=== PATIENT | male | born 1965 | race American Indian/Alaskan Native ===

== ENCOUNTER 2017-11-11 18:01 | Emergency (ER) | payer OTHER ==
[~2017-11-11] VITALS: Ht 177.8 cm; Wt 78.0 kg
[~2017-11-11 18:01] MED LIST: BACTRIM DS TAB1 EACH PO; BACTROBAN15 GM TP; CENTRUM ULTRA1 EAC1 PO; CIPRO500 MG PO; CLINDAMYCIN HC300 MG PO; DOXYCYCLINE MO100 M1 PO; FLUCONAZOLE100 MG PO; HYDROCODON-ACE1 EA10 PO; HYDROCODON-ACE1 EAC8 PO; IMODIUM A-1 MG/7.5 M PO; LANTUS SOL100 UNIT/1 SUB-Q; LANTUS100 UNIT/1; LEVAQUIN750 MG PO; LISINOPRIL10 MG PO; LOPERAMIDE2 MG PO; NOVOLOG FL100 UNIT/1 SUB-Q; NOVOLOG MI100 UNIT/1 SUB-Q; NOVOLOG100 UNITS/ SUB-Q; OXYCODONE HCL5 MG PO; SULFAMETHOXAZO1 EAC1 PO; TRAMADOL HCL50 MG PO; VITAMIN B122500 MCG PO; VITAMIN C500 M1 PO
== END 2017-11-11 18:21 | disposition left against medical advice (07) ==
LOC: ED 18:01
DX: M54.5 Low back pain (principal); Z53.21 Procedure and treatment not carried out due to patient leaving prior to being seen by health care provider; E11.9 Type 2 diabetes mellitus without complications; I10 Essential (primary) hypertension; Z90.89 Acquired absence of other organs; Z87.891 Personal history of nicotine dependence; Z88.0 Allergy status to penicillin; Z79.4 Long term (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; Z89.512 Acquired absence of left leg below knee
CPT/HCPCS: 99281

== ENCOUNTER 2018-01-13 07:40 | Emergency (ER) | payer OTHER ==
[~2018-01-13] VITALS: Ht 177.8 cm; Wt 78.5 kg
[2018-01-13] MEDS ORDERED: LANTUS100 UNITS/ SUB-Q (07:56)
--- OUTSIDE RECORDS SUMMARY | 2018-01-13 09:45 | XMS | Clinical Summary ---
Demographics + + + | Address | [address] | | | [place] [address] | + + + | Home Phone | | + + + | Preferred Language | Unknown | + + + | Marital Status | Single | + + + | Sikhism Affiliation | 1077 | + + + | Race | Unknown | + + + | Ethnic Group | Unknown | + + + Author + + + | Author | [facility] | + + + | Organization | [facility] | + + + | Address | Unknown | + + + | Phone | Unavailable | + + + Support + + +---------+ + | Name | Relationship | Address | Phone | + + +---------+ + | Katherine Duran | ECON | Unknown | | + + +---------+ + | Sarah Hanson | ECON | Unknown | | + + +---------+ + Care Team Providers + +------+ + | Care Distresser Name | Role | Phone | + +------+ + | Estrella Light PA-C | PP | | + +------+ + Allergies + + + + + + | Active Allergy | Reactions | Severity | Noted | Comments | | | | | Date | | + + + + + + | Penicillins | Hives | High | 03/04/20 | | | | | | 15 | | + + + + + + Current Medications + + +--------+---------+------+------+-------+ | Prescription | Sig. | Disp. | Refills | Star | End | Statu | | | | | | t | Date | s | | | | | | Date | | | + + +--------+---------+------+------+-------+ | insulin aspart | Inject 15 Units into | | | | | Activ | | (NOVOLOG FLEXPEN) | the skin 3 (three) | | | | | e | | 100 UNIT/ML | times daily before | | | | | | | injection | meals. | | | | | | + + +--------+---------+------+------+-------+ | insulin glargine | Inject 20 Units into | | | | | Activ | | (LANTUS SOLOSTAR) | the skin nightly. | | | | | e | | 100 UNIT/ML | | | | | | | | injection | | | | | | | + + +--------+---------+------+------+-------+ | loperamide | Take 2 mg by mouth 4 | | | | | Activ | | (IMODIUM) 2 MG | (four) times daily | | | | | e | | capsule | as needed for | | | | | | | | Diarrhea. | | | | | | + + +--------+---------+------+------+-------+ | lisinopril | Take 1 tablet by | 30 | 11 | 09/0 | | Activ | | (ZESTRIL) 20 MG | mouth daily. | tablet | | 7/20 | | e | | tablet | | | | 16 | | | + + +--------+---------+------+------+-------+ | sildenafil | Take 1 tablet by | 10 | 11 | 09/0 | | Activ | | (VIAGRA) 50 MG | mouth as needed for | tablet | | 7/20 | | e | | tablet | Erectile | | | 16 | | | | | Dysfunction. | | | | | | + + +--------+---------+------+------+-------+ Active Problems + + + | Problem | Noted Date | + + + | Cellulitis and abscess of foot | 12/15/2016 | + + + | Osteomyelitis (HCC) | 12/15/2016 | + + + | Essential hypertension | 03/04/2015 | + + + | Type II diabetes mellitus, uncontrolled | 03/04/2015 | + + + Family History + + +------+ + | Medical History | Relation | Name | Comments | + + +------+ + | Diabetes type II | Maternal | | | | | Grandfath | | | | | er | | | + + +------+ + + +------+--------+ + | Relation | Name | Status | Comments | + +------+--------+ + | Maternal Grandfather | | | | + +------+--------+ + Social History + +-------+ +--------+------+ | Tobacco Use | Types | Packs/Day | Years | Date | | | | | Used | | + +-------+ +--------+------+ | Never Smoker | | | | | + +-------+ +--------+------+ + +---+---+---+ | Smokeless Tobacco: | | | | | Never Used | | | | + +---+---+---+ + + +---------+ + | Alcohol Use | Drinks/We | oz/Week | Comments | | | ek | | | + + +---------+ + | No | | | | + + +---------+ + + + + | Sex Assigned at | Date Recorded | | | | + + + | Not on file | | + + + Last Filed Vital Signs + + + + | Vital Sign | Reading | Time Taken | + + + + | Blood Pressure | 134/88 | 12/20/2016 11:44 AM PDT | + + + + | Pulse | 84 | 12/20/2016 11:44 AM PDT | + + + + | Temperature | 37 C (98.6 F) | 12/20/2016 11:44 AM PDT | + + + + | Respiratory Rate | 16 | 12/20/2016 11:44 AM PDT | + + + + | Oxygen Saturation | 98% | 12/20/2016 11:44 AM PDT | + + + + | Inhaled Oxygen | - | - | | Concentration | | | + + + + | Weight | 88.5 kg (195 lb 1.7 | 12/19/2016 3:58 AM PDT | | | oz) | | + + + + | Height | 177.8 cm (5' 10") | 12/15/2016 3:39 AM PDT | + + + + | Body Mass Index | 27.99 | 12/19/2016 3:58 AM PDT | + + + + Plan of Treatment + + + + + | Health Maintenance | Due Date | Last Done | Comments | + + + + + | Diabetic Eye Exam | | | | | | 7 | | | + + + + + | Diabetic Foot Exam | | | | | | 7 | | | + + + + + | Microalbumin | | | | | Screening | 7 | | | + + + + + | Vaccine: | | | | | Dtap/Tdap/Td (1 - | 6 | | | | Tdap) | | | | + + + + + | Vaccine: | | | | | Pneumococcal 19-64 | 6 | | | | (PPSV23 only) Medium | | | | | Risk (1 of 1 - | | | | | PPSV23) | | | | + + + + + | Statin Therapy | | | | | (optimal intensity) | 6 | | | + + + + + | Hemoglobin A1c | | 12/15/2016 | | | | 7 | | | + + + + + | Colon Cancer | | | | | Screening | 7 | | | | (Colonoscopy) | | | | + + + + + | Vaccine: Influenza | | | | | (Season Ended) | 8 | | | + + + + + Results Not on filefrom Last 3 Months Insurance + +--------+ +------+-------+ + | Payer | Benefi | Subscriber | Type | Phone | Address | | | t Plan | ID | | | | | | / | | | | | | | Group | | | | | + +--------+ +------+-------+ + | MEDICAID | [place] | xxxxxxxx | | | [address] | | | N | | | | [place] | | | [place] | | | | [address] | | | INSTRUCTIONAL SUPPORT TECHNICIAN | | | | | + +--------+ +------+-------+ + | [employer] | YELLOW | xxxxxx | | | | | PLANS | [place] | | | | | + +--------+ +------+-------+ + + +--------+ +--------+ + + | Guarantor Name | Accoun | Relation to | Date | Phone | Billing Address | | | t Type | Patient | of | | | | | | | | | | + +--------+ +--------+ + + | KULDIP MC | Person | Self [birth year] | Home: | [address] | | | al/Fam | | [phone] | [phone] | [place] | | | vikas | | | [phone] | [phone] | + +--------+ +--------+ + +
--- OUTSIDE RECORDS SUMMARY | 2018-01-13 09:45 | XMS | Clinical Summary ---
Demographics + + + | Address | [address] | | | [place] [address] | + + + | Home Phone | | + + + | Preferred Language | Unknown | + + + | Marital Status | Single | + + + | Samaritan Affiliation | 1077 | + + + | Race | Unknown | + + + | Ethnic Group | Unknown | + + + Author + + + | Author | [facility] | + + + | Organization | [facility] | + + + | Address [...] Team Providers + +------+ + | Care Anchorman Name | Role | Phone | + [...] | | [place] | | | | [address] | | | MEDICAL SCHEDULER | | | | | + +--------+ +------+-------+ + | [facility] | YELLOW | xxxxxx | | [...] | Self | [birth year] | Home: | [address] | | | al/Fam | | [phone] | [phone] | [place] | | | [place] | | | [phone] | + +--------+ +--------+ + +
--- NOTE | 2018-01-13 23:30 | EKG ---
[facility] [address] [facility] [place] [address] Signed Sinus tachycardia Right axis deviation T wave abnormality, consider inferior ischemia Abnormal ECG No previous ECGs available Confirmed by PRIYANKA TAYLOR MD ([id number]) on 01/13/2018 11:29:46 PM Electronically Signed By: PRIYANKA TAYLOR MD 01/13/18 2330 PATIENT NAME: JO ANN MC Electrocardiogram DATE OF : 69 PHYSICIAN: PRIYANKA TAYLOR MD REPORT #: [id number] REPORT IS CONFIDENTIAL AND NOT TO BE RELEASED WITHOUT AUTHORIZATION
== END 2018-01-13 10:54 | disposition short-term general hospital (02) ==
LOC: ED 07:40
DX: I21.4 Non-ST elevation (NSTEMI) myocardial infarction (principal); E11.9 Type 2 diabetes mellitus without complications; I10 Essential (primary) hypertension; Z87.891 Personal history of nicotine dependence; Z88.0 Allergy status to penicillin; Z79.4 Long term (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
CPT/HCPCS: 71045; 80053; 83690; 84484; 85025; 85610; 93005; 93010; 96372; 96374; 99285; J1650; J2270; J7040

== ENCOUNTER 2018-03-13 22:27 | Inpatient (IN) | payer OTHER ==
[~2018-03-13] VITALS: Ht 177.8 cm; Wt 73.9 kg
[~2018-03-13 22:27] MED LIST changes: +LANTUS100 UNITS/ SUB-Q
[2018-03-13] MEDS ORDERED: LISINOPRIL5 MG PO (23:35)
--- NOTE | 2018-03-14 05:15 | NUR ---
PATIENT TO UNIT VIA STRETCHER, REQUIRED MINIMAL ASSISTANCE WITH TRANSFER TO BED. RESTING IN BED WITH EYES CLOSED. DENIES PAIN AT THIS TIME. ASSESSMENT DONE, VITALS STABLE. PATIENT DENIES NEEDS AT THIS TIME. CALL LIGHT WITHIN REACH.
--- NOTE | 2018-03-14 07:52 | NUR ---
DR. TAYLOR NOTIFIED OF MAGNESIUM LEVLE OF 1.3 THIS AM. ORDER REC'D FOR IV MAGNESIUM REPLACEMENT.
--- NOTE | 2018-03-14 08:40 | NUR ---
PATIENT SLEEPING UPON INITIAL ASSESSMENT AND DIFFICULT TO AWAKEN. PT FINALLY AWAKENS APPROPRIATELY AND IS RESPONSIVE TO THIS RN. PT IS PLEASANT, ONCE HE IS AWAKE. BREAKFAST ORDERED FOR PATIENT. VITALS AND ASSESMENT COMPLETE. HR NOTED TO BE TACHYCARDIC, RANGING FROM 105-110. SP02 IS 100% ON ROOM AIR. PT DENIES PAIN OR SHORTNESS OF BREATH AT THIS TIME. STOOL SAMPLE NEEDED. IV MAG AND IV FLAGYL STARTED. PLAN OF CARE DISCUSSED WITH PATIENT. PT REMAINS IN ISOLATION FOR C-DIFF PRECAUTIONS. CALL LIGHT WITHIN REACH. CONTINUE TO MONITOR.
--- NOTE | 2018-03-14 10:07 | NUR ---
PATIENT RESTING AT THIS TIME. PT ATE 100% OF HIS BREAKFAST AND FALLS BACK TO SLEEP. PT NOTES THAT HE NORMALLY DOES NOT AWAKEN UNTIL LATE MORNING. SP02 97% ON ROOM AIR. CONTINUE TO MONITOR.
--- NOTE | 2018-03-14 11:34 | NUR ---
PATIENT ASKED IF HE WOULD STAND AT BEDSIDE TO VOID. PT REFUSING TO NEED TO VOID AT THIS TIME. PATIENT TOLD THAT IF HE WERE NOT TO VOID BY 1400, HE WOULD NEED TO STAND AND TRY. PT VOIDED 700 ML IN ER BETWEEN THE HOURS OF [phone]. HEART RATE CURRENTLY 95 AND LAST BP 125/77. PT STATES HE IS OVERALL TIRED AND WANTS TO SLEEP. PT DENIES WANTING LUNCH AT THIS TIME. REQUESTED PATIENT TO CALL WHEN HE IS READY TO ORDER FOOD. BLOOD SUGAR TO BE CHECKED AT 1200. ASSESSMENT OTHERWISE UNCHANGED.
--- NOTE | 2018-03-14 14:29 | NUR ---
UPDATED DR. TAYLOR ON PATIENT'S STATUS. ORDER REC'D TO TRANSFER PATIENT TO MED/SURG. PT TO TRANSFER TO ROOM 125. PT WILL SHOWER IN NEW ROOM. PT'S SIGNIFICANT OTHER IN ROOM WITH PATIENT. PT STILL NEEDS TO PROVIDE A STOOL SAMPLE. CONTINUE TO MONITOR.
--- NOTE | 2018-03-14 15:00 | NUR ---
PT WAS SITTING ON SIDE OF BED, WITH HIS SIG. OTHER PRESENT. PT STATED HE FELT BETTER, AND THAT HE HAD NO PAIN AT THE MOMENT. WE TALKED OF HIS SON-SVETLANA PORRAS. PT STATED THAT HE WILSHES HE WOULD STAY IN BETTER CONTACT, HE HASN'T SEEN HIM FOR A WHILE. I EXTENDED A BLESSING, WILL FOLLOW NEEDED
[2018-03-14] MEDS ORDERED: PROBIOTIC1 EAC1 PO (15:02)
--- NOTE | 2018-03-14 15:07 | NUR ---
Medications reconciled at admission by pharmacist through patient interview
--- NOTE | 2018-03-14 15:29 | NUR ---
REPORT GIVEN TO MAXX COBB ON MED/SURG. ALL BELONGINGS WILL BE TAKEN WITH PATIENT. PT TO TRANSFER IN BED AND SHOWER ON MED/SURG. PT NOT TRANSFERRING ON TELE.
--- NOTE | 2018-03-14 15:30 | NUR ---
PT ARRIVED TO FLOOR VIA BED. ALERT AND ORIENTED, DENIES PAIN, NAUSEA, OR OTHER CONCERNS. LEFT BKA STUMP WITHOUT ANY BREAKDOWN, SKIN GROSSLY INTACT. PT DENIES TINGLING OR NUMBNESS ANYWHERE. FAMILY AT BEDSIDE. BOTH IV SITES FLUSH WELL, DRESSING CDI. CALL LIGHT WITHIN REACH.
--- NOTE | 2018-03-14 17:40 | NUR ---
PT SITTING UP IN BED EATING DINNER. SHOWERED PRIOR TO DINNER WITH ASSISTANCE FROM FAMILY. DENIES NEEDS OR CONCERNS AT THIS TIME. IV INFUSING WNL. CALL LIGHT WITHIN REACH.
--- NOTE | 2018-03-14 17:50 | NUR ---
PATIENT'S FAMILY MEMBER ASSISTED PATIENT UP TO SHOWER AND BACK TO BED. PATIENT SITTING UP IN BED EATING DINNER, CALL LIGHT IN REACH. NO OTHER NEEDS AT THIS TIME.
--- NOTE | 2018-03-14 20:30 | NUR ---
PATIENT RESTING QUIETLY, EYES CLOSED, RESPIRATIONS EVEN AND REGULAR. PATIENTS GIRLFRIEND SITTING AT BEDSIDE. TOOK OUT PATIENT'S DINNER TRAY. PATIENT ATE 80%. CALL LIGHT IN REACH.
--- NOTE | 2018-03-14 22:16 | NUR ---
VITALS AND I&OS DONE AND CHARTED. BEDSIDE TABLE AND CALL LIGHT WITHIN REACH. PT ASKED FOR A SAND BOX LUNCH. I WILL TAKE IT TO HIM WHEN IT GETS TO THE FLOOR.
--- NOTE | 2018-03-15 00:45 | NUR ---
PATIENT'S GIRLFRIEND CAME TO THE NURSES DESK TO LET US KNOW PATIENT HAD DIARRHEA. PATIENT SITTING IN BED WITH LARGE AMOUNT OF LIQUID STOOL IN THE BED. PATIENT HELPED INTO THE BATHROOM AND RINSED OFF WITH SHOWER. LINEN CHANGED, PATIENT BACK TO BED WITH ATTENDS ON, AND STOOL SAMPLE SENT TO LAB. PATIENT'S UNDERWEAR AND SPORT SHORTS THROWN AWAY AT PATIENT'S REQUEST, THIS WAS ALSO HEARD BY MARY GATES. PATIENT NOW RESTING QUIETLY.
--- NOTE | 2018-03-15 02:01 | NUR ---
PATIENT RESTING QUIETLY, EYES CLOSED, RESPIRATIONS EVEN AND REGULAR. CALL LIGHT IN REACH.
--- NOTE | 2018-03-15 04:00 | NUR ---
PATIENT RESTING QUIETLY. RESPIRATIONS REGULAR AND EVEN. PATIENT'S GIRLFRIEND AT BEDSIDE AND CALL LIGHT IN REACH.
--- NOTE | 2018-03-15 07:00 | NUR ---
PATIENT HAS HAD NO C/O PAIN THE ENTIRE SHIFT. PATIENT HAD ONE EPISODE OF LIQUID STOOL INCONTINENCE IN THE BED AND WAS WASHED UP IN THE SHOWER AND LINENS CHANGED, AND ATTENDS PUT IN PLACE. SECOND EPISODE OF DIARRHEA PATIET WAS ABLE TO MAKE IT TO THE COMMODE. PATIENT VOIDING FINE USING THE URINAL. BOTH OF PATIENT'S IV'S FLUSH WELL AND PATIENT IS TAKING IN GOOD PO INTAKE AND OF FLUIDS AND SOLID FOOD. PM BLOOD SUGAR 118 AND DID NOT NEED COVERAGE. PATIENT'S GIRLFRIEND HAS REMAINED WITH HIM THROUGH THE NIGHT. BOWEL TONES ACTIVE AND LUNGS ARE CLEAR.
--- NOTE | 2018-03-15 07:52 | NUR ---
DID PATIENT'S BLOOD SUGAR CHECK. ORDERED HIS BREAKFAST. NOW IS RESTING. CAREGIVER IN ROOM SLEEPING.
--- NOTE | 2018-03-15 09:00 | NUR ---
PT IS IN BED AND AGITATED WHEN ASKED QUESTIONS. PT DOES NOT WANT CARE THIS MORNING. NO APPARENT DISTRESS, MEDICATIONS TAKEN WITH SOME RESISTANCE. ENCOURAGED PT TO EAT THIS AM DUE TO LONG ACTING INSULIN GIVEN.
[2018-03-15] MEDS ORDERED: METRONIDAZOLE500 MG PO (09:29)
--- NOTE | 2018-03-15 10:51 | NUR ---
TOOK OUT PATIENT'S IVS. HE IS GETTING DRESSED CAREGIVER IS IN ROOM. AFTER HE IS READY I WILL TAKE HIM OUT TO HIS CAR.
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
== END 2018-03-15 11:13 | disposition home or self-care (01) | DRG 872 ==
LOC: ED 22:27 → CCU 03-14 04:37 → MS 03-14 15:35
PROVIDERS: ADMIT Internal Medicine
DX: A41.9 Sepsis, unspecified organism (principal); A04.9 Bacterial intestinal infection, unspecified; N17.9 Acute kidney failure, unspecified; E87.5 Hyperkalemia; E80.6 Other disorders of bilirubin metabolism; E11.65 Type 2 diabetes mellitus with hyperglycemia; E83.42 Hypomagnesemia; I10 Essential (primary) hypertension; R82.71 Bacteriuria; Z88.0 Allergy status to penicillin; Z91.19 Patient's noncompliance with other medical treatment and regimen; Z89.512 Acquired absence of left leg below knee; Z79.4 Long term (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; Z79.899 Other long term (current) drug therapy
CPT/HCPCS: 36415; 74176; 80053; 81001; 82010; 83036; 83605; 83690; 83735; 85025; 87040; 87045; 87046; 87077; 87088; 87177; 87186; 87205; 87209; 87493; 96361; 96374; 96375; 99285; J0696; J1650; J1815; J2405; J3475; J7030

== ENCOUNTER 2019-03-29 06:11 | Emergency (ER) | payer OTHER ==
[~2019-03-29] VITALS: Ht 177.8 cm; Wt 81.7 kg
[~2019-03-29 06:11] MED LIST changes: +CEROVITE SENIO1 EACH PO; +FLECTOR1 EACH TOP; +GLUCOSE BITS1 GM PO; +LEVOFLOXACIN500 MG PO; +LISINOPRIL5 MG PO; +LO-DOSE ASPIRIN81 MG PO; +METRONIDAZOLE500 MG PO; +PRINIVIL10 MG PO; +PROBIOTIC1 EAC1 PO
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
[2019-03-29] MEDS ORDERED: CEPHALEXIN500 MG PO (06:35)
[2019-03-29] MEDS ORDERED: BACTRIM DS TAB1 EACH PO (06:35)
== END 2019-03-29 06:49 | disposition home or self-care (01) ==
LOC: ED 06:11
DX: S00.86XA Insect bite (nonvenomous) of other part of head, initial encounter (principal); I10 Essential (primary) hypertension; E11.36 Type 2 diabetes mellitus with diabetic cataract; Z87.891 Personal history of nicotine dependence; Z88.0 Allergy status to penicillin; Z79.899 Other long term (current) drug therapy; Z79.4 Long term (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; W57.XXXA Bitten or stung by nonvenomous insect and other nonvenomous arthropods, initial encounter
CPT/HCPCS: 99281; Q0163

== ENCOUNTER 2019-07-22 09:30 | Day surgery (SDC) | payer OTHER ==
[~2019-07-22] VITALS: Ht 177.8 cm; Wt 81.7 kg
[~2019-07-22 09:30] MED LIST changes: +CEPHALEXIN500 MG PO
[2019-07-22] MEDS ORDERED: HYDROCODON-ACE1 EA10 PO (12:19)
--- NOTE | 2019-07-22 16:05 | EKG ---
[facility] [address] [facility] [place] [address] Signed Sinus rhythm with frequent premature ventricular complexes Otherwise normal ECG When compared with ECG of 03-JUN-2018 20:19, premature ventricular complexes are now present Vent. rate has decreased BY 42 BPM Criteria for Septal infarct are no longer present Confirmed by MICHELLE BE DO ([id number]) on 07/22/2019 4:05:17 PM Electronically Signed By: MICHELLE BE DO 07/22/19 1605 PATIENT NAME: JO ANN MC NUNO Electrocardiogram DATE OF : 69 PHYSICIAN: MICHELLE BE DO REPORT #: [id number] REPORT IS CONFIDENTIAL AND NOT TO BE RELEASED WITHOUT AUTHORIZATION
--- NOTE | 2019-07-23 07:35 | OR ---
[facility] [address] [place], [place] [address] Signed DATE OF OPERATION: 07/22/2019 SURGEON: Payton Vines MD PREOPERATIVE DIAGNOSIS: Decubitus ulcer, left fibular head. POSTOPERATIVE DIAGNOSIS: Decubitus ulcer, left fibular head. PROCEDURE PERFORMED: Debridement and excision of ulcer with debridement of skin, subcutaneous tissue, and bone. GROUNDS MAINTENANCE SUPERVISOR: Estrella Mills PA-C. ANESTHESIA: General. TOURNIQUET TIME: 20 minutes. BRIEF HISTORY: Kuldip is a 54-year-old severe diabetic with history of a left BKA. His prosthesis was causing pressure over the fibular head and he ultimately developed an ulcer that drained. Extensive nonoperative treatment was attempted without substantial relief. The wound did not heal. He was unable to wear his prosthesis secondary to pain and continued drainage. Risks and benefits of operative debridement were discussed with him. We discussed excising the skin ulcer underlying soft tissue and perhaps some of the fibular head to cause this pressure. He elected to proceed. DESCRIPTION OF PROCEDURE: Once consent was obtained, he was taken to the operating room. After adequate anesthesia, he was placed on operating room table. All downside pressure points were well padded. A well-padded proximal thigh tourniquet was placed and the leg was prepped and draped in a standard sterile fashion. Leg was exsanguinated using Esmarch bandage. Tourniquet was inflated to 250 mmHg. An elliptical incision was then designed around the ulcer itself and extended about 2 cm proximal and distally. This was taken through skin, subcutaneous tissue, and the ulcer was incised in total. Deep cultures were taken Electronically Signed By: PAYTON VINES MD 07/23/19 0735 PATIENT NAME: KULDIP MC OPERATIVE REPORT DATE OF : 69 REPORT #: [id number] PHYSICIAN: PAYTON VINES MD PCP: JUDY GUTIÉRREZ REPORT IS CONFIDENTIAL AND NOT TO BE RELEASED WITHOUT AUTHORIZATION [facility] [address] [place], [place] [address] Signed and some soft amorphous tissue. Underlying scar over the fibular head was completely intact and I saw no tracking down to the bone. We did excise this scar base. No bursa was countered at all. The fibular head was then identified and the periosteum was incised longitudinally. This was then elevated anteriorly and posteriorly. Care was taken to stay completely away from the peroneal nerve. The small osteotomes were then used to remove about 3 mm of bone laterally. This was then smoothed using the rongeur and it was packed with bone wax. Once this was accomplished, the wound was copiously irrigated with povidone-iodine dilute solution followed by normal saline. Periosteum was then closed back over the fibular head utilizing 3-0 Monocryl. The skin and subcutaneous tissue were then closed using large 2-0 nylon sutures. This was done using horizontal mattress sutures. The bone was then dressed with a SAMIA wound VAC dressing and Abelardo wrap. He tolerated the procedure well. All sponge, needle, and instrument counts were correct. Payton Vines MD BA/MODL /[id number] Copies: ~ Electronically Signed By: PAYTON VINES MD 07/23/19 0735 PATIENT NAME: KULDIP MC OPERATIVE REPORT DATE OF : 69 REPORT #: [id number] PHYSICIAN: PAYTON VINES MD PCP: JUDY GUTIÉRREZ REPORT IS CONFIDENTIAL AND NOT TO BE RELEASED WITHOUT AUTHORIZATION
== END 2019-07-22 18:05 | disposition home or self-care (01) ==
LOC: OPS 09:30 → DS 09:30 → OPS 13:30 → DS 13:30 → OPS 18:05
PROVIDERS: Specialist
PROC: 0QBK0ZZ Excision of Left Fibula, Open Approach (ICD-10-PCS; principal; 2019-07-22 13:30)
DX: L89.899 Pressure ulcer of other site, unspecified stage (principal); E11.51 Type 2 diabetes mellitus with diabetic peripheral angiopathy without gangrene; I10 Essential (primary) hypertension; Z88.0 Allergy status to penicillin; Z79.4 Long term (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; Z79.899 Other long term (current) drug therapy; Z87.891 Personal history of nicotine dependence
CPT/HCPCS: 00400; 80053; 83036; 85025; 85651; 86140; 87070; 87075; 87205; 93005; 93010; J0330; J0690; J1100; J1720; J1885; J2250; J2405; J2704; J2765; J3010; J7120

== ENCOUNTER 2019-08-11 16:16 | Emergency (ER) | payer OTHER ==
[~2019-08-11] VITALS: Ht 177.8 cm; Wt 81.7 kg
--- OUTSIDE RECORDS SUMMARY | ~2019-08-11 | XMS | Encounter Summary ---
Demographics + + + | Address | [address] | | | [place] [address] | + + + | Home Phone | | + + + | Preferred Language | Unknown | + + + | Marital Status | Single | + + + | Hinduism Affiliation | 1077 | + + + | Race | Unknown | + + + | Ethnic Group | Unknown | + + + Author + + + | Author | [facility] | | | and [place] | + + + | Organization | [facility] | | | [...] Team Providers + +------+ + | Care Civil Engineer In Training Name | Role | Phone | + [...] antibody | [address] [place], | | | | | positive | [place], [place] | [place] [address] | | | | | Chronic | [address] [place] | [place], | | | | | diarrhea | [place], [place] | [place] [address] | | | | | Procedures | [address] | Phone: | | | | | [place] | Phone: | [phone] | | | | | COLONOSCOPY | [phone] | Fax: | | | | | FLX DX | Fax: | [phone] | | | | | W/COLLJ SPEC | [phone] | | | | | | WHEN PFRMD | | | | | | | [place] | | | | | | | COLONOSCOPY | | | | | | | W/BIOPSY | | | | | | | SINGLE/MULTI | | | | | | | PLE [place] | | | | | | | COLSC FLX | | | | | | | W/RMVL OF | | | | | | | TUMOR POLYP | | | | | | | LESION SNARE | | | | | | | TQ [place] | | | | | | | ESOPHAGOGAST | | | | | | | RODUODENOSCO | | | | | | | PY TRANSORAL | | | | | | | DIAGNOSTIC | | | | | | | [place] EDG | | | | | | [...] 2015 | | GASTROENTEROLOGY | [address], [place] | (egd/colon ) | | | | [address] [place] | [address] [place], [place] | | | | | [address] [place], [place] | [address] | | | | | [address] | | | | | | [phone] | | | +--------+ + + + [...]
--- OUTSIDE RECORDS SUMMARY | ~2019-08-11 | XMS | Encounter Summary ---
Demographics + + + | Address | [address] | | | [place] [address] | + + + | Home Phone | | + + + | Preferred Language | Unknown | + + + | Marital Status | Single | + + + | Baptism Affiliation | 1077 | + + + | Race | Unknown | + + + | Ethnic Group | Unknown | + + + Author + + + | Author | [facility] | | | and [place] | + + + | Organization | [facility] | | [...] Team Providers + +------+ + | Care Manager Php Name | Role | Phone | + +------+ + PCP | Unavailable | + +------+ + Encounter Details +--------+ + + + + | Date | Type | Department | Care Team | Description | +--------+ + + + + | 05/21/ | Hospital | [facility] | Unknown, | | | 1992 | Encounter | MED CTR XRAY [address] | [place] | | | | | [place] | [phone] | | | | | [place] [address] | | | | | | [phone] | | | +--------+ + + + [...]
--- OUTSIDE RECORDS SUMMARY | ~2019-08-11 | XMS | Encounter Summary ---
Demographics + + + | Address | [address] | | | [place] [address] | + + + | Home Phone | | + + + | Preferred Language | Unknown | + + + | Marital Status | Single | + + + | Synagogue Affiliation | 1077 | + + + | Race | Unknown | + + + | Ethnic Group | Unknown | + + + Author + + + | Author | [facility] | | | and [place] | + + + | Organization | [facility] | | | [...] Team Providers + +------+ + | Care Supervisor Mechanic Boilermaking Name | Role | Phone | + +------+ + PCP | Unavailable | + +------+ + Encounter Details +--------+ + + + + | Date | Type | Department | Care Team | Description | +--------+ + + + + | 05/21/ | Hospital | [facility] | Unknown, | | | 1992 | Encounter | MED CTR XRAY [address] | [place] | | | | | [place] | [phone] | | | | | [place] [address] | | | | | | [phone] | | | +--------+ + + + [...]
--- OUTSIDE RECORDS SUMMARY | ~2019-08-11 | XMS | Encounter Summary ---
Demographics + + + | Address | [address] | | | [place] [address] | + + + | Home Phone | | + + + | Preferred Language | Unknown | + + + | Marital Status | Single | + + + | Jewish Affiliation | 1077 | + + + | Race | Unknown | + + + | Ethnic Group | Unknown | + + + Author + + + | Author | [facility] | | | and [place] | + + + | Organization | [facility] | | | and [...] Team Providers + +------+ + | Care Machine Guide Base Winder Name | Role | Phone | + +------+ + | Estrella Light PA-C | PCP | | + +------+ + Encounter Details +--------+ + + + + | Date | Type | Department | Care Team | Description | +--------+ + + + + | 12/14/ | Hospital | [facility] | [place], | Osteomyelitis of | | 2017 - | Encounter | [facility] | MD [address]avel [address] | foot, left, acute | | | | CARE FLOOR [address] | [address] | ([facility]); Uncontrolled | | 12/20/ | | [address] | [place] [address] | type 2 diabetes | | 2017 | | [place], [place] | [phone] | mellitus with | | | | [address] | | hyperglycemia, | | | | [phone] | | unspecified long | | | | | | term insulin use | | | | | | status ([facility]); Renal | | | | | | [...] 1933 Date of Service: 12/20/161538 Status: Addendum Supervisor Maintenance: Bunny Chaney MD (Physician) Related Notes: Original Note by Bunny Chaney MD (Physician) filed at 12/26/16 0644 [facility] Service: Hospitalist Physician Discharge Summary Patient ID: Kuldip Smith [id number] y.o. 1965 Admit date: 12/14/2016 Discharge [...] been approved, which should be given from [facility] ec until further approval from insurance. Also [...] up: Estrella Light PA-C [address] [place] [address] Rebeca Reza MD [address] [facility] [address] Schedule an appointment as soon as possible for a visit in 10 days Dictation and box blank machine feeder or software, [employer], used which may contain error for similar [...] - AMPUTATION; Surgeon: Walter Fernandez DPM; Location: [facility] MAIN OR; Service: Podiatry; Laterality: Left; [...] Management by Jenny Vaughan RN at 12/20/16 6119 Author: Jenny Vaughan RN Service: (none) Author Type: Registered Nurse Filed: 12/20/16 6887 Date of Service: 12/20/161538 Status: Signed Supervisor Maintenance: Jenny Vaughan RN (Registered Nurse) 1610 - Received call from [facility] stating they are now unable to accept pa tient due to a "freeze on admits". They are aware patient has been discharged and is en rou te to home. They are still unable to accept. Call placed to [facility] OPP rega rding need for services. They state pt will need to arrange wound care/dressing changes thr ough his PCP per insurance requirements. Voicemail left for Coby at [facility] to return call. Will need to call back in morning to schedule appointment as clinic is currently closed. onver ruben Transaction, Provider Unknown - 12/20/2016 3:39 PM PDT Case Management by Mirlande Prescott RN at 12/20/16 0815 Author: Mirlande Prescott RN Service: (none) Author Type: Registered Nurse Filed: 12/21/16 0808 Date of Service: 12/20/16 1539 Status: Signed Supervisor Maintenance: Mirlande Prescott RN (Registered Nurse) 0800: Tc to pt's PCP, Coby Light, with [facility], to updat e about [facility] not being able to admit pt. Coby states she and Charlotte will work on getting pt the appropriate wound vac care he needs, they are going to try and get pt into O P wound therapy with [facility] or maybe to OP in [place]. Coby states she will als o call [facility] as to when they can admit pt under their services. Maribel onver ruben Transaction, Provider Unknown - 12/20/2016 1:03 PM PDT Progress Notes by Rachael Molina RN at 12/20/16 1303 Author: Rachael Molina RN Service: Wound/Ostomy Care Author Type: Registered Nurse Filed: 12/20/16 1311 Date of Service: 12/20/16 1303 Status: Signed Supervisor Maintenance: Rachael Molina RN (Registered Nurse) Wound care in to switch patient out to portable wound vac unit. This is a sol vac on l oan from [facility]. Explained to patient when his insurance approves his home vac unit, that t his sol vac is to be returned via [employer]. Instructions given in detail, voiced candelaria frias. Photo taken of tracking number and faxed to Alicia [facility] rep. Instructions on how to use the [...] for further protection. Hospital vac dc'd in [facility] express: #[id number] Rachael Molina RN, ON 12/20/2016 1:10 PM onver ruben Transaction, Provider Unknown - 12/20/2016 11:34 AM PDT Case Management by Mirlande Prescott RN at 12/20/16 1134 Author: Mirlande Prescott RN Service: (none) Author Type: Registered Nurse Filed: 12/20/16 1459 Date of Service: 12/20/16 1134 Status: Addendum Supervisor Maintenance: Mirlande Prescott RN (Registered Nurse) Related Notes: Original Note by Mirlande Prescott RN (Registered Nurse) filed at 12/20/16 114 9 Per rounding with pt, he will be d/c home today. Pt states his mother will be providing tra nsportation home. Wound vac has been approved by [facility]. [facility] has been set up, and they have been notified about d/c, pt may not be able t o be admitted until . Pt's wound dressing is due Monday. Tc to Angie with wound care, it's not ideal that pt's dressing doesn't get changed until , but it is ok to wait. Dr Chaney was notified and agrees with plan. Tc to Coby [phone] and Charlotte [phone] with [facility]/mannie pickens nd left mssgs of pt's d/c Today. Faxed AVS to [facility] Maribel Iqra Mcgregor PT - 12/20/2016 10:07 AM PDTFormatting of this note might be different from th e original. Therapy Progress Note by Karina Zabala PT at 12/20/16 1007 Author: Karina Zabala PT Service: (none) Author Type: Physical Therapist Filed: 12/20/16 1037 Date of Service: 12/20/16 1007 Status: Signed Supervisor Maintenance: Karina Zabala PT (Physical Therapist) 12/20/16 1007 [...] (none) Author Type: Physical Therapist Filed: 12/19/16 7945 Date of Service: 12/19/166 Status: Signed Supervisor Maintenance: Natalia Marte PT (Physical Therapist) 12/19/16 1646 PT Last Visit PT Received On 12/19/16 Reason for Treatment Other (comment) (L foot osteomyelitis) Requires PT Follow Up Awaiting tx order Follow up PT Only? Yes (Assistive device assessment) Focus for Next Treatment Equipment Trial;Stair Training (bilateral axillary crutches and stair training) PT Eval/Reassessment Date 12/19/16 Assistance Required 1 person Political Science Faculty Member Needed No Home Environment Type of Home Home one story Home Exterior Layout 1-3 steps (2 JEISON) Home Interior Layout Lives on main level with bedroom/bathroom Bathroom Shower/Tub Tub/shower unit Bathroom Toilet Raised Bathroom Equipment Grab bars outside of shower/bath;Raised toilet seat Bathroom Accessibility Not accessible Home Equipment Cane single point;Crutches-axillary Prior Function Level of [place] Independent with ADLs;Independent with IADLs;Modified independent wi [...] Eval/Reassessment Date 12/19/16 Assistance Required 1 person Political Science Faculty Member Needed No Precautions LE Precaution(s) LLE Precautions/WB [...] Notes by Rebeca Reza MD at 12/19/16 3107 Author: Rebeca Reza MD Service: Infectious Disease Author Type: Physician Filed: 12/20/16 0639 Date of Service: 12/19/16 5403 Status: Signed Supervisor Maintenance: Rebeca Reza MD (Physician) [facility] Service: Infectious Disease Progress Note Hospital Day: [...] Dec 15 2016 9:30AM Referring Provider Line: [phone] ID: [id number] MRI foot left without contrast [[id number]] Impression 1. Recent amputation of the LEFT 4th toe. 2. No radiographic evidence of residual osteomyelitis in the remaining ossicles of the LEF T forefoot. 3. Moderately extensive vascular calcifications. X-ray foot left [[id number]] PROBLEM LIST Principal Problem: Osteomyelitis (HCC) Active [...] Date of Service: 12/19/16 1103 Status: Signed Supervisor Maintenance: Dell Archer DO (Physician) PROGRESS NOTE 12/19/2016 [...] 1103 Date of Service: 12/19/16914 Status: Addendum Supervisor Maintenance: Jenny Vaughan RN (Registered Nurse) Related Notes: Original Note by Jenny Vaughan RN (Registered Nurse) filed at 12/19/16 1 081 3210 - [facility]. She wi ll be following patient [...] accept patient. Face to face order faxed ([phone]) Charlotte [facility] RN [phone] Alicia with [facility] notified of wound vac placement. Auth form signed by hospitalist and faxed to Alicia. Lilly with [facility] Care notified of patient discharging on oral antibiotics. onver ruben Transaction, Provider Unknown - 12/18/2016 6:45 PM PDT Nurse Progress Note by Gerber Hay RN at 12/18/161844 Author: Gerber Hay RN Service: (none) Author Type: Registered Nurse Filed: 12/18/161847 Date of Service: 12/18/161844 Status: Signed Supervisor Maintenance: Gerber Hay RN (Registered Nurse) Pt resting [...] 12/18/16933 Date of Service: 12/18/16928 Status: Addendum Supervisor Maintenance: Dell Archer DO (Physician) Related Notes: Original [...] 12/18/16899 Date of Service: 12/18/16854 Status: Signed Supervisor Maintenance: Walter Fernandez DPM (Doctor of Podiatric Medicine) [facility] Service: Podiatry Progress Note Hospital Day: LOS: [...] home health care. Dr. David DPM in [place] take s care of this patient and [...] 12/18/16845 Date of Service: 12/18/16845 Status: Signed Supervisor Maintenance: Destini Vargas RPH (Pharmacist) Day 5 Vanco [...] 1108 Date of Service: 12/18/16820 Status: Signed Supervisor Maintenance: Rebeca Reza MD (Physician) [facility] Service: Infectious Disease Progress Note Hospital Day: [...] Dec 15 2016 9:30AM Referring Provider Line: [phone] ID: [id number] MRI foot left without contrast [[id number]] Impression 1. Recent amputation of the LEFT 4th toe. 2. No radiographic evidence of residual osteomyelitis in the remaining ossicles of the LEF T forefoot. 3. Moderately extensive vascular calcifications. X-ray foot left [[id number]] PROBLEM LIST Principal Problem: Osteomyelitis (HCC) Active [...] Note by Jihan Jacinto RPH at 12/17/16 6207 Author: Jihan Jacinto RPH Service: Pharmacy Author Type: Pharmacist Filed: 12/17/162246 Date of Service: 12/17/162246 Status: Signed Supervisor Maintenance: Jihan Jacinto RPH (Pharmacist) Clinical Pharmacy Note: [...] 12/17/161750 Date of Service: 12/17/161742 Status: Signed Supervisor Maintenance: Gerber Hay RN (Registered Nurse) Wound vac [...] Notes by Rebeca Reza MD at 12/17/16 8070 Author: Rebeca Reza MD Service: Infectious Disease Author Type: Physician Filed: 12/17/16 1702 Date of Service: 12/17/16 1510 Status: Addendum Supervisor Maintenance: Rebeca Reza MD (Physician) Related Notes: Original Note by Rebeca Reza MD (Physician) filed at 12/17/16 0048 [facility] Service: Infectious Disease Progress Note Hospital Day: [...] phlegmon/abscess at the 3rd and 4th MT. Margraita ramirez received IV clindamycin in the ER. [...] Dec 15 2016 9:30AM Referring Provider Line: [phone] ID: [id number] MRI foot left without contrast [[id number]] Impression 1. Recent amputation of the LEFT 4th toe. 2. No radiographic evidence of residual osteomyelitis in the remaining ossicles of the LEF T forefoot. 3. Moderately extensive vascular calcifications. X-ray foot left [[id number]] PROBLEM LIST Principal Problem: Osteomyelitis (HCC) Active [...] Doctor of Podiatric Medi cine Filed: 12/17/16 9383 Date of Service: 12/17/16 1406 Status: Signed Supervisor Maintenance: Walter Fernandez DPM (Doctor of Podiatric Medicine) [facility] Service: Podiatry Progress Note Hospital Day: LOS: [...] Note by Gerber Hay RN at 12/17/16 1319 Author: Gerber Hay RN Service: (none) Author Type: Registered Nurse Filed: 12/17/16 6856 Date of Service: 12/17/16 1144 Status: Signed Supervisor Maintenance: Gerber Hay RN (Registered Nurse) Pt had [...] Notes by Dell Archer DO at 12/17/16 1056 Author: Dell Archer DO Service: Hospitalist Author Type: Physician Filed: 12/17/16 1103 Date of Service: 12/17/16 1053 Status: Signed Supervisor Maintenance: Dell Archer DO (Physician) PROGRESS NOTE 12/17/2016 [...] 12/17/16834 Date of Service: 12/17/16834 Status: Signed Supervisor Maintenance: Destini Vargas RPH (Pharmacist) Day 4 Vanco [...] 12/17/168 Date of Service: 12/17/16307 Status: Signed Supervisor Maintenance: Jihan Jacinto RPH (Pharmacist) Clinical Pharmacy Note: [...] 12/16/161719 Date of Service: 12/16/161709 Status: Signed Supervisor Maintenance: Walter Fernandez DPM (Doctor of Podiatric Medicine) [facility] Service: Podiatry Progress Note Hospital Day: LOS: [...] Notes by Rebeca Reza MD at 12/16/16 3467 Author: Rebeca Reza MD Service: Infectious Disease Author Type: Physician Filed: 12/16/16 1606 Date of Service: 12/16/165 Status: Signed Supervisor Maintenance: Rebeca Reza MD (Physician) [facility] Service: Infectious Disease Progress Note Hospital Day: [...] Dec 15 2016 9:30AM Referring Provider Line: [phone] ID: [id number] MRI foot left without contrast [[id number]] Impression 1. Recent amputation of the LEFT 4th toe. 2. No radiographic evidence of residual osteomyelitis in the remaining ossicles of the LEF T forefoot. 3. Moderately extensive vascular calcifications. X-ray foot left [[id number]] PROBLEM LIST Principal Problem: Osteomyelitis (HCC) Active [...] Management by Jenny Vaughan RN at 12/16/16 9154 Author: Jenny Vaughan RN Service: (none) Author Type: Registered Nurse Filed: 12/16/16 8155 Date of Service: 12/16/16 2802 Status: Signed Supervisor Maintenance: Jenny Comfort, RN (Registered Nurse) 12/16/16 6085 Discharge Planning Evaluation Admitting Diagnosis osteomyelitis Readmission No Living Arrangements Parent Support Systems Parent;Family members Type of Residence Private residence House type House-1 story Steps to enter 2 Independent with ADL's Yes Independent with Mobility Yes Mental Status Oriented Prior functional status not employed, independent Power of Curriculum Specialist No Anticipated Discharge Plan Post Acute Care [...] PCP is: Estrella Light PA-C Patient's insurance: Medicare/[facility] Coverage concerns: None Medication coverage/concerns: None Community resources utilized / needed: TBD pending pt progress and treatment plan. Sascha garcia need home health services along with IV abx. Discussed with patient and he states und erstanding. Referral sent to [facility] for nursing services as patient lives in [place]. Options for home IV abx services provided to pt/family and they do not have a preference. Referral to [facility] will follow. Pt/family requested I notify Coby at the [facility] of pt status as she ar ranges services for them. Contacted Coby and provided current discharge plan. If there is a change in plan, Coby requests to be notified as she will continue to follow patient after discharge. She also states pt will be followed by their community health nurse (Charlotte ) who works alongside [facility]. Coby [facility] [phone] Assistance in transportation: Pt's family is able [...] Date of Service: 12/16/16 1012 Status: Signed Supervisor Maintenance: Dell Archer DO (Physician) PROGRESS NOTE 12/16/2016 [...] Date of Service: 12/15/16 1248 Status: Signed Supervisor Maintenance: Jenny Vaughan RN (Registered Nurse) Attempted to [...] 12/15/16405 Date of Service: 12/15/16405 Status: Signed Supervisor Maintenance: Jihan Jacinto RPH (Pharmacist) Clinical Pharmacy Note: [...] 12/15/16404 Date of Service: 12/15/16404 Status: Signed Supervisor Maintenance: Jihan Jacinto RPH (Pharmacist) Clinical Pharmacy Note: [...] | | | Fingerstick | performed at [facility] | | LAB | | | | [address];[place] | | | | | | [address] | | | | + + + [...] EXTERNAL | | | | performed at [facility];[address] | | LAB | | | | [address];[place], [place] | | | | | | [address] | | | | + + + [...] EXTERNAL | | | | performed at [facility];888 | K/uL | LAB | | | | [address];[place] | | | | | | [address] | | | | + + + + + + | RED CELL | 4.00 (L)Comment: Testing | 4.20 - 5.70 | EXTERNAL | | | COUNT | performed at [facility];[address] | M/uL | LAB | | | | [address];[place] | | | | | | [address] | | | | + + + + + + | Hgb | 11.6 (L)Comment: Testing | 13.2 - 17.0 | EXTERNAL | | | | performed at [facility];888 | g/dL | LAB | | | | [address];[place] | | | | | | [address] | | | | + + + + + + | Hematocrit, | 33.9 (L)Comment: Testing | 39.0 - 50.0 % | EXTERNAL | | | POC | performed at [facility];[address] | | LAB | | | | [address];[place] | | | | | | [address] | | | | + + + + + + | MCV | 84.7Comment: Testing | 80.0 - 100.0 fl | EXTERNAL | | | | performed at [facility];[address] | | LAB | | | | [address];[place] | | | | | | [address] | | | | + + + + + + | MCH | 28.9Comment: Testing | 27.0 - 34.0 pg | EXTERNAL | | | | performed at [facility];[address] | | LAB | | | | [address];[place] | | | | | | [address] | | | | + + + + + + | MCHC | 34.1Comment: Testing | 32.0 - 35.5 | EXTERNAL | | | | performed at [facility];888 | g/dL | LAB | | | | [address];[place] | | | | | | [address] | | | | + + + + + + | RDW-CV | 42.0Comment: Testing | 37 - 53 fl | EXTERNAL | | | | performed at [facility];[address] | | LAB | | | | [address];[place] | | | | | | [address] | | | | + + + + + + | Platelet | 392Comment: Testing | 150 - 400 K/uL | EXTERNAL | | | Count | performed at [facility];888 | | LAB | | | Plasma | [address];[place] | | | | | | [address] | | | | + + + + + + | MPV | 7.0Comment: Testing | fl | EXTERNAL | | | | performed at [facility];[address] | | LAB | | | | [address];[place] | | | | | | [address] | | | | + + + + + + | Differentia | MANUALComment: Testing | | EXTERNAL | | | l Type | performed at [facility];[address] | | LAB | | | | [address];[place] | | | | | | [address] | | | | + + + + + + | Segmented | 69Comment: Testing | % | EXTERNAL | | | Neutrophils | performed at [facility];888 | | LAB | | | Manual | [address];[place] | | | | | | [address] | | | | + + + + + + | Lymphocytes | 21Comment: Testing | % | EXTERNAL | | | Manual | performed at [facility];[address] | | LAB | | | | [address];[place] | | | | | | [address] | | | | + + + + + + | Monocytes | 4Comment: Testing | % | EXTERNAL | | | Manual | performed at [facility];[address] | | LAB | | | | [address];[place] | | | | | | [address] | | | | + + + + + + | Eosinophils | 6Comment: Testing | % | EXTERNAL | | | Manual | performed at [facility];[address] | | LAB | | | | [address];[place] | | | | | | [address] | | | | + + + + + + | Absolute | 5.08Comment: Testing | 1.90 - 7.40 | EXTERNAL | | | Neutrophils | performed at [facility];888 | K/uL | LAB | | | | [address];[place] | | | | | | [address] | | | | + + + + + + | Absolute | 1.55Comment: Testing | 1.00 - 3.90 | EXTERNAL | | | Lymphocytes | performed at [facility];888 | K/uL | LAB | | | | [address];[place] | | | | | | [address] | | | | + + + + + + | Absolute | 0.29Comment: Testing | 0.00 - 0.80 | EXTERNAL | | | Monocytes | performed at [facility];888 | K/uL | LAB | | | | [address];[place] | | | | | | [address] | | | | + + + + + + | Absolute | 0.44Comment: Testing | 0.00 - 0.50 | EXTERNAL | | | Eosinophils | performed at [facility];888 | K/uL | LAB | | | | [address];[place] | | | | | | [address] | | | | + + + + + + | RBC | NORMALComment: Testing | | EXTERNAL | | | Morphology | performed at [facility];[address] | | LAB | | | | [address];[place] | | | | | | [address] | | | | + + + [...] EXTERNAL | | | | performed at [facility];888 | | LAB | | | | [address];[place] | | | | | | [address] | | | | + + + [...] | | | Fingerstick | performed at [facility];[address] | | LAB | | | | [address];[place], [place] | | | | | | [address] | | | | + + + [...] | | | Fingerstick | performed at [facility];888 | | LAB | | | | [address];[place] | | | | | | [address] | | | | + + + [...] | | | Fingerstick | performed at [facility];[address] | | LAB | | | | [address];[place] | | | | | | [address] | | | | + + + [...] | | | Fingerstick | performed at [facility];[address] | | LAB | | | | [address];[place] | | | | | | [address] | | | | + + + [...] | | | Fingerstick | performed at [facility];[address] | | LAB | | | | [address];[place], [place] | | | | | | [address] | | | | + + + [...] | | | Fingerstick | performed at [facility];[address] | | LAB | | | | [address];[place] | | | | | | [address] | | | | + + + [...] | | | Fingerstick | performed at [facility];[address] | | LAB | | | | [address];[place], [place] | | | | | | [address] | | | | + + + [...] | | | Fingerstick | performed at [facility];[address] | | LAB | | | | [address];[place] | | | | | | [address] | | | | + + + [...] | EXTERNAL LAB | | performed at [facility];[address] [place] [address];[place] [address] TOXIN A | | | NEGATIVE Testing performed at | | | [facility];[address] [facility];[place] [address] C DIFF INTERPRETATION | | | Negative for toxigenic C.difficile. Testing performed at | | | [facility];[address] [place] [address];[place] [address] | | + + + + +---------+ [...] | | | Fingerstick | performed at [facility];[address] | | LAB | | | | [address];[place] | | | | | | [address] | | | | + + + [...] EXTERNAL | | | | performed at [facility], [address] | K/uL | LAB | | | | [address], | | | | | | [place] [address] | | | | + + + + + + | RED CELL | 3.92 (L)Comment: Testing | 4.20 - 5.70 | EXTERNAL | | | COUNT | performed at [facility], [address] | M/uL | LAB | | | | [address], | | | | | | [place] [address] | | | | + + + + + + | Hgb | 11.2 (L)Comment: Testing | 13.2 - 17.0 | EXTERNAL | | | | performed at [facility], [address] | g/dL | LAB | | | | [address], | | | | | | [place] [address] | | | | + + + + + + | Hematocrit, | 33.6 (L)Comment: Testing | 39.0 - 50.0 % | EXTERNAL | | | POC | performed at [facility], [address] | | LAB | | | | [address], | | | | | | [place] [address] | | | | + + + + + + | MCV | 85.9Comment: Testing | 80.0 - 100.0 fl | EXTERNAL | | | | performed at [facility], [address] | | LAB | | | | [address], | | | | | | [place] [address] | | | | + + + + + + | MCH | 28.7Comment: Testing | 27.0 - 34.0 pg | EXTERNAL | | | | performed at [facility], [address] | | LAB | | | | [address], | | | | | | [place] [address] | | | | + + + + + + | MCHC | 33.4Comment: Testing | 32.0 - 35.5 | EXTERNAL | | | | performed at [facility], [address] | g/dL | LAB | | | | [address], | | | | | | [place] [address] | | | | + + + + + + | RDW-CV | 41.1Comment: Testing | 37 - 53 fl | EXTERNAL | | | | performed at [facility], [address] | | LAB | | | | [address], | | | | | | [place] [address] | | | | + + + + + + | Platelet | 341Comment: Testing | 150 - 400 K/uL | EXTERNAL | | | Count | performed at [facility], [address] | | LAB | | | Plasma | [address], | | | | | | [place] [address] | | | | + + + + + + | MPV | 7.6Comment: Testing | fl | EXTERNAL | | | | performed at [facility], [address] | | LAB | | | | [address], | | | | | | [place] [address] | | | | + + + + + + | Differentia | AUTOMATEDComment: | | EXTERNAL | | | l Type | Testing performed at | | LAB | | | | [facility], [address] | | | | | | [place] | | | | | | [address] | | | | + + + + + + | % Segmented | 76.22Comment: Testing | % | EXTERNAL | | | | performed at [facility], [address] | | LAB | | | Neutrophils | [address], | | | | | | [place] [address] | | | | + + + + + + | % | 12.04Comment: Testing | % | EXTERNAL | | | Lymphocytes | performed at [facility], [address] | | LAB | | | | [address], | | | | | | [place] [address] | | | | + + + + + + | % Monocytes | 6.15Comment: Testing | % | EXTERNAL | | | | performed at [facility], [address] | | LAB | | | [address], | | | | | | [place] [address] | | | | + + + + + + | % | 4.73Comment: Testing | % | EXTERNAL | | | Eosinophils | performed at [facility], [address] | | LAB | | | | [address], | | | | | | [place] [address] | | | | + + + + + + | % Basophils | 0.86Comment: Testing | % | EXTERNAL | | | | performed at [facility], [address] | | LAB | | | | [address], | | | | | | [place] [address] | | | | + + + + + + | Absolute | 8.38 (H)Comment: Testing | 1.90 - 7.40 | EXTERNAL | | | Segmented | performed at [facility], [address] | [address]/u[address] | LAB | | | Neutrophils | [address], | | | | | | [place] [address] | | | | + + + + + + | Absolute | 1.32Comment: Testing | 1.00 - 3.90 | EXTERNAL | | | Lymphocytes | performed at [facility], [address] | K[address] | LAB | | | | [address], | | | | | | [place] [address] | | | | + + + + + + | Absolute | 0.68Comment: Testing | 0.00 - 0.80 | EXTERNAL | | | Monocytes | performed at [facility], [address] | K/uL | LAB | | | | [address], | | | | | | [place] [address] | | | | + + + + + + | Absolute | 0.52 (H)Comment: Testing | 0.00 - 0.50 | EXTERNAL | | | Eosinophils | performed at [facility], [address] | [address] | LAB | | | | [address], | | | | | | [place] [address] | | | | + + + + + + | Absolute | 0.10Comment: Testing | 0.00 - 0.10 | EXTERNAL | | | Basophils | performed at [facility], [address] | K/[address]L | LAB | | | | [address], | | | | | | [place] [address] | | | | + + + [...] | | | | [place] [address] | | | | + + + + + + | K | 3.8Comment: Testing | 3.5 - 4.9 | EXTERNAL | | | | performed at [facility], [address] | mmol/L | LAB | | | | [address], | | | | | | [place] [address] | | | | + + + + + + | Cl | 105Comment: Testing | 99 - 109 mmol/L | EXTERNAL | | | | performed at [facility], [address] | | LAB | | | | [address], | | | | | | [place] [address] | | | | + + + + + + | CO2 | 25Comment: Testing | 23 - 32 mmol/L | EXTERNAL | | | | performed at [facility], [address] | | LAB | | | | [address], | | | | | | [place] [address] | | | | + + + + + + | Anion Gap | 12Comment: Testing | 5 - 20 mmol/L | EXTERNAL | | | | performed at [facility], [address] | | LAB | | | | [address], | | | | | | [place] [address] | | | | + + + + + + | Glucose, | 236 (H)Comment: Testing | 65 - 99 mg/dL | EXTERNAL | | | Fasting | performed at [facility], [address] | | LAB | | | | [address], | | | | | | [place] [address] | | | | + + + + + + | BUN | 6 (L)Comment: Testing | 8 - 25 mg/dL | EXTERNAL | | | | performed at [facility], [address] | | LAB | | | | [address], | | | | | | [place] [address] | | | | + + + + + + | Creatinine | 0.9Comment: Testing | 0.70 - 1.30 | EXTERNAL | | | | performed at [facility], [address] | mg/dL | LAB | | | | [address], | | | | | | [place] [address] | | | | + + + + + + | BUN/Creatin | 7Comment: Testing | | EXTERNAL | | | ine Ratio | performed at [facility], [address] | | LAB | | | | [address], | | | | | | [place] [address] | | | | + + + + + + | Calcium | 8.3 (L)Comment: Testing | 8.5 - 10.5 | EXTERNAL | | | | performed at [facility], [address] | mg/dL | LAB | | | | [address], | | | | | | [place] [address] | | | | + + + [...] Man, | | | | | | [place] [address] | | | | + + + [...] | | | Fingerstick | performed [place] [facility] | | LAB | | | | [address];[place] | | | | | | [address] | | | | + + + [...] | | | | | performed at [facility];[address] | | | | | | [address];[place] | | | | | | [address] | | | | + + + [...] | | | Fingerstick | performed at [facility];[address] | | LAB | | | | [address];[place], [place] | | | | | | [address] | | | | + + + [...] | | | Fingerstick | performed at [facility];[address] | | LAB | | | | [address];[place] | | | | | | [address] | | | | + + + [...] | | | Fingerstick | performed at [facility];[address] | | LAB | | | | [place] [address];[place] | | | | | | [address] | | | | + + + [...] [place] | | | | | | [address] | | | | + + + + + + | RED CELL | 4.13 (L)Comment: Testing | 4.20 - 5.70 | EXTERNAL | | | COUNT | performed at [facility], [address] | M/uL | LAB | | | | [address], | | | | | | [place] [address] | | | | + + + + + + | Hgb | 11.7 (L)Comment: Testing | 13.2 - 17.0 | EXTERNAL | | | | performed at [facility], [address] | g/dL | LAB | | | | [address], | | | | | | [place] [address] | | | | + + + + + + | Hematocrit, | 34.8 (L)Comment: Testing | 39.0 - 50.0 % | EXTERNAL | | | POC | performed at [facility], [address] | | LAB | | | | [address], | | | | | | [place] [address] | | | | + + + + + + | MCV | 84.2Comment: Testing | 80.0 - 100.0 fl | EXTERNAL | | | | performed at [facility], [address] | | LAB | | | | [address], | | | | | | [place] [address] | | | | + + + + + + | MCH | 28.2Comment: Testing | 27.0 - 34.0 pg | EXTERNAL | | | | performed at [facility], [address] | | LAB | | | | [address], | | | | | | [place] [address] | | | | + + + + + + | MCHC | 33.5Comment: Testing | 32.0 - 35.5 | EXTERNAL | | | | performed at [facility], [address] | g/dL | LAB | | | | [address], | | | | | | [place] [address] | | | | + + + + + + | RDW-CV | 42.0Comment: Testing | 37 - 53 fl | EXTERNAL | | | | performed at [facility], [address] | | LAB | | | | [address], | | | | | | [place] [address] | | | | + + + + + + | Platelet | 329Comment: Testing | 150 - 400 K/uL | EXTERNAL | | | Count | performed at [facility], [address] | | LAB | | | Plasma | [address], | | | | | | [place] [address] | | | | + + + + + + | MPV | 7.9Comment: Testing | fl | EXTERNAL | | | | performed at [facility], [address] | | LAB | | | | [address], | | | | | | [place] [address] | | | | + + + + + + | Differentia | AUTOMATEDComment: | | EXTERNAL | | | l Type | Testing performed at | | LAB | | | | [facility], [address] | | | | | | [place] | | | | | | [address] | | | | + + + + + + | % Segmented | 83.29Comment: Testing | % | EXTERNAL | | | | performed at [facility], [address] | | LAB | | | Neutrophils | [address], | | | | | | [place] [address] | | | | + + + + + + | % | 8.71Comment: Testing | % | EXTERNAL | | | Lymphocytes | performed at [facility], [address] | | LAB | | | | [address], | | | | | | [place] [address] | | | | + + + + + + | % Monocytes | 5.08Comment: Testing | % | EXTERNAL | | | | performed at [facility], [address] | | LAB | | | | [address], | | | | | | [place] [address] | | | | + + + + + + | % | 2.32Comment: Testing | % | EXTERNAL | | | Eosinophils | performed at [facility], [address] | | LAB | | | | [address], | | | | | | [place] [address] | | | | + + + + + + | % Basophils | 0.60Comment: Testing | % | EXTERNAL | | | | performed at [facility], [address] | | LAB | | | | [address], | | | | | | [place] [address] | | | | + + + + + + | Absolute | 12.15 (H)Comment: | 1.90 - 7.40 | EXTERNAL | | | Segmented | Testing performed at | K/uL | LAB | | | Neutrophils | [facility], [address] | | | | | | [place] | | | | | | [address] | | | | + + + + + + | Absolute | 1.27Comment: Testing | 1.00 - 3.90 | EXTERNAL | | | Lymphocytes | performed at [facility], [address] | K/uL | LAB | | | | [address], | | | | | | [place] [address] | | | | + + + + + + | Absolute | 0.74Comment: Testing | 0.00 - 0.80 | EXTERNAL | | | Monocytes | performed at [facility], [address] | K/uL | LAB | | | | [address], | | | | | | [place] [address] | | | | + + + + + + | Absolute | 0.34Comment: Testing | 0.00 - 0.50 | EXTERNAL | | | Eosinophils | performed at [facility], [address] | K/uL | LAB | | | [address], | | | | | | [place] [address] | | | | + + + + + + | Absolute | 0.09Comment: Testing | 0.00 - 0.10 | EXTERNAL | | | Basophils | performed at [facility], [address] | K/uL | LAB | | | | [address], | | | | | | [place] [address] | | | | + + + [...] | | | | [place] [address] | | | | + + + + + + | K | 3.8Comment: Testing | 3.5 - 4.9 | EXTERNAL | | | | performed at [facility], [address] | mmol/L | LAB | | | | [address], | | | | | | [place] [address] | | | | + + + + + + | Cl | 104Comment: Testing | 99 - 109 mmol/L | EXTERNAL | | | | performed at [facility], [address] | | LAB | | | | [address], | | | | | | [place] [address] | | | | + + + + + + | CO2 | 27Comment: Testing | 23 - 32 mmol/L | EXTERNAL | | | | performed at [facility], [address] | | LAB | | | | [address], | | | | | | [place] [address] | | | | + + + + + + | Anion Gap | 11Comment: Testing | 5 - 20 mmol/L | EXTERNAL | | | | performed at [facility], [address] | | LAB | | | | [address], | | | | | | [place] [address] | | | | + + + + + + | Glucose, | 196 (H)Comment: Testing | 65 - 99 mg/dL | EXTERNAL | | | Fasting | performed at [facility], [address] | | LAB | | | | [address], | | | | | | [place] [address] | | | | + + + + + + | BUN | 5 (L)Comment: Testing | 8 - 25 mg/dL | EXTERNAL | | | | performed at [facility], [address] | | LAB | | | | [address], | | | | | | [place] [address] | | | | + + + + + + | Creatinine | 0.9Comment: Testing | 0.70 - 1.30 | EXTERNAL | | | | performed at [facility], [address] | mg/dL | LAB | | | | [address], | | | | | | [place] [address] | | | | + + + + + + | BUN/Creatin | 6Comment: Testing | | EXTERNAL | | | ine Ratio | performed at [facility], [address] | | LAB | | | | [address], | | | | | | [place] [address] | | | | + + + + + + | Calcium | 8.4 (L)Comment: Testing | 8.5 - 10.5 | EXTERNAL | | | | performed at [facility], [address] | mg/dL | LAB | | | | [address], | | | | | | [place] [address] | | | | + + + [...] | | | | | | at [facility], [address] | | | | | | [address], | | | | | | [place] [address] | | | | + + + [...] | | | Fingerstick | performed at [facility];[address] | | LAB | | | | [address];[place] | | | | | | [address] | | | | + + + [...] | | | Fingerstick | performed at [facility];8 | | LAB | | | | [address];[place] | | | | | | [address] | | | | + + + [...] | | | | | performed at [facility] | | | | | | [facility];[place], [place] | | | | | | [address] | | | | + + + [...] | | | Fingerstick | performed at [facility];[address] | | LAB | | | | [address] [address];[place] | | | | | | [address] | | | | + + + [...] | | | Fingerstick | performed at [facility];[address] | | LAB | | | | [address];[place], [place] | | | | | | [address] | | | | + + + [...] | | | | [facility], [address] [facility] | | | | | | [place] | | | | | | [address] | | | | + + + + + + | RED CELL | 4.31Comment: Testing | 4.20 - 5.70 | EXTERNAL | | | COUNT | performed at [facility], [address] | M/uL | LAB | | | | [address], | | | | | | [place] [address] | | | | + + + + + + | Hgb | 12.3 (L)Comment: Testing | 13.2 - 17.0 | EXTERNAL | | | | performed at [facility], [address] | g/dL | LAB | | | | [address], | | | | | | [place] [address] | | | | + + + + + + | Hematocrit, | 36.4 (L)Comment: Testing | 39.0 - 50.0 % | EXTERNAL | | | POC | performed at [facility], [address] | | LAB | | | | [address], | | | | | | [place] [address] | | | | + + + + + + | MCV | 84.5Comment: Testing | 80.0 - 100.0 fl | EXTERNAL | | | | performed at [facility], [address] | | LAB | | | [address], | | | | | | [place] [address] | | | | + + + + + + | MCH | 28.5Comment: Testing | 27.0 - 34.0 pg | EXTERNAL | | | | performed at [facility], [address] | | LAB | | | | [address], | | | | | | [place] [address] | | | | + + + + + + | MCHC | 33.8Comment: Testing | 32.0 - 35.5 | EXTERNAL | | | | performed at [facility], [address] | g/dL | LAB | | | | [address], | | | | | | [place] [address] | | | | + + + + + + | RDW-CV | 42.9Comment: Testing | 37 - 53 fl | EXTERNAL | | | | performed at [facility], [address] | | LAB | | | | [address], | | | | | | [place] [address] | | | | + + + + + + | Platelet | 307Comment: Testing | 150 - 400 K/uL | EXTERNAL | | | Count | performed at [facility], [address] | | LAB | | | Plasma | [address], | | | | | | [place] [address] | | | | + + + + + + | MPV | 8.0Comment: Testing | fl | EXTERNAL | | | | performed at [facility], [address] | | LAB | | | | [address], | | | | | | [place] [address] | | | | + + + + + + | Differentia | AUTOMATEDComment: | | EXTERNAL | | | l Type | Testing performed at | | LAB | | | | [facility], [address] | | | | | | [place] | | | | | | [address] | | | | + + + + + + | % Segmented | 85.00Comment: Testing | % | EXTERNAL | | | | performed at [facility], [address] | | LAB | | | Neutrophils | [address], | | | | | | [place] [address] | | | | + + + + + + | % | 7.15Comment: Testing | % | EXTERNAL | | | Lymphocytes | performed at [facility], [address] | | LAB | | | | [address], | | | | | | [place] [address] | | | | + + + + + + | % Monocytes | 5.39Comment: Testing | % | EXTERNAL | | | | performed at [facility], [address] | | LAB | | | [address], | | | | | | [place] [address] | | | | + + + + + + | % | 1.86Comment: Testing | % | EXTERNAL | | | Eosinophils | performed at [facility], [address] | | LAB | | | [address], | | | | | | [place] [address] | | | | + + + + + + | % Basophils | 0.60Comment: Testing | % | EXTERNAL | | | | performed at [facility], [address] | | LAB | | | | [address], | | | | | | [place] [address] | | | | + + + + + + | Absolute | 13.51 (H)Comment: | 1.90 - 7.40 | EXTERNAL | | | Segmented | Testing performed at | K/uL | LAB | | | Neutrophils | [facility], [address] | | | | | | [place] | | | | | | [address] | | | | + + + + + + | Absolute | 1.14Comment: Testing | 1.00 - 3.90 | EXTERNAL | | | Lymphocytes | performed at [facility], [address] | K/uL | LAB | | | | [address], | | | | | | [place] [address] | | | | + + + + + + | Absolute | 0.86 (H)Comment: Testing | 0.00 - 0.80 | EXTERNAL | | | Monocytes | performed at [facility], [address] | K/uL | LAB | | | | [address], | | | | | | [place] [address] | | | | + + + + + + | Absolute | 0.30Comment: Testing | 0.00 - 0.50 | EXTERNAL | | | Eosinophils | performed at [facility], [address] | K/uL | LAB | | | [address], | | | | | | [place] [address] | | | | + + + + + + | Absolute | 0.10Comment: Testing | 0.00 - 0.10 | EXTERNAL | | | Basophils | performed at [facility], [address] | K/uL | LAB | | | | [address], | | | | | | [place] [address] | | | | + + + [...] EXTERNAL | | | | performed at [facility], [address] | mmol/L | LAB | | | | [address], | | | | | | [place] [address] | | | | + + + + + + | K | 4.0Comment: Testing | 3.5 - 4.9 | EXTERNAL | | | | performed at [facility], [address] | mmol/L | LAB | | | | [address], | | | | | | [place] [address] | | | | + + + + + + | Cl | 103Comment: Testing | 99 - 109 mmol/L | EXTERNAL | | | | performed at [facility], [address] | | LAB | | | | [address], | | | | | | [place] [address] | | | | + + + + + + | CO2 | 24Comment: Testing | 23 - 32 mmol/L | EXTERNAL | | | | performed at [facility], [address] | | LAB | | | | [address], | | | | | | [place] [address] | | | | + + + + + + | Anion Gap | 14Comment: Testing | 5 - 20 mmol/L | EXTERNAL | | | | performed at [facility], [address] | | LAB | | | | [address], | | | | | | [place] [address] | | | | + + + + + + | Glucose, | 207 (H)Comment: Testing | 65 - 99 mg/dL | EXTERNAL | | | Fasting | performed at [facility], [address] | | LAB | | | | [address], | | | | | | [place] [address] | | | | + + + + + + | BUN | 7 (L)Comment: Testing | 8 - 25 mg/dL | EXTERNAL | | | | performed at [facility], [address] | | LAB | | | | [address], | | | | | | [place] [address] | | | | + + + + + + | Creatinine | 0.9Comment: Testing | 0.70 - 1.30 | EXTERNAL | | | | performed at [facility], [address] | mg/dL | LAB | | | | [address], | | | | | | [place] [address] | | | | + + + + + + | BUN/Creatin | 8Comment: Testing | | EXTERNAL | | | ine Ratio | performed at [facility], [address] | | LAB | | | | [address], | | | | | | [place] [address] | | | | + + + + + + | Calcium | 8.2 (L)Comment: Testing | 8.5 - 10.5 | EXTERNAL | | | | performed at [facility], [address] | mg/dL | LAB | | | | [address], | | | | | | [place] [address] | | | | + + + [...] W | | | | | | [address], | | | | | | [place] [address] | | | | + + + [...] | | | Fingerstick | performed at [facility];[address] | | LAB | | | | [address];[place], [place] | | | | | | [address] | | | | + + + [...] with a red-brown discoloration of the bone. Crematory Operator | | | sections are submitted in cassette B1 and placed into decal prior to | | | processing. [facility] MICROSCOPIC EXAMINATION: A-B. Histologic | | | sections of all submitted blocks are examined by light microscopy. | | | These findings, together with the gross examination, support the | | | pathologic diagnosis. PERFORMING LABORATORY: Professional | | | interpretation and technical preparation was performed by [facility] [facility] | | | [facility]ostics, [address], | | | [place] [address] (Manufacturing Director: Rafat Lorenzo M.D.; [facility]#: | | | [id number]). Diagnostician: Isi Gore MD Pathologist | | [...] | | | Fingerstick | performed at [facility];[address] | | LAB | | | | [address];[place] | | | | | | [address] | | | | + + + [...] | | | Fingerstick | performed at [facility];[address] | | LAB | | | | [address];[place], [place] | | | | | | [address] | | | | + + + [...] | | | Fingerstick | performed at [facility];[address] | | LAB | | | | [address];[place] | | | | | | [address] | | | | + + + [...] EXTERNAL | | | | performed at [facility];[address] | | LAB | | | | [address];[place] | | | | | | [address] | | | | + + + + + + | PCO2 ART | 32 (L)Comment: Testing | 35 - 45 mmHg | EXTERNAL | | | | performed at [facility];[address] | | LAB | | | | [address];[place] | | | | | | [address] | | | | + + + + + + | PO2 ART | 81Comment: Testing | 80 - 105 mmHg | EXTERNAL | | | | performed at [facility];[address] | | LAB | | | | [address];[place] | | | | | | [address] | | | | + + + + + + | Lactate, | <0.30 (L)Comment: | 0.36 - 1.25 | EXTERNAL | | | Arterial | Testing performed at | mmol/L | LAB | | | | [address];[place] [address] | | | | + + + + + + | HCO3 ART | 19 (L)Comment: Testing | 22 - 26 mmol/L | EXTERNAL | | | | performed at [facility];[address] | | LAB | | | | [address];[place] | | | | | | [address] | | | | + + + + + + | POC | 20 (L)Comment: Testing | 23 - 27 mEq/L | EXTERNAL | | | APPEARANCE | performed at [facility];[address] | | LAB | | | UA | [address];[place] | | | | | | [address] | | | | + + + + + + | Base | 6 (H)Comment: Testing | 0.0 - 2.0 | EXTERNAL | | | deficit | performed at [facility];[address] | mmol/L | LAB | | | | [address];[place] | | | | | | [address] | | | | + + + + + + | O2 SAT ART | 96Comment: Testing | 95 - 98 % | EXTERNAL | | | | performed at [facility];[address] | | LAB | | | | [address];[place] | | | | | | [address] | | | | + + + + + + | FiO2, POC | 21Comment: Testing | % | EXTERNAL | | | | performed at [facility];[address] | | LAB | | | | [address];[place] | | | | | | [address] | | | | + + + [...] EXTERNAL | | | | performed at [facility];[address] | mmol/L | LAB | | | | [address];[place], [place] | | | | | | [address] | | | | + + + [...] | | | Fingerstick | performed at [facility];8 | | LAB | | | | [address];[place], [place] | | | | | | [address] | | | | + + + [...] EXTERNAL | | | | performed at [facility], [address] | | LAB | | | | [address], | | | | | | [place] [address] | | | | + + + + + + | Clarity | CLEARComment: Testing | | EXTERNAL | | | | performed at [facility], [address] | | LAB | | | | [address], | | | | | | [place] [address] | | | | + + + + + + | Specific | 1.022Comment: Testing | 1.002 - 1.030 | EXTERNAL | | | [place] | performed at [facility], [address] | | LAB | | | | [address], | | | | | | [place] [address] | | | | + + + + + + | Leukocyte | NEGATIVEComment: | | EXTERNAL | | | Esterase, | Testing performed at | | LAB | | | Urine | [facility], [address] | | | | | | [place] | | | | | | [address] | | | | + + + + + + | Nitrite, | NEGATIVEComment: Testing | | EXTERNAL | | | Urine | performed at [facility], [address] | | LAB | | | | [address], | | | | | | [place] [address] | | | | + + + + + + | Urobilinoge | NORMALComment: Testing | mg/dL | EXTERNAL | | | n, Urine | performed at [facility], [address] | | LAB | | | | [address], | | | | | | [place] [address] | | | | + + + + + + | Protein, | NEGATIVEComment: Testing | mg/dL | EXTERNAL | | | Urine | performed at [facility], [address] | | LAB | | | | [address], | | | | | | [place] [address] | | | | + + + + + + | pH, Urine | 6.0Comment: Testing | 5.0 - 8.0 | EXTERNAL | | | | performed at [facility], [address] | | LAB | | | | [address], | | | | | | [place] [address] | | | | + + + + + + | Blood, | NEGATIVEComment: Testing | | EXTERNAL | | | Urine | performed at [facility], [address] | | LAB | | | | [address], | | | | | | [place] [address] | | | | + + + + + + | Ketones | NEGATIVEComment: Testing | mg/dL | EXTERNAL | | | | performed at [facility], [address] | | LAB | | | | [address], | | | | | | [place] [address] | | | | + + + + + + | Bilirubin, | NEGATIVEComment: Testing | | EXTERNAL | | | Urine | performed at [facility], [address] | | LAB | | | | [address], | | | | | | [place] [address] | | | | + + + + + + | Glucose, | >500 (A)Comment: Testing | mg/dL | EXTERNAL | | | Urine | performed at [facility], [address] | | LAB | | | | [address], | | | | | | [place] [address] | | | | + + + [...] | | LAB | | | | [facility] [place];[place] [address] | | | | + + + + + + | PCO2 ART | 56 (H)Comment: Testing | 35 - 45 mmHg | EXTERNAL | | | | [place] [facility] [place] | [place] | | | | [address];[place] | | | | | | [address] | | | | + + + + + + | PO2 ART | 74 (L)Comment: Testing | 80 - 105 mmHg | EXTERNAL | | | | performed [place] [facility] [place] | | [place] | | | | [address];[place] | | | | | | [address] | | | | + + + + + + | Lactate, | 7.11 (H)Comment: Testing | 0.36 - 1.25 | EXTERNAL | | | Arterial | [place] [facility] [place] | mmol/L | LAB | | | | [address];[place] | | | | | | [address] | | | | + + + + + + | HCO3 ART | 9 (L)Comment: Testing | 22 - 26 mmol/L | EXTERNAL | | | | performed at [facility] [place] | | [place] | | | | [address];[place] | | | | | | [address] | | | | + + + + + + | POC | 11 (L)Comment: Testing | 23 - 27 mEq/L | EXTERNAL | | | APPEARANCE | performed at [facility] | | LAB | | | UA | [address];[place] | | | | | | [address] | | | | + + + + + + | Base | 25 (H)Comment: Testing | 0.0 - 2.0 | EXTERNAL | | | deficit | performed at [facility] | mmol/L | LAB | | | | [address];[place] | | | | | | [address] | | | | + + + + + + | O2 SAT ART | 77 (L)Comment: Testing | 95 - 98 % | EXTERNAL | | | | performed at [facility] | | LAB | | | | [address];[place] | | | | | | [address] | | | | + + + + + + | FiO2, POC | 100Comment: Testing | % | EXTERNAL | | | | performed at [facility] | | LAB | | | | [address];[place] | | | | | | [address] | | | | + + + [...] [place] | | | | | | [address] | | | | + + + + + + | RED CELL | 4.04 (L)Comment: Testing | 4.20 - 5.70 | EXTERNAL | | | COUNT | performed at [facility], [address] | M/uL | LAB | | | | [address], | | | | | | [place] [address] | | | | + + + + + + | Hgb | 11.4 (L)Comment: Testing | 13.2 - 17.0 | EXTERNAL | | | | performed at [facility], [address] | g/dL | LAB | | | | [address], | | | | | | [place] [address] | | | | + + + + + + | Hematocrit, | 35.1 (L)Comment: Testing | 39.0 - 50.0 % | EXTERNAL | | | POC | performed at [facility], [address] | | LAB | | | | [address], | | | | | | [place] [address] | | | | + + + + + + | MCV | 86.7Comment: Testing | 80.0 - 100.0 fl | EXTERNAL | | | | performed at [facility], [address] | | LAB | | | | [address], | | | | | | [place] [address] | | | | + + + + + + | MCH | 28.2Comment: Testing | 27.0 - 34.0 pg | EXTERNAL | | | | performed at [facility], [address] | | LAB | | | [address], | | | | | | [place] [address] | | | | + + + + + + | MCHC | 32.5Comment: Testing | 32.0 - 35.5 | EXTERNAL | | | | performed at [facility], [address] | g/dL | LAB | | | | [address], | | | | | | [place] [address] | | | | + + + + + + | RDW-CV | 42.0Comment: Testing | 37 - 53 fl | EXTERNAL | | | | performed at [facility], [address] | | LAB | | | | [address], | | | | | | [place] [address] | | | | + + + + + + | Platelet | 262Comment: Testing | 150 - 400 K/uL | EXTERNAL | | | Count | performed at [facility], [address] | | LAB | | | Plasma | [address], | | | | | | [place] [address] | | | | + + + + + + | MPV | 8.4Comment: Testing | fl | EXTERNAL | | | | performed at [facility], [address] | | LAB | | | | [address], | | | | | | [place] [address] | | | | + + + + + + | Differentia | AUTOMATEDComment: | | EXTERNAL | | | l Type | Testing performed at | | LAB | | | | [facility], [address] | | | | | | [place] | | | | | | [address] | | | | + + + + + + | % Segmented | 82.60Comment: Testing | % | EXTERNAL | | | | performed at [facility], [address] | | LAB | | | Neutrophils | [address], | | | | | | [place] [address] | | | | + + + + + + | % | 7.47Comment: Testing | % | EXTERNAL | | | Lymphocytes | performed at [facility], [address] | | LAB | | | | [address], | | | | | | [place] [address] | | | | + + + + + + | % Monocytes | 6.29Comment: Testing | % | EXTERNAL | | | | performed at [facility], [address] | | LAB | | | | [address], | | | | | | [place] [address] | | | | + + + + + + | % | 3.29Comment: Testing | % | EXTERNAL | | | Eosinophils | performed at [facility], [address] | | LAB | | | | [address], | | | | | | [place] [address] | | | | + + + + + + | % Basophils | 0.35Comment: Testing | % | EXTERNAL | | | | performed at [facility], [address] | | LAB | | | | [address], | | | | | | [place] [address] | | | | + + + + + + | Absolute | 13.94 (H)Comment: | 1.90 - 7.40 | EXTERNAL | | | Segmented | Testing performed at | K/uL | LAB | | | Neutrophils | [facility], [address] | | | | | | [place] | | | | | | [address] | | | | + + + + + + | Absolute | 1.26Comment: Testing | 1.00 - 3.90 | EXTERNAL | | | Lymphocytes | performed at [facility], [address] | K/uL | LAB | | | | [address], | | | | | | [place] [address] | | | | + + + + + + | Absolute | 1.06 (H)Comment: Testing | 0.00 - 0.80 | EXTERNAL | | | Monocytes | performed at [facility], [address] | K/uL | LAB | | | | [address], | | | | | | [place] [address] | | | | + + + + + + | Absolute | 0.56 (H)Comment: Testing | 0.00 - 0.50 | EXTERNAL | | | Eosinophils | performed at [facility], [address] | K/uL | LAB | | | | [address], | | | | | | [place] [address] | | | | + + + + + + | Absolute | 0.06Comment: Testing | 0.00 - 0.10 | EXTERNAL | | | Basophils | performed at [facility], [address] | K/uL | LAB | | | | [address], | | | | | | [place] [address] | | | | + + + [...] EXTERNAL | | | | performed at [facility], [address] | | LAB | | | | [address], | | | | | | [place] [address] | | | | + + + [...] EXTERNAL | | | | performed at [facility], [address] | | LAB | | | | [address], | | | | | | [place] [address] | | | | + + + [...] | EXTERNAL | | | A1c | [place] [employer] | | LAB | | | [...] | | | | | performed at [facility], [address] | | | | | | [address] [facility], | | | | | | [place] [address] | | | | + + + [...] | | | | | performed at [facility], [address] | | | | | | [facility], | | | | | | [place] [address] | | | | + + + [...] | | | | [place] [address] | | | | + + + + + + | K | 4.6Comment: Testing | 3.5 - 4.9 | EXTERNAL | | | | performed at [facility], [address] | mmol/L | LAB | | | | [address], | | | | | | [place] [address] | | | | + + + + + + | Cl | 103Comment: Testing | 99 - 109 mmol/L | EXTERNAL | | | | performed at [facility], [address] | | LAB | | | | [address], | | | | | | [place] [address] | | | | + + + + + + | CO2 | 22 (L)Comment: Testing | 23 - 32 mmol/L | EXTERNAL | | | | performed at [facility], [address] | | LAB | | | | [address], | | | | | | [place] [address] | | | | + + + + + + | Anion Gap | 14Comment: Testing | 5 - 20 mmol/L | EXTERNAL | | | | performed at [facility], [address] | | LAB | | | | [address], | | | | | | [place] [address] | | | | + + + + + + | Glucose, | 392 (H)Comment: Testing | 65 - 99 mg/dL | EXTERNAL | | | Fasting | performed at [facility], [address] | | LAB | | | | [address], | | | | | | [place] [address] | | | | + + + + + + | BUN | 12Comment: Testing | 8 - 25 mg/dL | EXTERNAL | | | | performed at [facility], [address] | | LAB | | | | [address], | | | | | | [place] [address] | | | | + + + + + + | Creatinine | 1.0Comment: Testing | 0.70 - 1.30 | EXTERNAL | | | | performed at [facility], [address] | mg/dL | LAB | | | | [address], | | | | | | [place] [address] | | | | + + + + + + | BUN/Creatin | 12Comment: Testing | | EXTERNAL | | | ine Ratio | performed at [facility], [address] | | LAB | | | | [address], | | | | | | [place] [address] | | | | + + + + + + | Calcium | 7.6 (L)Comment: Testing | 8.5 - 10.5 | EXTERNAL | | | | performed at [facility], [address] | mg/dL | LAB | | | | [address], | | | | | | [place] [address] | | | | + + + + + + | Protein, | 6.4Comment: Testing | 6.3 - 8.2 g/dL | EXTERNAL | | | Total | performed at [facility], [address] | | LAB | | | | [address], | | | | | | [place] [address] | | | | + + + + + + | Albumin | 2.2 (L)Comment: Testing | 3.6 - 5.0 g/dL | EXTERNAL | | | | performed at [facility], [address] | | LAB | | | | [address], | | | | | | [place] [address] | | | | + + + + + + | Globulin | 4.2Comment: Testing | 1.3 - 4.9 g/dL | EXTERNAL | | | | performed at [facility], [address] | | LAB | | | | [address], | | | | | | [place] [address] | | | | + + + + + + | A/G Ratio | 0.5 (L)Comment: Testing | 1.0 - 2.4 | EXTERNAL | | | | performed at [facility], [address] | | LAB | | | | [address], | | | | | | [place] [address] | | | | + + + + + + | Bilirubin | 0.6Comment: Testing | 0.1 - 1.5 mg/dL | EXTERNAL | | | Total | performed at [facility], [address] | | LAB | | | | [address], | | | | | | [place] [address] | | | | + + + + + + | ALP, | 182 (H)Comment: Testing | 35 - 115 U/L | EXTERNAL | | | External | performed at [facility], [address] | | LAB | | | | [address], | | | | | | [place] [address] | | | | + + + + + + | AST | 9 (L)Comment: Testing | 10 - 45 U/L | EXTERNAL | | | | performed at [facility], [address] | | LAB | | | | [address], | | | | | | [place] [address] | | | | + + + + + + | ALT | 16Comment: Testing | 10 - 65 U/L | EXTERNAL | | | | performed at [facility], [address] | | LAB | | | | [address], | | | | | | [place] [address] | | | | + + + [...] | | | | | | at [facility], [address] | | | | | | [address], | | | | | | [place] [address] | | | | + + + [...] | | | Fingerstick | performed at [facility];[address] | | LAB | | | | [address];[place], [place] | | | | | | [address] | | | | + + + [...] EXTERNAL LAB | | Testing performed at [facility];[address] [place] [address];[place] [address] MRSA PCR | | | POSITIVE for MRSA by PCRAbnormal | | | Testing performed at [address];[place] [address] | | + + + + +---------+ [...] | | | Fingerstick | performed at [facility];8 | | LAB | | | | [address];[place] | | | | | | [address] | | | | + + + [...] EXTERNAL | | | | performed at [facility];[address] | mmol/L | LAB | | | | [address];[place] | | | | | | [address] | | | | + + + + + + | K | 4.0Comment: Testing | 3.5 - 4.9 | EXTERNAL | | | | performed at [facility];[address] | mmol/L | LAB | | | | [address];[place] | | | | | | [address] | | | | + + + + + + | Cl | 104Comment: Testing | 99 - 109 mmol/L | EXTERNAL | | | | performed at [facility];[address] | | LAB | | | | [address];[place] | | | | | | [address] | | | | + + + + + + | CO2 | 21 (L)Comment: Testing | 23 - 32 mmol/L | EXTERNAL | | | | performed at [facility];[address] | | LAB | | | | [address];[place] | | | | | | [address] | | | | + + + + + + | Anion Gap | 13Comment: Testing | 5 - 20 mmol/L | EXTERNAL | | | | performed at [facility];[address] | | LAB | | | | [address];[place] | | | | | | [address] | | | | + + + + + + | Glucose, | 254 (H)Comment: Testing | 65 - 99 mg/dL | EXTERNAL | | | Fasting | performed at [facility];[address] | | LAB | | | | [address];[place] | | | | | | [address] | | | | + + + + + + | BUN | 12Comment: Testing | 8 - 25 mg/dL | EXTERNAL | | | | performed at [facility];[address] | | LAB | | | | [address];[place] | | | | | | [address] | | | | + + + + + + | Creatinine | 0.95Comment: Testing | 0.70 - 1.30 | EXTERNAL | | | | performed at [facility];[address] | mg/dL | LAB | | | | [address];[place] | | | | | | [address] | | | | + + + + + + | BUN/Creatin | 13Comment: Testing | | EXTERNAL | | | ine Ratio | performed at [facility];[address] | | LAB | | | | [address];[place] | | | | | | [address] | | | | + + + + + + | Calcium | 6.9 (L)Comment: Testing | 8.5 - 10.5 | EXTERNAL | | | | performed at [facility];[address] | mg/dL | LAB | | | | [address];[place] | | | | | | [address] | | | | + + + + + + | Protein, | 6.3Comment: Testing | 6.3 - 8.2 g/dL | EXTERNAL | | | Total | performed at [facility];[address] | | LAB | | | | [address];[place] | | | | | | [address] | | | | + + + + + + | Albumin | 2.1 (L)Comment: Testing | 3.6 - 5.0 g/dL | EXTERNAL | | | | performed at [facility];[address] | | LAB | | | | [address];[place] | | | | | | [address] | | | | + + + + + + | Globulin | 4.2Comment: Testing | 1.3 - 4.9 g/dL | EXTERNAL | | | | performed at [facility];[address] | | LAB | | | | [address];[place] | | | | | | [address] | | | | + + + + + + | A/G Ratio | 0.5 (L)Comment: Testing | 1.0 - 2.4 | EXTERNAL | | | | performed at [facility];[address] | | LAB | | | | [address];[place] | | | | | | [address] | | | | + + + + + + | Bilirubin | 0.4Comment: Testing | 0.1 - 1.5 mg/dL | EXTERNAL | | | Total | performed at [facility];[address] | | LAB | | | | [address];[place] | | | | | | [address] | | | | + + + + + + | ALP, | 181 (H)Comment: Testing | 35 - 115 U/L | EXTERNAL | | | External | performed at [facility];[address] | | LAB | | | | [address];[place] | | | | | | [address] | | | | + + + + + + | AST | 10Comment: Testing | 10 - 45 U/L | EXTERNAL | | | | performed at [facility];[address] | | LAB | | | | [address];[place] | | | | | | [address] | | | | + + + + + + | ALT | 14Comment: Testing | 10 - 65 U/L | EXTERNAL | | | | performed at [facility];[address] | | LAB | | | | [address];[place] | | | | | | [address] | | | | + + + [...] | | | | | | at [facility];[address];[place] [address] | | | | + + + [...] 9:30AM Referring Provider Line: | | | [phone] ID: [id number] | | + + + [...] | | 2016 9:30AM Referring Provider Line: [phone] ID: [id number] | + + POC Glucose (12/14/2016 11:34 PM PDT) + + + + + + | Component | Value | Ref Range | Performed | Pathologist | | | | | At | Signature | + + + + + + | Glucose, | 172 (H)Comment: Testing | 65 - 99 mg/dL | EXTERNAL | | | Fingerstick | performed at [facility];[address] | | LAB | | | | [address];[place], [place] | | | | | | [address] | | | | + + + [...] EXTERNAL | | | | performed at [facility];888 | mmol/L | LAB | | | | [address];[place], [place] | | | | | | [address] | | | | + + + [...] | | | Blood | performed at [facility];[address] | | LAB | | | | [address];[place], [place] | | | | | | [address] | | | | + + + [...] EXTERNAL | | | | performed at [facility] | | LAB | | | | [address];[place] | | | | | | [address] | | | | + + + [...] K/uL | LAB | | | | [facility];[address];[place] [address] | | | | + + + + + + | RED CELL | 4.20Comment: Testing | 4.20 - 5.70 | EXTERNAL | | | COUNT | performed at [facility];[address] | M/uL | LAB | | | | [address];[place] | | | | | | [address] | | | | + + + + + + | Hgb | 12.4 (L)Comment: Testing | 13.2 - 17.0 | EXTERNAL | | | | performed at [facility];888 | g/dL | LAB | | | | [address];[place] | | | | | | [address] | | | | + + + + + + | Hematocrit, | 36.3 (L)Comment: Testing | 39.0 - 50.0 % | EXTERNAL | | | POC | performed at [facility];[address] | | LAB | | | | [address];[place] | | | | | | [address] | | | | + + + + + + | MCV | 86.5Comment: Testing | 80.0 - 100.0 fl | EXTERNAL | | | | performed at [facility];[address] | | LAB | | | | [address];[place] | | | | | | [address] | | | | + + + + + + | MCH | 29.4Comment: Testing | 27.0 - 34.0 pg | EXTERNAL | | | | performed at [facility];[address] | | LAB | | | | [address];[place] | | | | | | [address] | | | | + + + + + + | MCHC | 34.0Comment: Testing | 32.0 - 35.5 | EXTERNAL | | | | performed at [facility];888 | g/dL | LAB | | | | [address];[place] | | | | | | [address] | | | | + + + + + + | RDW-CV | 42.9Comment: Testing | 37 - 53 fl | EXTERNAL | | | | performed at [facility];[address] | | LAB | | | | [address];[place] | | | | | | [address] | | | | + + + + + + | Platelet | 258Comment: Testing | 150 - 400 K/uL | EXTERNAL | | | Count | performed at [facility];[address] | | LAB | | | Plasma | [address];[place] | | | | | | [address] | | | | + + + + + + | MPV | 8.3Comment: Testing | fl | EXTERNAL | | | | performed at [facility];[address] | | LAB | | | | [address];[place] | | | | | | [address] | | | | + + + + + + | Differentia | AUTOMATEDComment: | | EXTERNAL | | | l Type | Testing performed at | | LAB | | | | [facility];[address];[place] [address] | | | | + + + + + + | % Segmented | 87.43Comment: Testing | % | EXTERNAL | | | | performed at [facility];[address] | | LAB | | | Neutrophils | [address];[place] | | | | | | [address] | | | | + + + + + + | % | 5.56Comment: Testing | % | EXTERNAL | | | Lymphocytes | performed at [facility];[address] | | LAB | | | | [address];[place] | | | | | | [address] | | | | + + + + + + | % Monocytes | 4.36Comment: Testing | % | EXTERNAL | | | | performed at [facility];[address] | | LAB | | | | [address];[place] | | | | | | [address] | | | | + + + + + + | % | 1.84Comment: Testing | % | EXTERNAL | | | Eosinophils | performed at [facility];[address] | | LAB | | | | [address];[place] | | | | | | [address] | | | | + + + + + + | % Basophils | 0.81Comment: Testing | % | EXTERNAL | | | | performed at [facility];[address] | | LAB | | | | [address];[place] | | | | | | [address] | | | | + + + + + + | Absolute | 17.02 (H)Comment: | 1.90 - 7.40 | EXTERNAL | | | Segmented | Testing performed at | K/uL | LAB | | | Neutrophils | [facility];[address];[place] [address] | | | | + + + + + + | Absolute | 1.08Comment: Testing | 1.00 - 3.90 | EXTERNAL | | | Lymphocytes | performed at [facility];[address] | K/uL | LAB | | | | [address];[place] | | | | | | [address] | | | | + + + + + + | Absolute | 0.85 (H)Comment: Testing | 0.00 - 0.80 | EXTERNAL | | | Monocytes | performed at [facility];[address] | K/uL | LAB | | | | [address];[place] | | | | | | [address] | | | | + + + + + + | Absolute | 0.36Comment: Testing | 0.00 - 0.50 | EXTERNAL | | | Eosinophils | performed at [facility];[address] | K/uL | LAB | | | | [address];[place] | | | | | | [address] | | | | + + + + + + | Absolute | 0.16 (H)Comment: Testing | 0.00 - 0.10 | EXTERNAL | | | Basophils | performed at [facility];[address] | K/uL | LAB | | | | [address];[place] | | | | | | [address] | | | | + + + + + + | RBC | RBC AND PLT MORPHOLOGY | | EXTERNAL | | | Morphology | APPEAR NORMALComment: | | LAB | | | | Testing performed at | | | | | | [facility];[address];[place] [address] | | | | + + + + + + | Platelet | ADEQUATEComment: Testing | | EXTERNAL | | | Estimate | performed at [facility];[address] | | LAB | | | | [address];[place] | | | | | | [address] | | | | + + + + + + | Differentia | SLIDE SCANNED, AGREES | | EXTERNAL | | | l Comments | WITH AUTOMATED | | LAB | | | | RESULTS.Comment: Testing | | | | | | performed at [facility];[address] | | | | | | [address];[place], [place] | | | | | | [address] | | | | + + + [...] EXTERNAL | | | | performed at [facility] | | LAB | | | | [address];[place], [place] | | | | | | [address] | | | | + + + [...] EXTERNAL | | | | performed at [facility];888 | mmol/L | LAB | | | | [address];[place] | | | | | | [address] | | | | + + + + + + | K | 5.1 (H)Comment: MODERATE | 3.5 - 4.9 | EXTERNAL | | | | HEMOLYSISTesting | mmol/L | LAB | | | | performed at [facility];[address] | | | | | | [address];[place] | | | | | | [address] | | | | + + + + + + | Cl | 93 (L)Comment: Testing | 99 - 109 mmol/L | EXTERNAL | | | | performed at [facility];[address] | | LAB | | | | [address];[place] | | | | | | [address] | | | | + + + + + + | CO2 | 23Comment: Testing | 23 - 32 mmol/L | EXTERNAL | | | | performed at [facility];[address] | | LAB | | | | [address];[place] | | | | | | [address] | | | | + + + + + + | Anion Gap | 14Comment: Testing | 5 - 20 mmol/L | EXTERNAL | | | | performed at [facility];[address] | | LAB | | | | [address];[place] | | | | | | [address] | | | | + + + + + + | Glucose, | 635 (HH)Comment: CALLED | 65 - 99 mg/dL | EXTERNAL | | | Fasting | DR LING COUCH | | LAB | | | | AT 2216 BY RHREAD BACK | | | | | | RESULTS VERIFIEDTesting | | | | | | performed at [facility];[address] | | | | | | [address];[place] | | | | | | [address] | | | | + + + + + + | BUN | 13Comment: Testing | 8 - 25 mg/dL | EXTERNAL | | | | performed [place] [facility] [place] | | LAB | | | | [address];[place] | | | | | | [address] | | | | + + + + + + | Creatinine | 1.4 (H)Comment: Testing | 0.70 - 1.30 | EXTERNAL | | | | performed [place] [facility] [place] | mg/dL | LAB | | | | [address];[place] | | | | | | [address] | | | | + + + + + + | BUN/Creatin | 10Comment: Testing | | EXTERNAL | | | ine Ratio | performed [place] [facility] [place] | | LAB | | | | [address];[place] | | | | | | [address] | | | | + + + + + + | Calcium | 7.9 (L)Comment: Testing | 8.5 - 10.5 | EXTERNAL | | | | performed [place] [facility] [place] | mg/dL | LAB | | | | [address];[place] | | | | | | [address] | | | | + + + + + + | Protein, | 7.7Comment: Testing | 6.3 - 8.2 g/dL | EXTERNAL | | | Total | performed [place] [facility] [place] | | LAB | | | | [address];[place] | | | | | | [address] | | | | + + + + + + | Albumin | 2.6 (L)Comment: Testing | 3.6 - 5.0 g/dL | EXTERNAL | | | | performed at [facility] [place] | | LAB | | | | [address];[place] | | | | | | [address] | | | | + + + + + + | Globulin | 5.1 (H)Comment: Testing | 1.3 - 4.9 g/dL | EXTERNAL | | | | performed at [facility] [place] | | LAB | | | | [address];[place] | | | | | | [address] | | | | + + + + + + | A/G Ratio | 0.5 (L)Comment: Testing | 1.0 - 2.4 | EXTERNAL | | | | performed at [facility] [place] | | LAB | | | | [address];[place] | | | | | | [address] | | | | + + + + + + | Bilirubin | 0.6Comment: Testing | 0.1 - 1.5 mg/dL | EXTERNAL | | | Total | performed at [facility] [place] | | LAB | | | | [address];[place] | | | | | | [address] | | | | + + + + + + | ALP, | 259 (H)Comment: Testing | 35 - 115 U/L | EXTERNAL | | | External | performed at [facility] [place] | | LAB | | | | [address];[place] | | | | | | [address] | | | | + + + + + + | AST | 17Comment: MODERATE | 10 - 45 U/L | EXTERNAL | | | | HEMOLYSISTesting | | LAB | | | | performed at [facility] [place] | | | | | | [address];[place] | | | | | | [address] | | | | + + + + + + | ALT | 17Comment: Testing | 10 - 65 U/L | EXTERNAL | | | | performed at [facility] [place] | | LAB | | | | [address];[place] | | | | | | [address] | | | | + + + [...] | | | | | | at [facility] [place] [facility] | | | | | | [facility];[place] [address] | | | | + + + [...] type 2 diabetes mellitus with 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
--- OUTSIDE RECORDS SUMMARY | ~2019-08-11 | XMS | Encounter Summary ---
Demographics + + + | Address | [address] | | | [place] [address] | + + + | Home Phone | | + + + | Preferred Language | Unknown | + + + | Marital Status | Single | + + + | Hoahaoism Affiliation | [id number] | + + + | Race | Unknown | + + + | Ethnic Group | Unknown | + + + Author + + + | Author | [facility] | | | and [place] | + + + | Organization | [facility] | | | [...] Team Providers + +------+ + | Care Die Hardener Name | Role | Phone | + +------+ + | Estrella Light PA-C | PCP | | + +------+ + Encounter Details +--------+ + + + + | Date | Type | Department | Care Team | Description | +--------+ + + + + | 01/13/ | Hospital | [facility] | Cameron Lopez | | | 2018 - | Encounter | [facility] | MD Antolin Hill | | | | | CLINICAL DECISION | [place], [place] | | | 01/14/ | | UNIT [facility] | [address] | | | 2017 | | [place], [place] | | | | | | [address] | | | | | | [phone] | | | +--------+ + + + [...] + + + | Blood Pressure | 113/78 | 01/14/2018 7:50 AM | | | | | PDT | | + + + + + | Pulse | 83 | 01/14/2018 7:50 AM | | | | | PDT | | + + + + + | Temperature | 36.4 C (97.6 F) | 01/14/2018 7:50 AM | | | | | PDT | | + + + + + | Respiratory Rate | 18 | 01/14/2018 7:50 AM | | | | | PDT | | + + + + + | Oxygen Saturation | - | - | | + + + + + | Inhaled Oxygen | - | - | | | Concentration | | | | + + + + + | Weight | 88.5 kg (195 lb) | 01/14/2018 7:50 AM | | | | | PDT | | + + + + + | Height | 177.8 cm (5' 10") | 01/14/2018 7:50 AM | | | | | PDT | | + + + + + | Body Mass Index | 27.98 | 01/14/2018 7:50 AM | | | | | PDT | | + + + + + documented in this encounter Discharge Summaries Abhinav Winters DO - 01/14/2018 9:00 AM PDTFormatting of this note might be different from th e original. Discharge Summaries by Abhinav Winters DO at 01/14/18899 Author: Abhinav Winters DO Service: Hospitalist Author Type: Physician Filed: 01/14/181931 Date of Service: 01/14/18899 Status: Signed Counselor At Law: Abhinav Winters DO (Physician) The patient is 52 y.o. 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, presented to the emergency department of [facility] in [place] today with complaints of upper, sharp chest pain that he experiences only af ter taking a deep breath or with cough. He denies any radiation to neck, back, shoulders, o r arms. According to the patient, he has been having upper respiratory symptoms in the form of runny nose, sore throat, cough, shortness of breath for the last 3 days. He also ran a fe marquis last night, associated with chills and sweating. His 2-year-old grandchild has similar s ymptomsHe has been bringing up some phlegm, but he swallows it rather than spitting it out. Hence, he does not know the color of the sputum. The patient denies any history of previous heart problems, pneumonia, or bronchitis. He quinn s not smoke. In the emergency department at [facility], EKG showed T inversions in lead III and aVF, and troponin was elevated at 0.081. According to their lab, normal value is less t da silva 0.01. The patient was given 2 doses of sublingual nitroglycerin and aspirin, and since t the patient has been chest pain free, but as mentioned above, cough reproduces pain. The patient has history of diabetes mellitus, but does not remember his most current hemogl obin A1c. He is on Lantus and on scheduled insulin at home. He also takes lisinopril for hig h blood pressure, but does not take any aspirin or beta blockers. No family history of piotr ture coronary artery disease. However, according to the patient, his grandmother of a h eart attack at the time he was born. Patient was admitted to the hospital for evaluation of atypical chest pain. Troponin was tr ended and negative. However since the patient's symptoms were resolved with nitro stress reina ting was thought to be a prudent decision. Nursing paged me about plans to pursue stress reina ting, I replied I need to evaluate him personally to make that decision, however the patient decided to leave AMA before I could evaluate him. documented in this encou nter Medications at [...] Progress Notes Conversion Transaction, Provider Unknown - 01/14/2018 9:00 AM PDTFormatting of this note m ight be different from the original. Nurse Progress Note by Elizabeth Galvez RN at 01/14/18899 Author: Elizabeth Galvez RN Service: (none) Author Type: Registered Nurse Filed: 01/14/18950 Date of Service: 04/15/18 0900 Status: Signed Counselor At Law: Elizabeth Galvez, RN (Registered Nurse) Approached by another RN regarding patient and his request to leave. Went into room and wi th an elevated voice patient stated "I want to leave, I don't want to be here. You guys aren 't listening to me. This isn't my heart. I have a cold!" Explained to patient that his conc erns had been told to this RN from previous shift and this RN had already called Dr. Winters to inform of concerns and get update for tests/treatment this morning. Again, with an elevate d voice patient stated "you're not listening to me! You're not listening to me! I told you t his is just a cold. Stop treating me like a child." Attempted to again explain to patient t hat concerns were notified to Dr. Winters and that he would be here shortly to discuss with madelyn sun. Patient states "you're not listening to me, stop treating me like a child!" He repea gemma this several times. Explained to patient AMA option or see the doctor. Again stated "yo u're treating me like a child" Asked the other RN that was present in room to please obtain ed AMA form for patient to fill out. Security called. When this was brought into the room brayden alberts signed the paper. Patient was then upset that his crutches were not at this hospital, as he believed that they were here. He then stated since he didn't have crutches he was go ing to wait in the room until his ride arrived. Explained to patient since he is leaving AM A staff would provide wheelchair ride out to lobby and he could wait inside lobby until ride arrived. He then stated "oh I see, you are just going to kick me out on the street now!" Explained to patient that was not being kicked out and that waiting in the lobby was where shaneka ramirez was welcome to wait inside until his ride arrived. He was then escorted, via wheelchair, to lobby by escort and security staff. onver ruben Transaction, Provider Unknown - 01/13/2018 2:00 PM PDT Pharmacy Note by Rosalba Luo RPH at 01/13/181399 Author: Rosalba Luo RPH Service: Pharmacy Author Type: Pharmacist Filed: 01/13/181399 Date of Service: 01/13/181399 Status: Signed Counselor At Law: Rosalba Luo RPH (Pharmacist) Clinical Pharmacy Note: Renal Monitoring Kuldip Smith 52 y.o. male Ht Readings from Last 1 Encounters: 12/15/16 1.778 m (5' 10") Wt Readings from Last 1 Encounters: 12/19/16 88.5 kg (195 lb 1.7 oz) Creatinine clearance cannot be calculated (Patient's most recent lab result is older than t he maximum 30 days allowed.) Pharmacy dosing for renal function per Dr. Lopez. Currently, there are no labs. Pharmacy will adjust medications, if necessary, in AM when la bs are reported. Rosalba Luo RPh 01/13/2018 2:00 PM docume nted in this encounter Plan of Treatment Not on filedocumented as of this encounter Procedures + +--------+ + + + | Procedure Name | Priori | Date/Time | Associated Diagnosis | Comments | | | ty | | | | + +--------+ + + + | XR CHEST 1 VIEW | Routin | 01/14/2018 | | Results for this | | | e | 7:43 AM | | procedure are in the | | | | PDT | | results section. | + +--------+ + + + | EXTERNAL LAB: CBC | Routin | 01/14/2018 | | Results for this | | | e | 5:28 AM | | procedure are in the | | | | PDT | | results section. | + +--------+ + + + | LIPID PANEL | Routin | 01/14/2018 | | Results for this | | | e | 5:28 AM | | procedure are in the | | | | PDT | | results section. | + +--------+ + + + | TSH | Routin | 01/14/2018 | | Results for this | | | e | 5:28 AM | | procedure are in the | | | | PDT | | results section. | + +--------+ + + + | PHOSPHORUS | Routin | 01/14/2018 | | Results for this | | | e | 5:28 AM | | procedure are in the | | | | PDT | | results section. | + +--------+ + + + | MAGNESIUM | Routin | 01/14/2018 | | Results for this | | | e | 5:28 AM | | procedure are in the | | | | PDT | | results section. | + +--------+ + + + | HEMOGLOBIN A1C | Routin | 01/14/2018 | | Results for this | | | e | 5:28 AM | | procedure are in the | | | | PDT | | results section. | + +--------+ + + + | COMPREHENSIVE | Routin | 01/14/2018 | | Results for this | | METABOLIC PANEL | e | 5:28 AM | | procedure are in the | | | | PDT | | results section. | + +--------+ + + + | POC GLUCOSE | Routin | 01/14/2018 | | Results for this | | | e | 5:08 AM | | procedure are in the | | | | PDT | | results section. | + +--------+ + + + | CK-MB | Routin | 01/13/2018 | | Results for this | | | e | 11:50 PM | | procedure are in the | | | | PDT | | results section. | + +--------+ + + + | CK TOTAL | Routin | 01/13/2018 | | Results for this | | | e | 11:50 PM | | procedure are in the | | | | PDT | | results section. | + +--------+ + + + | POC GLUCOSE | Routin | 01/13/2018 | | Results for this | | | e | 9:02 PM | | procedure are in the | | | | PDT | | results section. | + +--------+ + + + | TROPONIN I | Routin | 01/13/2018 | | Results for this | | | e | 7:51 PM | | procedure are in the | | | | PDT | | results section. | + +--------+ + + + | CK-MB | Routin | 01/13/2018 | | Results for this | | | e | 7:51 PM | | procedure are in the | | | | PDT | | results section. | + +--------+ + + + | CK TOTAL | Routin | 01/13/2018 | | Results for this | | | e | 7:51 PM | | procedure are in the | | | | PDT | | results section. | + +--------+ + + + | POC GLUCOSE | Routin | 01/13/2018 | | Results for this | | | e | 6:26 PM | | procedure are in the | | | | PDT | | results section. | + +--------+ + + + | POC GLUCOSE | Routin | 01/13/2018 | | Results for this | | | e | 4:41 PM | | procedure are in the | | | | PDT | | results section. | + +--------+ + + + | TROPONIN I | Routin | 01/13/2018 | | Results for this | | | e | 3:45 PM | | procedure are in the | | | | PDT | | results section. | + +--------+ + + + | CK-MB | Routin | 01/13/2018 | | Results for this | | | e | 3:45 PM | | procedure are in the | | | | PDT | | results section. | + +--------+ + + + | CK TOTAL | Routin | 01/13/2018 | | Results for this | | | e | 3:45 PM | | procedure are in the | | | | PDT | | results section. | + +--------+ + + + | ECHO COMPLETE | Routin | 01/13/2018 | | Results for this | | | e | 2:12 PM | | procedure are in the | | | | PDT | | results section. | + +--------+ + + + | POC GLUCOSE | Routin | 01/13/2018 | | Results for this | | | e | 1:38 PM | | procedure are in the | | | | PDT | | results section. | + +--------+ + + + | TROPONIN I | Routin | 01/13/2018 | | Results for this | | | e | 12:42 PM | | procedure are in the | | | | PDT | | results section. | + +--------+ + + + | MRSA NAAT | Timed | 01/13/2018 | | Results for this | | | | 12:35 PM | | procedure are in the | | | | PDT | | results section. | + +--------+ + + + documented in this encounter Results XR Chest 1 Vw (01/14/2018 7:43 AM PDT) + + | Specimen | + + | | + + + + + | Impressions | Performed At | + + + | 1. 11 mm left basilar lung nodule or nipple shadow. Consider PA | | | and lateral chest regress with nipple markers in place. 2. No | | | acute disease Electronically signed by Angel Willis MD on | | | 01/14/2018 8:01 AM | | + + + + + + | Narrative | Performed At | + + + | [facility] X[facility] CHEST 1 VIEW 01/14/2018 7:43 AM HISTORY: | | | Chest pain TECHNIQUE: AP chest radiograph. COMPARISON: Chest | | | radiograph January 13, 2018. FINDINGS: Unchanged small left | | | basilar lung opacity, 11 mm potentially a nipple shadow or lung | | | nodule. Otherwise clear lungs. No pneumothorax or pleural effusion. | | | Normal cardiac silhouette and pulmonary vasculature. No worrisome bone | | | lesion or fracture. | | + + + + + | Procedure Note | + + | Leonard, Rad Conversion - 05/15/2019 8:55 AM WILLOW ARNDT CHEST 1 | | VIEW01/14/2018 7:43 AM HISTORY:Chest pain TECHNIQUE:AP chest radiograph. COMPARISON:Chest | | radiograph January 13, 2018. FINDINGS:Unchanged small left basilar lung opacity, 11 mm | | potentially a nipple shadow or lung nodule. Otherwise clear lungs. No pneumothorax or | | pleural effusion. Normal cardiac silhouette and pulmonary vasculature. No worrisome bone | | lesion or fracture. IMPRESSION: 1. 11 mm left basilar lung nodule or nipple shadow. | | Consider PA and lateral chest regress with nipple markers in place. 2. No acute disease | | | |AP chest radiograph. | | | |COMPARISON: | |Chest radiograph January 13, 2018. | | | |FINDINGS: | |Unchanged small left basilar lung opacity, 11 mm potentially a nipple shadow or lung nodule . Otherwise clear lungs. No pneumothorax or pleural effusion. Normal cardiac silhouette and pulmonary vasculature. No worrisome bone lesion or fracture. | | | |IMPRESSION: | |1. 11 mm left basilar lung nodule or nipple shadow. Consider PA and lateral chest regress with nipple markers in place. | | | |2. No acute disease | | | | | + + External Lab: CBC (01/14/2018 5:28 AM PDT) + + + + + + | Component | Value | Ref Range | Performed | Pathologist | | | | | At | Signature | + + + + + + | WBC | 8.53 | 3.80 - 11.00 | EXTERNAL | | | | | K/uL | LAB | | + + + + + + | RED CELL | 5.47 | 4.20 - 5.70 | EXTERNAL | | | COUNT | | M/uL | LAB | | + + + + + + | Hgb | 15.8 | 13.2 - 17.0 | EXTERNAL | | | | | g/dL | LAB | | + + + + + + | Hematocrit, | 46.5 | 39.0 - 50.0 % | EXTERNAL | | | POC | | | LAB | | + + + + + + | MCV | 84.9 | 80.0 - 100.0 fl | EXTERNAL | | | | | | LAB | | + + + + + + | MCH | 28.8 | 27.0 - 34.0 pg | EXTERNAL | | | | | | LAB | | + + + + + + | MCHC | 33.9 | 32.0 - 35.5 | EXTERNAL | | | | | g/dL | LAB | | + + + + + + | RDW-CV | 41.6 | 37 - 53 fl | EXTERNAL | | | | | | LAB | | + + + + + + | Platelet | 206 | 150 - 400 K/uL | EXTERNAL | | | Count | | | LAB | | | Plasma | | | | | + + + + + + | MPV | 8.7 | fl | EXTERNAL | | | | | | LAB | | + + + + + + | Differentia | AUTOMATED | | EXTERNAL | | | l Type | | | LAB | | + + + + + + | % Segmented | 73.17 | % | EXTERNAL | | | | | | LAB | | | Neutrophils | | | | | + + + + + + | % | 13.11 | % | EXTERNAL | | | Lymphocytes | | | LAB | | + + + + + + | % Monocytes | 10.82 | % | EXTERNAL | | | | | | LAB | | + + + + + + | % | 2.23 | % | EXTERNAL | | | Eosinophils | | | LAB | | + + + + + + | % Basophils | 0.67 | % | EXTERNAL | | | | | | LAB | | + + + + + + | Absolute | 6.24 | 1.90 - 7.40 | EXTERNAL | | | Segmented | | K/uL | LAB | | | Neutrophils | | | | | + + + + + + | Absolute | 1.12 | 1.00 - 3.90 | EXTERNAL | | | Lymphocytes | | K/uL | LAB | | + + + + + + | Absolute | 0.92 (H) | 0.00 - 0.80 | EXTERNAL | | | Monocytes | | K/uL | LAB | | + + + + + + | Absolute | 0.19 | 0.00 - 0.50 | EXTERNAL | | | Eosinophils | | K/uL | LAB | | + + + + + + | Absolute | 0.06Comment: Testing | 0.00 - 0.10 | EXTERNAL | | | Basophils | performed at [facility], [address] | K/uL | LAB | | | | [address], | | | | | | [place] [address] | | | | + + + + + + + + | Specimen | + + | Blood specimen | | (specimen) | + + + +---------+ + + | Performing | Address | City/State/Zipcode | Phone Number | | Organization | | | | + +---------+ + + | EXTERNAL LAB | | | | + +---------+ + + TSH (01/14/2018 5:28 AM PDT) + + + + + + | Component | Value | Ref Range | Performed | Pathologist | | | | | At | Signature | + + + + + + | TSI | 0.540Comment: Testing | 0.450 - 5.100 | EXTERNAL | | | | performed at [facility], [address] | uIU/mL | LAB | | | | [address], | | | | | | [place] [address] | | | | + + + + + + + + | Specimen | + + | Blood specimen | | (specimen) | + + + +---------+ + + | Performing | Address | City/State/Zipcode | Phone Number | | Organization | | | | + +---------+ + + | EXTERNAL LAB | | | | + +---------+ + + Phosphorus (01/14/2018 5:28 AM PDT) + + + + + + | Component | Value | Ref Range | Performed | Pathologist | | | | | At | Signature | + + + + + + | PHOSPHORUS | 2.6Comment: Testing | 2.3 - 4.8 mg/dL | EXTERNAL | | | | performed at [facility], [address] | | LAB | | | | [address], | | | | | | [place] [address] | | | | + + + + + + + + | Specimen | + + | Blood specimen | | (specimen) | + + + +---------+ + + | Performing | Address | City/State/Zipcode | Phone Number | | Organization | | | | + +---------+ + + | EXTERNAL LAB | | | | + +---------+ + + Magnesium (01/14/2018 5:28 AM PDT) + + + + + [...] | | | | [place] [address] | | | | + + + + + + + + | Specimen | + + | Blood specimen | | (specimen) | + + + +---------+ + + | Performing | Address | City/State/Zipcode | Phone Number | | Organization | | | | + +---------+ + + | EXTERNAL LAB | | | | + +---------+ + + Hemoglobin A1C (01/14/2018 5:28 AM PDT) + + + + + + | Component | Value | Ref Range | Performed | Pathologist | | | | | At | Signature | + + + + + + | Hemoglobin | 11.4 (H)Comment: The | 4.0 - 6.0 % | EXTERNAL | | | A1c | [facility] | | LAB | | | [...] | | | | | | reference method. | | | | + + + + + + | Glycohemogl | 280Comment: The ADA | mg/dL | EXTERNAL | [...] | | | | | performed at [facility], [address] | | | | | | [facility], | | | | | | [place] [address] | | | | + + + + + + + + | Specimen | + + | Blood specimen | | (specimen) | + + + +---------+ + + | Performing | Address | City/State/Zipcode | Phone Number | | Organization | | | | + +---------+ + + | EXTERNAL LAB | | | | + +---------+ + + Lipid Panel (01/14/2018 5:28 AM PDT) + + + + + + | Component | Value | Ref Range | Performed | Pathologist | | | | | At | Signature | + + + + + + | Cholesterol | 136 | mg/dL | EXTERNAL | | | | | | LAB | | + + + + + + | Triglycerid | 111 | mg/dL | EXTERNAL | | | es | | | LAB | | + + + + + + | HDL | 51 | mg/dL | EXTERNAL | | | | | | LAB | | + + + + + + | LDL | 63Comment: Testing | mg/dL | EXTERNAL | | | Cholesterol | performed at [facility], [address] | | LAB | | | , | [address], | | | | | Calculated, | [place] [address] | | | | | External | | | | | + + [...] + +---------+ + + Comprehensive Metabolic Panel (01/14/2018 5:28 AM PDT) + + + + + + | Component | Value | Ref Range | Performed | Pathologist | | | | | At | Signature | + + + + + + | Na | 137 | 135 - 145 | EXTERNAL | | | | | mmol/L | LAB | | + + + + + + | K | 3.8 | 3.5 - 4.9 | EXTERNAL | | | | | mmol/L | LAB | | + + + + + + | Cl | 103 | 99 - 109 mmol/L | EXTERNAL | | | | | | LAB | | + + + + + + | CO2 | 26 | 23 - 32 mmol/L | EXTERNAL | | | | | | LAB | | + + + + + + | Anion Gap | 12 | 5 - 20 mmol/L | EXTERNAL | | | | | | LAB | | + + + + + + | Glucose, | 80 | 65 - 99 mg/dL | EXTERNAL | | | Fasting | | | LAB | | + + + + + + | BUN | 25 | 8 - 25 mg/dL | EXTERNAL | | | | | | LAB | | + + + + + + | Creatinine | 1.1 | 0.70 - 1.30 | EXTERNAL | | | | | mg/dL | LAB | | + + + + + + | BUN/Creatin | 23 | | EXTERNAL | | | ine Ratio | | | LAB | | + + + + + + | Calcium | 8.9 | 8.5 - 10.5 | EXTERNAL | | | | | mg/dL | LAB | | + + + + + + | Protein, | 8.0 | 6.3 - 8.2 g/dL | EXTERNAL | | | Total | | | LAB | | + + + + + + | Albumin | 3.2 (L) | 3.6 - 5.0 g/dL | EXTERNAL | | | | | | LAB | | + + + + + + | Globulin | 4.8 | 1.3 - 4.9 g/dL | EXTERNAL | | | | | | LAB | | + + + + + + | A/G Ratio | 0.7 (L) | 1.0 - 2.4 | EXTERNAL | | | | | | LAB | | + + + + + + | Bilirubin | 2.6 (H) | 0.1 - 1.5 mg/dL | EXTERNAL | | | Total | | | LAB | | + + + + + + | ALP, | 131 (H) | 35 - 115 U/L | EXTERNAL | | | External | | | LAB | | + + + + + + | AST | 21 | 10 - 45 U/L | EXTERNAL | | | | | | LAB | | + + + + + + | ALT | 21 | 10 - 65 U/L | EXTERNAL | | | | | | LAB | | + + + + + [...] [address], | | | | | | [place] [address] | | | | + + + + + + + + | Specimen | + + | Blood specimen | | (specimen) | + + + +---------+ + + | Performing | Address | City/State/Zipcode | Phone Number | | Organization | | | | + +---------+ + + | EXTERNAL LAB | | | | + +---------+ + + POC Glucose (01/14/2018 5:08 AM PDT) + + + + + + | Component | Value | Ref Range | Performed | Pathologist | | | | | At | Signature | + + + + + + | Glucose, | 78Comment: Testing | 65 - 99 mg/dL | EXTERNAL | | | Fingerstick | performed at [facility];[address] | | LAB | | | | [address];[place], [place] | | | | | | [address] | | | | + + + + + + + + | Specimen | + + | | + + + +---------+ + + | Performing | Address | City/State/Zipcode | Phone Number | | Organization | | | | + +---------+ + + | EXTERNAL LAB | | | | + +---------+ + + CK-MB (01/13/2018 11:50 PM PDT) + + + + + -+ | Component | Value | Ref Range | Performed | Pathologist | | | | | At | Signature | + + + + + -+ | CK-MB | 1.9 | 0.5 - 3.6 ng/mL | EXTERNAL | | | | | | LAB | | + + + + + -+ | CK-MB Index | 2.4Comment: CK INDEX | | EXTERNAL | | | | INTERPRETATION: | | LAB | | | | MMB ng/mL | | | | | | | | | | | |CK INDEX INTERPRETATION: | | | | | | MMB ng/mL | | | | | | | | | | + + + + + -+ + + | Specimen | + + | Blood specimen | | (specimen) | + + + +---------+ + + | Performing | Address | City/State/Zipcode | Phone Number | | Organization | | | | + +---------+ + + | EXTERNAL LAB | | | | + +---------+ + + CK Total (01/13/2018 11:50 PM PDT) + + + + + + | Component | Value | Ref Range | Performed | Pathologist | | | | | At | Signature | + + + + + + | CK, Total | 79Comment: Testing | 55 - 400 U/L | EXTERNAL | | | | performed at [facility];[address] | | LAB | | | | [address];[place], [place] | | | | | | [address] | | | | + + + + + + + + | Specimen | + + | Blood specimen | | (specimen) | + + + +---------+ + + | Performing | Address | City/State/Zipcode | Phone Number | | Organization | | | | + +---------+ + + | EXTERNAL LAB | | | | + +---------+ + + POC Glucose (01/13/2018 9:02 PM PDT) + + + + + + | Component | Value | Ref Range | Performed | Pathologist | | | | | At | Signature | + + + + + + | Glucose, | 127 (H)Comment: Testing | 65 - 99 mg/dL | EXTERNAL | | | Fingerstick | performed at [facility];[address] | | LAB | | | | [address];[place] | | | | | | [address] | | | | + + + + + + + + | Specimen | + + | | + + + +---------+ + + | Performing | Address | City/State/Zipcode | Phone Number | | Organization | | | | + +---------+ + + | EXTERNAL LAB | | | | + +---------+ + + CK-MB (01/13/2018 7:51 PM PDT) + + + + + -+ | Component | Value | Ref Range | Performed | Pathologist | | | | | At | Signature | + + + + + -+ | CK-MB | 1.8 | 0.5 - 3.6 ng/mL | EXTERNAL | | | | | | LAB | | + + + + + -+ | CK-MB Index | 2.1Comment: CK INDEX | | EXTERNAL | | | | INTERPRETATION: | | LAB | | | | MMB ng/mL | | | | | | | | | | | |CK INDEX INTERPRETATION: | | | | | | MMB ng/mL | | | | | | | | | | + + + + + -+ + + | Specimen | + + | Blood specimen | | (specimen) | + + + +---------+ + + | Performing | Address | City/State/Zipcode | Phone Number | | Organization | | | | + +---------+ + + | EXTERNAL LAB | | | | + +---------+ + + Troponin I (01/13/2018 7:51 PM PDT) + + + + + + | Component | Value | Ref Range | Performed | Pathologist | | | | | At | Signature | + + + + + + | Troponin I, | <0.020Comment: 0.00 to | 0.00 - 0.10 | EXTERNAL | | | Qual | 0.10 CONSISTENT WITH | ng/mL | LAB | | | | NORMAL POPULATION0.11 | | | | | | to 0.60 CONSISTENT | | | | | | WITH INCREASED RISK FOR | | | | | | ADVERSE OUTCOMES> 0.60 | | | | | | CONSISTENT | | | | | | WITH WHO CRITERIA FOR | | | | | | ACUTE DE Testing | | | | | | performed at [facility] | | | | | | [facility];[place], [place] | | | | | | [address] | | | | + + + + + + + + | Specimen | + + | Blood specimen | | (specimen) | + + + +---------+ + + | Performing | Address | City/State/Zipcode | Phone Number | | Organization | | | | + +---------+ + + | EXTERNAL LAB | | | | + +---------+ + + CK Total (01/13/2018 7:51 PM PDT) + + + + + + | Component | Value | Ref Range | Performed | Pathologist | | | | | At | Signature | + + + + + + | CK, Total | 84Comment: Testing | 55 - 400 U/L | EXTERNAL | | | | performed at [facility] | | LAB | | | | [address];[place], [place] | | | | | | [address] | | | | + + + + + + + + | Specimen | + + | Blood specimen | | (specimen) | + + + +---------+ + + | Performing | Address | City/State/Zipcode | Phone Number | | Organization | | | | + +---------+ + + | EXTERNAL LAB | | | | + +---------+ + + POC Glucose (01/13/2018 6:26 PM PDT) + + + + + + | Component | Value | Ref Range | Performed | Pathologist | | | | | At | Signature | + + + + + + | Glucose, | 147 (H)Comment: Testing | 65 - 99 mg/dL | EXTERNAL | | | Fingerstick | performed at [facility];[address] | | LAB | | | | [address];[place] | | | | | | [address] | | | | + + + + + + + + | Specimen | + + | | + + + +---------+ + + | Performing | Address | City/State/Zipcode | Phone Number | | Organization | | | | + +---------+ + + | EXTERNAL LAB | | | | + +---------+ + + POC Glucose (01/13/2018 4:41 PM PDT) + + + + + + | Component | Value | Ref Range | Performed | Pathologist | | | | | At | Signature | + + + + + + | Glucose, | 176 (H)Comment: Testing | 65 - 99 mg/dL | EXTERNAL | | | Fingerstick | performed at [facility];[address] | | LAB | | | | [address];[place] | | | | | | [address] | | | | + + + + + + + + | Specimen | + + | | + + + +---------+ + + | Performing | Address | City/State/Zipcode | Phone Number | | Organization | | | | + +---------+ + + | EXTERNAL LAB | | | | + +---------+ + + CK-MB (01/13/2018 3:45 PM PDT) + + + + + -+ | Component | Value | Ref Range | Performed | Pathologist | | | | | At | Signature | + + + + + -+ | CK-MB | 1.7 | 0.5 - 3.6 ng/mL | EXTERNAL | | | | | | LAB | | + + + + + -+ | CK-MB Index | 2.1Comment: CK INDEX | | EXTERNAL | | | | INTERPRETATION: | | LAB | | | | MMB ng/mL | | | | | | | | | | | |CK INDEX INTERPRETATION: | | | | | | MMB ng/mL | | | | | | | | | | + + + + + -+ + + | Specimen | + + | Blood specimen | | (specimen) | + + + +---------+ + + | Performing | Address | City/State/Zipcode | Phone Number | | Organization | | | | + +---------+ + + | EXTERNAL LAB | | | | + +---------+ + + Troponin I (01/13/2018 3:45 PM PDT) + + + + + + | Component | Value | Ref Range | Performed | Pathologist | | | | | At | Signature | + + + + + + | Troponin I, | <0.020Comment: 0.00 to | 0.00 - 0.10 | EXTERNAL | | | Qual | 0.10 CONSISTENT WITH | ng/mL | LAB | | | | NORMAL POPULATION0.11 | | | | | | to 0.60 CONSISTENT | | | | | | WITH INCREASED RISK FOR | | | | | | ADVERSE OUTCOMES> 0.60 | | | | | | CONSISTENT | | | | | | WITH WHO CRITERIA FOR | | | | | | ACUTE DE Testing | | | | | | performed at [facility];[address] | | | | | | [address];[place], [place] | | | | | | [address] | | | | + + + + + + + + | Specimen | + + | | + + + +---------+ + + | Performing | Address | City/State/Zipcode | Phone Number | | Organization | | | | + +---------+ + + | EXTERNAL LAB | | | | + +---------+ + + CK Total (01/13/2018 3:45 PM PDT) + + + + + + | Component | Value | Ref Range | Performed | Pathologist | | | | | At | Signature | + + + + + + | CK, Total | 82Comment: Testing | 55 - 400 U/L | EXTERNAL | | | | performed at [facility];[address] | | LAB | | | | [address];[place], [place] | | | | | | [address] | | | | + + + + + + + + | Specimen | + + | Blood specimen | | (specimen) | + + + +---------+ + + | Performing | Address | City/State/Zipcode | Phone Number | | Organization | | | | + +---------+ + + | EXTERNAL LAB | | | | + +---------+ + + ECHO Complete (01/13/2018 2:12 PM PDT) + + | Specimen | + + | | + + + + + | Impressions | Performed At | + + + | 1. Overall left ventricular systolic function is normal with, an EF | | | between 60 - 65 %. | | + + + + + + | Narrative | Performed At | + + + | Patient Name: KULDIP MC Date of : 1965 | | | Performing Physician: Dereck Galicia | | | | | | INDICATIONS abnormal ekg CONCLUSIONS | | | 1. Overall left ventricular systolic function is normal with, an EF | | | between 60 - 65 %. FINDINGS -------- ECG rhythm: Sinus rhythm. | | | Study: A 2-dimensional transthoracic echocardiogram with m-mode, | | | spectral and color flow Doppler was perfomed. Study: This was a | | | technically difficult study with suboptimal views. Left Ventricle: | | | Overall left ventricular systolic function is normal with, an EF | | | between 60 - 65 %. Left Ventricle: The left ventricle cavity size is | | | normal. Left Ventricle: Left ventricular wall thickness is normal. | | | Left Ventricle: The diastolic filling pattern is normal for the age of | | | the patient. Right Ventricle: The right ventricle is normal in size. | | | Left Atrium: The left atrial size is normal. Right Atrium: The | | | right atrial size is normal. Aortic Valve: The aortic valve is | | | trileaflet and appears structurally normal. Aortic Valve: There is | | | mild aortic valve sclerosis without stenosis. Aortic Valve: There is | | | no evidence of aortic regurgitation. Mitral Valve: Mild mitral | | | regurgitation is present. Mitral Valve: Mild mitral annular | | | calcification present. Tricuspid Valve: Mild tricuspid regurgitation | | | present. Tricuspid Valve: The poor TR signal prevents accurate | | | estimation of pulmonary pressures. Pulmonic Valve: The pulmonic valve | | | was not well visualized. Pericardium: There is no pericardial | | | effusion. IVC/Hepatic Veins: The IVC is normal size (1.5-2.5cm) and | | | collapses >50% with sniff, consistent with central venous pressures of | | | 5-10mmHg. MEASUREMENTS Ao asc: 3.22 cm Ao | | | sinus: 3.[address] junct: 2.76 cm IVC: 1.76 cm | | | EDV(Teich): 69.71 ml IVSd: 1.16 cm LVIDd: 3.99 cm LVPWd: | | | 0.86 cm LVOT Diam: 2.23 cm %FS: 37.86 % EF(Teich): | | | 68.57 % ESV(Teich): 21.90 ml IVSs: 1.22 cm LVIDs: 2.48 cm | | | LVPWs: 1.54 cm SV(Teich): 47.80 ml RA Major: 4.25 cm | | | RVIDd: 3.36 cm LVEF MOD A2C: 64.07 % SV MOD A2C: 35.84 ml | | | LVEF MOD A4C: 62.40 % SV MOD A4C: 39.54 ml EF Biplane: | | | 65.67 % LVEDV MOD BP: 61.30 ml LVESV MOD BP: 21.04 ml LVEDV | | | MOD A2C: 55.94 ml LVLd A2C: 8.66 cm LVEDV MOD A4C: 63.37 ml | | | LVLd A4C: 8.10 cm LVESV MOD A2C: 20.09 ml LVLs A2C: 6.96 | | | cm LVESV MOD A4C: 23.82 ml LVLs A4C: 7.05 cm LAESV(A-L): | | | 33.88 ml LAESV Index (A-L): 16.36 ml/m2 LAAs A2C: 13.19 cm2 | | | LAESV A-L A2C: 34.91 ml LALs A2C: 4.23 cm LAAs A4C: 11.37 | | | cm2 LAESV A-L A4C: 29.21 ml LALs A4C: 3.75 cm Samantha: 13.57 | | | cm2 RAEDV A-L: 35.22 ml RAEDV MOD: 30.46 ml RALd: 4.44 cm | | | TAPSE: 1.67 cm HR: 82.18 BPM AV maxP.19 mmHg AV | | | meanP.99 mmHg AV Vmax: 0.89 m/s AV Vmean: 0.69 m/s AV | | | VTI: 18.16 cm YESENIA Vmax: 3.34 cm2 YESENIA (VTI): 3.51 cm2 AVAI | | | Vmax: 0.00 cm2/m2 AVAI (VTI): 0.00 cm2/m2 LVCI Dopp: 2.41 | | | l/minm2 LVCO Dopp: 5.00 l/min HR: 78.46 BPM LVOT maxPG: | | | 2.34 mmHg LVOT meanP.26 mmHg LVSI Dopp: 30.82 ml/m2 LVSV | | | Dopp: 63.80 ml LVOT Vmax: 0.76 m/s LVOT Vmean: 0.54 m/s | | | LVOT VTI: 16.32 cm MCO: 439.44 ms MV A Star: 0.60 m/s MV | | | DecT: 246.60 ms MV E Star: 0.42 m/s MV E/A Ratio: 0.70 E/E' | | | Sept: 6.55 E' Sept: 0.06 m/s MV PHT: 65.52 ms MVA By PHT: | | | 3.35 cm2 MV A Dur: 114.18 ms P Vein A: 0.40 m/s P Vein D: | | | 0.46 m/s P Vein S/D Ratio: 1.54 P Vein S: 0.71 m/s HR: | | | 82.57 BPM PV maxP.28 mmHg PV meanP.00 mmHg PV Vmax: | | | 0.56 m/s PV Vmean: 0.49 m/s PV VTI: 12.88 cm RAP: 3 | | | mmHg TV A Star: 0.46 m/s TV Dec [facility] [place]: 2.14 m/s2 TV Dec Time: | | | 223.61 ms TV E Star: 0.47 m/s TV E/A Ratio: 1.03 | | | Gas Pumping Station Helper: DIDI Authenticated by: Dereck Galicia Report | | | Date/Time: 01-13-2018 17:21:41 | | + + + + + | Procedure Note | + + | Glenn Valle Conversion - 05/15/2019 8:55 AM PDT Patient Name: Esvin MC of | | : 1965 Performing Physician: Dereck | | Frida INDICATIONS----- | | ------abnormal ekg CONCLUSIONS 1. Overall left ventricular systolic function | | is normal with, an EF between 60 - 65 %. FINDINGS--------ECG rhythm: Sinus rhythm.Study: | | A 2-dimensional transthoracic echocardiogram with m-mode, spectral and color flow | | Doppler was perfomed.Study: This was a technically difficult study with suboptimal | | views.Left Ventricle: Overall left ventricular systolic function is normal with, an EF | | between 60 - 65 %.Left Ventricle: The left ventricle cavity size is normal.Left | | Ventricle: Left ventricular wall thickness is normal.Left Ventricle: The diastolic | | filling pattern is normal for the age of the patient.Right Ventricle: The right | | ventricle is normal in size.Left Atrium: The left atrial size is normal.Right Atrium: | | The right atrial size is normal.Aortic Valve: The aortic valve is trileaflet and appears | | structurally normal.Aortic Valve: There is mild aortic valve sclerosis without | | stenosis.Aortic Valve: There is no evidence of aortic regurgitation.Mitral Valve: Mild | | mitral regurgitation is present.Mitral Valve: Mild mitral annular calcification | | present.Tricuspid Valve: Mild tricuspid regurgitation present.Tricuspid Valve: The poor | | TR signal prevents accurate estimation of pulmonary pressures.Pulmonic Valve: The | | pulmonic valve was not well visualized.Pericardium: There is no pericardial | | effusion.IVC/Hepatic Veins: The IVC is normal size (1.5-2.5cm) and collapses >50% with | | sniff, consistent with central venous pressures of 5-10mmHg. MEASUREMENTS Ao | | asc: 3.22 cmAo sinus: 3.[address] junct: 2.76 cmIVC: 1.76 cmEDV(Teich): | | 69.71 mlIVSd: 1.16 cmLVIDd: 3.99 cmLVPWd: 0.86 cmLVOT Diam: 2.23 cm%FS: 37.86 | | %EF(Teich): 68.57 %ESV(Teich): 21.90 mlIVSs: 1.22 cmLVIDs: 2.48 cmLVPWs: 1.54 | | cmSV(Teich): 47.80 mlRA Major: 4.25 cmRVIDd: 3.36 cmLVEF MOD A2C: 64.07 %SV MOD | | A2C: 35.84 mlLVEF MOD A4C: 62.40 %SV MOD A4C: 39.54 mlEF Biplane: 65.67 %LVEDV | | MOD BP: 61.30 mlLVESV MOD BP: 21.04 mlLVEDV MOD A2C: 55.94 mlLVLd A2C: 8.66 | | cmLVEDV MOD A4C: 63.37 mlLVLd A4C: 8.10 cmLVESV MOD A2C: 20.09 mlLVLs A2C: 6.96 | | cmLVESV MOD A4C: 23.82 mlLVLs A4C: 7.05 cmLAESV(A-L): 33.88 mlLAESV Index (A-L): | | 16.36 ml/m2LAAs A2C: 13.19 [id number] A-L A2C: 34.91 mlLALs A2C: 4.23 cmLAAs A4C: | | 11.37 [id number] A-L A4C: 29.21 mlLALs A4C: 3.75 cmRAAd: 13.57 [id number] A-L: | | 35.22 mlRAEDV MOD: 30.46 mlRALd: 4.44 cmTAPSE: 1.67 cmHR: 82.18 BPMAV maxPG: | | 3.19 mmHgAV meanP.99 mmHgAV Vmax: 0.89 m/Simran Vmean: 0.69 m/Simran VTI: 18.16 | | cmAVA Vmax: 3.34 cm2AVA (VTI): 3.51 [id number] Vmax: 0.00 cm2/m2AVAI (VTI): 0.00 | | cm2/m2LVCI Dopp: 2.41 l/[id number] Dopp: 5.00 l/minHR: 78.46 BPMLVOT maxP.34 | | mmHgLVOT meanP.26 mmHgLVSI Dopp: 30.82 ml/m2LVSV Dopp: 63.80 mlLVOT Vmax: | | 0.76 m/sLVOT Vmean: 0.54 m/sLVOT VTI: 16.32 cmMCO: 439.44 msMV A Star: 0.60 m/sMV | | DecT: 246.60 msMV E Star: 0.42 m/sMV E/A Ratio: 0.70E/E' Sept: 6.55E' Sept: | | 0.06 m/sMV PHT: 65.52 msMVA By PHT: 3.35 cm2MV A Dur: 114.18 msP Vein A: 0.40 | | m/sP Vein D: 0.46 m/sP Vein S/D Ratio: 1.54P Vein S: 0.71 m/sHR: 82.57 BPMPV | | maxP.28 mmHgPV meanP.00 mmHgPV Vmax: 0.56 m/sPV Vmean: 0.49 m/sPV VTI: | | 12.88 cmRAP: 3 mmHgTV A Star: 0.46 m/sTV Dec [facility]: 2.14 m/s2TV Dec Time: 223.61 | | msTV E Star: 0.47 m/sTV E/A Ratio: 1.03 [employer] Pumping Station Helper: Nishaticated by: Dereck | | RominalaReport Date/Time: 01-13-2018 17:21:41 IMPRESSION: 1. Overall left ventricular | | systolic function is normal with, an EF between 60 - 65 %. | |EDV(Teich): 69.71 ml | |IVSd: 1.16 cm | |LVIDd: 3.99 cm | |LVPWd: 0.86 cm | |LVOT Diam: 2.23 cm | |%FS: 37.86 % | |EF(Teich): 68.57 % | |ESV(Teich): 21.90 ml | |IVSs: 1.22 cm | |LVIDs: 2.48 cm | |LVPWs: 1.54 cm | |SV(Teich): 47.80 ml | |RA Major: 4.25 cm | |RVIDd: 3.36 cm | |LVEF MOD A2C: 64.07 % | |SV MOD A2C: 35.84 ml | |LVEF MOD A4C: 62.40 % | |SV MOD A4C: 39.54 ml | |EF Biplane: 65.67 % | |LVEDV MOD BP: 61.30 ml | |LVESV MOD BP: 21.04 ml | |LVEDV MOD A2C: 55.94 ml | |LVLd A2C: 8.66 cm | |LVEDV MOD A4C: 63.37 ml | |LVLd A4C: 8.10 cm | |LVESV MOD A2C: 20.09 ml | |LVLs A2C: 6.96 cm | |LVESV MOD A4C: 23.82 ml | |LVLs A4C: 7.05 cm | |LAESV(A-L): 33.88 ml | |LAESV Index (A-L): 16.36 ml/m2 | |LAAs A2C: 13.19 cm2 | |LAESV A-L A2C: 34.91 ml | |LALs A2C: 4.23 cm | |LAAs A4C: 11.37 cm2 | |LAESV A-L A4C: 29.21 ml | |LALs A4C: 3.75 cm | |Samantha: 13.57 cm2 | |RAEDV A-L: 35.22 ml | |RAEDV MOD: 30.46 ml | |RALd: 4.44 cm | |TAPSE: 1.67 cm | |HR: 82.18 BPM | |AV maxP.19 mmHg | |AV meanP.99 mmHg | |AV Vmax: 0.89 m/s | |AV Vmean: 0.69 m/s | |AV VTI: 18.16 cm | |YESENIA Vmax: 3.34 cm2 | |YESENIA (VTI): 3.51 cm2 | |AVAI Vmax: 0.00 cm2/m2 | |AVAI (VTI): 0.00 cm2/m2 | |LVCI Dopp: 2.41 l/minm2 | |LVCO Dopp: 5.00 l/min | |HR: 78.46 BPM | |LVOT maxP.34 mmHg | |LVOT meanP.26 mmHg | |LVSI Dopp: 30.82 ml/m2 | |LVSV Dopp: 63.80 ml | |LVOT Vmax: 0.76 m/s | |LVOT Vmean: 0.54 m/s | |LVOT VTI: 16.32 cm | |MCO: 439.44 ms | |MV A Star: 0.60 m/s | |MV DecT: 246.60 ms | |MV E Star: 0.42 m/s | |MV E/A Ratio: 0.70 | |E/E' Sept: 6.55 | |E' Sept: 0.06 m/s | |MV PHT: 65.52 ms | |MVA By PHT: 3.35 cm2 | |MV A Dur: 114.18 ms | |P Vein A: 0.40 m/s | |P Vein D: 0.46 m/s | |P Vein S/D Ratio: 1.54 | |P Vein S: 0.71 m/s | |HR: 82.57 BPM | |PV maxP.28 mmHg | |PV meanP.00 mmHg | |PV Vmax: 0.56 m/s | |PV Vmean: 0.49 m/s | |PV VTI: 12.88 cm | |RAP: 3 mmHg | |TV A Star: 0.46 m/s | |TV Dec [facility]: 2.14 m/s2 | |TV Dec Time: 223.61 ms | |TV E Star: 0.47 m/s | |TV E/A Ratio: 1.03 | | | |Gas Pumping Station Helper: GD | |Authenticated by: Dereck Galicia | |Report Date/Time: 01-13-2018 17:21:41 | | | |IMPRESSION: | |1. Overall left ventricular systolic function is normal with, an EF between 60 - 65 %. | + + POC Glucose (01/13/2018 1:38 PM PDT) + + + + + + | Component | Value | Ref Range | Performed | Pathologist | | | | | At | Signature | + + + + + + | Glucose, | 111 (H)Comment: Testing | 65 - 99 mg/dL | EXTERNAL | | | Fingerstick | performed at [facility];[address] | | LAB | | | | [address];[place], [place] | | | | | | [address] | | | | + + + + + + + + | Specimen | + + | | + + + +---------+ + + | Performing | Address | City/State/Zipcode | Phone Number | | Organization | | | | + +---------+ + + | EXTERNAL LAB | | | | + +---------+ + + Troponin I (01/13/2018 12:42 PM PDT) + + + + + + | Component | Value | Ref Range | Performed | Pathologist | | | | | At | Signature | + + + + + + | Troponin I, | <0.020Comment: 0.00 to | 0.00 - 0.10 | EXTERNAL | | | Qual | 0.10 CONSISTENT WITH | ng/mL | LAB | | | | NORMAL POPULATION0.11 | | | | | | to 0.60 CONSISTENT | | | | | | WITH INCREASED RISK FOR | | | | | | ADVERSE OUTCOMES> 0.60 | | | | | | CONSISTENT | | | | | | WITH WHO CRITERIA FOR | | | | | | ACUTE DE Testing | | | | | | performed at [facility];[address] | | | | | | [address];[place], [place] | | | | | | [address] | | | | + + + + + + + + | Specimen | + + | Blood specimen | | (specimen) | + + + +---------+ + + | Performing | Address | City/State/Zipcode | Phone Number | | Organization | | | | + +---------+ + + | EXTERNAL LAB | | | | + +---------+ + + MRSA NAAT (01/13/2018 12:35 PM PDT) + + | Specimen | + + | | + + + + + | Narrative | Performed At | + + + | SOURCE NARES(NOSE) MRSA | EXTERNAL LAB | | PCR POSITIVE for MRSA by | | | PCRAbnormal Testing performed at [facility];[address] [facility];[place] [address] | | + + + + +---------+ + + | Performing | Address | City/State/Zipcode | Phone Number | | Organization | | | | + +---------+ + + | EXTERNAL LAB | | | | + +---------+ + + documented in this encounter Visit Diagnoses Not on filedocumented in this encounter Additional Health Concerns + + + + | Infection | Noted Time | Resolved Time | + + + + | Methicillin-resistant Staphylococcus aureus | 12/15/2016 12:00 AM | | | | PDT | | + + + + documented as of this encounter
--- OUTSIDE RECORDS SUMMARY | ~2019-08-11 | XMS | Clinical Summary ---
Demographics + + + | Address | [address] [place] [address] RD | | | [place] [address] | + + + | Home Phone | | + + + | Preferred Language | Unknown | + + + | Marital Status | Single | + + + | Gnosticism Affiliation | [id number] | + + + | Race | Unknown | + + + | Ethnic Group | Unknown | + + + Author + + + | Author | [facility] | | | and [place] | + + + | Organization | [facility] | | [...] Team Providers + +------+ + | Care Attending Pathologist Name | Role | Phone | + [...] + +---------+------+------+-------+ | insulin glargine | Inject 40 Units | | 0 | | | Activ | | (LANTUS) 100 | under the skin | | | | | e | | units/mL injection | nightly. | | | | | | | (vial) | | | | | | | + + + +---------+------+------+-------+ | insulin aspart | Inject 20 Units | | 0 | | | Activ | | (NOVOLOG) 100 | under the skin 3 | | | | | e | | units/mL injection | times daily (before | | | | | | | | meals). | | | | | | + + + +---------+------+------+-------+ | lisinopril | Take 5 mg by mouth | | 0 | | | Activ | | (PRINIVIL, ZESTRIL) | Daily. | | | | | e | | 5 mg tablet | | [...] | | + + + +---------+------+------+-------+ | levoFLOXacin | take 1 tablet by | | 0 | 09/0 | | Activ | | (LEVAQUIN) 500 mg | mouth daily | | | 9/20 | | e | | tablet | | | | 18 | | | + + + +---------+------+------+-------+ | lisinopril | | | 0 | 01/1 | | Activ | | (PRINIVIL, ZESTRIL) | | | | 0/20 | | e | | 10 mg tablet | | | | 19 | | | + + + +---------+------+------+-------+ [...] | + + + +---------+------+------+-------+ | insulin aspart | Inject 12 Units into | | 0 | | | Activ | | (NOVOLOG) 100 | the skin 3 (three) | | | | | e | | units/mL injection | times daily. | | | | | | + + + +---------+------+------+-------+ | insulin glargine | Inject 20 Units into | | 0 | | | Activ | | (LANTUS SOLOSTAR) | the skin nightly. | | | | | e | | 100 units/mL | | | | | | | | injection (pen) | | | | | | | + + + +---------+------+------+-------+ | insulin glargine | Inject 18 Units into | | 0 | | | Activ | | (LANTUS) 100 | the skin After | | | | | e | | units/mL injection | dinner. | | | | | | | (vial) | | | | | | | + + + +---------+------+------+-------+ | lisinopril | Take 1 tablet by | | 0 | 09/0 | | Activ | | (PRINIVIL, ZESTRIL) | mouth daily. | | | 7/20 | | e | | 20 mg tablet | | | | 16 | | | + + + +---------+------+------+-------+ Active Problems + + + | Problem | Noted Date | + + + | Skin ulcer [...] + + + | Overview: Problem list stopper maker utility | + + + +---+ | [...] +---+ | Diabetes | | + +---+ Encounters +--------+ + + + + | Date | Type | Specialty | Care Team | Description | +--------+ + + + + | 05/12/ | Orders Only | | Provider, | | | 2019 | | | Historical, MD | | +--------+ + + + + from Last 3 Months Family History + + + + + [...] recent travel history available. | + + Last Filed Vital Signs + + + + + | Vital Sign | Reading | Time Taken | Comments | + + + + + | Blood Pressure | 126/89 | 11/20/2018 5:54 PM | | | | | PST | | + + + + + | Pulse | 87 | 11/20/2018 5:54 PM | | | | | PST | | + + + + + | Temperature | 36.5 C (97.7 F) | 11/20/2018 5:54 PM | | | | | PST | | + + + + + | Respiratory Rate | 18 | 11/20/2018 5:54 PM | | | | | PST | | + + + + + | Oxygen Saturation | 99% | 10/16/2018 3:18 PM | | | | | PST | | + + + + + | Inhaled Oxygen | - | - | | | Concentration | | | | + + + + + | Weight | 86.2 kg (190 lb) | 11/20/2018 5:54 PM | | | | | PST | | + + + + + | Height | 177.8 cm (5' 10") | 10/16/2018 3:18 PM | | | | | PST | | + + + + + | Body Mass Index | 27.26 | 10/16/2018 3:18 PM | | | [...] Vaccine: Influenza | | | | | (#1) | 9 | | | + + + + [...] | | t Plan | ID | olvin | | | | | | / | | Dates | | | | | | Group | | | | | | + +--------+ +--------+ +---------+--------+ | [employer] | [employer] | [id number] | | [phone] | | Medica | | MEDICAID HMO | HEALTH | | 018-Pr | 1 | | id | | | MDCD | | esent | | | | | | [place]MO [place] | | | | | | + +--------+ +--------+ +---------+--------+ | [facility] | [facility] | [id number] | | | | Indemn | | SERVICE | YELLOW | | 015-Pr | | | ity | | | [...] Person | Self | [birth year] | [address] | | | al/Fam | | 1965 | [phone] | [place] | | | vikas | | | [address] (Home) | [address] | + +--------+ +--------+ + + Advance Directives + + + + + | Type | Date Recorded | Patient | Explanation | | | | Janitorial Tech | | + + + + + | Power of | | | | | Unit Operator | | | | + + + + + | Advance | | | | | Directive | | | | + + + + +
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
--- OUTSIDE RECORDS SUMMARY | ~2019-08-11 | XMS | Encounter Summary ---
Demographics + + + | Address | [address] | | | [place] [address] | + + + | Home Phone [...] + + | Author | [facility] | | | and [place] | + + + | Organization | [facility] | | | [...] Team Providers + +------+ + | Care Customer Supply Coordinator Name | Role | Phone | + [...] antibody | [address], | | | | | positive | [place], [place] | [address] [address] | | | | | Chronic | [address] [place] | [place], | | | | | diarrhea | [place], [place] | [place] [address] | | | | | Procedures | [id number] | Phone: | | | | | [place] | Phone: | [phone] | | | | | COLONOSCOPY | [phone] | Fax: | | | | | FLX DX | Fax: | [phone] | | | | | W/COLLJ SPEC | [phone] | | | | | | WHEN PFRMD | | | | | | | [place] | | | | | | | COLONOSCOPY | | | | | | | W/BIOPSY | | | | | | | SINGLE/MULTI | | | | | | | PLE [place] | | | | | | | COLSC FLX | | | | | | | W/RMVL OF | | | | | | | TUMOR POLYP | | | | | | | LESION SNARE | | | | | | | TQ [place] | | | | | | | ESOPHAGOGAST | | | | | | | RODUODENOSCO | | | | | | | PY TRANSORAL | | | | | | | DIAGNOSTIC | | | | | | | [place] EDG | | | | | | [...] 2015 | | GASTROENTEROLOGY | [address], [place] | (egd/colon ) | | | | [address] [place] | [address] [place], [place] | | | | | [address] [place], [place] | [address] | | | | | [address] | | | | | | [phone] | | | +--------+ + + + [...]
--- OUTSIDE RECORDS SUMMARY | ~2019-08-11 | XMS | Encounter Summary ---
Demographics + + + | Address | [address] | | | [place] [address] | + + + | Home Phone | | + + + | Preferred Language | Unknown | + + + | Marital Status | Single | + + + | Samaritan Affiliation | 1077 | + + + | Race | Unknown | + + + | Ethnic Group | Unknown | + + + Author + + + | Author | [facility] | | | and [place] | + + + | Organization | [facility] | | | and [...] Team Providers + +------+ + | Care Technical Business Systems Analyst Name | Role | Phone | + +------+ + | Estrella Light PA-C | PCP | | + +------+ + Reason for Visit + + + | Reason | Comments | + + + | Hosp No Show | egds,colon | + + + Encounter Details +--------+ + + + + | Date | Type | Department | Care Team | Description | +--------+ + + + + | 04/12/ | Telephone | [facility] | Avi Forde MD | Hosp No Show | | 2015 | | GASTROENTEROLOGY | [address], [place] | (egds,colon) | | | | [address] [place] | [address] [place] | | | | | [address] [place], [place] | [address] | | | | | [address] | | | | | | [phone] | | | +--------+ + + + [...]
--- OUTSIDE RECORDS SUMMARY | ~2019-08-11 | XMS | Encounter Summary ---
Demographics + + + | Address | [address] | | | [place] [address] | + + + | Home Phone [...] Team Providers + +------+ + | Care Dockworker Name | Role | Phone | + +------+ + | Estrella Light PA-C | PCP | | + +------+ + Encounter Details +--------+ + + + + | Date | Type | Department | Care Team | Description | +--------+ + + + + | 09/22/ | Anesthesia | [facility] | Ilya Dodge | | | 2015 | Event | MED CTR MP INTRA OP | MD Ebonie [address] | | | | | [address] | [facility] | | | | | [place] | [place] [address] | | | | | [address] | [phone] | | | | | [phone] | | | +--------+ + + + [...]
--- OUTSIDE RECORDS SUMMARY | ~2019-08-11 | XMS | Encounter Summary ---
Demographics + + + | Address | [address] | | | [place] [address] | + + + | Home Phone | | + + + | Preferred Language | Unknown | + + + | Marital Status | Single | + + + | Episcopal Affiliation | 1077 | + + + | Race | Unknown | + + + | Ethnic Group | Unknown | + + + Author + + + | Author | [facility] | | | and [place] | + + + | Organization | [facility] | | | [...] Team Providers + +------+ + | Care Embossing Machine Tender Name | Role | Phone | + +------+ + | Estrella Light PA-C | PCP | | + +------+ + Encounter Details +--------+ + + + + | Date | Type | Department | Care Team | Description | +--------+ + + + + | 09/22/ | Anesthesia | [facility] | Ilya Dodge | | | 2015 | Event | MED CTR MP INTRA OP | MD Ebonie [address] | | | | | [address] | [facility] | | | | | [place] | [place] [address] | | | | | [address] | [phone] | | | | | [phone] | | | +--------+ + + + [...]
--- OUTSIDE RECORDS SUMMARY | ~2019-08-11 | XMS | Encounter Summary ---
Demographics + + + | Address | [address] | | | [place] [address] | + + + | Home Phone | | + + + | Preferred Language | Unknown | + + + | Marital Status | Single | + + + | Cheondoism Affiliation | 1077 | + + + | Race | Unknown | + + + | Ethnic Group | Unknown | + + + Author + + + | Author | [facility] | | | and [place] | + + + | Organization | [facility] | | | [...] Team Providers + +------+ + | Care Physical Medicine Specialist Name | Role | Phone | + +------+ + | Estrella Light PA-C | PCP | | + +------+ + Reason for Visit + + + | Reason | Comments | + + + | Hosp No Show | | + + + Encounter Details +--------+ + + + + | Date | Type | Department | Care Team | Description | +--------+ + + + + | 04/12/ | Telephone | [facility] | Avi Forde MD | [facility] | | 2015 | | GASTROENTEROLOGY | [address], [place] | | | | | [address] [place] | [address] [place] | | | | | [address] [place], [place] | [address] | | | | | [address] | | | | | | [phone] | | | +--------+ + + + [...]
--- OUTSIDE RECORDS SUMMARY | ~2019-08-11 | XMS | Encounter Summary ---
Demographics + + + | Address | [address] | | | [place] [address] | + + + | Home Phone [...] Team Providers + +------+ + | Care Pipelines Laborer Name | Role | Phone | + [...] | diarrhea | | | | [address] [place], [place] | [address] | | | | | [address] | | | | | | [phone] | | | +--------+ + + + [...]
--- OUTSIDE RECORDS SUMMARY | ~2019-08-11 | XMS | Encounter Summary ---
Demographics + + + | Address | [address] | | | [place] [address] | + + + | Home Phone | | + + + | Preferred Language | Unknown | + + + | Marital Status | Single | + + + | Protestant Affiliation | 1077 | + + + | Race | Unknown | + + + | Ethnic Group | Unknown | + + + Author + + + | Author | [facility] | | | and [place] | + + + | Organization | [facility] | [...] Team Providers + +------+ + | Care Tire Man Name | Role | Phone | + [...] + + | 09/22/ | Telephone | [facility] | Avi Forde MD | Other | | 2014 | | GASTROENTEROLOGY | [address] [place] | | | | | [address] [facility] | [address] [place] | | | | | [address] [place], [place] | [address] | | | | | [address] | | | | | | [phone] | | | +--------+ + + + [...]
--- OUTSIDE RECORDS SUMMARY | ~2019-08-11 | XMS | Encounter Summary ---
Demographics + + + | Address | [address] | | | [place] [address] | + + + | Home Phone | | + + + | Preferred Language | Unknown | + + + | Marital Status | Single | + + + | Holiness Affiliation | 1077 | + + + | Race | Unknown | + + + | Ethnic Group | Unknown | + + + Author + + + | Author | [facility] | | | and [place] | + + + | Organization | [facility] | | [...] Team Providers + +------+ + | Care Mail List Librarian Name | Role | Phone | + [...] 2016 | | GASTROENTEROLOGY | [address], [place] | | | | | [address] [place] | [address] [place] | | | | | [address] [place], [place] | [address] | | | | | [address] | | | | | | [phone] | | | +--------+ + + + [...]
--- OUTSIDE RECORDS SUMMARY | ~2019-08-11 | XMS | Encounter Summary ---
Demographics + + + | Address | [address] | | | [place] [address] | + + + | Home Phone | | + + + | Preferred Language | Unknown | + + + | Marital Status | Single | + + + | Scientology Affiliation | 1077 | + + + [...] Team Providers + +------+ + | Care Surgeon'S Assistant Name | Role | Phone | + [...] diarrhea | [address] | [address], | | | | | IgG Gliadin | [place], [place] | [place] [address] | | | | | antibody | [address] [place] | [place], | | | | | positive | [place] | [place] [address] | | | | | Alcohol | [address] | Phone: | | | | | abuse | Phone: | [phone] | | | | | Procedures | [phone] | Fax: | | | | | [place] | Fax: | [phone] | | | | | COLONOSCOPY | [phone] | | | | | | FLX DX | | | | | | | W/COLLJ SPEC | | | | | | | WHEN PFRMD | | | | | | | AR | | | | | | | COLONOSCOPY | | | | | | | W/BIOPSY | | | | | | | SINGLE/MULTI | | | | | | | PLE AR | | | | | | | COLSC FLX | | | | | | | W/RMVL OF | | | | | | | TUMOR POLYP | | | | | | | LESION SNARE | | | | | | | TQ AR | | | | | | | [...] 2014 | | GASTROENTEROLOGY | [address], [place] | (procedure ) | | | | [address] [place] | [address] [place], [place] | | | | | [address] [place], [place] | [address] | | | | | [address] | | | | | | [phone] | | | +--------+ + + + [...]
--- OUTSIDE RECORDS SUMMARY | ~2019-08-11 | XMS | Encounter Summary ---
Demographics + + + | Address | [address] | | | [place] [address] | + + + | Home Phone [...] Team Providers + +------+ + | Care Production Material Handler Name | Role | Phone | + [...] + + | 09/22/ | Telephone | [facility] | Avi Forde MD | Other | | 2014 | | GASTROENTEROLOGY | [address] [place] | | | | | [address] [facility] | [address] [place] | | | | | [address] [place], [place] | [address] | | | | | [address] | | | | | | [phone] | | | +--------+ + + + [...]
--- OUTSIDE RECORDS SUMMARY | ~2019-08-11 | XMS | Clinical Summary ---
Demographics + + + | Address | [address] [place] [address] RD | | | [place] [address] | + + + | Home Phone | | + + + | Preferred Language | Unknown | + + + | Marital Status | Single | + + + | Pentecostal Affiliation | 1077 | + + + | Race | Unknown | + + + | Ethnic Group | Unknown | + + + Author + + + | Author | [employer] [facility] (Historical as of | | | 05-18-19) | + + + | Organization | [facility] (Historical as of | | | 05-18-19) [...] Team Providers + +------+ + | Care Commutator Presser Name | Role | Phone | + [...] to breakdown of skin ([facility]) | 01/13/2018 | + + + | Cellulitis and abscess of foot | 12/15/2016 | + + + | Osteomyelitis ([facility]) | 12/15/2016 | + + + | Essential hypertension | 03/04/2015 | + + + | Type 2 diabetes mellitus, with long-term current use of insulin | 03/04/2015 | | ([facility]) | | + + + Family History [...] +------+-------+ + | MEDICAID | [place] | [id number] | | | [address] | | | N | | | | [place], [place] | | | [place] | | | | [address] | | | 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
--- OUTSIDE RECORDS SUMMARY | ~2019-08-11 | XMS | Encounter Summary ---
Demographics + + + | Address | [address] | | | [place] [address] | + + + | Home Phone | | + + + | Preferred Language | Unknown | + + + | Marital Status | Single | + + + | Congregation Affiliation | 1077 | + + + | Race | Unknown | + + + | Ethnic Group | Unknown | + + + Author + + + | Author | [facility] | | | and [place] | + + + | Organization | [facility] | | | [...] Team Providers + +------+ + | Care Flow Trader Name | Role | Phone | + +------+ + | Estrella Light PA-C | PCP | | + +------+ + Encounter Details +--------+ + + + + | Date | Type | Department | Care Team | Description | +--------+ + + + + | 01/13/ | Hospital | [facility] | Conversion | Diagnosis unknown | | 2018 | Encounter | CONVERSION DEP [address] | Transaction, | | | | | [place] | Provider Unknown | | | | | [place] | | | | | | [address] | (Fax) | | | | | [phone] | | | +--------+ + + + [...]
--- OUTSIDE RECORDS SUMMARY | ~2019-08-11 | XMS | Encounter Summary ---
Demographics + + + | Address | [address] | | | [place] [address] | + + + | Home Phone [...] Team Providers + +------+ + | Care Svp Group Director Name | Role | Phone | [...] + + | 04/12/ | Telephone | [facility] | Avi Forde MD | Hosp No Show | | 2015 | | GASTROENTEROLOGY | [address] [place], [place] | (egds,colon) | | | | [address] [place] | [address] [place] | | | | | [address] [place], [place] | [address] | | | | | [address] | | | | | | [phone] | | | +--------+ + + + [...]
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
--- OUTSIDE RECORDS SUMMARY | ~2019-08-11 | XMS | Encounter Summary ---
Demographics + + + | Address | [address] | | | [place] [address] | + + + | Home Phone [...] Team Providers + +------+ + | Care Distributor Of Directories Name | Role | Phone | + [...] | | type | [address] | [place], | | | | | | [place], | [place] [address] | | | | | | [place] [address] | Phone: | | | | | | Phone: | [phone] | | | | | | [phone] | Fax: | | | | | | Fax: | [phone] | | | | | | [phone] | | +--------+ + + + + + Reason for Visit + + + | Reason | Comments | + + + | Hematuria | | + + + Encounter Details +--------+ + + + + | Date | Type | Department | Care Team | Description | +--------+ + + + + | 10/16/ | Emergency | [facility] | Keenan Estrada MD | Hematuria, | | 2019 | | MED CTR EMERGENCY | [address] | unspecified type | | | | CENTER [address] | [place] | (Primary Dx) | | | | [place] | [phone] | | | | | [address] | | | | | | [phone] | | | +--------+ + + + [...] + + +--------+ + + | Urology [facility] - | Outpatient | Routin | [...] + | [facility] | [address] | [place] | [phone] | | [facility] | | [address] | | | - LABORATORY | | [...] - 1.030 | [facility] | | | [place] | | | [facility] | | [...] [address] | [place] | [phone] | | [facility] | | [address] | | | - LABORATORY | | [...]
--- OUTSIDE RECORDS SUMMARY | ~2019-08-11 | XMS | Encounter Summary ---
Demographics + + + | Address | [address] | | | [place] [address] | + + + | Home Phone [...] Providers + +------+ + | Care Admissions Manager Rn Name | Role | Phone | + +------+ + | Estrella Light PA-C | PCP | | + +------+ + Encounter Details +--------+---------+ + + + | Date | Type | Department | Care Team | Description | +--------+---------+ + + + | 04/12/ | Surgery | [facility] | Avi Forde MD | EGD / COLONOSCOPY - | | 2015 | | MED CTR MP INTRA OP | [address], [place] | DM (insulin) | | | | [address] | [address] [place] | | | | | [place] | [id number] | | | | | [address] | | | | | | [phone] | | | +--------+---------+ + + + [...]
--- OUTSIDE RECORDS SUMMARY | ~2019-08-11 | XMS | Encounter Summary ---
Demographics + + + | Address | [address] | | | [place] [address] | + + + | Home Phone | | + + + | Preferred Language | Unknown | + + + | Marital Status | Single | + + + | Yarsani Affiliation | [id number] | + + + [...] Team Providers + +------+ + | Care Sales Mgr Name | Role | Phone | + +------+ + | Estrella Light PA-C | PCP | | + +------+ + Encounter Details +--------+ + + + + | Date | Type | Department | Care Team | Description | +--------+ + + + + | 12/14/ | Hospital | [facility] | [place], | Osteomyelitis of | | 2017 - | Encounter | [facility] | MD [address] | foot, left, acute | | | | CARE FLOOR [address] | [address] | ([facility]); Uncontrolled | | 12/20/ | | [address] | [place] [address] | type 2 diabetes | | 2017 | | [place], [place] | [phone] | mellitus with | | | | [address] | | hyperglycemia, | | | | [phone] | | unspecified long | | | | | | term insulin use | | | | | | status ([facility]); Renal | | | | | | [...] 1933 Date of Service: 12/20/161538 Status: Addendum Home Manager: Bunny Chaney MD (Physician) Related Notes: Original Note by Bunny Chaney MD (Physician) filed at 12/26/16 0644 [facility] Service: Hospitalist Physician Discharge Summary Patient ID: Kuldip Smith [id number] y.o. 1965 Admit date: 12/14/2016 Discharge [...] been approved, which should be given from [facility] ec until further approval from insurance. [...] up: Estrella Light PA-C [address] [place] [address] Rebeca Reza MD [address] [facility] [address] Schedule an appointment as soon as possible for a visit in 10 days Dictation and transportation planner or software, [employer], used which may contain error for similar [...] - AMPUTATION; Surgeon: Walter Fernandez DPM; Location: [facility]; Service: Podiatry; Laterality: Left; [...] Management by Jenny Vaughan RN at 12/20/16 6526 Author: Jenny Vaughan RN Service: (none) Author Type: Registered Nurse Filed: 12/20/16 0391 Date of Service: 12/20/161538 Status: Signed Home Manager: Jenny Vaughan RN (Registered Nurse) 1610 - Received call from [facility] stating they are now unable to accept pa tient due to a "freeze on admits". They are aware patient has been discharged and is en rou te to home. They are still unable to accept. Call placed to [facility] OPP rega rding need for services. They state pt will need to arrange wound care/dressing changes thr ough his PCP per insurance requirements. Voicemail left for Coby at [facility] to return call. Will need to call back in morning to schedule appointment as clinic is currently closed. onver ruben Transaction, Provider Unknown - 12/20/2016 3:39 PM PDT Case Management by Mirlande Prescott RN at 12/20/16 2563 Author: Mirlande Prescott RN Service: (none) Author Type: Registered Nurse Filed: 12/21/16 0808 Date of Service: 12/20/16 1539 Status: Signed Home Manager: Mirlande Prescott RN (Registered Nurse) 0800: Tc to pt's PCP, Coby Light, with [facility], to updat e about [facility] not being able to admit pt. Coby states she and Charlotte will work on getting pt the appropriate wound vac care he needs, they are going to try and get pt into O P wound therapy with [facility] or maybe to OP in [place]. Coby states she will als o call [facility] as to when they can admit pt under their services. Maribel onver ruben Transaction, Provider Unknown - 12/20/2016 1:03 PM PDT Progress Notes by Rachael Molina RN at 12/20/16 1303 Author: Rachael Molina RN Service: Wound/Ostomy Care Author Type: Registered Nurse Filed: 12/20/16 1311 Date of Service: 12/20/16 1303 Status: Signed Home Manager: Rachael Molina RN (Registered Nurse) Wound care in to switch patient out to portable wound vac unit. This is a sol vac on l oan from [facility]. Explained to patient when his insurance approves his home vac unit, that t his sol vac is to be returned via [employer]. Instructions given in detail, voiced candelaria frias. Photo taken of tracking number and faxed to Alicia [facility] rep. Instructions on how to [...] protection. Hospital vac dc'd in [facility] express: #[id number] Rachael Molina RN, ON 12/20/2016 1:10 PM onver ruben Transaction, Provider Unknown - 12/20/2016 11:34 AM PDT Case Management by Mirlande Prescott RN at 12/20/16 1134 Author: Mirlande Prescott RN Service: (none) Author Type: Registered Nurse Filed: 12/20/16 1459 Date of Service: 12/20/16 1134 Status: Addendum Home Manager: Mirlande Prescott RN (Registered Nurse) Related Notes: Original Note by Mirlande Prescott RN (Registered Nurse) filed at 12/20/16 114 9 Per rounding with pt, he will be d/c home today. Pt states his mother will be providing tra nsportation home. Wound vac has been approved by [facility]. [facility] has been set up, and [...] and agrees with plan. Tc to Coby [phone] and Charlotte [phone] with [facility]/mannie pickens nd left mssgs of pt's d/c Today. Faxed AVS to [facility] Maribel Iqra Mcgregor PT - 12/20/2016 10:07 AM PDTFormatting of this note might be different from th e original. Therapy Progress Note by Karina Zabala PT at 12/20/16 1007 Author: Karina Zabala PT Service: (none) Author Type: Physical Therapist Filed: 12/20/16 1037 Date of Service: 12/20/16 1007 Status: Signed Home Manager: Karina Zabala PT (Physical Therapist) 12/20/16 1007 [...] (none) Author Type: Physical Therapist Filed: 12/19/16 0784 Date of Service: 12/19/166 Status: Signed Home Manager: Natalia Marte PT (Physical Therapist) 12/19/16 1646 PT Last Visit PT Received On 12/19/16 Reason for Treatment Other (comment) (L foot osteomyelitis) Requires PT Follow Up Awaiting tx order Follow up PT Only? Yes (Assistive device assessment) Focus for Next Treatment Equipment Trial;Stair Training (bilateral axillary crutches and stair training) PT Eval/Reassessment Date 12/19/16 Assistance Required 1 person Director Of Corporate Sponsorships Needed No Home Environment Type of Home Home one story Home Exterior Layout 1-3 steps (2 JEISON) Home Interior Layout Lives on main level with bedroom/bathroom Bathroom Shower/Tub Tub/shower unit Bathroom Toilet Raised Bathroom Equipment Grab bars outside of shower/bath;Raised toilet seat Bathroom Accessibility Not accessible Home Equipment Cane single point;Crutches-axillary Prior Function Level of [place] Independent with ADLs;Independent with IADLs;Modified independent wi [...] Eval/Reassessment Date 12/19/16 Assistance Required 1 person Director Of Corporate Sponsorships Needed No Precautions LE Precaution(s) LLE Precautions/WB [...] Notes by Rebeca Reza MD at 12/19/16 5118 Author: Rebeca Reza MD Service: Infectious Disease Author Type: Physician Filed: 12/20/16 0639 Date of Service: 12/19/16 1100 Status: Signed Home Manager: Rebeca Reza MD (Physician) [facility] Service: Infectious Disease Progress Note [...] Dec 15 2016 9:30AM Referring Provider Line: [phone] ID: [id number] MRI foot left without contrast [[id number]] Impression 1. Recent amputation of the LEFT 4th toe. 2. No radiographic evidence of residual osteomyelitis in the remaining ossicles of the LEF T forefoot. 3. Moderately extensive vascular calcifications. X-ray foot left [[id number]] PROBLEM LIST Principal Problem: Osteomyelitis (HCC) Active [...] Date of Service: 12/19/16 1103 Status: Signed Home Manager: Dell Archer DO (Physician) PROGRESS NOTE 12/19/2016 [...] 1103 Date of Service: 12/19/16914 Status: Addendum Home Manager: Jenny Vaughan RN (Registered Nurse) Related Notes: Original Note by Jenny Vaughan RN (Registered Nurse) filed at 12/19/16 1 [phone] - [facility] She wi ll be following patient once [...] accept patient. Face to face order faxed ([phone]) [facility] RN [phone] Alicia with [facility] notified of wound vac placement. Auth form signed by hospitalist and faxed to Alicia. Lilly with [facility] Care notified of patient discharging on oral antibiotics. onver ruben Transaction, Provider Unknown - 12/18/2016 6:45 PM PDT Nurse Progress Note by Gerber Hay RN at 12/18/161844 Author: Gerber Hay RN Service: (none) Author Type: Registered Nurse Filed: 12/18/161847 Date of Service: 12/18/161844 Status: Signed Home Manager: Gerber Hay RN (Registered Nurse) Pt resting [...] 12/18/16933 Date of Service: 12/18/16928 Status: Addendum Home Manager: Dell Archer DO (Physician) Related Notes: Original [...] 12/18/16899 Date of Service: 12/18/16854 Status: Signed Home Manager: Walter Fernandez DPM (Doctor of Podiatric Medicine) [facility] Service: Podiatry Progress Note Hospital [...] home health care. Dr. David DPM in [place] take s care of this patient and [...] 12/18/16845 Date of Service: 12/18/16845 Status: Signed Home Manager: Destini Vargas RPH (Pharmacist) Day 5 Vanco [...] 1108 Date of Service: 12/18/16820 Status: Signed Home Manager: Rebeca Reza MD (Physician) [facility] Service: Infectious Disease Progress Note [...] Dec 15 2016 9:30AM Referring Provider Line: [phone] ID: [id number] MRI foot left without contrast [[id number]] Impression 1. Recent amputation of the LEFT 4th toe. 2. No radiographic evidence of residual osteomyelitis in the remaining ossicles of the LEF T forefoot. 3. Moderately extensive vascular calcifications. X-ray foot left [[id number]] PROBLEM LIST Principal Problem: Osteomyelitis (HCC) Active [...] Note by Jihan Jacinto RPH at 12/17/16 4876 Author: Jihan Jacinto RPH Service: Pharmacy Author Type: Pharmacist Filed: 12/17/162246 Date of Service: 12/17/162246 Status: Signed Home Manager: Jihan Jacinto RPH (Pharmacist) Clinical Pharmacy Note: [...] 12/17/161750 Date of Service: 12/17/161742 Status: Signed Home Manager: Gerber Hay RN (Registered Nurse) Wound vac [...] Notes by Rebeca Reza MD at 12/17/16 0660 Author: Rebeca Reza MD Service: Infectious Disease Author Type: Physician Filed: 12/17/16 1702 Date of Service: 12/17/16 1510 Status: Addendum Home Manager: Rebeca Reza MD (Physician) Related Notes: Original Note by Rebeca Reza MD (Physician) filed at 12/17/16 9202 [facility] Service: Infectious Disease Progress Note [...] Dec 15 2016 9:30AM Referring Provider Line: [phone] ID: 106 MRI foot left without contrast [[id number]] Impression 1. Recent amputation of the LEFT 4th toe. 2. No radiographic evidence of residual osteomyelitis in the remaining ossicles of the LEF T forefoot. 3. Moderately extensive vascular calcifications. X-ray foot left [[id number]] PROBLEM LIST Principal Problem: Osteomyelitis (HCC) Active [...] Doctor of Podiatric Medi cine Filed: 12/17/16 3858 Date of Service: 12/17/16 1406 Status: Signed Home Manager: Walter Fernandez DPM (Doctor of Podiatric Medicine) [facility] Service: Podiatry Progress Note Hospital [...] Note by Gerber Hay RN at 12/17/16 7506 Author: Gerber Hay RN Service: (none) Author Type: Registered Nurse Filed: 12/17/16 4512 Date of Service: 12/17/16 1144 Status: Signed Home Manager: Gerber Hya RN (Registered Nurse) Pt had large incontinent [...] Date of Service: 12/17/16 1056 Status: Signed Home Manager: Dell Archer DO (Physician) PROGRESS NOTE 12/17/2016 [...] 12/17/16834 Date of Service: 12/17/16834 Status: Signed Home Manager: Destini Vargas RPH (Pharmacist) Day 4 Vanco [...] 12/17/168 Date of Service: 12/17/16307 Status: Signed Home Manager: Jihan Jacinto RPH (Pharmacist) Clinical Pharmacy Note: [...] 12/16/161719 Date of Service: 12/16/161709 Status: Signed Home Manager: Walter Fernandez DPM (Doctor of Podiatric Medicine) [facility] Service: Podiatry Progress Note Hospital [...] Notes by Rebeca Reza MD at 12/16/16 0608 Author: Rebeca Reza MD Service: Infectious Disease Author Type: Physician Filed: 12/16/16 1606 Date of Service: 12/16/162 Status: Signed Home Manager: Rebeca Reza MD (Physician) [facility] Service: Infectious Disease Progress Note [...] Dec 15 2016 9:30AM Referring Provider Line: [phone] ID: 106 MRI foot left without contrast [[id number]] Impression 1. Recent amputation of the LEFT 4th toe. 2. No radiographic evidence of residual osteomyelitis in the remaining ossicles of the LEF T forefoot. 3. Moderately extensive vascular calcifications. X-ray foot left [[id number]] PROBLEM LIST Principal Problem: Osteomyelitis (HCC) Active [...] Management by Jenny Vaughan RN at 12/16/16 8001 Author: Jenny Vaughan RN Service: (none) Author Type: Registered Nurse Filed: 12/16/16 0885 Date of Service: 12/16/16 5280 Status: Signed Home Manager: Jenny Comfort, RN (Registered Nurse) 12/16/16 4445 Discharge Planning Evaluation Admitting Diagnosis osteomyelitis Readmission No Living Arrangements Parent Support Systems Parent;Family members Type of Residence Private residence House type House-1 story Steps to enter 2 Independent with ADL's Yes Independent with Mobility Yes Mental Status Oriented Prior functional status not employed, independent 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 Sascha garcia need home health services along with IV abx. Discussed with patient and he states und erstanding. Referral sent to [facility] for nursing services as patient lives in [place]. Options for home IV abx services provided to pt/family and they do not have a preference. Referral to [facility] will follow. Pt/family requested I notify Coby at the [facility] of pt status as she ar ranges services for them. Contacted Coby and provided current discharge plan. If there is a change in plan, Coby requests to be notified as she will continue to follow patient after discharge. She also states pt will be followed by their community health nurse (Charlotte ) who works alongside [facility]. Coby [facility] [phone] Assistance in transportation: Pt's family is able [...] Date of Service: 12/16/16 1012 Status: Signed Home Manager: Dell Archer DO (Physician) PROGRESS NOTE 12/16/2016 [...] Date of Service: 12/15/16 1248 Status: Signed Home Manager: Jenny Vaughan RN (Registered Nurse) Attempted to [...] 12/15/16405 Date of Service: 12/15/16405 Status: Signed Home Manager: Jihan Jacitno RPH (Pharmacist) Clinical Pharmacy Note: Renal Monitoring [...] 12/15/16404 Date of Service: 12/15/16404 Status: Signed Home Manager: Jihan Jacinto RPH (Pharmacist) Clinical Pharmacy Note: [...] | | Fingerstick | performed at [facility];88 | | LAB | | | | [address];[place] | | | | | | [address] | | | | + + + [...] | | | | performed at [facility];888 | | LAB | | | | [address];[place], [place] | | | | | | [address] | | | | + + + [...] | | | | performed at [facility];888 | K/uL | LAB | | | | [address];[place] | | | | | | [address] | | | | + + + + + + | RED CELL | 4.00 (L)Comment: Testing | 4.20 - 5.70 | EXTERNAL | | | COUNT | performed at [facility];888 | M/uL | LAB | | | | [address];[place] | | | | | | [address] | | | | + + + + + + | Hgb | 11.6 (L)Comment: Testing | 13.2 - 17.0 | EXTERNAL | | | | performed at [facility];888 | g/dL | LAB | | | | [address];[place] | | | | | | [address] | | | | + + + + + + | Hematocrit, | 33.9 (L)Comment: Testing | 39.0 - 50.0 % | EXTERNAL | | | POC | performed at [facility];[address] | | LAB | | | | [address];[place] | | | | | | [address] | | | | + + + + + + | MCV | 84.7Comment: Testing | 80.0 - 100.0 fl | EXTERNAL | | | | performed at [facility];[address] | | LAB | | | | [address];[place] | | | | | | [address] | | | | + + + + + + | MCH | 28.9Comment: Testing | 27.0 - 34.0 pg | EXTERNAL | | | | performed at [facility];[address] | | LAB | | | | [address];[place] | | | | | | [address] | | | | + + + + + + | MCHC | 34.1Comment: Testing | 32.0 - 35.5 | EXTERNAL | | | | performed at [facility];888 | g/dL | LAB | | | | [address];[place] | | | | | | [address] | | | | + + + + + + | RDW-CV | 42.0Comment: Testing | 37 - 53 fl | EXTERNAL | | | | performed at [facility];[address] | | LAB | | | | [address];[place] | | | | | | [address] | | | | + + + + + + | Platelet | 392Comment: Testing | 150 - 400 K/uL | EXTERNAL | | | Count | performed at [facility];888 | | LAB | | | Plasma | [address];[place] | | | | | | [address] | | | | + + + + + + | MPV | 7.0Comment: Testing | fl | EXTERNAL | | | | performed at [facility];[address] | | LAB | | | | [address];[place] | | | | | | [address] | | | | + + + + + + | Differentia | MANUALComment: Testing | | EXTERNAL | | | l Type | performed at [facility];[address] | | LAB | | | | [address];[place] | | | | | | [address] | | | | + + + + + + | Segmented | 69Comment: Testing | % | EXTERNAL | | | Neutrophils | performed at [facility];888 | | LAB | | | Manual | [address];[place] | | | | | | [address] | | | | + + + + + + | Lymphocytes | 21Comment: Testing | % | EXTERNAL | | | Manual | performed at [facility];[address] | | LAB | | | | [address];[place] | | | | | | [address] | | | | + + + + + + | Monocytes | 4Comment: Testing | % | EXTERNAL | | | Manual | performed at [facility];[address] | | LAB | | | | [address];[place] | | | | | | [address] | | | | + + + + + + | Eosinophils | 6Comment: Testing | % | EXTERNAL | | | Manual | performed at [facility];[address] | | LAB | | | | [address];[place] | | | | | | [address] | | | | + + + + + + | Absolute | 5.08Comment: Testing | 1.90 - 7.40 | EXTERNAL | | | Neutrophils | performed at [facility];888 | K/uL | LAB | | | | [address];[place] | | | | | | [address] | | | | + + + + + + | Absolute | 1.55Comment: Testing | 1.00 - 3.90 | EXTERNAL | | | Lymphocytes | performed at [facility];888 | K/uL | LAB | | | | [address];[place] | | | | | | [address] | | | | + + + + + + | Absolute | 0.29Comment: Testing | 0.00 - 0.80 | EXTERNAL | | | Monocytes | performed at [facility];888 | K/uL | LAB | | | | [address];[place] | | | | | | [address] | | | | + + + + + + | Absolute | 0.44Comment: Testing | 0.00 - 0.50 | EXTERNAL | | | Eosinophils | performed at [facility];888 | K/uL | LAB | | | | [address];[place] | | | | | | [address] | | | | + + + + + + | RBC | NORMALComment: Testing | | EXTERNAL | | | Morphology | performed at [facility];[address] | | LAB | | | | [address];[place] | | | | | | [address] | | | | + + + [...] | | | | performed at [facility];888 | | LAB | | | | [address];[place] | | | | | | [address] | | | | + + + [...] | | Fingerstick | performed at [facility];888 | | LAB | | | | [address];[place], [place] | | | | | | [address] | | | | + + + [...] | | Fingerstick | performed at [facility];888 | | LAB | | | | [address];[place] | | | | | | [address] | | | | + + + [...] | | Fingerstick | performed at [facility];888 | | LAB | | | | [address];[place] | | | | | | [address] | | | | + + + [...] | | Fingerstick | performed at [facility];888 | | LAB | | | | [address];[place] | | | | | | [address] | | | | + + + [...] | | Fingerstick | performed at [facility];888 | | LAB | | | | [address];[place], [place] | | | | | | [address] | | | | + + + [...] | | Fingerstick | performed at [facility];[address] | | LAB | | | | [address];[place] | | | | | | [address] | | | | + + + [...] | | Fingerstick | performed at [facility];[address] | | LAB | | | | [address];[place], [place] | | | | | | [address] [...] | | Fingerstick | performed at [facility];[address] | | LAB | | | | [address];[place] | | | | | | [address] | | | | + + + [...] | EXTERNAL LAB | | performed at [facility];[address] [place] [address];[place] [address] TOXIN A | | | NEGATIVE Testing performed at | | | [facility];[address] [facility];[place] [address] C DIFF INTERPRETATION | | | Negative for toxigenic C.difficile. Testing performed at | | | [facility];[address] [place] [address];[place] [address] | | + + + + +---------+ [...] | | Fingerstick | performed at [facility];[address] | | LAB | | | | [address];[place] | | | | | | [address] | | | | + + + [...] EXTERNAL | | | | performed at [facility], [address] | K/uL | LAB | | | | [address], | | | | | | [place] [address] | | | | + + + + + + | RED CELL | 3.92 (L)Comment: Testing | 4.20 - 5.70 | EXTERNAL | | | COUNT | performed at [facility], [address] | M/uL | LAB | | | | [address], | | | | | | [place] [address] | | | | + + + + + + | Hgb | 11.2 (L)Comment: Testing | 13.2 - 17.0 | EXTERNAL | | | | performed at [facility], [address] | g/dL | LAB | | | | [address], | | | | | | [place] [address] | | | | + + + + + + | Hematocrit, | 33.6 (L)Comment: Testing | 39.0 - 50.0 % | EXTERNAL | | | POC | performed at [facility], [address] | | LAB | | | | [address], | | | | | | [place] [address] | | | | + + + + + + | MCV | 85.9Comment: Testing | 80.0 - 100.0 fl | EXTERNAL | | | | performed at [facility], [address] | | LAB | | | | [address], | | | | | | [place] [address] | | | | + + + + + + | MCH | 28.7Comment: Testing | 27.0 - 34.0 pg | EXTERNAL | | | | performed at [facility], [address] | | LAB | | | | [address], | | | | | | [place] [address] | | | | + + + + + + | MCHC | 33.4Comment: Testing | 32.0 - 35.5 | EXTERNAL | | | | performed at [facility], [address] | g/dL | LAB | | | | [address], | | | | | | [place] [address] | | | | + + + + + + | RDW-CV | 41.1Comment: Testing | 37 - 53 fl | EXTERNAL | | | | performed at [facility], [address] | | LAB | | | | [address], | | | | | | [place] [address] | | | | + + + + + + | Platelet | 341Comment: Testing | 150 - 400 K/uL | EXTERNAL | | | Count | performed at [facility], [address] | | LAB | | | Plasma | [address], | | | | | | [place] [address] | | | | + + + + + + | MPV | 7.6Comment: Testing | fl | EXTERNAL | | | | performed at [facility], [address] | | LAB | | | | [address], | | | | | | [place] [address] | | | | + + + + + + | Differentia | AUTOMATEDComment: | | EXTERNAL | | | l Type | Testing performed at | | LAB | | | | [facility], [address] | | | | | | [place] | | | | | | [address] | | | | + + + + + + | % Segmented | 76.22Comment: Testing | % | EXTERNAL | | | | performed at [facility], [address] | | LAB | | | Neutrophils | [address], | | | | | | [place] [address] | | | | + + + + + + | % | 12.04Comment: Testing | % | EXTERNAL | | | Lymphocytes | performed at [facility], [address] | | LAB | | | | [address], | | | | | | [place] [address] | | | | + + + + + + | % Monocytes | 6.15Comment: Testing | % | EXTERNAL | | | | performed at [facility], [address] | | LAB | | | [address], | | | | | | [place] [address] | | | | + + + + + + | % | 4.73Comment: Testing | % | EXTERNAL | | | Eosinophils | performed at [facility], [address] | | LAB | | | | [address], | | | | | | [place] [address] | | | | + + + + + + | % Basophils | 0.86Comment: Testing | % | EXTERNAL | | | | performed at [facility], [address] | | LAB | | | | [address], | | | | | | [place] [address] | | | | + + + + + + | Absolute | 8.38 (H)Comment: Testing | 1.90 - 7.40 | EXTERNAL | | | Segmented | performed at [facility], [address] | [address] | LAB | | | Neutrophils | [address], | | | | | | [place] [address] | | | | + + + + + + | Absolute | 1.32Comment: Testing | 1.00 - 3.90 | EXTERNAL | | | Lymphocytes | performed at [facility], [address] | [address] | LAB | | | | [address], | | | | | | [place] [address] | | | | + + + + + + | Absolute | 0.68Comment: Testing | 0.00 - 0.80 | EXTERNAL | | | Monocytes | performed at [facility], [address] | K/uL | LAB | | | | [address], | | | | | | [place] [address] | | | | + + + + + + | Absolute | 0.52 (H)Comment: Testing | 0.00 - 0.50 | EXTERNAL | | | Eosinophils | performed at [facility], [address] | [address] | LAB | | | | [address], | | | | | | [place] [address] | | | | + + + + + + | Absolute | 0.10Comment: Testing | 0.00 - 0.10 | EXTERNAL | | | Basophils | performed at [facility], [address] | K/uL | LAB [...] | | | | [place] [address] | | | | + + + + + + | K | 3.8Comment: Testing | 3.5 - 4.9 | EXTERNAL | | | | performed at [facility], [address] | mmol/L | LAB | | | | [address], | | | | | | [place] [address] | | | | + + + + + + | Cl | 105Comment: Testing | 99 - 109 mmol/L | EXTERNAL | | | | performed at [facility], [address] | | LAB | | | | [address], | | | | | | [place] [address] | | | | + + + + + + | CO2 | 25Comment: Testing | 23 - 32 mmol/L | EXTERNAL | | | | performed at [facility], [address] | | LAB | | | | [address], | | | | | | [place] [address] | | | | + + + + + + | Anion Gap | 12Comment: Testing | 5 - 20 mmol/L | EXTERNAL | | | | performed at [facility], [address] | | LAB | | | | [address], | | | | | | [place] [address] | | | | + + + + + + | Glucose, | 236 (H)Comment: Testing | 65 - 99 mg/dL | EXTERNAL | | | Fasting | performed at [facility], [address] | | LAB | | | | [address], | | | | | | [place] [address] | | | | + + + + + + | BUN | 6 (L)Comment: Testing | 8 - 25 mg/dL | EXTERNAL | | | | performed at [facility], [address] | | LAB | | | | [address], | | | | | | [place] [address] | | | | + + + + + + | Creatinine | 0.9Comment: Testing | 0.70 - 1.30 | EXTERNAL | | | | performed at [facility], [address] | mg/dL | LAB | | | | [address], | | | | | | [place] [address] | | | | + + + + + + | BUN/Creatin | 7Comment: Testing | | EXTERNAL | | | ine Ratio | performed at [facility], [address] | | LAB | | | | [address], | | | | | | [place] [address] | | | | + + + + + + | Calcium | 8.3 (L)Comment: Testing | 8.5 - 10.5 | EXTERNAL | | | | performed at [facility], [address] | mg/dL | LAB | | | | [address], | | | | | | [place] [address] | | | | + + + [...] Man, | | | | | | [place] [address] | | | | + + + [...] | | Fingerstick | performed at [facility];88 | | LAB | | | | [address];[place] | | | | | | [address] | | | | + + + [...] | | | | performed at [facility];[address] | | | | | | [address];[place] | | | | | | [address] | | | | + + + [...] | | Fingerstick | performed at [facility];[address] | | LAB | | | | [address];[place], [place] | | | | | | [address] | | | | + + + [...] | | Fingerstick | performed at [facility];[address] | | LAB | | | | [address];[place] | | | | | | [address] | | | | + + + [...] | | Fingerstick | performed at [facility];[address] | | LAB | | | | [address];[place] | | | | | | [address] | | | | + + + [...] [place] | | | | | | [address] | | | | + + + + + + | RED CELL | 4.13 (L)Comment: Testing | 4.20 - 5.70 | EXTERNAL | | | COUNT | performed at [facility], [address] | [address]/u[address] | LAB | | | | [address], | | | | | | [place] [address] | | | | + + + + + + | Hgb | 11.7 (L)Comment: Testing | 13.2 - 17.0 | EXTERNAL | | | | performed at [facility], [address] | g/dL | LAB | | | | [address], | | | | | | [place] [address] | | | | + + + + + + | Hematocrit, | 34.8 (L)Comment: Testing | 39.0 - 50.0 % | EXTERNAL | | | POC | performed at [facility], [address] | | LAB | | | | [address], | | | | | | [place] [address] | | | | + + + + + + | MCV | 84.2Comment: Testing | 80.0 - 100.0 fl | EXTERNAL | | | | performed at [facility], [address] | | LAB | | | | [address], | | | | | | [place] [address] | | | | + + + + + + | MCH | 28.2Comment: Testing | 27.0 - 34.0 pg | EXTERNAL | | | | performed at [facility], [address] | | LAB | | | | [address], | | | | | | [place] [address] | | | | + + + + + + | MCHC | 33.5Comment: Testing | 32.0 - 35.5 | EXTERNAL | | | | performed at [facility], [address] | g/dL | LAB | | | | [address], | | | | | | [place] [address] | | | | + + + + + + | RDW-CV | 42.0Comment: Testing | 37 - 53 fl | EXTERNAL | | | | performed at [facility], [address] | | LAB | | | | [address], | | | | | | [place] [address] | | | | + + + + + + | Platelet | 329Comment: Testing | 150 - 400 K/uL | EXTERNAL | | | Count | performed at [facility], [address] | | LAB | | | Plasma | [address], | | | | | | [place] [address] | | | | + + + + + + | MPV | 7.9Comment: Testing | fl | EXTERNAL | | | | performed at [facility], [address] | | LAB | | | | [address], | | | | | | [place] [address] | | | | + + + + + + | Differentia | AUTOMATEDComment: | | EXTERNAL | | | l Type | Testing performed at | | LAB | | | | [facility], [address] | | | | | | [place] | | | | | | [address] | | | | + + + + + + | % Segmented | 83.29Comment: Testing | % | EXTERNAL | | | | performed at [facility], [address] | | LAB | | | Neutrophils | [address], | | | | | | [place] [address] | | | | + + + + + + | % | 8.71Comment: Testing | % | EXTERNAL | | | Lymphocytes | performed at [facility], [address] | | LAB | | | | [address], | | | | | | [place] [address] | | | | + + + + + + | % Monocytes | 5.08Comment: Testing | % | EXTERNAL | | | | performed at [facility], [address] | | LAB | | | | [address], | | | | | | [place] [address] | | | | + + + + + + | % | 2.32Comment: Testing | % | EXTERNAL | | | Eosinophils | performed at [facility], [address] | | LAB | | | | [address], | | | | | | [place] [address] | | | | + + + + + + | % Basophils | 0.60Comment: Testing | % | EXTERNAL | | | | performed at [facility], [address] | | LAB | | | | [address], | | | | | | [place] [address] | | | | + + + + + + | Absolute | 12.15 (H)Comment: | 1.90 - 7.40 | EXTERNAL | | | Segmented | Testing performed at | K/uL | LAB | | | Neutrophils | [facility], [address] | | | | | | [place] | | | | | | [address] | | | | + + + + + + | Absolute | 1.27Comment: Testing | 1.00 - 3.90 | EXTERNAL | | | Lymphocytes | performed at [facility], [address] | K/[address] | LAB | | | | [address], | | | | | | [place] [address] | | | | + + + + + + | Absolute | 0.74Comment: Testing | 0.00 - 0.80 | EXTERNAL | | | Monocytes | performed at [facility], [address] | K/uL | LAB | | | | [address], | | | | | | [place] [address] | | | | + + + + + + | Absolute | 0.34Comment: Testing | 0.00 - 0.50 | EXTERNAL | | | Eosinophils | performed at [facility], [address] | [address] | LAB | | | [address], | | | | | | [place] [address] | | | | + + + + + + | Absolute | 0.09Comment: Testing | 0.00 - 0.10 | EXTERNAL | | | Basophils | performed at [facility], [address] | [address] | LAB | | | | [address], | | | | | | [place] [address] | | | | + + + [...] | | | | [place] [address] | | | | + + + + + + | K | 3.8Comment: Testing | 3.5 - 4.9 | EXTERNAL | | | | performed at [facility], [address] | mmol/L | LAB | | | | [address], | | | | | | [place] [address] | | | | + + + + + + | Cl | 104Comment: Testing | 99 - 109 mmol/L | EXTERNAL | | | | performed at [facility], [address] | | LAB | | | | [address], | | | | | | [place] [address] | | | | + + + + + + | CO2 | 27Comment: Testing | 23 - 32 mmol/L | EXTERNAL | | | | performed at [facility], [address] | | LAB | | | | [address], | | | | | | [place] [address] | | | | + + + + + + | Anion Gap | 11Comment: Testing | 5 - 20 mmol/L | EXTERNAL | | | | performed at [facility], [address] | | LAB | | | | [address], | | | | | | [place] [address] | | | | + + + + + + | Glucose, | 196 (H)Comment: Testing | 65 - 99 mg/dL | EXTERNAL | | | Fasting | performed at [facility], [address] | | LAB | | | | [address], | | | | | | [place] [address] | | | | + + + + + + | BUN | 5 (L)Comment: Testing | 8 - 25 mg/dL | EXTERNAL | | | | performed at [facility], [address] | | LAB | | | | [address], | | | | | | [place] [address] | | | | + + + + + + | Creatinine | 0.9Comment: Testing | 0.70 - 1.30 | EXTERNAL | | | | performed at [facility], [address] | mg/dL | LAB | | | | [address], | | | | | | [place] [address] | | | | + + + + + + | BUN/Creatin | 6Comment: Testing | | EXTERNAL | | | ine Ratio | performed at [facility], [address] | | LAB | | | | [address], | | | | | | [place] [address] | | | | + + + + + + | Calcium | 8.4 (L)Comment: Testing | 8.5 - 10.5 | EXTERNAL | | | | performed at [facility], [address] | mg/dL | LAB | | | | [address], | | | | | | [place] [address] | | | | + + + [...] | | | | | | at [facility], [address] | | | | | | [address], | | | | | | [place] [address] | | | | + + + [...] | | Fingerstick | performed at [facility];[address] | | LAB | | | | [address];[place] | | | | | | [address] | | | | + + + [...] | | Fingerstick | performed at [facility];8 | | LAB | | | | [address];[place] | | | | | | [address] | | | | + + + [...] | | | | performed at [facility] | | | | | | [facility];[place], [place] | | | | | | [address] | | | | + + + [...] | | Fingerstick | performed at [facility];[address] | | LAB | | | | [address];[place] | | | | | | [address] | | | | + + + [...] | | Fingerstick | performed at [facility];[address] | | LAB | | | | [address];[place], [place] | | | | | | [address] | | | | + + + [...] | | | | [facility], [address] [facility] | | | | | | [place] | | | | | | [address] | | | | + + + + + + | RED CELL | 4.31Comment: Testing | 4.20 - 5.70 | EXTERNAL | | | COUNT | performed at [facility], [address] | M/uL | LAB | | | | [address], | | | | | | [place] [address] | | | | + + + + + + | Hgb | 12.3 (L)Comment: Testing | 13.2 - 17.0 | EXTERNAL | | | | performed at [facility], [address] | g/dL | LAB | [...] | | | | [place] [address] | | | | + + + + + + | MCV | 84.5Comment: Testing | 80.0 - 100.0 fl | EXTERNAL | | | | performed at [facility], [address] | | LAB | | | [address], | | | | | | [place] [address] | | | | + + + + + + | MCH | 28.5Comment: Testing | 27.0 - 34.0 pg | EXTERNAL | | | | performed at [facility], [address] | | LAB | | | | [address], | | | | | | [place] [address] | | | | + + + + + + | MCHC | 33.8Comment: Testing | 32.0 - 35.5 | EXTERNAL | | | | performed at [facility], [address] | g/dL | LAB | | | | [address], | | | | | | [place] [address] | | | | + + + + + + | RDW-CV | 42.9Comment: Testing | 37 - 53 fl | EXTERNAL | | | | performed at [facility], [address] | | LAB | | | | [address], | | | | | | [place] [address] | | | | + + + + + + | Platelet | 307Comment: Testing | 150 - 400 K/uL | EXTERNAL | | | Count | performed at [facility], [address] | | LAB | | | Plasma | [address], | | | | | | [place] [address] | | | | + + + + + + | MPV | 8.0Comment: Testing | fl | EXTERNAL | | | | performed at [facility], [address] | | LAB | | | | [address], | | | | | | [place] [address] | | | | + + + + + + | Differentia | AUTOMATEDComment: | | EXTERNAL | | | l Type | Testing performed at | | LAB | | | | [facility], [address] | | | | | | [place] | | | | | | [address] | | | | + + + + + + | % Segmented | 85.00Comment: Testing | % | EXTERNAL | | | | performed at [facility], [address] | | LAB | | | Neutrophils | [address], | | | | | | [place] [address] | | | | + + + + + + | % | 7.15Comment: Testing | % | EXTERNAL | | | Lymphocytes | performed at [facility], [address] | | LAB | | | | [address], | | | | | | [place] [address] | | | | + + + + + + | % Monocytes | 5.39Comment: Testing | % | EXTERNAL | | | | performed at [facility], [address] | | LAB | | | [address], | | | | | | [place] [address] | | | | + + + + + + | % | 1.86Comment: Testing | % | EXTERNAL | | | Eosinophils | performed at [facility], [address] | | LAB | | | [address], | | | | | | [place] [address] | | | | + + + + + + | % Basophils | 0.60Comment: Testing | % | EXTERNAL | | | | performed at [facility], [address] | | LAB | | | | [address], | | | | | | [place] [address] | | | | + + + + + + | Absolute | 13.51 (H)Comment: | 1.90 - 7.40 | EXTERNAL | | | Segmented | Testing performed at | K/uL | LAB | | | Neutrophils | [facility], [address] | | | | | | [place] | | | | | | [address] | | | | + + + + + + | Absolute | 1.14Comment: Testing | 1.00 - 3.90 | EXTERNAL | | | Lymphocytes | performed at [facility], [address] | K/uL | LAB | | | | [address], | | | | | | [place] [address] | | | | + + + + + + | Absolute | 0.86 (H)Comment: Testing | 0.00 - 0.80 | EXTERNAL | | | Monocytes | performed at [facility], [address] | K/uL | LAB | | | | [address], | | | | | | [place] [address] | | | | + + + + + + | Absolute | 0.30Comment: Testing | 0.00 - 0.50 | EXTERNAL | | | Eosinophils | performed at [facility], [address] | K/uL | LAB | | | | [address], | | | | | | [place] [address] | | | | + + + + + + | Absolute | 0.10Comment: Testing | 0.00 - 0.10 | EXTERNAL | | | Basophils | performed at [facility], [address] | K/uL | LAB | | | | [address], | | | | | | [place] [address] | | | | + + + [...] EXTERNAL | | | | performed at [facility], [address] | mmol/L | LAB | | | | [address], | | | | | | [place] [address] | | | | + + + + + + | K | 4.0Comment: Testing | 3.5 - 4.9 | EXTERNAL | | | | performed at [facility], [address] | mmol/L | LAB | | | | [address], | | | | | | [place] [address] | | | | + + + + + + | Cl | 103Comment: Testing | 99 - 109 mmol/L | EXTERNAL | | | | performed at [facility], [address] | | LAB | | | | [address], | | | | | | [place] [address] | | | | + + + + + + | CO2 | 24Comment: Testing | 23 - 32 mmol/L | EXTERNAL | | | | performed at [facility], [address] | | LAB | | | | [address], | | | | | | [place] [address] | | | | + + + + + + | Anion Gap | 14Comment: Testing | 5 - 20 mmol/L | EXTERNAL | | | | performed at [facility], [address] | | LAB | | | | [address], | | | | | | [place] [address] | | | | + + + + + + | Glucose, | 207 (H)Comment: Testing | 65 - 99 mg/dL | EXTERNAL | | | Fasting | performed at [facility], [address] | | LAB | | | | [address], | | | | | | [place] [address] | | | | + + + + + + | BUN | 7 (L)Comment: Testing | 8 - 25 mg/dL | EXTERNAL | | | | performed at [facility], [address] | | LAB | | | | [address], | | | | | | [place] [address] | | | | + + + + + + | Creatinine | 0.9Comment: Testing | 0.70 - 1.30 | EXTERNAL | | | | performed at [facility], [address] | mg/dL | LAB | | | | [address], | | | | | | [place] [address] | | | | + + + + + + | BUN/Creatin | 8Comment: Testing | | EXTERNAL | | | ine Ratio | performed at [facility], [address] | | LAB | | | | [facility], | | | | | | [place] [address] | | | | + + + + + + | Calcium | 8.2 (L)Comment: Testing | 8.5 - 10.5 | EXTERNAL | | | | performed at [facility], [address] | mg/dL | LAB | | | | [address], | | | | | | [place] [address] | | | | + + + [...] W | | | | | | [address], | | | | | | [place] [...] | | Fingerstick | performed at [facility];[address] | | LAB | | | | [address];[place], [place] | | | | | | [address] | | | | + + + [...] with a red-brown discoloration of the bone. Customer Experience Consultant | | | sections are submitted in cassette B1 and placed into decal prior to | | | processing. [facility] MICROSCOPIC EXAMINATION: A-B. Histologic | | | sections of all submitted blocks are examined by light microscopy. | | | These findings, together with the gross examination, support the | | | pathologic diagnosis. PERFORMING LABORATORY: Professional | | | interpretation and technical preparation was performed by [facility] | | | [facility], [address], | | | [place] [address] (Tire Specialist: Rafat Lorenzo M.D.; [facility]#: | | | [id number]). Diagnostician: Isi Gore MD Pathologist | | [...] | | Fingerstick | performed at [facility];[address] | | LAB | | | | [address];[place] | | | | | | [address] | | | | + + + [...] | | Fingerstick | performed at [facility];[address] | | LAB | | | | [address];[place], [place] | | | | | | [address] | | | | + + + [...] | | Fingerstick | performed at [facility];[address] | | LAB | | | | [address];[place] | | | | | | [address] | | | | + + + [...] | | | | performed at [facility];[address] | | LAB | | | | [address];[place] | | | | | | [address] | | | | + + + + + + | PCO2 ART | 32 (L)Comment: Testing | 35 - 45 mmHg | EXTERNAL | | | | performed at [facility];[address] | | LAB | | | | [address];[place] | | | | | | [address] | | | | + + + + + + | PO2 ART | 81Comment: Testing | 80 - 105 mmHg | EXTERNAL | | | | performed at [facility];[address] | | LAB | | | | [address];[place] | | | | | | [address] | | | | + + + + + + | Lactate, | <0.30 (L)Comment: | 0.36 - 1.25 | EXTERNAL | | | Arterial | Testing performed at | mmol/L | LAB | | | | [address] | | [address];[place] [address] | | | | + + + + + + | HCO3 ART | 19 (L)Comment: Testing | 22 - 26 mmol/L | EXTERNAL | | | | performed at [facility];[address] | | LAB | | | | [address];[place] | | | | | | [address] | | | | + + + + + + | POC | 20 (L)Comment: Testing | 23 - 27 mEq/L | EXTERNAL | | | APPEARANCE | performed at [facility];[address] | | LAB | | | UA | [address];[place] | | | | | | [address] | | | | + + + + + + | Base | 6 (H)Comment: Testing | 0.0 - 2.0 | EXTERNAL | | | deficit | performed at [facility];[address] | mmol/L | LAB | | | | [address];[place] | | | | | | [address] | | | | + + + + + + | O2 SAT ART | 96Comment: Testing | 95 - 98 % | EXTERNAL | | | | performed at [facility];[address] | | LAB | | | | [address];[place] | | | | | | [address] | | | | + + + + + + | FiO2, POC | 21Comment: Testing | % | EXTERNAL | | | | performed at [facility];[address] | | LAB | | | | [address];[place] | | | | | | [address] | | | | + + + [...] | | | | performed at [facility];[address] | mmol/L | LAB | | | | [address];[place], [place] | | | | | | [address] | | | | + + + [...] | | Fingerstick | performed at [facility];8 | | LAB | | | | [address];[place], [place] | | | | | | [address] | | | | + + + [...] EXTERNAL | | | | performed at [facility], [address] | | LAB | | | | [address], | | | | | | [place] [address] | | | | + + + + + + | Clarity | CLEARComment: Testing | | EXTERNAL | | | | performed at [facility], [address] | | LAB | | | | [address], | | | | | | [place] [address] | | | | + + + + + + | Specific | 1.022Comment: Testing | 1.002 - 1.030 | EXTERNAL | | | [place] | performed at [facility], [address] | | LAB | | | | [address], | | | | | | [place] [address] | | | | + + + + + + | Leukocyte | NEGATIVEComment: | | EXTERNAL | | | Esterase, | Testing performed at | | LAB | | | Urine | [facility], [address] | | | | | | [place] | | | | | | [address] | | | | + + + [...] | | | | [place] [address] | | | | + + + + + + | Protein, | NEGATIVEComment: Testing | mg/dL | EXTERNAL | | | Urine | performed at [facility], [address] | | LAB | | | | [address], | | | | | | [place] [address] | | | | + + + + + + | pH, Urine | 6.0Comment: Testing | 5.0 - 8.0 | EXTERNAL | | | | performed at [facility], [address] | | LAB | | | | [address], | | | | | | [place] [address] | | | | + + + + + + | Blood, | NEGATIVEComment: Testing | | EXTERNAL | | | Urine | performed at [facility], [address] | | LAB | | | | [address], | | | | | | [place] [address] | | | | + + + + + + | Ketones | NEGATIVEComment: Testing | mg/dL | EXTERNAL | | | | performed at [facility], [address] | | LAB | | | | [address], | | | | | | [place] [address] | | | | + + + + + + | Bilirubin, | NEGATIVEComment: Testing | | EXTERNAL | | | Urine | performed at [facility], [address] | | LAB | | | | [address], | | | | | | [place] [address] | | | | + + + + + + | Glucose, | >500 (A)Comment: Testing | mg/dL | EXTERNAL | | | Urine | performed at [facility], [address] | | LAB | | | | [address], | | | | | | [place] [address] | | | | + + + [...] | | LAB | | | | [facility] | | [address];[place] [address] | | | | + + + + + + | PCO2 ART | 56 (H)Comment: Testing | 35 - 45 mmHg | EXTERNAL | | | | performed at [facility] | | LAB | | | | [address];[place] | | | | | | [address] | | | | + + + + + + | PO2 ART | 74 (L)Comment: Testing | 80 - 105 mmHg | EXTERNAL | | | | performed at [facility];[address] | | LAB | | | | [address];[place] | | | | | | [address] | | | | + + + + + + | Lactate, | 7.11 (H)Comment: Testing | 0.36 - 1.25 | EXTERNAL | | | Arterial | performed at [facility];[address] | mmol/L | LAB | | | | [address];[place] | | | | | | [address] | | | | + + + + + + | HCO3 ART | 9 (L)Comment: Testing | 22 - 26 mmol/L | EXTERNAL | | | | performed at [facility];[address] | | LAB | | | | [address];[place] | | | | | | [address] | | | | + + + + + + | POC | 11 (L)Comment: Testing | 23 - 27 mEq/L | EXTERNAL | | | APPEARANCE | performed at [facility];[address] | | LAB | | | UA | [address];[place] | | | | | | [address] | | | | + + + + + + | Base | 25 (H)Comment: Testing | 0.0 - 2.0 | EXTERNAL | | | deficit | performed at [facility];[address] | mmol/L | LAB | | | | [address];[place] | | | | | | [address] | | | | + + + + + + | O2 SAT ART | 77 (L)Comment: Testing | 95 - 98 % | EXTERNAL | | | | performed at [facility];[address] | | LAB | | | | [address];[place] | | | | | | [address] | | | | + + + + + + | FiO2, POC | 100Comment: Testing | % | EXTERNAL | | | | performed at [facility];[address] | | LAB | | | | [address];[place] | | | | | | [address] | | | | + + + [...] [place] | | | | | | [address] | | | | + + + + + + | RED CELL | 4.04 (L)Comment: Testing | 4.20 - 5.70 | EXTERNAL | | | COUNT | performed at [facility], [address] | M/uL | LAB | | | | [address], | | | | | | [place] [address] | | | | + + + + + + | Hgb | 11.4 (L)Comment: Testing | 13.2 - 17.0 | EXTERNAL | | | | performed at [facility], [address] | g/dL | LAB | | | | [address], | | | | | | [place] [address] | | | | + + + + + + | Hematocrit, | 35.1 (L)Comment: Testing | 39.0 - 50.0 % | EXTERNAL | | | POC | performed at [facility], [address] | | LAB | | | | [address], | | | | | | [place] [address] | | | | + + + + + + | MCV | 86.7Comment: Testing | 80.0 - 100.0 fl | EXTERNAL | | | | performed at [facility], [address] | | LAB | | | | [address], | | | | | | [place] [address] | | | | + + + + + + | MCH | 28.2Comment: Testing | 27.0 - 34.0 pg | EXTERNAL | | | | performed at [facility], [address] | | LAB | | | | [address], | | | | | | [place] [address] | | | | + + + + + + | MCHC | 32.5Comment: Testing | 32.0 - 35.5 | EXTERNAL | | | | performed at [facility], [address] | g/dL | LAB | | | | [address], | | | | | | [place] [address] | | | | + + + + + + | RDW-CV | 42.0Comment: Testing | 37 - 53 fl | EXTERNAL | | | | performed at [facility], [address] | | LAB | | | | [address], | | | | | | [place] [address] | | | | + + + + + + | Platelet | 262Comment: Testing | 150 - 400 K/uL | EXTERNAL | | | Count | performed at [facility], [address] | | LAB | | | Plasma | [address], | | | | | | [place] [address] | | | | + + + + + + | MPV | 8.4Comment: Testing | fl | EXTERNAL | | | | performed at [facility], [address] | | LAB | | | | [address], | | | | | | [place] [address] | | | | + + + + + + | Differentia | AUTOMATEDComment: | | EXTERNAL | | | l Type | Testing performed at | | LAB | | | | [facility], [address] | | | | | | [place] | | | | | | [address] | | | | + + + + + + | % Segmented | 82.60Comment: Testing | % | EXTERNAL | | | | performed at [facility], [address] | | LAB | | | Neutrophils | [address], | | | | | | [place] [address] | | | | + + + + + + | % | 7.47Comment: Testing | % | EXTERNAL | | | Lymphocytes | performed at [facility], [address] | | LAB | | | | [address], | | | | | | [place] [address] | | | | + + + + + + | % Monocytes | 6.29Comment: Testing | % | EXTERNAL | | | | performed at [facility], [address] | | LAB | | | | [address], | | | | | | [place] [address] | | | | + + + + + + | % | 3.29Comment: Testing | % | EXTERNAL | | | Eosinophils | performed at [facility], [address] | | LAB | | | | [address], | | | | | | [place] [address] | | | | + + + + + + | % Basophils | 0.35Comment: Testing | % | EXTERNAL | | | | performed at [facility], [address] | | LAB | | | | [address], | | | | | | [place] [address] | | | | + + + + + + | Absolute | 13.94 (H)Comment: | 1.90 - 7.40 | EXTERNAL | | | Segmented | Testing performed at | K/uL | LAB | | | Neutrophils | [facility], [address] | | | | | | [place] | | | | | | [address] | | | | + + + + + + | Absolute | 1.26Comment: Testing | 1.00 - 3.90 | EXTERNAL | | | Lymphocytes | performed at [facility], [address] | K/uL | LAB | | | | [address], | | | | | | [place] [address] | | | | + + + + + + | Absolute | 1.06 (H)Comment: Testing | 0.00 - 0.80 | EXTERNAL | | | Monocytes | performed at [facility], [address] | K/uL | LAB | | | | [address], | | | | | | [place] [address] | | | | + + + + + + | Absolute | 0.56 (H)Comment: Testing | 0.00 - 0.50 | EXTERNAL | | | Eosinophils | performed at [facility], [address] | K/uL | LAB | | | | [address], | | | | | | [place] [address] | | | | + + + + + + | Absolute | 0.06Comment: Testing | 0.00 - 0.10 | EXTERNAL | | | Basophils | performed at [facility], [address] | K/uL | LAB | | | | [address], | | | | | | [place] [address] | | | | + + + [...] EXTERNAL | | | | performed at [facility], [address] | | LAB | | | | [address], | | | | | | [place] [address] | | | | + + + [...] EXTERNAL | | | | performed at [facility], [address] | | LAB | | | | [address], | | | | | | [place] [address] | | | | + + + [...] | | | | | performed at [facility], [address] | | | | | | [address] [facility], | | | | | | [place] [address] | | | | + + + [...] | | | | | performed at [facility], [address] | | | | | | [facility], | | | | | | [place] [address] | | | | + + + [...] | | | | [place] [address] | | | | + + + + + + | K | 4.6Comment: Testing | 3.5 - 4.9 | EXTERNAL | | | | performed at [facility], [address] | mmol/L | LAB | | | | [address], | | | | | | [place] [address] | | | | + + + + + + | Cl | 103Comment: Testing | 99 - 109 mmol/L | EXTERNAL | | | | performed at [facility], [address] | | LAB | | | | [address], | | | | | | [place] [address] | | | | + + + + + + | CO2 | 22 (L)Comment: Testing | 23 - 32 mmol/L | EXTERNAL | | | | performed at [facility], [address] | | LAB | | | | [address], | | | | | | [place] [address] | | | | + + + + + + | Anion Gap | 14Comment: Testing | 5 - 20 mmol/L | EXTERNAL | | | | performed at [facility], [address] | | LAB | | | | [address], | | | | | | [place] [address] | | | | + + + + + + | Glucose, | 392 (H)Comment: Testing | 65 - 99 mg/dL | EXTERNAL | | | Fasting | performed at [facility], [address] | | LAB | | | | [address], | | | | | | [place] [address] | | | | + + + + + + | BUN | 12Comment: Testing | 8 - 25 mg/dL | EXTERNAL | | | | performed at [facility], [address] | | LAB | | | | [address], | | | | | | [place] [address] | | | | + + + + + + | Creatinine | 1.0Comment: Testing | 0.70 - 1.30 | EXTERNAL | | | | performed at [facility], [address] | mg/dL | LAB | | | | [address], | | | | | | [place] [address] | | | | + + + + + + | BUN/Creatin | 12Comment: Testing | | EXTERNAL | | | ine Ratio | performed at [facility], [address] | | LAB | | | | [address], | | | | | | [place] [address] | | | | + + + + + + | Calcium | 7.6 (L)Comment: Testing | 8.5 - 10.5 | EXTERNAL | | | | performed at [facility], [address] | mg/dL | LAB | | | | [address], | | | | | | [place] [address] | | | | + + + + + + | Protein, | 6.4Comment: Testing | 6.3 - 8.2 g/dL | EXTERNAL | | | Total | performed at [facility], [address] | | LAB | | | | [place], | | | | | | [place] [address] | | | | + + + + + + | Albumin | 2.2 (L)Comment: Testing | 3.6 - 5.0 g/dL | EXTERNAL | | | | performed at [facility], [address] | | LAB | | | | [place], | | | | | | [place] [address] | | | | + + + + + + | Globulin | 4.2Comment: Testing | 1.3 - 4.9 g/dL | EXTERNAL | | | | performed at [facility], [address] | | LAB | | | | [place], | | | | | | [place] [address] | | | | + + + + + + | A/G Ratio | 0.5 (L)Comment: Testing | 1.0 - 2.4 | EXTERNAL | | | | performed at [facility], [address] | | LAB | | | | [facility] [address], | | | | | | [place] [address] | | | | + + + + + + | Bilirubin | 0.6Comment: Testing | 0.1 - 1.5 mg/dL | EXTERNAL | | | Total | performed at [facility], [address] | | LAB | | | | [address], | | | | | | [place] [address] | | | | + + + + + + | ALP, | 182 (H)Comment: Testing | 35 - 115 U/L | EXTERNAL | | | External | performed at [facility], [address] | | LAB | | | | [address], | | | | | | [place] [address] | | | | + + + + + + | AST | 9 (L)Comment: Testing | 10 - 45 U/L | EXTERNAL | | | | performed at [facility], [address] | | LAB | | | | [address], | | | | | | [place] [address] | | | | + + + + + + | ALT | 16Comment: Testing | 10 - 65 U/L | EXTERNAL | | | | performed at [facility], [address] | | LAB | | | | [address], | | | | | | [place] [address] | | | | + + + [...] | | | | | | at [facility], [address] | | | | | | [address], | | | | | | [place] [address] | | | | + + + [...] | | Fingerstick | performed at [facility];[address] | | LAB | | | | [address];[place], [place] | | | | | | [address] | | | | + + + [...] EXTERNAL LAB | | Testing performed at [facility];[address] [place] [address];[place] [address] MRSA PCR | | | POSITIVE for MRSA by PCRAbnormal | | | Testing performed at [address];[place] [address] | | + + + + +---------+ [...] | | Fingerstick | performed at [facility];8 | | LAB | | | | [address];[place] | | | | | | [address] | | | | + + + [...] | | | | performed at [facility];[address] | mmol/L | LAB | | | | [address];[place] | | | | | | [address] | | | | + + + + + + | K | 4.0Comment: Testing | 3.5 - 4.9 | EXTERNAL | | | | performed at [facility];[address] | mmol/L | LAB | | | | [address];[place] | | | | | | [address] | | | | + + + + + + | Cl | 104Comment: Testing | 99 - 109 mmol/L | EXTERNAL | | | | performed at [facility];[address] | | LAB | | | | [address];[place] | | | | | | [address] | | | | + + + + + + | CO2 | 21 (L)Comment: Testing | 23 - 32 mmol/L | EXTERNAL | | | | performed at [facility];[address] | | LAB | | | | [address];[place] | | | | | | [address] | | | | + + + + + + | Anion Gap | 13Comment: Testing | 5 - 20 mmol/L | EXTERNAL | | | | performed at [facility];[address] | | LAB | | | | [address];[place] | | | | | | [address] | | | | + + + + + + | Glucose, | 254 (H)Comment: Testing | 65 - 99 mg/dL | EXTERNAL | | | Fasting | performed at [facility];[address] | | LAB | | | | [address];[place] | | | | | | [address] | | | | + + + + + + | BUN | 12Comment: Testing | 8 - 25 mg/dL | EXTERNAL | | | | performed at [facility];[address] | | LAB | | | | [address];[place] | | | | | | [address] | | | | + + + + + + | Creatinine | 0.95Comment: Testing | 0.70 - 1.30 | EXTERNAL | | | | performed at [facility];[address] | mg/dL | LAB | | | | [address];[place] | | | | | | [address] | | | | + + + + + + | BUN/Creatin | 13Comment: Testing | | EXTERNAL | | | ine Ratio | performed at [facility];[address] | | LAB | | | | [address];[place] | | | | | | [address] | | | | + + + + + + | Calcium | 6.9 (L)Comment: Testing | 8.5 - 10.5 | EXTERNAL | | | | performed at [facility];[address] | mg/dL | LAB | | | | [address];[place] | | | | | | [address] | | | | + + + + + + | Protein, | 6.3Comment: Testing | 6.3 - 8.2 g/dL | EXTERNAL | | | Total | performed at [facility];[address] | | LAB | | | | [address];[place] | | | | | | [address] | | | | + + + + + + | Albumin | 2.1 (L)Comment: Testing | 3.6 - 5.0 g/dL | EXTERNAL | | | | performed at [facility];[address] | | LAB | | | | [address];[place] | | | | | | [address] | | | | + + + + + + | Globulin | 4.2Comment: Testing | 1.3 - 4.9 g/dL | EXTERNAL | | | | performed at [facility];[address] | | LAB | | | | [address];[place] | | | | | | [address] | | | | + + + + + + | A/G Ratio | 0.5 (L)Comment: Testing | 1.0 - 2.4 | EXTERNAL | | | | performed at [facility];[address] | | LAB | | | | [address];[place] | | | | | | [address] | | | | + + + + + + | Bilirubin | 0.4Comment: Testing | 0.1 - 1.5 mg/dL | EXTERNAL | | | Total | performed at [facility];[address] | | LAB | | | | [address];[place] | | | | | | [address] | | | | + + + + + + | ALP, | 181 (H)Comment: Testing | 35 - 115 U/L | EXTERNAL | | | External | performed at [facility];[address] | | LAB | | | | [address];[place] | | | | | | [address] | | | | + + + + + + | AST | 10Comment: Testing | 10 - 45 U/L | EXTERNAL | | | | performed at [facility];[address] | | LAB | | | | [address];[place] | | | | | | [address] | | | | + + + + + + | ALT | 14Comment: Testing | 10 - 65 U/L | EXTERNAL | | | | performed at [facility];[address] | | LAB | | | | [address];[place] | | | | | | [address] | | | | + + + [...] | | | | | | at [facility];[address];[place] [address] | | | | + + + [...] 9:30AM Referring Provider Line: | | | [phone] ID: [id number] | | + + + [...] | | 2016 9:30AM Referring Provider Line: [phone] ID: [id number] | + + POC Glucose [...] | | Fingerstick | performed at [facility];[address] | | LAB | | | | [address];[place], [place] | | | | | | [address] | | | | + + + [...] | | | | performed at [facility];[address] | mmol/L | LAB | | | | [address];[place], [place] | | | | | | [address] | | | | + + + [...] | | | Blood | performed at [facility];[address] | | LAB | | | | [address];[place], [place] | | | | | | [address] | | | | + + + [...] | | | | performed at [facility] | | LAB | | | | [address];[place] | | | | | | [address] | | | | + + + [...] K/uL | LAB | | | | [facility];[address] | [address];[place] [address] | | | | + + + + + + | RED CELL | 4.20Comment: Testing | 4.20 - 5.70 | EXTERNAL | | | COUNT | performed at [facility];[address] | M/uL | LAB | | | | [address];[place] | | | | | | [address] | | | | + + + + + + | Hgb | 12.4 (L)Comment: Testing | 13.2 - 17.0 | EXTERNAL | | | | performed at [facility];[address] | g/dL | LAB | | | | [address];[place] | | | | | | [address] | | | | + + + + + + | Hematocrit, | 36.3 (L)Comment: Testing | 39.0 - 50.0 % | EXTERNAL | | | POC | performed at [facility];[address] | | LAB | | | | [address];[place] | | | | | | [address] | | | | + + + + + + | MCV | 86.5Comment: Testing | 80.0 - 100.0 fl | EXTERNAL | | | | performed at [facility];[address] | | LAB | | | | [address];[place] | | | | | | [address] | | | | + + + + + + | MCH | 29.4Comment: Testing | 27.0 - 34.0 pg | EXTERNAL | | | | performed at [facility];[address] | | LAB | | | | [address];[place] | | | | | | [address] | | | | + + + + + + | MCHC | 34.0Comment: Testing | 32.0 - 35.5 | EXTERNAL | | | | performed at [facility];[address] | g/dL | LAB | | | | [address];[place] | | | | | | [address] | | | | + + + + + + | RDW-CV | 42.9Comment: Testing | 37 - 53 fl | EXTERNAL | | | | performed at [facility];[address] | | LAB | | | | [address];[place] | | | | | | [address] | | | | + + + + + + | Platelet | 258Comment: Testing | 150 - 400 K/uL | EXTERNAL | | | Count | performed at [facility];[address] | | LAB | | | Plasma | [address];[place] | | | | | | [address] | | | | + + + + + + | MPV | 8.3Comment: Testing | fl | EXTERNAL | | | | performed at [facility];[address] | | LAB | | | | [address];[place] | | | | | | [address] | | | | + + + + + + | Differentia | AUTOMATEDComment: | | EXTERNAL | | | l Type | Testing performed at | | LAB | | | | [facility];[address];[place] [address] | | | | + + + + + + | % Segmented | 87.43Comment: Testing | % | EXTERNAL | | | | performed at [facility];[address] | | LAB | | | Neutrophils | [address];[place] | | | | | | [address] | | | | + + + + + + | % | 5.56Comment: Testing | % | EXTERNAL | | | Lymphocytes | performed at [facility];[address] | | LAB | | | | [address];[place] | | | | | | [address] | | | | + + + + + + | % Monocytes | 4.36Comment: Testing | % | EXTERNAL | | | | performed at [facility];[address] | | LAB | | | | [address];[place] | | | | | | [address] | | | | + + + + + + | % | 1.84Comment: Testing | % | EXTERNAL | | | Eosinophils | performed at [facility];[address] | | LAB | | | | [address];[place] | | | | | | [address] | | | | + + + + + + | % Basophils | 0.81Comment: Testing | % | EXTERNAL | | | | performed at [facility];[address] | | LAB | | | | [address];[place] | | | | | | [address] | | | | + + + + + + | Absolute | 17.02 (H)Comment: | 1.90 - 7.40 | EXTERNAL | | | Segmented | Testing performed at | K/uL | LAB | | | Neutrophils | [facility];[address];[place] [address] | | | | + + + + + + | Absolute | 1.08Comment: Testing | 1.00 - 3.90 | EXTERNAL | | | Lymphocytes | performed at [facility];[address] | K/uL | LAB | | | | [address];[place] | | | | | | [address] | | | | + + + + + + | Absolute | 0.85 (H)Comment: Testing | 0.00 - 0.80 | EXTERNAL | | | Monocytes | performed at [facility];[address] | K/uL | LAB | | | | [address];[place] | | | | | | [address] | | | | + + + + + + | Absolute | 0.36Comment: Testing | 0.00 - 0.50 | EXTERNAL | | | Eosinophils | performed at [facility];[address] | K/uL | LAB | | | | [address];[place] | | | | | | [address] | | | | + + + + + + | Absolute | 0.16 (H)Comment: Testing | 0.00 - 0.10 | EXTERNAL | | | Basophils | performed at [facility];[address] | K/uL | LAB | | | | [address];[place] | | | | | | [address] | | | | + + + + + + | RBC | RBC AND PLT MORPHOLOGY | | EXTERNAL | | | Morphology | APPEAR NORMALComment: | | LAB | | | | Testing performed at | | | | | | [facility];[address];[place] [address] | | | | + + + + + + | Platelet | ADEQUATEComment: Testing | | EXTERNAL | | | Estimate | performed at [facility];[address] | | LAB | | | | [address];[place] | | | | | | [address] | | | | + + + + + + | Differentia | SLIDE SCANNED, AGREES | | EXTERNAL | | | l Comments | WITH AUTOMATED | | LAB | | | | RESULTS.Comment: Testing | | | | | | performed at [facility];[address] | | | | | | [address];[place], [place] | | | | | | [address] | | | | + + + [...] | | | | performed at [facility] | | LAB | | | | [address];[place], [place] | | | | | | [address] | | | | + + + [...] | | | | performed at [facility];[address] | mmol/L | LAB | | | | [address];[place] | | | | | | [address] | | | | + + + + + + | K | 5.1 (H)Comment: MODERATE | 3.5 - 4.9 | EXTERNAL | | | | HEMOLYSISTesting | mmol/L | LAB | | | | performed at [facility];[address] | | | | | | [address];[place] | | | | | | [address] | | | | + + + + + + | Cl | 93 (L)Comment: Testing | 99 - 109 mmol/L | EXTERNAL | | | | performed at [facility];[address] | | LAB | | | | [address];[place] | | | | | | [address] | | | | + + + + + + | CO2 | 23Comment: Testing | 23 - 32 mmol/L | EXTERNAL | | | | performed at [facility];[address] | | LAB | | | | [address];[place] | | | | | | [address] | | | | + + + + + + | Anion Gap | 14Comment: Testing | 5 - 20 mmol/L | EXTERNAL | | | | performed at [facility];[address] | | LAB | | | | [address];[place] | | | | | | [address] | | | | + + + + + + | Glucose, | 635 (HH)Comment: CALLED | 65 - 99 mg/dL | EXTERNAL | | | Fasting | DR LING COUCH | | LAB | | | | AT 2216 BY RHREAD BACK | | | | | | RESULTS VERIFIEDTesting | | | | | | performed at [facility];[address] | | | | | | [address];[place] | | | | | | [address] | | | | + + + + + + | BUN | 13Comment: Testing | 8 - 25 mg/dL | EXTERNAL | | | | performed at [facility];[address] | | LAB | | | | [address];[place] | | | | | | [address] | | | | + + + + + + | Creatinine | 1.4 (H)Comment: Testing | 0.70 - 1.30 | EXTERNAL | | | | performed at [facility];888 | mg/dL | LAB | | | | [address];[place] | | | | | | [address] | | | | + + + + + + | BUN/Creatin | 10Comment: Testing | | EXTERNAL | | | ine Ratio | performed at [facility];[address] | | LAB | | | | [address];[place] | | | | | | [address] | | | | + + + + + + | Calcium | 7.9 (L)Comment: Testing | 8.5 - 10.5 | EXTERNAL | | | | performed at [facility];888 | mg/dL | LAB | | | | [address];[place] | | | | | | [address] | | | | + + + + + + | Protein, | 7.7Comment: Testing | 6.3 - 8.2 g/dL | EXTERNAL | | | Total | performed at [facility];[address] | | LAB | | | | [address];[place] | | | | | | [address] | | | | + + + + + + | Albumin | 2.6 (L)Comment: Testing | 3.6 - 5.0 g/dL | EXTERNAL | | | | performed at [facility];[address] | | LAB | | | | [address];[place] | | | | | | [address] | | | | + + + + + + | Globulin | 5.1 (H)Comment: Testing | 1.3 - 4.9 g/dL | EXTERNAL | | | | performed at [facility];[address] | | LAB | | | | [address];[place] | | | | | | [address] | | | | + + + + + + | A/G Ratio | 0.5 (L)Comment: Testing | 1.0 - 2.4 | EXTERNAL | | | | performed at [facility];[address] | | LAB | | | | [address];[place] | | | | | | [address] | | | | + + + + + + | Bilirubin | 0.6Comment: Testing | 0.1 - 1.5 mg/dL | EXTERNAL | | | Total | performed at [facility];[address] | | LAB | | | | [address];[place] | | | | | | [address] | | | | + + + + + + | ALP, | 259 (H)Comment: Testing | 35 - 115 U/L | EXTERNAL | | | External | performed at [facility];[address] | | LAB | | | | [address];[place] | | | | | | [address] | | | | + + + + + + | AST | 17Comment: MODERATE | 10 - 45 U/L | EXTERNAL | | | | HEMOLYSISTesting | | LAB | | | | performed at [facility];[address] | | | | | | [address];[place] | | | | | | [address] | | | | + + + + + + | ALT | 17Comment: Testing | 10 - 65 U/L | EXTERNAL | | | | performed at [facility];[address] | | LAB | | | | [address];[place] | | | | | | [address] | | | | + + + [...] | | | | | | at [facility];[address] [facility] | | | | | | [facility];[place] [address] | | | | + + + [...]
--- OUTSIDE RECORDS SUMMARY | ~2019-08-11 | XMS | Clinical Summary ---
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 | Role | Phone | [...] right foot, limited to breakdown of skin ([facility]) | 01/13/2018 | + + + | Cellulitis and abscess of foot | 12/15/2016 | + + + | Osteomyelitis ([facility]) | 12/15/2016 | + + + | Essential hypertension | 03/04/2015 | + + + | Type 2 diabetes mellitus, with long-term current use of insulin | 03/04/2015 | | ([facility]) | | + + + Family [...] +------+-------+ + | MEDICAID | [place] | [id number] | | | [address] | | | N | | | | [place], [place] | | | [place] | | | | [address] | | | 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
--- OUTSIDE RECORDS SUMMARY | ~2019-08-11 | XMS | Encounter Summary ---
Demographics + + + | Address | [address] | | | [place] [address] | + + + | Home Phone [...] Team Providers + +------+ + | Care [employer] Wiring Technician Name | Role | Phone | [...] | 04/12/ | Telephone | [facility] | Avi Forde MD | [facility] | | 2015 | | GASTROENTEROLOGY | [address], [place] | | | | | [address] [place] | [address] [place] | | | | | [address] [place], [place] | [address] | | | | | [address] | | | | | | [phone] | | | +--------+ + + + [...]
--- OUTSIDE RECORDS SUMMARY | ~2019-08-11 | XMS | Encounter Summary ---
Demographics + + + | Address | [address] | | | [place] [address] | + + + | Home Phone | | + + + | Preferred Language | Unknown | + + + | Marital Status | Single | + + + | Restorationism Affiliation | 1077 | + + + [...] Providers + +------+ + | Care High Value Associate Name | Role | Phone | + [...] | | type | [address] | [place], | | | | | | [place], | [place] [address] | | | | | | [place] [address] | Phone: | | | | | | Phone: | [phone] | | | | | | [phone] | Fax: | | | | | | Fax: | [phone] | | | | | | [phone] | | +--------+ + + + + + Reason for Visit + + + | Reason | Comments | + + + | Hematuria | | + + + Encounter Details +--------+ + + + + | Date | Type | Department | Care Team | Description | +--------+ + + + + | 10/16/ | Emergency | [facility] | Keenan Estrada MD | Hematuria, | | 2019 | | MED CTR EMERGENCY | [address] | unspecified type | | | | CENTER [address] | [place] | (Primary Dx) | | | | [place] | [id number] | | | | | [address] | | | | | | [phone] | | | +--------+ + + + [...] + + +--------+ + + | Urology [facility] - | Outpatient | Routin | [...] + | [facility] | [address] | [place] | [phone] | | [facility] | | [address] | | | - LABORATORY | | [...] - 1.030 | [facility] | | | [place] | | | [facility] | | [...] [address] | [place] | [phone] | | [facility] | | [address] | | | - LABORATORY | | [...]
--- OUTSIDE RECORDS SUMMARY | ~2019-08-11 | XMS | Encounter Summary ---
Demographics + + + | Address | [address] | | | [place] [address] | + + + | Home Phone [...] Team Providers + +------+ + | Care Postage Machine Operator Name | Role | Phone | + +------+ + | Estrella Light PA-C | PCP | | + +------+ + Encounter Details +--------+ + + + + | Date | Type | Department | Care Team | Description | +--------+ + + + + | 09/04/ | Abstract | [facility] | Avi Forde MD | | | 2014 | | GASTROENTEROLOGY | [address], [place] | | | | | [address] [place] | [address] [place] | | | | | [address] [place], [place] | [address] | | | | | [address] | | | | | | [phone] | | | +--------+ + + + [...]
--- OUTSIDE RECORDS SUMMARY | ~2019-08-11 | XMS | Encounter Summary ---
Demographics + + + | Address | [address] | | | [place] [address] | + + + | Home Phone [...] Team Providers + +------+ + | Care Paper Gluing Operator Name | Role | Phone | + +------+ + PCP | Unavailable | + +------+ + Encounter Details +--------+ + + + + | Date | Type | Department | Care Team | Description | +--------+ + + + + | 07/19/ | Hospital | [facility] | | | | 1992 | Encounter | MED CTR MP INTRA OP | | | | | | [address] | | | | | | [place] | | | | | | [address] | | | | | | [phone] | | | +--------+ + + + [...]
--- OUTSIDE RECORDS SUMMARY | ~2019-08-11 | XMS | Clinical Summary ---
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 | + + + +---+ | [...] | [employer] | [employer] | [id number] | | [phone] | | Medica | | MEDICAID HMO | HEALTH | | 018-Pr | 1 | | id | | | MDCD | | esent | | | | | | [place]MO [place] | | | | | | + +--------+ +--------+ +---------+--------+ | [facility] | IHS | [id number] | | | | Indemn | | [...] | + +--------+ +--------+ + + | Kuldpi Andrews | Person | Self | [birth year] | [address] | | | al/Fam | | 1965 | [phone] | [place] | | | vikas | | | 8 (Home) | [address] | + +--------+ +--------+ + + Advance Directives + + + + + | Type | Date Recorded | Patient | Explanation | | | | Form Presser | | + + + + + | Power of | | | | | Stem Shaper | | | | + + + + + | Advance | | | | | Directive | | | | + + + + +
--- OUTSIDE RECORDS SUMMARY | ~2019-08-11 | XMS | Encounter Summary ---
Demographics + + + | Address | [address] | | | [place] [address] | + + + | Home Phone [...] Team Providers + +------+ + | Care Club Room Attendant Name | Role | Phone | [...] 2016 | | GASTROENTEROLOGY | [address], [place] | | | | | [address] [place] | [address] [place] | | | | | [address] [place], [place] | [address] | | | | | [address] | | | | | | [phone] | | | +--------+ + + + [...]
--- OUTSIDE RECORDS SUMMARY | ~2019-08-11 | XMS | Encounter Summary ---
Demographics + + + | Address | [address] | | | [place] [address] | + + + | Home Phone [...] Team Providers + +------+ + | Care Spanish Linguist Name | Role | Phone | + +------+ + | Estrella Light PA-C | PCP | | + +------+ + Encounter Details +--------+---------+ + + + | Date | Type | Department | Care Team | Description | +--------+---------+ + + + | 04/12/ | Surgery | [facility] | Avi Forde MD | EGD / COLONOSCOPY - | | 2015 | | MED CTR MP INTRA OP | [address], [place] | DM (insulin) | | | | [address] | [address] [place] | | | | | [place] | [id number] | | | | | [address] | | | | | | [phone] | | | +--------+---------+ + + + [...]
--- OUTSIDE RECORDS SUMMARY | ~2019-08-11 | XMS | Encounter Summary ---
Demographics + + + | Address | [address] | | | [place] [address] | + + + | Home Phone [...] Team Providers + +------+ + | Care Conveyor Feeder Name | Role | Phone | + [...] [place] | | | | | [address] [place], [place] | [place] [address] | | | | | [address] | | | | | | [phone] | | | +--------+ + + + [...]
--- OUTSIDE RECORDS SUMMARY | ~2019-08-11 | XMS | Encounter Summary ---
Demographics + + + | Address | [address] | | | [place] [address] | + + + | Home Phone [...] Team Providers + +------+ + | Care Board Winder Name | Role | Phone | + +------+ + | Estrella Light PA-C | PCP | | + +------+ + Encounter Details +--------+ + + + + | Date | Type | Department | Care Team | Description | +--------+ + + + + | 05/12/ | Orders Only | [facility] | Provider, | | | 2019 | | SYSTEM GENERIC OP | [address] | | | | | CONVERSION [address] | [place] | | | | | [address] [place], [place] | [place] [address] | | | | | [address] | | | | | | [phone] | | | +--------+ + + + [...]
--- OUTSIDE RECORDS SUMMARY | ~2019-08-11 | XMS | Encounter Summary ---
Demographics + + + | Address | [address] | | | [place] [address] | + + + | Home Phone [...] Team Providers + +------+ + | Care Underwriting Analyst Name | Role | Phone | [...] | [address] | [address] [place], | | | | | IgG Gliadin | [place], [place] | [place] [address] | | | | | antibody | [address] [place] | [place], | | | | | positive | [place] | [place] [address] | | | | | Alcohol | [address] | Phone: | | | | | abuse | Phone: | [phone] | | | | | Procedures | [phone] | Fax: | | | | | [place] | Fax: | [phone] | | | | | COLONOSCOPY | [phone] | | | | | | FLX [...] | | GASTROENTEROLOGY | [address], [place] | (procedure ) | | | | [address] [place] | [address] [place], [place] | | | | | [address] [place], [place] | [address] | | | | | [address] | | | | | | [phone] | | | +--------+ + + + [...]
--- OUTSIDE RECORDS SUMMARY | ~2019-08-11 | XMS | Encounter Summary ---
Demographics + + + | Address | [address] | | | [place] [address] | + + + | Home Phone [...] Team Providers + +------+ + | Care Fiber Technologist Name | Role | Phone | + +------+ + PCP | Unavailable | + +------+ + Encounter Details +--------+ + + + + | Date | Type | Department | Care Team | Description | +--------+ + + + + | 07/19/ | Hospital | [facility] | | | | 1992 | Encounter | MED CTR MP INTRA OP | | | | | | [address] | | | | | | [place] | | | | | | [address] | | | | | | [phone] | | | +--------+ + + + [...]
--- OUTSIDE RECORDS SUMMARY | ~2019-08-11 | XMS | Encounter Summary ---
Demographics + + + | Address | [address] | | | [place] [address] | + + + | Home Phone [...] Team Providers + +------+ + | Care Threshing Department Supervisor Name | Role | Phone | + +------+ + | Estrella Light PA-C | PCP | | + +------+ + Encounter Details +--------+ + + + + | Date | Type | Department | Care Team | Description | +--------+ + + + + | 01/13/ | Hospital | [facility] GENER[facility] IP | Conversion | Diagnosis unknown | | 2018 | Encounter | CONVERSION [address]P [address] | Transaction, | | | | | [address] [address] | Provider Unknown | | | | | [place] | | | | | | [address] | (Fax) | | | | | [phone] | | | +--------+ + + + [...]
--- OUTSIDE RECORDS SUMMARY | ~2019-08-11 | XMS | Encounter Summary ---
Demographics + + + | Address | [address] | | | [place] [address] | + + + | Home Phone [...] Team Providers + +------+ + | Care Multi Craft Maintenance Technician Name | Role | Phone | + +------+ + | Estrella Light PA-C | PCP | | + +------+ + Encounter Details +--------+ + + + + | Date | Type | Department | Care Team | Description | +--------+ + + + + | 09/04/ | Abstract | [facility] | Avi Forde MD | | | 2014 | | GASTROENTEROLOGY | [address], [place] | | | | | [address] [place] | [address] [place] | | | | | [address] [place], [place] | [address] | | | | | [address] | | | | | | [phone] | | | +--------+ + + + [...]
--- OUTSIDE RECORDS SUMMARY | ~2019-08-11 | XMS | Encounter Summary ---
Demographics + + + | Address | [address] | | | [place] [address] | + + + | Home Phone [...] + + | Author | [facility] | | | and [place] | + + + | Organization | [facility] | | [...] Team Providers + +------+ + | Care Automotive Warranty Administrator Name | Role | Phone | [...] | diarrhea | | | | [address] [place], [place] | [address] | | | | | [address] | | | | | | [phone] | | | +--------+ + + + [...]
--- OUTSIDE RECORDS SUMMARY | ~2019-08-11 | XMS | Encounter Summary ---
Demographics + + + | Address | [address] | | | [place] [address] | + + + | Home Phone [...] Team Providers + +------+ + | Care Concierge Receptionist Name | Role | Phone | + [...] 2018 - | Encounter | [facility] | MD Antolin Hill | | | | | CLINICAL DECISION | [place], [place] | | | 01/14/ | | UNIT [facility] | [address] | | | 2017 | | [place], [place] | | | | | | [address] | | | | | | [phone] | | | +--------+ + + + [...] 01/14/181931 Date of Service: 01/14/18899 Status: Signed Catering Convention Services Manager: Abhinav Winters DO (Physician) The patient is 52 y.o. 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 In the emergency department at [facility], EKG showed T inversions in [...] Date of Service: 04/15/18 0900 Status: Signed Catering Convention Services Manager: Elizabeth Galvez, RN (Registered Nurse) Approached by [...] 01/13/181399 Date of Service: 01/13/181399 Status: Signed Catering Convention Services Manager: Rosalba Luo RPH (Pharmacist) Clinical Pharmacy Note: [...] + + + | KULDIP Partida [employer] XR CHEST 1 VIEW 01/14/2018 7:43 AM [...] | | | Basophils | performed at [facility], [address] | K/uL | LAB | | | | [address] [place], | | | | | | [place] [address] | | | | + + + [...] | | | | [place] [address] | | | | + + + [...] EXTERNAL | | | | performed at [facility], [address] | | LAB | | | | [place], | | | | | | [place] [address] | | | | + + + [...] | | | | [place] [address] | | | | + + + [...] | EXTERNAL | | | A1c | [place] | | LAB | | [...] | | | | | performed at [facility], [address] | | | | | | [facility], | | | | | | [place] [address] | | | | + + + [...] | | | Cholesterol | performed at [facility], [address] | | LAB | | | , | [place], | | | | | Calculated, | [place] [address] | | | | | External | [...] Man, | | | | | | [place] [address] | | | | + + + [...] | | | Fingerstick | performed at [facility];[address] | | LAB | | | | [address];[place], [place] | | | | | | [address] | | | | + + + [...] EXTERNAL | | | | performed at [facility];[address] | | LAB | | | | [address];[place], [place] | | | | | | [address] | | | | + + + [...] | | | Fingerstick | performed at [facility];[address] | | LAB | | | | [address];[place] | | | | | | [address] | | | | + + + [...] | | | | | performed at [facility] | | | | | | [facility];[place], [place] | | | | | | [address] | | | | + + + [...] EXTERNAL | | | | performed at [facility] | | LAB | | | | [address];[place], [place] | | | | | | [address] | | | | + + + [...] | | | Fingerstick | performed at [facility];[address] | | LAB | | | | [address];[place] | | | | | | [address] | | | | + + + [...] | | | Fingerstick | performed at [facility];[address] | | LAB | | | | [address];[place] | | | | | | [address] | | | | + + + [...] | | | | | performed at [facility];[address] | | | | | | [address];[place], [place] | | | | | | [address] | | | | + + + [...] EXTERNAL | | | | performed at [facility];[address] | | LAB | | | | [address];[place], [place] | | | | | | [address] | | | | + + + [...] TV A Star: 0.46 m/s TV Dec [place]: 2.14 m/s2 TV Dec Time: | | | 223.61 ms TV E Star: 0.47 m/s TV E/A Ratio: 1.03 | | | Biochemical Development Engineer: DIDI Authenticated by: Dereck Galicia Report | [...] (A-L): | | 16.36 ml/m2LAAs A2C: 13.19 ae2VUDUD A-L A2C: 34.91 mlLALs A2C: 4.23 cmLAAs A4C: | | 11.37 cx7LQPLF A-L A4C: 29.21 mlLALs A4C: 3.75 cmRAAd: 13.57 wy5HZCNX A-L: | | 35.22 mlRAEDV MOD: 30.46 mlRALd: 4.44 cmTAPSE: 1.67 cmHR: 82.18 BPMAV maxPG: | | 3.19 mmHgAV meanP.99 mmHgAV Vmax: 0.89 m/Simran Vmean: 0.69 m/Simran VTI: 18.16 | | cmAVA Vmax: 3.34 cm2AVA (VTI): 3.51 cc3CIFN Vmax: 0.00 cm2/m2AVAI (VTI): 0.00 | | cm2/m2LVCI Dopp: 2.41 l/dnrs4MKKW Dopp: 5.00 l/minHR: 78.46 BPMLVOT maxP.34 | [...] 3 mmHgTV A Star: 0.46 m/sTV Dec [place]: 2.14 m/s2TV Dec Time: 223.61 | | msTV E Star: 0.47 m/sTV E/A Ratio: 1.03 Biochemical Development Engineer: Nishaticated by: Dereck | | RominalaReport Date/Time: [...] A Star: 0.46 m/s | |TV Dec [place]: 2.14 m/s2 | |TV Dec Time: 223.61 ms | |TV E Star: 0.47 m/s | |TV E/A Ratio: 1.03 | | | |Biochemical Development Engineer: GD | |Authenticated by: Dereck Galicia | [...] | | | Fingerstick | performed at [facility];[address] | | LAB | | | | [address];[place], [place] | | | | | | [address] | | | | + + + [...] | | | | | performed at [facility];[address] | | | | | | [address];[place], [place] | | | | | | [address] | | | | + + + [...] | | | PCRAbnormal Testing performed at [facility];[address] [facility];[place] [address] | | + + + + +---------+ [...]
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
== END 2019-08-11 17:15 | disposition left against medical advice (07) ==
LOC: ED 16:16
DX: R31.9 Hematuria, unspecified (principal); E11.9 Type 2 diabetes mellitus without complications; I10 Essential (primary) hypertension; Z87.891 Personal history of nicotine dependence; Z88.0 Allergy status to penicillin; Z79.899 Other long term (current) drug therapy; Z79.4 Long term (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
CPT/HCPCS: 99283

== ENCOUNTER 2019-08-15 01:01 | Emergency (ER) | payer OTHER ==
[~2019-08-15] VITALS: Ht 177.8 cm; Wt 74.8 kg
--- OUTSIDE RECORDS SUMMARY | ~2019-08-15 | XMS | Encounter Summary ---
Demographics + + + | Address | [address] | | | [place] [address] | + + + | Home Phone | | + + + | Preferred Language | Unknown | + + + | Marital Status | Single | + + + | Buddhist Affiliation | 1077 | + + + | Race | Unknown | + + + | Ethnic Group | Unknown | + + + Author + + + | Author | [facility] | | | and [place] | + + + | Organization | [facility] | | | and [place] | + + + | Address | Unknown | + + + | Phone | Unavailable | + + + Support + + +---------+ + | Name | Relationship | Address | Phone | + + +---------+ + | Sarah Hanson | ECON | Unknown | | + + +---------+ + | Yasmany Smith | ECON | Unknown | | + + +---------+ + | Katherine Druan | ECON | Unknown | | + + +---------+ + | Sarah Hanson | ECON | Unknown | | + + +---------+ + Care Team Providers + +------+ + | Care Cutter Down Name | Role | Phone | + +------+ + | Estrella Light PA-C | PCP | | + +------+ + Reason for Referral Evaluate & Treat (Routine) +--------+ + + + + + | Status | Reason | Specialty | Diagnoses / | Referred By | Referred To | | | | | Procedures | Contact | Contact | +--------+ + + + + + | Closed | Specialty | Gastroenterol | Diagnoses | Harri, | Harri, | | | Services | ogy | IgG Gliadin | Avi Castro MD | Avi Castro MD | | | Required | | antibody | [address], | | | | | positive | [place], [place] | [place] [address] | | | | | Chronic | [address] [place] | [place], | | | | | diarrhea | [place], [place] | [place] [address] | | | | | Procedures | [address] | Phone: | | | | | [place] | Phone: | [phone] | | | | | COLONOSCOPY | [phone] | Fax: | | | | | FLX DX | Fax: | [phone] | | | | | W/COLLJ SPEC | [phone] | | | | | | WHEN PFRMD | | | | | | | PA | | | | | | | COLONOSCOPY | | | | | | | W/BIOPSY | | | | | | | SINGLE/MULTI | | | | | | | PLE PA | | | | | | | COLSC FLX | | | | | | | W/RMVL OF | | | | | | | TUMOR POLYP | | | | | | | LESION SNARE | | | | | | | TQ PA | | | | | | | ESOPHAGOGAST | | | | | | | RODUODENOSCO | | | | | | | PY TRANSORAL | | | | | | | DIAGNOSTIC | | | | | | | PA EDG | | | | | | | TRANSORAL | | | | | | | BIOPSY | | | | | | | SINGLE/MULTI | | | | | | | PLE | | | +--------+ + + + + + Reason for Visit + + + | Reason | Comments | + + + | Appointment | egd/colon | + + + Encounter Details +--------+ + + + + | Date | Type | Department | Care Team | Description | +--------+ + + + + | 03/08/ | Telephone | [facility] | Avi Forde MD | Appointment | | 2015 | | GASTROENTEROLOGY | [address], [place] | (egd/colon ) | | | | [address] [place] | [address] [place], [place] | | | | | [address] [place], [place] | [address] | | | | | [address] | | | | | | [phone] | | | +--------+ + + + + Social History + + + +--------+ + | Tobacco Use | Types | Packs/Day | Years | Date | | | | | Used | | + + + +--------+ + | Former Smoker | Cigarettes | | 0.2 | Quit: 10/02/1986 | + + + +--------+ + + +------+---+ + | Smokeless Tobacco: | Chew | | Quit: | | Former User | | | 10/02/19 | | | | | 09 | + +------+---+ + + + +---------+ + | Alcohol Use | Drinks/Week | oz/Week | Comments | + + +---------+ + | No | 0 Standard drinks | 0.0 | | | | or equivalent | | | + + +---------+ + + + + | Sex Assigned at | Date Recorded | | | | + + + | Not on file | | + + + + + + + | Job Start Date | Occupation | Industry | + + + + | Not on file | Not on file | Not on file | + + + + + + + + | Travel History | Travel Start | Travel End | + + + + + + | No recent travel history available. | + + documented as of this encounter Plan of Treatment + + +--------+ + + | Name | Type | Priori | Associated Diagnoses | Order Schedule | | | | ty | | | + + +--------+ + + | Ambulatory referral | Outpatient | Routin | IgG Gliadin | Expected: | | to Gastroenterology | Referral | e | antibody positive | 04/12/2016, Expires: | | (joseph) | | | Chronic diarrhea | 03/08/2017 | + + +--------+ + + documented as of this encounter Visit Diagnoses + + | Diagnosis | + + | IgG Gliadin antibody positive - Primary Other and unspecified nonspecific | | immunological findings | + + | Chronic diarrhea Diarrhea | + + documented in this encounter"
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
--- OUTSIDE RECORDS SUMMARY | ~2019-08-15 | XMS | Encounter Summary ---
Demographics + + + | Address | [address] | | | [place] [address] | + + + | Home Phone | | + + + | Preferred Language | Unknown | + + + | Marital Status | Single | + + + | [employer] Affiliation | [id number] | + + + | Race | Unknown | + + + | Ethnic Group | Unknown | + + + Author + + + | Author | [facility] | | | and [place] | + + + | Organization | [facility] | | [...] Team Providers + +------+ + | Care Bucket Pusher Name | Role | Phone | + +------+ + PCP | Unavailable | + +------+ + Encounter Details +--------+ + + + + | Date | Type | Department | Care Team | Description | +--------+ + + + + | 05/21/ | Hospital | [facility] | Unknown, | | | 1992 | Encounter | [facility] [address] | [place] | | | | | [place] | [phone] | | | | | [place] [address] | | | | | | [phone] | | | +--------+ + + + [...]
--- OUTSIDE RECORDS SUMMARY | ~2019-08-15 | XMS | Encounter Summary ---
Demographics + + + | Address | [address] | | | [place] [address] | + + + | Home Phone [...] Team Providers + +------+ + | Care Workforce Advisor Name | Role | Phone | + +------+ + | Estrella Light PA-C | PCP | | + +------+ + Encounter Details +--------+ + + + + | Date | Type | Department | Care Team | Description | +--------+ + + + + | 12/14/ | Hospital | [facility] | [place], | Osteomyelitis of | | 2017 - | Encounter | [facility] | MD Pavel [address] | foot, left, acute | | | | CARE FLOOR [address] | [address] | ([facility]); Uncontrolled | | 12/20/ | | [address] | [place] [address] | type 2 diabetes | | 2017 | | [place], [place] | [phone] | mellitus with | | | | [address] | | hyperglycemia, | | | | [phone] | | unspecified long | | | | | | term insulin use | | | | | | status ([facility]); Renal | | | | | | [...] 1933 Date of Service: 12/20/161538 Status: Addendum Help Desk Agent: Bunny Chaney MD (Physician) Related Notes: Original Note by Bunny Chaney MD (Physician) filed at 12/26/16 0644 [facility] Service: Hospitalist Physician Discharge Summary Patient ID: Kuldip Smith [id number] y.o. 1965 Admit date: 12/14/2016 Discharge [...] up: Estrella Light PA-C [address] [place] [address] Rebeca Reza MD [address] [facility] [address] Schedule an appointment as soon as possible for a visit in 10 days Dictation and block placer or software, [employer], used which may contain error for similar [...] - AMPUTATION; Surgeon: Walter Fernandez DPM; Location: [facility] MAIN OR; Service: Podiatry; Laterality: Left; Significant [...] Management by Jenny Vaughan RN at 12/20/16 9321 Author: Jenny Vaughan RN Service: (none) Author Type: Registered Nurse Filed: 12/20/16 8578 Date of Service: 12/20/161538 Status: Signed Help Desk Agent: Jenny Vaughan RN (Registered Nurse) 1610 - Received call from [facility] stating they are now unable to accept pa tient due to a "freeze on admits". They are aware patient has been discharged and is en rou te to home. They are still unable to accept. Call placed to [facility] OPP rega rding need for services. They state pt will need to arrange wound care/dressing changes thr ough his PCP per insurance requirements. Voicemail left for Coby at [facility] to return call. Will need to call back in morning to schedule appointment as clinic is currently closed. onver ruben Transaction, Provider Unknown - 12/20/2016 3:39 PM PDT Case Management by Mirlande Prescott RN at 12/20/16 1634 Author: Mirlande Prescott RN Service: (none) Author Type: Registered Nurse Filed: 12/21/16 0808 Date of Service: 12/20/16 1539 Status: Signed Help Desk Agent: Mirlande Prescott RN (Registered Nurse) [phone]: Tc to pt's PCP, Coby Light, with [facility], to updat e about [facility] not being able to admit pt. Coby states she and Charlotte will work on getting pt the appropriate wound vac care he needs, they are going to try and get pt into O P wound therapy with [facility] or maybe to OP in [place]. Coby states she will als o call [facility] as to when they can admit pt under their services. Maribel onver ruben Transaction, Provider Unknown - 12/20/2016 1:03 PM PDT Progress Notes by Rachael Molina RN at 12/20/16 1303 Author: Rachael Molina RN Service: Wound/Ostomy Care Author Type: Registered Nurse Filed: 12/20/16 1311 Date of Service: 12/20/16 1303 Status: Signed Help Desk Agent: Rachael Molina RN (Registered Nurse) Wound care in to switch patient out to portable wound vac unit. This is a sol vac on l oan from [facility]. Explained to patient when his insurance approves his home vac unit, that t his sol vac is to be returned via [employer]. Instructions given in detail, voiced candelaria frias. Photo taken of tracking number and faxed to Alicia [facility] rep. Instructions on how to [...] further protection. Hospital vac dc'd in [facility] express: #[id number] Rachael Molina RN, ON 12/20/2016 1:10 PM onver ruben Transaction, Provider Unknown - 12/20/2016 11:34 AM PDT Case Management by Mirlande Prescott RN at 12/20/16 1134 Author: Mirlande Prescott RN Service: (none) Author Type: Registered Nurse Filed: 12/20/16 1459 Date of Service: 12/20/16 1134 Status: Addendum Help Desk Agent: Mirlande Prescott RN (Registered Nurse) Related Notes: Original Note by Mirlande Prescott RN (Registered Nurse) filed at 12/20/16 114 9 Per rounding with pt, he will be d/c home today. Pt states his mother will be providing tra nsportation home. Wound vac has been approved by [facility] emergency department. [facility] has been set up, and they have been notified about d/c, pt may not be able t o be admitted until . Pt's wound dressing is due Monday. Tc to Angie with wound care, it's not ideal that pt's dressing doesn't get changed until , but it is ok to wait. Dr Chaney was notified and agrees with plan. Tc to Coby [phone] and Charlotte [phone] with [facility]/mannie pickens nd left mssgs of pt's d/c Today. Faxed AVS to [facility] Maribel Iqra Mcgregor PT - 12/20/2016 10:07 AM PDTFormatting of this note might be different from th e original. Therapy Progress Note by Karina Zabala PT at 12/20/16 1007 Author: Karina Zabala PT Service: (none) Author Type: Physical Therapist Filed: 12/20/16 1037 Date of Service: 12/20/16 1007 Status: Signed Help Desk Agent: Karina Zabala PT (Physical Therapist) 12/20/16 1007 [...] (none) Author Type: Physical Therapist Filed: 12/19/16 7882 Date of Service: 12/19/166 Status: Signed Help Desk Agent: Natalia Marte PT (Physical Therapist) 12/19/16 1646 PT Last Visit PT Received On 12/19/16 Reason for Treatment Other (comment) (L foot osteomyelitis) Requires PT Follow Up Awaiting tx order Follow up PT Only? Yes (Assistive device assessment) Focus for Next Treatment Equipment Trial;Stair Training (bilateral axillary crutches and stair training) PT Eval/Reassessment Date 12/19/16 Assistance Required 1 person Mushroom Laborer Needed No Home Environment Type of Home Home one story Home Exterior Layout 1-3 steps (2 JEISON) Home Interior Layout Lives on main level with bedroom/bathroom Bathroom Shower/Tub Tub/shower unit Bathroom Toilet Raised Bathroom Equipment Grab bars outside of shower/bath;Raised toilet seat Bathroom Accessibility Not accessible Home Equipment Cane single point;Crutches-axillary Prior Function Level of [place]ic[place] Independent with ADLs;Independent with IADLs;Modified independent wi [...] Eval/Reassessment Date 12/19/16 Assistance Required 1 person Mushroom Laborer Needed No Precautions LE Precaution(s) LLE Precautions/WB [...] Notes by Rebeca Reza MD at 12/19/16 1569 Author: Rebeca Reza MD Service: Infectious Disease Author Type: Physician Filed: 12/20/16 0639 Date of Service: 12/19/16 0831 Status: Signed Help Desk Agent: Rebeca Reza MD (Physician) [facility] Service: Infectious Disease Progress Note Hospital Day: [...] Dec 15 2016 9:30AM Referring Provider Line: [phone] ID: [id number] MRI foot left without contrast [[id number]] Impression 1. Recent amputation of the LEFT 4th toe. 2. No radiographic evidence of residual osteomyelitis in the remaining ossicles of the LEF T forefoot. 3. Moderately extensive vascular calcifications. X-ray foot left [[id number]] PROBLEM LIST Principal Problem: Osteomyelitis (HCC) Active [...] Date of Service: 12/19/16 1103 Status: Signed Help Desk Agent: Dell Archer DO (Physician) PROGRESS NOTE 12/19/2016 [...] 1103 Date of Service: 12/19/16914 Status: Addendum Help Desk Agent: Jenny Vaughan RN (Registered Nurse) Related Notes: Original Note by Jenny Vaughan RN (Registered Nurse) filed at 12/19/16 [phone] - [facility]. She wi ll be following patient [...] accept patient. Face to face order faxed ([phone]) Charlotte [facility] RN [phone] Alicia with [facility] notified of wound vac placement. Auth form signed by hospitalist and faxed to Alicia. Lilly with [facility] Care notified of patient discharging on oral antibiotics. onver ruben Transaction, Provider Unknown - 12/18/2016 6:45 PM PDT Nurse Progress Note by Gerber Hay RN at 12/18/161844 Author: Gerber Hay RN Service: (none) Author Type: Registered Nurse Filed: 12/18/161847 Date of Service: 12/18/161844 Status: Signed Help Desk Agent: Gerber Hay RN (Registered Nurse) Pt resting [...] 12/18/16933 Date of Service: 12/18/16928 Status: Addendum Help Desk Agent: Dell Archer DO (Physician) Related Notes: Original [...] 12/18/16899 Date of Service: 12/18/16854 Status: Signed Help Desk Agent: Walter Fernandez DPM (Doctor of Podiatric Medicine) [facility] Service: Podiatry Progress Note Hospital Day: LOS: [...] home health care. Dr. David DPM in [place] take s care of this patient and [...] 12/18/16845 Date of Service: 12/18/16845 Status: Signed Help Desk Agent: Destini Vargas RPH (Pharmacist) Day 5 Vanco [...] 1108 Date of Service: 12/18/16820 Status: Signed Help Desk Agent: Rebeca Reza MD (Physician) [facility] Service: Infectious Disease Progress Note Hospital Day: [...] Dec 15 2016 9:30AM Referring Provider Line: [phone] ID: [id number] MRI foot left without contrast [[id number]] Impression 1. Recent amputation of the LEFT 4th toe. 2. No radiographic evidence of residual osteomyelitis in the remaining ossicles of the LEF T forefoot. 3. Moderately extensive vascular calcifications. X-ray foot left [[id number]] PROBLEM LIST Principal Problem: Osteomyelitis (HCC) Active [...] Note by Jihan Jacinto RPH at 12/17/16 5304 Author: Jihan Jacinto RPH Service: Pharmacy Author Type: Pharmacist Filed: 12/17/162246 Date of Service: 12/17/162246 Status: Signed Help Desk Agent: Jihan Jacinto RPH (Pharmacist) Clinical Pharmacy Note: [...] 12/17/161750 Date of Service: 12/17/161742 Status: Signed Help Desk Agent: Gerber Hay RN (Registered Nurse) Wound vac [...] Notes by Rebeca Reza MD at 12/17/16 3150 Author: Rebeca Reza MD Service: Infectious Disease Author Type: Physician Filed: 12/17/16 170 Date of Service: 12/17/16 1510 Status: Addendum Help Desk Agent: Rebeca Reza MD (Physician) Related Notes: Original Note by Rebeca Reza MD (Physician) filed at 12/17/16 7498 [facility] Service: Infectious Disease Progress Note Hospital Day: [...] Dec 15 2016 9:30AM Referring Provider Line: [phone] ID: [id number] MRI foot left without contrast [[id number]] Impression 1. Recent amputation of the LEFT 4th toe. 2. No radiographic evidence of residual osteomyelitis in the remaining ossicles of the LEF T forefoot. 3. Moderately extensive vascular calcifications. X-ray foot left [[id number]] PROBLEM LIST Principal Problem: Osteomyelitis (HCC) Active [...] Doctor of Podiatric Medi cine Filed: 12/17/16 9245 Date of Service: 12/17/16 1406 Status: Signed Help Desk Agent: Walter Fernandez DPM (Doctor of Podiatric Medicine) [facility] Service: Podiatry Progress Note Hospital Day: LOS: [...] Note by Gerber Hay RN at 12/17/16 1686 Author: Gerber Hay RN Service: (none) Author Type: Registered Nurse Filed: 12/17/16 4633 Date of Service: 12/17/16 1144 Status: Signed Help Desk Agent: Gerber Hay RN (Registered Nurse) Pt had [...] Notes by Dell Archer DO at 12/17/16 1052 Author: Dell Archer DO Service: Hospitalist Author Type: Physician Filed: 12/17/16 1103 Date of Service: 12/17/16 1058 Status: Signed Help Desk Agent: Dell Archer DO (Physician) PROGRESS NOTE 12/17/2016 [...] 12/17/16834 Date of Service: 12/17/16834 Status: Signed Help Desk Agent: Destini Vargas RPH (Pharmacist) Day 4 Vanco [...] 12/17/168 Date of Service: 12/17/16307 Status: Signed Help Desk Agent: Jihan Jacinto RPH (Pharmacist) Clinical Pharmacy Note: [...] 12/16/161719 Date of Service: 12/16/161709 Status: Signed Help Desk Agent: Walter Fernandez DPM (Doctor of Podiatric Medicine) [facility] Service: Podiatry Progress Note Hospital Day: LOS: [...] Notes by Rebeca Reza MD at 12/16/16 1193 Author: Rebeca Reza MD Service: Infectious Disease Author Type: Physician Filed: 12/16/16 1606 Date of Service: 12/16/162 Status: Signed Help Desk Agent: Rebeca Reza MD (Physician) [facility] Service: Infectious Disease Progress Note Hospital Day: [...] Dec 15 2016 9:30AM Referring Provider Line: [phone] ID: [id number] MRI foot left without contrast [[id number]] Impression 1. Recent amputation of the LEFT 4th toe. 2. No radiographic evidence of residual osteomyelitis in the remaining ossicles of the LEF T forefoot. 3. Moderately extensive vascular calcifications. X-ray foot left [[id number]] PROBLEM LIST Principal Problem: Osteomyelitis (HCC) Active [...] Management by Jenny Vaughan RN at 12/16/16 4264 Author: Jenny Vaughan RN Service: (none) Author Type: Registered Nurse Filed: 12/16/16 8219 Date of Service: 12/16/16 6383 Status: Signed Help Desk Agent: Jenny Comfort, RN (Registered Nurse) 12/16/16 7549 Discharge Planning Evaluation Admitting Diagnosis osteomyelitis Readmission No Living Arrangements Parent Support Systems Parent;Family members Type of Residence Private residence House type House-1 story Steps to enter 2 Independent with ADL's Yes Independent with Mobility Yes Mental Status Oriented Prior functional status not employed, independent Power of Sugar Coating Hand No Anticipated Discharge Plan Post Acute Care [...] PCP is: Estrella Light PA-C Patient's insurance: Medicare/[facility] Coverage concerns: None Medication coverage/concerns: None Community resources utilized / needed: TBD pending pt progress and treatment plan. Sascha garcia need home health services along with IV abx. Discussed with patient and he states und erstanding. Referral sent to [facility] for nursing services as patient lives in [place]. Options for home IV abx services provided to pt/family and they do not have a preference. Referral to [facility] will follow. Pt/family requested I notify Coby at the [facility] of pt status as she ar ranges services for them. Contacted Coby and provided current discharge plan. If there is a change in plan, Coby requests to be notified as she will continue to follow patient after discharge. She also states pt will be followed by their community health nurse (Charlotte ) who works alongside [facility]. Coby [facility] [phone] Assistance in transportation: Pt's family is able [...] Date of Service: 12/16/16 1012 Status: Signed Help Desk Agent: Dell Archer DO (Physician) PROGRESS NOTE 12/16/2016 [...] Date of Service: 12/15/16 1248 Status: Signed Help Desk Agent: Jenny Vaughan RN (Registered Nurse) Attempted to [...] 12/15/16405 Date of Service: 12/15/16405 Status: Signed Help Desk Agent: Jihan Jacinto RPH (Pharmacist) Clinical Pharmacy Note: [...] 12/15/16404 Date of Service: 12/15/16404 Status: Signed Help Desk Agent: Jihan Jacinto RPH (Pharmacist) Clinical Pharmacy Note: [...] | | | Fingerstick | performed at [facility];88 | | LAB | | | | [address];[place] | | | | | | [address] | | | | + + + [...] EXTERNAL | | | | performed at [facility];888 | | LAB | | | | [address];[place], [place] | | | | | | [address] | | | | + + + [...] EXTERNAL | | | | performed at [facility];888 | K/uL | LAB | | | | [address];[place] | | | | | | [address] | | | | + + + + + + | RED CELL | 4.00 (L)Comment: Testing | 4.20 - 5.70 | EXTERNAL | | | COUNT | performed at [facility];888 | M/uL | LAB | | | | [address];[place] | | | | | | [address] | | | | + + + + + + | Hgb | 11.6 (L)Comment: Testing | 13.2 - 17.0 | EXTERNAL | | | | performed at [facility];888 | g/dL | LAB | | | | [address];[place] | | | | | | [address] | | | | + + + + + + | Hematocrit, | 33.9 (L)Comment: Testing | 39.0 - 50.0 % | EXTERNAL | | | POC | performed at [facility];888 | | LAB | | | | [address];[place] | | | | | | [address] | | | | + + + + + + | MCV | 84.7Comment: Testing | 80.0 - 100.0 fl | EXTERNAL | | | | performed at [facility];888 | | LAB | | | | [address];[place] | | | | | | [address] | | | | + + + + + + | MCH | 28.9Comment: Testing | 27.0 - 34.0 pg | EXTERNAL | | | | performed at [facility];888 | | LAB | | | | [address];[place] | | | | | | [address] | | | | + + + + + + | MCHC | 34.1Comment: Testing | 32.0 - 35.5 | EXTERNAL | | | | performed at [facility];888 | g/dL | LAB | | | | [address];[place] | | | | | | [address] | | | | + + + + + + | RDW-CV | 42.0Comment: Testing | 37 - 53 fl | EXTERNAL | | | | performed at [facility];888 | | LAB | | | | [address];[place] | | | | | | [address] | | | | + + + + + + | Platelet | 392Comment: Testing | 150 - 400 K/uL | EXTERNAL | | | Count | performed at [facility];888 | | LAB | | | Plasma | [address];[place] | | | | | | [address] | | | | + + + + + + | MPV | 7.0Comment: Testing | fl | EXTERNAL | | | | performed at [facility];[address] | | LAB | | | | [address];[place] | | | | | | [address] | | | | + + + + + + | Differentia | MANUALComment: Testing | | EXTERNAL | | | l Type | performed at [facility];888 | | LAB | | | | [address];[place] | | | | | | [address] | | | | + + + + + + | Segmented | 69Comment: Testing | % | EXTERNAL | | | Neutrophils | performed at [facility];888 | | LAB | | | Manual | [address];[place] | | | | | | [address] | | | | + + + + + + | Lymphocytes | 21Comment: Testing | % | EXTERNAL | | | Manual | performed at [facility];[address] | | LAB | | | | [address];[place] | | | | | | [address] | | | | + + + + + + | Monocytes | 4Comment: Testing | % | EXTERNAL | | | Manual | performed at [facility];[address] | | LAB | | | | [address];[place] | | | | | | [address] | | | | + + + + + + | Eosinophils | 6Comment: Testing | % | EXTERNAL | | | Manual | performed at [facility];888 | | LAB | | | | [address];[place] | | | | | | [address] | | | | + + + + + + | Absolute | 5.08Comment: Testing | 1.90 - 7.40 | EXTERNAL | | | Neutrophils | performed at [facility];888 | K/uL | LAB | | | | [address];[place] | | | | | | [address] | | | | + + + + + + | Absolute | 1.55Comment: Testing | 1.00 - 3.90 | EXTERNAL | | | Lymphocytes | performed at [facility];888 | K/uL | LAB | | | | [address];[place] | | | | | | [address] | | | | + + + + + + | Absolute | 0.29Comment: Testing | 0.00 - 0.80 | EXTERNAL | | | Monocytes | performed at [facility];888 | K/uL | LAB | | | | [address];[place] | | | | | | [address] | | | | + + + + + + | Absolute | 0.44Comment: Testing | 0.00 - 0.50 | EXTERNAL | | | Eosinophils | performed at [facility];888 | K/uL | LAB | | | | [address];[place] | | | | | | [address] | | | | + + + + + + | RBC | NORMALComment: Testing | | EXTERNAL | | | Morphology | performed at [facility];888 | | LAB | | | | [address];[place] | | | | | | [address] | | | | + + + [...] EXTERNAL | | | | performed at [facility];888 | | LAB | | | | [address];[place] | | | | | | [address] | | | | + + + [...] | | | Fingerstick | performed at [facility];888 | | LAB | | | | [address];[place], [place] | | | | | | [address] | | | | + + + [...] | | | Fingerstick | performed at [facility];888 | | LAB | | | | [address];[place] | | | | | | [address] | | | | + + + [...] | | | Fingerstick | performed at [facility];888 | | LAB | | | | [address];[place] | | | | | | [address] | | | | + + + [...] | | | Fingerstick | performed at [facility];888 | | LAB | | | | [address];[place] | | | | | | [address] | | | | + + + [...] | | | Fingerstick | performed at [facility];888 | | LAB | | | | [address];[place], [place] | | | | | | [address] | | | | + + + [...] | | | Fingerstick | performed at [facility];[address] | | LAB | | | | [address];[place] | | | | | | [address] | | | | + + + [...] | | | Fingerstick | performed at [facility];[address] | | LAB | | | | [address];[place], [place] | | | | | | [address] | | | | + + + [...] | | | Fingerstick | performed at [facility];888 | | LAB | | | | [address];[place] | | | | | | [address] | | | | + + + [...] | EXTERNAL LAB | | performed at [facility];[address] [place] [address];[place] [address] TOXIN A | | | NEGATIVE Testing performed at | | | [facility];[address] [facility];[place] [address] C DIFF INTERPRETATION | | | Negative for toxigenic C.difficile. Testing performed at | | | [facility];[address] [place] [address];[place] [address] | | + + + + +---------+ [...] | | | Fingerstick | performed at [facility];[address] | | LAB | | | | [address];[place] | | | | | | [address] | | | | + + + [...] EXTERNAL | | | | performed at [facility], [address] | K/uL | LAB | | | | [address], | | | | | | [place] [address] | | | | + + + + + + | RED CELL | 3.92 (L)Comment: Testing | 4.20 - 5.70 | EXTERNAL | | | COUNT | performed at [facility], [address] | M/uL | LAB | | | | [address], | | | | | | [place] [address] | | | | + + + + + + | Hgb | 11.2 (L)Comment: Testing | 13.2 - 17.0 | EXTERNAL | | | | performed at [facility], [address] | g/dL | LAB | | | | [address], | | | | | | [place] [address] | | | | + + + + + + | Hematocrit, | 33.6 (L)Comment: Testing | 39.0 - 50.0 % | EXTERNAL | | | POC | performed at [facility], [address] | | LAB | | | | [address], | | | | | | [place] [address] | | | | + + + + + + | MCV | 85.9Comment: Testing | 80.0 - 100.0 fl | EXTERNAL | | | | performed at [facility], [address] | | LAB | | | | [address], | | | | | | [place] [address] | | | | + + + + + + | MCH | 28.7Comment: Testing | 27.0 - 34.0 pg | EXTERNAL | | | | performed at [facility], [address] | | LAB | | | | [address], | | | | | | [place] [address] | | | | + + + + + + | MCHC | 33.4Comment: Testing | 32.0 - 35.5 | EXTERNAL | | | | performed at [facility], [address] | g/dL | LAB | | | | [address], | | | | | | [place] [address] | | | | + + + + + + | RDW-CV | 41.1Comment: Testing | 37 - 53 fl | EXTERNAL | | | | performed at [facility], [address] | | LAB | | | | [address], | | | | | | [place] [address] | | | | + + + + + + | Platelet | 341Comment: Testing | 150 - 400 K/uL | EXTERNAL | | | Count | performed at [facility], [address] | | LAB | | | Plasma | [address], | | | | | | [place] [address] | | | | + + + + + + | MPV | 7.6Comment: Testing | fl | EXTERNAL | | | | performed at [facility], [address] | | LAB | | | | [address], | | | | | | [place] [address] | | | | + + + + + + | Differentia | AUTOMATEDComment: | | EXTERNAL | | | l Type | Testing performed at | | LAB | | | | [facility], [address] | | | | | | [place] | | | | | | [address] | | | | + + + + + + | % Segmented | 76.22Comment: Testing | % | EXTERNAL | | | | performed at [facility], [address] | | LAB | | | Neutrophils | [address] [address], | | | | | | [place] [address] | | | | + + + + + + | % | 12.04Comment: Testing | % | EXTERNAL | | | Lymphocytes | performed at [facility], [address] | | LAB | | | | [address], | | | | | | [place] [address] | | | | + + + + + + | % Monocytes | 6.15Comment: Testing | % | EXTERNAL | | | | performed at [facility], [address] | | LAB | | | | [address], | | | | | | [place] [address] | | | | + + + + + + | % | 4.73Comment: Testing | % | EXTERNAL | | | Eosinophils | performed at [facility], [address] | | LAB | | | | [address], | | | | | | [place] [address] | | | | + + + + + + | % Basophils | 0.86Comment: Testing | % | EXTERNAL | | | | performed at [facility], [address] | | LAB | | | | [address], | | | | | | [place] [address] | | | | + + + + + + | Absolute | 8.38 (H)Comment: Testing | 1.90 - 7.40 | EXTERNAL | | | Segmented | performed at [facility], [address] | [address] | LAB | | | Neutrophils | [address], | | | | | | [place] [address] | | | | + + + + + + | Absolute | 1.32Comment: Testing | 1.00 - 3.90 | EXTERNAL | | | Lymphocytes | performed at [facility], [address] | [address] | LAB | | | | [address], | | | | | | [place] [address] | | | | + + + + + + | Absolute | 0.68Comment: Testing | 0.00 - 0.80 | EXTERNAL | | | Monocytes | performed at [facility], [address] | K/uL | LAB | | | | [address], | | | | | | [place] [address] | | | | + + + + + + | Absolute | 0.52 (H)Comment: Testing | 0.00 - 0.50 | EXTERNAL | | | Eosinophils | performed at [facility], [address] | [address] | LAB | | | | [address], | | | | | | [place] [address] | | | | + + + + + + | Absolute | 0.10Comment: Testing | 0.00 - 0.10 | EXTERNAL | | | Basophils | performed at [facility], [address] | K[address]L | LAB | | | | [address], | | | | | | [place] [address] | | | | + + + [...] | | | | [place] [address] | | | | + + + + + + | K | 3.8Comment: Testing | 3.5 - 4.9 | EXTERNAL | | | | performed at [facility], [address] | mmol/L | LAB | | | | [address], | | | | | | [place] [address] | | | | + + + + + + | Cl | 105Comment: Testing | 99 - 109 mmol/L | EXTERNAL | | | | performed at [facility], [address] | | LAB | | | | [address], | | | | | | [place] [address] | | | | + + + + + + | CO2 | 25Comment: Testing | 23 - 32 mmol/L | EXTERNAL | | | | performed at [facility], [address] | | LAB | | | | [address], | | | | | | [place] [address] | | | | + + + + + + | Anion Gap | 12Comment: Testing | 5 - 20 mmol/L | EXTERNAL | | | | performed at [facility], [address] | | LAB | | | | [address], | | | | | | [place] [address] | | | | + + + + + + | Glucose, | 236 (H)Comment: Testing | 65 - 99 mg/dL | EXTERNAL | | | Fasting | performed at [facility], [address] | | LAB | | | | [address], | | | | | | [place] [address] | | | | + + + + + + | BUN | 6 (L)Comment: Testing | 8 - 25 mg/dL | EXTERNAL | | | | performed at [facility], [address] | | LAB | | | | [address], | | | | | | [place] [address] | | | | + + + + + + | Creatinine | 0.9Comment: Testing | 0.70 - 1.30 | EXTERNAL | | | | performed at [facility], [address] | mg/dL | LAB | | | | [address], | | | | | | [place] [address] | | | | + + + + + + | BUN/Creatin | 7Comment: Testing | | EXTERNAL | | | ine Ratio | performed at [facility], [address] | | LAB | | | | [address], | | | | | | [place] [address] | | | | + + + + + + | Calcium | 8.3 (L)Comment: Testing | 8.5 - 10.5 | EXTERNAL | | | | performed at [facility], [address] | mg/dL | LAB | | | | [address], | | | | | | [place] [address] | | | | + + + [...] Man, | | | | | | [place] [address] | | | | + + + [...] | | | Fingerstick | performed at [facility];88 | | LAB | | | | [address];[place] | | | | | | [address] | | | | + + + [...] | | | | | performed at [facility];[address] | | | | | | [address];[place] | | | | | | [address] | | | | + + + [...] | | | Fingerstick | performed at [facility];[address] | | LAB | | | | [address];[place], [place] | | | | | | [address] | | | | + + + [...] | | | Fingerstick | performed at [facility];[address] | | LAB | | | | [address];[place] | | | | | | [address] | | | | + + + [...] | | | Fingerstick | performed at [facility];[address] | | LAB | | | | [address];[place] | | | | | | [address] | | | | + + + [...] [place] | | | | | | [address] | | | | + + + + + + | RED CELL | 4.13 (L)Comment: Testing | 4.20 - 5.70 | EXTERNAL | | | COUNT | performed at [facility], [address] | M/uL | LAB | | | | [address], | | | | | | [place] [address] | | | | + + + + + + | Hgb | 11.7 (L)Comment: Testing | 13.2 - 17.0 | EXTERNAL | | | | performed at [facility], [address] | g/dL | LAB | | | | [address], | | | | | | [place] [address] | | | | + + + + + + | Hematocrit, | 34.8 (L)Comment: Testing | 39.0 - 50.0 % | EXTERNAL | | | POC | performed at [facility], [address] | | LAB | | | | [address], | | | | | | [place] [address] | | | | + + + + + + | MCV | 84.2Comment: Testing | 80.0 - 100.0 fl | EXTERNAL | | | | performed at [facility], [address] | | LAB | | | | [address], | | | | | | [place] [address] | | | | + + + + + + | MCH | 28.2Comment: Testing | 27.0 - 34.0 pg | EXTERNAL | | | | performed at [facility], [address] | | LAB | | | | [address], | | | | | | [place] [address] | | | | + + + + + + | MCHC | 33.5Comment: Testing | 32.0 - 35.5 | EXTERNAL | | | | performed at [facility], [address] | g/dL | LAB | | | | [address], | | | | | | [place] [address] | | | | + + + + + + | RDW-CV | 42.0Comment: Testing | 37 - 53 fl | EXTERNAL | | | | performed at [facility], [address] | | LAB | | | | [address], | | | | | | [place] [address] | | | | + + + + + + | Platelet | 329Comment: Testing | 150 - 400 K/uL | EXTERNAL | | | Count | performed at [facility], [address] | | LAB | | | Plasma | [address], | | | | | | [place] [address] | | | | + + + + + + | MPV | 7.9Comment: Testing | fl | EXTERNAL | | | | performed at [facility], [address] | | LAB | | | | [address], | | | | | | [place] [address] | | | | + + + + + + | Differentia | AUTOMATEDComment: | | EXTERNAL | | | l Type | Testing performed at | | LAB | | | | [facility], [address] | | | | | | [place] | | | | | | [address] | | | | + + + + + + | % Segmented | 83.29Comment: Testing | % | EXTERNAL | | | | performed at [facility], [address] | | LAB | | | Neutrophils | [address], | | | | | | [place] [address] | | | | + + + + + + | % | 8.71Comment: Testing | % | EXTERNAL | | | Lymphocytes | performed at [facility], [address] | | LAB | | | | [address], | | | | | | [place] [address] | | | | + + + + + + | % Monocytes | 5.08Comment: Testing | % | EXTERNAL | | | | performed at [facility], [address] | | LAB | | | | [address], | | | | | | [place] [address] | | | | + + + + + + | % | 2.32Comment: Testing | % | EXTERNAL | | | Eosinophils | performed at [facility], [address] | | LAB | | | | [address], | | | | | | [place] [address] | | | | + + + + + + | % Basophils | 0.60Comment: Testing | % | EXTERNAL | | | | performed at [facility], [address] | | LAB | | | | [address], | | | | | | [place] [address] | | | | + + + + + + | Absolute | 12.15 (H)Comment: | 1.90 - 7.40 | EXTERNAL | | | Segmented | Testing performed at | K/uL | LAB | | | Neutrophils | [facility], [address] | | | | | | [place] | | | | | | [address] | | | | + + + + + + | Absolute | 1.27Comment: Testing | 1.00 - 3.90 | EXTERNAL | | | Lymphocytes | performed at [facility], [address] | K/uL | LAB | | | | [address], | | | | | | [place] [address] | | | | + + + + + + | Absolute | 0.74Comment: Testing | 0.00 - 0.80 | EXTERNAL | | | Monocytes | performed at [facility], [address] | K/uL | LAB | | | | [address], | | | | | | [place] [address] | | | | + + + + + + | Absolute | 0.34Comment: Testing | 0.00 - 0.50 | EXTERNAL | | | Eosinophils | performed at [facility], [address] | K/uL | LAB | | | | [address], | | | | | | [place] [address] | | | | + + + + + + | Absolute | 0.09Comment: Testing | 0.00 - 0.10 | EXTERNAL | | | Basophils | performed at [facility], [address] | K/uL | LAB | | | | [address], | | | | | | [place] [address] | | | | + + + [...] | | | | [place] [address] | | | | + + + + + + | K | 3.8Comment: Testing | 3.5 - 4.9 | EXTERNAL | | | | performed at [facility], [address] | mmol/L | LAB | | | | [address], | | | | | | [place] [address] | | | | + + + + + + | Cl | 104Comment: Testing | 99 - 109 mmol/L | EXTERNAL | | | | performed at [facility], [address] | | LAB | | | | [address], | | | | | | [place] [address] | | | | + + + + + + | CO2 | 27Comment: Testing | 23 - 32 mmol/L | EXTERNAL | | | | performed at [facility], [address] | | LAB | | | | [address], | | | | | | [place] [address] | | | | + + + + + + | Anion Gap | 11Comment: Testing | 5 - 20 mmol/L | EXTERNAL | | | | performed at [facility], [address] | | LAB | | | | [address], | | | | | | [place] [address] | | | | + + + + + + | Glucose, | 196 (H)Comment: Testing | 65 - 99 mg/dL | EXTERNAL | | | Fasting | performed at [facility], [address] | | LAB | | | | [address], | | | | | | [place] [address] | | | | + + + + + + | BUN | 5 (L)Comment: Testing | 8 - 25 mg/dL | EXTERNAL | | | | performed at [facility], [address] | | LAB | | | | [address], | | | | | | [place] [address] | | | | + + + + + + | Creatinine | 0.9Comment: Testing | 0.70 - 1.30 | EXTERNAL | | | | performed at [facility], [address] | mg/dL | LAB | | | | [address], | | | | | | [place] [address] | | | | + + + + + + | BUN/Creatin | 6Comment: Testing | | EXTERNAL | | | ine Ratio | performed at [facility], [address] | | LAB | | | | [address], | | | | | | [place] [address] | | | | + + + + + + | Calcium | 8.4 (L)Comment: Testing | 8.5 - 10.5 | EXTERNAL | | | | performed at [facility], [address] | mg/dL | LAB | | | | [address], | | | | | | [place] [address] | | | | + + + [...] | | | | | | at [facility], [address] | | | | | | [address], | | | | | | [place] [address] | | | | + + + [...] | | | Fingerstick | performed at [facility];[address] | | LAB | | | | [address];[place] | | | | | | [address] | | | | + + + [...] | | | Fingerstick | performed at [facility];8 | | LAB | | | | [address];[place] | | | | | | [address] | | | | + + + [...] | | | | | performed at [facility] | | | | | | [facility];[place], [place] | | | | | | [address] | | | | + + + [...] | | | Fingerstick | performed at [facility];[address] | | LAB | | | | [address];[place] | | | | | | [address] | | | | + + + [...] | | | Fingerstick | performed at [facility];[address] | | LAB | | | | [address];[place], [place] | | | | | | [address] | | | | + + + [...] | | | | [facility], [address] [facility] | | | | | | [place] | | | | | | [address] | | | | + + + + + + | RED CELL | 4.31Comment: Testing | 4.20 - 5.70 | EXTERNAL | | | COUNT | performed at [facility], [address] | M/uL | LAB | | | | [address], | | | | | | [place] [address] | | | | + + + + + + | Hgb | 12.3 (L)Comment: Testing | 13.2 - 17.0 | EXTERNAL | | | | performed at [facility], [address] | g/dL | LAB | | | | [address], | | | | | | [place] [address] | | | | + + + + + + | Hematocrit, | 36.4 (L)Comment: Testing | 39.0 - 50.0 % | EXTERNAL | | | POC | performed at [facility], [address] | | LAB | | | | [address], | | | | | | [place] [address] | | | | + + + + + + | MCV | 84.5Comment: Testing | 80.0 - 100.0 fl | EXTERNAL | | | | performed at [facility], [address] | | LAB | | | | [address], | | | | | | [place] [address] | | | | + + + + + + | MCH | 28.5Comment: Testing | 27.0 - 34.0 pg | EXTERNAL | | | | performed at [facility], [address] | | LAB | | | | [address], | | | | | | [place] [address] | | | | + + + + + + | MCHC | 33.8Comment: Testing | 32.0 - 35.5 | EXTERNAL | | | | performed at [facility], [address] | g/dL | LAB | | | | [address], | | | | | | [place] [address] | | | | + + + + + + | RDW-CV | 42.9Comment: Testing | 37 - 53 fl | EXTERNAL | | | | performed at [facility], [address] | | LAB | | | | [address], | | | | | | [place] [address] | | | | + + + + + + | Platelet | 307Comment: Testing | 150 - 400 K/uL | EXTERNAL | | | Count | performed at [facility], [address] | | LAB | | | Plasma | [address], | | | | | | [place] [address] | | | | + + + + + + | MPV | 8.0Comment: Testing | fl | EXTERNAL | | | | performed at [facility], [address] | | LAB | | | | [address], | | | | | | [place] [address] | | | | + + + + + + | Differentia | AUTOMATEDComment: | | EXTERNAL | | | l Type | Testing performed at | | LAB | | | | [facility], [address] | | | | | | [place] | | | | | | [address] | | | | + + + + + + | % Segmented | 85.00Comment: Testing | % | EXTERNAL | | | | performed at [facility], [address] | | LAB | | | Neutrophils | [address], | | | | | | [place] [address] | | | | + + + + + + | % | 7.15Comment: Testing | % | EXTERNAL | | | Lymphocytes | performed at [facility], [address] | | LAB | | | | [address], | | | | | | [place] [address] | | | | + + + + + + | % Monocytes | 5.39Comment: Testing | % | EXTERNAL | | | | performed at [facility], [address] | | LAB | | | | [address], | | | | | | [place] [address] | | | | + + + + + + | % | 1.86Comment: Testing | % | EXTERNAL | | | Eosinophils | performed at [facility], [address] | | LAB | | | | [address], | | | | | | [place] [address] | | | | + + + + + + | % Basophils | 0.60Comment: Testing | % | EXTERNAL | | | | performed at [facility], [address] | | LAB | | | | [address], | | | | | | [place] [address] | | | | + + + + + + | Absolute | 13.51 (H)Comment: | 1.90 - 7.40 | EXTERNAL | | | Segmented | Testing performed at | K/uL | LAB | | | Neutrophils | [facility], [address] | | | | | | [place] | | | | | | [address] | | | | + + + + + + | Absolute | 1.14Comment: Testing | 1.00 - 3.90 | EXTERNAL | | | Lymphocytes | performed at [facility], [address] | K/uL | LAB | | | | [address], | | | | | | [place] [address] | | | | + + + + + + | Absolute | 0.86 (H)Comment: Testing | 0.00 - 0.80 | EXTERNAL | | | Monocytes | performed at [facility], [address] | K/uL | LAB | | | | [address], | | | | | | [place] [address] | | | | + + + + + + | Absolute | 0.30Comment: Testing | 0.00 - 0.50 | EXTERNAL | | | Eosinophils | performed at [facility], [address] | K/uL | LAB | | | | [address], | | | | | | [place] [address] | | | | + + + + + + | Absolute | 0.10Comment: Testing | 0.00 - 0.10 | EXTERNAL | | | Basophils | performed at [facility], [address] | K/uL | LAB | | | | [address], | | | | | | [place] [address] | | | | + + + [...] EXTERNAL | | | | performed at [facility], [address] | mmol/L | LAB | | | | [address], | | | | | | [place] [address] | | | | + + + + + + | K | 4.0Comment: Testing | 3.5 - 4.9 | EXTERNAL | | | | performed at [facility], [address] | mmol/L | LAB | | | | [address], | | | | | | [place] [address] | | | | + + + + + + | Cl | 103Comment: Testing | 99 - 109 mmol/L | EXTERNAL | | | | performed at [facility], [address] | | LAB | | | | [address], | | | | | | [place] [address] | | | | + + + + + + | CO2 | 24Comment: Testing | 23 - 32 mmol/L | EXTERNAL | | | | performed at [facility], [address] | | LAB | | | | [address], | | | | | | [place] [address] | | | | + + + + + + | Anion Gap | 14Comment: Testing | 5 - 20 mmol/L | EXTERNAL | | | | performed at [facility], [address] | | LAB | | | | [address], | | | | | | [place] [address] | | | | + + + + + + | Glucose, | 207 (H)Comment: Testing | 65 - 99 mg/dL | EXTERNAL | | | Fasting | performed at [facility], [address] | | LAB | | | | [address], | | | | | | [place] [address] | | | | + + + + + + | BUN | 7 (L)Comment: Testing | 8 - 25 mg/dL | EXTERNAL | | | | performed at [facility], [address] | | LAB | | | | [address], | | | | | | [place] [address] | | | | + + + + + + | Creatinine | 0.9Comment: Testing | 0.70 - 1.30 | EXTERNAL | | | | performed at [facility], [address] | mg/dL | LAB | | | | [address], | | | | | | [place] [address] | | | | + + + + + + | BUN/Creatin | 8Comment: Testing | | EXTERNAL | | | ine Ratio | performed at [facility], [address] | | LAB | | | | [address], | | | | | | [place] [address] | | | | + + + + + + | Calcium | 8.2 (L)Comment: Testing | 8.5 - 10.5 | EXTERNAL | | | | performed at [facility], [address] | mg/dL | LAB | | | | [address], | | | | | | [place] [address] | | | | + + + [...] W | | | | | | [address], | | | | | | [place] [address] | | | | + + + [...] | | | Fingerstick | performed at [facility];[address] | | LAB | | | | [address];[place], [place] | | | | | | [address] | | | | + + + [...] with a red-brown discoloration of the bone. [employer] | | | sections are submitted in cassette B1 and placed into decal prior to | | | processing. [facility] MICROSCOPIC EXAMINATION: A-B. Histologic | | | sections of all submitted blocks are examined by light microscopy. | | | These findings, together with the gross examination, support the | | | pathologic diagnosis. PERFORMING LABORATORY: Professional | | | interpretation and technical preparation was performed by [facility] | | | [facility], [address], | | | [place] [address] (Delivery Architect: Rafat Lorenzo M.D.; [facility]#: | | | [id number]). Diagnostician: Isi Gore MD Pathologist | | [...] | | | Fingerstick | performed at [facility];[address] | | LAB | | | | [address];[place] | | | | | | [address] | | | | + + + [...] | | | Fingerstick | performed at [facility];[address] | | LAB | | | | [address];[place], [place] | | | | | | [address] | | | | + + + [...] | | | Fingerstick | performed at [facility];[address] | | LAB | | | | [address];[place] | | | | | | [address] | | | | + + + [...] EXTERNAL | | | | performed at [facility];[address] | | LAB | | | | [address];[place] | | | | | | [address] | | | | + + + + + + | PCO2 ART | 32 (L)Comment: Testing | 35 - 45 mmHg | EXTERNAL | | | | performed at [facility];[address] | | LAB | | | | [address];[place] | | | | | | [address] | | | | + + + + + + | PO2 ART | 81Comment: Testing | 80 - 105 mmHg | EXTERNAL | | | | performed at [facility];[address] | | LAB | | | | [address];[place] | | | | | | [address] | | | | + + + + + + | Lactate, | <0.30 (L)Comment: | 0.36 - 1.25 | EXTERNAL | | | Arterial | Testing performed at | mmol/L | LAB | | | | [address] | | | | [address];[place] [address] | | | | + + + + + + | HCO3 ART | 19 (L)Comment: Testing | 22 - 26 mmol/L | EXTERNAL | | | | performed at [facility];[address] | | LAB | | | | [address];[place] | | | | | | [address] | | | | + + + + + + | POC | 20 (L)Comment: Testing | 23 - 27 mEq/L | EXTERNAL | | | APPEARANCE | performed at [facility];[address] | | LAB | | | UA | [address];[place] | | | | | | [address] | | | | + + + + + + | Base | 6 (H)Comment: Testing | 0.0 - 2.0 | EXTERNAL | | | deficit | performed at [facility];[address] | mmol/L | LAB | | | | [address];[place] | | | | | | [address] | | | | + + + + + + | O2 SAT ART | 96Comment: Testing | 95 - 98 % | EXTERNAL | | | | performed at [facility];[address] | | LAB | | | | [address];[place] | | | | | | [address] | | | | + + + + + + | FiO2, POC | 21Comment: Testing | % | EXTERNAL | | | | performed at [facility];[address] | | LAB | | | | [address];[place] | | | | | | [address] | | | | + + + [...] EXTERNAL | | | | performed at [facility];888 | mmol/L | LAB | | | | [address];[place], [place] | | | | | | [address] | | | | + + + [...] | | | Fingerstick | performed at [facility];8 | | LAB | | | | [address];[place], [place] | | | | | | [address] | | | | + + + [...] EXTERNAL | | | | performed at [facility], [address] | | LAB | | | | [address], | | | | | | [place] [address] | | | | + + + + + + | Clarity | CLEARComment: Testing | | EXTERNAL | | | | performed at [facility], [address] | | LAB | | | | [address], | | | | | | [place] [address] | | | | + + + + + + | Specific | 1.022Comment: Testing | 1.002 - 1.030 | EXTERNAL | | | Holly | performed at [facility], [address] | | LAB | | | | [address], | | | | | | [place] [address] | | | | + + + + + + | Leukocyte | NEGATIVEComment: | | EXTERNAL | | | Esterase, | Testing performed at | | LAB | | | Urine | [facility], [address] | | | | | | [place] | | | | | | [address] | | | | + + + + + + | Nitrite, | NEGATIVEComment: Testing | | EXTERNAL | | | Urine | performed at [facility], [address] | | LAB | | | | [address], | | | | | | [place] [address] | | | | + + + + + + | Urobilinoge | NORMALComment: Testing | mg/dL | EXTERNAL | | | n, Urine | performed at [facility], [address] | | LAB | | | | [address], | | | | | | [place] [address] | | | | + + + + + + | Protein, | NEGATIVEComment: Testing | mg/dL | EXTERNAL | | | Urine | performed at [facility], [address] | | LAB | | | | [address], | | | | | | [place] [address] | | | | + + + + + + | pH, Urine | 6.0Comment: Testing | 5.0 - 8.0 | EXTERNAL | | | | performed at [facility], [address] | | LAB | | | | [address], | | | | | | [place] [address] | | | | + + + + + + | Blood, | NEGATIVEComment: Testing | | EXTERNAL | | | Urine | performed at [facility], [address] | | LAB | | | | [address], | | | | | | [place] [address] | | | | + + + + + + | Ketones | NEGATIVEComment: Testing | mg/dL | EXTERNAL | | | | performed at [facility], [address] | | LAB | | | | [address], | | | | | | [place] [address] | | | | + + + + + + | Bilirubin, | NEGATIVEComment: Testing | | EXTERNAL | | | Urine | performed at [facility], [address] | | LAB | | | | [address], | | | | | | [place] [address] | | | | + + + + + + | Glucose, | >500 (A)Comment: Testing | mg/dL | EXTERNAL | | | Urine | performed at [facility], [address] | | LAB | | | | [address], | | | | | | [place] [address] | | | | + + + [...] | | LAB | | | | [facility];[address] | | [address];[place] [address] | | | | + + + + + + | PCO2 ART | 56 (H)Comment: Testing | 35 - 45 mmHg | EXTERNAL | | | | performed at [facility];[address] | | LAB | | | | [address];[place] | | | | | | [address] | | | | + + + + + + | PO2 ART | 74 (L)Comment: Testing | 80 - 105 mmHg | EXTERNAL | | | | performed at [facility];[address] | | LAB | | | | [address];[place] | | | | | | [address] | | | | + + + + + + | Lactate, | 7.11 (H)Comment: Testing | 0.36 - 1.25 | EXTERNAL | | | Arterial | performed at [facility];[address] | mmol/L | LAB | | | | [address];[place] | | | | | | [address] | | | | + + + + + + | HCO3 ART | 9 (L)Comment: Testing | 22 - 26 mmol/L | EXTERNAL | | | | performed at [facility];[address] | | LAB | | | | [address];[place] | | | | | | [address] | | | | + + + + + + | POC | 11 (L)Comment: Testing | 23 - 27 mEq/L | EXTERNAL | | | APPEARANCE | performed at [facility];[address] | | LAB | | | [address]A | [address];[place] | | | | | | [address] | | | | + + + + + + | Base | 25 (H)Comment: Testing | 0.0 - 2.0 | EXTERNAL | | | deficit | performed at [facility];[address] | mmol/L | LAB | | | | [address];[place] | | | | | | [address] | | | | + + + + + + | O2 SAT ART | 77 (L)Comment: Testing | 95 - 98 % | EXTERNAL | | | | performed at [facility];[address] | | LAB | | | | [address];[place] | | | | | | [address] | | | | + + + + + + | FiO2, POC | 100Comment: Testing | % | EXTERNAL | | | | performed at [facility];[address] | | LAB | | | | [address];[place] | | | | | | [address] | | | | + + + [...] [place] | | | | | | [address] | | | | + + + + + + | RED CELL | 4.04 (L)Comment: Testing | 4.20 - 5.70 | EXTERNAL | | | COUNT | performed at [facility], [address] | M/uL | LAB | | | | [address], | | | | | | [place] [address] | | | | + + + + + + | Hgb | 11.4 (L)Comment: Testing | 13.2 - 17.0 | EXTERNAL | | | | performed at [facility], [address] | g/dL | LAB | | | | [address], | | | | | | [place] [address] | | | | + + + + + + | Hematocrit, | 35.1 (L)Comment: Testing | 39.0 - 50.0 % | EXTERNAL | | | POC | performed at [facility], [address] | | LAB | | | | [address], | | | | | | [place] [address] | | | | + + + + + + | MCV | 86.7Comment: Testing | 80.0 - 100.0 fl | EXTERNAL | | | | performed at [facility], [address] | | LAB | | | | [address], | | | | | | [place] [address] | | | | + + + + + + | MCH | 28.2Comment: Testing | 27.0 - 34.0 pg | EXTERNAL | | | | performed at [facility], [address] | | LAB | | | [address], | | | | | | [place] [address] | | | | + + + + + + | MCHC | 32.5Comment: Testing | 32.0 - 35.5 | EXTERNAL | | | | performed at [facility], [address] | g/dL | LAB | | | | [address], | | | | | | [place] [address] | | | | + + + + + + | RDW-CV | 42.0Comment: Testing | 37 - 53 fl | EXTERNAL | | | | performed at [facility], [address] | | LAB | | | | [address], | | | | | | [place] [address] | | | | + + + + + + | Platelet | 262Comment: Testing | 150 - 400 K/uL | EXTERNAL | | | Count | performed at [facility], [address] | | LAB | | | Plasma | [address], | | | | | | [place] [address] | | | | + + + + + + | MPV | 8.4Comment: Testing | fl | EXTERNAL | | | | performed at [facility], [address] | | LAB | | | | [address], | | | | | | [place] [address] | | | | + + + + + + | Differentia | AUTOMATEDComment: | | EXTERNAL | | | l Type | Testing performed at | | LAB | | | | [facility], [address] | | | | | | [place] | | | | | | [address] | | | | + + + + + + | % Segmented | 82.60Comment: Testing | % | EXTERNAL | | | | performed at [facility], [address] | | LAB | | | Neutrophils | [address], | | | | | | [place] [address] | | | | + + + + + + | % | 7.47Comment: Testing | % | EXTERNAL | | | Lymphocytes | performed at [facility], [address] | | LAB | | | | [address], | | | | | | [place] [address] | | | | + + + + + + | % Monocytes | 6.29Comment: Testing | % | EXTERNAL | | | | performed at [facility], [address] | | LAB | | | | [address], | | | | | | [place] [address] | | | | + + + + + + | % | 3.29Comment: Testing | % | EXTERNAL | | | Eosinophils | performed at [facility], [address] | | LAB | | | | [address], | | | | | | [place] [address] | | | | + + + + + + | % Basophils | 0.35Comment: Testing | % | EXTERNAL | | | | performed at [facility], [address] | | LAB | | | | [address], | | | | | | [place] [address] | | | | + + + + + + | Absolute | 13.94 (H)Comment: | 1.90 - 7.40 | EXTERNAL | | | Segmented | Testing performed at | K/uL | LAB | | | Neutrophils | [facility], [address] | | | | | | [place] | | | | | | [address] | | | | + + + + + + | Absolute | 1.26Comment: Testing | 1.00 - 3.90 | EXTERNAL | | | Lymphocytes | performed at [facility], [address] | K/uL | LAB | | | | [address], | | | | | | [place] [address] | | | | + + + + + + | Absolute | 1.06 (H)Comment: Testing | 0.00 - 0.80 | EXTERNAL | | | Monocytes | performed at [facility], [address] | K/uL | LAB | | | | [address], | | | | | | [place] [address] | | | | + + + + + + | Absolute | 0.56 (H)Comment: Testing | 0.00 - 0.50 | EXTERNAL | | | Eosinophils | performed at [facility], [address] | K/uL | LAB | | | | [address], | | | | | | [place] [address] | | | | + + + + + + | Absolute | 0.06Comment: Testing | 0.00 - 0.10 | EXTERNAL | | | Basophils | performed at [facility], [address] | K/uL | LAB | | | | [address], | | | | | | [place] [address] | | | | + + + [...] EXTERNAL | | | | performed at [facility], [address] | | LAB | | | | [address], | | | | | | [place] [address] | | | | + + + [...] EXTERNAL | | | | performed at [facility], [address] | | LAB | | | | [address], | | | | | | [place] [address] | | | | + + + [...] | EXTERNAL | | | A1c | [facility] | | LAB | | | [...] | | | | | performed at [facility], [address] | | | | | | [address] [facility], | | | | | | [place] [address] | | | | + + + [...] | | | | | performed at [facility], [address] | | | | | | [facility], | | | | | | [place] [address] | | | | + + + [...] | | | | [place] [address] | | | | + + + + + + | K | 4.6Comment: Testing | 3.5 - 4.9 | EXTERNAL | | | | performed at [facility], [address] | mmol/L | LAB | | | | [address], | | | | | | [place] [address] | | | | + + + + + + | Cl | 103Comment: Testing | 99 - 109 mmol/L | EXTERNAL | | | | performed at [facility], [address] | | LAB | | | | [address], | | | | | | [place] [address] | | | | + + + + + + | CO2 | 22 (L)Comment: Testing | 23 - 32 mmol/L | EXTERNAL | | | | performed at [facility], [address] | | LAB | | | | [address], | | | | | | [place] [address] | | | | + + + + + + | Anion Gap | 14Comment: Testing | 5 - 20 mmol/L | EXTERNAL | | | | performed at [facility], [address] | | LAB | | | | [address], | | | | | | [place] [address] | | | | + + + + + + | Glucose, | 392 (H)Comment: Testing | 65 - 99 mg/dL | EXTERNAL | | | Fasting | performed at [facility], [address] | | LAB | | | | [address], | | | | | | [place] [address] | | | | + + + + + + | BUN | 12Comment: Testing | 8 - 25 mg/dL | EXTERNAL | | | | performed at [facility], [address] | | LAB | | | | [address], | | | | | | [place] [address] | | | | + + + + + + | Creatinine | 1.0Comment: Testing | 0.70 - 1.30 | EXTERNAL | | | | performed at [facility], [address] | mg/dL | LAB | | | | [address], | | | | | | [place] [address] | | | | + + + + + + | BUN/Creatin | 12Comment: Testing | | EXTERNAL | | | ine Ratio | performed at [facility], [address] | | LAB | | | | [address], | | | | | | [place] [address] | | | | + + + + + + | Calcium | 7.6 (L)Comment: Testing | 8.5 - 10.5 | EXTERNAL | | | | performed at [facility], [address] | mg/dL | LAB | | | | [address], | | | | | | [place] [address] | | | | + + + + + + | Protein, | 6.4Comment: Testing | 6.3 - 8.2 g/dL | EXTERNAL | | | Total | performed at [facility], [address] | | LAB | | | | [address], | | | | | | [place] [address] | | | | + + + + + + | Albumin | 2.2 (L)Comment: Testing | 3.6 - 5.0 g/dL | EXTERNAL | | | | performed at [facility], [address] | | LAB | | | | [address], | | | | | | [place] [address] | | | | + + + + + + | Globulin | 4.2Comment: Testing | 1.3 - 4.9 g/dL | EXTERNAL | | | | performed at [facility], [address] | | LAB | | | | [address], | | | | | | [place] [address] | | | | + + + + + + | A/G Ratio | 0.5 (L)Comment: Testing | 1.0 - 2.4 | EXTERNAL | | | | performed at [facility], [address] | | LAB | | | | [address], | | | | | | [place] [address] | | | | + + + + + + | Bilirubin | 0.6Comment: Testing | 0.1 - 1.5 mg/dL | EXTERNAL | | | Total | performed at [facility], [address] | | LAB | | | | [address], | | | | | | [place] [address] | | | | + + + + + + | ALP, | 182 (H)Comment: Testing | 35 - 115 U/L | EXTERNAL | | | External | performed at [facility], [address] | | LAB | | | | [address], | | | | | | [place] [address] | | | | + + + + + + | AST | 9 (L)Comment: Testing | 10 - 45 U/L | EXTERNAL | | | | performed at [facility], [address] | | LAB | | | | [address], | | | | | | [place] [address] | | | | + + + + + + | ALT | 16Comment: Testing | 10 - 65 U/L | EXTERNAL | | | | performed at [facility], [address] | | LAB | | | | [address], | | | | | | [place] [address] | | | | + + + [...] | | | | | | at [facility], [address] | | | | | | [address], | | | | | | [place] [address] | | | | + + + [...] | | | Fingerstick | performed at [facility];[address] | | LAB | | | | [address];[place], [place] | | | | | | [address] | | | | + + + [...] EXTERNAL LAB | | Testing performed at [facility];[address] [place] [address];[place] [address] MRSA PCR | | | POSITIVE for MRSA by PCRAbnormal | | | Testing performed at [address];[place] [address] | | + + + + +---------+ [...] | | | Fingerstick | performed at [facility];[address] | | LAB | | | | [address];[place] | | | | | | [address] | | | | + + + [...] EXTERNAL | | | | performed at [facility];[address] | mmol/L | LAB | | | | [address];[place] | | | | | | [address] | | | | + + + + + + | K | 4.0Comment: Testing | 3.5 - 4.9 | EXTERNAL | | | | performed at [facility];[address] | mmol/L | LAB | | | | [address];[place] | | | | | | [address] | | | | + + + + + + | Cl | 104Comment: Testing | 99 - 109 mmol/L | EXTERNAL | | | | performed at [facility];[address] | | LAB | | | | [address];[place] | | | | | | [address] | | | | + + + + + + | CO2 | 21 (L)Comment: Testing | 23 - 32 mmol/L | EXTERNAL | | | | performed at [facility];[address] | | LAB | | | | [address];[place] | | | | | | [address] | | | | + + + + + + | Anion Gap | 13Comment: Testing | 5 - 20 mmol/L | EXTERNAL | | | | performed at [facility];[address] | | LAB | | | | [address];[place] | | | | | | [address] | | | | + + + + + + | Glucose, | 254 (H)Comment: Testing | 65 - 99 mg/dL | EXTERNAL | | | Fasting | performed at [facility];[address] | | LAB | | | | [address];[place] | | | | | | [address] | | | | + + + + + + | BUN | 12Comment: Testing | 8 - 25 mg/dL | EXTERNAL | | | | performed at [facility];[address] | | LAB | | | | [address];[place] | | | | | | [address] | | | | + + + + + + | Creatinine | 0.95Comment: Testing | 0.70 - 1.30 | EXTERNAL | | | | performed at [facility];[address] | mg/dL | LAB | | | | [address];[place] | | | | | | [address] | | | | + + + + + + | BUN/Creatin | 13Comment: Testing | | EXTERNAL | | | ine Ratio | performed at [facility];[address] | | LAB | | | | [address];[place] | | | | | | [address] | | | | + + + + + + | Calcium | 6.9 (L)Comment: Testing | 8.5 - 10.5 | EXTERNAL | | | | performed at [facility];[address] | mg/dL | LAB | | | | [address];[place] | | | | | | [address] | | | | + + + + + + | Protein, | 6.3Comment: Testing | 6.3 - 8.2 g/dL | EXTERNAL | | | Total | performed at [facility];[address] | | LAB | | | | [address];[place] | | | | | | [address] | | | | + + + + + + | Albumin | 2.1 (L)Comment: Testing | 3.6 - 5.0 g/dL | EXTERNAL | | | | performed at [facility];[address] | | LAB | | | | [address];[place] | | | | | | [address] | | | | + + + + + + | Globulin | 4.2Comment: Testing | 1.3 - 4.9 g/dL | EXTERNAL | | | | performed at [facility];[address] | | LAB | | | | [address];[place] | | | | | | [address] | | | | + + + + + + | A/G Ratio | 0.5 (L)Comment: Testing | 1.0 - 2.4 | EXTERNAL | | | | performed at [facility];[address] | | LAB | | | | [address];[place] | | | | | | [address] | | | | + + + + + + | Bilirubin | 0.4Comment: Testing | 0.1 - 1.5 mg/dL | EXTERNAL | | | Total | performed at [facility];[address] | | LAB | | | | [address];[place] | | | | | | [address] | | | | + + + + + + | ALP, | 181 (H)Comment: Testing | 35 - 115 U/L | EXTERNAL | | | External | performed at [facility];[address] | | LAB | | | | [address];[place] | | | | | | [address] | | | | + + + + + + | AST | 10Comment: Testing | 10 - 45 U/L | EXTERNAL | | | | performed at [facility];[address] | | LAB | | | | [address];[place] | | | | | | [address] | | | | + + + + + + | ALT | 14Comment: Testing | 10 - 65 U/L | EXTERNAL | | | | performed at [facility];[address] | | LAB | | | | [address];[place] | | | | | | [address] | | | | + + + [...] | | | | | | at [facility];[address];[place] [address] | | | | + + + [...] 9:30AM Referring Provider Line: | | | [phone] ID: [id number] | | + + + [...] | | 2016 9:30AM Referring Provider Line: [phone] ID: [id number] | + + POC Glucose (12/14/2016 11:34 PM PDT) + + + + + + | Component | Value | Ref Range | Performed | Pathologist | | | | | At | Signature | + + + + + + | Glucose, | 172 (H)Comment: Testing | 65 - 99 mg/dL | EXTERNAL | | | Fingerstick | performed at [facility];[address] | | LAB | | | | [address];[place], [place] | | | | | | [address] | | | | + + + [...] EXTERNAL | | | | performed at [facility];[address] | mmol/L | LAB | | | | [address];[place], [place] | | | | | | [address] | | | | + + + [...] | | | Blood | performed at [facility];[address] | | LAB | | | | [address];[place], [place] | | | | | | [address] | | | | + + + [...] EXTERNAL | | | | performed at [facility] | | LAB | | | | [address];[place] | | | | | | [address] | | | | + + + [...] K/uL | LAB | | | | [facility];[address];[place] [address] | | | | + + + + + + | RED CELL | 4.20Comment: Testing | 4.20 - 5.70 | EXTERNAL | | | COUNT | performed at [facility];[address] | M/uL | LAB | | | | [address];[place] | | | | | | [address] | | | | + + + + + + | Hgb | 12.4 (L)Comment: Testing | 13.2 - 17.0 | EXTERNAL | | | | performed at [facility];888 | g/dL | LAB | | | | [address];[place] | | | | | | [address] | | | | + + + + + + | Hematocrit, | 36.3 (L)Comment: Testing | 39.0 - 50.0 % | EXTERNAL | | | POC | performed at [facility];[address] | | LAB | | | | [address];[place] | | | | | | [address] | | | | + + + + + + | MCV | 86.5Comment: Testing | 80.0 - 100.0 fl | EXTERNAL | | | | performed at [facility];[address] | | LAB | | | | [address];[place] | | | | | | [address] | | | | + + + + + + | MCH | 29.4Comment: Testing | 27.0 - 34.0 pg | EXTERNAL | | | | performed at [facility];[address] | | LAB | | | | [address];[place] | | | | | | [address] | | | | + + + + + + | MCHC | 34.0Comment: Testing | 32.0 - 35.5 | EXTERNAL | | | | performed at [facility];888 | g/dL | LAB | | | | [address];[place] | | | | | | [address] | | | | + + + + + + | RDW-CV | 42.9Comment: Testing | 37 - 53 fl | EXTERNAL | | | | performed at [facility];[address] | | LAB | | | | [address];[place] | | | | | | [address] | | | | + + + + + + | Platelet | 258Comment: Testing | 150 - 400 K/uL | EXTERNAL | | | Count | performed at [facility];[address] | | LAB | | | Plasma | [address];[place] | | | | | | [address] | | | | + + + + + + | MPV | 8.3Comment: Testing | fl | EXTERNAL | | | | performed at [facility];[address] | | LAB | | | | [address];[place] | | | | | | [address] | | | | + + + + + + | Differentia | AUTOMATEDComment: | | EXTERNAL | | | l Type | Testing performed at | | LAB | | | | [facility];[address];[place] [address] | | | | + + + + + + | % Segmented | 87.43Comment: Testing | % | EXTERNAL | | | | performed at [facility];[address] | | LAB | | | Neutrophils | [address];[place] | | | | | | [address] | | | | + + + + + + | % | 5.56Comment: Testing | % | EXTERNAL | | | Lymphocytes | performed at [facility];[address] | | LAB | | | | [address];[place] | | | | | | [address] | | | | + + + + + + | % Monocytes | 4.36Comment: Testing | % | EXTERNAL | | | | performed at [facility];[address] | | LAB | | | | [address];[place] | | | | | | [address] | | | | + + + + + + | % | 1.84Comment: Testing | % | EXTERNAL | | | Eosinophils | performed at [facility];[address] | | LAB | | | | [address];[place] | | | | | | [address] | | | | + + + + + + | % Basophils | 0.81Comment: Testing | % | EXTERNAL | | | | performed at [facility];[address] | | LAB | | | | [address];[place] | | | | | | [address] | | | | + + + + + + | Absolute | 17.02 (H)Comment: | 1.90 - 7.40 | EXTERNAL | | | Segmented | Testing performed at | K/uL | LAB | | | Neutrophils | [facility];[address];[place] [address] | | | | + + + + + + | Absolute | 1.08Comment: Testing | 1.00 - 3.90 | EXTERNAL | | | Lymphocytes | performed at [facility];[address] | K/uL | LAB | | | | [address];[place] | | | | | | [address] | | | | + + + + + + | Absolute | 0.85 (H)Comment: Testing | 0.00 - 0.80 | EXTERNAL | | | Monocytes | performed at [facility];[address] | K/uL | LAB | | | | [address];[place] | | | | | | [address] | | | | + + + + + + | Absolute | 0.36Comment: Testing | 0.00 - 0.50 | EXTERNAL | | | Eosinophils | performed at [facility];[address] | K/uL | LAB | | | | [address];[place] | | | | | | [address] | | | | + + + + + + | Absolute | 0.16 (H)Comment: Testing | 0.00 - 0.10 | EXTERNAL | | | Basophils | performed at [facility];[address] | K/uL | LAB | | | | [address];[place] | | | | | | [address] | | | | + + + + + + | RBC | RBC AND PLT MORPHOLOGY | | EXTERNAL | | | Morphology | APPEAR NORMALComment: | | LAB | | | | Testing performed at | | | | | | [facility];[address];[place] [address] | | | | + + + + + + | Platelet | ADEQUATEComment: Testing | | EXTERNAL | | | Estimate | performed at [facility];[address] | | LAB | | | | [address];[place] | | | | | | [address] | | | | + + + + + + | Differentia | SLIDE SCANNED, AGREES | | EXTERNAL | | | l Comments | WITH AUTOMATED | | LAB | | | | RESULTS.Comment: Testing | | | | | | performed at [facility];[address] | | | | | | [address];[place], [place] | | | | | | [address] | | | | + + + [...] EXTERNAL | | | | performed at [facility] | | LAB | | | | [address];[place], [place] | | | | | | [address] | | | | + + + [...] EXTERNAL | | | | performed at [facility];[address] | mmol/L | LAB | | | | [address];[place] | | | | | | [address] | | | | + + + + + + | K | 5.1 (H)Comment: MODERATE | 3.5 - 4.9 | EXTERNAL | | | | HEMOLYSISTesting | mmol/L | LAB | | | | performed at [facility];[address] | | | | | | [address];[place] | | | | | | [address] | | | | + + + + + + | Cl | 93 (L)Comment: Testing | 99 - 109 mmol/L | EXTERNAL | | | | performed at [facility];[address] | | LAB | | | | [address];[place] | | | | | | [address] | | | | + + + + + + | CO2 | 23Comment: Testing | 23 - 32 mmol/L | EXTERNAL | | | | performed at [facility];[address] | | LAB | | | | [address];[place] | | | | | | [address] | | | | + + + + + + | Anion Gap | 14Comment: Testing | 5 - 20 mmol/L | EXTERNAL | | | | performed at [facility];[address] | | LAB | | | | [address];[place] | | | | | | [address] | | | | + + + + + + | Glucose, | 635 (HH)Comment: CALLED | 65 - 99 mg/dL | EXTERNAL | | | Fasting | DR LING COUCH | | LAB | | | | AT 2216 BY RHREAD BACK | | | | | | RESULTS VERIFIEDTesting | | | | | | performed at [facility];[address] | | | | | | [address];[place] | | | | | | [address] | | | | + + + + + + | BUN | 13Comment: Testing | 8 - 25 mg/dL | EXTERNAL | | | | performed at [facility];[address] | | LAB | | | | [address];[place] | | | | | | [address] | | | | + + + + + + | Creatinine | 1.4 (H)Comment: Testing | 0.70 - 1.30 | EXTERNAL | | | | performed at [facility];888 | mg/dL | LAB | | | | [address];[place] | | | | | | [address] | | | | + + + + + + | BUN/Creatin | 10Comment: Testing | | EXTERNAL | | | ine Ratio | performed at [facility];888 | | LAB | | | | [address];[place] | | | | | | [address] | | | | + + + + + + | Calcium | 7.9 (L)Comment: Testing | 8.5 - 10.5 | EXTERNAL | | | | performed at [facility];888 | mg/dL | LAB | | | | [address];[place] | | | | | | [address] | | | | + + + + + + | Protein, | 7.7Comment: Testing | 6.3 - 8.2 g/dL | EXTERNAL | | | Total | performed at [facility];888 | | LAB | | | | [address];[place] | | | | | | [address] | | | | + + + + + + | Albumin | 2.6 (L)Comment: Testing | 3.6 - 5.0 g/dL | EXTERNAL | | | | performed at [facility];[address] | | LAB | | | | [address];[place] | | | | | | [address] | | | | + + + + + + | Globulin | 5.1 (H)Comment: Testing | 1.3 - 4.9 g/dL | EXTERNAL | | | | performed at [facility];[address] | | LAB | | | | [address];[place] | | | | | | [address] | | | | + + + + + + | A/G Ratio | 0.5 (L)Comment: Testing | 1.0 - 2.4 | EXTERNAL | | | | performed at [facility];[address] | | LAB | | | | [address];[place] | | | | | | [address] | | | | + + + + + + | Bilirubin | 0.6Comment: Testing | 0.1 - 1.5 mg/dL | EXTERNAL | | | Total | performed at [facility];888 | | LAB | | | | [address];[place] | | | | | | [address] | | | | + + + + + + | ALP, | 259 (H)Comment: Testing | 35 - 115 U/L | EXTERNAL | | | External | performed at [facility];[address] | | LAB | | | | [address];[place] | | | | | | [address] | | | | + + + + + + | AST | 17Comment: MODERATE | 10 - 45 U/L | EXTERNAL | | | | HEMOLYSISTesting | | LAB | | | | performed at [facility];[address] | | | | | | [address];[place] | | | | | | [address] | | | | + + + + + + | ALT | 17Comment: Testing | 10 - 65 U/L | EXTERNAL | | | | performed at [facility];[address] | | LAB | | | | [address];[place] | | | | | | [address] | | | | + + + [...] | | | | | | at [facility];[address] [facility] | | | | | | [facility];[place] [address] | | | | + + + [...] type 2 diabetes mellitus with hyperglycemia, unspecified lobsterman | | insulin use status | + [...]
--- OUTSIDE RECORDS SUMMARY | ~2019-08-15 | XMS | Encounter Summary ---
Demographics + + + | Address | [address] | | | [place] [address] | + + + | Home Phone [...] + + + | Author | [facility] | | | and [place] | + + + | Organization | [facility] | | [...] Team Providers + +------+ + | Care Design Technology Professor Name | Role | Phone | + [...] + + | 09/22/ | Telephone | [facility] | Avi Forde MD | Other | | 2014 | | GASTROENTEROLOGY | [address] | | | | | [address] [facility] | [address] | | | | | [address] [place], [place] | [id number] | | | | | [address] | | | | | | [phone] | | | +--------+ + + + [...]
--- OUTSIDE RECORDS SUMMARY | ~2019-08-15 | XMS | Encounter Summary ---
Demographics + + + | Address | [address] | | | [place] [address] | + + + | Home Phone [...] Team Providers + +------+ + | Care Field Account Manager Name | Role | Phone | + +------+ + | Estrella Light PA-C | PCP | | + +------+ + Encounter Details +--------+ + + + + | Date | Type | Department | Care Team | Description | +--------+ + + + + | 01/13/ | Hospital | [facility] | Conversion | Diagnosis unknown | | 2018 | Encounter | CONVERSION DEP [address] | Transaction, | | | | | [place] | Provider Unknown | | | | | [place] | | | | | | [address] | (Fax) | | | | | [phone] | | | +--------+ + + + [...]
--- OUTSIDE RECORDS SUMMARY | ~2019-08-15 | XMS | Encounter Summary ---
Demographics + + + | Address | [address] | | | [place] [address] | + + + | Home Phone [...] Author + + + | Author | [facility] | | | and [place] | + + + | Organization | [facility] | | | and [...] Providers + +------+ + | Care Manager Professional Development Name | Role | Phone | + +------+ + | Estrella Light PA-C | PCP | | + +------+ + Encounter Details +--------+ + + + + | Date | Type | Department | Care Team | Description | +--------+ + + + + | 09/04/ | Abstract | [facility] | Avi Forde MD | | | 2014 | | GASTROENTEROLOGY | [address], [place] | | | | | [address] [place] | [address] [place] | | | | | [address] [place], [place] | [address] | | | | | [address] | | | | | | [phone] | | | +--------+ + + + [...]
--- OUTSIDE RECORDS SUMMARY | ~2019-08-15 | XMS | Encounter Summary ---
Demographics + + + | Address | [address] | | | [place] [address] | + + + | Home Phone | | + + + | Preferred Language | Unknown | + + + | Marital Status | Single | + + + | Episcopalian Affiliation | 1077 | + + + [...] Team Providers + +------+ + | Care Professor Of Literacy Name | Role | Phone | + +------+ + | Estrella Light PA-C | PCP | | + +------+ + Encounter Details +--------+ + + + + | Date | Type | Department | Care Team | Description | +--------+ + + + + | 01/13/ | Hospital | [facility] | Cameron Lopez | | | 2018 - | Encounter | [facility] | MD Antolin Hill | | | | | CLINICAL DECISION | [place], [place] | | | 01/14/ | | UNIT [facility] | [address] | | | 2017 | | [place], [place] | | | | | | [address] | | | | | | [phone] | | | +--------+ + + + [...] 01/14/181931 Date of Service: 01/14/18899 Status: Signed Patient Financial Specialist: Abhinav Winters DO (Physician) The patient is 52 y.o. 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 In the emergency department at [facility], EKG showed T inversions in lead [...] Date of Service: 04/15/18 0900 Status: Signed Patient Financial Specialist: Elizabeth Galvez, RN (Registered Nurse) Approached by [...] 01/13/181399 Date of Service: 01/13/181399 Status: Signed Patient Financial Specialist: Rosalba Luo RPH (Pharmacist) Clinical Pharmacy Note: [...] + + + | KULDIP Partida RED BadgeK XR CHEST 1 VIEW 01/14/2018 7:43 AM [...] | | | Basophils | performed at [facility], [address] | K/uL | LAB | | | | [address], | | | | | | [place] [address] | | | | + + + [...] | | | | [place] [address] | | | | + + + [...] EXTERNAL | | | | performed at [facility], [address] | | LAB | | | | Matt [address], | | | | | | [place] [address] | | | | + + + [...] | | | | [place] [address] | | | | + + + [...] | EXTERNAL | | | A1c | [place] Diabetes | | LAB | | | [...] | | | | | performed at [facility], [address] | | | | | | [facility], | | | | | | [place] [address] | | | | + + + [...] | | | Cholesterol | performed at [facility], [address] | | LAB | | | , | [address] [place], | | | | | Calculated, | [place] [address] | | | | | External | [...] Man, | | | | | | [place] [address] | | | | + + + [...] | | | Fingerstick | performed at [facility];[address] | | LAB | | | | [address];[place], [place] | | | | | | [address] | | | | + + + [...] EXTERNAL | | | | performed at [facility];[address] | | LAB | | | | [address];[place], [place] | | | | | | [address] | | | | + + + [...] | | | Fingerstick | performed at [facility];[address] | | LAB | | | | [address];[place] | | | | | | [address] | | | | + + + [...] | | | | | | ACUTE NV Testing | | | | | | performed at [facility] | | | | | | [facility];[place], [place] | | | | | | [address] | | | | + + + [...] EXTERNAL | | | | performed at [facility] | | LAB | | | | [address];[place], [place] | | | | | | [address] | | | | + + + [...] | | | Fingerstick | performed at [facility];[address] | | LAB | | | | [address];[place] | | | | | | [address] | | | | + + + [...] | | | Fingerstick | performed at [facility];[address] | | LAB | | | | [address];[place] | | | | | | [address] | | | | + + + [...] | | | | | | ACUTE NV Testing | | | | | | performed at [facility];[address] | | | | | | [address];[place], [place] | | | | | | [address] | | | | + + + [...] EXTERNAL | | | | performed at [facility];[address] | | LAB | | | | [address];[place], [place] | | | | | | [address] | | | | + + + [...] TV A Star: 0.46 m/s TV Dec [place]: 2.14 m/s2 TV Dec Time: | | | 223.61 ms TV E Star: 0.47 m/s TV E/A Ratio: 1.03 | | | Gi Technician: DIDI Authenticated by: Dereck Galicia Report | [...] (A-L): | | 16.36 ml/m2LAAs A2C: 13.19 [id number] A-L A2C: 34.91 mlLALs A2C: 4.23 cmLAAs A4C: | | 11.37 [id number] A-L A4C: 29.21 mlLALs A4C: 3.75 cmRAAd: 13.57 px2VPTCZ A-L: | | 35.22 mlRAEDV MOD: 30.46 mlRALd: 4.44 cmTAPSE: 1.67 cmHR: 82.18 BPMAV maxPG: | | 3.19 mmHgAV meanP.99 mmHgAV Vmax: 0.89 m/Simran Vmean: 0.69 m/Simran VTI: 18.16 | | cmAVA Vmax: 3.34 cm2AVA (VTI): 3.51 [id number] Vmax: 0.00 cm2/m2AVAI (VTI): 0.00 | | cm2/m2LVCI Dopp: 2.41 l/ywtk9PUBX Dopp: 5.00 l/minHR: 78.46 BPMLVOT maxP.34 | [...] 3 mmHgTV A Star: 0.46 m/sTV Dec [place]: 2.14 m/s2TV Dec Time: 223.61 | | msTV E Star: 0.47 m/sTV E/A Ratio: 1.03 Gi Technician: Nishaticated by: Dereck | | RominalaReport Date/Time: [...] A Star: 0.46 m/s | |TV Dec [place]: 2.14 m/s2 | |TV Dec Time: 223.61 ms | |TV E Star: 0.47 m/s | |TV E/A Ratio: 1.03 | | | |Gi Technician: GD | |Authenticated by: Dereck Galicia | [...] | | | Fingerstick | performed at [facility];[address] | | LAB | | | | [address];[place], [place] | | | | | | [address] | | | | + + + [...] | | | | | | ACUTE NV Testing | | | | | | performed at [facility];[address] | | | | | | [address];[place], [place] | | | | | | [address] | | | | + + + [...] | | | PCRAbnormal Testing performed at [facility];[address] [facility];[place] [address] | | + + + + +---------+ [...]
--- OUTSIDE RECORDS SUMMARY | ~2019-08-15 | XMS | Clinical Summary ---
Demographics + + + | Address | [address] [place] [address] RD | | | [place] [address] | + + + | Home Phone | | + + + | Preferred Language | Unknown | + + + | Marital Status | Single | + + + | Faith Affiliation | 1077 | + + + | Race | Unknown | + + + | Ethnic Group | Unknown | + + + Author + + + | Author | [facility] (Historical as of | | | 05-18-19) | + + + | Organization | [facility] (Historical as of | | | 05-18-19) [...] Team Providers + +------+ + | Care License Distributor Name | Role | Phone | + [...] limited to breakdown of skin ([facility]) | 01/13/2018 | + + + | Cellulitis and abscess of foot | 12/15/2016 | + + + | Osteomyelitis ([facility]) | 12/15/2016 | + + + | Essential hypertension | 03/04/2015 | + + + | Type 2 diabetes mellitus, with long-term current use of insulin | 03/04/2015 | | ([facility]) | | + + + Family History [...] +------+-------+ + | MEDICAID | EASTER | [id number] | | | [address] | | | N | | | | [place], [place] | | | [place] | | | | [address] | | | COMMUTATOR ASSEMBLER | | | | | + +--------+ +------+-------+ + | [facility] | YELLOW | [id number] | | | | | PLANS | [...] | Self | [birth year] | Home: | [address] | | | al/Fam | | 1965 | [address] | [place], [place] | | | vikas | | | [address] | [address] | + +--------+ +--------+ + + | [facility] | Third | Self | [birth year] | Home: | [address] | | | Democrat | | 1964 | [address] | [place], [place] | | | [place] | | | [address] | [address] | | | ity | | | | | + +--------+ +--------+ + +
--- OUTSIDE RECORDS SUMMARY | ~2019-08-15 | XMS | Encounter Summary ---
Demographics + + + | Address | [address] | | | [place] [address] | + + + | Home Phone | | + + + | Preferred Language | Unknown | + + + | Marital Status | Single | + + + | Confucianism Affiliation | 1077 | + + + | Race | Unknown | + + + | Ethnic Group | Unknown | + + + Author + + + | Author | [facility] | | | and [place] | + + + | Organization | [facility] | | [...] Team Providers + +------+ + | Care Discount Clerk Name | Role | Phone | + [...] + + | 09/22/ | Telephone | [facility] | Avi Forde MD | Other | | 2014 | | GASTROENTEROLOGY | [address] [place] | | | | | [address] [facility] | [address] [place] | | | | | [address] [place], [place] | [address] | | | | | [address] | | | | | | [phone] | | | +--------+ + + + [...]
--- OUTSIDE RECORDS SUMMARY | ~2019-08-15 | XMS | Encounter Summary ---
Demographics + + + | Address | [address] | | | [place] [address] | + + + | Home Phone [...] Team Providers + +------+ + | Care Patient Relations Coordinator Name | Role | Phone | [...] + + | 04/12/ | Telephone | [facility] | Avi Forde MD | Hosp No Show | | 2015 | | GASTROENTEROLOGY | [address], [place] | (egds,colon) | | | | [address] [place] | [address] [place] | | | | | [address] [place], [place] | [address] | | | | | [address] | | | | | | [phone] | | | +--------+ + + + [...]
--- OUTSIDE RECORDS SUMMARY | ~2019-08-15 | XMS | Encounter Summary ---
Demographics + + + | Address | [address] | | | [place] [address] | + + + | Home Phone | | + + + | Preferred Language | Unknown | + + + | Marital Status | Single | + + + | Druze Affiliation | 1077 | + + + | Race | Unknown | + + + | Ethnic Group | Unknown | + + + Author + + + | Author | [facility] | | | and [place] | + + + | Organization | [facility] | | | [...] Team Providers + +------+ + | Care Wide Area Network Engineer Name | Role | Phone | [...] diarrhea | [address] | [address], | | | | | IgG Gliadin | [address], [place] | [place] [address] | | | | | antibody | [address] [place] | [place], | | | | | positive | [place] | [place] [address] | | | | | Alcohol | [address] | Phone: | | | | | abuse | Phone: | [phone] | | | | | Procedures | [phone] | Fax: | | | | | [place] | Fax: | [phone] | | | | | COLONOSCOPY | [phone] | | | | | | FLX [...] 2014 | | GASTROENTEROLOGY | [address], [place] | (procedure ) | | | | [address] [place] | [address] [place], [place] | | | | | [address] [place], [place] | [address] | | | | | [address] | | | | | | [phone] | | | +--------+ + + + [...]
--- OUTSIDE RECORDS SUMMARY | ~2019-08-15 | XMS | Encounter Summary ---
Demographics + + + | Address | [address] | | | [place] [address] | + + + | Home Phone | | + + + | Preferred Language | Unknown | + + + | Marital Status | Single | + + + | Mosque Affiliation | 1077 | + + + [...] Team Providers + +------+ + | Care Area Field Manager Name | Role | Phone | [...] diarrhea | [address] | [address], | | | | | IgG Gliadin | [place], [place] | [place] [address] | | | | | antibody | [address] [place] | [place], | | | | | positive | [place] | [place] [address] | | | | | Alcohol | [address] | Phone: | | | | | abuse | Phone: | [phone] | | | | | Procedures | [phone] | Fax: | | | | | [place] | Fax: | [phone] | | | | | COLONOSCOPY | [phone] | | | | | | FLX DX | | | | | | | W/COLLJ SPEC | | | | | | | WHEN PFRMD | | | | | | | OR | | | | | | | COLONOSCOPY | | | | | | | W/BIOPSY | | | | | | | SINGLE/MULTI | | | | | | | PLE OR | | | | | | | COLSC FLX | | | | | | | W/RMVL OF | | | | | | | TUMOR POLYP | | | | | | | LESION SNARE | | | | | | | TQ OR | | | | | | | [...] 2014 | | GASTROENTEROLOGY | [address], [place] | (procedure ) | | | | [address] [place] | [address] [place], [place] | | | | | [address] [place], [place] | [address] | | | | | [address] | | | | | | [phone] | | | +--------+ + + + [...]
--- OUTSIDE RECORDS SUMMARY | ~2019-08-15 | XMS | Encounter Summary ---
Demographics + + + | Address | [address] | | | [place] [address] | + + + | Home Phone [...] + + + | Author | [facility] | | | and [place] | + + + | Organization | [facility] | | | [...] Providers + +------+ + | Care Machine Shop Specialist Name | Role | Phone | + +------+ + | Estrella Light PA-C | PCP | | + +------+ + Encounter Details +--------+---------+ + + + | Date | Type | Department | Care Team | Description | +--------+---------+ + + + | 04/12/ | Surgery | [facility] | Avi Forde MD | EGD / COLONOSCOPY - | | 2015 | | MED CTR [facility] INTRA OP | [address], [place] | DM (insulin) | | | | [address] | [address] [place] | | | | | [place] | [id number] | | | | | [address] | | | | | | [phone] | | | +--------+---------+ + + + [...]
--- OUTSIDE RECORDS SUMMARY | ~2019-08-15 | XMS | Encounter Summary ---
Demographics + + + | Address | [address] | | | [place] [address] | + + + | Home Phone [...] | Author | [facility] | | | and [place] | + + + | Organization | [facility] | | | and [...] Team Providers + +------+ + | Care Blood Bank Coordinator Name | Role | Phone | + +------+ + | Estrella Light PA-C | PCP | | + +------+ + Encounter Details +--------+ + + + + | Date | Type | Department | Care Team | Description | +--------+ + + + + | 12/14/ | Hospital | [facility] | [place], | Osteomyelitis of | | 2017 - | Encounter | [facility] | MD Pavel [address] | foot, left, acute | | | | CARE FLOOR [address] | [address] | ([facility]); Uncontrolled | | 12/20/ | | [address] | [place] [address] | type 2 diabetes | | 2017 | | [place], [place] | [phone] | mellitus with | | | | [address] | | hyperglycemia, | | | | [phone] | | unspecified long | | | | | | term insulin use | | | | | | status ([facility]); Renal | | | | | [...] 1933 Date of Service: 12/20/161538 Status: Addendum Coat Joiner: Bunny Chaney MD (Physician) Related Notes: Original Note by Bunny Chaney MD (Physician) filed at 12/26/16 0644 [facility] Service: Hospitalist Physician Discharge Summary Patient ID: Kuldip Smith [id number] y.o. 1965 Admit date: 12/14/2016 Discharge [...] been approved, which should be given from [facility] ec until further approval from insurance. [...] up: Estrella Light PA-C [address] [place] [address] Rebeca Reza MD [address] [facility] [address] Schedule an appointment as soon as possible for a visit in 10 days Dictation and ticket attendant or software, [employer], used which may contain error for similar [...] - AMPUTATION; Surgeon: Walter Fernandez DPM; Location: [facility] OR; Service: Podiatry; Laterality: Left; Significant [...] Management by Jenny Vaughan RN at 12/20/16 4372 Author: Jenny Vaughan RN Service: (none) Author Type: Registered Nurse Filed: 12/20/16 0415 Date of Service: 12/20/161538 Status: Signed Coat Joiner: Jenny Vaughan RN (Registered Nurse) 1610 - Received call from [facility] stating they are now unable to accept pa tient due to a "freeze on admits". They are aware patient has been discharged and is en rou te to home. They are still unable to accept. Call placed to [facility] OPP rega rding need for services. They [...] Management by Mirlande Prescott RN at 12/20/16 2400 Author: Mirlande Prescott RN Service: (none) Author Type: Registered Nurse Filed: 12/21/16 0808 Date of Service: 12/20/16 1539 Status: Signed Coat Joiner: Mirlande Prescott RN (Registered Nurse) 0800: Tc to pt's PCP, Coby Light, with [facility], to updat e about [facility] not being able to admit pt. Coby states she and Charlotte will work on getting pt the appropriate wound vac care he needs, they are going to try and get pt into O P wound therapy with [facility] or maybe to OP in [place]. Coby states she will als o call [facility] as to when they can admit pt under their services. Maribel onver ruben Transaction, Provider Unknown - 12/20/2016 1:03 PM PDT Progress Notes by Rachael Molina RN at 12/20/16 1303 Author: Rachael Molina RN Service: Wound/Ostomy Care Author Type: Registered Nurse Filed: 12/20/16 1311 Date of Service: 12/20/16 1303 Status: Signed Coat Joiner: Rachael Molina RN (Registered Nurse) Wound care in to switch patient out to portable wound vac unit. This is a sol vac on l oan from [facility]. Explained to patient when his insurance approves his home vac unit, that t his sol vac is to be returned via [employer]. Instructions given in detail, voiced candelaria frias. Photo taken of tracking number and faxed to Alicia [facility] rep. Instructions on how to [...] for further protection. Hospital vac dc'd in [facility] express: #[id number] Rachael Molina RN, ON 12/20/2016 1:10 PM onver ruben Transaction, Provider Unknown - 12/20/2016 11:34 AM PDT Case Management by Mirlande Prescott RN at 12/20/16 1134 Author: Mirlande Prescott RN Service: (none) Author Type: Registered Nurse Filed: 12/20/16 1459 Date of Service: 12/20/16 1134 Status: Addendum Coat Joiner: Mirlande Prescott RN (Registered Nurse) Related Notes: Original Note by Mirlande Prescott RN (Registered Nurse) filed at 12/20/16 114 9 Per rounding with pt, he will be d/c home today. Pt states his mother will be providing tra nsportation home. Wound vac [facility]. [facility] has been set up, and they have been notified about d/c, pt may not be able t o be admitted until . Pt's wound dressing is due Monday. Tc to Angie with wound care, it's not ideal that pt's dressing doesn't get changed until , but it is ok to wait. Dr Chaney was notified and agrees with plan. Tc to Coby [phone] and Charlotte [phone] with [facility]/mannie pickens nd left mssgs of pt's d/c Today. Faxed AVS to [facility] Maribel Iqra Mcgregor PT - 12/20/2016 10:07 AM PDTFormatting of this note might be different from th e original. Therapy Progress Note by Karina Zabala PT at 12/20/16 1007 Author: Karina Zabala PT Service: (none) Author Type: Physical Therapist Filed: 12/20/16 1037 Date of Service: 12/20/16 1007 Status: Signed Coat Joiner: Karina Zabala PT (Physical Therapist) 12/20/16 1007 [...] (none) Author Type: Physical Therapist Filed: 12/19/16 1462 Date of Service: 12/19/166 Status: Signed Coat Joiner: Natalia Marte PT (Physical Therapist) 12/19/16 1646 PT Last Visit PT Received On 12/19/16 Reason for Treatment Other (comment) (L foot osteomyelitis) Requires PT Follow Up Awaiting tx order Follow up PT Only? Yes (Assistive device assessment) Focus for Next Treatment Equipment Trial;Stair Training (bilateral axillary crutches and stair training) PT Eval/Reassessment Date 12/19/16 Assistance Required 1 person Application Support Technician Needed No Home Environment Type of Home Home one story Home Exterior Layout 1-3 steps (2 JEISON) Home Interior Layout Lives on main level with bedroom/bathroom Bathroom Shower/Tub Tub/shower unit Bathroom Toilet Raised Bathroom Equipment Grab bars outside of shower/bath;Raised toilet seat Bathroom Accessibility Not accessible Home Equipment Cane single point;Crutches-axillary Prior Function Level of [place] Independent with ADLs;Independent with IADLs;Modified independent wi [...] Eval/Reassessment Date 12/19/16 Assistance Required 1 person Application Support Technician Needed No Precautions LE Precaution(s) LLE Precautions/WB [...] Notes by Rebeca Reza MD at 12/19/16 0007 Author: Rebeca Reza MD Service: Infectious Disease Author Type: Physician Filed: 12/20/16 0639 Date of Service: 12/19/16 4060 Status: Signed Coat Joiner: Rebeca Reza MD (Physician) [facility] Service: Infectious Disease Progress Note Hospital Day: [...] Dec 15 2016 9:30AM Referring Provider Line: [phone] ID: [id number] MRI foot left without contrast [[id number]] Impression 1. Recent amputation of the LEFT 4th toe. 2. No radiographic evidence of residual osteomyelitis in the remaining ossicles of the LEF T forefoot. 3. Moderately extensive vascular calcifications. X-ray foot left [[id number]] PROBLEM LIST Principal Problem: Osteomyelitis (HCC) Active [...] Date of Service: 12/19/16 1103 Status: Signed Coat Joiner: Dell Archer DO (Physician) PROGRESS NOTE 12/19/2016 [...] 1103 Date of Service: 12/19/16914 Status: Addendum Coat Joiner: Jenny Vaughan RN (Registered Nurse) Related Notes: Original Note by Jenny Vaughan RN (Registered Nurse) filed at 12/19/16 1 [phone] - [facility]. She wi ll be following patient once [...] accept patient. Face to face order faxed ([phone]) Charlotte [facility] RN [phone] Alicia with [facility] notified of wound vac placement. Auth form signed by hospitalist and faxed to Alicia. Lilly with [facility] Care notified of patient discharging on oral antibiotics. onver ruben Transaction, Provider Unknown - 12/18/2016 6:45 PM PDT Nurse Progress Note by Gerber Hay RN at 12/18/161844 Author: Gerber Hay RN Service: (none) Author Type: Registered Nurse Filed: 12/18/161847 Date of Service: 12/18/161844 Status: Signed Coat Joiner: Gerber Hay RN (Registered Nurse) Pt resting [...] 12/18/16933 Date of Service: 12/18/16928 Status: Addendum Coat Joiner: Dell Archer DO (Physician) Related Notes: Original [...] 12/18/16899 Date of Service: 12/18/16854 Status: Signed Coat Joiner: Walter Fernandez DPM (Doctor of Podiatric Medicine) [facility] Service: Podiatry Progress Note Hospital Day: LOS: [...] home health care. Dr. David DPM in [place] take s care of this patient and [...] 12/18/16845 Date of Service: 12/18/16845 Status: Signed Coat Joiner: Destini Vargas RPH (Pharmacist) Day 5 Vanco [...] 1108 Date of Service: 12/18/16820 Status: Signed Coat Joiner: Rebeca Reza MD (Physician) [facility] Service: Infectious Disease Progress Note Hospital Day: [...] Dec 15 2016 9:30AM Referring Provider Line: [phone] ID: [id number] MRI foot left without contrast [[id number]] Impression 1. Recent amputation of the LEFT 4th toe. 2. No radiographic evidence of residual osteomyelitis in the remaining ossicles of the LEF T forefoot. 3. Moderately extensive vascular calcifications. X-ray foot left [[id number]] PROBLEM LIST Principal Problem: Osteomyelitis (HCC) Active [...] Note by Jihan Jacinto RPH at 12/17/16 0759 Author: Jihan Jacinto RPH Service: Pharmacy Author Type: Pharmacist Filed: 12/17/162246 Date of Service: 12/17/162246 Status: Signed Coat Joiner: Jihan Jacinto RPH (Pharmacist) Clinical Pharmacy Note: [...] 12/17/161750 Date of Service: 12/17/161742 Status: Signed Coat Joiner: Gerber Hay RN (Registered Nurse) Wound vac [...] Notes by Rebeca Reza MD at 12/17/16 1070 Author: Rebeca Reza MD Service: Infectious Disease Author Type: Physician Filed: 12/17/16 1707 Date of Service: 12/17/16 1510 Status: Addendum Coat Joiner: Rebeca Reza MD (Physician) Related Notes: Original Note by Rebeca Reza MD (Physician) filed at 12/17/16 3873 [facility] Service: Infectious Disease Progress Note Hospital Day: [...] Dec 15 2016 9:30AM Referring Provider Line: [phone] ID: [id number] MRI foot left without contrast [[id number]] Impression 1. Recent amputation of the LEFT 4th toe. 2. No radiographic evidence of residual osteomyelitis in the remaining ossicles of the LEF T forefoot. 3. Moderately extensive vascular calcifications. X-ray foot left [[id number]] PROBLEM LIST Principal Problem: Osteomyelitis (HCC) Active [...] Doctor of Podiatric Medi cine Filed: 12/17/16 6961 Date of Service: 12/17/16 1406 Status: Signed Coat Joiner: Wlater Fernandez DPM (Doctor of Podiatric Medicine) [facility] Service: Podiatry Progress Note Hospital Day: LOS: [...] Note by Gerber Hay RN at 12/17/16 7779 Author: Gerber Hay RN Service: (none) Author Type: Registered Nurse Filed: 12/17/16 2767 Date of Service: 12/17/16 1144 Status: Signed Coat Joiner: Gerber Hay RN (Registered Nurse) Pt had [...] Date of Service: 12/17/16 1056 Status: Signed Coat Joiner: Dell Archer DO (Physician) PROGRESS NOTE 12/17/2016 [...] 12/17/16834 Date of Service: 12/17/16834 Status: Signed Coat Joiner: Destini Vargas RPH (Pharmacist) Day 4 Vanco [...] 12/17/168 Date of Service: 12/17/16307 Status: Signed Coat Joiner: Jihan Jacinto RPH (Pharmacist) Clinical Pharmacy Note: [...] 12/16/161719 Date of Service: 12/16/161709 Status: Signed Coat Joiner: Walter Fernandez DPM (Doctor of Podiatric Medicine) [facility] Service: Podiatry Progress Note Hospital Day: LOS: [...] Notes by Rebeca Reza MD at 12/16/16 1665 Author: Rebeca Reza MD Service: Infectious Disease Author Type: Physician Filed: 12/16/16 1606 Date of Service: 12/16/161 Status: Signed Coat Joiner: Rebeca Reza MD (Physician) [facility] Service: Infectious Disease Progress Note Hospital Day: [...] Dec 15 2016 9:30AM Referring Provider Line: [phone] ID: [id number] MRI foot left without contrast [[id number]] Impression 1. Recent amputation of the LEFT 4th toe. 2. No radiographic evidence of residual osteomyelitis in the remaining ossicles of the LEF T forefoot. 3. Moderately extensive vascular calcifications. X-ray foot left [[id number]] PROBLEM LIST Principal Problem: Osteomyelitis (HCC) Active [...] Management by Jenny Vaughan RN at 12/16/16 4462 Author: Jenny Vaughan RN Service: (none) Author Type: Registered Nurse Filed: 12/16/16 5427 Date of Service: 12/16/16 0099 Status: Signed Coat Joiner: Jenny Comfort, RN (Registered Nurse) 12/16/16 3303 Discharge Planning Evaluation Admitting Diagnosis osteomyelitis Readmission No Living Arrangements Parent Support Systems Parent;Family members Type of Residence Private residence House type House-1 story Steps to enter 2 Independent with ADL's Yes Independent with Mobility Yes Mental Status Oriented Prior functional status not employed, independent Power of Garage Door Service Technician No Anticipated Discharge Plan Post Acute Care [...] PCP is: Estrella Light PA-C Patient's insurance: Medicare/[facility] Coverage concerns: None Medication coverage/concerns: None Community resources utilized / needed: TBD pending pt progress and treatment plan. Sascha garcia need home health services along with IV abx. Discussed with patient and he states und erstanding. Referral sent to [facility] for nursing services as patient lives in [place]. Options for home IV abx services provided to pt/family and they do not have a preference. Referral to [facility] will follow. Pt/family requested I notify Coby at the [facility] of pt status as she ar ranges services for them. Contacted Coby and provided current discharge plan. If there is a change in plan, Coby requests to be notified as she will continue to follow patient after discharge. She also states pt will be followed by their community health nurse (Charlotte ) who works alongside [facility]. Coby [facility] [phone] Assistance in transportation: Pt's family is able [...] Date of Service: 12/16/16 1012 Status: Signed Coat Joiner: Dell Archer DO (Physician) PROGRESS NOTE 12/16/2016 [...] Date of Service: 12/15/16 1248 Status: Signed Coat Joiner: Jenny Vaughan RN (Registered Nurse) Attempted to [...] 12/15/16405 Date of Service: 12/15/16405 Status: Signed Coat Joiner: Jihan Jacinto RPH (Pharmacist) Clinical Pharmacy Note: [...] 12/15/16404 Date of Service: 12/15/16404 Status: Signed Coat Joiner: Jihan Jacinto RPH (Pharmacist) Clinical Pharmacy Note: [...] performed at [facility];88 | | LAB | | | | [address];[place] | | | | | | [address] | | | | + + + [...] | LAB | | | | [address];[place], [place] | | | | | | [address] | | | | + + + [...] [facility];888 | K/uL | LAB | | | | [address];[place] | | | | | | [address] | | | | + + + + + + | RED CELL | 4.00 (L)Comment: Testing | 4.20 - 5.70 | EXTERNAL | | | COUNT | performed at [facility];888 | M/uL | LAB | | | | [address];[place] | | | | | | [address] | | | | + + + + + + | Hgb | 11.6 (L)Comment: Testing | 13.2 - 17.0 | EXTERNAL | | | | performed at [facility];888 | g/dL | LAB | | | | [address];[place] | | | | | | [address] | | | | + + + + + + | Hematocrit, | 33.9 (L)Comment: Testing | 39.0 - 50.0 % | EXTERNAL | | | POC | performed at [facility];888 | | LAB | | | | [address];[place] | | | | | | [address] | | | | + + + + + + | MCV | 84.7Comment: Testing | 80.0 - 100.0 fl | EXTERNAL | | | | performed at [facility];888 | | LAB | | | | [address];[place] | | | | | | [address] | | | | + + + + + + | MCH | 28.9Comment: Testing | 27.0 - 34.0 pg | EXTERNAL | | | | performed at [facility];888 | | LAB | | | | [address];[place] | | | | | | [address] | | | | + + + + + + | MCHC | 34.1Comment: Testing | 32.0 - 35.5 | EXTERNAL | | | | performed at [facility];888 | g/dL | LAB | | | | [address];[place] | | | | | | [address] | | | | + + + + + + | RDW-CV | 42.0Comment: Testing | 37 - 53 fl | EXTERNAL | | | | performed at [facility];888 | | LAB | | | | [address];[place] | | | | | | [address] | | | | + + + + + + | Platelet | 392Comment: Testing | 150 - 400 K/uL | EXTERNAL | | | Count | performed at [facility];888 | | LAB | | | Plasma | [address];[place] | | | | | | [address] | | | | + + + + + + | MPV | 7.0Comment: Testing | fl | EXTERNAL | | | | performed at [facility];888 | | LAB | | | | [address];[place] | | | | | | [address] | | | | + + + + + + | Differentia | MANUALComment: Testing | | EXTERNAL | | | l Type | performed at [facility];888 | | LAB | | | | [address];[place] | | | | | | [address] | | | | + + + + + + | Segmented | 69Comment: Testing | % | EXTERNAL | | | Neutrophils | performed at [facility];888 | | LAB | | | Manual | [address];[place] | | | | | | [address] | | | | + + + + + + | Lymphocytes | 21Comment: Testing | % | EXTERNAL | | | Manual | performed at [facility];888 | | LAB | | | | [address];[place] | | | | | | [address] | | | | + + + + + + | Monocytes | 4Comment: Testing | % | EXTERNAL | | | Manual | performed at [facility];888 | | LAB | | | | [address];[place] | | | | | | [address] | | | | + + + + + + | Eosinophils | 6Comment: Testing | % | EXTERNAL | | | Manual | performed at [facility];888 | | LAB | | | | [address];[place] | | | | | | [address] | | | | + + + + + + | Absolute | 5.08Comment: Testing | 1.90 - 7.40 | EXTERNAL | | | Neutrophils | performed at [facility];888 | K/uL | LAB | | | | [address];[place] | | | | | | [address] | | | | + + + + + + | Absolute | 1.55Comment: Testing | 1.00 - 3.90 | EXTERNAL | | | Lymphocytes | performed at [facility];888 | K/uL | LAB | | | | [address];[place] | | | | | | [address] | | | | + + + + + + | Absolute | 0.29Comment: Testing | 0.00 - 0.80 | EXTERNAL | | | Monocytes | performed at [facility];888 | K/uL | LAB | | | | [address];[place] | | | | | | [address] | | | | + + + + + + | Absolute | 0.44Comment: Testing | 0.00 - 0.50 | EXTERNAL | | | Eosinophils | performed at [facility];888 | K/uL | LAB | | | | [address];[place] | | | | | | [address] | | | | + + + + + + | RBC | NORMALComment: Testing | | EXTERNAL | | | Morphology | performed at [facility];888 | | LAB | | | | [address];[place] | | | | | | [address] | | | | + + + [...] [place] | | | | | | [address] | | | | + + + [...] | LAB | | | | [address];[place], [place] | | | | | | [address] | | | | + + + [...] | LAB | | | | [address];[place] | | | | | | [address] | | | | + + + [...] | LAB | | | | [address];[place] | | | | | | [address] | | | | + + + [...] [place] | | | | | | [address] | | | | + + + [...] | LAB | | | | [address];[place], [place] | | | | | | [address] | | | | + + + [...] | LAB | | | | [address];[place] | | | | | | [address] | | | | + + + [...] | LAB | | | | [address];[place], [place] | | | | | | [address] | | | | + + + [...] | LAB | | | | [address];[place] | | | | | | [address] | | | | + + + [...] | EXTERNAL LAB | | performed at [facility];[address] [place] [address];[place] [address] TOXIN A | | | NEGATIVE Testing performed at | | | [facility];[address] [facility];[place] [address] C DIFF INTERPRETATION | | | Negative for toxigenic C.difficile. Testing performed at | | | [facility];[address] [place] [address];[place] [address] | | + + + + +---------+ [...] | LAB | | | | [address];[place] | | | | | | [address] | | | | + + + [...] EXTERNAL | | | | performed at [facility], [address] | K/uL | LAB | | | | [address], | | | | | | [place] [address] | | | | + + + + + + | RED CELL | 3.92 (L)Comment: Testing | 4.20 - 5.70 | EXTERNAL | | | COUNT | performed at [facility], [address] | M/uL | LAB | | | | [address], | | | | | | [place] [address] | | | | + + + + + + | Hgb | 11.2 (L)Comment: Testing | 13.2 - 17.0 | EXTERNAL | | | | performed at [facility], [address] | g/dL | LAB | | | | [address], | | | | | | [place] [address] | | | | + + + + + + | Hematocrit, | 33.6 (L)Comment: Testing | 39.0 - 50.0 % | EXTERNAL | | | POC | performed at [facility], [address] | | LAB | | | | [address], | | | | | | [place] [address] | | | | + + + + + + | MCV | 85.9Comment: Testing | 80.0 - 100.0 fl | EXTERNAL | | | | performed at [facility], [address] | | LAB | | | | [address], | | | | | | [place] [address] | | | | + + + + + + | MCH | 28.7Comment: Testing | 27.0 - 34.0 pg | EXTERNAL | | | | performed at [facility], [address] | | LAB | | | | [address], | | | | | | [place] [address] | | | | + + + + + + | MCHC | 33.4Comment: Testing | 32.0 - 35.5 | EXTERNAL | | | | performed at [facility], [address] | g/dL | LAB | | | | [address], | | | | | | [place] [address] | | | | + + + + + + | RDW-CV | 41.1Comment: Testing | 37 - 53 fl | EXTERNAL | | | | performed at [facility], [address] | | LAB | | | | [address], | | | | | | [place] [address] | | | | + + + + + + | Platelet | 341Comment: Testing | 150 - 400 K/uL | EXTERNAL | | | Count | performed at [facility], [address] | | LAB | | | Plasma | [address], | | | | | | [place] [address] | | | | + + + + + + | MPV | 7.6Comment: Testing | fl | EXTERNAL | | | | performed at [facility], [address] | | LAB | | | | [address], | | | | | | [place] [address] | | | | + + + + + + | Differentia | AUTOMATEDComment: | | EXTERNAL | | | l Type | Testing performed at | | LAB | | | | [facility], [address] | | | | | | [place] | | | | | | [address] | | | | + + + + + + | % Segmented | 76.22Comment: Testing | % | EXTERNAL | | | | performed at [facility], [address] | | LAB | | | Neutrophils | [address], | | | | | | [place] [address] | | | | + + + + + + | % | 12.04Comment: Testing | % | EXTERNAL | | | Lymphocytes | performed at [facility], [address] | | LAB | | | | [address], | | | | | | [place] [address] | | | | + + + + + + | % Monocytes | 6.15Comment: Testing | % | EXTERNAL | | | | performed at [facility], [address] | | LAB | | | [address], | | | | | | [place] [address] | | | | + + + + + + | % | 4.73Comment: Testing | % | EXTERNAL | | | Eosinophils | performed at [facility], [address] | | LAB | | | | [address], | | | | | | [place] [address] | | | | + + + + + + | % Basophils | 0.86Comment: Testing | % | EXTERNAL | | | | performed at [facility], [address] | | LAB | | | | [address], | | | | | | [place] [address] | | | | + + + + + + | Absolute | 8.38 (H)Comment: Testing | 1.90 - 7.40 | EXTERNAL | | | Segmented | performed at [facility], [address] | K/uL | LAB | | | Neutrophils | [address], | | | | | | [place] [address] | | | | + + + + + + | Absolute | 1.32Comment: Testing | 1.00 - 3.90 | EXTERNAL | | | Lymphocytes | performed at [facility], [address] | [address] | LAB | | | | [address], | | | | | | [place] [address] | | | | + + + + + + | Absolute | 0.68Comment: Testing | 0.00 - 0.80 | EXTERNAL | | | Monocytes | performed at [facility], [address] | K/u[address] | LAB | | | | [address], | | | | | | [place] [address] | | | | + + + + + + | Absolute | 0.52 (H)Comment: Testing | 0.00 - 0.50 | EXTERNAL | | | Eosinophils | performed at [facility], [address] | [address] | LAB | | | | [address], | | | | | | [place] [address] | | | | + + + + + + | Absolute | 0.10Comment: Testing | 0.00 - 0.10 | EXTERNAL | | | Basophils | performed at [facility], [address] | [address] | LAB | | | | [address], | | | | | | [place] [address] | | | | + + + [...] | | | | [place] [address] | | | | + + + + + + | K | 3.8Comment: Testing | 3.5 - 4.9 | EXTERNAL | | | | performed at [facility], [address] | mmol/L | LAB | | | | [address], | | | | | | [place] [address] | | | | + + + + + + | Cl | 105Comment: Testing | 99 - 109 mmol/L | EXTERNAL | | | | performed at [facility], [address] | | LAB | | | | [address], | | | | | | [place] [address] | | | | + + + + + + | CO2 | 25Comment: Testing | 23 - 32 mmol/L | EXTERNAL | | | | performed at [facility], [address] | | LAB | | | | [address], | | | | | | [place] [address] | | | | + + + + + + | Anion Gap | 12Comment: Testing | 5 - 20 mmol/L | EXTERNAL | | | | performed at [facility], [address] | | LAB | | | | [address], | | | | | | [place] [address] | | | | + + + + + + | Glucose, | 236 (H)Comment: Testing | 65 - 99 mg/dL | EXTERNAL | | | Fasting | performed at [facility], [address] | | LAB | | | | [address], | | | | | | [place] [address] | | | | + + + + + + | BUN | 6 (L)Comment: Testing | 8 - 25 mg/dL | EXTERNAL | | | | performed at [facility], [address] | | LAB | | | | [address], | | | | | | [place] [address] | | | | + + + + + + | Creatinine | 0.9Comment: Testing | 0.70 - 1.30 | EXTERNAL | | | | performed at [facility], [address] | mg/dL | LAB | | | | [address], | | | | | | [place] [address] | | | | + + + + + + | BUN/Creatin | 7Comment: Testing | | EXTERNAL | | | ine Ratio | performed at [facility], [address] | | LAB | | | | [address], | | | | | | [place] [address] | | | | + + + + + + | Calcium | 8.3 (L)Comment: Testing | 8.5 - 10.5 | EXTERNAL | | | | performed at [facility], [address] | mg/dL | LAB | | | | [address], | | | | | | [place] [address] | | | | + + + [...] Man, | | | | | | [place] [address] | | | | + + + [...] performed at [facility];[address] | | LAB | | | | [address];[place] | | | | | | [address] | | | | + + + [...] [place];[address] | | | | | | [address];[place] | | | | | | [address] | | | | + + + [...] | LAB | | | | [address];[place], [place] | | | | | | [address] | | | | + + + [...] [place] | | | | | | [address] | | | | + + + [...] | LAB | | | | [address];[place] | | | | | | [address] | | | | + + + [...] [place] | | | | | | [address] | | | | + + + + + + | RED CELL | 4.13 (L)Comment: Testing | 4.20 - 5.70 | EXTERNAL | | | COUNT | performed at [facility], [address] | [address] | LAB | | | | [address], | | | | | | [place] [address] | | | | + + + + + + | Hgb | 11.7 (L)Comment: Testing | 13.2 - 17.0 | EXTERNAL | | | | performed at [facility], [address] | g/dL | LAB | | | | [address], | | | | | | [place] [address] | | | | + + + + + + | Hematocrit, | 34.8 (L)Comment: Testing | 39.0 - 50.0 % | EXTERNAL | | | POC | performed at [facility], [address] | | LAB | | | | [address], | | | | | | [place] [address] | | | | + + + + + + | MCV | 84.2Comment: Testing | 80.0 - 100.0 fl | EXTERNAL | | | | performed at [facility], [address] | | LAB | | | | [address], | | | | | | [place] [address] | | | | + + + + + + | MCH | 28.2Comment: Testing | 27.0 - 34.0 pg | EXTERNAL | | | | performed at [facility], [address] | | LAB | | | | [address], | | | | | | [place] [address] | | | | + + + + + + | MCHC | 33.5Comment: Testing | 32.0 - 35.5 | EXTERNAL | | | | performed at [facility], [address] | g/dL | LAB | | | | [address], | | | | | | [place] [address] | | | | + + + + + + | RDW-CV | 42.0Comment: Testing | 37 - 53 fl | EXTERNAL | | | | performed at [facility], [address] | | LAB | | | | [address], | | | | | | [place] [address] | | | | + + + + + + | Platelet | 329Comment: Testing | 150 - 400 K/uL | EXTERNAL | | | Count | performed at [facility], [address] | | LAB | | | Plasma | [address], | | | | | | [place] [address] | | | | + + + + + + | MPV | 7.9Comment: Testing | fl | EXTERNAL | | | | performed at [facility], [address] | | LAB | | | | [address], | | | | | | [place] [address] | | | | + + + + + + | Differentia | AUTOMATEDComment: | | EXTERNAL | | | l Type | Testing performed at | | LAB | | | | [facility], [address] | | | | | | [place] | | | | | | [address] | | | | + + + + + + | % Segmented | 83.29Comment: Testing | % | EXTERNAL | | | | performed at [facility], [address] | | LAB | | | Neutrophils | [address], | | | | | | [place] [address] | | | | + + + + + + | % | 8.71Comment: Testing | % | EXTERNAL | | | Lymphocytes | performed at [facility], [address] | | LAB | | | | [address], | | | | | | [place] [address] | | | | + + + + + + | % Monocytes | 5.08Comment: Testing | % | EXTERNAL | | | | performed at [facility], [address] | | LAB | | | | [address], | | | | | | [place] [address] | | | | + + + + + + | % | 2.32Comment: Testing | % | EXTERNAL | | | Eosinophils | performed at [facility], [address] | | LAB | | | | [address], | | | | | | [place] [address] | | | | + + + + + + | % Basophils | 0.60Comment: Testing | % | EXTERNAL | | | | performed at [facility], [address] | | LAB | | | | [address], | | | | | | [place] [address] | | | | + + + + + + | Absolute | 12.15 (H)Comment: | 1.90 - 7.40 | EXTERNAL | | | Segmented | Testing performed at | K/uL | LAB | | | Neutrophils | [facility], [address] | | | | | | [place] | | | | | | [address] | | | | + + + + + + | Absolute | 1.27Comment: Testing | 1.00 - 3.90 | EXTERNAL | | | Lymphocytes | performed at [facility], [address] | K/u[address] | LAB | | | | [address], | | | | | | [place] [address] | | | | + + + + + + | Absolute | 0.74Comment: Testing | 0.00 - 0.80 | EXTERNAL | | | Monocytes | performed at [facility], [address] | K/[address] | LAB | | | | [address], | | | | | | [place] [address] | | | | + + + + + + | Absolute | 0.34Comment: Testing | 0.00 - 0.50 | EXTERNAL | | | Eosinophils | performed at [facility], [address] | [address] | LAB | | | [address], | | | | | | [place] [address] | | | | + + + + + + | Absolute | 0.09Comment: Testing | 0.00 - 0.10 | EXTERNAL | | | Basophils | performed at [facility], [address] | [address] | LAB | | | | [address], | | | | | | [place] [address] | | | | + + + [...] | | | | [place] [address] | | | | + + + + + + | K | 3.8Comment: Testing | 3.5 - 4.9 | EXTERNAL | | | | performed at [facility], [address] | mmol/L | LAB | | | | [address], | | | | | | [place] [address] | | | | + + + + + + | Cl | 104Comment: Testing | 99 - 109 mmol/L | EXTERNAL | | | | performed at [facility], [address] | | LAB | | | | [address], | | | | | | [place] [address] | | | | + + + + + + | CO2 | 27Comment: Testing | 23 - 32 mmol/L | EXTERNAL | | | | performed at [facility], [address] | | LAB | | | | [address], | | | | | | [place] [address] | | | | + + + + + + | Anion Gap | 11Comment: Testing | 5 - 20 mmol/L | EXTERNAL | | | | performed at [facility], [address] | | LAB | | | | [address], | | | | | | [place] [address] | | | | + + + + + + | Glucose, | 196 (H)Comment: Testing | 65 - 99 mg/dL | EXTERNAL | | | Fasting | performed at [facility], [address] | | LAB | | | | [address], | | | | | | [place] [address] | | | | + + + + + + | BUN | 5 (L)Comment: Testing | 8 - 25 mg/dL | EXTERNAL | | | | performed at [facility], [address] | | LAB | | | | [address], | | | | | | [place] [address] | | | | + + + + + + | Creatinine | 0.9Comment: Testing | 0.70 - 1.30 | EXTERNAL | | | | performed at [facility], [address] | mg/dL | LAB | | | | [address], | | | | | | [place] [address] | | | | + + + + + + | BUN/Creatin | 6Comment: Testing | | EXTERNAL | | | ine Ratio | performed at [facility], [address] | | LAB | | | | [address], | | | | | | [place] [address] | | | | + + + + + + | Calcium | 8.4 (L)Comment: Testing | 8.5 - 10.5 | EXTERNAL | | | | performed at [facility], [address] | mg/dL | LAB | | | | [address], | | | | | | [place] [address] | | | | + + + [...] | | | | | | at [facility], [address] | | | | | | [address], | | | | | | [place] [address] | | | | + + + [...] | LAB | | | | [address];[place] | | | | | | [address] | | | | + + + [...] performed at [facility];8 | | LAB | | | | [address];[place] | | | | | | [address] | | | | + + + [...] performed at [facility] | | | | | | [facility];[place], [place] | | | | | | [address] | | | | + + + [...] | LAB | | | | [address];[place] | | | | | | [address] | | | | + + + [...] | LAB | | | | [address];[place], [place] | | | | | | [address] | | | | + + + [...] | | | | [facility], [address] [facility] | | | | | | [place] | | | | | | [address] | | | | + + + + + + | RED CELL | 4.31Comment: Testing | 4.20 - 5.70 | EXTERNAL | | | COUNT | performed at [facility], [address] | M/uL | LAB | | | | [address], | | | | | | [place] [address] | | | | + + + + + + | Hgb | 12.3 (L)Comment: Testing | 13.2 - 17.0 | EXTERNAL | | | | performed at [facility], [address] | g/dL | LAB | | | | [address], | | | | | | [place] [address] | | | | + + + + + + | Hematocrit, | 36.4 (L)Comment: Testing | 39.0 - 50.0 % | EXTERNAL | | | POC | performed at [facility], [address] | | LAB | | | | [address], | | | | | | [place] [address] | | | | + + + + + + | MCV | 84.5Comment: Testing | 80.0 - 100.0 fl | EXTERNAL | | | | performed at [facility], [address] | | LAB | | | [address], | | | | | | [place] [address] | | | | + + + + + + | MCH | 28.5Comment: Testing | 27.0 - 34.0 pg | EXTERNAL | | | | performed at [facility], [address] | | LAB | | | | [address], | | | | | | [place] [address] | | | | + + + + + + | MCHC | 33.8Comment: Testing | 32.0 - 35.5 | EXTERNAL | | | | performed at [facility], [address] | g/dL | LAB | | | | [address], | | | | | | [place] [address] | | | | + + + + + + | RDW-CV | 42.9Comment: Testing | 37 - 53 fl | EXTERNAL | | | | performed at [facility], [address] | | LAB | | | | [address], | | | | | | [place] [address] | | | | + + + + + + | Platelet | 307Comment: Testing | 150 - 400 K/uL | EXTERNAL | | | Count | performed at [facility], [address] | | LAB | | | Plasma | [address], | | | | | | [place] [address] | | | | + + + + + + | MPV | 8.0Comment: Testing | fl | EXTERNAL | | | | performed at [facility], [address] | | LAB | | | | [address], | | | | | | [place] [address] | | | | + + + + + + | Differentia | AUTOMATEDComment: | | EXTERNAL | | | l Type | Testing performed at | | LAB | | | | [facility], [address] | | | | | | [place] | | | | | | [address] | | | | + + + + + + | % Segmented | 85.00Comment: Testing | % | EXTERNAL | | | | performed at [facility], [address] | | LAB | | | Neutrophils | [address], | | | | | | [place] [address] | | | | + + + + + + | % | 7.15Comment: Testing | % | EXTERNAL | | | Lymphocytes | performed at [facility], [address] | | LAB | | | | [address], | | | | | | [place] [address] | | | | + + + + + + | % Monocytes | 5.39Comment: Testing | % | EXTERNAL | | | | performed at [facility], [address] | | LAB | | | | [address], | | | | | | [place] [address] | | | | + + + + + + | % | 1.86Comment: Testing | % | EXTERNAL | | | Eosinophils | performed at [facility], [address] | | LAB | | | | [address], | | | | | | [place] [address] | | | | + + + + + + | % Basophils | 0.60Comment: Testing | % | EXTERNAL | | | | performed at [facility], [address] | | LAB | | | | [address], | | | | | | [place] [address] | | | | + + + + + + | Absolute | 13.51 (H)Comment: | 1.90 - 7.40 | EXTERNAL | | | Segmented | Testing performed at | K/uL | LAB | | | Neutrophils | [facility], [address] | | | | | | [place] | | | | | | [address] | | | | + + + + + + | Absolute | 1.14Comment: Testing | 1.00 - 3.90 | EXTERNAL | | | Lymphocytes | performed at [facility], [address] | K/uL | LAB | | | | [address], | | | | | | [place] [address] | | | | + + + + + + | Absolute | 0.86 (H)Comment: Testing | 0.00 - 0.80 | EXTERNAL | | | Monocytes | performed at [facility], [address] | [address] | LAB | | | | [address], | | | | | | [place] [address] | | | | + + + + + + | Absolute | 0.30Comment: Testing | 0.00 - 0.50 | EXTERNAL | | | Eosinophils | performed at [facility], [address] | K/[address] | LAB | | | | [address], | | | | | | [place] [address] | | | | + + + + + + | Absolute | 0.10Comment: Testing | 0.00 - 0.10 | EXTERNAL | | | Basophils | performed at [facility], [address] | K/uL | LAB | | | | [address], | | | | | | [place] [address] | | | | + + + [...] EXTERNAL | | | | performed at [facility], [address] | mmol/L | LAB | | | | [address], | | | | | | [place] [address] | | | | + + + + + + | K | 4.0Comment: Testing | 3.5 - 4.9 | EXTERNAL | | | | performed at [facility], [address] | mmol/L | LAB | | | | [address], | | | | | | [place] [address] | | | | + + + + + + | Cl | 103Comment: Testing | 99 - 109 mmol/L | EXTERNAL | | | | performed at [facility], [address] | | LAB | | | | [address], | | | | | | [place] [address] | | | | + + + + + + | CO2 | 24Comment: Testing | 23 - 32 mmol/L | EXTERNAL | | | | performed at [facility], [address] | | LAB | | | | [address], | | | | | | [place] [address] | | | | + + + + + + | Anion Gap | 14Comment: Testing | 5 - 20 mmol/L | EXTERNAL | | | | performed at [facility], [address] | | LAB | | | | [address], | | | | | | [place] [address] | | | | + + + + + + | Glucose, | 207 (H)Comment: Testing | 65 - 99 mg/dL | EXTERNAL | | | Fasting | performed at [facility], [address] | | LAB | | | | [address], | | | | | | [place] [address] | | | | + + + + + + | BUN | 7 (L)Comment: Testing | 8 - 25 mg/dL | EXTERNAL | | | | performed at [facility], [address] | | LAB | | | | [address], | | | | | | [place] [address] | | | | + + + + + + | Creatinine | 0.9Comment: Testing | 0.70 - 1.30 | EXTERNAL | | | | performed at [facility], [address] | mg/dL | LAB | | | | [address], | | | | | | [place] [address] | | | | + + + + + + | BUN/Creatin | 8Comment: Testing | | EXTERNAL | | | ine Ratio | performed at [facility], [address] | | LAB | | | | [address], | | | | | | [place] [address] | | | | + + + + + + | Calcium | 8.2 (L)Comment: Testing | 8.5 - 10.5 | EXTERNAL | | | | performed at [facility], [address] | mg/dL | LAB | | | | [address], | | | | | | [place] [address] | | | | + + + [...] W | | | | | | [address], | | | | | | [place] [address] | | | | + + + [...] | LAB | | | | [address];[place], [place] | | | | | | [address] | | | | + + + [...] with a red-brown discoloration of the bone. [employer] | | | sections are submitted in cassette B1 and placed into decal prior to | | | processing. [facility] MICROSCOPIC EXAMINATION: A-B. Histologic | | | sections of all submitted blocks are examined by light microscopy. | | | These findings, together with the gross examination, support the | | | pathologic diagnosis. PERFORMING LABORATORY: Professional | | | interpretation and technical preparation was performed by [facility] | | | [facility], [address], | | | [place] [address] (Consulting Business Developer: Rafat Lorenzo M.D.; [facility]#: | | | [id number]). Diagnostician: Isi Gore MD Pathologist | | [...] | LAB | | | | [address];[place] | | | | | | [address] | | | | + + + [...] | LAB | | | | [address];[place], [place] | | | | | | [address] | | | | + + + [...] [place] | | | | | | [address] | | | | + + + [...] [place] | | | | | | [address] | | | | + + + + + + | PCO2 ART | 32 (L)Comment: Testing | 35 - 45 mmHg | EXTERNAL | | | | performed at [facility];[address] | | LAB | | | | [address];[place] | | | | | | [address] | | | | + + + + + + | PO2 ART | 81Comment: Testing | 80 - 105 mmHg | EXTERNAL | | | | performed at [facility];[address] | | LAB | | | | [address];[place] | | | | | | [address] | | | | + + + + + + | Lactate, | <0.30 (L)Comment: | 0.36 - 1.25 | EXTERNAL | | | Arterial | Testing performed at | mmol/L | LAB | | | | C;[address] | | | [address];[place] [address] | | | | + + + + + + | HCO3 ART | 19 (L)Comment: Testing | 22 - 26 mmol/L | EXTERNAL | | | | performed at [facility];[address] | | LAB | | | | [address];[place] | | | | | | [address] | | | | + + + + + + | POC | 20 (L)Comment: Testing | 23 - 27 mEq/L | EXTERNAL | | | APPEARANCE | performed at [facility];[address] | | LAB | | | UA | [address];[place] | | | | | | [address] | | | | + + + + + + | Base | 6 (H)Comment: Testing | 0.0 - 2.0 | EXTERNAL | | | deficit | performed at [facility];[address] | mmol/L | LAB | | | | [address];[place] | | | | | | [address] | | | | + + + + + + | O2 SAT ART | 96Comment: Testing | 95 - 98 % | EXTERNAL | | | | performed at [facility];[address] | | LAB | | | | [address];[place] | | | | | | [address] | | | | + + + + + + | FiO2, POC | 21Comment: Testing | % | EXTERNAL | | | | performed at [facility];[address] | | LAB | | | | [address];[place] | | | | | | [address] | | | | + + + [...] [facility];[address] | mmol/L | LAB | | | | [address];[place], [place] | | | | | | [address] | | | | + + + [...] performed at [facility];8 | | LAB | | | | [address];[place], [place] | | | | | | [address] | | | | + + + [...] EXTERNAL | | | | performed at [facility], [address] | | LAB | | | | [address], | | | | | | [place] [address] | | | | + + + + + + | Clarity | CLEARComment: Testing | | EXTERNAL | | | | performed at [facility], [address] | | LAB | | | | [address], | | | | | | [place] [address] | | | | + + + + + + | Specific | 1.022Comment: Testing | 1.002 - 1.030 | EXTERNAL | | | [place] | performed at [facility], [address] | | LAB | | | | [address], | | | | | | [place] [address] | | | | + + + + + + | Leukocyte | NEGATIVEComment: | | EXTERNAL | | | Esterase, | Testing performed at | | LAB | | | Urine | [facility], [address] | | | | | | [place] | | | | | | [address] | | | | + + + + + + | Nitrite, | NEGATIVEComment: Testing | | EXTERNAL | | | Urine | performed at [facility], [address] | | LAB | | | | [address], | | | | | | [place] [address] | | | | + + + + + + | Urobilinoge | NORMALComment: Testing | mg/dL | EXTERNAL | | | n, Urine | performed at [facility], [address] | | LAB | | | | [address], | | | | | | [place] [address] | | | | + + + + + + | Protein, | NEGATIVEComment: Testing | mg/dL | EXTERNAL | | | Urine | performed at [facility], [address] | | LAB | | | | [address], | | | | | | [place] [address] | | | | + + + + + + | pH, Urine | 6.0Comment: Testing | 5.0 - 8.0 | EXTERNAL | | | | performed at [facility], [address] | | LAB | | | | [address], | | | | | | [place] [address] | | | | + + + + + + | Blood, | NEGATIVEComment: Testing | | EXTERNAL | | | Urine | performed at [facility], [address] | | LAB | | | | [address], | | | | | | [place] [address] | | | | + + + + + + | Ketones | NEGATIVEComment: Testing | mg/dL | EXTERNAL | | | | performed at [facility], [address] | | LAB | | | | [address], | | | | | | [place] [address] | | | | + + + + + + | Bilirubin, | NEGATIVEComment: Testing | | EXTERNAL | | | Urine | performed at [facility], [address] | | LAB | | | | [address], | | | | | | [place] [address] | | | | + + + + + + | Glucose, | >500 (A)Comment: Testing | mg/dL | EXTERNAL | | | Urine | performed at [facility], [address] | | LAB | | | | [address], | | | | | | [place] [address] | | | | + + + [...] | | LAB | | | | [facility];[address];[place] [address] | | | | + + + + + + | PCO2 ART | 56 (H)Comment: Testing | 35 - 45 mmHg | EXTERNAL | | | | performed at [facility];[address] | | LAB | | | | [address];[place] | | | | | | [address] | | | | + + + + + + | PO2 ART | 74 (L)Comment: Testing | 80 - 105 mmHg | EXTERNAL | | | | performed at [facility];[address] | | LAB | | | | [address];[place] | | | | | | [address] | | | | + + + + + + | Lactate, | 7.11 (H)Comment: Testing | 0.36 - 1.25 | EXTERNAL | | | Arterial | performed at [facility];888 | mmol/L | LAB | | | | [address];[place] | | | | | | [address] | | | | + + + + + + | HCO3 ART | 9 (L)Comment: Testing | 22 - 26 mmol/L | EXTERNAL | | | | performed at [facility];[address] | | LAB | | | | [address];[place] | | | | | | [address] | | | | + + + + + + | POC | 11 (L)Comment: Testing | 23 - 27 mEq/L | EXTERNAL | | | APPEARANCE | performed at [facility];[address] | | LAB | | | UA | [address];[place] | | | | | | [address] | | | | + + + + + + | Base | 25 (H)Comment: Testing | 0.0 - 2.0 | EXTERNAL | | | deficit | performed at [facility];888 | mmol/L | LAB | | | | [address];[place] | | | | | | [address] | | | | + + + + + + | O2 SAT ART | 77 (L)Comment: Testing | 95 - 98 % | EXTERNAL | | | | performed at [facility];[address] | | LAB | | | | [address];[place] | | | | | | [address] | | | | + + + + + + | FiO2, POC | 100Comment: Testing | % | EXTERNAL | | | | performed at [facility];[address] | | LAB | | | | [address];[place] | | | | | | [address] | | | | + + + [...] [place] | | | | | | [address] | | | | + + + + + + | RED CELL | 4.04 (L)Comment: Testing | 4.20 - 5.70 | EXTERNAL | | | COUNT | performed at [facility], [address] | M/uL | LAB | | | | [address], | | | | | | [place] [address] | | | | + + + + + + | Hgb | 11.4 (L)Comment: Testing | 13.2 - 17.0 | EXTERNAL | | | | performed at [facility], [address] | g/dL | LAB | | | | [address], | | | | | | [place] [address] | | | | + + + + + + | Hematocrit, | 35.1 (L)Comment: Testing | 39.0 - 50.0 % | EXTERNAL | | | POC | performed at [facility], [address] | | LAB | | | | [address], | | | | | | [place] [address] | | | | + + + + + + | MCV | 86.7Comment: Testing | 80.0 - 100.0 fl | EXTERNAL | | | | performed at [facility], [address] | | LAB | | | | [address], | | | | | | [place] [address] | | | | + + + + + + | MCH | 28.2Comment: Testing | 27.0 - 34.0 pg | EXTERNAL | | | | performed at [facility], [address] | | LAB | | | [address], | | | | | | [place] [address] | | | | + + + + + + | MCHC | 32.5Comment: Testing | 32.0 - 35.5 | EXTERNAL | | | | performed at [facility], [address] | g/dL | LAB | | | | [address], | | | | | | [place] [address] | | | | + + + + + + | RDW-CV | 42.0Comment: Testing | 37 - 53 fl | EXTERNAL | | | | performed at [facility], [address] | | LAB | | | | [address], | | | | | | [place] [address] | | | | + + + + + + | Platelet | 262Comment: Testing | 150 - 400 K/uL | EXTERNAL | | | Count | performed at [facility], [address] | | LAB | | | Plasma | [address], | | | | | | [place] [address] | | | | + + + + + + | MPV | 8.4Comment: Testing | fl | EXTERNAL | | | | performed at [facility], [address] | | LAB | | | | [address], | | | | | | [place] [address] | | | | + + + + + + | Differentia | AUTOMATEDComment: | | EXTERNAL | | | l Type | Testing performed at | | LAB | | | | [facility], [address] | | | | | | [place] | | | | | | [address] | | | | + + + + + + | % Segmented | 82.60Comment: Testing | % | EXTERNAL | | | | performed at [facility], [address] | | LAB | | | Neutrophils | [address], | | | | | | [place] [address] | | | | + + + + + + | % | 7.47Comment: Testing | % | EXTERNAL | | | Lymphocytes | performed at [facility], [address] | | LAB | | | | [address], | | | | | | [place] [address] | | | | + + + + + + | % Monocytes | 6.29Comment: Testing | % | EXTERNAL | | | | performed at [facility], [address] | | LAB | | | | [address], | | | | | | [place] [address] | | | | + + + + + + | % | 3.29Comment: Testing | % | EXTERNAL | | | Eosinophils | performed at [facility], [address] | | LAB | | | | [address], | | | | | | [place] [address] | | | | + + + + + + | % Basophils | 0.35Comment: Testing | % | EXTERNAL | | | | performed at [facility], [address] | | LAB | | | | [address], | | | | | | [place] [address] | | | | + + + + + + | Absolute | 13.94 (H)Comment: | 1.90 - 7.40 | EXTERNAL | | | Segmented | Testing performed at | K/uL | LAB | | | Neutrophils | [facility], [address] | | | | | | [place] | | | | | | [address] | | | | + + + + + + | Absolute | 1.26Comment: Testing | 1.00 - 3.90 | EXTERNAL | | | Lymphocytes | performed at [facility], [address] | K/uL | LAB | | | | [address], | | | | | | [place] [address] | | | | + + + + + + | Absolute | 1.06 (H)Comment: Testing | 0.00 - 0.80 | EXTERNAL | | | Monocytes | performed at [facility], [address] | [address] | LAB | | | | [address], | | | | | | [place] [address] | | | | + + + + + + | Absolute | 0.56 (H)Comment: Testing | 0.00 - 0.50 | EXTERNAL | | | Eosinophils | performed at [facility], [address] | [address]/u[address] | LAB | | | | [address], | | | | | | [place] [address] | | | | + + + + + + | Absolute | 0.06Comment: Testing | 0.00 - 0.10 | EXTERNAL | | | Basophils | performed at [facility], [address] | K/uL | LAB | | | | [address], | | | | | | [place] [address] | | | | + + + [...] EXTERNAL | | | | performed at [facility], [address] | | LAB | | | | [address], | | | | | | [place] [address] | | | | + + + [...] EXTERNAL | | | | performed at [facility], [address] | | LAB | | | | [place] [address], | | | | | | [place] [address] | | | | + + + [...] | EXTERNAL | | | A1c | [place] [facility] | | LAB | | | [...] | | | | | performed at [facility], [address] | | | | | | [address] [facility] ([place], [place]), | | | | | | [place] [address] | | | | + + + [...] | | | | | performed at [facility], [address] | | | | | | [facility] ([place], [place]), | | | | | | [place] [address] | | | | + + + [...] | | | | [place] [address] | | | | + + + [...] | | | | [place] [address] | | | | + + + + + + | CO2 | 22 (L)Comment: Testing | 23 - 32 mmol/L | EXTERNAL | | | | performed at [facility], [address] | | LAB | | | | [address], | | | | | | [place] [address] | | | | + + + + + + | Anion Gap | 14Comment: Testing | 5 - 20 mmol/L | EXTERNAL | | | | performed at [facility], [address] | | LAB | | | | [address], | | | | | | [place] [address] | | | | + + + + + + | Glucose, | 392 (H)Comment: Testing | 65 - 99 mg/dL | EXTERNAL | | | Fasting | performed at [facility], [address] | | LAB | | | | [address], | | | | | | [place] [address] | | | | + + + + + + | BUN | 12Comment: Testing | 8 - 25 mg/dL | EXTERNAL | | | | performed at [facility], [address] | | LAB | | | | [address], | | | | | | [place] [address] | | | | + + + + + + | Creatinine | 1.0Comment: Testing | 0.70 - 1.30 | EXTERNAL | | | | performed at [facility], [address] | mg/dL | LAB | | | | [address], | | | | | | [place] [address] | | | | + + + + + + | BUN/Creatin | 12Comment: Testing | | EXTERNAL | | | ine Ratio | performed at [facility], [address] | | LAB | | | | [place], | | | | | | [place] [address] | | | | + + + + + + | Calcium | 7.6 (L)Comment: Testing | 8.5 - 10.5 | EXTERNAL | | | | performed at [facility], [address] | mg/dL | LAB | | | | [address], | | | | | | [place] [address] | | | | + + + + + + | Protein, | 6.4Comment: Testing | 6.3 - 8.2 g/dL | EXTERNAL | | | Total | performed at [facility], [address] | | LAB | | | | [address], | | | | | | [place] [address] | | | | + + + + + + | Albumin | 2.2 (L)Comment: Testing | 3.6 - 5.0 g/dL | EXTERNAL | | | | performed at [facility], [address] | | LAB | | | | [place], | | | | | | [place] [address] | | | | + + + + + + | Globulin | 4.2Comment: Testing | 1.3 - 4.9 g/dL | EXTERNAL | | | | performed at [facility], [address] | | LAB | | | | [place], | | | | | | [place] [address] | | | | + + + + + + | A/G Ratio | 0.5 (L)Comment: Testing | 1.0 - 2.4 | EXTERNAL | | | | performed at [facility], [address] | | LAB | | | | [address], | | | | | | [place] [address] | | | | + + + + + + | Bilirubin | 0.6Comment: Testing | 0.1 - 1.5 mg/dL | EXTERNAL | | | Total | performed at [facility], [address] | | LAB | | | | [address], | | | | | | [place] [address] | | | | + + + + + + | ALP, | 182 (H)Comment: Testing | 35 - 115 U/L | EXTERNAL | | | External | performed at [facility], [address] | | LAB | | | | [address], | | | | | | [place] [address] | | | | + + + + + + | AST | 9 (L)Comment: Testing | 10 - 45 U/L | EXTERNAL | | | | performed at [facility], [address] | | LAB | | | | [address], | | | | | | [place] [address] | | | | + + + + + + | ALT | 16Comment: Testing | 10 - 65 U/L | EXTERNAL | | | | performed at [facility], [address] | | LAB | | | | [address], | | | | | | [place] [address] | | | | + + + [...] | | | | | | at [facility], [address] | | | | | | [address], | | | | | | [place] [address] | | | | + + + [...] | LAB | | | | [address];[place], [place] | | | | | | [address] | | | | + + + [...] EXTERNAL LAB | | Testing performed at [facility];[address] [place] [address];[place] [address] MRSA PCR | | | POSITIVE for MRSA by PCRAbnormal | | | Testing performed at [address];[place] [address] | | + + + + +---------+ [...] performed at [facility];8 | | LAB | | | | [address];[place] | | | | | | [address] | | | | + + + [...] [facility];[address] | mmol/L | LAB | | | | [address];[place] | | | | | | [address] | | | | + + + + + + | K | 4.0Comment: Testing | 3.5 - 4.9 | EXTERNAL | | | | performed at [facility];[address] | mmol/L | LAB | | | | [address];[place] | | | | | | [address] | | | | + + + + + + | Cl | 104Comment: Testing | 99 - 109 mmol/L | EXTERNAL | | | | performed at [facility];[address] | | LAB | | | | [address];[place] | | | | | | [address] | | | | + + + + + + | CO2 | 21 (L)Comment: Testing | 23 - 32 mmol/L | EXTERNAL | | | | performed at [facility];[address] | | LAB | | | | [address];[place] | | | | | | [address] | | | | + + + + + + | Anion Gap | 13Comment: Testing | 5 - 20 mmol/L | EXTERNAL | | | | performed at [facility];[address] | | LAB | | | | [address];[place] | | | | | | [address] | | | | + + + + + + | Glucose, | 254 (H)Comment: Testing | 65 - 99 mg/dL | EXTERNAL | | | Fasting | performed at [facility];[address] | | LAB | | | | [address];[place] | | | | | | [address] | | | | + + + + + + | BUN | 12Comment: Testing | 8 - 25 mg/dL | EXTERNAL | | | | performed at [facility];[address] | | LAB | | | | [address];[place] | | | | | | [address] | | | | + + + + + + | Creatinine | 0.95Comment: Testing | 0.70 - 1.30 | EXTERNAL | | | | performed at [facility];[address] | mg/dL | LAB | | | | [address];[place] | | | | | | [address] | | | | + + + + + + | BUN/Creatin | 13Comment: Testing | | EXTERNAL | | | ine Ratio | performed at [facility];[address] | | LAB | | | | [address];[place] | | | | | | [address] | | | | + + + + + + | Calcium | 6.9 (L)Comment: Testing | 8.5 - 10.5 | EXTERNAL | | | | performed at [facility];888 | mg/dL | LAB | | | | [address];[place] | | | | | | [address] | | | | + + + + + + | Protein, | 6.3Comment: Testing | 6.3 - 8.2 g/dL | EXTERNAL | | | Total | performed at [facility];[address] | | LAB | | | | [address];[place] | | | | | | [address] | | | | + + + + + + | Albumin | 2.1 (L)Comment: Testing | 3.6 - 5.0 g/dL | EXTERNAL | | | | performed at [facility];[address] | | LAB | | | | [address];[place] | | | | | | [address] | | | | + + + + + + | Globulin | 4.2Comment: Testing | 1.3 - 4.9 g/dL | EXTERNAL | | | | performed at [facility];[address] | | LAB | | | | [address];[place] | | | | | | [address] | | | | + + + + + + | A/G Ratio | 0.5 (L)Comment: Testing | 1.0 - 2.4 | EXTERNAL | | | | performed at [facility];[address] | | LAB | | | | [address];[place] | | | | | | [address] | | | | + + + + + + | Bilirubin | 0.4Comment: Testing | 0.1 - 1.5 mg/dL | EXTERNAL | | | Total | performed at [facility];[address] | | LAB | | | | [address];[place] | | | | | | [address] | | | | + + + + + + | ALP, | 181 (H)Comment: Testing | 35 - 115 U/L | EXTERNAL | | | External | performed at [facility];[address] | | LAB | | | | [address];[place] | | | | | | [address] | | | | + + + + + + | AST | 10Comment: Testing | 10 - 45 U/L | EXTERNAL | | | | performed at [facility];[address] | | LAB | | | | [address];[place] | | | | | | [address] | | | | + + + + + + | ALT | 14Comment: Testing | 10 - 65 U/L | EXTERNAL | | | | performed at [facility];[address] | | LAB | | | | [address];[place] | | | | | | [address] | | | | + + + [...] | | | | | | at [facility];[address];[place] [address] | | | | + + + [...] 9:30AM Referring Provider Line: | | | [phone] ID: [id number] | | + + + [...] | | 2016 9:30AM Referring Provider Line: [phone] ID: [id number] | + + POC Glucose [...] | LAB | | | | [address];[place], [place] | | | | | | [address] | | | | + + + [...] [facility];[address] | mmol/L | LAB | | | | [address];[place], [place] | | | | | | [address] | | | | + + + [...] | | | Blood | performed at [facility];[address] | | LAB | | | | [address];[place], [place] | | | | | | [address] | | | | + + + [...] performed at [facility] | | LAB | | | | [address];[place] | | | | | | [address] | | | | + + + [...] K/uL | LAB | | | | [facility];[address];[place] [address] | | | | + + + + + + | RED CELL | 4.20Comment: Testing | 4.20 - 5.70 | EXTERNAL | | | COUNT | performed at [facility];[address] | M/uL | LAB | | | | [address];[place] | | | | | | [address] | | | | + + + + + + | Hgb | 12.4 (L)Comment: Testing | 13.2 - 17.0 | EXTERNAL | | | | performed at [facility];888 | g/dL | LAB | | | | [address];[place] | | | | | | [address] | | | | + + + + + + | Hematocrit, | 36.3 (L)Comment: Testing | 39.0 - 50.0 % | EXTERNAL | | | POC | performed at [facility];[address] | | LAB | | | | [address];[place] | | | | | | [address] | | | | + + + + + + | MCV | 86.5Comment: Testing | 80.0 - 100.0 fl | EXTERNAL | | | | performed at [facility];[address] | | LAB | | | | [address];[place] | | | | | | [address] | | | | + + + + + + | MCH | 29.4Comment: Testing | 27.0 - 34.0 pg | EXTERNAL | | | | performed at [facility];[address] | | LAB | | | | [address];[place] | | | | | | [address] | | | | + + + + + + | MCHC | 34.0Comment: Testing | 32.0 - 35.5 | EXTERNAL | | | | performed at [facility];888 | g/dL | LAB | | | | [address];[place] | | | | | | [address] | | | | + + + + + + | RDW-CV | 42.9Comment: Testing | 37 - 53 fl | EXTERNAL | | | | performed at [facility];[address] | | LAB | | | | [address];[place] | | | | | | [address] | | | | + + + + + + | Platelet | 258Comment: Testing | 150 - 400 K/uL | EXTERNAL | | | Count | performed at [facility];[address] | | LAB | | | Plasma | [address];[place] | | | | | | [address] | | | | + + + + + + | MPV | 8.3Comment: Testing | fl | EXTERNAL | | | | performed at [facility];[address] | | LAB | | | | [address];[place] | | | | | | [address] | | | | + + + + + + | Differentia | AUTOMATEDComment: | | EXTERNAL | | | l Type | Testing performed at | | LAB | | | | [facility];[address];[place] [address] | | | | + + + + + + | % Segmented | 87.43Comment: Testing | % | EXTERNAL | | | | performed at [facility];[address] | | LAB | | | Neutrophils | [address];[place] | | | | | | [address] | | | | + + + + + + | % | 5.56Comment: Testing | % | EXTERNAL | | | Lymphocytes | performed at [facility];[address] | | LAB | | | | [address];[place] | | | | | | [address] | | | | + + + + + + | % Monocytes | 4.36Comment: Testing | % | EXTERNAL | | | | performed at [facility];[address] | | LAB | | | | [address];[place] | | | | | | [address] | | | | + + + + + + | % | 1.84Comment: Testing | % | EXTERNAL | | | Eosinophils | performed at [facility];[address] | | LAB | | | | [address];[place] | | | | | | [address] | | | | + + + + + + | % Basophils | 0.81Comment: Testing | % | EXTERNAL | | | | performed at [facility];[address] | | LAB | | | | [address];[place] | | | | | | [address] | | | | + + + + + + | Absolute | 17.02 (H)Comment: | 1.90 - 7.40 | EXTERNAL | | | Segmented | Testing performed at | K/uL | LAB | | | Neutrophils | [facility];[address];[place] [address] | | | | + + + + + + | Absolute | 1.08Comment: Testing | 1.00 - 3.90 | EXTERNAL | | | Lymphocytes | performed at [facility];[address] | K/uL | LAB | | | | [address];[place] | | | | | | [address] | | | | + + + + + + | Absolute | 0.85 (H)Comment: Testing | 0.00 - 0.80 | EXTERNAL | | | Monocytes | performed at [facility];[address] | K/uL | LAB | | | | [address];[place] | | | | | | [address] | | | | + + + + + + | Absolute | 0.36Comment: Testing | 0.00 - 0.50 | EXTERNAL | | | Eosinophils | performed at [facility];[address] | K/uL | LAB | | | | [address];[place] | | | | | | [address] | | | | + + + + + + | Absolute | 0.16 (H)Comment: Testing | 0.00 - 0.10 | EXTERNAL | | | Basophils | performed at [facility];[address] | K/uL | LAB | | | | [address];[place] | | | | | | [address] | | | | + + + + + + | RBC | RBC AND PLT MORPHOLOGY | | EXTERNAL | | | Morphology | APPEAR NORMALComment: | | LAB | | | | Testing performed at | | | | | | [facility];[address];[place] [address] | | | | + + + + + + | Platelet | ADEQUATEComment: Testing | | EXTERNAL | | | Estimate | performed at [facility];[address] | | LAB | | | | [address];[place] | | | | | | [address] | | | | + + + + + + | Differentia | SLIDE SCANNED, AGREES | | EXTERNAL | | | l Comments | WITH AUTOMATED | | LAB | | | | RESULTS.Comment: Testing | | | | | | performed at [facility];[address] | | | | | | [address];[place], [place] | | | | | | [address] | | | | + + + [...] performed at [facility] | | LAB | | | | [address];[place], [place] | | | | | | [address] | | | | + + + [...] [facility];888 | mmol/L | LAB | | | | [address];[place] | | | | | | [address] | | | | + + + + + + | K | 5.1 (H)Comment: MODERATE | 3.5 - 4.9 | EXTERNAL | | | | HEMOLYSISTesting | mmol/L | LAB | | | | performed at [facility];[address] | | | | | | [address];[place] | | | | | | [address] | | | | + + + + + + | Cl | 93 (L)Comment: Testing | 99 - 109 mmol/L | EXTERNAL | | | | performed at [facility];[address] | | LAB | | | | [address];[place] | | | | | | [address] | | | | + + + + + + | CO2 | 23Comment: Testing | 23 - 32 mmol/L | EXTERNAL | | | | performed at [facility];[address] | | LAB | | | | [address];[place] | | | | | | [address] | | | | + + + + + + | Anion Gap | 14Comment: Testing | 5 - 20 mmol/L | EXTERNAL | | | | performed at [facility];[address] | | LAB | | | | [address];[place] | | | | | | [address] | | | | + + + [...] [place] | | | | | | [address] | | | | + + + + + + | BUN | 13Comment: Testing | 8 - 25 mg/dL | EXTERNAL | | | | performed at [facility];[address] | | LAB | | | | [address];[place] | | | | | | [address] | | | | + + + + + + | Creatinine | 1.4 (H)Comment: Testing | 0.70 - 1.30 | EXTERNAL | | | | performed at [facility];888 | mg/dL | LAB | | | | [address];[place] | | | | | | [address] | | | | + + + + + + | BUN/Creatin | 10Comment: Testing | | EXTERNAL | | | ine Ratio | performed at [facility];[address] | | LAB | | | | [address];[place] | | | | | | [address] | | | | + + + + + + | Calcium | 7.9 (L)Comment: Testing | 8.5 - 10.5 | EXTERNAL | | | | performed at [facility];888 | mg/dL | LAB | | | | [address];[place] | | | | | | [address] | | | | + + + + + + | Protein, | 7.7Comment: Testing | 6.3 - 8.2 g/dL | EXTERNAL | | | Total | performed at [facility];[address] | | LAB | | | | [address];[place] | | | | | | [address] | | | | + + + + + + | Albumin | 2.6 (L)Comment: Testing | 3.6 - 5.0 g/dL | EXTERNAL | | | | performed at [facility];[address] | | LAB | | | | [address];[place] | | | | | | [address] | | | | + + + + + + | Globulin | 5.1 (H)Comment: Testing | 1.3 - 4.9 g/dL | EXTERNAL | | | | performed at [facility];[address] | | LAB | | | | [address];[place] | | | | | | [address] | | | | + + + + + + | A/G Ratio | 0.5 (L)Comment: Testing | 1.0 - 2.4 | EXTERNAL | | | | performed at [facility];[address] | | LAB | | | | [address];[place] | | | | | | [address] | | | | + + + + + + | Bilirubin | 0.6Comment: Testing | 0.1 - 1.5 mg/dL | EXTERNAL | | | Total | performed at [facility];[address] | | LAB | | | | [address];[place] | | | | | | [address] | | | | + + + + + + | ALP, | 259 (H)Comment: Testing | 35 - 115 U/L | EXTERNAL | | | External | performed at [facility];[address] | | LAB | | | | [address];[place] | | | | | | [address] | | | | + + + + + + | AST | 17Comment: MODERATE | 10 - 45 U/L | EXTERNAL | | | | HEMOLYSISTesting | | LAB | | | | performed at [facility];[address] | | | | | | [address];[place] | | | | | | [address] | | | | + + + + + + | ALT | 17Comment: Testing | 10 - 65 U/L | EXTERNAL | | | | performed at [facility];[address] | | LAB | | | | [address];[place] | | | | | | [address] | | | | + + + [...] | | | | | | at [facility];[address] [facility] | | | | | | [facility];[place] [address] | | | | + + + [...] type 2 diabetes mellitus with hyperglycemia, unspecified orientation and mobility specialist | | insulin use status | + [...]
--- OUTSIDE RECORDS SUMMARY | ~2019-08-15 | XMS | Encounter Summary ---
Demographics + + + | Address | [address] | | | [place] [address] | + + + | Home Phone [...] | + + +---------+ + | Yasmany Smiht | ECON | Unknown | | + + +---------+ + | Katherine Duran | ECON | Unknown | | + + +---------+ + | Sarah Hanson | ECON | Unknown | | + + +---------+ + Care Team Providers + +------+ + | Care Field Recruiter Name | Role | Phone | + [...] + | 04/12/ | Telephone | [facility] | Avi Forde MD | [facility] | | 2015 | | GASTROENTEROLOGY | [address], [place] | (egds,colon) | | | | [address] [place] | [address] [place] [address] | | | | | [address] [place], [place] | [address] | | | | | [address] | | | | | | [phone] | | | +--------+ + + + [...]
--- OUTSIDE RECORDS SUMMARY | ~2019-08-15 | XMS | Encounter Summary ---
Demographics + + + | Address | [address] | | | [place] [address] | + + + | Home Phone [...] Team Providers + +------+ + | Care Cut To Length Operator Name | Role | Phone | [...] antibody | [address], | | | | | positive | [place], [place] | [place] [address] | | | | | Chronic | [address] [place] | [place], | | | | | diarrhea | [place], [place] | [place] [address] | | | | | Procedures | [address] | Phone: | | | | | [place] | Phone: | [phone] | | | | | COLONOSCOPY | [phone] | Fax: | | | | | FLX DX | Fax: | [phone] | | | | | W/COLLJ SPEC | [phone] | | | | | | WHEN [...] 2015 | | GASTROENTEROLOGY | [address] [place] | (egd/colon ) | | | | [address] [place] | [address] [place], [place] | | | | | [address] [place], [place] | [address] | | | | | [address] | | | | | | [phone] | | | +--------+ + + + [...]
--- OUTSIDE RECORDS SUMMARY | ~2019-08-15 | XMS | Encounter Summary ---
Demographics + + + | Address | [address] | | | [place] [address] | + + + | Home Phone [...] Team Providers + +------+ + | Care Station Jailer Name | Role | Phone | + +------+ + PCP | Unavailable | + +------+ + Encounter Details +--------+ + + + + | Date | Type | Department | Care Team | Description | +--------+ + + + + | 07/19/ | Hospital | [facility] | | | | 1992 | Encounter | [facility] | | | | | | [address] | | | | | | [place] | | | | | | [address] | | | | | | [phone] | | | +--------+ + + + [...]
--- OUTSIDE RECORDS SUMMARY | ~2019-08-15 | XMS | Encounter Summary ---
Demographics + + + | Address | [address] | | | [place] [address] | + + + | Home Phone | | + + + | Preferred Language | Unknown | + + + | Marital Status | Single | + + + | Zoroastrianism Affiliation | 1077 | + + + | Race | Unknown | + + + | Ethnic Group | Unknown | + + + Author + + + | Author | [facility] | | | and [place] | + + + | Organization | [facility] | | [...] | + + +---------+ + | Katherine Durna | ECON | Unknown | | + + +---------+ + | Sarah Hanson | ECON | Unknown | | + + +---------+ + Care Team Providers + +------+ + | Care Metal Pattern Maker Name | Role | Phone | + [...] 04/12/ | Telephone | [facility] | Avi Forde MD | [facility] No Show | | 2015 | | GASTROENTEROLOGY | [address], [place] | | | | | [address] [place] | [address] [place] | | | | | [address] [place], [place] | [address] | | | | | [address] | | | | | | [phone] | | | +--------+ + + + [...]
--- OUTSIDE RECORDS SUMMARY | ~2019-08-15 | XMS | Clinical Summary ---
Demographics + + + | Address | [address] [place] [address] RD | | | [place] [address] | + + + | Home Phone | | + + + | Preferred Language | Unknown | + + + | Marital Status | Single | + + + | Denominational Affiliation | 1077 | + + + | Race | Unknown | + + + | Ethnic Group | Unknown | + + + Author + + + | Author | [employer] (Historical as of | | | 05-18-19) | + + + | Organization | [facility] (Historical as of | | | 05-18-19) [...] Team Providers + +------+ + | Care Honey Producer Name | Role | Phone | + [...] right foot, limited to breakdown of skin ([facility]) | 01/13/2018 | + + + | Cellulitis and abscess of foot | 12/15/2016 | + + + | Osteomyelitis ([facility]) | 12/15/2016 | + + + | Essential hypertension | 03/04/2015 | + + + | Type 2 diabetes mellitus, with long-term current use of insulin | 03/04/2015 | | ([facility]) | | + + + [...] +------+-------+ + | MEDICAID | [place] | [id number] | | | [address] | | | N | | | | [place], [place] | | | [place] | | | | [address] | | | CASH APPLICATIONS CLERK | | | | | + +--------+ +------+-------+ + | [facility] | YELLOW | [id number] | | | | | PLANS | [...] | Self | [birth year] | Home: | [address] | | | al/Fam | | 1965 | [phone] | [place], [place] | | | vikas | | | [address] | [address] | + +--------+ +--------+ + + | [facility] | Third | Self | [birth year] | Home: | [address] | | | Alliance Party | | 1964 | [phone]- | [place], [place] | | | Liabil | | | [address] | [address] | | | ity | | | | | + +--------+ +--------+ + +
--- OUTSIDE RECORDS SUMMARY | ~2019-08-15 | XMS | Encounter Summary ---
Demographics + + + | Address | [address] | | | [place] [address] | + + + | Home Phone [...] + + + | Author | [facility] | | | and [place] | + + + | Organization | [facility] [...] Team Providers + +------+ + | Care Communication Coordinator Name | Role | Phone | + +------+ + | Estrella Light PA-C | PCP | | + +------+ + Encounter Details +--------+ + + + + | Date | Type | Department | Care Team | Description | +--------+ + + + + | 05/12/ | Orders Only | [facility] | Provider, | | | 2019 | | SYSTEM GENERIC OP | [address] | | | | | CONVERSION [address] | [place] | | | | | [address] [place], [place] | [place] [address] | | | | | [address] | | | | | | [phone] | | | +--------+ + + + [...]
--- OUTSIDE RECORDS SUMMARY | ~2019-08-15 | XMS | Encounter Summary ---
Demographics + + + | Address | [address] | | | [place] [address] | + + + | Home Phone [...] Team Providers + +------+ + | Care Autocad Operator Name | Role | Phone | [...] | | type | [address] | [place], | | | | | | [place], | [place] [address] | | | | | | [place] [address] | Phone: | | | | | | Phone: | [phone] | | | | | | [phone] | Fax: | | | | | | Fax: | [phone] | | | | | | [phone] | | +--------+ + + + + + Reason for Visit + + + | Reason | Comments | + + + | Hematuria | | + + + Encounter Details +--------+ + + + + | Date | Type | Department | Care Team | Description | +--------+ + + + + | 10/16/ | Emergency | [facility] | Keenan Estrada MD | Hematuria, | | 2019 | | MED CTR EMERGENCY | [address] | unspecified type | | | | CENTER [address] | [place] | (Primary Dx) | | | | [place] | [id number] | | | | | [address] | | | | | | [phone] | | | +--------+ + + + [...] + +--------+ + + | Urology [facility] - | Outpatient | Routin [...] + | [facility] | [address] | [place] | [phone] | | [facility] | | [address] | | | - LABORATORY | | [...] - 1.030 | [facility] | | | Remer | | | [facility] | | [...] [address] | [place] | [phone] | | [facility] | | [address] | | | - LABORATORY | | [...]
--- OUTSIDE RECORDS SUMMARY | ~2019-08-15 | XMS | Encounter Summary ---
Demographics + + + | Address | [address] | | | [place] [address] | + + + | Home Phone [...] Team Providers + +------+ + | Care Telemarketing Agent Name | Role | Phone | + +------+ + | Estrella Light PA-C | PCP | | + +------+ + Encounter Details +--------+ + + + + | Date | Type | Department | Care Team | Description | +--------+ + + + + | 09/22/ | Anesthesia | [facility] | Ilya Dodge | | | 2015 | Event | MED CTR MP INTRA OP | MD Ebonie [address] | | | | | [address] | [facility] | | | | | [place] | [place] [address] | | | | | [address] | [phone] | | | | | [phone] | | | +--------+ + + + [...]
--- OUTSIDE RECORDS SUMMARY | ~2019-08-15 | XMS | Encounter Summary ---
Demographics + + + | Address | [address] | | | [place] [address] | + + + | Home Phone [...] Providers + +------+ + | Care Research Lab Assistant Name | Role | Phone | [...] 2016 | | GASTROENTEROLOGY | [address], [place] | | | | | [address] [place] | [address] [place] | | | | | [address] [place], [place] | [address] | | | | | [address] | | | | | | [phone] | | | +--------+ + + + [...]
--- OUTSIDE RECORDS SUMMARY | ~2019-08-15 | XMS | Encounter Summary ---
Demographics + + + | Address | [address] | | | [place] [address] | + + + | Home Phone [...] Team Providers + +------+ + | Care Varnisher Plasticoater Name | Role | Phone | + +------+ + | Estrella Light PA-C | PCP | | + +------+ + Encounter Details +--------+ + + + + | Date | Type | Department | Care Team | Description | +--------+ + + + + | 09/22/ | Anesthesia | [facility] | Ilya Dodge | | | 2015 | Event | MED CTR MP INTRA OP | MD Ebonie [address] | | | | | [address] | [facility] | | | | | [place] | [place] [address] | | | | | [address] | [phone] | | | | | [phone] | | | +--------+ + + + [...]
--- OUTSIDE RECORDS SUMMARY | ~2019-08-15 | XMS | Clinical Summary ---
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 | + + + +---+ | [...] | [employer] | MODA | [id number] | | [phone] | | Medica | | MEDICAID HMO | HEALTH | | 018-Pr | 1 | | id | | | MDCD | | esent | | | | | | HMO [place] | | | | | | + +--------+ +--------+ +---------+--------+ | [facility] | IHS | [id number] | | | | Indemn | | [...] Person | Self | [birth year] | | [address] | | | al/Fam | | 1965 | [phone] | [place] | | | vikas | | | 8 (Home) | [address] | + +--------+ +--------+ + + Advance Directives + + + + + | Type | Date Recorded | Patient | Explanation | | | | Director Public Service | | + + + + + | Power of | | | | | Machine Maintenance | | | | + + + + + | Advance | | | | | Directive | | | | + + + + +
--- OUTSIDE RECORDS SUMMARY | ~2019-08-15 | XMS | Encounter Summary ---
Demographics + + + | Address | [address] | | | [place] [address] | + + + | Home Phone [...] [facility] | | | and [place] | + [...] Providers + +------+ + | Care Information Specialist Name | Role | Phone | [...] | | | [address] [place] | [address] [place], [place] | diarrhea | | | | [address] [place], [place] | [address] | | | | | [address] | | | | | | [phone] | | | +--------+ + + + [...]
--- OUTSIDE RECORDS SUMMARY | ~2019-08-15 | XMS | Encounter Summary ---
Demographics + + + | Address | [address] | | | [place] [address] | + + + | Home Phone | | + + + | Preferred Language | Unknown | + + + | Marital Status | Single | + + + | Hindu Affiliation | 1077 | + + + [...] + +------+ + | Care Medical Assistant Prn Name | Role | Phone | + +------+ + PCP | Unavailable | + +------+ + Encounter Details +--------+ + + + + | Date | Type | Department | Care Team | Description | +--------+ + + + + | 05/21/ | Hospital | [facility] | Unknown, | | | 1992 | Encounter | MED CTR XRAY [address] | [place] | | | | | [place] | [phone] | | | | | [place] [address] | | | | | | [phone] | | | +--------+ + + + [...]
--- OUTSIDE RECORDS SUMMARY | ~2019-08-15 | XMS | Encounter Summary ---
Demographics + + + | Address | [address] | | | [place] [address] | + + + | Home Phone [...] Team Providers + +------+ + | Care Resident Services Supervisor Name | Role | Phone | [...] | diarrhea | | | | [address] [place], [place] | [address] | | | | | [address] | | | | | | [phone] | | | +--------+ + + + [...]
--- OUTSIDE RECORDS SUMMARY | ~2019-08-15 | XMS | Encounter Summary ---
Demographics + + + | Address | [address] | | | [place] [address] | + + + | Home Phone | | + + + | Preferred Language | Unknown | + + + | Marital Status | Single | + + + | Nondenominational Affiliation | 1077 | + + + [...] + +------+ + | Care Professor Of Theatre Name | Role | Phone | + +------+ + | Estrella Light PA-C | PCP | | + +------+ + Encounter Details +--------+ + + + + | Date | Type | Department | Care Team | Description | +--------+ + + + + | 09/04/ | Abstract | [facility] | Avi Forde MD | | | 2014 | | GASTROENTEROLOGY | [address], [place] | | | | | [address] [place] | [address] [place] | | | | | [address] [place], [place] | [address] | | | | | [address] | | | | | | [phone] | | | +--------+ + + + [...]
--- OUTSIDE RECORDS SUMMARY | ~2019-08-15 | XMS | Encounter Summary ---
Demographics + + + | Address | [address] | | | [place] [address] | + + + | Home Phone [...] Team Providers + +------+ + | Care Lobsterman Name | Role | Phone | + +------+ + | Estrella Light PA-C | PCP | | + +------+ + Encounter Details +--------+ + + + + | Date | Type | Department | Care Team | Description | +--------+ + + + + | 05/12/ | Orders Only | [facility] | Provider, | | | 2019 | | SYSTEM GENERIC OP | [address] | | | | | CONVERSION [address] | [place] | | | | | [address] [place], [place] | [place] [address] | | | | | [address] | | | | | | [phone] | | | +--------+ + + + [...]
--- OUTSIDE RECORDS SUMMARY | ~2019-08-15 | XMS | Encounter Summary ---
Demographics + + + | Address | [address] | | | [place] [address] | + + + | Home Phone [...] + +------+ + | Care Director Of Physiotherapy Services Name | Role | Phone | + +------+ + | Estrella Light PA-C | PCP | | + +------+ + Encounter Details +--------+---------+ + + + | Date | Type | Department | Care Team | Description | +--------+---------+ + + + | 04/12/ | Surgery | [facility] | Avi Forde MD | EGD / COLONOSCOPY - | | 2015 | | MED CTR MP INTRA OP | [address], [place] | DM (insulin) | | | | [address] | [address] [place] | | | | | [place] | [id number] | | | | | [address] | | | | | | [phone] | | | +--------+---------+ + + + [...]
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
--- OUTSIDE RECORDS SUMMARY | ~2019-08-15 | XMS | Encounter Summary ---
Demographics + + + | Address | [address] | | | [place] [address] | + + + | Home Phone | | + + + | Preferred Language | Unknown | + + + | Marital Status | Single | + + + | Amish Affiliation | 1077 | + + + [...] Team Providers + +------+ + | Care Nutrition Specialist Name | Role | Phone | [...] 2016 | | GASTROENTEROLOGY | [address], [place] | | | | | [address] [place] | [address] [place] | | | | | [address] [place], [place] | [address] | | | | | [address] | | | | | | [phone] | | | +--------+ + + + [...]
--- OUTSIDE RECORDS SUMMARY | ~2019-08-15 | XMS | Clinical Summary ---
Demographics + + + | Address | [address] [place] [address] RD | | | [place] [address] | + + + | Home Phone [...] Team Providers + +------+ + | Care Inspector Final Assembly Conveyor Line Name | Role | Phone | + [...] + + + | Overview: Problem list cps team lead utility | + + + +---+ | [...] | [employer] | MODA | [id number] | | [phone] | | Medica | | MEDICAID HMO | HEALTH | | 018-Pr | 1 | | id | | | MDCD | | esent | | | | | | HMO [place] | | | | | | + +--------+ +--------+ +---------+--------+ | [facility] | IHS | [id number] | | | | Indemn | | [...] Person | Self | [birth year] | | [address] | | | al/Fam | | 1965 | [phone] | [place] | | | vikas | | | 8 (Home) | [address] | + +--------+ +--------+ + + Advance Directives + + + + + | Type | Date Recorded | Patient | Explanation | | | | Tariff Expert | | + + + + + | Power of | | | | | Fleet Sales Manager | | | | + + + + + | Advance | | | | | Directive | | | | + + + + +
--- OUTSIDE RECORDS SUMMARY | ~2019-08-15 | XMS | Encounter Summary ---
Demographics + + + | Address | [address] | | | [place] [address] | + + + | Home Phone [...] Team Providers + +------+ + | Care Cryptologic Technician Operator/Analyst Name | Role | Phone | + [...] | 04/12/ | Telephone | [facility] | Avi Forde MD | [facility] No Show | | 2015 | | GASTROENTEROLOGY | [address], [place] | | | | | [address] [place] | [address] [place] | | | | | [address] [place], [place] | [address] | | | | | [address] | | | | | | [phone] | | | +--------+ + + + [...]
--- OUTSIDE RECORDS SUMMARY | ~2019-08-15 | XMS | Encounter Summary ---
Demographics + + + | Address | [address] | | | [place] [address] | + + + | Home Phone [...] Providers + +------+ + | Care Senior Research Manager Name | Role | Phone | [...] | | type | [address] | [place], | | | | | | [place], | [place] [address] | | | | | | [place] [address] | Phone: | | | | | | Phone: | [phone] | | | | | | [phone] | Fax: | | | | | | Fax: | [phone] | | | | | | [phone] | | +--------+ + + + + + Reason for Visit + + + | Reason | Comments | + + + | Hematuria | | + + + Encounter Details +--------+ + + + + | Date | Type | Department | Care Team | Description | +--------+ + + + + | 10/16/ | Emergency | [facility] | Keenan Estrada MD | Hematuria, | | 2019 | | MED CTR EMERGENCY | [address] | unspecified type | | | | CENTER [address] | [place] | (Primary Dx) | | | | [place] | [id number] | | | | | [address] | | | | | | [phone] | | | +--------+ + + + [...] + + +--------+ + + | Urology [facility] - | Outpatient | Routin [...] + | [facility] | [address] | [place] | [phone] | | [facility] | | [address] | | | - LABORATORY | | [...] - 1.030 | [facility] | | | [place] | | | [facility] | | [...] [address] | [place] | [phone] | | [facility] | | [address] | | | - LABORATORY | | [...]
--- OUTSIDE RECORDS SUMMARY | ~2019-08-15 | XMS | Encounter Summary ---
Demographics + + + | Address | [address] | | | [place] [address] | + + + | Home Phone [...] Team Providers + +------+ + | Care Bag Machine Tender Name | Role | Phone | + +------+ + | Estrella Light PA-C | PCP | | + +------+ + Encounter Details +--------+ + + + + | Date | Type | Department | Care Team | Description | +--------+ + + + + | 01/13/ | Hospital | [facility] | Conversion | Diagnosis unknown | | 2018 | Encounter | CONVERSION DEP [address] | Transaction, | | | | | [address] | Provider Unknown | | | | | [place] | | | | | | [address] | (Fax) | | | | | [phone] | | | +--------+ + + + [...]
--- OUTSIDE RECORDS SUMMARY | ~2019-08-15 | XMS | Encounter Summary ---
Demographics + + + | Address | [address] | | | [place] [address] | + + + | Home Phone | | + + + | Preferred Language | Unknown | + + + | Marital Status | Single | + + + | Amish Affiliation | 1077 | + + + | Race | Unknown | + + + | Ethnic Group | Unknown | + + + Author + + + | Author | [facility] | | | and [place] | + + + | Organization | [facility] | | | [...] Team Providers + +------+ + | Care General Service Officer Name | Role | Phone | + +------+ + | Estrella Light PA-C | PCP | | + +------+ + Encounter Details +--------+ + + + + | Date | Type | Department | Care Team | Description | +--------+ + + + + | 01/13/ | Hospital | [facility] | Cameron Lopez | | | 2018 - | Encounter | [facility] | MD [address]olin Hill | | | | | CLINICAL DECISION | [place], [place] | | | 01/14/ | | UNIT [facility] | [address] | | | 2017 | | [place], [place] | | | | | | [address] | | | | | | [phone] | | | +--------+ + + + [...] 01/14/181931 Date of Service: 01/14/18899 Status: Signed Entry Level Buyer: Abhinav Winters DO (Physician) The patient is 52 y.o. 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 In the emergency department at [facility], EKG showed T inversions in [...] Date of Service: 04/15/18 0900 Status: Signed Entry Level Buyer: Elizabeth Galvez, RN (Registered Nurse) Approached by [...] 01/13/181399 Date of Service: 01/13/181399 Status: Signed Entry Level Buyer: Rosalba Luo RPH (Pharmacist) Clinical Pharmacy Note: [...] + + + | KULDIP Partida RED [place] KitchensK XR CHEST 1 VIEW 01/14/2018 7:43 AM [...] | | | Basophils | performed at [facility], [address] | K/uL | LAB | | | | [address], | | | | | | [place] [address] | | | | + + + [...] | | | | [place] [address] | | | | + + + [...] EXTERNAL | | | | performed at [facility], [address] | | LAB | | | | Matt [place], | | | | | | [place] [address] | | | | + + + [...] | | | | [place] [address] | | | | + + + [...] | EXTERNAL | | | A1c | [facility] | | LAB | | | [...] | | | | | performed at [facility], [address] | | | | | | [facility], | | | | | | [place] [address] | | | | + + + [...] | | | Cholesterol | performed at [facility], [address] | | LAB | | | , | [place], | | | | | Calculated, | [place] [address] | | | | | External | [...] Man, | | | | | | [place] [address] | | | | + + + [...] | | | Fingerstick | performed at [facility];[address] | | LAB | | | | [address];[place], [place] | | | | | | [address] | | | | + + + [...] EXTERNAL | | | | performed at [facility];[address] | | LAB | | | | [address];[place], [place] | | | | | | [address] | | | | + + + [...] | | | Fingerstick | performed at [facility];[address] | | LAB | | | | [address]io [address];[place] | | | | | | [address] | | | | + + + [...] | | | | | | ACUTE VA Testing | | | | | | performed at [facility] | | | | | | [facility];[place], [place] | | | | | | [address] | | | | + + + [...] EXTERNAL | | | | performed at [facility] | | LAB | | | | Fab[address];[place], [place] | | | | | | [address] | | | | + + + [...] | | | Fingerstick | performed at [facility];[address] | | LAB | | | | [address];[place] | | | | | | [address] | | | | + + + [...] | | | Fingerstick | performed at [facility];[address] | | LAB | | | | [address];[place] | | | | | | [address] | | | | + + + [...] | | | | | | ACUTE VA Testing | | | | | | performed at [facility];[address] | | | | | | [address];[place], [place] | | | | | | [address] | | | | + + + [...] EXTERNAL | | | | performed at [facility];[address] | | LAB | | | | [address];[place], [place] | | | | | | [address] | | | | + + + [...] TV A Star: 0.46 m/s TV Dec Jenkins: 2.14 m/s2 TV Dec Time: | | | 223.61 ms TV E Star: 0.47 m/s TV E/A Ratio: 1.03 | | | Hand Picker: DIDI Authenticated by: Dereck Galicia Report | [...] (A-L): | | 16.36 ml/m2LAAs A2C: 13.19 [id number] A-L A2C: 34.91 mlLALs A2C: 4.23 cmLAAs A4C: | | 11.37 to5SCOLG A-L A4C: 29.21 mlLALs A4C: 3.75 cmRAAd: 13.57 [id number] A-L: | | 35.22 mlRAEDV MOD: 30.46 mlRALd: 4.44 cmTAPSE: 1.67 cmHR: 82.18 BPMAV maxPG: | | 3.19 mmHgAV meanP.99 mmHgAV Vmax: 0.89 m/Simran Vmean: 0.69 m/Simran VTI: 18.16 | | cmAVA Vmax: 3.34 cm2AVA (VTI): 3.51 [id number] Vmax: 0.00 cm2/m2AVAI (VTI): 0.00 | | cm2/m2LVCI Dopp: 2.41 l/[id number] Dopp: 5.00 l/minHR: 78.46 BPMLVOT maxP.34 | [...] 3 mmHgTV A Star: 0.46 m/sTV Dec Jenkins: 2.14 m/s2TV Dec Time: 223.61 | | msTV E Star: 0.47 m/sTV E/A Ratio: 1.03 Hand Picker: Nishaticated by: Dereck | | RominalaReport Date/Time: [...] A Star: 0.46 m/s | |TV Dec Jenkins: 2.14 m/s2 | |TV Dec Time: 223.61 ms | |TV E Star: 0.47 m/s | |TV E/A Ratio: 1.03 | | | |Hand Picker: [email or web address] | |Authenticated by: Dereck Galicia | [...] | | | Fingerstick | performed at [facility];[address] | [address] | | | | [address];[place], [place] | | | | | | [id number] | | | | + + + [...] | | | | | | ACUTE [facility] Testing | | | | | | performed at [facility];[address] | | [address];[place], [place] | | | | | | [address] | | | | + + + [...] | | | PCRAbnormal Testing performed at [facility];[address];[place] [address] | | + + + + +---------+ [...]
--- OUTSIDE RECORDS SUMMARY | ~2019-08-15 | XMS | Encounter Summary ---
Demographics + + + | Address | [address] | | | [place] [address] | + + + | Home Phone | | + + + | Preferred Language | Unknown | + + + | Marital Status | Single | + + + | Sikh Affiliation | [phone] | + + + | Race | Unknown | + + + | Ethnic Group | Unknown | + + + Author + + + | Author | [facility] | | | and [place] | + + + | Organization | [facility] | | [...] Team Providers + +------+ + | Care Filler And Trimmer Name | Role | Phone | + +------+ + PCP | Unavailable | + +------+ + Encounter Details +--------+ + + + + | Date | Type | Department | Care Team | Description | +--------+ + + + + | 07/19/ | Hospital | [facility] | | | | 1992 | Encounter | [facility] | | | | | | [address] | | | | | | [place] | | | | | | [address] | | | | | | [phone] | | | +--------+ + + + [...]
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
== END 2019-08-15 02:04 | disposition home or self-care (01) ==
LOC: ED 01:01
DX: Z00.00 Encounter for general adult medical examination without abnormal findings (principal); I10 Essential (primary) hypertension; E11.9 Type 2 diabetes mellitus without complications; Z87.891 Personal history of nicotine dependence; Z88.0 Allergy status to penicillin; Z79.899 Other long term (current) drug therapy; Z79.4 Long term (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
CPT/HCPCS: 85025; 99283

== ENCOUNTER 2019-09-25 03:51 | Emergency (ER) | payer OTHER ==
[~2019-09-25] VITALS: Ht 177.8 cm; Wt 74.8 kg
--- OUTSIDE RECORDS SUMMARY | ~2019-09-25 | XMS | Encounter Summary ---
Demographics + + + | Address | [address] | | | [place] [address] | + + + | Home Phone | | + + + | Preferred Language | Unknown | + + + | Marital Status | Single | + + + | Islam Affiliation | 1077 | + + + | Race | Unknown | + + + | Ethnic Group | Unknown | + + + Author + + + | Author | [facility] | | | and [place] | + + + | Organization | [facility] | | [...] Team Providers + +------+ + | Care Rn Long Term Care Name | Role | Phone | + +------+ + | Estrella Light PA-C | PCP | | + +------+ + Encounter Details +--------+ + + + + | Date | Type | Department | Care Team | Description | +--------+ + + + + | 12/14/ | Hospital | [facility] | [place], | Osteomyelitis of | | 2017 - | Encounter | [facility] | MD Pavel [address] | foot, left, acute | | | | CARE FLOOR [phone] | [address] | ([facility]); Uncontrolled | | 12/20/ | | [address] | [place] [address] | type 2 diabetes | | 2017 | | [place], [place] | [phone] | mellitus with | | | | [address] | | hyperglycemia, | | | | [phone] | | unspecified long | | | | | | term insulin use | | | | | | status ([facility]); Renal | | | | | | insufficiency | +--------+ + + + + Social [...] | Blood Pressure | 134/88 | 12/20/2016 11:45 AM | | | | | PDT | | + + + + + | Pulse | 84 | 12/20/2016 11:45 AM | | | | | PDT | | + + + + + | Temperature | 37 C (98.6 F) | 12/20/2016 11:45 AM | | | | | PDT | | + + + + + | Respiratory Rate | 16 | 12/20/2016 11:45 AM | | | | | PDT | | + + + + + | Oxygen Saturation | - | - | | + + + + + | Inhaled Oxygen | - | - | | | Concentration | | | | + + + + + | Weight | 88.5 kg (195 lb 1.8 | 12/20/2016 11:45 AM | | | | oz) | PDT | | + + + + + | Height | 177.8 cm (5' 10") | 12/20/2016 11:45 AM | | | | | PDT | | + + + + + | Body Mass Index | 28 | 12/20/2016 11:45 AM | | | | | PDT | | + + + + + documented in this encounter Discharge Summaries Bunny Chaney MD - 12/20/2016 3:39 PM PDTFormatting of this note might be different from th e original. Discharge Summaries by Bunny Chaney MD at 12/20/16 1539 Author: Bunny Chaney MD Service: (none) Author Type: Physician Filed: 12/26/16 1935 Date of Service: 12/20/161538 Status: Addendum Block Trimmer: Bunny Chaney MD (Physician) Related Notes: Original Note by Bunny Chaney MD (Physician) filed at 12/26/16 0644 [facility] Service: Hospitalist Physician Discharge Summary Patient ID: Kuldip Smith [id number] 51 y.o. 1965 Admit date: 12/14/2016 Discharge date and time: 12/20/16 Admitting Physician: Pavel Gallegos MD Discharge Physician: Bunny Chaney MD Consultants: Treatment Team: Consulting Physician: Rebeca Reza MD Admitting Provider: Pavel Gallegos MD Discharge Diagnoses: Principal Problem: Osteomyelitis (HCC) Active Problems: Essential hypertension Type II diabetes mellitus, uncontrolled (HCC) Cellulitis and abscess of foot The first problem in the assessment and plan below is a primary discharge diagnosis unless specifically stated otherwise. HPI and Hospital Course: * 51 y.o.male Admitted with L foot wet & dry gangrene with cellulitis and osteomyelitis with hx DM2, patient continuing to walk on the foot. Dr Celaya urgently performed I&D and res ection of necrotic material, 4th ray amputation. ID also consulting, patient was on IV abx n ow simplified to PO doxycycline + fluconazole. Wound vac is applied to L foot. He is stable for DC and purchase management wound that has been approved, which should be given from [facility] ec until further approval from insurance. Also has been set up for home health and wound reji ssings and follow-up with PCP. ASSESSMENT & PLAN L foot gangrene, cellulitis, osteomyelitis Now s/p 4th ray amputation, I&D on 12/15. Podiatry and ID consulting. Abx simplified to PO d oxycycline and fluconazole. Wound vac tx is applied. Given prescription for pain medication DM2 Continue home regimen of Lantus and insulin HTN Continue lisinopril, monitor. Diarrhea Probably abx-mediated. C diff neg. , not improved. 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 Personal communication requested for any clarification. Discharge Vitals: Filed Vitals: 12/19/16 2327 12/20/16 0327 12/20/16 0746 12/20/16 1144 BP: 137/76 136/68 124/74 134/88 Pulse: 89 77 72 84 Temp: 98.9 F (37.2 C) 98.9 F (37.2 C) 98.4 F (36.9 C) 98.6 F (37 C) TempSrc: Oral Axillary Oral Oral Resp: 16 Height: Weight: SpO2: 99% 95% 99% 98% Discharge Exam: General: Well nourished. Psych: Alert and oriented x 3. Calm, cooperative. Cardiovascular: Regular rate and rhythm, no murmurs, no thrills. Normal PMI. Respiratory: Clear to auscultation, no wheezing or crackles, breathing non labored. Gastrointestinal: Soft, non-tender, non-distended, positive bowel sounds. No HSM. Musculoskeletal: Left lower extremity wound VAC with mild redness below the dressing and sw elling No edema in bilateral lower extremities. No joint swelling. Neck: No JVD, Trachea midline. Neurological: Non focal. Motor grossly intact. Secondary Discharge Diagnoses AND Other Medical History: Past Medical History Diagnosis Date Diabetes mellitus, type 2 (HCC) Hypertension Past Surgical History Procedure Laterality Date Tonsillectomy Cataract extraction Vasectomy Bilateral Toe amputation Left 12/15/2016 Procedure: TOE - AMPUTATION; Surgeon: Walter Fernandez DPM; Location: [facility]; Service: Podiatry; Laterality: Left; Significant Diagnostic Studies: No results found. LABS: CBC: Lab Results Component Value Date WBC 7.36 12/20/2016 RBC 4.00* 12/20/2016 HGB 11.6* 12/20/2016 HCT 33.9* 12/20/2016 MCV 84.7 12/20/2016 MCH 28.9 12/20/2016 MCHC 34.1 12/20/2016 RDW 42.0 12/20/2016 PLT 392 12/20/2016 MPV 7.0 12/20/2016 DIFFTYPE MANUAL 12/20/2016 CMP: Lab Results Component Value Date NA 138 12/18/2016 K 3.8 12/18/2016 CL 105 12/18/2016 CO2 25 12/18/2016 ANIONGAP 12 12/18/2016 GLUF 236* 12/18/2016 BUN 6* 12/18/2016 CREATININE 0.9 12/18/2016 BCR 7 12/18/2016 CA 8.3* 12/18/2016 PROT 6.4 12/15/2016 ALB 2.2* 12/15/2016 GLOB 4.2 12/15/2016 BILITOT 0.6 12/15/2016 ALP 182* 12/15/2016 AST 9* 12/15/2016 ALT 16 12/15/2016 EGFR >60 12/18/2016 Albumin: Lab Results Component Value Date ALB 2.2* 12/15/2016 Magnesium: Lab Results Component Value Date MG 1.8 12/15/2016 Phosphorus: Lab Results Component Value Date PHOS 2.3 12/15/2016 PT/INR: No results found for: PROTIME, INR Troponin: No results found for: TROPONINI Last 3 Troponin: No results found for: TROPONINI TSH: No results found for: TSH, TSHNEO Patient Instructions: Medication List START taking these medications doxycycline 100 MG tablet QTY: 18 tablet Refills: 0 Commonly known as: VIBRA-TABS Take 1 tablet by mouth every 12 (twelve) hours. Indications: Infection of Foot in Diabetic Patient fluconazole 100 MG tablet QTY: 7 tablet Refills: 0 Commonly known as: DIFLUCAN Take 1 tablet by mouth daily. 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 lactobacillus granules QTY: 18 packet Refills: 0 Take 1 packet by mouth 2 (two) times daily. CONTINUE taking these medications LANTUS SOLOSTAR 100 UNIT/ML injection Refills: 0 Generic drug: insulin glargine lisinopril 20 MG tablet QTY: 30 tablet Refills: 11 Commonly known as: ZESTRIL Take 1 tablet by mouth daily. loperamide 2 MG capsule Refills: 0 Commonly known as: IMODIUM NOVOLOG FLEXPEN 100 UNIT/ML injection Refills: 0 Generic drug: insulin aspart sildenafil 50 MG tablet QTY: 10 tablet Refills: 11 Commonly known as: VIAGRA Take 1 tablet by mouth as needed for Erectile Dysfunction. Notes to Patient: Resume home schedule STOP taking these medications ciprofloxacin 500 MG tablet Commonly known as: CIPRO clindamycin 300 MG capsule Commonly known as: CLEOCIN Where to Get Your Medications You can get these medications from any pharmacy Bring a paper prescription for each of these medications - doxycycline 100 MG tablet - fluconazole 100 MG tablet - HYDROcodone-acetaminophen 5-325 MG per tablet - lactobacillus granules Activity: activity as tolerated Diet: Cardiac Diet Discharge took more than 35 minutes, to include final examination, discussion of admission, and preparation of prescriptions, instructions for ongoing care, follow up and dictation of summary. There are no Patient Instructions on file for this visit. Follow-up with PMD and other physicians as directed. Signed: Bunny Chaney 12/26/2016 6:41 AM documented in this encou nter Medications at Time of Discharge + + + +---------+ + + | Medication | Sig | Dispensed | Refills | Start | End Date | | | | | | Date | | + + + +---------+ + + | insulin aspart | Inject 20 Units | | 0 | | | | (NOVOLOG) 100 | under the skin 3 | | | | | | units/mL injection | times daily (before | | | | | | | meals). | | | | | + + + +---------+ + + | insulin glargine | Inject 40 Units | | 0 | | | | (LANTUS) 100 | under the skin | | | | | | units/mL injection | nightly. | | | | | | (vial) | | | | | | + + + +---------+ + + | lisinopril | Take 1 tablet by | | 0 | 09/07/20 | | | (PRINIVIL, ZESTRIL) | mouth daily. | | | 16 | | | 20 mg tablet | | | | | | + + + +---------+ + + | lisinopril | Take 5 mg by mouth | | 0 | | | | (PRINIVIL, ZESTRIL) | Daily. | | | | | | 5 mg tablet | | | | | | + + + +---------+ + + | Multiple | Take 1 tablet by | | 0 | | | | Vitamins-Minerals | mouth Daily. | | | | | | (CEROVITE SENIOR) | | | | | | | TABS | | | | | | + + + +---------+ + + | sildenafil | Take 1 tablet by | | 0 | 06/08/20 | | | (VIAGRA) 50 MG | mouth as needed for | | | 16 | | | tablet | Erectile | | | | | | | Dysfunction. | | | | | + + + +---------+ + + | aspirin 81 mg EC | Take 81 mg by mouth | | 0 | | | | tablet | Daily. | | | | 9 | + + + +---------+ + + | magnesium oxide | Take 400 mg by mouth | | 0 | | | | (MAG-OX) 400 mg | Daily. | | | | 9 | | tablet | | | | | | + + + +---------+ + + | sodium | Take 177 mLs by | 2 | 0 | 03/08/20 | | | sulfate-potassium | mouth See Admin | Bottle | | 16 | 9 | | sulfate-magnesium | Instructions. 2 | | | | | | sulfate (SUPREP | bottle kit; take 1st | | | | | | BOWEL PREP) oral | dose at 4pm and 2nd | | | | | | solution | dose at 8pm day | | | | | | | before procedure | | | | | + + + +---------+ + + | | Take 1 tablet by | | 0 | | | | sulfamethoxazole-tri | mouth 2 times daily. | | | | 9 | | methoprim (BACTRIM | | | | | | | DS) 800-160 mg per | | | | | | | tablet | | | | | | + + + +---------+ + + documented as of this encounter Progress Notes Conversion Transaction, Provider Unknown - 12/20/2016 3:39 PM PDTFormatting of this note m ight be different from the original. Case Management by Jenny Vaughan RN at 12/20/16 6667 Author: Jenny Vaughan RN Service: (none) Author Type: Registered Nurse Filed: 12/20/16 3044 Date of Service: 12/20/161538 Status: Signed Block Trimmer: Jenny Vaughan RN (Registered Nurse) 1610 - Received call from [facility] stating they are now unable to accept pa tient due to a "freeze on admits". They are aware patient has been discharged and is en rou te to home. They are still unable to accept. Call placed to [facility] OPP rega rding need for services. They state pt will need to arrange wound care/dressing changes thr ough his PCP per insurance requirements. Voicemail left for Coby at [facility] to return call. Will need to call back in morning to schedule appointment as clinic is currently closed. onver ruben Transaction, Provider Unknown - 12/20/2016 3:39 PM PDT Case Management by Mirlande Prescott RN at 12/20/16 2442 Author: Mirlande Prescott RN Service: (none) Author Type: Registered Nurse Filed: 12/21/16 0808 Date of Service: 12/20/16 1539 Status: Signed Block Trimmer: Mirlande Prescott RN (Registered Nurse) 0800: Tc to pt's PCP, Cboy Light, with [facility], to updat e about [facility] not being able to admit pt. Coby states she and Charlotte will work on getting pt the appropriate wound vac care he needs, they are going to try and get pt into O P wound therapy with [facility] or maybe to OP in WW. Coby states she will als o call [facility] as to when they can admit pt under their services. Maribel onver ruben Transaction, Provider Unknown - 12/20/2016 1:03 PM PDT Progress Notes by Rachael Molina RN at 12/20/16 1303 Author: Rachael Molina RN Service: Wound/Ostomy Care Author Type: Registered Nurse Filed: 12/20/16 1311 Date of Service: 12/20/16 1303 Status: Signed Block Trimmer: Rachael Molina RN (Registered Nurse) Wound care in to switch patient out to portable wound vac unit. This is a sol vac on l oan from [facility]. Explained to patient when his insurance approves his home vac unit, that t his sol vac is to be returned via [employer]. Instructions given in detail, voiced candelaria frias. Photo taken of tracking number and faxed to Alicia [facility] rep. Instructions on how to use the portable wound vac in both written and verbal. Extra foam dressing kit provided. Per [facility], Home Health may not be able to come out in . It is acceptable for this d ressing change to wait until then, in addition a contact layer was placed down in the patien t's wound bed for further protection. Hospital vac dc'd in [facility] express: #[id number] Rachael Molina RN, ON 12/20/2016 1:10 PM onver ruben Transaction, Provider Unknown - 12/20/2016 11:34 AM PDT Case Management by Mirlande Prescott RN at 12/20/16 1134 Author: Mirlande Prescott RN Service: (none) Author Type: Registered Nurse Filed: 12/20/16 1459 Date of Service: 12/20/16 1134 Status: Addendum Block Trimmer: Mirlande Prescott RN (Registered Nurse) Related Notes: Original Note by Mirlande Prescott RN (Registered Nurse) filed at 12/20/16 114 9 Per rounding with pt, he will be d/c home today. Pt states his mother will be providing tra nsportation home. Wound vac has been approved by [facility]. [facility] has been set up, and they have been notified about d/c, pt may not be able t o be admitted until . Pt's wound dressing is due Monday. Tc to Angie with wound care, it's not ideal that pt's dressing doesn't get changed until , but it is ok to wait. Dr Chaney was notified and agrees with plan. Tc to Coby [phone] and Charlotte [phone] with [facility]/mannie pickens nd left mssgs of pt's d/c Today. Faxed AVS to [facility] Maribel Iqra Mcgregor PT - 12/20/2016 10:07 AM PDTFormatting of this note might be different from th e original. Therapy Progress Note by Karina Zabala PT at 12/20/16 1007 Author: Karina Zabala PT Service: (none) Author Type: Physical Therapist Filed: 12/20/16 1037 Date of Service: 12/20/16 1007 Status: Signed Block Trimmer: Karina Zabala PT (Physical Therapist) 12/20/16 1007 PT Last Visit PT Received On 12/20/16 Reason for Treatment Other (comment) (L foot osteomyelitis) Requires PT Follow Up No Assistance Required 1 person Precautions LE Precaution(s) LLE Precautions/WB LLE NWB Other Precautions fall risk Other Comments Comments Pt asleep in bed upon PT arrival, aroused and agreeable to therapy and crutch willard wilkerson. Pt somewhat frustrated with changing date of when to return home. Pt dmonstrated Ana for supine-sit transfer, min-SBA for STS with crutches. Pt said he's used crutches many time s and is comfortable with them. Pt demonstrating good strength to hop up stairs. Retunred to bed. Finished session with pt reclined in bed, call light w/in reach, needs met. Cognition Overall Cognitive Status WFL Bed Mobility Supine to Sit Modified independent Sit to Supine Modified independent Transfers Sit to/from Stand Minimal assist (steadying/contact guard);Standby assist Mobility Ambulation Assistance Standby assist Maximal Ambulation Distance (feet) 15 Total Ambulation Distance (feet) 15 Distance limited by? Therapist/staff discretion Pattern Swing to Assistive Device Crutches axillary Activity Tolerance Activity Tolerance Patient tolerated treatment without report of fatigue Nurse Made Aware yes Plan Treatment/Interventions Continue per Primary PT POC Progress Progressing toward goals Recommendation Recommendations Home Assist Equipment Recommended Tub transfer bench (already has crutches at home) PT Ready for Discharge Yes onversion Transa ction, Provider Unknown - 12/19/2016 4:46 PM PDT Therapy Progress Note by Natalia Marte PT at 12/19/16 1646 Author: Natalia Marte PT Service: (none) Author Type: Physical Therapist Filed: 12/19/16 6768 Date of Service: 12/19/166 Status: Signed Block Trimmer: Natalia Marte PT (Physical Therapist) 12/19/16 1646 PT Last Visit PT Received On 12/19/16 Reason for Treatment Other (comment) (L foot osteomyelitis) Requires PT Follow Up Awaiting tx order Follow up PT Only? Yes (Assistive device assessment) Focus for Next Treatment Equipment Trial;Stair Training (bilateral axillary crutches and stair training) PT Eval/Reassessment Date 12/19/16 Assistance Required 1 person Real Estate Appraiser Supervisor Needed No Home Environment Type of Home Home one story Home Exterior Layout 1-3 steps (2 JEISON) Home Interior Layout Lives on main level with bedroom/bathroom Bathroom Shower/Tub Tub/shower unit Bathroom Toilet Raised Bathroom Equipment Grab bars outside of shower/bath;Raised toilet seat Bathroom Accessibility Not accessible Home Equipment Cane single point;Crutches-axillary Prior Function Level of [place] Independent with ADLs;Independent with IADLs;Modified independent wi th functional mobility;Community distance;Driving in community (used B axillary crutches for 6 days prior to admission) Falls in Past Year Yes (without head injury) Lives With Significant other;Mother;Father ADL Assistance Independent Home ADL's Independent Employment Other (Comment) (not currently working) RLE Assessment RLE Assessment WFL LLE Assessment LLE Assessment X (strength grossly 4/5) Cognition Overall Cognitive Status WFL Orientation Level Oriented Sensation Light Touch Deficit apparent (R plantar aspect) Proprioception Proprioception Apparent deficit (R hallux) Assessment of Patient Status Assessment of Patient Status Decreased LE strength;Decreased functional mobility;Decreased ADL status;Pain;Precautions;Decreased endurance;Decreased sensation Prognosis Should progress with skilled therapy intervention Safety Devices Safety Devices in Place Yes Type of Devices (call light within reach) Restraints Initially in Place No Precautions LE Precaution(s) LLE Precautions/WB LLE NWB Other Precautions fall risk Activity Tolerance Endurance Fair Sitting Balance Sits without support for > 30 sec Plan Treatment/Interventions Balance training;Bed mobility training;Family training;Gait trainin g;Review precautions;Stair training;Therapeutic exercise;Transfer training PT Frequency Follow-up visit only Care Duration (# of days) 7 # of days Recommendation Recommendations Home Assist;HH PT Equipment Recommended Other (Comment);Tub transfer bench Recommendation Comments Pt will likely benefit from discharging home with assist from signi ficant other and family. Pt may also benefit from home health physical therapy services due to impairment with endurance. Will trial axillary crutches tomorrow, as this will likely be more appropriate for pt due to limited accessibility at home. Will need to trial axillary cr utches with stair training to assess safety. 12/19/16 1646 PT Last Visit PT Received On 12/19/16 Reason for Treatment Other (comment) (L foot osteomyelitis) Requires PT Follow Up Awaiting tx order Follow up PT Only? Yes (Assistive device assessment) Focus for Next Treatment Equipment Trial;Stair Training (bilateral axillary crutches and stair training) PT Eval/Reassessment Date 12/19/16 Assistance Required 1 person Real Estate Appraiser Supervisor Needed No Precautions LE Precaution(s) LLE Precautions/WB LLE NWB Other Precautions fall risk Other Comments Comments Chart reviewed, initial evaluation completed. Per H&P, pt admitted with L foot ost eomyelitis and with medical history significant for DM 2. Pt underwent L 4th ray amputation on 12/05/16 with wound vac applied. Pt reports 8/10 L foot pain at rest with observble non-pit ting edema and erythema of dorsal and anterior aspects of the forefoot. Pt ambulating with F WW, adhering to L LE NWB precautions throughout, however limited in endurance. Pt would like ly benefit from axillary crutch trial due to limited access within home. Pt in supine at end of session, call light within reach. Cognition Overall Cognitive Status WFL Orientation Level Oriented Bed Mobility Rolling Standby assist Supine to Sit Standby assist Sit to Supine Min assist (1 LE into bed) Scooting Standby assist Transfers Sit to/from Stand Minimal assist (steadying/contact guard) Mobility Weight Bearing Status NWB LLE Ambulation Assistance Minimal assist Maximal Ambulation Distance (feet) 20 Total Ambulation Distance (feet) 20 Distance limited by? Patient's ability Pattern Swing through Assistive Device Walker front wheeled Modalities Modalities Other therapy Other Therapy Provided pt education on weight bearing precautions as they apply to position ing, scooting, transfers, and ambulation. Educated pt on mobility progression and safe manag ement of FWW. Educated pt on discharge planning recommendations. Pt demonstrated understandi ng. Activity Tolerance Activity Tolerance Patient limited by fatigue;Patient limited by pain Nurse Made Aware MAXX Brown Safety Devices Safety Devices in Place Yes Type of Devices (call light within reach) Restraints Initially in Place No Plan Treatment/Interventions Balance training;Bed mobility training;Family training;Gait trainin g;Review precautions;Stair training;Therapeutic exercise;Transfer training PT Frequency Follow-up visit only Care Duration (# of days) 7 # of days Recommendation Recommendations Home Assist;HH PT Equipment Recommended Other (Comment);Tub transfer bench Recommendation Comments Pt will likely benefit from discharging home with assist from signi ficant other and family. Pt may also benefit from home health physical therapy services due to impairment with endurance. Will trial axillary crutches tomorrow, as this will likely be more appropriate for pt due to limited accessibility at home. Will need to trial axillary cr utches with stair training to assess safety. Rebeca Hernandez MD - 12/19/2016 11:45 AM PDT Progress Notes by Rebeca Reza MD at 12/19/16 2826 Author: Rebeca Reza MD Service: Infectious Disease Author Type: Physician Filed: 12/20/16 0639 Date of Service: 12/19/16 4112 Status: Signed Block Trimmer: Rebeca Reza MD (Physician) [facility] Service: Infectious Disease Progress Note Hospital Day: LOS: 4 days Post-Op Day: 4 Days Post-Op SUBJECTIVE Patient Summary: Re: Diabetic left foot infection with abscess and possible osteomy elitis From ID consult note on 12/15: The patient is a 51 y.o. male with significant past medical history of type 2 diabetes mellitus, hypertension, history of hives with penicillin. On ER presentation, Temp was 98F, HR 113/min, stable BP, RR and O2 saturation. Yessi Zamora PA-C's ER findinth toe is black in discoloration, painful to touch No sensation to 1st and 2nd toe Has sensation to 3rd and 5th toe All toes except 4th, are red warm and swollen Top of foot, has open wound, yellow drainage and foul odor Plantar surface has white/yellow discoloration - this are is moist Redness and warmth to mid plantar surface Redness also to medial/lateral ankle with mild swelling ER work up showed WBC 19,460, 87% neutrophils. ESR 130, CRP 16. Glucose 635, creatinine 1 .4. Lactic acid 1. ABG showed pH 7.315, p)2 73, HCO3 22. Serum ketones were negative. MRI showed probable osteomyelitis of the 4th toe with phlegmon/abscess at the 3rd and 4th MT. Margarita ramirez received IV clindamycin in the ER. He was admitted to the hospitalist service and placed on IV vancomycin and levofloxacin. Podiatry is being consulted. Tmax in 24 hours is 100F; he has remained hemodynamically stable. ABG shows pH is 6.8 wit h HCO3 9. Glucose is 392 with BUN 12/creatinine 1. Patient is currently reticent, not providing much information and acting annoyed with marquez ledezma questions. He states that he did not have trauma to the left foot area and he did not have ill fitting shoes. He appears to have peripheral neuropathy and had a blister at his le ft foot that got worse. He denies having had fever, chills, sweats at home. He denies abdomi nal pain, nausea, vomiting, diarrhea, cough, chest pain or shortness of breath. On 12/15, antibiotics broadened to IV vancomycin and meropenem s/p left 4th toe/MT osteomyelitis. Events Overnight: Irritable today because he cannot go home without wound VAC approva l. Pain at foot under control. No nausea, vomiting, abdominal pain. Diarrhea being addres sed with Imodium with negative C diff Scheduled Medications doxycycline 100 mg Oral 2 times per day enoxaparin 40 mg Subcutaneous Q24H famotidine 20 mg Oral BID Or famotidine 20 mg Intravenous BID fluconazole 100 mg Oral Daily insulin glargine 20 Units Subcutaneous Nightly insulin lispro (human) 0-14 Units Subcutaneous TID AC insulin lispro (human) 0-7 Units Subcutaneous Nightly insulin lispro (human) 15 Units Subcutaneous TID AC lactobacillus 1 packet Oral BID lisinopril 20 mg Oral Daily Continuous Infusions dextrose sodium chloride (IV) 110 mL/hr at 12/19/16 0944 PRN Medications acetaminophen OR acetaminophen, dextrose, dextrose, dextrose, glucagon, glucagon, HYDRO codone-acetaminophen OR HYDROcodone-acetaminophen, HYDROmorphone OR HYDROmorphone, l idocaine, loperamide, ondansetron OR [DISCONTINUED] ondansetron, polyethylene glycol, sa line lock IV - when tolerating PO fluids AND sodium chloride (PF), zolpidem OBJECTIVE Vital Signs: BP 151/85 mmHg | Pulse 76 | Temp(Src) 98.2 F (36.8 C) (Oral) | Resp 18 | Ht 1.778 m (5' 10") | Wt 88.5 kg (195 lb 1.7 oz) | BMI 27.99 kg/m2 | SpO2 98% Temp: [98.2 F (36.8 C)-98.9 F (37.2 C)] 98.2 F (36.8 C) (12/19 113) BP: (112-165)/(63-96) 151/85 mmHg (12/19 113) Heart Rate: [72-92] 76 (12/19 113) Resp: [18] 18 (12/19 113) SpO2: [97 %-99 %] 98 % (12/19 113) Weight: [88.5 kg (195 lb 1.7 oz)] 88.5 kg (195 lb 1.7 oz) (12/19 0358) Physical Exam Vital signs reviewed General: Not in physical distress HEENT: Normocephalic. Anicteric sclerae. No oral thrush Lungs: normal respiratory effort CV: RRR Abdomen: No distention. Positive bowel sounds. Soft. No tenderness Left foot: Wound VAC applied. Brownish discoloration at periwound area. No lymphangitic s treaking noted at left leg Neurologic: Oriented x 3, no focal weakness Psychiatric: Irritable and anxious DATA CBC: Lab Results Component Value Date WBC 10.99 12/18/2016 RBC 3.92* 12/18/2016 HGB 11.2* 12/18/2016 HCT 33.6* 12/18/2016 MCV 85.9 12/18/2016 MCH 28.7 12/18/2016 MCHC 33.4 12/18/2016 RDW 41.1 12/18/2016 PLT 341 12/18/2016 MPV 7.6 12/18/2016 DIFFTYPE AUTOMATED 12/18/2016 WBC: Lab Results Component Value Date WBC 10.99 12/18/2016 NEUTROABS 8.38* 12/18/2016 LYMPHSABS 1.32 12/18/2016 LYMPHOPCT 12.04 12/18/2016 MONOPCT 6.15 12/18/2016 EOSABS 0.52* 12/18/2016 EOSPCT 4.73 12/18/2016 BASOSABS 0.10 12/18/2016 BASOPCT 0.86 12/18/2016 PLTEST ADEQUATE 12/14/2016 COMDIFF SLIDE SCANNED, AGREES WITH AUTOMATED RESULTS. 12/14/2016 CMP: Lab Results Component Value Date NA 138 12/18/2016 K 3.8 12/18/2016 CL 105 12/18/2016 CO2 25 12/18/2016 ANIONGAP 12 12/18/2016 GLUF 236* 12/18/2016 BUN 6* 12/18/2016 CREATININE 0.9 12/18/2016 BCR 7 12/18/2016 CA 8.3* 12/18/2016 PROT 6.4 12/15/2016 ALB 2.2* 12/15/2016 GLOB 4.2 12/15/2016 BILITOT 0.6 12/15/2016 ALP 182* 12/15/2016 AST 9* 12/15/2016 ALT 16 12/15/2016 EGFR >60 12/18/2016 Microbiology Data: 12/15 MRSA nasal PCR positive 12/15 Left foot wound culture (superficial) 3+ Strep agalactiae, Marie albicans 12/15 anaerobic cultures (OR) 2+ Strep agalactiae 12/14 Blood cultures with no growth to date 12/15 Urine culture with no growth Pathology: 12/16/2015. Osteomyleitis(sic). FINAL PATHOLOGIC DIAGNOSIS: A. 4th metatarsal head: - Benign cortical bone, negative for acute osteomyelitis. B. Gangrenous toe, disarticulation: - Epithelial ulcer with dermal gangrenous necrosis, negative for acute osteomyelitis. Radiology Data: Impression 1. Abnormal area of fluid signal, soft tissue edema and thickening at the distal lateral do rsum of the foot suspicious for phlegmon and/or developing abscess measuring 3.9 x 3.8 x 1.2 cm. Similar smaller ill-defined area of signal abnormality at the dorsal proximal aspect of the fourth toe. 2. Deformity and abnormal decreased signal at the fourth middle phalanx. Considerations inc lude chronic osteomyelitis versus deformity from old surgery or old trauma. 3. Mild degree of marrow edema at the distal aspect of the third and fourth metatarsals and proximal aspect of the third and fourth proximal phalanges. Reactive edema versus early ost eomyelitis. 4. Focal marrow edema and erosion at the distal medial aspect of the first metatarsal. Cons iderations include infection, gout or inflammatory arthritis. Comparison with any available prior foot imaging may be helpful in establishing chronicity. [facility] MUSCULOSKELETAL RADIOLOGY SECTION Electronically signed by Lopez Greer MD on Dec 15 2016 9:30AM Referring Provider Line: [phone] ID: [id number] MRI foot left without contrast [[id number]] Impression 1. Recent amputation of the LEFT 4th toe. 2. No radiographic evidence of residual osteomyelitis in the remaining ossicles of the LEF T forefoot. 3. Moderately extensive vascular calcifications. X-ray foot left [[id number]] PROBLEM LIST Principal Problem: Osteomyelitis (HCC) Active Problems: Essential hypertension Type II diabetes mellitus, uncontrolled (HCC) Cellulitis and abscess of foot ASSESSMENT & PLAN Left diabetic foot infection: Cellulitis, gangrene and osteomyelitis involving the fourth t oe -ff up ABG was reassuring with normal lactic acid -s/p amputation of left foot 4th ray on 12/[address] Fernandez; wound is healing with cellu litis improving. Wound VAC applied. Noted wound care nurse findings. -MRSA nasal PCR is positive; superficial and OR wound culture growth of Strep agalactiae w ith Marie albicans on superficial wound culture -Blood cultures with no growth to date; fever curve better with leukocytosis resolved -Pathology shows no evidence of osteomyelitis; X-ray of left foot shows no residual osteom yelitis post-op -Off meropenem -was on vancomycin, now on po doxycycline; continue 14 of antibiotics post-op; current sto p date is 12/29. Ultimate duration of antibiotic Rx will depend on wound healing/clinical st atus -fluconazole x 7 days -ID ff up in 1-2 weeks of discharge -contact precautions -glycemic control per hospitalist/primary care History of penicillin allergy -described as hives; not known if he can tolerate cephalosporins. Not open to cephalospori n challenge Loose stools -C diff negative; Imodium, probiotics Case discussed with Dr. Archer Code Status: Full Code REBECA REZA MD 12/19/2016 rowDell harmon DO - 12/19/2016 11:03 AM PDT Progress Notes by Dell Archer DO at 12/19/16 1103 Author: Dell Archer DO Service: Hospitalist Author Type: Physician Filed: 12/19/16 1106 Date of Service: 12/19/16 1103 Status: Signed Block Trimmer: Dell Archer DO (Physician) PROGRESS NOTE 12/19/2016 for Kuldip Smith on the hospitalist service. Admitted with L foot wet & dry gangrene with cellulitis and osteomyelitis with hx DM2, kendall ent continuing to walk on the foot. Dr Celaya urgently performed I&D and resection of ne crotic material, 4th ray amputation. ID also consulting, patient was on IV abx now simplifie d to PO doxycycline + fluconazole. Wound vac is applied to L foot. He is stable for DC which will be delayed by wound vac approval. ASSESSMENT & PLAN L foot gangrene, cellulitis, osteomyelitis Now s/p 4th ray amputation, I&D on 12/15. Podiatry and ID consulting. Abx simplified to PO d oxycycline and fluconazole. Wound vac tx is applied - will need insurance approval. DM2 ISS + glargine 20 units nightly, monitor blood glucose levels. HTN Continue lisinopril, monitor. Diarrhea Probably abx-mediated. C diff neg. Okay to give Imodium. Problem list: Principal Problem: Osteomyelitis (HCC) Active Problems: Essential hypertension Type II diabetes mellitus, uncontrolled (HCC) Cellulitis and abscess of foot Length of stay: 4 days DVT prophylaxis: enox Code status: full code Disposition: inpatient SUBJECTIVE Patient seen/examined with rounding team, lying in bed, spouse present, he expresses dissat isfaction that he won't be able to DC today. OBJECTIVE Temp: [98.2 F (36.8 C)-98.9 F (37.2 C)] 98.5 F (36.9 C) (12/19 740) BP: (112-165)/(63-96) 112/63 mmHg (12/19 740) Heart Rate: [72-92] 72 (12/19 740) Resp: [16-18] 18 (12/19 740) SpO2: [96 %-99 %] 98 % (12/19 740) Weight: [88.5 kg (195 lb 1.7 oz)] 88.5 kg (195 lb 1.7 oz) (12/19 357) Physical exam: NAD AOx3 HENT - MMM, conjunctivae normal Heart - RRR no murmur, no JVD, normal radial / DP pulses B/L Lungs - CTAB/L no WRR, good effort Abd - SNTND +BSx4 Ext - Good ROM no tenderness or edema Skin - L foot wound vac over area of 4th ray, no surrounding erythema, warmth, tenderness CBC: Lab Results Component Value Date WBC 10.99 12/18/2016 RBC 3.92* 12/18/2016 HGB 11.2* 12/18/2016 HCT 33.6* 12/18/2016 MCV 85.9 12/18/2016 MCH 28.7 12/18/2016 MCHC 33.4 12/18/2016 RDW 41.1 12/18/2016 PLT 341 12/18/2016 MPV 7.6 12/18/2016 DIFFTYPE AUTOMATED 12/18/2016 BMP: Lab Results Component Value Date NA 138 12/18/2016 K 3.8 12/18/2016 CL 105 12/18/2016 CO2 25 12/18/2016 ANIONGAP 12 12/18/2016 GLUF 236* 12/18/2016 BUN 6* 12/18/2016 CREATININE 0.9 12/18/2016 BCR 7 12/18/2016 CA 8.3* 12/18/2016 EGFR >60 12/18/2016 MEDICATIONS doxycycline 100 mg Oral 2 times per day enoxaparin 40 mg Subcutaneous Q24H famotidine 20 mg Oral BID Or famotidine 20 mg Intravenous BID fluconazole 100 mg Oral Daily insulin glargine 20 Units Subcutaneous Nightly insulin lispro (human) 0-14 Units Subcutaneous TID AC insulin lispro (human) 0-7 Units Subcutaneous Nightly insulin lispro (human) 15 Units Subcutaneous TID AC lactobacillus 1 packet Oral BID lisinopril 20 mg Oral Daily dextrose sodium chloride (IV) 110 mL/hr at 12/19/16 0944 PRN: acetaminophen OR acetaminophen, dextrose, dextrose, dextrose, glucagon, glucagon, HYDRO codone-acetaminophen OR HYDROcodone-acetaminophen, HYDROmorphone OR HYDROmorphone, l idocaine, loperamide, ondansetron OR [DISCONTINUED] ondansetron, polyethylene glycol, sa line lock IV - when tolerating PO fluids AND sodium chloride (PF), zolpidem Signature: Dell Archer DO 12/19/2016 11:03 AM onversion Transaction , Provider Unknown - 12/19/2016 9:15 AM PDT Case Management by Jenny Vaughan RN at 12/19/16914 Author: Jenny Vaughan RN Service: (none) Author Type: Registered Nurse Filed: 12/19/16 1103 Date of Service: 12/19/16914 Status: Addendum Block Trimmer: Jenny Vaughan RN (Registered Nurse) Related Notes: Original Note by Jenny Vaughan RN (Registered Nurse) filed at 12/19/16 [phone] - [facility]. She wi ll be following patient once he is discharged and requests to be notified when patient is di scharging. Her voicemail is secure and she gives permission to leave a detailed message, if needed. She is also aware [facility] will be following for home health services. I also contacted [facility] to update on patient status and they are able to accept patient. Face to face order faxed ([phone]) [facility] RN [phone] Alicia with [facility] notified of wound vac placement. Auth form signed by hospitalist and faxed to Alicia. Lilly with [facility] notified of patient discharging on oral antibiotics. onver ruben Transaction, Provider Unknown - 12/18/2016 6:45 PM PDT Nurse Progress Note by Gerber Hay RN at 12/18/161844 Author: Gerber Hay RN Service: (none) Author Type: Registered Nurse Filed: 12/18/161847 Date of Service: 12/18/161844 Status: Signed Block Trimmer: Gerber Hay RN (Registered Nurse) Pt resting comfortably, tx with hydromorphone for pain x3. VSS. Will continue to monitor. GERBER HAY RN Dell Jones DO - 12/18/2016 9:29 AM PDTFormatting of this note might be different from the kar ginal. Progress Notes by Dell Archer DO at 12/18/16928 Author: Dell Archer DO Service: Hospitalist Author Type: Physician Filed: 12/18/16933 Date of Service: 12/18/16928 Status: Addendum Block Trimmer: Dell Archer DO (Physician) Related Notes: Original Note by Dell Archer DO (Physician) filed at 12/18/16930 PROGRESS NOTE 12/18/2016 for Kuldip Smith on the hospitalist service. ASSESSMENT & PLAN L foot gangrene, cellulitis, osteomyelitis Now s/p 4th ray amputation, I&D on 12/15. Podiatry and ID consulting. He's on vancomycin and fluconazole. DM2 ISS + glargine 20 units nightly, monitor blood glucose levels. HTN Continue lisinopril, monitor. Diarrhea Probably abx-mediated. C diff neg. Okay to give Imodium. Problem list: Principal Problem: Osteomyelitis (HCC) Active Problems: Essential hypertension Type II diabetes mellitus, uncontrolled (HCC) Cellulitis and abscess of foot Length of stay: 3 days DVT prophylaxis: enox Code status: full code Disposition: inpatient SUBJECTIVE Patient seen/examined, lying in bed, spouse present, feeling better, pain manageable, no f/ c, has been having diarrhea without abd pain. OBJECTIVE Temp: [97.6 F (36.4 C)-99.2 F (37.3 C)] 98.7 F (37.1 C) (12/18 810) BP: (140-160)/(80-90) 142/85 mmHg (12/18 810) Heart Rate: [71-99] 71 (12/18 810) Resp: [16-20] 16 (12/18 810) SpO2: [94 %-98 %] 95 % (12/18 810) Weight: [88.451 kg (195 lb)] 88.451 kg (195 lb) (12/18 438) Physical exam: NAD AOx3 HENT - MMM, conjunctivae normal Heart - RRR no murmur, no JVD, normal radial / DP pulses B/L Lungs - CTAB/L no WRR, good effort Abd - SNTND +BSx4 Ext - Good ROM no tenderness or edema Skin - L foot bandaged CBC: Lab Results Component Value Date WBC 10.99 12/18/2016 RBC 3.92* 12/18/2016 HGB 11.2* 12/18/2016 HCT 33.6* 12/18/2016 MCV 85.9 12/18/2016 MCH 28.7 12/18/2016 MCHC 33.4 12/18/2016 RDW 41.1 12/18/2016 PLT 341 12/18/2016 MPV 7.6 12/18/2016 DIFFTYPE AUTOMATED 12/18/2016 BMP: Lab Results Component Value Date NA 138 12/18/2016 K 3.8 12/18/2016 CL 105 12/18/2016 CO2 25 12/18/2016 ANIONGAP 12 12/18/2016 GLUF 236* 12/18/2016 BUN 6* 12/18/2016 CREATININE 0.9 12/18/2016 BCR 7 12/18/2016 CA 8.3* 12/18/2016 EGFR >60 12/18/2016 MEDICATIONS enoxaparin 40 mg Subcutaneous Q24H famotidine 20 mg Oral BID Or famotidine 20 mg Intravenous BID fluconazole 100 mg Oral Daily insulin glargine 20 Units Subcutaneous Nightly insulin lispro (human) 0-14 Units Subcutaneous TID AC insulin lispro (human) 0-7 Units Subcutaneous Nightly insulin lispro (human) 15 Units Subcutaneous TID AC lisinopril 20 mg Oral Daily vancomycin 17 mg/kg Intravenous Q12H dextrose sodium chloride (IV) 110 mL/hr at 12/16/16 1817 PRN: acetaminophen OR acetaminophen, dextrose, dextrose, dextrose, glucagon, glucagon, HYDRO codone-acetaminophen OR HYDROcodone-acetaminophen, HYDROmorphone OR HYDROmorphone, l idocaine, ondansetron OR [DISCONTINUED] ondansetron, polyethylene glycol, saline lock IV - when tolerating PO fluids AND sodium chloride (PF), zolpidem Signature: Dell Archer DO 12/18/2016 9:29 AM Walter Stover ld - 12/18/2016 8:55 AM PDT Progress Notes by Walter Fernandez DPM at 12/18/16854 Author: Walter Fernandez DPM Service: Podiatry Author Type: Doctor of Podiatric Medi cine Filed: 12/18/16899 Date of Service: 12/18/16854 Status: Signed Block Trimmer: Walter Fernandez DPM (Doctor of Podiatric Medicine) [facility] Service: Podiatry Progress Note Hospital Day: LOS: 3 days Post-Op Day: 3 Day Post-Op SUBJECTIVE Patient Summary: Events Overnight: No FCNV or SOB. Pain is controlled. Culture is pending. Xray is clear margin for osteomyelitis. Scheduled Medications enoxaparin 40 mg Subcutaneous Q24H famotidine 20 mg Oral BID Or famotidine 20 mg Intravenous BID fluconazole 100 mg Oral Daily insulin glargine 20 Units Subcutaneous Nightly insulin lispro (human) 0-14 Units Subcutaneous TID AC insulin lispro (human) 0-7 Units Subcutaneous Nightly insulin lispro (human) 15 Units Subcutaneous TID AC lisinopril 20 mg Oral Daily vancomycin 17 mg/kg Intravenous Q12H Continuous Infusions dextrose sodium chloride (IV) 110 mL/hr at 12/16/161816 PRN Medications acetaminophen OR acetaminophen, dextrose, dextrose, dextrose, glucagon, glucagon, HYDRO codone-acetaminophen OR HYDROcodone-acetaminophen, HYDROmorphone OR HYDROmorphone, l idocaine, ondansetron OR [DISCONTINUED] ondansetron, polyethylene glycol, saline lock IV - when tolerating PO fluids AND sodium chloride (PF), zolpidem OBJECTIVE Vital Signs: BP 142/85 mmHg | Pulse 71 | Temp(Src) 98.7 F (37.1 C) (Oral) | Resp 16 | Ht 1.778 m (5' 10") | Wt 88.451 kg (195 lb) | BMI 27.98 kg/m2 | SpO2 95% Temp: [97.6 F (36.4 C)-99.2 F (37.3 C)] 98.7 F (37.1 C) (12/18 810) BP: (140-160)/(80-90) 142/85 mmHg (12/18 810) Heart Rate: [71-99] 71 (12/18 810) Resp: [16-20] 16 (12/18 810) SpO2: [94 %-98 %] 95 % (12/18 810) Weight: [88.451 kg (195 lb)] 88.451 kg (195 lb) (12/18 438) Physical Exam Constitutional: He appears well-developed and well-nourished. HENT: Head: Normocephalic and atraumatic. Cardiovascular: Pulses: Dorsalis pedis pulses are 1+ on the right side, and 1+ on the left side. Posterior tibial pulses are 1+ on the right side, and 1+ on the left side. Musculoskeletal: Right ankle: He exhibits decreased range of motion. Left ankle: He exhibits decreased range of motion. Right foot: Protective Sensation: 5 sites tested.0 sites sensed. Left foot: Protective Sensation: 5 sites tested. 0 sites sensed. Feet: Lymphadenopathy: No LE lymphadenopathy. Skin: Psychiatric: He has a normal mood and affect. His speech is normal and behavior is normal. Thought content normal. Nursing note and vitals reviewed. DATA CBC: Lab Results Component Value Date WBC 10.99 12/18/2016 RBC 3.92* 12/18/2016 HGB 11.2* 12/18/2016 HCT 33.6* 12/18/2016 MCV 85.9 12/18/2016 MCH 28.7 12/18/2016 MCHC 33.4 12/18/2016 RDW 41.1 12/18/2016 PLT 341 12/18/2016 MPV 7.6 12/18/2016 DIFFTYPE AUTOMATED 12/18/2016 PROBLEM LIST Principal Problem: Osteomyelitis (HCC) Active Problems: Essential hypertension Type II diabetes mellitus, uncontrolled (HCC) Cellulitis and abscess of foot ASSESSMENT & PLAN PO day 3 ray resection 4th left with deep I and D doing well with acute infection respondin g well. Wound VAC is applied and functioning well. Abx as per ID. Wound and acute infecti on now stable to manage from home with home health care. Dr. David DPM in [place] take s care of this patient and can resume wound care to ease patent travel. Disposition: Stable Code Status: Full Code WALTER FERNANDEZ DPM 12/18/2016 onversion Ledesma saction, Provider Unknown - 12/18/2016 8:46 AM PDTFormatting of this note might be differen t from the original. Progress Notes by Destini Vargas RPH at 12/18/16845 Author: Destini Vargas RPH Service: (none) Author Type: Pharmacist Filed: 12/18/16845 Date of Service: 12/18/16845 Status: Signed Block Trimmer: Destini Vargas RPH (Pharmacist) Day 5 Vanco Tx. Todays Scr= 0.9, WBC= 10.99 with estim CrCl= 111.2 ml/min. Last Vanco Tr 12/17 PM = 17.4 (15-20mcg/ml). No changes today. Pharmacist; DESTINI VARGAS 12/18/2016 8:45 AM arRebeca lynn MD - 12/18/2016 8:21 AM PDT Progress Notes by Rebeca Reza MD at 12/18/16820 Author: Rebeca Reza MD Service: Infectious Disease Author Type: Physician Filed: 12/18/16 1108 Date of Service: 12/18/16820 Status: Signed Block Trimmer: Rebeca Reza MD (Physician) [facility] Service: Infectious Disease Progress Note Hospital Day: LOS: 3 days Post-Op Day: 3 Days Post-Op SUBJECTIVE Patient Summary: Re: Diabetic left foot infection with abscess and possible osteomy elitis From ID consult note on 12/15: The patient is a 51 y.o. male with significant past medical history of type 2 diabetes mellitus, hypertension, history of hives with penicillin. On ER presentation, Temp was 98F, HR 113/min, stable BP, RR and O2 saturation. Yessi Zamora PA-C's ER findinth toe is black in discoloration, painful to touch No sensation to 1st and 2nd toe Has sensation to 3rd and 5th toe All toes except 4th, are red warm and swollen Top of foot, has open wound, yellow drainage and foul odor Plantar surface has white/yellow discoloration - this are is moist Redness and warmth to mid plantar surface Redness also to medial/lateral ankle with mild swelling ER work up showed WBC 19,460, 87% neutrophils. ESR 130, CRP 16. Glucose 635, creatinine 1 .4. Lactic acid 1. ABG showed pH 7.315, p)2 73, HCO3 22. Serum ketones were negative. MRI showed probable osteomyelitis of the 4th toe with phlegmon/abscess at the 3rd and 4th MT. Margarita ramirez received IV clindamycin in the ER. He was admitted to the hospitalist service and placed on IV vancomycin and levofloxacin. Podiatry is being consulted. Tmax in 24 hours is 100F; he has remained hemodynamically stable. ABG shows pH is 6.8 wit h HCO3 9. Glucose is 392 with BUN 12/creatinine 1. Patient is currently reticent, not providing much information and acting annoyed with jenniferi darien questions. He states that he did not have trauma to the left foot area and he did not have ill fitting shoes. He appears to have peripheral neuropathy and had a blister at his le ft foot that got worse. He denies having had fever, chills, sweats at home. He denies abdomi nal pain, nausea, vomiting, diarrhea, cough, chest pain or shortness of breath. On 12/15, antibiotics broadened to IV vancomycin and meropenem s/p left 4th toe/MT osteomyelitis. Events Overnight: Fever curve is better. Cleared by Podiatry to go home with wound care. Has diarrhea, C. difficile negative. No abdominal pain, nausea, vomiting No pruritus, skin rash Scheduled Medications enoxaparin 40 mg Subcutaneous Q24H famotidine 20 mg Oral BID Or famotidine 20 mg Intravenous BID fluconazole 100 mg Oral Daily insulin glargine 20 Units Subcutaneous Nightly insulin lispro (human) 0-14 Units Subcutaneous TID AC insulin lispro (human) 0-7 Units Subcutaneous Nightly insulin lispro (human) 15 Units Subcutaneous TID AC lisinopril 20 mg Oral Daily vancomycin 17 mg/kg Intravenous Q12H Continuous Infusions dextrose sodium chloride (IV) 110 mL/hr at 12/16/161816 PRN Medications acetaminophen OR acetaminophen, dextrose, dextrose, dextrose, glucagon, glucagon, HYDRO codone-acetaminophen OR HYDROcodone-acetaminophen, HYDROmorphone OR HYDROmorphone, l idocaine, ondansetron OR [DISCONTINUED] ondansetron, polyethylene glycol, saline lock IV - when tolerating PO fluids AND sodium chloride (PF), zolpidem OBJECTIVE Vital Signs: BP 142/85 mmHg | Pulse 71 | Temp(Src) 98.7 F (37.1 C) (Oral) | Resp 16 | Ht 1.778 m (5' 10") | Wt 88.451 kg (195 lb) | BMI 27.98 kg/m2 | SpO2 95% Temp: [97.6 F (36.4 C)-99.2 F (37.3 C)] 98.7 F (37.1 C) (12/18 810) BP: (140-160)/(80-90) 142/85 mmHg (12/18 810) Heart Rate: [71-99] 71 (12/18 810) Resp: [16-20] 16 (12/18 810) SpO2: [94 %-98 %] 95 % (12/18 810) Weight: [88.451 kg (195 lb)] 88.451 kg (195 lb) (12/18 438) Physical Exam Vital signs reviewed General: Not in physical distress HEENT: Normocephalic. Anicteric sclerae. No oral thrush Lungs: normal respiratory effort CV: RRR Abdomen: No distention. Positive bowel sounds. Soft. No tenderness Left foot: Wound VAC applied. Brownish discoloration at periwound area. No lymphangitic s treaking noted at left leg Neurologic: Oriented x 3, no focal weakness Psychiatric: Irritable and anxious DATA CBC: Lab Results Component Value Date WBC 10.99 12/18/2016 RBC 3.92* 12/18/2016 HGB 11.2* 12/18/2016 HCT 33.6* 12/18/2016 MCV 85.9 12/18/2016 MCH 28.7 12/18/2016 MCHC 33.4 12/18/2016 RDW 41.1 12/18/2016 PLT 341 12/18/2016 MPV 7.6 12/18/2016 DIFFTYPE AUTOMATED 12/18/2016 WBC: Lab Results Component Value Date WBC 10.99 12/18/2016 NEUTROABS 8.38* 12/18/2016 LYMPHSABS 1.32 12/18/2016 LYMPHOPCT 12.04 12/18/2016 MONOPCT 6.15 12/18/2016 EOSABS 0.52* 12/18/2016 EOSPCT 4.73 12/18/2016 BASOSABS 0.10 12/18/2016 BASOPCT 0.86 12/18/2016 PLTEST ADEQUATE 12/14/2016 COMDIFF SLIDE SCANNED, AGREES WITH AUTOMATED RESULTS. 12/14/2016 CMP: Lab Results Component Value Date NA 138 12/18/2016 K 3.8 12/18/2016 CL 105 12/18/2016 CO2 25 12/18/2016 ANIONGAP 12 12/18/2016 GLUF 236* 12/18/2016 BUN 6* 12/18/2016 CREATININE 0.9 12/18/2016 BCR 7 12/18/2016 CA 8.3* 12/18/2016 PROT 6.4 12/15/2016 ALB 2.2* 12/15/2016 GLOB 4.2 12/15/2016 BILITOT 0.6 12/15/2016 ALP 182* 12/15/2016 AST 9* 12/15/2016 ALT 16 12/15/2016 EGFR >60 12/18/2016 Vanco trough 17.4 Microbiology Data: 12/15 MRSA nasal PCR positive 12/15 Left foot wound culture (superficial) 3+ Strep agalactiae, Marie albicans 12/15 anaerobic cultures (OR) 2+ Strep agalactiae 12/14 Blood cultures with no growth to date 12/15 Urine culture with no growth Radiology Data: Impression 1. Abnormal area of fluid signal, soft tissue edema and thickening at the distal lateral do rsum of the foot suspicious for phlegmon and/or developing abscess measuring 3.9 x 3.8 x 1.2 cm. Similar smaller ill-defined area of signal abnormality at the dorsal proximal aspect of the fourth toe. 2. Deformity and abnormal decreased signal at the fourth middle phalanx. Considerations inc lude chronic osteomyelitis versus deformity from old surgery or old trauma. 3. Mild degree of marrow edema at the distal aspect of the third and fourth metatarsals and proximal aspect of the third and fourth proximal phalanges. Reactive edema versus early ost eomyelitis. 4. Focal marrow edema and erosion at the distal medial aspect of the first metatarsal. Cons iderations include infection, gout or inflammatory arthritis. Comparison with any available prior foot imaging may be helpful in establishing chronicity. RADIA MUSCULOSKELETAL RADIOLOGY SECTION Electronically signed by Lopez Greer MD on Dec 15 2016 9:30AM Referring Provider Line: [phone] ID: [id number] MRI foot left without contrast [[id number]] Impression 1. Recent amputation of the LEFT 4th toe. 2. No radiographic evidence of residual osteomyelitis in the remaining ossicles of the LEF T forefoot. 3. Moderately extensive vascular calcifications. X-ray foot left [[id number]] PROBLEM LIST Principal Problem: Osteomyelitis (HCC) Active Problems: Essential hypertension Type II diabetes mellitus, uncontrolled (HCC) Cellulitis and abscess of foot ASSESSMENT & PLAN Left diabetic foot infection: Cellulitis, gangrene and osteomyelitis involving the fourth t oe -ff up ABG was reassuring with normal lactic acid -s/p amputation of left foot 4th ray on 12/[address] Fernandez; wound is healing with cellu litis improving. Wound VAC applied. -MRSA nasal PCR is positive; superficial and OR wound culture growth of Strep agalactiae w ith Marie albicans on superficial wound culture -Blood cultures with no growth to date; fever curve better with leukocytosis resolved -Pathology in process; X-ray of left foot shows no residual osteomyelitis post-op -Off meropenem -transition vancomycin to po doxycycline; day 4 of 14 of antibiotics post-op -fluconazole x 7 days -if discharged in am, ID ff up in 1-2 weeks -contact precautions History of penicillin allergy -described as hives; not known if he can tolerate cephalosporins. Not open to cephalospori n challenge Loose stools -C diff negative; Imodium, probiotics Case discussed with Dr. Archer and nursing staff Code Status: Full Code REBECA REZA MD 12/18/2016 onversion Ledesma saction, Provider Unknown - 12/17/2016 10:47 PM PDTFormatting of this note might be differen t from the original. Pharmacy Note by Jihan Jacinto RPH at 12/17/16 6494 Author: Jihan Jacinto RPH Service: Pharmacy Author Type: Pharmacist Filed: 12/17/162246 Date of Service: 12/17/162246 Status: Signed Block Trimmer: Jihan Jacinto RPH (Pharmacist) Clinical Pharmacy Note: Pharmacy Dosing Vancomycin; Day 4 Weight: 89.9 kg WBC: 14.59 CREATININE: 0.9 (12/17/16 05) Estimated creatinine clearance - 112.1 mL/min INDICATION: Osteomyelitis Recent level drawn 12/17 at 2000 - 17.4 mcg/mL; within goal 15 to 20 mcg/mL. Will continue current regimen: Vancomycin 1500 mg (16.7 mg/kg) IV Q12H. Jihan Jacinto, PharmD 12/17/2016 10:46 PM onver ruben Transaction, Provider Unknown - 12/17/2016 5:43 PM PDT Nurse Progress Note by Gerber Hay RN at 12/17/161742 Author: Gerber Hay RN Service: (none) Author Type: Registered Nurse Filed: 12/17/161750 Date of Service: 12/17/161742 Status: Signed Block Trimmer: Gerber Hay RN (Registered Nurse) Wound vac applied, pt tolerated well with PRN pain medication. Currently at target pressur e 125, no leaks identified. Pt had several loose stools throughout day, two as incontinent episodes requiring full linen changes. CDiff order in place for next stool. Blood glucose stable. Will continue to monitor. GERBER HAY RN Rebeca Hernandez MD - 12/17/2016 3:10 PM PDT Progress Notes by Rebeca Reza MD at 12/17/16 8980 Author: Rebeca Reza MD Service: Infectious Disease Author Type: Physician Filed: 12/17/16 1703 Date of Service: 12/17/16 1510 Status: Addendum Block Trimmer: Rebeca Reza MD (Physician) Related Notes: Original Note by Rebeca Reza MD (Physician) filed at 12/17/16 6722 [facility] Service: Infectious Disease Progress Note Hospital Day: LOS: 2 days Post-Op Day: 2 Days Post-Op SUBJECTIVE Patient Summary: Re: Diabetic left foot infection with abscess and possible osteomye litis From ID consult note on 12/15: The patient is a 51 y.o. male with significant past medical history of type 2 diabetes mellitus, hypertension, history of hives with penicillin. On ER presentation, Temp was 98F, HR 113/min, stable BP, RR and O2 saturation. Yessi Zamora PA-C's ER findinth toe is black in discoloration, painful to touch No sensation to 1st and 2nd toe Has sensation to 3rd and 5th toe All toes except 4th, are red warm and swollen Top of foot, has open wound, yellow drainage and foul odor Plantar surface has white/yellow discoloration - this are is moist Redness and warmth to mid plantar surface Redness also to medial/lateral ankle with mild swelling ER work up showed WBC 19,460, 87% neutrophils. ESR 130, CRP 16. Glucose 635, creatinine 1 .4. Lactic acid 1. ABG showed pH 7.315, p)2 73, HCO3 22. Serum ketones were negative. MRI showed probable osteomyelitis of the 4th toe with phlegmon/abscess at the 3rd and 4th MT. Margarita ramirez received IV clindamycin in the ER. He was admitted to the hospitalist service and placed on IV vancomycin and levofloxacin. Podiatry is being consulted. Tmax in 24 hours is 100F; he has remained hemodynamically stable. ABG shows pH is 6.8 wit h HCO3 9. Glucose is 392 with BUN 12/creatinine 1. Patient is currently reticent, not providing much information and acting annoyed with clini cians questions. He states that he did not have trauma to the left foot area and he did not have ill fitting shoes. He appears to have peripheral neuropathy and had a blister at his le ft foot that got worse. He denies having had fever, chills, sweats at home. He denies abdomi nal pain, nausea, vomiting, diarrhea, cough, chest pain or shortness of breath. On 12/15, antibiotics broadened to IV vancomycin and meropenem s/p left 4th toe/MT osteomyelitis. Events Overnight: Tmax 100.2F in 24 hours but fever curve better today. Dr. Fernandez saw patient today with wound at the left fourth ray open, less necrosis with no pus. Cellulitis is improving. Wound VAC has been requested. Loose stools since yesterday. Six today. No abdominal pain, nausea, vomiting. Tolerating diet. No cough, chest pain, dyspnea Scheduled Medications enoxaparin 40 mg Subcutaneous Q24H famotidine 20 mg Oral BID Or famotidine 20 mg Intravenous BID insulin glargine 20 Units Subcutaneous Nightly insulin lispro (human) 0-14 Units Subcutaneous TID AC insulin lispro (human) 0-7 Units Subcutaneous Nightly insulin lispro (human) 15 Units Subcutaneous TID AC lisinopril 20 mg Oral Daily vancomycin 17 mg/kg Intravenous Q12H Continuous Infusions dextrose sodium chloride (IV) 110 mL/hr at 12/16/161816 PRN Medications acetaminophen OR acetaminophen, dextrose, dextrose, dextrose, fentaNYL OR fentaNYL, glucagon, glucagon, HYDROcodone-acetaminophen OR HYDROcodone-acetaminophen, HYDROmorpho ne OR HYDROmorphone, HYDROmorphone OR HYDROmorphone, meperidine, metoclopramide, mor phine OR morphine, naloxone, ondansetron, ondansetron OR [DISCONTINUED] ondansetron, polyethylene glycol, promethazine, saline lock IV - when tolerating PO fluids AND sodiu m chloride (PF), zolpidem OBJECTIVE Vital Signs: BP 140/85 mmHg | Pulse 75 | Temp(Src) 98.5 F (36.9 C) (Oral) | Resp 18 | Ht 1.778 m (5' 10") | Wt 89.903 kg (198 lb 3.2 oz) | BMI 28.44 kg/m2 | SpO2 97% Temp: [97.6 F (36.4 C)-100.2 F (37.9 C)] 97.6 F (36.4 C) (12/17 1641) BP: (133-168)/(82-96) 155/90 mmHg (12/17 1641) Heart Rate: [75-102] 76 (12/17 1641) Resp: [16-20] 20 (12/17 1641) SpO2: [95 %-98 %] 98 % (12/17 1641) Weight: [89.903 kg (198 lb 3.2 oz)] 89.903 kg (198 lb 3.2 oz) (12/17 0304) Physical Exam Vital signs reviewed General: Not in distress HEENT: Normocephalic. Anicteric sclerae. No oral thrush Lungs: normal respiratory effort CV: RRR Abdomen: No distention. Positive bowel sounds. Soft. No tenderness Left foot: Wound VAC applied. Brownish discoloration at periwound area. No lymphangitic s treaking noted at left leg Neurologic: Oriented x 3, no focal weakness Psychiatric: Cooperative today DATA CBC: Lab Results Component Value Date WBC 14.59* 12/17/2016 RBC 4.13* 12/17/2016 HGB 11.7* 12/17/2016 HCT 34.8* 12/17/2016 MCV 84.2 12/17/2016 MCH 28.2 12/17/2016 MCHC 33.5 12/17/2016 RDW 42.0 12/17/2016 PLT 329 12/17/2016 MPV 7.9 12/17/2016 DIFFTYPE AUTOMATED 12/17/2016 WBC: Lab Results Component Value Date WBC 14.59* 12/17/2016 NEUTROABS 12.15* 12/17/2016 LYMPHSABS 1.27 12/17/2016 LYMPHOPCT 8.71 12/17/2016 MONOPCT 5.08 12/17/2016 EOSABS 0.34 12/17/2016 EOSPCT 2.32 12/17/2016 BASOSABS 0.09 12/17/2016 BASOPCT 0.60 12/17/2016 PLTEST ADEQUATE 12/14/2016 COMDIFF SLIDE SCANNED, AGREES WITH AUTOMATED RESULTS. 12/14/2016 CMP: Lab Results Component Value Date NA 138 12/17/2016 K 3.8 12/17/2016 CL 104 12/17/2016 CO2 27 12/17/2016 ANIONGAP 11 12/17/2016 GLUF 196* 12/17/2016 BUN 5* 12/17/2016 CREATININE 0.9 12/17/2016 BCR 6 12/17/2016 CA 8.4* 12/17/2016 PROT 6.4 12/15/2016 ALB 2.2* 12/15/2016 GLOB 4.2 12/15/2016 BILITOT 0.6 12/15/2016 ALP 182* 12/15/2016 AST 9* 12/15/2016 ALT 16 12/15/2016 EGFR >60 12/17/2016 Lab Results Component Value Date CRP 16.0* 12/14/2016 Lab Results Component Value Date ESR 130* 12/14/2016 Microbiology Data: 12/15 MRSA nasal PCR positive 12/15 Left foot wound culture (superficial) 3+ Strep agalactiae, Marie albicans 12/15 anaerobic cultures (OR) 2+ Strep agalactiae 12/14 Blood cultures with no growth to date 12/15 Urine culture with no growth Radiology Data: Impression 1. Abnormal area of fluid signal, soft tissue edema and thickening at the distal lateral do rsum of the foot suspicious for phlegmon and/or developing abscess measuring 3.9 x 3.8 x 1.2 cm. Similar smaller ill-defined area of signal abnormality at the dorsal proximal aspect of the fourth toe. 2. Deformity and abnormal decreased signal at the fourth middle phalanx. Considerations inc lude chronic osteomyelitis versus deformity from old surgery or old trauma. 3. Mild degree of marrow edema at the distal aspect of the third and fourth metatarsals and proximal aspect of the third and fourth proximal phalanges. Reactive edema versus early ost eomyelitis. 4. Focal marrow edema and erosion at the distal medial aspect of the first metatarsal. Cons iderations include infection, gout or inflammatory arthritis. Comparison with any available prior foot imaging may be helpful in establishing chronicity. RADIA MUSCULOSKELETAL RADIOLOGY SECTION Electronically signed by Lopez Greer MD on Dec 15 2016 9:30AM Referring Provider Line: [phone] ID: [id number] MRI foot left without contrast [[id number]] Impression 1. Recent amputation of the LEFT 4th toe. 2. No radiographic evidence of residual osteomyelitis in the remaining ossicles of the LEF T forefoot. 3. Moderately extensive vascular calcifications. X-ray foot left [[id number]] PROBLEM LIST Principal Problem: Osteomyelitis (HCC) Active Problems: Essential hypertension Type II diabetes mellitus, uncontrolled (HCC) Cellulitis and abscess of foot ASSESSMENT & PLAN Left diabetic foot infection: Cellulitis, gangrene and osteomyelitis involving the fourth t oe -ff up ABG was reassuring with normal lactic acid -s/p amputation of left foot 4th ray on 12/[address] Fernandez; wound is healing with cellu litis improving. Wound VAC applied. -MRSA nasal PCR is positive; superficial and OR wound culture growth of Strep agalactiae w ith Marie albicans on superficial wound culture -Blood cultures with no growth to date -low grade fever with WBC at 14.5k -Pathology in process; X-ray of left foot shows no residual osteomyelitis post-op -D/c meropenem -continue vancomycin IV for now; on discharge, can possibly transition to po doxycycline + /- levofloxacin -fluconazole x 7 days History of penicillin allergy -described as hives; not known if he can tolerate cephalosporins. Not open to cephalospori n challenge currently Loose stools -contact enteric precautions -R/o C diff -discussed with patient why he cannot take Imodium for now Case discussed with nursing staff Code Status: Full Code REBECA REZA MD 12/17/2016 Arina Stover - 12/17/2016 2:06 PM PDTFormatting of this note might be different from the origi nal. Progress Notes by Walter Fernandez DPM at 12/17/16 1406 Author: Walter Fernandez DPM Service: Podiatry Author Type: Doctor of Podiatric Medi cine Filed: 12/17/16 3381 Date of Service: 12/17/16 1406 Status: Signed Block Trimmer: Walter Fernandez DPM (Doctor of Podiatric Medicine) [facility] Service: Podiatry Progress Note Hospital Day: LOS: 2 days Post-Op Day: 2 Day Post-Op SUBJECTIVE Patient Summary: Events Overnight: No FCNV or SOB. Pain is controlled. Culture is pending. Xray is clear margin for osteomyelitis. Scheduled Medications enoxaparin 40 mg Subcutaneous Q24H famotidine 20 mg Oral BID Or famotidine 20 mg Intravenous BID insulin glargine 20 Units Subcutaneous Nightly insulin lispro (human) 0-14 Units Subcutaneous TID AC insulin lispro (human) 0-7 Units Subcutaneous Nightly insulin lispro (human) 15 Units Subcutaneous TID AC lisinopril 20 mg Oral Daily meropenem 1 g Intravenous Q8H vancomycin 17 mg/kg Intravenous Q12H Continuous Infusions dextrose sodium chloride (IV) 110 mL/hr at 12/16/161816 PRN Medications acetaminophen OR acetaminophen, dextrose, dextrose, dextrose, fentaNYL OR fentaNYL, glucagon, glucagon, HYDROcodone-acetaminophen OR HYDROcodone-acetaminophen, HYDROmorpho ne OR HYDROmorphone, HYDROmorphone OR HYDROmorphone, meperidine, metoclopramide, mor phine OR morphine, naloxone, ondansetron, ondansetron OR [DISCONTINUED] ondansetron, polyethylene glycol, promethazine, saline lock IV - when tolerating PO fluids AND sodiu m chloride (PF), zolpidem OBJECTIVE Vital Signs: BP 140/85 mmHg | Pulse 75 | Temp(Src) 98.5 F (36.9 C) (Oral) | Resp 18 | Ht 1.778 m (5' 10") | Wt 89.903 kg (198 lb 3.2 oz) | BMI 28.44 kg/m2 | SpO2 97% Temp: [98.5 F (36.9 C)-100.2 F (37.9 C)] 98.5 F (36.9 C) (12/17 121) BP: (133-168)/(82-96) 140/85 mmHg (12/17 121) Heart Rate: [75-102] 75 (12/17 121) Resp: [16-20] 18 (12/17 1214) SpO2: [95 %-98 %] 97 % (12/17 1214) Weight: [89.903 kg (198 lb 3.2 oz)] 89.903 kg (198 lb 3.2 oz) (12/17 0304) Physical Exam Constitutional: He appears well-developed and well-nourished. HENT: Head: Normocephalic and atraumatic. Cardiovascular: Pulses: Dorsalis pedis pulses are 1+ on the right side, and 1+ on the left side. Posterior tibial pulses are 1+ on the right side, and 1+ on the left side. Musculoskeletal: Right ankle: He exhibits decreased range of motion. Left ankle: He exhibits decreased range of motion. Right foot: Protective Sensation: 5 sites tested.0 sites sensed. Left foot: Protective Sensation: 5 sites tested. 0 sites sensed. Feet: Lymphadenopathy: No LE lymphadenopathy. Skin: Psychiatric: He has a normal mood and affect. His speech is normal and behavior is normal. Thought content normal. Nursing note and vitals reviewed. DATA CBC: Lab Results Component Value Date WBC 14.59* 12/17/2016 RBC 4.13* 12/17/2016 HGB 11.7* 12/17/2016 HCT 34.8* 12/17/2016 MCV 84.2 12/17/2016 MCH 28.2 12/17/2016 MCHC 33.5 12/17/2016 RDW 42.0 12/17/2016 PLT 329 12/17/2016 MPV 7.9 12/17/2016 DIFFTYPE AUTOMATED 12/17/2016 PROBLEM LIST Principal Problem: Osteomyelitis (HCC) Active Problems: Essential hypertension Type II diabetes mellitus, uncontrolled (HCC) Cellulitis and abscess of foot ASSESSMENT & PLAN PO day 2 ray resection 4th left with deep I and D doing well with acute infection respondin g well. Will request wound VAC to help heal wound. Abx as per ID. Disposition: Stable Code Status: Full Code WALTER FERNANDEZ DPM 12/17/2016 onversion Ledesma saction, Provider Unknown - 12/17/2016 11:44 AM PDTFormatting of this note might be differen t from the original. Nurse Progress Note by Gerber Hay RN at 12/17/16 0941 Author: Gerber Hay RN Service: (none) Author Type: Registered Nurse Filed: 12/17/16 5038 Date of Service: 12/17/16 1144 Status: Signed Block Trimmer: Gerber Hay RN (Registered Nurse) Pt had large incontinent bowel movement, told RN that he has "prescription strength immodiu m" at home, RN educated pt about possible reaction to antibiotics and stress from surgery pl us being hospitalized that can cause a change in bowel habits. Will continue to monitor. Jose HAY, MAXX OWBrowDell harmon DO - 12/17/2016 10:59 AM PDTFormatting of this note might be different from the kar ginal. Progress Notes by Dell Archer DO at 12/17/16 1055 Author: Dell Archer DO Service: Hospitalist Author Type: Physician Filed: 12/17/16 1103 Date of Service: 12/17/16 1053 Status: Signed Block Trimmer: Dell Archer DO (Physician) PROGRESS NOTE 12/17/2016 for Kuldip Smith on the hospitalist service. ASSESSMENT & PLAN L foot gangrene, cellulitis, osteomyelitis Now s/p 4th ray amputation, I&D on 12/15. Podiatry and ID consulting. He remains on vancomyc in and meropenem. DM2 ISS + glargine 20 units nightly, monitor blood glucose levels. HTN Continue lisinopril, monitor. Problem list: Principal Problem: Osteomyelitis (HCC) Active Problems: Essential hypertension Type II diabetes mellitus, uncontrolled (HCC) Cellulitis and abscess of foot Length of stay: 2 days DVT prophylaxis: enox Code status: full code Disposition: inpatient SUBJECTIVE Patient seen/examined, lying in bed, spouse sleeping, feeling better still, pain quite sarah geable, no f/c. OBJECTIVE Temp: [98.6 F (37 C)-100.2 F (37.9 C)] 99.6 F (37.6 C) (12/18 803) BP: (124-168)/(68-96) 133/82 mmHg (12/18 803) Heart Rate: [83-102] 86 (12/18 803) Resp: [16-20] 20 (12/18 803) SpO2: [95 %-98 %] 97 % (12/18 803) Weight: [89.903 kg (198 lb 3.2 oz)] 89.903 kg (198 lb 3.2 oz) (12/18 303) Physical exam: NAD AOx3 HENT - MMM, conjunctivae normal Heart - RRR no murmur, no JVD, normal radial / DP pulses B/L Lungs - CTAB/L no WRR, good effort Abd - SNTND +BSx4 Ext - Good ROM no tenderness or edema Skin - L foot bandaged CBC: Lab Results Component Value Date WBC 14.59* 12/17/2016 RBC 4.13* 12/17/2016 HGB 11.7* 12/17/2016 HCT 34.8* 12/17/2016 MCV 84.2 12/17/2016 MCH 28.2 12/17/2016 MCHC 33.5 12/17/2016 RDW 42.0 12/17/2016 PLT 329 12/17/2016 MPV 7.9 12/17/2016 DIFFTYPE AUTOMATED 12/17/2016 BMP: Lab Results Component Value Date NA 138 12/17/2016 K 3.8 12/17/2016 CL 104 12/17/2016 CO2 27 12/17/2016 ANIONGAP 11 12/17/2016 GLUF 196* 12/17/2016 BUN 5* 12/17/2016 CREATININE 0.9 12/17/2016 BCR 6 12/17/2016 CA 8.4* 12/17/2016 EGFR >60 12/17/2016 MEDICATIONS enoxaparin 40 mg Subcutaneous Q24H famotidine 20 mg Oral BID Or famotidine 20 mg Intravenous BID insulin glargine 20 Units Subcutaneous Nightly insulin lispro (human) 0-14 Units Subcutaneous TID AC insulin lispro (human) 0-7 Units Subcutaneous Nightly insulin lispro (human) 15 Units Subcutaneous TID AC lisinopril 20 mg Oral Daily meropenem 1 g Intravenous Q8H vancomycin 17 mg/kg Intravenous Q12H dextrose sodium chloride (IV) 110 mL/hr at 12/16/16 1817 PRN: acetaminophen OR acetaminophen, dextrose, dextrose, dextrose, fentaNYL OR fentaNYL, glucagon, glucagon, HYDROcodone-acetaminophen OR HYDROcodone-acetaminophen, HYDROmorpho ne OR HYDROmorphone, HYDROmorphone OR HYDROmorphone, meperidine, metoclopramide, mor phine OR morphine, naloxone, ondansetron, ondansetron OR [DISCONTINUED] ondansetron, polyethylene glycol, promethazine, saline lock IV - when tolerating PO fluids AND sodiu m chloride (PF), zolpidem Signature: Dell Archer DO 12/17/2016 10:59 AM onversion Transaction , Provider Unknown - 12/17/2016 8:35 AM PDT Progress Notes by Destini Vargas RPH at 12/17/16834 Author: Destini Vargas RPH Service: (none) Author Type: Pharmacist Filed: 12/17/16834 Date of Service: 12/17/16834 Status: Signed Block Trimmer: Destini Vargas RPH (Pharmacist) Day 4 Vanco 1500mg IV q 12h. Todays Scr= 0.9, WBC= 14.59 with estim CrCl= 112.1 ml/min. Vanco Tr at 2000 tonight. Goal Tr 15-20 mcg/ml for osteomyelitis. Last nights level was 18.1 mcg/ml- potentially the level tonight may be elevated. Pharmacist; DESTINI VARGAS 12/17/2016 8:34 AM onver ruben Transaction, Provider Unknown - 12/17/2016 3:08 AM PDT Pharmacy Note by Jihan Jacinto RPH at 12/17/16 0308 Author: Jihan Jacinto RPH Service: Pharmacy Author Type: Pharmacist Filed: 12/17/168 Date of Service: 12/17/16307 Status: Signed Block Trimmer: Jihan Jacinto RPH (Pharmacist) Clinical Pharmacy Note: Pharmacy Dosing Vancomycin; Day 3 Weight: 92.8 kg WBC: 15.89 CREATININE: 0.9 (12/16/16 0551) Estimated creatinine clearance - 113.6 mL/min INDICATION: Osteomyelitis Recent level drawn 12/16 at 1930 - 18.8 mcg/mL; within goal 15 to 20 mcg/mL. Will continue current regimen: Vancomycin 1500 mg (16.2 mg/kg) IV Q12H. Next level due 12/17 at 2000 - check for accumulation. Jihan Jacinto PharmD 12/17/2016 3:02 AM apa Leerm Chau - 12/16/2016 5:10 PM PDT Progress Notes by Walter Fernandez DPM at 12/16/161709 Author: Walter Fernandez DPM Service: Podiatry Author Type: Doctor of Podiatric Medi cine Filed: 12/16/161719 Date of Service: 12/16/161709 Status: Signed Block Trimmer: Walter Fernandez DPM (Doctor of Podiatric Medicine) [facility] Service: Podiatry Progress Note Hospital Day: LOS: 1 day Post-Op Day: 1 Day Post-Op SUBJECTIVE Patient Summary: Events Overnight: No FCNV or SOB. Pain is controlled. Culture is pending Scheduled Medications chlorhexidine Topical Daily enoxaparin 40 mg Subcutaneous Q24H famotidine 20 mg Oral BID Or famotidine 20 mg Intravenous BID insulin glargine 20 Units Subcutaneous Nightly insulin lispro (human) 0-14 Units Subcutaneous TID AC insulin lispro (human) 0-7 Units Subcutaneous Nightly insulin lispro (human) 15 Units Subcutaneous TID AC lisinopril 20 mg Oral Daily meropenem 1 g Intravenous Q8H vancomycin 17 mg/kg Intravenous Q12H Continuous Infusions dextrose sodium chloride (IV) 110 mL/hr at 12/15/16 1539 PRN Medications acetaminophen OR acetaminophen, dextrose, dextrose, dextrose, fentaNYL OR fentaNYL, glucagon, glucagon, HYDROcodone-acetaminophen OR HYDROcodone-acetaminophen, HYDROmorpho ne OR HYDROmorphone, HYDROmorphone OR HYDROmorphone, meperidine, metoclopramide, mor phine OR morphine, naloxone, ondansetron, ondansetron OR [DISCONTINUED] ondansetron, polyethylene glycol, promethazine, saline lock IV - when tolerating PO fluids AND sodiu m chloride (PF), zolpidem OBJECTIVE Vital Signs: BP 124/68 mmHg | Pulse 90 | Temp(Src) 99.4 F (37.4 C) (Oral) | Resp 16 | Ht 1.778 m (5' 10") | Wt 92.8 kg (204 lb 9.4 oz) | BMI 29.36 kg/m2 | SpO2 97% Temp: [97.5 F (36.4 C)-100.1 F (37.8 C)] 99.4 F (37.4 C) (12/16 115) BP: (118-173)/(68-95) 124/68 mmHg (12/16 115) Heart Rate: [80-100] 90 (12/16 115) Resp: [8-20] 16 (12/16 115) SpO2: [94 %-100 %] 97 % (12/16 115) Weight: [92.8 kg (204 lb 9.4 oz)] 92.8 kg (204 lb 9.4 oz) (12/16 318) FiO2 : [56 %-98 %] 96 % (12/15 1930) Physical Exam Constitutional: He appears well-developed and well-nourished. HENT: Head: Normocephalic and atraumatic. Cardiovascular: Pulses: Dorsalis pedis pulses are 1+ on the right side, and 1+ on the left side. Posterior tibial pulses are 1+ on the right side, and 1+ on the left side. Musculoskeletal: Right ankle: He exhibits decreased range of motion. Left ankle: He exhibits decreased range of motion. Right foot: Protective Sensation: 5 sites tested.0 sites sensed. Left foot: Protective Sensation: 5 sites tested. 0 sites sensed. Feet: Lymphadenopathy: No LE lymphadenopathy. Skin: Psychiatric: He has a normal mood and affect. His speech is normal and behavior is normal. Thought content normal. DATA CBC: Lab Results Component Value Date WBC 15.89* 12/16/2016 RBC 4.31 12/16/2016 HGB 12.3* 12/16/2016 HCT 36.4* 12/16/2016 MCV 84.5 12/16/2016 MCH 28.5 12/16/2016 MCHC 33.8 12/16/2016 RDW 42.9 12/16/2016 PLT 307 12/16/2016 MPV 8.0 12/16/2016 DIFFTYPE AUTOMATED 12/16/2016 PROBLEM LIST Principal Problem: Osteomyelitis (HCC) Active Problems: Essential hypertension Type II diabetes mellitus, uncontrolled (HCC) Cellulitis and abscess of foot ASSESSMENT & PLAN PO day one ray resection 4th left with deep I and D doing well with acute infection respond ing well. Will request wound VAC to help heal wound. Abx as per ID. Disposition: Stable Code Status: Full Code WALTER Barber FERNANDEZ, SHYAM 12/16/2016 aranada, Isak Messina MD - 12/16/2016 12:47 PM PDTFormatting of this note might be different from the origi nal. Progress Notes by Rebeca Reza MD at 12/16/16 3462 Author: Rebeca Reza MD Service: Infectious Disease Author Type: Physician Filed: 12/16/16 1606 Date of Service: 12/16/161 Status: Signed Block Trimmer: Rebeca Reza MD (Physician) [facility] Service: Infectious Disease Progress Note Hospital Day: LOS: 1 day Post-Op Day: 1 Day Post-Op SUBJECTIVE Patient Summary: Re: Diabetic left foot infection with abscess and possible osteomyelitis From ID consult note on 12/15: The patient is a 51 y.o. male with significant past medical history of type 2 diabetes mellitus, hypertension, history of hives with penicillin. On ER presentation, Temp was 98F, HR 113/min, stable BP, RR and O2 saturation. Yessi Zamora PA-C's ER findinth toe is black in discoloration, painful to touch No sensation to 1st and 2nd toe Has sensation to 3rd and 5th toe All toes except 4th, are red warm and swollen Top of foot, has open wound, yellow drainage and foul odor Plantar surface has white/yellow discoloration - this are is moist Redness and warmth to mid plantar surface Redness also to medial/lateral ankle with mild swelling ER work up showed WBC 19,460, 87% neutrophils. ESR 130, CRP 16. Glucose 635, creatinine 1 .4. Lactic acid 1. ABG showed pH 7.315, p)2 73, HCO3 22. Serum ketones were negative. MRI showed probable osteomyelitis of the 4th toe with phlegmon/abscess at the 3rd and 4th MT. H e received IV clindamycin in the ER. He was admitted to the hospitalist service and placed on IV vancomycin and levofloxacin. Podiatry is being consulted. Tmax in 24 hours is 100F; he has remained hemodynamically stable. ABG shows pH is 6.8 wit h HCO3 9. Glucose is 392 with BUN 12/creatinine 1. Patient is currently reticent, not providing much information and acting annoyed with clini cians questions. He states that he did not have trauma to the left foot area and he did not have ill fitting shoes. He appears to have peripheral neuropathy and had a blister at his le ft foot that got worse. He denies having had fever, chills, sweats at home. He denies abdomi nal pain, nausea, vomiting, diarrhea, cough, chest pain or shortness of breath. On 12/15, antibiotics broadened to IV vancomycin and meropenem Events Overnight: On 12/15, s/p left 4th toe/MT osteomyelitis. Wound packed. Tmax 100.1F. Hemodynamically stable. No acute issues. Currently resting. His significant other requests that he not be disturbed. Scheduled Medications chlorhexidine Topical Daily enoxaparin 40 mg Subcutaneous Q24H famotidine 20 mg Oral BID Or famotidine 20 mg Intravenous BID insulin glargine 20 Units Subcutaneous Nightly insulin lispro (human) 0-14 Units Subcutaneous TID AC insulin lispro (human) 0-7 Units Subcutaneous Nightly insulin lispro (human) 15 Units Subcutaneous TID AC lisinopril 20 mg Oral Daily meropenem 1 g Intravenous Q8H vancomycin 17 mg/kg Intravenous Q12H Continuous Infusions dextrose sodium chloride (IV) 110 mL/hr at 12/15/16 1539 PRN Medications acetaminophen OR acetaminophen, dextrose, dextrose, dextrose, fentaNYL OR fentaNYL, glucagon, glucagon, HYDROcodone-acetaminophen OR HYDROcodone-acetaminophen, HYDROmorpho ne OR HYDROmorphone, HYDROmorphone OR HYDROmorphone, meperidine, metoclopramide, mor phine OR morphine, naloxone, ondansetron, ondansetron OR [DISCONTINUED] ondansetron, polyethylene glycol, promethazine, saline lock IV - when tolerating PO fluids AND sodiu m chloride (PF), zolpidem OBJECTIVE Vital Signs: BP 124/68 mmHg | Pulse 90 | Temp(Src) 99.4 F (37.4 C) (Oral) | Resp 16 | Ht 1.778 m (5' 10") | Wt 92.8 kg (204 lb 9.4 oz) | BMI 29.36 kg/m2 | SpO2 97% Temp: [97.5 F (36.4 C)-100.1 F (37.8 C)] 99.4 F (37.4 C) (12/16 1153) BP: (118-173)/(68-95) 124/68 mmHg (12/16 1153) Heart Rate: [80-100] 90 (12/16 1153) Resp: [8-20] 16 (12/16 1153) SpO2: [94 %-100 %] 97 % (12/16 1153) Weight: [92.8 kg (204 lb 9.4 oz)] 92.8 kg (204 lb 9.4 oz) (12/16 318) FiO2 : [56 %-98 %] 96 % (12/15 1930) Physical Exam Vital signs reviewed General: Resting comfortable HEENT: No visible labial lesions Lungs: normal respiratory effort CV: RRR Abdomen: No distention Left foot: Dressings dry and intact. No lymphangitic streaking noted at left leg DATA CBC: Lab Results Component Value Date WBC 15.89* 12/16/2016 RBC 4.31 12/16/2016 HGB 12.3* 12/16/2016 HCT 36.4* 12/16/2016 MCV 84.5 12/16/2016 MCH 28.5 12/16/2016 MCHC 33.8 12/16/2016 RDW 42.9 12/16/2016 PLT 307 12/16/2016 MPV 8.0 12/16/2016 DIFFTYPE AUTOMATED 12/16/2016 WBC: Lab Results Component Value Date WBC 15.89* 12/16/2016 NEUTROABS 13.51* 12/16/2016 LYMPHSABS 1.14 12/16/2016 LYMPHOPCT 7.15 12/16/2016 MONOPCT 5.39 12/16/2016 EOSABS 0.30 12/16/2016 EOSPCT 1.86 12/16/2016 BASOSABS 0.10 12/16/2016 BASOPCT 0.60 12/16/2016 PLTEST ADEQUATE 12/14/2016 COMDIFF SLIDE SCANNED, AGREES WITH AUTOMATED RESULTS. 12/14/2016 CMP: Lab Results Component Value Date NA 137 12/16/2016 K 4.0 12/16/2016 CL 103 12/16/2016 CO2 24 12/16/2016 ANIONGAP 14 12/16/2016 GLUF 207* 12/16/2016 BUN 7* 12/16/2016 CREATININE 0.9 12/16/2016 BCR 8 12/16/2016 CA 8.2* 12/16/2016 PROT 6.4 12/15/2016 ALB 2.2* 12/15/2016 GLOB 4.2 12/15/2016 BILITOT 0.6 12/15/2016 ALP 182* 12/15/2016 AST 9* 12/15/2016 ALT 16 12/15/2016 EGFR >60 12/16/2016 Lab Results Component Value Date CRP 16.0* 12/14/2016 Lab Results Component Value Date ESR 130* 12/14/2016 Component Latest Ref Rng 12/14/2016 12/15/2016 10:40 PM 12:56 PM Lactate, Irvin 0.4 - 2.0 mmol/L 1.0 0.8 Microbiology Data: 12/15 MRSA nasal PCR positive 12/15 Left foot wound culture (superficial) 3+ Strep agalactiae 12/15 anaerobic cultures (OR) prelim 2+ Strep agalactiae 12/14 Blood cultures with no growth to date 12/15 Urine culture with no growth Radiology Data: Impression 1. Abnormal area of fluid signal, soft tissue edema and thickening at the distal lateral do rsum of the foot suspicious for phlegmon and/or developing abscess measuring 3.9 x 3.8 x 1.2 cm. Similar smaller ill-defined area of signal abnormality at the dorsal proximal aspect of the fourth toe. 2. Deformity and abnormal decreased signal at the fourth middle phalanx. Considerations inc lude chronic osteomyelitis versus deformity from old surgery or old trauma. 3. Mild degree of marrow edema at the distal aspect of the third and fourth metatarsals and proximal aspect of the third and fourth proximal phalanges. Reactive edema versus early ost eomyelitis. 4. Focal marrow edema and erosion at the distal medial aspect of the first metatarsal. Cons iderations include infection, gout or inflammatory arthritis. Comparison with any available prior foot imaging may be helpful in establishing chronicity. RADIA MUSCULOSKELETAL RADIOLOGY SECTION Electronically signed by Lopez Greer MD on Dec 15 2016 9:30AM Referring Provider Line: [phone] ID: [id number] MRI foot left without contrast [[id number]] Impression 1. Recent amputation of the LEFT 4th toe. 2. No radiographic evidence of residual osteomyelitis in the remaining ossicles of the LEF T forefoot. 3. Moderately extensive vascular calcifications. X-ray foot left [[id number]] PROBLEM LIST Principal Problem: Osteomyelitis (HCC) Active Problems: Essential hypertension Type II diabetes mellitus, uncontrolled (HCC) Cellulitis and abscess of foot ASSESSMENT & PLAN Left diabetic foot infection: Cellulitis, gangrene and osteomyelitis involving the fourth t oe -ff up ABG was reassuring with normal lactic acid -s/p amputation of left foot 4th ray on 12/[address] Fernandez -MRSA nasal PCR is positive; superficial and OR preliminary wound culture report Strep aga lactiae -Blood cultures with no growth to date -low grade fever with WBC at 15k -Pathology in process; X-ray of left foot shows no residual osteomyelitis post-op -Continue vancomycin with target trough of 15-20; appreciate pharmacy assistance with kelsey ng. Will plan on discontinuing meropenem if there are no further growth from cultures tomorro w -will evaluate wound healing, status of cellulitis with dressing change, further Micro sanjeev a to see if he can be transitioned to po antibiotics on discharge: po doxycycline +/- levofl oxacin -I will defer specifics of glycemic control, fluid electrolyte management to Dr. Archer History of penicillin allergy Code Status: Full Code REBECA REZA MD 12/16/2016 onversion Ledesma saction, Provider Unknown - 12/16/2016 11:29 AM PDTFormatting of this note might be differen t from the original. Case Management by Jenny Vaughan RN at 12/16/16 4819 Author: Jenny Vaughan RN Service: (none) Author Type: Registered Nurse Filed: 12/16/16 7795 Date of Service: 12/16/16 4431 Status: Signed Block Trimmer: Jenny Comfort, RN (Registered Nurse) 12/16/16 6450 Discharge Planning Evaluation Admitting Diagnosis osteomyelitis Readmission No Living Arrangements Parent Support Systems Parent;Family members Type of Residence Private residence House type House-1 story Steps to enter 2 Independent with ADL's Yes Independent with Mobility Yes Mental Status Oriented Prior functional status not employed, independent Power of Liaison Planner No Anticipated Discharge Plan Post Acute Care Needs (tbd ) Plan communicated to patient/family Yes Resources Financial concerns No Transportation issues No Patient/Family concerns No Prescription Plan Yes Previous home health equipment No Met with patient to discuss discharge planning. Pt is a 51 y.o. male admitted for osteomyel itis. He lives with his parents and reports family is able to provide assistance, if needed . Pt is normally independent with ADLs, drives, and does not use DME. Denies any outpatien t medical services. PCP confirmed. Pt is aware CM will continue to follow throughout hospi talization. Patient's PCP is: Estrella Light PA-C Patient's insurance: Medicare/[facility] Coverage concerns: None Medication coverage/concerns: None Community resources utilized / needed: TBD pending pt progress and treatment plan. Sascha garcia need home health services along with IV abx. Discussed with patient and he states und erstanding. Referral sent to [facility] for nursing services as patient lives in [place]. Options for home IV abx services provided to pt/family and they do not have a preference. Referral to [facility] will follow. Pt/family requested I notify Coby at the [facility] of pt status as she ar ranges services for them. Contacted Coby and provided current discharge plan. If there is a change in plan, Coby requests to be notified as she will continue to follow patient after discharge. She also states pt will be followed by their community health nurse (Charlotte ) who works alongside [facility]. Coby [facility] [phone] Assistance in transportation: Pt's family is able to provide transportation. Identification of any specific education / training: Pending pt progress Anticipated DCP: TBD. Likely home with home health and IV abx. Jenny Vaughan Dell Jones DO - 12/16/2016 10:12 AM PDTFormatting of this note might be different from the kar ralf. Progress Notes by Dell Archer DO at 12/16/16 1012 Author: Dell Archer DO Service: Hospitalist Author Type: Physician Filed: 12/16/16 1017 Date of Service: 12/16/16 1012 Status: Signed Block Trimmer: Dell Archer DO (Physician) PROGRESS NOTE 12/16/2016 for Kuldip Smith on the hospitalist service. ASSESSMENT & PLAN L foot gangrene, cellulitis, osteomyelitis Now s/p 4th ray amputation, I&D on 12/15. Podiatry and ID consulting. He remains on vancomyc in and meropenem. Metabolic acidosis? ABG and lactic acid early on 12/15 showed profound acidosis, but repeats were normal and pat ient clinically appeared well. It seems like the early ABG and lactic acid were errors of so me kind. DM2 ISS + glargine 20 units nightly, monitor blood glucose levels. HTN Resume lisinopril. Problem list: Principal Problem: Osteomyelitis (HCC) Active Problems: Essential hypertension Type II diabetes mellitus, uncontrolled (HCC) Cellulitis and abscess of foot Length of stay: 1 days DVT prophylaxis: enox Code status: full code Disposition: inpatient SUBJECTIVE Patient seen/examined with rounding team, lying in bed, spouse sleeping, feeling better tod ay, does have pain in LLE but it is "bearable" with pain meds. No f/c. OBJECTIVE Temp: [97.5 F (36.4 C)-100.1 F (37.8 C)] 99.2 F (37.3 C) (12/17 727) BP: (118-173)/(70-95) 157/94 mmHg (12/17 727) Heart Rate: [80-100] 88 (12/17 727) Resp: [8-20] 18 (12/17 727) SpO2: [94 %-100 %] 96 % (12/17 727) Weight: [92.8 kg (204 lb 9.4 oz)] 92.8 kg (204 lb 9.4 oz) (12/16 318) FiO2 : [56 %-98 %] 96 % (12/15 1930) Physical exam: NAD AOx3 HENT - MMM, conjunctivae normal Heart - RRR no murmur, no JVD, normal radial / DP pulses B/L Lungs - CTAB/L no WRR, good effort Abd - SNTND +BSx4 Ext - Good ROM no tenderness or edema Skin - L foot bandaged CBC: Lab Results Component Value Date WBC 15.89* 12/16/2016 RBC 4.31 12/16/2016 HGB 12.3* 12/16/2016 HCT 36.4* 12/16/2016 MCV 84.5 12/16/2016 MCH 28.5 12/16/2016 MCHC 33.8 12/16/2016 RDW 42.9 12/16/2016 PLT 307 12/16/2016 MPV 8.0 12/16/2016 DIFFTYPE AUTOMATED 12/16/2016 BMP: Lab Results Component Value Date NA 137 12/16/2016 K 4.0 12/16/2016 CL 103 12/16/2016 CO2 24 12/16/2016 ANIONGAP 14 12/16/2016 GLUF 207* 12/16/2016 BUN 7* 12/16/2016 CREATININE 0.9 12/16/2016 BCR 8 12/16/2016 CA 8.2* 12/16/2016 EGFR >60 12/16/2016 MEDICATIONS chlorhexidine Topical Daily enoxaparin 40 mg Subcutaneous Q24H famotidine 20 mg Oral BID Or famotidine 20 mg Intravenous BID insulin glargine 20 Units Subcutaneous Nightly insulin lispro (human) 0-14 Units Subcutaneous TID AC insulin lispro (human) 0-7 Units Subcutaneous Nightly insulin lispro (human) 15 Units Subcutaneous TID AC meropenem 1 g Intravenous Q8H vancomycin 17 mg/kg Intravenous Q12H dextrose sodium chloride (IV) 110 mL/hr at 12/15/16 1539 PRN: acetaminophen OR acetaminophen, dextrose, dextrose, dextrose, fentaNYL OR fentaNYL, glucagon, glucagon, HYDROcodone-acetaminophen OR HYDROcodone-acetaminophen, HYDROmorpho ne OR HYDROmorphone, HYDROmorphone OR HYDROmorphone, meperidine, metoclopramide, mor phine OR morphine, naloxone, ondansetron, ondansetron OR [DISCONTINUED] ondansetron, polyethylene glycol, promethazine, saline lock IV - when tolerating PO fluids AND sodiu m chloride (PF), zolpidem Signature: Dell Archer DO 12/16/2016 10:12 AM onversion Transaction , Provider Unknown - 12/15/2016 12:48 PM PDT Case Management by Jenny Vaughan RN at 12/15/16 1248 Author: Jenny Vaughan RN Service: (none) Author Type: Registered Nurse Filed: 12/15/16 1254 Date of Service: 12/15/16 1248 Status: Signed Block Trimmer: Jenny Vaughan RN (Registered Nurse) Attempted to assess patient after rounding with physician. Pt declines to answer any quest ions. Family member in room states "he doesn't want to be bothered right now". Will contin ue to follow for discharge needs. ID and podiatry to be consulted. onver ruben Transaction, Provider Unknown - 12/15/2016 4:06 AM PDT Pharmacy Note by Jihan Jacinto RPH at 12/15/16 0406 Author: Jihan Jacinto RPH Service: Pharmacy Author Type: Pharmacist Filed: 12/15/16405 Date of Service: 12/15/16405 Status: Signed Block Trimmer: Jihan Jacinto RPH (Pharmacist) Clinical Pharmacy Note: Renal Monitoring Height: 177.8 cm Weight: 89.2 kg CREATININE: 0.95 (12/15/16 0119) Estimated creatinine clearance - 105.8 mL/min Pharmacy dosing for renal function per Dr. Dumont. Currently there are no medications needing to be adjusted. Pharmacy will continue to monito r for changes in medication orders and in renal function and adjust accordingly per protocol . Jihan Jacinto PharmD 12/15/2016 4:06 AM onver ruben Transaction, Provider Unknown - 12/15/2016 4:05 AM PDT Pharmacy Note by Jihan Jacinto RPH at 12/15/16404 Author: Jihan Jacinto RPH Service: Pharmacy Author Type: Pharmacist Filed: 12/15/16404 Date of Service: 12/15/16404 Status: Signed Block Trimmer: Jihan Jacinto RPH (Pharmacist) Clinical Pharmacy Note: Pharmacy Dosing Vancomycin; Day 1 Height: 177.8 cm Weight: 89.2 kg WBC: 19.46 CREATININE: 0.95 (12/15/16 0119) Estimated creatinine clearance - 105.8 mL/min INDICATION: Osteomyelitis First dose of Vancomycin 1500 mg (16.8 mg/kg) was given 12/14 at 2339; will continue 1500 mg IV - next dose today at 0900, then Q12H. Level due 12/16 at 2000; goal 15 to 20 mcg/mL. Jihan Jacinto PharmD 12/15/2016 4:04 AM docume nted in this encounter Plan of Treatment Not on filedocumented as of this encounter Procedures + +--------+ + + + | Procedure Name | Priori | Date/Time | Associated Diagnosis | Comments | | | ty | | | | + +--------+ + + + | POC GLUCOSE | Routin | 12/20/2016 | | Results for this | | | e | 10:56 AM | | procedure are in the | | | | PDT | | results section. | + +--------+ + + + | CBC WITH MANUAL | Routin | 12/20/2016 | | Results for this | | DIFFERENTIAL | e | 7:26 AM | | procedure are in the | | | | PDT | | results section. | + +--------+ + + + | SEDIMENTATION RATE, | Routin | 12/20/2016 | | Results for this | | AUTOMATED | e | 7:26 AM | | procedure are in the | | | | PDT | | results section. | + +--------+ + + + | C-REACTIVE PROTEIN | Routin | 12/20/2016 | | Results for this | | | e | 7:26 AM | | procedure are in the | | | | PDT | | results section. | + +--------+ + + + | POC GLUCOSE | Routin | 12/20/2016 | | Results for this | | | e | 5:55 AM | | procedure are in the | | | | PDT | | results section. | + +--------+ + + + | POC GLUCOSE | Routin | 12/19/2016 | | Results for this | | | e | 9:32 PM | | procedure are in the | | | | PDT | | results section. | + +--------+ + + + | POC GLUCOSE | Routin | 12/19/2016 | | Results for this | | | e | 4:16 PM | | procedure are in the | | | | PDT | | results section. | + +--------+ + + + | POC GLUCOSE | Routin | 12/19/2016 | | Results for this | | | e | 11:34 AM | | procedure are in the | | | | PDT | | results section. | + +--------+ + + + | POC GLUCOSE | Routin | 12/19/2016 | | Results for this | | | e | 6:00 AM | | procedure are in the | | | | PDT | | results section. | + +--------+ + + + | POC GLUCOSE | Routin | 12/18/2016 | | Results for this | | | e | 9:54 PM | | procedure are in the | | | | PDT | | results section. | + +--------+ + + + | POC GLUCOSE | Routin | 12/18/2016 | | Results for this | | | e | 3:56 PM | | procedure are in the | | | | PDT | | results section. | + +--------+ + + + | POC GLUCOSE | Routin | 12/18/2016 | | Results for this | | | e | 11:32 AM | | procedure are in the | | | | PDT | | results section. | + +--------+ + + + | HISTORICAL | Timed | 12/18/2016 | | Results for this | | MICROBIOLOGY RESULT | | 6:34 AM | | procedure are in the | | | | PDT | | results section. | + +--------+ + + + | POC GLUCOSE | Routin | 12/18/2016 | | Results for this | | | e | 6:23 AM | | procedure are in the | | | | PDT | | results section. | + +--------+ + + + | EXTERNAL LAB: CBC | Routin | 12/18/2016 | | Results for this | | | e | 5:11 AM | | procedure are in the | | | | PDT | | results section. | + +--------+ + + + | BASIC METABOLIC | Routin | 12/18/2016 | | Results for this | | PANEL | e | 5:11 AM | | procedure are in the | | | | PDT | | results section. | + +--------+ + + + | POC GLUCOSE | Routin | 12/17/2016 | | Results for this | | | e | 9:50 PM | | procedure are in the | | | | PDT | | results section. | + +--------+ + + + | VANCOMYCIN, TROUGH | Routin | 12/17/2016 | | Results for this | | | e | 7:55 PM | | procedure are in the | | | | PDT | | results section. | + +--------+ + + + | POC GLUCOSE | Routin | 12/17/2016 | | Results for this | | | e | 4:36 PM | | procedure are in the | | | | PDT | | results section. | + +--------+ + + + | POC GLUCOSE | Routin | 12/17/2016 | | Results for this | | | e | 9:38 AM | | procedure are in the | | | | PDT | | results section. | + +--------+ + + + | POC GLUCOSE | Routin | 12/17/2016 | | Results for this | | | e | 8:56 AM | | procedure are in the | | | | PDT | | results section. | + +--------+ + + + | EXTERNAL LAB: CBC | Routin | 12/17/2016 | | Results for this | | | e | 5:24 AM | | procedure are in the | | | | PDT | | results section. | + +--------+ + + + | BASIC METABOLIC | Routin | 12/17/2016 | | Results for this | | PANEL | e | 5:24 AM | | procedure are in the | | | | PDT | | results section. | + +--------+ + + + | POC GLUCOSE | Routin | 12/17/2016 | | Results for this | | | e | 5:15 AM | | procedure are in the | | | | PDT | | results section. | + +--------+ + + + | POC GLUCOSE | Routin | 12/16/2016 | | Results for this | | | e | 9:16 PM | | procedure are in the | | | | PDT | | results section. | + +--------+ + + + | VANCOMYCIN, TROUGH | Routin | 12/16/2016 | | Results for this | | | e | 7:37 PM | | procedure are in the | | | | PDT | | results section. | + +--------+ + + + | POC GLUCOSE | Routin | 12/16/2016 | | Results for this | | | e | 5:56 PM | | procedure are in the | | | | PDT | | results section. | + +--------+ + + + | POC GLUCOSE | Routin | 12/16/2016 | | Results for this | | | e | 11:56 AM | | procedure are in the | | | | PDT | | results section. | + +--------+ + + + | XR FOOT LEFT 3 + VW | Routin | 12/16/2016 | | Results for this | | | e | 8:37 AM | | procedure are in the | | | | PDT | | results section. | + +--------+ + + + | EXTERNAL LAB: CBC | Routin | 12/16/2016 | | Results for this | | | e | 5:51 AM | | procedure are in the | | | | PDT | | results section. | + +--------+ + + + | BASIC METABOLIC | Routin | 12/16/2016 | | Results for this | | PANEL | e | 5:51 AM | | procedure are in the | | | | PDT | | results section. | + +--------+ + + + | POC GLUCOSE | Routin | 12/16/2016 | | Results for this | | | e | 5:32 AM | | procedure are in the | | | | PDT | | results section. | + +--------+ + + + | TISSUE REQUEST FOR | Routin | 12/16/2016 | | Results for this | | PATHOLOGY (NON-ORD) | e | 12:00 AM | | procedure are in the | | | | PDT | | results section. | + +--------+ + + + | POC GLUCOSE | Routin | 12/15/2016 | | Results for this | | | e | 9:03 PM | | procedure are in the | | | | PDT | | results section. | + +--------+ + + + | POC GLUCOSE | Routin | 12/15/2016 | | Results for this | | | e | 7:43 PM | | procedure are in the | | | | PDT | | results section. | + +--------+ + + + | CULTURE, MRSA | Routin | 12/15/2016 | | Results for this | | | e | 6:55 PM | | procedure are in the | | | | PDT | | results section. | + +--------+ + + + | CULTURE, ANAEROBIC | Routin | 12/15/2016 | | Results for this | | | e | 6:55 PM | | procedure are in the | | | | PDT | | results section. | + +--------+ + + + | CULTURE, MRSA | Routin | 12/15/2016 | | Results for this | | | e | 6:50 PM | | procedure are in the | | | | PDT | | results section. | + +--------+ + + + | CULTURE, ANAEROBIC | Routin | 12/15/2016 | | Results for this | | | e | 6:50 PM | | procedure are in the | | | | PDT | | results section. | + +--------+ + + + | POC GLUCOSE | Routin | 12/15/2016 | | Results for this | | | e | 4:31 PM | | procedure are in the | | | | PDT | | results section. | + +--------+ + + + | POC CG 4, ISTAT | Routin | 12/15/2016 | | Results for this | | ARTERIAL | e | 1:21 PM | | procedure are in the | | | | PDT | | results section. | + +--------+ + + + | LACTIC ACID | Routin | 12/15/2016 | | Results for this | | | e | 12:56 PM | | procedure are in the | | | | PDT | | results section. | + +--------+ + + + | POC GLUCOSE | Routin | 12/15/2016 | | Results for this | | | e | 11:31 AM | | procedure are in the | | | | PDT | | results section. | + +--------+ + + + | URINALYSIS WITH | Routin | 12/15/2016 | | Results for this | | MICROSCOPIC IF | e | 9:19 AM | | procedure are in the | | INDICATED | | PDT | | results section. | + +--------+ + + + | CULTURE, URINE | Timed | 12/15/2016 | | Results for this | | | | 9:19 AM | | procedure are in the | | | | PDT | | results section. | + +--------+ + + + | POC MAGO LYONS | Routin | 12/15/2016 | | Results for this | | ARTERIAL | e | 6:53 AM | | procedure are in the | | | | PDT | | results section. | + +--------+ + + + | EXTERNAL LAB: CBC | Routin | 12/15/2016 | | Results for this | | | e | 5:40 AM | | procedure are in the | | | | PDT | | results section. | + +--------+ + + + | PHOSPHORUS | Routin | 12/15/2016 | | Results for this | | | e | 5:40 AM | | procedure are in the | | | | PDT | | results section. | + +--------+ + + + | MAGNESIUM | Routin | 12/15/2016 | | Results for this | | | e | 5:40 AM | | procedure are in the | | | | PDT | | results section. | + +--------+ + + + | HEMOGLOBIN A1C | Routin | 12/15/2016 | | Results for this | | | e | 5:40 AM | | procedure are in the | | | | PDT | | results section. | + +--------+ + + + | COMPREHENSIVE | Routin | 12/15/2016 | | Results for this | | METABOLIC PANEL | e | 5:40 AM | | procedure are in the | | | | PDT | | results section. | + +--------+ + + + | POC GLUCOSE | Routin | 12/15/2016 | | Results for this | | | e | 5:34 AM | | procedure are in the | | | | PDT | | results section. | + +--------+ + + + | MRSA NAAT | Timed | 12/15/2016 | | Results for this | | | | 4:17 AM | | procedure are in the | | | | PDT | | results section. | + +--------+ + + + | CULTURE, WOUND, | Timed | 12/15/2016 | | Results for this | | SMEAR, W/ANAEROBE | | 2:57 AM | | procedure are in the | | | | PDT | | results section. | + +--------+ + + + | POC GLUCOSE | Routin | 12/15/2016 | | Results for this | | | e | 1:22 AM | | procedure are in the | | | | PDT | | results section. | + +--------+ + + + | COMPREHENSIVE | Routin | 12/15/2016 | | Results for this | | METABOLIC PANEL | e | 1:19 AM | | procedure are in the | | | | PDT | | results section. | + +--------+ + + + | MRI FOOT LEFT WO | Routin | 12/15/2016 | | Results for this | | CONTRAST | e | 12:07 AM | | procedure are in the | | | | PDT | | results section. | + +--------+ + + + | POC GLUCOSE | Routin | 12/14/2016 | | Results for this | | | e | 11:34 PM | | procedure are in the | | | | PDT | | results section. | + +--------+ + + + | CULTURE, BLOOD, 2ND | Timed | 12/14/2016 | | Results for this | | SPECIMEN (NON-ORD) | | 10:40 PM | | procedure are in the | | | | PDT | | results section. | + +--------+ + + + | LACTIC ACID | Routin | 12/14/2016 | | Results for this | | | e | 10:40 PM | | procedure are in the | | | | PDT | | results section. | + +--------+ + + + | EXTERNAL LAB: CBC | Routin | 12/14/2016 | | Results for this | | | e | 9:45 PM | | procedure are in the | | | | PDT | | results section. | + +--------+ + + + | SEDIMENTATION RATE, | Routin | 12/14/2016 | | Results for this | | AUTOMATED | e | 9:45 PM | | procedure are in the | | | | PDT | | results section. | + +--------+ + + + | C-REACTIVE PROTEIN | Routin | 12/14/2016 | | Results for this | | | e | 9:45 PM | | procedure are in the | | | | PDT | | results section. | + +--------+ + + + | KETONES, BLOOD | Routin | 12/14/2016 | | Results for this | | | e | 9:45 PM | | procedure are in the | | | | PDT | | results section. | + +--------+ + + + | COMPREHENSIVE | Routin | 12/14/2016 | | Results for this | | METABOLIC PANEL | e | 9:45 PM | | procedure are in the | | | | PDT | | results section. | + +--------+ + + + | CULTURE, BLOOD | Timed | 12/14/2016 | | Results for this | | | | 9:40 PM | | procedure are in the | | | | PDT | | results section. | + +--------+ + + + documented in this encounter Results POC Glucose (12/20/2016 10:56 AM PDT) + + + + + + | Component | Value | Ref Range | Performed | Pathologist | | | | | At | Signature | + + + + + + | Glucose, | 175 (H)Comment: Testing | 65 - 99 mg/dL | EXTERNAL | | | Fingerstick | performed at [facility];88 | | LAB | | | | [address];[place] | | | | | | [address] | | | | + + + + + + + + | Specimen | + + | | + + + +---------+ + + | Performing | Address | City/State/Zipcode | Phone Number | | Organization | | | | + +---------+ + + | EXTERNAL LAB | | | | + +---------+ + + Sedimentation rate, automated (12/20/2016 7:26 AM PDT) + + + + + + | Component | Value | Ref Range | Performed | Pathologist | | | | | At | Signature | + + + + + + | Sed Rate | 115 (H)Comment: Testing | 0 - 15 mm/Hr | EXTERNAL | | | | performed at [facility];[address] | | LAB | | | | [address];[place], [place] | | | | | | [address] | | | | + + + + + + + + | Specimen | + + | Blood specimen | | (specimen) | + + + +---------+ + + | Performing | Address | City/State/Zipcode | Phone Number | | Organization | | | | + +---------+ + + | EXTERNAL LAB | | | | + +---------+ + + CBC with Manual Differential (12/20/2016 7:26 AM PDT) + + + + + + | Component | Value | Ref Range | Performed | Pathologist | | | | | At | Signature | + + + + + + | WBC | 7.36Comment: Testing | 3.80 - 11.00 | EXTERNAL | | | | performed at [facility];[address] | K/uL | LAB | | | | [address];[place] | | | | | | [address] | | | | + + + + + + | RED CELL | 4.00 (L)Comment: Testing | 4.20 - 5.70 | EXTERNAL | | | COUNT | performed at [facility];[address] | M/uL | LAB | | | | [address];[place] | | | | | | [address] | | | | + + + + + + | Hgb | 11.6 (L)Comment: Testing | 13.2 - 17.0 | EXTERNAL | | | | performed at [facility];888 | g/dL | LAB | | | | [address];[place] | | | | | | [address] | | | | + + + + + + | Hematocrit, | 33.9 (L)Comment: Testing | 39.0 - 50.0 % | EXTERNAL | | | POC | performed at [facility];[address] | | LAB | | | | [address];[place] | | | | | | [address] | | | | + + + + + + | MCV | 84.7Comment: Testing | 80.0 - 100.0 fl | EXTERNAL | | | | performed at [facility];[address] | | LAB | | | | [address];[place] | | | | | | [address] | | | | + + + + + + | MCH | 28.9Comment: Testing | 27.0 - 34.0 pg | EXTERNAL | | | | performed at [facility];[address] | | LAB | | | | [address];[place] | | | | | | [address] | | | | + + + + + + | MCHC | 34.1Comment: Testing | 32.0 - 35.5 | EXTERNAL | | | | performed at [facility];888 | g/dL | LAB | | | | [address];[place] | | | | | | [address] | | | | + + + + + + | RDW-CV | 42.0Comment: Testing | 37 - 53 fl | EXTERNAL | | | | performed at [facility];[address] | | LAB | | | | [address];[place] | | | | | | [address] | | | | + + + + + + | Platelet | 392Comment: Testing | 150 - 400 K/uL | EXTERNAL | | | Count | performed at [facility];[address] | | LAB | | | Plasma | [address];[place] | | | | | | [address] | | | | + + + + + + | MPV | 7.0Comment: Testing | fl | EXTERNAL | | | | performed at [facility];[address] | | LAB | | | | [address];[place] | | | | | | [address] | | | | + + + + + + | Differentia | MANUALComment: Testing | | EXTERNAL | | | l Type | performed at [facility];[address] | | LAB | | | | [address];[place] | | | | | | [address] | | | | + + + + + + | Segmented | 69Comment: Testing | % | EXTERNAL | | | Neutrophils | performed at [facility];[address] | | LAB | | | Manual | [address];[place] | | | | | | [address] | | | | + + + + + + | Lymphocytes | 21Comment: Testing | % | EXTERNAL | | | Manual | performed at [facility];[address] | | LAB | | | | [address];[place] | | | | | | [address] | | | | + + + + + + | Monocytes | 4Comment: Testing | % | EXTERNAL | | | Manual | performed at [facility];[address] | | LAB | | | | [address];[place] | | | | | | [address] | | | | + + + + + + | Eosinophils | 6Comment: Testing | % | EXTERNAL | | | Manual | performed at [facility];[address] | | LAB | | | | [address];[place] | | | | | | [address] | | | | + + + + + + | Absolute | 5.08Comment: Testing | 1.90 - 7.40 | EXTERNAL | | | Neutrophils | performed at [facility];[address] | K/uL | LAB | | | | [address];[place] | | | | | | [address] | | | | + + + + + + | Absolute | 1.55Comment: Testing | 1.00 - 3.90 | EXTERNAL | | | Lymphocytes | performed at [facility];[address] | K/uL | LAB | | | | [address];[place] | | | | | | [address] | | | | + + + + + + | Absolute | 0.29Comment: Testing | 0.00 - 0.80 | EXTERNAL | | | Monocytes | performed at [facility];[address] | K/uL | LAB | | | | [address];[place] | | | | | | [address] | | | | + + + + + + | Absolute | 0.44Comment: Testing | 0.00 - 0.50 | EXTERNAL | | | Eosinophils | performed at [facility];[address] | K/uL | LAB | | | | [address];[place] | | | | | | [address] | | | | + + + + + + | RBC | NORMALComment: Testing | | EXTERNAL | | | Morphology | performed at [facility];[address] | | LAB | | | | [address];[place] | | | | | | [address] | | | | + + + + + + + + | Specimen | + + | Blood specimen | | (specimen) | + + + +---------+ + + | Performing | Address | City/State/Zipcode | Phone Number | | Organization | | | | + +---------+ + + | EXTERNAL LAB | | | | + +---------+ + + C-Reactive Protein (12/20/2016 7:26 AM PDT) + + + + + + | Component | Value | Ref Range | Performed | Pathologist | | | | | At | Signature | + + + + + + | CRP | 2.9 (H)Comment: Testing | mg/dL | EXTERNAL | | | | performed at [facility];[address] | | LAB | | | | [address];[place] | | | | | | [address] | | | | + + + + + + + + | Specimen | + + | Blood specimen | | (specimen) | + + + +---------+ + + | Performing | Address | City/State/Zipcode | Phone Number | | Organization | | | | + +---------+ + + | EXTERNAL LAB | | | | + +---------+ + + POC Glucose (12/20/2016 5:55 AM PDT) + + + + + + | Component | Value | Ref Range | Performed | Pathologist | | | | | At | Signature | + + + + + + | Glucose, | 270 (H)Comment: Testing | 65 - 99 mg/dL | EXTERNAL | | | Fingerstick | performed at [facility];[address] | | LAB | | | | [address];[place], [place] | | | | | | [address] | | | | + + + + + + + + | Specimen | + + | | + + + +---------+ + + | Performing | Address | City/State/Zipcode | Phone Number | | Organization | | | | + +---------+ + + | EXTERNAL LAB | | | | + +---------+ + + POC Glucose (12/19/2016 9:32 PM PDT) + + + + + + | Component | Value | Ref Range | Performed | Pathologist | | | | | At | Signature | + + + + + + | Glucose, | 134 (H)Comment: Testing | 65 - 99 mg/dL | EXTERNAL | | | Fingerstick | performed at [facility];[address] | | LAB | | | | [address];[place] | | | | | | [address] | | | | + + + + + + + + | Specimen | + + | | + + + +---------+ + + | Performing | Address | City/State/Zipcode | Phone Number | | Organization | | | | + +---------+ + + | EXTERNAL LAB | | | | + +---------+ + + POC Glucose (12/19/2016 4:16 PM PDT) + + + + + + | Component | Value | Ref Range | Performed | Pathologist | | | | | At | Signature | + + + + + + | Glucose, | 214 (H)Comment: Testing | 65 - 99 mg/dL | EXTERNAL | | | Fingerstick | performed at [facility];[address] | | LAB | | | | [address];[place] | | | | | | [address] | | | | + + + + + + + + | Specimen | + + | | + + + +---------+ + + | Performing | Address | City/State/Zipcode | Phone Number | | Organization | | | | + +---------+ + + | EXTERNAL LAB | | | | + +---------+ + + POC Glucose (12/19/2016 11:34 AM PDT) + + + + + + | Component | Value | Ref Range | Performed | Pathologist | | | | | At | Signature | + + + + + + | Glucose, | 162 (H)Comment: Testing | 65 - 99 mg/dL | EXTERNAL | | | Fingerstick | performed at [facility];[address] | | LAB | | | | [address];[place] | | | | | | [address] | | | | + + + + + + + + | Specimen | + + | | + + + +---------+ + + | Performing | Address | City/State/Zipcode | Phone Number | | Organization | | | | + +---------+ + + | EXTERNAL LAB | | | | + +---------+ + + POC Glucose (12/19/2016 6:00 AM PDT) + + + + + + | Component | Value | Ref Range | Performed | Pathologist | | | | | At | Signature | + + + + + + | Glucose, | 206 (H)Comment: Testing | 65 - 99 mg/dL | EXTERNAL | | | Fingerstick | performed at [facility];[address] | | LAB | | | | [address];[place], [place] | | | | | | [address] | | | | + + + + + + + + | Specimen | + + | | + + + +---------+ + + | Performing | Address | City/State/Zipcode | Phone Number | | Organization | | | | + +---------+ + + | EXTERNAL LAB | | | | + +---------+ + + POC Glucose (12/18/2016 9:54 PM PDT) + + + + + + | Component | Value | Ref Range | Performed | Pathologist | | | | | At | Signature | + + + + + + | Glucose, | 275 (H)Comment: Testing | 65 - 99 mg/dL | EXTERNAL | | | Fingerstick | performed at [facility];[address] | | LAB | | | | [address];[place] | | | | | | [address] | | | | + + + + + + + + | Specimen | + + | | + + + +---------+ + + | Performing | Address | City/State/Zipcode | Phone Number | | Organization | | | | + +---------+ + + | EXTERNAL LAB | | | | + +---------+ + + POC Glucose (12/18/2016 3:56 PM PDT) + + + + + + | Component | Value | Ref Range | Performed | Pathologist | | | | | At | Signature | + + + + + + | Glucose, | 214 (H)Comment: Testing | 65 - 99 mg/dL | EXTERNAL | | | Fingerstick | performed at [facility];[address] | | LAB | | | | [address];[place], [place] | | | | | | [address] | | | | + + + + + + + + | Specimen | + + | | + + + +---------+ + + | Performing | Address | City/State/Zipcode | Phone Number | | Organization | | | | + +---------+ + + | EXTERNAL LAB | | | | + +---------+ + + POC Glucose (12/18/2016 11:32 AM PDT) + + + + + + | Component | Value | Ref Range | Performed | Pathologist | | | | | At | Signature | + + + + + + | Glucose, | 136 (H)Comment: Testing | 65 - 99 mg/dL | EXTERNAL | | | Fingerstick | performed at [facility];[address] | | LAB | | | | [address];[place] | | | | | | [address] | | | | + + + + + + + + | Specimen | + + | | + + + +---------+ + + | Performing | Address | City/State/Zipcode | Phone Number | | Organization | | | | + +---------+ + + | EXTERNAL LAB | | | | + +---------+ + + HISTORICAL MICROBIOLOGY RESULT (12/18/2016 6:34 AM PDT) + + | Specimen | + + | | + + + + + | Narrative | Performed At | + + + | GDH ANTIGEN NEGATIVE Testing | EXTERNAL LAB | | performed at [facility];[address] [place] [address];[place] [address] TOXIN A | | | NEGATIVE Testing performed at | | | [facility];[address] [facility];[place] [address] C DIFF INTERPRETATION | | | Negative for toxigenic C.difficile. Testing performed at | | | [facility];[address] [place] [address];[place] [address] | | + + + + +---------+ + + | Performing | Address | City/State/Zipcode | Phone Number | | Organization | | | | + +---------+ + + | EXTERNAL LAB | | | | + +---------+ + + POC Glucose (12/18/2016 6:23 AM PDT) + + + + + + | Component | Value | Ref Range | Performed | Pathologist | | | | | At | Signature | + + + + + + | Glucose, | 181 (H)Comment: Testing | 65 - 99 mg/dL | EXTERNAL | | | Fingerstick | performed at [facility];[address] | | LAB | | | | [address];[place] | | | | | | [address] | | | | + + + + + + + + | Specimen | + + | | + + + +---------+ + + | Performing | Address | City/State/Zipcode | Phone Number | | Organization | | | | + +---------+ + + | EXTERNAL LAB | | | | + +---------+ + + External Lab: CHARITY (12/18/2016 5:11 AM PDT) + + + + + + | Component | Value | Ref Range | Performed | Pathologist | | | | | At | Signature | + + + + + + | WBC | 10.99Comment: Testing | 3.80 - 11.00 | EXTERNAL | | | | performed at [facility], [address] | K/uL | LAB | | | | [address], | | | | | | [place] [address] | | | | + + + + + + | RED CELL | 3.92 (L)Comment: Testing | 4.20 - 5.70 | EXTERNAL | | | COUNT | performed at [facility], [address] | M/uL | LAB | | | | [address], | | | | | | [place] [address] | | | | + + + + + + | Hgb | 11.2 (L)Comment: Testing | 13.2 - 17.0 | EXTERNAL | | | | performed at [facility], [address] | g/dL | LAB | | | | [address], | | | | | | [place] [address] | | | | + + + + + + | Hematocrit, | 33.6 (L)Comment: Testing | 39.0 - 50.0 % | EXTERNAL | | | POC | performed at [facility], [address] | | LAB | | | | [address], | | | | | | [place] [address] | | | | + + + + + + | MCV | 85.9Comment: Testing | 80.0 - 100.0 fl | EXTERNAL | | | | performed at [facility], [address] | | LAB | | | | [address], | | | | | | [place] [address] | | | | + + + + + + | MCH | 28.7Comment: Testing | 27.0 - 34.0 pg | EXTERNAL | | | | performed at [facility], [address] | | LAB | | | | [address], | | | | | | [place] [address] | | | | + + + + + + | MCHC | 33.4Comment: Testing | 32.0 - 35.5 | EXTERNAL | | | | performed at [facility], [address] | g/dL | LAB | | | | [address], | | | | | | [place] [address] | | | | + + + + + + | RDW-CV | 41.1Comment: Testing | 37 - 53 fl | EXTERNAL | | | | performed at [facility], [address] | | LAB | | | | [address], | | | | | | [place] [address] | | | | + + + + + + | Platelet | 341Comment: Testing | 150 - 400 K/uL | EXTERNAL | | | Count | performed at [facility], [address] | | LAB | | | Plasma | [address], | | | | | | [place] [address] | | | | + + + + + + | MPV | 7.6Comment: Testing | fl | EXTERNAL | | | | performed at [facility], [address] | | LAB | | | | [address], | | | | | | [place] [address] | | | | + + + + + + | Differentia | AUTOMATEDComment: | | EXTERNAL | | | l Type | Testing performed at | | LAB | | | | [facility], [address] | | | | | | [place] | | | | | | [address] | | | | + + + + + + | % Segmented | 76.22Comment: Testing | % | EXTERNAL | | | | performed at [facility], [address] | | LAB | | | Neutrophils | [address], | | | | | | [place] [address] | | | | + + + + + + | % | 12.04Comment: Testing | % | EXTERNAL | | | Lymphocytes | performed at [facility], [address] | | LAB | | | | [address], | | | | | | [place] [address] | | | | + + + + + + | % Monocytes | 6.15Comment: Testing | % | EXTERNAL | | | | performed at [facility], [address] | | LAB | | | | [address], | | | | | | [place] [address] | | | | + + + + + + | % | 4.73Comment: Testing | % | EXTERNAL | | | Eosinophils | performed at [facility], [address] | | LAB | | | | [address], | | | | | | [place] [address] | | | | + + + + + + | % Basophils | 0.86Comment: Testing | % | EXTERNAL | | | | performed at [facility], [address] | | LAB | | | | [address], | | | | | | [place] [address] | | | | + + + + + + | Absolute | 8.38 (H)Comment: Testing | 1.90 - 7.40 | EXTERNAL | | | Segmented | performed at [facility], [address] | K/uL | LAB | | | Neutrophils | [address], | | | | | | [place] [address] | | | | + + + + + + | Absolute | 1.32Comment: Testing | 1.00 - 3.90 | EXTERNAL | | | Lymphocytes | performed at [facility], [address] | K/uL | LAB | | | | [address], | | | | | | [place] [address] | | | | + + + + + + | Absolute | 0.68Comment: Testing | 0.00 - 0.80 | EXTERNAL | | | Monocytes | performed at [facility], [address] | K/uL | LAB | | | | [address], | | | | | | [place] [address] | | | | + + + + + + | Absolute | 0.52 (H)Comment: Testing | 0.00 - 0.50 | EXTERNAL | | | Eosinophils | performed at [facility], [address] | K/uL | LAB | | | | [address], | | | | | | [place] [address] | | | | + + + + + + | Absolute | 0.10Comment: Testing | 0.00 - 0.10 | EXTERNAL | | | Basophils | performed at [facility], [address] | K/uL | LAB | | | | [address], | | | | | | [place] [address] | | | | + + + + + + + + | Specimen | + + | Blood specimen | | (specimen) | + + + +---------+ + + | Performing | Address | City/State/Zipcode | Phone Number | | Organization | | | | + +---------+ + + | EXTERNAL LAB | | | | + +---------+ + + Basic Metabolic Panel (12/18/2016 5:11 AM PDT) + + + + + + | Component | Value | Ref Range | Performed | Pathologist | | | | | At | Signature | + + + + + + | Na | 138Comment: Testing | 135 - 145 | EXTERNAL | | | | performed at [facility], [address] | mmol/L | LAB | | | | [address], | | | | | | [place] [address] | | | | + + + + + + | K | 3.8Comment: Testing | 3.5 - 4.9 | EXTERNAL | | | | performed at [facility], [address] | mmol/L | LAB | | | | [address], | | | | | | [place] [address] | | | | + + + + + + | Cl | 105Comment: Testing | 99 - 109 mmol/L | EXTERNAL | | | | performed at [facility], [address] | | LAB | | | | [address], | | | | | | [place] [address] | | | | + + + + + + | CO2 | 25Comment: Testing | 23 - 32 mmol/L | EXTERNAL | | | | performed at [facility], [address] | | LAB | | | | [address], | | | | | | [place] [address] | | | | + + + + + + | Anion Gap | 12Comment: Testing | 5 - 20 mmol/L | EXTERNAL | | | | performed at [facility], [address] | | LAB | | | | [address], | | | | | | [place] [address] | | | | + + + + + + | Glucose, | 236 (H)Comment: Testing | 65 - 99 mg/dL | EXTERNAL | | | Fasting | performed at [facility], [address] | | LAB | | | | [address], | | | | | | [place] [address] | | | | + + + + + + | BUN | 6 (L)Comment: Testing | 8 - 25 mg/dL | EXTERNAL | | | | performed at [facility], [address] | | LAB | | | | [address], | | | | | | [place] [address] | | | | + + + + + + | Creatinine | 0.9Comment: Testing | 0.70 - 1.30 | EXTERNAL | | | | performed at [facility], [address] | mg/dL | LAB | | | | [address], | | | | | | [place] [address] | | | | + + + + + + | BUN/Creatin | 7Comment: Testing | | EXTERNAL | | | ine Ratio | performed at [facility], [address] | | LAB | | | | [address], | | | | | | [place] [address] | | | | + + + + + + | Calcium | 8.3 (L)Comment: Testing | 8.5 - 10.5 | EXTERNAL | | | | performed at [facility], [address] | mg/dL | LAB | | | | [address], | | | | | | [place] [place] [address] | | | | + + + + + + | Estimated | >60Comment: GFR <60: | mL/min/1.73m2 | EXTERNAL | | | GFR | CHRONIC KIDNEY DISEASE, | | LAB | | | | IF FOUND OVER A 3 MONTH | | | | | | PERIOD.GFR <15: KIDNEY | | | | | | FAILURE.FOR | | | | | | AMERICANS, MULTIPLY THE | | | | | | CALCULATED GFR BY | | | | | | 1.210.Testing performed | | | | | | at [facility], [address] | | | | | [address], | | | | | | [place] [address] | | | | + + + + + + + + | Specimen | + + | Blood specimen | | (specimen) | + + + +---------+ + + | Performing | Address | City/State/Zipcode | Phone Number | | Organization | | | | + +---------+ + + | EXTERNAL LAB | | | | + +---------+ + + POC Glucose (12/17/2016 9:50 PM PDT) + + + + + + | Component | Value | Ref Range | Performed | Pathologist | | | | | At | Signature | + + + + + + | Glucose, | 358 (H)Comment: Testing | 65 - 99 mg/dL | EXTERNAL | | | Fingerstick | performed at [facility];[address] | | LAB | | | | [address];[place] | | | | | | [address] | | | | + + + + + + + + | Specimen | + + | | + + + +---------+ + + | Performing | Address | City/State/Zipcode | Phone Number | | Organization | | | | + +---------+ + + | EXTERNAL LAB | | | | + +---------+ + + Vancomycin, Trough (12/17/2016 7:55 PM PDT) + + + + + + | Component | Value | Ref Range | Performed | Pathologist | | | | | At | Signature | + + + + + + | Vancomycin | 17.4Comment: 15 to 20 | 10 - 20 ug/mL | EXTERNAL | | | Trough | ug/mL for meningitis, | | LAB | | | | osteomyelitis, | | | | | | endocarditis, sepsis, or | | | | | | healthcare associated | | | | | | pneumonia, or an CATHERINE | | | | | | equal to or greater than | | | | | | 1.0 ug/mLTesting | | | | | | performed at [facility];[address] | | | | | | [address];[place] | | | | | | [address] | | | | + + + + + + + + | Specimen | + + | Blood specimen | | (specimen) | + + + +---------+ + + | Performing | Address | City/State/Zipcode | Phone Number | | Organization | | | | + +---------+ + + | EXTERNAL LAB | | | | + +---------+ + + POC Glucose (12/17/2016 4:36 PM PDT) + + + + + + | Component | Value | Ref Range | Performed | Pathologist | | | | | At | Signature | + + + + + + | Glucose, | 216 (H)Comment: Testing | 65 - 99 mg/dL | EXTERNAL | | | Fingerstick | performed at [facility];[address] | | LAB | | | | [address];[place], [place] | | | | | | [address] | | | | + + + + + + + + | Specimen | + + | | + + + +---------+ + + | Performing | Address | City/State/Zipcode | Phone Number | | Organization | | | | + +---------+ + + | EXTERNAL LAB | | | | + +---------+ + + POC Glucose (12/17/2016 9:38 AM PDT) + + + + + + | Component | Value | Ref Range | Performed | Pathologist | | | | | At | Signature | + + + + + + | Glucose, | 132 (H)Comment: Testing | 65 - 99 mg/dL | EXTERNAL | | | Fingerstick | performed at [facility];[address] | | LAB | | | | [address];[place] | | | | | | [address] | | | | + + + + + + + + | Specimen | + + | | + + + +---------+ + + | Performing | Address | City/State/Zipcode | Phone Number | | Organization | | | | + +---------+ + + | EXTERNAL LAB | | | | + +---------+ + + POC Glucose (12/17/2016 8:56 AM PDT) + + + + + + | Component | Value | Ref Range | Performed | Pathologist | | | | | At | Signature | + + + + + + | Glucose, | 51 (L)Comment: Testing | 65 - 99 mg/dL | EXTERNAL | | | Fingerstick | performed at [facility];[address] | | LAB | | | | [address];[place] | | | | | | [address] | | | | + + + + + + + + | Specimen | + + | | + + + +---------+ + + | Performing | Address | City/State/Zipcode | Phone Number | | Organization | | | | + +---------+ + + | EXTERNAL LAB | | | | + +---------+ + + External Lab: CBC (12/17/2016 5:24 AM PDT) + + + + + + | Component | Value | Ref Range | Performed | Pathologist | | | | | At | Signature | + + + + + + | WBC | 14.59 (H)Comment: | 3.80 - 11.00 | EXTERNAL | | | | Testing performed at | K/uL | LAB | | | | [facility], [address] | | | | | | [place] | | | | | | [address] | | | | + + + + + + | RED CELL | 4.13 (L)Comment: Testing | 4.20 - 5.70 | EXTERNAL | | | COUNT | performed at [facility], [address] | [address] | LAB | | | | [address], | | | | | | [place] [address] | | | | + + + + + + | Hgb | 11.7 (L)Comment: Testing | 13.2 - 17.0 | EXTERNAL | | | | performed at [facility], [address] | g/dL | LAB | | | | [address], | | | | | | [place] [address] | | | | + + + + + + | Hematocrit, | 34.8 (L)Comment: Testing | 39.0 - 50.0 % | EXTERNAL | | | POC | performed at [facility], [address] | | LAB | | | | [address], | | | | | | [place] [address] | | | | + + + + + + | MCV | 84.2Comment: Testing | 80.0 - 100.0 fl | EXTERNAL | | | | performed at [facility], [address] | | LAB | | | | [address], | | | | | | [place] [address] | | | | + + + + + + | MCH | 28.2Comment: Testing | 27.0 - 34.0 pg | EXTERNAL | | | | performed at [facility], [address] | | LAB | | | | [address], | | | | | | [place] [address] | | | | + + + + + + | MCHC | 33.5Comment: Testing | 32.0 - 35.5 | EXTERNAL | | | | performed at [facility], [address] | g/dL | LAB | | | | [address], | | | | | | [place] [address] | | | | + + + + + + | RDW-CV | 42.0Comment: Testing | 37 - 53 fl | EXTERNAL | | | | performed at [facility], [address] | | LAB | | | | [address], | | | | | | [place] [address] | | | | + + + + + + | Platelet | 329Comment: Testing | 150 - 400 K/uL | EXTERNAL | | | Count | performed at [facility], [address] | | LAB | | | Plasma | [address], | | | | | | [place] [address] | | | | + + + + + + | MPV | 7.9Comment: Testing | fl | EXTERNAL | | | | performed at [facility], [address] | | LAB | | | | [address], | | | | | | [place] [address] | | | | + + + + + + | Differentia | AUTOMATEDComment: | | EXTERNAL | | | l Type | Testing performed at | | LAB | | | | [facility], [address] | | | | | | [place] | | | | | | [address] | | | | + + + + + + | % Segmented | 83.29Comment: Testing | % | EXTERNAL | | | | performed at [facility], [address] | | LAB | | | Neutrophils | [address], | | | | | | [place] [address] | | | | + + + + + + | % | 8.71Comment: Testing | % | EXTERNAL | | | Lymphocytes | performed at [facility], [address] | | LAB | | | | [address], | | | | | | [place] [address] | | | | + + + + + + | % Monocytes | 5.08Comment: Testing | % | EXTERNAL | | | | performed at [facility], [address] | | LAB | | | | [address], | | | | | | [place] [address] | | | | + + + + + + | % | 2.32Comment: Testing | % | EXTERNAL | | | Eosinophils | performed at [facility], [address] | | LAB | | | | [address], | | | | | | [place] [address] | | | | + + + + + + | % Basophils | 0.60Comment: Testing | % | EXTERNAL | | | | performed at [facility], [address] | | LAB | | | | [address], | | | | | | [place] [address] | | | | + + + + + + | Absolute | 12.15 (H)Comment: | 1.90 - 7.40 | EXTERNAL | | | Segmented | Testing performed at | K/uL | LAB | | | Neutrophils | [facility], [address] | | | | | | [place] | | | | | | [address] | | | | + + + + + + | Absolute | 1.27Comment: Testing | 1.00 - 3.90 | EXTERNAL | | | Lymphocytes | performed at [facility], [address] | K[address] | LAB | | | | [address], | | | | | | [place] [address] | | | | + + + + + + | Absolute | 0.74Comment: Testing | 0.00 - 0.80 | EXTERNAL | | | Monocytes | performed at [facility], [address] | K[address] | LAB | | | | [address], | | | | | | [place] [address] | | | | + + + + + + | Absolute | 0.34Comment: Testing | 0.00 - 0.50 | EXTERNAL | | | Eosinophils | performed at [facility], [address] | [address] | LAB | | | [address], | | | | | | [place] [address] | | | | + + + + + + | Absolute | 0.09Comment: Testing | 0.00 - 0.10 | EXTERNAL | | | Basophils | performed at [facility], [address] | [address] | LAB | | | | [address], | | | | | | [place] [address] | | | | + + + + + + + + | Specimen | + + | Blood specimen | | (specimen) | + + + +---------+ + + | Performing | Address | City/State/Zipcode | Phone Number | | Organization | | | | + +---------+ + + | EXTERNAL LAB | | | | + +---------+ + + Basic Metabolic Panel (12/17/2016 5:24 AM PDT) + + + + + + | Component | Value | Ref Range | Performed | Pathologist | | | | | At | Signature | + + + + + + | Na | 138Comment: Testing | 135 - 145 | EXTERNAL | | | | performed at [facility], [address] | mmol/L | LAB | | | | [address], | | | | | | [place] [address] | | | | + + + + + + | K | 3.8Comment: Testing | 3.5 - 4.9 | EXTERNAL | | | | performed at [facility], [address] | mmol/L | LAB | | | | [address], | | | | | | [place] [address] | | | | + + + + + + | Cl | 104Comment: Testing | 99 - 109 mmol/L | EXTERNAL | | | | performed at [facility], [address] | | LAB | | | | [address], | | | | | | [place] [address] | | | | + + + + + + | CO2 | 27Comment: Testing | 23 - 32 mmol/L | EXTERNAL | | | | performed at [facility], [address] | | LAB | | | | [address], | | | | | | [place] [address] | | | | + + + + + + | Anion Gap | 11Comment: Testing | 5 - 20 mmol/L | EXTERNAL | | | | performed at [facility], [address] | | LAB | | | | [address], | | | | | | [place] [address] | | | | + + + + + + | Glucose, | 196 (H)Comment: Testing | 65 - 99 mg/dL | EXTERNAL | | | Fasting | performed at [facility], [address] | | LAB | | | | [address], | | | | | | [place] [address] | | | | + + + + + + | BUN | 5 (L)Comment: Testing | 8 - 25 mg/dL | EXTERNAL | | | | performed at [facility], [address] | | LAB | | | | [address], | | | | | | [place] [address] | | | | + + + + + + | Creatinine | 0.9Comment: Testing | 0.70 - 1.30 | EXTERNAL | | | | performed at [facility], [address] | mg/dL | LAB | | | | [address], | | | | | | [place] [address] | | | | + + + + + + | BUN/Creatin | 6Comment: Testing | | EXTERNAL | | | ine Ratio | performed at [facility], [address] | | LAB | | | | [address], | | | | | | [place] [address] | | | | + + + + + + | Calcium | 8.4 (L)Comment: Testing | 8.5 - 10.5 | EXTERNAL | | | | performed at [facility], [address] | mg/dL | LAB | | | | [address], | | | | | | [place] [address] | | | | + + + + + + | Estimated | >60Comment: GFR <60: | mL/min/1.73m2 | EXTERNAL | | | GFR | CHRONIC KIDNEY DISEASE, | | LAB | | | | IF FOUND OVER A 3 MONTH | | | | | | PERIOD.GFR <15: KIDNEY | | | | | | FAILURE.FOR | | | | | | AMERICANS, MULTIPLY THE | | | | | | CALCULATED GFR BY | | | | | | 1.210.Testing performed | | | | | | at [facility], [address] | | | | | | [address], | | | | | | [place] [address] | | | | + + + + + + + + | Specimen | + + | Blood specimen | | (specimen) | + + + +---------+ + + | Performing | Address | City/State/Zipcode | Phone Number | | Organization | | | | + +---------+ + + | EXTERNAL LAB | | | | + +---------+ + + POC Glucose (12/17/2016 5:15 AM PDT) + + + + + + | Component | Value | Ref Range | Performed | Pathologist | | | | | At | Signature | + + + + + + | Glucose, | 173 (H)Comment: Testing | 65 - 99 mg/dL | EXTERNAL | | | Fingerstick | performed at [facility];[address] | | LAB | | | | [address];[place] | | | | | | [address] | | | | + + + + + + + + | Specimen | + + | | + + + +---------+ + + | Performing | Address | City/State/Zipcode | Phone Number | | Organization | | | | + +---------+ + + | EXTERNAL LAB | | | | + +---------+ + + POC Glucose (12/16/2016 9:16 PM PDT) + + + + + + | Component | Value | Ref Range | Performed | Pathologist | | | | | At | Signature | + + + + + + | Glucose, | 287 (H)Comment: Testing | 65 - 99 mg/dL | EXTERNAL | | | Fingerstick | performed at [facility];[address] | | LAB | | | | [address];[place] | | | | | | [address] | | | | + + + + + + + + | Specimen | + + | | + + + +---------+ + + | Performing | Address | City/State/Zipcode | Phone Number | | Organization | | | | + +---------+ + + | EXTERNAL LAB | | | | + +---------+ + + Vancomycin, Trough (12/16/2016 7:37 PM PDT) + + + + + + | Component | Value | Ref Range | Performed | Pathologist | | | | | At | Signature | + + + + + + | Vancomycin | 18.8Comment: 15 to 20 | 10 - 20 ug/mL | EXTERNAL | | | Trough | ug/mL for meningitis, | | LAB | | | | osteomyelitis, | | | | | | endocarditis, sepsis, or | | | | | | healthcare associated | | | | | | pneumonia, or an CATHERINE | | | | | | equal to or greater than | | | | | | 1.0 ug/mLTesting | | | | | | performed at [facility] | | | | | | [facility];[place], [place] | | | | | | [address] | | | | + + + + + + + + | Specimen | + + | Blood specimen | | (specimen) | + + + +---------+ + + | Performing | Address | City/State/Zipcode | Phone Number | | Organization | | | | + +---------+ + + | EXTERNAL LAB | | | | + +---------+ + + POC Glucose (12/16/2016 5:56 PM PDT) + + + + + + | Component | Value | Ref Range | Performed | Pathologist | | | | | At | Signature | + + + + + + | Glucose, | 129 (H)Comment: Testing | 65 - 99 mg/dL | EXTERNAL | | | Fingerstick | performed at [facility];[address] | | LAB | | | | [address];[place] | | | | | | [address] | | | | + + + + + + + + | Specimen | + + | | + + + +---------+ + + | Performing | Address | City/State/Zipcode | Phone Number | | Organization | | | | + +---------+ + + | EXTERNAL LAB | | | | + +---------+ + + POC Glucose (12/16/2016 11:56 AM PDT) + + + + + + | Component | Value | Ref Range | Performed | Pathologist | | | | | At | Signature | + + + + + + | Glucose, | 97Comment: Testing | 65 - 99 mg/dL | EXTERNAL | | | Fingerstick | performed at [facility];[address] | | LAB | | | | [address];[place], [place] | | | | | | [address] | | | | + + + + + + + + | Specimen | + + | | + + + +---------+ + + | Performing | Address | City/State/Zipcode | Phone Number | | Organization | | | | + +---------+ + + | EXTERNAL LAB | | | | + +---------+ + + XR Foot Left 3 + Vw (12/16/2016 8:37 AM PDT) + + | Specimen | + + | | + + + + + | Impressions | Performed At | + + + | 1. Recent amputation of the LEFT 4th toe. 2. No radiographic | | | evidence of residual osteomyelitis in the remaining ossicles of the | | | LEFT forefoot. 3. Moderately extensive vascular calcifications. | | | | | + + + + + + | Narrative | Performed At | + + + | [facility]UL[facility] Jaquan [facility] XR FOOT LEFT 12/16/2016 8:37 AM History: 51 | | | years. Male. Osteomyelitis and soft tissue abscess of the LEFT 4th | | | toe. Radiography status post LEFT 4th toe amputation. | | | Technique: AP, oblique, and lateral views of the foot. | | | Comparison exam: MRI of the LEFT foot 12/14/16 FINDINGS: The | | | LEFT 4th toe is now been amputated. The distal cortex of the head of | | | the 4th metatarsal ossicle is also been partially removed. Some | | | residual gas visualized in the soft tissues surrounding the distal | | | aspect of the LEFT 4th metatarsal ossicle. All other phalanges | | | appear intact without cortical erosion or osteolysis. The remaining | | | metatarsal ossicles are likewise normal. Joint spaces are | | | well-maintained throughout the remainder of the foot. Bone density | | | is normal. Vascular calcifications are moderate in the region of | | | the lower LEFT leg and ankle. | | + + + + + | Procedure Note | + + | Leonard, Rad Conversion - 05/16/2019 2:48 AM PDT K[facility] ARNDT FOOT LEFT12/16/2016 | | 8:37 AM History: 51 years. Male. Osteomyelitis and soft tissue abscess of the LEFT | | 4th toe. Radiography status post LEFT 4th toe amputation. Technique: AP, oblique, and | | lateral views of the foot. Comparison exam: MRI of the LEFT foot 12/14/16 FINDINGS: | | The LEFT 4th toe is now been amputated. The distal cortex of the head of the 4th | | metatarsal ossicle is also been partially removed. Some residual gas visualized in the | | soft tissues surrounding the distal aspect of the LEFT 4th metatarsal ossicle. All other | | phalanges appear intact without cortical erosion or osteolysis. The remaining | | metatarsal ossicles are likewise normal. Joint spaces are well-maintained throughout | | the remainder of the foot. Bone density is normal. Vascular calcifications are moderate | | in the region of the lower LEFT leg and ankle. IMPRESSION: 1. Recent amputation of | | the LEFT 4th toe.2. No radiographic evidence of residual osteomyelitis in the remaining | | ossicles of the LEFT forefoot.3. Moderately extensive vascular calcifications. | | | | | |Vascular calcifications are moderate in the region of the lower LEFT leg and ankle. | | | |IMPRESSION: | |1. Recent amputation of the LEFT 4th toe. | |2. No radiographic evidence of residual osteomyelitis in the remaining ossicles of the LEF T forefoot. | |3. Moderately extensive vascular calcifications. | | | | | + + External Lab: CBC (12/16/2016 5:51 AM PDT) + + + + + + | Component | Value | Ref Range | Performed | Pathologist | | | | | At | Signature | + + + + + + | WBC | 15.89 (H)Comment: | 3.80 - 11.00 | EXTERNAL | | | | Testing performed at | K/uL | LAB | | | | [facility], [address] [facility] | | | | | | [place] | | | | | | [address] | | | | + + + + + + | RED CELL | 4.31Comment: Testing | 4.20 - 5.70 | EXTERNAL | | | COUNT | performed at [facility], [address] | M/uL | LAB | | | | [address], | | | | | | [place] [address] | | | | + + + + + + | Hgb | 12.3 (L)Comment: Testing | 13.2 - 17.0 | EXTERNAL | | | | performed at [facility], [address] | g/dL | LAB | | | | [address], | | | | | | [place] [address] | | | | + + + + + + | Hematocrit, | 36.4 (L)Comment: Testing | 39.0 - 50.0 % | EXTERNAL | | | POC | performed at [facility], [address] | | LAB | | | | [address], | | | | | | [place] [address] | | | | + + + + + + | MCV | 84.5Comment: Testing | 80.0 - 100.0 fl | EXTERNAL | | | | performed at [facility], [address] | | LAB | | | [address], | | | | | | [place] [address] | | | | + + + + + + | MCH | 28.5Comment: Testing | 27.0 - 34.0 pg | EXTERNAL | | | | performed at [facility], [address] | | LAB | | | | [address], | | | | | | [place] [address] | | | | + + + + + + | MCHC | 33.8Comment: Testing | 32.0 - 35.5 | EXTERNAL | | | | performed at [facility], [address] | g/dL | LAB | | | | [address], | | | | | | [place] [address] | | | | + + + + + + | RDW-CV | 42.9Comment: Testing | 37 - 53 fl | EXTERNAL | | | | performed at [facility], [address] | | LAB | | | | [address], | | | | | | [place] [address] | | | | + + + + + + | Platelet | 307Comment: Testing | 150 - 400 K/uL | EXTERNAL | | | Count | performed at [facility], [address] | | LAB | | | Plasma | [address], | | | | | | [place] [address] | | | | + + + + + + | MPV | 8.0Comment: Testing | fl | EXTERNAL | | | | performed at [facility], [address] | | LAB | | | | [address], | | | | | | [place] [address] | | | | + + + + + + | Differentia | AUTOMATEDComment: | | EXTERNAL | | | l Type | Testing performed at | | LAB | | | | [facility], [address] | | | | | | [place] | | | | | | [address] | | | | + + + + + + | % Segmented | 85.00Comment: Testing | % | EXTERNAL | | | | performed at [facility], [address] | | LAB | | | Neutrophils | [address], | | | | | | [place] [address] | | | | + + + + + + | % | 7.15Comment: Testing | % | EXTERNAL | | | Lymphocytes | performed at [facility], [address] | | LAB | | | | [address], | | | | | | [place] [address] | | | | + + + + + + | % Monocytes | 5.39Comment: Testing | % | EXTERNAL | | | | performed at [facility], [address] | | LAB | | | [address], | | | | | | [place] [address] | | | | + + + + + + | % | 1.86Comment: Testing | % | EXTERNAL | | | Eosinophils | performed at [facility], [address] | | LAB | | | [address], | | | | | | [place] [address] | | | | + + + + + + | % Basophils | 0.60Comment: Testing | % | EXTERNAL | | | | performed at [facility], [address] | | LAB | | | | [address], | | | | | | [place] [address] | | | | + + + + + + | Absolute | 13.51 (H)Comment: | 1.90 - 7.40 | EXTERNAL | | | Segmented | Testing performed at | K/uL | LAB | | | Neutrophils | [facility], [address] | | | | | | [place] | | | | | | [address] | | | | + + + + + + | Absolute | 1.14Comment: Testing | 1.00 - 3.90 | EXTERNAL | | | Lymphocytes | performed at [facility], [address] | K/uL | LAB | | | | [address], | | | | | | [place] [address] | | | | + + + + + + | Absolute | 0.86 (H)Comment: Testing | 0.00 - 0.80 | EXTERNAL | | | Monocytes | performed at [facility], [address] | K/uL | LAB | | | | [address], | | | | | | [place] [address] | | | | + + + + + + | Absolute | 0.30Comment: Testing | 0.00 - 0.50 | EXTERNAL | | | Eosinophils | performed at [facility], [address] | K/uL | LAB | | | | [address], | | | | | | [place] [address] | | | | + + + + + + | Absolute | 0.10Comment: Testing | 0.00 - 0.10 | EXTERNAL | | | Basophils | performed at [facility], [address] | K/uL | LAB | | | | [address], | | | | | | [place] [address] | | | | + + + + + + + + | Specimen | + + | Blood specimen | | (specimen) | + + + +---------+ + + | Performing | Address | City/State/Zipcode | Phone Number | | Organization | | | | + +---------+ + + | EXTERNAL LAB | | | | + +---------+ + + Basic Metabolic Panel (12/16/2016 5:51 AM PDT) + + + + + + | Component | Value | Ref Range | Performed | Pathologist | | | | | At | Signature | + + + + + + | Na | 137Comment: Testing | 135 - 145 | EXTERNAL | | | | performed at [facility], [address] | mmol/L | LAB | | | | [address], | | | | | | [place] [address] | | | | + + + + + + | K | 4.0Comment: Testing | 3.5 - 4.9 | EXTERNAL | | | | performed at [facility], [address] | mmol/L | LAB | | | | [address], | | | | | | [place] [address] | | | | + + + + + + | Cl | 103Comment: Testing | 99 - 109 mmol/L | EXTERNAL | | | | performed at [facility], [address] | | LAB | | | | [address], | | | | | | [place] [address] | | | | + + + + + + | CO2 | 24Comment: Testing | 23 - 32 mmol/L | EXTERNAL | | | | performed at [facility], [address] | | LAB | | | | [address], | | | | | | [place] [address] | | | | + + + + + + | Anion Gap | 14Comment: Testing | 5 - 20 mmol/L | EXTERNAL | | | | performed at [facility], [address] | | LAB | | | | [address], | | | | | | [place] [address] | | | | + + + + + + | Glucose, | 207 (H)Comment: Testing | 65 - 99 mg/dL | EXTERNAL | | | Fasting | performed at [facility], [address] | | LAB | | | | [address], | | | | | | [place] [address] | | | | + + + + + + | BUN | 7 (L)Comment: Testing | 8 - 25 mg/dL | EXTERNAL | | | | performed at [facility], [address] | | LAB | | | | [address], | | | | | | [place] [address] | | | | + + + + + + | Creatinine | 0.9Comment: Testing | 0.70 - 1.30 | EXTERNAL | | | | performed at [facility], [address] | mg/dL | LAB | | | | [address], | | | | | | [place] [address] | | | | + + + + + + | BUN/Creatin | 8Comment: Testing | | EXTERNAL | | | ine Ratio | performed at [facility], [address] | | LAB | | | | [address], | | | | | | [place] [address] | | | | + + + + + + | Calcium | 8.2 (L)Comment: Testing | 8.5 - 10.5 | EXTERNAL | | | | performed at [facility], [address] | mg/dL | LAB | | | | [address], | | | | | | [place] [address] | | | | + + + + + + | Estimated | >60Comment: GFR <60: | mL/min/1.73m2 | EXTERNAL | | | GFR | CHRONIC KIDNEY DISEASE, | | LAB | | | | IF FOUND OVER A 3 MONTH | | | | | | PERIOD.GFR <15: KIDNEY | | | | | | FAILURE.FOR | | | | | | AMERICANS, MULTIPLY THE | | | | | | CALCULATED GFR BY | | | | | | 1.210.Testing performed | | | | | | at [facility], [address] | | | | | | [address], | | | | | | [place] [address] | | | | + + + + + + + + | Specimen | + + | Blood specimen | | (specimen) | + + + +---------+ + + | Performing | Address | City/State/Zipcode | Phone Number | | Organization | | | | + +---------+ + + | EXTERNAL LAB | | | | + +---------+ + + POC Glucose (12/16/2016 5:32 AM PDT) + + + + + + | Component | Value | Ref Range | Performed | Pathologist | | | | | At | Signature | + + + + + + | Glucose, | 181 (H)Comment: Testing | 65 - 99 mg/dL | EXTERNAL | | | Fingerstick | performed at [facility];[address] | | LAB | | | | [address];[place], [place] | | | | | | [address] | | | | + + + + + + + + | Specimen | + + | | + + + +---------+ + + | Performing | Address | City/State/Zipcode | Phone Number | | Organization | | | | + +---------+ + + | EXTERNAL LAB | | | | + +---------+ + + Tissue Request For Pathology (12/16/2016 12:00 AM PDT) + + | Specimen | + + | Soft tissue sample | | (specimen) | + + + + + | Narrative | Performed At | + + + | SPECIMEN(S): A 4th METATARSAL HEAD SPECIMEN(S): B GANGRENE TOE | EXTERNAL LAB | | SPECIMEN SOURCE: A. 4th METATARSAL HEAD B. GANGRENE TOE CLINICAL | | | HISTORY: 12/16/2015. Osteomyleitis(sic). FINAL PATHOLOGIC | | | DIAGNOSIS: A. 4th metatarsal head: - Benign cortical bone, negative | | | for acute osteomyelitis. B. Gangrenous toe, disarticulation: - | | | Epithelial ulcer with dermal gangrenous necrosis, negative for acute | | | osteomyelitis. AMB:mdm:C2NR GROSS DESCRIPTION: Two specimens are | | | received in two containers labeled with the patient's name: A. | | | The specimen is received in formalin designated "4th metatarsal (clear | | | margins for osteomyelitis)" and consists of a 1.5 x 1.5 x 0.5 cm | | | yellow firm portion of bone with a white smooth articulating surface. | | | The resection margin is clean sawn and firm. The resection margin | | | is inked black. The specimen is serially sectioned and entirely | | | submitted in cassette A1 and placed into decal prior to processing. | | | B. The specimen is received in formalin designated "gangrene toe" | | | and consists of a 5.4 x 2.7 x 2.2 cm disarticulated toe. The entire | | | distal tip, including the nail bed, displays a cd-black firm | | | mummification with areas of dc softening. This area is 2.6 x 2.3 x | | | 2.2 cm and is 0.7 cm from the closest soft tissue resection margin. | | | Proximal to the lesion are areas of dc-green discoloration | | | present on the dorsal and plantar surfaces measuring 1.8 x 1.0 cm and | | | 1.5 x 0.4 cm. These areas abut the black-inked soft tissue resection | | | margin. The viability of the soft tissue resection margin cannot | | | be grossly determined. Serially sectioning through the lesions | | | reveal a dc discoloration of the dc and softened underlying soft | | | tissue with a red-brown discoloration of the bone. Photogrammetrist | | | sections are submitted in cassette B1 and placed into decal prior to | | | processing. [facility]anner MICROSCOPIC EXAMINATION: A-B. Histologic | | | sections of all submitted blocks are examined by light microscopy. | | | These findings, together with the gross examination, support the | | | pathologic diagnosis. PERFORMING LABORATORY: Professional | | | interpretation and technical preparation was performed by [facility] | | | [facility], [address], | | | [place] [address] (Multimedia Journalist: Rafat Lorenzo M.D.; [facility]#: | | | [id number]). Diagnostician: Isi Gore MD Pathologist | | | Electronically Signed 12/19/2016 | | + + + + +---------+ + + | Performing | Address | City/State/Zipcode | Phone Number | | Organization | | | | + +---------+ + + | EXTERNAL LAB | | | | + +---------+ + + POC Glucose (12/15/2016 9:03 PM PDT) + + + + + + | Component | Value | Ref Range | Performed | Pathologist | | | | | At | Signature | + + + + + + | Glucose, | 123 (H)Comment: Testing | 65 - 99 mg/dL | EXTERNAL | | | Fingerstick | performed at [facility];[address] | | LAB | | | | [address];[place] | | | | | | [address] | | | | + + + + + + + + | Specimen | + + | | + + + +---------+ + + | Performing | Address | City/State/Zipcode | Phone Number | | Organization | | | | + +---------+ + + | EXTERNAL LAB | | | | + +---------+ + + POC Glucose (12/15/2016 7:43 PM PDT) + + + + + + | Component | Value | Ref Range | Performed | Pathologist | | | | | At | Signature | + + + + + + | Glucose, | 125 (H)Comment: Testing | 65 - 99 mg/dL | EXTERNAL | | | Fingerstick | performed at [facility];[address] | | LAB | | | | [address];[place], [place] | | | | | | [address] | | | | + + + + + + + + | Specimen | + + | | + + + +---------+ + + | Performing | Address | City/State/Zipcode | Phone Number | | Organization | | | | + +---------+ + + | EXTERNAL LAB | | | | + +---------+ + + Culture, MRSA (12/15/2016 6:55 PM PDT) + + | Specimen | + + | | + + + + + | Narrative | Performed At | + + + | Specimen Description WOUND SPECIAL | EXTERNAL LAB | | REQUESTS MEROPENEM CULTURE | | | NO METHICILLIN RESISTANT STAPH AUREUS | | | ISOLATED. | | + + + + +---------+ + + | Performing | Address | City/State/Zipcode | Phone Number | | Organization | | | | + +---------+ + + | EXTERNAL LAB | | | | + +---------+ + + Culture, Anaerobic (12/15/2016 6:55 PM PDT) + + | Specimen | + + | | + + + + + | Narrative | Performed At | + + + | Specimen Description WOUND SPECIAL | EXTERNAL LAB | | REQUESTS MEROPENEM GRAM STAIN | | | 1+ | | | WBC'S SEEN | | | 1+ | | | EPITHELIAL CELLS | | | 2+ | | | GRAM POSITIVE COCCI CULTURE | | | 2+ | | | STREPTOCOCCUS AGALACTIAE (GROUP B)Abnormal | | | STREPTOCOCCUS AGALACTIAE (GROUP | | | B), IS PREDICTABLY SUSCEPTIBLE TO PENICILLIN AND CEPHALOSPORINS. | | + + + + +---------+ + + | Performing | Address | City/State/Zipcode | Phone Number | | Organization | | | | + +---------+ + + | EXTERNAL LAB | | | | + +---------+ + + Culture, MRSA (12/15/2016 6:50 PM PDT) + + | Specimen | + + | | + + + + + | Narrative | Performed At | + + + | Specimen Description LEFT FOOT SPECIAL | EXTERNAL LAB | | REQUESTS MEROPENEM CULTURE | | | NO METHICILLIN RESISTANT STAPH AUREUS | | | ISOLATED. | | + + + + +---------+ + + | Performing | Address | City/State/Zipcode | Phone Number | | Organization | | | | + +---------+ + + | EXTERNAL LAB | | | | + +---------+ + + Culture, Anaerobic (12/15/2016 6:50 PM PDT) + + | Specimen | + + | | + + + + + | Narrative | Performed At | + + + | Specimen Description LEFT FOOT SPECIAL | EXTERNAL LAB | | REQUESTS MEROPENEM GRAM STAIN | | | 2+ | | | WBC'S SEEN | | | 1+ | | | GRAM POSITIVE COCCI CULTURE | | | 2+ | | | STREPTOCOCCUS AGALACTIAE (GROUP B)Abnormal | | | STREPTOCOCCUS AGALACTIAE | | | (GROUP B), IS PREDICTABLY SUSCEPTIBLE TO PENICILLIN AND | | | CEPHALOSPORINS. | | + + + + +---------+ + + | Performing | Address | City/State/Zipcode | Phone Number | | Organization | | | | + +---------+ + + | EXTERNAL LAB | | | | + +---------+ + + POC Glucose (12/15/2016 4:31 PM PDT) + + + + + + | Component | Value | Ref Range | Performed | Pathologist | | | | | At | Signature | + + + + + + | Glucose, | 128 (H)Comment: Testing | 65 - 99 mg/dL | EXTERNAL | | | Fingerstick | performed at [facility];[address] | | LAB | | | | [address];[place] | | | | | | [address] | | | | + + + + + + + + | Specimen | + + | | + + + +---------+ + + | Performing | Address | City/State/Zipcode | Phone Number | | Organization | | | | + +---------+ + + | EXTERNAL LAB | | | | + +---------+ + + POC CG 4, KACIET Arterial (12/15/2016 1:21 PM PDT) + + + + + + | Component | Value | Ref Range | Performed | Pathologist | | | | | At | Signature | + + + + + + | PH ART | 7.384Comment: Testing | 7.350 - 7.450 | EXTERNAL | | | | performed at [facility];[address] | | LAB | | | | [address];[place] | | | | | | [address] | | | | + + + + + + | PCO2 ART | 32 (L)Comment: Testing | 35 - 45 mmHg | EXTERNAL | | | | performed at [facility];[address] | | LAB | | | | [address];[place] | | | | | | [address] | | | | + + + + + + | PO2 ART | 81Comment: Testing | 80 - 105 mmHg | EXTERNAL | | | | performed at [facility];[address] | | LAB | | | | [address];[place] | | | | | | [address] | | | | + + + + + + | Lactate, | <0.30 (L)Comment: | 0.36 - 1.25 | EXTERNAL | | | Arterial | Testing performed at | mmol/L | LAB | | | | C;[address] | | | [address];[place] [address] | | | | + + + + + + | HCO3 ART | 19 (L)Comment: Testing | 22 - 26 mmol/L | EXTERNAL | | | | performed at [facility];[address] | | LAB | | | | [address];[place] | | | | | | [address] | | | | + + + + + + | POC | 20 (L)Comment: Testing | 23 - 27 mEq/L | EXTERNAL | | | APPEARANCE | performed at [facility];[address] | | LAB | | | UA | [address];[place] | | | | | | [address] | | | | + + + + + + | Base | 6 (H)Comment: Testing | 0.0 - 2.0 | EXTERNAL | | | deficit | performed at [facility];[address] | mmol/L | LAB | | | | [address];[place] | | | | | | [address] | | | | + + + + + + | O2 SAT ART | 96Comment: Testing | 95 - 98 % | EXTERNAL | | | | performed at [facility];[address] | | LAB | | | | [address];[place] | | | | | | [address] | | | | + + + + + + | FiO2, POC | 21Comment: Testing | % | EXTERNAL | | | | performed at [facility];[address] | | LAB | | | | [address];[place] | | | | | | [address] | | | | + + + + + + + + | Specimen | + + | | + + + +---------+ + + | Performing | Address | City/State/Zipcode | Phone Number | | Organization | | | | + +---------+ + + | EXTERNAL LAB | | | | + +---------+ + + Lactic Acid (12/15/2016 12:56 PM PDT) + + + + + + | Component | Value | Ref Range | Performed | Pathologist | | | | | At | Signature | + + + + + + | Lactate | 0.8Comment: Testing | 0.4 - 2.0 | EXTERNAL | | | | performed at [facility];[address] | mmol/L | LAB | | | | [address];[place], [place] | | | | | | [address] | | | | + + + + + + + + | Specimen | + + | Blood specimen | | (specimen) | + + + +---------+ + + | Performing | Address | City/State/Zipcode | Phone Number | | Organization | | | | + +---------+ + + | EXTERNAL LAB | | | | + +---------+ + + POC Glucose (12/15/2016 11:31 AM PDT) + + + + + + | Component | Value | Ref Range | Performed | Pathologist | | | | | At | Signature | + + + + + + | Glucose, | 139 (H)Comment: Testing | 65 - 99 mg/dL | EXTERNAL | | | Fingerstick | performed at [facility];[address] | | LAB | | | | [address];[place], [place] | | | | | | [address] | | | | + + + + + + + + | Specimen | + + | | + + + +---------+ + + | Performing | Address | City/State/Zipcode | Phone Number | | Organization | | | | + +---------+ + + | EXTERNAL LAB | | | | + +---------+ + + Culture, Urine (12/15/2016 9:19 AM PDT) + + | Specimen | + + | Urine specimen | | (specimen) | + + + + + | Narrative | Performed At | + + + | Specimen Description URINE,CLEAN CATCH CULTURE | EXTERNAL LAB | | NO GROWTH | | + + + + +---------+ + + | Performing | Address | City/State/Zipcode | Phone Number | | Organization | | | | + +---------+ + + | EXTERNAL LAB | | | | + +---------+ + + Urinalysis with Microscopic if Indicated (12/15/2016 9:19 AM PDT) + + + + + + | Component | Value | Ref Range | Performed | Pathologist | | | | | At | Signature | + + + + + + | Color | STRAWComment: Testing | | EXTERNAL | | | | performed at [facility], [address] | | LAB | | | | [address], | | | | | | [place] [address] | | | | + + + + + + | Clarity | CLEARComment: Testing | | EXTERNAL | | | | performed at [facility], [address] | | LAB | | | | [address], | | | | | | [place] [address] | | | | + + + + + + | Specific | 1.022Comment: Testing | 1.002 - 1.030 | EXTERNAL | | | [place] | performed at [facility], [address] | | LAB | | | | [address], | | | | | | [place] [address] | | | | + + + + + + | Leukocyte | NEGATIVEComment: | | EXTERNAL | | | Esterase, | Testing performed at | | LAB | | | Urine | [facility], [address] | | | | | | [place] | | | | | | [address] | | | | + + + + + + | Nitrite, | NEGATIVEComment: Testing | | EXTERNAL | | | Urine | performed at [facility], [address] | | LAB | | | | [address], | | | | | | [place] [address] | | | | + + + + + + | Urobilinoge | NORMALComment: Testing | mg/dL | EXTERNAL | | | n, Urine | performed at [facility], [address] | | LAB | | | | [address], | | | | | | [place] [address] | | | | + + + + + + | Protein, | NEGATIVEComment: Testing | mg/dL | EXTERNAL | | | Urine | performed at [facility], [address] | | LAB | | | | [address], | | | | | | [place] [address] | | | | + + + + + + | pH, Urine | 6.0Comment: Testing | 5.0 - 8.0 | EXTERNAL | | | | performed at [facility], [address] | | LAB | | | | [address], | | | | | | [place] [address] | | | | + + + + + + | Blood, | NEGATIVEComment: Testing | | EXTERNAL | | | Urine | performed at [facility], [address] | | LAB | | | | [address], | | | | | | [place] [address] | | | | + + + + + + | Ketones | NEGATIVEComment: Testing | mg/dL | EXTERNAL | | | | performed at [facility], [address] | | LAB | | | | [address], | | | | | | [place] [address] | | | | + + + + + + | Bilirubin, | NEGATIVEComment: Testing | | EXTERNAL | | | Urine | performed at [facility], [address] | | LAB | | | | [address], | | | | | | [place] [address] | | | | + + + + + + | Glucose, | >500 (A)Comment: Testing | mg/dL | EXTERNAL | | | Urine | performed at [facility], [address] | | LAB | | | | [address], | | | | | | [place] [address] | | | | + + + + + + + + | Specimen | + + | Urine specimen | | (specimen) | + + + +---------+ + + | Performing | Address | City/State/Zipcode | Phone Number | | Organization | | | | + +---------+ + + | EXTERNAL LAB | | | | + +---------+ + + POC CG 4, ISTAT Arterial (12/15/2016 6:53 AM PDT) + + + + + + | Component | Value | Ref Range | Performed | Pathologist | | | | | At | Signature | + + + + + + | PH ART | 6.828 (LL)Comment: | 7.350 - 7.450 | EXTERNAL | | | | Testing performed at | | LAB | | | | [facility];[address] | [address];[place] [address] | | | | + + + + + + | PCO2 ART | 56 (H)Comment: Testing | 35 - 45 mmHg | EXTERNAL | | | | performed at [facility];[address] | | LAB | | | | [address];[place] | | | | | | [address] | | | | + + + + + + | PO2 ART | 74 (L)Comment: Testing | 80 - 105 mmHg | EXTERNAL | | | | performed at [facility];[address] | | LAB | | | | [address];[place] | | | | | | [address] | | | | + + + + + + | Lactate, | 7.11 (H)Comment: Testing | 0.36 - 1.25 | EXTERNAL | | | Arterial | performed at [facility];[address] | mmol/L | LAB | | | | [address];[place] | | | | | | [address] | | | | + + + + + + | HCO3 ART | 9 (L)Comment: Testing | 22 - 26 mmol/L | EXTERNAL | | | | performed at [facility];[address] | | LAB | | | | [address];[place] | | | | | | [address] | | | | + + + + + + | POC | 11 (L)Comment: Testing | 23 - 27 mEq/L | EXTERNAL | | | APPEARANCE | performed at [facility];[address] | | LAB | | | UA | [address];[place] | | | | | | [address] | | | | + + + + + + | Base | 25 (H)Comment: Testing | 0.0 - 2.0 | EXTERNAL | | | deficit | performed at [facility];[address] | mmol/L | LAB | | | | [address];[place] | | | | | | [address] | | | | + + + + + + | O2 SAT ART | 77 (L)Comment: Testing | 95 - 98 % | EXTERNAL | | | | performed at [facility];[address] | | LAB | | | | [address];[place] | | | | | | [address] | | | | + + + + + + | FiO2, POC | 100Comment: Testing | % | EXTERNAL | | | | performed at [facility];[address] | | LAB | | | | [address];[place] | | | | | | [address] | | | | + + + + + + + + | Specimen | + + | | + + + +---------+ + + | Performing | Address | City/State/Zipcode | Phone Number | | Organization | | | | + +---------+ + + | EXTERNAL LAB | | | | + +---------+ + + External Lab: CBC (12/15/2016 5:40 AM PDT) + + + + + + | Component | Value | Ref Range | Performed | Pathologist | | | | | At | Signature | + + + + + + | WBC | 16.87 (H)Comment: | 3.80 - 11.00 | EXTERNAL | | | | Testing performed at | K/uL | LAB | | | | [facility], [address] | | | | | | [place] | | | | | | [address] | | | | + + + + + + | RED CELL | 4.04 (L)Comment: Testing | 4.20 - 5.70 | EXTERNAL | | | COUNT | performed at [facility], [address] | M/uL | LAB | | | | [address], | | | | | | [place] [address] | | | | + + + + + + | Hgb | 11.4 (L)Comment: Testing | 13.2 - 17.0 | EXTERNAL | | | | performed at [facility], [address] | g/dL | LAB | | | | [address], | | | | | | [place] [address] | | | | + + + + + + | Hematocrit, | 35.1 (L)Comment: Testing | 39.0 - 50.0 % | EXTERNAL | | | POC | performed at [facility], [address] | | LAB | | | | [address], | | | | | | [place] [address] | | | | + + + + + + | MCV | 86.7Comment: Testing | 80.0 - 100.0 fl | EXTERNAL | | | | performed at [facility], [address] | | LAB | | | | [address], | | | | | | [place] [address] | | | | + + + + + + | MCH | 28.2Comment: Testing | 27.0 - 34.0 pg | EXTERNAL | | | | performed at [facility], [address] | | LAB | | | [address], | | | | | | [place] [address] | | | | + + + + + + | MCHC | 32.5Comment: Testing | 32.0 - 35.5 | EXTERNAL | | | | performed at [facility], [address] | g/dL | LAB | | | | [address], | | | | | | [place] [address] | | | | + + + + + + | RDW-CV | 42.0Comment: Testing | 37 - 53 fl | EXTERNAL | | | | performed at [facility], [address] | | LAB | | | | [address], | | | | | | [place] [address] | | | | + + + + + + | Platelet | 262Comment: Testing | 150 - 400 K/uL | EXTERNAL | | | Count | performed at [facility], [address] | | LAB | | | Plasma | [address], | | | | | | [place] [address] | | | | + + + + + + | MPV | 8.4Comment: Testing | fl | EXTERNAL | | | | performed at [facility], [address] | | LAB | | | | [address], | | | | | | [place] [address] | | | | + + + + + + | Differentia | AUTOMATEDComment: | | EXTERNAL | | | l Type | Testing performed at | | LAB | | | | [facility], [address] | | | | | | [place] | | | | | | [address] | | | | + + + + + + | % Segmented | 82.60Comment: Testing | % | EXTERNAL | | | | performed at [facility], [address] | | LAB | | | Neutrophils | [address], | | | | | | [place] [address] | | | | + + + + + + | % | 7.47Comment: Testing | % | EXTERNAL | | | Lymphocytes | performed at [facility], [address] | | LAB | | | | [address], | | | | | | [place] [address] | | | | + + + + + + | % Monocytes | 6.29Comment: Testing | % | EXTERNAL | | | | performed at [facility], [address] | | LAB | | | | [address], | | | | | | [place] [address] | | | | + + + + + + | % | 3.29Comment: Testing | % | EXTERNAL | | | Eosinophils | performed at [facility], [address] | | LAB | | | | [address], | | | | | | [place] [address] | | | | + + + + + + | % Basophils | 0.35Comment: Testing | % | EXTERNAL | | | | performed at [facility], [address] | | LAB | | | | [address], | | | | | | [place] [address] | | | | + + + + + + | Absolute | 13.94 (H)Comment: | 1.90 - 7.40 | EXTERNAL | | | Segmented | Testing performed at | K/uL | LAB | | | Neutrophils | [facility], [address] | | | | | | [place] | | | | | | [address] | | | | + + + + + + | Absolute | 1.26Comment: Testing | 1.00 - 3.90 | EXTERNAL | | | Lymphocytes | performed at [facility], [address] | K/uL | LAB | | | | [address], | | | | | | [place] [address] | | | | + + + + + + | Absolute | 1.06 (H)Comment: Testing | 0.00 - 0.80 | EXTERNAL | | | Monocytes | performed at [facility], [address] | K/uL | LAB | | | | [address], | | | | | | [place] [address] | | | | + + + + + + | Absolute | 0.56 (H)Comment: Testing | 0.00 - 0.50 | EXTERNAL | | | Eosinophils | performed at [facility], [address] | K/uL | LAB | | | | [address], | | | | | | [place] [address] | | | | + + + + + + | Absolute | 0.06Comment: Testing | 0.00 - 0.10 | EXTERNAL | | | Basophils | performed at [facility], [address] | K/uL | LAB | | | | [address], | | | | | | [place] [address] | | | | + + + + + + + + | Specimen | + + | Blood specimen | | (specimen) | + + + +---------+ + + | Performing | Address | City/State/Zipcode | Phone Number | | Organization | | | | + +---------+ + + | EXTERNAL LAB | | | | + +---------+ + + Phosphorus (12/15/2016 5:40 AM PDT) + + + + + + | Component | Value | Ref Range | Performed | Pathologist | | | | | At | Signature | + + + + + + | PHOSPHORUS | 2.3Comment: Testing | 2.3 - 4.8 mg/dL | EXTERNAL | | | | performed at [facility], [address] | | LAB | | | | [address], | | | | | | [place] [address] | | | | + + + + + + + + | Specimen | + + | Blood specimen | | (specimen) | + + + +---------+ + + | Performing | Address | City/State/Zipcode | Phone Number | | Organization | | | | + +---------+ + + | EXTERNAL LAB | | | | + +---------+ + + Magnesium (12/15/2016 5:40 AM PDT) + + + + + + | Component | Value | Ref Range | Performed | Pathologist | | | | | At | Signature | + + + + + + | Magnesium | 1.8Comment: Testing | 1.7 - 2.4 mg/dL | EXTERNAL | | | | performed at [facility], [address] | | LAB | | | | [address], | | | | | | [place] [address] | | | | + + + + + + + + | Specimen | + + | Blood specimen | | (specimen) | + + + +---------+ + + | Performing | Address | City/State/Zipcode | Phone Number | | Organization | | | | + +---------+ + + | EXTERNAL LAB | | | | + +---------+ + + Hemoglobin A1C (12/15/2016 5:40 AM PDT) + + + + + + | Component | Value | Ref Range | Performed | Pathologist | | | | | At | Signature | + + + + + + | Hemoglobin | 11.7 (H)Comment: The | 4.0 - 6.0 % | EXTERNAL | | | A1c | [employer] | | LAB | | | | Association considers a | | | | | | hemoglobin A1c result of | | | | | | <7.0% to be the goal of | | | | | | diabetic therapy. | | | | | | When results are | | | | | | consistently >8.0%, the | | | | | | ADA suggests | | | | | | reevaluation of the | | | | | | treatment regimen. The | | | | | | testing method used is | | | | | | certified traceable to | | | | | | the Diabetes Control and | | | | | | Complications Trial | | | | | | reference method.Testing | | | | | | performed at [facility], [address] | | | | | [address] [facility] [place], | | | | | | [place] [address] | | | | + + + + + + | Glycohemogl | 289Comment: The ADA | mg/dL | EXTERNAL | | | obin | considers an eAG result | | LAB | | | (GHb),Total | of LT 154 mg/dL to be | | | | | | the goal of diabetic | | | | | | therapy. Estimated | | | | | | Average Glucose | | | | | | calculated from | | | | | | hemoglobin A1c by use of | | | | | | the ADA recommended | | | | | | formula.Testing | | | | | | performed at [facility], [address] | | [address] | | [facility] [place], | | | | | | [place] [address] | | | | + + + + + + + + | Specimen | + + | Blood specimen | | (specimen) | + + + +---------+ + + | Performing | Address | City/State/Zipcode | Phone Number | | Organization | | | | + +---------+ + + | EXTERNAL LAB | | | | + +---------+ + + Comprehensive Metabolic Panel (12/15/2016 5:40 AM PDT) + + + + + + | Component | Value | Ref Range | Performed | Pathologist | | | | | At | Signature | + + + + + + | Na | 134 (L)Comment: Testing | 135 - 145 | EXTERNAL | | | | performed at [facility], [address] | mmol/L | LAB | | | [address], | | | | | | [place] [address] | | | | + + + + + + | K | 4.6Comment: Testing | 3.5 - 4.9 | EXTERNAL | | | | performed at [facility], [address] | mmol/L | LAB | | | | [address], | | | | | | [place] [address] | | | | + + + + + + | Cl | 103Comment: Testing | 99 - 109 mmol/L | EXTERNAL | | | | performed at [facility], [address] | | LAB | | | | [address], | | | | | | [place] [address] | | | | + + + + + + | CO2 | 22 (L)Comment: Testing | 23 - 32 mmol/L | EXTERNAL | | | | performed at [facility], [address] | | LAB | | | | [address], | | | | | | [place] [address] | | | | + + + + + + | Anion Gap | 14Comment: Testing | 5 - 20 mmol/L | EXTERNAL | | | | performed at [facility], [address] | | LAB | | | | [address], | | | | | | [place] [address] | | | | + + + + + + | Glucose, | 392 (H)Comment: Testing | 65 - 99 mg/dL | EXTERNAL | | | Fasting | performed at [facility], [address] | | LAB | | | | [address], | | | | | | [place] [address] | | | | + + + + + + | BUN | 12Comment: Testing | 8 - 25 mg/dL | EXTERNAL | | | | performed at [facility], [address] | | LAB | | | | [address], | | | | | | [place] [address] | | | | + + + + + + | Creatinine | 1.0Comment: Testing | 0.70 - 1.30 | EXTERNAL | | | | performed at [facility], [address] | mg/dL | LAB | | | | [address], | | | | | | [place] [address] | | | | + + + + + + | BUN/Creatin | 12Comment: Testing | | EXTERNAL | | | ine Ratio | performed at [facility], [address] | | LAB | | | | [address], | | | | | | [place] [address] | | | | + + + + + + | Calcium | 7.6 (L)Comment: Testing | 8.5 - 10.5 | EXTERNAL | | | | performed at [facility], [address] | mg/dL | LAB | | | | [address], | | | | | | [place] [address] | | | | + + + + + + | Protein, | 6.4Comment: Testing | 6.3 - 8.2 g/dL | EXTERNAL | | | Total | performed at [facility], [address] | | LAB | | | | [address], | | | | | | [place] [address] | | | | + + + + + + | Albumin | 2.2 (L)Comment: Testing | 3.6 - 5.0 g/dL | EXTERNAL | | | | performed at [facility], [address] | | LAB | | | | [address], | | | | | | [place] [address] | | | | + + + + + + | Globulin | 4.2Comment: Testing | 1.3 - 4.9 g/dL | EXTERNAL | | | | performed at [facility], [address] | | LAB | | | | [address], | | | | | | [place] [address] | | | | + + + + + + | A/G Ratio | 0.5 (L)Comment: Testing | 1.0 - 2.4 | EXTERNAL | | | | performed at [facility], [address] | | LAB | | | | [address], | | | | | | [place] [address] | | | | + + + + + + | Bilirubin | 0.6Comment: Testing | 0.1 - 1.5 mg/dL | EXTERNAL | | | Total | performed at [facility], [address] | | LAB | | | | [address], | | | | | | [place] [address] | | | | + + + + + + | ALP, | 182 (H)Comment: Testing | 35 - 115 U/L | EXTERNAL | | | External | performed at [facility], [address] | | LAB | | | | [address], | | | | | | [place] [address] | | | | + + + + + + | AST | 9 (L)Comment: Testing | 10 - 45 U/L | EXTERNAL | | | | performed at [facility], [address] | | LAB | | | | [address], | | | | | | [place] [address] | | | | + + + + + + | ALT | 16Comment: Testing | 10 - 65 U/L | EXTERNAL | | | | performed at [facility], [address] | | LAB | | | | [address], | | | | | | [place] [address] | | | | + + + + + + | Estimated | >60Comment: GFR <60: | mL/min/1.73m2 | EXTERNAL | | | GFR | CHRONIC KIDNEY DISEASE, | | LAB | | | | IF FOUND OVER A 3 MONTH | | | | | | PERIOD.GFR <15: KIDNEY | | | | | | FAILURE.FOR | | | | | | AMERICANS, MULTIPLY THE | | | | | | CALCULATED GFR BY | | | | | | 1.210.Testing performed | | | | | | at [facility], [address] | | | | | | [address], | | | | | | [place] [address] | | | | + + + + + + + + | Specimen | + + | Blood specimen | | (specimen) | + + + +---------+ + + | Performing | Address | City/State/Zipcode | Phone Number | | Organization | | | | + +---------+ + + | EXTERNAL LAB | | | | + +---------+ + + POC Glucose (12/15/2016 5:34 AM PDT) + + + + + + | Component | Value | Ref Range | Performed | Pathologist | | | | | At | Signature | + + + + + + | Glucose, | 323 (H)Comment: Testing | 65 - 99 mg/dL | EXTERNAL | | | Fingerstick | performed at [facility];[address] | | LAB | | | | [address];[place], [place] | | | | | | [address] | | | | + + + + + + + + | Specimen | + + | | + + + +---------+ + + | Performing | Address | City/State/Zipcode | Phone Number | | Organization | | | | + +---------+ + + | EXTERNAL LAB | | | | + +---------+ + + MRSA NAAT (12/15/2016 4:17 AM PDT) + + | Specimen | + + | | + + + + + | Narrative | Performed At | + + + | SOURCE NARES(NOSE) | EXTERNAL LAB | | Testing performed at [facility];[address] [place] [address];[place] [address] MRSA PCR | | | POSITIVE for MRSA by PCRAbnormal | | | Testing performed at [address];[place] [address] | | + + + + +---------+ + + | Performing | Address | City/State/Zipcode | Phone Number | | Organization | | | | + +---------+ + + | EXTERNAL LAB | | | | + +---------+ + + Culture, Wound, Smear, w/Anaerobe (12/15/2016 2:57 AM PDT) + + | Specimen | + + | | + + + + + | Narrative | Performed At | + + + | Specimen Description LEFT FOOT CULTURE | EXTERNAL LAB | | 3+ | | | STREPTOCOCCUS AGALACTIAE (GROUP | | | B)Abnormal | | | STREPTOCOCCUS AGALACTIAE (GROUP B), IS PREDICTABLY SUSCEPTIBLE TO | | | PENICILLIN AND CEPHALOSPORINS. | | | 2+ | | | MARIE ALBICANSAbnormal | | + + + + +---------+ + + | Performing | Address | City/State/Zipcode | Phone Number | | Organization | | | | + +---------+ + + | EXTERNAL LAB | | | | + +---------+ + + POC Glucose (12/15/2016 1:22 AM PDT) + + + + + + | Component | Value | Ref Range | Performed | Pathologist | | | | | At | Signature | + + + + + + | Glucose, | 258 (H)Comment: Testing | 65 - 99 mg/dL | EXTERNAL | | | Fingerstick | performed at [facility];[address] | | LAB | | | | [address];[place] | | | | | | [address] | | | | + + + + + + + + | Specimen | + + | | + + + +---------+ + + | Performing | Address | City/State/Zipcode | Phone Number | | Organization | | | | + +---------+ + + | EXTERNAL LAB | | | | + +---------+ + + Comprehensive Metabolic Panel (12/15/2016 1:19 AM PDT) + + + + + + | Component | Value | Ref Range | Performed | Pathologist | | | | | At | Signature | + + + + + + | Na | 134 (L)Comment: Testing | 135 - 145 | EXTERNAL | | | | performed at [facility];[address] | mmol/L | LAB | | | | [address];[place] | | | | | | [address] | | | | + + + + + + | K | 4.0Comment: Testing | 3.5 - 4.9 | EXTERNAL | | | | performed at [facility];[address] | mmol/L | LAB | | | | [address];[place] | | | | | | [address] | | | | + + + + + + | Cl | 104Comment: Testing | 99 - 109 mmol/L | EXTERNAL | | | | performed at [facility];[address] | | LAB | | | | [address];[place] | | | | | | [address] | | | | + + + + + + | CO2 | 21 (L)Comment: Testing | 23 - 32 mmol/L | EXTERNAL | | | | performed at [facility];[address] | | LAB | | | | [address];[place] | | | | | | [address] | | | | + + + + + + | Anion Gap | 13Comment: Testing | 5 - 20 mmol/L | EXTERNAL | | | | performed at [facility];[address] | | LAB | | | | [address];[place] | | | | | | [address] | | | | + + + + + + | Glucose, | 254 (H)Comment: Testing | 65 - 99 mg/dL | EXTERNAL | | | Fasting | performed at [facility];[address] | | LAB | | | | [address];[place] | | | | | | [address] | | | | + + + + + + | BUN | 12Comment: Testing | 8 - 25 mg/dL | EXTERNAL | | | | performed at [facility];[address] | | LAB | | | | [address];[place] | | | | | | [address] | | | | + + + + + + | Creatinine | 0.95Comment: Testing | 0.70 - 1.30 | EXTERNAL | | | | performed at [facility];[address] | mg/dL | LAB | | | | [address];[place] | | | | | | [address] | | | | + + + + + + | BUN/Creatin | 13Comment: Testing | | EXTERNAL | | | ine Ratio | performed at [facility];[address] | | LAB | | | | [address];[place] | | | | | | [address] | | | | + + + + + + | Calcium | 6.9 (L)Comment: Testing | 8.5 - 10.5 | EXTERNAL | | | | performed at [facility];[address] | mg/dL | LAB | | | | [address];[place] | | | | | | [address] | | | | + + + + + + | Protein, | 6.3Comment: Testing | 6.3 - 8.2 g/dL | EXTERNAL | | | Total | performed at [facility];[address] | | LAB | | | | [address];[place] | | | | | | [address] | | | | + + + + + + | Albumin | 2.1 (L)Comment: Testing | 3.6 - 5.0 g/dL | EXTERNAL | | | | performed at [facility];[address] | | LAB | | | | [address];[place] | | | | | | [address] | | | | + + + + + + | Globulin | 4.2Comment: Testing | 1.3 - 4.9 g/dL | EXTERNAL | | | | performed at [facility];[address] | | LAB | | | | [address];[place] | | | | | | [address] | | | | + + + + + + | A/G Ratio | 0.5 (L)Comment: Testing | 1.0 - 2.4 | EXTERNAL | | | | performed at [facility];[address] | | LAB | | | | [address];[place] | | | | | | [address] | | | | + + + + + + | Bilirubin | 0.4Comment: Testing | 0.1 - 1.5 mg/dL | EXTERNAL | | | Total | performed at [facility];[address] | | LAB | | | | [address];[place] | | | | | | [address] | | | | + + + + + + | ALP, | 181 (H)Comment: Testing | 35 - 115 U/L | EXTERNAL | | | External | performed at [facility];[address] | | LAB | | | | [address];[place] | | | | | | [address] | | | | + + + + + + | AST | 10Comment: Testing | 10 - 45 U/L | EXTERNAL | | | | performed at [facility];[address] | | LAB | | | | [address];[place] | | | | | | [address] | | | | + + + + + + | ALT | 14Comment: Testing | 10 - 65 U/L | EXTERNAL | | | | performed at [facility];[address] | | LAB | | | | [address];[place] | | | | | | [address] | | | | + + + + + + | Estimated | >60Comment: GFR <60: | mL/min/1.73m2 | EXTERNAL | | | GFR | CHRONIC KIDNEY DISEASE, | | LAB | | | | IF FOUND OVER A 3 MONTH | | | | | | PERIOD.GFR <15: KIDNEY | | | | | | FAILURE.FOR | | | | | | AMERICANS, MULTIPLY THE | | | | | | CALCULATED GFR BY | | | | | | 1.210.Testing performed | | | | | | at [facility];[address] | | [address];[place] [address] | | | | + + + + + + + + | Specimen | + + | Blood specimen | | (specimen) | + + + +---------+ + + | Performing | Address | City/State/Zipcode | Phone Number | | Organization | | | | + +---------+ + + | EXTERNAL LAB | | | | + +---------+ + + MRI Foot Left wo Contrast (12/15/2016 12:07 AM PDT) + + | Specimen | + + | | + + + + + | Impressions | Performed At | + + + | 1. Abnormal area of fluid signal, soft tissue edema and | | | thickening at the distal lateral dorsum of the foot suspicious for | | | phlegmon and/or developing abscess measuring 3.9 x 3.8 x 1.2 cm. | | | Similar smaller ill-defined area of signal abnormality at the dorsal | | | proximal aspect of the fourth toe. 2. Deformity and abnormal | | | decreased signal at the fourth middle phalanx. Considerations include | | | chronic osteomyelitis versus deformity from old surgery or old trauma. | | | 3. Mild degree of marrow edema at the distal aspect of the third and | | | fourth metatarsals and proximal aspect of the third and fourth | | | proximal phalanges. Reactive edema versus early osteomyelitis. 4. | | | Focal marrow edema and erosion at the distal medial aspect of the | | | first metatarsal. Considerations include infection, gout or | | | inflammatory arthritis. Comparison with any available prior foot | | | imaging may be helpful in establishing chronicity. [facility] | | | MUSCULOSKELETAL RADIOLOGY SECTION Electronically signed by Lopez | | | MD Zoey on Dec 15 2016 9:30AM Referring Provider Line: | | | [phone] ID: [id number] | | + + + + + + | Narrative | Performed At | + + + | EXAM: LEFT FOREFOOT MRI WITHOUT CONTRAST EXAM DATE: 12/15/2016 | | | 12:07 AM. CLINICAL HISTORY: Necrotic left fourth toe, swelling and | | | warmth. Concern for osteomyelitis. COMPARISON: None. | | | TECHNIQUE: Multiplanar, multisequence T1-weighted and fluid-sensitive | | | sequences of the forefoot without contrast. Other: None. FINDINGS: | | | Bones and articular surfaces: Small focus of erosion at the distal | | | medial aspect of the first metatarsal. Marrow edema at the distal | | | medial aspect of first metatarsal. Patchy subcortical marrow edema at | | | the distal aspect of the third and fourth metatarsal as well as the | | | proximal aspect of the fourth proximal phalanx. However, normal T1 | | | fatty marrow signal is maintained. In the expected location of the | | | middle phalanx of the fourth toe there is an irregular low signal | | | structure which could represent bone destruction from chronic | | | osteomyelitis versus sequela of old trauma or old surgery. | | | Musculotendinous structures: Visualized flexion-extension tendons | | | appear intact. Mild edema throughout the intrinsic foot musculature. | | | Subcutaneous soft tissue edema most pronounced over the dorsum of | | | foot. At the distal lateral dorsum of the forefoot there is an | | | ill-defined area of fluid signal, soft tissue thickening and edema | | | measuring approximately 3.9 x 3.8 x 1.2 cm. This is concerning for | | | phlegmon and/or developing abscess. No definitive drainable fluid | | | collection. Similar but smaller area of possible phlegmon and/or | | | developing abscess at the dorsal aspect of the proximal left fourth | | | toe. | | + + + + + | Procedure Note | + + | Leonard, Rad Conversion - 05/16/2019 2:48 AM PDT EXAM:LEFT FOREFOOT MRI WITHOUT CONTRAST | | EXAM DATE: 12/15/2016 12:07 AM. CLINICAL HISTORY: Necrotic left fourth toe, swelling and | | warmth. Concern for osteomyelitis. COMPARISON: None. TECHNIQUE: Multiplanar, | | multisequence T1-weighted and fluid-sensitive sequences of the forefoot without | | contrast. Other: None. FINDINGS:Bones and articular surfaces: Small focus of erosion at | | the distal medial aspect of the first metatarsal. Marrow edema at the distal medial | | aspect of first metatarsal. Patchy subcortical marrow edema at the distal aspect of the | | third and fourth metatarsal as well as the proximal aspect of the fourth proximal | | phalanx. However, normal T1 fatty marrow signal is maintained. In the expected location | | of the middle phalanx of the fourth toe there is an irregular low signal structure which | | could represent bone destruction from chronic osteomyelitis versus sequela of old | | trauma or old surgery. Musculotendinous structures: Visualized flexion-extension tendons | | appear intact. Mild edema throughout the intrinsic foot musculature. Subcutaneous soft | | tissue edema most pronounced over the dorsum of foot. At the distal lateral dorsum of | | the forefoot there is an ill-defined area of fluid signal, soft tissue thickening and | | edema measuring approximately 3.9 x 3.8 x 1.2 cm. This is concerning for phlegmon and/or | | developing abscess. No definitive drainable fluid collection. Similar but smaller area | | of possible phlegmon and/or developing abscess at the dorsal aspect of the proximal left | | fourth toe. IMPRESSION: 1. Abnormal area of fluid signal, soft tissue edema and | | thickening at the distal lateral dorsum of the foot suspicious for phlegmon and/or | | developing abscess measuring 3.9 x 3.8 x 1.2 cm. Similar smaller ill-defined area of | | signal abnormality at the dorsal proximal aspect of the fourth toe.2. Deformity and | | abnormal decreased signal at the fourth middle phalanx. Considerations include chronic | | osteomyelitis versus deformity from old surgery or old trauma.3. Mild degree of marrow | | edema at the distal aspect of the third and fourth metatarsals and proximal aspect of | | the third and fourth proximal phalanges. Reactive edema versus early osteomyelitis.4. | | Focal marrow edema and erosion at the distal medial aspect of the first metatarsal. | | Considerations include infection, gout or inflammatory arthritis. Comparison with any | | available prior foot imaging may be helpful in establishing chronicity. [facility] | | MUSCULOSKELETAL RADIOLOGY SECTION Electronically signed by Lopez Greer MD on Dec 15 | | 2016 9:30AM Referring Provider Line: [phone] ID: [id number] | + + POC Glucose (12/14/2016 11:34 PM PDT) + + + + + + | Component | Value | Ref Range | Performed | Pathologist | | | | | At | Signature | + + + + + + | Glucose, | 172 (H)Comment: Testing | 65 - 99 mg/dL | EXTERNAL | | | Fingerstick | performed at [facility];[address] | | LAB | | | [address];[place], [place] | | | | | | [address] | | | | + + + + + + + + | Specimen | + + | | + + + +---------+ + + | Performing | Address | City/State/Zipcode | Phone Number | | Organization | | | | + +---------+ + + | EXTERNAL LAB | | | | + +---------+ + + Culture, Blood, 2nd Specimen (12/14/2016 10:40 PM PDT) + + | Specimen | + + | Blood specimen | | (specimen) | + + + + + | Narrative | Performed At | + + + | Specimen Description BLOOD SPECIAL | EXTERNAL LAB | | REQUESTS R HAND CULTURE | | | NO GROWTH 6 DAYS | | + + + + +---------+ + + | Performing | Address | City/State/Zipcode | Phone Number | | Organization | | | | + +---------+ + + | EXTERNAL LAB | | | | + +---------+ + + Lactic Acid (12/14/2016 10:40 PM PDT) + + + + + + | Component | Value | Ref Range | Performed | Pathologist | | | | | At | Signature | + + + + + + | Lactate | 1.0Comment: Testing | 0.4 - 2.0 | EXTERNAL | | | | performed at [facility];[address] | mmol/L | LAB | | | | [address];[place], [place] | | | | | | [address] | | | | + + + + + + + + | Specimen | + + | | + + + +---------+ + + | Performing | Address | City/State/Zipcode | Phone Number | | Organization | | | | + +---------+ + + | EXTERNAL LAB | | | | + +---------+ + + Ketones, blood (12/14/2016 9:45 PM PDT) + + + + + + | Component | Value | Ref Range | Performed | Pathologist | | | | | At | Signature | + + + + + + | Ketones, | NEGATIVEComment: Testing | | EXTERNAL | | | Blood | performed at [facility];[address] | | LAB | | | | [address];[place], [place] | | | | | | [address] | | | | + + + + + + + + | Specimen | + + | | + + + +---------+ + + | Performing | Address | City/State/Zipcode | Phone Number | | Organization | | | | + +---------+ + + | EXTERNAL LAB | | | | + +---------+ + + Sedimentation rate, automated (12/14/2016 9:45 PM PDT) + + + + + + | Component | Value | Ref Range | Performed | Pathologist | | | | | At | Signature | + + + + + + | Sed Rate | 130 (H)Comment: Testing | 0 - 15 mm/Hr | EXTERNAL | | | | performed at [facility] | | LAB | | | | [address];[place] | | | | | | [address] | | | | + + + + + + + + | Specimen | + + | Blood specimen | | (specimen) | + + + +---------+ + + | Performing | Address | City/State/Zipcode | Phone Number | | Organization | | | | + +---------+ + + | EXTERNAL LAB | | | | + +---------+ + + External Lab: CBC (12/14/2016 9:45 PM PDT) + + + + + + | Component | Value | Ref Range | Performed | Pathologist | | | | | At | Signature | + + + + + + | WBC | 19.46 (H)Comment: | 3.80 - 11.00 | EXTERNAL | | | | Testing performed at | K/uL | LAB | | | | [facility];[address];[place] [address] | | | | + + + + + + | RED CELL | 4.20Comment: Testing | 4.20 - 5.70 | EXTERNAL | | | COUNT | performed at [facility];[address] | M/uL | LAB | | | | [address];[place] | | | | | | [address] | | | | + + + + + + | Hgb | 12.4 (L)Comment: Testing | 13.2 - 17.0 | EXTERNAL | | | | performed at [facility];[address] | g/dL | LAB | | | | [address];[place] | | | | | | [address] | | | | + + + + + + | Hematocrit, | 36.3 (L)Comment: Testing | 39.0 - 50.0 % | EXTERNAL | | | POC | performed at [facility];[address] | | LAB | | | | [address];[place] | | | | | | [address] | | | | + + + + + + | MCV | 86.5Comment: Testing | 80.0 - 100.0 fl | EXTERNAL | | | | performed at [facility];[address] | | LAB | | | | [address];[place] | | | | | | [address] | | | | + + + + + + | MCH | 29.4Comment: Testing | 27.0 - 34.0 pg | EXTERNAL | | | | performed at [facility];[address] | | LAB | | | | [address];[place] | | | | | | [address] | | | | + + + + + + | MCHC | 34.0Comment: Testing | 32.0 - 35.5 | EXTERNAL | | | | performed at [facility];[address] | g/dL | LAB | | | | [address];[place] | | | | | | [address] | | | | + + + + + + | RDW-CV | 42.9Comment: Testing | 37 - 53 fl | EXTERNAL | | | | performed at [facility];[address] | | LAB | | | | [address];[place] | | | | | | [address] | | | | + + + + + + | Platelet | 258Comment: Testing | 150 - 400 K/uL | EXTERNAL | | | Count | performed at [facility];[address] | | LAB | | | Plasma | [address];[place] | | | | | | [address] | | | | + + + + + + | MPV | 8.3Comment: Testing | fl | EXTERNAL | | | | performed at [facility];[address] | | LAB | | | | [address];[place] | | | | | | [address] | | | | + + + + + + | Differentia | AUTOMATEDComment: | | EXTERNAL | | | l Type | Testing performed at | | LAB | | | | [facility];[address];[place] [address] | | | | + + + + + + | % Segmented | 87.43Comment: Testing | % | EXTERNAL | | | | performed at [facility];[address] | | LAB | | | Neutrophils | [address];[place] | | | | | | [address] | | | | + + + + + + | % | 5.56Comment: Testing | % | EXTERNAL | | | Lymphocytes | performed at [facility];[address] | | LAB | | | | [address];[place] | | | | | | [address] | | | | + + + + + + | % Monocytes | 4.36Comment: Testing | % | EXTERNAL | | | | performed at [facility];[address] | | LAB | | | | [address];[place] | | | | | | [address] | | | | + + + + + + | % | 1.84Comment: Testing | % | EXTERNAL | | | Eosinophils | performed at [facility];[address] | | LAB | | | | [address];[place] | | | | | | [address] | | | | + + + + + + | % Basophils | 0.81Comment: Testing | % | EXTERNAL | | | | performed at [facility];[address] | | LAB | | | | [address];[place] | | | | | | [address] | | | | + + + + + + | Absolute | 17.02 (H)Comment: | 1.90 - 7.40 | EXTERNAL | | | Segmented | Testing performed at | K/uL | LAB | | | Neutrophils | [facility];[address];[place] [address] | | | | + + + + + + | Absolute | 1.08Comment: Testing | 1.00 - 3.90 | EXTERNAL | | | Lymphocytes | performed at [facility];[address] | K/uL | LAB | | | | [address];[place] | | | | | | [id number] | | | | + + + + + + | Absolute | 0.85 (H)Comment: Testing | 0.00 - 0.80 | EXTERNAL | | | Monocytes | performed at [facility];[address] | [address] | LAB | | | | [address];[place] | | | | | | [address] | | | | + + + + + + | Absolute | 0.36Comment: Testing | 0.00 - 0.50 | EXTERNAL | | | Eosinophils | performed at [facility];[address] | [address] | LAB | | | | [address];[place] | | | | | | [id number] | | | | + + + + + + | Absolute | 0.16 (H)Comment: Testing | 0.00 - 0.10 | EXTERNAL | | | Basophils | performed at [facility];[address] | [address] | LAB | | | | [address];[place] | | | | | | [address] | | | | + + + + + + | RBC | RBC AND PLT MORPHOLOGY | | EXTERNAL | | | Morphology | APPEAR NORMALComment: | | LAB | | | | Testing performed at | | | | | | [facility];[address] | | [address];[place] [address] | | | | + + + + + + | Platelet | ADEQUATEComment: Testing | | EXTERNAL | | | Estimate | performed at [facility];[address] | | LAB | | | | [address];[place] | | | | | | [address] | | | | + + + + + + | Differentia | SLIDE SCANNED, AGREES | | EXTERNAL | | | l Comments | WITH AUTOMATED | | LAB | | | | RESULTS.Comment: Testing | | | | | | performed at [facility];[address] | | | | | | [address];[place], [place] | | | | | | [address] | | | | + + + + + + + + | Specimen | + + | Blood specimen | | (specimen) | + + + +---------+ + + | Performing | Address | City/State/Zipcode | Phone Number | | Organization | | | | + +---------+ + + | EXTERNAL LAB | | | | + +---------+ + + C-Reactive Protein (12/14/2016 9:45 PM PDT) + + + + + + | Component | Value | Ref Range | Performed | Pathologist | | | | | At | Signature | + + + + + + | CRP | 16.0 (H)Comment: Testing | mg/dL | EXTERNAL | | | | performed at [facility] | | LAB | | | | [address];[place], [place] | | | | | | [address] | | | | + + + + + + + + | Specimen | + + | Blood specimen | | (specimen) | + + + +---------+ + + | Performing | Address | City/State/Zipcode | Phone Number | | Organization | | | | + +---------+ + + | EXTERNAL LAB | | | | + +---------+ + + Comprehensive Metabolic Panel (12/14/2016 9:45 PM PDT) + + + + + + | Component | Value | Ref Range | Performed | Pathologist | | | | | At | Signature | + + + + + + | Na | 125 (L)Comment: Testing | 135 - 145 | EXTERNAL | | | | performed at [facility];888 | mmol/L | LAB | | | | [address];[place] | | | | | | [address] | | | | + + + + + + | K | 5.1 (H)Comment: MODERATE | 3.5 - 4.9 | EXTERNAL | | | | HEMOLYSISTesting | mmol/L | LAB | | | | performed at [facility];[address] | | | | | | [address];[place] | | | | | | [address] | | | | + + + + + + | Cl | 93 (L)Comment: Testing | 99 - 109 mmol/L | EXTERNAL | | | | performed at [facility];[address] | | LAB | | | | [address];[place] | | | | | | [address] | | | | + + + + + + | CO2 | 23Comment: Testing | 23 - 32 mmol/L | EXTERNAL | | | | performed at [facility];[address] | | LAB | | | | [address];[place] | | | | | | [address] | | | | + + + + + + | Anion Gap | 14Comment: Testing | 5 - 20 mmol/L | EXTERNAL | | | | performed at [facility];[address] | | LAB | | | | [address];[place] | | | | | | [address] | | | | + + + + + + | Glucose, | 635 (HH)Comment: CALLED | 65 - 99 mg/dL | EXTERNAL | | | Fasting | DR LING COUCH | | LAB | | | | AT 2216 BY RHREAD BACK | | | | | | RESULTS VERIFIEDTesting | | | | | | performed at [facility];[address] | | | | | | [address];[place] | | | | | | [address] | | | | + + + + + + | BUN | 13Comment: Testing | 8 - 25 mg/dL | EXTERNAL | | | | performed at [facility];[address] | | LAB | | | | [address];[place] | | | | | | [address] | | | | + + + + + + | Creatinine | 1.4 (H)Comment: Testing | 0.70 - 1.30 | EXTERNAL | | | | performed at [facility];888 | mg/dL | LAB | | | | [address];[place] | | | | | | [address] | | | | + + + + + + | BUN/Creatin | 10Comment: Testing | | EXTERNAL | | | ine Ratio | performed at [facility];[address] | | LAB | | | | [address];[place] | | | | | | [address] | | | | + + + + + + | Calcium | 7.9 (L)Comment: Testing | 8.5 - 10.5 | EXTERNAL | | | | performed at [facility];888 | mg/dL | LAB | | | | [address];[place] | | | | | | [address] | | | | + + + + + + | Protein, | 7.7Comment: Testing | 6.3 - 8.2 g/dL | EXTERNAL | | | Total | performed at [facility];[address] | | LAB | | | | [address];[place] | | | | | | [address] | | | | + + + + + + | Albumin | 2.6 (L)Comment: Testing | 3.6 - 5.0 g/dL | EXTERNAL | | | | performed at [facility];[address] | | LAB | | | | [address];[place] | | | | | | [address] | | | | + + + + + + | Globulin | 5.1 (H)Comment: Testing | 1.3 - 4.9 g/dL | EXTERNAL | | | | performed at [facility];[address] | | LAB | | | | [address];[place] | | | | | | [address] | | | | + + + + + + | A/G Ratio | 0.5 (L)Comment: Testing | 1.0 - 2.4 | EXTERNAL | | | | performed at [facility];[address] | | LAB | | | | [address];[place] | | | | | | [address] | | | | + + + + + + | Bilirubin | 0.6Comment: Testing | 0.1 - 1.5 mg/dL | EXTERNAL | | | Total | performed at [facility];[address] | | LAB | | | | [address];[place] | | | | | | [address] | | | | + + + + + + | ALP, | 259 (H)Comment: Testing | 35 - 115 U/L | EXTERNAL | | | External | performed at [facility];[address] | | LAB | | | | [address];[place] | | | | | | [address] | | | | + + + + + + | AST | 17Comment: MODERATE | 10 - 45 U/L | EXTERNAL | | | | HEMOLYSISTesting | | LAB | | | | performed at [facility];[address] | | | | | | [address];[place] | | | | | | [address] | | | | + + + + + + | ALT | 17Comment: Testing | 10 - 65 U/L | EXTERNAL | | | | performed at [facility];[address] | | LAB | | | | [address];[place] | | | | | | [address] | | | | + + + + + + | Estimated | 57 (L)Comment: GFR <60: | mL/min/1.73m2 | EXTERNAL | | | GFR | CHRONIC KIDNEY DISEASE, | | LAB | | | | IF FOUND OVER A 3 MONTH | | | | | | PERIOD.GFR <15: KIDNEY | | | | | | FAILURE.FOR | | | | | | AMERICANS, MULTIPLY THE | | | | | | CALCULATED GFR BY | | | | | | 1.210.Testing performed | | | | | | at [facility];[address] [facility] | | | | | | [facility] [address] | | | | + + + + + + + + | Specimen | + + | Blood specimen | | (specimen) | + + + +---------+ + + | Performing | Address | City/State/Zipcode | Phone Number | | Organization | | | | + +---------+ + + | EXTERNAL LAB | | | | + +---------+ + + Culture, Blood (12/14/2016 9:40 PM PDT) + + | Specimen | + + | Blood specimen | | (specimen) | + + + + + | Narrative | Performed At | + + + | Specimen Description BLOOD SPECIAL | EXTERNAL LAB | | REQUESTS L FOREARM CULTURE | | | NO GROWTH 6 DAYS | | + + + + +---------+ + + | Performing | Address | City/State/Zipcode | Phone Number | | Organization | | | | + +---------+ + + | EXTERNAL LAB | | | | + +---------+ + + documented in this encounter Visit Diagnoses + + | Diagnosis | + + | Osteomyelitis of foot, left, acute (HCC) Acute osteomyelitis, ankle and foot | + + | Uncontrolled type 2 diabetes mellitus with hyperglycemia, unspecified rn long term care | | insulin use status | + + | Renal insufficiency Unspecified disorder of kidney and ureter | + + documented in this encounter Additional Health Concerns + + + + | Infection | Noted Time | Resolved Time | + + + + | Methicillin-resistant Staphylococcus aureus | 12/15/2016 12:00 AM | | | | PDT | | + + + + documented as of this encounter
--- OUTSIDE RECORDS SUMMARY | ~2019-09-25 | XMS | Encounter Summary ---
Demographics + + + | Address | [address] | | | [place] [address] | + + + | Home Phone | | + + + | Preferred Language | Unknown | + + + | Marital Status | Single | + + + | Oriental Orthodox Affiliation | 1077 | + + + | Race | Unknown | + + + | Ethnic Group | Unknown | + + + Author + + + | Author | [facility] | | | and [place] | + + + | Organization | [facility] | | | [...] Team Providers + +------+ + | Care Hand Cutter Apprentice Name | Role | Phone | + +------+ + | Estrella Light PA-C | PCP | | + +------+ + Encounter Details +--------+ + + + + | Date | Type | Department | Care Team | Description | +--------+ + + + + | 03/29/ | Abstract | [facility] | Avi Forde MD | | | 2016 | | GASTROENTEROLOGY | [address], [place] | | | | | [address] [place] | [address] [place] | | | | | [address] [place], [place] | [address] | | | | | [address] | | | | | | [phone] | | | +--------+ + + + [...] + + + | Blood Pressure | - | - | | + + + + + | Pulse | - | - | | + + + + + | Temperature | - | - | | + + + + + | Respiratory Rate | - | - | | + + + + + | Oxygen Saturation | - | - | | + + + + + | Inhaled Oxygen | - | - | | | Concentration | | | | + + + + + | Weight | 79.5 kg (175 lb 2.5 | 03/29/2016 1:27 PM | | | | oz) | PDT | | + + + + + | Height | 177.8 cm (5' 10") | 03/29/2016 1:27 PM | | | | | PDT | | + + + + + | Body Mass Index | 25.13 | 03/29/2016 1:27 PM | | | | | PDT | | + + + + + documented in this encounter Plan of Treatment Not on filedocumented as of this encounter Visit Diagnoses Not on filedocumented in this encounter
--- OUTSIDE RECORDS SUMMARY | ~2019-09-25 | XMS | Encounter Summary ---
Demographics + + + | Address | [address] | | | [place] [address] | + + + | Home Phone | | + + + | Preferred Language | Unknown | + + + | Marital Status | Single | + + + | Yazidism Affiliation | 1077 | + + + | Race | Unknown | + + + | Ethnic Group | Unknown | + + + Author + + + | Author | [facility] | | | and [place] | + + + | Organization | [facility] | | | [...] Team Providers + +------+ + | Care Cadd Manager Name | Role | Phone | + +------+ + | Estrella Light PA-C | PCP | | + +------+ + Encounter Details +--------+---------+ + + + | Date | Type | Department | Care Team | Description | +--------+---------+ + + + | 04/12/ | Surgery | [facility] | Avi Forde MD | EGD / COLONOSCOPY - | | 2015 | | MED CTR MP INTRA OP | [address], [place] | DM (insulin) | | | | [address] | [address] [place] | | | | | [place] | [id number] | | | | | [address] | | | | | | [phone] | | | +--------+---------+ + + + Social History + + [...] + | Diagnosis | + + | Chronic diarrhea Diarrhea | + + | IgG Gliadin antibody positive Other and unspecified nonspecific immunological | | findings | + + documented in this encounter"
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
--- OUTSIDE RECORDS SUMMARY | ~2019-09-25 | XMS | Encounter Summary ---
Demographics + + + | Address | [address] | | | [place] [address] | + + + | Home Phone | | + + + | Preferred Language | Unknown | + + + | Marital Status | Single | + + + | Presybeterian Affiliation | 1077 | + + + | Race | Unknown | + + + | Ethnic Group | Unknown | + + + Author + + + | Author | [facility] | | | and [place] | + + + | Organization | [facility] | | [...] Team Providers + +------+ + | Care Day Guard Name | Role | Phone | + [...] | | | Services | ogy | Chronic | Avi Castro MD | Avi Castro MD | | | Required | | diarrhea | [address], | | | | | IgG Gliadin | [place], [place] | [place] [address] | | | | | antibody | [address] [place] | [place], | | | | | positive | [place] | [place] [address] | | | | | Alcohol | [address] | Phone: | | | | | abuse | Phone: | [phone] | | | | | Procedures | [phone] | Fax: | | | | | [place] | Fax: | [phone] | | | | | COLONOSCOPY | [phone] | | | | | | FLX DX | | | | | | | W/COLLJ SPEC | | | | | | | WHEN [...] | | | | | | | ANESTH,INTES | | | | | | | MILKA,SCOPE,L | | | | | | | OW | | | +--------+ + + + + + Reason for Visit + + + | Reason | Comments | + + + | Appointment | procedure | + + + Encounter Details +--------+ + + + + | Date | Type | Department | Care Team | Description | +--------+ + + + + | 09/03/ | Telephone | [facility] | Avi Forde MD | Appointment | | 2014 | | GASTROENTEROLOGY | [address], [place] | (procedure ) | | | | [address] [place] | [address] [place], [place] | | | | | [address] [place], [place] | [address] | | | | | [address] | | | | | | [phone] | | | +--------+ + + + [...] Ambulatory referral | Outpatient | Routin | Chronic diarrhea | Expected: | | to Gastroenterology | Referral | e | IgG Gliadin antibody | 09/22/2015, Expires: | | (joseph) | | | positive Alcohol | 09/03/2016 | | | | | abuse | | + + +--------+ + + documented as of this encounter Visit Diagnoses + + | Diagnosis | + + | Chronic diarrhea - Primary Diarrhea | + + | IgG Gliadin antibody positive Other and unspecified nonspecific immunological | | findings | + + | Alcohol abuse Alcohol abuse, unspecified | + + documented in this encounter"
--- OUTSIDE RECORDS SUMMARY | ~2019-09-25 | XMS | Encounter Summary ---
Demographics + + + | Address | [address] | | | [place] [address] | + + + | Home Phone | | + + + | Preferred Language | Unknown | + + + | Marital Status | Single | + + + | Restoration Affiliation | 1077 | + + + | Race | Unknown | + + + | Ethnic Group | Unknown | + + + Author + + + | Author | [facility] | | | and [place] | + + + | Organization | [facility] | | | [...] Team Providers + +------+ + | Care Plastics Seasoner Operator Name | Role | Phone | + [...] 2016 | | GASTROENTEROLOGY | [address], [place] | | | | | [address] [place] | [address] [place] | | | | | [address] [place], [place] | [address] | | | | | [address] | | | | | | [phone] | | | +--------+ + + + [...]
--- OUTSIDE RECORDS SUMMARY | ~2019-09-25 | XMS | Encounter Summary ---
Demographics + + + | Address | [address] | | | [place] [address] | + + + | Home Phone [...] + + + | Author | [facility] | | | and [place] | + + + | Organization | [facility] | | | [...] Team Providers + +------+ + | Care Pick Up Operator Name | Role | Phone | + +------+ + | Estrella Light PA-C | PCP | | + +------+ + Encounter Details +--------+ + + + + | Date | Type | Department | Care Team | Description | +--------+ + + + + | 01/13/ | Hospital | [facility] | Conversion | Diagnosis unknown | | 2018 | Encounter | CONVERSION DEP [address] | Transaction, | | | | | [address] [address] | Provider Unknown | | | | | [place] | | | | | | [address] | (Fax) | | | | | [phone] | | | +--------+ + + + [...]
--- OUTSIDE RECORDS SUMMARY | ~2019-09-25 | XMS | Clinical Summary ---
Demographics + + + | Address | [address] [place] [address] RD | | | [place] [address] | + + + | Home Phone [...] Author + + + | Author | [facility] (Historical as of | | | 05-18-19) | + + + | Organization | [facility] (Historical as of | | | 05-18-19) [...] Team Providers + +------+ + | Care World History Teacher Name | Role | Phone | + [...] right foot, limited to breakdown of skin ([facility]) | 01/13/2018 | + + + | Cellulitis and abscess of foot | 12/15/2016 | + + + | Osteomyelitis ([facility]) | 12/15/2016 | + + + | Essential hypertension | 03/04/2015 | + + + | Type 2 diabetes mellitus, with long-term current use of insulin | 03/04/2015 | | ([facility]) | | + + + Family History [...] +------+-------+ + | MEDICAID | [place] | [id number] | | | [address] | | | N | | | | [place], [place] | | | [place] | | | | [address] | | | COSTUMER | | | | | + +--------+ +------+-------+ + | [employer] [facility] [employer] | YELLOW | [id number] | | | | | PLANS | [...] | Self | [birth year] | Home: | [address] | | | al/Fam | | 1965 | [phone] | [place], [place] | | | vikas | | | [phone] | [address] | + +--------+ +--------+ + + | [employer] | Third | Self | [birth year] | Home: | [address] | | | [employer] | | 1964 | [phone] | [place], [place] | | | Liabil | | | [phone] | [address] | | | ity | | | | | + +--------+ +--------+ + +
--- OUTSIDE RECORDS SUMMARY | ~2019-09-25 | XMS | Clinical Summary ---
Demographics + + + | Address | [address] [place] [address] RD | | | [place] [address] | + + + | Home Phone [...] | | + + +---------+ + | Ktaherine Duran | ECON | Unknown | | + + +---------+ + | Sarah Hanson | ECON | Unknown | | + + +---------+ + Care Team Providers + +------+ + | Care News Camera Person Name | Role | Phone | + [...] + + + | Overview: Problem list inpatient auditor utility | + + + +---+ | [...] | [employer] | MODA | [id number] | | [phone] | | Medica | | MEDICAID HMO | HEALTH | | 018-Pr | 1 | | id | | | MDCD | | esent | | | | | | [place] | | | | | | + +--------+ +--------+ +---------+--------+ | [facility] | IHS | [id number] | | | | Indemn | | [...] Person | Self | [birth year] | [address] | | | al/Fam | | 1965 | [phone] | [place] | | | vikas | | | 8 (Home) | [address] | + +--------+ +--------+ + + Advance Directives + + + + + | Type | Date Recorded | Patient | Explanation | | | | Punch Machine Hand | | + + + + + | Power of | | | | | Mechanic/Welder | | | | + + + + + | Advance | | | | | Directive | | | | + + + + +
--- OUTSIDE RECORDS SUMMARY | ~2019-09-25 | XMS | Encounter Summary ---
Demographics + + + | Address | [address] | | | [place] [address] | + + + | Home Phone | | + + + | Preferred Language | Unknown | + + + | Marital Status | Single | + + + | Adventist Affiliation | 1077 | + + + | Race | Unknown | + + + | Ethnic Group | Unknown | + + + Author + + + | Author | [facility] | | | and [place] | + + + | Organization | [facility] | [...] Team Providers + +------+ + | Care Milk Of Lime Slaker Name | Role | Phone | + [...] antibody | [address], | | | | | positive | [place], [place] | [place] [address] | | | | | Chronic | [address] [place] | [place], | | | | | diarrhea | [place], [place] | [place] [address] | | | | | Procedures | [address] | Phone: | | | | | [place] | Phone: | [phone] | | | | | COLONOSCOPY | [phone] | Fax: | | | | | FLX DX | Fax: | [phone] | | | | | W/COLLJ SPEC | [phone] | | | | | | WHEN PFRMD | | | | | | | [place] | | | | | | | COLONOSCOPY | | | | | | | W/BIOPSY | | | | | | | SINGLE/MULTI | | | | | | | PLE LA | | | | | | | COLSC FLX | | | | | | | W/RMVL OF | | | | | | | TUMOR POLYP | | | | | | | LESION SNARE | | | | | | | TQ LA | | | | | | | ESOPHAGOGAST | | | | | | | RODUODENOSCO | | | | | | | PY TRANSORAL | | | | | | | DIAGNOSTIC | | | | | | | LA EDG | | | | | | [...] 2015 | | GASTROENTEROLOGY | [address], [place] | (egd/colon ) | | | | [address] [place] | [address] [place], [place] | | | | | [address] [place], [place] | [address] | | | | | [address] | | | | | | [phone] | | | +--------+ + + + [...]
--- OUTSIDE RECORDS SUMMARY | ~2019-09-25 | XMS | Encounter Summary ---
Demographics + + + | Address | [address] | | | [place] [address] | + + + | Home Phone | | + + + | Preferred Language | Unknown | + + + | Marital Status | Single | + + + | Mu-Ism Affiliation | 1077 | + + + | Race | Unknown | + + + | Ethnic Group | Unknown | + + + Author + + + | Author | [facility] | | | and [place] | + + + | Organization | [facility] | | | and [...] Team Providers + +------+ + | Care Practice Manager Name | Role | Phone | + +------+ + PCP | Unavailable | + +------+ + Encounter Details +--------+ + + + + | Date | Type | Department | Care Team | Description | +--------+ + + + + | 05/21/ | Hospital | [facility] | Unknown, | | | 1992 | Encounter | MED CTR XRAY [address] | [place] | | | | | [address] | [phone] | | | | | [place] [address] | | | | | | [phone] | | | +--------+ + + + [...]
--- OUTSIDE RECORDS SUMMARY | ~2019-09-25 | XMS | Encounter Summary ---
Demographics + + + | Address | [address] | | | [place] [address] | + + + | Home Phone [...] Team Providers + +------+ + | Care Image Editor Name | Role | Phone | + +------+ + | Estrella Light PA-C | PCP | | + +------+ + Encounter Details +--------+ + + + + | Date | Type | Department | Care Team | Description | +--------+ + + + + | 01/13/ | Hospital [facility] | Cameron Lopez | | | 2018 - | Encounter | [facility] | MD Antolin Hill | | | | | CLINICAL DECISION | [place], [place] | | | 01/14/ | | UNIT [facility] | [address] | | | 2017 | | [place], [place] | | | | | | [address] | | | | | | [phone] | | | +--------+ + + + [...] 01/14/181931 Date of Service: 01/14/18899 Status: Signed Lofter: Abhinav Winters DO (Physician) The patient is 52 y.o. 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 In the emergency department at [facility], EKG showed T inversions in lead [...] Date of Service: 04/15/18 0900 Status: Signed Lofter: Elizabeth Galvez, RN (Registered Nurse) Approached by [...] 01/13/181399 Date of Service: 01/13/181399 Status: Signed Lofter: Rosalba Luo RPH (Pharmacist) Clinical Pharmacy Note: [...] | | | Basophils | performed at [facility], [address] | K/uL | LAB | | | | [place], | | | | | | [place] [address] | | | | + + + [...] | | | | [place] [address] | | | | + + + [...] EXTERNAL | | | | performed at [facility], [address] | | LAB | | | | [place], | | | | | | [place] [address] | | | | + + + [...] EXTERNAL | | | | performed at [facility], [address] | | LAB | | | | [place], | | | | | | [place] [address] | | | | + + + [...] | EXTERNAL | | | A1c | [facility] | | LAB | | | [...] | | | | | performed at [facility], [address] | | | | | | [facility], | | | | | | [place] [address] | | | | + + + [...] | | | Cholesterol | performed at [facility], [address] | | LAB | | | , | [place], | | | | | Calculated, | [place] [address] | | | | | External | [...] | | | | | | at [facility], [address] | | | | | | [place], | | | | | | [place] [address] | | | | + + + [...] | | | Fingerstick | performed at [facility];[address] | | LAB | | | | [address];[place], [place] | | | | | | [address] | | | | + + + [...] + + | Historically converted procedure from [facility] [place] Epic environment | EXTERNAL LAB | + [...] EXTERNAL | | | | performed at [facility];[address] | | LAB | | | | [address];[place], [place] | | | | | | [address] | | | | + + + [...] | | | Fingerstick | performed at [facility];[address] | | LAB | | | | [address];[place], [place] | | | | | | [address] | | | | + + + [...] | | | | | | ACUTE [place] Testing | | | | | | performed at [facility];[address] | | | | | | [address] [facility];[place], [place] | | | | | | [address] | | | | + + + [...] EXTERNAL | | | | performed at [facility];[address] | | LAB | | | | [address];[place] | | | | | | [address] | | | | + + + [...] | | | Fingerstick | performed at [facility];[address] | | LAB | | | | [address];[place] | | | | | | [address] | | | | + + + [...] | | | Fingerstick | performed at [facility];[address] | | LAB | | | | [address];[place] | | | | | | [address] | | | | + + + [...] | | | | | | ACUTE [place] Testing | | | | | | performed at [facility] | | | | | | [address] [facility];[place], [place] | | | | | | [address] | | | | + + + [...] EXTERNAL | | | | performed at [facility];[address] | | LAB | | | | [address];[place], [place] | | | | | | [address] | | | | + + + [...] TV A Star: 0.46 m/s TV Dec [place]: 2.14 m/s2 TV Dec Time: | | | 223.61 ms TV E Star: 0.47 m/s TV E/A Ratio: 1.03 | | | Hoop Machine Operator: DIDI Authenticated by: Dereck Galicia Report | [...] (A-L): | | 16.36 ml/m2LAAs A2C: 13.19 [id number] A-L A2C: 34.91 mlLALs A2C: 4.23 cmLAAs A4C: | | 11.37 uf7JZMLZ A-L A4C: 29.21 mlLALs A4C: 3.75 cmRAAd: 13.57 [id number] A-L: | | 35.22 mlRAEDV MOD: 30.46 mlRALd: 4.44 cmTAPSE: 1.67 cmHR: 82.18 BPMAV maxPG: | | 3.19 mmHgAV meanP.99 mmHgAV Vmax: 0.89 m/Simran Vmean: 0.69 m/Simran VTI: 18.16 | | cmAVA Vmax: 3.34 cm2AVA (VTI): 3.51 qb4LLJQ Vmax: 0.00 cm2/m2AVAI (VTI): 0.00 | | cm2/m2LVCI Dopp: 2.41 l/iqdy5TURE Dopp: 5.00 l/minHR: 78.46 BPMLVOT maxP.34 | [...] 3 mmHgTV A Star: 0.46 m/sTV Dec [place]: 2.14 m/s2TV Dec Time: 223.61 | | msTV E Star: 0.47 m/sTV E/A Ratio: 1.03 Hoop Machine Operator: Nishaticated by: Dereck | | KorimerlaReport Date/Time: [...] A Star: 0.46 m/s | |TV Dec [place]: 2.14 m/s2 | |TV Dec Time: 223.61 ms | |TV E Star: 0.47 m/s | |TV E/A Ratio: 1.03 | | | |Hoop Machine Operator: GD | |Authenticated by: Dereck Galicia | [...] | | | Fingerstick | performed at [facility];[address] | | LAB | | | | [address];[place], [place] | | | | | | [address] | | | | + + + [...] | | | | | | ACUTE [place] Testing | | | | | | performed at [facility];[address] | | | | | | [facility];[place], [place] | | | | | | [address] | | | | + + + [...] + + | Historically converted procedure from [facility] Epic environment | EXTERNAL LAB | + [...] | | | PCRAbnormal Testing performed at [facility];[address] [place] [address];[place] [address] | | + + + + +---------+ [...]
--- OUTSIDE RECORDS SUMMARY | ~2019-09-25 | XMS | Clinical Summary ---
Demographics + + + | Address | [address] [place] [address] RD | | | [place] [address] | + + + | Home Phone [...] Team Providers + +------+ + | Care Flight Attendant Name | Role | Phone | + [...] + + + | Overview: Problem list manager php utility | + + + +---+ | [...] | [employer] | MODA | [id number] | | [phone] | | Medica | | MEDICAID HMO | HEALTH | | 018-Pr | 1 | | id | | | MDCD | | esent | | | | | | HMO OR | | | | | | + +--------+ +--------+ +---------+--------+ | [facility] | IHS | [id number] | | | | Indemn | | [...] Person | Self | [birth year] | [address] | | | al/Fam | | 1965 | [phone] | [place] | | | vikas | | | 8 (Home) | [address] | + +--------+ +--------+ + + Advance Directives + + + + + | Type | Date Recorded | Patient | Explanation | | | | Infant Toddler Lead Teacher | | + + + + + | Power of | | | | | Facility Planner | | | | + + + + + | Advance | | | | | Directive | | | | + + + + +
--- OUTSIDE RECORDS SUMMARY | ~2019-09-25 | XMS | Encounter Summary ---
Demographics + + + | Address | [address] | | | [place] [address] | + + + | Home Phone [...] Team Providers + +------+ + | Care Dock Operator Name | Role | Phone | [...] | | type | [address] | [place], | | | | | | [place], | [place] [address] | | | | | | [place] [address] | Phone: | | | | | | Phone: | [phone] | | | | | | [phone] | Fax: | | | | | | Fax: | [phone] | | | | | | [phone] | | +--------+ + + + + + Reason for Visit + + + | Reason | Comments | + + + | Hematuria | | + + + Encounter Details +--------+ + + + + | Date | Type | Department | Care Team | Description | +--------+ + + + + | 10/16/ | Emergency | [facility] | Keenan Estrada MD | Hematuria, | | 2019 | | MED CTR EMERGENCY | [address] | unspecified type | | | | CENTER [address] | [place] | (Primary Dx) | | | | [place] | [id number] | | | | | [address] | | | | | | [phone] | | | +--------+ + + + [...] + + +--------+ + + | Urology [facility] - | Outpatient | Routin | Hematuria, [...] + | [facility] | [address] | [place] | [phone] | | [facility] | | [address] | | | - LABORATORY | | | | + + + + + Urinalysis with Microscopic with Culture if Indicated (10/16/2018 4:27 PM PST) + + + + + + | Component | Value | Ref Range | Performed | Pathologist | | | | | At | Signature | + + + + + + | Color | Adriana (A) | Light Yellow, | [facility] | | | | | Yellow, Straw | [facility] [...] - 1.030 | [facility] | | | [place] | | | [facility] | | [...] | | Esterase, | | | [facility] | | | Urine | | [...] [address] | [place] | [phone] | | [facility] | | [address] | | | - LABORATORY | | [...]
--- OUTSIDE RECORDS SUMMARY | ~2019-09-25 | XMS | Encounter Summary ---
Demographics + + + | Address | [address] | | | [place] [address] | + + + | Home Phone [...] + + + | Author | [facility] | | | and [place] | + + + | Organization | [facility] | | [...] Team Providers + +------+ + | Care Beverage Server Name | Role | Phone | + +------+ + | Estrella Light PA-C | PCP | | + +------+ + Encounter Details +--------+ + + + + | Date | Type | Department | Care Team | Description | +--------+ + + + + | 09/22/ | Anesthesia | [facility] | Ilya Dodge | | | 2015 | Event | MED CTR MP INTRA OP | MD Ebonie [address] | | | | | [address] | [facility] | | | | | [place] | [place] [address] | | | | | [address] | [phone] | | | | | [phone] | | | +--------+ + + + [...]
--- OUTSIDE RECORDS SUMMARY | ~2019-09-25 | XMS | Encounter Summary ---
Demographics + + + | Address | [address] | | | [place] [address] | + + + | Home Phone | | + + + | Preferred Language | Unknown | + + + | Marital Status | Single | + + + | Adventist Affiliation | 1077 | + + + | Race | Unknown | + + + | Ethnic Group | Unknown | + + + Author + + + | Author | [facility] | | | and [place] | + + + | Organization | [facility] | | | and [...] Team Providers + +------+ + | Care Plant Controller Name | Role | Phone | + +------+ + | Estrella Light PA-C | PCP | | + +------+ + Encounter Details +--------+ + + + + | Date | Type | Department | Care Team | Description | +--------+ + + + + | 05/12/ | Orders Only | [facility] | Provider, | | | 2019 | | SYSTEM GENERIC OP | [address] | | | | | CONVERSION [address] | [place] | | | | | [address] [place], [place] | [place] [address] | | | | | [address] | | | | | | [phone] | | | +--------+ + + + [...]
--- OUTSIDE RECORDS SUMMARY | ~2019-09-25 | XMS | Encounter Summary ---
Demographics + + + | Address | [address] | | | [place] [address] | + + + | Home Phone | | + + + | Preferred Language | Unknown | + + + | Marital Status | Single | + + + | Pentecostalism Affiliation | 1077 | + + + [...] Team Providers + +------+ + | Care Edi Manager Name | Role | Phone | [...] + + | 09/22/ | Telephone | [facility] | Avi Forde MD | Other | | 2014 | | GASTROENTEROLOGY | [address] [place] | | | | | [address] [facility] | [address] [place] | | | | | [address] [place], [place] | [address] | | | | | [address] | | | | | | [phone] | | | +--------+ + + + [...]
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
--- OUTSIDE RECORDS SUMMARY | ~2019-09-25 | XMS | Encounter Summary ---
Demographics + + + | Address | [address] | | | [place] [address] | + + + | Home Phone [...] Team Providers + +------+ + | Care Calculation Clerk Name | Role | Phone | [...] | | type | [address] | [place], | | | | | | [place], | [place] [address] | | | | | | [place] [address] | Phone: | | | | | | Phone: | [phone] | | | | | | [phone] | Fax: | | | | | | Fax: | [phone] | | | | | | [phone] | | +--------+ + + + + + Reason for Visit + + + | Reason | Comments | + + + | Hematuria | | + + + Encounter Details +--------+ + + + + | Date | Type | Department | Care Team | Description | +--------+ + + + + | 10/16/ | Emergency | [facility] | Keenan Estrada MD | Hematuria, | | 2019 | | MED CTR EMERGENCY | [address] | unspecified type | | | | CENTER [address] | [place] | (Primary Dx) | | | | [place] | [id number] | | | | | [address] | | | | | | [phone] | | | +--------+ + + + [...] + + +--------+ + + | Urology [facility] - | Outpatient | Routin | [...] + | [facility] | [address] | [place] | [phone] | | [facility] | | [address] | | | - LABORATORY | | [...] - 1.030 | [facility] | | | [place] | | | [facility] | | [...] [address] | [place] | [phone] | | [facility] | | [address] | | | - LABORATORY | | [...]
--- OUTSIDE RECORDS SUMMARY | ~2019-09-25 | XMS | Encounter Summary ---
Demographics + + + | Address | [address] | | | [place] [address] | + + + | Home Phone | | + + + | Preferred Language | Unknown | + + + | Marital Status | Single | + + + | Worship Affiliation | 1077 | + + + [...] Team Providers + +------+ + | Care Link Trainer Operator Name | Role | Phone | + +------+ + | Estrella Light PA-C | PCP | | + +------+ + Encounter Details +--------+ + + + + | Date | Type | Department | Care Team | Description | +--------+ + + + + | 09/04/ | Abstract | [facility] | Avi Forde MD | | | 2014 | | GASTROENTEROLOGY | [address] [place] | | | | | [address] [place] | [address] [place] | | | | | [address] [place], [place] | [address] | | | | | [address] | | | | | | [phone] | | | +--------+ + + + [...]
--- OUTSIDE RECORDS SUMMARY | ~2019-09-25 | XMS | Encounter Summary ---
Demographics + + + | Address | [address] | | | [place] [address] | + + + | Home Phone | | + + + | Preferred Language | Unknown | + + + | Marital Status | Single | + + + | Mandaen Affiliation | 1077 | + + + | Race | Unknown | + + + | Ethnic Group | Unknown | + + + Author + + + | Author | [facility] | | | and [place] | + + + | Organization | [facility] | | | [...] Team Providers + +------+ + | Care Apartment Maintenance Manager Name | Role | Phone | [...] + + | 04/12/ | Telephone | [facility] | Avi Forde MD | Hosp No Show | | 2015 | | GASTROENTEROLOGY | [address], [place] | (egds,colon) | | | | [address] [place] | [address] [place] | | | | | [address] [place], [place] | [address] | | | | | [address] | | | | | | [phone] | | | +--------+ + + + [...]
--- OUTSIDE RECORDS SUMMARY | ~2019-09-25 | XMS | Encounter Summary ---
Demographics + + + | Address | [address] | | | [place] [address] | + + + | Home Phone [...] Team Providers + +------+ + | Care Information Services Consultant Name | Role | Phone | + +------+ + | Estrella Light PA-C | PCP | | + +------+ + Encounter Details +--------+ + + + + | Date | Type | Department | Care Team | Description | +--------+ + + + + | 05/12/ | Orders Only | [facility] | Provider, | | | 2019 | | SYSTEM GENERIC OP | [address] | | | | | CONVERSION [address] | [place] | | | | | [address] [place], [place] | [place] [address] | | | | | [address] | | | | | | [phone] | | | +--------+ + + + [...]
--- OUTSIDE RECORDS SUMMARY | ~2019-09-25 | XMS | Encounter Summary ---
Demographics + + + | Address | [address] | | | [place] [address] | + + + | Home Phone [...] + + + | Author | [facility] | | | and [place] | + + + | Organization | [facility] | | | [...] Team Providers + +------+ + | Care Academic Support Specialist Name | Role | Phone | [...] + + | 04/12/ | Telephone | [facility] | Avi Forde MD | [facility] No Show | | 2015 | | GASTROENTEROLOGY | [address], [place] | | | | | [address] [place] | [address] [place] | | | | | [address] [place], [place] | [address] | | | | | [address] | | | | | | [phone] | | | +--------+ + + + [...]
--- OUTSIDE RECORDS SUMMARY | ~2019-09-25 | XMS | Encounter Summary ---
Demographics + + + | Address | [address] | | | [place] [address] | + + + | Home Phone [...] + + + | Author | [facility] | | | and [place] | + + + | Organization | [facility] | | [...] Team Providers + +------+ + | Care Client Retention Specialist Name | Role | Phone | + +------+ + PCP | Unavailable | + +------+ + Encounter Details +--------+ + + + + | Date | Type | Department | Care Team | Description | +--------+ + + + + | 07/19/ | Hospital | [facility] | | | | 1992 | Encounter | MED CTR MP INTRA OP | | | | | | [address] | | | | | | [place] | | | | | | [address] | | | | | | [phone] | | | +--------+ + + + [...]
--- OUTSIDE RECORDS SUMMARY | ~2019-09-25 | XMS | Encounter Summary ---
Demographics + + + | Address | [address] | | | [place] [address] | + + + | Home Phone [...] Team Providers + +------+ + | Care Chicken Catcher Name | Role | Phone | + +------+ + | Estrella Light PA-C | PCP | | + +------+ + Encounter Details +--------+ + + + + | Date | Type | Department | Care Team | Description | +--------+ + + + + | 01/13/ | Hospital | [facility] | Conversion | Diagnosis unknown | | 2018 | Encounter | CONVERSION [address] | Transaction, | | | | | [address] | Provider Unknown | | | | | [place] | | | | | | [address] | (Fax) | | | | | [phone] | | | +--------+ + + + [...]
--- OUTSIDE RECORDS SUMMARY | ~2019-09-25 | XMS | Encounter Summary ---
Demographics + + + | Address | [address] | | | [place] [address] | + + + | Home Phone [...] Team Providers + +------+ + | Care Cavity Pump Operator Name | Role | Phone | [...] antibody | [address] [place], | | | | | positive | [place], [place] | [place] [address] | | | | | Chronic | [address] [place] | [place], | | | | | diarrhea | [place], [place] | [place] [address] | | | | | Procedures | [address] | Phone: | | | | | [place] | Phone: | [phone] | | | | | COLONOSCOPY | [phone] | Fax: | | | | | FLX DX | Fax: | [phone] | | | | | W/COLLJ SPEC | [phone] | | | | | | WHEN PFRMD | | | | | | | [place] | | | | | | | COLONOSCOPY | | | | | | | W/BIOPSY | | | | | | | SINGLE/MULTI | | | | | | | PLE [place] | | | | | | | COLSC FLX | | | | | | | W/RMVL OF | | | | | | | TUMOR POLYP | | | | | | | LESION SNARE | | | | | | | TQ [place] | | | | | | | ESOPHAGOGAST | | | | | | | RODUODENOSCO | | | | | | | PY TRANSORAL | | | | | | | DIAGNOSTIC | | | | | | | [place] EDG | | | | | | [...] 2015 | | GASTROENTEROLOGY | [address], [place] | (egd/colon ) | | | | [address] [place] | [address] [place], [place] | | | | | 210 [place], [place] | [address] | | | | | [address] | | | | | | [phone] | | | +--------+ + + + [...]
--- OUTSIDE RECORDS SUMMARY | ~2019-09-25 | XMS | Encounter Summary ---
Demographics + + + | Address | [address] | | | [place] [address] | + + + | Home Phone [...] | Author | [facility] | | | and [place] | + + + | Organization | [facility] | | | and [...] Team Providers + +------+ + | Care Box Truck Owner Operator Name | Role | Phone | [...] diarrhea | [address] | [address], | | | | | IgG Gliadin | [place], [place] | [place] [address] | | | | | antibody | [address] [place] | [place], | | | | | positive | [place] | [place] [address] | | | | | Alcohol | [address] | Phone: | | | | | abuse | Phone: | [phone] | | | | | Procedures | [phone] | Fax: | | | | | [place] | Fax: | [phone] | | | | | COLONOSCOPY | [phone] | | | | | | FLX [...] 2014 | | GASTROENTEROLOGY | [address], [place] | (procedure ) | | | | [address] [place] | 210 [place], [place] | | | | | 210 [place], [place] | [address] | | | | | [address] | | | | | | [phone] | | | +--------+ + + + [...]
--- OUTSIDE RECORDS SUMMARY | ~2019-09-25 | XMS | Encounter Summary ---
Demographics + + + | Address | [address] | | | [place] [address] | + + + | Home Phone [...] Team Providers + +------+ + | Care Wood Miller Name | Role | Phone | + [...] [facility] | Avi Forde MD | [facility] No Show | | 2015 | | GASTROENTEROLOGY | [address], [place] | | | | | [address] [place] | [address] [place] | | | | | [address] [place], [place] | [address] | | | | | [address] | | | | | | [phone] | | | +--------+ + + + [...]
--- OUTSIDE RECORDS SUMMARY | ~2019-09-25 | XMS | Encounter Summary ---
Demographics + + + | Address | [address] | | | [place] [address] | + + + | Home Phone | | + + + | Preferred Language | Unknown | + + + | Marital Status | Single | + + + | Orthodoxy Affiliation | 1077 | + + + | Race | Unknown | + + + | Ethnic Group | Unknown | + + + Author + + + | Author | [facility] | | | and [place] | + + + | Organization | [facility] | | | [...] Team Providers + +------+ + | Care Printing Plate Clerk Name | Role | Phone | [...] | diarrhea | | | | [address] [place], [place] | [address] | | | | | [address] | | | | | | [phone] | | | +--------+ + + + [...]
--- OUTSIDE RECORDS SUMMARY | ~2019-09-25 | XMS | Encounter Summary ---
Demographics + + + | Address | [address] | | | [place] [address] | + + + | Home Phone [...] Team Providers + +------+ + | Care Bookbinder Apprentice Name | Role | Phone | [...] + + | 09/22/ | Telephone | [facility] | Avi Forde MD | Other | | 2014 | | GASTROENTEROLOGY | [address] | | | | | [address] [facility] | [address] | | | | | [address] [place], [place] | [id number] | | | | | [address] | | | | | | [phone] | | | +--------+ + + + [...]
--- OUTSIDE RECORDS SUMMARY | ~2019-09-25 | XMS | Encounter Summary ---
Demographics + + + | Address | [address] | | | [place] [address] | + + + | Home Phone | | + + + | Preferred Language | Unknown | + + + | Marital Status | Single | + + + | Congregational Affiliation | 1077 | + + + | Race | Unknown | + + + | Ethnic Group | Unknown | + + + Author + + + | Author | [facility] | | | and [place] | + + + | Organization | [facility] | | | [...] Team Providers + +------+ + | Care Sr Account Executive Name | Role | Phone | + [...] | diarrhea | | | | [address] [place], [place] | [address] | | | | | [address] | | | | | | [phone] | | | +--------+ + + + [...]
--- OUTSIDE RECORDS SUMMARY | ~2019-09-25 | XMS | Encounter Summary ---
Demographics + + + | Address | [address] | | | [place] [address] | + + + | Home Phone [...] + +------+ + | Care Director Of Blood Name | Role | Phone | + +------+ + | Estrella Light PA-C | PCP | | + +------+ + Encounter Details +--------+ + + + + | Date | Type | Department | Care Team | Description | +--------+ + + + + | 12/14/ | Hospital | [facility] | [place], | Osteomyelitis of | | 2017 - | Encounter | [facility] | MD Pavel [address] | foot, left, acute | | | | CARE FLOOR [address] | ([facility]); Uncontrolled | | 12/20/ | | [address] | [place] [address] | type 2 diabetes | | 2017 | | [place], [place] | [phone] | mellitus with | | | | [address] | | hyperglycemia, | | | | [phone] | | unspecified long | | | | | | term insulin use | | | | | | status ([facility]); Renal | | | | [...] 1933 Date of Service: 12/20/161538 Status: Addendum Fiscal Assistant: Bunny Chaney MD (Physician) Related Notes: Original Note by Bunny Chaney MD (Physician) filed at 12/26/16 0644 [facility] Service: Hospitalist Physician Discharge Summary Patient ID: Kuldip Smith [id number] y.o. 1965 Admit date: 12/14/2016 Discharge [...] been approved, which should be given from [facility] ec until further approval from insurance. [...] up: Estrella Light PA-C [address] [place] [address] Rebeca Reza MD [address] [facility] [address] Schedule an appointment as soon as possible for a visit in 10 days Dictation and link assembler or software, Brille24, used which may contain error for similar [...] - AMPUTATION; Surgeon: Walter Fernandez DPM; Location: [facility] MAIN OR; Service: Podiatry; Laterality: [...] Management by Jenny Vaughan RN at 12/20/16 4487 Author: Jenny Vaughan RN Service: (none) Author Type: Registered Nurse Filed: 12/20/16 5485 Date of Service: 12/20/161538 Status: Signed Fiscal Assistant: Jenny Vaughan RN (Registered Nurse) 1610 - Received call from [facility] stating they are now unable to accept pa tient due to a "freeze on admits". They are aware patient has been discharged and is en rou te to home. They are still unable to accept. Call placed to [facility] OPP rega rding need for services. They state pt will need to arrange wound care/dressing changes thr ough his PCP per insurance requirements. Voicemail left for Coby at [facility] to return call. Will need to call back in morning to schedule appointment as clinic is currently closed. onver ruben Transaction, Provider Unknown - 12/20/2016 3:39 PM PDT Case Management by Mirlande Prescott RN at 12/20/16 7147 Author: Mirlande Prescott RN Service: (none) Author Type: Registered Nurse Filed: 12/21/16 0808 Date of Service: 12/20/16 1539 Status: Signed Fiscal Assistant: Mirlande Prescott RN (Registered Nurse) 0800: Tc to pt's PCP, Coby Light, with [facility], to updat e about [facility] not being able to admit pt. Coby states she and Charlotte will work on getting pt the appropriate wound vac care he needs, they are going to try and get pt into O P wound therapy with [facility] or maybe to OP in WW. Coby states she will als o call [facility] as to when they can admit pt under their services. Maribel onver ruben Transaction, Provider Unknown - 12/20/2016 1:03 PM PDT Progress Notes by Rachael Molina RN at 12/20/16 1303 Author: Rachael Molina RN Service: Wound/Ostomy Care Author Type: Registered Nurse Filed: 12/20/16 1311 Date of Service: 12/20/16 1303 Status: Signed Fiscal Assistant: Rachael Molina RN (Registered Nurse) Wound care in to switch patient out to portable wound vac unit. This is a sol vac on l oan from [facility]. Explained to patient when his insurance approves his home vac unit, that t his sol vac is to be returned via [employer]. Instructions given in detail, voiced candelaria frias. Photo taken of tracking number and faxed to Alicia [facility] rep. Instructions on how to use [...] for further protection. Hospital vac dc'd in [facility] express: #[id number] Rachael Molina RN, ON 12/20/2016 1:10 PM onver ruben Transaction, Provider Unknown - 12/20/2016 11:34 AM PDT Case Management by Mirlande Prescott RN at 12/20/16 1134 Author: Mirlande Prescott RN Service: (none) Author Type: Registered Nurse Filed: 12/20/16 1459 Date of Service: 12/20/16 1134 Status: Addendum Fiscal Assistant: Mirlande Prescott RN (Registered Nurse) Related Notes: Original Note by Mirlande Prescott RN (Registered Nurse) filed at 12/20/16 114 9 Per rounding with pt, he will be d/c home today. Pt states his mother will be providing tra nsportation home. Wound vac has been approved by [facility]. [facility] has been set up, and they have been notified about d/c, pt may not be able t o be admitted until . Pt's wound dressing is due Monday. Tc to Angie with wound care, it's not ideal that pt's dressing doesn't get changed until , but it is ok to wait. Dr Chaney was notified and agrees with plan. Tc to Coby [phone] and Charlotte [phone] with [facility]/mannie pickens nd left mssgs of pt's d/c Today. Faxed AVS to [facility] Maribel Iqra Mcgregor PT - 12/20/2016 10:07 AM PDTFormatting of this note might be different from th e original. Therapy Progress Note by Karina Zabala PT at 12/20/16 1007 Author: Karina Zabala PT Service: (none) Author Type: Physical Therapist Filed: 12/20/16 1037 Date of Service: 12/20/16 1007 Status: Signed Fiscal Assistant: Karina Zabala PT (Physical Therapist) 12/20/16 [...] (none) Author Type: Physical Therapist Filed: 12/19/16 4384 Date of Service: 12/19/166 Status: Signed Fiscal Assistant: Natalia Marte PT (Physical Therapist) 12/19/16 1646 PT Last Visit PT Received On 12/19/16 Reason for Treatment Other (comment) (L foot osteomyelitis) Requires PT Follow Up Awaiting tx order Follow up PT Only? Yes (Assistive device assessment) Focus for Next Treatment Equipment Trial;Stair Training (bilateral axillary crutches and stair training) PT Eval/Reassessment Date 12/19/16 Assistance Required 1 person Strainer Tender Needed No Home Environment Type of Home Home one story Home Exterior Layout 1-3 steps (2 JEISON) Home Interior Layout Lives on main level with bedroom/bathroom Bathroom Shower/Tub Tub/shower unit Bathroom Toilet Raised Bathroom Equipment Grab bars outside of shower/bath;Raised toilet seat Bathroom Accessibility Not accessible Home Equipment Cane single point;Crutches-axillary Prior Function Level of [place] Independent with ADLs;Independent with IADLs;Modified independent wi [...] Eval/Reassessment Date 12/19/16 Assistance Required 1 person Strainer Tender Needed No Precautions LE Precaution(s) LLE Precautions/WB [...] Notes by Rebeca Reza MD at 12/19/16 6243 Author: Rebeca Reza MD Service: Infectious Disease Author Type: Physician Filed: 12/20/16 0639 Date of Service: 12/19/16 9854 Status: Signed Fiscal Assistant: Rebeca Reza MD (Physician) [facility] Service: Infectious Disease Progress Note Hospital [...] Dec 15 2016 9:30AM Referring Provider Line: [phone] ID: [id number] MRI foot left without contrast [[id number]] Impression 1. Recent amputation of the LEFT 4th toe. 2. No radiographic evidence of residual osteomyelitis in the remaining ossicles of the LEF T forefoot. 3. Moderately extensive vascular calcifications. X-ray foot left [[id number]] PROBLEM LIST Principal Problem: Osteomyelitis (HCC) Active [...] Date of Service: 12/19/16 1103 Status: Signed Fiscal Assistant: Dell Archer DO (Physician) PROGRESS NOTE [...] 1103 Date of Service: 12/19/16914 Status: Addendum Fiscal Assistant: Jenny Vaughan RN (Registered Nurse) Related Notes: Original Note by Jenny Vaughan RN (Registered Nurse) filed at 12/19/16 1 521 2020 - [facility]. She wi ll be following [...] accept patient. Face to face order faxed ([phone]) [facility] RN [phone] Alicia with [facility] notified of wound vac placement. Auth form signed by hospitalist and faxed to Alicia. Lilly with [facility] Care notified of patient discharging on oral antibiotics. onver ruben Transaction, Provider Unknown - 12/18/2016 6:45 PM PDT Nurse Progress Note by Gerber Hay RN at 12/18/161844 Author: Gerber Hay RN Service: (none) Author Type: Registered Nurse Filed: 12/18/161847 Date of Service: 12/18/161844 Status: Signed Fiscal Assistant: Gerber Hay RN (Registered Nurse) Pt [...] 12/18/16933 Date of Service: 12/18/16928 Status: Addendum Fiscal Assistant: Dell Archer DO (Physician) Related Notes: [...] 12/18/16899 Date of Service: 12/18/16854 Status: Signed Fiscal Assistant: Walter Fernandez DPM (Doctor of Podiatric Medicine) [facility] Service: Podiatry Progress Note Hospital Day: [...] home health care. Dr. David DPM in [place] take s care of this patient and [...] 12/18/16845 Date of Service: 12/18/16845 Status: Signed Fiscal Assistant: Destini Vargas RPH (Pharmacist) Day 5 [...] 1108 Date of Service: 12/18/16820 Status: Signed Fiscal Assistant: Rebeca Reza MD (Physician) [facility] Service: Infectious Disease Progress Note Hospital [...] Dec 15 2016 9:30AM Referring Provider Line: [phone] ID: [id number] MRI foot left without contrast [[id number]] Impression 1. Recent amputation of the LEFT 4th toe. 2. No radiographic evidence of residual osteomyelitis in the remaining ossicles of the LEF T forefoot. 3. Moderately extensive vascular calcifications. X-ray foot left [[id number]] PROBLEM LIST Principal Problem: Osteomyelitis (HCC) Active [...] Note by Jihan Jacinto RPH at 12/17/16 3419 Author: Jihan Jacinto RPH Service: Pharmacy Author Type: Pharmacist Filed: 12/17/162246 Date of Service: 12/17/162246 Status: Signed Fiscal Assistant: Jihan Jacinto RPH (Pharmacist) Clinical Pharmacy Note: Pharmacy Dosing Vancomycin; Day 4 Weight: 89.9 kg WBC: 14.59 CREATININE: 0.9 (12/17/16 05) Estimated creatinine clearance - 112.1 mL/min INDICATION: Osteomyelitis Recent level drawn 12/17 at 2000 - 17.4 mcg/mL; within goal 15 to 20 mcg/mL. Will continue current regimen: Vancomycin 1500 mg (16.7 mg/kg) IV Q12H. Jihan Jcainto, PharmD 12/17/2016 10:46 PM onver ruben Transaction, Provider Unknown - 12/17/2016 5:43 PM PDT Nurse Progress Note by Gerber Hay RN at 12/17/161742 Author: Gerber Hay RN Service: (none) Author Type: Registered Nurse Filed: 12/17/161750 Date of Service: 12/17/161742 Status: Signed Fiscal Assistant: Gerber Hay RN (Registered Nurse) Wound [...] Notes by Rebeca Reza MD at 12/17/16 4690 Author: Rebeca Reza MD Service: Infectious Disease Author Type: Physician Filed: 12/17/16 1708 Date of Service: 12/17/16 1510 Status: Addendum Fiscal Assistant: Rebeca Reza MD (Physician) Related Notes: Original Note by Rebeca Reza MD (Physician) filed at 12/17/16 3528 [facility] Service: Infectious Disease Progress Note Hospital [...] Dec 15 2016 9:30AM Referring Provider Line: [phone] ID: [id number] MRI foot left without contrast [[id number]] Impression 1. Recent amputation of the LEFT 4th toe. 2. No radiographic evidence of residual osteomyelitis in the remaining ossicles of the LEF T forefoot. 3. Moderately extensive vascular calcifications. X-ray foot left [[id number]] PROBLEM LIST Principal Problem: Osteomyelitis (HCC) Active [...] Doctor of Podiatric Medi cine Filed: 12/17/16 1657 Date of Service: 12/17/16 1406 Status: Signed Fiscal Assistant: Walter Fernandez DPM (Doctor of Podiatric Medicine) [facility] Service: Podiatry Progress Note Hospital Day: [...] Disposition: Stable Code Status: Full Code WALTER EFRNANDEZ DPM 12/17/2016 onversion Ledesma saction, Provider Unknown - 12/17/2016 11:44 AM PDTFormatting of this note might be differen t from the original. Nurse Progress Note by Gerber Hay RN at 12/17/16 6043 Author: Gerber Hay RN Service: (none) Author Type: Registered Nurse Filed: 12/17/16 4549 Date of Service: 12/17/16 1144 Status: Signed Fiscal Assistant: Gerber Hay RN (Registered Nurse) Pt [...] Notes by Dell Archer DO at 12/17/16 1058 Author: Dell Archer DO Service: Hospitalist Author Type: Physician Filed: 12/17/16 1103 Date of Service: 12/17/16 1050 Status: Signed Fiscal Assistant: Dell Archer DO (Physician) PROGRESS NOTE [...] 12/17/16834 Date of Service: 12/17/16834 Status: Signed Fiscal Assistant: Destini Vargas RPH (Pharmacist) Day 4 [...] 12/17/168 Date of Service: 12/17/16307 Status: Signed Fiscal Assistant: Jihan Jacinto RPH (Pharmacist) Clinical Pharmacy [...] 12/16/161719 Date of Service: 12/16/161709 Status: Signed Fiscal Assistant: Walter Fernandez DPM (Doctor of Podiatric Medicine) [facility] Service: Podiatry Progress Note Hospital Day: [...] Notes by Rebeca Reza MD at 12/16/16 4082 Author: Rebeca Reza MD Service: Infectious Disease Author Type: Physician Filed: 12/16/16 1606 Date of Service: 12/16/166 Status: Signed Fiscal Assistant: Rebeca Reza MD (Physician) [facility] Service: Infectious Disease Progress Note Hospital [...] Dec 15 2016 9:30AM Referring Provider Line: [phone] ID: [id number] MRI foot left without contrast [[id number]] Impression 1. Recent amputation of the LEFT 4th toe. 2. No radiographic evidence of residual osteomyelitis in the remaining ossicles of the LEF T forefoot. 3. Moderately extensive vascular calcifications. X-ray foot left [[id number]] PROBLEM LIST Principal Problem: Osteomyelitis (HCC) Active [...] from the original. Case Management by Jenny Vuaghan RN at 12/16/16 2185 Author: Jenny Vaughan RN Service: (none) Author Type: Registered Nurse Filed: 12/16/16 6669 Date of Service: 12/16/16 1444 Status: Signed Fiscal Assistant: Jenny Comfort, RN (Registered Nurse) 12/16/16 4730 Discharge Planning Evaluation Admitting Diagnosis osteomyelitis Readmission No Living Arrangements Parent Support Systems Parent;Family members Type of Residence Private residence House type House-1 story Steps to enter 2 Independent with ADL's Yes Independent with Mobility Yes Mental Status Oriented Prior functional status not employed, independent Power of Dermatology Nurse Practitioner No Anticipated Discharge Plan Post Acute Care [...] PCP is: Estrella Light PA-C Patient's insurance: Medicare/[facility] Coverage concerns: None Medication coverage/concerns: None Community resources utilized / needed: TBD pending pt progress and treatment plan. Sascha garcia need home health services along with IV abx. Discussed with patient and he states und erstanding. Referral sent to [facility] for nursing services as patient lives in [place]. Options for home IV abx services provided to pt/family and they do not have a preference. Referral to [facility] will follow. Pt/family requested I notify Coby at the [facility] of pt status as she ar ranges services for them. Contacted Coby and provided current discharge plan. If there is a change in plan, Coby requests to be notified as she will continue to follow patient after discharge. She also states pt will be followed by their community health nurse (Charlotte ) who works alongside [facility]. Coby [facility] [phone] Assistance in transportation: Pt's family is able [...] Date of Service: 12/16/16 1012 Status: Signed Fiscal Assistant: Dell Archer DO (Physician) PROGRESS NOTE [...] Date of Service: 12/15/16 1248 Status: Signed Fiscal Assistant: Jenny Vaughan RN (Registered Nurse) Attempted [...] 12/15/16405 Date of Service: 12/15/16405 Status: Signed Fiscal Assistant: Jihan Jacinto RPH (Pharmacist) Clinical Pharmacy [...] 12/15/16404 Date of Service: 12/15/16404 Status: Signed Fiscal Assistant: Jihan Jacinto RPH (Pharmacist) Clinical Pharmacy [...] | | Fingerstick | performed at [facility];88 | | LAB | | | | [address];[place] | | | | | | [address] | | | | + + [...] | | | | performed at [facility];[address] | | LAB | | | | [address];[place], [place] | | | | | | [address] | | | | + + + [...] | | | | performed at [facility];[address] | K/uL | LAB | | | | [address];[place] | | | | | | [address] | | | | + + + + + + | RED CELL | 4.00 (L)Comment: Testing | 4.20 - 5.70 | EXTERNAL | | | COUNT | performed at [facility];[address] | M/uL | LAB | | | | [address];[place] | | | | | | [address] | | | | + + + + + + | Hgb | 11.6 (L)Comment: Testing | 13.2 - 17.0 | EXTERNAL | | | | performed at [facility];888 | g/dL | LAB | | | | [address];[place] | | | | | | [address] | | | | + + + + + + | Hematocrit, | 33.9 (L)Comment: Testing | 39.0 - 50.0 % | EXTERNAL | | | POC | performed at [facility];[address] | | LAB | | | | [address];[place] | | | | | | [address] | | | | + + + + + + | MCV | 84.7Comment: Testing | 80.0 - 100.0 fl | EXTERNAL | | | | performed at [facility];[address] | | LAB | | | | [address];[place] | | | | | | [address] | | | | + + + + + + | MCH | 28.9Comment: Testing | 27.0 - 34.0 pg | EXTERNAL | | | | performed at [facility];[address] | | LAB | | | | [address];[place] | | | | | | [address] | | | | + + + + + + | MCHC | 34.1Comment: Testing | 32.0 - 35.5 | EXTERNAL | | | | performed at [facility];888 | g/dL | LAB | | | | [address];[place] | | | | | | [address] | | | | + + + + + + | RDW-CV | 42.0Comment: Testing | 37 - 53 fl | EXTERNAL | | | | performed at [facility];[address] | | LAB | | | | [address];[place] | | | | | | [address] | | | | + + + + + + | Platelet | 392Comment: Testing | 150 - 400 K/uL | EXTERNAL | | | Count | performed at [facility];[address] | | LAB | | | Plasma | [address];[place] | | | | | | [address] | | | | + + + + + + | MPV | 7.0Comment: Testing | fl | EXTERNAL | | | | performed at [facility];[address] | | LAB | | | | [address];[place] | | | | | | [address] | | | | + + + + + + | Differentia | MANUALComment: Testing | | EXTERNAL | | | l Type | performed at [facility];[address] | | LAB | | | | [address];[place] | | | | | | [address] | | | | + + + + + + | Segmented | 69Comment: Testing | % | EXTERNAL | | | Neutrophils | performed at [facility];[address] | | LAB | | | Manual | [address];[place] | | | | | | [address] | | | | + + + + + + | Lymphocytes | 21Comment: Testing | % | EXTERNAL | | | Manual | performed at [facility];[address] | | LAB | | | | [address];[place] | | | | | | [address] | | | | + + + + + + | Monocytes | 4Comment: Testing | % | EXTERNAL | | | Manual | performed at [facility];[address] | | LAB | | | | [address];[place] | | | | | | [address] | | | | + + + + + + | Eosinophils | 6Comment: Testing | % | EXTERNAL | | | Manual | performed at [facility];[address] | | LAB | | | | [address];[place] | | | | | | [address] | | | | + + + + + + | Absolute | 5.08Comment: Testing | 1.90 - 7.40 | EXTERNAL | | | Neutrophils | performed at [facility];888 | K/uL | LAB | | | | [address];[place] | | | | | | [address] | | | | + + + + + + | Absolute | 1.55Comment: Testing | 1.00 - 3.90 | EXTERNAL | | | Lymphocytes | performed at [facility];888 | K/uL | LAB | | | | [address];[place] | | | | | | [address] | | | | + + + + + + | Absolute | 0.29Comment: Testing | 0.00 - 0.80 | EXTERNAL | | | Monocytes | performed at [facility];888 | K/uL | LAB | | | | [address];[place] | | | | | | [address] | | | | + + + + + + | Absolute | 0.44Comment: Testing | 0.00 - 0.50 | EXTERNAL | | | Eosinophils | performed at [facility];888 | K/uL | LAB | | | | [address];[place] | | | | | | [address] | | | | + + + + + + | RBC | NORMALComment: Testing | | EXTERNAL | | | Morphology | performed at [facility];[address] | | LAB | | | | [address];[place] | | | | | | [address] | | | | + + + [...] | | | | performed at [facility];[address] | | LAB | | | | [address];[place] | | | | | | [address] | | | | + + + [...] | | Fingerstick | performed at [facility];[address] | | LAB | | | | [address];[place], [place] | | | | | | [address] | | | | + + + [...] | | Fingerstick | performed at [facility];[address] | | LAB | | | | [address];[place] | | | | | | [address] | | | | + + + [...] | | Fingerstick | performed at [facility];[address] | | LAB | | | | [address];[place] | | | | | | [address] | | | | + + + [...] | | Fingerstick | performed at [facility];[address] | | LAB | | | | [address];[place] | | | | | | [address] | | | | + + + [...] | | Fingerstick | performed at [facility];[address] | | LAB | | | | [address];[place], [place] | | | | | | [address] | | | | + + + [...] | | Fingerstick | performed at [facility];[address] | | LAB | | | | [address];[place] | | | | | | [address] | | | | + + + [...] | | Fingerstick | performed at [facility];[address] | | LAB | | | | [address];[place], [place] | | | | | | [address] | | | | + + + [...] | | Fingerstick | performed at [facility];[address] | | LAB | | | | [address];[place] | | | | | | [address] | | | | + + + [...] | EXTERNAL LAB | | performed at [facility];[address] [place] [address];[place] [address] TOXIN A | | | NEGATIVE Testing performed at | | | [facility];[address] [facility];[place] [address] C DIFF INTERPRETATION | | | Negative for toxigenic C.difficile. Testing performed at | | | [facility];[address] [place] [address];[place] [address] | | + + + + +---------+ [...] | | Fingerstick | performed at [facility];[address] | | LAB | | | | [address];[place] | | | | | | [address] | | | | + + + [...] EXTERNAL | | | | performed at [facility], [address] | K/uL | LAB | | | | [address], | | | | | | [place] [address] | | | | + + + + + + | RED CELL | 3.92 (L)Comment: Testing | 4.20 - 5.70 | EXTERNAL | | | COUNT | performed at [facility], [address] | M/uL | LAB | | | | [address], | | | | | | [place] [address] | | | | + + + + + + | Hgb | 11.2 (L)Comment: Testing | 13.2 - 17.0 | EXTERNAL | | | | performed at [facility], [address] | g/dL | LAB | | | | [address], | | | | | | [place] [address] | | | | + + + + + + | Hematocrit, | 33.6 (L)Comment: Testing | 39.0 - 50.0 % | EXTERNAL | | | POC | performed at [facility], [address] | | LAB | | | | [address], | | | | | | [place] [address] | | | | + + + + + + | MCV | 85.9Comment: Testing | 80.0 - 100.0 fl | EXTERNAL | | | | performed at [facility], [address] | | LAB | | | | [address], | | | | | | [place] [address] | | | | + + + + + + | MCH | 28.7Comment: Testing | 27.0 - 34.0 pg | EXTERNAL | | | | performed at [facility], [address] | | LAB | | | | [address], | | | | | | [place] [address] | | | | + + + + + + | MCHC | 33.4Comment: Testing | 32.0 - 35.5 | EXTERNAL | | | | performed at [facility], [address] | g/dL | LAB | | | | [address], | | | | | | [place] [address] | | | | + + + + + + | RDW-CV | 41.1Comment: Testing | 37 - 53 fl | EXTERNAL | | | | performed at [facility], [address] | | LAB | | | | [address], | | | | | | [place] [address] | | | | + + + + + + | Platelet | 341Comment: Testing | 150 - 400 K/uL | EXTERNAL | | | Count | performed at [facility], [address] | | LAB | | | Plasma | [address], | | | | | | [place] [place] [address] | | | | + + + + + + | MPV | 7.6Comment: Testing | fl | EXTERNAL | | | | performed at [facility], [address] | | LAB | | | | [address], | | | | | | [place] [address] | | | | + + + + + + | Differentia | AUTOMATEDComment: | | EXTERNAL | | | l Type | Testing performed at | | LAB | | | | [facility], [address] | | | | | | [place] | | | | | | [address] | | | | + + + + + + | % Segmented | 76.22Comment: Testing | % | EXTERNAL | | | | performed at [facility], [address] | | LAB | | | Neutrophils | [address], | | | | | | [place] [address] | | | | + + + + + + | % | 12.04Comment: Testing | % | EXTERNAL | | | Lymphocytes | performed at [facility], [address] | | LAB | | | | [address], | | | | | | [place] [address] | | | | + + + + + + | % Monocytes | 6.15Comment: Testing | % | EXTERNAL | | | | performed at [facility], [address] | | LAB | | | | [address], | | | | | | [place] [address] | | | | + + + + + + | % | 4.73Comment: Testing | % | EXTERNAL | | | Eosinophils | performed at [facility], [address] | | LAB | | | | [address], | | | | | | [place] [address] | | | | + + + + + + | % Basophils | 0.86Comment: Testing | % | EXTERNAL | | | | performed at [facility], [address] | | LAB | | | | [address], | | | | | | [place] [address] | | | | + + + + + + | Absolute | 8.38 (H)Comment: Testing | 1.90 - 7.40 | EXTERNAL | | | Segmented | performed at [facility], [address] | [address] | LAB | | | Neutrophils | [address], | | | | | | [place] [address] | | | | + + + + + + | Absolute | 1.32Comment: Testing | 1.00 - 3.90 | EXTERNAL | | | Lymphocytes | performed at [facility], [address] | [address] | LAB | | | | [address], | | | | | | [place] [address] | | | | + + + + + + | Absolute | 0.68Comment: Testing | 0.00 - 0.80 | EXTERNAL | | | Monocytes | performed at [facility], [address] | K/uL | LAB | | | | [address], | | | | | | [place] [address] | | | | + + + + + + | Absolute | 0.52 (H)Comment: Testing | 0.00 - 0.50 | EXTERNAL | | | Eosinophils | performed at [facility], [address] | [address] | LAB | | | | [address], | | | | | | [place] [address] | | | | + + + + + + | Absolute | 0.10Comment: Testing | 0.00 - 0.10 | EXTERNAL | | | Basophils | performed at [facility], [address] | [address] | LAB | | | | [address], | | | | | | [place] [address] | | | | + + + [...] | | | | [place] [address] | | | | + + + + + + | K | 3.8Comment: Testing | 3.5 - 4.9 | EXTERNAL | | | | performed at [facility], [address] | mmol/L | LAB | | | | [address], | | | | | | [place] [address] | | | | + + + + + + | Cl | 105Comment: Testing | 99 - 109 mmol/L | EXTERNAL | | | | performed at [facility], [address] | | LAB | | | | [address], | | | | | | [place] [address] | | | | + + + + + + | CO2 | 25Comment: Testing | 23 - 32 mmol/L | EXTERNAL | | | | performed at [facility], [address] | | LAB | | | | [address], | | | | | | [place] [address] | | | | + + + + + + | Anion Gap | 12Comment: Testing | 5 - 20 mmol/L | EXTERNAL | | | | performed at [facility], [address] | | LAB | | | | [address], | | | | | | [place] [address] | | | | + + + + + + | Glucose, | 236 (H)Comment: Testing | 65 - 99 mg/dL | EXTERNAL | | | Fasting | performed at [facility], [address] | | LAB | | | | [address], | | | | | | [place] [address] | | | | + + + + + + | BUN | 6 (L)Comment: Testing | 8 - 25 mg/dL | EXTERNAL | | | | performed at [facility], [address] | | LAB | | | | [address], | | | | | | [place] [address] | | | | + + + + + + | Creatinine | 0.9Comment: Testing | 0.70 - 1.30 | EXTERNAL | | | | performed at [facility], [address] | mg/dL | LAB | | | | [address], | | | | | | [place] [address] | | | | + + + + + + | BUN/Creatin | 7Comment: Testing | | EXTERNAL | | | ine Ratio | performed at [facility], [address] | | LAB | | | | [place] [address], | | | | | | [place] [address] | | | | + + + + + + | Calcium | 8.3 (L)Comment: Testing | 8.5 - 10.5 | EXTERNAL | | | | performed at [facility], [address] | mg/dL | LAB | | | | [address], | | | | | | [place] [address] | | | | + + + [...] Man, | | | | | | [place] [address] | | | | + + + [...] | | Fingerstick | performed at [facility];[address] | | LAB | | | | [address];[place] | | | | | | [address] | | | | + + + [...] | | | | performed at [facility];[address] | | | | | | [address];[place] | | | | | | [address] | | | | + + + [...] | | Fingerstick | performed at [facility];[address] | | LAB | | | | [address];[place], [place] | | | | | | [address] | | | | + + + [...] | | Fingerstick | performed at [facility];[address] | | LAB | | | | [address];[place] | | | | | | [address] | | | | + + + [...] | | Fingerstick | performed at [facility];[address] | | LAB | | | | [address];[place] | | | | | | [address] | | | | + + + [...] [place] | | | | | | [address] | | | | + + + + + + | RED CELL | 4.13 (L)Comment: Testing | 4.20 - 5.70 | EXTERNAL | | | COUNT | performed at [facility], [address] | M/uL | LAB | | | | [address], | | | | | | [place] [address] | | | | + + + + + + | Hgb | 11.7 (L)Comment: Testing | 13.2 - 17.0 | EXTERNAL | | | | performed at [facility], [address] | g/dL | LAB | | | | [address], | | | | | | [place] [address] | | | | + + + + + + | Hematocrit, | 34.8 (L)Comment: Testing | 39.0 - 50.0 % | EXTERNAL | | | POC | performed at [facility], [address] | | LAB | | | | [address], | | | | | | [place] [address] | | | | + + + + + + | MCV | 84.2Comment: Testing | 80.0 - 100.0 fl | EXTERNAL | | | | performed at [facility], [address] | | LAB | | | | [address], | | | | | | [place] [address] | | | | + + + + + + | MCH | 28.2Comment: Testing | 27.0 - 34.0 pg | EXTERNAL | | | | performed at [facility], [address] | | LAB | | | | [address], | | | | | | [place] [address] | | | | + + + + + + | MCHC | 33.5Comment: Testing | 32.0 - 35.5 | EXTERNAL | | | | performed at [facility], [address] | g/dL | LAB | | | | [address], | | | | | | [place] [address] | | | | + + + + + + | RDW-CV | 42.0Comment: Testing | 37 - 53 fl | EXTERNAL | | | | performed at [facility], [address] | | LAB | | | | [address], | | | | | | [place] [address] | | | | + + + + + + | Platelet | 329Comment: Testing | 150 - 400 K/uL | EXTERNAL | | | Count | performed at [facility], [address] | | LAB | | | Plasma | [address], | | | | | | [place] [address] | | | | + + + + + + | MPV | 7.9Comment: Testing | fl | EXTERNAL | | | | performed at [facility], [address] | | LAB | | | | [address], | | | | | | [place] [address] | | | | + + + + + + | Differentia | AUTOMATEDComment: | | EXTERNAL | | | l Type | Testing performed at | | LAB | | | | [facility], [address] | | | | | | [place] | | | | | | [address] | | | | + + + + + + | % Segmented | 83.29Comment: Testing | % | EXTERNAL | | | | performed at [facility], [address] | | LAB | | | Neutrophils | [address], | | | | | | [place] [address] | | | | + + + + + + | % | 8.71Comment: Testing | % | EXTERNAL | | | Lymphocytes | performed at [facility], [address] | | LAB | | | | [address], | | | | | | [place] [address] | | | | + + + + + + | % Monocytes | 5.08Comment: Testing | % | EXTERNAL | | | | performed at [facility], [address] | | LAB | | | | [address], | | | | | | [place] [address] | | | | + + + + + + | % | 2.32Comment: Testing | % | EXTERNAL | | | Eosinophils | performed at [facility], [address] | | LAB | | | | [address], | | | | | | [place] [address] | | | | + + + + + + | % Basophils | 0.60Comment: Testing | % | EXTERNAL | | | | performed at [facility], [address] | | LAB | | | | [address], | | | | | | [place] [address] | | | | + + + + + + | Absolute | 12.15 (H)Comment: | 1.90 - 7.40 | EXTERNAL | | | Segmented | Testing performed at | K/uL | LAB | | | Neutrophils | [facility], [address] | | | | | | [place] | | | | | | [address] | | | | + + + + + + | Absolute | 1.27Comment: Testing | 1.00 - 3.90 | EXTERNAL | | | Lymphocytes | performed at [facility], [address] | K/uL | LAB | | | | [address], | | | | | | [place] [address] | | | | + + + + + + | Absolute | 0.74Comment: Testing | 0.00 - 0.80 | EXTERNAL | | | Monocytes | performed at [facility], [address] | K/uL | LAB | | | | [address], | | | | | | [place] [address] | | | | + + + + + + | Absolute | 0.34Comment: Testing | 0.00 - 0.50 | EXTERNAL | | | Eosinophils | performed at [facility], [address] | K/uL | LAB | | | | [address], | | | | | | [place] [address] | | | | + + + + + + | Absolute | 0.09Comment: Testing | 0.00 - 0.10 | EXTERNAL | | | Basophils | performed at [facility], [address] | K/uL | LAB | | | | [address], | | | | | | [place] [address] | | | | + + + [...] | | | | [place] [address] | | | | + + + + + + | K | 3.8Comment: Testing | 3.5 - 4.9 | EXTERNAL | | | | performed at [facility], [address] | mmol/L | LAB | | | | [address], | | | | | | [place] [address] | | | | + + + + + + | Cl | 104Comment: Testing | 99 - 109 mmol/L | EXTERNAL | | | | performed at [facility], [address] | | LAB | | | | [address], | | | | | | [place] [address] | | | | + + + + + + | CO2 | 27Comment: Testing | 23 - 32 mmol/L | EXTERNAL | | | | performed at [facility], [address] | | LAB | | | | [address], | | | | | | [place] [address] | | | | + + + + + + | Anion Gap | 11Comment: Testing | 5 - 20 mmol/L | EXTERNAL | | | | performed at [facility], [address] | | LAB | | | | [address], | | | | | | [place] [address] | | | | + + + + + + | Glucose, | 196 (H)Comment: Testing | 65 - 99 mg/dL | EXTERNAL | | | Fasting | performed at [facility], [address] | | LAB | | | | [address], | | | | | | [place] [address] | | | | + + + + + + | BUN | 5 (L)Comment: Testing | 8 - 25 mg/dL | EXTERNAL | | | | performed at [facility], [address] | | LAB | | | | [address], | | | | | | [place] [address] | | | | + + + + + + | Creatinine | 0.9Comment: Testing | 0.70 - 1.30 | EXTERNAL | | | | performed at [facility], [address] | mg/dL | LAB | | | | [address], | | | | | | [place] [address] | | | | + + + + + + | BUN/Creatin | 6Comment: Testing | | EXTERNAL | | | ine Ratio | performed at [facility], [address] | | LAB | | | | [address], | | | | | | [place] [address] | | | | + + + + + + | Calcium | 8.4 (L)Comment: Testing | 8.5 - 10.5 | EXTERNAL | | | | performed at [facility], [address] | mg/dL | LAB | | | | [address], | | | | | | [place] [address] | | | | + + + [...] | | | | | | at [facility], [address] | | | | | | [address], | | | | | | [place] [address] | | | | + + + [...] | | Fingerstick | performed at [facility];[address] | | LAB | | | | [address];[place] | | | | | | [address] | | | | + + + [...] | | Fingerstick | performed at [facility];8 | | LAB | | | | [address];[place] | | | | | | [address] | | | | + + + [...] | | | | performed at [facility] | | | | | | [facility];[place], [place] | | | | | | [address] | | | | + + + [...] | | Fingerstick | performed at [facility];[address] | | LAB | | | | [address];[place] | | | | | | [address] | | | | + + + [...] | | Fingerstick | performed at [facility];[address] | | LAB | | | | [address];[place], [place] | | | | | | [address] | | | | + + + [...] | | | [facility], [address] [facility] | | | | | | [place] | | | | | | [address] | | | | + + + + + + | RED CELL | 4.31Comment: Testing | 4.20 - 5.70 | EXTERNAL | | | COUNT | performed at [facility], [address] | M/uL | LAB | | | | [address], | | | | | | [place] [address] | | | | + + + + + + | Hgb | 12.3 (L)Comment: Testing | 13.2 - 17.0 | EXTERNAL | | | | performed at [facility], [address] | g/dL | LAB | | | | [address], | | | | | | [place] [address] | | | | + + + + + + | Hematocrit, | 36.4 (L)Comment: Testing | 39.0 - 50.0 % | EXTERNAL | | | POC | performed at [facility], [address] | | LAB | | | | [address], | | | | | | [place] [address] | | | | + + + + + + | MCV | 84.5Comment: Testing | 80.0 - 100.0 fl | EXTERNAL | | | | performed at [facility], [address] | | LAB | | | [address], | | | | | | [place] [address] | | | | + + + + + + | MCH | 28.5Comment: Testing | 27.0 - 34.0 pg | EXTERNAL | | | | performed at [facility], [address] | | LAB | | | | [address], | | | | | | [place] [address] | | | | + + + + + + | MCHC | 33.8Comment: Testing | 32.0 - 35.5 | EXTERNAL | | | | performed at [facility], [address] | g/dL | LAB | | | | [address], | | | | | | [place] [address] | | | | + + + + + + | RDW-CV | 42.9Comment: Testing | 37 - 53 fl | EXTERNAL | | | | performed at [facility], [address] | | LAB | | | | [address], | | | | | | [place] [address] | | | | + + + + + + | Platelet | 307Comment: Testing | 150 - 400 K/uL | EXTERNAL | | | Count | performed at [facility], [address] | | LAB | | | Plasma | [address], | | | | | | [place] [address] | | | | + + + + + + | MPV | 8.0Comment: Testing | fl | EXTERNAL | | | | performed at [facility], [address] | | LAB | | | | [address], | | | | | | [place] [address] | | | | + + + + + + | Differentia | AUTOMATEDComment: | | EXTERNAL | | | l Type | Testing performed at | | LAB | | | | [facility], [address] | | | | | | [place] | | | | | | [address] | | | | + + + + + + | % Segmented | 85.00Comment: Testing | % | EXTERNAL | | | | performed at [facility], [address] | | LAB | | | Neutrophils | [address], | | | | | | [place] [address] | | | | + + + + + + | % | 7.15Comment: Testing | % | EXTERNAL | | | Lymphocytes | performed at [facility], [address] | | LAB | | | | [address], | | | | | | [place] [address] | | | | + + + + + + | % Monocytes | 5.39Comment: Testing | % | EXTERNAL | | | | performed at [facility], [address] | | LAB | | | [address], | | | | | | [place] [address] | | | | + + + + + + | % | 1.86Comment: Testing | % | EXTERNAL | | | Eosinophils | performed at [facility], [address] | | LAB | | | [address], | | | | | | [place] [address] | | | | + + + + + + | % Basophils | 0.60Comment: Testing | % | EXTERNAL | | | | performed at [facility], [address] | | LAB | | | | [address], | | | | | | [place] [address] | | | | + + + + + + | Absolute | 13.51 (H)Comment: | 1.90 - 7.40 | EXTERNAL | | | Segmented | Testing performed at | K/uL | LAB | | | Neutrophils | [facility], [address] | | | | | | [place] | | | | | | [address] | | | | + + + + + + | Absolute | 1.14Comment: Testing | 1.00 - 3.90 | EXTERNAL | | | Lymphocytes | performed at [facility], [address] | K/uL | LAB | | | | [address], | | | | | | [place] [address] | | | | + + + + + + | Absolute | 0.86 (H)Comment: Testing | 0.00 - 0.80 | EXTERNAL | | | Monocytes | performed at [facility], [address] | [address]/uL | LAB | | | | [address], | | | | | | [place] [address] | | | | + + + + + + | Absolute | 0.30Comment: Testing | 0.00 - 0.50 | EXTERNAL | | | Eosinophils | performed at [facility], [address] | K[address]L | LAB | | | [address], | | | | | | [place] [address] | | | | + + + + + + | Absolute | 0.10Comment: Testing | 0.00 - 0.10 | EXTERNAL | | | Basophils | performed at [facility], [address] | K/[address]L | LAB | | | | [address], | | | | | | [place] [address] | | | | + + + [...] EXTERNAL | | | | performed at [facility], [address] | mmol/L | LAB | | | | [address], | | | | | | [place] [address] | | | | + + + + + + | K | 4.0Comment: Testing | 3.5 - 4.9 | EXTERNAL | | | | performed at [facility], [address] | mmol/L | LAB | | | | [address], | | | | | | [place] [address] | | | | + + + + + + | Cl | 103Comment: Testing | 99 - 109 mmol/L | EXTERNAL | | | | performed at [facility], [address] | | LAB | | | | [address], | | | | | | [place] [address] | | | | + + + + + + | CO2 | 24Comment: Testing | 23 - 32 mmol/L | EXTERNAL | | | | performed at [facility], [address] | | LAB | | | | [address], | | | | | | [place] [address] | | | | + + + + + + | Anion Gap | 14Comment: Testing | 5 - 20 mmol/L | EXTERNAL | | | | performed at [facility], [address] | | LAB | | | | [address], | | | | | | [place] [address] | | | | + + + + + + | Glucose, | 207 (H)Comment: Testing | 65 - 99 mg/dL | EXTERNAL | | | Fasting | performed at [facility], [address] | | LAB | | | | [address], | | | | | | [place] [address] | | | | + + + + + + | BUN | 7 (L)Comment: Testing | 8 - 25 mg/dL | EXTERNAL | | | | performed at [facility], [address] | | LAB | | | | [address], | | | | | | [place] [address] | | | | + + + + + + | Creatinine | 0.9Comment: Testing | 0.70 - 1.30 | EXTERNAL | | | | performed at [facility], [address] | mg/dL | LAB | | | | [address], | | | | | | [place] [address] | | | | + + + + + + | BUN/Creatin | 8Comment: Testing | | EXTERNAL | | | ine Ratio | performed at [facility], [address] | | LAB | | | | [address], | | | | | | [place] [address] | | | | + + + + + + | Calcium | 8.2 (L)Comment: Testing | 8.5 - 10.5 | EXTERNAL | | | | performed at [facility], [address] | mg/dL | LAB | | | | [address], | | | | | | [place] [address] | | | | + + + [...] W | | | | | | [address], | | | | | | [place] [address] | | | | + + + [...] | | Fingerstick | performed at [facility];[address] | | LAB | | | | [address];[place], [place] | | | | | | [address] | | | | + + + [...] with a red-brown discoloration of the bone. Spare [employer] Clerk | | | sections are submitted in cassette B1 and placed into decal prior to | | | processing. [facility] MICROSCOPIC EXAMINATION: A-B. Histologic | | | sections of all submitted blocks are examined by light microscopy. | | | These findings, together with the gross examination, support the | | | pathologic diagnosis. PERFORMING LABORATORY: Professional | | | interpretation and technical preparation was performed by [employer] [facility] | | | [facility], [address], | | | [place] [address] (Laboratory Director: Rafat Lorenzo M.D.; [facility]#: | | | [id number]). Diagnostician: Isi Gore MD Pathologist | | [...] | | Fingerstick | performed at [facility];[address] | | LAB | | | | [address];[place] | | | | | | [address] | | | | + + + [...] | | Fingerstick | performed at [facility];[address] | | LAB | | | | [address];[place], [place] | | | | | | [address] | | | | + + + [...] | | Fingerstick | performed at [facility];[address] | | LAB | | | | [address];[place] | | | | | | [address] | | | | + + + [...] | | | | performed at [facility];[address] | | LAB | | | | [address];[place] | | | | | | [address] | | | | + + + + + + | PCO2 ART | 32 (L)Comment: Testing | 35 - 45 mmHg | EXTERNAL | | | | performed at [facility];[address] | | LAB | | | | [address];[place] | | | | | | [address] | | | | + + + + + + | PO2 ART | 81Comment: Testing | 80 - 105 mmHg | EXTERNAL | | | | performed at [facility];[address] | | LAB | | | | [address];[place] | | | | | | [address] | | | | + + + + + + | Lactate, | <0.30 (L)Comment: | 0.36 - 1.25 | EXTERNAL | | | Arterial | Testing performed at | mmol/L | LAB | | | | C;[address] | | [address];[place] [address] | | | | + + + + + + | HCO3 ART | 19 (L)Comment: Testing | 22 - 26 mmol/L | EXTERNAL | | | | performed at [facility];[address] | | LAB | | | | [address];[place] | | | | | | [address] | | | | + + + + + + | POC | 20 (L)Comment: Testing | 23 - 27 mEq/L | EXTERNAL | | | APPEARANCE | performed at [facility];[address] | | LAB | | | UA | [address];[place] | | | | | | [address] | | | | + + + + + + | Base | 6 (H)Comment: Testing | 0.0 - 2.0 | EXTERNAL | | | deficit | performed at [facility];[address] | mmol/L | LAB | | | | [address];[place] | | | | | | [address] | | | | + + + + + + | O2 SAT ART | 96Comment: Testing | 95 - 98 % | EXTERNAL | | | | performed at [facility];[address] | | LAB | | | | [address];[place] | | | | | | [address] | | | | + + + + + + | FiO2, POC | 21Comment: Testing | % | EXTERNAL | | | | performed at [facility];[address] | | LAB | | | | [address];[place] | | | | | | [address] | | | | + + + [...] | | | | performed at [facility];[address] | mmol/L | LAB | | | | [address];[place], [place] | | | | | | [address] | | | | + + + [...] | | Fingerstick | performed at [facility];8 | | LAB | | | | [address];[place], [place] | | | | | | [address] | | | | + + + [...] EXTERNAL | | | | performed at [facility], [address] | | LAB | | | | [address], | | | | | | [place] [address] | | | | + + + + + + | Clarity | CLEARComment: Testing | | EXTERNAL | | | | performed at [facility], [address] | | LAB | | | | [address], | | | | | | [place] [address] | | | | + + + + + + | Specific | 1.022Comment: Testing | 1.002 - 1.030 | EXTERNAL | | | Sylvester | performed at [facility], [address] | | LAB | | | | [address], | | | | | | [place] [address] | | | | + + + + + + | Leukocyte | NEGATIVEComment: | | EXTERNAL | | | Esterase, | Testing performed at | | LAB | | | Urine | [facility], [address] | | | | | | [place] | | | | | | [address] | | | | + + + + + + | Nitrite, | NEGATIVEComment: Testing | | EXTERNAL | | | Urine | performed at [facility], [address] | | LAB | | | | [address], | | | | | | [place] [address] | | | | + + + + + + | Urobilinoge | NORMALComment: Testing | mg/dL | EXTERNAL | | | n, Urine | performed at [facility], [address] | | LAB | | | | [address], | | | | | | [place] [address] | | | | + + + + + + | Protein, | NEGATIVEComment: Testing | mg/dL | EXTERNAL | | | Urine | performed at [facility], [address] | | LAB | | | | [address], | | | | | | [place] [address] | | | | + + + + + + | pH, Urine | 6.0Comment: Testing | 5.0 - 8.0 | EXTERNAL | | | | performed at [facility], [address] | | LAB | | | | [address], | | | | | | [place] [address] | | | | + + + + + + | Blood, | NEGATIVEComment: Testing | | EXTERNAL | | | Urine | performed at [facility], [address] | | LAB | | | | [address], | | | | | | [place] [address] | | | | + + + + + + | Ketones | NEGATIVEComment: Testing | mg/dL | EXTERNAL | | | | performed at [facility], [address] | | LAB | | | | [address], | | | | | | [place] [address] | | | | + + + + + + | Bilirubin, | NEGATIVEComment: Testing | | EXTERNAL | | | Urine | performed at [facility], [address] | | LAB | | | | [address], | | | | | | [place] [address] | | | | + + + + + + | Glucose, | >500 (A)Comment: Testing | mg/dL | EXTERNAL | | | Urine | performed at [facility], [address] | | LAB | | | | [address], | | | | | | [place] [address] | | | | + + + [...] | | LAB | | | | [facility];[address] | [address];[place] [address] | | | | + + + + + + | PCO2 ART | 56 (H)Comment: Testing | 35 - 45 mmHg | EXTERNAL | | | | performed at [facility];[address] | | LAB | | | | [address];[place] | | | | | | [address] | | | | + + + + + + | PO2 ART | 74 (L)Comment: Testing | 80 - 105 mmHg | EXTERNAL | | | | performed at [facility];[address] | | LAB | | | | [address];[place] | | | | | | [address] | | | | + + + + + + | Lactate, | 7.11 (H)Comment: Testing | 0.36 - 1.25 | EXTERNAL | | | Arterial | performed at [facility];[address] | mmol/L | LAB | | | | [address];[place] | | | | | | [address] | | | | + + + + + + | HCO3 ART | 9 (L)Comment: Testing | 22 - 26 mmol/L | EXTERNAL | | | | performed at [facility];[address] | | LAB | | | | [address];[place] | | | | | | [address] | | | | + + + + + + | POC | 11 (L)Comment: Testing | 23 - 27 mEq/L | EXTERNAL | | | APPEARANCE | performed at [facility];[address] | | LAB | | | [address]A | [address];[place] | | | | | | [address] | | | | + + + + + + | Base | 25 (H)Comment: Testing | 0.0 - 2.0 | EXTERNAL | | | deficit | performed at [facility];[address] | mmol/L | LAB | | | | [address];[place] [place] | | | | | | [address] | | | | + + + + + + | O2 SAT ART | 77 (L)Comment: Testing | 95 - 98 % | EXTERNAL | | | | performed at [facility];[address] | | LAB | | | | [address];[place] | | | | | | [address] | | | | + + + + + + | FiO2, POC | 100Comment: Testing | % | EXTERNAL | | | | performed at [facility];[address] | | LAB | | | | [address];[place] | | | | | | [address] | | | | + + + [...] [place] | | | | | | [address] | | | | + + + + + + | RED CELL | 4.04 (L)Comment: Testing | 4.20 - 5.70 | EXTERNAL | | | COUNT | performed at [facility], [address] | M/uL | LAB | | | | [address], | | | | | | [place] [address] | | | | + + + + + + | Hgb | 11.4 (L)Comment: Testing | 13.2 - 17.0 | EXTERNAL | | | | performed at [facility], [address] | g/dL | LAB | | | | [address], | | | | | | [place] [address] | | | | + + + + + + | Hematocrit, | 35.1 (L)Comment: Testing | 39.0 - 50.0 % | EXTERNAL | | | POC | performed at [facility], [address] | | LAB | | | | [address], | | | | | | [place] [address] | | | | + + + + + + | MCV | 86.7Comment: Testing | 80.0 - 100.0 fl | EXTERNAL | | | | performed at [facility], [address] | | LAB | | | | [address], | | | | | | [place] [address] | | | | + + + + + + | MCH | 28.2Comment: Testing | 27.0 - 34.0 pg | EXTERNAL | | | | performed at [facility], [address] | | LAB | | | [address], | | | | | | [place] [address] | | | | + + + + + + | MCHC | 32.5Comment: Testing | 32.0 - 35.5 | EXTERNAL | | | | performed at [facility], [address] | g/dL | LAB | | | | [address], | | | | | | [place] [address] | | | | + + + + + + | RDW-CV | 42.0Comment: Testing | 37 - 53 fl | EXTERNAL | | | | performed at [facility], [address] | | LAB | | | | [address], | | | | | | [place] [address] | | | | + + + + + + | Platelet | 262Comment: Testing | 150 - 400 K/uL | EXTERNAL | | | Count | performed at [facility], [address] | | LAB | | | Plasma | [address], | | | | | | [place] [address] | | | | + + + + + + | MPV | 8.4Comment: Testing | fl | EXTERNAL | | | | performed at [facility], [address] | | LAB | | | | [address], | | | | | | [place] [address] | | | | + + + + + + | Differentia | AUTOMATEDComment: | | EXTERNAL | | | l Type | Testing performed at | | LAB | | | | [facility], [address] | | | | | | [place] | | | | | | [address] | | | | + + + + + + | % Segmented | 82.60Comment: Testing | % | EXTERNAL | | | | performed at [facility], [address] | | LAB | | | Neutrophils | [address], | | | | | | [place] [address] | | | | + + + + + + | % | 7.47Comment: Testing | % | EXTERNAL | | | Lymphocytes | performed at [facility], [address] | | LAB | | | | [address], | | | | | | [place] [address] | | | | + + + + + + | % Monocytes | 6.29Comment: Testing | % | EXTERNAL | | | | performed at [facility], [address] | | LAB | | | | [address], | | | | | | [place] [address] | | | | + + + + + + | % | 3.29Comment: Testing | % | EXTERNAL | | | Eosinophils | performed at [facility], [address] | | LAB | | | | [address], | | | | | | [place] [address] | | | | + + + + + + | % Basophils | 0.35Comment: Testing | % | EXTERNAL | | | | performed at [facility], [address] | | LAB | | | | [address], | | | | | | [place] [address] | | | | + + + + + + | Absolute | 13.94 (H)Comment: | 1.90 - 7.40 | EXTERNAL | | | Segmented | Testing performed at | K/uL | LAB | | | Neutrophils | [facility], [address] | | | | | | [place] | | | | | | [address] | | | | + + + + + + | Absolute | 1.26Comment: Testing | 1.00 - 3.90 | EXTERNAL | | | Lymphocytes | performed at [facility], [address] | K/uL | LAB | | | | [address], | | | | | | [place] [address] | | | | + + + + + + | Absolute | 1.06 (H)Comment: Testing | 0.00 - 0.80 | EXTERNAL | | | Monocytes | performed at [facility], [address] | K/uL | LAB | | | | [address], | | | | | | [place] [address] | | | | + + + + + + | Absolute | 0.56 (H)Comment: Testing | 0.00 - 0.50 | EXTERNAL | | | Eosinophils | performed at [facility], [address] | K/uL | LAB | | | | [address], | | | | | | [place] [address] | | | | + + + + + + | Absolute | 0.06Comment: Testing | 0.00 - 0.10 | EXTERNAL | | | Basophils | performed at [facility], [address] | K/uL | LAB | | | | [address], | | | | | | [place] [address] | | | | + + + [...] EXTERNAL | | | | performed at [facility], [address] | | LAB | | | | [address], | | | | | | [place] [address] | | | | + + + [...] EXTERNAL | | | | performed at [facility], [address] | | LAB | | | | [address], | | | | | | [place] [address] | | | | + + + [...] | EXTERNAL | | | A1c | [facility] [facility] | | LAB | | | [...] | | | | | performed at [facility], [address] | | | | | | [address] [facility], | | | | | | [place] [address] | | | | + + + [...] | | | | | performed at [facility], [address] | | | | | | [facility], | | | | | | [place] [address] | | | | + + + [...] | | | | [place] [address] | | | | + + + + + + | K | 4.6Comment: Testing | 3.5 - 4.9 | EXTERNAL | | | | performed at [facility], [address] | mmol/L | LAB | | | | [address], | | | | | | [place] [address] | | | | + + + + + + | Cl | 103Comment: Testing | 99 - 109 mmol/L | EXTERNAL | | | | performed at [facility], [address] | | LAB | | | | [address], | | | | | | [place] [address] | | | | + + + + + + | CO2 | 22 (L)Comment: Testing | 23 - 32 mmol/L | EXTERNAL | | | | performed at [facility], [address] | | LAB | | | | [address], | | | | | | [place] [address] | | | | + + + + + + | Anion Gap | 14Comment: Testing | 5 - 20 mmol/L | EXTERNAL | | | | performed at [facility], [address] | | LAB | | | | [address], | | | | | | [place] [address] | | | | + + + + + + | Glucose, | 392 (H)Comment: Testing | 65 - 99 mg/dL | EXTERNAL | | | Fasting | performed at [facility], [address] | | LAB | | | | [address], | | | | | | [place] [address] | | | | + + + + + + | BUN | 12Comment: Testing | 8 - 25 mg/dL | EXTERNAL | | | | performed at [facility], [address] | | LAB | | | | [address], | | | | | | [place] [address] | | | | + + + + + + | Creatinine | 1.0Comment: Testing | 0.70 - 1.30 | EXTERNAL | | | | performed at [facility], [address] | mg/dL | LAB | | | | [address], | | | | | | [place] [address] | | | | + + + + + + | BUN/Creatin | 12Comment: Testing | | EXTERNAL | | | ine Ratio | performed at [facility], [address] | | LAB | | | | [address], | | | | | | [place] [address] | | | | + + + + + + | Calcium | 7.6 (L)Comment: Testing | 8.5 - 10.5 | EXTERNAL | | | | performed at [facility], [address] | mg/dL | LAB | | | | [address], | | | | | | [place] [address] | | | | + + + + + + | Protein, | 6.4Comment: Testing | 6.3 - 8.2 g/dL | EXTERNAL | | | Total | performed at [facility], [address] | | LAB | | | | [address], | | | | | | [place] [address] | | | | + + + + + + | Albumin | 2.2 (L)Comment: Testing | 3.6 - 5.0 g/dL | EXTERNAL | | | | performed at [facility], [address] | | LAB | | | | [address], | | | | | | [place] [address] | | | | + + + + + + | Globulin | 4.2Comment: Testing | 1.3 - 4.9 g/dL | EXTERNAL | | | | performed at [facility], [address] | | LAB | | | | [address], | | | | | | [place] [address] | | | | + + + + + + | A/G Ratio | 0.5 (L)Comment: Testing | 1.0 - 2.4 | EXTERNAL | | | | performed at [facility], [address] | | LAB | | | | [address], | | | | | | [place] [address] | | | | + + + + + + | Bilirubin | 0.6Comment: Testing | 0.1 - 1.5 mg/dL | EXTERNAL | | | Total | performed at [facility], [address] | | LAB | | | | [address], | | | | | | [place] [address] | | | | + + + + + + | ALP, | 182 (H)Comment: Testing | 35 - 115 U/L | EXTERNAL | | | External | performed at [facility], [address] | | LAB | | | | [address], | | | | | | [place] [address] | | | | + + + + + + | AST | 9 (L)Comment: Testing | 10 - 45 U/L | EXTERNAL | | | | performed at [facility], [address] | | LAB | | | | [address], | | | | | | [place] [address] | | | | + + + + + + | ALT | 16Comment: Testing | 10 - 65 U/L | EXTERNAL | | | | performed at [facility], [address] | | LAB | | | | [address], | | | | | | [place] [address] | | | | + + + [...] | | | | | | at [facility], [address] | | | | | | [address], | | | | | | [place] [address] | | | | + + + [...] | | Fingerstick | performed at [facility];[address] | | LAB | | | | [address];[place], [place] | | | | | | [address] | | | | + + + [...] EXTERNAL LAB | | Testing performed at [facility];[address] [place] [address];[place] [address] MRSA PCR | | | POSITIVE for MRSA by PCRAbnormal | | | Testing performed at [address];[place] [address] | | + + + + +---------+ [...] | | Fingerstick | performed at [facility];8 | | LAB | | | | [address];[place] | | | | | | [address] | | | | + + + [...] | | | | performed at [facility];[address] | mmol/L | LAB | | | | [address];[place] | | | | | | [address] | | | | + + + + + + | K | 4.0Comment: Testing | 3.5 - 4.9 | EXTERNAL | | | | performed at [facility];[address] | mmol/L | LAB | | | | [address];[place] | | | | | | [address] | | | | + + + + + + | Cl | 104Comment: Testing | 99 - 109 mmol/L | EXTERNAL | | | | performed at [facility];[address] | | LAB | | | | [address];[place] | | | | | | [address] | | | | + + + + + + | CO2 | 21 (L)Comment: Testing | 23 - 32 mmol/L | EXTERNAL | | | | performed at [facility];[address] | | LAB | | | | [address];[place] | | | | | | [address] | | | | + + + + + + | Anion Gap | 13Comment: Testing | 5 - 20 mmol/L | EXTERNAL | | | | performed at [facility];[address] | | LAB | | | | [address];[place] | | | | | | [address] | | | | + + + + + + | Glucose, | 254 (H)Comment: Testing | 65 - 99 mg/dL | EXTERNAL | | | Fasting | performed at [facility];[address] | | LAB | | | | [address];[place] | | | | | | [address] | | | | + + + + + + | BUN | 12Comment: Testing | 8 - 25 mg/dL | EXTERNAL | | | | performed at [facility];[address] | | LAB | | | | [address];[place] | | | | | | [address] | | | | + + + + + + | Creatinine | 0.95Comment: Testing | 0.70 - 1.30 | EXTERNAL | | | | performed at [facility];[address] | mg/dL | LAB | | | | [address];[place] | | | | | | [address] | | | | + + + + + + | BUN/Creatin | 13Comment: Testing | | EXTERNAL | | | ine Ratio | performed at [facility];[address] | | LAB | | | | [address];[place] | | | | | | [address] | | | | + + + + + + | Calcium | 6.9 (L)Comment: Testing | 8.5 - 10.5 | EXTERNAL | | | | performed at [facility];[address] | mg/dL | LAB | | | | [address];[place] | | | | | | [address] | | | | + + + + + + | Protein, | 6.3Comment: Testing | 6.3 - 8.2 g/dL | EXTERNAL | | | Total | performed at [facility];[address] | | LAB | | | | [address];[place] | | | | | | [address] | | | | + + + + + + | Albumin | 2.1 (L)Comment: Testing | 3.6 - 5.0 g/dL | EXTERNAL | | | | performed at [facility];[address] | | LAB | | | | [address];[place] | | | | | | [address] | | | | + + + + + + | Globulin | 4.2Comment: Testing | 1.3 - 4.9 g/dL | EXTERNAL | | | | performed at [facility];[address] | | LAB | | | | [address];[place] | | | | | | [address] | | | | + + + + + + | A/G Ratio | 0.5 (L)Comment: Testing | 1.0 - 2.4 | EXTERNAL | | | | performed at [facility];[address] | | LAB | | | | [address];[place] | | | | | | [address] | | | | + + + + + + | Bilirubin | 0.4Comment: Testing | 0.1 - 1.5 mg/dL | EXTERNAL | | | Total | performed at [facility];[address] | | LAB | | | | [address];[place] | | | | | | [address] | | | | + + + + + + | ALP, | 181 (H)Comment: Testing | 35 - 115 U/L | EXTERNAL | | | External | performed at [facility];[address] | | LAB | | | | [address];[place] | | | | | | [address] | | | | + + + + + + | AST | 10Comment: Testing | 10 - 45 U/L | EXTERNAL | | | | performed at [facility];[address] | | LAB | | | | [address];[place] | | | | | | [address] | | | | + + + + + + | ALT | 14Comment: Testing | 10 - 65 U/L | EXTERNAL | | | | performed at [facility];[address] | | LAB | | | | [address];[place] | | | | | | [address] | | | | + + + [...] | | | | | | at [facility];[address];[place] [address] | | | | + + + [...] 9:30AM Referring Provider Line: | | | [phone] ID: [id number] | | + + + [...] | | 2016 9:30AM Referring Provider Line: [phone] ID: [id number] | + + POC Glucose [...] | | Fingerstick | performed at [facility];[address] | | LAB | | | | [address];[place], [place] | | | | | | [address] | | | | + + + [...] | | | | performed at [facility];[address] | mmol/L | LAB | | | | [address];[place], [place] | | | | | | [address] | | | | + + + [...] | | | Blood | performed at [facility];[address] | | LAB | | | | [address];[place], [place] | | | | | | [address] | | | | + + + [...] | | | | performed at [facility] | | LAB | | | | [address];[place] | | | | | | [address] | | | | + + + [...] K/uL | LAB | | | | [facility];[address];[place] [address] | | | | + + + + + + | RED CELL | 4.20Comment: Testing | 4.20 - 5.70 | EXTERNAL | | | COUNT | performed at [facility];[address] | M/uL | LAB | | | | [address];[place] | | | | | | [address] | | | | + + + + + + | Hgb | 12.4 (L)Comment: Testing | 13.2 - 17.0 | EXTERNAL | | | | performed at [facility];[address] | g/dL | LAB | | | | [address];[place] | | | | | | [address] | | | | + + + + + + | Hematocrit, | 36.3 (L)Comment: Testing | 39.0 - 50.0 % | EXTERNAL | | | POC | performed at [facility];[address] | | LAB | | | | [address];[place] | | | | | | [address] | | | | + + + + + + | MCV | 86.5Comment: Testing | 80.0 - 100.0 fl | EXTERNAL | | | | performed at [facility];[address] | | LAB | | | | [address];[place] | | | | | | [address] | | | | + + + + + + | MCH | 29.4Comment: Testing | 27.0 - 34.0 pg | EXTERNAL | | | | performed at [facility];[address] | | LAB | | | | [address];[place] | | | | | | [address] | | | | + + + + + + | MCHC | 34.0Comment: Testing | 32.0 - 35.5 | EXTERNAL | | | | performed at [facility];[address] | g/dL | LAB | | | | [address];[place] | | | | | | [address] | | | | + + + + + + | RDW-CV | 42.9Comment: Testing | 37 - 53 fl | EXTERNAL | | | | performed at [facility];[address] | | LAB | | | | [address];[place] | | | | | | [address] | | | | + + + + + + | Platelet | 258Comment: Testing | 150 - 400 K/uL | EXTERNAL | | | Count | performed at [facility];[address] | | LAB | | | Plasma | [address];[place] | | | | | | [address] | | | | + + + + + + | MPV | 8.3Comment: Testing | fl | EXTERNAL | | | | performed at [facility];[address] | | LAB | | | | [address];[place] | | | | | | [address] | | | | + + + + + + | Differentia | AUTOMATEDComment: | | EXTERNAL | | | l Type | Testing performed at | | LAB | | | | [facility];[address];[place] [address] | | | | + + + + + + | % Segmented | 87.43Comment: Testing | % | EXTERNAL | | | | performed at [facility];[address] | | LAB | | | Neutrophils | [address];[place] | | | | | | [address] | | | | + + + + + + | % | 5.56Comment: Testing | % | EXTERNAL | | | Lymphocytes | performed at [facility];[address] | | LAB | | | | [address];[place] | | | | | | [address] | | | | + + + + + + | % Monocytes | 4.36Comment: Testing | % | EXTERNAL | | | | performed at [facility];[address] | | LAB | | | | [address];[place] | | | | | | [address] | | | | + + + + + + | % | 1.84Comment: Testing | % | EXTERNAL | | | Eosinophils | performed at [facility];[address] | | LAB | | | | [address];[place] | | | | | | [address] | | | | + + + + + + | % Basophils | 0.81Comment: Testing | % | EXTERNAL | | | | performed at [facility];[address] | | LAB | | | | [address];[place] | | | | | | [address] | | | | + + + + + + | Absolute | 17.02 (H)Comment: | 1.90 - 7.40 | EXTERNAL | | | Segmented | Testing performed at | K/uL | LAB | | | Neutrophils | [facility];[address];[place] [address] | | | | + + + + + + | Absolute | 1.08Comment: Testing | 1.00 - 3.90 | EXTERNAL | | | Lymphocytes | performed at [facility];[address] | K/uL | LAB | | | | [address];[place] | | | | | | [address] | | | | + + + + + + | Absolute | 0.85 (H)Comment: Testing | 0.00 - 0.80 | EXTERNAL | | | Monocytes | performed at [facility];[address] | K/uL | LAB | | | | [address];[place] | | | | | | [address] | | | | + + + + + + | Absolute | 0.36Comment: Testing | 0.00 - 0.50 | EXTERNAL | | | Eosinophils | performed at [facility];[address] | K/uL | LAB | | | | [address];[place] | | | | | | [address] | | | | + + + + + + | Absolute | 0.16 (H)Comment: Testing | 0.00 - 0.10 | EXTERNAL | | | Basophils | performed at [facility];[address] | K/uL | LAB | | | | [address];[place] | | | | | | [address] | | | | + + + + + + | RBC | RBC AND PLT MORPHOLOGY | | EXTERNAL | | | Morphology | APPEAR NORMALComment: | | LAB | | | | Testing performed at | | | | | | [facility];[address];[place] [address] | | | | + + + + + + | Platelet | ADEQUATEComment: Testing | | EXTERNAL | | | Estimate | performed at [facility];[address] | | LAB | | | | [address];[place] | | | | | | [address] | | | | + + + + + + | Differentia | SLIDE SCANNED, AGREES | | EXTERNAL | | | l Comments | WITH AUTOMATED | | LAB | | | | RESULTS.Comment: Testing | | | | | | performed at [facility];[address] | | | | | | [address];[place], [place] | | | | | | [address] | | | | + + + [...] | | | | performed at [facility] | | LAB | | | | [address];[place], [place] | | | | | | [address] | | | | + + + [...] | | | | performed at [facility];[address] | mmol/L | LAB | | | | [address];[place] | | | | | | [address] | | | | + + + + + + | K | 5.1 (H)Comment: MODERATE | 3.5 - 4.9 | EXTERNAL | | | | HEMOLYSISTesting | mmol/L | LAB | | | | performed at [facility];[address] | | | | | | [address];[place] | | | | | | [address] | | | | + + + + + + | Cl | 93 (L)Comment: Testing | 99 - 109 mmol/L | EXTERNAL | | | | performed at [facility];[address] | | LAB | | | | [address];[place] | | | | | | [address] | | | | + + + + + + | CO2 | 23Comment: Testing | 23 - 32 mmol/L | EXTERNAL | | | | performed at [facility];[address] | | LAB | | | | [address];[place] | | | | | | [address] | | | | + + + + + + | Anion Gap | 14Comment: Testing | 5 - 20 mmol/L | EXTERNAL | | | | performed at [facility];[address] | | LAB | | | | [address];[place] | | | | | | [address] | | | | + + + + + + | Glucose, | 635 (HH)Comment: CALLED | 65 - 99 mg/dL | EXTERNAL | | | Fasting | DR LING COUCH | | LAB | | | | AT 2216 BY RHREAD BACK | | | | | | RESULTS VERIFIEDTesting | | | | | | performed at [facility];[address] | | | | | | [address];[place] | | | | | | [address] | | | | + + + + + + | BUN | 13Comment: Testing | 8 - 25 mg/dL | EXTERNAL | | | | performed at [facility];[address] | | LAB | | | | [address];[place] | | | | | | [address] | | | | + + + + + + | Creatinine | 1.4 (H)Comment: Testing | 0.70 - 1.30 | EXTERNAL | | | | performed at [facility];[address] | mg/dL | LAB | | | | [address];[place] | | | | | | [address] | | | | + + + + + + | BUN/Creatin | 10Comment: Testing | | EXTERNAL | | | ine Ratio | performed at [facility];[address] | | LAB | | | | [address];[place] | | | | | | [address] | | | | + + + + + + | Calcium | 7.9 (L)Comment: Testing | 8.5 - 10.5 | EXTERNAL | | | | performed at [facility];[address] | mg/dL | LAB | | | | [address];[place] | | | | | | [address] | | | | + + + + + + | Protein, | 7.7Comment: Testing | 6.3 - 8.2 g/dL | EXTERNAL | | | Total | performed at [facility];[address] | | LAB | | | | [address];[place] | | | | | | [address] | | | | + + + + + + | Albumin | 2.6 (L)Comment: Testing | 3.6 - 5.0 g/dL | EXTERNAL | | | | performed at [facility];[address] | | LAB | | | | [address];[place] | | | | | | [address] | | | | + + + + + + | Globulin | 5.1 (H)Comment: Testing | 1.3 - 4.9 g/dL | EXTERNAL | | | | performed at [facility];[address] | | LAB | | | | [address];[place] | | | | | | [address] | | | | + + + + + + | A/G Ratio | 0.5 (L)Comment: Testing | 1.0 - 2.4 | EXTERNAL | | | | performed at [facility];[address] | | LAB | | | | [address];[place] | | | | | | [address] | | | | + + + + + + | Bilirubin | 0.6Comment: Testing | 0.1 - 1.5 mg/dL | EXTERNAL | | | Total | performed at [facility];[address] | | LAB | | | | [address];[place] | | | | | | [address] | | | | + + + + + + | ALP, | 259 (H)Comment: Testing | 35 - 115 U/L | EXTERNAL | | | External | performed at [facility];[address] | | LAB | | | | [address];[place] | | | | | | [address] | | | | + + + + + + | AST | 17Comment: MODERATE | 10 - 45 U/L | EXTERNAL | | | | HEMOLYSISTesting | | LAB | | | | performed at [facility];[address] | | | | | | [address];[place] | | | | | | [address] | | | | + + + + + + | ALT | 17Comment: Testing | 10 - 65 U/L | EXTERNAL | | | | performed at [facility];[address] | | LAB | | | | [address];[place] | | | | | | [address] | | | | + + + [...] | | | | | | at [facility];[address] [facility] | | | | | | [facility];[place] [address] | | | | + + + [...] 2 diabetes mellitus with hyperglycemia, unspecified terminal makeup operator | | 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
--- OUTSIDE RECORDS SUMMARY | ~2019-09-25 | XMS | Encounter Summary ---
Demographics + + + | Address | [address] | | | [place] [address] | + + + | Home Phone [...] Team Providers + +------+ + | Care [employer] Commissioner Name | Role | Phone | + +------+ + PCP | Unavailable | + +------+ + Encounter Details +--------+ + + + + | Date | Type | Department | Care Team | Description | +--------+ + + + + | 07/19/ | Hospital | [facility] | | | | 1992 | Encounter | [facility] | | | | | | [address] | | | | | | [place] | | | | | | [address] | | | | | | [phone] | | | +--------+ + + + [...]
--- OUTSIDE RECORDS SUMMARY | ~2019-09-25 | XMS | Encounter Summary ---
Demographics + + + | Address | [address] | | | [place] [address] | + + + | Home Phone [...] Team Providers + +------+ + | Care Athletic Coach Name | Role | Phone | + +------+ + | Estrella Light PA-C | PCP | | + +------+ + Encounter Details +--------+ + + + + | Date | Type | Department | Care Team | Description | +--------+ + + + + | 09/22/ | Anesthesia | [facility] | Ilya Dodge | | | 2015 | Event | MED CTR MP INTRA OP | MD Ebonie [address] | | | | | [address] | [facility] | | | | | [place] | [place] [address] | | | | | [address] | [phone] | | | | | [phone] | | | +--------+ + + + [...]
--- OUTSIDE RECORDS SUMMARY | ~2019-09-25 | XMS | Encounter Summary ---
Demographics + + + | Address | [address] | | | [place] [address] | + + + | Home Phone [...] Team Providers + +------+ + | Care Bearing Machine Operator Name | Role | Phone | + +------+ + | Estrella Light PA-C | PCP | | + +------+ + Encounter Details +--------+---------+ + + + | Date | Type | Department | Care Team | Description | +--------+---------+ + + + | 04/12/ | Surgery | [facility] | Avi Forde MD | EGD / COLONOSCOPY - | | 2015 | | MED CTR MP INTRA OP | [address], [place] | DM (insulin) | | | | [address] | [address] [place] | | | | | [place] | [id number] | | | | | [address] | | | | | | [phone] | | | +--------+---------+ + + + [...]
--- OUTSIDE RECORDS SUMMARY | ~2019-09-25 | XMS | Encounter Summary ---
Demographics + + + | Address | [address] | | | [place] [address] | + + + | Home Phone [...] Team Providers + +------+ + | Care President Celebrity Acquistion Name | Role | Phone | + +------+ + | Estrella Light PA-C | PCP | | + +------+ + Encounter Details +--------+ + + + + | Date | Type | Department | Care Team | Description | +--------+ + + + + | 09/04/ | Abstract | [facility] | Avi Forde MD | | | 2014 | | GASTROENTEROLOGY | [address], [place] | | | | | [address] [place] | [address] [place] | | | | | [address] [place], [place] | [address] | | | | | [address] | | | | | | [phone] | | | +--------+ + + + [...]
--- OUTSIDE RECORDS SUMMARY | ~2019-09-25 | XMS | Clinical Summary ---
Demographics + + + | Address | [address] [place] [address] RD | | | [place] [address] | + + + | Home Phone [...] Author + + + | Author | [facility] code-laboration (Historical as of | | | 05-18-19) | + + + | Organization | [facility] code-laboration (Historical as of | | | 05-18-19) [...] Team Providers + +------+ + | Care Cotton Jammer Name | Role | Phone | + [...] limited to breakdown of skin ([facility]) | 01/13/2018 | + + + | Cellulitis and abscess of foot | 12/15/2016 | + + + | Osteomyelitis ([facility]) | 12/15/2016 | + + + | Essential hypertension | 03/04/2015 | + + + | Type 2 diabetes mellitus, with long-term current use of insulin | 03/04/2015 | | ([facility]) | | + + + [...] +------+-------+ + | MEDICAID | [place] | [id number] | | | [address] | | | N | | | | [place], [place] | | | [place] | | | | [address] | | | DIRECTOR OPERATIONS BROADCAST | | | | | + +--------+ +------+-------+ + | [facility] | YELLOW | [id number] | | | | | PLANS | [...] | Self | [birth year] | Home: | [address] | | | al/Fam | | 1965 | [phone]- | [place], [place] | | | vikas | | | [address] | [address] | + +--------+ +--------+ + + | [employer] | Third | Self | [birth year] | Home: | [address] | | | Green Party | | 1964 | [phone] | [place], [place] | | | Liabil | | | [phone] | [phone] | | | ity | | | | | + +--------+ +--------+ + +
--- OUTSIDE RECORDS SUMMARY | ~2019-09-25 | XMS | Encounter Summary ---
Demographics + + + | Address | [address] | | | [place] [address] | + + + | Home Phone [...] Providers + +------+ + | Care Sales Stock Associate Name | Role | Phone | [...] + + | 04/12/ | Telephone | [facility] | Avi Forde MD | Hosp No Show | | 2015 | | GASTROENTEROLOGY | [address], [place] | (egds,colon) | | | | [address] [place] | [address] [place] | | | | | [address] [place], [place] | [address] | | | | | [address] | | | | | | [phone] | | | +--------+ + + + [...]
--- OUTSIDE RECORDS SUMMARY | ~2019-09-25 | XMS | Encounter Summary ---
Demographics + + + | Address | [address] | | | [place] [address] | + + + | Home Phone [...] Team Providers + +------+ + | Care Respiratory Supervisor Name | Role | Phone | + +------+ + PCP | Unavailable | + +------+ + Encounter Details +--------+ + + + + | Date | Type | Department | Care Team | Description | +--------+ + + + + | 05/21/ | Hospital | [facility] | Unknown, | | | 1992 | Encounter | MED CTR XRAY [address] | [place] | | | | | [place] | [phone] | | | | | [place] [address] | | | | | | [phone] | | | +--------+ + + + [...]
--- OUTSIDE RECORDS SUMMARY | ~2019-09-25 | XMS | Encounter Summary ---
Demographics + + + | Address | [address] | | | [place] [address] | + + + | Home Phone [...] Team Providers + +------+ + | Care Pmp Name | Role | Phone | + +------+ + | Estrella Light PA-C | PCP | | + +------+ + Encounter Details +--------+ + + + + | Date | Type | Department | Care Team | Description | +--------+ + + + + | 01/13/ | Hospital | [facility] | Cameron Lopez | | | 2018 - | Encounter | [facility] | MD Antolin Hill | | | | | CLINICAL DECISION | [place], [place] | | | 01/14/ | | UNIT [facility] [address] [facility] | [address] | | | 2017 | | [place], [place] | | | | | | [address] | | | | | | [phone] | | | +--------+ + + + [...] by Abhinav Winters DO at 01/14/18899 Author: Abhniav Winters DO Service: Hospitalist Author Type: Physician Filed: 01/14/181931 Date of Service: 01/14/18899 Status: Signed Patch Worker: Abhinav Winters DO (Physician) The patient is 52 y.o. 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, presented to the emergency department of [facility] in [place] today with complaints of upper, sharp chest [...] not smoke. In the emergency department at [facility], EKG showed T inversions in lead III [...] Date of Service: 04/15/18 0900 Status: Signed Patch Worker: Elizabeth Galvez, RN (Registered Nurse) Approached by [...] 01/13/181399 Date of Service: 01/13/181399 Status: Signed Patch Worker: Rosalba Luo RPH (Pharmacist) Clinical Pharmacy Note: [...] | | | Basophils | performed at [facility], [address] | K/uL | LAB | | | | [place], | | | | | | [place] [address] | | | | + + + [...] | | | | [place] [address] | | | | + + + [...] EXTERNAL | | | | performed at [facility], [address] | | LAB | | | | [place], | | | | | | [place] [address] | | | | + + + [...] EXTERNAL | | | | performed at [facility], [address] | | LAB | | | | [place], | | | | | | [place] [address] | | | | + + + [...] | EXTERNAL | | | A1c | [place] Diabetes | | LAB | | | [...] | | | | | performed at [facility], [address] | | | | | | [facility], | | | | | | [place] [address] | | | | + + + [...] | | | Cholesterol | performed at [facility], [address] | | LAB | | | , | [place], | | | | | Calculated, | [place] [address] | | | | | External | [...] | | | | | | at [facility], [address] | | | | | | [place], | | | | | | [place] [address] | | | | + + + [...] | | | Fingerstick | performed at [facility] [place];[address] | | LAB | | | | [address];[place], [place] | | | | | | [address] | | | | + + + [...] + + | Historically converted procedure from [facility] Epic environment | EXTERNAL LAB | [...] EXTERNAL | | | | performed at [facility] [place];[address] | | LAB | | | | [address];[place], [place] | | | | | | [address] | | | | + + + [...] | | | Fingerstick | performed at [facility] [place];[address] | | LAB | | | | [address];[place], [place] | | | | | | [address] | | | | + + + [...] | | | | | | ACUTE HI Testing | | | | | | performed at [facility] [place];[address] | | | | | | [address] [facility];[place], [place] | | | | | | [address] | | | | + + + [...] EXTERNAL | | | | performed at [facility] [place];[address] | | LAB | | | | [address];[place] | | | | | | [address] | | | | + + + [...] | | | Fingerstick | performed at [facility] [place];[address] | | LAB | | | | [address];[place] | | | | | | [address] | | | | + + + [...] | | | Fingerstick | performed at [facility] [place];[address] | | LAB | | | | [address];[place] | | | | | | [address] | | | | + + + [...] | | | | | | ACUTE HI Testing | | | | | | performed at [facility] [place];[facility] | | | | | | [address] [facility];[place], [place] | | | | | | [address] | | | | + + + [...] EXTERNAL | | | | performed at [facility] [place];[address] | | LAB | | | | [address];[place], [place] | | | | | | [address] | | | | + + + [...] TV A Star: 0.46 m/s TV Dec Adair: 2.14 m/s2 TV Dec Time: | | | 223.61 ms TV E Star: 0.47 m/s TV E/A Ratio: 1.03 | | | Long Filler Cigar Roller Machine: DIDI Authenticated by: Dereck Galicia Report | [...] (A-L): | | 16.36 ml/m2LAAs A2C: 13.19 pt0IKHTJ A-L A2C: 34.91 mlLALs A2C: 4.23 cmLAAs A4C: | | 11.37 [id number] A-L A4C: 29.21 mlLALs A4C: 3.75 cmRAAd: 13.57 qw0MHTRC A-L: | | 35.22 mlRAEDV MOD: 30.46 mlRALd: 4.44 cmTAPSE: 1.67 cmHR: 82.18 BPMAV maxPG: | | 3.19 mmHgAV meanP.99 mmHgAV Vmax: 0.89 m/Simran Vmean: 0.69 m/Simran VTI: 18.16 | | cmAVA Vmax: 3.34 cm2AVA (VTI): 3.51 ub9AICA Vmax: 0.00 cm2/m2AVAI (VTI): 0.00 | | cm2/m2LVCI Dopp: 2.41 l/iwag5YRAN Dopp: 5.00 l/minHR: 78.46 BPMLVOT maxP.34 | [...] 3 mmHgTV A Star: 0.46 m/sTV Dec Adair: 2.14 m/s2TV Dec Time: 223.61 | | msTV E Star: 0.47 m/sTV E/A Ratio: 1.03 Long Filler Cigar Roller Machine: Nishaticated by: Dereck | | KorimerlaReport Date/Time: [...] A Star: 0.46 m/s | |TV Dec Adair: 2.14 m/s2 | |TV Dec Time: 223.61 ms | |TV E Star: 0.47 m/s | |TV E/A Ratio: 1.03 | | | |Long Filler Cigar Roller Machine: GD | |Authenticated by: Dereck Galicia | [...] | | | Fingerstick | performed at [facility] [place];[address] | | LAB | | | | [address];[place], [place] | | | | | | [address] | | | | + + + [...] | | | | | | ACUTE HI Testing | | | | | | performed at [facility] [place];[address] | | | | | | [facility];[place], [place] | | | | | | [address] | | | | + + + [...] + + | Historically converted procedure from [facility] Epic environment | EXTERNAL LAB | [...] | | | PCRAbnormal Testing performed at [facility] [place];[address] [place] [address];[place] [address] | | + + + + +---------+ [...]
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
[2019-09-25] MEDS ORDERED: ASPIR 8181 MG PO (04:01)
--- NOTE | 2019-09-26 06:43 | EKG ---
[facility] [address] [place] Alonso [place] [address] Signed Sinus tachycardia Left axis deviation Pulmonary disease pattern Abnormal ECG When compared with ECG of 22-JUL-2019 10:19, premature ventricular complexes are no longer present Confirmed by BELA GARCIA MD ([id number]) on 09/26/2019 6:43:23 AM Electronically Signed By: BELA GARCIA MD 09/26/19 0643 PATIENT NAME: SELMA GONGJO ANN Electrocardiogram DATE OF : 69 PHYSICIAN: BELA GARCIA MD REPORT #: [id number] REPORT IS CONFIDENTIAL AND NOT TO BE RELEASED WITHOUT AUTHORIZATION
== END 2019-09-25 06:55 | disposition left against medical advice (07) ==
LOC: ED 03:51
DX: R07.89 Other chest pain (principal); I10 Essential (primary) hypertension; E11.9 Type 2 diabetes mellitus without complications; Z87.891 Personal history of nicotine dependence; Z88.0 Allergy status to penicillin; Z79.82 Long term (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 of aspirin
CPT/HCPCS: 71045; 80053; 83735; 84484; 85025; 85379; 93005; 93010; 99285-25

== ENCOUNTER 2019-10-05 20:48 | Emergency (ER) | payer OTHER ==
[~2019-10-05] VITALS: Ht 177.8 cm; Wt 74.8 kg
--- OUTSIDE RECORDS SUMMARY | ~2019-10-05 | XMS | Encounter Summary ---
Demographics + + + | Address | [address] | | | [place] [address] | + + + | Home Phone | | + + + | Preferred Language | Unknown | + + + | Marital Status | Single | + + + | Anabaptism Affiliation | 1077 | + + + | Race | Unknown | + + + | Ethnic Group | Unknown | + + + Author + + + | Author | [facility] | | | and [place] | + + + | Organization | [facility] | | | [...] Team Providers + +------+ + | Care Shoe Cementer Name | Role | Phone | + +------+ + | Estrella Light PA-C | PCP | | + +------+ + Encounter Details +--------+ + + + + | Date | Type | Department | Care Team | Description | +--------+ + + + + | 04/12/ | Orders Only | [facility] | Avi Forde MD | IgG Gliadin antibody | | 2016 | | GASTROENTEROLOGY | [address] [place] | positive; Chronic | | | | [address] [place] | [address] [place], [place] | diarrhea | | | | [address] [place], [place] | [address] | | | | | [address] | | | | | | [phone] | | | +--------+ + + + [...] filedocumented as of this encounter Visit Diagnoses + + | Diagnosis | + + | IgG Gliadin antibody positive Other and unspecified nonspecific immunological | | findings | + + | Chronic diarrhea Diarrhea | + + documented in this encounter"
--- OUTSIDE RECORDS SUMMARY | ~2019-10-05 | XMS | Encounter Summary ---
Demographics + + + | Address | [address] | | | [place] [address] | + + + | Home Phone | | + + + | Preferred Language | Unknown | + + + | Marital Status | Single | + + + | Church Affiliation | 1077 | + + + | Race | Unknown | + + + | Ethnic Group | Unknown | + + + Author + + + | Author | [facility] | | | and [place] | + + + | Organization | [facility] | | [...] Team Providers + +------+ + | Care Oil Sales And Service Rep Name | Role | Phone | + +------+ + PCP | Unavailable | + +------+ + Encounter Details +--------+ + + + + | Date | Type | Department | Care Team | Description | +--------+ + + + + | 07/19/ | Hospital | [facility] | | | | 1992 | Encounter | MED CTR MP INTRA OP | | | | | | [address] | | | | | | [place] | | | | | | [address] | | | | | | [phone] | | | +--------+ + + + [...]
--- OUTSIDE RECORDS SUMMARY | ~2019-10-05 | XMS | Clinical Summary ---
Demographics + + + | Address | [address] [place] [address] RD | | | [place] [address] | + + + | Home Phone | | + + + | Preferred Language | Unknown | + + + | Marital Status | Single | + + + | Anglican Affiliation | 1077 | + + + | Race | Unknown | + + + | Ethnic Group | Unknown | + + + Author + + + | Author | [facility] (Historical as of | | | 05-18-19) | + + + | Organization | [facility] (Historical as of | | | 05-18-19) | + + + | Address | Unknown | + + + | Phone | Unavailable | + + + Support + + +---------+ + | Name | Relationship | Address | Phone | + + +---------+ + | Katherine Duran | ECON | Unknown | | + + +---------+ + | ValentinSarah | ECON | Unknown | | + + +---------+ + Care Team Providers + +------+ + | Care Screw Machine Repairer Name | Role | Phone | + [...] | | | + + +--------+---------+------+------+-------+ | Multiple | Take 1 tablet by | | | | | Activ | | Vitamins-Minerals | mouth daily. | | | | | e | | (CEROVITE SENIOR) | | | | | | | | TABS | | | | | | | + + +--------+---------+------+------+-------+ | insulin glargine | Inject 18 Units into | | | | | Activ | | (LANTUS) 100 UNIT/ML | the skin After | | | | | e | | injection | dinner. | | | | | | + + +--------+---------+------+------+-------+ | insulin aspart | Inject 12 Units into | | | | | Activ | | (NOVOLOG) 100 | the skin 3 (three) | | | | | e | | UNIT/ML injection | times daily. | | | | | | + + +--------+---------+------+------+-------+ | lisinopril | Take 5 mg by mouth | | | | | Activ | | (ZESTRIL) 5 MG | daily. | | | | | e | | tablet | | | | | | | + + +--------+---------+------+------+-------+ Active Problems + + + | Problem | Noted Date | + + + | Other chest pain | 01/13/2018 | + + + | Viral upper respiratory tract infection | 01/13/2018 | + + + | Essential hypertension | 01/13/2018 | + + + | Skin ulcer of right foot, limited to breakdown of skin ([facility]) | 01/13/2018 | + + + | Cellulitis and abscess of foot | 12/15/2016 | + + + | Osteomyelitis ([facility]) | 12/15/2016 | + + + | Essential hypertension | 03/04/2015 | + + + | Type 2 diabetes mellitus, with long-term current use of insulin | 03/04/2015 | | ([facility]) | | + + + Family History + [...] | Blood Pressure | 126/89 | 11/20/2018 5:53 PM PST | + + + + | Pulse | 87 | 11/20/2018 5:53 PM PST | + + + + | Temperature | 36.5 C (97.7 F) | 11/20/2018 5:53 PM PST | + + + + | Respiratory Rate | 18 | 11/20/2018 5:53 PM PST | + + + + | Oxygen Saturation | 98% | 11/20/2018 5:53 PM PST | + + + + | Inhaled Oxygen | - | - | | Concentration | | | + + + + | Weight | 86.2 kg (190 lb) | 11/20/2018 3:45 PM PST | + + + + | Height | 177.8 cm (5' 10") | 01/13/2018 7:41 PM PDT | + + + + | Body Mass Index | 27.26 | 11/20/2018 3:45 PM PST | + + + + Plan of [...] + + | Hemoglobin A1c | | 01/14/2018, 12/15/2016 | | | | 8 | | | + + [...] +------+-------+ + | MEDICAID | [place] | [id number] | | | [address] | | | N | | | | [place], [place] | | | [place] | | | | [address] | | | SYSTEM INTEGRATION ENGINEER | | | | | + +--------+ +------+-------+ + | [facility] | YELLOW | [id number] | | | | | PLANS | [...] | Self | [birth year] | Home: | [address] | | | al/Fam | | 1965 | [phone]- | [place], [place] | | | vikas | | | [address] | [address] | + +--------+ +--------+ + + | [employer] | Third | Self | [birth year] | Home: | [address] | | | [employer] | | 1964 | [phone] | [place], [place] | | | [place] | | | [phone] | [phone] | | | ity | | | | | + +--------+ +--------+ + +
--- OUTSIDE RECORDS SUMMARY | ~2019-10-05 | XMS | Encounter Summary ---
Demographics + + + | Address | [address] | | | [place] [address] | + + + | Home Phone | | + + + | Preferred Language | Unknown | + + + | Marital Status | Single | + + + | Anglican Affiliation | 1077 | + + + | Race | Unknown | + + + | Ethnic Group | Unknown | + + + Author + + + | Author | [facility] | | | and [place] | + + + | Organization | [facility] | | | [...] Team Providers + +------+ + | Care Bicycle Courier Name | Role | Phone | + +------+ + | Estrella Light PA-C | PCP | | + +------+ + Reason for Visit +--------+ + | Reason | Comments | +--------+ + | Other | | +--------+ + Encounter Details +--------+ + + + + | Date | Type | Department | Care Team | Description | +--------+ + + + + | 09/22/ | Telephone | [facility] | Avi Forde MD | Other | | 2014 | | GASTROENTEROLOGY | [address] [place] | | | | | [address] [facility] | [address] [place] | | | | | [address] [place], [place] | [address] | | | | | [address] | | | | | | [phone] | | | +--------+ + + + [...]
--- OUTSIDE RECORDS SUMMARY | ~2019-10-05 | XMS | Encounter Summary ---
Demographics + + + | Address | [address] | | | [place] [address] | + + + | Home Phone [...] Team Providers + +------+ + | Care Infrastructure Analyst Name | Role | Phone | [...] diarrhea | [address] [place], | | | | | IgG Gliadin | [place], [place] | [address] [address] | | | | | antibody | [address] [place] | [place], | | | | | positive | [place] | [place] [address] | | | | | Alcohol | [address] | Phone: | | | | | abuse | Phone: | [phone] | | | | | Procedures | [phone] | Fax: | | | | | [place] | Fax: | [phone] | | | | | COLONOSCOPY | [phone] | | | | | | FLX DX | | | | | | | W/COLLJ SPEC | | | | | | | WHEN PFRMD | | | | | | | HI | | | | | | | COLONOSCOPY | | | | | | | W/BIOPSY | | | | | | | SINGLE/MULTI | | | | | | | PLE HI | | | | | | | COLSC FLX | | | | | | | W/RMVL OF | | | | | | | TUMOR POLYP | | | | | | | LESION SNARE | | | | | | | TQ HI | | | | | | | [...] 2014 | | GASTROENTEROLOGY | [address] [place] [place] | (procedure ) | | | | [address] [place] | [address] [place], [place] | | | | | [address] [place], [place] | [address] | | | | | [address] | | | | | | [phone] | | | +--------+ + + + [...]
--- OUTSIDE RECORDS SUMMARY | ~2019-10-05 | XMS | Encounter Summary ---
Demographics + + + | Address | [address] | | | [place] [address] | + + + | Home Phone | | + + + | Preferred Language | Unknown | + + + | Marital Status | Single | + + + | Yarsanism Affiliation | 1077 | + + + [...] Team Providers + +------+ + | Care Diamond Grinder Name | Role | Phone | + +------+ + PCP | Unavailable | + +------+ + Encounter Details +--------+ + + + + | Date | Type | Department | Care Team | Description | +--------+ + + + + | 05/21/ | Hospital | [facility] | Unknown, | | | 1992 | Encounter | MED CTR XRAY [address] | [place] | | | | | [place] | [phone] | | | | | [place] [address] | | | | | | [phone] | | | +--------+ + + + [...]
--- OUTSIDE RECORDS SUMMARY | ~2019-10-05 | XMS | Encounter Summary ---
Demographics + + + | Address | [address] | | | [place] [address] | + + + | Home Phone | | + + + | Preferred Language | Unknown | + + + | Marital Status | Single | + + + | Confucianist Affiliation | 1077 | + + + | Race | Unknown | + + + | Ethnic Group | Unknown | + + + Author + + + | Author | [facility] | | | and [place] | + + + | Organization | [facility] | | [...] Team Providers + +------+ + | Care Development Eng Name | Role | Phone | + [...] | diarrhea | | | | [address], [place] | [address] | | | | | [address] | | | | | | [phone] | | | +--------+ + + + [...]
--- OUTSIDE RECORDS SUMMARY | ~2019-10-05 | XMS | Encounter Summary ---
Demographics + + + | Address | [address] | | | [place] [address] | + + + | Home Phone | | + + + | Preferred Language | Unknown | + + + | Marital Status | Single | + + + | Christian Affiliation | 1077 | + + + [...] Providers + +------+ + | Care Regional Dedicated Truck Driver Name | Role | Phone [...] diarrhea | [address] [place], | | | | | IgG Gliadin | [place], [place] | [place] [address] | | | | | antibody | [address] [place] | [place], | | | | | positive | [place] | [place] [address] | | | | | Alcohol | [address] | Phone: | | | | | abuse | Phone: | [phone] | | | | | Procedures | [phone] | Fax: | | | | | [place] | Fax: | [phone] | | | | | COLONOSCOPY | [phone] | | | | | | FLX DX | | | | | | | W/COLLJ SPEC | | | | | | | WHEN PFRMD | | | | | | | [place] | | | | | | | COLONOSCOPY | | | | | | | W/BIOPSY | | | | | | | SINGLE/MULTI | | | | | | | PLE [place] | | | | | | | COLSC FLX | | | | | | | W/RMVL OF | | | | | | | TUMOR POLYP | | | | | | | LESION SNARE | | | | | | | TQ [place] | | | | | | | [...] 2014 | | GASTROENTEROLOGY | [address] [place], [place] | (procedure ) | | | | [address] [place] | [address] [place], [place] | | | | | [address] [place], [place] | [address] | | | | | [address] | | | | | | [phone] | | | +--------+ + + + [...]
--- OUTSIDE RECORDS SUMMARY | ~2019-10-05 | XMS | Encounter Summary ---
Demographics + + + | Address | [address] | | | [place] [address] | + + + | Home Phone [...] Team Providers + +------+ + | Care Wheel And Axle Inspector Name | Role | Phone | + +------+ + | Estrella Light PA-C | PCP | | + +------+ + Encounter Details +--------+ + + + + | Date | Type | Department | Care Team | Description | +--------+ + + + + | 01/13/ | Hospital | [facility] | Cameron Lopez | | | 2018 - | Encounter | [facility] | MD [place] | | | | | CLINICAL DECISION | [place], [place] | | | 01/14/ | | UNIT [facility] | [address] | | | 2017 | | [place], [place] | | | | | | [address] | | | | | | [phone] | | | +--------+ + + + [...] 01/14/181931 Date of Service: 01/14/18899 Status: Signed Hoop Flaring Machine Operator Helper: Abhinav Winters DO (Physician) The patient is 52 y.o. 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, presented to the emergency department of [facility] in [place] today with complaints of upper, sharp chest [...] not smoke. In the emergency department at [facility], EKG showed T inversions in [...] Date of Service: 04/15/18 0900 Status: Signed Hoop Flaring Machine Operator Helper: Elizabeth Galvez, RN (Registered Nurse) Approached by [...] 01/13/181399 Date of Service: 01/13/181399 Status: Signed Hoop Flaring Machine Operator Helper: Rosalba Luo RPH (Pharmacist) Clinical Pharmacy Note: [...] | | | Basophils | performed at [facility], [address] | K/uL | LAB | | | | [place], | | | | | | [place] [address] | | | | + + + [...] | | | | [place] [address] | | | | + + + [...] EXTERNAL | | | | performed at [facility], [address] | | LAB | | | | [place], | | | | | | [place] [address] | | | | + + + [...] EXTERNAL | | | | performed at [facility], [address] | | LAB | | | | [place], | | | | | | [place] [address] | | | | + + + [...] | EXTERNAL | | | A1c | [facility] | | LAB | | | [...] | | | | | performed at [facility], [address] | | | | | | [facility], | | | | | | [place] [address] | | | | + + + [...] | | | Cholesterol | performed at [facility], [address] | | LAB | | | , | [place], | | | | | Calculated, | [place] [address] | | | | | External | [...] | | | | | | at [facility], [address] | | | | | | [place], | | | | | | [place] [address] | | | | + + + [...] | | | Fingerstick | performed at [facility];[address] | | LAB | | | | [address];[place], [place] | | | | | | [address] | | | | + + + [...] + + | Historically converted procedure from [facility] Epic environment | EXTERNAL LAB | + [...] EXTERNAL | | | | performed at [facility];[address] | | LAB | | | | [address];[place], [place] | | | | | | [address] | | | | + + + [...] | | | Fingerstick | performed at [facility];[address] | | LAB | | | | [address];[place], [place] | | | | | | [address] | | | | + + + [...] | | | | | | ACUTE DC Testing | | | | | | performed at [facility];[address] | | | | | | [address] [facility];[place], [place] | | | | | | [address] | | | | + + + [...] EXTERNAL | | | | performed at [facility];[address] | | LAB | | | | [address];[place] | | | | | | [address] | | | | + + + [...] | | | Fingerstick | performed at [facility];[address] | | LAB | | | | [address];[place] | | | | | | [address] | | | | + + + [...] | | | Fingerstick | performed at [facility];[address] | | LAB | | | | [address];[place] | | | | | | [address] | | | | + + + [...] | | | | | | ACUTE DC Testing | | | | | | performed at [facility] | | | | | | [address] [facility];[place], [place] | | | | | | [address] | | | | + + + [...] EXTERNAL | | | | performed at [facility];[address] | | LAB | | | | [address];[place], [place] | | | | | | [address] | | | | + + + [...] TV A Star: 0.46 m/s TV Dec Kerr: 2.14 m/s2 TV Dec Time: | | | 223.61 ms TV E Star: 0.47 m/s TV E/A Ratio: 1.03 | | | [employer] Supervisor: DIDI Authenticated by: Dereck Galicia Report | [...] (A-L): | | 16.36 ml/m2LAAs A2C: 13.19 [id number] A-L A2C: 34.91 mlLALs A2C: 4.23 cmLAAs A4C: | | 11.37 ha5FUSID A-L A4C: 29.21 mlLALs A4C: 3.75 cmRAAd: 13.57 [id number] A-L: | | 35.22 mlRAEDV MOD: 30.46 mlRALd: 4.44 cmTAPSE: 1.67 cmHR: 82.18 BPMAV maxPG: | | 3.19 mmHgAV meanP.99 mmHgAV Vmax: 0.89 m/Simran Vmean: 0.69 m/Simran VTI: 18.16 | | cmAVA Vmax: 3.34 cm2AVA (VTI): 3.51 ws9UOXH Vmax: 0.00 cm2/m2AVAI (VTI): 0.00 | | cm2/m2LVCI Dopp: 2.41 l/qpph6AOCI Dopp: 5.00 l/minHR: 78.46 BPMLVOT maxP.34 | [...] 3 mmHgTV A Star: 0.46 m/sTV Dec Kerr: 2.14 m/s2TV Dec Time: 223.61 | | msTV E Star: 0.47 m/sTV E/A Ratio: 1.03 [employer] Supervisor: Nishaticated by: Dereck | | KorimerlaReport Date/Time: [...] A Star: 0.46 m/s | |TV Dec Kerr: 2.14 m/s2 | |TV Dec Time: 223.61 ms | |TV E Star: 0.47 m/s | |TV E/A Ratio: 1.03 | | | |[employer] Supervisor: GD | |Authenticated by: Dereck Galicia | [...] | | | Fingerstick | performed at [facility];[address] | | LAB | | | | [address];[place], [place] | | | | | | [address] | | | | + + + [...] | | | | | | ACUTE DC Testing | | | | | | performed at [facility];[address] | | | | | | [facility];[place], [place] | | | | | | [address] | | | | + + + [...] + + | Historically converted procedure from [facility] Epic environment | EXTERNAL LAB | + [...] | | | PCRAbnormal Testing performed at [facility];[address] [place] [address];[place] [address] | | + + + + +---------+ [...]
--- OUTSIDE RECORDS SUMMARY | ~2019-10-05 | XMS | Encounter Summary ---
Demographics + + + | Address | [address] | | | [place] [address] | + + + | Home Phone [...] Team Providers + +------+ + | Care Reimbursement Director Name | Role | Phone | + +------+ + | Estrella Light PA-C | PCP | | + +------+ + Encounter Details +--------+ + + + + | Date | Type | Department | Care Team | Description | +--------+ + + + + | 12/14/ | Hospital | [facility] | [place], | Osteomyelitis of | | 2017 - | Encounter | MEDICAL CENTER ACUTE | MD Pavel [address] | foot, left, acute | | | | CARE FLOOR [address] | (FORMERLY [facility]); Uncontrolled | | 12/20/ | | [address] | [place] [address] | type 2 diabetes | | 2017 | | [place], [place] | [phone] | mellitus with | | | | [address] | | hyperglycemia, | | | | [phone] | | unspecified long | | | | | | term insulin use | | | | | | status ([facility]); Renal | | | | [...] 1933 Date of Service: 12/20/161538 Status: Addendum Surgical Instrument Repair Specialist: Bunny Chaney MD (Physician) Related Notes: Original Note by Bunny Chaney MD (Physician) filed at 12/26/16 0644 [facility] Service: Hospitalist Physician Discharge Summary Patient ID: Kuldip Smith [id number] y.o. 1965 Admit date: 12/14/2016 Discharge [...] been approved, which should be given from [facility] ec until further approval from insurance. Also [...] up: Estrella Light PA-C [address] [place] [address] Rebeca Reza MD [address] [facility] [address] Schedule an appointment as soon as possible for a visit in 10 days Dictation and neuropsychiatric aide or software, [employer], used which may contain error for similar [...] - AMPUTATION; Surgeon: Walter Fernandez DPM; Location: [facility]; Service: Podiatry; Laterality: Left; Significant [...] Management by Jenny Vaughan RN at 12/20/16 5722 Author: Jenny Vaughan RN Service: (none) Author Type: Registered Nurse Filed: 12/20/16 6863 Date of Service: 12/20/161538 Status: Signed Surgical Instrument Repair Specialist: Jenny Vaughan RN (Registered Nurse) 1610 - Received call from [facility] stating they are now unable to accept pa tient due to a "freeze on admits". They are aware patient has been discharged and is en rou te to home. They are still unable to accept. Call placed to [facility] OPP rega rding need for services. They state pt will need to arrange wound care/dressing changes thr ough his PCP per insurance requirements. Voicemail left for Coby at [facility] to return call. Will need to call back in morning to schedule appointment as clinic is currently closed. onver ruben Transaction, Provider Unknown - 12/20/2016 3:39 PM PDT Case Management by Mirlande Prescott RN at 12/20/16 8959 Author: Mirlande Prescott RN Service: (none) Author Type: Registered Nurse Filed: 12/21/16 0808 Date of Service: 12/20/16 1539 Status: Signed Surgical Instrument Repair Specialist: Mirlande Prescott RN (Registered Nurse) 0800: Tc to pt's PCP, Coby Light, with [facility], to updat e about [facility] not being able to admit pt. Coby states she and Charlotte will work on getting pt the appropriate wound vac care he needs, they are going to try and get pt into O P wound therapy with [facility] or maybe to OP in WW. Coby states she will als o call [facility] as to when they can admit pt under their services. Maribel onver ruben Transaction, Provider Unknown - 12/20/2016 1:03 PM PDT Progress Notes by Rachael Molina RN at 12/20/16 1303 Author: Rachael Molina RN Service: Wound/Ostomy Care Author Type: Registered Nurse Filed: 12/20/16 1311 Date of Service: 12/20/16 1303 Status: Signed Surgical Instrument Repair Specialist: Rachael Molina RN (Registered Nurse) Wound care in to switch patient out to portable wound vac unit. This is a sol vac on l oan from [facility]. Explained to patient when his insurance approves his home vac unit, that t his sol vac is to be returned via [employer]. Instructions given in detail, voiced candelaria frias. Photo taken of tracking number and faxed to Alicia [facility] rep. Instructions on how to use [...] for further protection. Hospital vac dc'd in [facility] express: #[id number] Rachael Molina RN, ON 12/20/2016 1:10 PM onver ruben Transaction, Provider Unknown - 12/20/2016 11:34 AM PDT Case Management by Mirlande Prescott RN at 12/20/16 1134 Author: Mirlande Prescott RN Service: (none) Author Type: Registered Nurse Filed: 12/20/16 1459 Date of Service: 12/20/16 1134 Status: Addendum Surgical Instrument Repair Specialist: Mirlande Prescott RN (Registered Nurse) Related Notes: Original Note by Mirlande Prescott RN (Registered Nurse) filed at 12/20/16 114 9 Per rounding with pt, he will be d/c home today. Pt states his mother will be providing tra nsportation home. Wound vac has been approved by [employer]. [facility] has been set up, and they have been notified about d/c, pt may not be able t o be admitted until . Pt's wound dressing is due Monday. Tc to Angie with wound care, it's not ideal that pt's dressing doesn't get changed until , but it is ok to wait. Dr Chaney was notified and agrees with plan. Tc to Coby [phone] and Charlotte [phone] with [facility]/mannie pickens nd left mssgs of pt's d/c Today. Faxed AVS to [facility] Maribel Iqra Mcgregor PT - 12/20/2016 10:07 AM PDTFormatting of this note might be different from th e original. Therapy Progress Note by Karina Zabala PT at 12/20/16 1007 Author: Karina Zabala PT Service: (none) Author Type: Physical Therapist Filed: 12/20/16 1037 Date of Service: 12/20/16 1007 Status: Signed Surgical Instrument Repair Specialist: Karina Zabala PT (Physical Therapist) 12/20/16 1007 [...] (none) Author Type: Physical Therapist Filed: 12/19/16 0959 Date of Service: 12/19/166 Status: Signed Surgical Instrument Repair Specialist: Natalia Marte PT (Physical Therapist) 12/19/16 1646 PT Last Visit PT Received On 12/19/16 Reason for Treatment Other (comment) (L foot osteomyelitis) Requires PT Follow Up Awaiting tx order Follow up PT Only? Yes (Assistive device assessment) Focus for Next Treatment Equipment Trial;Stair Training (bilateral axillary crutches and stair training) PT Eval/Reassessment Date 12/19/16 Assistance Required 1 person Regional Engineer Needed No Home Environment Type of Home Home one story Home Exterior Layout 1-3 steps (2 JEISON) Home Interior Layout Lives on main level with bedroom/bathroom Bathroom Shower/Tub Tub/shower unit Bathroom Toilet Raised Bathroom Equipment Grab bars outside of shower/bath;Raised toilet seat Bathroom Accessibility Not accessible Home Equipment Cane single point;Crutches-axillary Prior Function Level of [place] Independent with ADLs;Independent with IADLs;Modified independent wi [...] Eval/Reassessment Date 12/19/16 Assistance Required 1 person Regional Engineer Needed No Precautions LE Precaution(s) LLE Precautions/WB [...] Notes by Rebeca Reza MD at 12/19/16 7473 Author: Rebeca Reza MD Service: Infectious Disease Author Type: Physician Filed: 12/20/16 0639 Date of Service: 12/19/16 6491 Status: Signed Surgical Instrument Repair Specialist: Rebeca Reza MD (Physician) [facility] Service: Infectious Disease Progress Note Hospital [...] Dec 15 2016 9:30AM Referring Provider Line: [phone] ID: [id number] MRI foot left without contrast [[id number]] Impression 1. Recent amputation of the LEFT 4th toe. 2. No radiographic evidence of residual osteomyelitis in the remaining ossicles of the LEF T forefoot. 3. Moderately extensive vascular calcifications. X-ray foot left [[id number]] PROBLEM LIST Principal Problem: Osteomyelitis (HCC) Active [...] Date of Service: 12/19/16 1103 Status: Signed Surgical Instrument Repair Specialist: Dell Archer DO (Physician) PROGRESS NOTE 12/19/2016 [...] 1103 Date of Service: 12/19/16914 Status: Addendum Surgical Instrument Repair Specialist: Jenny Vaughan RN (Registered Nurse) Related Notes: Original Note by Jenny Vaughan RN (Registered Nurse) filed at 12/19/16 [phone] - [facility]. She wi ll be following patient [...] accept patient. Face to face order faxed ([phone]) [facility] RN [phone] Alicia with [facility] notified of wound vac placement. Auth form signed by hospitalist and faxed to Alicia. Lilly with [facility] Care notified of patient discharging on oral antibiotics. onver ruben Transaction, Provider Unknown - 12/18/2016 6:45 PM PDT Nurse Progress Note by Gerber Hay RN at 12/18/161844 Author: Gerber Hay RN Service: (none) Author Type: Registered Nurse Filed: 12/18/161847 Date of Service: 12/18/161844 Status: Signed Surgical Instrument Repair Specialist: Gerber Hay RN (Registered Nurse) Pt resting [...] 12/18/16933 Date of Service: 12/18/16928 Status: Addendum Surgical Instrument Repair Specialist: Dell Archer DO (Physician) Related Notes: Original [...] 12/18/16899 Date of Service: 12/18/16854 Status: Signed Surgical Instrument Repair Specialist: Walter Fernandez DPM (Doctor of Podiatric Medicine) [facility] Service: Podiatry Progress Note Hospital Day: [...] home health care. Dr. David DPM in [place] take s care of this patient and [...] 12/18/16845 Date of Service: 12/18/16845 Status: Signed Surgical Instrument Repair Specialist: Destini Vargas RPH (Pharmacist) Day 5 Vanco [...] 1108 Date of Service: 12/18/16820 Status: Signed Surgical Instrument Repair Specialist: Rebeca Reza MD (Physician) [facility] Service: Infectious Disease Progress Note Hospital [...] Dec 15 2016 9:30AM Referring Provider Line: [phone] ID: [id number] MRI foot left without contrast [[id number]] Impression 1. Recent amputation of the LEFT 4th toe. 2. No radiographic evidence of residual osteomyelitis in the remaining ossicles of the LEF T forefoot. 3. Moderately extensive vascular calcifications. X-ray foot left [[id number]] PROBLEM LIST Principal Problem: Osteomyelitis (HCC) Active [...] culture growth of Strep agalactiae w ith Marei albicans on superficial wound culture -Blood cultures [...] Note by Jihan Jacinto RPH at 12/17/16 7078 Author: Jihan Jacinto RPH Service: Pharmacy Author Type: Pharmacist Filed: 12/17/162246 Date of Service: 12/17/162246 Status: Signed Surgical Instrument Repair Specialist: Jihan Jacinto RPH (Pharmacist) Clinical Pharmacy Note: [...] 12/17/161750 Date of Service: 12/17/161742 Status: Signed Surgical Instrument Repair Specialist: Gerber Hay RN (Registered Nurse) Wound vac [...] Notes by Rebeca Reza MD at 12/17/16 2910 Author: Rebeca Reza MD Service: Infectious Disease Author Type: Physician Filed: 12/17/16 1708 Date of Service: 12/17/16 1510 Status: Addendum Surgical Instrument Repair Specialist: Rebeca Reza MD (Physician) Related Notes: Original Note by Rebeca Reza MD (Physician) filed at 12/17/16 4173 [facility] Service: Infectious Disease Progress Note Hospital [...] Dec 15 2016 9:30AM Referring Provider Line: [phone] ID: [id number] MRI foot left without contrast [[id number]] Impression 1. Recent amputation of the LEFT 4th toe. 2. No radiographic evidence of residual osteomyelitis in the remaining ossicles of the LEF T forefoot. 3. Moderately extensive vascular calcifications. X-ray foot left [[id number]] PROBLEM LIST Principal Problem: Osteomyelitis (HCC) Active [...] Doctor of Podiatric Medi cine Filed: 12/17/16 3851 Date of Service: 12/17/16 1406 Status: Signed Surgical Instrument Repair Specialist: Walter Fernandez DPM (Doctor of Podiatric Medicine) [facility] Service: Podiatry Progress Note Hospital Day: [...] Note by Gerber Hay RN at 12/17/16 2871 Author: Gerber Hay RN Service: (none) Author Type: Registered Nurse Filed: 12/17/16 5684 Date of Service: 12/17/16 1144 Status: Signed Surgical Instrument Repair Specialist: Gerber Hay RN (Registered Nurse) Pt had [...] Filed: 12/17/16 1103 Date of Service: 12/17/16 1056 Status: Signed Surgical Instrument Repair Specialist: Dell Archer DO (Physician) PROGRESS NOTE 12/17/2016 [...] 12/17/16834 Date of Service: 12/17/16834 Status: Signed Surgical Instrument Repair Specialist: Destini Vargas RPH (Pharmacist) Day 4 Vanco [...] 12/17/168 Date of Service: 12/17/16307 Status: Signed Surgical Instrument Repair Specialist: Jihan Jacinto RPH (Pharmacist) Clinical Pharmacy Note: [...] 12/16/161719 Date of Service: 12/16/161709 Status: Signed Surgical Instrument Repair Specialist: Walter Fernandez DPM (Doctor of Podiatric Medicine) [facility] Service: Podiatry Progress Note Hospital Day: [...] WALTER Barber FERNANDEZ, SHYAM 12/16/2016 aranada, Isak Messnia MD - 12/16/2016 12:47 PM PDTFormatting of this note might be different from the origi nal. Progress Notes by Rebeca Reza MD at 12/16/16 9191 Author: Rebeca Reza MD Service: Infectious Disease Author Type: Physician Filed: 12/16/16 1606 Date of Service: 12/16/163 Status: Signed Surgical Instrument Repair Specialist: Rebeca Reza MD (Physician) [facility] Service: Infectious Disease Progress Note Hospital [...] Dec 15 2016 9:30AM Referring Provider Line: [phone] ID: [id number] MRI foot left without contrast [[id number]] Impression 1. Recent amputation of the LEFT 4th toe. 2. No radiographic evidence of residual osteomyelitis in the remaining ossicles of the LEF T forefoot. 3. Moderately extensive vascular calcifications. X-ray foot left [[id number]] PROBLEM LIST Principal Problem: Osteomyelitis (HCC) Active [...] Management by Jenny Vaughan RN at 12/16/16 2898 Author: Jenny Vaughan RN Service: (none) Author Type: Registered Nurse Filed: 12/16/16 0581 Date of Service: 12/16/16 8624 Status: Signed Surgical Instrument Repair Specialist: Jenny Comfort, RN (Registered Nurse) 12/16/16 7373 Discharge Planning Evaluation Admitting Diagnosis osteomyelitis Readmission No Living Arrangements Parent Support Systems Parent;Family members Type of Residence Private residence House type House-1 story Steps to enter 2 Independent with ADL's Yes Independent with Mobility Yes Mental Status Oriented Prior functional status not employed, independent Power of [employer] No Anticipated Discharge Plan Post Acute Care [...] PCP is: Estrella Light PA-C Patient's insurance: Medicare/[facility] Coverage concerns: None Medication coverage/concerns: None Community resources utilized / needed: TBD pending pt progress and treatment plan. Sascha garcia need home health services along with IV abx. Discussed with patient and he states und erstanding. Referral sent to [facility] for nursing services as patient lives in [place]. Options for home IV abx services provided to pt/family and they do not have a preference. Referral to [facility] will follow. Pt/family requested I notify Coby at the [facility] of pt status as she ar ranges services for them. Contacted Coby and provided current discharge plan. If there is a change in plan, Coby requests to be notified as she will continue to follow patient after discharge. She also states pt will be followed by their community health nurse (Charlotte ) who works alongside [facility]. Coby [facility] [phone] Assistance in transportation: Pt's family is able [...] Date of Service: 12/16/16 1012 Status: Signed Surgical Instrument Repair Specialist: Dell Archer DO (Physician) PROGRESS NOTE 12/16/2016 [...] Date of Service: 12/15/16 1248 Status: Signed Surgical Instrument Repair Specialist: Jenny Vaughan RN (Registered Nurse) Attempted to [...] 12/15/16405 Date of Service: 12/15/16405 Status: Signed Surgical Instrument Repair Specialist: Jihan Jacinto RPH (Pharmacist) Clinical Pharmacy Note: [...] 12/15/16404 Date of Service: 12/15/16404 Status: Signed Surgical Instrument Repair Specialist: Jihan Jacinto RPH (Pharmacist) Clinical Pharmacy Note: [...] | | | Fingerstick | performed at [facility];88 | | LAB | | | | [address];[place] | | | | | | [address] | | | | + + + [...] EXTERNAL | | | | performed at [facility];888 | | LAB | | | | [address];[place], [place] | | | | | | [address] | | | | + + + [...] EXTERNAL | | | | performed at [facility];888 | K/uL | LAB | | | | [address];[place] | | | | | | [address] | | | | + + + + + + | RED CELL | 4.00 (L)Comment: Testing | 4.20 - 5.70 | EXTERNAL | | | COUNT | performed at [facility];888 | M/uL | LAB | | | | [address];[place] | | | | | | [address] | | | | + + + + + + | Hgb | 11.6 (L)Comment: Testing | 13.2 - 17.0 | EXTERNAL | | | | performed at [facility];888 | g/dL | LAB | | | | [address];[place] | | | | | | [address] | | | | + + + + + + | Hematocrit, | 33.9 (L)Comment: Testing | 39.0 - 50.0 % | EXTERNAL | | | POC | performed at [facility];888 | | LAB | | | | [address];[place] | | | | | | [address] | | | | + + + + + + | MCV | 84.7Comment: Testing | 80.0 - 100.0 fl | EXTERNAL | | | | performed at [facility];888 | | LAB | | | | [address];[place] | | | | | | [address] | | | | + + + + + + | MCH | 28.9Comment: Testing | 27.0 - 34.0 pg | EXTERNAL | | | | performed at [facility];888 | | LAB | | | | [address];[place] | | | | | | [address] | | | | + + + + + + | MCHC | 34.1Comment: Testing | 32.0 - 35.5 | EXTERNAL | | | | performed at [facility];888 | g/dL | LAB | | | | [address];[place] | | | | | | [address] | | | | + + + + + + | RDW-CV | 42.0Comment: Testing | 37 - 53 fl | EXTERNAL | | | | performed at [facility];888 | | LAB | | | | [address];[place] | | | | | | [address] | | | | + + + + + + | Platelet | 392Comment: Testing | 150 - 400 K/uL | EXTERNAL | | | Count | performed at [facility];888 | | LAB | | | Plasma | [address];[place] | | | | | | [address] | | | | + + + + + + | MPV | 7.0Comment: Testing | fl | EXTERNAL | | | | performed at [facility];888 | | LAB | | | | [address];[place] | | | | | | [address] | | | | + + + + + + | Differentia | MANUALComment: Testing | | EXTERNAL | | | l Type | performed at [facility];888 | | LAB | | | | [address];[place] | | | | | | [address] | | | | + + + + + + | Segmented | 69Comment: Testing | % | EXTERNAL | | | Neutrophils | performed at [facility];888 | | LAB | | | Manual | [address];[place] | | | | | | [address] | | | | + + + + + + | Lymphocytes | 21Comment: Testing | % | EXTERNAL | | | Manual | performed at [facility];888 | | LAB | | | | [address];[place] | | | | | | [address] | | | | + + + + + + | Monocytes | 4Comment: Testing | % | EXTERNAL | | | Manual | performed at [facility];888 | | LAB | | | | [address];[place] | | | | | | [address] | | | | + + + + + + | Eosinophils | 6Comment: Testing | % | EXTERNAL | | | Manual | performed at [facility];888 | | LAB | | | | [address];[place] | | | | | | [address] | | | | + + + + + + | Absolute | 5.08Comment: Testing | 1.90 - 7.40 | EXTERNAL | | | Neutrophils | performed at [facility];888 | K/uL | LAB | | | | [address];[place] | | | | | | [address] | | | | + + + + + + | Absolute | 1.55Comment: Testing | 1.00 - 3.90 | EXTERNAL | | | Lymphocytes | performed at [facility];888 | K/uL | LAB | | | | [address];[place] | | | | | | [address] | | | | + + + + + + | Absolute | 0.29Comment: Testing | 0.00 - 0.80 | EXTERNAL | | | Monocytes | performed at [facility];888 | K/uL | LAB | | | | [address];[place] | | | | | | [address] | | | | + + + + + + | Absolute | 0.44Comment: Testing | 0.00 - 0.50 | EXTERNAL | | | Eosinophils | performed at [facility];888 | K/uL | LAB | | | | [address];[place] | | | | | | [address] | | | | + + + + + + | RBC | NORMALComment: Testing | | EXTERNAL | | | Morphology | performed at [facility];888 | | LAB | | | | [address];[place] | | | | | | [address] | | | | + + + [...] EXTERNAL | | | | performed at [facility];888 | | LAB | | | | [address];[place] | | | | | | [address] | | | | + + + [...] | | | Fingerstick | performed at [facility];888 | | LAB | | | | [address];[place], [place] | | | | | | [address] | | | | + + + [...] | | | Fingerstick | performed at [facility];888 | | LAB | | | | [address];[place] | | | | | | [address] | | | | + + + [...] | | | Fingerstick | performed at [facility];888 | | LAB | | | | [address];[place] | | | | | | [address] | | | | + + [...] | | | Fingerstick | performed at [facility];888 | | LAB | | | | [address];[place] | | | | | | [address] | | | | + + + [...] | | | Fingerstick | performed at [facility];888 | | LAB | | | | [address];[place], [place] | | | | | | [address] | | | | + + + [...] | | | Fingerstick | performed at [facility];[address] | | LAB | | | | [address];[place] | | | | | | [address] | | | | + + + [...] | | | Fingerstick | performed at [facility];[address] | | LAB | | | | [address];[place], [place] | | | | | | [address] | | | | + + + [...] | | | Fingerstick | performed at [facility];888 | | LAB | | | | [address];[place] | | | | | | [address] | | | | + + + [...] | EXTERNAL LAB | | performed at [facility];[address] [place] [address];[place] [address] TOXIN A | | | NEGATIVE Testing performed at | | | [facility];[address] [facility];[place] [address] C DIFF INTERPRETATION | | | Negative for toxigenic C.difficile. Testing performed at | | | [facility];[address] [place] [address];[place] [address] | | + + + + +---------+ [...] | | | Fingerstick | performed at [facility];[address] | | LAB | | | | [address];[place] | | | | | | [address] | | | | + + + [...] | | | | [place] [address] | | | | + + + + + + | RED CELL | 3.92 (L)Comment: Testing | 4.20 - 5.70 | EXTERNAL | | | COUNT | performed at [facility], [address] | M/uL | LAB | | | | [address], | | | | | | [place] [address] | | | | + + + + + + | Hgb | 11.2 (L)Comment: Testing | 13.2 - 17.0 | EXTERNAL | | | | performed at [facility], [address] | g/dL | LAB | | | | [address], | | | | | | [place] [address] | | | | + + + + + + | Hematocrit, | 33.6 (L)Comment: Testing | 39.0 - 50.0 % | EXTERNAL | | | POC | performed at [facility], [address] | | LAB | | | | [address], | | | | | | [place] [address] | | | | + + + + + + | MCV | 85.9Comment: Testing | 80.0 - 100.0 fl | EXTERNAL | | | | performed at [facility], [address] | | LAB | | | | [address], | | | | | | [place] [address] | | | | + + + + + + | MCH | 28.7Comment: Testing | 27.0 - 34.0 pg | EXTERNAL | | | | performed at [facility], [address] | | LAB | | | | [address], | | | | | | [place] [address] | | | | + + + + + + | MCHC | 33.4Comment: Testing | 32.0 - 35.5 | EXTERNAL | | | | performed at [facility], [address] | g/dL | LAB | | | | [address], | | | | | | [place] [address] | | | | + + + + + + | RDW-CV | 41.1Comment: Testing | 37 - 53 fl | EXTERNAL | | | | performed at [facility], [address] | | LAB | | | | [address], | | | | | | [place] [address] | | | | + + + + + + | Platelet | 341Comment: Testing | 150 - 400 K/uL | EXTERNAL | | | Count | performed at [facility], [address] | | LAB | | | Plasma | [place] [address], | | | | | | [place] [address] | | | | + + + + + + | MPV | 7.6Comment: Testing | fl | EXTERNAL | | | | performed at [facility], [address] | | LAB | | | | [address], | | | | | | [place] [address] | | | | + + + + + + | Differentia | AUTOMATEDComment: | | EXTERNAL | | | l Type | Testing performed at | | LAB | | | | [facility], [address] | | | | | | [place] | | | | | | [address] | | | | + + + + + + | % Segmented | 76.22Comment: Testing | % | EXTERNAL | | | | performed at [facility], [address] | | LAB | | | Neutrophils | [address], | | | | | | [place] [address] | | | | + + + + + + | % | 12.04Comment: Testing | % | EXTERNAL | | | Lymphocytes | performed at [facility], [address] | | LAB | | | | [address], | | | | | | [place] [address] | | | | + + + + + + | % Monocytes | 6.15Comment: Testing | % | EXTERNAL | | | | performed at [facility], [address] | | LAB | | | | [address], | | | | | | [place] [address] | | | | + + + + + + | % | 4.73Comment: Testing | % | EXTERNAL | | | Eosinophils | performed at [facility], [address] | | LAB | | | | [address], | | | | | | [place] [address] | | | | + + + + + + | % Basophils | 0.86Comment: Testing | % | EXTERNAL | | | | performed at [facility], [address] | | LAB | | | | [address], | | | | | | [place] [address] | | | | + + + + + + | Absolute | 8.38 (H)Comment: Testing | 1.90 - 7.40 | EXTERNAL | | | Segmented | performed at [facility], [address] | [address] | LAB | | | Neutrophils | [address], | | | | | | [place] [address] | | | | + + + + + + | Absolute | 1.32Comment: Testing | 1.00 - 3.90 | EXTERNAL | | | Lymphocytes | performed at [facility], [address] | K[address] | LAB | | | | [address], | | | | | | [place] [address] | | | | + + + + + + | Absolute | 0.68Comment: Testing | 0.00 - 0.80 | EXTERNAL | | | Monocytes | performed at [facility], [address] | K/uL | LAB | | | | [address], | | | | | | [place] [address] | | | | + + + + + + | Absolute | 0.52 (H)Comment: Testing | 0.00 - 0.50 | EXTERNAL | | | Eosinophils | performed at [facility], [address] | [address] | LAB | | | | [address], | | | | | | [place] [address] | | | | + + + + + + | Absolute | 0.10Comment: Testing | 0.00 - 0.10 | EXTERNAL | | | Basophils | performed at [facility], [address] | K/uL | LAB | | | | [address], | | | | | | [place] [address] | | | | + + + [...] | | | | [place] [address] | | | | + + + + + + | K | 3.8Comment: Testing | 3.5 - 4.9 | EXTERNAL | | | | performed at [facility], [address] | mmol/L | LAB | | | | [address], | | | | | | [place] [address] | | | | + + + + + + | Cl | 105Comment: Testing | 99 - 109 mmol/L | EXTERNAL | | | | performed at [facility], [address] | | LAB | | | | [address], | | | | | | [place] [address] | | | | + + + + + + | CO2 | 25Comment: Testing | 23 - 32 mmol/L | EXTERNAL | | | | performed at [facility], [address] | | LAB | | | | [address], | | | | | | [place] [address] | | | | + + + + + + | Anion Gap | 12Comment: Testing | 5 - 20 mmol/L | EXTERNAL | | | | performed at [facility], [address] | | LAB | | | | [address], | | | | | | [place] [address] | | | | + + + + + + | Glucose, | 236 (H)Comment: Testing | 65 - 99 mg/dL | EXTERNAL | | | Fasting | performed at [facility], [address] | | LAB | | | | [address], | | | | | | [place] [address] | | | | + + + + + + | BUN | 6 (L)Comment: Testing | 8 - 25 mg/dL | EXTERNAL | | | | performed at [facility], [address] | | LAB | | | | [address], | | | | | | [place] [address] | | | | + + + + + + | Creatinine | 0.9Comment: Testing | 0.70 - 1.30 | EXTERNAL | | | | performed at [facility], [address] | mg/dL | LAB | | | | [address], | | | | | | [place] [address] | | | | + + + + + + | BUN/Creatin | 7Comment: Testing | | EXTERNAL | | | ine Ratio | performed at [facility], [address] | | LAB | | | | [place] [address], | | | | | | [place] [address] | | | | + + + + + + | Calcium | 8.3 (L)Comment: Testing | 8.5 - 10.5 | EXTERNAL | | | | performed at [facility], [address] | mg/dL | LAB | | | | [address], | | | | | | [place] [address] | | | | + + + [...] Man, | | | | | | [place] [address] | | | | + + + [...] | | | Fingerstick | performed at [facility];88 | | LAB | | | | [address];[place] | | | | | | [address] | | | | + + + [...] | | | | | performed at [facility];[address] | | | | | | [address];[place] | | | | | | [address] | | | | + + + [...] | | | Fingerstick | performed at [facility];[address] | | LAB | | | | [address];[place], [place] | | | | | | [address] | | | | + + + [...] | | | Fingerstick | performed at [facility];[address] | | LAB | | | | [address];[place] | | | | | | [address] | | | | + + + [...] | | | Fingerstick | performed at [facility];[address] | | LAB | | | | [address];[place] | | | | | | [address] | | | | + + + [...] [place] | | | | | | [address] | | | | + + + + + + | RED CELL | 4.13 (L)Comment: Testing | 4.20 - 5.70 | EXTERNAL | | | COUNT | performed at [facility], [address] | M/uL | LAB | | | | [address], | | | | | | [place] [address] | | | | + + + + + + | Hgb | 11.7 (L)Comment: Testing | 13.2 - 17.0 | EXTERNAL | | | | performed at [facility], [address] | g/dL | LAB | | | | [address], | | | | | | [place] [address] | | | | + + + + + + | Hematocrit, | 34.8 (L)Comment: Testing | 39.0 - 50.0 % | EXTERNAL | | | POC | performed at [facility], [address] | | LAB | | | | [address], | | | | | | [place] [address] | | | | + + + + + + | MCV | 84.2Comment: Testing | 80.0 - 100.0 fl | EXTERNAL | | | | performed at [facility], [address] | | LAB | | | | [address], | | | | | | [place] [address] | | | | + + + + + + | MCH | 28.2Comment: Testing | 27.0 - 34.0 pg | EXTERNAL | | | | performed at [facility], [address] | | LAB | | | | [address], | | | | | | [place] [address] | | | | + + + + + + | MCHC | 33.5Comment: Testing | 32.0 - 35.5 | EXTERNAL | | | | performed at [facility], [address] | g/dL | LAB | | | | [address], | | | | | | [place] [address] | | | | + + + + + + | RDW-CV | 42.0Comment: Testing | 37 - 53 fl | EXTERNAL | | | | performed at [facility], [address] | | LAB | | | | [address], | | | | | | [place] [address] | | | | + + + + + + | Platelet | 329Comment: Testing | 150 - 400 K/uL | EXTERNAL | | | Count | performed at [facility], [address] | | LAB | | | Plasma | [address], | | | | | | [place] [address] | | | | + + + + + + | MPV | 7.9Comment: Testing | fl | EXTERNAL | | | | performed at [facility], [address] | | LAB | | | | [address], | | | | | | [place] [address] | | | | + + + + + + | Differentia | AUTOMATEDComment: | | EXTERNAL | | | l Type | Testing performed at | | LAB | | | | [facility], [address] | | | | | | [place] | | | | | | [address] | | | | + + + + + + | % Segmented | 83.29Comment: Testing | % | EXTERNAL | | | | performed at [facility], [address] | | LAB | | | Neutrophils | [address], | | | | | | [place] [address] | | | | + + + + + + | % | 8.71Comment: Testing | % | EXTERNAL | | | Lymphocytes | performed at [facility], [address] | | LAB | | | | [address], | | | | | | [place] [address] | | | | + + + + + + | % Monocytes | 5.08Comment: Testing | % | EXTERNAL | | | | performed at [facility], [address] | | LAB | | | | [address], | | | | | | [place] [address] | | | | + + + + + + | % | 2.32Comment: Testing | % | EXTERNAL | | | Eosinophils | performed at [facility], [address] | | LAB | | | | [address], | | | | | | [place] [address] | | | | + + + + + + | % Basophils | 0.60Comment: Testing | % | EXTERNAL | | | | performed at [facility], [address] | | LAB | | | | [address], | | | | | | [place] [address] | | | | + + + + + + | Absolute | 12.15 (H)Comment: | 1.90 - 7.40 | EXTERNAL | | | Segmented | Testing performed at | K/uL | LAB | | | Neutrophils | [facility], [address] | | | | | | [place] | | | | | | [address] | | | | + + + + + + | Absolute | 1.27Comment: Testing | 1.00 - 3.90 | EXTERNAL | | | Lymphocytes | performed at [facility], [address] | K/uL | LAB | | | | [address], | | | | | | [place] [address] | | | | + + + + + + | Absolute | 0.74Comment: Testing | 0.00 - 0.80 | EXTERNAL | | | Monocytes | performed at [facility], [address] | K/uL | LAB | | | | [address], | | | | | | [place] [address] | | | | + + + + + + | Absolute | 0.34Comment: Testing | 0.00 - 0.50 | EXTERNAL | | | Eosinophils | performed at [facility], [address] | K/uL | LAB | | | | [address], | | | | | | [place] [address] | | | | + + + + + + | Absolute | 0.09Comment: Testing | 0.00 - 0.10 | EXTERNAL | | | Basophils | performed at [facility], [address] | K/uL | LAB | | | | [address], | | | | | | [place] [address] | | | | + + + [...] | | | | [place] [address] | | | | + + + + + + | K | 3.8Comment: Testing | 3.5 - 4.9 | EXTERNAL | | | | performed at [facility], [address] | mmol/L | LAB | | | | [address], | | | | | | [place] [address] | | | | + + + + + + | Cl | 104Comment: Testing | 99 - 109 mmol/L | EXTERNAL | | | | performed at [facility], [address] | | LAB | | | | [address], | | | | | | [place] [address] | | | | + + + + + + | CO2 | 27Comment: Testing | 23 - 32 mmol/L | EXTERNAL | | | | performed at [facility], [address] | | LAB | | | | [address], | | | | | | [place] [address] | | | | + + + + + + | Anion Gap | 11Comment: Testing | 5 - 20 mmol/L | EXTERNAL | | | | performed at [facility], [address] | | LAB | | | | [address], | | | | | | [place] [address] | | | | + + + + + + | Glucose, | 196 (H)Comment: Testing | 65 - 99 mg/dL | EXTERNAL | | | Fasting | performed at [facility], [address] | | LAB | | | | [address], | | | | | | [place] [address] | | | | + + + + + + | BUN | 5 (L)Comment: Testing | 8 - 25 mg/dL | EXTERNAL | | | | performed at [facility], [address] | | LAB | | | | [address], | | | | | | [place] [address] | | | | + + + + + + | Creatinine | 0.9Comment: Testing | 0.70 - 1.30 | EXTERNAL | | | | performed at [facility], [address] | mg/dL | LAB | | | | [address], | | | | | | [place] [address] | | | | + + + + + + | BUN/Creatin | 6Comment: Testing | | EXTERNAL | | | ine Ratio | performed at [facility], [address] | | LAB | | | | [address], | | | | | | [place] [address] | | | | + + + + + + | Calcium | 8.4 (L)Comment: Testing | 8.5 - 10.5 | EXTERNAL | | | | performed at [facility], [address] | mg/dL | LAB | | | | [address], | | | | | | [place] [address] | | | | + + + [...] | | | | | | [place] [address] | | | | + + + [...] | | | Fingerstick | performed at [facility];[address] | | LAB | | | | [address];[place] | | | | | | [address] | | | | + + + [...] | | | Fingerstick | performed at [facility];8 | | LAB | | | | [address];[place] | | | | | | [address] | | | | + + + [...] | | | | | performed at [facility] | | | | | | [facility];[place], [place] | | | | | | [address] | | | | + + + [...] | | | Fingerstick | performed at [facility];[address] | | LAB | | | | [address];[place] | | | | | | [address] | | | | + + + [...] | | | Fingerstick | performed at [facility];[address] | | LAB | | | | [address];[place], [place] | | | | | | [address] | | | | + + + [...] | | | | [facility], [address] [facility] | | | | | | [place] | | | | | | [address] | | | | + + + + + + | RED CELL | 4.31Comment: Testing | 4.20 - 5.70 | EXTERNAL | | | COUNT | performed at [facility], [address] | M/uL | LAB | | | | [address], | | | | | | [place] [address] | | | | + + + + + + | Hgb | 12.3 (L)Comment: Testing | 13.2 - 17.0 | EXTERNAL | | | | performed at [facility], [address] | g/dL | LAB | | | | [address], | | | | | | [place] [address] | | | | + + + + + + | Hematocrit, | 36.4 (L)Comment: Testing | 39.0 - 50.0 % | EXTERNAL | | | POC | performed at [facility], [address] | | LAB | | | | [address], | | | | | | [place] [address] | | | | + + + + + + | MCV | 84.5Comment: Testing | 80.0 - 100.0 fl | EXTERNAL | | | | performed at [facility], [address] | | LAB | | | [address], | | | | | | [place] [address] | | | | + + + + + + | MCH | 28.5Comment: Testing | 27.0 - 34.0 pg | EXTERNAL | | | | performed at [facility], [address] | | LAB | | | | [address], | | | | | | [place] [address] | | | | + + + + + + | MCHC | 33.8Comment: Testing | 32.0 - 35.5 | EXTERNAL | | | | performed at [facility], [address] | g/dL | LAB | | | | [address], | | | | | | [place] [address] | | | | + + + + + + | RDW-CV | 42.9Comment: Testing | 37 - 53 fl | EXTERNAL | | | | performed at [facility], [address] | | LAB | | | | [address], | | | | | | [place] [address] | | | | + + + + + + | Platelet | 307Comment: Testing | 150 - 400 K/uL | EXTERNAL | | | Count | performed at [facility], [address] | | LAB | | | Plasma | [address], | | | | | | [place] [address] | | | | + + + + + + | MPV | 8.0Comment: Testing | fl | EXTERNAL | | | | performed at [facility], [address] | | LAB | | | | [address], | | | | | | [place] [address] | | | | + + + + + + | Differentia | AUTOMATEDComment: | | EXTERNAL | | | l Type | Testing performed at | | LAB | | | | [facility], [address] | | | | | | [place] | | | | | | [address] | | | | + + + + + + | % Segmented | 85.00Comment: Testing | % | EXTERNAL | | | | performed at [facility], [address] | | LAB | | | Neutrophils | [address], | | | | | | [place] [address] | | | | + + + + + + | % | 7.15Comment: Testing | % | EXTERNAL | | | Lymphocytes | performed at [facility], [address] | | LAB | | | | [address], | | | | | | [place] [address] | | | | + + + + + + | % Monocytes | 5.39Comment: Testing | % | EXTERNAL | | | | performed at [facility], [address] | | LAB | | | | [address], | | | | | | [place] [address] | | | | + + + + + + | % | 1.86Comment: Testing | % | EXTERNAL | | | Eosinophils | performed at [facility], [address] | | LAB | | | [address], | | | | | | [place] [address] | | | | + + + + + + | % Basophils | 0.60Comment: Testing | % | EXTERNAL | | | | performed at [facility], [address] | | LAB | | | | [address], | | | | | | [place] [address] | | | | + + + + + + | Absolute | 13.51 (H)Comment: | 1.90 - 7.40 | EXTERNAL | | | Segmented | Testing performed at | K/uL | LAB | | | Neutrophils | [facility], [address] | | | | | | [place] | | | | | | [address] | | | | + + + + + + | Absolute | 1.14Comment: Testing | 1.00 - 3.90 | EXTERNAL | | | Lymphocytes | performed at [facility], [address] | K/uL | LAB | | | | [address], | | | | | | [place] [address] | | | | + + + + + + | Absolute | 0.86 (H)Comment: Testing | 0.00 - 0.80 | EXTERNAL | | | Monocytes | performed at [facility], [address] | K/uL | LAB | | | | [address], | | | | | | [place] [address] | | | | + + + + + + | Absolute | 0.30Comment: Testing | 0.00 - 0.50 | EXTERNAL | | | Eosinophils | performed at [facility], [address] | K/uL | LAB | | | | [address], | | | | | | [place] [address] | | | | + + + + + + | Absolute | 0.10Comment: Testing | 0.00 - 0.10 | EXTERNAL | | | Basophils | performed at [facility], [address] | K/uL | LAB | | | | [address], | | | | | | [place] [address] | | | | + + + [...] at [facility], [address] | mmol/L | LAB | | | | [address], | | | | | | [place] [address] | | | | + + + + + + | K | 4.0Comment: Testing | 3.5 - 4.9 | EXTERNAL | | | | performed at [facility], [address] | mmol/L | LAB | | | | [address], | | | | | | [place] [address] | | | | + + + [...] | | | | [place] [address] | | | | + + + + + + | Anion Gap | 14Comment: Testing | 5 - 20 mmol/L | EXTERNAL | | | | performed at [facility], [address] | | LAB | | | | [address], | | | | | | [place] [address] | | | | + + + + + + | Glucose, | 207 (H)Comment: Testing | 65 - 99 mg/dL | EXTERNAL | | | Fasting | performed at [facility], [address] | | LAB | | | | [address], | | | | | | [place] [address] | | | | + + + + + + | BUN | 7 (L)Comment: Testing | 8 - 25 mg/dL | EXTERNAL | | | | performed at [facility], [address] | | LAB | | | | [address], | | | | | | [place] [address] | | | | + + + + + + | Creatinine | 0.9Comment: Testing | 0.70 - 1.30 | EXTERNAL | | | | performed at [facility], [address] | mg/dL | LAB | | | | [address], | | | | | | [place] [address] | | | | + + + + + + | BUN/Creatin | 8Comment: Testing | | EXTERNAL | | | ine Ratio | performed at [facility], [address] | | LAB | | | | [address], | | | | | | [place] [address] | | | | + + + + + + | Calcium | 8.2 (L)Comment: Testing | 8.5 - 10.5 | EXTERNAL | | | | performed at [facility], [address] | mg/dL | LAB | | | | [facility] [address], | | | | | | [place] [address] | | | | + + + [...] W | | | | | | [facility] [address], | | | | | | [place] [address] | | | | + + + [...] | | | Fingerstick | performed at [facility];[address] | | LAB | | | | [address];[place], [place] | | | | | | [address] | | | | + + + [...] with a red-brown discoloration of the bone. [employer] | | | sections are submitted in cassette B1 and placed into decal prior to | | | processing. [facility] MICROSCOPIC EXAMINATION: A-B. Histologic | | | sections of all submitted blocks are examined by light microscopy. | | | These findings, together with the gross examination, support the | | | pathologic diagnosis. PERFORMING LABORATORY: Professional | | | interpretation and technical preparation was performed by [facility] | | | [facility], [address], | | | [place] [address] (Quality Lead: Rafat Lorenzo M.D.; [facility]#: | | | [id number]). Diagnostician: Isi Gore MD Pathologist | | [...] | | | Fingerstick | performed at [facility];[address] | | LAB | | | | [address];[place] | | | | | | [address] | | | | + + + [...] | | | Fingerstick | performed at [facility];[address] | | LAB | | | | [address];[place], [place] | | | | | | [address] | | | | + + + [...] | | | Fingerstick | performed at [facility];[address] | | LAB | | | | [address];[place] | | | | | | [address] | | | | + + + [...] EXTERNAL | | | | performed at [facility];[address] | | LAB | | | | [address];[place] | | | | | | [address] | | | | + + + + + + | PCO2 ART | 32 (L)Comment: Testing | 35 - 45 mmHg | EXTERNAL | | | | performed at [facility];[address] | | LAB | | | | [address];[place] | | | | | | [address] | | | | + + + + + + | PO2 ART | 81Comment: Testing | 80 - 105 mmHg | EXTERNAL | | | | performed at [facility];[address] | | LAB | | | | [address];[place] | | | | | | [address] | | | | + + + + + + | Lactate, | <0.30 (L)Comment: | 0.36 - 1.25 | EXTERNAL | | | Arterial | Testing performed at | mmol/L | LAB | | | | [address] | | | [address];[place] [address] | | | | + + + + + + | HCO3 ART | 19 (L)Comment: Testing | 22 - 26 mmol/L | EXTERNAL | | | | performed at [facility];[address] | | LAB | | | | [address];[place] | | | | | | [address] | | | | + + + + + + | POC | 20 (L)Comment: Testing | 23 - 27 mEq/L | EXTERNAL | | | APPEARANCE | performed at [facility];[address] | | LAB | | | UA | [address];[place] | | | | | | [address] | | | | + + + + + + | Base | 6 (H)Comment: Testing | 0.0 - 2.0 | EXTERNAL | | | deficit | performed at [facility];[address] | mmol/L | LAB | | | | [address];[place] | | | | | | [address] | | | | + + + + + + | O2 SAT ART | 96Comment: Testing | 95 - 98 % | EXTERNAL | | | | performed at [facility];[address] | | LAB | | | | [address];[place] | | | | | | [address] | | | | + + + + + + | FiO2, POC | 21Comment: Testing | % | EXTERNAL | | | | performed at [facility];[address] | | LAB | | | | [address];[place] | | | | | | [address] | | | | + + + [...] EXTERNAL | | | | performed at [facility];[address] | mmol/L | LAB | | | | [address];[place], [place] | | | | | | [address] | | | | + + + [...] | | | Fingerstick | performed at [facility];8 | | LAB | | | | [address];[place], [place] | | | | | | [address] | | | | + + + [...] | | | | [place] [address] | | | | + + + + + + | Clarity | CLEARComment: Testing | | EXTERNAL | | | | performed at [facility], [address] | | LAB | | | | [address], | | | | | | [place] [address] | | | | + + + + + + | Specific | 1.022Comment: Testing | 1.002 - 1.030 | EXTERNAL | | | [place] | performed at [facility], [address] | | LAB | | | | [address], | | | | | | [place] [address] | | | | + + + + + + | Leukocyte | NEGATIVEComment: | | EXTERNAL | | | Esterase, | Testing performed at | | LAB | | | Urine | [facility], [address] | | | | | | [place] | | | | | | [address] | | | | + + + + + + | Nitrite, | NEGATIVEComment: Testing | | EXTERNAL | | | Urine | performed at [facility], [address] | | LAB | | | | [address], | | | | | | [place] [address] | | | | + + + + + + | Urobilinoge | NORMALComment: Testing | mg/dL | EXTERNAL | | | n, Urine | performed at [facility], [address] | | LAB | | | | [address], | | | | | | [place] [address] | | | | + + + + + + | Protein, | NEGATIVEComment: Testing | mg/dL | EXTERNAL | | | Urine | performed at [facility], [address] | | LAB | | | | [address], | | | | | | [place] [address] | | | | + + + + + + | pH, Urine | 6.0Comment: Testing | 5.0 - 8.0 | EXTERNAL | | | | performed at [facility], [address] | | LAB | | | | [address], | | | | | | [place] [address] | | | | + + + + + + | Blood, | NEGATIVEComment: Testing | | EXTERNAL | | | Urine | performed at [facility], [address] | | LAB | | | | [address], | | | | | | [place] [address] | | | | + + + + + + | Ketones | NEGATIVEComment: Testing | mg/dL | EXTERNAL | | | | performed at [facility], [address] | | LAB | | | | [address], | | | | | | [place] [address] | | | | + + + + + + | Bilirubin, | NEGATIVEComment: Testing | | EXTERNAL | | | Urine | performed at [facility], [address] | | LAB | | | | [address], | | | | | | [place] [address] | | | | + + + + + + | Glucose, | >500 (A)Comment: Testing | mg/dL | EXTERNAL | | | Urine | performed at [facility], [address] | | LAB | | | | [address], | | | | | | [place] [address] | | | | + + + [...] | | LAB | | | | [facility];[address] | | | [address];[place] [address] | | | | + + + + + + | PCO2 ART | 56 (H)Comment: Testing | 35 - 45 mmHg | EXTERNAL | | | | performed at [facility];[address] | | LAB | | | | [address];[place] | | | | | | [address] | | | | + + + + + + | PO2 ART | 74 (L)Comment: Testing | 80 - 105 mmHg | EXTERNAL | | | | performed at [facility];[address] | | LAB | | | | [address];[place] | | | | | | [address] | | | | + + + + + + | Lactate, | 7.11 (H)Comment: Testing | 0.36 - 1.25 | EXTERNAL | | | Arterial | performed at [facility];[address] | mmol/L | LAB | | | | [address];[place] | | | | | | [address] | | | | + + + + + + | HCO3 ART | 9 (L)Comment: Testing | 22 - 26 mmol/L | EXTERNAL | | | | performed at [facility];[address] | | LAB | | | | [address];[place] | | | | | | [address] | | | | + + + + + + | POC | 11 (L)Comment: Testing | 23 - 27 mEq/L | EXTERNAL | | | APPEARANCE | performed at [facility];[address] | | LAB | | | UA | [address];[place] | | | | | | [address] | | | | + + + + + + | Base | 25 (H)Comment: Testing | 0.0 - 2.0 | EXTERNAL | | | deficit | performed at [facility];[address] | mmol/L | LAB | | | | [address];[place] | | | | | | [address] | | | | + + + + + + | O2 SAT ART | 77 (L)Comment: Testing | 95 - 98 % | EXTERNAL | | | | performed at [facility];[address] | | LAB | | | | [address];[place] | | | | | | [address] | | | | + + + + + + | FiO2, POC | 100Comment: Testing | % | EXTERNAL | | | | performed at [facility];[address] | | LAB | | | | [address] [address];[place] | | | | | | [address] | | | | + + + [...] [place] | | | | | | [address] | | | | + + + + + + | RED CELL | 4.04 (L)Comment: Testing | 4.20 - 5.70 | EXTERNAL | | | COUNT | performed at [facility], [address] | M/uL | LAB | | | | [address], | | | | | | [place] [address] | | | | + + + + + + | Hgb | 11.4 (L)Comment: Testing | 13.2 - 17.0 | EXTERNAL | | | | performed at [facility], [address] | g/dL | LAB | | | | [address], | | | | | | [place] [address] | | | | + + + + + + | Hematocrit, | 35.1 (L)Comment: Testing | 39.0 - 50.0 % | EXTERNAL | | | POC | performed at [facility], [address] | | LAB | | | | [address], | | | | | | [place] [address] | | | | + + + + + + | MCV | 86.7Comment: Testing | 80.0 - 100.0 fl | EXTERNAL | | | | performed at [facility], [address] | | LAB | | | | [address], | | | | | | [place] [address] | | | | + + + + + + | MCH | 28.2Comment: Testing | 27.0 - 34.0 pg | EXTERNAL | | | | performed at [facility], [address] | | LAB | | | [address], | | | | | | [place] [address] | | | | + + + + + + | MCHC | 32.5Comment: Testing | 32.0 - 35.5 | EXTERNAL | | | | performed at [facility], [address] | g/dL | LAB | | | | [address], | | | | | | [place] [address] | | | | + + + + + + | RDW-CV | 42.0Comment: Testing | 37 - 53 fl | EXTERNAL | | | | performed at [facility], [address] | | LAB | | | | [address], | | | | | | [place] [address] | | | | + + + + + + | Platelet | 262Comment: Testing | 150 - 400 K/uL | EXTERNAL | | | Count | performed at [facility], [address] | | LAB | | | Plasma | [address], | | | | | | [place] [address] | | | | + + + + + + | MPV | 8.4Comment: Testing | fl | EXTERNAL | | | | performed at [facility], [address] | | LAB | | | | [address], | | | | | | [place] [address] | | | | + + + + + + | Differentia | AUTOMATEDComment: | | EXTERNAL | | | l Type | Testing performed at | | LAB | | | | [facility], [address] | | | | | | [place] | | | | | | [address] | | | | + + + + + + | % Segmented | 82.60Comment: Testing | % | EXTERNAL | | | | performed at [facility], [address] | | LAB | | | Neutrophils | [address], | | | | | | [place] [address] | | | | + + + + + + | % | 7.47Comment: Testing | % | EXTERNAL | | | Lymphocytes | performed at [facility], [address] | | LAB | | | | [address], | | | | | | [place] [address] | | | | + + + + + + | % Monocytes | 6.29Comment: Testing | % | EXTERNAL | | | | performed at [facility], [address] | | LAB | | | | [address], | | | | | | [place] [address] | | | | + + + + + + | % | 3.29Comment: Testing | % | EXTERNAL | | | Eosinophils | performed at [facility], [address] | | LAB | | | | [address], | | | | | | [place] [address] | | | | + + + + + + | % Basophils | 0.35Comment: Testing | % | EXTERNAL | | | | performed at [facility], [address] | | LAB | | | | [address], | | | | | | [place] [address] | | | | + + + + + + | Absolute | 13.94 (H)Comment: | 1.90 - 7.40 | EXTERNAL | | | Segmented | Testing performed at | K/uL | LAB | | | Neutrophils | [facility], [address] | | | | | | [place] | | | | | | [address] | | | | + + + + + + | Absolute | 1.26Comment: Testing | 1.00 - 3.90 | EXTERNAL | | | Lymphocytes | performed at [facility], [address] | K/uL | LAB | | | | [address], | | | | | | [place] [address] | | | | + + + + + + | Absolute | 1.06 (H)Comment: Testing | 0.00 - 0.80 | EXTERNAL | | | Monocytes | performed at [facility], [address] | K/uL | LAB | | | | [address], | | | | | | [place] [address] | | | | + + + + + + | Absolute | 0.56 (H)Comment: Testing | 0.00 - 0.50 | EXTERNAL | | | Eosinophils | performed at [facility], [address] | K/uL | LAB | | | | [address], | | | | | | [place] [address] | | | | + + + + + + | Absolute | 0.06Comment: Testing | 0.00 - 0.10 | EXTERNAL | | | Basophils | performed at [facility], [address] | K/uL | LAB | | | | [address], | | | | | | [place] [address] | | | | + + + [...] [address], | | | | | | [place] [address] | | | | + + + [...] | | performed at [facility], [address] | | LAB | | | | [address], | | | | | | [place] [address] | | | | + + + [...] | EXTERNAL | | | A1c | [place] Diabetes | | LAB | | | [...] | performed at [facility], [address] | | | | | | [address] [facility], | | | | | | [place] [address] | | | | + + + [...] W | | | | | | [facility], | | | | | | [place] [address] | | | | + + + [...] | | | | [place] [address] | | | | + + + + + + | K | 4.6Comment: Testing | 3.5 - 4.9 | EXTERNAL | | | | performed at [facility], [address] | mmol/L | LAB | | | | [address], | | | | | | [place] [address] | | | | + + + + + + | Cl | 103Comment: Testing | 99 - 109 mmol/L | EXTERNAL | | | | performed at [facility], [address] | | LAB | | | | [address], | | | | | | [place] [address] | | | | + + + + + + | CO2 | 22 (L)Comment: Testing | 23 - 32 mmol/L | EXTERNAL | | | | performed at [facility], [address] | | LAB | | | | [address], | | | | | | [place] [address] | | | | + + + + + + | Anion Gap | 14Comment: Testing | 5 - 20 mmol/L | EXTERNAL | | | | performed at [facility], [address] | | LAB | | | | [address], | | | | | | [place] [address] | | | | + + + + + + | Glucose, | 392 (H)Comment: Testing | 65 - 99 mg/dL | EXTERNAL | | | Fasting | performed at [facility], [address] | | LAB | | | | [address], | | | | | | [place] [address] | | | | + + + + + + | BUN | 12Comment: Testing | 8 - 25 mg/dL | EXTERNAL | | | | performed at [facility], [address] | | LAB | | | | [address], | | | | | | [place] [address] | | | | + + + + + + | Creatinine | 1.0Comment: Testing | 0.70 - 1.30 | EXTERNAL | | | | performed at [facility], [address] | mg/dL | LAB | | | | [address], | | | | | | [place] [address] | | | | + + + + + + | BUN/Creatin | 12Comment: Testing | | EXTERNAL | | | ine Ratio | performed at [facility], [address] | | LAB | | | | [address], | | | | | | [place] [address] | | | | + + + + + + | Calcium | 7.6 (L)Comment: Testing | 8.5 - 10.5 | EXTERNAL | | | | performed at [facility], [address] | mg/dL | LAB | | | | [address], | | | | | | [place] [address] | | | | + + + + + + | Protein, | 6.4Comment: Testing | 6.3 - 8.2 g/dL | EXTERNAL | | | Total | performed at [facility], [address] | | LAB | | | | [address], | | | | | | [place] [address] | | | | + + + + + + | Albumin | 2.2 (L)Comment: Testing | 3.6 - 5.0 g/dL | EXTERNAL | | | | performed at [facility], [address] | | LAB | | | | [address], | | | | | | [place] [address] | | | | + + + + + + | Globulin | 4.2Comment: Testing | 1.3 - 4.9 g/dL | EXTERNAL | | | | performed at [facility], [address] | | LAB | | | | [address], | | | | | | [place] [address] | | | | + + + + + + | A/G Ratio | 0.5 (L)Comment: Testing | 1.0 - 2.4 | EXTERNAL | | | | performed at [facility], [address] | | LAB | | | | [address], | | | | | | [place] [address] | | | | + + + + + + | Bilirubin | 0.6Comment: Testing | 0.1 - 1.5 mg/dL | EXTERNAL | | | Total | performed at [facility], [address] | | LAB | | | | [address], | | | | | | [place] [address] | | | | + + + + + + | ALP, | 182 (H)Comment: Testing | 35 - 115 U/L | EXTERNAL | | | External | performed at [facility], [address] | | LAB | | | | [address], | | | | | | [place] [address] | | | | + + + + + + | AST | 9 (L)Comment: Testing | 10 - 45 U/L | EXTERNAL | | | | performed at [facility], [address] | | LAB | | | | [address], | | | | | | [place] [address] | | | | + + + + + + | ALT | 16Comment: Testing | 10 - 65 U/L | EXTERNAL | | | | performed at [facility], [address] | | LAB | | | | [address], | | | | | | [place] [address] | | | | + + + [...] | | | | | | [address], | | | | | | [place] [address] | | | | + + + [...] | | | Fingerstick | performed at [facility];[address] | | LAB | | | | [address];[place], [place] | | | | | | [address] | | | | + + + [...] EXTERNAL LAB | | Testing performed at [facility];[address] [place] [address];[place] [address] MRSA PCR | | | POSITIVE for MRSA by PCRAbnormal | | | Testing performed at [address];[place] [address] | | + + + + +---------+ [...] | | | Fingerstick | performed at [facility];[address] | | LAB | | | | [address];[place] | | | | | | [address] | | | | + + + [...] EXTERNAL | | | | performed at [facility];[address] | mmol/L | LAB | | | | [address];[place] | | | | | | [address] | | | | + + + + + + | K | 4.0Comment: Testing | 3.5 - 4.9 | EXTERNAL | | | | performed at [facility];[address] | mmol/L | LAB | | | | [address];[place] | | | | | | [address] | | | | + + + + + + | Cl | 104Comment: Testing | 99 - 109 mmol/L | EXTERNAL | | | | performed at [facility];[address] | | LAB | | | | [address];[place] | | | | | | [address] | | | | + + + + + + | CO2 | 21 (L)Comment: Testing | 23 - 32 mmol/L | EXTERNAL | | | | performed at [facility];[address] | | LAB | | | | [address];[place] | | | | | | [address] | | | | + + + + + + | Anion Gap | 13Comment: Testing | 5 - 20 mmol/L | EXTERNAL | | | | performed at [facility];[address] | | LAB | | | | [address];[place] | | | | | | [address] | | | | + + + + + + | Glucose, | 254 (H)Comment: Testing | 65 - 99 mg/dL | EXTERNAL | | | Fasting | performed at [facility];[address] | | LAB | | | | [address];[place] | | | | | | [address] | | | | + + + + + + | BUN | 12Comment: Testing | 8 - 25 mg/dL | EXTERNAL | | | | performed at [facility];[address] | | LAB | | | | [address];[place] | | | | | | [address] | | | | + + + + + + | Creatinine | 0.95Comment: Testing | 0.70 - 1.30 | EXTERNAL | | | | performed at [facility];[address] | mg/dL | LAB | | | | [address];[place] | | | | | | [address] | | | | + + + + + + | BUN/Creatin | 13Comment: Testing | | EXTERNAL | | | ine Ratio | performed at [facility];[address] | | LAB | | | | [address];[place] | | | | | | [address] | | | | + + + + + + | Calcium | 6.9 (L)Comment: Testing | 8.5 - 10.5 | EXTERNAL | | | | performed at [facility];[address] | mg/dL | LAB | | | | [address];[place] | | | | | | [address] | | | | + + + + + + | Protein, | 6.3Comment: Testing | 6.3 - 8.2 g/dL | EXTERNAL | | | Total | performed at [facility];[address] | | LAB | | | | [address];[place] | | | | | | [address] | | | | + + + + + + | Albumin | 2.1 (L)Comment: Testing | 3.6 - 5.0 g/dL | EXTERNAL | | | | performed at [facility];[address] | | LAB | | | | [address];[place] | | | | | | [address] | | | | + + + + + + | Globulin | 4.2Comment: Testing | 1.3 - 4.9 g/dL | EXTERNAL | | | | performed at [facility];[address] | | LAB | | | | [address];[place] | | | | | | [address] | | | | + + + + + + | A/G Ratio | 0.5 (L)Comment: Testing | 1.0 - 2.4 | EXTERNAL | | | | performed at [facility];[address] | | LAB | | | | [address];[place] | | | | | | [address] | | | | + + + + + + | Bilirubin | 0.4Comment: Testing | 0.1 - 1.5 mg/dL | EXTERNAL | | | Total | performed at [facility];[address] | | LAB | | | | [address];[place] | | | | | | [address] | | | | + + + + + + | ALP, | 181 (H)Comment: Testing | 35 - 115 U/L | EXTERNAL | | | External | performed at [facility];[address] | | LAB | | | | [address];[place] | | | | | | [address] | | | | + + + + + + | AST | 10Comment: Testing | 10 - 45 U/L | EXTERNAL | | | | performed at [facility];[address] | | LAB | | | | [address];[place] | | | | | | [address] | | | | + + + + + + | ALT | 14Comment: Testing | 10 - 65 U/L | EXTERNAL | | | | performed at [facility];[address] | | LAB | | | | [address];[place] | | | | | | [address] | | | | + + + [...] | | | | | | at [facility];[address] | | | [address];[place] [address] | | | | + + + [...] 9:30AM Referring Provider Line: | | | [phone] ID: [id number] | | + + + [...] | | 2016 9:30AM Referring Provider Line: [phone] ID: [id number] | + + POC Glucose (12/14/2016 11:34 PM PDT) + + + + + + | Component | Value | Ref Range | Performed | Pathologist | | | | | At | Signature | + + + + + + | Glucose, | 172 (H)Comment: Testing | 65 - 99 mg/dL | EXTERNAL | | | Fingerstick | performed at [facility];[address] | | LAB | | | | [address];[place], [place] | | | | | | [address] | | | | + + + [...] EXTERNAL | | | | performed at [facility];[address] | mmol/L | LAB | | | | [address];[place], [place] | | | | | | [address] | | | | + + + [...] | | | Blood | performed at [facility];[address] | | LAB | | | | [address];[place], [place] | | | | | | [address] | | | | + + + [...] EXTERNAL | | | | performed at [facility] | | LAB | | | | [address];[place] | | | | | | [address] | | | | + + + [...] K/uL | LAB | | | | [facility];[address];[place] [address] | | | | + + + + + + | RED CELL | 4.20Comment: Testing | 4.20 - 5.70 | EXTERNAL | | | COUNT | performed at [facility];[address] | M/uL | LAB | | | | [address];[place] | | | | | | [address] | | | | + + + + + + | Hgb | 12.4 (L)Comment: Testing | 13.2 - 17.0 | EXTERNAL | | | | performed at [facility];888 | g/dL | LAB | | | | [address];[place] | | | | | | [address] | | | | + + + + + + | Hematocrit, | 36.3 (L)Comment: Testing | 39.0 - 50.0 % | EXTERNAL | | | POC | performed at [facility];[address] | | LAB | | | | [address];[place] | | | | | | [address] | | | | + + + + + + | MCV | 86.5Comment: Testing | 80.0 - 100.0 fl | EXTERNAL | | | | performed at [facility];[address] | | LAB | | | | [address];[place] | | | | | | [address] | | | | + + + + + + | MCH | 29.4Comment: Testing | 27.0 - 34.0 pg | EXTERNAL | | | | performed at [facility];[address] | | LAB | | | | [address];[place] | | | | | | [address] | | | | + + + + + + | MCHC | 34.0Comment: Testing | 32.0 - 35.5 | EXTERNAL | | | | performed at [facility];[address] | g/dL | LAB | | | | [address];[place] | | | | | | [address] | | | | + + + + + + | RDW-CV | 42.9Comment: Testing | 37 - 53 fl | EXTERNAL | | | | performed at [facility];[address] | | LAB | | | | [address];[place] | | | | | | [address] | | | | + + + + + + | Platelet | 258Comment: Testing | 150 - 400 K/uL | EXTERNAL | | | Count | performed at [facility];[address] | | LAB | | | Plasma | [address];[place] | | | | | | [address] | | | | + + + + + + | MPV | 8.3Comment: Testing | fl | EXTERNAL | | | | performed at [facility];[address] | | LAB | | | | [address];[place] | | | | | | [address] | | | | + + + + + + | Differentia | AUTOMATEDComment: | | EXTERNAL | | | l Type | Testing performed at | | LAB | | | | [facility];[address];[place] [address] | | | | + + + + + + | % Segmented | 87.43Comment: Testing | % | EXTERNAL | | | | performed at [facility];[address] | | LAB | | | Neutrophils | [address];[place] | | | | | | [address] | | | | + + + + + + | % | 5.56Comment: Testing | % | EXTERNAL | | | Lymphocytes | performed at [facility];[address] | | LAB | | | | [address];[place] | | | | | | [address] | | | | + + + + + + | % Monocytes | 4.36Comment: Testing | % | EXTERNAL | | | | performed at [facility];[address] | | LAB | | | | [address];[place] | | | | | | [address] | | | | + + + + + + | % | 1.84Comment: Testing | % | EXTERNAL | | | Eosinophils | performed at [facility];[address] | | LAB | | | | [address];[place] | | | | | | [address] | | | | + + + + + + | % Basophils | 0.81Comment: Testing | % | EXTERNAL | | | | performed at [facility];[address] | | LAB | | | | [address];[place] | | | | | | [address] | | | | + + + + + + | Absolute | 17.02 (H)Comment: | 1.90 - 7.40 | EXTERNAL | | | Segmented | Testing performed at | K/uL | LAB | | | Neutrophils | [facility];[address];[place] [address] | | | | + + + + + + | Absolute | 1.08Comment: Testing | 1.00 - 3.90 | EXTERNAL | | | Lymphocytes | performed at [facility];[address] | K/uL | LAB | | | | [address];[place] | | | | | | [address] | | | | + + + + + + | Absolute | 0.85 (H)Comment: Testing | 0.00 - 0.80 | EXTERNAL | | | Monocytes | performed at [facility];[address] | K/uL | LAB | | | | [address];[place] | | | | | | [address] | | | | + + + + + + | Absolute | 0.36Comment: Testing | 0.00 - 0.50 | EXTERNAL | | | Eosinophils | performed at [facility];[address] | K/uL | LAB | | | | [address];[place] | | | | | | [address] | | | | + + + + + + | Absolute | 0.16 (H)Comment: Testing | 0.00 - 0.10 | EXTERNAL | | | Basophils | performed at [facility];[address] | K/uL | LAB | | | | [address];[place] | | | | | | [address] | | | | + + + + + + | RBC | RBC AND PLT MORPHOLOGY | | EXTERNAL | | | Morphology | APPEAR NORMALComment: | | LAB | | | | Testing performed at | | | | | | [facility];[address];[place] [address] | | | | + + + + + + | Platelet | ADEQUATEComment: Testing | | EXTERNAL | | | Estimate | performed at [facility];[address] | | LAB | | | | [address];[place] | | | | | | [address] | | | | + + + + + + | Differentia | SLIDE SCANNED, AGREES | | EXTERNAL | | | l Comments | WITH AUTOMATED | | LAB | | | | RESULTS.Comment: Testing | | | | | | performed at [facility];[address] | | | | | | [address];[place], [place] | | | | | | [address] | | | | + + + [...] EXTERNAL | | | | performed at [facility] | | LAB | | | | [address];[place], [place] | | | | | | [address] | | | | + + + [...] EXTERNAL | | | | performed at [facility];888 | mmol/L | LAB | | | | [address];[place] | | | | | | [address] | | | | + + + + + + | K | 5.1 (H)Comment: MODERATE | 3.5 - 4.9 | EXTERNAL | | | | HEMOLYSISTesting | mmol/L | LAB | | | | performed at [facility];[address] | | | | | | [address];[place] | | | | | | [address] | | | | + + + + + + | Cl | 93 (L)Comment: Testing | 99 - 109 mmol/L | EXTERNAL | | | | performed at [facility];[address] | | LAB | | | | [address];[place] | | | | | | [address] | | | | + + + + + + | CO2 | 23Comment: Testing | 23 - 32 mmol/L | EXTERNAL | | | | performed at [facility];[address] | | LAB | | | | [address];[place] | | | | | | [address] | | | | + + + + + + | Anion Gap | 14Comment: Testing | 5 - 20 mmol/L | EXTERNAL | | | | performed at [facility];[address] | | LAB | | | | [address];[place] | | | | | | [address] | | | | + + + + + + | Glucose, | 635 (HH)Comment: CALLED | 65 - 99 mg/dL | EXTERNAL | | | Fasting | DR LING COUCH | | LAB | | | | AT 2216 BY RHREAD BACK | | | | | | RESULTS VERIFIEDTesting | | | | | | performed at [facility];[address] | | | | | | [address];[place] | | | | | | [address] | | | | + + + + + + | BUN | 13Comment: Testing | 8 - 25 mg/dL | EXTERNAL | | | | performed at [facility];[address] | | LAB | | | | [address];[place] | | | | | | [address] | | | | + + + + + + | Creatinine | 1.4 (H)Comment: Testing | 0.70 - 1.30 | EXTERNAL | | | | performed at [facility];888 | mg/dL | LAB | | | | [address];[place] | | | | | | [address] | | | | + + + + + + | BUN/Creatin | 10Comment: Testing | | EXTERNAL | | | ine Ratio | performed at [facility];[address] | | LAB | | | | [address];[place] | | | | | | [address] | | | | + + + + + + | Calcium | 7.9 (L)Comment: Testing | 8.5 - 10.5 | EXTERNAL | | | | performed at [facility];888 | mg/dL | LAB | | | | [address];[place] | | | | | | [address] | | | | + + + + + + | Protein, | 7.7Comment: Testing | 6.3 - 8.2 g/dL | EXTERNAL | | | Total | performed at [facility];[address] | | LAB | | | | [address];[place] | | | | | | [address] | | | | + + + + + + | Albumin | 2.6 (L)Comment: Testing | 3.6 - 5.0 g/dL | EXTERNAL | | | | performed at [facility];[address] | | LAB | | | | [address];[place] | | | | | | [address] | | | | + + + + + + | Globulin | 5.1 (H)Comment: Testing | 1.3 - 4.9 g/dL | EXTERNAL | | | | performed at [facility];[address] | | LAB | | | | [address];[place] | | | | | | [address] | | | | + + + + + + | A/G Ratio | 0.5 (L)Comment: Testing | 1.0 - 2.4 | EXTERNAL | | | | performed at [facility];[address] | | LAB | | | | [address];[place] | | | | | | [address] | | | | + + + + + + | Bilirubin | 0.6Comment: Testing | 0.1 - 1.5 mg/dL | EXTERNAL | | | Total | performed at [facility];[address] | | LAB | | | | [address];[place] | | | | | | [address] | | | | + + + + + + | ALP, | 259 (H)Comment: Testing | 35 - 115 U/L | EXTERNAL | | | External | performed at [facility];[address] | | LAB | | | | [address];[place] | | | | | | [address] | | | | + + + + + + | AST | 17Comment: MODERATE | 10 - 45 U/L | EXTERNAL | | | | HEMOLYSISTesting | | LAB | | | | performed at [facility];[address] | | | | | | [address];[place] | | | | | | [address] | | | | + + + + + + | ALT | 17Comment: Testing | 10 - 65 U/L | EXTERNAL | | | | performed at [facility];[address] | | LAB | | | | [address];[place] | | | | | | [address] | | | | + + + [...] | | | | | | at [facility];[address] [facility] | | | | | | [facility];[place] [address] | | | | + + + [...] type 2 diabetes mellitus with hyperglycemia, 

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
--- OUTSIDE RECORDS SUMMARY | ~2019-10-05 | XMS | Encounter Summary ---
Demographics + + + | Address | [address] | | | [place] [address] | + + + | Home Phone | | + + + | Preferred Language | Unknown | + + + | Marital Status | Single | + + + | Gnosticist Affiliation | 1077 | + + + [...] Team Providers + +------+ + | Care Loss Prevention Officer Name | Role | Phone | + +------+ + | Estrella Light PA-C | PCP | | + +------+ + Encounter Details +--------+---------+ + + + | Date | Type | Department | Care Team | Description | +--------+---------+ + + + | 04/12/ | Surgery | [facility] | Avi Forde MD | EGD / COLONOSCOPY - | | 2015 | | MED CTR MP INTRA OP | [address], [place] | DM (insulin) | | | | [address] | [address] [place] | | | | | [place] | [id number] | | | | | [address] | | | | | | [phone] | | | +--------+---------+ + + + [...]
--- OUTSIDE RECORDS SUMMARY | ~2019-10-05 | XMS | Encounter Summary ---
Demographics + + + | Address | [address] | | | [place] [address] | + + + | Home Phone | | + + + | Preferred Language | Unknown | + + + | Marital Status | Single | + + + | Mu-Ism Affiliation | 1077 | + + + | Race | Unknown | + + + | Ethnic Group | Unknown | + + + Author + + + | Author | [facility] | | | and [place] | + + + | Organization | [facility] | | | [...] Team Providers + +------+ + | Care Lmsw Name | Role | Phone | + +------+ + | Estrella Light PA-C | PCP | | + +------+ + Encounter Details +--------+ + + + + | Date | Type | Department | Care Team | Description | +--------+ + + + + | 09/22/ | Anesthesia | [facility] | Ilya Dodge | | | 2015 | Event | MED CTR MP INTRA OP | MD E[address]ie [address] | | | | | [address] | [facility] | | | | | [place] | [place] [address] | | | | | [address] | [phone] | | | | | [phone] | | | +--------+ + + + [...]
--- OUTSIDE RECORDS SUMMARY | ~2019-10-05 | XMS | Encounter Summary ---
Demographics + + + | Address | [address] | | | [place] [address] | + + + | Home Phone [...] Team Providers + +------+ + | Care Taker Away Name | Role | Phone | + +------+ + | Estrella Light PA-C | PCP | | + +------+ + Encounter Details +--------+ + + + + | Date | Type | Department | Care Team | Description | +--------+ + + + + | 09/04/ | Abstract | [facility] | Avi Forde MD | | | 2014 | | GASTROENTEROLOGY | [address], [place] | | | | | [address] [place] | [address] [place] | | | | | [address] [place], [place] | [address] | | | | | [address] | | | | | | [phone] | | | +--------+ + + + [...]
--- OUTSIDE RECORDS SUMMARY | ~2019-10-05 | XMS | Encounter Summary ---
Demographics + + + | Address | [address] | | | [place] [address] | + + + | Home Phone [...] Team Providers + +------+ + | Care Bar Supervisor Name | Role | Phone | [...] [facility] | Avi Forde MD | Hosp No Show | | 2015 | | GASTROENTEROLOGY | [address], [place] | (egds,colon) | | | | [address] [place] | [address] [place] | | | | | [address] [place], [place] | [address] | | | | | [address] | | | | | | [phone] | | | +--------+ + + + [...]
--- OUTSIDE RECORDS SUMMARY | ~2019-10-05 | XMS | Encounter Summary ---
Demographics + + + | Address | [address] | | | [place] [address] | + + + | Home Phone [...] | Author | [facility] | | | and [place] | + [...] | + + +---------+ + | Yasmany mSith | ECON | Unknown | | + + +---------+ + | Katherine Duran | ECON | Unknown | | + + +---------+ + | Sarah Hanson | ECON | Unknown | | + + +---------+ + Care Team Providers + +------+ + | Care Hand Hardener Name | Role | Phone | + +------+ + | Estrella Light PA-C | PCP | | + +------+ + Encounter Details +--------+ + + + + | Date | Type | Department | Care Team | Description | +--------+ + + + + | 05/12/ | Orders Only | [facility] | Provider, | | | 2019 | | SYSTEM GENERIC OP | [address] | | | | | [address] | [place] | | | | | [address] [place], [place] | [place] [address] | | | | | [address] | | | | | | [phone] | | | +--------+ + + + [...]
--- OUTSIDE RECORDS SUMMARY | ~2019-10-05 | XMS | Encounter Summary ---
Demographics + + + | Address | [address] | | | [place] [address] | + + + | Home Phone | | + + + | Preferred Language | Unknown | + + + | Marital Status | Single | + + + | Episcopal Affiliation | 1077 | + + + | Race | Unknown | + + + | Ethnic Group | Unknown | + + + Author + + + | Author | [facility] | | | and [place] | + + + | Organization | [facility] | | [...] Team Providers + +------+ + | Care Employment Representative Name | Role | Phone | + +------+ + | Estrella Light PA-C | PCP | | + +------+ + Encounter Details +--------+ + + + + | Date | Type | Department | Care Team | Description | +--------+ + + + + | 09/04/ | Abstract | [facility] | Avi Forde MD | | | 2014 | | GASTROENTEROLOGY | [address], [place] | | | | | [address] [place] | [address] [place] | | | | | [address] [place], [place] | [address] | | | | | [address] | | | | | | [phone] | | | +--------+ + + + [...]
--- OUTSIDE RECORDS SUMMARY | ~2019-10-05 | XMS | Encounter Summary ---
Demographics + + + | Address | [address] | | | [place] [address] | + + + | Home Phone [...] Team Providers + +------+ + | Care Tax Accountant Name | Role | Phone | + [...] antibody | [address], | | | | | positive | [place], [place] | [place] [address] | | | | | Chronic | [address] [place] | [place], | | | | | diarrhea | [place], [place] | [place] [address] | | | | | Procedures | [address] | Phone: | | | | | [place] | Phone: | [phone] | | | | | COLONOSCOPY | [phone] | Fax: | | | | | FLX DX | Fax: | [phone] | | | | | W/COLLJ SPEC | [phone] | | | | | | WHEN PFRMD | | | | | | | [place] | | | | | | | COLONOSCOPY | | | | | | | W/BIOPSY | | | | | | | SINGLE/MULTI | | | | | | | PLE [place] | | | | | | | COLSC FLX | | | | | | | W/RMVL OF | | | | | | | TUMOR POLYP | | | | | | | LESION SNARE | | | | | | | TQ [place] | | | | | | | ESOPHAGOGAST | | | | | | | RODUODENOSCO | | | | | | | PY TRANSORAL | | | | | | | DIAGNOSTIC | | | | | | | [place] EDG | | | | | | [...] 2015 | | GASTROENTEROLOGY | [address], [place] | (egd/colon ) | | | | [address] [place] | [address] [place], [place] | | | | | [address] [place], [place] | [address] | | | | | [address] | | | | | | [phone] | | | +--------+ + + + [...]
--- OUTSIDE RECORDS SUMMARY | ~2019-10-05 | XMS | Encounter Summary ---
Demographics + + + | Address | [address] | | | [place] [address] | + + + | Home Phone [...] Providers + +------+ + | Care Production Support Manager Name | Role | Phone | + +------+ + PCP | Unavailable | + +------+ + Encounter Details +--------+ + + + + | Date | Type | Department | Care Team | Description | +--------+ + + + + | 05/21/ | Hospital | [facility] | Unknown, | | | 1992 | Encounter | MED CTR XRAY [address] | MD [place] | | | | | [place] | [phone] | | | | | [place] [address] | | | | | | [phone] | | | +--------+ + + + [...]
--- OUTSIDE RECORDS SUMMARY | ~2019-10-05 | XMS | Encounter Summary ---
Demographics + + + | Address | [address] | | | [place] [address] | + + + | Home Phone [...] Team Providers + +------+ + | Care Kaiawhina Kura [place] Maori Name | Role | Phone | + [...] + + | 04/12/ | Telephone | [facility] | Avi Forde MD | Hosp No Show | | 2015 | | GASTROENTEROLOGY | [address], [place] | (egds,colon) | | | | [address] [place] | [address] [place] | | | | | [address] [place], [place] | [address] | | | | | [address] | | | | | | [phone] | | | +--------+ + + + [...]
--- OUTSIDE RECORDS SUMMARY | ~2019-10-05 | XMS | Encounter Summary ---
Demographics + + + | Address | [address] | | | [place] [address] | + + + | Home Phone [...] Team Providers + +------+ + | Care Criminal Lawyer Name | Role | Phone | + +------+ + | Estrella Light PA-C | PCP | | + +------+ + Encounter Details +--------+---------+ + + + | Date | Type | Department | Care Team | Description | +--------+---------+ + + + | 04/12/ | Surgery | [facility] | Avi Forde MD | EGD / COLONOSCOPY - | | 2015 | | MED CTR MP INTRA OP | [address], [place] | DM (insulin) | | | | [address] | [address] [place] | | | | | [place] | [id number] | | | | | [address] | | | | | | [phone] | | | +--------+---------+ + + + [...]
--- OUTSIDE RECORDS SUMMARY | ~2019-10-05 | XMS | Clinical Summary ---
Demographics + + + | Address | [address] [place] [address] RD | | | [place] [address] | + + + | Home Phone | | + + + | Preferred Language | Unknown | + + + | Marital Status | Single | + + + | Sabianist Affiliation | 1077 | + + + | Race | Unknown | + + + | Ethnic Group | Unknown | + + + Author + + + | Author | [facility] [facility] [facility] (Historical as of | | | 05-18-19) | + + + | Organization | [facility] (Historical as of | | | 05-18-19) [...] Team Providers + +------+ + | Care Order Processing Specialist Name | Role | Phone | [...] +------+-------+ + | MEDICAID | EASTER | [id number] | | | [address] | | | N | | | | [place], [place] | | | [place] | | | | [address] | | | LATHE OPERATOR | | | | | + +--------+ +------+-------+ + | [facility] | YELLOW | [id number] | | | | | PLANS | [...] | Self | [birth year] | Home: | [address] | | | al/Fam | | 1965 | [address] | [place], [place] | | | vikas | | | [address] | [address] | + +--------+ +--------+ + + | [employer] [facility] | Third | Self | [birth year] | Home: | [address] | | | [employer] Party | | 1964 | [address] | [place], [place] | | | Liabil | | | [address] | [address] | | | ity | | | | | + +--------+ +--------+ + +
--- OUTSIDE RECORDS SUMMARY | ~2019-10-05 | XMS | Encounter Summary ---
Demographics + + + | Address | [address] | | | [place] [address] | + + + | Home Phone [...] Team Providers + +------+ + | Care Side Trimmer Name | Role | Phone | + +------+ + PCP | Unavailable | + +------+ + Encounter Details +--------+ + + + + | Date | Type | Department | Care Team | Description | +--------+ + + + + | 07/19/ | Hospital | [facility] | | | | 1992 | Encounter | MED CTR MP INTRA OP | | | | | | [address] | | | | | | [place] | | | | | | [address] | | | | | | [phone] | | | +--------+ + + + [...]
--- OUTSIDE RECORDS SUMMARY | ~2019-10-05 | XMS | Encounter Summary ---
Demographics + + + | Address | [address] | | | [place] [address] | + + + | Home Phone [...] Providers + +------+ + | Care Bridge Operator Name | Role | Phone | + +------+ + | Estrella Light PA-C | PCP | | + +------+ + Encounter Details +--------+ + + + + | Date | Type | Department | Care Team | Description | +--------+ + + + + | 01/13/ | Hospital | [facility] | Cameron Lopez | | | 2018 - | Encounter | [facility] | MD Antolin Hill | | | | | CLINICAL DECISION | [place], [place] | | | 01/14/ | | UNIT [facility] | [address] | | | 2017 | | [place], [place] | | | | | | [address] | | | | | | [phone] | | | +--------+ + + + [...] 01/14/181931 Date of Service: 01/14/18899 Status: Signed Sensor Specialist: Abhinav Winters DO (Physician) The patient is 52 y.o. 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, presented to the emergency department of [facility] in [place] today with complaints of upper, sharp chest [...] not smoke. In the emergency department at [facility], EKG showed T inversions in lead [...] Date of Service: 04/15/18 0900 Status: Signed Sensor Specialist: Elizabeth Galvez, RN (Registered Nurse) Approached [...] 01/13/181399 Date of Service: 01/13/181399 Status: Signed Sensor Specialist: Rosalba Luo RPH (Pharmacist) Clinical Pharmacy [...] | | Basophils | performed at [facility], [address] | K/uL | LAB | | | | [place], | | | | | | [place] [address] | | | | + + + [...] | | | | [place] [address] | | | | + + + [...] | | | | performed at [facility], [address] | | LAB | | | | [place], | | | | | | [place] [address] | | | | + + + [...] | | | | performed at [facility], [address] | | LAB | | | | [place], | | | | | | [place] [address] | | | | + + + [...] | EXTERNAL | | | A1c | [place] [facility] | | LAB | | | [...] | | | | performed at [facility], [address] | | | | | | [facility], | | | | | | [place] [address] | | | | + + + [...] | | | Cholesterol | performed at [facility], [address] | | LAB | | | , | [place], | | | | | Calculated, | [place] [address] | | | | | External | [...] | | | | | at [facility], [address] | | | | | | [place], | | | | | | [place] [address] | | | | + + + [...] | | | Fingerstick | performed at [facility] | | LAB | | | | [address];[place], [place] | | | | | | [address] | | | | + + + [...] + | [facility]ically [facility] Epic environment | EXTERNAL LAB | [...] EXTERNAL | | | | performed at [facility];[address] | | LAB | | | | [address];[place], [place] | | | | | | [address] | | | | + + + [...] | | | Fingerstick | performed at [facility];[address] | | LAB | | | | [address];[place], [place] | | | | | | [address] | | | | + + + [...] | | | | | performed at [facility];[address] | | | | | | [address] [facility];[place], [place] | | | | | | [address] | | | | + + + [...] EXTERNAL | | | | performed at [facility];[address] | | LAB | | | | [address];[place] | | | | | | [address] | | | | + + + [...] | | | Fingerstick | performed at [facility];[address] | | LAB | | | | [address];[place] | | | | | | [address] | | | | + + + [...] | | | Fingerstick | performed at [facility];[address] | | LAB | | | | [address];[place] | | | | | | [address] | | | | + + + [...] | | | | | performed at [facility] | | | | | | [address] [facility];[place], [place] | | | | | | [address] | | | | + + + [...] EXTERNAL | | | | performed at [facility];[address] | | LAB | | | | [address];[place], [place] | | | | | | [address] | | | | + + + [...] TV A Star: 0.46 m/s TV Dec Craven: 2.14 m/s2 TV Dec Time: | | | 223.61 ms TV E Star: 0.47 m/s TV E/A Ratio: 1.03 | | | Sales Development Director: DIDI Authenticated by: Dereck Galicia Report | [...] (A-L): | | 16.36 ml/m2LAAs A2C: 13.19 [id number] A-L A2C: 34.91 mlLALs A2C: 4.23 cmLAAs A4C: | | 11.37 [id number] A-L A4C: 29.21 mlLALs A4C: 3.75 cmRAAd: 13.57 [id number] A-L: | | 35.22 mlRAEDV MOD: 30.46 mlRALd: 4.44 cmTAPSE: 1.67 cmHR: 82.18 BPMAV maxPG: | | 3.19 mmHgAV meanP.99 mmHgAV Vmax: 0.89 m/Simran Vmean: 0.69 m/Simran VTI: 18.16 | | cmAVA Vmax: 3.34 cm2AVA (VTI): 3.51 hi9YHDY Vmax: 0.00 cm2/m2AVAI (VTI): 0.00 | | cm2/m2LVCI Dopp: 2.41 l/hxqu9ZCZF Dopp: 5.00 l/minHR: 78.46 BPMLVOT maxP.34 | [...] 3 mmHgTV A Star: 0.46 m/sTV Dec Craven: 2.14 m/s2TV Dec Time: 223.61 | | msTV E Star: 0.47 m/sTV E/A Ratio: 1.03 Sales Development Director: Nishaticated by: Dereck | | KorimerlaReport Date/Time: [...] A Star: 0.46 m/s | |TV Dec Craven: 2.14 m/s2 | |TV Dec Time: 223.61 ms | |TV E Star: 0.47 m/s | |TV E/A Ratio: 1.03 | | | |Sales Development Director: GD | |Authenticated by: Dereck Galicia | [...] | | | Fingerstick | performed at [facility];[address] | | LAB | | | | [address];[place], [place] | | | | | | [address] | | | | + + + [...] | | | | | performed at [facility];[address] | | | | | | [facility];[place], [place] | | | | | | [address] | | | | + + + [...] + | Historically converted procedure from [facility] Epic environment | EXTERNAL LAB | [...] | | | PCRAbnormal Testing performed at [facility];[address] [place] [address];[place] [address] | | + + + + +---------+ [...]
--- OUTSIDE RECORDS SUMMARY | ~2019-10-05 | XMS | Clinical Summary ---
Demographics + + + | Address | [address] [place] [address] RD | | | [place] [address] | + + + | Home Phone [...] Team Providers + +------+ + | Care Pig Sticker Name | Role | Phone | + [...] + + + | Overview: Problem list database management specialist utility | + + + +---+ | [...] | [employer] | [employer]A | [id number] | | [phone] | | Medica | | MEDICAID HMO | HEALTH | | 018-Pr | 1 | | id | | | MDCD | | esent | | | | | | [place]MO [place] | | | | | | + +--------+ +--------+ +---------+--------+ | [facility] | IHS | [id number] | | | | Indemn | | [...] Person | Self | [birth year] | [address] | | | al/Fam | | 1965 | [phone] | [place] | | | vikas | | | 8 (Home) | [address] | + +--------+ +--------+ + + Advance Directives + + + + + | Type | Date Recorded | Patient | Explanation | | | | Stocking And Box Shop Supervisor | | + + + + + | Power of | | | | | Poultry Processing Supervisor | | | | + + + + + | Advance | | | | | Directive | | | | + + + + +
--- OUTSIDE RECORDS SUMMARY | ~2019-10-05 | XMS | Encounter Summary ---
Demographics + + + | Address | [address] | | | [place] [address] | + + + | Home Phone [...] Team Providers + +------+ + | Care Juvenile Corrections Officer Name | Role | Phone | [...] + | 04/12/ | Telephone | [facility] | Avi Forde MD | [facility] No Show | | 2015 | | GASTROENTEROLOGY | [address], [place] | | | | | [address] [place] | [address] [place] | | | | | [address] [place], [place] | [address] | | | | | [address] | | | | | | [phone] | | | +--------+ + + + [...]
--- OUTSIDE RECORDS SUMMARY | ~2019-10-05 | XMS | Encounter Summary ---
Demographics + + + | Address | [address] | | | [place] [address] | + + + | Home Phone [...] Team Providers + +------+ + | Care Retail Leasing Agent Name | Role | Phone | [...] MEDICAL CENTER | Avi Forde MD | [facility] No Show | | 2015 | | GASTROENTEROLOGY | [address], [place] | | | | | [address] [place] | [address] [place] | | | | | [address] [place], [place] | [address] | | | | | [address] | | | | | | [phone] | | | +--------+ + + + [...]
--- OUTSIDE RECORDS SUMMARY | ~2019-10-05 | XMS | Encounter Summary ---
Demographics + + + | Address | [address] | | | [place] [address] | + + + | Home Phone | | + + + | Preferred Language | Unknown | + + + | Marital Status | Single | + + + | Scientology Affiliation | 1077 | + + + | Race | Unknown | + + + | Ethnic Group | Unknown | + + + Author + + + | Author | [facility] | | | and [place] | + + + | Organization | [facility] | | | [...] Team Providers + +------+ + | Care Brazing Machine Tender Name | Role | Phone [...] | | | | [place], | [place] [address] | | | | | | [place] [address] | Phone: | | | | | | Phone: | [phone] | | | | | | [phone] | Fax: | | | | | | Fax: | [phone] | | | | | | [phone] | | +--------+ + + + + + Reason for Visit + + + | Reason | Comments | + + + | Hematuria | | + + + Encounter Details +--------+ + + + + | Date | Type | Department | Care Team | Description | +--------+ + + + + | 10/16/ | Emergency | [facility] | Keenan Estrada MD | Hematuria, | | 2019 | | MED CTR EMERGENCY | [address] | unspecified type | | | | CENTER [address] | [place] | (Primary Dx) | | | | [place] | [id number] | | | | | [address] | | | | | | [phone] | | | +--------+ + + + [...] + + +--------+ + + | Urology [facility] - | Outpatient | Routin | Hematuria, [...] + | [facility] | [address] | [place] | [phone] | | [facility] | | [address] | | | - LABORATORY | | [...] - 1.030 | [facility] | | | [place] | | | [facility] | | [...] [address] | [place] | [phone] | | [facility] | | [address] | | | - LABORATORY | | [...]
--- OUTSIDE RECORDS SUMMARY | ~2019-10-05 | XMS | Encounter Summary ---
Demographics + + + | Address | [address] | | | [place] [address] | + + + | Home Phone [...] Team Providers + +------+ + | Care Ornamental Ironworker Name | Role | Phone | + +------+ + | Estrella Light PA-C | PCP | | + +------+ + Encounter Details +--------+ + + + + | Date | Type | Department | Care Team | Description | +--------+ + + + + | 05/12/ | Orders Only | [facility] | Provider, | | | 2019 | | SYSTEM GENERIC OP | [address] | | | | | [address] | [place] | | | | | [address] [place], [place] | [place] [address] | | | | | [address] | | | | | | [phone] | | | +--------+ + + + [...]
--- OUTSIDE RECORDS SUMMARY | ~2019-10-05 | XMS | Encounter Summary ---
Demographics + + + | Address | [address] | | | [place] [address] | + + + | Home Phone [...] Team Providers + +------+ + | Care Overlay Plastician Name | Role | Phone | + [...] 2016 | | GASTROENTEROLOGY | [address] [place], [place] | | | | | [address] [place] | [address] [place] | | | | | [address] [place], [place] | [address] | | | | | [address] | | | | | | [phone] | | | +--------+ + + + [...]
--- OUTSIDE RECORDS SUMMARY | ~2019-10-05 | XMS | Encounter Summary ---
Demographics + + + | Address | [address] | | | [place] [address] | + + + | Home Phone [...] Providers + +------+ + | Care Manager Of Application Development Name | Role | Phone | [...] | | type | [address] | [place], | | | | | | [place], | [place] [address] | | | | | | [place] [address] | Phone: | | | | | | Phone: | [phone] | | | | | | [phone] | Fax: | | | | | | Fax: | [phone] | | | | | | [phone] | | +--------+ + + + + + Reason for Visit + + + | Reason | Comments | + + + | Hematuria | | + + + Encounter Details +--------+ + + + + | Date | Type | Department | Care Team | Description | +--------+ + + + + | 10/16/ | Emergency | [facility] | Keenan Estrada MD | Hematuria, | | 2019 | | MED CTR EMERGENCY | [address] | unspecified type | | | | CENTER [address] | [place] | (Primary Dx) | | | | [place] | [id number] | | | | | [address] | | | | | | [phone] | | | +--------+ + + + [...] + + +--------+ + + | Urology [facility] - | Outpatient | Routin [...] + | [facility] | [address] | [place] | [phone] | | [facility] | | [address] | | | - LABORATORY | | [...] - 1.030 | [facility] | | | [place] | | | [facility] | | [...] [address] | [place] | [phone] | | [facility] | | [address] | | | - LABORATORY | | [...]
--- OUTSIDE RECORDS SUMMARY | ~2019-10-05 | XMS | Encounter Summary ---
Demographics + + + | Address | [address] | | | [place] [address] | + + + | Home Phone [...] Team Providers + +------+ + | Care Spiral Winder Name | Role | Phone | [...] + + | 09/22/ | Telephone | [facility] | Avi Forde MD | Other | | 2014 | | GASTROENTEROLOGY | [address] | | | | | [address] [facility] | [address] | | | | | [address] [place], [place] | [id number] | | | | | [address] | | | | | | [phone] | | | +--------+ + + + [...]
--- OUTSIDE RECORDS SUMMARY | ~2019-10-05 | XMS | Encounter Summary ---
Demographics + + + | Address | [address] | | | [place] [address] | + + + | Home Phone | | + + + | Preferred Language | Unknown | + + + | Marital Status | Single | + + + | Mormon Affiliation | [phone] | + + + [...] Team Providers + +------+ + | Care Program Director Name | Role | Phone | [...] 2016 | | GASTROENTEROLOGY | [address], [place] | | | | | [address] [place] | [address] | | | | | [address] [place], [place] | [address] | | | | | [address] | | | | | | [phone] | | | +--------+ + + + [...]
--- OUTSIDE RECORDS SUMMARY | ~2019-10-05 | XMS | Encounter Summary ---
Demographics + + + | Address | [address] | | | [place] [address] | + + + | Home Phone [...] Team Providers + +------+ + | Care Emergency Medicine Specialist Name | Role | Phone | + +------+ + | Estrella Light PA-C | PCP | | + +------+ + Encounter Details +--------+ + + + + | Date | Type | Department | Care Team | Description | +--------+ + + + + | 09/22/ | Anesthesia | [facility] | Ilya Dodge | | | 2015 | Event | [facility] | MD E[address] | | | | | [address] | [facility] | | | | | [place] | [place] [address] | | | | | [address] | [phone] | | | | | [phone] | | | +--------+ + + + [...]
--- OUTSIDE RECORDS SUMMARY | ~2019-10-05 | XMS | Clinical Summary ---
Demographics + + + | Address | [address] [place] [address] RD | | | [place] [address] | + + + | Home Phone [...] Team Providers + +------+ + | Care It Consultant Name | Role | Phone | [...] + + + | Overview: Problem list milling machine set up operator utility | + + + +---+ | [...] | [employer] | [employer] | [id number] | | [phone] | | Medica | | MEDICAID HMO | HEALTH | | 018-Pr | 1 | | id | | | MDCD | | esent | | | | | | HMO OR | | | | | | + +--------+ +--------+ +---------+--------+ | [facility] | [employer] | [id number] | | | | Indemn | | [...] Person | Self | [birth year] | [address] | | | al/Fam | | [phone] | [phone] | [place] | | | [place] | | | [address] (Home) | [address] | + +--------+ +--------+ + + Advance Directives + + + + + | Type | Date Recorded | Patient | Explanation | | | | Graphics Specialist | | + + + + + | Power of | | | | | System Operator | | | | + + + + + | Advance | | | | | Directive | | | | + + + + +
--- OUTSIDE RECORDS SUMMARY | ~2019-10-05 | XMS | Encounter Summary ---
Demographics + + + | Address | [address] | | | [place] [address] | + + + | Home Phone [...] Providers + +------+ + | Care Sr Risk Management Consultant Name | Role | Phone | + +------+ + | Estrella Light PA-C | PCP | | + +------+ + Encounter Details +--------+ + + + + | Date | Type | Department | Care Team | Description | +--------+ + + + + | 01/13/ | Hospital | [facility] | Conversion | Diagnosis unknown | | 2018 | Encounter | CONVERSION DEP [address] | Transaction, | | | | | [address] [address] | Provider Unknown | | | | | [place] | | | | | | [phone] | (Fax) | | | | | [phone] | | | +--------+ + + + [...]
--- OUTSIDE RECORDS SUMMARY | ~2019-10-05 | XMS | Encounter Summary ---
Demographics + + + | Address | [address] | | | [place] [address] | + + + | Home Phone [...] Providers + +------+ + | Care Metal Spinner Name | Role | Phone | + +------+ + | Estrella Light PA-C | PCP | | + +------+ + Encounter Details +--------+ + + + + | Date | Type | Department | Care Team | Description | +--------+ + + + + | 12/14/ | Hospital | [facility] | [place], | Osteomyelitis of | | 2017 - | Encounter | [facility] | MD Pavel [address] | foot, left, acute | | | | CARE FLOOR [address] | [address] | ([facility]); Uncontrolled | | 12/20/ | | [address] | [place] [address] | type 2 diabetes | | 2017 | | [place], [place] | [phone] | mellitus with | | | | [address] | | hyperglycemia, | | | | [phone] | | unspecified long | | | | | | term insulin use | | | | | | status ([facility]); Renal | | | | | [...] 1933 Date of Service: 12/20/161538 Status: Addendum Vascular Manager: Bunny Chaney MD (Physician) Related Notes: Original Note by Bunny Chaney MD (Physician) filed at 12/26/16 0644 [facility] Service: Hospitalist Physician Discharge Summary Patient ID: Kuldip Smith [id number] y.o. 1965 Admit date: 12/14/2016 Discharge [...] been approved, which should be given from [facility] ec until further approval from insurance. Also [...] up: Estrella Light PA-C [address] [place] [address] Rebeca Reza MD [address] [facility] [address] Schedule an appointment as soon as possible for a visit in 10 days Dictation and sustainability purchasing agent or software, [employer], used which may contain error for similar [...] AMPUTATION; Surgeon: Walter Fernandez DPM; Location: [facility]; Service: Podiatry; Laterality: Left; Significant [...] Management by Jenny Vaughan RN at 12/20/16 8540 Author: Jenny Vaughan RN Service: (none) Author Type: Registered Nurse Filed: 12/20/16 1899 Date of Service: 12/20/161538 Status: Signed Vascular Manager: Jenny Vaughan RN (Registered Nurse) 1610 - Received call from [facility] stating they are now unable to accept pa tient due to a "freeze on admits". They are aware patient has been discharged and is en rou te to home. They are still unable to accept. Call placed to [facility] OPP rega rding need for services. They state pt will need to arrange wound care/dressing changes thr ough his PCP per insurance requirements. Voicemail left for Coby at [facility] to return call. Will need to call back in morning to schedule appointment as clinic is currently closed. onver ruben Transaction, Provider Unknown - 12/20/2016 3:39 PM PDT Case Management by Mirlande Prescott RN at 12/20/16 6559 Author: Mirlande Prescott RN Service: (none) Author Type: Registered Nurse Filed: 12/21/16 0808 Date of Service: 12/20/16 1539 Status: Signed Vascular Manager: Mirlande Prescott RN (Registered Nurse) 0800: Tc to pt's PCP, Coby Light, with [facility], to updat e about [facility] not being able to admit pt. Coby states she and Charlotte will work on getting pt the appropriate wound vac care he needs, they are going to try and get pt into O P wound therapy with [facility] or maybe to OP in [place]. Coby states she will als o call [facility] as to when they can admit pt under their services. Maribel onver ruben Transaction, Provider Unknown - 12/20/2016 1:03 PM PDT Progress Notes by Rachael Molina RN at 12/20/16 1303 Author: Rachael Molina RN Service: Wound/Ostomy Care Author Type: Registered Nurse Filed: 12/20/16 1311 Date of Service: 12/20/16 1303 Status: Signed Vascular Manager: Rachael Molina RN (Registered Nurse) Wound care in to switch patient out to portable wound vac unit. This is a sol vac on l oan from [facility]. Explained to patient when his insurance approves his home vac unit, that t his sol vac is to be returned via [employer]. Instructions given in detail, voiced candelaria frias. Photo taken of tracking number and faxed to Alicia [facility] rep. Instructions on how to [...] for further protection. Hospital vac dc'd in [facility] express: #[id number] Rachael Molina RN, ON 12/20/2016 1:10 PM onver ruben Transaction, Provider Unknown - 12/20/2016 11:34 AM PDT Case Management by Mirlande Prescott RN at 12/20/16 1134 Author: Mirlande Prescott RN Service: (none) Author Type: Registered Nurse Filed: 12/20/16 1459 Date of Service: 12/20/16 1134 Status: Addendum Vascular Manager: Miralnde Prescott RN (Registered Nurse) Related Notes: Original Note by Mirlande Prescott RN (Registered Nurse) filed at 12/20/16 114 9 Per rounding with pt, he will be d/c home today. Pt states his mother will be providing tra nsportation home. Wound vac has been approved by [facility]. [facility] has been set up, and [...] and agrees with plan. Tc to Coby [phone] and Charlotte [phone] [facility]/mannie pickens nd left mssgs of pt's d/c Today. Faxed AVS to [facility] Maribel Iqra Mcgregor PT - 12/20/2016 10:07 AM PDTFormatting of this note might be different from th e original. Therapy Progress Note by Karina Zabala PT at 12/20/16 1007 Author: Karina Zabala PT Service: (none) Author Type: Physical Therapist Filed: 12/20/16 1037 Date of Service: 12/20/16 1007 Status: Signed Vascular Manager: Karina Zabala PT (Physical Therapist) 12/20/16 [...] (none) Author Type: Physical Therapist Filed: 12/19/16 1418 Date of Service: 12/19/166 Status: Signed Vascular Manager: Natalia Marte PT (Physical Therapist) 12/19/16 1646 PT Last Visit PT Received On 12/19/16 Reason for Treatment Other (comment) (L foot osteomyelitis) Requires PT Follow Up Awaiting tx order Follow up PT Only? Yes (Assistive device assessment) Focus for Next Treatment Equipment Trial;Stair Training (bilateral axillary crutches and stair training) PT Eval/Reassessment Date 12/19/16 Assistance Required 1 person Data Operations Leader Needed No Home Environment Type of Home Home one story Home Exterior Layout 1-3 steps (2 JEISON) Home Interior Layout Lives on main level with bedroom/bathroom Bathroom Shower/Tub Tub/shower unit Bathroom Toilet Raised Bathroom Equipment Grab bars outside of shower/bath;Raised toilet seat Bathroom Accessibility Not accessible Home Equipment Cane single point;Crutches-axillary Prior Function Level of [place] Independent with ADLs;Independent with IADLs;Modified independent wi [...] Eval/Reassessment Date 12/19/16 Assistance Required 1 person Data Operations Leader Needed No Precautions LE Precaution(s) LLE Precautions/WB [...] Notes by Rebeca Reza MD at 12/19/16 6821 Author: Rebeca Reza MD Service: Infectious Disease Author Type: Physician Filed: 12/20/16 0639 Date of Service: 12/19/16 8596 Status: Signed Vascular Manager: Rebeca Reza MD (Physician) [facility] Service: Infectious Disease Progress Note Hospital [...] Dec 15 2016 9:30AM Referring Provider Line: [phone] ID: [id number] MRI foot left without contrast [[id number]] Impression 1. Recent amputation of the LEFT 4th toe. 2. No radiographic evidence of residual osteomyelitis in the remaining ossicles of the LEF T forefoot. 3. Moderately extensive vascular calcifications. X-ray foot left [[id number]] PROBLEM LIST Principal Problem: Osteomyelitis (HCC) Active [...] Date of Service: 12/19/16 1103 Status: Signed Vascular Manager: Dell Archer DO (Physician) PROGRESS NOTE [...] 1103 Date of Service: 12/19/16914 Status: Addendum Vascular Manager: Jenny Vaughan RN (Registered Nurse) Related Notes: Original Note by Jenny Vaughan RN (Registered Nurse) filed at 12/19/16 [phone] - [facility]. She wi ll be following patient [...] accept patient. Face to face order faxed ([phone]) Charlotte [facility] RN [phone] Alicia with [facility] notified of wound vac placement. Auth form signed by hospitalist and faxed to Alicia. Lilly with [facility] Care notified of patient discharging on oral antibiotics. onver ruben Transaction, Provider Unknown - 12/18/2016 6:45 PM PDT Nurse Progress Note by Gerber Hay RN at 12/18/161844 Author: Gerber Hay RN Service: (none) Author Type: Registered Nurse Filed: 12/18/161847 Date of Service: 12/18/161844 Status: Signed Vascular Manager: Gerber Hay RN (Registered Nurse) Pt [...] 12/18/16933 Date of Service: 12/18/16928 Status: Addendum Vascular Manager: Dell Archer DO (Physician) Related Notes: [...] 12/18/16899 Date of Service: 12/18/16854 Status: Signed Vascular Manager: Walter Fernandez DPM (Doctor of Podiatric Medicine) [facility] Service: Podiatry Progress Note Hospital Day: [...] home health care. Dr. David DPM in [place] take s care of this patient and [...] 12/18/16845 Date of Service: 12/18/16845 Status: Signed Vascular Manager: Destini Vargas RPH (Pharmacist) Day 5 [...] 1108 Date of Service: 12/18/16820 Status: Signed Vascular Manager: Rebeca Reza MD (Physician) [facility] Service: Infectious Disease Progress Note Hospital [...] Dec 15 2016 9:30AM Referring Provider Line: [phone] ID: [id number] MRI foot left without contrast [[id number]] Impression 1. Recent amputation of the LEFT 4th toe. 2. No radiographic evidence of residual osteomyelitis in the remaining ossicles of the LEF T forefoot. 3. Moderately extensive vascular calcifications. X-ray foot left [[id number]] PROBLEM LIST Principal Problem: Osteomyelitis (HCC) Active [...] Note by Jihan Jacinto RPH at 12/17/16 7217 Author: Jihan Jacinto RPH Service: Pharmacy Author Type: Pharmacist Filed: 12/17/162246 Date of Service: 12/17/162246 Status: Signed Vascular Manager: Jihan Jacinto RPH (Pharmacist) Clinical Pharmacy [...] 12/17/161750 Date of Service: 12/17/161742 Status: Signed Vascular Manager: Gerber Hay RN (Registered Nurse) Wound [...] Notes by Rebeca Reza MD at 12/17/16 0390 Author: Rebeca Reza MD Service: Infectious Disease Author Type: Physician Filed: 12/17/16 1705 Date of Service: 12/17/16 1510 Status: Addendum Vascular Manager: Rebeca Reza MD (Physician) Related Notes: Original Note by Rebeca Reza MD (Physician) filed at 12/17/16 7263 [facility] Service: Infectious Disease Progress Note Hospital [...] Dec 15 2016 9:30AM Referring Provider Line: [phone] ID: [id number] MRI foot left without contrast [[id number]] Impression 1. Recent amputation of the LEFT 4th toe. 2. No radiographic evidence of residual osteomyelitis in the remaining ossicles of the LEF T forefoot. 3. Moderately extensive vascular calcifications. X-ray foot left [[id number]] PROBLEM LIST Principal Problem: Osteomyelitis (HCC) Active [...] Doctor of Podiatric Medi cine Filed: 12/17/16 7478 Date of Service: 12/17/16 1406 Status: Signed Vascular Manager: Walter Fernandez DPM (Doctor of Podiatric Medicine) [facility] Service: Podiatry Progress Note Hospital Day: [...] the original. Nurse Progress Note by Gerber aHy RN at 12/17/16 9206 Author: Gerber Hay RN Service: (none) Author Type: Registered Nurse Filed: 12/17/16 5961 Date of Service: 12/17/16 1144 Status: Signed Vascular Manager: Gerber Hay RN (Registered Nurse) Pt had [...] Filed: 12/17/16 1103 Date of Service: 12/17/16 1052 Status: Signed Vascular Manager: Dell Archer DO (Physician) PROGRESS NOTE [...] 12/17/16834 Date of Service: 12/17/16834 Status: Signed Vascular Manager: Destini Vargas RPH (Pharmacist) Day 4 [...] 12/17/168 Date of Service: 12/17/16307 Status: Signed Vascular Manager: Jihan Jacinto RPH (Pharmacist) Clinical Pharmacy [...] Walter Fernandez DPM at 12/16/161709 Author: Walter Feranndez DPM Service: Podiatry Author Type: Doctor of Podiatric Medi cine Filed: 12/16/161719 Date of Service: 12/16/161709 Status: Signed Vascular Manager: Walter Fernandez DPM (Doctor of Podiatric Medicine) [facility] Service: Podiatry Progress Note Hospital Day: [...] Notes by Rebeca Reza MD at 12/16/16 7829 Author: Rebeca Reza MD Service: Infectious Disease Author Type: Physician Filed: 12/16/16 1606 Date of Service: 12/16/165 Status: Signed Vascular Manager: Rebeca Reza MD (Physician) [facility] Service: Infectious Disease Progress Note Hospital [...] Dec 15 2016 9:30AM Referring Provider Line: [phone] ID: [id number] MRI foot left without contrast [[id number]] Impression 1. Recent amputation of the LEFT 4th toe. 2. No radiographic evidence of residual osteomyelitis in the remaining ossicles of the LEF T forefoot. 3. Moderately extensive vascular calcifications. X-ray foot left [[id number]] PROBLEM LIST Principal Problem: Osteomyelitis (HCC) Active [...] Management by Jenny Vaughan RN at 12/16/16 5346 Author: Jenny Vaughan RN Service: (none) Author Type: Registered Nurse Filed: 12/16/16 5757 Date of Service: 12/16/16 5350 Status: Signed Vascular Manager: Jenny Comfort, RN (Registered Nurse) 12/16/16 7565 Discharge Planning Evaluation Admitting Diagnosis osteomyelitis Readmission No Living Arrangements Parent Support Systems Parent;Family members Type of Residence Private residence House type House-1 story Steps to enter 2 Independent with ADL's Yes Independent with Mobility Yes Mental Status Oriented Prior functional status not employed, independent Power of Data Entry Operator No Anticipated Discharge Plan Post Acute [...] PCP is: Estrella Light PA-C Patient's insurance: Medicare/[facility] Coverage concerns: None Medication coverage/concerns: None Community resources utilized / needed: TBD pending pt progress and treatment plan. Sascha garcia need home health services along with IV abx. Discussed with patient and he states und erstanding. Referral sent to [facility] for nursing services as patient lives in [place]. Options for home IV abx services provided to pt/family and they do not have a preference. Referral to [facility] will follow. Pt/family requested I notify Coby at the [facility] of pt status as she ar ranges services for them. Contacted Coby and provided current discharge plan. If there is a change in plan, Coby requests to be notified as she will continue to follow patient after discharge. She also states pt will be followed by their community health nurse (Charlotte ) who works alongside [facility]. Coby [facility] [phone] Assistance in transportation: Pt's family is able [...] Date of Service: 12/16/16 1012 Status: Signed Vascular Manager: Dell Archer DO (Physician) PROGRESS NOTE [...] Date of Service: 12/15/16 1248 Status: Signed Vascular Manager: Jenny Vaughan RN (Registered Nurse) Attempted [...] 12/15/16405 Date of Service: 12/15/16405 Status: Signed Vascular Manager: Jihan Jacinto RPH (Pharmacist) Clinical Pharmacy [...] 12/15/16404 Date of Service: 12/15/16404 Status: Signed Vascular Manager: Jihan Jacinto RPH (Pharmacist) Clinical Pharmacy [...] | | | Fingerstick | performed at [facility] | | LAB | | | | [address];[place] | | | | | | [address] | | | | + + + [...] EXTERNAL | | | | performed at [facility];[address] | | LAB | | | | [address];[place], [place] | | | | | | [address] | | | | + + [...] EXTERNAL | | | | performed at [facility];888 | K/uL | LAB | | | | [address];[place] | | | | | | [address] | | | | + + + + + + | RED CELL | 4.00 (L)Comment: Testing | 4.20 - 5.70 | EXTERNAL | | | COUNT | performed at [facility];[place] | M/uL | LAB | | | | [address];[place] | | | | | | [address] | | | | + + + + + + | Hgb | 11.6 (L)Comment: Testing | 13.2 - 17.0 | EXTERNAL | | | | performed at [facility];888 | g/dL | LAB | | | | [address];[place] | | | | | | [address] | | | | + + + + + + | Hematocrit, | 33.9 (L)Comment: Testing | 39.0 - 50.0 % | EXTERNAL | | | POC | performed at [facility];[address] | | LAB | | | | [address];[place] | | | | | | [address] | | | | + + + + + + | MCV | 84.7Comment: Testing | 80.0 - 100.0 fl | EXTERNAL | | | | performed at [facility];[address] | | LAB | | | | [address];[place] | | | | | | [address] | | | | + + + + + + | MCH | 28.9Comment: Testing | 27.0 - 34.0 pg | EXTERNAL | | | | performed at [facility];888 | | LAB | | | | [address];[place] | | | | | | [address] | | | | + + + + + + | MCHC | 34.1Comment: Testing | 32.0 - 35.5 | EXTERNAL | | | | performed at [facility];888 | g/dL | LAB | | | | [address];[place] | | | | | | [address] | | | | + + + + + + | RDW-CV | 42.0Comment: Testing | 37 - 53 fl | EXTERNAL | | | | performed at [facility];888 | | LAB | | | | [address];[place] | | | | | | [address] | | | | + + + + + + | Platelet | 392Comment: Testing | 150 - 400 K/uL | EXTERNAL | | | Count | performed at [facility];888 | | LAB | | | Plasma | [address];[place] | | | | | | [address] | | | | + + + + + + | MPV | 7.0Comment: Testing | fl | EXTERNAL | | | | performed at [facility];888 | | LAB | | | | [address];[place] | | | | | | [address] | | | | + + + + + + | Differentia | MANUALComment: Testing | | EXTERNAL | | | l Type | performed at [facility];888 | | LAB | | | | [address];[place] | | | | | | [address] | | | | + + + + + + | Segmented | 69Comment: Testing | % | EXTERNAL | | | Neutrophils | performed at [facility];888 | | LAB | | | Manual | [address];[place] | | | | | | [address] | | | | + + + + + + | Lymphocytes | 21Comment: Testing | % | EXTERNAL | | | Manual | performed at [facility];888 | | LAB | | | | [address];[place] | | | | | | [address] | | | | + + + + + + | Monocytes | 4Comment: Testing | % | EXTERNAL | | | Manual | performed at [facility];888 | | LAB | | | | [address];[place] | | | | | | [address] | | | | + + + + + + | Eosinophils | 6Comment: Testing | % | EXTERNAL | | | Manual | performed at [facility];888 | | LAB | | | | [address];[place] | | | | | | [address] | | | | + + + + + + | Absolute | 5.08Comment: Testing | 1.90 - 7.40 | EXTERNAL | | | Neutrophils | performed at [facility];888 | K/uL | LAB | | | | [address];[place] | | | | | | [address] | | | | + + + + + + | Absolute | 1.55Comment: Testing | 1.00 - 3.90 | EXTERNAL | | | Lymphocytes | performed at [facility];888 | K/uL | LAB | | | | [address];[place] | | | | | | [address] | | | | + + + + + + | Absolute | 0.29Comment: Testing | 0.00 - 0.80 | EXTERNAL | | | Monocytes | performed at [facility];888 | K/uL | LAB | | | | [address];[place] | | | | | | [address] | | | | + + + + + + | Absolute | 0.44Comment: Testing | 0.00 - 0.50 | EXTERNAL | | | Eosinophils | performed at [facility];888 | K/uL | LAB | | | | [address];[place] | | | | | | [address] | | | | + + + + + + | RBC | NORMALComment: Testing | | EXTERNAL | | | Morphology | performed at [facility];[address] | | LAB | | | | [address];[place] | | | | | | [address] | | | | + + + [...] EXTERNAL | | | | performed at [facility];888 | | LAB | | | | [address];[place] | | | | | | [address] | | | | + + + [...] | | | Fingerstick | performed at [facility];888 | | LAB | | | | [address];[place], [place] | | | | | | [address] | | | | + + + [...] | | | Fingerstick | performed at [facility];888 | | LAB | | | | [address];[place] | | | | | | [address] | | | | + + + [...] | | | Fingerstick | performed at [facility];888 | | LAB | | | | [address];[place] | | | | | | [address] | | | | + + + [...] | | | Fingerstick | performed at [facility];888 | | LAB | | | | [address];[place] | | | | | | [address] | | | | + + + [...] | | | Fingerstick | performed at [facility];888 | | LAB | | | | [address];[place], [place] | | | | | | [address] | | | | + + + [...] | | | Fingerstick | performed at [facility];[address] | | LAB | | | | [address];[place] | | | | | | [address] | | | | + + + [...] | | | Fingerstick | performed at [facility];[address] | | LAB | | | | [address];[place], [place] | | | | | | [address] | | | | + + + [...] | | | Fingerstick | performed at [facility];888 | | LAB | | | | [address];[place] | | | | | | [address] | | | | + + + [...] | EXTERNAL LAB | | performed at [facility];[address] [place] [address];[place] [address] TOXIN A | | | NEGATIVE Testing performed at | | | [facility];[address] [facility];[place] [address] C DIFF INTERPRETATION | | | Negative for toxigenic C.difficile. Testing performed at | | | [facility];[address] [place] [address];[place] [address] | | + + + + +---------+ [...] | | | Fingerstick | performed at [facility];[address] | | LAB | | | | [address];[place] | | | | | | [address] | | | | + + + [...] EXTERNAL | | | | performed at [facility], [address] | K/uL | LAB | | | | [address], | | | | | | [place] [address] | | | | + + + + + + | RED CELL | 3.92 (L)Comment: Testing | 4.20 - 5.70 | EXTERNAL | | | COUNT | performed at [facility], [address] | M/uL | LAB | | | | [address], | | | | | | [place] [address] | | | | + + + + + + | Hgb | 11.2 (L)Comment: Testing | 13.2 - 17.0 | EXTERNAL | | | | performed at [facility], [address] | g/dL | LAB | | | | [address], | | | | | | [place] [address] | | | | + + + + + + | Hematocrit, | 33.6 (L)Comment: Testing | 39.0 - 50.0 % | EXTERNAL | | | POC | performed at [facility], [address] | | LAB | | | | [address], | | | | | | [place] [address] | | | | + + + + + + | MCV | 85.9Comment: Testing | 80.0 - 100.0 fl | EXTERNAL | | | | performed at [facility], [address] | | LAB | | | | [address], | | | | | | [place] [address] | | | | + + + + + + | MCH | 28.7Comment: Testing | 27.0 - 34.0 pg | EXTERNAL | | | | performed at [facility], [address] | | LAB | | | | [address], | | | | | | [place] [address] | | | | + + + + + + | MCHC | 33.4Comment: Testing | 32.0 - 35.5 | EXTERNAL | | | | performed at [facility], [address] | g/dL | LAB | | | | [address], | | | | | | [place] [address] | | | | + + + + + + | RDW-CV | 41.1Comment: Testing | 37 - 53 fl | EXTERNAL | | | | performed at [facility], [address] | | LAB | | | | [address], | | | | | | [place] [address] | | | | + + + + + + | Platelet | 341Comment: Testing | 150 - 400 K/uL | EXTERNAL | | | Count | performed at [facility], [address] | | LAB | | | Plasma | [address], | | | | | | [place] [address] | | | | + + + + + + | MPV | 7.6Comment: Testing | fl | EXTERNAL | | | | performed at [facility], [address] | | LAB | | | | [address], | | | | | | [place] [address] | | | | + + + + + + | Differentia | AUTOMATEDComment: | | EXTERNAL | | | l Type | Testing performed at | | LAB | | | | [facility], [address] | | | | | | [place] | | | | | | [address] | | | | + + + + + + | % Segmented | 76.22Comment: Testing | % | EXTERNAL | | | | performed at [facility], [address] | | LAB | | | Neutrophils | [address], | | | | | | [place] [address] | | | | + + + + + + | % | 12.04Comment: Testing | % | EXTERNAL | | | Lymphocytes | performed at [facility], [address] | | LAB | | | | [address], | | | | | | [place] [address] | | | | + + + + + + | % Monocytes | 6.15Comment: Testing | % | EXTERNAL | | | | performed at [facility], [address] | | LAB | | | [address], | | | | | | [place] [address] | | | | + + + + + + | % | 4.73Comment: Testing | % | EXTERNAL | | | Eosinophils | performed at [facility], [address] | | LAB | | | | [address], | | | | | | [place] [address] | | | | + + + + + + | % Basophils | 0.86Comment: Testing | % | EXTERNAL | | | | performed at [facility], [address] | | LAB | | | | [address], | | | | | | [place] [address] | | | | + + + + + + | Absolute | 8.38 (H)Comment: Testing | 1.90 - 7.40 | EXTERNAL | | | Segmented | performed at [facility], [address] | [address] | LAB | | | Neutrophils | [address], | | | | | | [place] [address] | | | | + + + + + + | Absolute | 1.32Comment: Testing | 1.00 - 3.90 | EXTERNAL | | | Lymphocytes | performed at [facility], [address] | [address] | LAB | | | | [address], | | | | | | [place] [address] | | | | + + + + + + | Absolute | 0.68Comment: Testing | 0.00 - 0.80 | EXTERNAL | | | Monocytes | performed at [facility], [address] | K/uL | LAB | | | | [address], | | | | | | [place] [address] | | | | + + + + + + | Absolute | 0.52 (H)Comment: Testing | 0.00 - 0.50 | EXTERNAL | | | Eosinophils | performed at [facility], [address] | [address] | LAB | | | | [address], | | | | | | [place] [address] | | | | + + + + + + | Absolute | 0.10Comment: Testing | 0.00 - 0.10 | EXTERNAL | | | Basophils | performed at [facility], [address] | K[address]L | LAB | | | | [address], | | | | | | [place] [address] | | | | + + + [...] | | | | [place] [address] | | | | + + + + + + | K | 3.8Comment: Testing | 3.5 - 4.9 | EXTERNAL | | | | performed at [facility], [address] | mmol/L | LAB | | | | [address], | | | | | | [place] [address] | | | | + + + + + + | Cl | 105Comment: Testing | 99 - 109 mmol/L | EXTERNAL | | | | performed at [facility], [address] | | LAB | | | | [address], | | | | | | [place] [address] | | | | + + + + + + | CO2 | 25Comment: Testing | 23 - 32 mmol/L | EXTERNAL | | | | performed at [facility], [address] | | LAB | | | | [address], | | | | | | [place] [address] | | | | + + + + + + | Anion Gap | 12Comment: Testing | 5 - 20 mmol/L | EXTERNAL | | | | performed at [facility], [address] | | LAB | | | | [address], | | | | | | [place] [address] | | | | + + + + + + | Glucose, | 236 (H)Comment: Testing | 65 - 99 mg/dL | EXTERNAL | | | Fasting | performed at [facility], [address] | | LAB | | | | [address], | | | | | | [place] [address] | | | | + + + + + + | BUN | 6 (L)Comment: Testing | 8 - 25 mg/dL | EXTERNAL | | | | performed at [facility], [address] | | LAB | | | | [address], | | | | | | [place] [address] | | | | + + + + + + | Creatinine | 0.9Comment: Testing | 0.70 - 1.30 | EXTERNAL | | | | performed at [facility], [address] | mg/dL | LAB | | | | [address], | | | | | | [place] [address] | | | | + + + + + + | BUN/Creatin | 7Comment: Testing | | EXTERNAL | | | ine Ratio | performed at [facility], [address] | | LAB | | | | [address], | | | | | | [place] [address] | | | | + + + + + + | Calcium | 8.3 (L)Comment: Testing | 8.5 - 10.5 | EXTERNAL | | | | performed at [facility], [address] | mg/dL | LAB | | | | [address], | | | | | | [place] [address] | | | | + + + [...] Man, | | | | | | [place] [address] | | | | + + + [...] | | | Fingerstick | performed at [facility] | | LAB | | | | [address];[place] | | | | | | [address] | | | | + + + [...] | | | | | performed at [facility];[address] | | | | | | [address];[place] | | | | | | [address] | | | | + + + [...] | | | Fingerstick | performed at [facility];[address] | | LAB | | | | [address];[place], [place] | | | | | | [address] | | | | + + + [...] | | | Fingerstick | performed at [facility];[address] | | LAB | | | | [address];[place] | | | | | | [address] | | | | + + + [...] | | | Fingerstick | performed at [facility];[address] | | LAB | | | | [address];[place] | | | | | | [address] | | | | + + + [...] [place] | | | | | | [address] | | | | + + + + + + | RED CELL | 4.13 (L)Comment: Testing | 4.20 - 5.70 | EXTERNAL | | | COUNT | performed at [facility], [address] | M/uL | LAB | | | | [address], | | | | | | [place] [address] | | | | + + + + + + | Hgb | 11.7 (L)Comment: Testing | 13.2 - 17.0 | EXTERNAL | | | | performed at [facility], [address] | g/dL | LAB | | | | [address], | | | | | | [place] [address] | | | | + + + + + + | Hematocrit, | 34.8 (L)Comment: Testing | 39.0 - 50.0 % | EXTERNAL | | | POC | performed at [facility], [address] | | LAB | | | | [address], | | | | | | [place] [address] | | | | + + + + + + | MCV | 84.2Comment: Testing | 80.0 - 100.0 fl | EXTERNAL | | | | performed at [facility], [address] | | LAB | | | | [address], | | | | | | [place] [address] | | | | + + + + + + | MCH | 28.2Comment: Testing | 27.0 - 34.0 pg | EXTERNAL | | | | performed at [facility], [address] | | LAB | | | | [address], | | | | | | [place] [address] | | | | + + + + + + | MCHC | 33.5Comment: Testing | 32.0 - 35.5 | EXTERNAL | | | | performed at [facility], [address] | g/dL | LAB | | | | [address], | | | | | | [place] [address] | | | | + + + + + + | RDW-CV | 42.0Comment: Testing | 37 - 53 fl | EXTERNAL | | | | performed at [facility], [address] | | LAB | | | | [address], | | | | | | [place] [address] | | | | + + + + + + | Platelet | 329Comment: Testing | 150 - 400 K/uL | EXTERNAL | | | Count | performed at [facility], [address] | | LAB | | | Plasma | [address], | | | | | | [place] [address] | | | | + + + + + + | MPV | 7.9Comment: Testing | fl | EXTERNAL | | | | performed at [facility], [address] | | LAB | | | | [address], | | | | | | [place] [address] | | | | + + + + + + | Differentia | AUTOMATEDComment: | | EXTERNAL | | | l Type | Testing performed at | | LAB | | | | [facility], [address] | | | | | | [place] | | | | | | [address] | | | | + + + + + + | % Segmented | 83.29Comment: Testing | % | EXTERNAL | | | | performed at [facility], [address] | | LAB | | | Neutrophils | [address], | | | | | | [place] [address] | | | | + + + + + + | % | 8.71Comment: Testing | % | EXTERNAL | | | Lymphocytes | performed at [facility], [address] | | LAB | | | | [address], | | | | | | [place] [address] | | | | + + + + + + | % Monocytes | 5.08Comment: Testing | % | EXTERNAL | | | | performed at [facility], [address] | | LAB | | | | [address], | | | | | | [place] [address] | | | | + + + + + + | % | 2.32Comment: Testing | % | EXTERNAL | | | Eosinophils | performed at [facility], [address] | | LAB | | | | [address], | | | | | | [place] [address] | | | | + + + + + + | % Basophils | 0.60Comment: Testing | % | EXTERNAL | | | | performed at [facility], [address] | | LAB | | | | [address], | | | | | | [place] [address] | | | | + + + + + + | Absolute | 12.15 (H)Comment: | 1.90 - 7.40 | EXTERNAL | | | Segmented | Testing performed at | K/uL | LAB | | | Neutrophils | [facility], [address] | | | | | | [place] | | | | | | [address] | | | | + + + + + + | Absolute | 1.27Comment: Testing | 1.00 - 3.90 | EXTERNAL | | | Lymphocytes | performed at [facility], [address] | K/[address] | LAB | | | | [address], | | | | | | [place] [address] | | | | + + + + + + | Absolute | 0.74Comment: Testing | 0.00 - 0.80 | EXTERNAL | | | Monocytes | performed at [facility], [address] | K/uL | LAB | | | | [address], | | | | | | [place] [address] | | | | + + + + + + | Absolute | 0.34Comment: Testing | 0.00 - 0.50 | EXTERNAL | | | Eosinophils | performed at [facility], [address] | [address] | LAB | | | | [address], | | | | | | [place] [address] | | | | + + + + + + | Absolute | 0.09Comment: Testing | 0.00 - 0.10 | EXTERNAL | | | Basophils | performed at [facility], [address] | K/[address] | LAB | | | | [address], | | | | | | [place] [address] | | | | + + + [...] | | | | [place] [address] | | | | + + + + + + | K | 3.8Comment: Testing | 3.5 - 4.9 | EXTERNAL | | | | performed at [facility], [address] | mmol/L | LAB | | | | [address], | | | | | | [place] [address] | | | | + + + + + + | Cl | 104Comment: Testing | 99 - 109 mmol/L | EXTERNAL | | | | performed at [facility], [address] | | LAB | | | | [address], | | | | | | [place] [address] | | | | + + + + + + | CO2 | 27Comment: Testing | 23 - 32 mmol/L | EXTERNAL | | | | performed at [facility], [address] | | LAB | | | | [address], | | | | | | [place] [address] | | | | + + + + + + | Anion Gap | 11Comment: Testing | 5 - 20 mmol/L | EXTERNAL | | | | performed at [facility], [address] | | LAB | | | | [address], | | | | | | [place] [address] | | | | + + + + + + | Glucose, | 196 (H)Comment: Testing | 65 - 99 mg/dL | EXTERNAL | | | Fasting | performed at [facility], [address] | | LAB | | | | [address], | | | | | | [place] [address] | | | | + + + + + + | BUN | 5 (L)Comment: Testing | 8 - 25 mg/dL | EXTERNAL | | | | performed at [facility], [address] | | LAB | | | | [address], | | | | | | [place] [address] | | | | + + + + + + | Creatinine | 0.9Comment: Testing | 0.70 - 1.30 | EXTERNAL | | | | performed at [facility], [address] | mg/dL | LAB | | | | [address], | | | | | | [place] [address] | | | | + + + + + + | BUN/Creatin | 6Comment: Testing | | EXTERNAL | | | ine Ratio | performed at [facility], [address] | | LAB | | | | [address], | | | | | | [place] [address] | | | | + + + + + + | Calcium | 8.4 (L)Comment: Testing | 8.5 - 10.5 | EXTERNAL | | | | performed at [facility], [address] | mg/dL | LAB | | | | [address], | | | | | | [place] [address] | | | | + + + [...] | | | | | | at [facility], [address] | | | | | | [address], | | | | | | [place] [address] | | | | + + + [...] | | | Fingerstick | performed at [facility];[address] | | LAB | | | | [address];[place] | | | | | | [address] | | | | + + + [...] | | | Fingerstick | performed at [facility];8 | | LAB | | | | [address];[place] | | | | | | [address] | | | | + + + [...] | | | | | performed at [facility] | | | | | | [facility];[place], [place] | | | | | | [address] | | | | + + + [...] | | | Fingerstick | performed at [facility];[address] | | LAB | | | | [address];[place] | | | | | | [address] | | | | + + + [...] | | | Fingerstick | performed at [facility];[address] | | LAB | | | | [address];[place], [place] | | | | | | [address] | | | | + + + [...] | | | | [facility], [address] [facility] | | | | | | [place] | | | | | | [address] | | | | + + + + + + | RED CELL | 4.31Comment: Testing | 4.20 - 5.70 | EXTERNAL | | | COUNT | performed at [facility], [address] | M/uL | LAB | | | | [address], | | | | | | [place] [address] | | | | + + + + + + | Hgb | 12.3 (L)Comment: Testing | 13.2 - 17.0 | EXTERNAL | | | | performed at [facility], [address] | g/dL | LAB | | | | [address], | | | | | | [place] [address] | | | | + + + + + + | Hematocrit, | 36.4 (L)Comment: Testing | 39.0 - 50.0 % | EXTERNAL | | | POC | performed at [facility], [address] | | LAB | | | | [address], | | | | | | [place] [address] | | | | + + + + + + | MCV | 84.5Comment: Testing | 80.0 - 100.0 fl | EXTERNAL | | | | performed at [facility], [address] | | LAB | | | [address], | | | | | | [place] [address] | | | | + + + + + + | MCH | 28.5Comment: Testing | 27.0 - 34.0 pg | EXTERNAL | | | | performed at [facility], [address] | | LAB | | | | [address], | | | | | | [place] [address] | | | | + + + + + + | MCHC | 33.8Comment: Testing | 32.0 - 35.5 | EXTERNAL | | | | performed at [facility], [address] | g/dL | LAB | | | | [address], | | | | | | [place] [address] | | | | + + + + + + | RDW-CV | 42.9Comment: Testing | 37 - 53 fl | EXTERNAL | | | | performed at [facility], [address] | | LAB | | | | [address], | | | | | | [place] [address] | | | | + + + + + + | Platelet | 307Comment: Testing | 150 - 400 K/uL | EXTERNAL | | | Count | performed at [facility], [address] | | LAB | | | Plasma | [address], | | | | | | [place] [address] | | | | + + + + + + | MPV | 8.0Comment: Testing | fl | EXTERNAL | | | | performed at [facility], [address] | | LAB | | | | [address], | | | | | | [place] [address] | | | | + + + + + + | Differentia | AUTOMATEDComment: | | EXTERNAL | | | l Type | Testing performed at | | LAB | | | | [facility], [address] | | | | | | [place] | | | | | | [address] | | | | + + + + + + | % Segmented | 85.00Comment: Testing | % | EXTERNAL | | | | performed at [facility], [address] | | LAB | | | Neutrophils | [address], | | | | | | [place] [address] | | | | + + + + + + | % | 7.15Comment: Testing | % | EXTERNAL | | | Lymphocytes | performed at [facility], [address] | | LAB | | | | [address], | | | | | | [place] [address] | | | | + + + + + + | % Monocytes | 5.39Comment: Testing | % | EXTERNAL | | | | performed at [facility], [address] | | LAB | | | [address], | | | | | | [place] [address] | | | | + + + + + + | % | 1.86Comment: Testing | % | EXTERNAL | | | Eosinophils | performed at [facility], [address] | | LAB | | | [address], | | | | | | [place] [address] | | | | + + + + + + | % Basophils | 0.60Comment: Testing | % | EXTERNAL | | | | performed at [facility], [address] | | LAB | | | | [address], | | | | | | [place] [address] | | | | + + + + + + | Absolute | 13.51 (H)Comment: | 1.90 - 7.40 | EXTERNAL | | | Segmented | Testing performed at | K/uL | LAB | | | Neutrophils | [facility], [address] | | | | | | [place] | | | | | | [address] | | | | + + + + + + | Absolute | 1.14Comment: Testing | 1.00 - 3.90 | EXTERNAL | | | Lymphocytes | performed at [facility], [address] | K/uL | LAB | | | | [address], | | | | | | [place] [address] | | | | + + + + + + | Absolute | 0.86 (H)Comment: Testing | 0.00 - 0.80 | EXTERNAL | | | Monocytes | performed at [facility], [address] | [address] | LAB | | | | [address], | | | | | | [place] [address] | | | | + + + + + + | Absolute | 0.30Comment: Testing | 0.00 - 0.50 | EXTERNAL | | | Eosinophils | performed at [facility], [address] | [address]L | LAB | | | [address], | | | | | | [place] [address] | | | | + + + + + + | Absolute | 0.10Comment: Testing | 0.00 - 0.10 | EXTERNAL | | | Basophils | performed at [facility], [address] | K[address]L | LAB | | | | [address], | | | | | | [place] [address] | | | | + + + [...] EXTERNAL | | | | performed at [facility], [address] | mmol/L | LAB | | | | [address], | | | | | | [place] [address] | | | | + + + + + + | K | 4.0Comment: Testing | 3.5 - 4.9 | EXTERNAL | | | | performed at [facility], [address] | mmol/L | LAB | | | | [address], | | | | | | [place] [address] | | | | + + + + + + | Cl | 103Comment: Testing | 99 - 109 mmol/L | EXTERNAL | | | | performed at [facility], [address] | | LAB | | | | [address], | | | | | | [place] [address] | | | | + + + + + + | CO2 | 24Comment: Testing | 23 - 32 mmol/L | EXTERNAL | | | | performed at [facility], [address] | | LAB | | | | [address], | | | | | | [place] [address] | | | | + + + + + + | Anion Gap | 14Comment: Testing | 5 - 20 mmol/L | EXTERNAL | | | | performed at [facility], [address] | | LAB | | | | [address], | | | | | | [place] [address] | | | | + + + + + + | Glucose, | 207 (H)Comment: Testing | 65 - 99 mg/dL | EXTERNAL | | | Fasting | performed at [facility], [address] | | LAB | | | | [address], | | | | | | [place] [address] | | | | + + + + + + | BUN | 7 (L)Comment: Testing | 8 - 25 mg/dL | EXTERNAL | | | | performed at [facility], [address] | | LAB | | | | [address], | | | | | | [place] [address] | | | | + + + + + + | Creatinine | 0.9Comment: Testing | 0.70 - 1.30 | EXTERNAL | | | | performed at [facility], [address] | mg/dL | LAB | | | | [address], | | | | | | [place] [address] | | | | + + + + + + | BUN/Creatin | 8Comment: Testing | | EXTERNAL | | | ine Ratio | performed at [facility], [address] | | LAB | | | | [address], | | | | | | [place] [address] | | | | + + + + + + | Calcium | 8.2 (L)Comment: Testing | 8.5 - 10.5 | EXTERNAL | | | | performed at [facility], [address] | mg/dL | LAB | | | | [address], | | | | | | [place] [address] | | | | + + + [...] W | | | | | | [address], | | | | | | [place] [address] | | | | + + + [...] | | | Fingerstick | performed at [facility];[address] | | LAB | | | | [address];[place], [place] | | | | | | [address] | | | | + + + [...] with a red-brown discoloration of the bone. [employer] | | | sections are submitted in cassette B1 and placed into decal prior to | | | processing. [employer]:[facility] MICROSCOPIC EXAMINATION: A-B. Histologic | | | sections of all submitted blocks are examined by light microscopy. | | | These findings, together with the gross examination, support the | | | pathologic diagnosis. PERFORMING LABORATORY: Professional | | | interpretation and technical preparation was performed by [employer] | | | [facility]ostics, [address], | | | [place] [address] ([employer]: Rafat Lorenzo M.D.; [facility]#: | | | [id number]). Diagnostician: Isi Gore MD Pathologist | | [...] | | | Fingerstick | performed at [facility];[address] | | LAB | | | | [address];[place] | | | | | | [address] | | | | + + + [...] | | | Fingerstick | performed at [facility];[address] | | LAB | | | | [address];[place], [place] | | | | | | [address] | | | | + + + [...] | | | Fingerstick | performed at [facility];[address] | | LAB | | | | [address];[place] | | | | | | [address] | | | | + + + [...] EXTERNAL | | | | performed at [facility];[address] | | LAB | | | | [address];[place] | | | | | | [address] | | | | + + + + + + | PCO2 ART | 32 (L)Comment: Testing | 35 - 45 mmHg | EXTERNAL | | | | performed at [facility];[address] | | LAB | | | | [address];[place] | | | | | | [address] | | | | + + + + + + | PO2 ART | 81Comment: Testing | 80 - 105 mmHg | EXTERNAL | | | | performed at [facility];[address] | | LAB | | | | [address];[place] | | | | | | [address] | | | | + + + + + + | Lactate, | <0.30 (L)Comment: | 0.36 - 1.25 | EXTERNAL | | | Arterial | Testing performed at | mmol/L | LAB | | | | [address];[place] [address] | | | | + + + + + + | HCO3 ART | 19 (L)Comment: Testing | 22 - 26 mmol/L | EXTERNAL | | | | performed at [facility];[address] | | LAB | | | | [address];[place] | | | | | | [address] | | | | + + + + + + | POC | 20 (L)Comment: Testing | 23 - 27 mEq/L | EXTERNAL | | | APPEARANCE | performed at [facility];[address] | | LAB | | | [address]A | [address];[place] | | | | | | [address] | | | | + + + + + + | Base | 6 (H)Comment: Testing | 0.0 - 2.0 | EXTERNAL | | | deficit | performed at [facility];[address] | mmol/L | LAB | | | | [address];[place] | | | | | | [address] | | | | + + + + + + | O2 SAT ART | 96Comment: Testing | 95 - 98 % | EXTERNAL | | | | performed at [facility];[address] | | LAB | | | | [address];[place] | | | | | | [address] | | | | + + + + + + | FiO2, POC | 21Comment: Testing | % | EXTERNAL | | | | performed at [facility];[address] | | LAB | | | | [address];[place] | | | | | | [address] | | | | + + + [...] EXTERNAL | | | | performed at [facility];[address] | mmol/L | LAB | | | | [address];[place], [place] | | | | | | [address] | | | | + + + [...] | | | Fingerstick | performed at [facility] [place] | | LAB | | | | [address];[place], [place] | | | | | | [address] | | | | + + + [...] EXTERNAL | | | | performed at [facility], [address] | | LAB | | | | [place], | | | | | | [place] [address] | | | | + + + + + + | Clarity | CLEARComment: Testing | | EXTERNAL | | | | performed at [facility], [address] | | LAB | | | | [address], | | | | | | [place] [address] | | | | + + + + + + | Specific | 1.022Comment: Testing | 1.002 - 1.030 | EXTERNAL | | | Fisk | performed at [facility], [address] | | LAB | | | | [place], | | | | | | [place] [address] | | | | + + + + + + | Leukocyte | NEGATIVEComment: | | EXTERNAL | | | Esterase, | Testing performed at | | LAB | | | Urine | [facility], [address] | | | | | | [place] | | | | | | [address] | | | | + + + + + + | Nitrite, | NEGATIVEComment: Testing | | EXTERNAL | | | Urine | performed at [facility], [address] | | LAB | | | | [address], | | | | | | [place] [address] | | | | + + + + + + | Urobilinoge | NORMALComment: Testing | mg/dL | EXTERNAL | | | n, Urine | performed at [facility], [address] | | LAB | | | | [address], | | | | | | [place] [address] | | | | + + + + + + | Protein, | NEGATIVEComment: Testing | mg/dL | EXTERNAL | | | Urine | performed at [facility], [address] | | LAB | | | | [address], | | | | | | [place] [address] | | | | + + + + + + | pH, Urine | 6.0Comment: Testing | 5.0 - 8.0 | EXTERNAL | | | | performed at [facility], [address] | | LAB | | | | [address], | | | | | | [place] [address] | | | | + + + + + + | Blood, | NEGATIVEComment: Testing | | EXTERNAL | | | Urine | performed at [facility], [address] | | LAB | | | | [address], | | | | | | [place] [address] | | | | + + + + + + | Ketones | NEGATIVEComment: Testing | mg/dL | EXTERNAL | | | | performed at [facility], [address] | | LAB | | | | [address], | | | | | | [place] [address] | | | | + + + + + + | Bilirubin, | NEGATIVEComment: Testing | | EXTERNAL | | | Urine | performed at [facility], [address] | | LAB | | | | [address], | | | | | | [place] [address] | | | | + + + + + + | Glucose, | >500 (A)Comment: Testing | mg/dL | EXTERNAL | | | Urine | performed at [facility], [address] | | LAB | | | | [address], | | | | | | [place] [address] | | | | + + [...] | | LAB | | | | [facility] [place];[place] [address] | | | | + + + + + + | PCO2 ART | 56 (H)Comment: Testing | 35 - 45 mmHg | EXTERNAL | | | | performed at [facility] [place];[address] | | LAB | | | | [address];[place] | | | | | | [address] | | | | + + + + + + | PO2 ART | 74 (L)Comment: Testing | 80 - 105 mmHg | EXTERNAL | | | | performed at [facility] [place] | | LAB | | | | [address];[place] | | | | | | [address] | | | | + + + + + + | Lactate, | 7.11 (H)Comment: Testing | 0.36 - 1.25 | EXTERNAL | | | Arterial | performed at [facility] [place] | mmol/L | LAB | | | | [address];[place] | | | | | | [address] | | | | + + + + + + | HCO3 ART | 9 (L)Comment: Testing | 22 - 26 mmol/L | EXTERNAL | | | | performed at [facility] [place] | | LAB | | | | [address];[place] | | | | | | [address] | | | | + + + + + + | POC | 11 (L)Comment: Testing | 23 - 27 mEq/L | EXTERNAL | | | APPEARANCE | performed at [facility] [place] | | LAB | | | UA | [address];[place] | | | | | | [address] | | | | + + + + + + | Base | 25 (H)Comment: Testing | 0.0 - 2.0 | EXTERNAL | | | deficit | performed at [facility] [place] | mmol/L | LAB | | | | [address];[place] | | | | | | [address] | | | | + + + + + + | O2 SAT ART | 77 (L)Comment: Testing | 95 - 98 % | EXTERNAL | | | | performed at [facility] [place] | | LAB | | | | [address];[place] | | | | | | [address] | | | | + + + + + + | FiO2, POC | 100Comment: Testing | % | EXTERNAL | | | | performed at [facility] [place] | | LAB | | | | [address];[place] | | | | | | [address] | | | | + + + [...] | | | COUNT | performed at [facility], [address] | M/uL | LAB | | | | [address], | | | | | | [place] [address] | | | | + + + + + + | Hgb | 11.4 (L)Comment: Testing | 13.2 - 17.0 | EXTERNAL | | | | performed at [facility], [address] | g/dL | LAB | | | | [address], | | | | | | [place] [address] | | | | + + + + + + | Hematocrit, | 35.1 (L)Comment: Testing | 39.0 - 50.0 % | EXTERNAL | | | POC | performed at [facility], [address] | | LAB | | | | [address], | | | | | | [place] [address] | | | | + + + + + + | MCV | 86.7Comment: Testing | 80.0 - 100.0 fl | EXTERNAL | | | | performed at [facility], [address] | | LAB | | | | [address], | | | | | | [place] [address] | | | | + + + + + + | MCH | 28.2Comment: Testing | 27.0 - 34.0 pg | EXTERNAL | | | | performed at [facility], [address] | | LAB | | | [address], | | | | | | [place] [address] | | | | + + + + + + | MCHC | 32.5Comment: Testing | 32.0 - 35.5 | EXTERNAL | | | | performed at [facility], [address] | g/dL | LAB | | | | [address], | | | | | | [place] [address] | | | | + + + + + + | RDW-CV | 42.0Comment: Testing | 37 - 53 fl | EXTERNAL | | | | performed at [facility], [address] | | LAB | | | | [address], | | | | | | [place] [address] | | | | + + + + + + | Platelet | 262Comment: Testing | 150 - 400 K/uL | EXTERNAL | | | Count | performed at [facility], [address] | | LAB | | | Plasma | [address], | | | | | | [place] [address] | | | | + + + + + + | MPV | 8.4Comment: Testing | fl | EXTERNAL | | | | performed at [facility], [address] | | LAB | | | | [address], | | | | | | [place] [address] | | | | + + + + + + | Differentia | AUTOMATEDComment: | | EXTERNAL | | | l Type | Testing performed at | | LAB | | | | [facility], [address] | | | | | | [place] | | | | | | [address] | | | | + + + + + + | % Segmented | 82.60Comment: Testing | % | EXTERNAL | | | | performed at [facility], [address] | | LAB | | | Neutrophils | [address], | | | | | | [place] [address] | | | | + + + + + + | % | 7.47Comment: Testing | % | EXTERNAL | | | Lymphocytes | performed at [facility], [address] | | LAB | | | | [address], | | | | | | [place] [address] | | | | + + + + + + | % Monocytes | 6.29Comment: Testing | % | EXTERNAL | | | | performed at [facility], [address] | | LAB | | | | [address], | | | | | | [place] [address] | | | | + + + + + + | % | 3.29Comment: Testing | % | EXTERNAL | | | Eosinophils | performed at [facility], [address] | | LAB | | | | [address], | | | | | | [place] [address] | | | | + + + + + + | % Basophils | 0.35Comment: Testing | % | EXTERNAL | | | | performed at [facility], [address] | | LAB | | | | [address], | | | | | | [place] [address] | | | | + + + + + + | Absolute | 13.94 (H)Comment: | 1.90 - 7.40 | EXTERNAL | | | Segmented | Testing performed at | K/uL | LAB | | | Neutrophils | [facility], [address] | | | | | | [place] | | | | | | [address] | | | | + + + + + + | Absolute | 1.26Comment: Testing | 1.00 - 3.90 | EXTERNAL | | | Lymphocytes | performed at [facility], [address] | K/uL | LAB | | | | [address], | | | | | | [place] [address] | | | | + + + + + + | Absolute | 1.06 (H)Comment: Testing | 0.00 - 0.80 | EXTERNAL | | | Monocytes | performed at [facility], [address] | K/uL | LAB | | | | [address], | | | | | | [place] [address] | | | | + + + + + + | Absolute | 0.56 (H)Comment: Testing | 0.00 - 0.50 | EXTERNAL | | | Eosinophils | performed at [facility], [address] | K/uL | LAB | | | | [address], | | | | | | [place] [address] | | | | + + + + + + | Absolute | 0.06Comment: Testing | 0.00 - 0.10 | EXTERNAL | | | Basophils | performed at [facility], [address] | K/uL | LAB | | | | [address], | | | | | | [place] [address] | | | | + + + [...] EXTERNAL | | | | performed at [facility], [address] | | LAB | | | | [address], | | | | | | [place] [address] | | | | + + + [...] EXTERNAL | | | | performed at [facility], [address] | | LAB | | | | [address], | | | | | | [place] [address] | | | | + + + [...] | EXTERNAL | | | A1c | [employer] [facility] | | LAB | | | [...] | | | | | performed at [facility], [address] | | | | | | [address] [facility], | | | | | | [place] [address] | | | | + + + [...] | | | | | performed at [facility], [address] | | | | | | [facility], | | | | | | [place] [address] | | | | + + + [...] | | | | [place] [address] | | | | + + + + + + | K | 4.6Comment: Testing | 3.5 - 4.9 | EXTERNAL | | | | performed at [facility], [address] | mmol/L | LAB | | | | [address], | | | | | | [place] [address] | | | | + + + + + + | Cl | 103Comment: Testing | 99 - 109 mmol/L | EXTERNAL | | | | performed at [facility], [address] | | LAB | | | | [address], | | | | | | [place] [address] | | | | + + + + + + | CO2 | 22 (L)Comment: Testing | 23 - 32 mmol/L | EXTERNAL | | | | performed at [facility], [address] | | LAB | | | | [address], | | | | | | [place] [address] | | | | + + + + + + | Anion Gap | 14Comment: Testing | 5 - 20 mmol/L | EXTERNAL | | | | performed at [facility], [address] | | LAB | | | | [address], | | | | | | [place] [address] | | | | + + + + + + | Glucose, | 392 (H)Comment: Testing | 65 - 99 mg/dL | EXTERNAL | | | Fasting | performed at [facility], [address] | | LAB | | | | [address], | | | | | | [place] [address] | | | | + + + + + + | BUN | 12Comment: Testing | 8 - 25 mg/dL | EXTERNAL | | | | performed at [facility], [address] | | LAB | | | | [address], | | | | | | [place] [address] | | | | + + + + + + | Creatinine | 1.0Comment: Testing | 0.70 - 1.30 | EXTERNAL | | | | performed at [facility], [address] | mg/dL | LAB | | | | [address], | | | | | | [place] [address] | | | | + + + + + + | BUN/Creatin | 12Comment: Testing | | EXTERNAL | | | ine Ratio | performed at [facility], [address] | | LAB | | | | [address], | | | | | | [place] [address] | | | | + + + + + + | Calcium | 7.6 (L)Comment: Testing | 8.5 - 10.5 | EXTERNAL | | | | performed at [facility], [address] | mg/dL | LAB | | | | [address], | | | | | | [place] [address] | | | | + + + + + + | Protein, | 6.4Comment: Testing | 6.3 - 8.2 g/dL | EXTERNAL | | | Total | performed at [facility], [address] | | LAB | | | | [address], | | | | | | [place] [address] | | | | + + + + + + | Albumin | 2.2 (L)Comment: Testing | 3.6 - 5.0 g/dL | EXTERNAL | | | | performed at [facility], [address] | | LAB | | | | [address], | | | | | | [place] [address] | | | | + + + + + + | Globulin | 4.2Comment: Testing | 1.3 - 4.9 g/dL | EXTERNAL | | | | performed at [facility], [address] | | LAB | | | | [address], | | | | | | [place] [address] | | | | + + + + + + | A/G Ratio | 0.5 (L)Comment: Testing | 1.0 - 2.4 | EXTERNAL | | | | performed at [facility], [address] | | LAB | | | | [address], | | | | | | [place] [address] | | | | + + + + + + | Bilirubin | 0.6Comment: Testing | 0.1 - 1.5 mg/dL | EXTERNAL | | | Total | performed at [facility], [address] | | LAB | | | | [address], | | | | | | [place] [address] | | | | + + + + + + | ALP, | 182 (H)Comment: Testing | 35 - 115 U/L | EXTERNAL | | | External | performed at [facility], [address] | | LAB | | | | [address], | | | | | | [place] [address] | | | | + + + + + + | AST | 9 (L)Comment: Testing | 10 - 45 U/L | EXTERNAL | | | | performed at [facility], [address] | | LAB | | | | [address], | | | | | | [place] [address] | | | | + + + + + + | ALT | 16Comment: Testing | 10 - 65 U/L | EXTERNAL | | | | performed at [facility], [address] | | LAB | | | | [address], | | | | | | [place] [address] | | | | + + + [...] | | | | | | at [facility], [address] | | | | | | [address], | | | | | | [place] [address] | | | | + + + [...] | | | Fingerstick | performed at [facility] [place] | | LAB | | | | [address];[place], [place] | | | | | | [address] | | | | + + + [...] EXTERNAL LAB | | Testing performed at [facility] [place] [place] [address];[place] [address] MRSA PCR | | | POSITIVE for MRSA by PCRAbnormal | | | Testing performed at [address];[place] [address] | | + + + + +---------+ [...] | | | Fingerstick | performed at [facility] [place] | | LAB | | | | [address];[place] | | | | | | [address] | | | | + + + [...] EXTERNAL | | | | performed at [facility] [place] | mmol/L | LAB | | | | [address];[place] | | | | | | [address] | | | | + + + + + + | K | 4.0Comment: Testing | 3.5 - 4.9 | EXTERNAL | | | | performed at [facility] [place] | mmol/L | LAB | | | | [address];[place] | | | | | | [address] | | | | + + + + + + | Cl | 104Comment: Testing | 99 - 109 mmol/L | EXTERNAL | | | | performed at [facility] [place] | | LAB | | | | [address];[place] | | | | | | [address] | | | | + + + + + + | CO2 | 21 (L)Comment: Testing | 23 - 32 mmol/L | EXTERNAL | | | | performed at [facility] [place] | | LAB | | | | [address];[place] | | | | | | [address] | | | | + + + + + + | Anion Gap | 13Comment: Testing | 5 - 20 mmol/L | EXTERNAL | | | | performed at [facility] [place] | | LAB | | | | [address];[place] | | | | | | [address] | | | | + + + + + + | Glucose, | 254 (H)Comment: Testing | 65 - 99 mg/dL | EXTERNAL | | | Fasting | performed at [facility] [place] | | LAB | | | | [address];[place] | | | | | | [address] | | | | + + + + + + | BUN | 12Comment: Testing | 8 - 25 mg/dL | EXTERNAL | | | | performed at [facility] [place] | | LAB | | | | [address];[place] | | | | | | [address] | | | | + + + + + + | Creatinine | 0.95Comment: Testing | 0.70 - 1.30 | EXTERNAL | | | | performed at [facility] [place] | mg/dL | LAB | | | | [address];[place] | | | | | | [address] | | | | + + + + + + | BUN/Creatin | 13Comment: Testing | | EXTERNAL | | | ine Ratio | performed at [facility] [place] | | LAB | | | | [address];[place] | | | | | | [address] | | | | + + + + + + | Calcium | 6.9 (L)Comment: Testing | 8.5 - 10.5 | EXTERNAL | | | | performed at [facility] [place] | mg/dL | LAB | | | | [address];[place] | | | | | | [address] | | | | + + + + + + | Protein, | 6.3Comment: Testing | 6.3 - 8.2 g/dL | EXTERNAL | | | Total | performed at [facility] [place];[address] | | LAB | | | | [address];[place] | | | | | | [address] | | | | + + + + + + | Albumin | 2.1 (L)Comment: Testing | 3.6 - 5.0 g/dL | EXTERNAL | | | | performed at [facility] [place] | | LAB | | | | [address];[place] | | | | | | [address] | | | | + + + + + + | Globulin | 4.2Comment: Testing | 1.3 - 4.9 g/dL | EXTERNAL | | | | performed at [facility] [place] | | LAB | | | | [address];[place] | | | | | | [address] | | | | + + + + + + | A/G Ratio | 0.5 (L)Comment: Testing | 1.0 - 2.4 | EXTERNAL | | | | performed at [facility] [place] | | LAB | | | | [address];[place] | | | | | | [address] | | | | + + + + + + | Bilirubin | 0.4Comment: Testing | 0.1 - 1.5 mg/dL | EXTERNAL | | | Total | performed at [facility] [place] | | LAB | | | | [address];[place] | | | | | | [address] | | | | + + + + + + | ALP, | 181 (H)Comment: Testing | 35 - 115 U/L | EXTERNAL | | | External | performed at [facility] [place] | | LAB | | | | [address];[place] | | | | | | [address] | | | | + + + + + + | AST | 10Comment: Testing | 10 - 45 U/L | EXTERNAL | | | | performed at [facility] [place];[address] | | LAB | | | | [address];[place] | | | | | | [address] | | | | + + + + + + | ALT | 14Comment: Testing | 10 - 65 U/L | EXTERNAL | | | | performed at [facility] [place];[address] | | LAB | | | | [address];[place] | | | | | | [address] | | | | + + + [...] | | | | | | at [facility] [place];[address];[place] [address] | | | | + + + [...] 9:30AM Referring Provider Line: | | | [phone] ID: [id number] | | + + + [...] | | 2016 9:30AM Referring Provider Line: [phone] ID: [id number] | + + POC Glucose (12/14/2016 11:34 PM PDT) + + + + + + | Component | Value | Ref Range | Performed | Pathologist | | | | | At | Signature | + + + + + + | Glucose, | 172 (H)Comment: Testing | 65 - 99 mg/dL | EXTERNAL | | | Fingerstick | performed at [facility] [place] | | LAB | | | | [address];[place], [place] | | | | | | [address] | | | | + + + [...] EXTERNAL | | | | performed at [facility];[address] | mmol/L | LAB | | | | [address];[place], [place] | | | | | | [address] [...] | | | Blood | performed at [facility];[address] | | LAB | | | | [address];[place], [place] | | | | | | [address] | | | | + + + [...] EXTERNAL | | | | performed at [facility] [place] | | LAB | | | | [address];[place] | | | | | | [address] | | | | + + + [...] K/uL | LAB | | | | [facility] [place];[place] [address] | | | | + + + + + + | RED CELL | 4.20Comment: Testing | 4.20 - 5.70 | EXTERNAL | | | COUNT | performed at [facility] [place] | M/uL | LAB | | | | [address];[place] | | | | | | [address] | | | | + + + + + + | Hgb | 12.4 (L)Comment: Testing | 13.2 - 17.0 | EXTERNAL | | | | performed at [facility];[address] | g/dL | LAB | | | | [address];[place] | | | | | | [address] | | | | + + + + + + | Hematocrit, | 36.3 (L)Comment: Testing | 39.0 - 50.0 % | EXTERNAL | | | POC | performed at [facility];[address] | | LAB | | | | [address];[place] | | | | | | [address] | | | | + + + + + + | MCV | 86.5Comment: Testing | 80.0 - 100.0 fl | EXTERNAL | | | | performed at [facility];[address] | | LAB | | | | [address];[place] | | | | | | [address] | | | | + + + + + + | MCH | 29.4Comment: Testing | 27.0 - 34.0 pg | EXTERNAL | | | | performed at [facility];[address] | | LAB | | | | [address];[place] | | | | | | [address] | | | | + + + + + + | MCHC | 34.0Comment: Testing | 32.0 - 35.5 | EXTERNAL | | | | performed at [facility];[address] | g/dL | LAB | | | | [address];[place] | | | | | | [address] | | | | + + + + + + | RDW-CV | 42.9Comment: Testing | 37 - 53 fl | EXTERNAL | | | | performed at [facility];[address] | | LAB | | | | [address];[place] | | | | | | [address] | | | | + + + + + + | Platelet | 258Comment: Testing | 150 - 400 K/uL | EXTERNAL | | | Count | performed at [facility];[address] | | LAB | | | Plasma | [address];[place] | | | | | | [address] | | | | + + + + + + | MPV | 8.3Comment: Testing | fl | EXTERNAL | | | | performed at [facility];[address] | | LAB | | | | [address];[place] | | | | | | [address] | | | | + + + + + + | Differentia | AUTOMATEDComment: | | EXTERNAL | | | l Type | Testing performed at | | LAB | | | | [facility];[address];[place] [address] | | | | + + + + + + | % Segmented | 87.43Comment: Testing | % | EXTERNAL | | | | performed at [facility];[address] | | LAB | | | Neutrophils | [address];[place] | | | | | | [address] | | | | + + + + + + | % | 5.56Comment: Testing | % | EXTERNAL | | | Lymphocytes | performed at [facility];[address] | | LAB | | | | [address];[place] | | | | | | [address] | | | | + + + + + + | % Monocytes | 4.36Comment: Testing | % | EXTERNAL | | | | performed at [facility];[address] | | LAB | | | | [address];[place] | | | | | | [address] | | | | + + + + + + | % | 1.84Comment: Testing | % | EXTERNAL | | | Eosinophils | performed at [facility];[address] | | LAB | | | | [address];[place] | | | | | | [address] | | | | + + + + + + | % Basophils | 0.81Comment: Testing | % | EXTERNAL | | | | performed at [facility];[address] | | LAB | | | | [address];[place] | | | | | | [address] | | | | + + + + + + | Absolute | 17.02 (H)Comment: | 1.90 - 7.40 | EXTERNAL | | | Segmented | Testing performed at | K/uL | LAB | | | Neutrophils | [facility];[address];[place] [address] | | | | + + + + + + | Absolute | 1.08Comment: Testing | 1.00 - 3.90 | EXTERNAL | | | Lymphocytes | performed at [facility];[address] | K/uL | LAB | | | | [address];[place] | | | | | | [address] | | | | + + + + + + | Absolute | 0.85 (H)Comment: Testing | 0.00 - 0.80 | EXTERNAL | | | Monocytes | performed at [facility];[address] | K/uL | LAB | | | | [address];[place] | | | | | | [address] | | | | + + + + + + | Absolute | 0.36Comment: Testing | 0.00 - 0.50 | EXTERNAL | | | Eosinophils | performed at [facility];[address] | K/uL | LAB | | | | [address];[place] | | | | | | [address] | | | | + + + + + + | Absolute | 0.16 (H)Comment: Testing | 0.00 - 0.10 | EXTERNAL | | | Basophils | performed at [facility];[address] | K/uL | LAB | | | | [address];[place] | | | | | | [address] | | | | + + + + + + | RBC | RBC AND PLT MORPHOLOGY | | EXTERNAL | | | Morphology | APPEAR NORMALComment: | | LAB | | | | Testing performed at | | | | | | [facility] [place];[place] [address] | | | | + + + + + + | Platelet | ADEQUATEComment: Testing | | EXTERNAL | | | Estimate | performed at [facility] [place] | | LAB | | | | [address];[place] | | | | | | [address] | | | | + + + + + + | Differentia | SLIDE SCANNED, AGREES | | EXTERNAL | | | l Comments | WITH AUTOMATED | | LAB | | | | RESULTS.Comment: Testing | | | | | | performed at [facility] [place] | | | | | | [address];[place], [place] | | | | | | [address] | | | | + + + [...] EXTERNAL | | | | performed at [facility] [place];[facility] | | LAB | | | | [address];[place], [place] | | | | | | [address] | | | | + + + [...] EXTERNAL | | | | performed at [facility] [place] | mmol/L | LAB | | | | [address];[place] | | | | | | [address] | | | | + + + + + + | K | 5.1 (H)Comment: MODERATE | 3.5 - 4.9 | EXTERNAL | | | | HEMOLYSISTesting | mmol/L | LAB | | | | performed at [facility] [place] | | | | | | [address];[place] | | | | | | [address] | | | | + + + + + + | Cl | 93 (L)Comment: Testing | 99 - 109 mmol/L | EXTERNAL | | | | performed at [facility] [place] | | LAB | | | | [address];[place] | | | | | | [address] | | | | + + + + + + | CO2 | 23Comment: Testing | 23 - 32 mmol/L | EXTERNAL | | | | performed at [facility] [place] | | LAB | | | | [address];[place] | | | | | | [address] | | | | + + + + + + | Anion Gap | 14Comment: Testing | 5 - 20 mmol/L | EXTERNAL | | | | performed at [facility] [place] | | LAB | | | | [address];[place] | | | | | | [address] | | | | + + + + + + | Glucose, | 635 (HH)Comment: CALLED | 65 - 99 mg/dL | EXTERNAL | | | Fasting | DR LING COUCH | | LAB | | | | AT 2216 BY RHREAD BACK | | | | | | RESULTS VERIFIEDTesting | | | | | | performed at [facility] [place] | | | | | | [address];[place] | | | | | | [address] | | | | + + + + + + | BUN | 13Comment: Testing | 8 - 25 mg/dL | EXTERNAL | | | | performed at [facility] [place] | | LAB | | | | [address];[place] | | | | | | [address] | | | | + + + + + + | Creatinine | 1.4 (H)Comment: Testing | 0.70 - 1.30 | EXTERNAL | | | | performed at [facility] [place] | mg/dL | LAB | | | | [address];[place] | | | | | | [address] | | | | + + + + + + | BUN/Creatin | 10Comment: Testing | | EXTERNAL | | | ine Ratio | performed at [facility] [place] | | LAB | | | | [address];[place] | | | | | | [address] | | | | + + + + + + | Calcium | 7.9 (L)Comment: Testing | 8.5 - 10.5 | EXTERNAL | | | | performed at [facility] | mg/dL | LAB | | | | [address];[place] | | | | | | [address] | | | | + + + + + + | Protein, | 7.7Comment: Testing | 6.3 - 8.2 g/dL | EXTERNAL | | | Total | performed at [facility] | | LAB | | | | [address];[place] | | | | | | [address] | | | | + + + + + + | Albumin | 2.6 (L)Comment: Testing | 3.6 - 5.0 g/dL | EXTERNAL | | | | performed at [facility] | | LAB | | | | [address];[place] | | | | | | [address] | | | | + + + + + + | Globulin | 5.1 (H)Comment: Testing | 1.3 - 4.9 g/dL | EXTERNAL | | | | performed at [facility] | | LAB | | | | [address];[place] | | | | | | [address] | | | | + + + + + + | A/G Ratio | 0.5 (L)Comment: Testing | 1.0 - 2.4 | EXTERNAL | | | | performed at [facility] | | LAB | | | | [address];[place] | | | | | | [address] | | | | + + + + + + | Bilirubin | 0.6Comment: Testing | 0.1 - 1.5 mg/dL | EXTERNAL | | | Total | performed at [facility] | | LAB | | | | [address];[place] | | | | | | [address] | | | | + + + + + + | ALP, | 259 (H)Comment: Testing | 35 - 115 U/L | EXTERNAL | | | External | performed at [facility] | | LAB | | | | [address];[place] | | | | | | [address] | | | | + + + + + + | AST | 17Comment: MODERATE | 10 - 45 U/L | EXTERNAL | | | | HEMOLYSISTesting | | LAB | | | | performed at [facility] | | | | | | [address];[place] | | | | | | [address] | | | | + + + + + + | ALT | 17Comment: Testing | 10 - 65 U/L | EXTERNAL | | | | performed at [facility] | | LAB | | | | [address];[place] | | | | | | [address] | | | | + + + [...] | | | | | | at [facility]888 [facility] | | | | | | [facility];[place] [address] | | | | + + + [...] 2 diabetes mellitus with hyperglycemia, unspecified 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
--- OUTSIDE RECORDS SUMMARY | ~2019-10-05 | XMS | Encounter Summary ---
Demographics + + + | Address | [address] | | | [place] [address] | + + + | Home Phone [...] Team Providers + +------+ + | Care Jv Baseball Coach Name | Role | Phone | + +------+ + | Estrella Light PA-C | PCP | | + +------+ + Encounter Details +--------+ + + + + | Date | Type | Department | Care Team | Description | +--------+ + + + + | 01/13/ | Hospital | [facility] | Conversion | Diagnosis unknown | | 2018 | Encounter | CONVERSION DEP [address] | Transaction, | | | | | [address]AYLE [address] | Provider Unknown | | | | | [address] | | | | | | [address] | (Fax) | | | | | [phone] | | | +--------+ + + + [...]
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
--- OUTSIDE RECORDS SUMMARY | ~2019-10-05 | XMS | Encounter Summary ---
Demographics + + + | Address | [address] | | | [place] [address] | + + + | Home Phone [...] Providers + +------+ + | Care Hand Printed Circuit Board Assembler Name | Role | Phone | [...] antibody | [address] [place], | | | | | positive | [place], [place] | [place] [address] | | | | | Chronic | [address] [place] | [place], | | | | | diarrhea | [place], [place] | [place] [address] | | | | | Procedures | [address] | Phone: | | | | | [place] | Phone: | [phone] | | | | | COLONOSCOPY | [phone] | Fax: | | | | | FLX DX | Fax: | [phone] | | | | | W/COLLJ SPEC | [phone] | | | | | | WHEN PFRMD | | | | | | | [place] | | | | | | | COLONOSCOPY | | | | | | | W/BIOPSY | | | | | | | SINGLE/MULTI | | | | | | | PLE DE | | | | | | | COLSC FLX | | | | | | | W/RMVL OF | | | | | | | TUMOR POLYP | | | | | | | LESION SNARE | | | | | | | TQ DE | | | | | | | ESOPHAGOGAST | | | | | | | RODUODENOSCO | | | | | | | PY TRANSORAL | | | | | | | DIAGNOSTIC | | | | | | | DE EDG | | | | | | [...] 2015 | | GASTROENTEROLOGY | [address], [place] | (egd/colon ) | | | | [address] [place] | [address] [place], [place] | | | | | [address] [place], [place] | [address] | | | | | [address] | | | | | | [phone] | | | +--------+ + + + [...]
[~2019-10-05 20:48] MED LIST changes: +ASPIR 8181 MG PO
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
== END 2019-10-05 22:49 | disposition home or self-care (01) ==
LOC: ED 20:48
PROC: 093K7ZZ Control Bleeding in Nasal Mucosa and Soft Tissue, Via Natural or Artificial Opening (ICD-10-PCS; principal; 2019-10-05)
DX: R04.0 Epistaxis (principal); E11.9 Type 2 diabetes mellitus without complications; I10 Essential (primary) hypertension; Z87.891 Personal history of nicotine dependence; Z88.0 Allergy status to penicillin; Z79.82 Long term (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 of aspirin
CPT/HCPCS: 30903; 85025; 85610; 85730; 99283-25

== ENCOUNTER 2019-10-08 17:01 | Emergency (ER) | payer OTHER ==
[~2019-10-08] VITALS: Ht 177.8 cm; Wt 74.8 kg
--- OUTSIDE RECORDS SUMMARY | ~2019-10-08 | XMS | Encounter Summary ---
Demographics + + + | Address | [address] | | | [place] [address] | + + + | Home Phone | | + + + | Preferred Language | Unknown | + + + | Marital Status | Single | + + + | Judaism Affiliation | 1077 | + + + | Race | Unknown | + + + | Ethnic Group | Unknown | + + + Author + + + | Author | [facility] | | | and [place] | + + + | Organization | [facility] | | [...] Team Providers + +------+ + | Care Allergist Name | Role | Phone | + +------+ + | Estrella Light PA-C | PCP | | + +------+ + Encounter Details +--------+ + + + + | Date | Type | Department | Care Team | Description | +--------+ + + + + | 01/13/ | Hospital | [facility] | Conversion | Diagnosis unknown | | 2018 | Encounter | CONVERSION DEP [address] | Transaction, | | | | | [address] | Provider Unknown | | | | | [place] | | | | | | [address] | (Fax) | | | | | [phone] | | | +--------+ + + + [...]
--- OUTSIDE RECORDS SUMMARY | ~2019-10-08 | XMS | Encounter Summary ---
Demographics + + + | Address | [address] | | | [place] [address] | + + + | Home Phone | | + + + | Preferred Language | Unknown | + + + | Marital Status | Single | + + + | Scientologist Affiliation | 1077 | + + + | Race | Unknown | + + + | Ethnic Group | Unknown | + + + Author + + + | Author | [facility] | | | and [place] | + + + | Organization | [facility] | | | [...] Team Providers + +------+ + | Care Fuel Oil Truck Driver Name | Role | Phone | + +------+ + | Estrella Light PA-C | PCP | | + +------+ + Encounter Details +--------+ + + + + | Date | Type | Department | Care Team | Description | +--------+ + + + + | 09/22/ | Anesthesia | [facility] | Ilya Dodge | | | 2015 | Event | MED CTR MP INTRA OP | MD Ebonie [address] | | | | | [address] | [facility] | | | | | [place] | [place] [address] | | | | | [address] | [phone] | | | | | [phone] | | | +--------+ + + + + Anesthesia Record + + + + + | Procedure Name | Responsible | Anesthesia Start | Anesthesia Stop Time | | | Anesthesiologist | Time | | + + + + + | COLONOSCOPY (N/A | | | | | Rectum) | | | | + + + + + + + | No events on file. | + + +------+ | Meds | +------+ + + + No medications | on file. | + + + + + | No agents on file. | + + + + | No blood administrations on file. | + + + + | No LDAs on file. | + + documented in this encounter Social History + + + +--------+ + [...]
--- OUTSIDE RECORDS SUMMARY | ~2019-10-08 | XMS | Encounter Summary ---
Demographics + + + | Address | [address] | | | [place] [address] | + + + | Home Phone | | + + + | Preferred Language | Unknown | + + + | Marital Status | Single | + + + | Yazidi Affiliation | 1077 | + + + [...] Team Providers + +------+ + | Care Regional Education Manager Name | Role | Phone | [...] antibody | [address] [place], | | | | | positive | [place], [place] | [place] [address] | | | | | Chronic | [address] [place] | [place], | | | | | diarrhea | [place], [place] | [place] [address] | | | | | Procedures | [address] | Phone: | | | | | MD | Phone: | [phone] | | | | | COLONOSCOPY | [phone] | Fax: | | | | | FLX DX | Fax: | [phone] | | | | | W/COLLJ SPEC | [phone] | | | | | | WHEN PFRMD | | | | | | | MD | | | | | | | COLONOSCOPY | | | | | | | W/BIOPSY | | | | | | | SINGLE/MULTI | | | | | | | PLE MD | | | | | | | COLSC FLX | | | | | | | W/RMVL OF | | | | | | | TUMOR POLYP | | | | | | | LESION SNARE | | | | | | | TQ MD | | | | | | | ESOPHAGOGAST | | | | | | | RODUODENOSCO | | | | | | | PY TRANSORAL | | | | | | | DIAGNOSTIC | | | | | | | MD EDG | | | | | | [...] 2015 | | GASTROENTEROLOGY | [address], [place] | (egd/colon ) | | | | [address] [place] | [address] [place], [place] | | | | | [address] [place], [place] | [address] | | | | | [address] | | | | | | [phone] | | | +--------+ + + + [...]
--- OUTSIDE RECORDS SUMMARY | ~2019-10-08 | XMS | Encounter Summary ---
Demographics + + + | Address | [address] | | | [place] [address] | + + + | Home Phone | | + + + | Preferred Language | Unknown | + + + | Marital Status | Single | + + + | Voodoo Affiliation | 1077 | + + + [...] Team Providers + +------+ + | Care Bullet Lubricant Mixer Name | Role | Phone | + +------+ + PCP | Unavailable | + +------+ + Encounter Details +--------+ + + + + | Date | Type | Department | Care Team | Description | +--------+ + + + + | 07/19/ | Hospital | [facility] | | | | 1992 | Encounter | MED CTR MP INTRA OP | | | | | | [address] | | | | | | [place] | | | | | | [address] | | | | | | [phone] | | | +--------+ + + + [...]
--- OUTSIDE RECORDS SUMMARY | ~2019-10-08 | XMS | Encounter Summary ---
Demographics + + + | Address | [address] | | | [place] [address] | + + + | Home Phone | | + + + | Preferred Language | Unknown | + + + | Marital Status | Single | + + + | Tenriism Affiliation | 1077 | + + + [...] Team Providers + +------+ + | Care Case Planner Name | Role | Phone | + [...] 2014 | | GASTROENTEROLOGY | [address], [place] | | | | | [address] [place] | [address] [place] | | | | | [address] [place], [place] | [address] | | | | | [address] | | | | | | [phone] | | | +--------+ + + + [...]
--- OUTSIDE RECORDS SUMMARY | ~2019-10-08 | XMS | Encounter Summary ---
Demographics + + + | Address | [address] | | | [place] [address] | + + + | Home Phone | | + + + | Preferred Language | Unknown | + + + | Marital Status | Single | + + + | Spiritism Affiliation | 1077 | + + + [...] Team Providers + +------+ + | Care Mine Manager Name | Role | Phone | [...] | | type | [address] | [place], | | | | | | [place], | [place] [address] | | | | | | [place] [address] | Phone: | | | | | | Phone: | [phone] | | | | | | [phone] | Fax: | | | | | | Fax: | [phone] | | | | | | [phone] | | +--------+ + + + + + Reason for Visit + + + | Reason | Comments | + + + | Hematuria | | + + + Encounter Details +--------+ + + + + | Date | Type | Department | Care Team | Description | +--------+ + + + + | 10/16/ | Emergency | [facility] | Keenan Estrada MD | Hematuria, | | 2019 | | MED CTR EMERGENCY | [address] | unspecified type | | | | CENTER [address] | [place] | (Primary Dx) | | | | [place] | [id number] | | | | | [address] | | | | | | [phone] | | | +--------+ + + + [...] + + +--------+ + + | Urology [facility] - | Outpatient | Routin | [...] + | [facility] | [address] | [place] | [phone] | | [facility] | | [address] | | | - LABORATORY | | [...] - 1.030 | [facility] | | | [place] | | | [facility] | | [...] [address] | [place] | [phone] | | [facility] | | [address] | | | - LABORATORY | | [...]
--- OUTSIDE RECORDS SUMMARY | ~2019-10-08 | XMS | Clinical Summary ---
Demographics + + + | Address | [address] [place] [address] RD | | | [place] [address] | + + + | Home Phone | | + + + | Preferred Language | Unknown | + + + | Marital Status | Single | + + + | Shinto Affiliation | 1077 | + + + | Race | Unknown | + + + | Ethnic Group | Unknown | + + + Author + + + | Author | [facility] (Historical as of | | | 05-18-19) | + + + | Organization | [facility] (Historical as of | | | 05-18-19) [...] Team Providers + +------+ + | Care Engineering Manager Electronics Name | Role | Phone | + [...] right foot, limited to breakdown of skin ([facility]) | 01/13/2018 | + + + | Cellulitis and abscess of foot | 12/15/2016 | + + + | Osteomyelitis ([facility]) | 12/15/2016 | + + + | Essential hypertension | 03/04/2015 | + + + | Type 2 diabetes mellitus, with long-term current use of insulin | 03/04/2015 | | ([facility]) | | + + + Family History [...] +------+-------+ + | MEDICAID | [place] | [id number] | | | [address] | | | N | | | | [place], [place] | | | [place] | | | | [address] | | | DESIGN CHIEF | | | | | + +--------+ +------+-------+ + | [employer] | YELLOW | [id number] | | | | | PLANS | [...] | Self | [birth year] | Home: | [address] | | | al/Fam | | 1965 | [phone]- | [place], [place] | | | vikas | | | [address] | [address] | + +--------+ +--------+ + + | [facility] | Third | Self | [birth year] | Home: | [address] | | | Libertarian | | 1964 | [phone] | [place], [place] | | | Liabil | | | [address] | [address] | | | ity | | | | | + +--------+ +--------+ + +
--- OUTSIDE RECORDS SUMMARY | ~2019-10-08 | XMS | Encounter Summary ---
Demographics + + + | Address | [address] | | | [place] [address] | + + + | Home Phone [...] Team Providers + +------+ + | Care Predictive Maintenance Specialist Name | Role | Phone | [...] 2016 | | GASTROENTEROLOGY | [address], [place] | | | | | [address] [place] | [address] [place] | | | | | [address] [place], [place] | [address] | | | | | [address] | | | | | | [phone] | | | +--------+ + + + [...]
--- OUTSIDE RECORDS SUMMARY | ~2019-10-08 | XMS | Encounter Summary ---
Demographics + + + | Address | [address] | | | [place] [address] | + + + | Home Phone [...] Team Providers + +------+ + | Care Cold Food Packer Name | Role | Phone | + [...] diarrhea | [address] [place], | | | | | IgG Gliadin | [place], [place] | [place] [address] | | | | | antibody | [address] [place] | [place], | | | | | positive | [place] | [place] [address] | | | | | Alcohol | [address] | Phone: | | | | | abuse | Phone: | [phone] | | | | | Procedures | [phone] | Fax: | | | | | [place] | Fax: | [phone] | | | | | COLONOSCOPY | [phone] | | | | | | FLX DX | | | | | | | W/COLLJ SPEC | | | | | | | WHEN PFRMD | | | | | | | UT | | | | | | | COLONOSCOPY | | | | | | | W/BIOPSY | | | | | | | SINGLE/MULTI | | | | | | | PLE UT | | | | | | | COLSC FLX | | | | | | | W/RMVL OF | | | | | | | TUMOR POLYP | | | | | | | LESION SNARE | | | | | | | TQ UT | | | | | | | [...] | | GASTROENTEROLOGY | [address] [place], [place] | (procedure ) | | | | [address] [place] | [address] [place], [place] | | | | | [address] [place], [place] | [address] | | | | | [address] | | | | | | [phone] | | | +--------+ + + + [...]
--- OUTSIDE RECORDS SUMMARY | ~2019-10-08 | XMS | Encounter Summary ---
Demographics + + + | Address | [address] | | | [place] [address] | + + + | Home Phone [...] Team Providers + +------+ + | Care Windows Infrastructure Engineer Name | Role | Phone | + +------+ + | Estrella Light PA-C | PCP | | + +------+ + Encounter Details +--------+ + + + + | Date | Type | Department | Care Team | Description | +--------+ + + + + | 09/22/ | Anesthesia | [facility] | Ilya Dodge | | | 2015 | Event | MED CTR MP INTRA OP | MD Ebonie [address] | | | | | [address] | [facility] | | | | | [place] | [place] [address] | | | | | [address] | [phone] | | | | | [phone] | | | +--------+ + + + [...]
--- OUTSIDE RECORDS SUMMARY | ~2019-10-08 | XMS | Encounter Summary ---
Demographics + + + | Address | [address] | | | [place] [address] | + + + | Home Phone | | + + + | Preferred Language | Unknown | + + + | Marital Status | Single | + + + | Methodist Affiliation | 1077 | + + + [...] Team Providers + +------+ + | Care Vacuum Cleaner Operator Name | Role | Phone | [...] antibody | [address], | | | | | positive | [place], [place] | [place] [address] | | | | | Chronic | [address] [place] | [place], | | | | | diarrhea | [place], [place] | [place] [address] | | | | | Procedures | [address] | Phone: | | | | | ID | Phone: | [phone] | | | | | COLONOSCOPY | [phone] | Fax: | | | | | FLX DX | Fax: | [phone] | | | | | W/COLLJ SPEC | [phone] | | | | | | WHEN PFRMD | | | | | | | ID | | | | | | | COLONOSCOPY | | | | | | | W/BIOPSY | | | | | | | SINGLE/MULTI | | | | | | | PLE ID | | | | | | | COLSC FLX | | | | | | | W/RMVL OF | | | | | | | TUMOR POLYP | | | | | | | LESION SNARE | | | | | | | TQ ID | | | | | | | ESOPHAGOGAST | | | | | | | RODUODENOSCO | | | | | | | PY TRANSORAL | | | | | | | DIAGNOSTIC | | | | | | | ID EDG | | | | | | [...] 2015 | | GASTROENTEROLOGY | [address], [place] | (egd/colon ) | | | | [address] [place] | [address] [place], [place] | | | | | [address] [place], [place] | [address] | | | | | [address] | | | | | | [phone] | | | +--------+ + + + [...]
--- OUTSIDE RECORDS SUMMARY | ~2019-10-08 | XMS | Encounter Summary ---
Demographics + + + | Address | [address] | | | [place] [address] | + + + | Home Phone | | + + + | Preferred Language | Unknown | + + + | Marital Status | Single | + + + | Holiness Affiliation | 1077 | + + + | Race | Unknown | + + + | Ethnic Group | Unknown | + + + Author + + + | Author | [facility] | | | and [place] | + + + | Organization | [facility] | [...] Providers + +------+ + | Care Medical Instrument Technician Name | Role | Phone | + +------+ + | Estrella Light PA-C | PCP | | + +------+ + Encounter Details +--------+ + + + + | Date | Type | Department | Care Team | Description | +--------+ + + + + | 01/13/ | Hospital | [facility] | Cameron Lopez | | | 2018 - | Encounter | [facility] | MD [address]olin Hill | | | | | CLINICAL DECISION | [place], [place] | | | 01/14/ | | UNIT [facility] | [address] | | | 2017 | | [place], [place] | | | | | | [address] | | | | | | [phone] | | | +--------+ + + + [...] 01/14/181931 Date of Service: 01/14/18899 Status: Signed Winery Cellar Hand: Abhinav Winters DO (Physician) The patient is 52 y.o. 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 In the emergency department at [facility], EKG showed T inversions in lead III [...] Date of Service: 04/15/18 0900 Status: Signed Winery Cellar Hand: Elizabeth Galvez, RN (Registered Nurse) Approached by [...] 01/13/181399 Date of Service: 01/13/181399 Status: Signed Winery Cellar Hand: Rosalba Luo RPH (Pharmacist) Clinical Pharmacy Note: [...] | | | Basophils | performed at [facility], [address] | [address]/uL | LAB | | | | [place], | | | | | | [place] [address] | | | | + + + [...] | | | | [place] [address] | | | | + + + [...] EXTERNAL | | | | performed at [facility], [address] | | LAB | | | | [place], | | | | | | [place] [address] | | | | + + + [...] EXTERNAL | | | | performed at [facility], [address] | | LAB | | | | [place], | | | | | | [place] [address] | | | | + + + [...] | EXTERNAL | | | A1c | [place] Diabetes | | LAB | | | [...] | | | | | performed at [facility], [address] | | | | | | [facility], | | | | | | [place] [address] | | | | + + + [...] | | | Cholesterol | performed at [facility], [address] | | LAB | | | , | [place], | | | | | Calculated, | [place] [address] | | | | | External | [...] | | | | | | at [facility], [address] | | | | | | [place], | | | | | | [place] [address] | | | | + + + [...] | | | Fingerstick | performed at [facility];[address] | | LAB | | | | [address];[place], [place] | | | | | | [address] | | | | + + + [...] + + | [facility] | EXTERNAL LAB | + [...] EXTERNAL | | | | performed at [facility];[address] | | LAB | | | | [address];[place], [place] | | | | | | [address] | | | | + + + [...] | | | Fingerstick | performed at [facility];[address] | | LAB | | | | [address];[place], [place] | | | | | | [address] | | | | + + + [...] | | | | | | ACUTE ME Testing | | | | | | performed at [facility];[address] | | | | | | [address] [facility];[place], [place] | | | | | | [address] | | | | + + + [...] EXTERNAL | | | | performed at [facility];[address] | | LAB | | | | [address];[place] | | | | | | [address] | | | | + + + [...] | | | Fingerstick | performed at [facility];[address] | | LAB | | | | [address];[place] | | | | | | [address] | | | | + + + [...] | | | Fingerstick | performed at [facility];[address] | | LAB | | | | [address];[place] | | | | | | [address] | | | | + + + [...] | | | | | | ACUTE ME Testing | | | | | | performed at [facility] | | | | | | [address] [facility];[place], [place] | | | | | | [address] | | | | + + + [...] EXTERNAL | | | | performed at [facility];[address] | | LAB | | | | [address];[place], [place] | | | | | | [address] | | | | + + + [...] TV A Star: 0.46 m/s TV Dec Beltrami: 2.14 m/s2 TV Dec Time: | | | 223.61 ms TV E Star: 0.47 m/s TV E/A Ratio: 1.03 | | | Development Analyst: DIDI Authenticated by: Dereck Galicia Report | | | Date/Time: 01-13-2018 17:21:41 | | + + + + + | Procedure Note | + + | Glenn Valle Conversion - 05/15/2019 8:55 AM PDT Patient Name: Andrzej CM | | : 1965 Performing Physician: Dereck [...] (A-L): | | 16.36 ml/m2LAAs A2C: 13.19 [id number] A-L A2C: 34.91 mlLALs A2C: 4.23 cmLAAs A4C: | | 11.37 [id number] A-L A4C: 29.21 mlLALs A4C: 3.75 cmRAAd: 13.57 [id number] A-L: | | 35.22 mlRAEDV MOD: 30.46 mlRALd: 4.44 cmTAPSE: 1.67 cmHR: 82.18 BPMAV maxPG: | | 3.19 mmHgAV meanP.99 mmHgAV Vmax: 0.89 m/Simran Vmean: 0.69 m/Simran VTI: 18.16 | | cmAVA Vmax: 3.34 cm2AVA (VTI): 3.51 rt9EYCS Vmax: 0.00 cm2/m2AVAI (VTI): 0.00 | | cm2/m2LVCI Dopp: 2.41 l/[id number] Dopp: 5.00 l/minHR: 78.46 BPMLVOT maxP.34 | [...] 3 mmHgTV A Star: 0.46 m/sTV Dec Beltrami: 2.14 m/s2TV Dec Time: 223.61 | | msTV E Star: 0.47 m/sTV E/A Ratio: 1.03 Development Analyst: Nishaticated by: Dereck | | KorimerlaReport Date/Time: [...] A Star: 0.46 m/s | |TV Dec Beltrami: 2.14 m/s2 | |TV Dec Time: 223.61 ms | |TV E Star: 0.47 m/s | |TV E/A Ratio: 1.03 | | | |Development Analyst: GD | |Authenticated by: Dereck Galicia | [...] | | | Fingerstick | performed at [facility];[address] | | LAB | | | | [address];[place], [place] | | | | | | [address] | | | | + + + [...] | | | | | | ACUTE ME Testing | | | | | | performed at [facility];[address] | | | | | | [facility];[place], [place] | | | | | | [address] | | | | + + + [...] + + | Historically [facility] Epic environment | EXTERNAL LAB | + [...] | | | PCRAbnormal Testing performed at [facility];[address] [place] [address];[place] [address] | | + + + + +---------+ [...]
--- OUTSIDE RECORDS SUMMARY | ~2019-10-08 | XMS | Encounter Summary ---
Demographics + + + | Address | [address] | | | [place] [address] | + + + | Home Phone [...] Providers + +------+ + | Care Hand Assembler Name | Role | Phone | + [...] diarrhea | [address] [place], | | | | | IgG Gliadin | [place], [place] | [place] [address] | | | | | antibody | [address] [place] | [place], | | | | | positive | [place] | [place] [address] | | | | | Alcohol | [address] | Phone: | | | | | abuse | Phone: | [phone] | | | | | Procedures | [phone] | Fax: | | | | | [place] | Fax: | [phone] | | | | | COLONOSCOPY | [phone] | | | | | | FLX DX | | | | | | | W/COLLJ SPEC | | | | | | | WHEN PFRMD | | | | | | | MA | | | | | | | COLONOSCOPY | | | | | | | W/BIOPSY | | | | | | | SINGLE/MULTI | | | | | | | PLE MA | | | | | | | COLSC FLX | | | | | | | W/RMVL OF | | | | | | | TUMOR POLYP | | | | | | | LESION SNARE | | | | | | | TQ MA | | | | | | | [...] 2014 | | GASTROENTEROLOGY | [address] [place], [place] | (procedure ) | | | | [address] [place] | [address] [place], [place] | | | | | [address] [place], [place] | [address] | | | | | [address] | | | | | | [phone] | | | +--------+ + + + [...]
--- OUTSIDE RECORDS SUMMARY | ~2019-10-08 | XMS | Encounter Summary ---
Demographics + + + | Address | [address] | | | [place] [address] | + + + | Home Phone | | + + + | Preferred Language | Unknown | + + + | Marital Status | Single | + + + | Jewish Affiliation | 1077 | + + + | Race | Unknown | + + + | Ethnic Group | Unknown | + + + Author + + + | Author | [facility] | | | and [place] | + + + | Organization | [facility] | | | [...] Team Providers + +------+ + | Care Automobile Spring Repairer Name | Role | Phone | + +------+ + | Estrella Light PA-C | PCP | | + +------+ + Encounter Details +--------+ + + + + | Date | Type | Department | Care Team | Description | +--------+ + + + + | 05/12/ | Orders Only | [facility] | Provider, | | | 2019 | | SYSTEM GENERIC OP | [address] | | | | | [address] | [place] | | | | | [address] [place], [place] | [place] [address] | | | | | [address] | | | | | | [phone] | | | +--------+ + + + [...]
--- OUTSIDE RECORDS SUMMARY | ~2019-10-08 | XMS | Encounter Summary ---
Demographics + + + | Address | [address] | | | [place] [address] | + + + | Home Phone [...] Providers + +------+ + | Care Rn Field Case Manager Name | Role | Phone | [...] + + | 04/12/ | Telephone | [facility] | Avi Forde MD | Hosp No Show | | 2015 | | GASTROENTEROLOGY | [address] [place], [place] | (egds,colon) | | | | [address] [place] | [address] [place] | | | | | [address] [place], [place] | [address] | | | | | [address] | | | | | | [phone] | | | +--------+ + + + [...]
--- OUTSIDE RECORDS SUMMARY | ~2019-10-08 | XMS | Clinical Summary ---
Demographics + + + | Address | [address] [place] [address] RD | | | [place] [address] | + + + | Home Phone [...] Team Providers + +------+ + | Care Rail Manager Name | Role | Phone | [...] + + + | Overview: Problem list international marketing coordinator utility | + + + +---+ | [...] | [employer] | [employer] | [id number] | | [phone] | | Medica | | MEDICAID HMO | HEALTH | | 018-Pr | 1 | | id | | | MDCD | | esent | | | | | | HMO OR | | | | | | + +--------+ +--------+ +---------+--------+ | [facility] | IHS | [id number] | | | | Indemn | | [...] Person | Self | [birth year] | [address] | | | al/Fam | | 1965 | [phone] | [place] | | | vikas | | | 8 (Home) | [address] | + +--------+ +--------+ + + Advance Directives + + + + + | Type | Date Recorded | Patient | Explanation | | | | Consulting Marine Engineer | | + + + + + | Power of | | | | | Sandstone Splitter | | | | + + + + + | Advance | | | | | Directive | | | | + + + + +
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
--- OUTSIDE RECORDS SUMMARY | ~2019-10-08 | XMS | Encounter Summary ---
Demographics + + + | Address | [address] | | | [place] [address] | + + + | Home Phone [...] Team Providers + +------+ + | Care Cloth Dye Range Operator Name | Role | Phone | [...] | | type | [address] | [place], | | | | | | [place], | [place] [address] | | | | | | [place] [address] | Phone: | | | | | | Phone: | [phone] | | | | | | [phone] | Fax: | | | | | | Fax: | [phone] | | | | | | [phone] | | +--------+ + + + + + Reason for Visit + + + | Reason | Comments | + + + | Hematuria | | + + + Encounter Details +--------+ + + + + | Date | Type | Department | Care Team | Description | +--------+ + + + + | 10/16/ | Emergency | [facility] | Keenan Estrada MD | Hematuria, | | 2019 | | MED CTR EMERGENCY | [address] | unspecified type | | | | CENTER [address] | [place] | (Primary Dx) | | | | [place] | [id number] | | | | | [address] | | | | | | [phone] | | | +--------+ + + + [...] + + +--------+ + + | Urology [facility] - | Outpatient | Routin | [...] + | [facility] | [address] | [place] | [phone] | | [facility] | | [address] | | | - LABORATORY | | [...] - 1.030 | [facility] | | | [place] | | | [facility] | | [...] [address] | [place] | [phone] | | [facility] | | [address] | | | - LABORATORY | | [...]
--- OUTSIDE RECORDS SUMMARY | ~2019-10-08 | XMS | Encounter Summary ---
Demographics + + + | Address | [address] | | | [place] [address] | + + + | Home Phone [...] | + + +---------+ + | Sarah Hnason | ECON | Unknown | | + + +---------+ + | Yasmany Smith | ECON | Unknown | | + + +---------+ + | Katherine Duran | ECON | Unknown | | + + +---------+ + | Sarah Hanson | ECON | Unknown | | + + +---------+ + Care Team Providers + +------+ + | Care Software Consultant Name | Role | Phone | [...] + + | 09/22/ | Telephone | [facility] | Avi Forde MD | Other | | 2014 | | GASTROENTEROLOGY | [address] [place] | | | | | [address] [facility] | [address] [place] | | | | | [address] [place], [place] | [address] | | | | | [address] | | | | | | [phone] | | | +--------+ + + + [...]
--- OUTSIDE RECORDS SUMMARY | ~2019-10-08 | XMS | Encounter Summary ---
Demographics + + + | Address | [address] | | | [place] [address] | + + + | Home Phone [...] + | Author | [facility] | | | and [place] | + + + | Organization | [facility] | | | and [...] Team Providers + +------+ + | Care Property Clerk Name | Role | Phone | [...] 2016 | | GASTROENTEROLOGY | [address], [place] | | | | | [address] [place] | [address] [place] | | | | | [address] [place], [place] | [address] | | | | | [address] | | | | | | [phone] | | | +--------+ + + + [...]
--- OUTSIDE RECORDS SUMMARY | ~2019-10-08 | XMS | Encounter Summary ---
Demographics + + + | Address | [address] | | | [place] [address] | + + + | Home Phone [...] Team Providers + +------+ + | Care Farm Worker Name | Role | Phone | + +------+ + | Estrella Light PA-C | PCP | | + +------+ + Encounter Details +--------+ + + + + | Date | Type | Department | Care Team | Description | +--------+ + + + + | 05/12/ | Orders Only | [facility] | Provider, | | | 2019 | | SYSTEM GENERIC OP | [address] | | | | | [address] | [place] | | | | | [address] [place], [place] | [place] [address] | | | | | [address] | | | | | | [phone] | | | +--------+ + + + [...]
--- OUTSIDE RECORDS SUMMARY | ~2019-10-08 | XMS | Encounter Summary ---
Demographics + + + | Address | [address] | | | [place] [address] | + + + | Home Phone [...] Team Providers + +------+ + | Care Childcare Provider Name | Role | Phone | + +------+ + | Estrella Light PA-C | PCP | | + +------+ + Encounter Details +--------+ + + + + | Date | Type | Department | Care Team | Description | +--------+ + + + + | 12/14/ | Hospital | [facility] | [place], | Osteomyelitis of | | 2017 - | Encounter | [facility] | MD [address] | foot, left, acute | | | | CARE FLOOR [address] | [address] | ([facility]); Uncontrolled | | 12/20/ | | [address] | [place] [address] | type 2 diabetes | | 2017 | | [place], [place] | [phone] | mellitus with | | | | [address] | | hyperglycemia, | | | | [phone] | | unspecified long | | | | | | term insulin use | | | | | | status ([facility]); Renal | | | | [...] 1933 Date of Service: 12/20/161538 Status: Addendum Benefits Representative: Bunny Chaney MD (Physician) Related Notes: Original Note by Bunny Chaney MD (Physician) filed at 12/26/[address] [facility] Service: Hospitalist Physician Discharge Summary Patient ID: Kuldip Smith [id number] y.o. 1965 Admit date: 12/14/2016 Discharge [...] been approved, which should be given from [facility] ec until further approval from insurance. [...] up: Estrella Light PA-C [address] [place] [address] Rebeca Reza MD [address] [facility] [address] Schedule an appointment as soon as possible for a visit in 10 days Dictation and occupational therapy manager or software, [employer], used which may contain error for similar [...] - AMPUTATION; Surgeon: Walter Fernandez DPM; Location: [facility] OR; Service: Podiatry; Laterality: Left; [...] Management by Jenny Vaughan RN at 12/20/16 7659 Author: Jenny Vaughan RN Service: (none) Author Type: Registered Nurse Filed: 12/20/16 8471 Date of Service: 12/20/161538 Status: Signed Benefits Representative: Jenny Vaughan RN (Registered Nurse) 1610 - Received call from [facility] stating they are now unable to accept pa tient due to a "freeze on admits". They are aware patient has been discharged and is en rou te to home. They are still unable to accept. Call placed to [facility] OPP rega rding need for services. They state pt will need to arrange wound care/dressing changes thr ough his PCP per insurance requirements. Voicemail left for Coby at [facility] to return call. Will need to call back in morning to schedule appointment as clinic is currently closed. onver ruben Transaction, Provider Unknown - 12/20/2016 3:39 PM PDT Case Management by Mirlande Prescott RN at 12/20/16 9988 Author: Mirlande Prescott RN Service: (none) Author Type: Registered Nurse Filed: 12/21/16 0808 Date of Service: 12/20/16 1539 Status: Signed Benefits Representative: Mirlande Prescott RN (Registered Nurse) 0800: Tc to pt's PCP, Coby Light, with [facility], to updat e about [facility] not being able to admit pt. Coby states she and Charlotte will work on getting pt the appropriate wound vac care he needs, they are going to try and get pt into O P wound therapy with [facility] or maybe to OP in [place]. Coby states she will als o call [facility] as to when they can admit pt under their services. Maribel onver ruben Transaction, Provider Unknown - 12/20/2016 1:03 PM PDT Progress Notes by Rachael Molina RN at 12/20/16 1303 Author: Rachael Molina RN Service: Wound/Ostomy Care Author Type: Registered Nurse Filed: 12/20/16 1311 Date of Service: 12/20/16 1303 Status: Signed Benefits Representative: Rachael Molina RN (Registered Nurse) Wound care [...] of tracking number and faxed to Alicia [facility] rep. Instructions on how to use the [...] for further protection. Hospital vac dc'd in [facility] express: #[id number] Rachael Molina RN, ON 12/20/2016 1:10 PM onver ruben Transaction, Provider Unknown - 12/20/2016 11:34 AM PDT Case Management by Mirlande Prescott RN at 12/20/16 1134 Author: Mirlande Prescott RN Service: (none) Author Type: Registered Nurse Filed: 12/20/16 1459 Date of Service: 12/20/16 1134 Status: Addendum Benefits Representative: Mirlande Prescott RN (Registered Nurse) Related Notes: Original Note by Mirlande Prescott RN (Registered Nurse) filed at 12/20/16 114 9 Per rounding with pt, he will be d/c home today. Pt states his mother will be providing tra nsportation home. Wound vac has been approved by [employer]. [facility] has been set up, and they have been notified about d/c, pt may not be able t o be admitted until . Pt's wound dressing is due Monday. Tc to Angie with wound care, it's not ideal that pt's dressing doesn't get changed until , but it is ok to wait. Dr Chaney was notified and agrees with plan. Tc to Coby [phone] and Charlotte [phone] with [facility]/mannie pickens nd left mssgs of pt's d/c Today. Faxed AVS to [facility] Maribel Iqra Mcgregor PT - 12/20/2016 10:07 AM PDTFormatting of this note might be different from th e original. Therapy Progress Note by Karina Zabala PT at 12/20/16 1007 Author: Karina Zabala PT Service: (none) Author Type: Physical Therapist Filed: 12/20/16 1037 Date of Service: 12/20/16 1007 Status: Signed Benefits Representative: Karina Zabala PT (Physical Therapist) 12/20/16 1007 [...] (none) Author Type: Physical Therapist Filed: 12/19/16 0203 Date of Service: 12/19/166 Status: Signed Benefits Representative: Natalia Marte PT (Physical Therapist) 12/19/16 1646 PT Last Visit PT Received On 12/19/16 Reason for Treatment Other (comment) (L foot osteomyelitis) Requires PT Follow Up Awaiting tx order Follow up PT Only? Yes (Assistive device assessment) Focus for Next Treatment Equipment Trial;Stair Training (bilateral axillary crutches and stair training) PT Eval/Reassessment Date 12/19/16 Assistance Required 1 person Skein Yarn Drier Needed No Home Environment Type of Home Home one story Home Exterior Layout 1-3 steps (2 JEISON) Home Interior Layout Lives on main level with bedroom/bathroom Bathroom Shower/Tub Tub/shower unit Bathroom Toilet Raised Bathroom Equipment Grab bars outside of shower/bath;Raised toilet seat Bathroom Accessibility Not accessible Home Equipment Cane single point;Crutches-axillary Prior Function Level of Jay Independent with ADLs;Independent with IADLs;Modified independent wi [...] Eval/Reassessment Date 12/19/16 Assistance Required 1 person Skein Yarn Drier Needed No Precautions LE Precaution(s) LLE Precautions/WB [...] Notes by Rebeca Reza MD at 12/19/16 7921 Author: Rebeca Reza MD Service: Infectious Disease Author Type: Physician Filed: 12/20/16 0639 Date of Service: 12/19/16 7149 Status: Signed Benefits Representative: Rebeca Reza MD (Physician) [facility] Service: Infectious Disease Progress Note Hospital [...] Dec 15 2016 9:30AM Referring Provider Line: [phone] ID: [id number] MRI foot left without contrast [[id number]] Impression 1. Recent amputation of the LEFT 4th toe. 2. No radiographic evidence of residual osteomyelitis in the remaining ossicles of the LEF T forefoot. 3. Moderately extensive vascular calcifications. X-ray foot left [[id number]] PROBLEM LIST Principal Problem: Osteomyelitis (HCC) Active [...] Date of Service: 12/19/16 1103 Status: Signed Benefits Representative: Dell Archer DO (Physician) PROGRESS NOTE 12/19/2016 [...] 1103 Date of Service: 12/19/16914 Status: Addendum Benefits Representative: Jenny Vaughan RN (Registered Nurse) Related Notes: Original Note by Jenny Vaughan RN (Registered Nurse) filed at 12/19/16 1 [phone] - [facility] accept patient. Face to face order faxed ([phone]) Charlotte [facility] RN [phone] Alicia with [facility] notified of wound vac placement. Auth form signed by hospitalist and faxed to Alicia. Lilly with [facility] Care notified of patient discharging on oral antibiotics. onver ruben Transaction, Provider Unknown - 12/18/2016 6:45 PM PDT Nurse Progress Note by Gerber Hay RN at 12/18/161844 Author: Gerber Hay RN Service: (none) Author Type: Registered Nurse Filed: 12/18/161847 Date of Service: 12/18/161844 Status: Signed Benefits Representative: Gerber Hay RN (Registered Nurse) Pt resting [...] 12/18/16933 Date of Service: 12/18/16928 Status: Addendum Benefits Representative: Dell Archer DO (Physician) Related Notes: Original [...] 12/18/16899 Date of Service: 12/18/16854 Status: Signed Benefits Representative: Walter Fernandez DPM (Doctor of Podiatric Medicine) [facility] Service: Podiatry Progress Note Hospital Day: [...] home health care. Dr. David DPM in [place] take s care of this patient and [...] 12/18/16845 Date of Service: 12/18/16845 Status: Signed Benefits Representative: Destini Vargas RPH (Pharmacist) Day 5 Vanco [...] 1108 Date of Service: 12/18/16820 Status: Signed Benefits Representative: Rebeca Reza MD (Physician) [facility] Service: Infectious Disease Progress Note Hospital [...] Dec 15 2016 9:30AM Referring Provider Line: [phone] ID: [id number] MRI foot left without contrast [[id number]] Impression 1. Recent amputation of the LEFT 4th toe. 2. No radiographic evidence of residual osteomyelitis in the remaining ossicles of the LEF T forefoot. 3. Moderately extensive vascular calcifications. X-ray foot left [[id number]] PROBLEM LIST Principal Problem: Osteomyelitis (HCC) Active [...] Note by Jihan Jacinto RPH at 12/17/16 9878 Author: Jihan Jacinto RPH Service: Pharmacy Author Type: Pharmacist Filed: 12/17/162246 Date of Service: 12/17/162246 Status: Signed Benefits Representative: Jihan Jacinto RPH (Pharmacist) Clinical Pharmacy Note: [...] 12/17/161750 Date of Service: 12/17/161742 Status: Signed Benefits Representative: Gerber Hay RN (Registered Nurse) Wound vac [...] Notes by Rebeca Reza MD at 12/17/16 2850 Author: Rebeca Reza MD Service: Infectious Disease Author Type: Physician Filed: 12/17/16 1707 Date of Service: 12/17/16 1510 Status: Addendum Benefits Representative: Rebeca Reza MD (Physician) Related Notes: Original Note by Rebeca Reza MD (Physician) filed at 12/17/[address] [facility] Service: Infectious Disease Progress Note Hospital [...] Dec 15 2016 9:30AM Referring Provider Line: [phone] ID: [id number] MRI foot left without contrast [[id number]] Impression 1. Recent amputation of the LEFT 4th toe. 2. No radiographic evidence of residual osteomyelitis in the remaining ossicles of the LEF T forefoot. 3. Moderately extensive vascular calcifications. X-ray foot left [[id number]] PROBLEM LIST Principal Problem: Osteomyelitis (HCC) Active [...] Doctor of Podiatric Medi cine Filed: 12/17/16 3997 Date of Service: 12/17/16 1406 Status: Signed Benefits Representative: Walter Fernandez DPM (Doctor of Podiatric Medicine) [facility] Service: Podiatry Progress Note Hospital Day: [...] Note by Gerber Hay RN at 12/17/16 3892 Author: Gerber Hay RN Service: (none) Author Type: Registered Nurse Filed: 12/17/16 6414 Date of Service: 12/17/16 1144 Status: Signed Benefits Representative: Gerber Hay RN (Registered Nurse) Pt had [...] Filed: 12/17/16 1103 Date of Service: 12/17/16 1050 Status: Signed Benefits Representative: Dell Archer DO (Physician) PROGRESS NOTE 12/17/2016 [...] 12/17/16834 Date of Service: 12/17/16834 Status: Signed Benefits Representative: Destini Vargas RPH (Pharmacist) Day 4 Vanco 1500mg IV q 12h. Todays Scr= 0.9, WBC= 14.59 with estim CrCl= 112.1 ml/min. Vanco Tr at 2000 tonight. Goal Tr 15-20 mcg/ml for osteomyelitis. Last nights level was 18.1 mcg/ml- potentially the level tonight may be elevated. Pharmacist; DESTINI VARGAS 12/17/2016 8:34 AM onver rubne Transaction, Provider Unknown - 12/17/2016 3:08 AM PDT Pharmacy Note by Jihan Jacinto RPH at 12/17/16 0308 Author: Jihan Jacinto RPH Service: Pharmacy Author Type: Pharmacist Filed: 12/17/168 Date of Service: 12/17/16307 Status: Signed Benefits Representative: Jihan Jacinto RPH (Pharmacist) Clinical Pharmacy Note: [...] 12/16/161719 Date of Service: 12/16/161709 Status: Signed Benefits Representative: Walter Fernandez DPM (Doctor of Podiatric Medicine) [facility] Service: Podiatry Progress Note Hospital Day: [...] Notes by Rebeca Reza MD at 12/16/16 6239 Author: Rebeca Reza MD Service: Infectious Disease Author Type: Physician Filed: 12/16/16 1606 Date of Service: 12/16/169 Status: Signed Benefits Representative: Rebeca Reza MD (Physician) [facility] Service: Infectious Disease Progress Note Hospital [...] Dec 15 2016 9:30AM Referring Provider Line: [phone] ID: [id number] MRI foot left without contrast [[id number]] Impression 1. Recent amputation of the LEFT 4th toe. 2. No radiographic evidence of residual osteomyelitis in the remaining ossicles of the LEF T forefoot. 3. Moderately extensive vascular calcifications. X-ray foot left [[id number]] PROBLEM LIST Principal Problem: Osteomyelitis (HCC) Active [...] Management by Jenny Vaughan RN at 12/16/16 7756 Author: Jenny Vaughan RN Service: (none) Author Type: Registered Nurse Filed: 12/16/16 8439 Date of Service: 12/16/16 5901 Status: Signed Benefits Representative: Jenny Comfort, RN (Registered Nurse) 12/16/16 1980 Discharge Planning Evaluation Admitting Diagnosis osteomyelitis Readmission No Living Arrangements Parent Support Systems Parent;Family members Type of Residence Private residence House type House-1 story Steps to enter 2 Independent with ADL's Yes Independent with Mobility Yes Mental Status Oriented Prior functional status not employed, independent Power of Adoption Social Worker No Anticipated Discharge Plan Post Acute Care [...] PCP is: Estrella Light PA-C Patient's insurance: Medicare/[facility] Coverage concerns: None Medication coverage/concerns: None Community resources utilized / needed: TBD pending pt progress and treatment plan. Sascha garcia need home health services along with IV abx. Discussed with patient and he states und erstanding. Referral sent to [facility] for nursing services as patient lives in [place]. Options for home IV abx services provided to pt/family and they do not have a preference. Referral to [facility] will follow. Pt/family requested I notify Coby at the [facility] of pt status as she [...] [facility]. Coby [facility] [phone] Assistance in transportation: Pt's family is able [...] Date of Service: 12/16/16 1012 Status: Signed Benefits Representative: Dell Archer DO (Physician) PROGRESS NOTE 12/16/2016 [...] Date of Service: 12/15/16 1248 Status: Signed Benefits Representative: Jenny Vaughan RN (Registered Nurse) Attempted to [...] 12/15/16405 Date of Service: 12/15/16405 Status: Signed Benefits Representative: Jihan Jacinto RPH (Pharmacist) Clinical Pharmacy Note: [...] 12/15/16404 Date of Service: 12/15/16404 Status: Signed Benefits Representative: Jihan Jacinto RPH (Pharmacist) Clinical Pharmacy Note: [...] | | | Fingerstick | performed at [facility];[address] | | LAB | | | | [address];[place] | | | | | | [address] | | | | + + + [...] EXTERNAL | | | | performed at [facility];[address] | | LAB | | | | [address];[place], [place] | | | | | | [address] | | | | + + + [...] EXTERNAL | | | | performed at [facility];[address] | K/uL | LAB | | | | [address];[place] | | | | | | [address] | | | | + + + + + + | RED CELL | 4.00 (L)Comment: Testing | 4.20 - 5.70 | EXTERNAL | | | COUNT | performed at [facility];[address] | M/uL | LAB | | | | [address];[place] | | | | | | [address] | | | | + + + + + + | Hgb | 11.6 (L)Comment: Testing | 13.2 - 17.0 | EXTERNAL | | | | performed at [facility];[address] | g/dL | LAB | | | | [address];[place] | | | | | | [address] | | | | + + + + + + | Hematocrit, | 33.9 (L)Comment: Testing | 39.0 - 50.0 % | EXTERNAL | | | POC | performed at [facility];[address] | | LAB | | | | [address];[place] | | | | | | [address] | | | | + + + + + + | MCV | 84.7Comment: Testing | 80.0 - 100.0 fl | EXTERNAL | | | | performed at [facility];[address] | | LAB | | | | [address];[place] | | | | | | [address] | | | | + + + + + + | MCH | 28.9Comment: Testing | 27.0 - 34.0 pg | EXTERNAL | | | | performed at [facility];[address] | | LAB | | | | [address];[place] | | | | | | [address] | | | | + + + + + + | MCHC | 34.1Comment: Testing | 32.0 - 35.5 | EXTERNAL | | | | performed at [facility];[address] | g/dL | LAB | | | | [address];[place] | | | | | | [address] | | | | + + + + + + | RDW-CV | 42.0Comment: Testing | 37 - 53 fl | EXTERNAL | | | | performed at [facility];[address] | | LAB | | | | [address];[place] | | | | | | [address] | | | | + + + + + + | Platelet | 392Comment: Testing | 150 - 400 K/uL | EXTERNAL | | | Count | performed at [facility];[address] | | LAB | | | Plasma | [address];[place] | | | | | | [address] | | | | + + + + + + | MPV | 7.0Comment: Testing | fl | EXTERNAL | | | | performed at [facility];[address] | | LAB | | | | [address];[place] | | | | | | [address] | | | | + + + + + + | Differentia | MANUALComment: Testing | | EXTERNAL | | | l Type | performed at [facility];[address] | | LAB | | | | [address];[place] | | | | | | [address] | | | | + + + + + + | Segmented | 69Comment: Testing | % | EXTERNAL | | | Neutrophils | performed at [facility];[address] | | LAB | | | Manual | [address];[place] | | | | | | [address] | | | | + + + + + + | Lymphocytes | 21Comment: Testing | % | EXTERNAL | | | Manual | performed at [facility];[address] | | LAB | | | | [address];[place] | | | | | | [address] | | | | + + + + + + | Monocytes | 4Comment: Testing | % | EXTERNAL | | | Manual | performed at [facility];[address] | | LAB | | | | [address];[place] | | | | | | [address] | | | | + + + + + + | Eosinophils | 6Comment: Testing | % | EXTERNAL | | | Manual | performed at [facility];[address] | | LAB | | | | [address];[place] | | | | | | [address] | | | | + + + + + + | Absolute | 5.08Comment: Testing | 1.90 - 7.40 | EXTERNAL | | | Neutrophils | performed at [facility];[address] | K/uL | LAB | | | | [address];[place] | | | | | | [address] | | | | + + + + + + | Absolute | 1.55Comment: Testing | 1.00 - 3.90 | EXTERNAL | | | Lymphocytes | performed at [facility];[address] | K/uL | LAB | | | | [address];[place] | | | | | | [address] | | | | + + + + + + | Absolute | 0.29Comment: Testing | 0.00 - 0.80 | EXTERNAL | | | Monocytes | performed at [facility];[address] | K/uL | LAB | | | | [address];[place] | | | | | | [address] | | | | + + + + + + | Absolute | 0.44Comment: Testing | 0.00 - 0.50 | EXTERNAL | | | Eosinophils | performed at [facility];[address] | K/uL | LAB | | | | [address];[place] | | | | | | [address] | | | | + + + + + + | RBC | NORMALComment: Testing | | EXTERNAL | | | Morphology | performed at [facility];[address] | | LAB | | | | [address];[place] | | | | | | [address] | | | | + + + [...] EXTERNAL | | | | performed at [facility];[address] | | LAB | | | | [address];[place] | | | | | | [address] | | | | + + + [...] | | | Fingerstick | performed at [facility];[address] | | LAB | | | | [address];[place], [place] | | | | | | [address] | | | | + + + [...] | | | Fingerstick | performed at [facility];[address] | | LAB | | | | [address];[place] | | | | | | [address] | | | | + + + [...] | | | Fingerstick | performed at [facility];[address] | | LAB | | | | [address];[place] | | | | | | [address] | | | | + + + [...] | | | Fingerstick | performed at [facility];[address] | | LAB | | | | [address];[place] | | | | | | [address] | | | | + + + [...] | | | Fingerstick | performed at [facility];[address] | | LAB | | | | [address];[place], [place] | | | | | | [address] | | | | + + + [...] | | | Fingerstick | performed at [facility];[address] | | LAB | | | | [address];[place] | | | | | | [address] | | | | + + + [...] | | | Fingerstick | performed at [facility];[address] | | LAB | | | | [address];[place], [place] | | | | | | [address] | | | | + + + [...] | | | Fingerstick | performed at [facility];[address] | | LAB | | | | [address];[place] | | | | | | [address] | | | | + + + [...] | EXTERNAL LAB | | performed at [facility];[address] [place] [address];[place] [address] TOXIN A | | | NEGATIVE Testing performed at | | | [facility];[address] [facility];[place] [address] C DIFF INTERPRETATION | | | Negative for toxigenic C.difficile. Testing performed at | | | [facility];[address] [place] [address];[place] [address] | | + + + + +---------+ [...] | | | Fingerstick | performed at [facility];[address] | | LAB | | | | [address];[place] | | | | | | [address] | | | | + + + [...] EXTERNAL | | | | performed at [facility], [address] | K/uL | LAB | | | | [address], | | | | | | [place] [address] | | | | + + + + + + | RED CELL | 3.92 (L)Comment: Testing | 4.20 - 5.70 | EXTERNAL | | | COUNT | performed at [facility], [address] | M/uL | LAB | | | | [address], | | | | | | [place] [address] | | | | + + + + + + | Hgb | 11.2 (L)Comment: Testing | 13.2 - 17.0 | EXTERNAL | | | | performed at [facility], [address] | g/dL | LAB | | | | [address], | | | | | | [place] [address] | | | | + + + + + + | Hematocrit, | 33.6 (L)Comment: Testing | 39.0 - 50.0 % | EXTERNAL | | | POC | performed at [facility], [address] | | LAB | | | | [address], | | | | | | [place] [address] | | | | + + + + + + | MCV | 85.9Comment: Testing | 80.0 - 100.0 fl | EXTERNAL | | | | performed at [facility], [address] | | LAB | | | | [address], | | | | | | [place] [address] | | | | + + + + + + | MCH | 28.7Comment: Testing | 27.0 - 34.0 pg | EXTERNAL | | | | performed at [facility], [address] | | LAB | | | | [address], | | | | | | [place] [address] | | | | + + + + + + | MCHC | 33.4Comment: Testing | 32.0 - 35.5 | EXTERNAL | | | | performed at [facility], [address] | g/dL | LAB | | | | [address], | | | | | | [place] [address] | | | | + + + + + + | RDW-CV | 41.1Comment: Testing | 37 - 53 fl | EXTERNAL | | | | performed at [facility], [address] | | LAB | | | | [address], | | | | | | [place] [address] | | | | + + + + + + | Platelet | 341Comment: Testing | 150 - 400 K/uL | EXTERNAL | | | Count | performed at [facility], [address] | | LAB | | | Plasma | [address], | | | | | | [place] [address] | | | | + + + + + + | MPV | 7.6Comment: Testing | fl | EXTERNAL | | | | performed at [facility], [address] | | LAB | | | | [address], | | | | | | [place] [address] | | | | + + + + + + | Differentia | AUTOMATEDComment: | | EXTERNAL | | | l Type | Testing performed at | | LAB | | | | [facility], [address] | | | | | | [place] | | | | | | [address] | | | | + + + + + + | % Segmented | 76.22Comment: Testing | % | EXTERNAL | | | | performed at [facility], [address] | | LAB | | | Neutrophils | [address], | | | | | | [place] [address] | | | | + + + + + + | % | 12.04Comment: Testing | % | EXTERNAL | | | Lymphocytes | performed at [facility], [address] | | LAB | | | | [address], | | | | | | [place] [address] | | | | + + + + + + | % Monocytes | 6.15Comment: Testing | % | EXTERNAL | | | | performed at [facility], [address] | | LAB | | | [address], | | | | | | [place] [address] | | | | + + + + + + | % | 4.73Comment: Testing | % | EXTERNAL | | | Eosinophils | performed at [facility], [address] | | LAB | | | | [address], | | | | | | [place] [address] | | | | + + + + + + | % Basophils | 0.86Comment: Testing | % | EXTERNAL | | | | performed at [facility], [address] | | LAB | | | | [address], | | | | | | [place] [address] | | | | + + + + + + | Absolute | 8.38 (H)Comment: Testing | 1.90 - 7.40 | EXTERNAL | | | Segmented | performed at [facility], [address] | [address] | LAB | | | Neutrophils | [address], | | | | | | [place] [address] | | | | + + + + + + | Absolute | 1.32Comment: Testing | 1.00 - 3.90 | EXTERNAL | | | Lymphocytes | performed at [facility], [address] | [address] | LAB | | | | [address], | | | | | | [place] [address] | | | | + + + + + + | Absolute | 0.68Comment: Testing | 0.00 - 0.80 | EXTERNAL | | | Monocytes | performed at [facility], [address] | K[address] | LAB | | | | [address], | | | | | | [place] [address] | | | | + + + + + + | Absolute | 0.52 (H)Comment: Testing | 0.00 - 0.50 | EXTERNAL | | | Eosinophils | performed at [facility], [address] | [address] | LAB | | | | [address], | | | | | | [place] [address] | | | | + + + + + + | Absolute | 0.10Comment: Testing | 0.00 - 0.10 | EXTERNAL | | | Basophils | performed at [facility], [address] | [address] | LAB | | | | [address], | | | | | | [place] [address] | | | | + + + [...] | | | | [place] [address] | | | | + + + + + + | K | 3.8Comment: Testing | 3.5 - 4.9 | EXTERNAL | | | | performed at [facility], [address] | mmol/L | LAB | | | | [address], | | | | | | [place] [address] | | | | + + + + + + | Cl | 105Comment: Testing | 99 - 109 mmol/L | EXTERNAL | | | | performed at [facility], [address] | | LAB | | | | [address], | | | | | | [place] [address] | | | | + + + + + + | CO2 | 25Comment: Testing | 23 - 32 mmol/L | EXTERNAL | | | | performed at [facility], [address] | | LAB | | | | [address], | | | | | | [place] [address] | | | | + + + + + + | Anion Gap | 12Comment: Testing | 5 - 20 mmol/L | EXTERNAL | | | | performed at [facility], [address] | | LAB | | | | [address], | | | | | | [place] [address] | | | | + + + + + + | Glucose, | 236 (H)Comment: Testing | 65 - 99 mg/dL | EXTERNAL | | | Fasting | performed at [facility], [address] | | LAB | | | | [address], | | | | | | [place] [address] | | | | + + + + + + | BUN | 6 (L)Comment: Testing | 8 - 25 mg/dL | EXTERNAL | | | | performed at [facility], [address] | | LAB | | | | [address], | | | | | | [place] [address] | | | | + + + + + + | Creatinine | 0.9Comment: Testing | 0.70 - 1.30 | EXTERNAL | | | | performed at [facility], [address] | mg/dL | LAB | | | | [address], | | | | | | [place] [address] | | | | + + + + + + | BUN/Creatin | 7Comment: Testing | | EXTERNAL | | | ine Ratio | performed at [facility], [address] | | LAB | | | | [address], | | | | | | [place] [address] | | | | + + + + + + | Calcium | 8.3 (L)Comment: Testing | 8.5 - 10.5 | EXTERNAL | | | | performed at [facility], [address] | mg/dL | LAB | | | | [address], | | | | | | [place] [address] | | | | + + + [...] Man, | | | | | | [place] [address] | | | | + + + [...] | | | Fingerstick | performed at [facility];[address] | | LAB | | | | [address];[place] | | | | | | [address] | | | | + + + [...] | | | | | performed at [facility];[address] | | | | | | [address];[place] | | | | | | [address] | | | | + + + [...] | | | Fingerstick | performed at [facility];[address] | | LAB | | | | [address];[place], [place] | | | | | | [address] | | | | + + + [...] | | | Fingerstick | performed at [facility];[address] | | LAB | | | | [address];[place] | | | | | | [address] | | | | + + + [...] | | | Fingerstick | performed at [facility];[address] | | LAB | | | | [address];[place] | | | | | | [address] | | | | + + + [...] [place] | | | | | | [address] | | | | + + + + + + | RED CELL | 4.13 (L)Comment: Testing | 4.20 - 5.70 | EXTERNAL | | | COUNT | performed at [facility], [address] | [address] | LAB | | | | [address], | | | | | | [place] [address] | | | | + + + + + + | Hgb | 11.7 (L)Comment: Testing | 13.2 - 17.0 | EXTERNAL | | | | performed at [facility], [address] | g/dL | LAB | | | | [address], | | | | | | [place] [address] | | | | + + + + + + | Hematocrit, | 34.8 (L)Comment: Testing | 39.0 - 50.0 % | EXTERNAL | | | POC | performed at [facility], [address] | | LAB | | | | [address], | | | | | | [place] [address] | | | | + + + + + + | MCV | 84.2Comment: Testing | 80.0 - 100.0 fl | EXTERNAL | | | | performed at [facility], [address] | | LAB | | | | [address], | | | | | | [place] [address] | | | | + + + + + + | MCH | 28.2Comment: Testing | 27.0 - 34.0 pg | EXTERNAL | | | | performed at [facility], [address] | | LAB | | | | [address], | | | | | | [place] [address] | | | | + + + + + + | MCHC | 33.5Comment: Testing | 32.0 - 35.5 | EXTERNAL | | | | performed at [facility], [address] | g/dL | LAB | | | | [address], | | | | | | [place] [address] | | | | + + + + + + | RDW-CV | 42.0Comment: Testing | 37 - 53 fl | EXTERNAL | | | | performed at [facility], [address] | | LAB | | | | [address], | | | | | | [place] [address] | | | | + + + + + + | Platelet | 329Comment: Testing | 150 - 400 K/uL | EXTERNAL | | | Count | performed at [facility], [address] | | LAB | | | Plasma | [address], | | | | | | [place] [address] | | | | + + + + + + | MPV | 7.9Comment: Testing | fl | EXTERNAL | | | | performed at [facility], [address] | | LAB | | | | [address], | | | | | | [place] [address] | | | | + + + + + + | Differentia | AUTOMATEDComment: | | EXTERNAL | | | l Type | Testing performed at | | LAB | | | | [facility], [address] | | | | | | [place] | | | | | | [address] | | | | + + + + + + | % Segmented | 83.29Comment: Testing | % | EXTERNAL | | | | performed at [facility], [address] | | LAB | | | Neutrophils | [address], | | | | | | [place] [address] | | | | + + + + + + | % | 8.71Comment: Testing | % | EXTERNAL | | | Lymphocytes | performed at [facility], [address] | | LAB | | | | [address], | | | | | | [place] [address] | | | | + + + + + + | % Monocytes | 5.08Comment: Testing | % | EXTERNAL | | | | performed at [facility], [address] | | LAB | | | | [address], | | | | | | [place] [address] | | | | + + + + + + | % | 2.32Comment: Testing | % | EXTERNAL | | | Eosinophils | performed at [facility], [address] | | LAB | | | | [address], | | | | | | [place] [address] | | | | + + + + + + | % Basophils | 0.60Comment: Testing | % | EXTERNAL | | | | performed at [facility], [address] | | LAB | | | | [address], | | | | | | [place] [address] | | | | + + + + + + | Absolute | 12.15 (H)Comment: | 1.90 - 7.40 | EXTERNAL | | | Segmented | Testing performed at | K/uL | LAB | | | Neutrophils | [facility], [address] | | | | | | [place] | | | | | | [address] | | | | + + + + + + | Absolute | 1.27Comment: Testing | 1.00 - 3.90 | EXTERNAL | | | Lymphocytes | performed at [facility], [address] | K[address] | LAB | | | | [address], | | | | | | [place] [address] | | | | + + + + + + | Absolute | 0.74Comment: Testing | 0.00 - 0.80 | EXTERNAL | | | Monocytes | performed at [facility], [address] | K/uL | LAB | | | | [address], | | | | | | [place] [address] | | | | + + + + + + | Absolute | 0.34Comment: Testing | 0.00 - 0.50 | EXTERNAL | | | Eosinophils | performed at [facility], [address] | [address] | LAB | | | [address], | | | | | | [place] [address] | | | | + + + + + + | Absolute | 0.09Comment: Testing | 0.00 - 0.10 | EXTERNAL | | | Basophils | performed at [facility], [address] | [address] | LAB | | | | [address], | | | | | | [place] [address] | | | | + + + [...] | | | | [place] [address] | | | | + + + + + + | K | 3.8Comment: Testing | 3.5 - 4.9 | EXTERNAL | | | | performed at [facility], [address] | mmol/L | LAB | | | | [address], | | | | | | [place] [address] | | | | + + + + + + | Cl | 104Comment: Testing | 99 - 109 mmol/L | EXTERNAL | | | | performed at [facility], [address] | | LAB | | | | [address], | | | | | | [place] [address] | | | | + + + + + + | CO2 | 27Comment: Testing | 23 - 32 mmol/L | EXTERNAL | | | | performed at [facility], [address] | | LAB | | | | [address], | | | | | | [place] [address] | | | | + + + + + + | Anion Gap | 11Comment: Testing | 5 - 20 mmol/L | EXTERNAL | | | | performed at [facility], [address] | | LAB | | | | [address], | | | | | | [place] [address] | | | | + + + + + + | Glucose, | 196 (H)Comment: Testing | 65 - 99 mg/dL | EXTERNAL | | | Fasting | performed at [facility], [address] | | LAB | | | | [address], | | | | | | [place] [address] | | | | + + + + + + | BUN | 5 (L)Comment: Testing | 8 - 25 mg/dL | EXTERNAL | | | | performed at [facility], [address] | | LAB | | | | [address], | | | | | | [place] [address] | | | | + + + + + + | Creatinine | 0.9Comment: Testing | 0.70 - 1.30 | EXTERNAL | | | | performed at [facility], [address] | mg/dL | LAB | | | | [address], | | | | | | [place] [address] | | | | + + + + + + | BUN/Creatin | 6Comment: Testing | | EXTERNAL | | | ine Ratio | performed at [facility], [address] | | LAB | | | | [address], | | | | | | [place] [address] | | | | + + + + + + | Calcium | 8.4 (L)Comment: Testing | 8.5 - 10.5 | EXTERNAL | | | | performed at [facility], [address] | mg/dL | LAB | | | | [address], | | | | | | [place] [address] | | | | + + + [...] | | | | | | at [facility], [address] | | | | | | [address], | | | | | | [place] [address] | | | | + + + [...] | | | Fingerstick | performed at [facility];[address] | | LAB | | | | [address];[place] | | | | | | [address] | | | | + + + [...] | | | Fingerstick | performed at [facility];[address] | | LAB | | | | [address];[place] | | | | | | [address] | | | | + + + [...] | | | | | performed at [facility] | | | | | | [facility];[place], [place] | | | | | | [address] | | | | + + + [...] | | | Fingerstick | performed at [facility];[address] | | LAB | | | | [address];[place] | | | | | | [address] | | | | + + + [...] | | | Fingerstick | performed at [facility];[address] | | LAB | | | | [address];[place], [place] | | | | | | [address] | | | | + + + [...] | Procedure Note | + + | Loenard, Rad Conversion - 05/16/2019 2:48 AM PDT [...] | | | | [facility], [address] [facility] | | | | | | [place] | | | | | | [address] | | | | + + + + + + | RED CELL | 4.31Comment: Testing | 4.20 - 5.70 | EXTERNAL | | | COUNT | performed at [facility], [address] | M/uL | LAB | | | | [address], | | | | | | [place] [address] | | | | + + + + + + | Hgb | 12.3 (L)Comment: Testing | 13.2 - 17.0 | EXTERNAL | | | | performed at [facility], [address] | g/dL | LAB | | | | [address], | | | | | | [place] [address] | | | | + + + + + + | Hematocrit, | 36.4 (L)Comment: Testing | 39.0 - 50.0 % | EXTERNAL | | | POC | performed at [facility], [address] | | LAB | | | | [address], | | | | | | [place] [address] | | | | + + + + + + | MCV | 84.5Comment: Testing | 80.0 - 100.0 fl | EXTERNAL | | | | performed at [facility], [address] | | LAB | | | [address], | | | | | | [place] [address] | | | | + + + + + + | MCH | 28.5Comment: Testing | 27.0 - 34.0 pg | EXTERNAL | | | | performed at [facility], [address] | | LAB | | | | [address], | | | | | | [place] [address] | | | | + + + + + + | MCHC | 33.8Comment: Testing | 32.0 - 35.5 | EXTERNAL | | | | performed at [facility], [address] | g/dL | LAB | | | | [address], | | | | | | [place] [address] | | | | + + + + + + | RDW-CV | 42.9Comment: Testing | 37 - 53 fl | EXTERNAL | | | | performed at [facility], [address] | | LAB | | | | [address], | | | | | | [place] [address] | | | | + + + + + + | Platelet | 307Comment: Testing | 150 - 400 K/uL | EXTERNAL | | | Count | performed at [facility], [address] | | LAB | | | Plasma | [address], | | | | | | [place] [address] | | | | + + + + + + | MPV | 8.0Comment: Testing | fl | EXTERNAL | | | | performed at [facility], [address] | | LAB | | | | [address], | | | | | | [place] [address] | | | | + + + + + + | Differentia | AUTOMATEDComment: | | EXTERNAL | | | l Type | Testing performed at | | LAB | | | | [facility], [address] | | | | | | [place] | | | | | | [address] | | | | + + + + + + | % Segmented | 85.00Comment: Testing | % | EXTERNAL | | | | performed at [facility], [address] | | LAB | | | Neutrophils | [address], | | | | | | [place] [address] | | | | + + + + + + | % | 7.15Comment: Testing | % | EXTERNAL | | | Lymphocytes | performed at [facility], [address] | | LAB | | | | [address], | | | | | | [place] [address] | | | | + + + + + + | % Monocytes | 5.39Comment: Testing | % | EXTERNAL | | | | performed at [facility], [address] | | LAB | | | | [address], | | | | | | [place] [address] | | | | + + + + + + | % | 1.86Comment: Testing | % | EXTERNAL | | | Eosinophils | performed at [facility], [address] | | LAB | | | | [address], | | | | | | [place] [address] | | | | + + + + + + | % Basophils | 0.60Comment: Testing | % | EXTERNAL | | | | performed at [facility], [address] | | LAB | | | | [address], | | | | | | [place] [address] | | | | + + + + + + | Absolute | 13.51 (H)Comment: | 1.90 - 7.40 | EXTERNAL | | | Segmented | Testing performed at | K/uL | LAB | | | Neutrophils | [facility], [address] | | | | | | [place] | | | | | | [address] | | | | + + + + + + | Absolute | 1.14Comment: Testing | 1.00 - 3.90 | EXTERNAL | | | Lymphocytes | performed at [facility], [address] | K/uL | LAB | | | | [address], | | | | | | [place] [address] | | | | + + + + + + | Absolute | 0.86 (H)Comment: Testing | 0.00 - 0.80 | EXTERNAL | | | Monocytes | performed at [facility], [address] | [address] | LAB | | | | [address], | | | | | | [place] [address] | | | | + + + + + + | Absolute | 0.30Comment: Testing | 0.00 - 0.50 | EXTERNAL | | | Eosinophils | performed at [facility], [address] | K[address] | LAB | | | [address], | | | | | | [place] [address] | | | | + + + + + + | Absolute | 0.10Comment: Testing | 0.00 - 0.10 | EXTERNAL | | | Basophils | performed at [facility], [address] | K/uL | LAB | | | | [address], | | | | | | [place] [address] | | | | + + + [...] EXTERNAL | | | | performed at [facility], [address] | mmol/L | LAB | | | | [address], | | | | | | [place] [address] | | | | + + + + + + | K | 4.0Comment: Testing | 3.5 - 4.9 | EXTERNAL | | | | performed at [facility], [address] | mmol/L | LAB | | | | [address], | | | | | | [place] [address] | | | | + + + + + + | Cl | 103Comment: Testing | 99 - 109 mmol/L | EXTERNAL | | | | performed at [facility], [address] | | LAB | | | | [address], | | | | | | [place] [address] | | | | + + + + + + | CO2 | 24Comment: Testing | 23 - 32 mmol/L | EXTERNAL | | | | performed at [facility], [address] | | LAB | | | | [address], | | | | | | [place] [address] | | | | + + + + + + | Anion Gap | 14Comment: Testing | 5 - 20 mmol/L | EXTERNAL | | | | performed at [facility], [address] | | LAB | | | | [address], | | | | | | [place] [address] | | | | + + + + + + | Glucose, | 207 (H)Comment: Testing | 65 - 99 mg/dL | EXTERNAL | | | Fasting | performed at [facility], [address] | | LAB | | | | [address], | | | | | | [place] [address] | | | | + + + + + + | BUN | 7 (L)Comment: Testing | 8 - 25 mg/dL | EXTERNAL | | | | performed at [facility], [address] | | LAB | | | | [address], | | | | | | [place] [address] | | | | + + + + + + | Creatinine | 0.9Comment: Testing | 0.70 - 1.30 | EXTERNAL | | | | performed at [facility], [address] | mg/dL | LAB | | | | [address], | | | | | | [place] [address] | | | | + + + + + + | BUN/Creatin | 8Comment: Testing | | EXTERNAL | | | ine Ratio | performed at [facility], [address] | | LAB | | | | [address], | | | | | | [place] [address] | | | | + + + + + + | Calcium | 8.2 (L)Comment: Testing | 8.5 - 10.5 | EXTERNAL | | | | performed at [facility], [address] | mg/dL | LAB | | | | [employer], | | | | | | [place] [address] | | | | + + + [...] W | | | | | | [employer], | | | | | | [place] [address] | | | | + + + [...] | | | Fingerstick | performed at [facility];[address] | | LAB | | | | [address];[place], [place] | | | | | | [address] | | | | + + + [...] with a red-brown discoloration of the bone. [employer] | | | sections are submitted in cassette B1 and placed into decal prior to | | | processing. [facility] MICROSCOPIC EXAMINATION: A-B. Histologic | | | sections of all submitted blocks are examined by light microscopy. | | | These findings, together with the gross examination, support the | | | pathologic diagnosis. PERFORMING LABORATORY: Professional | | | interpretation and technical preparation was performed by [email or web address] | | | [facility], [address], | | | [place] [address] (Barometers Calibrator: Rafat Lorenzo M.D.; [facility]#: | | | [id number]). Diagnostician: Isi Gore MD Pathologist | | [...] | | | Fingerstick | performed at [facility];[address] | | LAB | | | | [address];[place] | | | | | | [address] | | | | + + + [...] | | | Fingerstick | performed at [facility];[address] | | LAB | | | | [address];[place], [place] | | | | | | [address] | | | | + + + [...] | | | Fingerstick | performed at [facility];[address] | | LAB | | | | [address];[place] | | | | | | [address] | | | | + + + [...] EXTERNAL | | | | performed at [facility];[address] | | LAB | | | | [address];[place] | | | | | | [address] | | | | + + + + + + | PCO2 ART | 32 (L)Comment: Testing | 35 - 45 mmHg | EXTERNAL | | | | performed at [facility];[address] | | LAB | | | | [address];[place] | | | | | | [address] | | | | + + + + + + | PO2 ART | 81Comment: Testing | 80 - 105 mmHg | EXTERNAL | | | | performed at [facility];[address] | | LAB | | | | [address];[place] | | | | | | [address] | | | | + + + + + + | Lactate, | <0.30 (L)Comment: | 0.36 - 1.25 | EXTERNAL | | | Arterial | Testing performed at | mmol/L | LAB | | | | [address] | | | [address];[place] [address] | | | | + + + + + + | HCO3 ART | 19 (L)Comment: Testing | 22 - 26 mmol/L | EXTERNAL | | | | performed at [facility];[address] | | LAB | | | | [address];[place] | | | | | | [address] | | | | + + + + + + | POC | 20 (L)Comment: Testing | 23 - 27 mEq/L | EXTERNAL | | | APPEARANCE | performed at [facility];[address] | | LAB | | | UA | [address];[place] | | | | | | [address] | | | | + + + + + + | Base | 6 (H)Comment: Testing | 0.0 - 2.0 | EXTERNAL | | | deficit | performed at [facility];[address] | mmol/L | LAB | | | | [address];[place] | | | | | | [address] | | | | + + + + + + | O2 SAT ART | 96Comment: Testing | 95 - 98 % | EXTERNAL | | | | performed at [facility];[address] | | LAB | | | | [address];[place] | | | | | | [address] | | | | + + + + + + | FiO2, POC | 21Comment: Testing | % | EXTERNAL | | | | performed at [facility];[address] | | LAB | | | | [address];[place] | | | | | | [address] | | | | + + + [...] EXTERNAL | | | | performed at [facility];[address] | mmol/L | LAB | | | | [address];[place], [place] | | | | | | [address] | | | | + + + [...] | | | Fingerstick | performed at [facility];8 | | LAB | | | | [address];[place], [place] | | | | | | [address] | | | | + + + [...] EXTERNAL | | | | performed at [facility], [address] | | LAB | | | | [address], | | | | | | [place] [address] | | | | + + + + + + | Clarity | CLEARComment: Testing | | EXTERNAL | | | | performed at [facility], [address] | | LAB | | | | [address], | | | | | | [place] [address] | | | | + + + + + + | Specific | 1.022Comment: Testing | 1.002 - 1.030 | EXTERNAL | | | [place] | performed at [facility], [address] | | LAB | | | | [address], | | | | | | [place] [address] | | | | + + + + + + | Leukocyte | NEGATIVEComment: | | EXTERNAL | | | Esterase, | Testing performed at | | LAB | | | Urine | [facility], [address] | | | | | | [place] | | | | | | [address] | | | | + + + + + + | Nitrite, | NEGATIVEComment: Testing | | EXTERNAL | | | Urine | performed at [facility], [address] | | LAB | | | | [address], | | | | | | [place] [address] | | | | + + + + + + | Urobilinoge | NORMALComment: Testing | mg/dL | EXTERNAL | | | n, Urine | performed at [facility], [address] | | LAB | | | | [address], | | | | | | [place] [address] | | | | + + + + + + | Protein, | NEGATIVEComment: Testing | mg/dL | EXTERNAL | | | Urine | performed at [facility], [address] | | LAB | | | | [address], | | | | | | [place] [address] | | | | + + + + + + | pH, Urine | 6.0Comment: Testing | 5.0 - 8.0 | EXTERNAL | | | | performed at [facility], [address] | | LAB | | | | [address], | | | | | | [place] [address] | | | | + + + + + + | Blood, | NEGATIVEComment: Testing | | EXTERNAL | | | Urine | performed at [facility], [address] | | LAB | | | | [address], | | | | | | [place] [address] | | | | + + + + + + | Ketones | NEGATIVEComment: Testing | mg/dL | EXTERNAL | | | | performed at [facility], [address] | | LAB | | | | [address], | | | | | | [place] [address] | | | | + + + + + + | Bilirubin, | NEGATIVEComment: Testing | | EXTERNAL | | | Urine | performed at [facility], [address] | | LAB | | | | [address], | | | | | | [place] [address] | | | | + + + + + + | Glucose, | >500 (A)Comment: Testing | mg/dL | EXTERNAL | | | Urine | performed at [facility], [address] | | LAB | | | | [address], | | | | | | [place] [address] | | | | + + + [...] | | LAB | | | | [place];[address] | [address];[place] [address] | | | | + + + + + + | PCO2 ART | 56 (H)Comment: Testing | 35 - 45 mmHg | EXTERNAL | | | | performed at [facility];[address] | | LAB | | | | [address];[place] | | | | | | [address] | | | | + + + + + + | PO2 ART | 74 (L)Comment: Testing | 80 - 105 mmHg | EXTERNAL | | | | performed at [place];[address] | | LAB | | | | [address];[place] | | | | | | [address] | | | | + + + + + + | Lactate, | 7.11 (H)Comment: Testing | 0.36 - 1.25 | EXTERNAL | | | Arterial | performed at [place];[address] | mmol/L | LAB | | | | [address];[place] | | | | | | [address] | | | | + + + + + + | HCO3 ART | 9 (L)Comment: Testing | 22 - 26 mmol/L | EXTERNAL | | | | performed at [place];[address] | | LAB | | | | [address];[place] | | | | | | [address] | | | | + + + + + + | POC | 11 (L)Comment: Testing | 23 - 27 mEq/L | EXTERNAL | | | APPEARANCE | performed at [place];[address] | | LAB | | | UA | [address];[place] | | | | | | [address] | | | | + + + + + + | Base | 25 (H)Comment: Testing | 0.0 - 2.0 | EXTERNAL | | | deficit | performed at [place];[address] | mmol/L | LAB | | | | [address];[place] | | | | | | [address] | | | | + + + + + + | O2 SAT ART | 77 (L)Comment: Testing | 95 - 98 % | EXTERNAL | | | | performed at [place];[address] | | LAB | | | | [address];[place] | | | | | | [address] | | | | + + + + + + | FiO2, POC | 100Comment: Testing | % | EXTERNAL | | | | performed at [place];[address] | | LAB | | | | [address];[place] | | | | | | [address] | | | | + + + [...] [place] | | | | | | [address] | | | | + + + + + + | RED CELL | 4.04 (L)Comment: Testing | 4.20 - 5.70 | EXTERNAL | | | COUNT | performed at [facility], [address] | M/uL | LAB | | | | [address], | | | | | | [place] [address] | | | | + + + + + + | Hgb | 11.4 (L)Comment: Testing | 13.2 - 17.0 | EXTERNAL | | | | performed at [facility], [address] | g/dL | LAB | | | | [address], | | | | | | [place] [address] | | | | + + + + + + | Hematocrit, | 35.1 (L)Comment: Testing | 39.0 - 50.0 % | EXTERNAL | | | POC | performed at [facility], [address] | | LAB | | | | [address], | | | | | | [place] [address] | | | | + + + + + + | MCV | 86.7Comment: Testing | 80.0 - 100.0 fl | EXTERNAL | | | | performed at [facility], [address] | | LAB | | | | [address], | | | | | | [place] [address] | | | | + + + + + + | MCH | 28.2Comment: Testing | 27.0 - 34.0 pg | EXTERNAL | | | | performed at [facility], [address] | | LAB | | | [address], | | | | | | [place] [address] | | | | + + + + + + | MCHC | 32.5Comment: Testing | 32.0 - 35.5 | EXTERNAL | | | | performed at [facility], [address] | g/dL | LAB | | | | [address], | | | | | | [place] [address] | | | | + + + + + + | RDW-CV | 42.0Comment: Testing | 37 - 53 fl | EXTERNAL | | | | performed at [facility], [address] | | LAB | | | | [address], | | | | | | [place] [address] | | | | + + + + + + | Platelet | 262Comment: Testing | 150 - 400 K/uL | EXTERNAL | | | Count | performed at [facility], [address] | | LAB | | | Plasma | [address], | | | | | | [place] [address] | | | | + + + + + + | MPV | 8.4Comment: Testing | fl | EXTERNAL | | | | performed at [facility], [address] | | LAB | | | | [address], | | | | | | [place] [address] | | | | + + + + + + | Differentia | AUTOMATEDComment: | | EXTERNAL | | | l Type | Testing performed at | | LAB | | | | [facility], [address] | | | | | | [place] | | | | | | [address] | | | | + + + + + + | % Segmented | 82.60Comment: Testing | % | EXTERNAL | | | | performed at [facility], [address] | | LAB | | | Neutrophils | [address], | | | | | | [place] [address] | | | | + + + + + + | % | 7.47Comment: Testing | % | EXTERNAL | | | Lymphocytes | performed at [facility], [address] | | LAB | | | | [address], | | | | | | [place] [address] | | | | + + + + + + | % Monocytes | 6.29Comment: Testing | % | EXTERNAL | | | | performed at [facility], [address] | | LAB | | | | [address], | | | | | | [place] [address] | | | | + + + + + + | % | 3.29Comment: Testing | % | EXTERNAL | | | Eosinophils | performed at [facility], [address] | | LAB | | | | [address], | | | | | | [place] [address] | | | | + + + + + + | % Basophils | 0.35Comment: Testing | % | EXTERNAL | | | | performed at [facility], [address] | | LAB | | | | [address], | | | | | | [place] [address] | | | | + + + + + + | Absolute | 13.94 (H)Comment: | 1.90 - 7.40 | EXTERNAL | | | Segmented | Testing performed at | K/uL | LAB | | | Neutrophils | [facility], [address] | | | | | | [place] | | | | | | [address] | | | | + + + + + + | Absolute | 1.26Comment: Testing | 1.00 - 3.90 | EXTERNAL | | | Lymphocytes | performed at [facility], [address] | K/uL | LAB | | | | [address], | | | | | | [place] [address] | | | | + + + + + + | Absolute | 1.06 (H)Comment: Testing | 0.00 - 0.80 | EXTERNAL | | | Monocytes | performed at [facility], [address] | K/uL | LAB | | | | [address], | | | | | | [place] [address] | | | | + + + + + + | Absolute | 0.56 (H)Comment: Testing | 0.00 - 0.50 | EXTERNAL | | | Eosinophils | performed at [facility], [address] | K/uL | LAB | | | | [address], | | | | | | [place] [address] | | | | + + + + + + | Absolute | 0.06Comment: Testing | 0.00 - 0.10 | EXTERNAL | | | Basophils | performed at [facility], [address] | K/uL | LAB | | | | [address], | | | | | | [place] [address] | | | | + + + [...] EXTERNAL | | | | performed at [facility], [address] | | LAB | | | | [address], | | | | | | [place] [address] | | | | + + + [...] EXTERNAL | | | | performed at [facility], [address] | | LAB | | | | [place], | | | | | | [place] [address] | | | | + + + [...] | EXTERNAL | | | A1c | [facility] | | LAB | | | [...] | | | | | performed at [facility], [address] | | | | | [address] [facility], | | | | | | [place] [address] | | | | + + + [...] | | | | | performed at [facility], [address] | | | | | | [facility], | | | | | | [place] [address] | | | | + + + [...] | | | | [place] [address] | | | | + + + + + + | K | 4.6Comment: Testing | 3.5 - 4.9 | EXTERNAL | | | | performed at [facility], [address] | mmol/L | LAB | | | | [address], | | | | | | [place] [address] | | | | + + + + + + | Cl | 103Comment: Testing | 99 - 109 mmol/L | EXTERNAL | | | | performed at [facility], [address] | | LAB | | | | [address], | | | | | | [place] [address] | | | | + + + + + + | CO2 | 22 (L)Comment: Testing | 23 - 32 mmol/L | EXTERNAL | | | | performed at [facility], [address] | | LAB | | | | [address], | | | | | | [place] [address] | | | | + + + + + + | Anion Gap | 14Comment: Testing | 5 - 20 mmol/L | EXTERNAL | | | | performed at [facility], [address] | | LAB | | | | [address], | | | | | | [place] [address] | | | | + + + + + + | Glucose, | 392 (H)Comment: Testing | 65 - 99 mg/dL | EXTERNAL | | | Fasting | performed at [facility], [address] | | LAB | | | | [address], | | | | | | [place] [address] | | | | + + + + + + | BUN | 12Comment: Testing | 8 - 25 mg/dL | EXTERNAL | | | | performed at [facility], [address] | | LAB | | | | [address], | | | | | | [place] [address] | | | | + + + + + + | Creatinine | 1.0Comment: Testing | 0.70 - 1.30 | EXTERNAL | | | | performed at [facility], [address] | mg/dL | LAB | | | | [place], | | | | | | [place] [address] | | | | + + + + + + | BUN/Creatin | 12Comment: Testing | | EXTERNAL | | | ine Ratio | performed at [facility], [address] | | LAB | | | | [place], | | | | | | [place] [address] | | | | + + + + + + | Calcium | 7.6 (L)Comment: Testing | 8.5 - 10.5 | EXTERNAL | | | | performed at [facility], [address] | mg/dL | LAB | | | | [address], | | | | | | [place] [address] | | | | + + + + + + | Protein, | 6.4Comment: Testing | 6.3 - 8.2 g/dL | EXTERNAL | | | Total | performed at [facility], [address] | | LAB | | | | [place], | | | | | | [place] [address] | | | | + + + + + + | Albumin | 2.2 (L)Comment: Testing | 3.6 - 5.0 g/dL | EXTERNAL | | | | performed at [facility], [address] | | LAB | | | | [place], | | | | | | [place] [address] | | | | + + + + + + | Globulin | 4.2Comment: Testing | 1.3 - 4.9 g/dL | EXTERNAL | | | | performed at [facility], [address] | | LAB | | | | [place], | | | | | | [place] [address] | | | | + + + + + + | A/G Ratio | 0.5 (L)Comment: Testing | 1.0 - 2.4 | EXTERNAL | | | | performed at [facility], [address] | | LAB | | | | [address] [employer], | | | | | | [place] [address] | | | | + + + + + + | Bilirubin | 0.6Comment: Testing | 0.1 - 1.5 mg/dL | EXTERNAL | | | Total | performed at [facility], [address] | | LAB | | | | [employer], | | | | | | [place] [address] | | | | + + + + + + | ALP, | 182 (H)Comment: Testing | 35 - 115 U/L | EXTERNAL | | | External | performed at [facility], [address] | | LAB | | | | [address] [address], | | | | | | [place] [address] | | | | + + + + + + | AST | 9 (L)Comment: Testing | 10 - 45 U/L | EXTERNAL | | | | performed at [facility], [address] | | LAB | | | | [address] [place], | | | | | | [place] [address] | | | | + + + + + + | ALT | 16Comment: Testing | 10 - 65 U/L | EXTERNAL | | | | performed at [facility], [address] | | LAB | | | | [address] [employer], | | | | | | [place] [address] | | | | + + + [...] | | | | | | at [facility], [address] | | | | | | [address] [employer], | | | | | | [place] [address] | | | | + + + [...] | | | Fingerstick | performed at [facility];[address] | | LAB | | | | [address];[place], [place] | | | | | | [address] | | | | + + + [...] EXTERNAL LAB | | Testing performed at [facility];[address] [place] [address];[place] [address] MRSA PCR | | | POSITIVE for MRSA by PCRAbnormal | | | Testing performed at [address];[place] [address] | | + + + + +---------+ [...] | | | Fingerstick | performed at [facility];[address] | | LAB | | | | [address];[place] | | | | | | [address] | | | | + + + [...] EXTERNAL | | | | performed at [facility];[address] | mmol/L | LAB | | | | [address];[place] | | | | | | [address] | | | | + + + + + + | K | 4.0Comment: Testing | 3.5 - 4.9 | EXTERNAL | | | | performed at [facility];[address] | mmol/L | LAB | | | | [address];[place] | | | | | | [address] | | | | + + + + + + | Cl | 104Comment: Testing | 99 - 109 mmol/L | EXTERNAL | | | | performed at [facility];[address] | | LAB | | | | [address];[place] | | | | | | [address] | | | | + + + + + + | CO2 | 21 (L)Comment: Testing | 23 - 32 mmol/L | EXTERNAL | | | | performed at [facility];[address] | | LAB | | | | [address];[place] | | | | | | [address] | | | | + + + + + + | Anion Gap | 13Comment: Testing | 5 - 20 mmol/L | EXTERNAL | | | | performed at [facility];[address] | | LAB | | | | [address];[place] | | | | | | [address] | | | | + + + + + + | Glucose, | 254 (H)Comment: Testing | 65 - 99 mg/dL | EXTERNAL | | | Fasting | performed at [facility];[address] | | LAB | | | | [address];[place] | | | | | | [address] | | | | + + + + + + | BUN | 12Comment: Testing | 8 - 25 mg/dL | EXTERNAL | | | | performed at [facility];[address] | | LAB | | | | [address];[place] | | | | | | [address] | | | | + + + + + + | Creatinine | 0.95Comment: Testing | 0.70 - 1.30 | EXTERNAL | | | | performed at [facility];[address] | mg/dL | LAB | | | | [address];[place] | | | | | | [address] | | | | + + + + + + | BUN/Creatin | 13Comment: Testing | | EXTERNAL | | | ine Ratio | performed at [facility];[address] | | LAB | | | | [address];[place] | | | | | | [address] | | | | + + + + + + | Calcium | 6.9 (L)Comment: Testing | 8.5 - 10.5 | EXTERNAL | | | | performed at [facility];[address] | mg/dL | LAB | | | | [address];[place] | | | | | | [address] | | | | + + + + + + | Protein, | 6.3Comment: Testing | 6.3 - 8.2 g/dL | EXTERNAL | | | Total | performed at [facility];[address] | | LAB | | | | [address];[place] | | | | | | [address] | | | | + + + + + + | Albumin | 2.1 (L)Comment: Testing | 3.6 - 5.0 g/dL | EXTERNAL | | | | performed at [facility];[address] | | LAB | | | | [address];[place] | | | | | | [address] | | | | + + + + + + | Globulin | 4.2Comment: Testing | 1.3 - 4.9 g/dL | EXTERNAL | | | | performed at [facility];[address] | | LAB | | | | [address];[place] | | | | | | [address] | | | | + + + + + + | A/G Ratio | 0.5 (L)Comment: Testing | 1.0 - 2.4 | EXTERNAL | | | | performed at [facility];[address] | | LAB | | | | [address];[place] | | | | | | [address] | | | | + + + + + + | Bilirubin | 0.4Comment: Testing | 0.1 - 1.5 mg/dL | EXTERNAL | | | Total | performed at [facility];[address] | | LAB | | | | [address];[place] | | | | | | [address] | | | | + + + + + + | ALP, | 181 (H)Comment: Testing | 35 - 115 U/L | EXTERNAL | | | External | performed at [facility];[address] | | LAB | | | | [address];[place] | | | | | | [address] | | | | + + + + + + | AST | 10Comment: Testing | 10 - 45 U/L | EXTERNAL | | | | performed at [facility];[address] | | LAB | | | | [address];[place] | | | | | | [address] | | | | + + + + + + | ALT | 14Comment: Testing | 10 - 65 U/L | EXTERNAL | | | | performed at [facility];[address] | | LAB | | | | [address];[place] | | | | | | [address] | | | | + + + [...] | | | | | | at [facility];[address] | [address];[place] [address] | | | | + + + [...] 9:30AM Referring Provider Line: | | | [phone] ID: [id number] | | + + + [...] | | 2016 9:30AM Referring Provider Line: [phone] ID: [id number] | + + POC Glucose (12/14/2016 11:34 PM PDT) + + + + + + | Component | Value | Ref Range | Performed | Pathologist | | | | | At | Signature | + + + + + + | Glucose, | 172 (H)Comment: Testing | 65 - 99 mg/dL | EXTERNAL | | | Fingerstick | performed at [facility];[address] | | LAB | | | | [address];[place], [place] | | | | | | [address] | | | | + + + [...] EXTERNAL | | | | performed at [facility];[address] | mmol/L | LAB | | | | [address];[place], [place] | | | | | | [address] | | | | + + + [...] | | | Blood | performed at [facility];[address] | | LAB | | | | [address];[place], [place] | | | | | | [address] | | | | + + + [...] EXTERNAL | | | | performed at [facility] | | LAB | | | | [address];[place] | | | | | | [address] | | | | + + + [...] K/uL | LAB | | | | [facility];[address] | | [address];[place] [address] | | | | + + + + + + | RED CELL | 4.20Comment: Testing | 4.20 - 5.70 | EXTERNAL | | | COUNT | performed at [facility];[address] | M/uL | LAB | | | | [address];[place] | | | | | | [address] | | | | + + + + + + | Hgb | 12.4 (L)Comment: Testing | 13.2 - 17.0 | EXTERNAL | | | | performed at [facility];[address] | g/dL | LAB | | | | [address];[place] | | | | | | [address] | | | | + + + + + + | Hematocrit, | 36.3 (L)Comment: Testing | 39.0 - 50.0 % | EXTERNAL | | | POC | performed at [facility];[address] | | LAB | | | | [address];[place] | | | | | | [address] | | | | + + + + + + | MCV | 86.5Comment: Testing | 80.0 - 100.0 fl | EXTERNAL | | | | performed at [facility];[address] | | LAB | | | | [address];[place] | | | | | | [address] | | | | + + + + + + | MCH | 29.4Comment: Testing | 27.0 - 34.0 pg | EXTERNAL | | | | performed at [facility];[address] | | LAB | | | | [address];[place] | | | | | | [address] | | | | + + + + + + | MCHC | 34.0Comment: Testing | 32.0 - 35.5 | EXTERNAL | | | | performed at [facility];[address] | g/dL | LAB | | | | [address];[place] | | | | | | [address] | | | | + + + + + + | RDW-CV | 42.9Comment: Testing | 37 - 53 fl | EXTERNAL | | | | performed at [facility];[address] | | LAB | | | | [address];[place] | | | | | | [address] | | | | + + + + + + | Platelet | 258Comment: Testing | 150 - 400 K/uL | EXTERNAL | | | Count | performed at [facility];[address] | | LAB | | | Plasma | [address];[place] | | | | | | [address] | | | | + + + + + + | MPV | 8.3Comment: Testing | fl | EXTERNAL | | | | performed at [facility];[address] | | LAB | | | | [address];[place] | | | | | | [address] | | | | + + + + + + | Differentia | AUTOMATEDComment: | | EXTERNAL | | | l Type | Testing performed at | | LAB | | | | [facility];[address];[place] [address] | | | | + + + + + + | % Segmented | 87.43Comment: Testing | % | EXTERNAL | | | | performed at [facility];[address] | | LAB | | | Neutrophils | [address];[place] | | | | | | [address] | | | | + + + + + + | % | 5.56Comment: Testing | % | EXTERNAL | | | Lymphocytes | performed at [facility];[address] | | LAB | | | | [address];[place] | | | | | | [address] | | | | + + + + + + | % Monocytes | 4.36Comment: Testing | % | EXTERNAL | | | | performed at [facility];[address] | | LAB | | | | [address];[place] | | | | | | [address] | | | | + + + + + + | % | 1.84Comment: Testing | % | EXTERNAL | | | Eosinophils | performed at [facility];[address] | | LAB | | | | [address];[place] | | | | | | [address] | | | | + + + + + + | % Basophils | 0.81Comment: Testing | % | EXTERNAL | | | | performed at [facility];[address] | | LAB | | | | [address];[place] | | | | | | [address] | | | | + + + + + + | Absolute | 17.02 (H)Comment: | 1.90 - 7.40 | EXTERNAL | | | Segmented | Testing performed at | K/uL | LAB | | | Neutrophils | [facility];[address] | [address];[place] [address] | | | | + + + + + + | Absolute | 1.08Comment: Testing | 1.00 - 3.90 | EXTERNAL | | | Lymphocytes | performed at [facility];[address] | K/uL | LAB | | | | [address];[place] | | | | | | [address] | | | | + + + + + + | Absolute | 0.85 (H)Comment: Testing | 0.00 - 0.80 | EXTERNAL | | | Monocytes | performed at [facility];[address] | K/uL | LAB | | | | [address];[place] | | | | | | [address] | | | | + + + + + + | Absolute | 0.36Comment: Testing | 0.00 - 0.50 | EXTERNAL | | | Eosinophils | performed at [facility];[address] | K/uL | LAB | | | | [address];[place] | | | | | | [address] | | | | + + + + + + | Absolute | 0.16 (H)Comment: Testing | 0.00 - 0.10 | EXTERNAL | | | Basophils | performed at [facility];[address] | K/uL | LAB | | | | [address];[place] | | | | | | [address] | | | | + + + + + + | RBC | RBC AND PLT MORPHOLOGY | | EXTERNAL | | | Morphology | APPEAR NORMALComment: | | LAB | | | | Testing performed at | | | | | | [facility];[address];[place] [address] | | | | + + + + + + | Platelet | ADEQUATEComment: Testing | | EXTERNAL | | | Estimate | performed at [facility];[address] | | LAB | | | | [address];[place] | | | | | | [address] | | | | + + + + + + | Differentia | SLIDE SCANNED, AGREES | | EXTERNAL | | | l Comments | WITH AUTOMATED | | LAB | | | | RESULTS.Comment: Testing | | | | | | performed at [facility];[address] | | | | | | [address];[place], [place] | | | | | | [address] | | | | + + + [...] EXTERNAL | | | | performed at [facility] | | LAB | | | | [address];[place], [place] | | | | | | [address] | | | | + + + [...] EXTERNAL | | | | performed at [facility];[address] | mmol/L | LAB | | | | [address];[place] | | | | | | [address] | | | | + + + + + + | K | 5.1 (H)Comment: MODERATE | 3.5 - 4.9 | EXTERNAL | | | | HEMOLYSISTesting | mmol/L | LAB | | | | performed at [facility];[address] | | | | | | [address];[place] | | | | | | [address] | | | | + + + + + + | Cl | 93 (L)Comment: Testing | 99 - 109 mmol/L | EXTERNAL | | | | performed at [facility];[address] | | LAB | | | | [address];[place] | | | | | | [address] | | | | + + + + + + | CO2 | 23Comment: Testing | 23 - 32 mmol/L | EXTERNAL | | | | performed at [facility];[address] | | LAB | | | | [address];[place] | | | | | | [address] | | | | + + + + + + | Anion Gap | 14Comment: Testing | 5 - 20 mmol/L | EXTERNAL | | | | performed at [facility];[address] | | LAB | | | | [address];[place] | | | | | | [address] | | | | + + + + + + | Glucose, | 635 (HH)Comment: CALLED | 65 - 99 mg/dL | EXTERNAL | | | Fasting | DR LING COUCH | | LAB | | | | AT 2216 BY RHREAD BACK | | | | | | RESULTS VERIFIEDTesting | | | | | | performed at [facility];[address] | | | | | | [address];[place] | | | | | | [address] | | | | + + + + + + | BUN | 13Comment: Testing | 8 - 25 mg/dL | EXTERNAL | | | | performed at [facility];[address] | | LAB | | | | [address];[place] | | | | | | [address] | | | | + + + + + + | Creatinine | 1.4 (H)Comment: Testing | 0.70 - 1.30 | EXTERNAL | | | | performed at [facility];[address] | mg/dL | LAB | | | | [address];[place] | | | | | | [address] | | | | + + + + + + | BUN/Creatin | 10Comment: Testing | | EXTERNAL | | | ine Ratio | performed at [facility];[address] | | LAB | | | | [address];[place] | | | | | | [address] | | | | + + + + + + | Calcium | 7.9 (L)Comment: Testing | 8.5 - 10.5 | EXTERNAL | | | | performed at [facility];[address] | mg/dL | LAB | | | | [address];[place] | | | | | | [address] | | | | + + + + + + | Protein, | 7.7Comment: Testing | 6.3 - 8.2 g/dL | EXTERNAL | | | Total | performed at [facility];[address] | | LAB | | | | [address];[place] | | | | | | [address] | | | | + + + + + + | Albumin | 2.6 (L)Comment: Testing | 3.6 - 5.0 g/dL | EXTERNAL | | | | performed at [facility];[address] | | LAB | | | | [address];[place] | | | | | | [address] | | | | + + + + + + | Globulin | 5.1 (H)Comment: Testing | 1.3 - 4.9 g/dL | EXTERNAL | | | | performed at [facility];[address] | | LAB | | | | [address];[place] | | | | | | [address] | | | | + + + + + + | A/G Ratio | 0.5 (L)Comment: Testing | 1.0 - 2.4 | EXTERNAL | | | | performed at [facility];[address] | | LAB | | | | [address];[place] | | | | | | [address] | | | | + + + + + + | Bilirubin | 0.6Comment: Testing | 0.1 - 1.5 mg/dL | EXTERNAL | | | Total | performed at [facility];[address] | | LAB | | | | [address];[place] | | | | | | [address] | | | | + + + + + + | ALP, | 259 (H)Comment: Testing | 35 - 115 U/L | EXTERNAL | | | External | performed at [facility];[address] | | LAB | | | | [address];[place] | | | | | | [address] | | | | + + + + + + | AST | 17Comment: MODERATE | 10 - 45 U/L | EXTERNAL | | | | HEMOLYSISTesting | | LAB | | | | performed at [facility];[address] | | | | | | [address];[place] | | | | | | [address] | | | | + + + + + + | ALT | 17Comment: Testing | 10 - 65 U/L | EXTERNAL | | | | performed at [facility];[address] | | LAB | | | | [address];[place] | | | | | | [address] | | | | + + + [...] | | | | | | at [facility];[address] [facility] | | | | | | [facility];[place] [address] | | | | + + + [...] type 2 diabetes mellitus with hyperglycemia, unspecified 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
--- OUTSIDE RECORDS SUMMARY | ~2019-10-08 | XMS | Clinical Summary ---
Demographics + + + | Address | [address] [place] [address] [address] | | | [place] [address] | + + + | Home Phone | | + + + | Preferred Language | Unknown | + + + | Marital Status | Single | + + + | Faith Affiliation | [phone] | + + + | Race | Unknown | + + + | Ethnic Group | Unknown | + + + Author + + + | Author | [facility] (Historical as of | | | 05-18-19) | + + + | Organization | [facility] import2 (Historical as of | | | 05-18-19) [...] Providers + +------+ + | Care Admissions Gate Attendant Name | Role | Phone | [...] +------+-------+ + | MEDICAID | EASTER | [id number] | | | [address] | | | N | | | | [place], [place] | | | [place] | | | | [address] | | | COMMISSIONS MANAGER | | | | | + +--------+ +------+-------+ + | [employer] | YELLOW | [id number] | | | | | PLANS | [...] | Self | [birth year] | Home: | [address] | | | al/Fam | | 1965 | [phone] | [place], [place] | | | vikas | | | [address] | [address] | + +--------+ +--------+ + + | [employer] | Third | Self | [birth year] | Home: | [address] | | | Libertarian | | 1964 | [phone] | [place], [place] | | | [place] | | | [address] | [address] | | | ity | | | | | + +--------+ +--------+ + +
--- OUTSIDE RECORDS SUMMARY | ~2019-10-08 | XMS | Encounter Summary ---
Demographics + + + | Address | [address] | | | [place] [address] | + + + | Home Phone | | + + + | Preferred Language | Unknown | + + + | Marital Status | Single | + + + | [employer]ar[employer] Affiliation | 1077 | + + + | Race | Unknown | + + + | Ethnic Group | Unknown | + + + Author + + + | Author | [facility] | | | and [place] | + + + | Organization | [facility] | | | [...] Team Providers + +------+ + | Care Boiler Setter Name | Role | Phone | + [...] + + | 04/12/ | Telephone | [facility] | Avi Forde MD | [facility] | | 2015 | | GASTROENTEROLOGY | [address], [place] | (egds,colon) | | | | [address] [place] | [address] | | | | | [address] [place], [place] | [address] | | | | | [address] | | | | | | [phone] | | | +--------+ + + + [...]
--- OUTSIDE RECORDS SUMMARY | ~2019-10-08 | XMS | Encounter Summary ---
Demographics + + + | Address | [address] | | | [place] [address] | + + + | Home Phone [...] + + + | Author | [facility] | | | and [place] | + + + | Organization | [facility] | | | [...] Team Providers + +------+ + | Care Security Manager Name | Role | Phone | + +------+ + PCP | Unavailable | + +------+ + Encounter Details +--------+ + + + + | Date | Type | Department | Care Team | Description | +--------+ + + + + | 07/19/ | Hospital | [facility] | | | | 1992 | Encounter | [facility] | | | | | | [address] | | | | | | [place] | | | | | | [address] | | | | | | [phone] | | | +--------+ + + + [...]
--- OUTSIDE RECORDS SUMMARY | ~2019-10-08 | XMS | Encounter Summary ---
Demographics + + + | Address | [address] | | | [place] [address] | + + + | Home Phone [...] Team Providers + +------+ + | Care Aviation Safety Inspector Name | Role | Phone | [...] + + | 04/12/ | Telephone | [facility] | Avi Forde MD | [facility] | | 2015 | | GASTROENTEROLOGY | [address], [place] | | | | | [address] [place] | [address] | | | | | [address] [place], [place] | [address] | | | | | [address] | | | | | | [phone] | | | +--------+ + + + [...]
--- OUTSIDE RECORDS SUMMARY | ~2019-10-08 | XMS | Encounter Summary ---
Demographics + + + | Address | [address] | | | [place] [address] | + + + | Home Phone | | + + + | Preferred Language | Unknown | + + + | Marital Status | Single | + + + | Mandaeism Affiliation | [id number] | + + + | Race | Unknown | + + + | Ethnic Group | Unknown | + + + Author + + + | Author | [facility] | | | and [place] | + + + | Organization | [facility] | | | [...] Team Providers + +------+ + | Care Combination Window Installer Name | Role | Phone | + [...] + | 04/12/ | Telephone | [facility] | Avi Forde MD | [facility] | | 2015 | | GASTROENTEROLOGY | [address], [place] | | | | | [address] [place] | [address] [place] | | | | | [address] [place], [place] | [address] | | | | | [address] | | | | | | [phone] | | | +--------+ + + + [...]
--- OUTSIDE RECORDS SUMMARY | ~2019-10-08 | XMS | Encounter Summary ---
Demographics + + + | Address | [address] | | | [place] [address] | + + + | Home Phone [...] Team Providers + +------+ + | Care Gravel Inspector Name | Role | Phone | + +------+ + | Estrella Light PA-C | PCP | | + +------+ + Encounter Details +--------+ + + + + | Date | Type | Department | Care Team | Description | +--------+ + + + + | 01/13/ | Hospital | [facility] | Conversion | Diagnosis unknown | | 2018 | Encounter | CONVERSION DEP [address] | Transaction, | | | | | [place] | Provider Unknown | | | | | [place] [address] | | | | | | [address] | (Fax) | | | | | [phone] | | | +--------+ + + + [...]
--- OUTSIDE RECORDS SUMMARY | ~2019-10-08 | XMS | Encounter Summary ---
Demographics + + + | Address | [address] | | | [place] [address] | + + + | Home Phone [...] Team Providers + +------+ + | Care Route Rider Supervisor Name | Role | Phone | [...] [facility] | [address], [place] | DM (insulin) | | | | [address] | [address] [place] [address] | | | | | [place] | [id number] | | | | | [address] | | | | | | [phone] | | | +--------+---------+ + + + [...]
--- OUTSIDE RECORDS SUMMARY | ~2019-10-08 | XMS | Clinical Summary ---
Demographics + + + | Address | [address] [place] [address] RD | | | [place] [address] | + + + | Home Phone [...] Team Providers + +------+ + | Care Upholsterer Apprentice Name | Role | Phone | [...] + + + | Overview: Problem list development administrator utility | + + + +---+ | [...] | [employer] | [employer]A | [id number] | | [phone] | | Medica | | MEDICAID HMO | HEALTH | | 018-Pr | 1 | | id | | | MDCD | | esent | | | | | | HMO OR | | | | | | + +--------+ +--------+ +---------+--------+ | [facility] | IHS | [id number] | | | | Indemn | | [...] Person | Self | [birth year] | [address] | | | al/Fam | | [phone] | [phone] | [place] | | | vikas | | | 8 (Home) | [address] | + +--------+ +--------+ + + Advance Directives + + + + + | Type | Date Recorded | Patient | Explanation | | | | Circuit Tester | | + + + + + | Power of | | | | | Ingot Stripper | | | | + + + + + | Advance | | | | | Directive | | | | + + + + +
--- OUTSIDE RECORDS SUMMARY | ~2019-10-08 | XMS | Encounter Summary ---
Demographics + + + | Address | [address] | | | [place] [address] | + + + | Home Phone [...] Providers + +------+ + | Care Senior Investment Analyst Name | Role | Phone | + +------+ + PCP | Unavailable | + +------+ + Encounter Details +--------+ + + + + | Date | Type | Department | Care Team | Description | +--------+ + + + + | 05/21/ | Hospital | [facility] | Unknown, | | | 1992 | Encounter | MED CTR XRAY [address] | [place] | | | | | [place] | [phone] | | | | | [place] [address] | | | | | | [phone] | | | +--------+ + + + [...]
--- OUTSIDE RECORDS SUMMARY | ~2019-10-08 | XMS | Encounter Summary ---
Demographics + + + | Address | [address] | | | [place] [address] | + + + | Home Phone [...] Providers + +------+ + | Care Shoe Puller Name | Role | Phone | + [...] | diarrhea | | | | [address] [place], [place] | [address] | | | | | [address] | | | | | | [phone] | | | +--------+ + + + [...]
--- OUTSIDE RECORDS SUMMARY | ~2019-10-08 | XMS | Encounter Summary ---
Demographics + + + | Address | [address] | | | [place] [address] | + + + | Home Phone [...] Team Providers + +------+ + | Care Meeting Specialist Name | Role | Phone | + +------+ + | Estrella Light PA-C | PCP | | + +------+ + Encounter Details +--------+---------+ + + + | Date | Type | Department | Care Team | Description | +--------+---------+ + + + | 04/12/ | Surgery | [facility] | Avi Forde MD | EGD / COLONOSCOPY - | | 2015 | | MED CTR MP INTRA OP | [address], [place] | DM (insulin) | | | | [address] | [address] [place] | | | | | [place] | [id number] | | | | | [address] | | | | | | [phone] | | | +--------+---------+ + + + [...]
--- OUTSIDE RECORDS SUMMARY | ~2019-10-08 | XMS | Encounter Summary ---
Demographics + + + | Address | [address] | | | [place] [address] | + + + | Home Phone [...] Providers + +------+ + | Care Wet Inspector Optical Glass Name | Role | Phone | + [...] | diarrhea | | | | [address] [place], [place] | [address] | | | | | [address] | | | | | | [phone] | | | +--------+ + + + [...]
--- OUTSIDE RECORDS SUMMARY | ~2019-10-08 | XMS | Encounter Summary ---
Demographics + + + | Address | [address] | | | [place] [address] | + + + | Home Phone [...] Team Providers + +------+ + | Care Contract Admin Name | Role | Phone | + +------+ + PCP | Unavailable | + +------+ + Encounter Details +--------+ + + + + | Date | Type | Department | Care Team | Description | +--------+ + + + + | 05/21/ | Hospital | [facility] | Unknown, | | | 1992 | Encounter | MED CTR XRAY [address] | [place] | | | | | [place] | [phone] | | | | | [place] [address] | | | | | | [phone] | | | +--------+ + + + [...]
--- OUTSIDE RECORDS SUMMARY | ~2019-10-08 | XMS | Encounter Summary ---
Demographics + + + | Address | [address] | | | [place] [address] | + + + | Home Phone [...] Providers + +------+ + | Care Sales Branch Manager Name | Role | Phone | + +------+ + | Estrella Light PA-C | PCP | | + +------+ + Encounter Details +--------+ + + + + | Date | Type | Department | Care Team | Description | +--------+ + + + + | 09/04/ | Abstract | [facility] | Avi Forde MD | | | 2014 | | GASTROENTEROLOGY | [address], [place] | | | | | [address] [place] | [address] [place] | | | | | [address] [place], [place] | [address] | | | | | [address] | | | | | | [phone] | | | +--------+ + + + [...]
--- OUTSIDE RECORDS SUMMARY | ~2019-10-08 | XMS | Encounter Summary ---
Demographics + + + | Address | [address] | | | [place] [address] | + + + | Home Phone [...] Team Providers + +------+ + | Care Primary Care Physician Name | Role | Phone | + +------+ + | Estrella Light PA-C | PCP | | + +------+ + Encounter Details +--------+ + + + + | Date | Type | Department | Care Team | Description | +--------+ + + + + | 01/13/ | Hospital | [facility] | Cameron Lopez | | | 2018 - | Encounter | [facility] | MD [place] | | | | | CLINICAL DECISION | [place], [place] | | | 01/14/ | | UNIT [facility] | [address] | | | 2017 | | [place], [place] | | | | | | [address] | | | | | | [phone] | | | +--------+ + + + [...] 01/14/181931 Date of Service: 01/14/18899 Status: Signed Excellence Specialist: Abhinav Winters DO (Physician) The patient is 52 y.o. 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, presented to the emergency department of [facility] in [place] today with complaints of upper, sharp [...] Date of Service: 04/15/18 0900 Status: Signed Excellence Specialist: Elizabeth Galvez, RN (Registered Nurse) Approached [...] 01/13/181399 Date of Service: 01/13/181399 Status: Signed Excellence Specialist: Rosalba Luo RPH (Pharmacist) Clinical Pharmacy [...] | | | Basophils | performed at [facility], [address] | K/uL | LAB | | | | [place], | | | | | | [place] [address] | | | | + + + [...] | | | | [place] [address] | | | | + + + [...] EXTERNAL | | | | performed at [facility], [address] | | LAB | | | | [place], | | | | | | [place] [address] | | | | + + [...] EXTERNAL | | | | performed at [facility], [address] | | LAB | | | | [place], | | | | | | [place] [address] | | | | + + [...] | EXTERNAL | | | A1c | [facility] | | LAB | | | [...] | | | | | performed at [facility], [address] | | | | | | [facility], | | | | | | [place] [address] | | | | + + + [...] | | | Cholesterol | performed at [facility], [address] | | LAB | | | , | [place], | | | | | Calculated, | [place] [address] | | | | | External | [...] | | | | | | at [facility], [address] | | | | | | [place], | | | | | | [place] [address] | | | | + + + [...] | | Fingerstick | performed at [facility];[address] | | LAB | | | | [address];[place], [place] | | | | | | [address] | | | | + + + [...] | | | | performed at [facility];[address] | | LAB | | | | [address];[place], [place] | | | | | | [address] | | | | + + + [...] | | Fingerstick | performed at [facility];[address] | | LAB | | | | [address];[place], [place] | | | | | | [address] | | | | + + + [...] | | | | | | ACUTE AR Testing | | | | | | performed at [facility];[address] | | | | | | [address] [facility];[place], [place] | | | | | | [address] | | | | + + + [...] | | | | performed at [facility];[address] | | LAB | | | | [address];[place] | | | | | | [address] | | | | + + + [...] | | Fingerstick | performed at [facility];[address] | | LAB | | | | [address];[place] | | | | | | [address] | | | | + + + [...] | | Fingerstick | performed at [facility];[address] | | LAB | | | | [address];[place] | | | | | | [address] | | | | + + + [...] | | | | | | ACUTE AR Testing | | | | | | performed at [facility] | | | | | | [address] [facility];[place], [place] | | | | | | [address] | | | | + + + [...] | | | | performed at [facility];[address] | | LAB | | | | [address];[place], [place] | | | | | | [address] | | | | + + + [...] TV A Star: 0.46 m/s TV Dec Uinta: 2.14 m/s2 TV Dec Time: | | | 223.61 ms TV E Star: 0.47 m/s TV E/A Ratio: 1.03 | | | Tower Crane Operator: DIDI Authenticated by: Dereck Galicia Report [...] (A-L): | | 16.36 ml/m2LAAs A2C: 13.19 [id number] A-L A2C: 34.91 mlLALs A2C: 4.23 cmLAAs A4C: | | 11.37 [id number] A-L A4C: 29.21 mlLALs A4C: 3.75 cmRAAd: 13.57 [id number] A-L: | | 35.22 mlRAEDV MOD: 30.46 mlRALd: 4.44 cmTAPSE: 1.67 cmHR: 82.18 BPMAV maxPG: | | 3.19 mmHgAV meanP.99 mmHgAV Vmax: 0.89 m/Simran Vmean: 0.69 m/Simran VTI: 18.16 | | cmAVA Vmax: 3.34 cm2AVA (VTI): 3.51 xt0RSIX Vmax: 0.00 cm2/m2AVAI (VTI): 0.00 | | cm2/m2LVCI Dopp: 2.41 l/irnb0QBRP Dopp: 5.00 l/minHR: 78.46 BPMLVOT maxP.34 | [...] 3 mmHgTV A Star: 0.46 m/sTV Dec Uinta: 2.14 m/s2TV Dec Time: 223.61 | | msTV E Star: 0.47 m/sTV E/A Ratio: 1.03 Tower Crane Operator: Nishaticated by: Dereck | | KorimerlaReport [...] A Star: 0.46 m/s | |TV Dec Uinta: 2.14 m/s2 | |TV Dec Time: 223.61 ms | |TV E Star: 0.47 m/s | |TV E/A Ratio: 1.03 | | | |Tower Crane Operator: GD | |Authenticated by: Dereck Galicia [...] | | Fingerstick | performed at [facility];[address] | | LAB | | | | [address];[place], [place] | | | | | | [address] | | | | + + + [...] | | | | | | ACUTE AR Testing | | | | | | performed at [facility];[address] | | | | | | [facility];[place], [place] | | | | | | [address] | | | | + + + [...] | | PCRAbnormal Testing performed at [facility];[address] [place] [address];[place] [address] | | + + + + +---------+ [...]
--- OUTSIDE RECORDS SUMMARY | ~2019-10-08 | XMS | Encounter Summary ---
Demographics + + + | Address | [address] | | | [place] [address] | + + + | Home Phone [...] + + + | Author | [facility] | | | and [place] | + + + | Organization | [facility] | | [...] Team Providers + +------+ + | Care Pathology Technologist Name | Role | Phone | + +------+ + | Estrella Light PA-C | PCP | | + +------+ + Encounter Details +--------+ + + + + | Date | Type | Department | Care Team | Description | +--------+ + + + + | 12/14/ | Hospital | [facility] | [place], | Osteomyelitis of | | 2017 - | Encounter | [facility] | MD [address] | foot, left, acute | | | | CARE FLOOR [address] | [address] | ([facility]); Uncontrolled | | 12/20/ | | [address] | [place] [address] | type 2 diabetes | | 2017 | | [place], [place] | [phone] | mellitus with | | | | [address] | | hyperglycemia, | | | | [phone] | | unspecified long | | | [...] 1933 Date of Service: 12/20/161538 Status: Addendum Concrete Rod Buster: Bunny Chaney MD (Physician) Related Notes: Original Note by Bunny Chaney MD (Physician) filed at 12/26/16 0644 [facility] Service: Hospitalist Physician Discharge Summary Patient ID: Kuldip Smith [id number] y.o. 1965 Admit date: 12/14/2016 Discharge [...] been approved, which should be given from [facility] ec until further approval from [...] up: Estrella Light PA-C [address] [place] [address] Rebeca Reza MD [address] [facility] [address] Schedule an appointment as soon as possible for a visit in 10 days Dictation and unloader operator or software, ideasoft, used which may contain error for similar [...] - AMPUTATION; Surgeon: Walter Fernandez DPM; Location: [facility] OR; Service: Podiatry; Laterality: Left; [...] Management by Jenny Vaughan RN at 12/20/16 2835 Author: Jenny Vaughan RN Service: (none) Author Type: Registered Nurse Filed: 12/20/16 5118 Date of Service: 12/20/161538 Status: Signed Concrete Rod Buster: Jenny Vaughan RN (Registered Nurse) 1610 - Received call from [facility] stating they are now unable to accept pa tient due to a "freeze on admits". They are aware patient has been discharged and is en rou te to home. They are still unable to accept. Call placed to [facility] OPP rega rding need for [...] Management by Mirlande Prescott RN at 12/20/16 4892 Author: Mirlande Prescott RN Service: (none) Author Type: Registered Nurse Filed: 12/21/16 0808 Date of Service: 12/20/16 1539 Status: Signed Concrete Rod Buster: Mirlande Prescott RN (Registered Nurse) 0800: Tc to pt's PCP, Coby Light, with [facility], to updat e about [facility] not being able to admit pt. Coby states she and Charlotte will work on getting pt the appropriate wound vac care he needs, they are going to try and get pt into O P wound therapy with [facility] or maybe to OP in [place]. Coby states she will als o call [facility] as to when they can admit pt under their services. Maribel onver ruben Transaction, Provider Unknown - 12/20/2016 1:03 PM PDT Progress Notes by Rachael Molina RN at 12/20/16 1303 Author: Rachael Molina RN Service: Wound/Ostomy Care Author Type: Registered Nurse Filed: 12/20/16 1311 Date of Service: 12/20/16 1303 Status: Signed Concrete Rod Buster: Rachael Molina RN (Registered Nurse) Wound care in to switch patient out to portable wound vac unit. This is a sol vac on l oan from [facility]. Explained to patient when his insurance approves his home vac unit, that t his sol vac is to be returned via [employer]. Instructions given in detail, voiced candelaria frias. Photo taken of tracking number and faxed to Alicia [facility] rep. Instructions on how to use the [...] for further protection. Hospital vac dc'd in [facility] express: #[id number] Rachael Molina RN, ON 12/20/2016 1:10 PM onver ruben Transaction, Provider Unknown - 12/20/2016 11:34 AM PDT Case Management by Mirlande Prescott RN at 12/20/16 1134 Author: Mirlande Prescott RN Service: (none) Author Type: Registered Nurse Filed: 12/20/16 1459 Date of Service: 12/20/16 1134 Status: Addendum Concrete Rod Buster: Mirlande Prescott RN (Registered Nurse) Related Notes: Original Note by Mirlande Prescott RN (Registered Nurse) filed at 12/20/16 114 9 Per rounding with pt, he will be d/c home today. Pt states his mother will be providing tra nsportation home. Wound vac has been approved by [facility]. [facility] has been set up, and they have been notified about d/c, pt may not be able t o be admitted until . Pt's wound dressing is due Monday. Tc to Angie with wound care, it's not ideal that pt's dressing doesn't get changed until , but it is ok to wait. Dr Chaney was notified and agrees with plan. Tc to Coby [phone] and Charlotte [phone] with [facility]/mannie pickens nd left mssgs of pt's d/c Today. Faxed AVS to [facility] Maribel Irqa Mcgregor PT - 12/20/2016 10:07 AM PDTFormatting of this note might be different from th e original. Therapy Progress Note by Karina Zabala PT at 12/20/16 1007 Author: Karina Zabala PT Service: (none) Author Type: Physical Therapist Filed: 12/20/16 1037 Date of Service: 12/20/16 1007 Status: Signed Concrete Rod Buster: Karina Zabala PT (Physical Therapist) 12/20/16 1007 [...] (none) Author Type: Physical Therapist Filed: 12/19/16 0290 Date of Service: 12/19/166 Status: Signed Concrete Rod Buster: Natalia Marte PT (Physical Therapist) 12/19/16 1646 PT Last Visit PT Received On 12/19/16 Reason for Treatment Other (comment) (L foot osteomyelitis) Requires PT Follow Up Awaiting tx order Follow up PT Only? Yes (Assistive device assessment) Focus for Next Treatment Equipment Trial;Stair Training (bilateral axillary crutches and stair training) PT Eval/Reassessment Date 12/19/16 Assistance Required 1 person Mica Patcher Needed No Home Environment Type of Home Home one story Home Exterior Layout 1-3 steps (2 JEISON) Home Interior Layout Lives on main level with bedroom/bathroom Bathroom Shower/Tub Tub/shower unit Bathroom Toilet Raised Bathroom Equipment Grab bars outside of shower/bath;Raised toilet seat Bathroom Accessibility Not accessible Home Equipment Cane single point;Crutches-axillary Prior Function Level of [place] Independent with ADLs;Independent with IADLs;Modified independent wi [...] Eval/Reassessment Date 12/19/16 Assistance Required 1 person Mica Patcher Needed No Precautions LE Precaution(s) LLE Precautions/WB [...] Notes by Rebeca Reza MD at 12/19/16 1390 Author: Rebeca Reza MD Service: Infectious Disease Author Type: Physician Filed: 12/20/16 0639 Date of Service: 12/19/16 6196 Status: Signed Concrete Rod Buster: Rebeca Reza MD (Physician) [facility] Service: Infectious Disease Progress Note Hospital Day: [...] Dec 15 2016 9:30AM Referring Provider Line: [phone] ID: [id number] MRI foot left without contrast [[id number]] Impression 1. Recent amputation of the LEFT 4th toe. 2. No radiographic evidence of residual osteomyelitis in the remaining ossicles of the LEF T forefoot. 3. Moderately extensive vascular calcifications. X-ray foot left [[id number]] PROBLEM LIST Principal Problem: Osteomyelitis (HCC) Active [...] Date of Service: 12/19/16 1103 Status: Signed Concrete Rod Buster: Dell Archer DO (Physician) PROGRESS NOTE 12/19/2016 [...] 1103 Date of Service: 12/19/16914 Status: Addendum Concrete Rod Buster: Jenny Vaughan RN (Registered Nurse) Related Notes: Original Note by Jenny Vaughan RN (Registered Nurse) filed at 12/19/16 [phone] - [facility]. She wi ll be following patient [...] accept patient. Face to face order faxed ([phone]) Charlotte [facility] RN [phone] Alicia with [facility] notified of wound vac placement. Auth form [...] 12/18/161847 Date of Service: 12/18/161844 Status: Signed Concrete Rod Buster: Gerber Hay RN (Registered Nurse) Pt resting [...] 12/18/16933 Date of Service: 12/18/16928 Status: Addendum Concrete Rod Buster: Dell Archer DO (Physician) Related Notes: Original [...] 12/18/16899 Date of Service: 12/18/16854 Status: Signed Concrete Rod Buster: Walter Fernandez DPM (Doctor of Podiatric Medicine) [facility] Service: Podiatry Progress Note Hospital Day: LOS: [...] home health care. Dr. David DPM in [place] take s care of this patient and [...] 12/18/16845 Date of Service: 12/18/16845 Status: Signed Concrete Rod Buster: Destini Vargas RPH (Pharmacist) Day 5 Vanco [...] 1108 Date of Service: 12/18/16820 Status: Signed Concrete Rod Buster: Rebeca Reza MD (Physician) [facility] Service: Infectious Disease Progress Note Hospital Day: [...] Dec 15 2016 9:30AM Referring Provider Line: [phone] ID: [id number] MRI foot left without contrast [[id number]] Impression 1. Recent amputation of the LEFT 4th toe. 2. No radiographic evidence of residual osteomyelitis in the remaining ossicles of the LEF T forefoot. 3. Moderately extensive vascular calcifications. X-ray foot left [[id number]] PROBLEM LIST Principal Problem: Osteomyelitis (HCC) Active [...] Note by Jihan Jacinto RPH at 12/17/16 0339 Author: Jihan Jacinto RPH Service: Pharmacy Author Type: Pharmacist Filed: 12/17/162246 Date of Service: 12/17/162246 Status: Signed Concrete Rod Buster: Jihan Jacinto RPH (Pharmacist) Clinical Pharmacy Note: [...] 12/17/161750 Date of Service: 12/17/161742 Status: Signed Concrete Rod Buster: Gerber Hay RN (Registered Nurse) Wound vac [...] Notes by Rebeca Reza MD at 12/17/16 9600 Author: Rebeca Reza MD Service: Infectious Disease Author Type: Physician Filed: 12/17/16 170 Date of Service: 12/17/16 1510 Status: Addendum Concrete Rod Buster: Rebeca Reza MD (Physician) Related Notes: Original Note by Rebeca Reza MD (Physician) filed at 12/17/16 8964 [facility] Service: Infectious Disease Progress Note Hospital Day: [...] Dec 15 2016 9:30AM Referring Provider Line: [phone] ID: [id number] MRI foot left without contrast [[id number]] Impression 1. Recent amputation of the LEFT 4th toe. 2. No radiographic evidence of residual osteomyelitis in the remaining ossicles of the LEF T forefoot. 3. Moderately extensive vascular calcifications. X-ray foot left [[id number]] PROBLEM LIST Principal Problem: Osteomyelitis (HCC) Active [...] Doctor of Podiatric Medi cine Filed: 12/17/16 9441 Date of Service: 12/17/16 1406 Status: Signed Concrete Rod Buster: Walter Fernandez DPM (Doctor of Podiatric Medicine) [facility] Service: Podiatry Progress Note Hospital Day: LOS: [...] Note by Gerber Hay RN at 12/17/16 4789 Author: Gerber Hay RN Service: (none) Author Type: Registered Nurse Filed: 12/17/16 5877 Date of Service: 12/17/16 1144 Status: Signed Concrete Rod Buster: Gerber Hay RN (Registered Nurse) Pt had [...] Date of Service: 12/17/16 105 Status: Signed Concrete Rod Buster: Dell Archer DO (Physician) PROGRESS NOTE 12/17/2016 [...] 12/17/16834 Date of Service: 12/17/16834 Status: Signed Concrete Rod Buster: Destini Vargas RPH (Pharmacist) Day 4 Vanco [...] 12/17/168 Date of Service: 12/17/16307 Status: Signed Concrete Rod Buster: Jihan Jacinto RPH (Pharmacist) Clinical Pharmacy Note: [...] 12/16/161719 Date of Service: 12/16/161709 Status: Signed Concrete Rod Buster: Walter Fernandez DPM (Doctor of Podiatric Medicine) [facility] Service: Podiatry Progress Note Hospital Day: LOS: [...] Notes by Rebeca Reza MD at 12/16/16 1017 Author: Rebeca Reza MD Service: Infectious Disease Author Type: Physician Filed: 12/16/16 1606 Date of Service: 12/16/163 Status: Signed Concrete Rod Buster: Rebeca Reza MD (Physician) [facility] Service: Infectious Disease Progress Note Hospital Day: [...] Dec 15 2016 9:30AM Referring Provider Line: [phone] ID: [id number] MRI foot left without contrast [[id number]] Impression 1. Recent amputation of the LEFT 4th toe. 2. No radiographic evidence of residual osteomyelitis in the remaining ossicles of the LEF T forefoot. 3. Moderately extensive vascular calcifications. X-ray foot left [[id number]] PROBLEM LIST Principal Problem: Osteomyelitis (HCC) Active [...] Management by Jenny Vaughan RN at 12/16/16 5433 Author: Jenny Vaughan RN Service: (none) Author Type: Registered Nurse Filed: 12/16/16 5909 Date of Service: 12/16/16 3345 Status: Signed Concrete Rod Buster: Jenny Comfort, RN (Registered Nurse) 12/16/16 5006 Discharge Planning Evaluation Admitting Diagnosis osteomyelitis Readmission No Living Arrangements Parent Support Systems Parent;Family members Type of Residence Private residence House type House-1 story Steps to enter 2 Independent with ADL's Yes Independent with Mobility Yes Mental Status Oriented Prior functional status not employed, independent Power of Siderographist No Anticipated Discharge Plan Post Acute Care [...] is: Estrella Light PA-C Patient's insurance: Medicare/[facility] Coverage concerns: None Medication coverage/concerns: None Community resources utilized / needed: TBD pending pt progress and treatment plan. Sascha garcia need home health services along with IV abx. Discussed with patient and he states und erstanding. Referral sent to [facility] for nursing services as patient lives in [place]. Options for home IV abx services provided to pt/family and they do not have a preference. Referral to [facility] will follow. Pt/family requested I notify Coby at the [facility] of pt status as she ar ranges services for them. Contacted Coby and provided current discharge plan. If there is a change in plan, Coby requests to be notified as she will continue to follow patient after discharge. She also states pt will be followed by their community health nurse (Charlotte ) who works alongside [facility]. Coby [facility] [phone] Assistance in transportation: Pt's family is able [...] Date of Service: 12/16/16 1012 Status: Signed Concrete Rod Buster: Dell Archer DO (Physician) PROGRESS NOTE 12/16/2016 [...] Date of Service: 12/15/16 1248 Status: Signed Concrete Rod Buster: Jenny Vaughan RN (Registered Nurse) Attempted to [...] 12/15/16405 Date of Service: 12/15/16405 Status: Signed Concrete Rod Buster: Jihan Jacinto RPH (Pharmacist) Clinical Pharmacy Note: [...] 12/15/16404 Date of Service: 12/15/16404 Status: Signed Concrete Rod Buster: Jihan Jacinto RPH (Pharmacist) Clinical Pharmacy Note: [...] [place] | | | | | | [address] | | | | + + + [...] | LAB | | | | [address];[place], [place] | | | | | | [address] | | | | + + + [...] [place] | | | | | | [address] | | | | + + + + + + | RED CELL | 4.00 (L)Comment: Testing | 4.20 - 5.70 | EXTERNAL | | | COUNT | performed at [facility];888 | M/uL | LAB | | | | [address];[place] | | | | | | [address] | | | | + + + + + + | Hgb | 11.6 (L)Comment: Testing | 13.2 - 17.0 | EXTERNAL | | | | performed at [facility];888 | g/dL | LAB | | | | [address];[place] | | | | | | [address] | | | | + + + + + + | Hematocrit, | 33.9 (L)Comment: Testing | 39.0 - 50.0 % | EXTERNAL | | | POC | performed at [facility];[address] | | LAB | | | | [address];[place] | | | | | | [address] | | | | + + + [...] [place] | | | | | | [address] | | | | + + + + + + | MCHC | 34.1Comment: Testing | 32.0 - 35.5 | EXTERNAL | | | | performed at [facility];888 | g/dL | LAB | | | | [address];[place] | | | | | | [address] | | | | + + + + + + | RDW-CV | 42.0Comment: Testing | 37 - 53 fl | EXTERNAL | | | | performed at [facility];888 | | LAB | | | | [address];[place] | | | | | | [address] | | | | + + + + + + | Platelet | 392Comment: Testing | 150 - 400 K/uL | EXTERNAL | | | Count | performed at [facility];888 | | LAB | | | Plasma | [address];[place] | | | | | | [address] | | | | + + + + + + | MPV | 7.0Comment: Testing | fl | EXTERNAL | | | | performed at [facility];[address] | | LAB | | | | [address];[place] | | | | | | [address] | | | | + + + + + + | Differentia | MANUALComment: Testing | | EXTERNAL | | | l Type | performed at [facility];[address] | | LAB | | | | [address];[place] | | | | | | [address] | | | | + + + + + + | Segmented | 69Comment: Testing | % | EXTERNAL | | | Neutrophils | performed at [facility];888 | | LAB | | | Manual | [address];[place] | | | | | | [address] | | | | + + + + + + | Lymphocytes | 21Comment: Testing | % | EXTERNAL | | | Manual | performed at [facility];[address] | | LAB | | | | [address];[place] | | | | | | [address] | | | | + + + + + + | Monocytes | 4Comment: Testing | % | EXTERNAL | | | Manual | performed at [facility];[address] | | LAB | | | | [address];[place] | | | | | | [address] | | | | + + + + + + | Eosinophils | 6Comment: Testing | % | EXTERNAL | | | Manual | performed at [facility];[address] | | LAB | | | | [address];[place] | | | | | | [address] | | | | + + + + + + | Absolute | 5.08Comment: Testing | 1.90 - 7.40 | EXTERNAL | | | Neutrophils | performed at [facility];888 | K/uL | LAB | | | | [address];[place] | | | | | | [address] | | | | + + + + + + | Absolute | 1.55Comment: Testing | 1.00 - 3.90 | EXTERNAL | | | Lymphocytes | performed at [facility];888 | K/uL | LAB | | | | [address];[place] | | | | | | [address] | | | | + + + + + + | Absolute | 0.29Comment: Testing | 0.00 - 0.80 | EXTERNAL | | | Monocytes | performed at [facility];888 | K/uL | LAB | | | | [address];[place] | | | | | | [address] | | | | + + + + + + | Absolute | 0.44Comment: Testing | 0.00 - 0.50 | EXTERNAL | | | Eosinophils | performed at [facility];888 | K/uL | LAB | | | | [address];[place] | | | | | | [address] | | | | + + + + + + | RBC | NORMALComment: Testing | | EXTERNAL | | | Morphology | performed at [facility];[address] | | LAB | | | | [address];[place] | | | | | | [address] | | | | + + + [...] [place] | | | | | | [address] | | | | + + + [...] | LAB | | | | [address];[place], [place] | | | | | | [address] | | | | + + + [...] | LAB | | | | [address];[place] | | | | | | [address] | | | | + + + [...] | LAB | | | | [address];[place] | | | | | | [address] | | | | + + + [...] [place] | | | | | | [address] | | | | + + + [...] | LAB | | | | [address];[place], [place] | | | | | | [address] | | | | + + + [...] | LAB | | | | [address];[place] | | | | | | [address] | | | | + + + [...] | LAB | | | | [address];[place], [place] | | | | | | [address] | | | | + + + [...] | LAB | | | | [address];[place] | | | | | | [address] | | | | + + + [...] | | performed at [facility];[address] [place] [address];[place] [address] TOXIN A | | | NEGATIVE Testing performed at | | | [facility];[address] [facility];[place] [address] C DIFF INTERPRETATION | | | Negative for toxigenic C.difficile. Testing performed at | | | [facility];[address] [place] [address];[place] [address] | | + + + + +---------+ [...] | LAB | | | | [address];[place] | | | | | | [address] | | | | + + + [...] | | | | performed at [facility], [address] | K/uL | LAB | | | | [address], | | | | | | [place] [address] | | | | + + + + + + | RED CELL | 3.92 (L)Comment: Testing | 4.20 - 5.70 | EXTERNAL | | | COUNT | performed at [facility], [address] | M/uL | LAB | | | | [address], | | | | | | [place] [address] | | | | + + + + + + | Hgb | 11.2 (L)Comment: Testing | 13.2 - 17.0 | EXTERNAL | | | | performed at [facility], [address] | g/dL | LAB | | | | [address], | | | | | | [place] [address] | | | | + + + + + + | Hematocrit, | 33.6 (L)Comment: Testing | 39.0 - 50.0 % | EXTERNAL | | | POC | performed at [facility], [address] | | LAB | | | | [address], | | | | | | [place] [address] | | | | + + + + + + | MCV | 85.9Comment: Testing | 80.0 - 100.0 fl | EXTERNAL | | | | performed at [facility], [address] | | LAB | | | | [address], | | | | | | [place] [address] | | | | + + + + + + | MCH | 28.7Comment: Testing | 27.0 - 34.0 pg | EXTERNAL | | | | performed at [facility], [address] | | LAB | | | | [address], | | | | | | [place] [address] | | | | + + + + + + | MCHC | 33.4Comment: Testing | 32.0 - 35.5 | EXTERNAL | | | | performed at [facility], [address] | g/dL | LAB | | | | [address], | | | | | | [place] [address] | | | | + + + + + + | RDW-CV | 41.1Comment: Testing | 37 - 53 fl | EXTERNAL | | | | performed at [facility], [address] | | LAB | | | | [address], | | | | | | [place] [address] | | | | + + + + + + | Platelet | 341Comment: Testing | 150 - 400 K/uL | EXTERNAL | | | Count | performed at [facility], [address] | | LAB | | | Plasma | [address], | | | | | | [place] [address] | | | | + + + + + + | MPV | 7.6Comment: Testing | fl | EXTERNAL | | | | performed at [facility], [address] | | LAB | | | | [address], | | | | | | [place] [address] | | | | + + + + + + | Differentia | AUTOMATEDComment: | | EXTERNAL | | | l Type | Testing performed at | | LAB | | | | [facility], [address] | | | | | | [place] | | | | | | [address] | | | | + + + + + + | % Segmented | 76.22Comment: Testing | % | EXTERNAL | | | | performed at [facility], [address] | | LAB | | | Neutrophils | [address], | | | | | | [place] [address] | | | | + + + + + + | % | 12.04Comment: Testing | % | EXTERNAL | | | Lymphocytes | performed at [facility], [address] | | LAB | | | | [address], | | | | | | [place] [address] | | | | + + + + + + | % Monocytes | 6.15Comment: Testing | % | EXTERNAL | | | | performed at [facility], [address] | | LAB | | | [address], | | | | | | [place] [address] | | | | + + + + + + | % | 4.73Comment: Testing | % | EXTERNAL | | | Eosinophils | performed at [facility], [address] | | LAB | | | | [address], | | | | | | [place] [address] | | | | + + + + + + | % Basophils | 0.86Comment: Testing | % | EXTERNAL | | | | performed at [facility], [address] | | LAB | | | | [address], | | | | | | [place] [address] | | | | + + + + + + | Absolute | 8.38 (H)Comment: Testing | 1.90 - 7.40 | EXTERNAL | | | Segmented | performed at [facility], [address] | K/uL | LAB | | | Neutrophils | [address], | | | | | | [place] [address] | | | | + + + + + + | Absolute | 1.32Comment: Testing | 1.00 - 3.90 | EXTERNAL | | | Lymphocytes | performed at [facility], [address] | K/uL | LAB | | | | [address], | | | | | | [place] [address] | | | | + + + + + + | Absolute | 0.68Comment: Testing | 0.00 - 0.80 | EXTERNAL | | | Monocytes | performed at [facility], [address] | K/uL | LAB | | | | [address], | | | | | | [place] [address] | | | | + + + + + + | Absolute | 0.52 (H)Comment: Testing | 0.00 - 0.50 | EXTERNAL | | | Eosinophils | performed at [facility], [address] | K/uL | LAB | | | | [address], | | | | | | [place] [address] | | | | + + + + + + | Absolute | 0.10Comment: Testing | 0.00 - 0.10 | EXTERNAL | | | Basophils | performed at [facility], [address] | K/uL | LAB | | | | [address], | | | | | | [place] [address] | | | | + + + [...] | | | | [place] [address] | | | | + + + + + + | K | 3.8Comment: Testing | 3.5 - 4.9 | EXTERNAL | | | | performed at [facility], [address] | mmol/L | LAB | | | | [address], | | | | | | [place] [address] | | | | + + + + + + | Cl | 105Comment: Testing | 99 - 109 mmol/L | EXTERNAL | | | | performed at [facility], [address] | | LAB | | | | [address], | | | | | | [place] [address] | | | | + + + + + + | CO2 | 25Comment: Testing | 23 - 32 mmol/L | EXTERNAL | | | | performed at [facility], [address] | | LAB | | | | [address], | | | | | | [place] [address] | | | | + + + + + + | Anion Gap | 12Comment: Testing | 5 - 20 mmol/L | EXTERNAL | | | | performed at [facility], [address] | | LAB | | | | [address], | | | | | | [place] [address] | | | | + + + + + + | Glucose, | 236 (H)Comment: Testing | 65 - 99 mg/dL | EXTERNAL | | | Fasting | performed at [facility], [address] | | LAB | | | | [address], | | | | | | [place] [address] | | | | + + + + + + | BUN | 6 (L)Comment: Testing | 8 - 25 mg/dL | EXTERNAL | | | | performed at [facility], [address] | | LAB | | | | [address], | | | | | | [place] [address] | | | | + + + + + + | Creatinine | 0.9Comment: Testing | 0.70 - 1.30 | EXTERNAL | | | | performed at [facility], [address] | mg/dL | LAB | | | | [address], | | | | | | [place] [address] | | | | + + + + + + | BUN/Creatin | 7Comment: Testing | | EXTERNAL | | | ine Ratio | performed at [facility], [address] | | LAB | | | | [address], | | | | | | [place] [address] | | | | + + + + + + | Calcium | 8.3 (L)Comment: Testing | 8.5 - 10.5 | EXTERNAL | | | | performed at [facility], [address] | mg/dL | LAB | | | | [address], | | | | | | [place] [address] | | | | + + + [...] Man, | | | | | | [place] [address] | | | | + + + [...] | LAB | | | | [address];[place] | | | | | | [address] | | | | + + + [...] [place] | | | | | | [address] | | | | + + + [...] | LAB | | | | [address];[place], [place] | | | | | | [address] | | | | + + + [...] [place] | | | | | | [address] | | | | + + + [...] | LAB | | | | [address];[place] | | | | | | [address] | | | | + + + [...] [place] | | | | | | [address] | | | | + + + + + + | RED CELL | 4.13 (L)Comment: Testing | 4.20 - 5.70 | EXTERNAL | | | COUNT | performed at [facility], [address] | M/uL | LAB | | | | [address], | | | | | | [place] [address] | | | | + + + + + + | Hgb | 11.7 (L)Comment: Testing | 13.2 - 17.0 | EXTERNAL | | | | performed at [facility], [address] | g/dL | LAB | | | | [address], | | | | | | [place] [address] | | | | + + + + + + | Hematocrit, | 34.8 (L)Comment: Testing | 39.0 - 50.0 % | EXTERNAL | | | POC | performed at [facility], [address] | | LAB | | | | [address], | | | | | | [place] [address] | | | | + + + + + + | MCV | 84.2Comment: Testing | 80.0 - 100.0 fl | EXTERNAL | | | | performed at [facility], [address] | | LAB | | | | [address], | | | | | | [place] [address] | | | | + + + + + + | MCH | 28.2Comment: Testing | 27.0 - 34.0 pg | EXTERNAL | | | | performed at [facility], [address] | | LAB | | | | [address], | | | | | | [place] [address] | | | | + + + + + + | MCHC | 33.5Comment: Testing | 32.0 - 35.5 | EXTERNAL | | | | performed at [facility], [address] | g/dL | LAB | | | | [address], | | | | | | [place] [address] | | | | + + + + + + | RDW-CV | 42.0Comment: Testing | 37 - 53 fl | EXTERNAL | | | | performed at [facility], [address] | | LAB | | | | [address], | | | | | | [place] [address] | | | | + + + + + + | Platelet | 329Comment: Testing | 150 - 400 K/uL | EXTERNAL | | | Count | performed at [facility], [address] | | LAB | | | Plasma | [address], | | | | | | [place] [address] | | | | + + + + + + | MPV | 7.9Comment: Testing | fl | EXTERNAL | | | | performed at [facility], [address] | | LAB | | | | [address], | | | | | | [place] [address] | | | | + + + + + + | Differentia | AUTOMATEDComment: | | EXTERNAL | | | l Type | Testing performed at | | LAB | | | | [facility], [address] | | | | | | [place] | | | | | | [address] | | | | + + + + + + | % Segmented | 83.29Comment: Testing | % | EXTERNAL | | | | performed at [facility], [address] | | LAB | | | Neutrophils | [address], | | | | | | [place] [address] | | | | + + + + + + | % | 8.71Comment: Testing | % | EXTERNAL | | | Lymphocytes | performed at [facility], [address] | | LAB | | | | [address], | | | | | | [place] [address] | | | | + + + + + + | % Monocytes | 5.08Comment: Testing | % | EXTERNAL | | | | performed at [facility], [address] | | LAB | | | | [address], | | | | | | [place] [address] | | | | + + + + + + | % | 2.32Comment: Testing | % | EXTERNAL | | | Eosinophils | performed at [facility], [address] | | LAB | | | | [address], | | | | | | [place] [address] | | | | + + + + + + | % Basophils | 0.60Comment: Testing | % | EXTERNAL | | | | performed at [facility], [address] | | LAB | | | | [address], | | | | | | [place] [address] | | | | + + + + + + | Absolute | 12.15 (H)Comment: | 1.90 - 7.40 | EXTERNAL | | | Segmented | Testing performed at | K/uL | LAB | | | Neutrophils | [facility], [address] | | | | | | [place] | | | | | | [address] | | | | + + + + + + | Absolute | 1.27Comment: Testing | 1.00 - 3.90 | EXTERNAL | | | Lymphocytes | performed at [facility], [address] | K/uL | LAB | | | | [address], | | | | | | [place] [address] | | | | + + + + + + | Absolute | 0.74Comment: Testing | 0.00 - 0.80 | EXTERNAL | | | Monocytes | performed at [facility], [address] | K/uL | LAB | | | | [address], | | | | | | [place] [address] | | | | + + + + + + | Absolute | 0.34Comment: Testing | 0.00 - 0.50 | EXTERNAL | | | Eosinophils | performed at [facility], [address] | K/uL | LAB | | | [address], | | | | | | [place] [address] | | | | + + + + + + | Absolute | 0.09Comment: Testing | 0.00 - 0.10 | EXTERNAL | | | Basophils | performed at [facility], [address] | K/uL | LAB | | | | [address], | | | | | | [place] [address] | | | | + + + [...] | | | | [place] [address] | | | | + + + + + + | K | 3.8Comment: Testing | 3.5 - 4.9 | EXTERNAL | | | | performed at [facility], [address] | mmol/L | LAB | | | | [address], | | | | | | [place] [address] | | | | + + + + + + | Cl | 104Comment: Testing | 99 - 109 mmol/L | EXTERNAL | | | | performed at [facility], [address] | | LAB | | | | [address], | | | | | | [place] [address] | | | | + + + + + + | CO2 | 27Comment: Testing | 23 - 32 mmol/L | EXTERNAL | | | | performed at [facility], [address] | | LAB | | | | [address], | | | | | | [place] [address] | | | | + + + + + + | Anion Gap | 11Comment: Testing | 5 - 20 mmol/L | EXTERNAL | | | | performed at [facility], [address] | | LAB | | | | [address], | | | | | | [place] [address] | | | | + + + + + + | Glucose, | 196 (H)Comment: Testing | 65 - 99 mg/dL | EXTERNAL | | | Fasting | performed at [facility], [address] | | LAB | | | | [address], | | | | | | [place] [address] | | | | + + + + + + | BUN | 5 (L)Comment: Testing | 8 - 25 mg/dL | EXTERNAL | | | | performed at [facility], [address] | | LAB | | | | [address], | | | | | | [place] [address] | | | | + + + + + + | Creatinine | 0.9Comment: Testing | 0.70 - 1.30 | EXTERNAL | | | | performed at [facility], [address] | mg/dL | LAB | | | | [address], | | | | | | [place] [address] | | | | + + + + + + | BUN/Creatin | 6Comment: Testing | | EXTERNAL | | | ine Ratio | performed at [facility], [address] | | LAB | | | | [address], | | | | | | [place] [address] | | | | + + + + + + | Calcium | 8.4 (L)Comment: Testing | 8.5 - 10.5 | EXTERNAL | | | | performed at [facility], [address] | mg/dL | LAB | | | | [address], | | | | | | [place] [address] | | | | + + + [...] | | | | | at [facility], [address] | | | | | | [address], | | | | | | [place] [address] | | | | + + + [...] | LAB | | | | [address];[place] | | | | | | [address] | | | | + + + [...] | LAB | | | | [address];[place] | | | | | | [address] | | | | + + + [...] | | performed at [facility] | | | | | | [facility];[place], [place] | | | | | | [address] | | | | + + + [...] | LAB | | | | [address];[place] | | | | | | [address] | | | | + + + [...] | LAB | | | | [address];[place], [place] | | | | | | [address] | | | | + + + [...] | Procedure Note | + + | eLonard, Rad Conversion - 05/16/2019 2:48 AM PDT [...] | | | | [facility], [address] [facility] | | | | | | [place] | | | | | | [address] | | | | + + + + + + | RED CELL | 4.31Comment: Testing | 4.20 - 5.70 | EXTERNAL | | | COUNT | performed at [facility], [address] | M/uL | LAB | | | | [address], | | | | | | [place] [address] | | | | + + + + + + | Hgb | 12.3 (L)Comment: Testing | 13.2 - 17.0 | EXTERNAL | | | | performed at [facility], [address] | g/dL | LAB | | | | [address], | | | | | | [place] [address] | | | | + + + + + + | Hematocrit, | 36.4 (L)Comment: Testing | 39.0 - 50.0 % | EXTERNAL | | | POC | performed at [facility], [address] | | LAB | | | | [address], | | | | | | [place] [address] | | | | + + + + + + | MCV | 84.5Comment: Testing | 80.0 - 100.0 fl | EXTERNAL | | | | performed at [facility], [address] | | LAB | | | [address], | | | | | | [place] [address] | | | | + + + + + + | MCH | 28.5Comment: Testing | 27.0 - 34.0 pg | EXTERNAL | | | | performed at [facility], [address] | | LAB | | | | [address], | | | | | | [place] [address] | | | | + + + + + + | MCHC | 33.8Comment: Testing | 32.0 - 35.5 | EXTERNAL | | | | performed at [facility], [address] | g/dL | LAB | | | | [address], | | | | | | [place] [address] | | | | + + + + + + | RDW-CV | 42.9Comment: Testing | 37 - 53 fl | EXTERNAL | | | | performed at [facility], [address] | | LAB | | | | [address], | | | | | | [place] [address] | | | | + + + + + + | Platelet | 307Comment: Testing | 150 - 400 K/uL | EXTERNAL | | | Count | performed at [facility], [address] | | LAB | | | Plasma | [address], | | | | | | [place] [address] | | | | + + + + + + | MPV | 8.0Comment: Testing | fl | EXTERNAL | | | | performed at [facility], [address] | | LAB | | | | [address], | | | | | | [place] [address] | | | | + + + + + + | Differentia | AUTOMATEDComment: | | EXTERNAL | | | l Type | Testing performed at | | LAB | | | | [facility], [address] | | | | | | [place] | | | | | | [address] | | | | + + + + + + | % Segmented | 85.00Comment: Testing | % | EXTERNAL | | | | performed at [facility], [address] | | LAB | | | Neutrophils | [address], | | | | | | [place] [address] | | | | + + + + + + | % | 7.15Comment: Testing | % | EXTERNAL | | | Lymphocytes | performed at [facility], [address] | | LAB | | | | [address], | | | | | | [place] [address] | | | | + + + + + + | % Monocytes | 5.39Comment: Testing | % | EXTERNAL | | | | performed at [facility], [address] | | LAB | | | | [address], | | | | | | [place] [address] | | | | + + + + + + | % | 1.86Comment: Testing | % | EXTERNAL | | | Eosinophils | performed at [facility], [address] | | LAB | | | | [address], | | | | | | [place] [address] | | | | + + + + + + | % Basophils | 0.60Comment: Testing | % | EXTERNAL | | | | performed at [facility], [address] | | LAB | | | | [address], | | | | | | [place] [address] | | | | + + + + + + | Absolute | 13.51 (H)Comment: | 1.90 - 7.40 | EXTERNAL | | | Segmented | Testing performed at | K/uL | LAB | | | Neutrophils | [facility], [address] | | | | | | [place] | | | | | | [address] | | | | + + + + + + | Absolute | 1.14Comment: Testing | 1.00 - 3.90 | EXTERNAL | | | Lymphocytes | performed at [facility], [address] | K/uL | LAB | | | | [address], | | | | | | [place] [address] | | | | + + + + + + | Absolute | 0.86 (H)Comment: Testing | 0.00 - 0.80 | EXTERNAL | | | Monocytes | performed at [facility], [address] | K/uL | LAB | | | | [address], | | | | | | [place] [address] | | | | + + + + + + | Absolute | 0.30Comment: Testing | 0.00 - 0.50 | EXTERNAL | | | Eosinophils | performed at [facility], [address] | K/uL | LAB | | | | [address], | | | | | | [place] [address] | | | | + + + + + + | Absolute | 0.10Comment: Testing | 0.00 - 0.10 | EXTERNAL | | | Basophils | performed at [facility], [address] | K/uL | LAB | | | | [address], | | | | | | [place] [address] | | | | + + + [...] | | | | performed at [facility], [address] | mmol/L | LAB | | | | [address], | | | | | | [place] [address] | | | | + + + + + + | K | 4.0Comment: Testing | 3.5 - 4.9 | EXTERNAL | | | | performed at [facility], [address] | mmol/L | LAB | | | | [address], | | | | | | [place] [address] | | | | + + + + + + | Cl | 103Comment: Testing | 99 - 109 mmol/L | EXTERNAL | | | | performed at [facility], [address] | | LAB | | | | [address], | | | | | | [place] [address] | | | | + + + + + + | CO2 | 24Comment: Testing | 23 - 32 mmol/L | EXTERNAL | | | | performed at [facility], [address] | | LAB | | | | [address], | | | | | | [place] [address] | | | | + + + + + + | Anion Gap | 14Comment: Testing | 5 - 20 mmol/L | EXTERNAL | | | | performed at [facility], [address] | | LAB | | | | [address], | | | | | | [place] [address] | | | | + + + + + + | Glucose, | 207 (H)Comment: Testing | 65 - 99 mg/dL | EXTERNAL | | | Fasting | performed at [facility], [address] | | LAB | | | | [address], | | | | | | [place] [address] | | | | + + + + + + | BUN | 7 (L)Comment: Testing | 8 - 25 mg/dL | EXTERNAL | | | | performed at [facility], [address] | | LAB | | | | [address], | | | | | | [place] [address] | | | | + + + + + + | Creatinine | 0.9Comment: Testing | 0.70 - 1.30 | EXTERNAL | | | | performed at [facility], [address] | mg/dL | LAB | | | | [address], | | | | | | [place] [address] | | | | + + + + + + | BUN/Creatin | 8Comment: Testing | | EXTERNAL | | | ine Ratio | performed at [facility], [address] | | LAB | | | | [employer] [address], | | | | | | [place] [address] | | | | + + + + + + | Calcium | 8.2 (L)Comment: Testing | 8.5 - 10.5 | EXTERNAL | | | | performed at [facility], [address] | mg/dL | LAB | | | | [address], | | | | | | [place] [address] | | | | + + + [...] W | | | | | | [address], | | | | | | [place] [address] | | | | + + + [...] | LAB | | | | [address];[place], [place] | | | | | | [address] | | | | + + + [...] with a red-brown discoloration of the bone. Ssrs Developer | | | sections are submitted in cassette B1 and placed into decal prior to | | | processing. [facility] MICROSCOPIC EXAMINATION: A-B. Histologic | | | sections of all submitted blocks are examined by light microscopy. | | | These findings, together with the gross examination, support the | | | pathologic diagnosis. PERFORMING LABORATORY: Professional | | | interpretation and technical preparation was performed by [facility] | | | [facility], [address], | | | [place] [address] ([employer] Product Manager: Rafat Lorenzo M.D.; [facility]#: | | | [id number]). Diagnostician: Isi Gore MD Pathologist | | [...] | LAB | | | | [address];[place] | | | | | | [address] | | | | + + + [...] | LAB | | | | [address];[place], [place] | | | | | | [address] | | | | + + + [...] [place] | | | | | | [address] | | | | + + [...] [place] | | | | | | [address] | | | | + + + + + + | PCO2 ART | 32 (L)Comment: Testing | 35 - 45 mmHg | EXTERNAL | | | | performed at [facility];[address] | | LAB | | | | [address];[place] | | | | | | [address] | | | | + + + + + + | PO2 ART | 81Comment: Testing | 80 - 105 mmHg | EXTERNAL | | | | performed at [facility];[address] | | LAB | | | | [address];[place] | | | | | | [address] | | | | + + + + + + | Lactate, | <0.30 (L)Comment: | 0.36 - 1.25 | EXTERNAL | | | Arterial | Testing performed at | mmol/L | LAB | | | | [address] | | | [address];[place] [address] | | | | + + + + + + | HCO3 ART | 19 (L)Comment: Testing | 22 - 26 mmol/L | EXTERNAL | | | | performed at [facility];[address] | | LAB | | | | [address];[place] | | | | | | [address] | | | | + + + + + + | POC | 20 (L)Comment: Testing | 23 - 27 mEq/L | EXTERNAL | | | APPEARANCE | performed at [facility];[address] | | LAB | | | UA | [address];[place] | | | | | | [address] | | | | + + + + + + | Base | 6 (H)Comment: Testing | 0.0 - 2.0 | EXTERNAL | | | deficit | performed at [facility];[address] | mmol/L | LAB | | | | [address];[place] | | | | | | [address] | | | | + + + [...] [place] | | | | | | [address] | | | | + + + [...] | LAB | | | | [address];[place], [place] | | | | | | [address] | | | | + + + [...] | LAB | | | | [address];[place], [place] | | | | | | [address] | | | | + + + [...] | | | | performed at [facility], [address] | | LAB | | | | [address], | | | | | | [place] [address] | | | | + + + + + + | Clarity | CLEARComment: Testing | | EXTERNAL | | | | performed at [facility], [address] | | LAB | | | | [address], | | | | | | [place] [address] | | | | + + + + + + | Specific | 1.022Comment: Testing | 1.002 - 1.030 | EXTERNAL | | | [place] | performed at [facility], [address] | | LAB | | | | [address], | | | | | | [place] [address] | | | | + + + + + + | Leukocyte | NEGATIVEComment: | | EXTERNAL | | | Esterase, | Testing performed at | | LAB | | | Urine | [facility], [address] | | | | | | [place] | | | | | | [address] | | | | + + + + + + | Nitrite, | NEGATIVEComment: Testing | | EXTERNAL | | | Urine | performed at [facility], [address] | | LAB | | | | [address], | | | | | | [place] [address] | | | | + + + + + + | Urobilinoge | NORMALComment: Testing | mg/dL | EXTERNAL | | | n, Urine | performed at [facility], [address] | | LAB | | | | [address], | | | | | | [place] [address] | | | | + + + + + + | Protein, | NEGATIVEComment: Testing | mg/dL | EXTERNAL | | | Urine | performed at [facility], [address] | | LAB | | | | [address], | | | | | | [place] [address] | | | | + + + + + + | pH, Urine | 6.0Comment: Testing | 5.0 - 8.0 | EXTERNAL | | | | performed at [facility], [address] | | LAB | | | | [address], | | | | | | [place] [address] | | | | + + + + + + | Blood, | NEGATIVEComment: Testing | | EXTERNAL | | | Urine | performed at [facility], [address] | | LAB | | | | [address], | | | | | | [place] [address] | | | | + + + + + + | Ketones | NEGATIVEComment: Testing | mg/dL | EXTERNAL | | | | performed at [facility], [address] | | LAB | | | | [address], | | | | | | [place] [address] | | | | + + + + + + | Bilirubin, | NEGATIVEComment: Testing | | EXTERNAL | | | Urine | performed at [facility], [address] | | LAB | | | | [address], | | | | | | [place] [address] | | | | + + + + + + | Glucose, | >500 (A)Comment: Testing | mg/dL | EXTERNAL | | | Urine | performed at [facility], [address] | | LAB | | | | [address], | | | | | | [place] [address] | | | | + + + [...] | | | | Blvd;[place] [address] | | | | + + + + + + | PCO2 ART | 56 (H)Comment: Testing | 35 - 45 mmHg | EXTERNAL | | | | performed at [facility];[address] | | LAB | | | | [address];[place] | | | | | | [address] | | | | + + + + + + | PO2 ART | 74 (L)Comment: Testing | 80 - 105 mmHg | EXTERNAL | | | | performed at [facility];[address] | | LAB | | | | [address];[place] | | | | | | [address] | | | | + + + + + + | Lactate, | 7.11 (H)Comment: Testing | 0.36 - 1.25 | EXTERNAL | | | Arterial | performed at [facility];[address] | mmol/L | LAB | | | | [address];[place] | | | | | | [address] | | | | + + + + + + | HCO3 ART | 9 (L)Comment: Testing | 22 - 26 mmol/L | EXTERNAL | | | | performed at [facility];[address] | | LAB | | | | [address];[place] | | | | | | [address] | | | | + + + + + + | POC | 11 (L)Comment: Testing | 23 - 27 mEq/L | EXTERNAL | | | APPEARANCE | performed at [facility];[address] | | LAB | | | UA | [address];[place] | | | | | | [address] | | | | + + + + + + | Base | 25 (H)Comment: Testing | 0.0 - 2.0 | EXTERNAL | | | deficit | performed at [facility];[address] | mmol/L | LAB | | | | [address];[place] | | | | | | [address] | | | | + + + + + + | O2 SAT ART | 77 (L)Comment: Testing | 95 - 98 % | EXTERNAL | | | | performed at [facility];[address] | | LAB | | | | [address];[place] | | | | | | [address] | | | | + + + + + + | FiO2, POC | 100Comment: Testing | % | EXTERNAL | | | | performed at [facility];[address] | | LAB | | | | [address];[place] | | | | | | [address] | | | | + + + [...] [place] | | | | | | [address] | | | | + + + + + + | RED CELL | 4.04 (L)Comment: Testing | 4.20 - 5.70 | EXTERNAL | | | COUNT | performed at [facility], [address] | M/uL | LAB | | | | [address], | | | | | | [place] [address] | | | | + + + + + + | Hgb | 11.4 (L)Comment: Testing | 13.2 - 17.0 | EXTERNAL | | | | performed at [facility], [address] | g/dL | LAB | | | | [address], | | | | | | [place] [address] | | | | + + + + + + | Hematocrit, | 35.1 (L)Comment: Testing | 39.0 - 50.0 % | EXTERNAL | | | POC | performed at [facility], [address] | | LAB | | | | [address], | | | | | | [place] [address] | | | | + + + + + + | MCV | 86.7Comment: Testing | 80.0 - 100.0 fl | EXTERNAL | | | | performed at [facility], [address] | | LAB | | | | [place], | | | | | | [place] [address] | | | | + + + [...] | | | | [place] [address] | | | | + + + + + + | RDW-CV | 42.0Comment: Testing | 37 - 53 fl | EXTERNAL | | | | performed at [facility], [address] | | LAB | | | | [address], | | | | | | [place] [address] | | | | + + + + + + | Platelet | 262Comment: Testing | 150 - 400 K/uL | EXTERNAL | | | Count | performed at [facility], [address] | | LAB | | | Plasma | [address], | | | | | | [place] [address] | | | | + + + + + + | MPV | 8.4Comment: Testing | fl | EXTERNAL | | | | performed at [facility], [address] | | LAB | | | | [address], | | | | | | [place] [address] | | | | + + + + + + | Differentia | AUTOMATEDComment: | | EXTERNAL | | | l Type | Testing performed at | | LAB | | | | [facility], [address] | | | | | | [place] | | | | | | [address] | | | | + + + + + + | % Segmented | 82.60Comment: Testing | % | EXTERNAL | | | | performed at [facility], [address] | | LAB | | | Neutrophils | [address], | | | | | | [place] [address] | | | | + + + + + + | % | 7.47Comment: Testing | % | EXTERNAL | | | Lymphocytes | performed at [facility], [address] | | LAB | | | | [address], | | | | | | [place] [address] | | | | + + + + + + | % Monocytes | 6.29Comment: Testing | % | EXTERNAL | | | | performed at [facility], [address] | | LAB | | | | [address], | | | | | | [place] [address] | | | | + + + + + + | % | 3.29Comment: Testing | % | EXTERNAL | | | Eosinophils | performed at [facility], [address] | | LAB | | | | [address], | | | | | | [place] [address] | | | | + + + + + + | % Basophils | 0.35Comment: Testing | % | EXTERNAL | | | | performed at [facility], [address] | | LAB | | | | [address], | | | | | | [place] [address] | | | | + + + + + + | Absolute | 13.94 (H)Comment: | 1.90 - 7.40 | EXTERNAL | | | Segmented | Testing performed at | K/uL | LAB | | | Neutrophils | [facility], [address] | | | | | | [place] | | | | | | [address] | | | | + + + + + + | Absolute | 1.26Comment: Testing | 1.00 - 3.90 | EXTERNAL | | | Lymphocytes | performed at [facility], [address] | K/uL | LAB | | | | [address], | | | | | | [place] [address] | | | | + + + + + + | Absolute | 1.06 (H)Comment: Testing | 0.00 - 0.80 | EXTERNAL | | | Monocytes | performed at [facility], [address] | K/uL | LAB | | | | [address], | | | | | | [place] [address] | | | | + + + + + + | Absolute | 0.56 (H)Comment: Testing | 0.00 - 0.50 | EXTERNAL | | | Eosinophils | performed at [facility], [address] | [address] | LAB | | | | [address], | | | | | | [place] [address] | | | | + + + + + + | Absolute | 0.06Comment: Testing | 0.00 - 0.10 | EXTERNAL | | | Basophils | performed at [facility], [address] | K/uL | LAB | | | | [address], | | | | | | [place] [address] | | | | + + + [...] | | | | performed at [facility], [address] | | LAB | | | | [address], | | | | | | [place] [address] | | | | + + + [...] | | | | performed at [facility], [address] | | LAB | | | | [address], | | | | | | [place] [address] | | | | + + + [...] | EXTERNAL | | | A1c | [place] [employer] | | LAB | | | [...] | | | | performed at [facility], [address] | | | | | | [address] [facility], | | | | | | [place] [address] | | | | + + + [...] | | | | performed at [facility], [address] | | | | | | [facility], | | | | | | [place] [address] | | | | + + + [...] | | | | [place] [address] | | | | + + + + + + | K | 4.6Comment: Testing | 3.5 - 4.9 | EXTERNAL | | | | performed at [facility], [address] | mmol/L | LAB | | | | [address], | | | | | | [place] [address] | | | | + + + + + + | Cl | 103Comment: Testing | 99 - 109 mmol/L | EXTERNAL | | | | performed at [facility], [address] | | LAB | | | | [address], | | | | | | [place] [address] | | | | + + + + + + | CO2 | 22 (L)Comment: Testing | 23 - 32 mmol/L | EXTERNAL | | | | performed at [facility], [address] | | LAB | | | | [address], | | | | | | [place] [address] | | | | + + + + + + | Anion Gap | 14Comment: Testing | 5 - 20 mmol/L | EXTERNAL | | | | performed at [facility], [address] | | LAB | | | | [address], | | | | | | [place] [address] | | | | + + + + + + | Glucose, | 392 (H)Comment: Testing | 65 - 99 mg/dL | EXTERNAL | | | Fasting | performed at [facility], [address] | | LAB | | | | [address], | | | | | | [place] [address] | | | | + + + + + + | BUN | 12Comment: Testing | 8 - 25 mg/dL | EXTERNAL | | | | performed at [facility], [address] | | LAB | | | | [address], | | | | | | [place] [address] | | | | + + + + + + | Creatinine | 1.0Comment: Testing | 0.70 - 1.30 | EXTERNAL | | | | performed at [facility], [address] | mg/dL | LAB | | | | [address], | | | | | | [place] [address] | | | | + + + + + + | BUN/Creatin | 12Comment: Testing | | EXTERNAL | | | ine Ratio | performed at [facility], [address] | | LAB | | | | [address], | | | | | | [place] [address] | | | | + + + + + + | Calcium | 7.6 (L)Comment: Testing | 8.5 - 10.5 | EXTERNAL | | | | performed at [facility], [address] | mg/dL | LAB | | | | [address], | | | | | | [place] [address] | | | | + + + + + + | Protein, | 6.4Comment: Testing | 6.3 - 8.2 g/dL | EXTERNAL | | | Total | performed at [facility], [address] | | LAB | | | | [address], | | | | | | [place] [address] | | | | + + + + + + | Albumin | 2.2 (L)Comment: Testing | 3.6 - 5.0 g/dL | EXTERNAL | | | | performed at [facility], [address] | | LAB | | | | [address], | | | | | | [place] [address] | | | | + + + + + + | Globulin | 4.2Comment: Testing | 1.3 - 4.9 g/dL | EXTERNAL | | | | performed at [facility], [address] | | LAB | | | | [address], | | | | | | [place] [address] | | | | + + + + + + | A/G Ratio | 0.5 (L)Comment: Testing | 1.0 - 2.4 | EXTERNAL | | | | performed at [facility], [address] | | LAB | | | | [employer], | | | | | | [place] [address] | | | | + + + + + + | Bilirubin | 0.6Comment: Testing | 0.1 - 1.5 mg/dL | EXTERNAL | | | Total | performed at [facility], [address] | | LAB | | | | [address], | | | | | | [place] [address] | | | | + + + + + + | ALP, | 182 (H)Comment: Testing | 35 - 115 U/L | EXTERNAL | | | External | performed at [facility], [address] | | LAB | | | | [address], | | | | | | [place] [address] | | | | + + + + + + | AST | 9 (L)Comment: Testing | 10 - 45 U/L | EXTERNAL | | | | performed at [facility], [address] | | LAB | | | | [address], | | | | | | [place] [address] | | | | + + + + + + | ALT | 16Comment: Testing | 10 - 65 U/L | EXTERNAL | | | | performed at [facility], [address] | | LAB | | | | [address], | | | | | | [place] [address] | | | | + + + [...] | | | | | at [facility], [address] | | | | | | [address], | | | | | | [place] [address] | | | | + + + [...] | LAB | | | | [address];[place], [place] | | | | | | [address] | | | | + + + [...] | Testing performed at [facility];[address] [place] [address];[place] [address] MRSA PCR | | | POSITIVE for MRSA by PCRAbnormal | | | Testing performed at [address];[place] [address] | | + + + + +---------+ [...] | LAB | | | | [address];[place] | | | | | | [address] [...] [place] | | | | | | [address] | | | | + + + + + + | K | 4.0Comment: Testing | 3.5 - 4.9 | EXTERNAL | | | | performed at [facility];[address] | mmol/L | LAB | | | | [address];[place] | | | | | | [address] | | | | + + + + + + | Cl | 104Comment: Testing | 99 - 109 mmol/L | EXTERNAL | | | | performed at [facility];[address] | | LAB | | | | [address];[place] | | | | | | [address] | | | | + + + + + + | CO2 | 21 (L)Comment: Testing | 23 - 32 mmol/L | EXTERNAL | | | | performed at [facility];[address] | | LAB | | | | [address];[place] | | | | | | [address] | | | | + + + + + + | Anion Gap | 13Comment: Testing | 5 - 20 mmol/L | EXTERNAL | | | | performed at [facility];[address] | | LAB | | | | [address];[place] | | | | | | [address] | | | | + + + + + + | Glucose, | 254 (H)Comment: Testing | 65 - 99 mg/dL | EXTERNAL | | | Fasting | performed at [facility];[address] | | LAB | | | | [address];[place] | | | | | | [address] | | | | + + + + + + | BUN | 12Comment: Testing | 8 - 25 mg/dL | EXTERNAL | | | | performed at [facility];[address] | | LAB | | | | [address];[place] | | | | | | [address] | | | | + + + + + + | Creatinine | 0.95Comment: Testing | 0.70 - 1.30 | EXTERNAL | | | | performed at [facility];[address] | mg/dL | LAB | | | | [address];[place] | | | | | | [address] | | | | + + + + + + | BUN/Creatin | 13Comment: Testing | | EXTERNAL | | | ine Ratio | performed at [facility];[address] | | LAB | | | | [address];[place] | | | | | | [address] | | | | + + + + + + | Calcium | 6.9 (L)Comment: Testing | 8.5 - 10.5 | EXTERNAL | | | | performed at [facility];[address] | mg/dL | LAB | | | | [address];[place] | | | | | | [address] | | | | + + + + + + | Protein, | 6.3Comment: Testing | 6.3 - 8.2 g/dL | EXTERNAL | | | Total | performed at [facility];[address] | | LAB | | | | [address];[place] | | | | | | [address] | | | | + + + + + + | Albumin | 2.1 (L)Comment: Testing | 3.6 - 5.0 g/dL | EXTERNAL | | | | performed at [facility];[address] | | LAB | | | | [address];[place] | | | | | | [address] | | | | + + + + + + | Globulin | 4.2Comment: Testing | 1.3 - 4.9 g/dL | EXTERNAL | | | | performed at [facility];[address] | | LAB | | | | [address];[place] | | | | | | [address] | | | | + + + + + + | A/G Ratio | 0.5 (L)Comment: Testing | 1.0 - 2.4 | EXTERNAL | | | | performed at [facility];[address] | | LAB | | | | [address];[place] | | | | | | [address] | | | | + + + + + + | Bilirubin | 0.4Comment: Testing | 0.1 - 1.5 mg/dL | EXTERNAL | | | Total | performed at [facility];[address] | | LAB | | | | [address];[place] | | | | | | [address] | | | | + + + + + + | ALP, | 181 (H)Comment: Testing | 35 - 115 U/L | EXTERNAL | | | External | performed at [facility];[address] | | LAB | | | | [address];[place] | | | | | | [address] | | | | + + + + + + | AST | 10Comment: Testing | 10 - 45 U/L | EXTERNAL | | | | performed at [facility];[address] | | LAB | | | | [address];[place] | | | | | | [address] | | | | + + + + + + | ALT | 14Comment: Testing | 10 - 65 U/L | EXTERNAL | | | | performed at [facility];[address] | | LAB | | | | [address];[place] | | | | | | [address] | | | | + + + [...] [address] | | | | | | [address];[place] [address] | | | | + + + [...] 9:30AM Referring Provider Line: | | | [phone] ID: [id number] | | + + + [...] | | 2016 9:30AM Referring Provider Line: [phone] ID: [id number] | + + POC Glucose [...] | LAB | | | | [address];[place], [place] | | | | | | [address] | | | | + + + [...] | LAB | | | | [address];[place], [place] | | | | | | [address] | | | | + + + [...] | LAB | | | | [address];[place], [place] | | | | | | [address] | | | | + + + [...] | | performed at [facility] | | LAB | | | | [address];[place] | | | | | | [address] | | | | + + + [...] | | | | [address]vd;[place] [address] | | | | + + + + + + | RED CELL | 4.20Comment: Testing | 4.20 - 5.70 | EXTERNAL | | | COUNT | performed at [facility];[address] | M/uL | LAB | | | | [address];[place] | | | | | | [address] | | | | + + + + + + | Hgb | 12.4 (L)Comment: Testing | 13.2 - 17.0 | EXTERNAL | | | | performed at [facility];888 | g/dL | LAB | | | | [address];[place] | | | | | | [address] | | | | + + + + + + | Hematocrit, | 36.3 (L)Comment: Testing | 39.0 - 50.0 % | EXTERNAL | | | POC | performed at [facility];[address] | | LAB | | | | [address];[place] | | | | | | [address] | | | | + + + + + + | MCV | 86.5Comment: Testing | 80.0 - 100.0 fl | EXTERNAL | | | | performed at [facility];[address] | | LAB | | | | [address];[place] | | | | | | [address] | | | | + + + + + + | MCH | 29.4Comment: Testing | 27.0 - 34.0 pg | EXTERNAL | | | | performed at [facility];[address] | | LAB | | | | [address];[place] | | | | | | [address] | | | | + + + + + + | MCHC | 34.0Comment: Testing | 32.0 - 35.5 | EXTERNAL | | | | performed at [facility];888 | g/dL | LAB | | | | [address];[place] | | | | | | [address] | | | | + + + + + + | RDW-CV | 42.9Comment: Testing | 37 - 53 fl | EXTERNAL | | | | performed at [facility];[address] | | LAB | | | | [address];[place] | | | | | | [address] | | | | + + + + + + | Platelet | 258Comment: Testing | 150 - 400 K/uL | EXTERNAL | | | Count | performed at [facility];[address] | | LAB | | | Plasma | [address];[place] | | | | | | [address] | | | | + + + + + + | MPV | 8.3Comment: Testing | fl | EXTERNAL | | | | performed at [facility];[address] | | LAB | | | | [address];[place] | | | | | | [address] | | | | + + + + + + | Differentia | AUTOMATEDComment: | | EXTERNAL | | | l Type | Testing performed at | | LAB | | | | [facility];[address] | | [address];[place] [address] | | | | + + + + + + | % Segmented | 87.43Comment: Testing | % | EXTERNAL | | | | performed at [facility];[address] | | LAB | | | Neutrophils | [address];[place] | | | | | | [address] | | | | + + + + + + | % | 5.56Comment: Testing | % | EXTERNAL | | | Lymphocytes | performed at [facility];[address] | | LAB | | | | [address];[place] | | | | | | [address] | | | | + + + + + + | % Monocytes | 4.36Comment: Testing | % | EXTERNAL | | | | performed at [facility];[address] | | LAB | | | | [address];[place] | | | | | | [address] | | | | + + + + + + | % | 1.84Comment: Testing | % | EXTERNAL | | | Eosinophils | performed at [facility];[address] | | LAB | | | | [address];[place] | | | | | | [address] | | | | + + + + + + | % Basophils | 0.81Comment: Testing | % | EXTERNAL | | | | performed at [facility];[address] | | LAB | | | | [address];[place] | | | | | | [address] | | | | + + + + + + | Absolute | 17.02 (H)Comment: | 1.90 - 7.40 | EXTERNAL | | | Segmented | Testing performed at | K/uL | LAB | | | Neutrophils | [facility];[address] | | | | | [address];[place] [address] | | | | + + + + + + | Absolute | 1.08Comment: Testing | 1.00 - 3.90 | EXTERNAL | | | Lymphocytes | performed at [facility];[address] | K/uL | LAB | | | | [address];[place] | | | | | | [address] | | | | + + + + + + | Absolute | 0.85 (H)Comment: Testing | 0.00 - 0.80 | EXTERNAL | | | Monocytes | performed at [facility];[address] | K/uL | LAB | | | | [address];[place] | | | | | | [address] | | | | + + + + + + | Absolute | 0.36Comment: Testing | 0.00 - 0.50 | EXTERNAL | | | Eosinophils | performed at [facility];[address] | K/uL | LAB | | | | [address];[place] | | | | | | [address] | | | | + + + + + + | Absolute | 0.16 (H)Comment: Testing | 0.00 - 0.10 | EXTERNAL | | | Basophils | performed at [facility];[address] | K/uL | LAB | | | | [address];[place] | | | | | | [address] | | | | + + + + + + | RBC | RBC AND PLT MORPHOLOGY | | EXTERNAL | | | Morphology | APPEAR NORMALComment: | | LAB | | | | Testing performed at | | | | | | [facility];[address];[place] [address] | | | | + + + + + + | Platelet | ADEQUATEComment: Testing | | EXTERNAL | | | Estimate | performed at [facility];[address] | | LAB | | | | [address];[place] | | | | | | [address] | | | | + + + + + + | Differentia | SLIDE SCANNED, AGREES | | EXTERNAL | | | l Comments | WITH AUTOMATED | | LAB | | | | RESULTS.Comment: Testing | | | | | | performed at [facility];[address] | | | | | | [address];[place], [place] | | | | | | [address] | | | | + + + [...] | | performed at [facility] | | LAB | | | | [address];[place], [place] | | | | | | [address] | | | | + + + [...] [place] | | | | | | [address] | | | | + + + + + + | K | 5.1 (H)Comment: MODERATE | 3.5 - 4.9 | EXTERNAL | | | | HEMOLYSISTesting | mmol/L | LAB | | | | performed at [facility];[address] | | | | | | [address];[place] | | | | | | [address] | | | | + + + + + + | Cl | 93 (L)Comment: Testing | 99 - 109 mmol/L | EXTERNAL | | | | performed at [facility];[address] | | LAB | | | | [address];[place] | | | | | | [address] | | | | + + + + + + | CO2 | 23Comment: Testing | 23 - 32 mmol/L | EXTERNAL | | | | performed at [facility];[address] | | LAB | | | | [address];[place] | | | | | | [address] | | | | + + + + + + | Anion Gap | 14Comment: Testing | 5 - 20 mmol/L | EXTERNAL | | | | performed at [facility];[address] | | LAB | | | | [address];[place] | | | | | | [address] | | | | + + + [...] [place] | | | | | | [address] | | | | + + + + + + | BUN | 13Comment: Testing | 8 - 25 mg/dL | EXTERNAL | | | | performed at [facility];[address] | | LAB | | | | [address];[place] | | | | | | [address] | | | | + + + + + + | Creatinine | 1.4 (H)Comment: Testing | 0.70 - 1.30 | EXTERNAL | | | | performed at [facility];[address] | mg/dL | LAB | | | | [address];[place] | | | | | | [address] | | | | + + + + + + | BUN/Creatin | 10Comment: Testing | | EXTERNAL | | | ine Ratio | performed at [facility];[address] | | LAB | | | | [address];[place] | | | | | | [address] | | | | + + + + + + | Calcium | 7.9 (L)Comment: Testing | 8.5 - 10.5 | EXTERNAL | | | | performed at [facility];888 | mg/dL | LAB | | | | [address];[place] | | | | | | [address] | | | | + + + + + + | Protein, | 7.7Comment: Testing | 6.3 - 8.2 g/dL | EXTERNAL | | | Total | performed at [facility];[address] | | LAB | | | | [address];[place] | | | | | | [address] | | | | + + + + + + | Albumin | 2.6 (L)Comment: Testing | 3.6 - 5.0 g/dL | EXTERNAL | | | | performed at [facility];[address] | | LAB | | | | [address];[place] | | | | | | [address] | | | | + + + + + + | Globulin | 5.1 (H)Comment: Testing | 1.3 - 4.9 g/dL | EXTERNAL | | | | performed at [facility];[address] | | LAB | | | | [address];[place] | | | | | | [address] | | | | + + + + + + | A/G Ratio | 0.5 (L)Comment: Testing | 1.0 - 2.4 | EXTERNAL | | | | performed at [facility];[address] | | LAB | | | | [address];[place] | | | | | | [address] | | | | + + + + + + | Bilirubin | 0.6Comment: Testing | 0.1 - 1.5 mg/dL | EXTERNAL | | | Total | performed at [facility];[address] | | LAB | | | | [address];[place] | | | | | | [address] | | | | + + + + + + | ALP, | 259 (H)Comment: Testing | 35 - 115 U/L | EXTERNAL | | | External | performed at [facility];[address] | | LAB | | | | [address];[place] | | | | | | [address] | | | | + + + + + + | AST | 17Comment: MODERATE | 10 - 45 U/L | EXTERNAL | | | | HEMOLYSISTesting | | LAB | | | | performed at [facility];[address] | | | | | | [address];[place] | | | | | | [address] | | | | + + + + + + | ALT | 17Comment: Testing | 10 - 65 U/L | EXTERNAL | | | | performed at [facility];[address] | | LAB | | | | [address];[place] | | | | | | [address] | | | | + + + [...] | | at [facility];[address] [facility] | | | | | | [facility];[place] [address] | | | | + + + [...] type 2 diabetes mellitus with hyperglycemia, unspecified supervisor intermediates | | insulin use status | + [...]
--- OUTSIDE RECORDS SUMMARY | ~2019-10-08 | XMS | Encounter Summary ---
Demographics + + + | Address | [address] | | | [place] [address] | + + + | Home Phone [...] Team Providers + +------+ + | Care Mosaicist Name | Role | Phone | + [...] + + | 09/22/ | Telephone | [facility] | Avi Forde MD | Other | | 2014 | | GASTROENTEROLOGY | [address] | | | | | [address] | [address] [place] [address] | | | | | [address] [place], [place] | [address] | | | | | [address] | | | | | | [phone] | | | +--------+ + + + [...]
--- OUTSIDE RECORDS SUMMARY | ~2019-10-08 | XMS | Encounter Summary ---
Demographics + + + | Address | [address] | | | [place] [address] | + + + | Home Phone [...] Team Providers + +------+ + | Care Qa Automation Architect Name | Role | Phone | + [...] | | | | EM[facility]Y [facility]ENTER | [place] [address] | encounter | | | | [address] | [phone] | | | | | [place], [place] | | | | | | [address] | | | | | | [phone] | | | +--------+ + + + [...] | | | Fingerstick | performed at [facility];[address] | | LAB | | | | [address];[place], [place] | | | | | | [address] | | | | + + + [...]
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
== END 2019-10-08 19:50 | disposition home or self-care (01) ==
LOC: ED 17:01
PROC: 093K7ZZ Control Bleeding in Nasal Mucosa and Soft Tissue, Via Natural or Artificial Opening (ICD-10-PCS; principal; 2019-10-08)
DX: R04.0 Epistaxis (principal); I10 Essential (primary) hypertension; E11.9 Type 2 diabetes mellitus without complications; Z87.891 Personal history of nicotine dependence; Z88.0 Allergy status to penicillin; Z79.82 Long term (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 of aspirin
CPT/HCPCS: 30901; 99283-25

== ENCOUNTER 2019-10-09 17:47 | Emergency (ER) | payer OTHER ==
[~2019-10-09] VITALS: Ht 177.8 cm; Wt 74.8 kg
--- OUTSIDE RECORDS SUMMARY | ~2019-10-09 | XMS | Encounter Summary ---
Demographics + + + | Address | [address] | | | [place] [address] | + + + | Home Phone | | + + + | Preferred Language | Unknown | + + + | Marital Status | Single | + + + | Rastafari Affiliation | 1077 | + + + | Race | Unknown | + + + | Ethnic Group | Unknown | + + + Author + + + | Author | [facility] | | | and [place] | + + + | Organization | [facility] | | [...] Team Providers + +------+ + | Care Saddle Cutter Name | Role | Phone | + +------+ + | Estrella Light PA-C | PCP | | + +------+ + Encounter Details +--------+---------+ + + + | Date | Type | Department | Care Team | Description | +--------+---------+ + + + | 04/12/ | Surgery | [facility] | Avi Forde MD | EGD / COLONOSCOPY - | | 2015 | | MED CTR MP INTRA OP | [address], [place] | DM (insulin) | | | | [address] | [address] [place] | | | | | [place] | [id number] | | | | | [address] | | | | | | [phone] | | | +--------+---------+ + + + [...]
--- OUTSIDE RECORDS SUMMARY | ~2019-10-09 | XMS | Encounter Summary ---
Demographics + + + | Address | [address] | | | [place] [address] | + + + | Home Phone [...] + + + | Author | [facility] | | | and [place] | + + + | Organization | [facility] | | | [...] Team Providers + +------+ + | Care Mill Crane Operator Name | Role | Phone | + +------+ + | Estrella Light PA-C | PCP | | + +------+ + Encounter Details +--------+---------+ + + + | Date | Type | Department | Care Team | Description | +--------+---------+ + + + | 04/12/ | Surgery | [facility] | Avi Forde MD | EGD / COLONOSCOPY - | | 2015 | | MED CTR MP INTRA OP | [address], [place] | DM (insulin) | | | | [address] | [address] [place] | | | | | [place] | [id number] | | | | | [address] | | | | | | [phone] | | | +--------+---------+ + + + [...]
--- OUTSIDE RECORDS SUMMARY | ~2019-10-09 | XMS | Clinical Summary ---
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 | + + + +---+ | [...] | | | Dtap/Tdap/Td (1 - | 8 | | | | Tdap) | | [...] | [employer] | MODA | [id number] | | [phone] | | Medica | | MEDICAID HMO | HEALTH | | 018-Pr | 1 | | id | | | MDCD | | esent | | | | | | HMO OR | | | | | | + +--------+ +--------+ +---------+--------+ | [facility] | IHS | [id number] | | | | Indemn | | [...] Person | Self | [birth year] | [address] | | | al/Fam | | 1965 | [phone] | [place] | | | vikas | | | 8 (Home) | [address] | + +--------+ +--------+ + + Advance Directives + + + + + | Type | Date Recorded | Patient | Explanation | | | | Junior Loan Processor | | + + + + + | Power of | | | | | Armored Cable Machine Operator | | | | + + + + + | Advance | | | | | Directive | | | | + + + + +
--- OUTSIDE RECORDS SUMMARY | ~2019-10-09 | XMS | Clinical Summary ---
Demographics + + + | Address | [address] [place] [address] RD | | | [place] [address] | + + + | Home Phone [...] + + + | Author | [facility] | | | and [place] | + + + | Organization | 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 | + + + +---+ | [...] | [employer] | MODA | [id number] | | [phone] | | Medica | | MEDICAID HMO | HEALTH | | 018-Pr | 1 | | id | | | MDCD | | esent | | | | | | HMO OR | | | | | | + +--------+ +--------+ +---------+--------+ | [facility] | IHS | [id number] | | | | Indemn | | [...] Person | Self | [birth year] | | [address] | | | al/Fam | | 1965 | [phone] | [place] | | | vikas | | | 8 (Home) | [address] | + +--------+ +--------+ + + Advance Directives + + + + + | Type | Date Recorded | Patient | Explanation | | | | Gate Services Supervisor | | + + + + + | Power of | | | | | Retail And Restaurant Associate | | | | + + + + + | Advance | | | | | Directive | | | | + + + + +
--- OUTSIDE RECORDS SUMMARY | ~2019-10-09 | XMS | Encounter Summary ---
Demographics + + + | Address | [address] | | | [place] [address] | + + + | Home Phone | | + + + | Preferred Language | Unknown | + + + | Marital Status | Single | + + + | Evangelical Affiliation | 1077 | + + + | Race | Unknown | + + + | Ethnic Group | Unknown | + + + Author + + + | Author | [facility] | | | and [place] | + + + | Organization | [facility] | | [...] Team Providers + +------+ + | Care Grounds Restoration Specialist Name | Role | Phone | + +------+ + | Estrella Light PA-C | PCP | | + +------+ + Encounter Details +--------+ + + + + | Date | Type | Department | Care Team | Description | +--------+ + + + + | 05/12/ | Orders Only | [facility] | Provider, | | | 2019 | | SYSTEM GENERIC OP | [address] | | | | | CONVERSION [address] | [place] | | | | | [address] [place], [place] | [place] [address] | | | | | [address] | | | | | | [phone] | | | +--------+ + + + [...]
--- OUTSIDE RECORDS SUMMARY | ~2019-10-09 | XMS | Encounter Summary ---
Demographics + + + | Address | [address] | | | [place] [address] | + + + | Home Phone | | + + + | Preferred Language | Unknown | + + + | Marital Status | Single | + + + | Latter Day Affiliation | 1077 | + + + [...] Providers + +------+ + | Care Supervisor Fur Dressing Name | Role | Phone | + +------+ + | Estrella Light PA-C | PCP | | + +------+ + Encounter Details +--------+ + + + + | Date | Type | Department | Care Team | Description | +--------+ + + + + | 01/13/ | Hospital | [facility] | Conversion | Diagnosis unknown | | 2018 | Encounter | CONVERSION DEP [address] | Transaction, | | | | | [address] | Provider Unknown | | | | | [place] | | | | | | [address] | (Fax) | | | | | [phone] | | | +--------+ + + + [...]
--- OUTSIDE RECORDS SUMMARY | ~2019-10-09 | XMS | Encounter Summary ---
Demographics + + + | Address | [address] | | | [place] [address] | + + + | Home Phone [...] Providers + +------+ + | Care Manager Machine Name | Role | Phone | + [...] | | type | [address] | [place], | | | | | | [place], | [place] [address] | | | | | | [place] [address] | Phone: | | | | | | Phone: | [phone] | | | | | | [phone] | Fax: | | | | | | Fax: | [phone] | | | | | | [phone] | | +--------+ + + + + + Reason for Visit + + + | Reason | Comments | + + + | Hematuria | | + + + Encounter Details +--------+ + + + + | Date | Type | Department | Care Team | Description | +--------+ + + + + | 10/16/ | Emergency | [facility] | Keenan Estrada MD | Hematuria, | | 2019 | | MED CTR EMERGENCY | [address] | unspecified type | | | | CENTER [address] | [place] | (Primary Dx) | | | | [place] | [id number] | | | | | [address] | | | | | | [phone] | | | +--------+ + + + [...] + + +--------+ + + | Urology [facility] - | Outpatient | Routin | [...] + | [facility] | [address] | [place] | [phone] | | [facility] | | [address] | | | - LABORATORY | | [...] - 1.030 | [facility] | | | [place] | | | [facility] | | [...] [address] | [place] | [phone] | | [facility] | | [address] | | | - LABORATORY | | [...]
--- OUTSIDE RECORDS SUMMARY | ~2019-10-09 | XMS | Encounter Summary ---
Demographics + + + | Address | [address] | | | [place] [address] | + + + | Home Phone | | + + + | Preferred Language | Unknown | + + + | Marital Status | Single | + + + | Adventism Affiliation | 1077 | + + + | Race | Unknown | + + + | Ethnic Group | Unknown | + + + Author + + + | Author | [facility] | | | and [place] | + + + | Organization | [facility] | | | [...] Team Providers + +------+ + | Care Showroom Salesperson Name | Role | Phone | + +------+ + PCP | Unavailable | + +------+ + Encounter Details +--------+ + + + + | Date | Type | Department | Care Team | Description | +--------+ + + + + | 05/21/ | Hospital | [facility] | Unknown, | | | 1992 | Encounter | MED CTR XRAY [address] | [place] | | | | | [place] | [phone] | | | | | [place] [address] | | | | | | [phone] | | | +--------+ + + + [...]
--- OUTSIDE RECORDS SUMMARY | ~2019-10-09 | XMS | Encounter Summary ---
Demographics + + + | Address | [address] | | | [place] [address] | + + + | Home Phone | | + + + | Preferred Language | Unknown | + + + | Marital Status | Single | + + + | Tenriism Affiliation | 1077 | + + + | Race | Unknown | + + + | Ethnic Group | Unknown | + + + Author + + + | Author | [facility] | | | and [place] | + + + | Organization | [facility] | | [...] Team Providers + +------+ + | Care Director Of Instruction Name | Role | Phone | + [...] | diarrhea | | | | [address] [place], [place] | [address] | | | | | [address] | | | | | | [phone] | | | +--------+ + + + [...]
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
--- OUTSIDE RECORDS SUMMARY | ~2019-10-09 | XMS | Encounter Summary ---
Demographics + + + | Address | [address] | | | [place] [address] | + + + | Home Phone | | + + + | Preferred Language | Unknown | + + + | Marital Status | Single | + + + | Sabianism Affiliation | 1077 | + + + [...] Team Providers + +------+ + | Care Perinatal Technician Name | Role | Phone | + +------+ + | Estrella Light PA-C | PCP | | + +------+ + Encounter Details +--------+ + + + + | Date | Type | Department | Care Team | Description | +--------+ + + + + | 01/13/ | Hospital | [facility] | Cameron Lopez | | | 2018 - | Encounter | [facility] | MD [place] | | | | | CLINICAL DECISION | [place], [place] | | | 01/14/ | | UNIT [facility] | [address] | | | 2017 | | [place], [place] | | | | | | [address] | | | | | | [phone] | | | +--------+ + + + [...] 01/14/181931 Date of Service: 01/14/18899 Status: Signed Active Directory Specialist: Abhinav Winters DO (Physician) The patient is 52 y.o. 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 In the emergency department at [facility], EKG showed T inversions in lead [...] Date of Service: 04/15/18 0900 Status: Signed Active Directory Specialist: Elizabeth Galvez, RN (Registered Nurse) Approached [...] 01/13/181399 Date of Service: 01/13/181399 Status: Signed Active Directory Specialist: Rosalba Luo RPH (Pharmacist) Clinical Pharmacy [...] | | | Basophils | performed at [facility], [address] | K/uL | LAB | | | | [address] [place], | | | | | | [place] [address] | | | | + + + [...] | | | | [place] [address] | | | | + + + [...] EXTERNAL | | | | performed at [facility], [address] | | LAB | | | | [place], | | | | | | [place] [address] | | | | + + [...] EXTERNAL | | | | performed at [facility], [address] | | LAB | | | | [place], | | | | | | [place] [address] | | | | + + + [...] | EXTERNAL | | | A1c | [place] Diabetes | | LAB | | | [...] | | | | | performed at [facility], [address] | | | | | | [facility], | | | | | | [place] [address] | | | | + + + [...] | | | Cholesterol | performed at [facility], [address] | | LAB | | | , | [place], | | | | | Calculated, | [place] [address] | | | | | External | [...] | | | | | | at [facility], [address] | | | | | | [place], | | | | | | [place] [address] | | | | + + [...] | | | Fingerstick | performed at [facility];[address] | | LAB | | | | [address];[place], [place] | | | | | | [address] | | | | + + + [...] + + | Historically converted procedure from [facility] Epic environment | EXTERNAL LAB | [...] EXTERNAL | | | | performed at [facility];[address] | | LAB | | | | [address];[place], [place] | | | | | | [address] | | | | + + + [...] | | | Fingerstick | performed at [facility];[address] | | LAB | | | | [address];[place], [place] | | | | | | [address] | | | | + + + [...] | | | | | | ACUTE [place] Testing | | | | | | performed at [facility];[address] | | | | | | [address] [facility];[place], [place] | | | | | | [address] | | | | + + + [...] EXTERNAL | | | | performed at [facility];[address] | | LAB | | | | [address];[place] | | | | | | [address] | | | | + + + [...] | | | Fingerstick | performed at [facility];[address] | | LAB | | | | [address];[place] | | | | | | [address] | | | | + + + [...] | | | Fingerstick | performed at [facility];[address] | | LAB | | | | [address];[place] | | | | | | [address] | | | | + + + [...] | | | | | | ACUTE [place] Testing | | | | | | performed at [facility] | | | | | | [facility];[place], [place] | | | | | | [address] | | | | + + + [...] EXTERNAL | | | | performed at [facility];[address] | | LAB | | | | [address];[place], [place] | | | | | | [address] | | | | + + + [...] TV A Star: 0.46 m/s TV Dec [place]: 2.14 m/s2 TV Dec Time: | | | 223.61 ms TV E Star: 0.47 m/s TV E/A Ratio: 1.03 | | | Mounter Sousaphones: DIDI Authenticated by: Dereck Galicia Report | [...] (A-L): | | 16.36 ml/m2LAAs A2C: 13.19 [id number] A-L A2C: 34.91 mlLALs A2C: 4.23 cmLAAs A4C: | | 11.37 [id number] A-L A4C: 29.21 mlLALs A4C: 3.75 cmRAAd: 13.57 [id number] A-L: | | 35.22 mlRAEDV MOD: 30.46 mlRALd: 4.44 cmTAPSE: 1.67 cmHR: 82.18 BPMAV maxPG: | | 3.19 mmHgAV meanP.99 mmHgAV Vmax: 0.89 m/Simran Vmean: 0.69 m/Simran VTI: 18.16 | | cmAVA Vmax: 3.34 cm2AVA (VTI): 3.51 sl1EQED Vmax: 0.00 cm2/m2AVAI (VTI): 0.00 | | cm2/m2LVCI Dopp: 2.41 l/beni1USNR Dopp: 5.00 l/minHR: 78.46 BPMLVOT maxP.34 | [...] 3 mmHgTV A Star: 0.46 m/sTV Dec [place]: 2.14 m/s2TV Dec Time: 223.61 | | msTV E Star: 0.47 m/sTV E/A Ratio: 1.03 Mounter Sousaphones: Nishaticated by: Deerck | | KorimerlaReport Date/Time: 01-13-2018 17:21:41 IMPRESSION: [...] A Star: 0.46 m/s | |TV Dec [place]: 2.14 m/s2 | |TV Dec Time: 223.61 ms | |TV E Star: 0.47 m/s | |TV E/A Ratio: 1.03 | | | |Mounter Sousaphones: GD | |Authenticated by: Dereck Galicia | [...] | | | Fingerstick | performed at [facility];[address] | | LAB | | | | [address];[place], [place] | | | | | | [address] | | | | + + + [...] | | | | | | ACUTE [place] Testing | | | | | | performed at [facility];[address] | | | | | | [facility];[place], [place] | | | | | | [address] | | | | + + + [...] + + | Historically converted procedure from [facility] Epic environment | EXTERNAL LAB | [...] | | | PCRAbnormal Testing performed at [facility];[address] [place] [address];[place] [address] | | + + + + +---------+ [...]
--- OUTSIDE RECORDS SUMMARY | ~2019-10-09 | XMS | Encounter Summary ---
Demographics + + + | Address | [address] | | | [place] [address] | + + + | Home Phone [...] Author + + + | Author | [facility] | | | and [place] | + + + | Organization | [facility] | | | [...] Team Providers + +------+ + | Care Forest Fire Control Officer Name | Role | Phone | + +------+ + PCP | Unavailable | + +------+ + Encounter Details +--------+ + + + + | Date | Type | Department | Care Team | Description | +--------+ + + + + | 07/19/ | Hospital | [facility] | | | | 1992 | Encounter | MED CTR MP INTRA OP | | | | | | [address] | | | | | | [place] | | | | | | [address] | | | | | | [phone] | | | +--------+ + + + [...]
--- OUTSIDE RECORDS SUMMARY | ~2019-10-09 | XMS | Encounter Summary ---
Demographics + + + | Address | [address] | | | [place] [address] | + + + | Home Phone | | + + + | Preferred Language | Unknown | + + + | Marital Status | Single | + + + | Jainism Affiliation | 1077 | + + + [...] Team Providers + +------+ + | Care Biometrics Technician Name | Role | Phone | [...] | 04/12/ | Telephone | [facility] | Avi Forde MD | [facility] No [facility] | | 2015 | | GASTROENTEROLOGY | [address], [place] | | | | | [address] [place] | [address] [place] | | | | | [address] [place], [place] | [address] | | | | | [address] | | | | | | [phone] | | | +--------+ + + + [...]
--- OUTSIDE RECORDS SUMMARY | ~2019-10-09 | XMS | Encounter Summary ---
Demographics + + + | Address | [address] | | | [place] [address] | + + + | Home Phone | | + + + | Preferred Language | Unknown | + + + | Marital Status | Single | + + + | Samaritan Affiliation | 1077 | + + + | Race | Unknown | + + + | Ethnic Group | Unknown | + + + Author + + + | Author | [facility] | | | and [place] | + + + | Organization | [facility] | | [...] Team Providers + +------+ + | Care Atmospheric Physicist Name | Role | Phone | + [...] + + | 09/22/ | Telephone | [facility] | Avi Forde MD | Other | | 2014 | | GASTROENTEROLOGY | [address] [place] | | | | | [address] [facility] | [address] [place] | | | | | [address] [place], [place] | [address] | | | | | [address] | | | | | | [phone] | | | +--------+ + + + [...]
--- OUTSIDE RECORDS SUMMARY | ~2019-10-09 | XMS | Encounter Summary ---
Demographics + + + | Address | [address] | | | [place] [address] | + + + | Home Phone [...] Team Providers + +------+ + | Care Weed Control Inspector Name | Role | Phone | + +------+ + | Estrella Light PA-C | PCP | | + +------+ + Encounter Details +--------+ + + + + | Date | Type | Department | Care Team | Description | +--------+ + + + + | 09/04/ | Abstract | [facility] | Avi Forde MD | | | 2014 | | GASTROENTEROLOGY | [address], [place] | | | | | [address] [place] | [address] [place] | | | | | [address] [place], [place] | [address] | | | | | [address] | | | | | | [phone] | | | +--------+ + + + [...]
--- OUTSIDE RECORDS SUMMARY | ~2019-10-09 | XMS | Encounter Summary ---
Demographics + + + | Address | [address] | | | [place] [address] | + + + | Home Phone | | + + + | Preferred Language | Unknown | + + + | Marital Status | Single | + + + | Jehovah'S Witness Affiliation | 1077 | + + + [...] Team Providers + +------+ + | Care Bridge Instructor Name | Role | Phone | [...] + + | 04/12/ | Telephone | [facility] | Avi Forde MD | [facility] No Show | | 2015 | | GASTROENTEROLOGY | [address], [place] | | | | | [address] [place] | [address] [place] | | | | | [address] [place], [place] | [address] | | | | | [address] | | | | | | [phone] | | | +--------+ + + + [...]
--- OUTSIDE RECORDS SUMMARY | ~2019-10-09 | XMS | Encounter Summary ---
Demographics + + + | Address | [address] | | | [place] [address] | + + + | Home Phone | | + + + | Preferred Language | Unknown | + + + | Marital Status | Single | + + + | Zoroastrian Affiliation | 1077 | + + + | Race | Unknown | + + + | Ethnic Group | Unknown | + + + Author + + + | Author | [facility] | | | and [place] | + + + | Organization | [facility] | | | and [...] Team Providers + +------+ + | Care Sulfide Head Operator Name | Role | Phone | [...] antibody | [address], | | | | | positive | [address] [place], [place] | [place] [address] | | | | | Chronic | [address] [place] | [place], | | | | | diarrhea | [place], [place] | [place] [address] | | | | | Procedures | [address] | Phone: | | | | | [place] | Phone: | [phone] | | | | | COLONOSCOPY | [phone] | Fax: | | | | | FLX DX | Fax: | [phone] | | | | | W/COLLJ SPEC | [phone] | | | | | | WHEN PFRMD | | | | | | | DC | | | | | | | COLONOSCOPY | | | | | | | W/BIOPSY | | | | | | | SINGLE/MULTI | | | | | | | PLE DC | | | | | | | COLSC FLX | | | | | | | W/RMVL OF | | | | | | | TUMOR POLYP | | | | | | | LESION SNARE | | | | | | | TQ DC | | | | | | | ESOPHAGOGAST | | | | | | | RODUODENOSCO | | | | | | | PY TRANSORAL | | | | | | | DIAGNOSTIC | | | | | | | DC EDG | | | | | | [...] 2015 | | GASTROENTEROLOGY | [address], [place] | (egd/colon ) | | | | [address] [place] | [address] [place], [place] | | | | | [address] [place], [place] | [address] | | | | | [address] | | | | | | [phone] | | | +--------+ + + + [...]
--- OUTSIDE RECORDS SUMMARY | ~2019-10-09 | XMS | Encounter Summary ---
Demographics + + + | Address | [address] | | | [place] [address] | + + + | Home Phone [...] Providers + +------+ + | Care Manager Fine Name | Role | Phone | + +------+ + | Estrella Light PA-C | PCP | | + +------+ + Encounter Details +--------+ + + + + | Date | Type | Department | Care Team | Description | +--------+ + + + + | 12/14/ | Hospital | [facility] | [place], | Osteomyelitis of | | 2017 - | Encounter | [facility] | MD Pavel [address] | foot, left, acute | | | | CARE FLOOR [address] | ([facility]); Uncontrolled | | 12/20/ | | [address] | [place] [address] | type 2 diabetes | | 2017 | | [place], [place] | [phone] | mellitus with | | | | [address] | | hyperglycemia, | | | | [phone] | | unspecified long | | | | | | term insulin use | | | | | | status ([facility]); Renal | | | | [...] 1933 Date of Service: 12/20/161538 Status: Addendum Corporate Legal Assistant: Bunny Chaney MD (Physician) Related Notes: Original Note by Bunny Chaney MD (Physician) filed at 12/26/16 0644 [facility]: Hospitalist Physician Discharge Summary Patient ID: Kuldip Smith [id number] y.o. 1965 Admit date: 12/14/2016 Discharge [...] been approved, which should be given from [facility] ec until further approval from insurance. Also [...] up: Estrella Light PA-C [address] [place] [address] Rebeca Reza MD [address] [facility] [address] Schedule an appointment as soon as possible for a visit in 10 days Dictation and warranty coordinator or software, [employer], used which may contain error for similar [...] AMPUTATION; Surgeon: Walter Fernandez DPM; Location: [facility] MAIN OR; Service: Podiatry; Laterality: [...] Management by Jenny Vaughan RN at 12/20/16 9184 Author: Jenny Vaughan RN Service: (none) Author Type: Registered Nurse Filed: 12/20/16 5639 Date of Service: 12/20/161538 Status: Signed Corporate Legal Assistant: Jenny Vaughan RN (Registered Nurse) 1610 - Received call from [facility] stating they are now unable to accept pa tient due to a "freeze on admits". They are aware patient has been discharged and is en rou te to home. They are still unable to accept. Call placed to [facility] OPP rega rding need for services. They state pt will need to arrange wound care/dressing changes thr ough his PCP per insurance requirements. Voicemail left for Coby at [facility] to return call. Will need to call back in morning to schedule appointment as clinic is currently closed. onver ruben Transaction, Provider Unknown - 12/20/2016 3:39 PM PDT Case Management by Mirlande Prescott RN at 12/20/16 8431 Author: Mirlande Prescott RN Service: (none) Author Type: Registered Nurse Filed: 12/21/16 0808 Date of Service: 12/20/16 1539 Status: Signed Corporate Legal Assistant: Mirlande Prescott RN (Registered Nurse) 0800: Tc to pt's PCP, Coby Light, with [facility], to updat e about [facility] not being able to admit pt. Coby states she and Charlotte will work on getting pt the appropriate wound vac care he needs, they are going to try and get pt into O P wound therapy with [facility] or maybe to OP in WW. Coby states she will als o call [facility] as to when they can admit pt under their services. Maribel onver ruben Transaction, Provider Unknown - 12/20/2016 1:03 PM PDT Progress Notes by Rachael Molina RN at 12/20/16 1303 Author: Rachael Molina RN Service: Wound/Ostomy Care Author Type: Registered Nurse Filed: 12/20/16 1311 Date of Service: 12/20/16 1303 Status: Signed Corporate Legal Assistant: Rachael Molina RN (Registered Nurse) Wound care in to switch patient out to portable wound vac unit. This is a sol vac on l oan from [facility]. Explained to patient when his insurance [...] Hospital vac dc'd in [facility] express: #[id number] Rachael Molina RN, ON 12/20/2016 1:10 PM onver ruben Transaction, Provider Unknown - 12/20/2016 11:34 AM PDT Case Management by Mirlande Prescott RN at 12/20/16 1134 Author: Mirlande Prescott RN Service: (none) Author Type: Registered Nurse Filed: 12/20/16 1459 Date of Service: 12/20/16 1134 Status: Addendum Corporate Legal Assistant: Mirlande Prescott RN (Registered Nurse) Related Notes: Original Note by Mirlande Prescott RN (Registered Nurse) filed at 12/20/16 114 9 Per rounding with pt, he will be d/c home today. Pt states his mother will be providing tra nsportation home. Wound vac has been approved by [facility]. [facility] has been set up, and they have been notified about d/c, pt may not be able t o be admitted until . Pt's wound dressing is due Monday. Tc to Angie with wound care, it's not ideal that pt's dressing doesn't get changed until , but it is ok to wait. Dr Chaney was notified and agrees with plan. Tc to Coby [phone] and Charlotte [phone] with [facility]/mannie pickens nd left mssgs of pt's d/c Today. Faxed AVS to [facility] Maribel Iqra Mcgregor PT - 12/20/2016 10:07 AM PDTFormatting of this note might be different from th e original. Therapy Progress Note by Karina Zabala PT at 12/20/16 1007 Author: Karina Zabala PT Service: (none) Author Type: Physical Therapist Filed: 12/20/16 1037 Date of Service: 12/20/16 1007 Status: Signed Corporate Legal Assistant: Karina Zabala PT (Physical Therapist) 12/20/16 1007 [...] (none) Author Type: Physical Therapist Filed: 12/19/16 2348 Date of Service: 12/19/166 Status: Signed Corporate Legal Assistant: Natalia Marte PT (Physical Therapist) 12/19/16 1646 PT Last Visit PT Received On 12/19/16 Reason for Treatment Other (comment) (L foot osteomyelitis) Requires PT Follow Up Awaiting tx order Follow up PT Only? Yes (Assistive device assessment) Focus for Next Treatment Equipment Trial;Stair Training (bilateral axillary crutches and stair training) PT Eval/Reassessment Date 12/19/16 Assistance Required 1 person Covering Machine Operator Needed No Home Environment Type of Home Home one story Home Exterior Layout 1-3 steps (2 JEISON) Home Interior Layout Lives on main level with bedroom/bathroom Bathroom Shower/Tub Tub/shower unit Bathroom Toilet Raised Bathroom Equipment Grab bars outside of shower/bath;Raised toilet seat Bathroom Accessibility Not accessible Home Equipment Cane single point;Crutches-axillary Prior Function Level of [place] Independent with ADLs;Independent with IADLs;Modified independent wi [...] Eval/Reassessment Date 12/19/16 Assistance Required 1 person Covering Machine Operator Needed No Precautions LE Precaution(s) LLE Precautions/WB [...] limited by pain Nurse Made Aware MAXX Bronw Safety Devices Safety Devices in Place Yes [...] Notes by Rebeca Reza MD at 12/19/16 2503 Author: Rebeca Reza MD Service: Infectious Disease Author Type: Physician Filed: 12/20/16 0639 Date of Service: 12/19/16 8885 Status: Signed Corporate Legal Assistant: Rebeca Reza MD (Physician) [facility]: Infectious Disease Progress Note Hospital [...] Dec 15 2016 9:30AM Referring Provider Line: [phone] ID: [id number] MRI foot left without contrast [[id number]] Impression 1. Recent amputation of the LEFT 4th toe. 2. No radiographic evidence of residual osteomyelitis in the remaining ossicles of the LEF T forefoot. 3. Moderately extensive vascular calcifications. X-ray foot left [[id number]] PROBLEM LIST Principal Problem: Osteomyelitis (HCC) Active [...] Date of Service: 12/19/16 1103 Status: Signed Corporate Legal Assistant: Dell Archer DO (Physician) PROGRESS NOTE 12/19/2016 [...] 1103 Date of Service: 12/19/16914 Status: Addendum Corporate Legal Assistant: Jenny Vaughan RN (Registered Nurse) Related Notes: Original Note by Jenny Vaughan RN (Registered Nurse) filed at 12/19/16 [phone] - [facility]. [...] accept patient. Face to face order faxed ([phone]) Charlotte [facility] RN [phone] Alicia with [facility] notified of wound vac placement. Auth form signed by hospitalist and faxed to Alicia. Lilly with [facility] notified of patient discharging on oral antibiotics. onver ruben Transaction, Provider Unknown - 12/18/2016 6:45 PM PDT Nurse Progress Note by Gerber Hay RN at 12/18/161844 Author: Gerber Hay RN Service: (none) Author Type: Registered Nurse Filed: 12/18/161847 Date of Service: 12/18/161844 Status: Signed Corporate Legal Assistant: Gerber Hay RN (Registered Nurse) Pt resting [...] 12/18/16933 Date of Service: 12/18/16928 Status: Addendum Corporate Legal Assistant: Dell Archer DO (Physician) Related Notes: Original [...] 12/18/16899 Date of Service: 12/18/16854 Status: Signed Corporate Legal Assistant: Walter Fernandez DPM (Doctor of Podiatric Medicine) [facility]: Podiatry Progress Note Hospital Day: [...] home health care. Dr. David DPM in [place] take s care of this patient and [...] 12/18/16845 Date of Service: 12/18/16845 Status: Signed Corporate Legal Assistant: Destini Vargas RPH (Pharmacist) Day 5 Vanco [...] 1108 Date of Service: 12/18/16820 Status: Signed Corporate Legal Assistant: Rebeca Reza MD (Physician) [facility]: Infectious Disease Progress Note Hospital [...] Dec 15 2016 9:30AM Referring Provider Line: [phone] ID: [id number] MRI foot left without contrast [[id number]] Impression 1. Recent amputation of the LEFT 4th toe. 2. No radiographic evidence of residual osteomyelitis in the remaining ossicles of the LEF T forefoot. 3. Moderately extensive vascular calcifications. X-ray foot left [[id number]] PROBLEM LIST Principal Problem: Osteomyelitis (HCC) Active [...] Note by Jihan Jacinto RPH at 12/17/16 8904 Author: Jihan Jacinto RPH Service: Pharmacy Author Type: Pharmacist Filed: 12/17/162246 Date of Service: 12/17/162246 Status: Signed Corporate Legal Assistant: Jihan Jacinto RPH (Pharmacist) Clinical Pharmacy Note: [...] 12/17/161750 Date of Service: 12/17/161742 Status: Signed Corporate Legal Assistant: Gerber Hay RN (Registered Nurse) Wound vac [...] Notes by Rebeca Reza MD at 12/17/16 6750 Author: Rebeca Reza MD Service: Infectious Disease Author Type: Physician Filed: 12/17/16 1702 Date of Service: 12/17/16 1510 Status: Addendum Corporate Legal Assistant: Rebeca Reza MD (Physician) Related Notes: Original Note by Rebeca Reza MD (Physician) filed at 12/17/16 6118 [facility]: Infectious Disease Progress Note Hospital [...] Dec 15 2016 9:30AM Referring Provider Line: [phone] ID: [id number] MRI foot left without contrast [[id number]] Impression 1. Recent amputation of the LEFT 4th toe. 2. No radiographic evidence of residual osteomyelitis in the remaining ossicles of the LEF T forefoot. 3. Moderately extensive vascular calcifications. X-ray foot left [[id number]] PROBLEM LIST Principal Problem: Osteomyelitis (HCC) Active [...] Doctor of Podiatric Medi cine Filed: 12/17/16 1157 Date of Service: 12/17/16 1406 Status: Signed Corporate Legal Assistant: Walter Fernandez DPM (Doctor of Podiatric Medicine) [facility]: Podiatry Progress Note Hospital Day: [...] Note by Gerber Hay RN at 12/17/16 5073 Author: Gerber Hay RN Service: (none) Author Type: Registered Nurse Filed: 12/17/16 2930 Date of Service: 12/17/16 1144 Status: Signed Corporate Legal Assistant: Gerber Hay RN (Registered Nurse) Pt had [...] Filed: 12/17/16 1103 Date of Service: 12/17/16 1057 Status: Signed Corporate Legal Assistant: Dell Archer DO (Physician) PROGRESS NOTE 12/17/2016 [...] 12/17/16834 Date of Service: 12/17/16834 Status: Signed Corporate Legal Assistant: Destini Vargas RPH (Pharmacist) Day 4 Vanco [...] 12/17/168 Date of Service: 12/17/16307 Status: Signed Corporate Legal Assistant: Jihan Jacinto RPH (Pharmacist) Clinical Pharmacy Note: [...] 12/16/161719 Date of Service: 12/16/161709 Status: Signed Corporate Legal Assistant: Walter Fernandez DPM (Doctor of Podiatric Medicine) [facility]: Podiatry Progress Note Hospital Day: [...] Notes by Rebeca Reza MD at 12/16/16 4205 Author: Rebeca Reza MD Service: Infectious Disease Author Type: Physician Filed: 12/16/16 1606 Date of Service: 12/16/161 Status: Signed Corporate Legal Assistant: Rebeca Reza MD (Physician) [facility]: Infectious Disease Progress Note Hospital [...] Dec 15 2016 9:30AM Referring Provider Line: [phone] ID: [id number] MRI foot left without contrast [[id number]] Impression 1. Recent amputation of the LEFT 4th toe. 2. No radiographic evidence of residual osteomyelitis in the remaining ossicles of the LEF T forefoot. 3. Moderately extensive vascular calcifications. X-ray foot left [[id number]] PROBLEM LIST Principal Problem: Osteomyelitis (HCC) Active [...] Management by Jenny Vaughan RN at 12/16/16 0576 Author: Jenny Vaughan RN Service: (none) Author Type: Registered Nurse Filed: 12/16/16 3318 Date of Service: 12/16/16 3871 Status: Signed Corporate Legal Assistant: Jenny Comfort, RN (Registered Nurse) 12/16/16 1283 Discharge Planning Evaluation Admitting Diagnosis osteomyelitis Readmission No Living Arrangements Parent Support Systems Parent;Family members Type of Residence Private residence House type House-1 story Steps to enter 2 Independent with ADL's Yes Independent with Mobility Yes Mental Status Oriented Prior functional status not employed, independent Power of Machine Clerical Verifier No Anticipated Discharge Plan Post Acute Care [...] he states und erstanding. Referral sent to [facility] for nursing services as patient lives in [place]. Options for home IV abx services provided to pt/family and they do not have a preference. Referral to [facility] will follow. Pt/family requested I notify Coby at the [facility] of pt status as she ar ranges services for them. Contacted Coby and provided current discharge plan. If there is a change in plan, Coby requests to be notified as she will continue to follow patient after discharge. She also states pt will be followed by their community health nurse (Charlotte ) who works alongside [facility]. Coby [facility] [phone] Assistance in transportation: Pt's family is able [...] Date of Service: 12/16/16 1012 Status: Signed Corporate Legal Assistant: Dell Archer DO (Physician) PROGRESS NOTE 12/16/2016 [...] Date of Service: 12/15/16 1248 Status: Signed Corporate Legal Assistant: Jenny Vaughan RN (Registered Nurse) Attempted to [...] 12/15/16405 Date of Service: 12/15/16405 Status: Signed Corporate Legal Assistant: Jihan Jacinto RPH (Pharmacist) Clinical Pharmacy Note: [...] 12/15/16404 Date of Service: 12/15/16404 Status: Signed Corporate Legal Assistant: Jihan Jacinto RPH (Pharmacist) Clinical Pharmacy Note: [...] | | | Fingerstick | performed at [facility];88 | | LAB | | | | [address];[place] | | | | | | [address] | | | | + + [...] EXTERNAL | | | | performed at [facility];888 | | LAB | | | | [address];[place], [place] | | | | | | [address] | | | | + + + [...] EXTERNAL | | | | performed at [facility];888 | K/uL | LAB | | | | [address];[place] | | | | | | [address] | | | | + + + + + + | RED CELL | 4.00 (L)Comment: Testing | 4.20 - 5.70 | EXTERNAL | | | COUNT | performed at [facility];888 | M/uL | LAB | | | | [address];[place] | | | | | | [address] | | | | + + + + + + | Hgb | 11.6 (L)Comment: Testing | 13.2 - 17.0 | EXTERNAL | | | | performed at [facility];888 | g/dL | LAB | | | | [address];[place] | | | | | | [address] | | | | + + + + + + | Hematocrit, | 33.9 (L)Comment: Testing | 39.0 - 50.0 % | EXTERNAL | | | POC | performed at [facility];[address] | | LAB | | | | [address];[place] | | | | | | [address] | | | | + + + + + + | MCV | 84.7Comment: Testing | 80.0 - 100.0 fl | EXTERNAL | | | | performed at [facility];[address] | | LAB | | | | [address];[place] | | | | | | [address] | | | | + + + + + + | MCH | 28.9Comment: Testing | 27.0 - 34.0 pg | EXTERNAL | | | | performed at [facility];888 | | LAB | | | | [address];[place] | | | | | | [address] | | | | + + + + + + | MCHC | 34.1Comment: Testing | 32.0 - 35.5 | EXTERNAL | | | | performed at [facility];888 | g/dL | LAB | | | | [address];[place] | | | | | | [address] | | | | + + + + + + | RDW-CV | 42.0Comment: Testing | 37 - 53 fl | EXTERNAL | | | | performed at [facility];[address] | | LAB | | | | [address];[place] | | | | | | [address] | | | | + + + + + + | Platelet | 392Comment: Testing | 150 - 400 K/uL | EXTERNAL | | | Count | performed at [facility];888 | | LAB | | | Plasma | [address];[place] | | | | | | [address] | | | | + + + + + + | MPV | 7.0Comment: Testing | fl | EXTERNAL | | | | performed at [facility];[address] | | LAB | | | | [address];[place] | | | | | | [address] | | | | + + + + + + | Differentia | MANUALComment: Testing | | EXTERNAL | | | l Type | performed at [facility];[address] | | LAB | | | | [address];[place] | | | | | | [address] | | | | + + + + + + | Segmented | 69Comment: Testing | % | EXTERNAL | | | Neutrophils | performed at [facility];888 | | LAB | | | Manual | [address];[place] | | | | | | [address] | | | | + + + + + + | Lymphocytes | 21Comment: Testing | % | EXTERNAL | | | Manual | performed at [facility];[address] | | LAB | | | | [address];[place] | | | | | | [address] | | | | + + + + + + | Monocytes | 4Comment: Testing | % | EXTERNAL | | | Manual | performed at [facility];[address] | | LAB | | | | [address];[place] | | | | | | [address] | | | | + + + + + + | Eosinophils | 6Comment: Testing | % | EXTERNAL | | | Manual | performed at [facility];888 | | LAB | | | | [address];[place] | | | | | | [address] | | | | + + + + + + | Absolute | 5.08Comment: Testing | 1.90 - 7.40 | EXTERNAL | | | Neutrophils | performed at [facility];888 | K/uL | LAB | | | | [address];[place] | | | | | | [address] | | | | + + + + + + | Absolute | 1.55Comment: Testing | 1.00 - 3.90 | EXTERNAL | | | Lymphocytes | performed at [facility];888 | K/uL | LAB | | | | [address];[place] | | | | | | [address] | | | | + + + + + + | Absolute | 0.29Comment: Testing | 0.00 - 0.80 | EXTERNAL | | | Monocytes | performed at [facility];888 | K/uL | LAB | | | | [address];[place] | | | | | | [address] | | | | + + + + + + | Absolute | 0.44Comment: Testing | 0.00 - 0.50 | EXTERNAL | | | Eosinophils | performed at [facility];888 | K/uL | LAB | | | | [address];[place] | | | | | | [address] | | | | + + + + + + | RBC | NORMALComment: Testing | | EXTERNAL | | | Morphology | performed at [facility];[address] | | LAB | | | | [address];[place] | | | | | | [address] | | | | + + + [...] EXTERNAL | | | | performed at [facility];888 | | LAB | | | | [address];[place] | | | | | | [address] | | | | + + + [...] | | | Fingerstick | performed at [facility];[address] | | LAB | | | | [address];[place], [place] | | | | | | [address] | | | | + + + [...] | | | Fingerstick | performed at [facility];[address] | | LAB | | | | [address];[place] | | | | | | [address] | | | | + + + [...] | | | Fingerstick | performed at [facility];888 | | LAB | | | | [address];[place] | | | | | | [address] | | | | + + + [...] | | | Fingerstick | performed at [facility];888 | | LAB | | | | [address];[place] | | | | | | [address] | | | | + + + [...] | | | Fingerstick | performed at [facility];888 | | LAB | | | | [address];[place], [place] | | | | | | [address] | | | | + + + [...] | | | Fingerstick | performed at [facility];[address] | | LAB | | | | [address];[place] | | | | | | [address] | | | | + + + [...] | | | Fingerstick | performed at [facility];[address] | | LAB | | | | [address];[place], [place] | | | | | | [address] | | | | + + + [...] | | | Fingerstick | performed at [facility];[address] | | LAB | | | | [address];[place] | | | | | | [address] | | | | + + + [...] | EXTERNAL LAB | | performed at [facility];[address] [place] [address];[place] [address] TOXIN A | | | NEGATIVE Testing performed at | | | [facility];[address] [facility];[place] [address] C DIFF INTERPRETATION | | | Negative for toxigenic C.difficile. Testing performed at | | | [facility];[address] [place] [address];[place] [address] | | + + + + +---------+ [...] | | | Fingerstick | performed at [facility];[address] | | LAB | | | | [address];[place] | | | | | | [address] | | | | + + + [...] EXTERNAL | | | | performed at [facility], [address] | K/uL | LAB | | | | [address], | | | | | | [place] [address] | | | | + + + + + + | RED CELL | 3.92 (L)Comment: Testing | 4.20 - 5.70 | EXTERNAL | | | COUNT | performed at [facility], [address] | M/uL | LAB | | | | [address], | | | | | | [place] [address] | | | | + + + + + + | Hgb | 11.2 (L)Comment: Testing | 13.2 - 17.0 | EXTERNAL | | | | performed at [facility], [address] | g/dL | LAB | | | | [address], | | | | | | [place] [address] | | | | + + + + + + | Hematocrit, | 33.6 (L)Comment: Testing | 39.0 - 50.0 % | EXTERNAL | | | POC | performed at [facility], [address] | | LAB | | | | [address], | | | | | | [place] [address] | | | | + + + + + + | MCV | 85.9Comment: Testing | 80.0 - 100.0 fl | EXTERNAL | | | | performed at [facility], [address] | | LAB | | | | [address], | | | | | | [place] [address] | | | | + + + + + + | MCH | 28.7Comment: Testing | 27.0 - 34.0 pg | EXTERNAL | | | | performed at [facility], [address] | | LAB | | | | [address], | | | | | | [place] [address] | | | | + + + + + + | MCHC | 33.4Comment: Testing | 32.0 - 35.5 | EXTERNAL | | | | performed at [facility], [address] | g/dL | LAB | | | | [address], | | | | | | [place] [address] | | | | + + + + + + | RDW-CV | 41.1Comment: Testing | 37 - 53 fl | EXTERNAL | | | | performed at [facility], [address] | | LAB | | | | [address], | | | | | | [place] [address] | | | | + + + + + + | Platelet | 341Comment: Testing | 150 - 400 K/uL | EXTERNAL | | | Count | performed at [facility], [address] | | LAB | | | Plasma | [address], | | | | | | [place] [address] | | | | + + + + + + | MPV | 7.6Comment: Testing | fl | EXTERNAL | | | | performed at [facility], [address] | | LAB | | | | [address], | | | | | | [place] [address] | | | | + + + + + + | Differentia | AUTOMATEDComment: | | EXTERNAL | | | l Type | Testing performed at | | LAB | | | | [facility], [address] | | | | | | [place] | | | | | | [address] | | | | + + + + + + | % Segmented | 76.22Comment: Testing | % | EXTERNAL | | | | performed at [facility], [address] | | LAB | | | Neutrophils | [address], | | | | | | [place] [address] | | | | + + + + + + | % | 12.04Comment: Testing | % | EXTERNAL | | | Lymphocytes | performed at [facility], [address] | | LAB | | | | [address], | | | | | | [place] [address] | | | | + + + + + + | % Monocytes | 6.15Comment: Testing | % | EXTERNAL | | | | performed at [facility], [address] | | LAB | | | | [address], | | | | | | [place] [address] | | | | + + + + + + | % | 4.73Comment: Testing | % | EXTERNAL | | | Eosinophils | performed at [facility], [address] | | LAB | | | | [address], | | | | | | [place] [address] | | | | + + + + + + | % Basophils | 0.86Comment: Testing | % | EXTERNAL | | | | performed at [facility], [address] | | LAB | | | | [address], | | | | | | [place] [address] | | | | + + + + + + | Absolute | 8.38 (H)Comment: Testing | 1.90 - 7.40 | EXTERNAL | | | Segmented | performed at [facility], [address] | [address] | LAB | | | Neutrophils | [address], | | | | | | [place] [address] | | | | + + + + + + | Absolute | 1.32Comment: Testing | 1.00 - 3.90 | EXTERNAL | | | Lymphocytes | performed at [facility], [address] | K[address] | LAB | | | | [address], | | | | | | [place] [address] | | | | + + + + + + | Absolute | 0.68Comment: Testing | 0.00 - 0.80 | EXTERNAL | | | Monocytes | performed at [facility], [address] | K/uL | LAB | | | | [address], | | | | | | [place] [address] | | | | + + + + + + | Absolute | 0.52 (H)Comment: Testing | 0.00 - 0.50 | EXTERNAL | | | Eosinophils | performed at [facility], [address] | [address] | LAB | | | | [address], | | | | | | [place] [address] | | | | + + + + + + | Absolute | 0.10Comment: Testing | 0.00 - 0.10 | EXTERNAL | | | Basophils | performed at [facility], [address] | K/uL | LAB | | | | [address], | | | | | | [place] [address] | | | | + + + [...] | | | | [place] [address] | | | | + + + + + + | K | 3.8Comment: Testing | 3.5 - 4.9 | EXTERNAL | | | | performed at [facility], [address] | mmol/L | LAB | | | | [address], | | | | | | [place] [address] | | | | + + + + + + | Cl | 105Comment: Testing | 99 - 109 mmol/L | EXTERNAL | | | | performed at [facility], [address] | | LAB | | | | [address], | | | | | | [place] [address] | | | | + + + + + + | CO2 | 25Comment: Testing | 23 - 32 mmol/L | EXTERNAL | | | | performed at [facility], [address] | | LAB | | | | [address], | | | | | | [place] [address] | | | | + + + + + + | Anion Gap | 12Comment: Testing | 5 - 20 mmol/L | EXTERNAL | | | | performed at [facility], [address] | | LAB | | | | [address], | | | | | | [place] [address] | | | | + + + + + + | Glucose, | 236 (H)Comment: Testing | 65 - 99 mg/dL | EXTERNAL | | | Fasting | performed at [facility], [address] | | LAB | | | | [address], | | | | | | [place] [address] | | | | + + + + + + | BUN | 6 (L)Comment: Testing | 8 - 25 mg/dL | EXTERNAL | | | | performed at [facility], [address] | | LAB | | | | [address], | | | | | | [place] [address] | | | | + + + + + + | Creatinine | 0.9Comment: Testing | 0.70 - 1.30 | EXTERNAL | | | | performed at [facility], [address] | mg/dL | LAB | | | | [address], | | | | | | [place] [address] | | | | + + + + + + | BUN/Creatin | 7Comment: Testing | | EXTERNAL | | | ine Ratio | performed at [facility], [address] | | LAB | | | | [address], | | | | | | [place] [address] | | | | + + + + + + | Calcium | 8.3 (L)Comment: Testing | 8.5 - 10.5 | EXTERNAL | | | | performed at [facility], [address] | mg/dL | LAB | | | | [address], | | | | | | [place] [address] | | | | + + + [...] Man, | | | | | | [place] [address] | | | | + + + [...] | | | Fingerstick | performed at [facility];88 | | LAB | | | | [address];[place] | | | | | | [address] | | | | + + + [...] | | | | | performed at [facility];[address] | | | | | | [address];[place] | | | | | | [address] | | | | + + + [...] | | | Fingerstick | performed at [facility];[address] | | LAB | | | | [address];[place], [place] | | | | | | [address] | | | | + + + [...] | | | Fingerstick | performed at [facility];[address] | | LAB | | | | [address];[place] | | | | | | [address] | | | | + + + [...] | | | Fingerstick | performed at [facility];[address] | | LAB | | | | [address];[place] | | | | | | [address] | | | | + + + [...] [place] | | | | | | [address] | | | | + + + + + + | RED CELL | 4.13 (L)Comment: Testing | 4.20 - 5.70 | EXTERNAL | | | COUNT | performed at [facility], [address] | M/uL | LAB | | | | [address], | | | | | | [place] [address] | | | | + + + + + + | Hgb | 11.7 (L)Comment: Testing | 13.2 - 17.0 | EXTERNAL | | | | performed at [facility], [address] | g/dL | LAB | | | | [address], | | | | | | [place] [address] | | | | + + + + + + | Hematocrit, | 34.8 (L)Comment: Testing | 39.0 - 50.0 % | EXTERNAL | | | POC | performed at [facility], [address] | | LAB | | | | [address], | | | | | | [place] [address] | | | | + + + + + + | MCV | 84.2Comment: Testing | 80.0 - 100.0 fl | EXTERNAL | | | | performed at [facility], [address] | | LAB | | | | [address], | | | | | | [place] [address] | | | | + + + + + + | MCH | 28.2Comment: Testing | 27.0 - 34.0 pg | EXTERNAL | | | | performed at [facility], [address] | | LAB | | | | [address], | | | | | | [place] [address] | | | | + + + + + + | MCHC | 33.5Comment: Testing | 32.0 - 35.5 | EXTERNAL | | | | performed at [facility], [address] | g/dL | LAB | | | | [address], | | | | | | [place] [address] | | | | + + + + + + | RDW-CV | 42.0Comment: Testing | 37 - 53 fl | EXTERNAL | | | | performed at [facility], [address] | | LAB | | | | [address], | | | | | | [place] [address] | | | | + + + + + + | Platelet | 329Comment: Testing | 150 - 400 K/uL | EXTERNAL | | | Count | performed at [facility], [address] | | LAB | | | Plasma | [address], | | | | | | [place] [address] | | | | + + + + + + | MPV | 7.9Comment: Testing | fl | EXTERNAL | | | | performed at [facility], [address] | | LAB | | | | [address], | | | | | | [place] [address] | | | | + + + + + + | Differentia | AUTOMATEDComment: | | EXTERNAL | | | l Type | Testing performed at | | LAB | | | | [facility], [address] | | | | | | [place] | | | | | | [address] | | | | + + + + + + | % Segmented | 83.29Comment: Testing | % | EXTERNAL | | | | performed at [facility], [address] | | LAB | | | Neutrophils | [address], | | | | | | [place] [address] | | | | + + + + + + | % | 8.71Comment: Testing | % | EXTERNAL | | | Lymphocytes | performed at [facility], [address] | | LAB | | | | [address], | | | | | | [place] [address] | | | | + + + + + + | % Monocytes | 5.08Comment: Testing | % | EXTERNAL | | | | performed at [facility], [address] | | LAB | | | | [address], | | | | | | [place] [address] | | | | + + + + + + | % | 2.32Comment: Testing | % | EXTERNAL | | | Eosinophils | performed at [facility], [address] | | LAB | | | | [address], | | | | | | [place] [address] | | | | + + + + + + | % Basophils | 0.60Comment: Testing | % | EXTERNAL | | | | performed at [facility], [address] | | LAB | | | | [address], | | | | | | [place] [address] | | | | + + + + + + | Absolute | 12.15 (H)Comment: | 1.90 - 7.40 | EXTERNAL | | | Segmented | Testing performed at | K/uL | LAB | | | Neutrophils | [facility], [address] | | | | | | [place] | | | | | | [address] | | | | + + + + + + | Absolute | 1.27Comment: Testing | 1.00 - 3.90 | EXTERNAL | | | Lymphocytes | performed at [facility], [address] | K/uL | LAB | | | | [address], | | | | | | [place] [address] | | | | + + + + + + | Absolute | 0.74Comment: Testing | 0.00 - 0.80 | EXTERNAL | | | Monocytes | performed at [facility], [address] | K/uL | LAB | | | | [address], | | | | | | [place] [address] | | | | + + + + + + | Absolute | 0.34Comment: Testing | 0.00 - 0.50 | EXTERNAL | | | Eosinophils | performed at [facility], [address] | K/uL | LAB | | | | [address], | | | | | | [place] [address] | | | | + + + + + + | Absolute | 0.09Comment: Testing | 0.00 - 0.10 | EXTERNAL | | | Basophils | performed at [facility], [address] | K/uL | LAB | | | | [address], | | | | | | [place] [address] | | | | + + + [...] | | | | [place] [address] | | | | + + + + + + | K | 3.8Comment: Testing | 3.5 - 4.9 | EXTERNAL | | | | performed at [facility], [address] | mmol/L | LAB | | | | [address], | | | | | | [place] [address] | | | | + + + + + + | Cl | 104Comment: Testing | 99 - 109 mmol/L | EXTERNAL | | | | performed at [facility], [address] | | LAB | | | | [address], | | | | | | [place] [address] | | | | + + + + + + | CO2 | 27Comment: Testing | 23 - 32 mmol/L | EXTERNAL | | | | performed at [facility], [address] | | LAB | | | | [address], | | | | | | [place] [address] | | | | + + + + + + | Anion Gap | 11Comment: Testing | 5 - 20 mmol/L | EXTERNAL | | | | performed at [facility], [address] | | LAB | | | | [address], | | | | | | [place] [address] | | | | + + + + + + | Glucose, | 196 (H)Comment: Testing | 65 - 99 mg/dL | EXTERNAL | | | Fasting | performed at [facility], [address] | | LAB | | | | [address], | | | | | | [place] [address] | | | | + + + + + + | BUN | 5 (L)Comment: Testing | 8 - 25 mg/dL | EXTERNAL | | | | performed at [facility], [address] | | LAB | | | | [address], | | | | | | [place] [address] | | | | + + + + + + | Creatinine | 0.9Comment: Testing | 0.70 - 1.30 | EXTERNAL | | | | performed at [facility], [address] | mg/dL | LAB | | | | [address], | | | | | | [place] [address] | | | | + + + + + + | BUN/Creatin | 6Comment: Testing | | EXTERNAL | | | ine Ratio | performed at [facility], [address] | | LAB | | | | [address], | | | | | | [place] [address] | | | | + + + + + + | Calcium | 8.4 (L)Comment: Testing | 8.5 - 10.5 | EXTERNAL | | | | performed at [facility], [address] | mg/dL | LAB | | | | [address], | | | | | | [place] [address] | | | | + + + [...] | | | | | | at [facility], [address] | | | | | | [address], | | | | | | [place] [address] | | | | + + + [...] | | | Fingerstick | performed at [facility];[address] | | LAB | | | | [address];[place] | | | | | | [address] | | | | + + + [...] | | | Fingerstick | performed at [facility];8 | | LAB | | | | [address];[place] | | | | | | [address] | | | | + + + [...] | | | | | performed at [facility] | | | | | | [facility];[place], [place] | | | | | | [address] | | | | + + + [...] | | | Fingerstick | performed at [facility];[address] | | LAB | | | | [address];[place] | | | | | | [address] | | | | + + + [...] | | | Fingerstick | performed at [facility];[address] | | LAB | | | | [address];[place], [place] | | | | | | [address] | | | | + + + [...] | | | | [facility], [address] [facility] | | | | | | [place] | | | | | | [address] | | | | + + + + + + | RED CELL | 4.31Comment: Testing | 4.20 - 5.70 | EXTERNAL | | | COUNT | performed at [facility], [address] | M/uL | LAB | | | | [address], | | | | | | [place] [address] | | | | + + + + + + | Hgb | 12.3 (L)Comment: Testing | 13.2 - 17.0 | EXTERNAL | | | | performed at [facility], [address] | g/dL | LAB | | | | [address], | | | | | | [place] [address] | | | | + + + + + + | Hematocrit, | 36.4 (L)Comment: Testing | 39.0 - 50.0 % | EXTERNAL | | | POC | performed at [facility], [address] | | LAB | | | | [address], | | | | | | [place] [address] | | | | + + + + + + | MCV | 84.5Comment: Testing | 80.0 - 100.0 fl | EXTERNAL | | | | performed at [facility], [address] | | LAB | | | | [address], | | | | | | [place] [address] | | | | + + + + + + | MCH | 28.5Comment: Testing | 27.0 - 34.0 pg | EXTERNAL | | | | performed at [facility], [address] | | LAB | | | | [address], | | | | | | [place] [address] | | | | + + + + + + | MCHC | 33.8Comment: Testing | 32.0 - 35.5 | EXTERNAL | | | | performed at [facility], [address] | g/dL | LAB | | | | [address], | | | | | | [place] [address] | | | | + + + + + + | RDW-CV | 42.9Comment: Testing | 37 - 53 fl | EXTERNAL | | | | performed at [facility], [address] | | LAB | | | | [address], | | | | | | [place] [address] | | | | + + + + + + | Platelet | 307Comment: Testing | 150 - 400 K/uL | EXTERNAL | | | Count | performed at [facility], [address] | | LAB | | | Plasma | [address], | | | | | | [place] [address] | | | | + + + + + + | MPV | 8.0Comment: Testing | fl | EXTERNAL | | | | performed at [facility], [address] | | LAB | | | | [address], | | | | | | [place] [address] | | | | + + + + + + | Differentia | AUTOMATEDComment: | | EXTERNAL | | | l Type | Testing performed at | | LAB | | | | [facility], [address] | | | | | | [place] | | | | | | [address] | | | | + + + + + + | % Segmented | 85.00Comment: Testing | % | EXTERNAL | | | | performed at [facility], [address] | | LAB | | | Neutrophils | [address], | | | | | | [place] [address] | | | | + + + + + + | % | 7.15Comment: Testing | % | EXTERNAL | | | Lymphocytes | performed at [facility], [address] | | LAB | | | | [address], | | | | | | [place] [address] | | | | + + + + + + | % Monocytes | 5.39Comment: Testing | % | EXTERNAL | | | | performed at [facility], [address] | | LAB | | | [address], | | | | | | [place] [address] | | | | + + + + + + | % | 1.86Comment: Testing | % | EXTERNAL | | | Eosinophils | performed at [facility], [address] | | LAB | | | [address], | | | | | | [place] [address] | | | | + + + + + + | % Basophils | 0.60Comment: Testing | % | EXTERNAL | | | | performed at [facility], [address] | | LAB | | | | [address], | | | | | | [place] [address] | | | | + + + + + + | Absolute | 13.51 (H)Comment: | 1.90 - 7.40 | EXTERNAL | | | Segmented | Testing performed at | K/uL | LAB | | | Neutrophils | [facility], [address] | | | | | | [place] | | | | | | [address] | | | | + + + + + + | Absolute | 1.14Comment: Testing | 1.00 - 3.90 | EXTERNAL | | | Lymphocytes | performed at [facility], [address] | K/uL | LAB | | | | [address], | | | | | | [place] [address] | | | | + + + + + + | Absolute | 0.86 (H)Comment: Testing | 0.00 - 0.80 | EXTERNAL | | | Monocytes | performed at [facility], [address] | [address] | LAB | | | | [address], | | | | | | [place] [address] | | | | + + + + + + | Absolute | 0.30Comment: Testing | 0.00 - 0.50 | EXTERNAL | | | Eosinophils | performed at [facility], [address] | K/uL | LAB | | | | [address], | | | | | | [place] [address] | | | | + + + + + + | Absolute | 0.10Comment: Testing | 0.00 - 0.10 | EXTERNAL | | | Basophils | performed at [facility], [address] | K/uL | LAB | | | | [address], | | | | | | [place] [address] | | | | + + + [...] EXTERNAL | | | | performed at [facility], [address] | mmol/L | LAB | | | | [address], | | | | | | [place] [address] | | | | + + + + + + | K | 4.0Comment: Testing | 3.5 - 4.9 | EXTERNAL | | | | performed at [facility], [address] | mmol/L | LAB | | | | [address], | | | | | | [place] [address] | | | | + + + + + + | Cl | 103Comment: Testing | 99 - 109 mmol/L | EXTERNAL | | | | performed at [facility], [address] | | LAB | | | | [address], | | | | | | [place] [address] | | | | + + + + + + | CO2 | 24Comment: Testing | 23 - 32 mmol/L | EXTERNAL | | | | performed at [facility], [address] | | LAB | | | | [address], | | | | | | [place] [address] | | | | + + + + + + | Anion Gap | 14Comment: Testing | 5 - 20 mmol/L | EXTERNAL | | | | performed at [facility], [address] | | LAB | | | | [address], | | | | | | [place] [address] | | | | + + + + + + | Glucose, | 207 (H)Comment: Testing | 65 - 99 mg/dL | EXTERNAL | | | Fasting | performed at [facility], [address] | | LAB | | | | [address], | | | | | | [place] [address] | | | | + + + + + + | BUN | 7 (L)Comment: Testing | 8 - 25 mg/dL | EXTERNAL | | | | performed at [facility], [address] | | LAB | | | | [address], | | | | | | [place] [address] | | | | + + + + + + | Creatinine | 0.9Comment: Testing | 0.70 - 1.30 | EXTERNAL | | | | performed at [facility], [address] | mg/dL | LAB | | | | [address], | | | | | | [place] [address] | | | | + + + + + + | BUN/Creatin | 8Comment: Testing | | EXTERNAL | | | ine Ratio | performed at [facility], [address] | | LAB | | | | [address], | | | | | | [place] [address] | | | | + + + + + + | Calcium | 8.2 (L)Comment: Testing | 8.5 - 10.5 | EXTERNAL | | | | performed at [facility], [address] | mg/dL | LAB | | | | [address], | | | | | | [place] [address] | | | | + + + [...] W | | | | | | [address], | | | | | | [place] [address] | | | | + + + [...] | | | Fingerstick | performed at [facility];[address] | | LAB | | | | [address];[place], [place] | | | | | | [address] | | | | + + + [...] with a red-brown discoloration of the bone. Automated Access Systems Technician | | | sections are submitted in cassette B1 and placed into decal prior to | | | processing. [facility] MICROSCOPIC EXAMINATION: A-B. Histologic | | | sections of all submitted blocks are examined by light microscopy. | | | These findings, together with the gross examination, support the | | | pathologic diagnosis. PERFORMING LABORATORY: Professional | | | interpretation and technical preparation was performed by [facility] | | | [facility], [address], | | | [place] [address] (Box Order Person: Rafat Lorenzo M.D.; [facility]#: | | | [id number]). Diagnostician: Isi Gore MD Pathologist | | [...] | | | Fingerstick | performed at [facility];[address] | | LAB | | | | [address];[place] | | | | | | [address] | | | | + + + [...] | | | Fingerstick | performed at [facility];[address] | | LAB | | | | [address];[place], [place] | | | | | | [address] | | | | + + + [...] | | | Fingerstick | performed at [facility];[address] | | LAB | | | | [address];[place] | | | | | | [address] | | | | + + + [...] EXTERNAL | | | | performed at [facility];[address] | | LAB | | | | [address];[place] | | | | | | [address] | | | | + + + + + + | PCO2 ART | 32 (L)Comment: Testing | 35 - 45 mmHg | EXTERNAL | | | | performed at [facility];[address] | | LAB | | | | [address];[place] | | | | | | [address] | | | | + + + + + + | PO2 ART | 81Comment: Testing | 80 - 105 mmHg | EXTERNAL | | | | performed at [facility];[address] | | LAB | | | | [address];[place] | | | | | | [address] | | | | + + + + + + | Lactate, | <0.30 (L)Comment: | 0.36 - 1.25 | EXTERNAL | | | Arterial | Testing performed at | mmol/L | LAB | | | | [address] | | [address];[place] [address] | | | | + + + + + + | HCO3 ART | 19 (L)Comment: Testing | 22 - 26 mmol/L | EXTERNAL | | | | performed at [facility];[address] | | LAB | | | | [address];[place] | | | | | | [address] | | | | + + + + + + | POC | 20 (L)Comment: Testing | 23 - 27 mEq/L | EXTERNAL | | | APPEARANCE | performed at [facility];[address] | | LAB | | | UA | [address];[place] | | | | | | [address] | | | | + + + + + + | Base | 6 (H)Comment: Testing | 0.0 - 2.0 | EXTERNAL | | | deficit | performed at [facility];[address] | mmol/L | LAB | | | | [address];[place] | | | | | | [address] | | | | + + + + + + | O2 SAT ART | 96Comment: Testing | 95 - 98 % | EXTERNAL | | | | performed at [facility];[address] | | LAB | | | | [address];[place] | | | | | | [address] | | | | + + + + + + | FiO2, POC | 21Comment: Testing | % | EXTERNAL | | | | performed at [facility];[address] | | LAB | | | | [address];[place] | | | | | | [address] | | | | + + + [...] EXTERNAL | | | | performed at [facility];[address] | mmol/L | LAB | | | | [address];[place], [place] | | | | | | [address] | | | | + + + [...] | | | Fingerstick | performed at [facility];8 | | LAB | | | | [address];[place], [place] | | | | | | [address] | | | | + + + [...] EXTERNAL | | | | performed at [facility], [address] | | LAB | | | | [address], | | | | | | [place] [address] | | | | + + + + + + | Clarity | CLEARComment: Testing | | EXTERNAL | | | | performed at [facility], [address] | | LAB | | | | [address], | | | | | | [place] [address] | | | | + + + + + + | Specific | 1.022Comment: Testing | 1.002 - 1.030 | EXTERNAL | | | [place] | performed at [facility], [address] | | LAB | | | | [address], | | | | | | [place] [address] | | | | + + + + + + | Leukocyte | NEGATIVEComment: | | EXTERNAL | | | Esterase, | Testing performed at | | LAB | | | Urine | [facility], [address] | | | | | | [place] | | | | | | [address] | | | | + + + + + + | Nitrite, | NEGATIVEComment: Testing | | EXTERNAL | | | Urine | performed at [facility], [address] | | LAB | | | | [address], | | | | | | [place] [address] | | | | + + + + + + | Urobilinoge | NORMALComment: Testing | mg/dL | EXTERNAL | | | n, Urine | performed at [facility], [address] | | LAB | | | | [address], | | | | | | [place] [address] | | | | + + + + + + | Protein, | NEGATIVEComment: Testing | mg/dL | EXTERNAL | | | Urine | performed at [facility], [address] | | LAB | | | | [address], | | | | | | [place] [address] | | | | + + + + + + | pH, Urine | 6.0Comment: Testing | 5.0 - 8.0 | EXTERNAL | | | | performed at [facility], [address] | | LAB | | | | [address], | | | | | | [place] [address] | | | | + + + + + + | Blood, | NEGATIVEComment: Testing | | EXTERNAL | | | Urine | performed at [facility], [address] | | LAB | | | | [address], | | | | | | [place] [address] | | | | + + + + + + | Ketones | NEGATIVEComment: Testing | mg/dL | EXTERNAL | | | | performed at [facility], [address] | | LAB | | | | [address], | | | | | | [place] [address] | | | | + + + + + + | Bilirubin, | NEGATIVEComment: Testing | | EXTERNAL | | | Urine | performed at [facility], [address] | | LAB | | | | [address], | | | | | | [place] [address] | | | | + + + + + + | Glucose, | >500 (A)Comment: Testing | mg/dL | EXTERNAL | | | Urine | performed at [facility], [address] | | LAB | | | | [address], | | | | | | [place] [address] | | | | + + + [...] | | LAB | | | | [facility] [place];[address];[place] [address] | | | | + + + + + + | PCO2 ART | 56 (H)Comment: Testing | 35 - 45 mmHg | EXTERNAL | | | | performed at [facility] [place];[address] | | LAB | | | | [address];[place] | | | | | | [address] | | | | + + + + + + | PO2 ART | 74 (L)Comment: Testing | 80 - 105 mmHg | EXTERNAL | | | | performed at [facility] [place];[address] | | LAB | | | | [address];[place] | | | | | | [address] | | | | + + + + + + | Lactate, | 7.11 (H)Comment: Testing | 0.36 - 1.25 | EXTERNAL | | | Arterial | performed at [facility] [place];[address] | mmol/L | LAB | | | | [address];[place] | | | | | | [address] | | | | + + + + + + | HCO3 ART | 9 (L)Comment: Testing | 22 - 26 mmol/L | EXTERNAL | | | | performed at [facility] [place];[address] | | LAB | | | | [address];[place] | | | | | | [address] | | | | + + + + + + | POC | 11 (L)Comment: Testing | 23 - 27 mEq/L | EXTERNAL | | | APPEARANCE | performed at [facility] [place];[address] | | LAB | | | [address] | [address];[place] | | | | | | [address] | | | | + + + + + + | Base | 25 (H)Comment: Testing | 0.0 - 2.0 | EXTERNAL | | | deficit | performed at [facility];[address] | mmol/L | LAB | | | | [address];[place] | | | | | | [address] | | | | + + + + + + | O2 SAT ART | 77 (L)Comment: Testing | 95 - 98 % | EXTERNAL | | | | performed at [facility];[address] | | LAB | | | | [address];[place] | | | | | | [address] | | | | + + + + + + | FiO2, POC | 100Comment: Testing | % | EXTERNAL | | | | performed at [facility];[address] | | LAB | | | | [address];[place] | | | | | | [address] | | | | + + + [...] [place] | | | | | | [address] | | | | + + + + + + | RED CELL | 4.04 (L)Comment: Testing | 4.20 - 5.70 | EXTERNAL | | | COUNT | performed at [facility], [address] | M/uL | LAB | | | | [address], | | | | | | [place] [address] | | | | + + + + + + | Hgb | 11.4 (L)Comment: Testing | 13.2 - 17.0 | EXTERNAL | | | | performed at [facility], [address] | g/dL | LAB | | | | [address], | | | | | | [place] [address] | | | | + + + + + + | Hematocrit, | 35.1 (L)Comment: Testing | 39.0 - 50.0 % | EXTERNAL | | | POC | performed at [facility], [address] | | LAB | | | | [address], | | | | | | [place] [address] | | | | + + + + + + | MCV | 86.7Comment: Testing | 80.0 - 100.0 fl | EXTERNAL | | | | performed at [facility], [address] | | LAB | | | | [address], | | | | | | [place] [address] | | | | + + + + + + | MCH | 28.2Comment: Testing | 27.0 - 34.0 pg | EXTERNAL | | | | performed at [facility], [address] | | LAB | | | [address], | | | | | | [place] [address] | | | | + + + + + + | MCHC | 32.5Comment: Testing | 32.0 - 35.5 | EXTERNAL | | | | performed at [facility], [address] | g/dL | LAB | | | | [address], | | | | | | [place] [address] | | | | + + + + + + | RDW-CV | 42.0Comment: Testing | 37 - 53 fl | EXTERNAL | | | | performed at [facility], [address] | | LAB | | | | [address], | | | | | | [place] [address] | | | | + + + + + + | Platelet | 262Comment: Testing | 150 - 400 K/uL | EXTERNAL | | | Count | performed at [facility], [address] | | LAB | | | Plasma | [address], | | | | | | [place] [address] | | | | + + + + + + | MPV | 8.4Comment: Testing | fl | EXTERNAL | | | | performed at [facility], [address] | | LAB | | | | [address], | | | | | | [place] [address] | | | | + + + + + + | Differentia | AUTOMATEDComment: | | EXTERNAL | | | l Type | Testing performed at | | LAB | | | | [facility], [address] | | | | | | [place] | | | | | | [address] | | | | + + + + + + | % Segmented | 82.60Comment: Testing | % | EXTERNAL | | | | performed at [facility], [address] | | LAB | | | Neutrophils | [address], | | | | | | [place] [address] | | | | + + + + + + | % | 7.47Comment: Testing | % | EXTERNAL | | | Lymphocytes | performed at [facility], [address] | | LAB | | | | [address], | | | | | | [place] [address] | | | | + + + + + + | % Monocytes | 6.29Comment: Testing | % | EXTERNAL | | | | performed at [facility], [address] | | LAB | | | | [address], | | | | | | [place] [address] | | | | + + + + + + | % | 3.29Comment: Testing | % | EXTERNAL | | | Eosinophils | performed at [facility], [address] | | LAB | | | | [address], | | | | | | [place] [address] | | | | + + + + + + | % Basophils | 0.35Comment: Testing | % | EXTERNAL | | | | performed at [facility], [address] | | LAB | | | | [address], | | | | | | [place] [address] | | | | + + + [...] | | | | [place] [address] | | | | + + + + + + | Absolute | 1.06 (H)Comment: Testing | 0.00 - 0.80 | EXTERNAL | | | Monocytes | performed at [facility], [address] | K/uL | LAB | | | | [address], | | | | | | [place] [address] | | | | + + + + + + | Absolute | 0.56 (H)Comment: Testing | 0.00 - 0.50 | EXTERNAL | | | Eosinophils | performed at [facility], [address] | K/uL | LAB | | | | [address], | | | | | | [place] [address] | | | | + + + + + + | Absolute | 0.06Comment: Testing | 0.00 - 0.10 | EXTERNAL | | | Basophils | performed at [facility], [address] | K/uL | LAB | | | | [address], | | | | | | [place] [address] | | | | + + + [...] EXTERNAL | | | | performed at [facility], [address] | | LAB | | | | [address], | | | | | | [place] [address] | | | | + + + [...] EXTERNAL | | | | performed at [facility], [address] | | LAB | | | | [address], | | | | | | [place] [address] | | | | + + + [...] | EXTERNAL | | | A1c | [place] [employer] | | LAB | | | [...] | | | | | performed at [facility], [address] | | | | | | [address] [facility], | | | | | | [place] [address] | | | | + + + [...] | | | | | performed at [facility], [address] | | | | | | [facility], | | | | | | [place] [address] | | | | + + + [...] | | | | [place] [address] | | | | + + + + + + | K | 4.6Comment: Testing | 3.5 - 4.9 | EXTERNAL | | | | performed at [facility], [address] | mmol/L | LAB | | | | [address], | | | | | | [place] [address] | | | | + + + + + + | Cl | 103Comment: Testing | 99 - 109 mmol/L | EXTERNAL | | | | performed at [facility], [address] | | LAB | | | | [address], | | | | | | [place] [address] | | | | + + + + + + | CO2 | 22 (L)Comment: Testing | 23 - 32 mmol/L | EXTERNAL | | | | performed at [facility], [address] | | LAB | | | | [address], | | | | | | [place] [address] | | | | + + + + + + | Anion Gap | 14Comment: Testing | 5 - 20 mmol/L | EXTERNAL | | | | performed at [facility], [address] | | LAB | | | | [address], | | | | | | [place] [address] | | | | + + + + + + | Glucose, | 392 (H)Comment: Testing | 65 - 99 mg/dL | EXTERNAL | | | Fasting | performed at [facility], [address] | | LAB | | | | [address], | | | | | | [place] [address] | | | | + + + + + + | BUN | 12Comment: Testing | 8 - 25 mg/dL | EXTERNAL | | | | performed at [facility], [address] | | LAB | | | | [address], | | | | | | [place] [address] | | | | + + + + + + | Creatinine | 1.0Comment: Testing | 0.70 - 1.30 | EXTERNAL | | | | performed at [facility], [address] | mg/dL | LAB | | | | [address], | | | | | | [place] [address] | | | | + + + + + + | BUN/Creatin | 12Comment: Testing | | EXTERNAL | | | ine Ratio | performed at [facility], [address] | | LAB | | | | [address], | | | | | | [place] [address] | | | | + + + + + + | Calcium | 7.6 (L)Comment: Testing | 8.5 - 10.5 | EXTERNAL | | | | performed at [facility], [address] | mg/dL | LAB | | | | [address], | | | | | | [place] [address] | | | | + + + + + + | Protein, | 6.4Comment: Testing | 6.3 - 8.2 g/dL | EXTERNAL | | | Total | performed at [facility], [address] | | LAB | | | | [address], | | | | | | [place] [address] | | | | + + + + + + | Albumin | 2.2 (L)Comment: Testing | 3.6 - 5.0 g/dL | EXTERNAL | | | | performed at [facility], [address] | | LAB | | | | [address], | | | | | | [place] [address] | | | | + + + + + + | Globulin | 4.2Comment: Testing | 1.3 - 4.9 g/dL | EXTERNAL | | | | performed at [facility], [address] | | LAB | | | | [address], | | | | | | [place] [address] | | | | + + + + + + | A/G Ratio | 0.5 (L)Comment: Testing | 1.0 - 2.4 | EXTERNAL | | | | performed at [facility], [address] | | LAB | | | | [address], | | | | | | [place] [address] | | | | + + + + + + | Bilirubin | 0.6Comment: Testing | 0.1 - 1.5 mg/dL | EXTERNAL | | | Total | performed at [facility], [address] | | LAB | | | | [address], | | | | | | [place] [address] | | | | + + + + + + | ALP, | 182 (H)Comment: Testing | 35 - 115 U/L | EXTERNAL | | | External | performed at [facility], [address] | | LAB | | | | [address], | | | | | | [place] [address] | | | | + + + + + + | AST | 9 (L)Comment: Testing | 10 - 45 U/L | EXTERNAL | | | | performed at [facility], [address] | | LAB | | | | [address], | | | | | | [place] [address] | | | | + + + + + + | ALT | 16Comment: Testing | 10 - 65 U/L | EXTERNAL | | | | performed at [facility], [address] | | LAB | | | | [address], | | | | | | [place] [address] | | | | + + + [...] | | | | | | at [facility], [address] | | | | | | [address], | | | | | | [place] [address] | | | | + + + [...] | | | Fingerstick | performed at [facility];[address] | | LAB | | | | [address];[place], [place] | | | | | | [address] | | | | + + + [...] EXTERNAL LAB | | Testing performed at [facility];[address] [place] [address];[place] [address] MRSA PCR | | | POSITIVE for MRSA by PCRAbnormal | | | Testing performed at [address];[place] [address] | | + + + + +---------+ [...] | | | Fingerstick | performed at [facility];[address] | | LAB | | | | [address];[place] | | | | | | [address] | | | | + + + [...] EXTERNAL | | | | performed at [facility];[address] | mmol/L | LAB | | | | [address];[place] | | | | | | [address] | | | | + + + + + + | K | 4.0Comment: Testing | 3.5 - 4.9 | EXTERNAL | | | | performed at [facility];[address] | mmol/L | LAB | | | | [address];[place] | | | | | | [address] | | | | + + + + + + | Cl | 104Comment: Testing | 99 - 109 mmol/L | EXTERNAL | | | | performed at [facility];[address] | | LAB | | | | [address];[place] | | | | | | [address] | | | | + + + + + + | CO2 | 21 (L)Comment: Testing | 23 - 32 mmol/L | EXTERNAL | | | | performed at [facility];[address] | | LAB | | | | [address];[place] | | | | | | [address] | | | | + + + + + + | Anion Gap | 13Comment: Testing | 5 - 20 mmol/L | EXTERNAL | | | | performed at [facility];[address] | | LAB | | | | [address];[place] | | | | | | [address] | | | | + + + + + + | Glucose, | 254 (H)Comment: Testing | 65 - 99 mg/dL | EXTERNAL | | | Fasting | performed at [facility];[address] | | LAB | | | | [address];[place] | | | | | | [address] | | | | + + + + + + | BUN | 12Comment: Testing | 8 - 25 mg/dL | EXTERNAL | | | | performed at [facility];[address] | | LAB | | | | [address];[place] | | | | | | [address] | | | | + + + + + + | Creatinine | 0.95Comment: Testing | 0.70 - 1.30 | EXTERNAL | | | | performed at [facility];[address] | mg/dL | LAB | | | | [address];[place] | | | | | | [address] | | | | + + + + + + | BUN/Creatin | 13Comment: Testing | | EXTERNAL | | | ine Ratio | performed at [facility];[address] | | LAB | | | | [address];[place] | | | | | | [address] | | | | + + + + + + | Calcium | 6.9 (L)Comment: Testing | 8.5 - 10.5 | EXTERNAL | | | | performed at [facility];888 | mg/dL | LAB | | | | [address];[place] | | | | | | [address] | | | | + + + + + + | Protein, | 6.3Comment: Testing | 6.3 - 8.2 g/dL | EXTERNAL | | | Total | performed at [facility];[address] | | LAB | | | | [address];[place] | | | | | | [address] | | | | + + + + + + | Albumin | 2.1 (L)Comment: Testing | 3.6 - 5.0 g/dL | EXTERNAL | | | | performed at [facility];[address] | | LAB | | | | [address];[place] | | | | | | [address] | | | | + + + + + + | Globulin | 4.2Comment: Testing | 1.3 - 4.9 g/dL | EXTERNAL | | | | performed at [facility];[address] | | LAB | | | | [address];[place] | | | | | | [address] | | | | + + + + + + | A/G Ratio | 0.5 (L)Comment: Testing | 1.0 - 2.4 | EXTERNAL | | | | performed at [facility];[address] | | LAB | | | | [address];[place] | | | | | | [address] | | | | + + + + + + | Bilirubin | 0.4Comment: Testing | 0.1 - 1.5 mg/dL | EXTERNAL | | | Total | performed at [facility];[address] | | LAB | | | | [address];[place] | | | | | | [address] | | | | + + + + + + | ALP, | 181 (H)Comment: Testing | 35 - 115 U/L | EXTERNAL | | | External | performed at [facility];[address] | | LAB | | | | [address];[place] | | | | | | [address] | | | | + + + + + + | AST | 10Comment: Testing | 10 - 45 U/L | EXTERNAL | | | | performed at [facility];[address] | | LAB | | | | [address];[place] | | | | | | [address] | | | | + + + + + + | ALT | 14Comment: Testing | 10 - 65 U/L | EXTERNAL | | | | performed at [facility];[address] | | LAB | | | | [address];[place] | | | | | | [address] | | | | + + + [...] | | | | | | at [facility];[address];[place] [address] | | | | + + + [...] 9:30AM Referring Provider Line: | | | [phone] ID: [id number] | | + + + [...] | | 2016 9:30AM Referring Provider Line: [phone] ID: [id number] | + + POC Glucose (12/14/2016 11:34 PM PDT) + + + + + + | Component | Value | Ref Range | Performed | Pathologist | | | | | At | Signature | + + + + + + | Glucose, | 172 (H)Comment: Testing | 65 - 99 mg/dL | EXTERNAL | | | Fingerstick | performed at [facility];[address] | | LAB | | | | [address];[place], [place] | | | | | | [address] | | | | + + + [...] EXTERNAL | | | | performed at [facility];[address] | mmol/L | LAB | | | | [address];[place], [place] | | | | | | [address] | | | | + + + [...] | | | Blood | performed at [facility];[address] | | LAB | | | | [address];[place], [place] | | | | | | [address] | | | | + + + [...] EXTERNAL | | | | performed at [facility] | | LAB | | | | [address];[place] | | | | | | [address] | | | | + + + [...] K/uL | LAB | | | | [facility];[address];[place] [address] | | | | + + + + + + | RED CELL | 4.20Comment: Testing | 4.20 - 5.70 | EXTERNAL | | | COUNT | performed at [facility];[address] | M/uL | LAB | | | | [address];[place] | | | | | | [address] | | | | + + + + + + | Hgb | 12.4 (L)Comment: Testing | 13.2 - 17.0 | EXTERNAL | | | | performed at [facility];[address] | g/dL | LAB | | | | [address];[place] | | | | | | [address] | | | | + + + + + + | Hematocrit, | 36.3 (L)Comment: Testing | 39.0 - 50.0 % | EXTERNAL | | | POC | performed at [facility];[address] | | LAB | | | | [address];[place] | | | | | | [address] | | | | + + + + + + | MCV | 86.5Comment: Testing | 80.0 - 100.0 fl | EXTERNAL | | | | performed at [facility];[address] | | LAB | | | | [address];[place] | | | | | | [address] | | | | + + + + + + | MCH | 29.4Comment: Testing | 27.0 - 34.0 pg | EXTERNAL | | | | performed at [facility];[address] | | LAB | | | | [address];[place] | | | | | | [address] | | | | + + + + + + | MCHC | 34.0Comment: Testing | 32.0 - 35.5 | EXTERNAL | | | | performed at [facility];[address] | g/dL | LAB | | | | [address];[place] | | | | | | [address] | | | | + + + + + + | RDW-CV | 42.9Comment: Testing | 37 - 53 fl | EXTERNAL | | | | performed at [facility];[address] | | LAB | | | | [address];[place] | | | | | | [address] | | | | + + + + + + | Platelet | 258Comment: Testing | 150 - 400 K/uL | EXTERNAL | | | Count | performed at [facility];[address] | | LAB | | | Plasma | [address];[place] | | | | | | [address] | | | | + + + + + + | MPV | 8.3Comment: Testing | fl | EXTERNAL | | | | performed at [facility];[address] | | LAB | | | | [address];[place] | | | | | | [address] | | | | + + + + + + | Differentia | AUTOMATEDComment: | | EXTERNAL | | | l Type | Testing performed at | | LAB | | | | [facility];[address];[place] [address] | | | | + + + + + + | % Segmented | 87.43Comment: Testing | % | EXTERNAL | | | | performed at [facility];[address] | | LAB | | | Neutrophils | [address];[place] | | | | | | [address] | | | | + + + + + + | % | 5.56Comment: Testing | % | EXTERNAL | | | Lymphocytes | performed at [facility];[address] | | LAB | | | | [address];[place] | | | | | | [address] | | | | + + + + + + | % Monocytes | 4.36Comment: Testing | % | EXTERNAL | | | | performed at [facility];[address] | | LAB | | | | [address];[place] | | | | | | [address] | | | | + + + + + + | % | 1.84Comment: Testing | % | EXTERNAL | | | Eosinophils | performed at [facility];[address] | | LAB | | | | [address];[place] | | | | | | [address] | | | | + + + + + + | % Basophils | 0.81Comment: Testing | % | EXTERNAL | | | | performed at [facility];[address] | | LAB | | | | [address];[place] | | | | | | [address] | | | | + + + + + + | Absolute | 17.02 (H)Comment: | 1.90 - 7.40 | EXTERNAL | | | Segmented | Testing performed at | K/uL | LAB | | | Neutrophils | [facility];[address];[place] [address] | | | | + + + + + + | Absolute | 1.08Comment: Testing | 1.00 - 3.90 | EXTERNAL | | | Lymphocytes | performed at [facility];[address] | K/uL | LAB | | | | [address];[place] | | | | | | [address] | | | | + + + + + + | Absolute | 0.85 (H)Comment: Testing | 0.00 - 0.80 | EXTERNAL | | | Monocytes | performed at [facility];[address] | K/uL | LAB | | | | [address];[place] | | | | | | [address] | | | | + + + + + + | Absolute | 0.36Comment: Testing | 0.00 - 0.50 | EXTERNAL | | | Eosinophils | performed at [facility];[address] | K/uL | LAB | | | | [address];[place] | | | | | | [address] | | | | + + + + + + | Absolute | 0.16 (H)Comment: Testing | 0.00 - 0.10 | EXTERNAL | | | Basophils | performed at [facility];[address] | K/uL | LAB | | | | [address];[place] | | | | | | [address] | | | | + + + + + + | RBC | RBC AND PLT MORPHOLOGY | | EXTERNAL | | | Morphology | APPEAR NORMALComment: | | LAB | | | | Testing performed at | | | | | | [facility];[address];[place] [address] | | | | + + + + + + | Platelet | ADEQUATEComment: Testing | | EXTERNAL | | | Estimate | performed at [facility];[address] | | LAB | | | | [address];[place] | | | | | | [address] | | | | + + + + + + | Differentia | SLIDE SCANNED, AGREES | | EXTERNAL | | | l Comments | WITH AUTOMATED | | LAB | | | | RESULTS.Comment: Testing | | | | | | performed at [facility];[address] | | | | | | [address];[place], [place] | | | | | | [address] | | | | + + + [...] EXTERNAL | | | | performed at [facility] | | LAB | | | | [address];[place], [place] | | | | | | [address] | | | | + + + [...] EXTERNAL | | | | performed at [facility];[address] | mmol/L | LAB | | | | [address];[place] | | | | | | [address] | | | | + + + + + + | K | 5.1 (H)Comment: MODERATE | 3.5 - 4.9 | EXTERNAL | | | | HEMOLYSISTesting | mmol/L | LAB | | | | performed at [facility];[address] | | | | | | [address];[place] | | | | | | [address] | | | | + + + + + + | Cl | 93 (L)Comment: Testing | 99 - 109 mmol/L | EXTERNAL | | | | performed at [facility];[address] | | LAB | | | | [address];[place] | | | | | | [address] | | | | + + + + + + | CO2 | 23Comment: Testing | 23 - 32 mmol/L | EXTERNAL | | | | performed at [facility];[address] | | LAB | | | | [address];[place] | | | | | | [address] | | | | + + + + + + | Anion Gap | 14Comment: Testing | 5 - 20 mmol/L | EXTERNAL | | | | performed at [facility];[address] | | LAB | | | | [address];[place] | | | | | | [address] | | | | + + + + + + | Glucose, | 635 (HH)Comment: CALLED | 65 - 99 mg/dL | EXTERNAL | | | Fasting | DR LING COUCH | | LAB | | | | AT 2216 BY RHREAD BACK | | | | | | RESULTS VERIFIEDTesting | | | | | | performed at [facility];[address] | | | | | | [address];[place] | | | | | | [address] | | | | + + + + + + | BUN | 13Comment: Testing | 8 - 25 mg/dL | EXTERNAL | | | | performed at [facility];[address] | | LAB | | | | [address];[place] | | | | | | [address] | | | | + + + + + + | Creatinine | 1.4 (H)Comment: Testing | 0.70 - 1.30 | EXTERNAL | | | | performed at [facility];888 | mg/dL | LAB | | | | [address];[place] | | | | | | [address] | | | | + + + + + + | BUN/Creatin | 10Comment: Testing | | EXTERNAL | | | ine Ratio | performed at [facility];[address] | | LAB | | | | [address];[place] | | | | | | [address] | | | | + + + + + + | Calcium | 7.9 (L)Comment: Testing | 8.5 - 10.5 | EXTERNAL | | | | performed at [facility];888 | mg/dL | LAB | | | | [address];[place] | | | | | | [address] | | | | + + + + + + | Protein, | 7.7Comment: Testing | 6.3 - 8.2 g/dL | EXTERNAL | | | Total | performed at [facility];[address] | | LAB | | | | [address];[place] | | | | | | [address] | | | | + + + + + + | Albumin | 2.6 (L)Comment: Testing | 3.6 - 5.0 g/dL | EXTERNAL | | | | performed at [facility];[address] | | LAB | | | | [address];[place] | | | | | | [address] | | | | + + + + + + | Globulin | 5.1 (H)Comment: Testing | 1.3 - 4.9 g/dL | EXTERNAL | | | | performed at [facility];[address] | | LAB | | | | [address];[place] | | | | | | [address] | | | | + + + + + + | A/G Ratio | 0.5 (L)Comment: Testing | 1.0 - 2.4 | EXTERNAL | | | | performed at [facility];[address] | | LAB | | | | [address];[place] | | | | | | [address] | | | | + + + + + + | Bilirubin | 0.6Comment: Testing | 0.1 - 1.5 mg/dL | EXTERNAL | | | Total | performed at [facility];[address] | | LAB | | | | [address];[place] | | | | | | [address] | | | | + + + + + + | ALP, | 259 (H)Comment: Testing | 35 - 115 U/L | EXTERNAL | | | External | performed at [facility];[address] | | LAB | | | | [address];[place] | | | | | | [address] | | | | + + + + + + | AST | 17Comment: MODERATE | 10 - 45 U/L | EXTERNAL | | | | HEMOLYSISTesting | | LAB | | | | performed at [facility];[address] | | | | | | [address];[place] | | | | | | [address] | | | | + + + + + + | ALT | 17Comment: Testing | 10 - 65 U/L | EXTERNAL | | | | performed at [facility];[address] | | LAB | | | | [address];[place] | | | | | | [address] | | | | + + + [...] | | | | | | at [facility];[address] [facility] | | | | | | [facility];[place] [address] | | | | + + + [...] type 2 diabetes mellitus with hyperglycemia, unspecified continuous churn buttermaker | | insulin use status | + [...]
--- OUTSIDE RECORDS SUMMARY | ~2019-10-09 | XMS | Encounter Summary ---
Demographics + + + | Address | [address] | | | [place] [address] | + + + | Home Phone [...] Team Providers + +------+ + | Care Pottery Striper Name | Role | Phone | + +------+ + | Estrella Light PA-C | PCP | | + +------+ + Encounter Details +--------+ + + + + | Date | Type | Department | Care Team | Description | +--------+ + + + + | 09/22/ | Anesthesia | [facility] | Ilya Dodge | | | 2015 | Event | [facility] | MD Ebonie [address] | | | | | [address] | [facility] | | | | | [place] | [place] [address] | | | | | [address] | [phone] | | | | | [phone] | | | +--------+ + + + [...]
--- OUTSIDE RECORDS SUMMARY | ~2019-10-09 | XMS | Encounter Summary ---
Demographics + + + | Address | [address] | | | [place] [address] | + + + | Home Phone [...] + + + | Author | [facility] | | | and [place] | + + + | Organization | [facility] | | | and [...] Team Providers + +------+ + | Care Middle School English Teacher Name | Role | Phone | [...] + + | 04/12/ | Telephone | [facility] | Avi Forde MD | Hosp No [facility] | | 2015 | | GASTROENTEROLOGY | [address], [place] | (egds,colon) | | | | [address] [place] | [address] [place] | | | | | [address] [place], [place] | [address] | | | | | [address] | | | | | | [phone] | | | +--------+ + + + [...]
--- OUTSIDE RECORDS SUMMARY | ~2019-10-09 | XMS | Encounter Summary ---
Demographics + + + | Address | [address] | | | [place] [address] | + + + | Home Phone [...] Team Providers + +------+ + | Care Prepared Foods Supervisor Name | Role | Phone | + +------+ + | Estrella Light PA-C | PCP | | + +------+ + Encounter Details +--------+ + + + + | Date | Type | Department | Care Team | Description | +--------+ + + + + | 09/04/ | Abstract | [facility] | Avi Forde MD | | | 2014 | | GASTROENTEROLOGY | [address], [place] | | | | | [address] [place] | [address] | | | | | [address] [place], [place] | [address] | | | | | [address] | | | | | | [phone] | | | +--------+ + + + [...]
--- OUTSIDE RECORDS SUMMARY | ~2019-10-09 | XMS | Clinical Summary ---
Demographics + + + | Address | [address] | | | [place] [address] | + + + | Home Phone | | + + + | Preferred Language | Unknown | + + + | Marital Status | Single | + + + | Anglican Affiliation | 1077 | + + + | Race | Unknown | + + + | Ethnic Group | Unknown | + + + Author + + + | Author | [facility] (Historical as of | | | 05-18-19) | + + + | Organization | [facility] (Historical as of | | | 05-18-19) [...] Providers + +------+ + | Care Production Line Manager Name | Role | Phone | [...] right foot, limited to breakdown of skin ([facility]) | 01/13/2018 | + + + | Cellulitis and abscess of foot | 12/15/2016 | + + + | Osteomyelitis ([facility]) | 12/15/2016 | + + + | Essential hypertension | 03/04/2015 | + + + | Type 2 diabetes mellitus, with long-term current use of insulin | 03/04/2015 | | ([facility]) | | + + + Family [...] +------+-------+ + | MEDICAID | [place] | [id number] | | | [address] | | | [address] | | | | [place], [place] | | | [place] | | | | [address] | | | [employer]ER | | | | | + +--------+ +------+-------+ + | [facility] | YELLOW | [id number] | | | | | PLANS | [...] | Self | [birth year] | Home: | [address] | | | al/Fam | | 1965 | [phone] | [place], [place] | | | vikas | | | [address] | [address] | + +--------+ +--------+ + + | [employer] [facility] | Third | Self | [birth year] | Home: | [address] | | | Democrat | | 1964 | [phone] | [place], [place] | | | Liabil | | | [address] | [address] | | | ity | | | | | + +--------+ +--------+ + +
--- OUTSIDE RECORDS SUMMARY | ~2019-10-09 | XMS | Encounter Summary ---
Demographics + + + | Address | [address] | | | [place] [address] | + + + | Home Phone [...] | + + +---------+ + | Yasmany Simth | ECON | Unknown | | + + +---------+ + | Katherine Duran | ECON | Unknown | | + + +---------+ + | Sarah Hanson | ECON | Unknown | | + + +---------+ + Care Team Providers + +------+ + | Care Machine Shop Helper Name | Role | Phone | [...] 2016 | | GASTROENTEROLOGY | [address], [place] | | | | | [address] [place] | [address] | | | | | [address] [place], [place] | [address] | | | | | [address] | | | | | | [phone] | | | +--------+ + + + [...]
--- OUTSIDE RECORDS SUMMARY | ~2019-10-09 | XMS | Encounter Summary ---
Demographics + + + | Address | [address] | | | [place] [address] | + + + | Home Phone | | + + + | Preferred Language | Unknown | + + + | Marital Status | Single | + + + | Lutheran Affiliation | 1077 | + + + [...] Team Providers + +------+ + | Care Bobbin Cleaner Name | Role | Phone | [...] + | 04/12/ | Telephone | [facility] | Avi Forde MD | Hosp No Show | | 2015 | | GASTROENTEROLOGY | [address], [place] | (egds,colon) | | | | [address] [place] | [address] | | | | | [address] [place], [place] | [address] | | | | | [address] | | | | | | [phone] | | | +--------+ + + + [...]
--- OUTSIDE RECORDS SUMMARY | ~2019-10-09 | XMS | Encounter Summary ---
Demographics + + + | Address | [address] | | | [place] [address] | + + + | Home Phone | | + + + | Preferred Language | Unknown | + + + | Marital Status | Single | + + + | Temple Affiliation | 1077 | + + + [...] Team Providers + +------+ + | Care Demonstrator Knitting Name | Role | Phone | + [...] [address] | ([facility]); Uncontrolled | | 12/20/ | | [address] | [place] [address] | type 2 diabetes | | 2017 | | [place], [place] | [phone] | mellitus with | | | | [address] | | hyperglycemia, | | | | [phone] | | unspecified long | | | | | | term insulin use | | | | | | status ([facility]); Renal | | | | | | [...] 1933 Date of Service: 12/20/161538 Status: Addendum Boiler Cleaner: Bunny Chaney MD (Physician) Related Notes: Original Note by Bunny Chaney MD (Physician) filed at 12/26/16 0644 [facility] Service: Hospitalist Physician Discharge Summary Patient ID: Kuldip Smith [id number] y.o. 1965 Admit date: 12/14/2016 Discharge [...] been approved, which should be given from [facility] ec until further approval from insurance. Also [...] up: Estrella Light PA-C [address] [place] [address] Rebeca Reza MD [address] [facility] [address] Schedule an appointment as soon as possible for a visit in 10 days Dictation and donor services specialist or software, [employer], used which may contain error for similar [...] - AMPUTATION; Surgeon: Walter Fernandez DPM; Location: [facility] OR; Service: Podiatry; Laterality: Left; Significant [...] Management by Jenny Vaughan RN at 12/20/16 0357 Author: Jenny Vaughan RN Service: (none) Author Type: Registered Nurse Filed: 12/20/16 5626 Date of Service: 12/20/161538 Status: Signed Boiler Cleaner: Jenny Vaughan RN (Registered Nurse) 1610 - Received call from [facility] stating they are now unable to accept pa tient due to a "freeze on admits". They are aware patient has been discharged and is en rou te to home. They are still unable to accept. Call placed to [facility] OPP rega rding need for services. They state pt will need to arrange wound care/dressing changes thr ough his PCP per insurance requirements. Voicemail left for Coby at [facility] to return call. Will need to call back in morning to schedule appointment as clinic is currently closed. onver ruben Transaction, Provider Unknown - 12/20/2016 3:39 PM PDT Case Management by Mirlande Prescott RN at 12/20/16 0471 Author: Mirlande Prescott RN Service: (none) Author Type: Registered Nurse Filed: 12/21/16 0808 Date of Service: 12/20/16 1539 Status: Signed Boiler Cleaner: Mirlande Prescott RN (Registered Nurse) 0800: Tc to pt's PCP, Coby Light, with [facility], to updat e about [facility] not being able to admit pt. Coby states she and Charlotte will work on getting pt the appropriate wound vac care he needs, they are going to try and get pt into O P wound therapy with [facility] or maybe to OP in [place]. Coby states she will als o call [facility] as to when they can admit pt under their services. Maribel onver ruben Transaction, Provider Unknown - 12/20/2016 1:03 PM PDT Progress Notes by Rachael Molina RN at 12/20/16 1303 Author: Rachael Molina RN Service: Wound/Ostomy Care Author Type: Registered Nurse Filed: 12/20/16 1311 Date of Service: 12/20/16 1303 Status: Signed Boiler Cleaner: Rachael Molina RN (Registered Nurse) Wound care in to switch patient out to portable wound vac unit. This is a sol vac on l oan from [facility]. Explained to patient when his insurance approves [...] in [facility] express: #[id number] Rachael Molina RN, ON 12/20/2016 1:10 PM onver ruben Transaction, Provider Unknown - 12/20/2016 11:34 AM PDT Case Management by Mirlande Prescott RN at 12/20/16 1134 Author: Mirlande Prescott RN Service: (none) Author Type: Registered Nurse Filed: 12/20/16 1459 Date of Service: 12/20/16 1134 Status: Addendum Boiler Cleaner: Mirlande Prescott RN (Registered Nurse) Related Notes: Original Note by Mirlande Prescott RN (Registered Nurse) filed at 12/20/16 114 9 Per rounding with pt, he will be d/c home today. Pt states his mother will be providing tra nsportation home. Wound vac has been approved by [facility] emergency department. [facility] has been set up, and they have been notified about d/c, pt may not be able t o be admitted until . Pt's wound dressing is due Monday. Tc to Angie with wound care, it's not ideal that pt's dressing doesn't get changed until , but it is ok to wait. Dr Chaney was notified and agrees with plan. Tc to Coby [phone] and Charlotte [phone] with [facility]/mannie pickens nd left mssgs of pt's d/c Today. Faxed AVS to [facility] Maribel Irqa Mcgregor PT - 12/20/2016 10:07 AM PDTFormatting of this note might be different from th e original. Therapy Progress Note by Karina Zabala PT at 12/20/16 1007 Author: Karina Zabala PT Service: (none) Author Type: Physical Therapist Filed: 12/20/16 1037 Date of Service: 12/20/16 1007 Status: Signed Boiler Cleaner: Karina Zabala PT (Physical Therapist) 12/20/16 1007 [...] (none) Author Type: Physical Therapist Filed: 12/19/16 7636 Date of Service: 12/19/166 Status: Signed Boiler Cleaner: Natalia Marte PT (Physical Therapist) 12/19/16 1646 PT Last Visit PT Received On 12/19/16 Reason for Treatment Other (comment) (L foot osteomyelitis) Requires PT Follow Up Awaiting tx order Follow up PT Only? Yes (Assistive device assessment) Focus for Next Treatment Equipment Trial;Stair Training (bilateral axillary crutches and stair training) PT Eval/Reassessment Date 12/19/16 Assistance Required 1 person Telephoner Needed No Home Environment Type of Home Home one story Home Exterior Layout 1-3 steps (2 JEISON) Home Interior Layout Lives on main level with bedroom/bathroom Bathroom Shower/Tub Tub/shower unit Bathroom Toilet Raised Bathroom Equipment Grab bars outside of shower/bath;Raised toilet seat Bathroom Accessibility Not accessible Home Equipment Cane single point;Crutches-axillary Prior Function Level of [place] Independent with ADLs;Independent with IADLs;Modified independent wi [...] Eval/Reassessment Date 12/19/16 Assistance Required 1 person Telephoner Needed No Precautions LE Precaution(s) LLE Precautions/WB [...] 11:45 AM PDT Progress Notes by Rebeca Reaz MD at 12/19/16 8903 Author: Rebeca Reza MD Service: Infectious Disease Author Type: Physician Filed: 12/20/16 0639 Date of Service: 12/19/16 1039 Status: Signed Boiler Cleaner: Rebeca Reza MD (Physician) [facility] [...] Dec 15 2016 9:30AM Referring Provider Line: [phone] ID: [id number] MRI foot left without contrast [[id number]] Impression 1. Recent amputation of the LEFT 4th toe. 2. No radiographic evidence of residual osteomyelitis in the remaining ossicles of the LEF T forefoot. 3. Moderately extensive vascular calcifications. X-ray foot left [[id number]] PROBLEM LIST Principal Problem: Osteomyelitis (HCC) Active [...] Date of Service: 12/19/16 1103 Status: Signed Boiler Cleaner: Dell Archer DO (Physician) PROGRESS NOTE 12/19/2016 [...] 1103 Date of Service: 12/19/16914 Status: Addendum Boiler Cleaner: Jenny Vaughan RN (Registered Nurse) Related Notes: Original Note by Jenny Vaughan RN (Registered Nurse) filed at 12/19/16 1 [phone] - [facility]. She wi ll be following patient once [...] accept patient. Face to face order faxed ([phone]) Charlotte [facility] RN [phone] Alicia with [facility] notified of wound vac placement. Auth form signed by hospitalist and faxed to Alicia. Lilly with [facility] notified of patient discharging on oral antibiotics. onver ruben Transaction, Provider Unknown - 12/18/2016 6:45 PM PDT Nurse Progress Note by Gerber Hay RN at 12/18/161844 Author: Gerber Hay RN Service: (none) Author Type: Registered Nurse Filed: 12/18/161847 Date of Service: 12/18/161844 Status: Signed Boiler Cleaner: Gerber Hay RN (Registered Nurse) Pt resting comfortably, tx with hydromorphone for pain x3. VSS. Will continue to monitor. GERBER HAY RN Dell Jones DO - 12/18/2016 9:29 AM PDTFormatting of this note might be different from the akr ginal. Progress Notes by Dell Archer DO at 12/18/16928 Author: Dell Archer DO Service: Hospitalist Author Type: Physician Filed: 12/18/16933 Date of Service: 12/18/16928 Status: Addendum Boiler Cleaner: Dell Archer DO (Physician) Related Notes: Original [...] 12/18/16899 Date of Service: 12/18/16854 Status: Signed Boiler Cleaner: Walter Fernandez DPM (Doctor of Podiatric Medicine) [...] home health care. Dr. David DPM in [place] take s care of this patient and [...] 12/18/16845 Date of Service: 12/18/16845 Status: Signed Boiler Cleaner: Destini Vargas RPH (Pharmacist) Day 5 Vanco [...] 1108 Date of Service: 12/18/16820 Status: Signed Boiler Cleaner: Rebeca Reza MD (Physician) [facility] [...] Dec 15 2016 9:30AM Referring Provider Line: [phone] ID: [id number] MRI foot left without contrast [[id number]] Impression 1. Recent amputation of the LEFT 4th toe. 2. No radiographic evidence of residual osteomyelitis in the remaining ossicles of the LEF T forefoot. 3. Moderately extensive vascular calcifications. X-ray foot left [[id number]] PROBLEM LIST Principal Problem: Osteomyelitis (HCC) Active [...] Note by Jihan Jacinto RPH at 12/17/16 3239 Author: Jihan Jacinto RPH Service: Pharmacy Author Type: Pharmacist Filed: 12/17/162246 Date of Service: 12/17/162246 Status: Signed Boiler Cleaner: Jihan Jacinto RPH (Pharmacist) Clinical Pharmacy Note: [...] PM PDT Nurse Progress Note by Gerber Hya RN at 12/17/161742 Author: Gerber Hay RN Service: (none) Author Type: Registered Nurse Filed: 12/17/161750 Date of Service: 12/17/161742 Status: Signed Boiler Cleaner: Gerber Hay RN (Registered Nurse) Wound vac [...] Notes by Rebeca Reza MD at 12/17/16 5340 Author: Rebeca Reza MD Service: Infectious Disease Author Type: Physician Filed: 12/17/16 1708 Date of Service: 12/17/16 1510 Status: Addendum Boiler Cleaner: Rebeca Reza MD (Physician) Related Notes: Original Note by Rebeca Reza MD (Physician) filed at 12/17/16 0268 [facility] Service: Infectious Disease [...] Dec 15 2016 9:30AM Referring Provider Line: [phone] ID: [id number] MRI foot left without contrast [[id number]] Impression 1. Recent amputation of the LEFT 4th toe. 2. No radiographic evidence of residual osteomyelitis in the remaining ossicles of the LEF T forefoot. 3. Moderately extensive vascular calcifications. X-ray foot left [[id number]] PROBLEM LIST Principal Problem: Osteomyelitis (HCC) Active [...] Doctor of Podiatric Medi cine Filed: 12/17/16 6934 Date of Service: 12/17/16 1406 Status: Signed Boiler Cleaner: Walter Fernandez DPM (Doctor of Podiatric Medicine) [...] Note by Gerber Hay RN at 12/17/16 8536 Author: Gerber Hay RN Service: (none) Author Type: Registered Nurse Filed: 12/17/16 5302 Date of Service: 12/17/16 1144 Status: Signed Boiler Cleaner: Gerber Hay RN (Registered Nurse) Pt had [...] Filed: 12/17/16 1103 Date of Service: 12/17/16 105 Status: Signed Boiler Cleaner: Dell Archer DO (Physician) PROGRESS NOTE 12/17/2016 [...] 12/17/16834 Date of Service: 12/17/16834 Status: Signed Boiler Cleaner: Destini Vargas RPH (Pharmacist) Day 4 Vanco [...] 12/17/168 Date of Service: 12/17/16307 Status: Signed Boiler Cleaner: Jihan Jacinto RPH (Pharmacist) Clinical Pharmacy Note: [...] 12/16/161719 Date of Service: 12/16/161709 Status: Signed Boiler Cleaner: Walter Fernandez DPM (Doctor of Podiatric Medicine) [...] Notes by Rebeca Reza MD at 12/16/16 6235 Author: Rebeca Reza MD Service: Infectious Disease Author Type: Physician Filed: 12/16/16 1606 Date of Service: 12/16/165 Status: Signed Boiler Cleaner: Rebeca Reza MD (Physician) [facility] [...] Dec 15 2016 9:30AM Referring Provider Line: [phone] ID: [id number] MRI foot left without contrast [[id number]] Impression 1. Recent amputation of the LEFT 4th toe. 2. No radiographic evidence of residual osteomyelitis in the remaining ossicles of the LEF T forefoot. 3. Moderately extensive vascular calcifications. X-ray foot left [[id number]] PROBLEM LIST Principal Problem: Osteomyelitis (HCC) Active [...] Management by Jenny Vaughan RN at 12/16/16 8070 Author: Jenny Vaughan RN Service: (none) Author Type: Registered Nurse Filed: 12/16/16 2727 Date of Service: 12/16/16 6669 Status: Signed Boiler Cleaner: Jenny Comfort, RN (Registered Nurse) 12/16/16 0250 Discharge Planning Evaluation Admitting Diagnosis osteomyelitis Readmission No Living Arrangements Parent Support Systems Parent;Family members Type of Residence Private residence House type House-1 story Steps to enter 2 Independent with ADL's Yes Independent with Mobility Yes Mental Status Oriented Prior functional status not employed, independent Power of Real Estate Account Executive No Anticipated Discharge Plan Post Acute Care [...] PCP is: Estrella Light PA-C Patient's insurance: Medicare/[facility] Coverage concerns: None Medication coverage/concerns: None Community resources utilized / needed: TBD pending pt progress and treatment plan. Sascha garcia need home health services along with IV abx. Discussed with patient and he states und erstanding. Referral sent to [facility] for nursing services as patient lives in [place]. Options for home IV abx services provided to pt/family and they do not have a preference. Referral to [facility] will follow. Pt/family requested I notify Coby at the [facility] of pt status as she ar ranges services for them. Contacted Coby and provided current discharge plan. If there is a change in plan, Coby requests to be notified as she will continue to follow patient after discharge. She also states pt will be followed by their community health nurse (Charlotte ) who works alongside [facility]. Coby [facility] [phone] Assistance in transportation: Pt's family is able [...] Date of Service: 12/16/16 1012 Status: Signed Boiler Cleaner: Dell Archer DO (Physician) PROGRESS NOTE 12/16/2016 [...] Date of Service: 12/15/16 1248 Status: Signed Boiler Cleaner: Jenny Vaughan RN (Registered Nurse) Attempted to [...] 12/15/16405 Date of Service: 12/15/16405 Status: Signed Boiler Cleaner: Jihan Jacinto RPH (Pharmacist) Clinical Pharmacy Note: [...] 12/15/16404 Date of Service: 12/15/16404 Status: Signed Boiler Cleaner: Jihan Jacinto RPH (Pharmacist) Clinical Pharmacy Note: [...] | | | Fingerstick | performed at [facility];88 | | LAB | | | | [address];[place] | | | | | | [address] | | | | + + + [...] EXTERNAL | | | | performed at [facility];[address] | | LAB | | | | [address];[place], [place] | | | | | | [address] | | | | + + + [...] EXTERNAL | | | | performed at [facility];888 | K/uL | LAB | | | | [address];[place] | | | | | | [address] | | | | + + + + + + | RED CELL | 4.00 (L)Comment: Testing | 4.20 - 5.70 | EXTERNAL | | | COUNT | performed at [facility];888 | M/uL | LAB | | | | [address];[place] | | | | | | [address] | | | | + + + + + + | Hgb | 11.6 (L)Comment: Testing | 13.2 - 17.0 | EXTERNAL | | | | performed at [facility];888 | g/dL | LAB | | | | [address];[place] | | | | | | [address] | | | | + + + + + + | Hematocrit, | 33.9 (L)Comment: Testing | 39.0 - 50.0 % | EXTERNAL | | | POC | performed at [facility];[address] | | LAB | | | | [address];[place] | | | | | | [address] | | | | + + + + + + | MCV | 84.7Comment: Testing | 80.0 - 100.0 fl | EXTERNAL | | | | performed at [facility];[address] | | LAB | | | | [address];[place] | | | | | | [address] | | | | + + + + + + | MCH | 28.9Comment: Testing | 27.0 - 34.0 pg | EXTERNAL | | | | performed at [facility];[address] | | LAB | | | | [address];[place] | | | | | | [address] | | | | + + + + + + | MCHC | 34.1Comment: Testing | 32.0 - 35.5 | EXTERNAL | | | | performed at [facility];888 | g/dL | LAB | | | | [address];[place] | | | | | | [address] | | | | + + + + + + | RDW-CV | 42.0Comment: Testing | 37 - 53 fl | EXTERNAL | | | | performed at [facility];[address] | | LAB | | | | [address];[place] | | | | | | [address] | | | | + + + + + + | Platelet | 392Comment: Testing | 150 - 400 K/uL | EXTERNAL | | | Count | performed at [facility];888 | | LAB | | | Plasma | [address];[place] | | | | | | [address] | | | | + + + + + + | MPV | 7.0Comment: Testing | fl | EXTERNAL | | | | performed at [facility];[address] | | LAB | | | | [address];[place] | | | | | | [address] | | | | + + + + + + | Differentia | MANUALComment: Testing | | EXTERNAL | | | l Type | performed at [facility];[address] | | LAB | | | | [address];[place] | | | | | | [address] | | | | + + + + + + | Segmented | 69Comment: Testing | % | EXTERNAL | | | Neutrophils | performed at [facility];[address] | | LAB | | | Manual | [address];[place] | | | | | | [address] | | | | + + + + + + | Lymphocytes | 21Comment: Testing | % | EXTERNAL | | | Manual | performed at [facility];[address] | | LAB | | | | [address];[place] | | | | | | [address] | | | | + + + + + + | Monocytes | 4Comment: Testing | % | EXTERNAL | | | Manual | performed at [facility];[address] | | LAB | | | | [address];[place] | | | | | | [address] | | | | + + + + + + | Eosinophils | 6Comment: Testing | % | EXTERNAL | | | Manual | performed at [facility];[address] | | LAB | | | | [address];[place] | | | | | | [address] | | | | + + + + + + | Absolute | 5.08Comment: Testing | 1.90 - 7.40 | EXTERNAL | | | Neutrophils | performed at [facility];888 | K/uL | LAB | | | | [address];[place] | | | | | | [address] | | | | + + + + + + | Absolute | 1.55Comment: Testing | 1.00 - 3.90 | EXTERNAL | | | Lymphocytes | performed at [facility];888 | K/uL | LAB | | | | [address];[place] | | | | | | [address] | | | | + + + + + + | Absolute | 0.29Comment: Testing | 0.00 - 0.80 | EXTERNAL | | | Monocytes | performed at [facility];888 | K/uL | LAB | | | | [address];[place] | | | | | | [address] | | | | + + + + + + | Absolute | 0.44Comment: Testing | 0.00 - 0.50 | EXTERNAL | | | Eosinophils | performed at [facility];888 | K/uL | LAB | | | | [address];[place] | | | | | | [address] | | | | + + + + + + | RBC | NORMALComment: Testing | | EXTERNAL | | | Morphology | performed at [facility];[address] | | LAB | | | | [address];[place] | | | | | | [address] | | | | + + + [...] EXTERNAL | | | | performed at [facility];[address] | | LAB | | | | [address];[place] | | | | | | [address] | | | | + + + [...] | | | Fingerstick | performed at [facility];[address] | | LAB | | | | [address];[place], [place] | | | | | | [address] | | | | + + + [...] | | | Fingerstick | performed at [facility];[address] | | LAB | | | | [address];[place] | | | | | | [address] | | | | + + + [...] | | | Fingerstick | performed at [facility];[address] | | LAB | | | | [address];[place] | | | | | | [address] | | | | + + + [...] | | | Fingerstick | performed at [facility];888 | | LAB | | | | [address];[place] | | | | | | [address] | | | | + + + [...] | | | Fingerstick | performed at [facility];[address] | | LAB | | | | [address];[place], [place] | | | | | | [address] | | | | + + + [...] | | | Fingerstick | performed at [facility];[address] | | LAB | | | | [address];[place] | | | | | | [address] | | | | + + + [...] | | | Fingerstick | performed at [facility];[address] | | LAB | | | | [address];[place], [place] | | | | | | [address] | | | | + + + [...] | | | Fingerstick | performed at [facility];[address] | | LAB | | | | [address];[place] | | | | | | [address] | | | | + + + [...] | EXTERNAL LAB | | performed at [facility];[address] [place] [address];[place] [address] TOXIN A | | | NEGATIVE Testing performed at | | | [facility];[address] [facility];[place] [address] C DIFF INTERPRETATION | | | Negative for toxigenic C.difficile. Testing performed at | | | [facility];[address] [place] [address];[place] [address] | | + + + + +---------+ [...] | | | Fingerstick | performed at [facility];[address] | | LAB | | | | [address];[place] | | | | | | [address] | | | | + + + [...] EXTERNAL | | | | performed at [facility], [address] | K/uL | LAB | | | | [address], | | | | | | [place] [address] | | | | + + + + + + | RED CELL | 3.92 (L)Comment: Testing | 4.20 - 5.70 | EXTERNAL | | | COUNT | performed at [facility], [address] | M/uL | LAB | | | | [address], | | | | | | [place] [address] | | | | + + + + + + | Hgb | 11.2 (L)Comment: Testing | 13.2 - 17.0 | EXTERNAL | | | | performed at [facility], [address] | g/dL | LAB | | | | [address], | | | | | | [place] [address] | | | | + + + + + + | Hematocrit, | 33.6 (L)Comment: Testing | 39.0 - 50.0 % | EXTERNAL | | | POC | performed at [facility], [address] | | LAB | | | | [address], | | | | | | [place] [address] | | | | + + + + + + | MCV | 85.9Comment: Testing | 80.0 - 100.0 fl | EXTERNAL | | | | performed at [facility], [address] | | LAB | | | | [address], | | | | | | [place] [address] | | | | + + + + + + | MCH | 28.7Comment: Testing | 27.0 - 34.0 pg | EXTERNAL | | | | performed at [facility], [address] | | LAB | | | | [address], | | | | | | [place] [address] | | | | + + + + + + | MCHC | 33.4Comment: Testing | 32.0 - 35.5 | EXTERNAL | | | | performed at [facility], [address] | g/dL | LAB | | | | [address], | | | | | | [place] [address] | | | | + + + + + + | RDW-CV | 41.1Comment: Testing | 37 - 53 fl | EXTERNAL | | | | performed at [facility], [address] | | LAB | | | | [address], | | | | | | [place] [address] | | | | + + + + + + | Platelet | 341Comment: Testing | 150 - 400 K/uL | EXTERNAL | | | Count | performed at [facility], [address] | | LAB | | | Plasma | [address], | | | | | | [place] [address] | | | | + + + + + + | MPV | 7.6Comment: Testing | fl | EXTERNAL | | | | performed at [facility], [address] | | LAB | | | | [address], | | | | | | [place] [address] | | | | + + + + + + | Differentia | AUTOMATEDComment: | | EXTERNAL | | | l Type | Testing performed at | | LAB | | | | [facility], [address] | | | | | | [place] | | | | | | [address] | | | | + + + + + + | % Segmented | 76.22Comment: Testing | % | EXTERNAL | | | | performed at [facility], [address] | | LAB | | | Neutrophils | [address], | | | | | | [place] [address] | | | | + + + + + + | % | 12.04Comment: Testing | % | EXTERNAL | | | Lymphocytes | performed at [facility], [address] | | LAB | | | | [address], | | | | | | [place] [address] | | | | + + + + + + | % Monocytes | 6.15Comment: Testing | % | EXTERNAL | | | | performed at [facility], [address] | | LAB | | | [address], | | | | | | [place] [address] | | | | + + + + + + | % | 4.73Comment: Testing | % | EXTERNAL | | | Eosinophils | performed at [facility], [address] | | LAB | | | | [address], | | | | | | [place] [address] | | | | + + + + + + | % Basophils | 0.86Comment: Testing | % | EXTERNAL | | | | performed at [facility], [address] | | LAB | | | | [address], | | | | | | [place] [address] | | | | + + + + + + | Absolute | 8.38 (H)Comment: Testing | 1.90 - 7.40 | EXTERNAL | | | Segmented | performed at [facility], [address] | [address] | LAB | | | Neutrophils | [address], | | | | | | [place] [address] | | | | + + + + + + | Absolute | 1.32Comment: Testing | 1.00 - 3.90 | EXTERNAL | | | Lymphocytes | performed at [facility], [address] | [address] | LAB | | | | [address], | | | | | | [place] [address] | | | | + + + + + + | Absolute | 0.68Comment: Testing | 0.00 - 0.80 | EXTERNAL | | | Monocytes | performed at [facility], [address] | K[address] | LAB | | | | [address], | | | | | | [place] [address] | | | | + + + + + + | Absolute | 0.52 (H)Comment: Testing | 0.00 - 0.50 | EXTERNAL | | | Eosinophils | performed at [facility], [address] | [address] | LAB | | | | [address], | | | | | | [place] [address] | | | | + + + + + + | Absolute | 0.10Comment: Testing | 0.00 - 0.10 | EXTERNAL | | | Basophils | performed at [facility], [address] | [address] | LAB | | | | [address], | | | | | | [place] [address] | | | | + + + [...] | | | | [place] [address] | | | | + + + + + + | K | 3.8Comment: Testing | 3.5 - 4.9 | EXTERNAL | | | | performed at [facility], [address] | mmol/L | LAB | | | | [address], | | | | | | [place] [address] | | | | + + + + + + | Cl | 105Comment: Testing | 99 - 109 mmol/L | EXTERNAL | | | | performed at [facility], [address] | | LAB | | | | [address], | | | | | | [place] [address] | | | | + + + + + + | CO2 | 25Comment: Testing | 23 - 32 mmol/L | EXTERNAL | | | | performed at [facility], [address] | | LAB | | | | [address], | | | | | | [place] [address] | | | | + + + + + + | Anion Gap | 12Comment: Testing | 5 - 20 mmol/L | EXTERNAL | | | | performed at [facility], [address] | | LAB | | | | [address], | | | | | | [place] [address] | | | | + + + + + + | Glucose, | 236 (H)Comment: Testing | 65 - 99 mg/dL | EXTERNAL | | | Fasting | performed at [facility], [address] | | LAB | | | | [address], | | | | | | [place] [address] | | | | + + + + + + | BUN | 6 (L)Comment: Testing | 8 - 25 mg/dL | EXTERNAL | | | | performed at [facility], [address] | | LAB | | | | [address], | | | | | | [place] [address] | | | | + + + + + + | Creatinine | 0.9Comment: Testing | 0.70 - 1.30 | EXTERNAL | | | | performed at [facility], [address] | mg/dL | LAB | | | | [address], | | | | | | [place] [address] | | | | + + + + + + | BUN/Creatin | 7Comment: Testing | | EXTERNAL | | | ine Ratio | performed at [facility], [address] | | LAB | | | | [address], | | | | | | [place] [address] | | | | + + + + + + | Calcium | 8.3 (L)Comment: Testing | 8.5 - 10.5 | EXTERNAL | | | | performed at [facility], [address] | mg/dL | LAB | | | | [address], | | | | | | [place] [address] | | | | + + + [...] Man, | | | | | | [place] [address] | | | | + + + [...] | | | Fingerstick | performed at [facility];[address] | | LAB | | | | [address];[place] | | | | | | [address] | | | | + + + [...] | | | | | performed at [facility];[address] | | | | | | [address];[place] | | | | | | [address] | | | | + + + [...] | | | Fingerstick | performed at [facility];[address] | | LAB | | | | [address];[place], [place] | | | | | | [address] | | | | + + + [...] | | | Fingerstick | performed at [facility];[address] | | LAB | | | | [address];[place] | | | | | | [address] | | | | + + + [...] | | | Fingerstick | performed at [facility];[address] | | LAB | | | | [address];[place] | | | | | | [address] | | | | + + + [...] [place] | | | | | | [address] | | | | + + + + + + | RED CELL | 4.13 (L)Comment: Testing | 4.20 - 5.70 | EXTERNAL | | | COUNT | performed at [facility], [address] | [address]/u[address] | LAB | | | | [address], | | | | | | [place] [address] | | | | + + + + + + | Hgb | 11.7 (L)Comment: Testing | 13.2 - 17.0 | EXTERNAL | | | | performed at [facility], [address] | g/dL | LAB | | | | [address], | | | | | | [place] [address] | | | | + + + + + + | Hematocrit, | 34.8 (L)Comment: Testing | 39.0 - 50.0 % | EXTERNAL | | | POC | performed at [facility], [address] | | LAB | | | | [address], | | | | | | [place] [address] | | | | + + + + + + | MCV | 84.2Comment: Testing | 80.0 - 100.0 fl | EXTERNAL | | | | performed at [facility], [address] | | LAB | | | | [address], | | | | | | [place] [address] | | | | + + + + + + | MCH | 28.2Comment: Testing | 27.0 - 34.0 pg | EXTERNAL | | | | performed at [facility], [address] | | LAB | | | | [address], | | | | | | [place] [address] | | | | + + + + + + | MCHC | 33.5Comment: Testing | 32.0 - 35.5 | EXTERNAL | | | | performed at [facility], [address] | g/dL | LAB | | | | [address], | | | | | | [place] [address] | | | | + + + + + + | RDW-CV | 42.0Comment: Testing | 37 - 53 fl | EXTERNAL | | | | performed at [facility], [address] | | LAB | | | | [address], | | | | | | [place] [address] | | | | + + + + + + | Platelet | 329Comment: Testing | 150 - 400 K/uL | EXTERNAL | | | Count | performed at [facility], [address] | | LAB | | | Plasma | [address], | | | | | | [place] [address] | | | | + + + + + + | MPV | 7.9Comment: Testing | fl | EXTERNAL | | | | performed at [facility], [address] | | LAB | | | | [address], | | | | | | [place] [address] | | | | + + + + + + | Differentia | AUTOMATEDComment: | | EXTERNAL | | | l Type | Testing performed at | | LAB | | | | [facility], [address] | | | | | | [place] | | | | | | [address] | | | | + + + + + + | % Segmented | 83.29Comment: Testing | % | EXTERNAL | | | | performed at [facility], [address] | | LAB | | | Neutrophils | [address], | | | | | | [place] [address] | | | | + + + + + + | % | 8.71Comment: Testing | % | EXTERNAL | | | Lymphocytes | performed at [facility], [address] | | LAB | | | | [address], | | | | | | [place] [address] | | | | + + + + + + | % Monocytes | 5.08Comment: Testing | % | EXTERNAL | | | | performed at [facility], [address] | | LAB | | | | [address], | | | | | | [place] [address] | | | | + + + + + + | % | 2.32Comment: Testing | % | EXTERNAL | | | Eosinophils | performed at [facility], [address] | | LAB | | | | [address], | | | | | | [place] [address] | | | | + + + + + + | % Basophils | 0.60Comment: Testing | % | EXTERNAL | | | | performed at [facility], [address] | | LAB | | | | [address], | | | | | | [place] [address] | | | | + + + + + + | Absolute | 12.15 (H)Comment: | 1.90 - 7.40 | EXTERNAL | | | Segmented | Testing performed at | K/uL | LAB | | | Neutrophils | [facility], [address] | | | | | | [place] | | | | | | [address] | | | | + + + + + + | Absolute | 1.27Comment: Testing | 1.00 - 3.90 | EXTERNAL | | | Lymphocytes | performed at [facility], [address] | K/uL | LAB | | | | [address], | | | | | | [place] [address] | | | | + + + + + + | Absolute | 0.74Comment: Testing | 0.00 - 0.80 | EXTERNAL | | | Monocytes | performed at [facility], [address] | K/uL | LAB | | | | [address], | | | | | | [place] [address] | | | | + + + + + + | Absolute | 0.34Comment: Testing | 0.00 - 0.50 | EXTERNAL | | | Eosinophils | performed at [facility], [address] | [address] | LAB | | | [address], | | | | | | [place] [address] | | | | + + + + + + | Absolute | 0.09Comment: Testing | 0.00 - 0.10 | EXTERNAL | | | Basophils | performed at [facility], [address] | [address] | LAB | | | | [address], | | | | | | [place] [address] | | | | + + + [...] | | | | [place] [address] | | | | + + + + + + | K | 3.8Comment: Testing | 3.5 - 4.9 | EXTERNAL | | | | performed at [facility], [address] | mmol/L | LAB | | | | [address], | | | | | | [place] [address] | | | | + + + + + + | Cl | 104Comment: Testing | 99 - 109 mmol/L | EXTERNAL | | | | performed at [facility], [address] | | LAB | | | | [address], | | | | | | [place] [address] | | | | + + + + + + | CO2 | 27Comment: Testing | 23 - 32 mmol/L | EXTERNAL | | | | performed at [facility], [address] | | LAB | | | | [address], | | | | | | [place] [address] | | | | + + + + + + | Anion Gap | 11Comment: Testing | 5 - 20 mmol/L | EXTERNAL | | | | performed at [facility], [address] | | LAB | | | | [address], | | | | | | [place] [address] | | | | + + + + + + | Glucose, | 196 (H)Comment: Testing | 65 - 99 mg/dL | EXTERNAL | | | Fasting | performed at [facility], [address] | | LAB | | | | [address], | | | | | | [place] [address] | | | | + + + + + + | BUN | 5 (L)Comment: Testing | 8 - 25 mg/dL | EXTERNAL | | | | performed at [facility], [address] | | LAB | | | | [address], | | | | | | [place] [address] | | | | + + + + + + | Creatinine | 0.9Comment: Testing | 0.70 - 1.30 | EXTERNAL | | | | performed at [facility], [address] | mg/dL | LAB | | | | [address], | | | | | | [place] [address] | | | | + + + + + + | BUN/Creatin | 6Comment: Testing | | EXTERNAL | | | ine Ratio | performed at [facility], [address] | | LAB | | | | [address], | | | | | | [place] [address] | | | | + + + + + + | Calcium | 8.4 (L)Comment: Testing | 8.5 - 10.5 | EXTERNAL | | | | performed at [facility], [address] | mg/dL | LAB | | | | [address], | | | | | | [place] [address] | | | | + + + [...] | | | | | | at [facility], [address] | | | | | | [address], | | | | | | [place] [address] | | | | + + + [...] | | | Fingerstick | performed at [facility];[address] | | LAB | | | | [address];[place] | | | | | | [address] | | | | + + + [...] | | | Fingerstick | performed at [facility];8 | | LAB | | | | [address];[place] | | | | | | [address] | | | | + + + [...] | | | | | performed at [facility] | | | | | | [facility];[place], [place] | | | | | | [address] | | | | + + + [...] | | | Fingerstick | performed at [facility];[address] | | LAB | | | | [address];[place] | | | | | | [address] | | | | + + + [...] | | | Fingerstick | performed at [facility];[address] | | LAB | | | | [address];[place], [place] | | | | | | [address] | | | | + + + [...] | | | | [facility], [address] [facility] | | | | | | [place] | | | | | | [address] | | | | + + + + + + | RED CELL | 4.31Comment: Testing | 4.20 - 5.70 | EXTERNAL | | | COUNT | performed at [facility], [address] | M/uL | LAB | | | | [address], | | | | | | [place] [address] | | | | + + + + + + | Hgb | 12.3 (L)Comment: Testing | 13.2 - 17.0 | EXTERNAL | | | | performed at [facility], [address] | g/dL | LAB | | | | [address], | | | | | | [place] [address] | | | | + + + + + + | Hematocrit, | 36.4 (L)Comment: Testing | 39.0 - 50.0 % | EXTERNAL | | | POC | performed at [facility], [address] | | LAB | | | | [address], | | | | | | [place] [address] | | | | + + + + + + | MCV | 84.5Comment: Testing | 80.0 - 100.0 fl | EXTERNAL | | | | performed at [facility], [address] | | LAB | | | [address], | | | | | | [place] [address] | | | | + + + + + + | MCH | 28.5Comment: Testing | 27.0 - 34.0 pg | EXTERNAL | | | | performed at [facility], [address] | | LAB | | | | [address], | | | | | | [place] [address] | | | | + + + + + + | MCHC | 33.8Comment: Testing | 32.0 - 35.5 | EXTERNAL | | | | performed at [facility], [address] | g/dL | LAB | | | | [address], | | | | | | [place] [address] | | | | + + + + + + | RDW-CV | 42.9Comment: Testing | 37 - 53 fl | EXTERNAL | | | | performed at [facility], [address] | | LAB | | | | [address], | | | | | | [place] [address] | | | | + + + + + + | Platelet | 307Comment: Testing | 150 - 400 K/uL | EXTERNAL | | | Count | performed at [facility], [address] | | LAB | | | Plasma | [address], | | | | | | [place] [address] | | | | + + + + + + | MPV | 8.0Comment: Testing | fl | EXTERNAL | | | | performed at [facility], [address] | | LAB | | | | [address], | | | | | | [place] [address] | | | | + + + + + + | Differentia | AUTOMATEDComment: | | EXTERNAL | | | l Type | Testing performed at | | LAB | | | | [facility], [address] | | | | | | [place] | | | | | | [address] | | | | + + + + + + | % Segmented | 85.00Comment: Testing | % | EXTERNAL | | | | performed at [facility], [address] | | LAB | | | Neutrophils | [address], | | | | | | [place] [address] | | | | + + + + + + | % | 7.15Comment: Testing | % | EXTERNAL | | | Lymphocytes | performed at [facility], [address] | | LAB | | | | [address], | | | | | | [place] [address] | | | | + + + + + + | % Monocytes | 5.39Comment: Testing | % | EXTERNAL | | | | performed at [facility], [address] | | LAB | | | | [address], | | | | | | [place] [address] | | | | + + + + + + | % | 1.86Comment: Testing | % | EXTERNAL | | | Eosinophils | performed at [facility], [address] | | LAB | | | | [address], | | | | | | [place] [address] | | | | + + + + + + | % Basophils | 0.60Comment: Testing | % | EXTERNAL | | | | performed at [facility], [address] | | LAB | | | | [address], | | | | | | [place] [address] | | | | + + + + + + | Absolute | 13.51 (H)Comment: | 1.90 - 7.40 | EXTERNAL | | | Segmented | Testing performed at | K/uL | LAB | | | Neutrophils | [facility], [address] | | | | | | [place] | | | | | | [address] | | | | + + + + + + | Absolute | 1.14Comment: Testing | 1.00 - 3.90 | EXTERNAL | | | Lymphocytes | performed at [facility], [address] | K/uL | LAB | | | | [address], | | | | | | [place] [address] | | | | + + + + + + | Absolute | 0.86 (H)Comment: Testing | 0.00 - 0.80 | EXTERNAL | | | Monocytes | performed at [facility], [address] | [address] | LAB | | | | [address], | | | | | | [place] [address] | | | | + + + + + + | Absolute | 0.30Comment: Testing | 0.00 - 0.50 | EXTERNAL | | | Eosinophils | performed at [facility], [address] | K/uL | LAB | | | | [address], | | | | | | [place] [address] | | | | + + + + + + | Absolute | 0.10Comment: Testing | 0.00 - 0.10 | EXTERNAL | | | Basophils | performed at [facility], [address] | K/uL | LAB | | | | [address], | | | | | | [place] [address] | | | | + + + [...] EXTERNAL | | | | performed at [facility], [address] | mmol/L | LAB | | | | [address], | | | | | | [place] [address] | | | | + + + + + + | K | 4.0Comment: Testing | 3.5 - 4.9 | EXTERNAL | | | | performed at [facility], [address] | mmol/L | LAB | | | | [address], | | | | | | [place] [address] | | | | + + + + + + | Cl | 103Comment: Testing | 99 - 109 mmol/L | EXTERNAL | | | | performed at [facility], [address] | | LAB | | | | [address], | | | | | | [place] [address] | | | | + + + + + + | CO2 | 24Comment: Testing | 23 - 32 mmol/L | EXTERNAL | | | | performed at [facility], [address] | | LAB | | | | [address], | | | | | | [place] [address] | | | | + + + + + + | Anion Gap | 14Comment: Testing | 5 - 20 mmol/L | EXTERNAL | | | | performed at [facility], [address] | | LAB | | | | [address], | | | | | | [place] [address] | | | | + + + + + + | Glucose, | 207 (H)Comment: Testing | 65 - 99 mg/dL | EXTERNAL | | | Fasting | performed at [facility], [address] | | LAB | | | | [address], | | | | | | [place] [address] | | | | + + + + + + | BUN | 7 (L)Comment: Testing | 8 - 25 mg/dL | EXTERNAL | | | | performed at [facility], [address] | | LAB | | | | [address], | | | | | | [place] [address] | | | | + + + + + + | Creatinine | 0.9Comment: Testing | 0.70 - 1.30 | EXTERNAL | | | | performed at [facility], [address] | mg/dL | LAB | | | | [address], | | | | | | [place] [address] | | | | + + + + + + | BUN/Creatin | 8Comment: Testing | | EXTERNAL | | | ine Ratio | performed at [facility], [address] | | LAB | | | | [address], | | | | | | [place] [address] | | | | + + + + + + | Calcium | 8.2 (L)Comment: Testing | 8.5 - 10.5 | EXTERNAL | | | | performed at [facility], [address] | mg/dL | LAB | | | | [address], | | | | | | [place] [address] | | | | + + + [...] W | | | | | | [address], | | | | | | [place] [address] | | | | + + + [...] | | | Fingerstick | performed at [facility];[address] | | LAB | | | | [address];[place], [place] | | | | | | [address] | | | | + + + [...] with a red-brown discoloration of the bone. [employer] | | | sections are submitted in cassette B1 and placed into decal prior to | | | processing. [facility] MICROSCOPIC EXAMINATION: A-B. Histologic | | | sections of all submitted blocks are examined by light microscopy. | | | These findings, together with the gross examination, support the | | | pathologic diagnosis. PERFORMING LABORATORY: Professional | | | interpretation and technical preparation was performed by [facility] | | | [facility], [address], | | | [place] [address] (Inventory Assistant: Rafat Lorenzo M.D.; [facility]#: | | | [id number]). Diagnostician: Isi Gore MD Pathologist | | [...] | | | Fingerstick | performed at [facility];[address] | | LAB | | | | [address];[place] | | | | | | [address] | | | | + + + [...] | | | Fingerstick | performed at [facility];[address] | | LAB | | | | [address];[place], [place] | | | | | | [address] | | | | + + + [...] | | | Fingerstick | performed at [facility];[address] | | LAB | | | | [address];[place] | | | | | | [address] | | | | + + + [...] EXTERNAL | | | | performed at [facility];[address] | | LAB | | | | [address];[place] | | | | | | [address] | | | | + + + + + + | PCO2 ART | 32 (L)Comment: Testing | 35 - 45 mmHg | EXTERNAL | | | | performed at [facility];[address] | | LAB | | | | [address];[place] | | | | | | [address] | | | | + + + + + + | PO2 ART | 81Comment: Testing | 80 - 105 mmHg | EXTERNAL | | | | performed at [facility];[address] | | LAB | | | | [address];[place] | | | | | | [address] | | | | + + + + + + | Lactate, | <0.30 (L)Comment: | 0.36 - 1.25 | EXTERNAL | | | Arterial | Testing performed at | mmol/L | LAB | | | | [address];[place] [address] | | | | + + + + + + | HCO3 ART | 19 (L)Comment: Testing | 22 - 26 mmol/L | EXTERNAL | | | | performed at [facility];[address] | | LAB | | | | [address];[place] | | | | | | [address] | | | | + + + + + + | POC | 20 (L)Comment: Testing | 23 - 27 mEq/L | EXTERNAL | | | APPEARANCE | performed at [facility];[address] | | LAB | | | UA | [address];[place] | | | | | | [address] | | | | + + + + + + | Base | 6 (H)Comment: Testing | 0.0 - 2.0 | EXTERNAL | | | deficit | performed at [facility];[address] | mmol/L | LAB | | | | [address];[place] | | | | | | [address] | | | | + + + + + + | O2 SAT ART | 96Comment: Testing | 95 - 98 % | EXTERNAL | | | | performed at [facility];[address] | | LAB | | | | [address];[place] | | | | | | [address] | | | | + + + + + + | FiO2, POC | 21Comment: Testing | % | EXTERNAL | | | | performed at [facility];[address] | | LAB | | | | [address];[place] | | | | | | [address] | | | | + + + [...] EXTERNAL | | | | performed at [facility];[address] | mmol/L | LAB | | | | [address];[place], [place] | | | | | | [address] | | | | + + + [...] | | | Fingerstick | performed at [facility];8 | | LAB | | | | [address];[place], [place] | | | | | | [address] | | | | + + + [...] EXTERNAL | | | | performed at [facility], [address] | | LAB | | | | [address], | | | | | | [place] [address] | | | | + + + + + + | Clarity | CLEARComment: Testing | | EXTERNAL | | | | performed at [facility], [address] | | LAB | | | | [address], | | | | | | [place] [address] | | | | + + + + + + | Specific | 1.022Comment: Testing | 1.002 - 1.030 | EXTERNAL | | | [place] | performed at [facility], [address] | | LAB | | | | [address], | | | | | | [place] [address] | | | | + + + + + + | Leukocyte | NEGATIVEComment: | | EXTERNAL | | | Esterase, | Testing performed at | | LAB | | | Urine | [facility], [address] | | | | | | [place] | | | | | | [address] | | | | + + + + + + | Nitrite, | NEGATIVEComment: Testing | | EXTERNAL | | | Urine | performed at [facility], [address] | | LAB | | | | [address], | | | | | | [place] [address] | | | | + + + + + + | Urobilinoge | NORMALComment: Testing | mg/dL | EXTERNAL | | | n, Urine | performed at [facility], [address] | | LAB | | | | [address], | | | | | | [place] [address] | | | | + + + + + + | Protein, | NEGATIVEComment: Testing | mg/dL | EXTERNAL | | | Urine | performed at [facility], [address] | | LAB | | | | [address], | | | | | | [place] [address] | | | | + + + + + + | pH, Urine | 6.0Comment: Testing | 5.0 - 8.0 | EXTERNAL | | | | performed at [facility], [address] | | LAB | | | | [address], | | | | | | [place] [address] | | | | + + + + + + | Blood, | NEGATIVEComment: Testing | | EXTERNAL | | | Urine | performed at [facility], [address] | | LAB | | | | [address], | | | | | | [place] [address] | | | | + + + + + + | Ketones | NEGATIVEComment: Testing | mg/dL | EXTERNAL | | | | performed at [facility], [address] | | LAB | | | | [address], | | | | | | [place] [address] | | | | + + + + + + | Bilirubin, | NEGATIVEComment: Testing | | EXTERNAL | | | Urine | performed at [facility], [address] | | LAB | | | | [address], | | | | | | [place] [address] | | | | + + + + + + | Glucose, | >500 (A)Comment: Testing | mg/dL | EXTERNAL | | | Urine | performed at [facility], [address] | | LAB | | | | [address], | | | | | | [place] [address] | | | | + + + [...] | | LAB | | | | [facility];[address] | [address];[place] [address] | | | | + + + + + + | PCO2 ART | 56 (H)Comment: Testing | 35 - 45 mmHg | EXTERNAL | | | | performed at [facility];[address] | | LAB | | | | [address];[place] | | | | | | [address] | | | | + + + + + + | PO2 ART | 74 (L)Comment: Testing | 80 - 105 mmHg | EXTERNAL | | | | performed at [facility];[address] | | LAB | | | | [address];[place] | | | | | | [address] | | | | + + + + + + | Lactate, | 7.11 (H)Comment: Testing | 0.36 - 1.25 | EXTERNAL | | | Arterial | performed at [facility];[address] | mmol/L | LAB | | | | [address];[place] | | | | | | [address] | | | | + + + + + + | HCO3 ART | 9 (L)Comment: Testing | 22 - 26 mmol/L | EXTERNAL | | | | performed at [facility];[address] | | LAB | | | | [address];[place] | | | | | | [address] | | | | + + + + + + | POC | 11 (L)Comment: Testing | 23 - 27 mEq/L | EXTERNAL | | | APPEARANCE | performed at [facility];[address] | | LAB | | | UA | [address];[place] | | | | | | [address] | | | | + + + + + + | Base | 25 (H)Comment: Testing | 0.0 - 2.0 | EXTERNAL | | | deficit | performed at [facility];[address] | mmol/L | LAB | | | | [address];[place] | | | | | | [address] | | | | + + + + + + | O2 SAT ART | 77 (L)Comment: Testing | 95 - 98 % | EXTERNAL | | | | performed at [facility];[address] | | LAB | | | | [address];[place] | | | | | | [address] | | | | + + + + + + | FiO2, POC | 100Comment: Testing | % | EXTERNAL | | | | performed at [facility];[address] | | LAB | | | | [address];[place] | | | | | | [address] | | | | + + + [...] [place] | | | | | | [address] | | | | + + + + + + | RED CELL | 4.04 (L)Comment: Testing | 4.20 - 5.70 | EXTERNAL | | | COUNT | performed at [facility], [address] | M/uL | LAB | | | | [address], | | | | | | [place] [address] | | | | + + + + + + | Hgb | 11.4 (L)Comment: Testing | 13.2 - 17.0 | EXTERNAL | | | | performed at [facility], [address] | g/dL | LAB | | | | [address], | | | | | | [place] [address] | | | | + + + + + + | Hematocrit, | 35.1 (L)Comment: Testing | 39.0 - 50.0 % | EXTERNAL | | | POC | performed at [facility], [address] | | LAB | | | | [address], | | | | | | [place] [address] | | | | + + + + + + | MCV | 86.7Comment: Testing | 80.0 - 100.0 fl | EXTERNAL | | | | performed at [facility], [address] | | LAB | | | | [address], | | | | | | [place] [address] | | | | + + + + + + | MCH | 28.2Comment: Testing | 27.0 - 34.0 pg | EXTERNAL | | | | performed at [facility], [address] | | LAB | | | [address], | | | | | | [place] [address] | | | | + + + + + + | MCHC | 32.5Comment: Testing | 32.0 - 35.5 | EXTERNAL | | | | performed at [facility], [address] | g/dL | LAB | | | | [address], | | | | | | [place] [address] | | | | + + + + + + | RDW-CV | 42.0Comment: Testing | 37 - 53 fl | EXTERNAL | | | | performed at [facility], [address] | | LAB | | | | [address], | | | | | | [place] [address] | | | | + + + + + + | Platelet | 262Comment: Testing | 150 - 400 K/uL | EXTERNAL | | | Count | performed at [facility], [address] | | LAB | | | Plasma | [address], | | | | | | [place] [address] | | | | + + + + + + | MPV | 8.4Comment: Testing | fl | EXTERNAL | | | | performed at [facility], [address] | | LAB | | | | [address], | | | | | | [place] [address] | | | | + + + + + + | Differentia | AUTOMATEDComment: | | EXTERNAL | | | l Type | Testing performed at | | LAB | | | | [facility], [address] | | | | | | [place] | | | | | | [address] | | | | + + + + + + | % Segmented | 82.60Comment: Testing | % | EXTERNAL | | | | performed at [facility], [address] | | LAB | | | Neutrophils | [address], | | | | | | [place] [address] | | | | + + + + + + | % | 7.47Comment: Testing | % | EXTERNAL | | | Lymphocytes | performed at [facility], [address] | | LAB | | | | [address], | | | | | | [place] [address] | | | | + + + + + + | % Monocytes | 6.29Comment: Testing | % | EXTERNAL | | | | performed at [facility], [address] | | LAB | | | | [address], | | | | | | [place] [address] | | | | + + + + + + | % | 3.29Comment: Testing | % | EXTERNAL | | | Eosinophils | performed at [facility], [address] | | LAB | | | | [address], | | | | | | [place] [address] | | | | + + + + + + | % Basophils | 0.35Comment: Testing | % | EXTERNAL | | | | performed at [facility], [address] | | LAB | | | | [address], | | | | | | [place] [address] | | | | + + + + + + | Absolute | 13.94 (H)Comment: | 1.90 - 7.40 | EXTERNAL | | | Segmented | Testing performed at | K/uL | LAB | | | Neutrophils | [facility], [address] | | | | | | [place] | | | | | | [address] | | | | + + + + + + | Absolute | 1.26Comment: Testing | 1.00 - 3.90 | EXTERNAL | | | Lymphocytes | performed at [facility], [address] | K/uL | LAB | | | | [address], | | | | | | [place] [address] | | | | + + + + + + | Absolute | 1.06 (H)Comment: Testing | 0.00 - 0.80 | EXTERNAL | | | Monocytes | performed at [facility], [address] | K/uL | LAB | | | | [address], | | | | | | [place] [address] | | | | + + + + + + | Absolute | 0.56 (H)Comment: Testing | 0.00 - 0.50 | EXTERNAL | | | Eosinophils | performed at [facility], [address] | K/uL | LAB | | | | [address], | | | | | | [place] [address] | | | | + + + + + + | Absolute | 0.06Comment: Testing | 0.00 - 0.10 | EXTERNAL | | | Basophils | performed at [facility], [address] | K/uL | LAB | | | | [address], | | | | | | [place] [address] | | | | + + + [...] EXTERNAL | | | | performed at [facility], [address] | | LAB | | | | [address], | | | | | | [place] [address] | | | | + + [...] EXTERNAL | | | | performed at [facility], [address] | | LAB | | | | [address], | | | | | | [place] [address] | | | | + + + [...] | | | | | performed at [facility], [address] | | | | | | [address] [facility], | | | | | | [place] [address] | | | | + + + [...] | | | | | performed at [facility], [address] | | | | | | [facility], | | | | | | [place] [address] | | | | + + + [...] | | | | [place] [address] | | | | + + + + + + | K | 4.6Comment: Testing | 3.5 - 4.9 | EXTERNAL | | | | performed at [facility], [address] | mmol/L | LAB | | | | [address], | | | | | | [place] [address] | | | | + + + + + + | Cl | 103Comment: Testing | 99 - 109 mmol/L | EXTERNAL | | | | performed at [facility], [address] | | LAB | | | | [address], | | | | | | [place] [address] | | | | + + + + + + | CO2 | 22 (L)Comment: Testing | 23 - 32 mmol/L | EXTERNAL | | | | performed at [facility], [address] | | LAB | | | | [address], | | | | | | [place] [address] | | | | + + + + + + | Anion Gap | 14Comment: Testing | 5 - 20 mmol/L | EXTERNAL | | | | performed at [facility], [address] | | LAB | | | | [address], | | | | | | [place] [address] | | | | + + + + + + | Glucose, | 392 (H)Comment: Testing | 65 - 99 mg/dL | EXTERNAL | | | Fasting | performed at [facility], [address] | | LAB | | | | [address], | | | | | | [place] [address] | | | | + + + + + + | BUN | 12Comment: Testing | 8 - 25 mg/dL | EXTERNAL | | | | performed at [facility], [address] | | LAB | | | | [address], | | | | | | [place] [address] | | | | + + + + + + | Creatinine | 1.0Comment: Testing | 0.70 - 1.30 | EXTERNAL | | | | performed at [facility], [address] | mg/dL | LAB | | | | [address], | | | | | | [place] [address] | | | | + + + + + + | BUN/Creatin | 12Comment: Testing | | EXTERNAL | | | ine Ratio | performed at [facility], [address] | | LAB | | | | [address], | | | | | | [place] [address] | | | | + + + + + + | Calcium | 7.6 (L)Comment: Testing | 8.5 - 10.5 | EXTERNAL | | | | performed at [facility], [address] | mg/dL | LAB | | | | [address], | | | | | | [place] [address] | | | | + + + + + + | Protein, | 6.4Comment: Testing | 6.3 - 8.2 g/dL | EXTERNAL | | | Total | performed at [facility], [address] | | LAB | | | | [address], | | | | | | [place] [address] | | | | + + + + + + | Albumin | 2.2 (L)Comment: Testing | 3.6 - 5.0 g/dL | EXTERNAL | | | | performed at [facility], [address] | | LAB | | | | [address], | | | | | | [place] [address] | | | | + + + + + + | Globulin | 4.2Comment: Testing | 1.3 - 4.9 g/dL | EXTERNAL | | | | performed at [facility], [address] | | LAB | | | | [address], | | | | | | [place] [address] | | | | + + + + + + | A/G Ratio | 0.5 (L)Comment: Testing | 1.0 - 2.4 | EXTERNAL | | | | performed at [facility], [address] | | LAB | | | | [address], | | | | | | [place] [address] | | | | + + + + + + | Bilirubin | 0.6Comment: Testing | 0.1 - 1.5 mg/dL | EXTERNAL | | | Total | performed at [facility], [address] | | LAB | | | | [address], | | | | | | [place] [address] | | | | + + + + + + | ALP, | 182 (H)Comment: Testing | 35 - 115 U/L | EXTERNAL | | | External | performed at [facility], [address] | | LAB | | | | [address], | | | | | | [place] [address] | | | | + + + + + + | AST | 9 (L)Comment: Testing | 10 - 45 U/L | EXTERNAL | | | | performed at [facility], [address] | | LAB | | | | [address], | | | | | | [place] [address] | | | | + + + + + + | ALT | 16Comment: Testing | 10 - 65 U/L | EXTERNAL | | | | performed at [facility], [address] | | LAB | | | | [address], | | | | | | [place] [address] | | | | + + + [...] | | | | | | at [facility], [address] | | | | | | [address], | | | | | | [place] [address] | | | | + + + [...] | | | Fingerstick | performed at [facility];[address] | | LAB | | | | [address];[place], [place] | | | | | | [address] | | | | + + + [...] EXTERNAL LAB | | Testing performed at [facility];[address] [place] [address];[place] [address] MRSA PCR | | | POSITIVE for MRSA by PCRAbnormal | | | Testing performed at [address];[place] [address] | | + + + + +---------+ [...] | | | Fingerstick | performed at [facility];[address] | | LAB | | | | [address];[place] | | | | | | [address] | | | | + + + [...] EXTERNAL | | | | performed at [facility];[address] | mmol/L | LAB | | | | [address];[place] | | | | | | [address] | | | | + + + + + + | K | 4.0Comment: Testing | 3.5 - 4.9 | EXTERNAL | | | | performed at [facility];[address] | mmol/L | LAB | | | | [address];[place] | | | | | | [address] | | | | + + + + + + | Cl | 104Comment: Testing | 99 - 109 mmol/L | EXTERNAL | | | | performed at [facility];[address] | | LAB | | | | [address];[place] | | | | | | [address] | | | | + + + + + + | CO2 | 21 (L)Comment: Testing | 23 - 32 mmol/L | EXTERNAL | | | | performed at [facility];[address] | | LAB | | | | [address];[place] | | | | | | [address] | | | | + + + + + + | Anion Gap | 13Comment: Testing | 5 - 20 mmol/L | EXTERNAL | | | | performed at [facility];[address] | | LAB | | | | [address];[place] | | | | | | [address] | | | | + + + + + + | Glucose, | 254 (H)Comment: Testing | 65 - 99 mg/dL | EXTERNAL | | | Fasting | performed at [facility];[address] | | LAB | | | | [address];[place] | | | | | | [address] | | | | + + + + + + | BUN | 12Comment: Testing | 8 - 25 mg/dL | EXTERNAL | | | | performed at [facility];[address] | | LAB | | | | [address];[place] | | | | | | [address] | | | | + + + + + + | Creatinine | 0.95Comment: Testing | 0.70 - 1.30 | EXTERNAL | | | | performed at [facility];[address] | mg/dL | LAB | | | | [address];[place] | | | | | | [address] | | | | + + + + + + | BUN/Creatin | 13Comment: Testing | | EXTERNAL | | | ine Ratio | performed at [facility];[address] | | LAB | | | | [address];[place] | | | | | | [address] | | | | + + + + + + | Calcium | 6.9 (L)Comment: Testing | 8.5 - 10.5 | EXTERNAL | | | | performed at [facility];[address] | mg/dL | LAB | | | | [address];[place] | | | | | | [address] | | | | + + + + + + | Protein, | 6.3Comment: Testing | 6.3 - 8.2 g/dL | EXTERNAL | | | Total | performed at [facility];[address] | | LAB | | | | [address];[place] | | | | | | [address] | | | | + + + + + + | Albumin | 2.1 (L)Comment: Testing | 3.6 - 5.0 g/dL | EXTERNAL | | | | performed at [facility];[address] | | LAB | | | | [address];[place] | | | | | | [address] | | | | + + + + + + | Globulin | 4.2Comment: Testing | 1.3 - 4.9 g/dL | EXTERNAL | | | | performed at [facility];[address] | | LAB | | | | [address];[place] | | | | | | [address] | | | | + + + + + + | A/G Ratio | 0.5 (L)Comment: Testing | 1.0 - 2.4 | EXTERNAL | | | | performed at [facility];[address] | | LAB | | | | [address];[place] | | | | | | [address] | | | | + + + + + + | Bilirubin | 0.4Comment: Testing | 0.1 - 1.5 mg/dL | EXTERNAL | | | Total | performed at [facility];[address] | | LAB | | | | [address];[place] | | | | | | [address] | | | | + + + + + + | ALP, | 181 (H)Comment: Testing | 35 - 115 U/L | EXTERNAL | | | External | performed at [facility];[address] | | LAB | | | | [address];[place] | | | | | | [address] | | | | + + + + + + | AST | 10Comment: Testing | 10 - 45 U/L | EXTERNAL | | | | performed at [facility];[address] | | LAB | | | | [address];[place] | | | | | | [address] | | | | + + + + + + | ALT | 14Comment: Testing | 10 - 65 U/L | EXTERNAL | | | | performed at [facility];[address] | | LAB | | | | [address];[place] | | | | | | [address] | | | | + + + [...] | | | | | | at [facility];[address];[place] [address] | | | | + + + [...] 9:30AM Referring Provider Line: | | | [phone] ID: [id number] | | + + + [...] | | 2016 9:30AM Referring Provider Line: [phone] ID: [id number] | + + POC Glucose (12/14/2016 11:34 PM PDT) + + + + + + | Component | Value | Ref Range | Performed | Pathologist | | | | | At | Signature | + + + + + + | Glucose, | 172 (H)Comment: Testing | 65 - 99 mg/dL | EXTERNAL | | | Fingerstick | performed at [facility];[address] | | LAB | | | | [address];[place], [place] | | | | | | [address] | | | | + + + [...] EXTERNAL | | | | performed at [facility];[address] | mmol/L | LAB | | | | [address];[place], [place] | | | | | | [address] | | | | + + + [...] | | | Blood | performed at [facility];[address] | | LAB | | | | [address];[place], [place] | | | | | | [address] | | | | + + + [...] EXTERNAL | | | | performed at [facility] | | LAB | | | | [address];[place] | | | | | | [address] | | | | + + + [...] K/uL | LAB | | | | [facility];[address];[place] [address] | | | | + + + + + + | RED CELL | 4.20Comment: Testing | 4.20 - 5.70 | EXTERNAL | | | COUNT | performed at [facility];[address] | M/uL | LAB | | | | [address];[place] | | | | | | [address] | | | | + + + + + + | Hgb | 12.4 (L)Comment: Testing | 13.2 - 17.0 | EXTERNAL | | | | performed at [facility];[address] | g/dL | LAB | | | | [address];[place] | | | | | | [address] | | | | + + + + + + | Hematocrit, | 36.3 (L)Comment: Testing | 39.0 - 50.0 % | EXTERNAL | | | POC | performed at [facility];[address] | | LAB | | | | [address];[place] | | | | | | [address] | | | | + + + + + + | MCV | 86.5Comment: Testing | 80.0 - 100.0 fl | EXTERNAL | | | | performed at [facility];[address] | | LAB | | | | [address];[place] | | | | | | [address] | | | | + + + + + + | MCH | 29.4Comment: Testing | 27.0 - 34.0 pg | EXTERNAL | | | | performed at [facility];[address] | | LAB | | | | [address];[place] | | | | | | [address] | | | | + + + + + + | MCHC | 34.0Comment: Testing | 32.0 - 35.5 | EXTERNAL | | | | performed at [facility];[address] | g/dL | LAB | | | | [address];[place] | | | | | | [address] | | | | + + + + + + | RDW-CV | 42.9Comment: Testing | 37 - 53 fl | EXTERNAL | | | | performed at [facility];[address] | | LAB | | | | [address];[place] | | | | | | [address] | | | | + + + + + + | Platelet | 258Comment: Testing | 150 - 400 K/uL | EXTERNAL | | | Count | performed at [facility];[address] | | LAB | | | Plasma | [address];[place] | | | | | | [address] | | | | + + + + + + | MPV | 8.3Comment: Testing | fl | EXTERNAL | | | | performed at [facility];[address] | | LAB | | | | [address];[place] | | | | | | [address] | | | | + + + + + + | Differentia | AUTOMATEDComment: | | EXTERNAL | | | l Type | Testing performed at | | LAB | | | | [facility];[address];[place] [address] | | | | + + + + + + | % Segmented | 87.43Comment: Testing | % | EXTERNAL | | | | performed at [facility];[address] | | LAB | | | Neutrophils | [address];[place] | | | | | | [address] | | | | + + + + + + | % | 5.56Comment: Testing | % | EXTERNAL | | | Lymphocytes | performed at [facility];[address] | | LAB | | | | [address];[place] | | | | | | [address] | | | | + + + + + + | % Monocytes | 4.36Comment: Testing | % | EXTERNAL | | | | performed at [facility];[address] | | LAB | | | | [address];[place] | | | | | | [address] | | | | + + + + + + | % | 1.84Comment: Testing | % | EXTERNAL | | | Eosinophils | performed at [facility];[address] | | LAB | | | | [address];[place] | | | | | | [address] | | | | + + + + + + | % Basophils | 0.81Comment: Testing | % | EXTERNAL | | | | performed at [facility];[address] | | LAB | | | | [address];[place] | | | | | | [address] | | | | + + + + + + | Absolute | 17.02 (H)Comment: | 1.90 - 7.40 | EXTERNAL | | | Segmented | Testing performed at | K/uL | LAB | | | Neutrophils | [facility];[address];[place] [address] | | | | + + + + + + | Absolute | 1.08Comment: Testing | 1.00 - 3.90 | EXTERNAL | | | Lymphocytes | performed at [facility];[address] | K/uL | LAB | | | | [address];[place] | | | | | | [address] | | | | + + + + + + | Absolute | 0.85 (H)Comment: Testing | 0.00 - 0.80 | EXTERNAL | | | Monocytes | performed at [facility];[address] | K/uL | LAB | | | | [address];[place] | | | | | | [address] | | | | + + + + + + | Absolute | 0.36Comment: Testing | 0.00 - 0.50 | EXTERNAL | | | Eosinophils | performed at [facility];[address] | K/uL | LAB | | | | [address];[place] | | | | | | [address] | | | | + + + + + + | Absolute | 0.16 (H)Comment: Testing | 0.00 - 0.10 | EXTERNAL | | | Basophils | performed at [facility];[address] | K/uL | LAB | | | | [address];[place] | | | | | | [address] | | | | + + + + + + | RBC | RBC AND PLT MORPHOLOGY | | EXTERNAL | | | Morphology | APPEAR NORMALComment: | | LAB | | | | Testing performed at | | | | | | [facility];[address];[place] [address] | | | | + + + + + + | Platelet | ADEQUATEComment: Testing | | EXTERNAL | | | Estimate | performed at [facility];[address] | | LAB | | | | [address];[place] | | | | | | [address] | | | | + + + + + + | Differentia | SLIDE SCANNED, AGREES | | EXTERNAL | | | l Comments | WITH AUTOMATED | | LAB | | | | RESULTS.Comment: Testing | | | | | | performed at [facility];[address] | | | | | | [address];[place], [place] | | | | | | [address] [...] EXTERNAL | | | | performed at [facility] | | LAB | | | | [address];[place], [place] | | | | | | [address] | | | | + + + [...] EXTERNAL | | | | performed at [facility];[address] | mmol/L | LAB | | | | [address];[place] | | | | | | [address] | | | | + + + + + + | K | 5.1 (H)Comment: MODERATE | 3.5 - 4.9 | EXTERNAL | | | | HEMOLYSISTesting | mmol/L | LAB | | | | performed at [facility];[address] | | | | | | [address];[place] | | | | | | [address] | | | | + + + + + + | Cl | 93 (L)Comment: Testing | 99 - 109 mmol/L | EXTERNAL | | | | performed at [facility];[address] | | LAB | | | | [address];[place] | | | | | | [address] | | | | + + + + + + | CO2 | 23Comment: Testing | 23 - 32 mmol/L | EXTERNAL | | | | performed at [facility];[address] | | LAB | | | | [address];[place] | | | | | | [address] | | | | + + + + + + | Anion Gap | 14Comment: Testing | 5 - 20 mmol/L | EXTERNAL | | | | performed at [facility];[address] | | LAB | | | | [address];[place] | | | | | | [address] | | | | + + + + + + | Glucose, | 635 (HH)Comment: CALLED | 65 - 99 mg/dL | EXTERNAL | | | Fasting | DR LING COUCH | | LAB | | | | AT 2216 BY RHREAD BACK | | | | | | RESULTS VERIFIEDTesting | | | | | | performed at [facility];[address] | | | | | | [address];[place] | | | | | | [address] | | | | + + + + + + | BUN | 13Comment: Testing | 8 - 25 mg/dL | EXTERNAL | | | | performed at [facility];[address] | | LAB | | | | [address];[place] | | | | | | [address] | | | | + + + + + + | Creatinine | 1.4 (H)Comment: Testing | 0.70 - 1.30 | EXTERNAL | | | | performed at [facility];[address] | mg/dL | LAB | | | | [address];[place] | | | | | | [address] | | | | + + + + + + | BUN/Creatin | 10Comment: Testing | | EXTERNAL | | | ine Ratio | performed at [facility];[address] | | LAB | | | | [address];[place] | | | | | | [address] | | | | + + + + + + | Calcium | 7.9 (L)Comment: Testing | 8.5 - 10.5 | EXTERNAL | | | | performed at [facility];[address] | mg/dL | LAB | | | | [address];[place] | | | | | | [address] | | | | + + + + + + | Protein, | 7.7Comment: Testing | 6.3 - 8.2 g/dL | EXTERNAL | | | Total | performed at [facility];[address] | | LAB | | | | [address];[place] | | | | | | [address] | | | | + + + + + + | Albumin | 2.6 (L)Comment: Testing | 3.6 - 5.0 g/dL | EXTERNAL | | | | performed at [facility];[address] | | LAB | | | | [address];[place] | | | | | | [address] | | | | + + + + + + | Globulin | 5.1 (H)Comment: Testing | 1.3 - 4.9 g/dL | EXTERNAL | | | | performed at [facility];[address] | | LAB | | | | [address];[place] | | | | | | [address] | | | | + + + + + + | A/G Ratio | 0.5 (L)Comment: Testing | 1.0 - 2.4 | EXTERNAL | | | | performed at [facility] [place];[address] | | LAB | | | | [address];[place] | | | | | | [address] | | | | + + + + + + | Bilirubin | 0.6Comment: Testing | 0.1 - 1.5 mg/dL | EXTERNAL | | | Total | performed at [facility] [place];[address] | | LAB | | | | [address];[place] | | | | | | [address] | | | | + + + + + + | ALP, | 259 (H)Comment: Testing | 35 - 115 U/L | EXTERNAL | | | External | performed at [facility];[address] | | LAB | | | | [address];[place] | | | | | | [address] | | | | + + + + + + | AST | 17Comment: MODERATE | 10 - 45 U/L | EXTERNAL | | | | HEMOLYSISTesting | | LAB | | | | performed at [facility] [place];[address] | | | | | | [address];[place] | | | | | | [address] | | | | + + + + + + | ALT | 17Comment: Testing | 10 - 65 U/L | EXTERNAL | | | | performed at [facility];[address] | | LAB | | | | [address];[place] | | | | | | [id number] | | | | + + + [...] | | | | | | at [facility];[address] [facility] | | | | | | [facility];[place] [address] | | | | + + + [...] type 2 diabetes mellitus with hyperglycemia, unspecified terminal carman | | insulin use status | + [...]
--- OUTSIDE RECORDS SUMMARY | ~2019-10-09 | XMS | Encounter Summary ---
Demographics + + + | Address | [address] | | | [place] [address] | + + + | Home Phone [...] | | + + +---------+ + | Sarha Hanson | ECON | Unknown | | + + +---------+ + Care Team Providers + +------+ + | Care Workforce Development Vice President Name | Role | Phone | + +------+ + | Estrella Light PA-C | PCP | | + +------+ + Encounter Details +--------+ + + + + | Date | Type | Department | Care Team | Description | +--------+ + + + + | 01/13/ | Hospital | [facility] | Conversion | Diagnosis unknown | | 2018 | Encounter | CONVERSION DEP [address] | Transaction, | | | | | [address] | Provider Unknown | | | | | [place] | | | | | | [address] | (Fax) | | | | | [phone] | | | +--------+ + + + [...]
--- OUTSIDE RECORDS SUMMARY | ~2019-10-09 | XMS | Encounter Summary ---
Demographics + + + | Address | [address] | | | [place] [address] | + + + | Home Phone [...] Team Providers + +------+ + | Care Parachute Taper Name | Role | Phone | + [...] Marbella Ley | | | | | [address] [place], [place] | [place] [address] | | | | | [address] | | | | | | [phone] | | | +--------+ + + + [...]
--- OUTSIDE RECORDS SUMMARY | ~2019-10-09 | XMS | Encounter Summary ---
Demographics + + + | Address | [address] | | | [place] [address] | + + + | Home Phone [...] Team Providers + +------+ + | Care Veneer Slicing Machine Operator Name | Role | Phone [...] antibody | [address] | [address], | | | | | positive | [place], [place] | [place] [address] | | | | | Chronic | [address] [place] | [place], | | | | | diarrhea | [place], [place] | [place] [address] | | | | | Procedures | [address] | Phone: | | | | | [place] | Phone: | [phone] | | | | | COLONOSCOPY | [phone] | Fax: | | | | | FLX DX | Fax: | [phone] | | | | | W/COLLJ SPEC | [phone] | | | | | | WHEN [...] | | | | | | HI EDG | | | | | | [...] 2015 | | GASTROENTEROLOGY | [address] [place], [place] | (egd/colon ) | | | | [address] [place] | [address] [place], [place] | | | | | 210 [place], [place] | [address] | | | | | [address] | | | | | | [phone] | | | +--------+ + + + [...]
--- OUTSIDE RECORDS SUMMARY | ~2019-10-09 | XMS | Encounter Summary ---
Demographics + + + | Address | [address] | | | [place] [address] | + + + | Home Phone [...] Providers + +------+ + | Care Senior Rd Engineer Name | Role | Phone | + +------+ + PCP | Unavailable | + +------+ + Encounter Details +--------+ + + + + | Date | Type | Department | Care Team | Description | +--------+ + + + + | 07/19/ | Hospital | [facility] | | | | 1992 | Encounter | MED CTR MP INTRA OP | | | | | | [address] | | | | | | [place] | | | | | | [address] | | | | | | [phone] | | | +--------+ + + + [...]
--- OUTSIDE RECORDS SUMMARY | ~2019-10-09 | XMS | Clinical Summary ---
Demographics + + + | Address | [address] | | | [place] [address] | + + + | Home Phone | | + + + | Preferred Language | Unknown | + + + | Marital Status | Single | + + + | Alevism Affiliation | [id number] | + + + | Race | Unknown | + + + | Ethnic Group | Unknown | + + + Author + + + | Author | [facility] (Historical as of | | | 05-18-19) | + + + | Organization | [facility] (Historical as of | | | 05-18-19) [...] Team Providers + +------+ + | Care Photo Technologist Name | Role | Phone | + [...] right foot, limited to breakdown of skin ([facility]) | 01/13/2018 | + + + | Cellulitis and abscess of foot | 12/15/2016 | + + + | Osteomyelitis ([facility]) | 12/15/2016 | + + + | Essential hypertension | 03/04/2015 | + + + | Type 2 diabetes mellitus, with long-term current use of insulin | 03/04/2015 | | ([facility]) | | + + + Family History [...] +------+-------+ + | MEDICAID | [place]ER | [id number] | | | [address] | | | N | | | | [place], [place] | | | [place] | | | | [address] | | | PARACHUTE OFFICER | | | | | + +--------+ +------+-------+ + | [employer] | YELLOW | [id number] | | | | | PLANS | [...] | Self | [birth year] | Home: | [address] | | | al/Fam | | 1965 | [phone]- | [place], [place] | | | vikas | | | [address] | [address] | + +--------+ +--------+ + + | [facility] | Third | Self | [birth year]/ | Home: | [address] | | | Republican | | 1964 | [phone] | [place], [place] | | | Liabil | | | [address] | [address] | | | ity | | | | | + +--------+ +--------+ + +
--- OUTSIDE RECORDS SUMMARY | ~2019-10-09 | XMS | Encounter Summary ---
Demographics + + + | Address | [address] | | | [place] [address] | + + + | Home Phone [...] | Author | [facility] | [...] Team Providers + +------+ + | Care Interactive Media Marketing Director Name | Role | Phone | + +------+ + | Estrella Light PA-C | PCP | | + +------+ + Encounter Details +--------+ + + + + | Date | Type | Department | Care Team | Description | +--------+ + + + + | 01/13/ | Hospital | [facility] | Cameron Lopez | | | 2018 - | Encounter | [facility] | MD Antolin Hill | | | | | CLINICAL DECISION | [place], [place] | | | 01/14/ | | UNIT [facility] | [address] | | | 2017 | | [place], [place] | | | | | | [address] | | | | | | [phone] | | | +--------+ + + + [...] 01/14/181931 Date of Service: 01/14/18899 Status: Signed Wafer Cutter: Abhinav Winters DO (Physician) The patient is 52 y.o. 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 In the emergency department at [facility], EKG showed T inversions in lead III [...] Date of Service: 04/15/18 0900 Status: Signed Wafer Cutter: Elizabeth Galvez, RN (Registered Nurse) Approached by [...] 01/13/181399 Date of Service: 01/13/181399 Status: Signed Wafer Cutter: Rosalba Luo RPH (Pharmacist) Clinical Pharmacy Note: [...] | | | Basophils | performed at [facility], [address] | K/uL | LAB | | | | [place], | | | | | | [place] [address] | | | | + + + [...] | | | | [place] [address] | | | | + + + [...] EXTERNAL | | | | performed at [facility], [address] | | LAB | | | | [place], | | | | | | [place] [address] | | | | + + + [...] EXTERNAL | | | | performed at [facility], [address] | | LAB | | | | [place], | | | | | | [place] [address] | | | | + + + [...] | EXTERNAL | | | A1c | Uz[place] Diabetes | | LAB | | | [...] | | | | | performed at [facility], [address] | | | | | | [facility], | | | | | | [place] [address] | | | | + + [...] | | | Cholesterol | performed at [facility], [address] | | LAB | | | , | [place], | | | | | Calculated, | [place] [address] | | | | | External | [...] | | | | | | at [facility], [address] | | | | | | [place], | | | | | | [place] [address] | | | | + + + [...] | | | Fingerstick | performed at [facility];[address] | | LAB | | | | [address];[place], [place] | | | | | | [address] | | | | + + + [...] + + | Historically converted procedure from [facility] Epic environment | EXTERNAL LAB [...] EXTERNAL | | | | performed at [facility];[address] | | LAB | | | | [address];[place], [place] | | | | | | [address] | | | | + + + [...] | | | Fingerstick | performed at [facility];[address] | | LAB | | | | [address];[place], [place] | | | | | | [address] | | | | + + + [...] | | | | | | ACUTE CA Testing | | | | | | performed at [facility];[address] | | | | | | [address] [facility];[place], [place] | | | | | | [address] | | | | + + + [...] EXTERNAL | | | | performed at [facility];[address] | | LAB | | | | [address];[place] | | | | | | [address] | | | | + + + [...] | | | Fingerstick | performed at [facility];[address] | | LAB | | | | [address];[place] | | | | | | [address] | | | | + + + [...] | | | Fingerstick | performed at [facility];[address] | | LAB | | | | [address];[place] | | | | | | [address] | | | | + + + [...] | | | | | | ACUTE CA Testing | | | | | | performed at [facility] | | | | | | Fabio [facility];[place], [place] | | | | | | [address] | | | | + + + [...] EXTERNAL | | | | performed at [facility];[address] | | LAB | | | | [address];[place], [place] | | | | | | [address] | | | | + + + [...] TV A Star: 0.46 m/s TV Dec Alcon[place]: 2.14 m/s2 TV Dec Time: | | | 223.61 ms TV E Star: 0.47 m/s TV E/A Ratio: 1.03 | | | Line Walker: DIDI Authenticated by: Dereck Galicia Report | [...] (A-L): | | 16.36 ml/m2LAAs A2C: 13.19 [id number] A-L A2C: 34.91 mlLALs A2C: 4.23 cmLAAs A4C: | | 11.37 [id number] A-L A4C: 29.21 mlLALs A4C: 3.75 cmRAAd: 13.57 [id number] A-L: | | 35.22 mlRAEDV MOD: 30.46 mlRALd: 4.44 cmTAPSE: 1.67 cmHR: 82.18 BPMAV maxPG: | | 3.19 mmHgAV meanP.99 mmHgAV Vmax: 0.89 m/Simran Vmean: 0.69 m/Simran VTI: 18.16 | | cmAVA Vmax: 3.34 cm2AVA (VTI): 3.51 gf7LCQZ Vmax: 0.00 cm2/m2AVAI (VTI): 0.00 | | cm2/m2LVCI Dopp: 2.41 l/qlam7IQYZ Dopp: 5.00 l/minHR: 78.46 BPMLVOT maxP.34 | [...] 3 mmHgTV A Star: 0.46 m/sTV Dec Alcon[place]: 2.14 m/s2TV Dec Time: 223.61 | | msTV E Star: 0.47 m/sTV E/A Ratio: 1.03 Line Walker: Nishaticated by: Dereck | | KorimerlaReport Date/Time: [...] A Star: 0.46 m/s | |TV Dec Al[place]: 2.14 m/s2 | |TV Dec Time: 223.61 ms | |TV E Star: 0.47 m/s | |TV E/A Ratio: 1.03 | | | |Line Walker: GD | |Authenticated by: Dereck Galicia | [...] | | | Fingerstick | performed at [facility];[address] | | LAB | | | | [address];[place], [place] | | | | | | [address] | | | | + + + [...] | | | | | | ACUTE CA Testing | | | | | | performed at [facility];[address] | | | | | | [facility];[place], [place] | | | | | | [address] | | | | + + + [...] + + | Historically converted procedure from [facility] Epic environment | EXTERNAL LAB [...] | | | PCRAbnormal Testing performed at [facility];[address] [place] [address];[place] [address] | | + + + + +---------+ [...]
--- OUTSIDE RECORDS SUMMARY | ~2019-10-09 | XMS | Encounter Summary ---
Demographics + + + | Address | [address] | | | [place] [address] | + + + | Home Phone [...] Team Providers + +------+ + | Care Offset Plate Preparation Supervisor Name | Role | Phone | [...] 2016 | | GASTROENTEROLOGY | [address], [place] | | | | | [address] [place] | [address] [place] | | | | | [address] [place], [place] | [address] | | | | | [address] | | | | | | [phone] | | | +--------+ + + + [...]
--- OUTSIDE RECORDS SUMMARY | ~2019-10-09 | XMS | Encounter Summary ---
Demographics + + + | Address | [address] | | | [place] [address] | + + + | Home Phone [...] Providers + +------+ + | Care Supervisor Grove Name | Role | Phone | + [...] diarrhea | [address], | | | | | IgG Gliadin | [place], [place] | [place] [address] | | | | | antibody | [address] [place] | [place], | | | | | positive | [place] | [place] [address] | | | | | Alcohol | [address] | Phone: | | | | | abuse | Phone: | [phone] | | | | | Procedures | [phone] | Fax: | | | | | [place] | Fax: | [phone] | | | | | COLONOSCOPY | [phone] | | | | | | FLX [...] 2014 | | GASTROENTEROLOGY | [address], [place] | (procedure ) | | | | [address] [place] | [address] [place], [place] | | | | | [address] [place], [place] | [address] | | | | | [address] | | | | | | [phone] | | | +--------+ + + + [...]
--- OUTSIDE RECORDS SUMMARY | ~2019-10-09 | XMS | Encounter Summary ---
Demographics + + + | Address | [address] | | | [place] [address] | + + + | Home Phone [...] Team Providers + +------+ + | Care Container Finisher Name | Role | Phone | + +------+ + | Estrella Light PA-C | PCP | | + +------+ + Encounter Details +--------+ + + + + | Date | Type | Department | Care Team | Description | +--------+ + + + + | 09/22/ | Anesthesia | [facility] | Ilya Dodge | | | 2015 | Event | MED CTR MP INTRA OP | MD Ebonie [address] | | | | | [address] | [facility] | | | | | [place] | [place] [address] | | | | | [address] | [phone] | | | | | [phone] | | | +--------+ + + + [...]
--- OUTSIDE RECORDS SUMMARY | ~2019-10-09 | XMS | Encounter Summary ---
Demographics + + + | Address | [address] | | | [place] [address] | + + + | Home Phone [...] Team Providers + +------+ + | Care Head Doffer Name | Role | Phone | + [...] | | type | [address] | [place], | | | | | | [place], | [place] [address] | | | | | | [place] [address] | Phone: | | | | | | Phone: | [phone] | | | | | | [phone] | Fax: | | | | | | Fax: | [phone] | | | | | | [phone] | | +--------+ + + + + + Reason for Visit + + + | Reason | Comments | + + + | Hematuria | | + + + Encounter Details +--------+ + + + + | Date | Type | Department | Care Team | Description | +--------+ + + + + | 10/16/ | Emergency | [facility] | Keenan Estrada MD | Hematuria, | | 2019 | | MED CTR EMERGENCY | [address] | unspecified type | | | | CENTER [address] | [place] | (Primary Dx) | | | | [place] | [id number] | | | | | [address] | | | | | | [phone] | | | +--------+ + + + [...] + + +--------+ + + | Urology [facility] - | Outpatient | Routin | [...] + | [facility] | [address] | [place] | [phone] | | [facility] | | [address] | | | - LABORATORY | | [...] - 1.030 | [facility] | | | [place] | | | [facility] | | [...] [address] | [place] | [phone] | | [facility] | | [address] | | | - LABORATORY | | [...]
--- OUTSIDE RECORDS SUMMARY | ~2019-10-09 | XMS | Encounter Summary ---
Demographics + + + | Address | [address] | | | [place] [address] | + + + | Home Phone [...] Team Providers + +------+ + | Care Hot Air Furnace Installer And Repairer Name | Role | Phone | [...] | | | [address] [facility] | [address] [place] | | | | | 210 [place], [place] | [address] | | | | | [address] | | | | | | [phone] | | | +--------+ + + + [...]
--- OUTSIDE RECORDS SUMMARY | ~2019-10-09 | XMS | Encounter Summary ---
Demographics + + + | Address | [address] | | | [place] [address] | + + + | Home Phone [...] Team Providers + +------+ + | Care Meat Hanger Name | Role | Phone | + [...] | diarrhea | | | | [address] [place], [place] | [address] | | | | | [address] | | | | | | [phone] | | | +--------+ + + + [...]
--- OUTSIDE RECORDS SUMMARY | ~2019-10-09 | XMS | Encounter Summary ---
Demographics + + + | Address | [address] | | | [place] [address] | + + + | Home Phone [...] Team Providers + +------+ + | Care Salvage Cutter Name | Role | Phone | [...] diarrhea | [address], | | | | | IgG Gliadin | [place], [place] | [place] [address] | | | | | antibody | [address] [place] | [place], | | | | | positive | [place] | [place] [address] | | | | | Alcohol | [address] | Phone: | | | | | abuse | Phone: | [phone] | | | | | Procedures | [phone] | Fax: | | | | | [place] | Fax: | [phone] | | | | | COLONOSCOPY | [phone] | | | | | | FLX [...] 2014 | | GASTROENTEROLOGY | [address], [place] | (procedure ) | | | | [address] [place] | [address] [place], [place] | | | | | [address] [place], [place] | [address] | | | | | [address] | | | | | | [phone] | | | +--------+ + + + [...]
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
--- OUTSIDE RECORDS SUMMARY | ~2019-10-09 | XMS | Encounter Summary ---
Demographics + + + | Address | [address] | | | [place] [address] | + + + | Home Phone [...] Providers + +------+ + | Care Circuit Court Magistrate Name | Role | Phone | + +------+ + PCP | Unavailable | + +------+ + Encounter Details +--------+ + + + + | Date | Type | Department | Care Team | Description | +--------+ + + + + | 05/21/ | Hospital | [facility] | Unknown, | | | 1992 | Encounter | MED CTR XRAY [address] | MD [place] | | | | | [place] | [phone] | | | | | [place] [address] | | | | | | [phone] | | | +--------+ + + + [...]
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
== END 2019-10-09 20:29 | disposition home or self-care (01) ==
LOC: ED 17:47
DX: R04.0 Epistaxis (principal); I10 Essential (primary) hypertension; E11.9 Type 2 diabetes mellitus without complications; Z88.0 Allergy status to penicillin; Z79.82 Long term (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 of aspirin
CPT/HCPCS: 99283

== ENCOUNTER 2019-10-10 16:20 | Emergency (ER) | payer OTHER ==
[~2019-10-10] VITALS: Ht 177.8 cm; Wt 74.8 kg
--- OUTSIDE RECORDS SUMMARY | ~2019-10-10 | XMS | Encounter Summary ---
Demographics + + + | Address | [address] | | | [place] [address] | + + + | Home Phone | | + + + | Preferred Language | Unknown | + + + | Marital Status | Single | + + + | Adventism Affiliation | [id number] | + + + | Race | Unknown | + + + | Ethnic Group | Unknown | + + + Author + + + | Author | [facility] | | | and [place] | + + + | Organization | [facility] | | | [...] Team Providers + +------+ + | Care Equipment Validation Specialist Name | Role | Phone | + [...] + + | Closed | Specialty | Urology | Diagnoses | Estrada, | [facility] | | | Services | | Hematuria, | Keenan Martinez MD | Urology [address] | | | Required | | unspecified | [address] | | | | | type | [address] | [place], | | | | | | [place], | [place] [address] | | | | | | [place] [address] | Phone: | | | | | | Phone: | [phone] | | | | | | [phone] | Fax: | | | | | | Fax: | [phone] | | | | | | [phone] | | +--------+ + + + + + Reason for Visit + + + | Reason | Comments | + + + | Hematuria | | + + + Encounter Details +--------+ + + + + | Date | Type | Department | Care Team | Description | +--------+ + + + + | 10/16/ | Emergency | [facility] | Keenan Estrada MD | Hematuria, | | 2019 | | [facility] | [address] | unspecified type | | | | CENTER [address] | [place] | (Primary Dx) | | | | [place] | [phone] | | | | | [address] | | | | | | [phone] | | | +--------+ + + + [...] + + + | Blood Pressure | 169/93 | 10/16/2018 3:18 PM | | | | | PST | | + + + + + | Pulse | 102 | 10/16/2018 3:18 PM | | | | | PST | | + + + + + | Temperature | 36.7 C (98.1 F) | 10/16/2018 3:18 PM | | | | | PST | | + + + + + | Respiratory Rate | 16 | 10/16/2018 3:18 PM | | | | | PST | | + + + + + | Oxygen Saturation | 99% | 10/16/2018 3:18 PM | | | | | PST | | + + + + + | Inhaled Oxygen | - | - | | | Concentration | | | | + + + + + | Weight | 72.6 kg (160 lb) | 10/16/2018 3:18 PM | | | | | PST | | + + + + + | Height | 177.8 cm (5' 10") | 10/16/2018 3:18 PM | | | | | PST | | + + + + + | Body Mass Index | 22.96 | 10/16/2018 3:18 PM | | | | | PST | | + + + + + documented in this encounter Discharge Instructions Instructions Keenan Estrada MD - 10/16/2018Antibiotic as prescribed Plenty of fluids Return for worsening symptoms, not improving, the new complaints documented in this encounter Medications at Time of Discharge + + [...] + + + +---------+ + + | levoFLOXacin | take 1 tablet by | | 0 | 06/10/20 | | | (LEVAQUIN) 500 mg | mouth daily | | | 18 | | | tablet | | | | | | + + + +---------+ + + | lisinopril | | | 0 | 10/11/19 | | | (PRINIVIL, ZESTRIL) | | | | 19 | | | 10 mg tablet | | | | | | + + + +---------+ + + | lisinopril | Take 1 tablet by | | 0 | 06/08/20 | | | (PRINIVIL, ZESTRIL) | mouth [...] + + + +---------+ + + | ciprofloxacin | Take 1 tablet by | 14 | 0 | 10/16/19 | | | (CIPRO) 500 mg | mouth 2 times daily | tablet | | 19 | 9 | | tablet | for 7 days. | | | | | + + + +---------+ + + documented as of this encounter Plan of Treatment + + +--------+ + + | Name | Type | Priori | Associated Diagnoses | Order Schedule | | | | ty | | | + + +--------+ + + | [facility] - | Outpatient | Routin | Hematuria, | Ordered: 10/16/2018 | | Jerel/Jaswinder | Referral | e | unspecified type | | + + +--------+ + + documented as of this encounter Procedures + +--------+ + + + | Procedure Name | Priori | Date/Time | Associated Diagnosis | Comments | | | ty | | | | + +--------+ + + + | URINALYSIS WITH | STAT | 10/16/2018 | | Results for this | | MICROSCOPIC WITH | | 4:27 PM | | procedure are in the | | CULTURE IF INDICATED | | PST | | results section. | + +--------+ + + + | CULTURE, URINE | STAT | 10/16/2018 | | Results for this | | | | 4:27 PM | | procedure are in the | | | | PST | | results section. | + +--------+ + + + documented in this encounter Results Culture, Urine (10/16/2018 4:27 PM PST) + + + + + + | Component | Value | Ref Range | Performed | Pathologist | | | | | At | Signature | + + + + + + | Culture | No Growth | | [facility] | | | | | [facility] | | | | | | [facility] | | | | | [facility] - | | | | | | LABORATORY | | + + + + + + + + | Specimen | + + | Urine - Urine | | specimen obtained by | | clean catch | | procedure (specimen) | + + + + + + + | Performing | Address | City/State/Zipcode | Phone Number | | Organization | | | | + + + + + | [facility] | [address] | [place] | [phone] | | [facility] | | [address] | | | - LABORATORY | | | | + + + + + Urinalysis with Microscopic with Culture if Indicated (10/16/2018 4:27 PM PST) + + + + + + | Component | Value | Ref Range | Performed | Pathologist | | | | | At | Signature | + + + + + + | Color, | Adriana (A) | Light Yellow, | [facility] | | | Urine | | Yellow, Straw | [facility] | | | | | | [facility] | | | | | | [facility] - | | | | | | LABORATORY | | + + + + + + | Clarity | Cloudy (A) | Clear | [facility] | | | | | | [facility] | | | | | | [facility] | | | | | | [facility] - | | | | | | LABORATORY | | + + + + + + | pH, Urine | 5.0 | 5.0 - 8.0 | [facility] | | | | | | [facility] | | | | | | [facility] | | | | | | C[facility] - | | | | | | LABORATORY | | + + + + + + | Specific | 1.011 | 1.001 - 1.030 | [facility] | | | [place] | | | [facility] | | | | | | [facility] | | | | | | [facility] - | | | | | | LABORATORY | | + + + + + + | Protein, | 100 mg/dL (A) | Negative | [facility] | | | Urine | | | [facility] | | | | | | [facility] | | | | | | C[facility] - | | | | | | LABORATORY | | + + + + + + | Blood, | Large (A) | Negative | [facility] | | | Urine | | | [facility] | | | | | | [facility] | | | | | | CENTER - | | | | | | LABORATORY | | + + + + + + | Glucose, | 50 mg/dL (A) | Negative | [facility] | | | Urine | | | [facility] | | | | | | [facility] | | | | | | CENTER - | | | | | | LABORATORY | | + + + + + + | Ketones, | Negative | Negative | [facility] | | | Urine | | | [facility] | | | | | | [facility] | | | | | | CENTER - | | | | | | LABORATORY | | + + + + + + | Bilirubin, | Negative | Negative | [facility] | | | Urine | | | [facility] | | | | | | [facility] | | | | | | CENTER - | | | | | | LABORATORY | | + + + + + + | Nitrite, | Negative | Negative | [facility] | | | Urine | | | [facility] | | | | | | [facility] | | | | | | CENTER - | | | | | | LABORATORY | | + + + + + + | Leukocyte | Small (A) | Negative | [facility] | | | Esterase, | | | [facility] | | | Urine | | | MEDICAL | | | | | | CENTER - | | | | | | LABORATORY | | + + + + + + | Urobilinoge | Negative | 0.2 mg/dL, 1.0 | [facility] | | | n, Urine | | mg/dL, Negative | [facility] | | | | | | [facility] | | | | | | CENTER - | | | | | | LABORATORY | | + + + + + + | WBC UA | 15-25 (A) | 0 - 2 /HPF | [facility] | | | | | | [facility] | | | | | | [facility] | | | | | | C[facility] - | | | | | | LABORATORY | | + + + + + + | RBC UA | >100 (A) | 0 - 2 /HPF | [facility] | | | | | | [facility] | | | | | | [facility] | | | | | | CENTER - | | | | | | LABORATORY | | + + + + + + | SQUAMOUS | 0-2 | 0 - 2 /LPF | [facility] | | | EPITHELIAL | | | [facility] | | | UA | | | MEDICAL | | | | | | CENTER - | | | | | | LABORATORY | | + + + + + + | BACTERIA UA | 2+ (A) | Negative /HPF | [facility] | | | | | | [facility] | | | | | | [facility] | | | | | | CENTER - | | | | | | LABORATORY | | + + + + + + | HYALINE | 10-15 (A) | 0 - 2 /LPF | [facility] | | | DIANA UA | | | [facility] | | | | | | [facility]ICAL | | | | | | CENTER - | | | | | | LABORATORY | | + + + + + + | URINE | Urine Culture Set Up | | [facility] | | | COMMENT | | | [facility] | | | | | | [facility] | | | | | | CENTER - | | | | | | LABORATORY | | + + + + + + + + | Specimen | + + | Urine - Urine | | specimen obtained by | | clean catch | | procedure (specimen) | + + + + + + + | Performing | Address | City/State/Zipcode | Phone Number | | Organization | | | | + + + + + | [facility] | [address] | [place] | [phone] | | [facility] | | [address] | | | - LABORATORY | | | | + + + + + documented in this encounter Visit Diagnoses + + | Diagnosis | + + | Hematuria, unspecified type - Primary | + + documented in this encounter Additional Health Concerns + + + + | Infection | Noted Time | Resolved Time | + + + + | Methicillin-resistant Staphylococcus aureus | 12/15/2016 12:00 AM | | | | PDT | | + + + + documented as of this encounter
--- OUTSIDE RECORDS SUMMARY | ~2019-10-10 | XMS | Encounter Summary ---
Demographics + + + | Address | [address] | | | [place] [address] | + + + | Home Phone | | + + + | Preferred Language | Unknown | + + + | Marital Status | Single | + + + | Advent Affiliation | 1077 | + + + | Race | Unknown | + + + | Ethnic Group | Unknown | + + + Author + + + | Author | [facility] | | | and [place] | + + + | Organization | [facility] | | | [...] Team Providers + +------+ + | Care Infection Prevention Specialist Name | Role | Phone | + +------+ + | Estrella Light PA-C | PCP | | + +------+ + Encounter Details +--------+ + + + + | Date | Type | Department | Care Team | Description | +--------+ + + + + | 12/14/ | Hospital | [facility] | [place], | Osteomyelitis of | | 2017 - | Encounter | [facility] | MD Pavel [address] | foot, left, acute | | | | CARE FLOOR [address] | [address] | ([facility]); Uncontrolled | | 12/20/ | | [address] | [place] [address] | type 2 diabetes | | 2017 | | [place], [place] | [phone] | mellitus with | | | | [address] | | hyperglycemia, | | | | [phone] | | unspecified long | | | | | | term insulin use | | | | | | status ([facility]); Renal | | | | | [...] 1933 Date of Service: 12/20/161538 Status: Addendum Turkey Egg Gatherer: Bunny Chaney MD (Physician) Related Notes: Original Note by Bunny Chaney MD (Physician) filed at 12/26/16 0644 [facility] Service: Hospitalist Physician Discharge Summary Patient ID: Kuldip Smith [id number] y.o. 1965 Admit date: 12/14/2016 Discharge [...] been approved, which should be given from [facility] ec until further approval from insurance. [...] up: Estrella Light PA-C [address] [place] [address] Rebeca Reza MD [address] [facility] [address] Schedule an appointment as soon as possible for a visit in 10 days Dictation and mass spec or software, HutGrip, used which may contain error for similar [...] - AMPUTATION; Surgeon: Walter Fernandez DPM; Location: [facility] MAIN OR; Service: Podiatry; Laterality: Left; Significant [...] Management by Jenny Vaughan RN at 12/20/16 5915 Author: Jenny Vaughan RN Service: (none) Author Type: Registered Nurse Filed: 12/20/16 4655 Date of Service: 12/20/161538 Status: Signed Turkey Egg Gatherer: Jenny Vaughan RN (Registered Nurse) 1610 - Received call from [facility] stating they are now unable to accept pa tient due to a "freeze on admits". They are aware patient has been discharged and is en rou te to home. They are still unable to accept. Call placed to [facility] OPP rega rding need for services. They state pt will need to arrange wound care/dressing changes thr ough his PCP per insurance requirements. Voicemail left for Coby at [facility] to return call. Will need to call back in morning to schedule appointment as clinic is currently closed. onver ruben Transaction, Provider Unknown - 12/20/2016 3:39 PM PDT Case Management by Mirlande Prescott RN at 12/20/16 2607 Author: Mirlande Prescott RN Service: (none) Author Type: Registered Nurse Filed: 12/21/16 0808 Date of Service: 12/20/16 1539 Status: Signed Turkey Egg Gatherer: Mirlande Prescott RN (Registered Nurse) 0800: Tc to pt's PCP, Coby Light, with [facility], to updat e about [facility] not being able to admit pt. Coby states she and Charlotte will work on getting pt the appropriate wound vac care he needs, they are going to try and get pt into O P wound therapy with [facility] or maybe to OP in [place]. Coby states she will als o call [facility] as to when they can admit pt under their services. Maribel onver ruben Transaction, Provider Unknown - 12/20/2016 1:03 PM PDT Progress Notes by Rachael Molina RN at 12/20/16 1303 Author: Rachael Molina RN Service: Wound/Ostomy Care Author Type: Registered Nurse Filed: 12/20/16 1311 Date of Service: 12/20/16 1303 Status: Signed Turkey Egg Gatherer: Rachael Molina RN (Registered Nurse) Wound care in to switch patient out to portable wound vac unit. This is a sol vac on l oan from [facility]. Explained to patient when his insurance approves his home vac unit, that t his sol vac is to be returned via [employer]. Instructions given in detail, voiced candelaria frias. Photo taken of tracking number and faxed to Alicia [facility] rep. Instructions on how to use the [...] for further protection. Hospital vac dc'd in [facility] express: #[id number] Rachael Molina RN, ON 12/20/2016 1:10 PM onver ruben Transaction, Provider Unknown - 12/20/2016 11:34 AM PDT Case Management by Mirlande Prescott RN at 12/20/16 1134 Author: Mirlande Prescott RN Service: (none) Author Type: Registered Nurse Filed: 12/20/16 1459 Date of Service: 12/20/16 1134 Status: Addendum Turkey Egg Gatherer: Mirlande Prescott RN (Registered Nurse) Related Notes: Original Note by Mirlande Prescott RN (Registered Nurse) filed at 12/20/16 114 9 Per rounding with pt, he will be d/c home today. Pt states his mother will be providing tra nsportation home. Wound vac has been approved by [facility]. [facility] has been set up, and they have been notified about d/c, pt may not be able t o be admitted until . Pt's wound dressing is due Monday. Tc to Angie with wound care, it's not ideal that pt's dressing doesn't get changed until , but it is ok to wait. Dr Chaney was notified and agrees with plan. Tc to Coby [phone] and Charlotte [phone] with [facility]/mannie pickens nd left mssgs of pt's d/c Today. Faxed AVS to [facility] Maribel Iqra Mcgregor PT - 12/20/2016 10:07 AM PDTFormatting of this note might be different from th e original. Therapy Progress Note by Karina Zabala PT at 12/20/16 1007 Author: Karina Zabala PT Service: (none) Author Type: Physical Therapist Filed: 12/20/16 1037 Date of Service: 12/20/16 1007 Status: Signed Turkey Egg Gatherer: Karina Zabala PT (Physical Therapist) 12/20/16 1007 [...] (none) Author Type: Physical Therapist Filed: 12/19/16 8477 Date of Service: 12/19/166 Status: Signed Turkey Egg Gatherer: Natalia Marte PT (Physical Therapist) 12/19/16 1646 PT Last Visit PT Received On 12/19/16 Reason for Treatment Other (comment) (L foot osteomyelitis) Requires PT Follow Up Awaiting tx order Follow up PT Only? Yes (Assistive device assessment) Focus for Next Treatment Equipment Trial;Stair Training (bilateral axillary crutches and stair training) PT Eval/Reassessment Date 12/19/16 Assistance Required 1 person Inside B2B Sales Needed No Home Environment Type of Home Home one story Home Exterior Layout 1-3 steps (2 JEISON) Home Interior Layout Lives on main level with bedroom/bathroom Bathroom Shower/Tub Tub/shower unit Bathroom Toilet Raised Bathroom Equipment Grab bars outside of shower/bath;Raised toilet seat Bathroom Accessibility Not accessible Home Equipment Cane single point;Crutches-axillary Prior Function Level of Andrews Independent with ADLs;Independent with IADLs;Modified independent wi [...] Eval/Reassessment Date 12/19/16 Assistance Required 1 person Inside B2B Sales Needed No Precautions LE Precaution(s) LLE Precautions/WB [...] Notes by Rebeca Reza MD at 12/19/16 3887 Author: Rebeca Reza MD Service: Infectious Disease Author Type: Physician Filed: 12/20/16 0639 Date of Service: 12/19/16 8894 Status: Signed Turkey Egg Gatherer: Rebeca Reza MD (Physician) [facility] Service: Infectious Disease Progress Note Hospital Day: [...] Dec 15 2016 9:30AM Referring Provider Line: [phone] ID: [id number] MRI foot left without contrast [[id number]] Impression 1. Recent amputation of the LEFT 4th toe. 2. No radiographic evidence of residual osteomyelitis in the remaining ossicles of the LEF T forefoot. 3. Moderately extensive vascular calcifications. X-ray foot left [[id number]] PROBLEM LIST Principal Problem: Osteomyelitis (HCC) Active [...] Date of Service: 12/19/16 1103 Status: Signed Turkey Egg Gatherer: Dell Archer DO (Physician) PROGRESS NOTE 12/19/2016 [...] 1103 Date of Service: 12/19/16914 Status: Addendum Turkey Egg Gatherer: Jenny Vaughan RN (Registered Nurse) Related Notes: Original Note by Jenny Vaughan RN (Registered Nurse) filed at 12/19/16 [phone] - [facility] She wi ll be following patient once [...] accept patient. Face to face order faxed ([phone]) Charlotte [facility] RN [phone] Alicia with [facility] notified of wound vac placement. Auth form signed by hospitalist and faxed to Alicia. Lilly with [facility] Care notified of patient discharging on oral antibiotics. onver ruben Transaction, Provider Unknown - 12/18/2016 6:45 PM PDT Nurse Progress Note by Gerber Hay RN at 12/18/161844 Author: Gerber Hay RN Service: (none) Author Type: Registered Nurse Filed: 12/18/161847 Date of Service: 12/18/161844 Status: Signed Turkey Egg Gatherer: Gerber Hay RN (Registered Nurse) Pt resting [...] 12/18/16933 Date of Service: 12/18/16928 Status: Addendum Turkey Egg Gatherer: Dell Archer DO (Physician) Related Notes: Original [...] by Walter Fernandez DPM at 12/18/16854 Author: Waltre Fernandez DPM Service: Podiatry Author Type: Doctor of Podiatric Medi cine Filed: 12/18/16899 Date of Service: 12/18/16854 Status: Signed Turkey Egg Gatherer: Walter Fernandez DPM (Doctor of Podiatric Medicine) [facility]: Podiatry Progress Note Hospital Day: LOS: [...] home health care. Dr. David DPM in [place] take s care of this patient and [...] 12/18/16845 Date of Service: 12/18/16845 Status: Signed Turkey Egg Gatherer: Destini Vargas RPH (Pharmacist) Day 5 Vanco [...] 1108 Date of Service: 12/18/16820 Status: Signed Turkey Egg Gatherer: Rebeca Reza MD (Physician) [facility]: Infectious Disease Progress Note Hospital Day: [...] Dec 15 2016 9:30AM Referring Provider Line: [phone] ID: [id number] MRI foot left without contrast [[id number]] Impression 1. Recent amputation of the LEFT 4th toe. 2. No radiographic evidence of residual osteomyelitis in the remaining ossicles of the LEF T forefoot. 3. Moderately extensive vascular calcifications. X-ray foot left [[id number]] PROBLEM LIST Principal Problem: Osteomyelitis (HCC) Active [...] Note by Jihan Jacinto RPH at 12/17/16 0124 Author: Jihan Jacinto RPH Service: Pharmacy Author Type: Pharmacist Filed: 12/17/162246 Date of Service: 12/17/162246 Status: Signed Turkey Egg Gatherer: Jihan Jacinto RPH (Pharmacist) Clinical Pharmacy Note: [...] 12/17/161750 Date of Service: 12/17/161742 Status: Signed Turkey Egg Gatherer: Gerber Hay RN (Registered Nurse) Wound vac [...] Notes by Rebeca Reza MD at 12/17/16 5370 Author: Rebeca Reza MD Service: Infectious Disease Author Type: Physician Filed: 12/17/16 1703 Date of Service: 12/17/16 1510 Status: Addendum Turkey Egg Gatherer: Rebeca Reza MD (Physician) Related Notes: Original Note by Rebeca Reza MD (Physician) filed at 12/17/16 7024 [facility]: Infectious Disease Progress Note Hospital Day: [...] Dec 15 2016 9:30AM Referring Provider Line: [phone] ID: [id number] MRI foot left without contrast [[id number]] Impression 1. Recent amputation of the LEFT 4th toe. 2. No radiographic evidence of residual osteomyelitis in the remaining ossicles of the LEF T forefoot. 3. Moderately extensive vascular calcifications. X-ray foot left [[id number]] PROBLEM LIST Principal Problem: Osteomyelitis (HCC) Active [...] Doctor of Podiatric Medi cine Filed: 12/17/16 7100 Date of Service: 12/17/16 1406 Status: Signed Turkey Egg Gatherer: Walter Fernandez DPM (Doctor of Podiatric Medicine) [facility]: Podiatry Progress Note Hospital Day: LOS: [...] Note by Gerber Hay RN at 12/17/16 3341 Author: Gerber Hay RN Service: (none) Author Type: Registered Nurse Filed: 12/17/16 9960 Date of Service: 12/17/16 1144 Status: Signed Turkey Egg Gatherer: Gerber Hay RN (Registered Nurse) Pt had [...] Notes by Dell Archer DO at 12/17/16 1053 Author: Dell Archer DO Service: Hospitalist Author Type: Physician Filed: 12/17/16 1103 Date of Service: 12/17/16 1055 Status: Signed Turkey Egg Gatherer: Dell Archer DO (Physician) PROGRESS NOTE 12/17/2016 [...] 12/17/16834 Date of Service: 12/17/16834 Status: Signed Turkey Egg Gatherer: Destini Vargas RPH (Pharmacist) Day 4 Vanco [...] 12/17/168 Date of Service: 12/17/16307 Status: Signed Turkey Egg Gatherer: Jihan Jacinto RPH (Pharmacist) Clinical Pharmacy Note: [...] 12/16/161719 Date of Service: 12/16/161709 Status: Signed Turkey Egg Gatherer: Walter Fernandez DPM (Doctor of Podiatric Medicine) [facility]: Podiatry Progress Note Hospital Day: LOS: [...] Notes by Rebeca Reza MD at 12/16/16 7105 Author: Rebeca Reza MD Service: Infectious Disease Author Type: Physician Filed: 12/16/16 1606 Date of Service: 12/16/160 Status: Signed Turkey Egg Gatherer: Rebeca Reza MD (Physician) [facility]: Infectious Disease Progress Note Hospital Day: [...] Dec 15 2016 9:30AM Referring Provider Line: [phone] ID: [id number] MRI foot left without contrast [[id number]] Impression 1. Recent amputation of the LEFT 4th toe. 2. No radiographic evidence of residual osteomyelitis in the remaining ossicles of the LEF T forefoot. 3. Moderately extensive vascular calcifications. X-ray foot left [[id number]] PROBLEM LIST Principal Problem: Osteomyelitis (HCC) Active [...] Management by Jenny Vaughan RN at 12/16/16 8854 Author: Jenny Vaughan RN Service: (none) Author Type: Registered Nurse Filed: 12/16/16 4723 Date of Service: 12/16/16 2595 Status: Signed Turkey Egg Gatherer: Jenny Comfort, RN (Registered Nurse) 12/16/16 2780 Discharge Planning Evaluation Admitting Diagnosis osteomyelitis Readmission No Living Arrangements Parent Support Systems Parent;Family members Type of Residence Private residence House type House-1 story Steps to enter 2 Independent with ADL's Yes Independent with Mobility Yes Mental Status Oriented Prior functional status not employed, independent Power of Freight Separator No Anticipated Discharge Plan Post Acute Care [...] PCP is: Estrella Light PA-C Patient's insurance: Medicare/[facility] Coverage concerns: None Medication coverage/concerns: None Community resources utilized / needed: TBD pending pt progress and treatment plan. Sascha garcia need home health services along with IV abx. Discussed with patient and he states und erstanding. Referral sent to [facility] for nursing services as patient lives in [place]. Options for home IV abx services provided to pt/family and they do not have a preference. Referral to [facility] will follow. Pt/family requested I notify Coby at the [facility] of pt status as she ar ranges services for them. Contacted Coby and provided current discharge plan. If there is a change in plan, Coby requests to be notified as she will continue to follow patient after discharge. She also states pt will be followed by their community health nurse (Charlotte ) who works alongside [facility]. Coby [facility] [phone] Assistance in transportation: Pt's family is able to provide transportation. Identification of any specific education / training: Pending pt progress Anticipated DCP: TBD. Likely home with home health and IV abx. Jenny Vaughan Dell Jones DO - 12/16/2016 10:12 AM PDTFormatting of this note might be different from the kar ralf. Progress Notes by Dell Archer DO at 12/16/16 1012 Author: Dell Arcehr DO Service: Hospitalist Author Type: Physician Filed: 12/16/16 1017 Date of Service: 12/16/16 1012 Status: Signed Turkey Egg Gatherer: Dell Archer DO (Physician) PROGRESS NOTE 12/16/2016 [...] Date of Service: 12/15/16 1248 Status: Signed Turkey Egg Gatherer: Jenny Vaughan RN (Registered Nurse) Attempted to [...] 12/15/16405 Date of Service: 12/15/16405 Status: Signed Turkey Egg Gatherer: Jihan Jacinto RPH (Pharmacist) Clinical Pharmacy Note: [...] 12/15/16404 Date of Service: 12/15/16404 Status: Signed Turkey Egg Gatherer: Jihan Jacinto RPH (Pharmacist) Clinical Pharmacy Note: [...] | | | Fingerstick | performed at [facility];88 | | LAB | | | | [address];[place] | | | | | | [address] | | | | + + + [...] EXTERNAL | | | | performed at [facility];[address] | | LAB | | | | [address];[place], [place] | | | | | | [address] | | | | + + + [...] EXTERNAL | | | | performed at [facility];888 | K/uL | LAB | | | | [address];[place] | | | | | | [address] | | | | + + + + + + | RED CELL | 4.00 (L)Comment: Testing | 4.20 - 5.70 | EXTERNAL | | | COUNT | performed at [facility];888 | M/uL | LAB | | | | [address];[place] | | | | | | [address] | | | | + + + + + + | Hgb | 11.6 (L)Comment: Testing | 13.2 - 17.0 | EXTERNAL | | | | performed at [facility];888 | g/dL | LAB | | | | [address];[place] | | | | | | [address] | | | | + + + + + + | Hematocrit, | 33.9 (L)Comment: Testing | 39.0 - 50.0 % | EXTERNAL | | | POC | performed at [facility];[address] | | LAB | | | | [address];[place] | | | | | | [address] | | | | + + + + + + | MCV | 84.7Comment: Testing | 80.0 - 100.0 fl | EXTERNAL | | | | performed at [facility];[address] | | LAB | | | | [address];[place] | | | | | | [address] | | | | + + + + + + | MCH | 28.9Comment: Testing | 27.0 - 34.0 pg | EXTERNAL | | | | performed at [facility];[address] | | LAB | | | | [address];[place] | | | | | | [address] | | | | + + + + + + | MCHC | 34.1Comment: Testing | 32.0 - 35.5 | EXTERNAL | | | | performed at [facility];888 | g/dL | LAB | | | | [address];[place] | | | | | | [address] | | | | + + + + + + | RDW-CV | 42.0Comment: Testing | 37 - 53 fl | EXTERNAL | | | | performed at [facility];[address] | | LAB | | | | [address];[place] | | | | | | [address] | | | | + + + + + + | Platelet | 392Comment: Testing | 150 - 400 K/uL | EXTERNAL | | | Count | performed at [facility];888 | | LAB | | | Plasma | [address];[place] | | | | | | [address] | | | | + + + + + + | MPV | 7.0Comment: Testing | fl | EXTERNAL | | | | performed at [facility];[address] | | LAB | | | | [address];[place] | | | | | | [address] | | | | + + + + + + | Differentia | MANUALComment: Testing | | EXTERNAL | | | l Type | performed at [facility];[address] | | LAB | | | | [address];[place] | | | | | | [address] | | | | + + + + + + | Segmented | 69Comment: Testing | % | EXTERNAL | | | Neutrophils | performed at [facility];888 | | LAB | | | Manual | [address];[place] | | | | | | [address] | | | | + + + + + + | Lymphocytes | 21Comment: Testing | % | EXTERNAL | | | Manual | performed at [facility];[address] | | LAB | | | | [address];[place] | | | | | | [address] | | | | + + + + + + | Monocytes | 4Comment: Testing | % | EXTERNAL | | | Manual | performed at [facility];[address] | | LAB | | | | [address];[place] | | | | | | [address] | | | | + + + + + + | Eosinophils | 6Comment: Testing | % | EXTERNAL | | | Manual | performed at [facility];[address] | | LAB | | | | [address];[place] | | | | | | [address] | | | | + + + + + + | Absolute | 5.08Comment: Testing | 1.90 - 7.40 | EXTERNAL | | | Neutrophils | performed at [facility];888 | K/uL | LAB | | | | [address];[place] | | | | | | [address] | | | | + + + + + + | Absolute | 1.55Comment: Testing | 1.00 - 3.90 | EXTERNAL | | | Lymphocytes | performed at [facility];888 | K/uL | LAB | | | | [address];[place] | | | | | | [address] | | | | + + + + + + | Absolute | 0.29Comment: Testing | 0.00 - 0.80 | EXTERNAL | | | Monocytes | performed at [facility];888 | K/uL | LAB | | | | [address];[place] | | | | | | [address] | | | | + + + + + + | Absolute | 0.44Comment: Testing | 0.00 - 0.50 | EXTERNAL | | | Eosinophils | performed at [facility];888 | K/uL | LAB | | | | [address];[place] | | | | | | [address] | | | | + + + + + + | RBC | NORMALComment: Testing | | EXTERNAL | | | Morphology | performed at [facility];[address] | | LAB | | | | [address];[place] | | | | | | [address] | | | | + + + [...] EXTERNAL | | | | performed at [facility];888 | | LAB | | | | [address];[place] | | | | | | [address] | | | | + + + [...] | | | Fingerstick | performed at [facility];888 | | LAB | | | | [address];[place], [place] | | | | | | [address] | | | | + + + [...] | | | Fingerstick | performed at [facility];888 | | LAB | | | | [address];[place] | | | | | | [address] | | | | + + + [...] | | | Fingerstick | performed at [facility];888 | | LAB | | | | [address];[place] | | | | | | [address] | | | | + + + [...] | | | Fingerstick | performed at [facility];888 | | LAB | | | | [address];[place] | | | | | | [address] | | | | + + + [...] | | | Fingerstick | performed at [facility];[address] | | LAB | | | | [address];[place], [place] | | | | | | [address] | | | | + + + [...] | | | Fingerstick | performed at [facility];[address] | | LAB | | | | [address];[place] | | | | | | [address] | | | | + + + [...] | | | Fingerstick | performed at [facility];[address] | | LAB | | | | [address];[place], [place] | | | | | | [address] | | | | + + + [...] | | | Fingerstick | performed at [facility];[address] | | LAB | | | | [address];[place] | | | | | | [address] | | | | + + + [...] | EXTERNAL LAB | | performed at [facility];[address] [place] [address];[place] [address] TOXIN A | | | NEGATIVE Testing performed at | | | [facility];[address] [facility];[place] [address] C DIFF INTERPRETATION | | | Negative for toxigenic C.difficile. Testing performed at | | | [facility];[address] [place] [address];[place] [address] | | + + + + +---------+ [...] | | | Fingerstick | performed at [facility];[address] | | LAB | | | | [address];[place] | | | | | | [address] | | | | + + + [...] EXTERNAL | | | | performed at [facility], [address] | K/uL | LAB | | | | [address], | | | | | | [place] [address] | | | | + + + + + + | RED CELL | 3.92 (L)Comment: Testing | 4.20 - 5.70 | EXTERNAL | | | COUNT | performed at [facility], [address] | M/uL | LAB | | | | [address], | | | | | | [place] [address] | | | | + + + + + + | Hgb | 11.2 (L)Comment: Testing | 13.2 - 17.0 | EXTERNAL | | | | performed at [facility], [address] | g/dL | LAB | | | | [address], | | | | | | [place] [address] | | | | + + + + + + | Hematocrit, | 33.6 (L)Comment: Testing | 39.0 - 50.0 % | EXTERNAL | | | POC | performed at [facility], [address] | | LAB | | | | [address], | | | | | | [place] [address] | | | | + + + + + + | MCV | 85.9Comment: Testing | 80.0 - 100.0 fl | EXTERNAL | | | | performed at [facility], [address] | | LAB | | | | [address], | | | | | | [place] [place] [address] | | | | + + + + + + | MCH | 28.7Comment: Testing | 27.0 - 34.0 pg | EXTERNAL | | | | performed at [facility], [address] | | LAB | | | | [address], | | | | | | [place] [address] | | | | + + + + + + | MCHC | 33.4Comment: Testing | 32.0 - 35.5 | EXTERNAL | | | | performed at [facility], [address] | g/dL | LAB | | | | [address], | | | | | | [place] [address] | | | | + + + + + + | RDW-CV | 41.1Comment: Testing | 37 - 53 fl | EXTERNAL | | | | performed at [facility], [address] | | LAB | | | | [address], | | | | | | [place] [address] | | | | + + + + + + | Platelet | 341Comment: Testing | 150 - 400 K/uL | EXTERNAL | | | Count | performed at [facility], [address] | | LAB | | | Plasma | [address], | | | | | | [place] [address] | | | | + + + + + + | MPV | 7.6Comment: Testing | fl | EXTERNAL | | | | performed at [facility], [address] | | LAB | | | | [address], | | | | | | [place] [address] | | | | + + + + + + | Differentia | AUTOMATEDComment: | | EXTERNAL | | | l Type | Testing performed at | | LAB | | | | [facility], [address] | | | | | | [place] | | | | | | [address] | | | | + + + + + + | % Segmented | 76.22Comment: Testing | % | EXTERNAL | | | | performed at [facility], [address] | | LAB | | | Neutrophils | [address], | | | | | | [place] [address] | | | | + + + + + + | % | 12.04Comment: Testing | % | EXTERNAL | | | Lymphocytes | performed at [facility], [address] | | LAB | | | | [address], | | | | | | [place] [address] | | | | + + + + + + | % Monocytes | 6.15Comment: Testing | % | EXTERNAL | | | | performed at [facility], [address] | | LAB | | | [address], | | | | | | [place] [address] | | | | + + + + + + | % | 4.73Comment: Testing | % | EXTERNAL | | | Eosinophils | performed at [facility], [address] | | LAB | | | | [address], | | | | | | [place] [address] | | | | + + + + + + | % Basophils | 0.86Comment: Testing | % | EXTERNAL | | | | performed at [facility], [address] | | LAB | | | | [address], | | | | | | [place] [address] | | | | + + + + + + | Absolute | 8.38 (H)Comment: Testing | 1.90 - 7.40 | EXTERNAL | | | Segmented | performed at [facility], [address] | K/uL | LAB | | | Neutrophils | [address], | | | | | | [place] [address] | | | | + + + + + + | Absolute | 1.32Comment: Testing | 1.00 - 3.90 | EXTERNAL | | | Lymphocytes | performed at [facility], [address] | K/uL | LAB | | | | [address], | | | | | | [place] [address] | | | | + + + + + + | Absolute | 0.68Comment: Testing | 0.00 - 0.80 | EXTERNAL | | | Monocytes | performed at [facility], [address] | K/uL | LAB | | | | [address], | | | | | | [place] [address] | | | | + + + + + + | Absolute | 0.52 (H)Comment: Testing | 0.00 - 0.50 | EXTERNAL | | | Eosinophils | performed at [facility], [address] | K/uL | LAB | | | | [address], | | | | | | [place] [address] | | | | + + + + + + | Absolute | 0.10Comment: Testing | 0.00 - 0.10 | EXTERNAL | | | Basophils | performed at [facility], [address] | K/uL | LAB | | | | [address], | | | | | | [place] [address] | | | | + + + [...] | | | | [place] [address] | | | | + + + + + + | K | 3.8Comment: Testing | 3.5 - 4.9 | EXTERNAL | | | | performed at [facility], [address] | mmol/L | LAB | | | | [address], | | | | | | [place] [address] | | | | + + + + + + | Cl | 105Comment: Testing | 99 - 109 mmol/L | EXTERNAL | | | | performed at [facility], [address] | | LAB | | | | [address], | | | | | | [place] [address] | | | | + + + + + + | CO2 | 25Comment: Testing | 23 - 32 mmol/L | EXTERNAL | | | | performed at [facility], [address] | | LAB | | | | [address], | | | | | | [place] [address] | | | | + + + + + + | Anion Gap | 12Comment: Testing | 5 - 20 mmol/L | EXTERNAL | | | | performed at [facility], [address] | | LAB | | | | [address], | | | | | | [place] [address] | | | | + + + + + + | Glucose, | 236 (H)Comment: Testing | 65 - 99 mg/dL | EXTERNAL | | | Fasting | performed at [facility], [address] | | LAB | | | | [address], | | | | | | [place] [address] | | | | + + + + + + | BUN | 6 (L)Comment: Testing | 8 - 25 mg/dL | EXTERNAL | | | | performed at [facility], [address] | | LAB | | | | [address], | | | | | | [place] [address] | | | | + + + + + + | Creatinine | 0.9Comment: Testing | 0.70 - 1.30 | EXTERNAL | | | | performed at [facility], [address] | mg/dL | LAB | | | | [address], | | | | | | [place] [address] | | | | + + + + + + | BUN/Creatin | 7Comment: Testing | | EXTERNAL | | | ine Ratio | performed at [facility], [address] | | LAB | | | | [address], | | | | | | [place] [address] | | | | + + + + + + | Calcium | 8.3 (L)Comment: Testing | 8.5 - 10.5 | EXTERNAL | | | | performed at [facility], [address] | mg/dL | LAB | | | | [address], | | | | | | [place] [address] | | | | + + + [...] Man, | | | | | | [place] [address] | | | | + + + [...] | | | Fingerstick | performed at [facility];88 | | LAB | | | | [address];[place] | | | | | | [address] | | | | + + + [...] | | | | | performed at [facility];[address] | | | | | | [address];[place] | | | | | | [address] | | | | + + + [...] | | | Fingerstick | performed at [facility];[address] | | LAB | | | | [address];[place], [place] | | | | | | [address] | | | | + + + [...] | | | Fingerstick | performed at [facility];[address] | | LAB | | | | [address];[place] | | | | | | [address] | | | | + + + [...] | | | Fingerstick | performed at [facility];[address] | | LAB | | | | [address];[place] | | | | | | [address] | | | | + + + [...] [place] | | | | | | [address] | | | | + + + + + + | RED CELL | 4.13 (L)Comment: Testing | 4.20 - 5.70 | EXTERNAL | | | COUNT | performed at [facility], [address] | M/uL | LAB | | | | [address], | | | | | | [place] [address] | | | | + + + + + + | Hgb | 11.7 (L)Comment: Testing | 13.2 - 17.0 | EXTERNAL | | | | performed at [facility], [address] | g/dL | LAB | | | | [address], | | | | | | [place] [address] | | | | + + + + + + | Hematocrit, | 34.8 (L)Comment: Testing | 39.0 - 50.0 % | EXTERNAL | | | POC | performed at [facility], [address] | | LAB | | | | [address], | | | | | | [place] [address] | | | | + + + + + + | MCV | 84.2Comment: Testing | 80.0 - 100.0 fl | EXTERNAL | | | | performed at [facility], [address] | | LAB | | | | [address], | | | | | | [place] [address] | | | | + + + + + + | MCH | 28.2Comment: Testing | 27.0 - 34.0 pg | EXTERNAL | | | | performed at [facility], [address] | | LAB | | | | [address], | | | | | | [place] [address] | | | | + + + + + + | MCHC | 33.5Comment: Testing | 32.0 - 35.5 | EXTERNAL | | | | performed at [facility], [address] | g/dL | LAB | | | | [address], | | | | | | [place] [address] | | | | + + + + + + | RDW-CV | 42.0Comment: Testing | 37 - 53 fl | EXTERNAL | | | | performed at [facility], [address] | | LAB | | | | [address], | | | | | | [place] [address] | | | | + + + + + + | Platelet | 329Comment: Testing | 150 - 400 K/uL | EXTERNAL | | | Count | performed at [facility], [address] | | LAB | | | Plasma | [address], | | | | | | [place] [address] | | | | + + + + + + | MPV | 7.9Comment: Testing | fl | EXTERNAL | | | | performed at [facility], [address] | | LAB | | | | [address], | | | | | | [place] [address] | | | | + + + + + + | Differentia | AUTOMATEDComment: | | EXTERNAL | | | l Type | Testing performed at | | LAB | | | | [facility], [address] | | | | | | [place] | | | | | | [address] | | | | + + + + + + | % Segmented | 83.29Comment: Testing | % | EXTERNAL | | | | performed at [facility], [address] | | LAB | | | Neutrophils | [address], | | | | | | [place] [address] | | | | + + + + + + | % | 8.71Comment: Testing | % | EXTERNAL | | | Lymphocytes | performed at [facility], [address] | | LAB | | | | [address], | | | | | | [place] [address] | | | | + + + + + + | % Monocytes | 5.08Comment: Testing | % | EXTERNAL | | | | performed at [facility], [address] | | LAB | | | | [address], | | | | | | [place] [address] | | | | + + + + + + | % | 2.32Comment: Testing | % | EXTERNAL | | | Eosinophils | performed at [facility], [address] | | LAB | | | | [address], | | | | | | [place] [address] | | | | + + + + + + | % Basophils | 0.60Comment: Testing | % | EXTERNAL | | | | performed at [facility], [address] | | LAB | | | | [address], | | | | | | [place] [address] | | | | + + + + + + | Absolute | 12.15 (H)Comment: | 1.90 - 7.40 | EXTERNAL | | | Segmented | Testing performed at | K/uL | LAB | | | Neutrophils | [facility], [address] | | | | | | [place] | | | | | | [address] | | | | + + + + + + | Absolute | 1.27Comment: Testing | 1.00 - 3.90 | EXTERNAL | | | Lymphocytes | performed at [facility], [address] | K/uL | LAB | | | | [address], | | | | | | [place] [address] | | | | + + + + + + | Absolute | 0.74Comment: Testing | 0.00 - 0.80 | EXTERNAL | | | Monocytes | performed at [facility], [address] | K/uL | LAB | | | | [address], | | | | | | [place] [address] | | | | + + + + + + | Absolute | 0.34Comment: Testing | 0.00 - 0.50 | EXTERNAL | | | Eosinophils | performed at [facility], [address] | K/uL | LAB | | | | [address], | | | | | | [place] [address] | | | | + + + + + + | Absolute | 0.09Comment: Testing | 0.00 - 0.10 | EXTERNAL | | | Basophils | performed at [facility], [address] | K/uL | LAB | | | | [address], | | | | | | [place] [address] | | | | + + + [...] | | | | [place] [address] | | | | + + + + + + | K | 3.8Comment: Testing | 3.5 - 4.9 | EXTERNAL | | | | performed at [facility], [address] | mmol/L | LAB | | | | [address], | | | | | | [place] [address] | | | | + + + + + + | Cl | 104Comment: Testing | 99 - 109 mmol/L | EXTERNAL | | | | performed at [facility], [address] | | LAB | | | | [address], | | | | | | [place] [address] | | | | + + + + + + | CO2 | 27Comment: Testing | 23 - 32 mmol/L | EXTERNAL | | | | performed at [facility], [address] | | LAB | | | | [address], | | | | | | [place] [address] | | | | + + + + + + | Anion Gap | 11Comment: Testing | 5 - 20 mmol/L | EXTERNAL | | | | performed at [facility], [address] | | LAB | | | | [address], | | | | | | [place] [address] | | | | + + + + + + | Glucose, | 196 (H)Comment: Testing | 65 - 99 mg/dL | EXTERNAL | | | Fasting | performed at [facility], [address] | | LAB | | | | [address], | | | | | | [place] [address] | | | | + + + + + + | BUN | 5 (L)Comment: Testing | 8 - 25 mg/dL | EXTERNAL | | | | performed at [facility], [address] | | LAB | | | | [address], | | | | | | [place] [address] | | | | + + + + + + | Creatinine | 0.9Comment: Testing | 0.70 - 1.30 | EXTERNAL | | | | performed at [facility], [address] | mg/dL | LAB | | | | [address], | | | | | | [place] [address] | | | | + + + + + + | BUN/Creatin | 6Comment: Testing | | EXTERNAL | | | ine Ratio | performed at [facility], [address] | | LAB | | | | [address], | | | | | | [place] [address] | | | | + + + + + + | Calcium | 8.4 (L)Comment: Testing | 8.5 - 10.5 | EXTERNAL | | | | performed at [facility], [address] | mg/dL | LAB | | | | [address], | | | | | | [place] [address] | | | | + + + [...] | | | | | | at [facility], [address] | | | | | | [address], | | | | | | [place] [address] | | | | + + + [...] | | | Fingerstick | performed at [facility];[address] | | LAB | | | | [address];[place] | | | | | | [address] | | | | + + + [...] | | | Fingerstick | performed at [facility];8 | | LAB | | | | [address];[place] | | | | | | [address] | | | | + + + [...] | | | | | performed at [facility] | | | | | | [facility];[place], [place] | | | | | | [address] | | | | + + + [...] | | | Fingerstick | performed at [facility];[address] | | LAB | | | | [address];[place] | | | | | | [address] | | | | + + + [...] | | | Fingerstick | performed at [facility];[address] | | LAB | | | | [address];[place], [place] | | | | | | [address] | | | | + + + [...] | | | | [facility], [address] [facility] | | | | | | [place] | | | | | | [address] | | | | + + + + + + | RED CELL | 4.31Comment: Testing | 4.20 - 5.70 | EXTERNAL | | | COUNT | performed at [facility], [address] | M/uL | LAB | | | | [address], | | | | | | [place] [address] | | | | + + + + + + | Hgb | 12.3 (L)Comment: Testing | 13.2 - 17.0 | EXTERNAL | | | | performed at [facility], [address] | g/dL | LAB | | | | [address], | | | | | | [place] [address] | | | | + + + + + + | Hematocrit, | 36.4 (L)Comment: Testing | 39.0 - 50.0 % | EXTERNAL | | | POC | performed at [facility], [address] | | LAB | | | | [address], | | | | | | [place] [address] | | | | + + + + + + | MCV | 84.5Comment: Testing | 80.0 - 100.0 fl | EXTERNAL | | | | performed at [facility], [address] | | LAB | | | [address], | | | | | | [place] [address] | | | | + + + + + + | MCH | 28.5Comment: Testing | 27.0 - 34.0 pg | EXTERNAL | | | | performed at [facility], [address] | | LAB | | | | [address], | | | | | | [place] [address] | | | | + + + + + + | MCHC | 33.8Comment: Testing | 32.0 - 35.5 | EXTERNAL | | | | performed at [facility], [address] | g/dL | LAB | | | | [address], | | | | | | [place] [address] | | | | + + + + + + | RDW-CV | 42.9Comment: Testing | 37 - 53 fl | EXTERNAL | | | | performed at [facility], [address] | | LAB | | | | [address], | | | | | | [place] [address] | | | | + + + + + + | Platelet | 307Comment: Testing | 150 - 400 K/uL | EXTERNAL | | | Count | performed at [facility], [address] | | LAB | | | Plasma | [address], | | | | | | [place] [address] | | | | + + + + + + | MPV | 8.0Comment: Testing | fl | EXTERNAL | | | | performed at [facility], [address] | | LAB | | | | [address], | | | | | | [place] [address] | | | | + + + + + + | Differentia | AUTOMATEDComment: | | EXTERNAL | | | l Type | Testing performed at | | LAB | | | | [facility], [address] | | | | | | [place] | | | | | | [address] | | | | + + + + + + | % Segmented | 85.00Comment: Testing | % | EXTERNAL | | | | performed at [facility], [address] | | LAB | | | Neutrophils | [address], | | | | | | [place] [address] | | | | + + + + + + | % | 7.15Comment: Testing | % | EXTERNAL | | | Lymphocytes | performed at [facility], [address] | | LAB | | | | [address], | | | | | | [place] [address] | | | | + + + + + + | % Monocytes | 5.39Comment: Testing | % | EXTERNAL | | | | performed at [facility], [address] | | LAB | | | [address], | | | | | | [place] [address] | | | | + + + + + + | % | 1.86Comment: Testing | % | EXTERNAL | | | Eosinophils | performed at [facility], [address] | | LAB | | | [address], | | | | | | [place] [address] | | | | + + + + + + | % Basophils | 0.60Comment: Testing | % | EXTERNAL | | | | performed at [facility], [address] | | LAB | | | | [address], | | | | | | [place] [address] | | | | + + + + + + | Absolute | 13.51 (H)Comment: | 1.90 - 7.40 | EXTERNAL | | | Segmented | Testing performed at | K/uL | LAB | | | Neutrophils | [facility], [address] | | | | | | [place] | | | | | | [address] | | | | + + + + + + | Absolute | 1.14Comment: Testing | 1.00 - 3.90 | EXTERNAL | | | Lymphocytes | performed at [facility], [address] | K/uL | LAB | | | | [address], | | | | | | [place] [address] | | | | + + + + + + | Absolute | 0.86 (H)Comment: Testing | 0.00 - 0.80 | EXTERNAL | | | Monocytes | performed at [facility], [address] | [address]/uL | LAB | | | | [address], | | | | | | [place] [address] | | | | + + + + + + | Absolute | 0.30Comment: Testing | 0.00 - 0.50 | EXTERNAL | | | Eosinophils | performed at [facility], [address] | K/uL | LAB | | | | [address], | | | | | | [place] [address] | | | | + + + + + + | Absolute | 0.10Comment: Testing | 0.00 - 0.10 | EXTERNAL | | | Basophils | performed at [facility], [address] | K/uL | LAB | | | | [address], | | | | | | [place] [address] | | | | + + + [...] EXTERNAL | | | | performed at [facility], [address] | mmol/L | LAB | | | | [address], | | | | | | [place] [address] | | | | + + + + + + | K | 4.0Comment: Testing | 3.5 - 4.9 | EXTERNAL | | | | performed at [facility], [address] | mmol/L | LAB | | | | [address], | | | | | | [place] [address] | | | | + + + + + + | Cl | 103Comment: Testing | 99 - 109 mmol/L | EXTERNAL | | | | performed at [facility], [address] | | LAB | | | | [address], | | | | | | [place] [address] | | | | + + + + + + | CO2 | 24Comment: Testing | 23 - 32 mmol/L | EXTERNAL | | | | performed at [facility], [address] | | LAB | | | | [address], | | | | | | [place] [address] | | | | + + + + + + | Anion Gap | 14Comment: Testing | 5 - 20 mmol/L | EXTERNAL | | | | performed at [facility], [address] | | LAB | | | | [address], | | | | | | [place] [address] | | | | + + + + + + | Glucose, | 207 (H)Comment: Testing | 65 - 99 mg/dL | EXTERNAL | | | Fasting | performed at [facility], [address] | | LAB | | | | [address], | | | | | | [place] [address] | | | | + + + + + + | BUN | 7 (L)Comment: Testing | 8 - 25 mg/dL | EXTERNAL | | | | performed at [facility], [address] | | LAB | | | | [address], | | | | | | [place] [address] | | | | + + + + + + | Creatinine | 0.9Comment: Testing | 0.70 - 1.30 | EXTERNAL | | | | performed at [facility], [address] | mg/dL | LAB | | | | [address], | | | | | | [place] [address] | | | | + + + + + + | BUN/Creatin | 8Comment: Testing | | EXTERNAL | | | ine Ratio | performed at [facility], [address] | | LAB | | | | [address], | | | | | | [place] [address] | | | | + + + + + + | Calcium | 8.2 (L)Comment: Testing | 8.5 - 10.5 | EXTERNAL | | | | performed at [facility], [address] | mg/dL | LAB | | | | [address], | | | | | | [place] [address] | | | | + + + [...] W | | | | | | [address], | | | | | | [place] [address] | | | | + + + [...] | | | Fingerstick | performed at [facility];[address] | | LAB | | | | [address];[place], [place] | | | | | | [address] | | | | + + + [...] tip, including the nail bed, displays a dc-black firm | | | mummification with areas [...] with a red-brown discoloration of the bone. Clinical Haematologist | | | sections are submitted in cassette B1 and placed into decal prior to | | | processing. [facility] MICROSCOPIC EXAMINATION: A-B. Histologic | | | sections of all submitted blocks are examined by light microscopy. | | | These findings, together with the gross examination, support the | | | pathologic diagnosis. PERFORMING LABORATORY: Professional | | | interpretation and technical preparation was performed by [facility] | | | [facility], [address], | | | [place] [address] (Heavy Equipment Mechanic: Rafat Lorenzo M.D.; [facility]#: | | | [id number]). Diagnostician: Isi Gore MD Pathologist | | [...] | | | Fingerstick | performed at [facility];[address] | | LAB | | | | [address];[place] | | | | | | [address] | | | | + + + [...] | | | Fingerstick | performed at [facility];[address] | | LAB | | | | [address];[place], [place] | | | | | | [address] | | | | + + + [...] | | | Fingerstick | performed at [facility];[address] | | LAB | | | | [address];[place] | | | | | | [address] | | | | + + + [...] EXTERNAL | | | | performed at [facility];[address] | | LAB | | | | [address];[place] | | | | | | [address] | | | | + + + + + + | PCO2 ART | 32 (L)Comment: Testing | 35 - 45 mmHg | EXTERNAL | | | | performed at [facility];[address] | | LAB | | | | [address];[place] | | | | | | [address] | | | | + + + + + + | PO2 ART | 81Comment: Testing | 80 - 105 mmHg | EXTERNAL | | | | performed at [facility];[address] | | LAB | | | | [address];[place] | | | | | | [address] | | | | + + + + + + | Lactate, | <0.30 (L)Comment: | 0.36 - 1.25 | EXTERNAL | | | Arterial | Testing performed at | mmol/L | LAB | | | | [address];[place] [address] | | | | + + + + + + | HCO3 ART | 19 (L)Comment: Testing | 22 - 26 mmol/L | EXTERNAL | | | | performed at [facility];[address] | | LAB | | | | [address];[place] | | | | | | [address] | | | | + + + + + + | POC | 20 (L)Comment: Testing | 23 - 27 mEq/L | EXTERNAL | | | APPEARANCE | performed at [facility];[address] | | LAB | | | UA | [address];[place] | | | | | | [address] | | | | + + + + + + | Base | 6 (H)Comment: Testing | 0.0 - 2.0 | EXTERNAL | | | deficit | performed at [facility];[address] | mmol/L | LAB | | | | [address];[place] | | | | | | [address] | | | | + + + + + + | O2 SAT ART | 96Comment: Testing | 95 - 98 % | EXTERNAL | | | | performed at [facility];[address] | | LAB | | | | [address];[place] | | | | | | [address] | | | | + + + + + + | FiO2, POC | 21Comment: Testing | % | EXTERNAL | | | | performed at [facility];[address] | | LAB | | | | [address];[place] | | | | | | [address] | | | | + + + [...] EXTERNAL | | | | performed at [facility];[address] | mmol/L | LAB | | | | [address];[place], [place] | | | | | | [address] | | | | + + + [...] | | | Fingerstick | performed at [facility];[address] | | LAB | | | | [address];[place], [place] | | | | | | [address] | | | | + + + [...] EXTERNAL | | | | performed at [facility], [address] | | LAB | | | | [address], | | | | | | [place] [address] | | | | + + + + + + | Clarity | CLEARComment: Testing | | EXTERNAL | | | | performed at [facility], [address] | | LAB | | | | [address], | | | | | | [place] [address] | | | | + + + + + + | Specific | 1.022Comment: Testing | 1.002 - 1.030 | EXTERNAL | | | [place] | performed at [facility], [address] | | LAB | | | | [address], | | | | | | [place] [address] | | | | + + + + + + | Leukocyte | NEGATIVEComment: | | EXTERNAL | | | Esterase, | Testing performed at | | LAB | | | Urine | [facility], [address] | | | | | | [place] | | | | | | [address] | | | | + + + + + + | Nitrite, | NEGATIVEComment: Testing | | EXTERNAL | | | Urine | performed at [facility], [address] | | LAB | | | | [address], | | | | | | [place] [address] | | | | + + + + + + | Urobilinoge | NORMALComment: Testing | mg/dL | EXTERNAL | | | n, Urine | performed at [facility], [address] | | LAB | | | | [address], | | | | | | [place] [address] | | | | + + + + + + | Protein, | NEGATIVEComment: Testing | mg/dL | EXTERNAL | | | Urine | performed at [facility], [address] | | LAB | | | | [address], | | | | | | [place] [address] | | | | + + + + + + | pH, Urine | 6.0Comment: Testing | 5.0 - 8.0 | EXTERNAL | | | | performed at [facility], [address] | | LAB | | | | [address], | | | | | | [place] [address] | | | | + + + + + + | Blood, | NEGATIVEComment: Testing | | EXTERNAL | | | Urine | performed at [facility], [address] | | LAB | | | | [address], | | | | | | [place] [address] | | | | + + + + + + | Ketones | NEGATIVEComment: Testing | mg/dL | EXTERNAL | | | | performed at [facility], [address] | | LAB | | | | [address], | | | | | | [place] [address] | | | | + + + + + + | Bilirubin, | NEGATIVEComment: Testing | | EXTERNAL | | | Urine | performed at [facility], [address] | | LAB | | | | [address], | | | | | | [place] [address] | | | | + + + + + + | Glucose, | >500 (A)Comment: Testing | mg/dL | EXTERNAL | | | Urine | performed at [facility], [address] | | LAB | | | | [address], | | | | | | [place] [address] | | | | + + + [...] | | LAB | | | | [facility];[address];[place] [address] | | | | + + + + + + | PCO2 ART | 56 (H)Comment: Testing | 35 - 45 mmHg | EXTERNAL | | | | performed at [facility];[address] | | LAB | | | | [address];[place] | | | | | | [address] | | | | + + + + + + | PO2 ART | 74 (L)Comment: Testing | 80 - 105 mmHg | EXTERNAL | | | | performed at [facility];[address] | | LAB | | | | [address];[place] | | | | | | [address] | | | | + + + + + + | Lactate, | 7.11 (H)Comment: Testing | 0.36 - 1.25 | EXTERNAL | | | Arterial | performed at [facility];888 | mmol/L | LAB | | | | [address];[place] | | | | | | [address] | | | | + + + + + + | HCO3 ART | 9 (L)Comment: Testing | 22 - 26 mmol/L | EXTERNAL | | | | performed at [facility];[address] | | LAB | | | | [address];[place] | | | | | | [address] | | | | + + + + + + | POC | 11 (L)Comment: Testing | 23 - 27 mEq/L | EXTERNAL | | | APPEARANCE | performed at [facility];[address] | | LAB | | | UA | [address];[place] | | | | | | [address] | | | | + + + + + + | Base | 25 (H)Comment: Testing | 0.0 - 2.0 | EXTERNAL | | | deficit | performed at [facility];888 | mmol/L | LAB | | | | [address];[place] | | | | | | [address] | | | | + + + + + + | O2 SAT ART | 77 (L)Comment: Testing | 95 - 98 % | EXTERNAL | | | | performed at [facility];[address] | | LAB | | | | [address];[place] | | | | | | [address] | | | | + + + + + + | FiO2, POC | 100Comment: Testing | % | EXTERNAL | | | | performed at [facility];[address] | | LAB | | | | [address];[place] | | | | | | [address] | | | | + + + [...] [place] | | | | | | [address] | | | | + + + + + + | RED CELL | 4.04 (L)Comment: Testing | 4.20 - 5.70 | EXTERNAL | | | COUNT | performed at [facility], [address] | M/uL | LAB | | | | [address], | | | | | | [place] [address] | | | | + + + + + + | Hgb | 11.4 (L)Comment: Testing | 13.2 - 17.0 | EXTERNAL | | | | performed at [facility], [address] | g/dL | LAB | | | | [address], | | | | | | [place] [address] | | | | + + + + + + | Hematocrit, | 35.1 (L)Comment: Testing | 39.0 - 50.0 % | EXTERNAL | | | POC | performed at [facility], [address] | | LAB | | | | [address], | | | | | | [place] [address] | | | | + + + + + + | MCV | 86.7Comment: Testing | 80.0 - 100.0 fl | EXTERNAL | | | | performed at [facility], [address] | | LAB | | | | [address], | | | | | | [place] [address] | | | | + + + + + + | MCH | 28.2Comment: Testing | 27.0 - 34.0 pg | EXTERNAL | | | | performed at [facility], [address] | | LAB | | | [address], | | | | | | [place] [address] | | | | + + + + + + | MCHC | 32.5Comment: Testing | 32.0 - 35.5 | EXTERNAL | | | | performed at [facility], [address] | g/dL | LAB | | | | [address], | | | | | | [place] [address] | | | | + + + + + + | RDW-CV | 42.0Comment: Testing | 37 - 53 fl | EXTERNAL | | | | performed at [facility], [address] | | LAB | | | | [address], | | | | | | [place] [address] | | | | + + + + + + | Platelet | 262Comment: Testing | 150 - 400 K/uL | EXTERNAL | | | Count | performed at [facility], [address] | | LAB | | | Plasma | [address], | | | | | | [place] [address] | | | | + + + + + + | MPV | 8.4Comment: Testing | fl | EXTERNAL | | | | performed at [facility], [address] | | LAB | | | | [address], | | | | | | [place] [address] | | | | + + + + + + | Differentia | AUTOMATEDComment: | | EXTERNAL | | | l Type | Testing performed at | | LAB | | | | [facility], [address] | | | | | | [place] | | | | | | [address] | | | | + + + + + + | % Segmented | 82.60Comment: Testing | % | EXTERNAL | | | | performed at [facility], [address] | | LAB | | | Neutrophils | [address], | | | | | | [place] [address] | | | | + + + + + + | % | 7.47Comment: Testing | % | EXTERNAL | | | Lymphocytes | performed at [facility], [address] | | LAB | | | | [address], | | | | | | [place] [address] | | | | + + + + + + | % Monocytes | 6.29Comment: Testing | % | EXTERNAL | | | | performed at [facility], [address] | | LAB | | | | [address], | | | | | | [place] [address] | | | | + + + + + + | % | 3.29Comment: Testing | % | EXTERNAL | | | Eosinophils | performed at [facility], [address] | | LAB | | | | [address], | | | | | | [place] [address] | | | | + + + + + + | % Basophils | 0.35Comment: Testing | % | EXTERNAL | | | | performed at [facility], [address] | | LAB | | | | [address], | | | | | | [place] [address] | | | | + + + + + + | Absolute | 13.94 (H)Comment: | 1.90 - 7.40 | EXTERNAL | | | Segmented | Testing performed at | K/uL | LAB | | | Neutrophils | [facility], [address] | | | | | | [place] | | | | | | [address] | | | | + + + + + + | Absolute | 1.26Comment: Testing | 1.00 - 3.90 | EXTERNAL | | | Lymphocytes | performed at [facility], [address] | K/uL | LAB | | | | [address], | | | | | | [place] [address] | | | | + + + + + + | Absolute | 1.06 (H)Comment: Testing | 0.00 - 0.80 | EXTERNAL | | | Monocytes | performed at [facility], [address] | K/uL | LAB | | | | [address], | | | | | | [place] [address] | | | | + + + + + + | Absolute | 0.56 (H)Comment: Testing | 0.00 - 0.50 | EXTERNAL | | | Eosinophils | performed at [facility], [address] | K/uL | LAB | | | | [address], | | | | | | [place] [address] | | | | + + + + + + | Absolute | 0.06Comment: Testing | 0.00 - 0.10 | EXTERNAL | | | Basophils | performed at [facility], [address] | K/uL | LAB | | | | [address], | | | | | | [place] [address] | | | | + + + [...] EXTERNAL | | | | performed at [facility], [address] | | LAB | | | | [address], | | | | | | [place] [address] | | | | + + + [...] EXTERNAL | | | | performed at [facility], [address] | | LAB | | | | [address], | | | | | | [place] [address] | | | | + + + [...] | EXTERNAL | | | A1c | [place] Diabetes | | LAB | | | [...] | | | | | performed at [facility], [address] | | | | | | [address] [facility], | | | | | | [place] [address] | | | | + + + [...] | | | | | performed at [facility], [address] | | | | | | [facility], | | | | | | [place] [address] | | | | + + + [...] | | | | [place] [address] | | | | + + + + + + | K | 4.6Comment: Testing | 3.5 - 4.9 | EXTERNAL | | | | performed at [facility], [address] | mmol/L | LAB | | | | [address], | | | | | | [place] [address] | | | | + + + + + + | Cl | 103Comment: Testing | 99 - 109 mmol/L | EXTERNAL | | | | performed at [facility], [address] | | LAB | | | | [address], | | | | | | [place] [address] | | | | + + + + + + | CO2 | 22 (L)Comment: Testing | 23 - 32 mmol/L | EXTERNAL | | | | performed at [facility], [address] | | LAB | | | | [address], | | | | | | [place] [address] | | | | + + + + + + | Anion Gap | 14Comment: Testing | 5 - 20 mmol/L | EXTERNAL | | | | performed at [facility], [address] | | LAB | | | | [address], | | | | | | [place] [address] | | | | + + + + + + | Glucose, | 392 (H)Comment: Testing | 65 - 99 mg/dL | EXTERNAL | | | Fasting | performed at [facility], [address] | | LAB | | | | [address], | | | | | | [place] [address] | | | | + + + + + + | BUN | 12Comment: Testing | 8 - 25 mg/dL | EXTERNAL | | | | performed at [facility], [address] | | LAB | | | | [address], | | | | | | [place] [address] | | | | + + + + + + | Creatinine | 1.0Comment: Testing | 0.70 - 1.30 | EXTERNAL | | | | performed at [facility], [address] | mg/dL | LAB | | | | [address], | | | | | | [place] [address] | | | | + + + + + + | BUN/Creatin | 12Comment: Testing | | EXTERNAL | | | ine Ratio | performed at [facility], [address] | | LAB | | | | [address], | | | | | | [place] [address] | | | | + + + + + + | Calcium | 7.6 (L)Comment: Testing | 8.5 - 10.5 | EXTERNAL | | | | performed at [facility], [address] | mg/dL | LAB | | | | [address], | | | | | | [place] [address] | | | | + + + + + + | Protein, | 6.4Comment: Testing | 6.3 - 8.2 g/dL | EXTERNAL | | | Total | performed at [facility], [address] | | LAB | | | | [address], | | | | | | [place] [address] | | | | + + + + + + | Albumin | 2.2 (L)Comment: Testing | 3.6 - 5.0 g/dL | EXTERNAL | | | | performed at [facility], [address] | | LAB | | | | [address], | | | | | | [place] [address] | | | | + + + + + + | Globulin | 4.2Comment: Testing | 1.3 - 4.9 g/dL | EXTERNAL | | | | performed at [facility], [address] | | LAB | | | | [address], | | | | | | [place] [address] | | | | + + + + + + | A/G Ratio | 0.5 (L)Comment: Testing | 1.0 - 2.4 | EXTERNAL | | | | performed at [facility], [address] | | LAB | | | | [address], | | | | | | [place] [address] | | | | + + + + + + | Bilirubin | 0.6Comment: Testing | 0.1 - 1.5 mg/dL | EXTERNAL | | | Total | performed at [facility], [address] | | LAB | | | | [address], | | | | | | [place] [address] | | | | + + + + + + | ALP, | 182 (H)Comment: Testing | 35 - 115 U/L | EXTERNAL | | | External | performed at [facility], [address] | | LAB | | | | [address], | | | | | | [place] [address] | | | | + + + + + + | AST | 9 (L)Comment: Testing | 10 - 45 U/L | EXTERNAL | | | | performed at [facility], [address] | | LAB | | | | [address], | | | | | | [place] [address] | | | | + + + + + + | ALT | 16Comment: Testing | 10 - 65 U/L | EXTERNAL | | | | performed at [facility], [address] | | LAB | | | | [address], | | | | | | [place] [address] | | | | + + + [...] | | | | | | at [facility], [address] | | | | | | [address], | | | | | | [place] [address] | | | | + + + [...] | | | Fingerstick | performed at [facility];[address] | | LAB | | | | [address];[place], [place] | | | | | | [address] | | | | + + + [...] EXTERNAL LAB | | Testing performed at [facility];[address] [place] [address];[place] [address] MRSA PCR | | | POSITIVE for MRSA by PCRAbnormal | | | Testing performed at [address];[place] [address] | | + + + + +---------+ [...] | | | Fingerstick | performed at [facility];8 | | LAB | | | | [address];[place] | | | | | | [address] | | | | + + + [...] EXTERNAL | | | | performed at [facility];888 | mmol/L | LAB | | | | [address];[place] | | | | | | [address] | | | | + + + + + + | K | 4.0Comment: Testing | 3.5 - 4.9 | EXTERNAL | | | | performed at [facility];[address] | mmol/L | LAB | | | | [address];[place] | | | | | | [address] | | | | + + + + + + | Cl | 104Comment: Testing | 99 - 109 mmol/L | EXTERNAL | | | | performed at [facility];[address] | | LAB | | | | [address];[place] | | | | | | [address] | | | | + + + + + + | CO2 | 21 (L)Comment: Testing | 23 - 32 mmol/L | EXTERNAL | | | | performed at [facility];[address] | | LAB | | | | [address];[place] | | | | | | [address] | | | | + + + + + + | Anion Gap | 13Comment: Testing | 5 - 20 mmol/L | EXTERNAL | | | | performed at [facility];[address] | | LAB | | | | [address];[place] | | | | | | [address] | | | | + + + + + + | Glucose, | 254 (H)Comment: Testing | 65 - 99 mg/dL | EXTERNAL | | | Fasting | performed at [facility];[address] | | LAB | | | | [address];[place] | | | | | | [address] | | | | + + + + + + | BUN | 12Comment: Testing | 8 - 25 mg/dL | EXTERNAL | | | | performed at [facility];[address] | | LAB | | | | [address];[place] | | | | | | [address] | | | | + + + + + + | Creatinine | 0.95Comment: Testing | 0.70 - 1.30 | EXTERNAL | | | | performed at [facility];888 | mg/dL | LAB | | | | [address];[place] | | | | | | [address] | | | | + + + + + + | BUN/Creatin | 13Comment: Testing | | EXTERNAL | | | ine Ratio | performed at [facility];[address] | | LAB | | | | [address];[place] | | | | | | [address] | | | | + + + + + + | Calcium | 6.9 (L)Comment: Testing | 8.5 - 10.5 | EXTERNAL | | | | performed at [facility];888 | mg/dL | LAB | | | | [address];[place] | | | | | | [address] | | | | + + + + + + | Protein, | 6.3Comment: Testing | 6.3 - 8.2 g/dL | EXTERNAL | | | Total | performed at [facility];[address] | | LAB | | | | [address];[place] | | | | | | [address] | | | | + + + + + + | Albumin | 2.1 (L)Comment: Testing | 3.6 - 5.0 g/dL | EXTERNAL | | | | performed at [facility];[address] | | LAB | | | | [address];[place] | | | | | | [address] | | | | + + + + + + | Globulin | 4.2Comment: Testing | 1.3 - 4.9 g/dL | EXTERNAL | | | | performed at [facility];[address] | | LAB | | | | [address];[place] | | | | | | [address] | | | | + + + + + + | A/G Ratio | 0.5 (L)Comment: Testing | 1.0 - 2.4 | EXTERNAL | | | | performed at [facility];[address] | | LAB | | | | [address];[place] | | | | | | [address] | | | | + + + + + + | Bilirubin | 0.4Comment: Testing | 0.1 - 1.5 mg/dL | EXTERNAL | | | Total | performed at [facility];[address] | | LAB | | | | [address];[place] | | | | | | [address] | | | | + + + + + + | ALP, | 181 (H)Comment: Testing | 35 - 115 U/L | EXTERNAL | | | External | performed at [facility];[address] | | LAB | | | | [address];[place] | | | | | | [address] | | | | + + + + + + | AST | 10Comment: Testing | 10 - 45 U/L | EXTERNAL | | | | performed at [facility];[address] | | LAB | | | | [address];[place] | | | | | | [address] | | | | + + + + + + | ALT | 14Comment: Testing | 10 - 65 U/L | EXTERNAL | | | | performed at [facility];[address] | | LAB | | | | [address];[place] | | | | | | [address] | | | | + + + [...] | | | | | | at [facility];[address];[place] [address] | | | | + + + [...] 9:30AM Referring Provider Line: | | | [phone] ID: [id number] | | + + + [...] | | 2016 9:30AM Referring Provider Line: [phone] ID: [id number] | + + POC Glucose (12/14/2016 11:34 PM PDT) + + + + + + | Component | Value | Ref Range | Performed | Pathologist | | | | | At | Signature | + + + + + + | Glucose, | 172 (H)Comment: Testing | 65 - 99 mg/dL | EXTERNAL | | | Fingerstick | performed at [facility];[address] | | LAB | | | | [address];[place], [place] | | | | | | [address] | | | | + + + [...] EXTERNAL | | | | performed at [facility];888 | mmol/L | LAB | | | | [address];[place], [place] | | | | | | [address] | | | | + + + [...] | | | Blood | performed at [facility];[address] | | LAB | | | | [address];[place], [place] | | | | | | [address] | | | | + + + [...] EXTERNAL | | | | performed at [facility] | | LAB | | | | [address];[place] | | | | | | [address] | | | | + + + [...] K/uL | LAB | | | | [facility];[address];[place] [address] | | | | + + + + + + | RED CELL | 4.20Comment: Testing | 4.20 - 5.70 | EXTERNAL | | | COUNT | performed at [facility];[address] | M/uL | LAB | | | | [address];[place] | | | | | | [address] | | | | + + + + + + | Hgb | 12.4 (L)Comment: Testing | 13.2 - 17.0 | EXTERNAL | | | | performed at [facility];888 | g/dL | LAB | | | | [address];[place] | | | | | | [address] | | | | + + + + + + | Hematocrit, | 36.3 (L)Comment: Testing | 39.0 - 50.0 % | EXTERNAL | | | POC | performed at [facility];[address] | | LAB | | | | [address];[place] | | | | | | [address] | | | | + + + + + + | MCV | 86.5Comment: Testing | 80.0 - 100.0 fl | EXTERNAL | | | | performed at [facility];[address] | | LAB | | | | [address];[place] | | | | | | [address] | | | | + + + + + + | MCH | 29.4Comment: Testing | 27.0 - 34.0 pg | EXTERNAL | | | | performed at [facility];[address] | | LAB | | | | [address];[place] | | | | | | [address] | | | | + + + + + + | MCHC | 34.0Comment: Testing | 32.0 - 35.5 | EXTERNAL | | | | performed at [facility];888 | g/dL | LAB | | | | [address];[place] | | | | | | [address] | | | | + + + + + + | RDW-CV | 42.9Comment: Testing | 37 - 53 fl | EXTERNAL | | | | performed at [facility];[address] | | LAB | | | | [address];[place] | | | | | | [address] | | | | + + + + + + | Platelet | 258Comment: Testing | 150 - 400 K/uL | EXTERNAL | | | Count | performed at [facility];[address] | | LAB | | | Plasma | [address];[place] | | | | | | [address] | | | | + + + + + + | MPV | 8.3Comment: Testing | fl | EXTERNAL | | | | performed at [facility];[address] | | LAB | | | | [address];[place] | | | | | | [address] | | | | + + + + + + | Differentia | AUTOMATEDComment: | | EXTERNAL | | | l Type | Testing performed at | | LAB | | | | [facility];[address];[place] [address] | | | | + + + + + + | % Segmented | 87.43Comment: Testing | % | EXTERNAL | | | | performed at [facility];[address] | | LAB | | | Neutrophils | [address];[place] | | | | | | [address] | | | | + + + + + + | % | 5.56Comment: Testing | % | EXTERNAL | | | Lymphocytes | performed at [facility];[address] | | LAB | | | | [address];[place] | | | | | | [address] | | | | + + + + + + | % Monocytes | 4.36Comment: Testing | % | EXTERNAL | | | | performed at [facility];[address] | | LAB | | | | [address];[place] | | | | | | [address] | | | | + + + + + + | % | 1.84Comment: Testing | % | EXTERNAL | | | Eosinophils | performed at [facility];[address] | | LAB | | | | [address];[place] | | | | | | [address] | | | | + + + + + + | % Basophils | 0.81Comment: Testing | % | EXTERNAL | | | | performed at [facility];[address] | | LAB | | | | [address];[place] | | | | | | [address] | | | | + + + + + + | Absolute | 17.02 (H)Comment: | 1.90 - 7.40 | EXTERNAL | | | Segmented | Testing performed at | K/uL | LAB | | | Neutrophils | [facility];[address];[place] [address] | | | | + + + + + + | Absolute | 1.08Comment: Testing | 1.00 - 3.90 | EXTERNAL | | | Lymphocytes | performed at [facility];[address] | K/uL | LAB | | | | [address];[place] | | | | | | [address] | | | | + + + + + + | Absolute | 0.85 (H)Comment: Testing | 0.00 - 0.80 | EXTERNAL | | | Monocytes | performed at [facility];[address] | K/uL | LAB | | | | [address];[place] | | | | | | [address] | | | | + + + + + + | Absolute | 0.36Comment: Testing | 0.00 - 0.50 | EXTERNAL | | | Eosinophils | performed at [facility];[address] | K/uL | LAB | | | | [address];[place] | | | | | | [address] | | | | + + + + + + | Absolute | 0.16 (H)Comment: Testing | 0.00 - 0.10 | EXTERNAL | | | Basophils | performed at [facility];[address] | K/uL | LAB | | | | [address];[place] | | | | | | [address] | | | | + + + + + + | RBC | RBC AND PLT MORPHOLOGY | | EXTERNAL | | | Morphology | APPEAR NORMALComment: | | LAB | | | | Testing performed at | | | | | | [facility];[address];[place] [address] | | | | + + + + + + | Platelet | ADEQUATEComment: Testing | | EXTERNAL | | | Estimate | performed at [facility];[address] | | LAB | | | | [address];[place] | | | | | | [address] | | | | + + + + + + | Differentia | SLIDE SCANNED, AGREES | | EXTERNAL | | | l Comments | WITH AUTOMATED | | LAB | | | | RESULTS.Comment: Testing | | | | | | performed at [facility];[address] | | | | | | [address];[place], [place] | | | | | | [address] | | | | + + + [...] EXTERNAL | | | | performed at [facility] | | LAB | | | | [address];[place], [place] | | | | | | [address] | | | | + + + [...] EXTERNAL | | | | performed at [facility];[address] | mmol/L | LAB | | | | [address];[place] | | | | | | [address] | | | | + + + + + + | K | 5.1 (H)Comment: MODERATE | 3.5 - 4.9 | EXTERNAL | | | | HEMOLYSISTesting | mmol/L | LAB | | | | performed at [facility];[address] | | | | | | [address];[place] | | | | | | [address] | | | | + + + + + + | Cl | 93 (L)Comment: Testing | 99 - 109 mmol/L | EXTERNAL | | | | performed at [facility];[address] | | LAB | | | | [address];[place] | | | | | | [address] | | | | + + + + + + | CO2 | 23Comment: Testing | 23 - 32 mmol/L | EXTERNAL | | | | performed at [facility];[address] | | LAB | | | | [address];[place] | | | | | | [address] | | | | + + + + + + | Anion Gap | 14Comment: Testing | 5 - 20 mmol/L | EXTERNAL | | | | performed at [facility];[address] | | LAB | | | | [address];[place] | | | | | | [address] | | | | + + + + + + | Glucose, | 635 (HH)Comment: CALLED | 65 - 99 mg/dL | EXTERNAL | | | Fasting | DR LING COUCH | | LAB | | | | AT 2216 BY RHREAD BACK | | | | | | RESULTS VERIFIEDTesting | | | | | | performed at [facility];[address] | | | | | | [address];[place] | | | | | | [address] | | | | + + + + + + | BUN | 13Comment: Testing | 8 - 25 mg/dL | EXTERNAL | | | | performed at [facility];[address] | | LAB | | | | [address];[place] | | | | | | [address] | | | | + + + + + + | Creatinine | 1.4 (H)Comment: Testing | 0.70 - 1.30 | EXTERNAL | | | | performed at [facility];888 | mg/dL | LAB | | | | [address];[place] | | | | | | [address] | | | | + + + + + + | BUN/Creatin | 10Comment: Testing | | EXTERNAL | | | ine Ratio | performed at [facility];[address] | | LAB | | | | [address];[place] | | | | | | [address] | | | | + + + + + + | Calcium | 7.9 (L)Comment: Testing | 8.5 - 10.5 | EXTERNAL | | | | performed at [facility];888 | mg/dL | LAB | | | | [address];[place] | | | | | | [address] | | | | + + + + + + | Protein, | 7.7Comment: Testing | 6.3 - 8.2 g/dL | EXTERNAL | | | Total | performed at [facility];[address] | | LAB | | | | [address];[place] | | | | | | [address] | | | | + + + + + + | Albumin | 2.6 (L)Comment: Testing | 3.6 - 5.0 g/dL | EXTERNAL | | | | performed at [facility];[address] | | LAB | | | | [address];[place] | | | | | | [address] | | | | + + + + + + | Globulin | 5.1 (H)Comment: Testing | 1.3 - 4.9 g/dL | EXTERNAL | | | | performed at [facility];[address] | | LAB | | | | [address];[place] | | | | | | [address] | | | | + + + + + + | A/G Ratio | 0.5 (L)Comment: Testing | 1.0 - 2.4 | EXTERNAL | | | | performed at [facility];[address] | | LAB | | | | [address];[place] | | | | | | [address] | | | | + + + + + + | Bilirubin | 0.6Comment: Testing | 0.1 - 1.5 mg/dL | EXTERNAL | | | Total | performed at [facility];[address] | | LAB | | | | [address];[place] | | | | | | [address] | | | | + + + + + + | ALP, | 259 (H)Comment: Testing | 35 - 115 U/L | EXTERNAL | | | External | performed at [facility];[address] | | LAB | | | | [address];[place] | | | | | | [address] | | | | + + + + + + | AST | 17Comment: MODERATE | 10 - 45 U/L | EXTERNAL | | | | HEMOLYSISTesting | | LAB | | | | performed at [facility];[address] | | | | | | [address];[place] | | | | | | [address] | | | | + + + + + + | ALT | 17Comment: Testing | 10 - 65 U/L | EXTERNAL | | | | performed at [facility];[address] | | LAB | | | | [address];[place] | | | | | | [address] | | | | + + + [...] | | | | | | at [facility];[address] [facility] | | | | | | Critical Access Hospital;[place] [address] | | | | + + + [...] 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
--- OUTSIDE RECORDS SUMMARY | ~2019-10-10 | XMS | Encounter Summary ---
Demographics + + + | Address | [address] | | | [place] [address] | + + + | Home Phone [...] Team Providers + +------+ + | Care University Demonstrator Name | Role | Phone | + +------+ + | Estrella Light PA-C | PCP | | + +------+ + Encounter Details +--------+ + + + + | Date | Type | Department | Care Team | Description | +--------+ + + + + | 01/13/ | Hospital | [facility] | Conversion | Diagnosis unknown | | 2018 | Encounter | CONVERSION DEP [address] | Transaction, | | | | | [address] [address] | Provider Unknown | | | | | [place] | | | | | | [address] | (Fax) | | | | | [phone] | | | +--------+ + + + [...] XR CHEST 1 VIEW | Routin | 01/13/2018 | | Results for this | | | e | 9:36 AM | | procedure are in the | | | | PDT | | results section. | + +--------+ + + + documented in this encounter Results XR Chest 1 Vw (01/13/2018 9:36 AM PDT) + + | Specimen | + + | | + + + + + | Narrative | Performed At | + + + | This is a non-reportable procedure without a radiologist report and | | | is used for image storage only | | + + + + + | Procedure Note | + + | Glenn Valle - 05/15/2019 8:55 AM PDT This is a non-reportable procedure | | without a radiologist report and isused for image storage only | + + documented in this encounter Visit Diagnoses + + | Diagnosis | + + | Diagnosis unknown Other unknown and unspecified cause of morbidity or mortality | + + documented in this encounter Additional Health Concerns + + + + | Infection | Noted Time | Resolved Time | + + + + | Methicillin-resistant Staphylococcus aureus | 12/15/2016 12:00 AM | | | | PDT | | + + + + documented as of this encounter"
--- OUTSIDE RECORDS SUMMARY | ~2019-10-10 | XMS | Encounter Summary ---
Demographics + + + | Address | [address] | | | [place] [address] | + + + | Home Phone | | + + + | Preferred Language | Unknown | + + + | Marital Status | Single | + + + | Sabianist Affiliation | 1077 | + + + | Race | Unknown | + + + | Ethnic Group | Unknown | + + + Author + + + | Author | [facility] | | | and [place] | + + + | Organization | [facility] | | | [...] Team Providers + +------+ + | Care Wet Chemistry Analyst Name | Role | Phone | + +------+ + PCP | Unavailable | + +------+ + Encounter Details +--------+ + + + + | Date | Type | Department | Care Team | Description | +--------+ + + + + | 05/21/ | Hospital | [facility] | Unknown, | | | 1992 | Encounter | MED CTR XRAY [address] | [place] | | | | | [place] | [phone] | | | | | [place] [address] | | | | | | [phone] | | | +--------+ + + + [...]
--- OUTSIDE RECORDS SUMMARY | ~2019-10-10 | XMS | Encounter Summary ---
Demographics + + + | Address | [address] | | | [place] [address] | + + + | Home Phone | | + + + | Preferred Language | Unknown | + + + | Marital Status | Single | + + + | Rastafarian Affiliation | 1077 | + + + | Race | Unknown | + + + | Ethnic Group | Unknown | + + + Author + + + | Author | [facility] | | | and [place] | + + + | Organization | [facility] | | [...] Team Providers + +------+ + | Care Uniforms Sales Representative Name | Role | Phone | + +------+ + | Estrella Light PA-C | PCP | | + +------+ + Encounter Details +--------+ + + + + | Date | Type | Department | Care Team | Description | +--------+ + + + + | 09/04/ | Abstract | [facility] | Avi Forde MD | | | 2014 | | GASTROENTEROLOGY | [address], [place] | | | | | [address] [place] | [address] [place] | | | | | [address] [place], [place] | [address] | | | | | [address] | | | | | | [phone] | | | +--------+ + + + [...]
--- OUTSIDE RECORDS SUMMARY | ~2019-10-10 | XMS | Encounter Summary ---
Demographics + + + | Address | [address] | | | [place] [address] | + + + | Home Phone | | + + + | Preferred Language | Unknown | + + + | Marital Status | Single | + + + | Scientologist Affiliation | 1077 | + + + | Race | Unknown | + + + | Ethnic Group | Unknown | + + + Author + + + | Author | [facility] | | | and [place] | + + + | Organization | [facility] | | | [...] Team Providers + +------+ + | Care Fruit Farmer Name | Role | Phone | + +------+ + | Estrella Light PA-C | PCP | | + +------+ + Encounter Details +--------+ + + + + | Date | Type | Department | Care Team | Description | +--------+ + + + + | 09/22/ | Anesthesia | [facility] | Ilya Dodge | | | 2015 | Event | MED CTR MP INTRA OP | MD [address] | | | | | [address] | [facility] | | | | | [place] | [place] [address] | | | | | [address] | [phone] | | | | | [phone] | | | +--------+ + + + [...]
--- OUTSIDE RECORDS SUMMARY | ~2019-10-10 | XMS | Encounter Summary ---
Demographics + + + | Address | [address] | | | [place] [address] | + + + | Home Phone | | + + + | Preferred Language | Unknown | + + + | Marital Status | Single | + + + | Moravian Affiliation | 1077 | + + + | Race | Unknown | + + + | Ethnic Group | Unknown | + + + Author + + + | Author | [facility] | | | and [place] | + + + | Organization | [facility] | | | [...] Team Providers + +------+ + | Care Bottler Helper Name | Role | Phone | + +------+ + | Estrella Light PA-C | PCP | | + +------+ + Encounter Details +--------+ + + + + | Date | Type | Department | Care Team | Description | +--------+ + + + + | 09/04/ | Abstract | [facility] | Avi Forde MD | | | 2014 | | GASTROENTEROLOGY | [address], [place] | | | | | [address] [place] | [address] [place] | | | | | [address] [place], [place] | [address] | | | | | [address] | | | | | | [phone] | | | +--------+ + + + [...]
--- OUTSIDE RECORDS SUMMARY | ~2019-10-10 | XMS | Encounter Summary ---
Demographics + + + | Address | [address] | | | [place] [address] | + + + | Home Phone | | + + + | Preferred Language | Unknown | + + + | Marital Status | Single | + + + | Church Affiliation | 1077 | + + + | Race | Unknown | + + + | Ethnic Group | Unknown | + + + Author + + + | Author | [facility] | | | and [place] | + + + | Organization | [facility] | | [...] Team Providers + +------+ + | Care Reconciliation Manager Name | Role | Phone | + +------+ + | Estrella Light PA-C | PCP | | + +------+ + Encounter Details +--------+ + + + + | Date | Type | Department | Care Team | Description | +--------+ + + + + | 05/12/ | Orders Only | [facility] | Provider, | | | 2019 | | SYSTEM GENERIC OP | [address] | | | | | CONVERSION [address] | [place] | | | | | [address] [place], [place] | [place] [address] | | | | | [address] | | | | | | [phone] | | | +--------+ + + + [...]
--- OUTSIDE RECORDS SUMMARY | ~2019-10-10 | XMS | Encounter Summary ---
Demographics + + + | Address | [address] | | | [place] [address] | + + + | Home Phone | | + + + | Preferred Language | Unknown | + + + | Marital Status | Single | + + + | Christianity Affiliation | 1077 | + + + | Race | Unknown | + + + | Ethnic Group | Unknown | + + + Author + + + | Author | [facility] | | | and [place] | + + + | Organization | [facility] | | [...] Team Providers + +------+ + | Care Chief Sustainability Officer Name | Role | Phone | + +------+ + | Estrella Light PA-C | PCP | | + +------+ + Encounter Details +--------+ + + + + | Date | Type | Department | Care Team | Description | +--------+ + + + + | 01/13/ | Hospital | [facility] | Cameron Lopez | | | 2018 - | Encounter | [facility] | MD [address] | | | | | CLINICAL DECISION | [place], [place] | | | 01/14/ | | UNIT [facility] | [address] | | | 2017 | | [place], [place] | | | | | | [address] | | | | | | [phone] | | | +--------+ + + + [...] 01/14/181931 Date of Service: 01/14/18899 Status: Signed Save All Operator: Abhinav Winters DO (Physician) The patient is 52 y.o. 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, presented to the emergency department of [facility] in [place] today with complaints of upper, sharp chest [...] not smoke. In the emergency department at [facility], EKG showed T inversions in lead III [...] Date of Service: 04/15/18 0900 Status: Signed Save All Operator: Elizabeth Galvez, RN (Registered Nurse) Approached by [...] 01/13/181399 Date of Service: 01/13/181399 Status: Signed Save All Operator: Rosalba Luo RPH (Pharmacist) Clinical Pharmacy Note: [...] | | acute disease Electronically signed by Angle Willis MD on | | | 01/14/2018 8:01 AM | | + + + + + + | Narrative | Performed At | + + + | [facility] XR CHEST 1 VIEW 01/14/2018 7:43 AM [...] Leonard, Rad Conversion - 05/15/2019 8:55 AM PDT K[facility] SMITHXR CHEST 1 | | VIEW01/14/2018 7:43 AM [...] | | | Basophils | performed at [facility], [address] | [address] | LAB | | | | [place], | | | | | | [place] [address] | | | | + + + [...] | | | | [place] [address] | | | | + + + [...] EXTERNAL | | | | performed at [facility], [address] | | LAB | | | | [place], | | | | | | [place] [address] | | | | + + + [...] EXTERNAL | | | | performed at [facility], [address] | | LAB | | | | [place], | | | | | | [place] [address] | | | | + + [...] | | | | | performed at [facility], [address] | | | | | | [facility], | | | | | | [place] [address] | | | | + + + [...] | | | Cholesterol | performed at [facility], [address] | | LAB | | | , | [place], | | | | | Calculated, | [place] [address] | | | | | External | [...] | | | | | | at [facility], [address] | | | | | | [place], | | | | | | [place] [address] | | | | + + + [...] | | Fingerstick | performed at [facility];[address] | | LAB | | | | [address];[place], [place] | | | | | | [address] | | | | + + + [...] + + | [facility]ically [facility] Epic environment | EXTERNAL LAB | + [...] EXTERNAL | | | | performed at [facility];[address] | | LAB | | | | [address];[place], [place] | | | | | | [address] | | | | + + + [...] | | Fingerstick | performed at [facility];[address] | | LAB | | | | [address];[place], [place] | | | | | | [address] | | | | + + + [...] | | | | | | ACUTE RI Testing | | | | | | performed at [facility];[address] | | | | | | [address] [facility];[place], [place] | | | | | | [address] | | | | + + + [...] EXTERNAL | | | | performed at [facility];[address] | | LAB | | | | [address];[place] | | | | | | [address] | | | | + + + [...] | | Fingerstick | performed at [facility];[address] | | LAB | | | | [address];[place] | | | | | | [address] | | | | + + + [...] | | Fingerstick | performed at [facility];[address] | | LAB | | | | [address];[place] | | | | | | [address] | | | | + + + [...] | | | | | | ACUTE RI Testing | | | | | | performed at [facility] | | | | | | [address] [facility];[place], [place] | | | | | | [address] | | | | + + + [...] EXTERNAL | | | | performed at [facility];[address] | | LAB | | | | [address];[place], [place] | | | | | | [address] | | | | + + + [...] TV A Star: 0.46 m/s TV Dec [place]: 2.14 m/s2 TV Dec Time: | | | 223.61 ms TV E Star: 0.47 m/s TV E/A Ratio: 1.03 | | | Physician Obstetrician: DIDI Authenticated by: Dereck Galicia Report | | | Date/Time: 01-13-2018 17:21:41 | | + + + + + | Procedure Note | + + | Glenn Valle Conversion - 05/15/2019 8:55 AM PDT Patient Name: Andrzej MC | | : 1965 Performing Physician: Dereck [...] (A-L): | | 16.36 ml/m2LAAs A2C: 13.19 pd5ETSWH A-L A2C: 34.91 mlLALs A2C: 4.23 cmLAAs A4C: | | 11.37 hs4ZAPKJ A-L A4C: 29.21 mlLALs A4C: 3.75 cmRAAd: 13.57 ds5IYQHN A-L: | | 35.22 mlRAEDV MOD: 30.46 mlRALd: 4.44 cmTAPSE: 1.67 cmHR: 82.18 BPMAV maxPG: | | 3.19 mmHgAV meanP.99 mmHgAV Vmax: 0.89 m/Simran Vmean: 0.69 m/Simran VTI: 18.16 | | cmAVA Vmax: 3.34 cm2AVA (VTI): 3.51 cw6GDOO Vmax: 0.00 cm2/m2AVAI (VTI): 0.00 | | cm2/m2LVCI Dopp: 2.41 l/yanz1ASUR Dopp: 5.00 l/minHR: 78.46 BPMLVOT maxP.34 | [...] 3 mmHgTV A Star: 0.46 m/sTV Dec [place]: 2.14 m/s2TV Dec Time: 223.61 | | msTV E Star: 0.47 m/sTV E/A Ratio: 1.03 Physician Obstetrician: Nishaticated by: Dereck | | KorimerlaReport Date/Time: 01-13-2018 17:21:41 IMPRESSION: 1. Overall left [...] A Star: 0.46 m/s | |TV Dec [place]: 2.14 m/s2 | |TV Dec Time: 223.61 ms | |TV E Satr: 0.47 m/s | |TV E/A Ratio: 1.03 | | | |Physician Obstetrician: GD | |Authenticated by: Dereck Galicia | [...] | | Fingerstick | performed at [facility];[address] | | LAB | | | | [address];[place], [place] | | | | | | [address] | | | | + + + [...] | | | | | | ACUTE RI Testing | | | | | | performed at [facility];[address] | | | | | | [facility];[place], [place] | | | | | | [address] | | | | + + + [...] + + | Historically converted procedure from [facility] Epic environment | EXTERNAL LAB | + [...] | | | PCRAbnormal Testing performed at [facility];[address] [place] [address];[place] [address] | | + + + + +---------+ [...]
--- OUTSIDE RECORDS SUMMARY | ~2019-10-10 | XMS | Encounter Summary ---
Demographics + + + | Address | [address] | | | [place] [address] | + + + | Home Phone | | + + + | Preferred Language | Unknown | + + + | Marital Status | Single | + + + | Pentecostal Affiliation | 1077 | + + + [...] Team Providers + +------+ + | Care Profiler Name | Role | Phone | + +------+ + | Estrella Light PA-C | PCP | | + +------+ + Encounter Details +--------+---------+ + + + | Date | Type | Department | Care Team | Description | +--------+---------+ + + + | 04/12/ | Surgery | [facility] | Avi Forde MD | EGD / COLONOSCOPY - | | 2015 | | MED CTR MP INTRA OP | [address], [place] | DM (insulin) | | | | [address] | [address] [place] | | | | | [place] | [phone] | | | | | [address] | | | | | | [phone] | | | +--------+---------+ + + + [...]
--- OUTSIDE RECORDS SUMMARY | ~2019-10-10 | XMS | Encounter Summary ---
Demographics + + + | Address | [address] | | | [place] [address] | + + + | Home Phone | | + + + | Preferred Language | Unknown | + + + | Marital Status | Single | + + + | Catholic Affiliation | 1077 | + + [...] Team Providers + +------+ + | Care Ranch Hand Livestock Name | Role | Phone | + [...] + + | 04/12/ | Telephone | [facility] | Avi Forde MD | Hosp No Show | | 2015 | | GASTROENTEROLOGY | [address], [place] | (egds,colon) | | | | [address] [place] | [address] | | | | | [address] [place], [place] | [address] | | | | | [address] | | | | | | [phone] | | | +--------+ + + + [...]
--- OUTSIDE RECORDS SUMMARY | ~2019-10-10 | XMS | Encounter Summary ---
Demographics + + + | Address | [address] | | | [place] [address] | + + + | Home Phone | | + + + | Preferred Language | Unknown | + + + | Marital Status | Single | + + + | Zoroastrian Affiliation | 1077 | + + + | Race | Unknown | + + + | Ethnic Group | Unknown | + + + Author + + + | Author | [facility] | | | and [place] | + + + | Organization | [facility] | | | [...] Team Providers + +------+ + | Care Trademark Affixer Name | Role | Phone | + +------+ + | sEtrella Light PA-C | PCP | | + +------+ + Encounter Details +--------+ + + + + | Date | Type | Department | Care Team | Description | +--------+ + + + + | 03/29/ | Abstract | [facility] [place] | Avi Forde MD | | | 2016 | | GASTROENTEROLOGY | [address], [place] | | | | | [address] [place] | [address] [place] | | | | | [address] [place], [place] | [address] | | | | | [address] | | | | | | [phone] | | | +--------+ + + + [...]
--- OUTSIDE RECORDS SUMMARY | ~2019-10-10 | XMS | Encounter Summary ---
Demographics + + + | Address | [address] | | | [place] [address] | + + + | Home Phone | | + + + | Preferred Language | Unknown | + + + | Marital Status | Single | + + + | Caodaism Affiliation | 1077 | + + + [...] Team Providers + +------+ + | Care Mechanical Maintenance Engineer Name | Role | Phone | + +------+ + | Estrella Light PA-C | PCP | | + +------+ + Encounter Details +--------+ + + + + | Date | Type | Department | Care Team | Description | +--------+ + + + + | 05/12/ | Orders Only | [facility] | Provider, | | | 2019 | | SYSTEM GENERIC OP | [address] | | | | | [address] | [place] | | | | | [address] [place], [place] | [place] [address] | | | | | [address] | | | | | | [phone] | | | +--------+ + + + [...]
--- OUTSIDE RECORDS SUMMARY | ~2019-10-10 | XMS | Encounter Summary ---
Demographics + + + | Address | [address] | | | [place] [address] | + + + | Home Phone | | + + + | Preferred Language | Unknown | + + + | Marital Status | Single | + + + | Bahai Affiliation | 1077 | + + + [...] Team Providers + +------+ + | Care Floor Plan Adjuster Name | Role | Phone | + [...] + + | 04/12/ | Telephone | [facility] | Avi Forde MD | [facility] No Show | | 2015 | | GASTROENTEROLOGY | [address], [place] | | | | | [address] [place] | [address] [place] | | | | | [address] [place], [place] | [address] | | | | | [address] | | | | | | [phone] | | | +--------+ + + + [...]
--- OUTSIDE RECORDS SUMMARY | ~2019-10-10 | XMS | Encounter Summary ---
Demographics + + + | Address | [address] | | | [place] [address] | + + + | Home Phone | | + + + | Preferred Language | Unknown | + + + | Marital Status | Single | + + + | Taoism Affiliation | 1077 | + + + | Race | Unknown | + + + | Ethnic Group | Unknown | + + + Author + + + | Author | [facility] | | | and [place] | + + + | Organization | [facility] | | | [...] Team Providers + +------+ + | Care Radiation Safety Officer Name | Role | Phone | [...] + + | 09/22/ | Telephone | [facility] | Avi Forde MD | Other | | 2014 | | GASTROENTEROLOGY | [address] [place] | | | | | [address] [facility] | [address] [place] | | | | | [address] [place], [place] | [address] | | | | | [address] | | | | | | [phone] | | | +--------+ + + + [...]
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
--- OUTSIDE RECORDS SUMMARY | ~2019-10-10 | XMS | Encounter Summary ---
Demographics + + + | Address | [address] | | | [place] [address] | + + + | Home Phone | | + + + | Preferred Language | Unknown | + + + | Marital Status | Single | + + + | Restorationist Affiliation | 1077 | + + + [...] Team Providers + +------+ + | Care Radio Tester Name | Role | Phone | + [...] | | type | [address] | [place], | | | | | | [place], | [place] [address] | | | | | | [place] [address] | Phone: | | | | | | Phone: | [phone] | | | | | | [phone] | Fax: | | | | | | Fax: | [phone] | | | | | | [phone] | | +--------+ + + + + + Reason for Visit + + + | Reason | Comments | + + + | Hematuria | | + + + Encounter Details +--------+ + + + + | Date | Type | Department | Care Team | Description | +--------+ + + + + | 10/16/ | Emergency | [facility] | Keenan Estrada MD | Hematuria, | | 2019 | | MED CTR EMERGENCY | [address] | unspecified type | | | | CENTER [address] | [place] | (Primary Dx) | | | | [place] | [phone] | | | | | [address] | | | | | | [phone] | | | +--------+ + + + [...] + + +--------+ + + | Urology [facility] - | Outpatient | Routin | [...] + | [facility] | [address] | [place] | [phone] | | [facility] | | [address] | | | - LABORATORY | | [...] - 1.030 | [facility] | | | [place] | | | [facility] | | [...] [address] | [place] | [phone] | | [facility] | | [address] | | | - LABORATORY | | [...]
--- OUTSIDE RECORDS SUMMARY | ~2019-10-10 | XMS | Encounter Summary ---
Demographics + + + | Address | [address] | | | [place] [address] | + + + | Home Phone [...] Team Providers + +------+ + | Care Sewer Tapper Name | Role | Phone | + +------+ + | Estrella Light PA-C | PCP | | + +------+ + Encounter Details +--------+---------+ + + + | Date | Type | Department | Care Team | Description | +--------+---------+ + + + | 04/12/ | Surgery | [facility] | Avi Forde MD | EGD / COLONOSCOPY - | | 2015 | | MED CTR MP INTRA OP | [address], [place] | DM (insulin) | | | | [address] | [address] [place] | | | | | [place] | [phone] | | | | | [address] | | | | | | [phone] | | | +--------+---------+ + + + [...]
--- OUTSIDE RECORDS SUMMARY | ~2019-10-10 | XMS | Clinical Summary ---
Demographics + + + | Address | [address] [place] [address] RD | | | [place] [address] | + + + | Home Phone | | + + + | Preferred Language | Unknown | + + + | Marital Status | Single | + + + | Anabaptism Affiliation | 1077 | + + + | Race | Unknown | + + + | Ethnic Group | Unknown | + + + Author + + + | Author | [facility] [employer] (Historical as of | | | 05-18-19) | + + + | Organization | [facility] [employer] (Historical as of | | | 05-18-19) [...] Providers + +------+ + | Care Software Configuration Engineer Name | Role | Phone | [...] foot, limited to breakdown of skin ([facility]) | 01/13/2018 | + + + | Cellulitis and abscess of foot | 12/15/2016 | + + + | Osteomyelitis ([facility]) | 12/15/2016 | + + + | Essential hypertension | 03/04/2015 | + + + | Type 2 diabetes mellitus, with long-term current use of insulin | 03/04/2015 | | ([facility]) | | + + + [...] +------+-------+ + | MEDICAID | [place] | [id number] | | | [address] | | | N | | | | [place], [place] | | | [place] | | | | [address] | | | JEWELRY SETTER | | | | | + +--------+ +------+-------+ + | [facility] | YELLOW | [id number] | | | | | PLANS | [...] | Self | [birth year] | Home: | [address] | | | al/Fam | | 1965 | [phone]- | [place], [place] | | | vikas | | | [address] | [address] | + +--------+ +--------+ + + | [employer] | Third | Self | [birth year] | Home: | [address] | | | Libertarian | | 1964 | [phone]- | [place], [place] | | | Liabil | | | [address]18 | [address] | | | ity | | | | | + +--------+ +--------+ + +
--- OUTSIDE RECORDS SUMMARY | ~2019-10-10 | XMS | Encounter Summary ---
Demographics + + + | Address | [address] | | | [place] [address] | + + + | Home Phone | | + + + | Preferred Language | Unknown | + + + | Marital Status | Single | + + + | Mu-Ism Affiliation | 1077 | + + + | Race | Unknown | + + + | Ethnic Group | Unknown | + + + Author + + + | Author | [facility] | | | and [place] | + + + | Organization | [facility] | | | [...] Team Providers + +------+ + | Care Photographic Process Worker Name | Role | Phone | [...] antibody | [address] [place] [address], | | | | | positive | [place], [place] | [place] [address] | | | | | Chronic | [address] [place] | [place], | | | | | diarrhea | [place], [place] | [place] [address] | | | | | Procedures | [address] | Phone: | | | | | [place] | Phone: | [phone] | | | | | COLONOSCOPY | [phone] | Fax: | | | | | FLX DX | Fax: | [phone] | | | | | W/COLLJ SPEC | [phone] | | | | | | WHEN PFRMD | | | | | | | OK | | | | | | | COLONOSCOPY | | | | | | | W/BIOPSY | | | | | | | SINGLE/MULTI | | | | | | | PLE OK | | | | | | | COLSC FLX | | | | | | | W/RMVL OF | | | | | | | TUMOR POLYP | | | | | | | LESION SNARE | | | | | | | TQ OK | | | | | | | ESOPHAGOGAST | | | | | | | RODUODENOSCO | | | | | | | PY TRANSORAL | | | | | | | DIAGNOSTIC | | | | | | | OK EDG | | | | | | [...] 2015 | | GASTROENTEROLOGY | [address], [place] | (egd/colon ) | | | | [address] [place] | [address] [place], [place] | | | | | [address] [place], [place] | [address] | | | | | [address] | | | | | | [phone] | | | +--------+ + + + [...]
--- OUTSIDE RECORDS SUMMARY | ~2019-10-10 | XMS | Encounter Summary ---
Demographics + + + | Address | [address] | | | [place] [address] | + + + | Home Phone [...] Team Providers + +------+ + | Care Commercial Marketing Specialist Name | Role | Phone | + +------+ + PCP | Unavailable | + +------+ + Encounter Details +--------+ + + + + | Date | Type | Department | Care Team | Description | +--------+ + + + + | 05/21/ | Hospital | [facility] | Unknown, | | | 1992 | Encounter | MED CTR XRAY [address] | [place] | | | | | [place] | [phone] | | | | | [place] [address] | | | | | | [phone] | | | +--------+ + + + [...]
--- OUTSIDE RECORDS SUMMARY | ~2019-10-10 | XMS | Clinical Summary ---
Demographics + + + | Address | [address] [place] [address] RD | | | [place] [address] | + + + | Home Phone [...] Team Providers + +------+ + | Care Wine Sales Representative Name | Role | Phone [...] + + + | Overview: Problem list water commissioner utility | + + + +---+ | [...] | [employer] | MODA | [id number] | | [phone] | | Medica | | MEDICAID HMO | HEALTH | | 018-Pr | 1 | | id | | | MDCD | | esent | | | | | | HMO [place] | | | | | | + +--------+ +--------+ +---------+--------+ | [facility] | IHS | [id number] | | | | Indemn | | [...] Person | Self | [birth year] | | [address] | | | al/Fam | | 1965 | [phone] | [place] | | | vikas | | | 8 (Home) | [address] | + +--------+ +--------+ + + Advance Directives + + + + + | Type | Date Recorded | Patient | Explanation | | | | Fence Laborer | | + + + + + | Power of | | | | | High School History Teacher | | | | + + + + + | Advance | | | | | Directive | | | | + + + + +
--- OUTSIDE RECORDS SUMMARY | ~2019-10-10 | XMS | Encounter Summary ---
Demographics + + + | Address | [address] | | | [place] [address] | + + + | Home Phone [...] Team Providers + +------+ + | Care Vegetable Canner Name | Role | Phone | + [...] [facility] | Avi Forde MD | [facility] No [facility] | | 2015 | | GASTROENTEROLOGY | [address] [place], [place] | | | | | [address] [place] | [address] [place] | | | | | 210 [place], [place] | [address] | | | | | [address] | | | | | | [phone] | | | +--------+ + + + [...]
--- OUTSIDE RECORDS SUMMARY | ~2019-10-10 | XMS | Encounter Summary ---
Demographics + + + | Address | [address] | | | [place] [address] | + + + | Home Phone [...] Author + + + | Author | [facility] | | | and [place] | + + + | Organization | [facility] | | | and [...] Team Providers + +------+ + | Care Eeo Officer Name | Role | Phone | + +------+ + PCP | Unavailable | + +------+ + Encounter Details +--------+ + + + + | Date | Type | Department | Care Team | Description | +--------+ + + + + | 07/19/ | Hospital | [facility] | | | | 1992 | Encounter | MED CTR MP INTRA OP | | | | | | [address] | | | | | | [place] | | | | | | [address] | | | | | | [phone] | | | +--------+ + + + [...]
--- OUTSIDE RECORDS SUMMARY | ~2019-10-10 | XMS | Encounter Summary ---
Demographics + + + | Address | [address] | | | [place] [address] | + + + | Home Phone [...] Team Providers + +------+ + | Care Mesh Cutter Name | Role | Phone | [...] | diarrhea | | | | [address] [place], [place] | [address] | | | | | [address] | | | | | | [phone] | | | +--------+ + + + [...]
--- OUTSIDE RECORDS SUMMARY | ~2019-10-10 | XMS | Encounter Summary ---
Demographics + + + | Address | [address] | | | [place] [address] | + + + | Home Phone [...] Team Providers + +------+ + | Care Blunger Loader Name | Role | Phone | + [...] antibody | [address] | [address] [place], | | | | | positive | [place], [place] | [place] [address] | | | | | Chronic | [address] [place] | [place], | | | | | diarrhea | [place], [place] | [place] [address] | | | | | Procedures | [address] | Phone: | | | | | [place] | Phone: | [phone] | | | | | COLONOSCOPY | [phone] | Fax: | | | | | FLX DX | Fax: | [phone] | | | | | W/COLLJ SPEC | [phone] | | | | | | WHEN [...] 2015 | | GASTROENTEROLOGY | [address] [place], [place] | (egd/colon ) | | | | [address] [place] | [address] [place], [place] | | | | | [address] [place], [place] | [address] | | | | | [address] | | | | | | [phone] | | | +--------+ + + + [...]
--- OUTSIDE RECORDS SUMMARY | ~2019-10-10 | XMS | Encounter Summary ---
Demographics + + + | Address | [address] | | | [place] [address] | + + + | Home Phone [...] Team Providers + +------+ + | Care Automation Tester Name | Role | Phone | + +------+ + | Estrella Light PA-C | PCP | | + +------+ + Encounter Details +--------+ + + + + | Date | Type | Department | Care Team | Description | +--------+ + + + + | 01/13/ | Hospital | [facility] | Cameron Lopez | | | 2018 - | Encounter | [facility] | MD [place] [place] | | | | | CLINICAL DECISION | [place], [place] | | | 01/14/ | | UNIT [facility] | [address] | | | 2017 | | [place], [place] | | | | | | [address] | | | | | | [phone] | | | +--------+ + + + [...] 01/14/181931 Date of Service: 01/14/18899 Status: Signed Venetian Blind Assembler: Abhinav Winters DO (Physician) The patient is 52 y.o. 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, presented to the emergency department of [facility] in [place] today with complaints of upper, sharp chest [...] not smoke. In the emergency department at [facility], EKG showed T inversions in [...] Date of Service: 04/15/18 0900 Status: Signed Venetian Blind Assembler: Elizabeth Galvez, RN (Registered Nurse) Approached by [...] 01/13/181399 Date of Service: 01/13/181399 Status: Signed Venetian Blind Assembler: Rosalba Luo RPH (Pharmacist) Clinical Pharmacy Note: [...] | | | Basophils | performed at [facility], [address] | K/uL | LAB | | | | [place], | | | | | | [place] [address] | | | | + + [...] | | | | [place] [address] | | | | + + + [...] EXTERNAL | | | | performed at [facility], [address] | | LAB | | | | [place], | | | | | | [place] [address] | | | | + + + [...] EXTERNAL | | | | performed at [facility], [address] | | LAB | | | | [place], | | | | | | [place] [address] | | | | + + + [...] | EXTERNAL | | | A1c | Romanian Diabetes | | LAB | | | [...] | | | | | performed at [facility], [address] | | | | | | [facility], | | | | | | [place] [address] | | | | + + + [...] | | | Cholesterol | performed at [facility], [address] | | LAB | | | , | [place], | | | | | Calculated, | [place] [address] | | | | | External | [...] | | | | | | at [facility], [address] | | | | | | [place], | | | | | | [place] [address] | | | | + + + [...] | LAB | | | | [address];[place], [place] | | | | | | [address] | | | | + + + [...] + + | Historically converted procedure from [facility] Epic environment | EXTERNAL LAB | [...] | LAB | | | | [address];[place], [place] | | | | | | [address] | | | | + + + [...] | LAB | | | | [address];[place], [place] | | | | | | [address] | | | | + + + [...] | | | | | | ACUTE [place] Testing | | | | | | performed at [facility];[address] | | | | | | [address] [facility];[place], [place] | | | | | | [address] | | | | + + + [...] | LAB | | | | [address];[place] | | | | | | [address] | | | | + + + [...] [place] | | | | | | [address] | | | | + + + [...] [place] | | | | | | [address] | | | | + + + [...] | | | | | | ACUTE [place] Testing | | | | | | performed at [facility] | | | | | | [address] [facility];[place], [place] | | | | | | [address] | | | | + + + [...] | LAB | | | | [address];[place], [place] | | | | | | [address] | | | | + + + [...] TV A Star: 0.46 m/s TV Dec [place]: 2.14 m/s2 TV Dec Time: | | | 223.61 ms TV E Star: 0.47 m/s TV E/A Ratio: 1.03 | | | Night Custodian: DIDI Authenticated by: Dereck Galicia Report | [...] (A-L): | | 16.36 ml/m2LAAs A2C: 13.19 [id number] A-L A2C: 34.91 mlLALs A2C: 4.23 cmLAAs A4C: | | 11.37 [id number] A-L A4C: 29.21 mlLALs A4C: 3.75 cmRAAd: 13.57 hr3MTQNT A-L: | | 35.22 mlRAEDV MOD: 30.46 mlRALd: 4.44 cmTAPSE: 1.67 cmHR: 82.18 BPMAV maxPG: | | 3.19 mmHgAV meanP.99 mmHgAV Vmax: 0.89 m/Simran Vmean: 0.69 m/Simran VTI: 18.16 | | cmAVA Vmax: 3.34 cm2AVA (VTI): 3.51 yx6VPRM Vmax: 0.00 cm2/m2AVAI (VTI): 0.00 | | cm2/m2LVCI Dopp: 2.41 l/ejfu6ZCMX Dopp: 5.00 l/minHR: 78.46 BPMLVOT maxP.34 | [...] 3 mmHgTV A Star: 0.46 m/sTV Dec [place]: 2.14 m/s2TV Dec Time: 223.61 | | msTV E Star: 0.47 m/sTV E/A Ratio: 1.03 Night Custodian: Nishaticated by: Dereck | | KorimerlaReport Date/Time: [...] A Star: 0.46 m/s | |TV Dec [place]: 2.14 m/s2 | |TV Dec Time: 223.61 ms | |TV E Star: 0.47 m/s | |TV E/A Ratio: 1.03 | | | |Night Custodian: GD | |Authenticated by: Dereck Galicia | [...] | LAB | | | | [address];[place], [place] | | | | | | [address] [...] | | | | | | ACUTE [place] Testing | | | | | | performed at [facility];[address] | | | | | | [facility];[place], [place] | | | | | | [address] | | | | + + + [...] + + | Historically converted procedure from [facility] Epic environment | EXTERNAL LAB | [...] performed at [facility];[address] [place] [address];[place] [address] | | + + + + +---------+ [...]
--- OUTSIDE RECORDS SUMMARY | ~2019-10-10 | XMS | Clinical Summary ---
Demographics + + + | Address | [address] [place] [address] RD | | | [place] [address] | + + + | Home Phone | | + + + | Preferred Language | Unknown | + + + | Marital Status | Single | + + + | Yazidi Affiliation | 1077 | + + + | Race | Unknown | + + + | Ethnic Group | Unknown | + + + Author + + + | Author | [employer] (Historical as of | | | 05-18-19) | + + + | Organization | [facility] [employer] (Historical as of | | | 05-18-19) [...] Team Providers + +------+ + | Care Intermediate School Teacher Name | Role | Phone | [...] right foot, limited to breakdown of skin ([facility]) | 01/13/2018 | + + + | Cellulitis and abscess of foot | 12/15/2016 | + + + | Osteomyelitis ([facility]) | 12/15/2016 | + + + | Essential hypertension | 03/04/2015 | + + + | Type 2 diabetes mellitus, with long-term current use of insulin | 03/04/2015 | | ([facility]) | | + + + Family History [...] +------+-------+ + | MEDICAID | [place] | [id number] | | | [address] | | | N | | | | [place], [place] | | | [place] | | | | [address] | | | CHILDREN'S LUNCHROOM SUPERVISOR | | | | | + +--------+ +------+-------+ + | [facility] | YELLOW | [id number] | | | | | PLANS | [...] | Self | [birth year] | Home: | [address] | | | al/Fam | | 1965 | [address]- | [place], [place] | | | vikas | | | [address] | [address] | + +--------+ +--------+ + + | [employer]ULD[employer] | Third | Self | [birth year] | Home: | [address] | | | Constitution Party | | 1964 | [address]- | [place], [place] | | | Liabil | | | [address] | [address] | | | ity | | | | | + +--------+ +--------+ + +
--- OUTSIDE RECORDS SUMMARY | ~2019-10-10 | XMS | Encounter Summary ---
Demographics + + + | Address | [address] | | | [place] [address] | + + + | Home Phone [...] Phone | + + +---------+ + | Saarh Hanson | ECON | Unknown | | + + +---------+ + | Yasmany Smith | ECON | Unknown | | + + +---------+ + | Katherine Duran | ECON | Unknown | | + + +---------+ + | Sarah Hanson | ECON | Unknown | | + + +---------+ + Care Team Providers + +------+ + | Care Licensed Embalmer Supervisor Name | Role | Phone | + +------+ + PCP | Unavailable | + +------+ + Encounter Details +--------+ + + + + | Date | Type | Department | Care Team | Description | +--------+ + + + + | 07/19/ | Hospital | [facility] | | | | 1992 | Encounter | MED CTR MP INTRA OP | | | | | | [address] | | | | | | [place] | | | | | | [address] | | | | | | [phone] | | | +--------+ + + + [...]
--- OUTSIDE RECORDS SUMMARY | ~2019-10-10 | XMS | Encounter Summary ---
Demographics + + + | Address | [address] | | | [place] [address] | + + + | Home Phone [...] + + + | Author | [facility] | | | and [place] | + + + | Organization | [facility] | | [...] Team Providers + +------+ + | Care Thoroughbred Horse Farm Manager Name | Role | Phone | [...] diarrhea | [address], | | | | | IgG Gliadin | [place], [place] | [place] [address] | | | | | antibody | [address] [place] | [place], | | | | | positive | [place] | [place] [address] | | | | | Alcohol | [address] | Phone: | | | | | abuse | Phone: | [phone] | | | | | Procedures | [phone] | Fax: | | | | | [place] | Fax: | [phone] | | | | | COLONOSCOPY | [phone] | | | | | | FLX DX | | | | | | | W/COLLJ SPEC | | | | | | | WHEN PFRMD | | | | | | | [place] | | | | | | | COLONOSCOPY | | | | | | | W/BIOPSY | | | | | | | SINGLE/MULTI | | | | | | | PLE [place] | | | | | | | COLSC FLX | | | | | | | W/RMVL OF | | | | | | | TUMOR POLYP | | | | | | | LESION SNARE | | | | | | | TQ [place] | | | | | | | [...] Telephone | [facility] | Avi Frode MD | Appointment | | 2014 | | GASTROENTEROLOGY | [address], [place] | (procedure ) | | | | [address] [place] | [address] [place], [place] | | | | | [address] [place], [place] | [address] | | | | | [address] | | | | | | [phone] | | | +--------+ + + + [...]
--- OUTSIDE RECORDS SUMMARY | ~2019-10-10 | XMS | Encounter Summary ---
Demographics + + + | Address | [address] | | | [place] [address] | + + + | Home Phone [...] Team Providers + +------+ + | Care Step Finisher Name | Role | Phone | + [...] 2016 | | GASTROENTEROLOGY | [address] [place], [place] | | | | | [address] [place] | [address] [place] | | | | | [address] [place], [place] | [address] | | | | | [address] | | | | | | [phone] | | | +--------+ + + + [...]
--- OUTSIDE RECORDS SUMMARY | ~2019-10-10 | XMS | Clinical Summary ---
Demographics + + + | Address | [address] [place] [address] RD | | | [place] [address] | + + + | Home Phone [...] Team Providers + +------+ + | Care Six Color Press Operator Name | Role | Phone | [...] + + + | Overview: Problem list mining engineer utility | + + + +---+ | [...] | [employer] | MODA | [id number] | | [phone] | | Medica | | MEDICAID HMO | HEALTH | | 018-Pr | 1 | | id | | | MDCD | | esent | | | | | | HMO [place] | | | | | | + +--------+ +--------+ +---------+--------+ | [facility] | IHS | [id number] | | | | Indemn | | [...] Person | Self | [birth year] | | [address] | | | al/Fam | | 1965 | [phone] | [place] | | | vikas | | | 8 (Home) | [address] | + +--------+ +--------+ + + Advance Directives + + + + + | Type | Date Recorded | Patient | Explanation | | | | Supply Chain Program Manager | | + + + + + | Power of | | | | | Water Attendant | | | | + + + + + | Advance | | | | | Directive | | | | + + + + +
--- OUTSIDE RECORDS SUMMARY | ~2019-10-10 | XMS | Encounter Summary ---
Demographics + + + | Address | [address] | | | [place] [address] | + + + | Home Phone [...] Team Providers + +------+ + | Care Buckle Stringer Name | Role | Phone | + [...] | Telephone | [facility] | Avi Forde MD | Hosp No Show | | 2015 | | GASTROENTEROLOGY | [address] [place], [place] | (egds,colon) | | | | [address] [place] | [address] [place] | | | | | [address] [place], [place] | [address] | | | | | [address] | | | | | | [phone] | | | +--------+ + + + [...]
--- OUTSIDE RECORDS SUMMARY | ~2019-10-10 | XMS | Encounter Summary ---
Demographics + + + | Address | [address] | | | [place] [address] | + + + | Home Phone [...] Team Providers + +------+ + | Care Soaping Machine Back Tender Name | Role | Phone | [...] | diarrhea | | | | [address] [place], [place] | [address] | | | | | [address] | | | | | | [phone] | | | +--------+ + + + [...]
--- OUTSIDE RECORDS SUMMARY | ~2019-10-10 | XMS | Encounter Summary ---
Demographics + + + | Address | [address] | | | [place] [address] | + + + | Home Phone [...] Providers + +------+ + | Care Medical Dosimetrist Name | Role | Phone | + [...] + + | 09/22/ | Telephone | [facility] | Avi Forde MD | Other | | 2014 | | GASTROENTEROLOGY | [address] [place] | | | | | [address] | [address] [place] | | | | | [address] [place], [place] | [address] | | | | | [address] | | | | | | [phone] | | | +--------+ + + + [...]
--- OUTSIDE RECORDS SUMMARY | ~2019-10-10 | XMS | Encounter Summary ---
Demographics + + + | Address | [address] | | | [place] [address] | + + + | Home Phone | | + + + | Preferred Language | Unknown | + + + | Marital Status | Single | + + + | Buddhism Affiliation | 1077 | + + + [...] Team Providers + +------+ + | Care Audiovisual Tech Name | Role | Phone | + +------+ + | Estrella Light PA-C | PCP | | + +------+ + Encounter Details +--------+ + + + + | Date | Type | Department | Care Team | Description | +--------+ + + + + | 01/13/ | Hospital | [facility] | Conversion | Diagnosis unknown | | 2018 | Encounter | CONVERSION DEP [address] | Transaction, | | | | | [address] | Provider Unknown | | | | | [place] | | | | | | [address] | (Fax) | | | | | [phone] | | | +--------+ + + + [...]
--- OUTSIDE RECORDS SUMMARY | ~2019-10-10 | XMS | Encounter Summary ---
Demographics + + + | Address | [address] | | | [place] [address] | + + + | Home Phone [...] Team Providers + +------+ + | Care Corrections Caseworker Name | Role | Phone | + +------+ + | Estrella Light PA-C | PCP | | + +------+ + Encounter Details +--------+ + + + + | Date | Type | Department | Care Team | Description | +--------+ + + + + | 09/22/ | Anesthesia | [facility] | Ilya Dodge | | | 2015 | Event | MED CTR MP INTRA OP | MD Ebonie [address] | | | | | [address] | [facility] | | | | | [place] | [place] [address] | | | | | [address] | [phone] | | | | | [phone] | | | +--------+ + + + [...]
--- OUTSIDE RECORDS SUMMARY | ~2019-10-10 | XMS | Encounter Summary ---
Demographics + + + | Address | [address] | | | [place] [address] | + + + | Home Phone [...] Team Providers + +------+ + | Care Food And Beverage Server Name | Role | Phone | + +------+ + | Estrella Light PA-C | PCP | | + +------+ + Encounter Details +--------+ + + + + | Date | Type | Department | Care Team | Description | +--------+ + + + + | 12/14/ | Hospital | [facility] | [place], | Osteomyelitis of | | 2017 - | Encounter | [facility] | MD Pavel [address] | foot, left, acute | | | | CARE FLOOR [address] | [address] | ([facility]); Uncontrolled | | 12/20/ | | [address] | [place] [address] | type 2 diabetes | | 2017 | | [place], [place] | [phone] | mellitus with | | | | [phone] | | hyperglycemia, | | | | [phone] | | unspecified long | | | | | | term insulin use | | | | | | status ([facility]); Renal | | | | | [...] 1933 Date of Service: 12/20/161538 Status: Addendum Warehouse Shift Supervisor: Bunny Chaney MD (Physician) Related Notes: Original Note by Bunny Chaney MD (Physician) filed at 12/26/16 0644 [facility] Service: Hospitalist Physician Discharge Summary Patient ID: Kuldip Smith [id number] y.o. 1965 Admit date: 12/14/2016 Discharge [...] been approved, which should be given from [facility] ec until further approval from insurance. Also [...] up: Estrella Light PA-C [address] [place] [address] Rebeca Reza MD [address] [facility] [address] Schedule an appointment as soon as possible for a visit in 10 days Dictation and combination machine tool setter or software, [employer], used which may contain error for similar [...] - AMPUTATION; Surgeon: Walter Fernandez DPM; Location: [facility]IN OR; Service: Podiatry; Laterality: Left; [...] Management by Jenny Vaughan RN at 12/20/16 4921 Author: Jenny Vaughan RN Service: (none) Author Type: Registered Nurse Filed: 12/20/16 3498 Date of Service: 12/20/161538 Status: Signed Warehouse Shift Supervisor: Jenny Vaughan RN (Registered Nurse) 1610 - Received call from [facility] stating they are now unable to accept pa tient due to a "freeze on admits". They are aware patient has been discharged and is en rou te to home. They are still unable to accept. Call placed to [facility] OPP rega rding need for services. They state pt will need to arrange wound care/dressing changes thr ough his PCP per insurance requirements. Voicemail left for Coby at [facility] to return call. Will need to call back in morning to schedule appointment as clinic is currently closed. onver ruben Transaction, Provider Unknown - 12/20/2016 3:39 PM PDT Case Management by Mirlande Prescott RN at 12/20/16 5870 Author: Mirlande Prescott RN Service: (none) Author Type: Registered Nurse Filed: 12/21/16 0808 Date of Service: 12/20/16 1539 Status: Signed Warehouse Shift Supervisor: Mirlande Prescott RN (Registered Nurse) 0800: Tc to pt's PCP, Coby Light, with [facility], to updat e about [facility] not being able to admit pt. Coby states she and Charlotte will work on getting pt the appropriate wound vac care he needs, they are going to try and get pt into O P wound therapy with [facility] or maybe to OP in WW. Coby states she will als o call [facility] as to when they can admit pt under their services. Maribel onver ruben Transaction, Provider Unknown - 12/20/2016 1:03 PM PDT Progress Notes by Rachael Molina RN at 12/20/16 1303 Author: Rachael Molina RN Service: Wound/Ostomy Care Author Type: Registered Nurse Filed: 12/20/16 1311 Date of Service: 12/20/16 1303 Status: Signed Warehouse Shift Supervisor: Rachael Molina RN (Registered Nurse) Wound care in to switch patient out to portable wound vac unit. This is a sol vac on l oan from [facility]. Explained to patient when his insurance approves his home vac unit, that t his sol vac is to be returned via [employer]. Instructions given in detail, voiced candelaria frias. Photo taken of tracking number and faxed to Alicia [facility] rep. Instructions on how to use the [...] protection. Hospital vac dc'd in [facility] express: #[id number] Rachael Molina RN, ON 12/20/2016 1:10 PM onver ruben Transaction, Provider Unknown - 12/20/2016 11:34 AM PDT Case Management by Mirlande Presoctt RN at 12/20/16 1134 Author: Mirlande Prescott RN Service: (none) Author Type: Registered Nurse Filed: 12/20/16 1459 Date of Service: 12/20/16 1134 Status: Addendum Warehouse Shift Supervisor: Mirlande Prescott RN (Registered Nurse) Related Notes: Original Note by Mirlande Prescott RN (Registered Nurse) filed at 12/20/16 114 9 Per rounding with pt, he will be d/c home today. Pt states his mother will be providing tra nsportation home. Wound vac [facility]. [facility] has been set up, and [...] and agrees with plan. Tc to Coby [phone] and Charlotte [phone] with [facility]/mannie pickens nd left mssgs of pt's d/c Today. Faxed AVS to [facility] Maribel Iqra Mcgregor PT - 12/20/2016 10:07 AM PDTFormatting of this note might be different from th e original. Therapy Progress Note by Karina Zabala PT at 12/20/16 1007 Author: Karina Zabala PT Service: (none) Author Type: Physical Therapist Filed: 12/20/16 1037 Date of Service: 12/20/16 1007 Status: Signed Warehouse Shift Supervisor: Karina Zabala PT (Physical Therapist) 12/20/16 1007 [...] (none) Author Type: Physical Therapist Filed: 12/19/16 8794 Date of Service: 12/19/166 Status: Signed Warehouse Shift Supervisor: Natalia Marte PT (Physical Therapist) 12/19/16 1646 PT Last Visit PT Received On 12/19/16 Reason for Treatment Other (comment) (L foot osteomyelitis) Requires PT Follow Up Awaiting tx order Follow up PT Only? Yes (Assistive device assessment) Focus for Next Treatment Equipment Trial;Stair Training (bilateral axillary crutches and stair training) PT Eval/Reassessment Date 12/19/16 Assistance Required 1 person Shellfish Dredge Operator Needed No Home Environment Type of Home Home one story Home Exterior Layout 1-3 steps (2 JEISON) Home Interior Layout Lives on main level with bedroom/bathroom Bathroom Shower/Tub Tub/shower unit Bathroom Toilet Raised Bathroom Equipment Grab bars outside of shower/bath;Raised toilet seat Bathroom Accessibility Not accessible Home Equipment Cane single point;Crutches-axillary Prior Function Level of [place] Independent with ADLs;Independent with IADLs;Modified independent wi [...] Eval/Reassessment Date 12/19/16 Assistance Required 1 person Shellfish Dredge Operator Needed No Precautions LE Precaution(s) LLE [...] Notes by Rebeca Reza MD at 12/19/16 5481 Author: Rebeca Reza MD Service: Infectious Disease Author Type: Physician Filed: 12/20/16 0639 Date of Service: 12/19/16 0301 Status: Signed Warehouse Shift Supervisor: Rebeca Reza MD (Physician) [facility] Service: Infectious Disease Progress Note Hospital [...] Dec 15 2016 9:30AM Referring Provider Line: [phone] ID: [id number] MRI foot left without contrast [[id number]] Impression 1. Recent amputation of the LEFT 4th toe. 2. No radiographic evidence of residual osteomyelitis in the remaining ossicles of the LEF T forefoot. 3. Moderately extensive vascular calcifications. X-ray foot left [[id number]] PROBLEM LIST Principal Problem: Osteomyelitis (HCC) Active [...] Date of Service: 12/19/16 1103 Status: Signed Warehouse Shift Supervisor: Dell Archer DO (Physician) PROGRESS NOTE 12/19/2016 [...] 1103 Date of Service: 12/19/16914 Status: Addendum Warehouse Shift Supervisor: Jenny Vaughan RN (Registered Nurse) Related Notes: Original Note by Jenny Vaughan RN (Registered Nurse) filed at 12/19/16 1 038 5590 - [facility] She wi ll be following patient [...] accept patient. Face to face order faxed ([phone]) Charlotte [facility] RN [phone] Alicia with [facility] notified of wound vac placement. Auth form signed by hospitalist and faxed to Alicia. Lilyl with [facility] notified of patient discharging on oral antibiotics. onver ruben Transaction, Provider Unknown - 12/18/2016 6:45 PM PDT Nurse Progress Note by Gerber Hay RN at 12/18/161844 Author: Gerber Hay RN Service: (none) Author Type: Registered Nurse Filed: 12/18/161847 Date of Service: 12/18/161844 Status: Signed Warehouse Shift Supervisor: Gerber Hay RN (Registered Nurse) Pt resting [...] 12/18/16933 Date of Service: 12/18/16928 Status: Addendum Warehouse Shift Supervisor: Dell Archer DO (Physician) Related Notes: Original [...] 12/18/16899 Date of Service: 12/18/16854 Status: Signed Warehouse Shift Supervisor: Walter Fernandez DPM (Doctor of Podiatric Medicine) [facility] Service: Podiatry Progress Note Hospital Day: [...] home health care. Dr. David DPM in [place] take s care of this patient and [...] 12/18/16845 Date of Service: 12/18/16845 Status: Signed Warehouse Shift Supervisor: Destini Vargas RPH (Pharmacist) Day 5 Vanco [...] 1108 Date of Service: 12/18/16820 Status: Signed Warehouse Shift Supervisor: Rebeca Reza MD (Physician) [facility] Service: Infectious Disease Progress Note Hospital [...] foot wound culture (superficial) 3+ Strep agalactiae, Amrie albicans 12/15 anaerobic cultures (OR) 2+ Strep [...] Dec 15 2016 9:30AM Referring Provider Line: [id number] ID: [id number] MRI foot left without contrast [[id number]] Impression 1. Recent amputation of the LEFT 4th toe. 2. No radiographic evidence of residual osteomyelitis in the remaining ossicles of the LEF T forefoot. 3. Moderately extensive vascular calcifications. X-ray foot left [[id number]] PROBLEM LIST Principal Problem: Osteomyelitis (HCC) Active [...] Note by Jihan Jacinto RPH at 12/17/16 9292 Author: Jihan Jacinto RPH Service: Pharmacy Author Type: Pharmacist Filed: 12/17/162246 Date of Service: 12/17/162246 Status: Signed Warehouse Shift Supervisor: Jihan Jacinto RPH (Pharmacist) Clinical Pharmacy Note: [...] 12/17/161750 Date of Service: 12/17/161742 Status: Signed Warehouse Shift Supervisor: Gerber Hay RN (Registered Nurse) Wound vac [...] Notes by Rebeca Reza MD at 12/17/16 6970 Author: Rebeca Reza MD Service: Infectious Disease Author Type: Physician Filed: 12/17/16 1703 Date of Service: 12/17/16 1510 Status: Addendum Warehouse Shift Supervisor: Rebeca Reza MD (Physician) Related Notes: Original Note by Rebeca Reza MD (Physician) filed at 12/17/16 0265 [facility] Service: Infectious Disease Progress Note Hospital [...] Dec 15 2016 9:30AM Referring Provider Line: [id number] ID: 106 MRI foot left without contrast [[id number]] Impression 1. Recent amputation of the LEFT 4th toe. 2. No radiographic evidence of residual osteomyelitis in the remaining ossicles of the LEF T forefoot. 3. Moderately extensive vascular calcifications. X-ray foot left [[id number]] PROBLEM LIST Principal Problem: Osteomyelitis (HCC) Active [...] Doctor of Podiatric Medi cine Filed: 12/17/16 6203 Date of Service: 12/17/16 1406 Status: Signed Warehouse Shift Supervisor: Walter Fernandez DPM (Doctor of Podiatric Medicine) [facility] Service: Podiatry Progress Note Hospital Day: [...] Note by Gerber Hay RN at 12/17/16 4989 Author: Gerber Hay RN Service: (none) Author Type: Registered Nurse Filed: 12/17/16 7790 Date of Service: 12/17/16 1144 Status: Signed Warehouse Shift Supervisor: Gerber Hay RN (Registered Nurse) Pt had [...] Date of Service: 12/17/16 105 Status: Signed Warehouse Shift Supervisor: Dell Archer DO (Physician) PROGRESS NOTE 12/17/2016 [...] 12/17/16834 Date of Service: 12/17/16834 Status: Signed Warehouse Shift Supervisor: Destini Vargas RPH (Pharmacist) Day 4 Vanco [...] 12/17/168 Date of Service: 12/17/16307 Status: Signed Warehouse Shift Supervisor: Jihan Jacinto RPH (Pharmacist) Clinical Pharmacy Note: [...] 12/16/161719 Date of Service: 12/16/161709 Status: Signed Warehouse Shift Supervisor: Walter Fernandez DPM (Doctor of Podiatric Medicine) [facility] Service: Podiatry Progress Note Hospital Day: [...] Notes by Rebeca Reza MD at 12/16/16 9668 Author: Rebeca Reza MD Service: Infectious Disease Author Type: Physician Filed: 12/16/16 1606 Date of Service: 12/16/165 Status: Signed Warehouse Shift Supervisor: Rebeca Reza MD (Physician) [facility] Service: Infectious Disease Progress Note Hospital [...] Dec 15 2016 9:30AM Referring Provider Line: [phone] ID: [id number] MRI foot left without contrast [[id number]] Impression 1. Recent amputation of the LEFT 4th toe. 2. No radiographic evidence of residual osteomyelitis in the remaining ossicles of the LEF T forefoot. 3. Moderately extensive vascular calcifications. X-ray foot left [[id number]] PROBLEM LIST Principal Problem: Osteomyelitis (HCC) Active [...] Management by Jenny Vaughan RN at 12/16/16 8487 Author: Jenny Vaughan RN Service: (none) Author Type: Registered Nurse Filed: 12/16/16 1390 Date of Service: 12/16/16 9106 Status: Signed Warehouse Shift Supervisor: Jenny Comfort, RN (Registered Nurse) 12/16/16 8442 Discharge Planning Evaluation Admitting Diagnosis osteomyelitis Readmission No Living Arrangements Parent Support Systems Parent;Family members Type of Residence Private residence House type House-1 story Steps to enter 2 Independent with ADL's Yes Independent with Mobility Yes Mental Status Oriented Prior functional status not employed, independent Power of Odd Ticket Clerk No Anticipated Discharge Plan Post Acute Care [...] he states und erstanding. Referral sent to [facility] for nursing services as patient lives in [place]. Options for home IV abx services provided to pt/family and they do not have a preference. Referral to [facility] will follow. Pt/family requested I notify Coby at the [facility] of pt status as she ar ranges services for them. Contacted Coby and provided current discharge plan. If there is a change in plan, Coby requests to be notified as she will continue to follow patient after discharge. She also states pt will be followed by their community health nurse (Charlotte ) who works alongside [facility]. Coby [facility] [phone] Assistance in transportation: Pt's family is able [...] Date of Service: 12/16/16 1012 Status: Signed Warehouse Shift Supervisor: Dell Archer DO (Physician) PROGRESS NOTE 12/16/2016 [...] Date of Service: 12/15/16 1248 Status: Signed Warehouse Shift Supervisor: Jenny Vaughan RN (Registered Nurse) Attempted to [...] 12/15/16405 Date of Service: 12/15/16405 Status: Signed Warehouse Shift Supervisor: Jihan Jacinto RPH (Pharmacist) Clinical Pharmacy Note: [...] 12/15/16404 Date of Service: 12/15/16404 Status: Signed Warehouse Shift Supervisor: Jihan Jacinto RPH (Pharmacist) Clinical Pharmacy Note: [...] | | Fingerstick | performed at [facility];88 | | LAB | | | | [address];[place] | | | | | | [address] | | | | + + + [...] | | | | performed at [facility];888 | | LAB | | | | [address];[place], [place] | | | | | | [...] | | | | performed at [facility];888 | K/uL | LAB | | | | [address];[place] | | | | | | [address] | | | | + + + + + + | RED CELL | 4.00 (L)Comment: Testing | 4.20 - 5.70 | EXTERNAL | | | COUNT | performed at [facility];888 | M/uL | LAB | | | | [address];[place] | | | | | | [address] | | | | + + + + + + | Hgb | 11.6 (L)Comment: Testing | 13.2 - 17.0 | EXTERNAL | | | | performed at [facility];888 | g/dL | LAB | | | | [address];[place] | | | | | | [address] | | | | + + + + + + | Hematocrit, | 33.9 (L)Comment: Testing | 39.0 - 50.0 % | EXTERNAL | | | POC | performed at [facility];[address] | | LAB | | | | [address];[place] | | | | | | [address] | | | | + + + + + + | MCV | 84.7Comment: Testing | 80.0 - 100.0 fl | EXTERNAL | | | | performed at [facility];[address] | | LAB | | | | [address];[place] | | | | | | [address] | | | | + + + + + + | MCH | 28.9Comment: Testing | 27.0 - 34.0 pg | EXTERNAL | | | | performed at [facility];[address] | | LAB | | | | [address];[place] | | | | | | [address] | | | | + + + + + + | MCHC | 34.1Comment: Testing | 32.0 - 35.5 | EXTERNAL | | | | performed at [facility];888 | g/dL | LAB | | | | [address];[place] | | | | | | [address] | | | | + + + + + + | RDW-CV | 42.0Comment: Testing | 37 - 53 fl | EXTERNAL | | | | performed at [facility];[address] | | LAB | | | | [address];[place] | | | | | | [address] | | | | + + + + + + | Platelet | 392Comment: Testing | 150 - 400 K/uL | EXTERNAL | | | Count | performed at [facility];888 | | LAB | | | Plasma | [address];[place] | | | | | | [address] | | | | + + + + + + | MPV | 7.0Comment: Testing | fl | EXTERNAL | | | | performed at [facility];[address] | | LAB | | | | [address];[place] | | | | | | [address] | | | | + + + + + + | Differentia | MANUALComment: Testing | | EXTERNAL | | | l Type | performed at [facility];[address] | | LAB | | | | [address];[place] | | | | | | [address] | | | | + + + + + + | Segmented | 69Comment: Testing | % | EXTERNAL | | | Neutrophils | performed at [facility];888 | | LAB | | | Manual | [address];[place] | | | | | | [address] | | | | + + + + + + | Lymphocytes | 21Comment: Testing | % | EXTERNAL | | | Manual | performed at [facility];[address] | | LAB | | | | [address];[place] | | | | | | [address] | | | | + + + + + + | Monocytes | 4Comment: Testing | % | EXTERNAL | | | Manual | performed at [facility];[address] | | LAB | | | | [address];[place] | | | | | | [address] | | | | + + + + + + | Eosinophils | 6Comment: Testing | % | EXTERNAL | | | Manual | performed at [facility];[address] | | LAB | | | | [address];[place] | | | | | | [address] | | | | + + + + + + | Absolute | 5.08Comment: Testing | 1.90 - 7.40 | EXTERNAL | | | Neutrophils | performed at [facility];888 | K/uL | LAB | | | | [address];[place] | | | | | | [address] | | | | + + + + + + | Absolute | 1.55Comment: Testing | 1.00 - 3.90 | EXTERNAL | | | Lymphocytes | performed at [facility];888 | K/uL | LAB | | | | [address];[place] | | | | | | [address] | | | | + + + + + + | Absolute | 0.29Comment: Testing | 0.00 - 0.80 | EXTERNAL | | | Monocytes | performed at [facility];888 | K/uL | LAB | | | | [address];[place] | | | | | | [address] | | | | + + + + + + | Absolute | 0.44Comment: Testing | 0.00 - 0.50 | EXTERNAL | | | Eosinophils | performed at [facility];888 | K/uL | LAB | | | | [address];[place] | | | | | | [address] | | | | + + + + + + | RBC | NORMALComment: Testing | | EXTERNAL | | | Morphology | performed at [facility];[address] | | LAB | | | | [address];[place] | | | | | | [address] | | | | + + + [...] | | | | performed at [facility];888 | | LAB | | | | [address];[place] | | | | | | [address] | | | | + + + [...] | | Fingerstick | performed at [facility];888 | | LAB | | | | [address];[place], [place] | | | | | | [address] | | | | + + + [...] | | Fingerstick | performed at [facility];888 | | LAB | | | | [address];[place] | | | | | | [address] | | | | + + + [...] | | Fingerstick | performed at [facility];888 | | LAB | | | | [address];[place] | | | | | | [address] | | | | + + + [...] | | Fingerstick | performed at [facility];888 | | LAB | | | | [address];[place] | | | | | | [address] | | | | + + + [...] | | Fingerstick | performed at [facility];888 | | LAB | | | | [address];[place], [place] | | | | | | [address] | | | | + + + [...] | | Fingerstick | performed at [facility];[address] | | LAB | | | | [address];[place] | | | | | | [address] | | | | + + + [...] | | Fingerstick | performed at [facility];[address] | | LAB | | | | [address];[place], [place] | | | | | | [address] | | | | + + + [...] | | Fingerstick | performed at [facility];[address] | | LAB | | | | [address];[place] | | | | | | [address] | | | | + + + [...] EXTERNAL LAB | | performed at [facility];[address] [place] [address];[place] [address] TOXIN A | | | NEGATIVE Testing performed at | | | [facility];[address] [facility];[place] [address] C DIFF INTERPRETATION | | | Negative for toxigenic C.difficile. Testing performed at | | | [facility];[address] [place] [address];[place] [address] | | + + + + +---------+ [...] | | Fingerstick | performed at [facility];[address] | | LAB | | | | [address];[place] | | | | | | [address] | | | | + + + [...] EXTERNAL | | | | performed at [facility], [address] | K/uL | LAB | | | | [address], | | | | | | [place] [address] | | | | + + + + + + | RED CELL | 3.92 (L)Comment: Testing | 4.20 - 5.70 | EXTERNAL | | | COUNT | performed at [facility], [address] | M/uL | LAB | | | | [address], | | | | | | [place] [address] | | | | + + + + + + | Hgb | 11.2 (L)Comment: Testing | 13.2 - 17.0 | EXTERNAL | | | | performed at [facility], [address] | g/dL | LAB | | | | [address], | | | | | | [place] [address] | | | | + + + + + + | Hematocrit, | 33.6 (L)Comment: Testing | 39.0 - 50.0 % | EXTERNAL | | | POC | performed at [facility], [address] | | LAB | | | | [address], | | | | | | [place] [address] | | | | + + + + + + | MCV | 85.9Comment: Testing | 80.0 - 100.0 fl | EXTERNAL | | | | performed at [facility], [address] | | LAB | | | | [address], | | | | | | [place] [address] | | | | + + + + + + | MCH | 28.7Comment: Testing | 27.0 - 34.0 pg | EXTERNAL | | | | performed at [facility], [address] | | LAB | | | | [address], | | | | | | [place] [address] | | | | + + + + + + | MCHC | 33.4Comment: Testing | 32.0 - 35.5 | EXTERNAL | | | | performed at [facility], [address] | g/dL | LAB | | | | [address], | | | | | | [place] [address] | | | | + + + + + + | RDW-CV | 41.1Comment: Testing | 37 - 53 fl | EXTERNAL | | | | performed at [facility], [address] | | LAB | | | | [address], | | | | | | [place] [address] | | | | + + + + + + | Platelet | 341Comment: Testing | 150 - 400 K/uL | EXTERNAL | | | Count | performed at [facility], [address] | | LAB | | | Plasma | [address], | | | | | | [place] [address] | | | | + + + + + + | MPV | 7.6Comment: Testing | fl | EXTERNAL | | | | performed at [facility], [address] | | LAB | | | | [address], | | | | | | [place] [address] | | | | + + + + + + | Differentia | AUTOMATEDComment: | | EXTERNAL | | | l Type | Testing performed at | | LAB | | | | [facility], [address] | | | | | | [place] | | | | | | [address] | | | | + + + + + + | % Segmented | 76.22Comment: Testing | % | EXTERNAL | | | | performed at [facility], [address] | | LAB | | | Neutrophils | [address], | | | | | | [place] [address] | | | | + + + + + + | % | 12.04Comment: Testing | % | EXTERNAL | | | Lymphocytes | performed at [facility], [address] | | LAB | | | | [address], | | | | | | [place] [address] | | | | + + + + + + | % Monocytes | 6.15Comment: Testing | % | EXTERNAL | | | | performed at [facility], [address] | | LAB | | | [address], | | | | | | [place] [address] | | | | + + + + + + | % | 4.73Comment: Testing | % | EXTERNAL | | | Eosinophils | performed at [facility], [address] | | LAB | | | | [address], | | | | | | [place] [address] | | | | + + + + + + | % Basophils | 0.86Comment: Testing | % | EXTERNAL | | | | performed at [facility], [address] | | LAB | | | | [address], | | | | | | [place] [id number] | | | | + + + + + + | Absolute | 8.38 (H)Comment: Testing | 1.90 - 7.40 | EXTERNAL | | | Segmented | performed at [facility], [address] | [address] | LAB | | | Neutrophils | [address], | | | | | | [place] [address] | | | | + + + + + + | Absolute | 1.32Comment: Testing | 1.00 - 3.90 | EXTERNAL | | | Lymphocytes | performed at [facility], [address] | K[address]L | LAB | | | | [address], | | | | | | [place] [id number] | | | | + + + + + + | Absolute | 0.68Comment: Testing | 0.00 - 0.80 | EXTERNAL | | | Monocytes | performed at [facility], [address] | K/uL | LAB | | | | [address], | | | | | | [place] [id number] | | | | + + + + + + | Absolute | 0.52 (H)Comment: Testing | 0.00 - 0.50 | EXTERNAL | | | Eosinophils | performed at [facility], [address] | [address] | LAB | | | | [address], | | | | | | [place] [id number] | | | | + + + + + + | Absolute | 0.10Comment: Testing | 0.00 - 0.10 | EXTERNAL | | | Basophils | performed at [facility], [address] | K/uL | [...] | | | | [place] [address] | | | | + + + + + + | K | 3.8Comment: Testing | 3.5 - 4.9 | EXTERNAL | | | | performed at [facility], [address] | mmol/L | LAB | | | | [address], | | | | | | [place] [address] | | | | + + + + + + | Cl | 105Comment: Testing | 99 - 109 mmol/L | EXTERNAL | | | | performed at [facility], [address] | | LAB | | | | [address], | | | | | | [place] [address] | | | | + + + + + + | CO2 | 25Comment: Testing | 23 - 32 mmol/L | EXTERNAL | | | | performed at [facility], [address] | | LAB | | | | [address], | | | | | | [place] [address] | | | | + + + + + + | Anion Gap | 12Comment: Testing | 5 - 20 mmol/L | EXTERNAL | | | | performed at [facility], [address] | | LAB | | | | [address], | | | | | | [place] [address] | | | | + + + + + + | Glucose, | 236 (H)Comment: Testing | 65 - 99 mg/dL | EXTERNAL | | | Fasting | performed at [facility], [address] | | LAB | | | | [address], | | | | | | [place] [address] | | | | + + + + + + | BUN | 6 (L)Comment: Testing | 8 - 25 mg/dL | EXTERNAL | | | | performed at [facility], [address] | | LAB | | | | [address], | | | | | | [place] [address] | | | | + + + + + + | Creatinine | 0.9Comment: Testing | 0.70 - 1.30 | EXTERNAL | | | | performed at [facility], [address] | mg/dL | LAB | | | | [address], | | | | | | [place] [address] | | | | + + + + + + | BUN/Creatin | 7Comment: Testing | | EXTERNAL | | | ine Ratio | performed at [facility], [address] | | LAB | | | | [address], | | | | | | [place] [address] | | | | + + + + + + | Calcium | 8.3 (L)Comment: Testing | 8.5 - 10.5 | EXTERNAL | | | | performed at [facility], [address] | mg/dL | LAB | | | | [address], | | | | | | [place] [address] | | | | + + + [...] Man, | | | | | | [place] [address] | | | | + + + [...] | | Fingerstick | performed at [facility];88 | | LAB | | | | [address];[place] | | | | | | [address] | | | | + + + [...] | | | | performed at [facility];[address] | | | | | | [address];[place] | | | | | | [address] | | | | + + + [...] | | Fingerstick | performed at [facility];[address] | | LAB | | | | [address];[place], [place] | | | | | | [address] | | | | + + + [...] | | Fingerstick | performed at [facility];[address] | | LAB | | | | [address];[place] | | | | | | [address] | | | | + + + [...] | | Fingerstick | performed at [facility];[address] | | LAB | | | | [address];[place] | | | | | | [address] [...] [place] | | | | | | [address] | | | | + + + + + + | RED CELL | 4.13 (L)Comment: Testing | 4.20 - 5.70 | EXTERNAL | | | COUNT | performed at [facility], [address] | M/uL | LAB | | | | [address], | | | | | | [place] [address] | | | | + + + + + + | Hgb | 11.7 (L)Comment: Testing | 13.2 - 17.0 | EXTERNAL | | | | performed at [facility], [address] | g/dL | LAB | | | | [address], | | | | | | [place] [address] | | | | + + + + + + | Hematocrit, | 34.8 (L)Comment: Testing | 39.0 - 50.0 % | EXTERNAL | | | POC | performed at [facility], [address] | | LAB | | | | [address], | | | | | | [place] [address] | | | | + + + + + + | MCV | 84.2Comment: Testing | 80.0 - 100.0 fl | EXTERNAL | | | | performed at [facility], [address] | | LAB | | | | [address], | | | | | | [place] [id number] | | | | + + + + + + | MCH | 28.2Comment: Testing | 27.0 - 34.0 pg | EXTERNAL | | | | performed at [facility], [address] | | LAB | | | | [address], | | | | | | [place] [id number] | | | | + + + + + + | MCHC | 33.5Comment: Testing | 32.0 - 35.5 | EXTERNAL | | | | performed at [facility], [address] | g/dL | LAB | | | | [address], | | | | | | [place] [id number] | | | | + + + + + + | RDW-CV | 42.0Comment: Testing | 37 - 53 fl | EXTERNAL | | | | performed at [facility], [address] | | LAB | | | | [address], | | | | | | [place] [address] | | | | + + + + + + | Platelet | 329Comment: Testing | 150 - 400 K/uL | EXTERNAL | | | Count | performed at [facility], [address] | | LAB | | | Plasma | [address], | | | | | | [place] [address] | | | | + + + + + + | MPV | 7.9Comment: Testing | fl | EXTERNAL | | | | performed at [facility], [address] | | LAB | | | | [address], | | | | | | [place] [address] | | | | + + + + + + | Differentia | AUTOMATEDComment: | | EXTERNAL | | | l Type | Testing performed at | | LAB | | | | [facility], [address] | | | | | | [place] | | | | | | [address] | | | | + + + + + + | % Segmented | 83.29Comment: Testing | % | EXTERNAL | | | | performed at [facility], [address] | | LAB | | | Neutrophils | [address], | | | | | | [place] [address] | | | | + + + + + + | % | 8.71Comment: Testing | % | EXTERNAL | | | Lymphocytes | performed at [facility], [address] | | LAB | | | | [address], | | | | | | [place] [address] | | | | + + + + + + | % Monocytes | 5.08Comment: Testing | % | EXTERNAL | | | | performed at [facility], [address] | | LAB | | | | [address], | | | | | | [place] [address] | | | | + + + + + + | % | 2.32Comment: Testing | % | EXTERNAL | | | Eosinophils | performed at [facility], [address] | | LAB | | | | [address], | | | | | | [place] [address] | | | | + + + + + + | % Basophils | 0.60Comment: Testing | % | EXTERNAL | | | | performed at [facility], [address] | | LAB | | | | [address], | | | | | | [place] [address] | | | | + + + + + + | Absolute | 12.15 (H)Comment: | 1.90 - 7.40 | EXTERNAL | | | Segmented | Testing performed at | K/uL | LAB | | | Neutrophils | [facility], [address] | | | | | | [place] | | | | | | [address] | | | | + + + + + + | Absolute | 1.27Comment: Testing | 1.00 - 3.90 | EXTERNAL | | | Lymphocytes | performed at [facility], [address] | K/uL | LAB | | | | [address], | | | | | | [place] [address] | | | | + + + + + + | Absolute | 0.74Comment: Testing | 0.00 - 0.80 | EXTERNAL | | | Monocytes | performed at [facility], [address] | K/uL | LAB | | | | [address], | | | | | | [place] [address] | | | | + + + + + + | Absolute | 0.34Comment: Testing | 0.00 - 0.50 | EXTERNAL | | | Eosinophils | performed at [facility], [address] | K[address]L | LAB | | | [address], | | | | | | [place] [address] | | | | + + + + + + | Absolute | 0.09Comment: Testing | 0.00 - 0.10 | EXTERNAL | | | Basophils | performed at [facility], [address] | K/uL | LAB | | | | [address], | | | | | | [place] [address] | | | | + + + [...] | | | | [place] [address] | | | | + + + + + + | K | 3.8Comment: Testing | 3.5 - 4.9 | EXTERNAL | | | | performed at [facility], [address] | mmol/L | LAB | | | | [address], | | | | | | [place] [address] | | | | + + + + + + | Cl | 104Comment: Testing | 99 - 109 mmol/L | EXTERNAL | | | | performed at [facility], [address] | | LAB | | | | [address], | | | | | | [place] [address] | | | | + + + + + + | CO2 | 27Comment: Testing | 23 - 32 mmol/L | EXTERNAL | | | | performed at [facility], [address] | | LAB | | | | [address], | | | | | | [place] [address] | | | | + + + + + + | Anion Gap | 11Comment: Testing | 5 - 20 mmol/L | EXTERNAL | | | | performed at [facility], [address] | | LAB | | | | [address], | | | | | | [place] [address] | | | | + + + + + + | Glucose, | 196 (H)Comment: Testing | 65 - 99 mg/dL | EXTERNAL | | | Fasting | performed at [facility], [address] | | LAB | | | | [address], | | | | | | [place] [address] | | | | + + + + + + | BUN | 5 (L)Comment: Testing | 8 - 25 mg/dL | EXTERNAL | | | | performed at [facility], [address] | | LAB | | | | [address], | | | | | | [place] [address] | | | | + + + + + + | Creatinine | 0.9Comment: Testing | 0.70 - 1.30 | EXTERNAL | | | | performed at [facility], [address] | mg/dL | LAB | | | | [address], | | | | | | [place] [address] | | | | + + + + + + | BUN/Creatin | 6Comment: Testing | | EXTERNAL | | | ine Ratio | performed at [facility], [address] | | LAB | | | | [address], | | | | | | [place] [address] | | | | + + + + + + | Calcium | 8.4 (L)Comment: Testing | 8.5 - 10.5 | EXTERNAL | | | | performed at [facility], [address] | mg/dL | LAB | | | | [address], | | | | | | [place] [id number] | | | | + + + [...] | | | | | | at [facility], [address] | | | | | | [address], | | | | | | [place] [id number] | | | | + + + [...] | | Fingerstick | performed at [facility];[address] | | LAB | | | | [address];[place] | | | | | | [address] | | | | + + + [...] | | Fingerstick | performed at [facility];8 | | LAB | | | | [address];[place] | | | | | | [address] | | | | + + + [...] | | | | performed at [facility] | | | | | | [facility];[place], [place] | | | | | | [address] | | | | + + + [...] | | Fingerstick | performed at [facility];[address] | | LAB | | | | [address];[place] | | | | | | [address] | | | | + + + [...] | | Fingerstick | performed at [facility];[address] | | LAB | | | | [address];[place], [place] | | | | | | [address] | | | | + + + [...] | | | | [facility], [address] [facility] | | | | | | [place] | | | | | | [address] | | | | + + + + + + | RED CELL | 4.31Comment: Testing | 4.20 - 5.70 | EXTERNAL | | | COUNT | performed at [facility], [address] | M/uL | LAB | | | | [address], | | | | | | [place] [address] | | | | + + + + + + | Hgb | 12.3 (L)Comment: Testing | 13.2 - 17.0 | EXTERNAL | | | | performed at [facility], [address] | g/dL | LAB | | | | [address], | | | | | | [place] [address] | | | | + + + + + + | Hematocrit, | 36.4 (L)Comment: Testing | 39.0 - 50.0 % | EXTERNAL | | | POC | performed at [facility], [address] | | LAB | | | | [address], | | | | | | [place] [address] | | | | + + + + + + | MCV | 84.5Comment: Testing | 80.0 - 100.0 fl | EXTERNAL | | | | performed at [facility], [address] | | LAB | | | [address], | | | | | | [place] [address] | | | | + + + + + + | MCH | 28.5Comment: Testing | 27.0 - 34.0 pg | EXTERNAL | | | | performed at [facility], [address] | | LAB | | | | [address], | | | | | | [place] [address] | | | | + + + + + + | MCHC | 33.8Comment: Testing | 32.0 - 35.5 | EXTERNAL | | | | performed at [facility], [address] | g/dL | LAB | | | | [address], | | | | | | [place] [address] | | | | + + + + + + | RDW-CV | 42.9Comment: Testing | 37 - 53 fl | EXTERNAL | | | | performed at [facility], [address] | | LAB | | | | [address], | | | | | | [place] [address] | | | | + + + + + + | Platelet | 307Comment: Testing | 150 - 400 K/uL | EXTERNAL | | | Count | performed at [facility], [address] | | LAB | | | Plasma | [address], | | | | | | [place] [address] | | | | + + + + + + | MPV | 8.0Comment: Testing | fl | EXTERNAL | | | | performed at [facility], [address] | | LAB | | | | [address], | | | | | | [place] [address] | | | | + + + + + + | Differentia | AUTOMATEDComment: | | EXTERNAL | | | l Type | Testing performed at | | LAB | | | | [facility], [address] | | | | | | [place] | | | | | | [address] | | | | + + + + + + | % Segmented | 85.00Comment: Testing | % | EXTERNAL | | | | performed at [facility], [address] | | LAB | | | Neutrophils | [address], | | | | | | [place] [address] | | | | + + + + + + | % | 7.15Comment: Testing | % | EXTERNAL | | | Lymphocytes | performed at [facility], [address] | | LAB | | | | [address], | | | | | | [place] [address] | | | | + + + + + + | % Monocytes | 5.39Comment: Testing | % | EXTERNAL | | | | performed at [facility], [address] | | LAB | | | [address], | | | | | | [place] [address] | | | | + + + + + + | % | 1.86Comment: Testing | % | EXTERNAL | | | Eosinophils | performed at [facility], [address] | | LAB | | | [address], | | | | | | [place] [address] | | | | + + + + + + | % Basophils | 0.60Comment: Testing | % | EXTERNAL | | | | performed at [facility], [address] | | LAB | | | | [address], | | | | | | [place] [address] | | | | + + + + + + | Absolute | 13.51 (H)Comment: | 1.90 - 7.40 | EXTERNAL | | | Segmented | Testing performed at | K/uL | LAB | | | Neutrophils | [facility], [address] | | | | | | [place] | | | | | | [address] | | | | + + + + + + | Absolute | 1.14Comment: Testing | 1.00 - 3.90 | EXTERNAL | | | Lymphocytes | performed at [facility], [address] | K/uL | LAB | | | | [address], | | | | | | [place] [address] | | | | + + + + + + | Absolute | 0.86 (H)Comment: Testing | 0.00 - 0.80 | EXTERNAL | | | Monocytes | performed at [facility], [address] | [address] | LAB | | | | [address], | | | | | | [place] [address] | | | | + + + + + + | Absolute | 0.30Comment: Testing | 0.00 - 0.50 | EXTERNAL | | | Eosinophils | performed at [facility], [address] | K/uL | LAB | | | [address], | | | | | | [place] [id number] | | | | + + + + + + | Absolute | 0.10Comment: Testing | 0.00 - 0.10 | EXTERNAL | | | Basophils | performed at [facility], [address] | K/uL | LAB | | | | [address], | | | | | | [place] [id number] | | | | + + + [...] EXTERNAL | | | | performed at [facility], [address] | mmol/L | LAB | | | | [address], | | | | | | [place] [address] | | | | + + + + + + | K | 4.0Comment: Testing | 3.5 - 4.9 | EXTERNAL | | | | performed at [facility], [address] | mmol/L | LAB | | | | [address], | | | | | | [place] [address] | | | | + + + + + + | Cl | 103Comment: Testing | 99 - 109 mmol/L | EXTERNAL | | | | performed at [facility], [address] | | LAB | | | | [address], | | | | | | [place] [address] | | | | + + + + + + | CO2 | 24Comment: Testing | 23 - 32 mmol/L | EXTERNAL | | | | performed at [facility], [address] | | LAB | | | | [address], | | | | | | [place] [address] | | | | + + + + + + | Anion Gap | 14Comment: Testing | 5 - 20 mmol/L | EXTERNAL | | | | performed at [facility], [address] | | LAB | | | | [address], | | | | | | [place] [address] | | | | + + + + + + | Glucose, | 207 (H)Comment: Testing | 65 - 99 mg/dL | EXTERNAL | | | Fasting | performed at [facility], [address] | | LAB | | | | [address], | | | | | | [place] [address] | | | | + + + + + + | BUN | 7 (L)Comment: Testing | 8 - 25 mg/dL | EXTERNAL | | | | performed at [facility], [address] | | LAB | | | | [address], | | | | | | [place] [address] | | | | + + + + + + | Creatinine | 0.9Comment: Testing | 0.70 - 1.30 | EXTERNAL | | | | performed at [facility], [address] | mg/dL | LAB | | | | [address], | | | | | | [place] [address] | | | | + + + + + + | BUN/Creatin | 8Comment: Testing | | EXTERNAL | | | ine Ratio | performed at [facility], [address] | | LAB | | | | [address], | | | | | | [place] [address] | | | | + + + + + + | Calcium | 8.2 (L)Comment: Testing | 8.5 - 10.5 | EXTERNAL | | | | performed at [facility], [address] | mg/dL | LAB | | | | [address], | | | | | | [place] W | | | | | | [address], | | | | | | [place] [address] | | | | + + + [...] | | Fingerstick | performed at [facility];[address] | | LAB | | | | [address];[place], [place] | | | | | | [address] | | | | + + + [...] with a red-brown discoloration of the bone. [employer] | | | sections are submitted in cassette B1 and placed into decal prior to | | | processing. [facility] MICROSCOPIC EXAMINATION: A-B. Histologic | | | sections of all submitted blocks are examined by light microscopy. | | | These findings, together with the gross examination, support the | | | pathologic diagnosis. PERFORMING LABORATORY: Professional | | | interpretation and technical preparation was performed by [facility] | | | [facility], [address], | | | [place] [id number] ([employer]: Rafat Lorenzo M.D.; [facility]#: | | | [id number]). Diagnostician: Isi Gore MD Pathologist | | [...] | | Fingerstick | performed at [facility];[address] | | LAB | | | | [address];[place] | | | | | | [address] | | | | + + + [...] | | Fingerstick | performed at [facility];[address] | | LAB | | | | [address];[place], [place] | | | | | | [address] | | | | + + + [...] | | Fingerstick | performed at [facility];[address] | | LAB | | | | [address];[place] | | | | | | [address] | | | | + + + [...] | | | | performed at [facility];[address] | | LAB | | | | [address];[place] | | | | | | [address] | | | | + + + + + + | PCO2 ART | 32 (L)Comment: Testing | 35 - 45 mmHg | EXTERNAL | | | | performed at [facility];[address] | | LAB | | | | [address];[place] | | | | | | [address] | | | | + + + + + + | PO2 ART | 81Comment: Testing | 80 - 105 mmHg | EXTERNAL | | | | performed at [facility];[address] | | LAB | | | | [address];[place] | | | | | | [address] | | | | + + + + + + | Lactate, | <0.30 (L)Comment: | 0.36 - 1.25 | EXTERNAL | | | Arterial | Testing performed at | mmol/L | LAB | | | | [address] | | [address];[place] [address] | | | | + + + + + + | HCO3 ART | 19 (L)Comment: Testing | 22 - 26 mmol/L | EXTERNAL | | | | performed at [facility];[address] | | LAB | | | | [address];[place] | | | | | | [address] | | | | + + + + + + | POC | 20 (L)Comment: Testing | 23 - 27 mEq/L | EXTERNAL | | | APPEARANCE | performed at [facility];[address] | | LAB | | | UA | [address];[place] | | | | | | [address] | | | | + + + + + + | Base | 6 (H)Comment: Testing | 0.0 - 2.0 | EXTERNAL | | | deficit | performed at [facility];[address] | mmol/L | LAB | | | | [address];[place] | | | | | | [address] | | | | + + + + + + | O2 SAT ART | 96Comment: Testing | 95 - 98 % | EXTERNAL | | | | performed at [facility];[address] | | LAB | | | | [address];[place] | | | | | | [address] | | | | + + + + + + | FiO2, POC | 21Comment: Testing | % | EXTERNAL | | | | performed at [facility];[address] | | LAB | | | | [address];[place] | | | | | | [address] | | | | + + + [...] | | | | performed at [facility];[address] | mmol/L | LAB | | | | [address];[place], [place] | | | | | | [address] | | | | + + + [...] | | Fingerstick | performed at [facility];8 | | LAB | | | | [address];[place], [place] | | | | | | [address] | | | | + + + [...] EXTERNAL | | | | performed at [facility], [address] | | LAB | | | | [address], | | | | | | [place] [address] | | | | + + + + + + | Clarity | CLEARComment: Testing | | EXTERNAL | | | | performed at [facility], [address] | | LAB | | | | [address], | | | | | | [place] [address] | | | | + + + + + + | Specific | 1.022Comment: Testing | 1.002 - 1.030 | EXTERNAL | | | [place] | performed at [facility], [address] | | LAB | | | | [address], | | | | | | [place] [address] | | | | + + + + + + | Leukocyte | NEGATIVEComment: | | EXTERNAL | | | Esterase, | Testing performed at | | LAB | | | Urine | [facility], [address] | | | | | | [place] | | | | | | [address] | | | | + + + + + + | Nitrite, | NEGATIVEComment: Testing | | EXTERNAL | | | Urine | performed at [facility], [address] | | LAB | | | | [address], | | | | | | [place] [address] | | | | + + + + + + | Urobilinoge | NORMALComment: Testing | mg/dL | EXTERNAL | | | n, Urine | performed at [facility], [address] | | LAB | | | | [address], | | | | | | [place] [address] | | | | + + + + + + | Protein, | NEGATIVEComment: Testing | mg/dL | EXTERNAL | | | Urine | performed at [facility], [address] | | LAB | | | | [address], | | | | | | [place] [address] | | | | + + + + + + | pH, Urine | 6.0Comment: Testing | 5.0 - 8.0 | EXTERNAL | | | | performed at [facility], [address] | | LAB | | | | [address], | | | | | | [place] [address] | | | | + + + + + + | Blood, | NEGATIVEComment: Testing | | EXTERNAL | | | Urine | performed at [facility], [address] | | LAB | | | | [address], | | | | | | [place] [address] | | | | + + + + + + | Ketones | NEGATIVEComment: Testing | mg/dL | EXTERNAL | | | | performed at [facility], [address] | | LAB | | | | [address], | | | | | | [place] [address] | | | | + + + + + + | Bilirubin, | NEGATIVEComment: Testing | | EXTERNAL | | | Urine | performed at [facility], [address] | | LAB | | | | [address], | | | | | | [place] [address] | | | | + + + + + + | Glucose, | >500 (A)Comment: Testing | mg/dL | EXTERNAL | | | Urine | performed at [facility], [address] | | LAB | | | | [address], | | | | | | [place] [address] | | | | + + + [...] | LAB | | | | [facility];[address] | [address];[place] [address] | | | | + + + + + + | PCO2 ART | 56 (H)Comment: Testing | 35 - 45 mmHg | EXTERNAL | | | | performed at [facility];[address] | | LAB | | | | [address];[place] | | | | | | [address] | | | | + + + + + + | PO2 ART | 74 (L)Comment: Testing | 80 - 105 mmHg | EXTERNAL | | | | performed at [facility];[address] | | LAB | | | | [address];[place] | | | | | | [address] | | | | + + + + + + | Lactate, | 7.11 (H)Comment: Testing | 0.36 - 1.25 | EXTERNAL | | | Arterial | performed at [facility];[address] | mmol/L | LAB | | | | [address];[place] | | | | | | [address] | | | | + + + + + + | HCO3 ART | 9 (L)Comment: Testing | 22 - 26 mmol/L | EXTERNAL | | | | performed at [facility];[address] | | LAB | | | | [address];[place] | | | | | | [address] | | | | + + + + + + | POC | 11 (L)Comment: Testing | 23 - 27 mEq/L | EXTERNAL | | | APPEARANCE | performed at [facility];[address] | | LAB | | | [address] | [address];[place] | | | | | | [address] | | | | + + + + + + | Base | 25 (H)Comment: Testing | 0.0 - 2.0 | EXTERNAL | | | deficit | performed at [facility];[address] | mmol/L | LAB | | | | [address];[place] | | | | | | [address] | | | | + + + + + + | O2 SAT ART | 77 (L)Comment: Testing | 95 - 98 % | EXTERNAL | | | | performed at [facility];[address] | | LAB | | | | [address];[place] | | | | | | [address] | | | | + + + + + + | FiO2, POC | 100Comment: Testing | % | EXTERNAL | | | | performed at [facility];[address] | | LAB | | | | [address];[place] | | | | | | [address] | | | | + + + [...] [place] | | | | | | [address] | | | | + + + + + + | RED CELL | 4.04 (L)Comment: Testing | 4.20 - 5.70 | EXTERNAL | | | COUNT | performed at [facility], [address] | M/uL | LAB | | | | [address], | | | | | | [place] [address] | | | | + + + + + + | Hgb | 11.4 (L)Comment: Testing | 13.2 - 17.0 | EXTERNAL | | | | performed at [facility], [address] | g/dL | LAB | | | | [address], | | | | | | [place] [address] | | | | + + + + + + | Hematocrit, | 35.1 (L)Comment: Testing | 39.0 - 50.0 % | EXTERNAL | | | POC | performed at [facility], [address] | | LAB | | | | [address], | | | | | | [place] [address] | | | | + + + + + + | MCV | 86.7Comment: Testing | 80.0 - 100.0 fl | EXTERNAL | | | | performed at [facility], [address] | | LAB | | | | [address], | | | | | | [place] [address] | | | | + + + + + + | MCH | 28.2Comment: Testing | 27.0 - 34.0 pg | EXTERNAL | | | | performed at [facility], [address] | | LAB | | | [address], | | | | | | [place] [address] | | | | + + + + + + | MCHC | 32.5Comment: Testing | 32.0 - 35.5 | EXTERNAL | | | | performed at [facility], [address] | g/dL | LAB | | | | [address], | | | | | | [place] [address] | | | | + + + + + + | RDW-CV | 42.0Comment: Testing | 37 - 53 fl | EXTERNAL | | | | performed at [facility], [address] | | LAB | | | | [address], | | | | | | [place] [address] | | | | + + + + + + | Platelet | 262Comment: Testing | 150 - 400 K/uL | EXTERNAL | | | Count | performed at [facility], [address] | | LAB | | | Plasma | [address], | | | | | | [place] [address] | | | | + + + + + + | MPV | 8.4Comment: Testing | fl | EXTERNAL | | | | performed at [facility], [address] | | LAB | | | | [address], | | | | | | [place] [address] | | | | + + + + + + | Differentia | AUTOMATEDComment: | | EXTERNAL | | | l Type | Testing performed at | | LAB | | | | [facility], [address] | | | | | | [place] | | | | | | [address] | | | | + + + + + + | % Segmented | 82.60Comment: Testing | % | EXTERNAL | | | | performed at [facility], [address] | | LAB | | | Neutrophils | [address], | | | | | | [place] [address] | | | | + + + + + + | % | 7.47Comment: Testing | % | EXTERNAL | | | Lymphocytes | performed at [facility], [address] | | LAB | | | | [address], | | | | | | [place] [address] | | | | + + + + + + | % Monocytes | 6.29Comment: Testing | % | EXTERNAL | | | | performed at [facility], [address] | | LAB | | | | [address], | | | | | | [place] [address] | | | | + + + + + + | % | 3.29Comment: Testing | % | EXTERNAL | | | Eosinophils | performed at [facility], [address] | | LAB | | | | [address], | | | | | | [place] [address] | | | | + + + + + + | % Basophils | 0.35Comment: Testing | % | EXTERNAL | | | | performed at [facility], [address] | | LAB | | | | [address], | | | | | | [place] [address] | | | | + + + + + + | Absolute | 13.94 (H)Comment: | 1.90 - 7.40 | EXTERNAL | | | Segmented | Testing performed at | K/uL | LAB | | | Neutrophils | [facility], [address] | | | | | | [place] | | | | | | [address] | | | | + + + + + + | Absolute | 1.26Comment: Testing | 1.00 - 3.90 | EXTERNAL | | | Lymphocytes | performed at [facility], [address] | K/uL | LAB | | | | [address], | | | | | | [place] [address] | | | | + + + + + + | Absolute | 1.06 (H)Comment: Testing | 0.00 - 0.80 | EXTERNAL | | | Monocytes | performed at [facility], [address] | K/uL | LAB | | | | [address], | | | | | | [place] [address] | | | | + + + + + + | Absolute | 0.56 (H)Comment: Testing | 0.00 - 0.50 | EXTERNAL | | | Eosinophils | performed at [facility], [address] | K/uL | LAB | | | | [address], | | | | | | [place] [address] | | | | + + + + + + | Absolute | 0.06Comment: Testing | 0.00 - 0.10 | EXTERNAL | | | Basophils | performed at [facility], [address] | K/uL | LAB | | | | [address], | | | | | | [place] [address] | | | | + + + [...] EXTERNAL | | | | performed at [facility], [address] | | LAB | | | | [address], | | | | | | [place] [address] | | | | + + + [...] EXTERNAL | | | | performed at [facility], [address] | | LAB | | | | [address], | | | | | | [place] [address] | | | | + + + [...] | EXTERNAL | | | A1c | Malagasy Diabetes | | LAB | | | [...] | | | | | performed at [facility], [address] | | | | | | [address] [facility], | | | | | | [place] [address] | | | | + + + [...] | | | | | performed at [facility], [address] | | | | | | [facility], | | | | | | [place] [address] | | | | + + + [...] | | | | [place] [address] | | | | + + + + + + | K | 4.6Comment: Testing | 3.5 - 4.9 | EXTERNAL | | | | performed at [facility], [address] | mmol/L | LAB | | | | [address], | | | | | | [place] [address] | | | | + + + + + + | Cl | 103Comment: Testing | 99 - 109 mmol/L | EXTERNAL | | | | performed at [facility], [address] | | LAB | | | | [address], | | | | | | [place] [address] | | | | + + + + + + | CO2 | 22 (L)Comment: Testing | 23 - 32 mmol/L | EXTERNAL | | | | performed at [facility], [address] | | LAB | | | | [address], | | | | | | [place] [address] | | | | + + + + + + | Anion Gap | 14Comment: Testing | 5 - 20 mmol/L | EXTERNAL | | | | performed at [facility], [address] | | LAB | | | | [address], | | | | | | [place] [address] | | | | + + + + + + | Glucose, | 392 (H)Comment: Testing | 65 - 99 mg/dL | EXTERNAL | | | Fasting | performed at [facility], [address] | | LAB | | | | [address], | | | | | | [place] [address] | | | | + + + + + + | BUN | 12Comment: Testing | 8 - 25 mg/dL | EXTERNAL | | | | performed at [facility], [address] | | LAB | | | | [address], | | | | | | [place] [address] | | | | + + + + + + | Creatinine | 1.0Comment: Testing | 0.70 - 1.30 | EXTERNAL | | | | performed at [facility], [address] | mg/dL | LAB | | | | [address], | | | | | | [place] [address] | | | | + + + + + + | BUN/Creatin | 12Comment: Testing | | EXTERNAL | | | ine Ratio | performed at [facility], [address] | | LAB | | | | [address], | | | | | | [place] [address] | | | | + + + + + + | Calcium | 7.6 (L)Comment: Testing | 8.5 - 10.5 | EXTERNAL | | | | performed at [facility], [address] | mg/dL | LAB | | | | [address], | | | | | | [place] [address] | | | | + + + + + + | Protein, | 6.4Comment: Testing | 6.3 - 8.2 g/dL | EXTERNAL | | | Total | performed at [facility], [address] | | LAB | | | | [address], | | | | | | [place] [address] | | | | + + + + + + | Albumin | 2.2 (L)Comment: Testing | 3.6 - 5.0 g/dL | EXTERNAL | | | | performed at [facility], [address] | | LAB | | | | [address], | | | | | | [place] [address] | | | | + + + + + + | Globulin | 4.2Comment: Testing | 1.3 - 4.9 g/dL | EXTERNAL | | | | performed at [facility], [address] | | LAB | | | | [address], | | | | | | [place] [address] | | | | + + + + + + | A/G Ratio | 0.5 (L)Comment: Testing | 1.0 - 2.4 | EXTERNAL | | | | performed at [facility], [address] | | LAB | | | | [address], | | | | | | [place] [id number] | | | | + + + + + + | Bilirubin | 0.6Comment: Testing | 0.1 - 1.5 mg/dL | EXTERNAL | | | Total | performed at [facility], [address] | | LAB | | | | [address], | | | | | | [place] [id number] | | | | + + + + + + | ALP, | 182 (H)Comment: Testing | 35 - 115 U/L | EXTERNAL | | | External | performed at [facility], [address] | | LAB | | | | [address], | | | | | | [place] [id number] | | | | + + + + + + | AST | 9 (L)Comment: Testing | 10 - 45 U/L | EXTERNAL | | | | performed at [facility], [address] | | LAB | | | | [address], | | | | | | [place] [address] | | | | + + + + + + | ALT | 16Comment: Testing | 10 - 65 U/L | EXTERNAL | | | | performed at [facility], [address] | | LAB | | | | [address], | | | | | | [place] [address] | | | | + + + [...] | | | | | | at [facility], [address] | | | | | | [address], | | | | | | [place] [address] | | | | + + + [...] | | Fingerstick | performed at [facility];[address] | | LAB | | | | [address];[place], [place] | | | | | | [address] | | | | + + + [...] LAB | | Testing performed at [facility];[address] [place] [address];[place] [address] MRSA PCR | | | POSITIVE for MRSA by PCRAbnormal | | | Testing performed at [address];[place] [address] | | + + + + +---------+ [...] | | Fingerstick | performed at [facility];8 | | LAB | | | | [address];[place] | | | | | | [address] | | | | + + + [...] | | | | performed at [facility];[address] | mmol/L | LAB | | | | [address];[place] | | | | | | [address] | | | | + + + + + + | K | 4.0Comment: Testing | 3.5 - 4.9 | EXTERNAL | | | | performed at [facility];[address] | mmol/L | LAB | | | | [address];[place] | | | | | | [address] | | | | + + + + + + | Cl | 104Comment: Testing | 99 - 109 mmol/L | EXTERNAL | | | | performed at [facility];[address] | | LAB | | | | [address];[place] | | | | | | [address] | | | | + + + + + + | CO2 | 21 (L)Comment: Testing | 23 - 32 mmol/L | EXTERNAL | | | | performed at [facility];[address] | | LAB | | | | [address];[place] | | | | | | [address] | | | | + + + + + + | Anion Gap | 13Comment: Testing | 5 - 20 mmol/L | EXTERNAL | | | | performed at [facility];[address] | | LAB | | | | [address];[place] | | | | | | [address] | | | | + + + + + + | Glucose, | 254 (H)Comment: Testing | 65 - 99 mg/dL | EXTERNAL | | | Fasting | performed at [facility];[address] | | LAB | | | | [address];[place] | | | | | | [address] | | | | + + + + + + | BUN | 12Comment: Testing | 8 - 25 mg/dL | EXTERNAL | | | | performed at [facility];[address] | | LAB | | | | [address];[place] | | | | | | [address] | | | | + + + + + + | Creatinine | 0.95Comment: Testing | 0.70 - 1.30 | EXTERNAL | | | | performed at [facility];[address] | mg/dL | LAB | | | | [address];[place] | | | | | | [address] | | | | + + + + + + | BUN/Creatin | 13Comment: Testing | | EXTERNAL | | | ine Ratio | performed at [facility];[address] | | LAB | | | | [address];[place] | | | | | | [address] | | | | + + + + + + | Calcium | 6.9 (L)Comment: Testing | 8.5 - 10.5 | EXTERNAL | | | | performed at [facility];888 | mg/dL | LAB | | | | [address];[place] | | | | | | [address] | | | | + + + + + + | Protein, | 6.3Comment: Testing | 6.3 - 8.2 g/dL | EXTERNAL | | | Total | performed at [facility];[address] | | LAB | | | | [address];[place] | | | | | | [address] | | | | + + + + + + | Albumin | 2.1 (L)Comment: Testing | 3.6 - 5.0 g/dL | EXTERNAL | | | | performed at [facility];[address] | | LAB | | | | [address];[place] | | | | | | [address] | | | | + + + + + + | Globulin | 4.2Comment: Testing | 1.3 - 4.9 g/dL | EXTERNAL | | | | performed at [facility];[address] | | LAB | | | | [address];[place] | | | | | | [address] | | | | + + + + + + | A/G Ratio | 0.5 (L)Comment: Testing | 1.0 - 2.4 | EXTERNAL | | | | performed at [facility];[address] | | LAB | | | | [address];[place] | | | | | | [address] | | | | + + + + + + | Bilirubin | 0.4Comment: Testing | 0.1 - 1.5 mg/dL | EXTERNAL | | | Total | performed at [facility];[address] | | LAB | | | | [address];[place] | | | | | | [address] | | | | + + + + + + | ALP, | 181 (H)Comment: Testing | 35 - 115 U/L | EXTERNAL | | | External | performed at [facility];[address] | | LAB | | | | [address];[place] | | | | | | [address] | | | | + + + + + + | AST | 10Comment: Testing | 10 - 45 U/L | EXTERNAL | | | | performed at [facility];[address] | | LAB | | | | [address];[place] | | | | | | [address] | | | | + + + + + + | ALT | 14Comment: Testing | 10 - 65 U/L | EXTERNAL | | | | performed at [facility];[address] | | LAB | | | | [address];[place] | | | | | | [id number] | | | | + + [...] | | | | | at [facility];[address];[place] [id number] | | | | + + [...] 9:30AM Referring Provider Line: | | | [phone] ID: [id number] | | + + + [...] | | 2016 9:30AM Referring Provider Line: [phone] ID: [id number] | + + POC Glucose [...] | | Fingerstick | performed at [facility];[address] | | LAB | | | | [address];[place], [place] | | | | | | [address] | | | | + + + [...] | | | | performed at [facility];[address] | mmol/L | LAB | | | | [address];[place], [place] | | | | | | [address] | | | | + + + [...] | | Blood | performed at [facility];[address] | | LAB | | | | [address];[place], [place] | | | | | | [address] | | | | + + + [...] | | | | performed at [facility] | | LAB | | | | [address];[place] | | | | | | [address] | | | | + + [...] | LAB | | | | [facility];[address];[place] [address] | | | | + + + + + + | RED CELL | 4.20Comment: Testing | 4.20 - 5.70 | EXTERNAL | | | COUNT | performed at [facility];[address] | M/uL | LAB | | | | [address];[place] | | | | | | [address] | | | | + + + + + + | Hgb | 12.4 (L)Comment: Testing | 13.2 - 17.0 | EXTERNAL | | | | performed at [facility];888 | g/dL | LAB | | | | [address];[place] | | | | | | [address] | | | | + + + + + + | Hematocrit, | 36.3 (L)Comment: Testing | 39.0 - 50.0 % | EXTERNAL | | | POC | performed at [facility];[address] | | LAB | | | | [address];[place] | | | | | | [address] | | | | + + + + + + | MCV | 86.5Comment: Testing | 80.0 - 100.0 fl | EXTERNAL | | | | performed at [facility];[address] | | LAB | | | | [address];[place] | | | | | | [address] | | | | + + + + + + | MCH | 29.4Comment: Testing | 27.0 - 34.0 pg | EXTERNAL | | | | performed at [facility];[address] | | LAB | | | | [address];[place] | | | | | | [address] | | | | + + + + + + | MCHC | 34.0Comment: Testing | 32.0 - 35.5 | EXTERNAL | | | | performed at [facility];888 | g/dL | LAB | | | | [address];[place] | | | | | | [address] | | | | + + + + + + | RDW-CV | 42.9Comment: Testing | 37 - 53 fl | EXTERNAL | | | | performed at [facility];[address] | | LAB | | | | [address];[place] | | | | | | [address] | | | | + + + + + + | Platelet | 258Comment: Testing | 150 - 400 K/uL | EXTERNAL | | | Count | performed at [facility];[address] | | LAB | | | Plasma | [address];[place] | | | | | | [address] | | | | + + + + + + | MPV | 8.3Comment: Testing | fl | EXTERNAL | | | | performed at [facility];[address] | | LAB | | | | [address];[place] | | | | | | [address] | | | | + + + + + + | Differentia | AUTOMATEDComment: | | EXTERNAL | | | l Type | Testing performed at | | LAB | | | | [facility];[address];[place] [address] | | | | + + + + + + | % Segmented | 87.43Comment: Testing | % | EXTERNAL | | | | performed at [facility];[address] | | LAB | | | Neutrophils | [address];[place] | | | | | | [address] | | | | + + + + + + | % | 5.56Comment: Testing | % | EXTERNAL | | | Lymphocytes | performed at [facility];[address] | | LAB | | | | [address];[place] | | | | | | [address] | | | | + + + + + + | % Monocytes | 4.36Comment: Testing | % | EXTERNAL | | | | performed at [facility];[address] | | LAB | | | | [address];[place] | | | | | | [address] | | | | + + + + + + | % | 1.84Comment: Testing | % | EXTERNAL | | | Eosinophils | performed at [facility];[address] | | LAB | | | | [address];[place] | | | | | | [address] | | | | + + + + + + | % Basophils | 0.81Comment: Testing | % | EXTERNAL | | | | performed at [facility];[address] | | LAB | | | | [address];[place] | | | | | | [address] | | | | + + + + + + | Absolute | 17.02 (H)Comment: | 1.90 - 7.40 | EXTERNAL | | | Segmented | Testing performed at | K/uL | LAB | | | Neutrophils | [facility];[address];[place] [address] | | | | + + + + + + | Absolute | 1.08Comment: Testing | 1.00 - 3.90 | EXTERNAL | | | Lymphocytes | performed at [facility];[address] | K/uL | LAB | | | | [address];[place] | | | | | | [address] | | | | + + + + + + | Absolute | 0.85 (H)Comment: Testing | 0.00 - 0.80 | EXTERNAL | | | Monocytes | performed at [facility];[address] | K/uL | LAB | | | | [address];[place] | | | | | | [address] | | | | + + + + + + | Absolute | 0.36Comment: Testing | 0.00 - 0.50 | EXTERNAL | | | Eosinophils | performed at [facility];[address] | K/uL | LAB | | | | [address];[place] | | | | | | [address] | | | | + + + + + + | Absolute | 0.16 (H)Comment: Testing | 0.00 - 0.10 | EXTERNAL | | | Basophils | performed at [facility];[address] | K/uL | LAB | | | | [address];[place] | | | | | | [address] | | | | + + + + + + | RBC | RBC AND PLT MORPHOLOGY | | EXTERNAL | | | Morphology | APPEAR NORMALComment: | | LAB | | | | Testing performed at | | | | | | [facility];[address];[place] [address] | | | | + + + + + + | Platelet | ADEQUATEComment: Testing | | EXTERNAL | | | Estimate | performed at [facility];[address] | | LAB | | | | [address];[place] | | | | | | [address] | | | | + + + + + + | Differentia | SLIDE SCANNED, AGREES | | EXTERNAL | | | l Comments | WITH AUTOMATED | | LAB | | | | RESULTS.Comment: Testing | | | | | | performed at [facility];[address] | | | | | | [address];[place], [place] | | | | | | [address] | | | | + + + [...] | | | | performed at [facility] | | LAB | | | | [address];[place], [place] | | | | | | [address] | | | | + + + [...] | | | | performed at [facility];[address] | mmol/L | LAB | | | | [address];[place] | | | | | | [address] | | | | + + + + + + | K | 5.1 (H)Comment: MODERATE | 3.5 - 4.9 | EXTERNAL | | | | HEMOLYSISTesting | mmol/L | LAB | | | | performed at [facility];[address] | | | | | | [address];[place] | | | | | | [address] | | | | + + + + + + | Cl | 93 (L)Comment: Testing | 99 - 109 mmol/L | EXTERNAL | | | | performed at [facility];[address] | | LAB | | | | [address];[place] | | | | | | [address] | | | | + + + + + + | CO2 | 23Comment: Testing | 23 - 32 mmol/L | EXTERNAL | | | | performed at [facility];[address] | | LAB | | | | [address];[place] | | | | | | [address] | | | | + + + + + + | Anion Gap | 14Comment: Testing | 5 - 20 mmol/L | EXTERNAL | | | | performed at [facility];[address] | | LAB | | | | [address];[place] | | | | | | [address] | | | | + + + + + + | Glucose, | 635 (HH)Comment: CALLED | 65 - 99 mg/dL | EXTERNAL | | | Fasting | DR LING COUCH | | LAB | | | | AT 2216 BY RHREAD BACK | | | | | | RESULTS VERIFIEDTesting | | | | | | performed at [facility];[address] | | | | | | [address];[place] | | | | | | [address] | | | | + + + + + + | BUN | 13Comment: Testing | 8 - 25 mg/dL | EXTERNAL | | | | performed at [facility];[address] | | LAB | | | | [address];[place] | | | | | | [address] | | | | + + + + + + | Creatinine | 1.4 (H)Comment: Testing | 0.70 - 1.30 | EXTERNAL | | | | performed at [facility];888 | mg/dL | LAB | | | | [address];[place] | | | | | | [address] | | | | + + + + + + | BUN/Creatin | 10Comment: Testing | | EXTERNAL | | | ine Ratio | performed at [facility];[address] | | LAB | | | | [address];[place] | | | | | | [address] | | | | + + + + + + | Calcium | 7.9 (L)Comment: Testing | 8.5 - 10.5 | EXTERNAL | | | | performed at [facility];888 | mg/dL | LAB | | | | [address];[place] | | | | | | [address] | | | | + + + + + + | Protein, | 7.7Comment: Testing | 6.3 - 8.2 g/dL | EXTERNAL | | | Total | performed at [facility];[address] | | LAB | | | | [address];[place] | | | | | | [address] | | | | + + + + + + | Albumin | 2.6 (L)Comment: Testing | 3.6 - 5.0 g/dL | EXTERNAL | | | | performed at [facility];[address] | | LAB | | | | [address];[place] | | | | | | [address] | | | | + + + + + + | Globulin | 5.1 (H)Comment: Testing | 1.3 - 4.9 g/dL | EXTERNAL | | | | performed at [facility];[address] | | LAB | | | | [address];[place] | | | | | | [address] | | | | + + + + + + | A/G Ratio | 0.5 (L)Comment: Testing | 1.0 - 2.4 | EXTERNAL | | | | performed at [facility];[address] | | LAB | | | | [address];[place] | | | | | | [address] | | | | + + + + + + | Bilirubin | 0.6Comment: Testing | 0.1 - 1.5 mg/dL | EXTERNAL | | | Total | performed at [facility];[address] | | LAB | | | | [address];[place] | | | | | | [address] | | | | + + + + + + | ALP, | 259 (H)Comment: Testing | 35 - 115 U/L | EXTERNAL | | | External | performed at [facility];[address] | | LAB | | | | [address];[place] | | | | | | [address] | | | | + + + + + + | AST | 17Comment: MODERATE | 10 - 45 U/L | EXTERNAL | | | | HEMOLYSISTesting | | LAB | | | | performed at [facility];[address] | | | | | | [address];[place] | | | | | | [address] | | | | + + + + + + | ALT | 17Comment: Testing | 10 - 65 U/L | EXTERNAL | | | | performed at [facility];[address] | | LAB | | | | [address];[place] | | | | | | [address] | | | | + + + [...] | | | | | at [facility];[address] [facility] [[email or web address] | | | | | | [facility];[place] [address] | | | | + + + [...] 2 diabetes mellitus with hyperglycemia, unspecified 

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
--- OUTSIDE RECORDS SUMMARY | ~2019-10-10 | XMS | Encounter Summary ---
Demographics + + + | Address | [address] | | | [place] [address] | + + + | Home Phone [...] Providers + +------+ + | Care Order Tracer Name | Role | Phone | + [...] diarrhea | [address] [place], | | | | | IgG Gliadin | [place], [place] | [place] [address] | | | | | antibody | [address] [place] | [place], | | | | | positive | [place] | [place] [address] | | | | | Alcohol | [address] | Phone: | | | | | abuse | Phone: | [phone] | | | | | Procedures | [phone] | Fax: | | | | | [place] | Fax: | [phone] | | | | | COLONOSCOPY | [phone] | | | | | | FLX DX | | | | | | | W/COLLJ SPEC | | | | | | | WHEN PFRMD | | | | | | | [place] | | | | | | | COLONOSCOPY | | | | | | | W/BIOPSY | | | | | | | SINGLE/MULTI | | | | | | | PLE GA | | | | | | | COLSC FLX | | | | | | | W/RMVL OF | | | | | | | TUMOR POLYP | | | | | | | LESION SNARE | | | | | | | TQ GA | | | | | | | [...] 2014 | | GASTROENTEROLOGY | [address], [place] | (procedure ) | | | | [address] [place] | [address] [place], [place] | | | | | [address] [place], [place] | [address] | | | | | [address] | | | | | | [phone] | | | +--------+ + + + [...]
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
[2019-10-12] MEDS ORDERED: NORCO 5-325 TA1 EACH PO (03:46)
[2019-10-12] MEDS ORDERED: ZITHROMAX250 MG PO (03:46)
== END 2019-10-10 18:12 | disposition home or self-care (01) ==
LOC: ED 16:20
DX: Z48.00 Encounter for change or removal of nonsurgical wound dressing (principal); E11.9 Type 2 diabetes mellitus without complications; I10 Essential (primary) hypertension; Z88.0 Allergy status to penicillin; Z79.82 Long term (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 of aspirin
CPT/HCPCS: 99283

== ENCOUNTER 2019-10-12 03:20 | Emergency (ER) | payer OTHER ==
[~2019-10-12] VITALS: Ht 177.8 cm; Wt 74.8 kg
== END 2019-10-12 05:09 | disposition home or self-care (01) ==
LOC: ED 03:20
PROC: 093K7ZZ Control Bleeding in Nasal Mucosa and Soft Tissue, Via Natural or Artificial Opening (ICD-10-PCS; principal; 2019-10-12)
DX: R04.0 Epistaxis (principal); E11.9 Type 2 diabetes mellitus without complications; I10 Essential (primary) hypertension; Z88.0 Allergy status to penicillin
CPT/HCPCS: 30901; 99283-25

== ENCOUNTER 2019-10-30 18:48 | Emergency (ER) | payer OTHER ==
[~2019-10-30] VITALS: Ht 177.8 cm; Wt 61.2 kg
[~2019-10-30 18:48] MED LIST changes: +NORCO 5-325 TA1 EACH PO; +ZITHROMAX250 MG PO
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
[2019-10-30] MEDS ORDERED: IBUPROFEN200 M1 PO (19:07)
== END 2019-10-30 19:40 | disposition left against medical advice (07) ==
LOC: ED 18:48
DX: Z53.21 Procedure and treatment not carried out due to patient leaving prior to being seen by health care provider (principal)

== ENCOUNTER 2020-03-27 14:30 | Emergency (ER) | payer OTHER ==
[~2020-03-27] VITALS: Ht 177.8 cm; Wt 59.0 kg
--- OUTSIDE RECORDS SUMMARY | ~2020-03-27 | XMS | Encounter Summary ---
Demographics + + + | Address | [address] | | | [place] [address] | + + + | Home Phone | | + + + | Preferred Language | Unknown | + + + | Marital Status | Single | + + + | Evangelical Affiliation | [id number] | + + + | Race | Unknown | + + + | Ethnic Group | Unknown | + + + Author + + + | Author | [facility] | | | and [place] | + + + | Organization | [facility] | | [...] Team Providers + +------+ + | Care Solar Fabrication Technician Name | Role | Phone | + +------+ + | Estrella Light PA-C | PCP | | + +------+ + Reason for Visit Auth/Cert +--------+--------+ + + + + | Status | Reason | Specialty | Diagnoses / | Referred By | Referred To | | | | | Procedures | Contact | Contact | +--------+--------+ + + + + | | | | Diagnoses | | | | | | | Septic | | | | | | | Arthritis | | | +--------+--------+ + + + + Encounter Details +--------+ + + + + | Date | Type | Department | Care Team | Description | +--------+ + + + + | 10/31/ | Hospital | [facility] | Chavo Butler MD | Neck pain; Sepsis, | | 2019 - | Encounter | [facility] | [address] | due to unspecified | | | | CARE FLOOR [address] | [place] [address] | organism, | | 11/28/ | | [address] | [phone] | unspecified whether | | 2020 | | [place], [place] | | acute organ | | | | [address] | Melissa Martin S, | dysfunction present | | | | [phone] | [address] | ([facility]); Myositis of | | | | | [place] [address] | other site, | | | | | [phone] | unspecified myositis | | | | | | type; MRSA | | | | | Eve Parkinson MD | colonization; | | | | | [address] | History of | | | | | [place] [address] | penicillin allergy; | | | | | [phone] | S/P BKA (below knee | | | | | | amputation) | | | | | Shukri Crouch MD | unilateral, left | | | | | [address] | ([facility]); Ulcer of left | | | | | [place] [address] | lower extremity, | | | | | [phone] | unspecified ulcer | | | | | | stage ([facility]); Acute | | | | | Jermaine Urias MD | encephalopathy; | | | | | [address] | Gram-positive | | | | | [place] [address] | bacteremia | | | | | [phone] | | | | | | | | | | | | Tanna Rahman MD [address] | | | | | | [facility] | | | | | | [place] [address] | | | | | | [phone] | | | | | | | | +--------+ + + + [...] + + + | Blood Pressure | 121/86 | 11/28/2019 12:11 PM | | | | | PST | | + + + + + | Pulse | 77 | 11/28/2019 12:11 PM | | | | | PST | | + + + + + | Temperature | 36.7 C (98 F) | 11/28/2019 12:11 PM | | | | | PST | | + + + + + | Respiratory Rate | 20 | 11/28/2019 12:11 PM | | | | | PST | | + + + + + | Oxygen Saturation | 100% | 11/28/2019 12:11 PM | | | | | PST | | + + + + + | Inhaled Oxygen | - | - | | | Concentration | | | | + + + + + | Weight | 68.1 kg (150 lb 3.2 | 11/17/2019 5:00 AM | | | | oz) | PST | | + + + + + | Height | 175.3 cm (5' 9") | 10/31/2019 4:37 PM | | | | | PST | | + + + + + | Body Mass Index | 22.18 | 10/31/2019 4:37 PM | | | | | PST | | + + + + + documented in this encounter Discharge Summaries Isaac Thompson RN - 11/28/2019 1:16 PM PSTDaalejandro has finished his final dose of IV Vancom ycin. Pt given d/c instructions with no concerns. Family to arrange transport. Isaac Thompson RN, 11/28/2019 Melissa Madrid M D - 11/28/2019 9:02 AM PST Patient: Kuldip Smith : 1965 Date of Admission: 10/31/2019 Date of Discharge: 11/28/2019 Treatment Team: Isaac Orozco MD Discharging Provider: Melissa Martin MD Discharge Diagnoses: Principal Problem: Sepsis Active Problems: Essential hypertension Diabetes Neck pain Acute encephalopathy Streptococcal bacteremia Facet arthritis of cervical region Resolved Problems: * No resolved hospital problems. * Procedures Performed: Chief Complaint: No chief complaint on file. Hospital Course: The patient is a 54 y.o. male with significant past medical history of hypertension, diabet es mellitus type 2 currently diet controlled, history of peripheral vascular disease status post left BKA who recently had a nasal bleed s/p packing treated with steroid and antibiotic s went to [facility] with high-grade fever, chills, intractable neck pain, he wa s found to have high-grade fever and leukocytosis with white count 30,000, CT scan of the ne ck was done which was concerning for infectious process. Patient was treated for Sepsis/streptococcal bacteremia/cervical spine facet arthritis, lik angel septic, there is no evidence of epidural abscess or discitis. No evidence of bone invol vement. Infectious disease consultationDr. [place] recommended toContinue IV vancomycin until 11/28. He completed 4 weeks of antibiotics, Renal function was monitored and stable He was d/c home after antibiotic completion.. Patient couldn't be discharged with the PICC line due to history of illicit drug use. His insulin was adjusted to Lantus 15 units daily with low dose sliding scale, Lisinopril d ose was adjusted to 10 mg daily. Neck pain improved and he will follow with PCP in 1 week and recheck renal function. Outstanding Issues: Discharge Exam and Data: Vital Signs: BP 121/86 | Pulse 77 | Temp 36.7 C (98 F) (Oral) | Resp 20 | Ht 1.753 m (5' 9") | Wt 68.1 kg (150 lb 3.2 oz) | SpO2 100% | BMI 22.18 kg/m Physical Exam Recent Labs Recent Labs Lab 11/27/19 0830 WBC 5.21 HGB 7.6* HCT 24.7* PLT 376 Recent Labs Lab 11/27/19 0830 NA 140 K 4.4 CL 113* CO2 23 BUN 19 CALCIUM 8.6 No results for input(s): INR in the last 168 hours. Recent Radiology Results No results found. Discharge Information: Follow up: Current active diet order is: Diet Diet consistent carb; 60 gm CARB/Meal; Effective Now Estrella Light PA-C [address] [address] In 1 week Basic metabolic profile to follow renal function in on week prior to appointment. Discharge Medications New Medications Details insulin lispro 100 units/mL injection (pen) Inject 1-6 Units under the skin 3 times daily (before meals). --- BG < 150: none BG 150-200: 1 unit BG 201-250: 2 units BG 251-300: 3 units BG 301-350: 4 units BG 351-400: 5 units BG > 400: 6 units and call provider aka: MELIA REYNA Changed Medications Details insulin glargine 100 units/mL injection (pen) Inject 15 Units under the skin every evening. What changed: how much to take when to take this Another medication with the same name was removed. Continue taking this medication, and follow the directions you see here. aka: LANTUS SOLOSTAR lisinopril 10 mg tablet Take 1 tablet by mouth Daily. What changed: medication strength how much to take Another medication with the same name was removed. Continue taking this medication, and follow the directions you see here. aka: PRINIVIL, ZESTRIL Unchanged Medications Details CEROVITE SENIOR Tabs Take 1 tablet by mouth Daily. HYDROcodone-acetaminophen 5-325 mg per tablet Take 1 tablet by mouth every 6 hours as needed. aka: NORCO loperamide 2 mg capsule Take 2 mg by mouth 4 (four) times daily as needed for Diarrhea. aka: IMODIUM sildenafil 50 MG tablet Take 1 tablet by mouth as needed for Erectile Dysfunction. aka: VIAGRA Discontinued Medications insulin aspart 100 units/mL injection aka: novoLOG . Disposition: home Condition: Stable Code Status: Full Code Discharge took 35 minutes, to include final examination, discussion of admission, and prepa ration of prescriptions, instructions for on-going care, follow-up and documentation of disc harge summary. Melissa Martin MD 1:09 PM 11/28/2019 documented in thi s encounter Medications at Time of Discharge + + + +---------+ + + | Medication | Sig | Dispensed | Refills | Start | End Date | | | | | | Date | | + + + +---------+ + + | | Take 1 tablet by | 30 | 0 | 10/13/19 | | | HYDROcodone-acetamin | mouth every 6 hours | tablet | | 20 | | | ophen (NORCO) 5-325 | as needed. | | | | | | mg per tablet | | | | | | + + + +---------+ + + | insulin glargine | Inject 15 Units | 1 pen | 3 | 11/28/19 | | | (LANTUS SOLOSTAR) | under the skin every | | | 20 | | | 100 units/mL | evening. | | | | | | injection (pen) | | | | | | + + + +---------+ + + | insulin lispro | Inject 1-6 Units | 15 mL | 0 | 11/28/19 | | | (HUMALOG KWIKPEN) | under the skin 3 | | | 20 | | | 100 units/mL | times daily (before | | | | | | injection (pen) | meals). ---BG < 150: | | | | | | | noneBG 150-200: 1 | | | | | | | unitBG 201-250: 2 | | | | | | | unitsBG 251-300: 3 | | | | | | | unitsBG 301-350: 4 | | | | | | | unitsBG 351-400: 5 | | | | | | | units BG > 400: 6 | | | | | | | units and call | | | | | | | provider | | | | | + + + +---------+ + + | lisinopril | Take 1 tablet by | 30 | 3 | 11/28/19 | | | (PRINIVIL, ZESTRIL) | mouth Daily. | tablet | | 20 | | | 10 mg tablet | | | | | | + + + +---------+ + + | loperamide | Take 2 mg by mouth 4 | | 0 | | | | (IMODIUM) 2 mg | (four) times daily | | | | | | capsule | as needed for | | | | | | | Diarrhea. | | | | | + + [...] documented as of this encounter Progress Notes Brandi Dumont RN - 11/28/2019 5:26 AM PSTPt VSS. No significant events overnight. Chart review complete. Melissa Madrid MD - 11/27/2019 2:38 PM PSTFormatting of this note might be differ ent from the original. [facility] Service: Hospitalist Progress Note Pt: Kuldip Smith AGE/SEX: 54 y.o. male ROOM: [address] [place] [address] : 1965 PCP: Estrella Light PA-C ADMIT DATE: 10/31/2019 TODAY'S DATE: 11/27/2019 Hospital Day/Hospital Course: LOS: 27 days SUBJECTIVE: Patient seen and examine. Patient denies pain or shortness of breath, his neck pain is impr oving Scheduled Medications: adult multivitamin with minerals/iron 1 tablet Oral Daily enoxaparin 40 mg Subcutaneous Daily famotidine 20 mg Oral BID insulin glargine 15 Units Subcutaneous QPM insulin lispro 0-6 Units Subcutaneous 4x Daily AC and HS lisinopril 10 mg Oral Daily vancomycin 1,250 mg Intravenous Q24H vancomycin per pharmacy Other Pharmacy Consult Continuous Infusions dextrose 10% PRN Medications acetaminophen, Hypoglycemia Management AND POCT Glucose AND dextrose AND dextro se 10%, HYDROcodone-acetaminophen, ondansetron Allergy: Allergies Allergen Reactions Penicillins Rash and Hives OBJECTIVE: Vitals: Temp: [36.7 C (98 F)-37 C (98.6 F)] 36.8 C (98.3 F) Pulse: [75-91] 79 Resp: [18] 18 BP: (110-139)/(61-80) 139/80 I&O Detailed Table: Intake/Output Summary (Last 24 hours) at 11/27/2019 1438 Last data filed at 11/26/2019 1755 Gross per 24 hour Intake 500 ml Output Net 500 ml No data found. Physical Examination: Constitutional: Alert and oriented to person, place, and time. HEENT: Neck supple, no JVD, non icteric sclera. Cardiovascular: Normal rate, regular rhythm, normal heart sounds with S1 and S2, and intact distal pulses. Exam reveals no gallop and no friction rub. No murmur heard. Pulmonary/Chest: Effort normal and breath sounds normal. No stridor. No respiratory distres s. no wheezes. no rales. exhibits no tenderness. Abdominal: Soft. Bowel sounds are normal. exhibits no distension and no mass. There is no t enderness. There is no rebound and no guarding. Extremeties/Musculoskeletal: Normal range of motion.exhibits no tenderness. exhibits no ed yg. Normal equal peripheral pulses. Neurological: Alert and oriented to person, place, and time. No cranial nerve deficit. E xhibits normal muscle tone. No gross motor deficits. Skin: Skin is warm. No pallor. Patient has normal capillary refill, no mottling. Psychiatric: Has a normal mood and affect. Behavior is normal. Judgment normal. LABS: Recent Labs 11/27/19 0830 11/26/19 0602 WBC 5.21 5.74 HGB 7.6* 7.6* HCT 24.7* 24.6* PLT 376 369 MCV 78.7* 78.6* Recent Labs Lab 11/27/19 0830 11/26/19 0602 11/25/19 0502 11/23/19 0812 11/22/19 0818 NA 140 140 -- 140 138 K 4.4 4.0 -- 4.3 4.5 CL 113* 114* -- 112* 111* CO2 23 20* -- 25 23 ANIONGAP 8 10 -- 7 9 BUN 19 22 -- 21 16 CREA 1.6* 1.7* 1.62* 1.5* 1.6* CALCIUM 8.6 8.5 -- 8.8 8.6 ALBUMIN -- 2.6* -- 2.6* 2.5* PHOS -- 4.4 -- 3.3 3.1 Recent Labs 11/27/19 0830 11/26/19 0602 GLU 111* 138* No results for input(s): TROPONIN, BNP in the last 72 hours. No results for input(s): PROTIME, INR, PTT in the last 168 hours. No results for input(s): IRON, TIBC, PCTSAT, FERRITIN, TSH, [id number], FOLATE in the last 168 hours. No results for input(s): LACTATE, PROCALCITONI, CRP, ESR in the last 168 hours. No results for input(s): AMYLASE, LIPASE in the last 168 hours. No results for input(s): TRIG, CHOL, HDL, LDL in the last 168 hours. No results for input(s): AMMONIA in the last 168 hours. Mri Cervical Spine W Wo Contrast Result Date: 10/31/2019 MRI CERVICAL SPINE WITHOUT AND WITH CONTRAST CLINICAL INFORMATION: Neck pain, bone destruct ion on xray. rule out abscess or osteo COMPARISON: CT neck 10/31/2019. PROCEDURE: Sagittal T2 , axial T2, sagittal T1, axial T1, sagittal STIR, axial T1 enhanced, and sagittal T1 enhance d sequences. Contrast: 7 ML GADAVIST IV. FINDINGS: Motion artifact on the sagittal T2 and ST IR images and axial images limits evaluation of the cervical cord. Alignment: None alignment is unchanged with mild anterolisthesis of C4-C5 and mild retrolisthesis C5-C6. Vertebrae an d vertebral marrow signal: No marrow edema. No evidence of fracture. No evidence of discit is osteomyelitis. Cervicomedullary junction and cervical cord: Limited evaluation of the cer vical cord due to motion artifact on the sagittal images. No definite cord signal alteratio n identified. Cervical disc levels: Mild to moderate disc height loss C5-C6. Advance multil evel facet arthropathy which is severe on the right at C2-C3, C3-C4, and C4-C5. As seen on the previous CT at C4-C5 there is an associated facet joint effusion with widening of the fa cet joint and mild enhancement on postcontrast images. Additionally, there is edema, face e nhancement, and asymmetric enlargement throughout the right posterolateral neck musculature. No rim enhancing collection to suggest abscess formation. Combination of posterior disc pr otrusion and buckling of ligamentum flavum at C3-C4 result in moderate to severe narrowing o f the spinal canal with mild compression of the cervical cord. No definite cord signal abno rmality. Combination of a central disc protrusion and buckling of the ligamentum flavum at C4-C5 results in moderate narrowing of spinal canal with possible minimal cord compression v ersus ventral cord contouring. Mild retrolisthesis at C5-C6 mild contouring of the ventral cord. Paraspinal musculature and paravertebral soft tissues: See above 1. Advanced right-sided facet degenerative changes spanning C2 through C5. At C4-C5 there is a facet joint effusion with mild associated enhancement which could represent advanced de generative changes versus septic joint. 2. Marked edema, asymmetric enlargement, in faint en hancement involving the right posterior neck musculature which appears to be somewhat center ed around the right C4-C5 facet joint. Findings are concerning for infection/myositis but c ould potentially represent sequela of previous injury. 3. No epidural abscess, phlegmonous c hanges, or evidence of discitis osteomyelitis. 4. Advanced cervical spondylosis at C3 throug h C5. Changes are worst at C3-C4 where there is moderate to severe narrowing of the spinal canal with mild compression of the cervical cord. No definite cord signal abnormality is se en at any level but evaluation is limited due to motion artifact on the sagittal T2 and STIR images. Signed by: Steve Maria Jace Sign Date/Time: 10/31/2019 11:01 PM <NWCOMORBIDITIES> PROBLEM LIST Principal Problem: Sepsis Active Problems: Essential hypertension Diabetes Neck pain Acute encephalopathy Streptococcal bacteremia Facet arthritis of cervical region ASSESSMENT & PLAN 1. Sepsis/streptococcal bacteremia/cervical spine facet arthritis no evidence of epidural abscess or discitis. No evidence of bone involvement. Infectious disease consultation Dr. Estrada recommended toContinue IV vancomycin until 2019. Will d/c home after antibiotic completion. Patient cannot be released with the PICC line due to history of illicit drug use. 2. Hypertension continue lisinopril 3. Type 2 diabetes continue Lantus and sliding scale. 4 Acute on chronic kidney injury, will monitor while on Vancomycin 5. Anemia secondary to chronic disease. Stable will monitor 6. DVT prophylaxis Lovenox. Melissa Martin MD 11/27/2019 2:38 PM Juan Alberto Alaniz [facility] - 11/27/2019 11:21 AM PST . Vancomycin Dosing Per Pharmacy Subjective/Objective Kuldip Smith is a 54 y.o. male started on vancomycin 10/31/2019 for sepsis. Continuing v ancomycin until 11/28/2019 per ID recommendation. Patient is not a candidate for outpatient I V antibiotics therapy with placement of a PICC line due to history of IVDU. Current Vital Signs: BP 111/61 | Pulse 77 | Temp 36.7 C (98 F) (Oral) | Resp 18 | H t 1.753 m (5' 9") | Wt 68.1 kg (150 lb 3.2 oz) | SpO2 100% | BMI 22.18 kg/m Recent Labs Lab 11/27/19 0830 11/26/19 0602 11/25/19 0502 11/23/19 0812 11/22/19 1119 WBC 5.21 5.74 -- 4.71 -- VANCOTROUGH -- -- -- -- 18.7 CREA 1.6* 1.7* 1.62* 1.5* -- Estimated Creatinine Clearance: 52 mL/min (A) (based on SCr of 1.6 mg/dL (H)). Vancomycin Dosing History -patient remains on Vancomycin therapy day 28 Assessment/Plan -Renal function stable, minor decrease from 1.7 to 1.6. -Doses have been given during scheduled times -Per ID, Vanco until 11/28/2019 Will continue with current regimen of vancomycin 1250 mg IV Q24H. Plan for level: Renal function has been stable, previous vancomycin trough levels have been therapeutic on this regimen. Will continue to monitor renal function and determine time of next trough if renal function changes. Pharmacy will continue to follow and make adjustments to vancomycin therapy as indicated. Thank You, Narayan Gomes, PharmD Kingsley Alaniz RPH - 11/26/2019 2:17 PM PSTFormatting of this note might be differe nt from the original. Vancomycin Dosing Per Pharmacy Subjective/Objective Kuldip Smith is a 54 y.o. male started on vancomycin 10/31/2019 for sepsis. Continuing v ancomycin until 11/28/2019 per ID recommendation. Patient is not a candidate for outpatient I V antibiotics therapy with placement of a PICC line due to history of IVDU. Current Vital Signs: BP 113/67 | Pulse 84 | Temp 37 C (98.6 F) (Oral) | Resp 18 | H t 1.753 m (5' 9") | Wt 68.1 kg (150 lb 3.2 oz) | SpO2 99% | BMI 22.18 kg/m Recent Labs Lab 11/26/19 0602 11/25/19 0502 11/23/19 0812 11/22/19 1119 11/22/19 0818 WBC 5.74 -- 4.71 -- 4.59 VANCOTROUGH -- -- -- 18.7 -- CREA 1.7* 1.62* 1.5* -- 1.6* Estimated Creatinine Clearance: 49 mL/min (A) (based on SCr of 1.7 mg/dL (H)). Vancomycin Dosing History -patient remains on Vancomycin therapy day 27 Assessment/Plan -Renal function stable, minor rise from 1.62 to 1.7. -Per ID, Vanco until 11/28/2019 Will continue with current regimen of vancomycin 1250 mg IV Q24H. Plan for level: Renal function has been stable, previous vancomycin trough levels have been therapeutic on this regimen. Will continue to monitor renal function and determine time of next trough if renal function changes. Pharmacy will continue to follow and make adjustments to vancomycin therapy as indicated. Thank You, Narayan Gomes, PharmD Melissa Madrid MD - 11/26/2019 1:42 PM PSTFormatting of this note might be differe nt from the original. [facility] Service: Hospitalist Progress Note Pt: Kuldip Smith AGE/SEX: 54 y.o. male ROOM: 7105/7105-01 : 1965 PCP: Estrella Light PA-C ADMIT DATE: 10/31/2019 TODAY'S DATE: 11/26/2019 Hospital Day/Hospital Course: LOS: 26 days SUBJECTIVE: Patient seen and examine. Complaint of neck pain, improving, no other complains. Scheduled Medications: adult multivitamin with minerals/iron 1 tablet Oral Daily enoxaparin 40 mg Subcutaneous Daily famotidine 20 mg Oral BID insulin glargine 15 Units Subcutaneous QPM insulin lispro 0-6 Units Subcutaneous 4x Daily AC and HS lisinopril 10 mg Oral Daily vancomycin 1,250 mg Intravenous Q24H vancomycin per pharmacy Other Pharmacy Consult Continuous Infusions dextrose 10% PRN Medications acetaminophen, Hypoglycemia Management AND POCT Glucose AND dextrose AND dextro se 10%, HYDROcodone-acetaminophen, ondansetron Allergy: Allergies Allergen Reactions Penicillins Rash and Hives OBJECTIVE: Vitals: Temp: [36.8 C (98.2 F)-37.2 C (98.9 F)] 37 C (98.6 F) Pulse: [75-94] 84 Resp: [18] 18 BP: (96-141)/(57-78) 113/67 I&O Detailed Table: Intake/Output Summary (Last 24 hours) at 11/26/2019 1342 Last data filed at 11/25/2019 1755 Gross per 24 hour Intake 960 ml Output Net 960 ml No data found. Physical Examination: Constitutional: Alert and oriented to person, place, and time. HEENT: Neck supple, no JVD, non icteric sclera. Cardiovascular: Normal rate, regular rhythm, normal heart sounds with S1 and S2, and intact distal pulses. Exam reveals no gallop and no friction rub. No murmur heard. Pulmonary/Chest: Effort normal and breath sounds normal. No stridor. No respiratory distres s. no wheezes. no rales. exhibits no tenderness. Abdominal: Soft. Bowel sounds are normal. exhibits no distension and no mass. There is no t enderness. There is no rebound and no guarding. Extremeties/Musculoskeletal: Normal range of motion.exhibits no tenderness. exhibits no ed yg. Normal equal peripheral pulses. Neurological: Alert and oriented to person, place, and time. No cranial nerve deficit. E xhibits normal muscle tone. No gross motor deficits. Skin: Skin is warm. No pallor. Patient has normal capillary refill, no mottling. Psychiatric: Has a normal mood and affect. Behavior is normal. Judgment normal. LABS: Recent Labs 11/26/19 0602 WBC 5.74 HGB 7.6* HCT 24.6* PLT 369 MCV 78.6* Recent Labs Lab 11/26/19 0602 11/25/19 0502 11/23/19 0812 11/22/19 0818 NA 140 -- 140 138 K 4.0 -- 4.3 4.5 CL 114* -- 112* 111* CO2 20* -- 25 23 ANIONGAP 10 -- 7 9 BUN 22 -- 21 16 CREA 1.7* 1.62* 1.5* 1.6* CALCIUM 8.5 -- 8.8 8.6 ALBUMIN 2.6* -- 2.6* 2.5* PHOS 4.4 -- 3.3 3.1 Recent Labs 11/26/19 0602 GLU 138* No results for input(s): TROPONIN, BNP in the last 72 hours. No results for input(s): PROTIME, INR, PTT in the last 168 hours. No results for input(s): IRON, TIBC, PCTSAT, FERRITIN, TSH, [id number], FOLATE in the last 168 hours. No results for input(s): LACTATE, PROCALCITONI, CRP, ESR in the last 168 hours. No results for input(s): AMYLASE, LIPASE in the last 168 hours. No results for input(s): TRIG, CHOL, HDL, LDL in the last 168 hours. No results for input(s): AMMONIA in the last 168 hours. Mri Cervical Spine W Wo Contrast Result Date: 10/31/2019 MRI CERVICAL SPINE WITHOUT AND WITH CONTRAST CLINICAL INFORMATION: Neck pain, bone destruct ion on xray. rule out abscess or osteo COMPARISON: CT neck 10/31/2019. PROCEDURE: Sagittal T2 , axial T2, sagittal T1, axial T1, sagittal STIR, axial T1 enhanced, and sagittal T1 enhance d sequences. Contrast: 7 ML GADAVIST IV. FINDINGS: Motion artifact on the sagittal T2 and ST IR images and axial images limits evaluation of the cervical cord. Alignment: None alignment is unchanged with mild anterolisthesis of C4-C5 and mild retrolisthesis C5-C6. Vertebrae an d vertebral marrow signal: No marrow edema. No evidence of fracture. No evidence of discit is osteomyelitis. Cervicomedullary junction and cervical cord: Limited evaluation of the cer vical cord due to motion artifact on the sagittal images. No definite cord signal alteratio n identified. Cervical disc levels: Mild to moderate disc height loss C5-C6. Advance multil evel facet arthropathy which is severe on the right at C2-C3, C3-C4, and C4-C5. As seen on the previous CT at C4-C5 there is an associated facet joint effusion with widening of the fa cet joint and mild enhancement on postcontrast images. Additionally, there is edema, face e nhancement, and asymmetric enlargement throughout the right posterolateral neck musculature. No rim enhancing collection to suggest abscess formation. Combination of posterior disc pr otrusion and buckling of ligamentum flavum at C3-C4 result in moderate to severe narrowing o f the spinal canal with mild compression of the cervical cord. No definite cord signal abno rmality. Combination of a central disc protrusion and buckling of the ligamentum flavum at C4-C5 results in moderate narrowing of spinal canal with possible minimal cord compression v ersus ventral cord contouring. Mild retrolisthesis at C5-C6 mild contouring of the ventral cord. Paraspinal musculature and paravertebral soft tissues: See above 1. Advanced right-sided facet degenerative changes spanning C2 through C5. At C4-C5 there is a facet joint effusion with mild associated enhancement which could represent advanced de generative changes versus septic joint. 2. Marked edema, asymmetric enlargement, in faint en hancement involving the right posterior neck musculature which appears to be somewhat center ed around the right C4-C5 facet joint. Findings are concerning for infection/myositis but c ould potentially represent sequela of previous injury. 3. No epidural abscess, phlegmonous c hanges, or evidence of discitis osteomyelitis. 4. Advanced cervical spondylosis at C3 throug h C5. Changes are worst at C3-C4 where there is moderate to severe narrowing of the spinal canal with mild compression of the cervical cord. No definite cord signal abnormality is se en at any level but evaluation is limited due to motion artifact on the sagittal T2 and STIR images. Signed by: Steve Maria Jace Sign Date/Time: 10/31/2019 11:01 PM <NWCOMORBIDITIES> PROBLEM LIST Principal Problem: Sepsis Active Problems: Essential hypertension Diabetes Neck pain Acute encephalopathy ASSESSMENT & PLAN 1. Sepsis/streptococcal bacteremia/cervical spine facet arthritis no evidence of epidural abscess or discitis. No evidence of bone involvement. Infectious disease consultation Dr. Estrada recommended toContinue IV vancomycin until 2019. Patient cannot be released with the PICC line due to history of illicit drug use. 2. Hypertension continue lisinopril 3. Type 2 diabetes continue Lantus and sliding scale. 4 Acute on chronic kidney injury, will monitor while on Vancomycin 5. Anemia secondary to chronic disease. Stable will monitor 6. DVT prophylaxis Lovenox. Melissa Martin MD 11/26/2019 1:[address] - 11/25/2019 3:36 PM PST NUTRITION NOTE Summary Low risk follow up. Fluid/Beverage Intake Oral Fluids Amount: Fluids ad sienna. Food Intake Amount of Food: Per charting pt has been eating 100% of meals. Type of Food/Meals: Consistent CHO 60 g/meal Nutritionally Relevant Medications Multivitamin with Fe ordered. Anthropometrics No new wt to assess. Recommend weekly wts to monitor wt trend. Biochemical Data, Medical Test, and Procedures Recent Labs 11/25/19 0502 11/23/19 0812 NA -- 140 K -- 4.3 GLU -- 119* BUN -- 21 CREA 1.62* 1.5* PHOS -- 3.3 Recommendations Continue diet as ordered. Encourage po intake with protein rich foods. Monitor and follow as indicated. Nutritional Risk Required Follow Up: (L; 3/2) Marissa Hill RD 11/25/2019 3:36 PM Alyssa Lewis Phar mD - 11/25/2019 9:23 AM PST Vancomycin Dosing Per Pharmacy Subjective/Objective Kuldip Smith is a 54 y.o. male started on vancomycin 10/31/2019 for sepsis. Continuing v ancomycin until 11/28/2019 per ID recommendation. Patient is not a candidate for outpatient I V antibiotics therapy with placement of a PICC line due to history of IVDU. Current Vital Signs: BP 99/56 Comment: RN reassessment | Pulse 76 | Temp 36.9 C (98.5 F) (Oral) | Resp 18 | Ht 1.753 m (5' 9") | Wt 68.1 kg (150 lb 3.2 oz) | SpO2 98% | BMI 22.18 kg/m Recent Labs Lab 11/25/19 0502 11/23/19 0812 11/22/19 1119 11/22/19 0818 11/19/19 1049 WBC -- 4.71 -- 4.59 -- -- VANCOTROUGH -- -- 18.7 -- -- 18.8 CREA 1.62* 1.5* -- 1.6* < > 1.63* < > = values in this interval not displayed. Estimated Creatinine Clearance: 51 mL/min (A) (based on SCr of 1.62 mg/dL (H)). Vancomycin Dosing History -patient remains on Vancomycin therapy day 26 Assessment/Plan Renal unction stable. Will continue with current regimen of vancomycin 1250 mg IV Q24H. Plan for level: Renal function has been stable, previous vancomycin trough levels have been therapeutic on this regimen. Will continue to monitor renal function and determine time of next trough if renal function changes. Pharmacy will continue to follow and make adjustments to vancomycin therapy as indicated. Thank You, Alyssa Anders PharmD, [facility], 11/25/2019, 9:14 AM Tanna Sanches MD - 11/25/2019 7:38 AM PST [facility] Service:hospitalist Progress Note Hospital Day: LOS: 25 days SUBJECTIVE Patient Summary: refer to H&P and consult note for details Per " Patient Summary: 54-year-old male with history of type 2 diabetes, periphera l vascular disease, status post left BKA 2016, history of hypertension, history of recent dr sewell use (methamphetamine) who was transferred from [facility] where he presente d with fever, chills and worsening neck pain. Patient had leukocytosis. CAT scan of the ne ck was concerning for C4-C5 septic arthritis. Neurosurgery was consulted and recommended me dical management with antibiotics. Infectious disease was consulted and recommended vancomy [place] for a total of 4 weeks. Last dose 11/28/2019. Will require a safe discharge to complete IV infusion" Events Overnight: Patient seen and examined,denies CP or SOB no abdominal pain, hgb i s stable and Cr is 1.6 ,pain is controlled,stable BG overall, Addressed all questions Scheduled Medications adult multivitamin with minerals/iron 1 tablet Oral Daily enoxaparin 40 mg Subcutaneous Daily famotidine 20 mg Oral BID insulin glargine 15 Units Subcutaneous QPM insulin lispro 0-6 Units Subcutaneous 4x Daily AC and HS lisinopril 10 mg Oral Daily vancomycin 1,250 mg Intravenous Q24H vancomycin per pharmacy Other Pharmacy Consult Continuous Infusions dextrose 10% PRN Medications acetaminophen, Hypoglycemia Management AND POCT Glucose AND dextrose AND dextro se 10%, HYDROcodone-acetaminophen, ondansetron OBJECTIVE Vital Signs: BP 121/74 | Pulse 76 | Temp 36.9 C (98.5 F) (Oral) | Resp 18 | Ht 1.753 m (5' 9") | Wt 68.1 kg (150 lb 3.2 oz) | SpO2 98% | BMI 22.18 kg/m Intake/Output Summary (Last 24 hours) at 11/25/2019 1018 Last data filed at 11/25/2019 0654 Gross per 24 hour Intake 588.11 ml Output Net 588.11 ml General appearance: alert, appears stated age and cooperative. NAD Head: Normocephalic, without obvious abnormality, atraumatic Throat: lips, mucosa, and tongue normal; teeth and gums normal Neck: no adenopathy, no carotid bruit, no JVD, supple, symmetrical, trachea midline and thy roid not enlarged, symmetric, no tenderness/mass/nodules Lungs: clear to auscultation bilaterally Heart: regular rate and rhythm, S1, S2 normal, no murmur, click, rub or gallop Abdomen: soft, non-tender; bowel sounds present Extremities: Left BKA. Pulses: 2+ and symmetric Neurologic: Grossly normal AXO3 DATA BMP 140 112* 21 119* 4.3 25 1.62* CaMgPhos 8.8 1.9 3.3 LFT 15 141* 13 2.6* CBC 4.71 7.3* 412* 23.6* Coag Last labs from current encounter as of 11/25/19-10:18 No results for input(s): TROPONIN, BNP in the last 72 hours. No results for input(s): PROCALCITONI in the last 72 hours. Recent Labs 11/23/19 0812 WBC 4.71 HGB 7.3* HCT 23.6* PLT 412* Recent Labs 11/25/19 0502 11/23/19 0812 NA -- 140 K -- 4.3 CL -- 112* CO2 -- 25 BUN -- 21 CREA 1.62* 1.5* CALCIUM -- 8.8 PHOS -- 3.3 ALBUMIN -- 2.6* No results found for this or any previous visit (from the past 360 hour(s)). No results found for this or any previous visit. Results for orders placed during the hospital encounter of 10/31/19 ECHO Complete Narrative Normal LV systolic function Mild enlargement of the ascending aorta No pulmonary hypertension No obvious vegetation I have reviewed the above labs and radiology reports. PROBLEM LIST Principal Problem: Sepsis Active Problems: Essential hypertension Diabetes Neck pain Acute encephalopathy I attest that this clinical assessment using ASPEN criteria 1 is accurate for this patient and supports that as a medical diagnosis. A specific nutrition treatment plan will be imple mented as outlined in the registered dietitian's plan of care. ASSESSMENT & PLAN Sepsis/streptococcal bacteremia/cervical spine facet arthritis per report no evidence of ep idural abscess or discitis. No evidence of bone involvement. Per Dr. Estrada. Continue IV vancomycin until 11/28/2019. Patient cannot be released with the PICC line due to history of illicit drug use. Unfortunately, several [facility] rehabilitation centers denied admission. He is not a candidate for outpatient IV therapy. Hypertension continue lisinopril monitor BP and adjust as needed Type 2 diabetes continue current insulin regimen and monitor Acute on chronic kidney injury Avoid nephrotoxins and NSAID's Anemia secondary to chronic disease. CKD3 No indication for transfusion unless hgb <7 or sy mptomatic continue to monitor DVT/GI px PT/OT eval and tx and CW for discharge planning Review of H/P, imaging and labs, formulation of assessment and plan, discussion with the pa tient/family, staff, and providers. Portions of this chart may have been copied from previous notes for continuity of care purp oses. Disposition: Admitted Code Status: Full Code Tnana Rahman MD 11/25/2019 Tanna Sanches MD - 11/24/2019 8:02 AM PST [facility] Service:hospitalist Progress Note Hospital Day: LOS: 24 days SUBJECTIVE Patient Summary: refer to H&P and consult note for details Per " Patient Summary: 54-year-old male with history of type 2 diabetes, periphera l vascular disease, status post left BKA 2017, history of hypertension, history of recent dr donato use (methamphetamine) who was transferred from [facility] where he presente d with fever, chills and worsening neck pain. Patient had leukocytosis. CAT scan of the ne ck was concerning for C4-C5 septic arthritis. Neurosurgery was consulted and recommended me dical management with antibiotics. Infectious disease was consulted and recommended vancomy [place] for a total of 4 weeks. Last dose 11/28/2019. Will require a safe discharge to complete IV infusion" Events Overnight: Patient seen and examined,denies CP or SOB no abdominal pain, hgb i s stable and Cr is 1.5,pain is controlled,stable BG overall, Addressed all questions Scheduled Medications adult multivitamin with minerals/iron 1 tablet Oral Daily enoxaparin 40 mg Subcutaneous Daily famotidine 20 mg Oral BID insulin glargine 15 Units Subcutaneous QPM insulin lispro 0-6 Units Subcutaneous 4x Daily AC and HS lisinopril 10 mg Oral Daily vancomycin 1,250 mg Intravenous Q24H vancomycin per pharmacy Other Pharmacy Consult Continuous Infusions dextrose 10% PRN Medications acetaminophen, Hypoglycemia Management AND POCT Glucose AND dextrose AND dextro se 10%, HYDROcodone-acetaminophen, ondansetron OBJECTIVE Vital Signs: BP 118/57 | Pulse 85 | Temp 36.9 C (98.4 F) (Oral) | Resp 18 | Ht 1.753 m (5' 9") | Wt 68.1 kg (150 lb 3.2 oz) | SpO2 97% | BMI 22.18 kg/m Intake/Output Summary (Last 24 hours) at 11/24/2019 1130 Last data filed at 11/24/2019 0805 Gross per 24 hour Intake 500 ml Output 1000 ml Net -500 ml General appearance: alert, appears stated age and cooperative. NAD Head: Normocephalic, without obvious abnormality, atraumatic Throat: lips, mucosa, and tongue normal; teeth and gums normal Neck: no adenopathy, no carotid bruit, no JVD, supple, symmetrical, trachea midline and thy roid not enlarged, symmetric, no tenderness/mass/nodules Lungs: clear to auscultation bilaterally Heart: regular rate and rhythm, S1, S2 normal, no murmur, click, rub or gallop Abdomen: soft, non-tender; bowel sounds present Extremities: Left BKA. Pulses: 2+ and symmetric Neurologic: Grossly normal AXO3 DATA BMP 140 112* 21 119* 4.3 25 1.5* CaMgPhos 8.8 1.9 3.3 LFT 15 141* 13 2.6* CBC 4.71 7.3* 412* 23.6* Coag Last labs from current encounter as of 11/24/19-11:30 No results for input(s): TROPONIN, BNP in the last 72 hours. No results for input(s): PROCALCITONI in the last 72 hours. Recent Labs 11/23/19 0812 11/22/19 0818 WBC 4.71 4.59 HGB 7.3* 7.3* HCT 23.6* 24.1* PLT 412* 446* Recent Labs 11/23/19 0812 11/22/19 0818 NA 140 138 K 4.3 4.5 CL 112* 111* CO2 25 23 BUN 21 16 CREA 1.5* 1.6* CALCIUM 8.8 8.6 PHOS 3.3 3.1 ALBUMIN 2.6* 2.5* No results found for this or any previous visit (from the past 360 hour(s)). No results found for this or any previous visit. Results for orders placed during the hospital encounter of 10/31/19 ECHO Complete Narrative Normal LV systolic function Mild enlargement of the ascending aorta No pulmonary hypertension No obvious vegetation I have reviewed the above labs and radiology reports. PROBLEM LIST Principal Problem: Sepsis Active Problems: Essential hypertension Diabetes Neck pain Acute encephalopathy I attest that this clinical assessment using ASPEN criteria 1 is accurate for this patient and supports that as a medical diagnosis. A specific nutrition treatment plan will be imple mented as outlined in the registered dietitian's plan of care. ASSESSMENT & PLAN Sepsis/streptococcal bacteremia/cervical spine facet arthritis per report no evidence of ep idural abscess or discitis. No evidence of bone involvement. Per Dr. Estrada. Continue IV vancomycin until 11/28/2019. Patient cannot be released with the PICC line due to history of illicit drug use. Unfortunately, several [facility] rehabilitation centers denied admission. He is not a candidate for outpatient IV therapy. Hypertension continue lisinopril monitor BP and adjust as needed Type 2 diabetes continue current insulin regimen and monitor Acute on chronic kidney injury Avoid nephrotoxins and NSAID's Anemia secondary to chronic disease. CKD3 No indication for transfusion unless hgb <7 or sy mptomatic continue to monitor DVT/GI px PT/OT eval and tx and CW for discharge planning Review of H/P, imaging and labs, formulation of assessment and plan, discussion with the pa tient/family, staff, and providers. Portions of this chart may have been copied from previous notes for continuity of care purp oses. Disposition: Admitted Code Status: Full Code Tanna Rahman MD 11/24/2019 Tanna Sanches MD - 11/23/2019 8:06 AM PST [facility] Service:hospitalist Progress Note Hospital Day: LOS: 23 days SUBJECTIVE Patient Summary: refer to H&P and consult note for details Per " Patient Summary: 54-year-old male with history of type 2 diabetes, periphera l vascular disease, status post left BKA 2016, history of hypertension, history of recent dr sewell use (methamphetamine) who was transferred from [facility] where he presente d with fever, chills and worsening neck pain. Patient had leukocytosis. CAT scan of the ne ck was concerning for C4-C5 septic arthritis. Neurosurgery was consulted and recommended me dical management with antibiotics. Infectious disease was consulted and recommended vancomy [place] for a total of 4 weeks. Last dose 11/28/2019. Will require a safe discharge to complete IV infusion" Events Overnight: Patient seen and examined,denies CP or SOB no abdominal pain, hgb i s stable and Cr is 1.5,pain is controlled,stable BG overall, Addressed all questions Scheduled Medications adult multivitamin with minerals/iron 1 tablet Oral Daily enoxaparin 40 mg Subcutaneous Daily famotidine 20 mg Oral BID insulin glargine 15 Units Subcutaneous QPM insulin lispro 0-6 Units Subcutaneous 4x Daily AC and HS lisinopril 10 mg Oral Daily vancomycin 1,250 mg Intravenous Q24H vancomycin per pharmacy Other Pharmacy Consult Continuous Infusions dextrose 10% PRN Medications acetaminophen, Hypoglycemia Management AND POCT Glucose AND dextrose AND dextro se 10%, HYDROcodone-acetaminophen, ondansetron OBJECTIVE Vital Signs: BP 100/59 | Pulse 80 | Temp 37.1 C (98.7 F) (Oral) | Resp 18 | Ht 1.753 m (5' 9") | Wt 68.1 kg (150 lb 3.2 oz) | SpO2 98% | BMI 22.18 kg/m Intake/Output Summary (Last 24 hours) at 11/23/2019 1120 Last data filed at 11/23/2019 1119 Gross per 24 hour Intake 1118 ml Output 1700 ml Net -582 ml General appearance: alert, appears stated age and cooperative. NAD Head: Normocephalic, without obvious abnormality, atraumatic Throat: lips, mucosa, and tongue normal; teeth and gums normal Neck: no adenopathy, no carotid bruit, no JVD, supple, symmetrical, trachea midline and thy roid not enlarged, symmetric, no tenderness/mass/nodules Lungs: clear to auscultation bilaterally Heart: regular rate and rhythm, S1, S2 normal, no murmur, click, rub or gallop Abdomen: soft, non-tender; bowel sounds present Extremities: Left BKA. Pulses: 2+ and symmetric Neurologic: Grossly normal AXO3 DATA BMP 140 112* 21 119* 4.3 25 1.5* CaMgPhos 8.8 1.9 3.3 LFT 15 141* 7.5 13 1.5* 2.6* CBC 4.71 7.3* 412* 23.6* Coag Last labs from current encounter as of 11/23/19-11:20 No results for input(s): TROPONIN, BNP in the last 72 hours. No results for input(s): PROCALCITONI in the last 72 hours. Recent Labs 11/23/19 0812 11/22/19 0818 WBC 4.71 4.59 HGB 7.3* 7.3* HCT 23.6* 24.1* PLT 412* 446* Recent Labs 11/23/19 0812 11/22/19 0818 NA 140 138 K 4.3 4.5 CL 112* 111* CO2 25 23 BUN 21 16 CREA 1.5* 1.6* CALCIUM 8.8 8.6 PHOS 3.3 3.1 ALBUMIN 2.6* 2.5* No results found for this or any previous visit (from the past 360 hour(s)). No results found for this or any previous visit. Results for orders placed during the hospital encounter of 10/31/19 ECHO Complete Narrative Normal LV systolic function Mild enlargement of the ascending aorta No pulmonary hypertension No obvious vegetation I have reviewed the above labs and radiology reports. PROBLEM LIST Principal Problem: Sepsis Active Problems: Essential hypertension Diabetes Neck pain Acute encephalopathy I attest that this clinical assessment using ASPEN criteria 1 is accurate for this patient and supports that as a medical diagnosis. A specific nutrition treatment plan will be imple mented as outlined in the registered dietitian's plan of care. ASSESSMENT & PLAN Sepsis/streptococcal bacteremia/cervical spine facet arthritis per report no evidence of ep idural abscess or discitis. No evidence of bone involvement. Per Dr. Estrada. Continue IV vancomycin until 11/28/2019. Patient cannot be released with the PICC line due to history of illicit drug use. Unfortunately, several [facility] rehabilitation centers denied admission. He is not a candidate for outpatient IV therapy. Hypertension continue lisinopril monitor BP and adjust as needed Type 2 diabetes continue current insulin regimen and monitor Acute on chronic kidney injury Avoid nephrotoxins and NSAID's Anemia secondary to chronic disease. CKD3 No indication for transfusion unless hgb <7 or sy mptomatic continue to monitor DVT/GI px PT/OT eval and tx and CW for discharge planning Review of H/P, imaging and labs, formulation of assessment and plan, discussion with the pa tient/family, staff, and providers. Portions of this chart may have been copied from previous notes for continuity of care purp oses. Disposition: Admitted Code Status: Full Code Tanna Rahman MD 11/23/2019 Phyllis Alaniz, [facility] - 11/22/2019 1:27 PM PSTFormatting of this note might be different from the origina l. Vancomycin Dosing Per Pharmacy Subjective/Objective Kuldip Smith is a 54 y.o. male started on vancomycin 10/31 for sepsis. OSH blood culture s show Streptococcus bacteremia. MRI of cervical spine shows myositis. Per ID, plan for 28 d ays of vancomycin IV (stop date 11/28/19). Patient is not a candidate for home IV antibiotic due to h/o not following up as outpatient. Current Vital Signs: BP 112/69 | Pulse 86 | Temp 37 C (98.6 F) (Oral) | Resp 19 | H t 1.753 m (5' 9") | Wt 68.1 kg (150 lb 3.2 oz) | SpO2 100% | BMI 22.18 kg/m Recent Labs Lab 11/22/19 1119 11/22/19 0818 11/21/19 0812 11/20/19 0854 11/19/19 1049 11/16/19 1045 11/16/19 0450 WBC -- 4.59 -- -- -- -- -- 5.95 VANCOTROUGH 18.7 -- -- -- 18.8 -- 19.8 -- CREA -- 1.6* 1.59* 1.6* 1.63* < > -- 1.4* < > = values in this interval not displayed. Estimated Creatinine Clearance: 52 mL/min (A) (based on SCr of 1.6 mg/dL (H)). Vancomycin Dosing History -patient remains on Vancomycin therapy day 23 Assessment/Plan -current dose is 1250 mg IV Q24H -Vanco Trough today resulted at 18.7 @ 1119. Level is within goal of 15-20, will kimberly nue with current dosing -Doses have been given at appropriate times. -Renal function remains stable, Infection markers - WBC 4.59, RR normal, afebrile, puls e 86 -Per ID, plan is to continue Vancomycin until 11/28 Plan for level: Will continue to watch renal function, if changes are noted, will schedule a vancomycin level Pharmacy will continue to follow and make adjustments to vancomycin therapy as indicated. Thank You, Kingsley. LUIS Gomes, 11/22/2019, 1:27 PM Eden Sanchez MD - 11/22/2019 10:50 AM PSTAttempted to see patient, but he was in the shower. Chart check done. VSS; no new cultures Streptococcal bacteremia Blood cultures negative as of October 31. 4 weeks of treatment following clearance of bloo d cultures will be completed on November 28. Cervical spine facet arthritis No evidence of epidural abscess or discitis, bone involvement. Joint involvement should re spond to 4-week course of IV antibiotics as outlined above. History of methamphetamine abuse Not a candidate for outpatient IV therapy. The patient would be a candidate for placement in usp or swing bed for completion of IV antibiotics. Disposition: If placement is available, IV antibiotic orders will need to be adjusted due t o dose changes made by inpatient pharmacy in response to trough levels. Please contact ID bala perales for updated orders in the event that the patient is able to discharge to skilled nurs ing. Dr. Bustos will assume care starting 11/23/19 for any further questions. Thank you for allow ing me to participate in the care of your patient. Saravanan Sanches MD - 11/22/2019 7:37 AM PST . [facility] Service:hospitalist Progress Note Hospital Day: LOS: 22 days SUBJECTIVE Patient Summary: refer to H&P and consult note for details Per " Patient Summary: 54-year-old male with history of type 2 diabetes, periphera l vascular disease, status post left BKA 2016, history of hypertension, history of recent dr donato use (methamphetamine) who was transferred from [facility] where he presente d with fever, chills and worsening neck pain. Patient had leukocytosis. CAT scan of the ne ck was concerning for C4-C5 septic arthritis. Neurosurgery was consulted and recommended me dical management with antibiotics. Infectious disease was consulted and recommended vancomy [place] for a total of 4 weeks. Last dose 11/28/2019. Will require a safe discharge to complete IV infusion" Events Overnight: Patient seen and examined,denies CP or SOB no abdominal pain, hgb i s stable and Cr is 1.6,pain is controlled,stable BG overall, Addressed all questions Scheduled Medications adult multivitamin with minerals/iron 1 tablet Oral Daily enoxaparin 40 mg Subcutaneous Daily famotidine 20 mg Oral BID insulin glargine 15 Units Subcutaneous QPM insulin lispro 0-6 Units Subcutaneous 4x Daily AC and HS lisinopril 10 mg Oral Daily vancomycin 1,250 mg Intravenous Q24H vancomycin per pharmacy Other Pharmacy Consult Continuous Infusions dextrose 10% PRN Medications acetaminophen, Hypoglycemia Management AND POCT Glucose AND dextrose AND dextro se 10%, HYDROcodone-acetaminophen, ondansetron OBJECTIVE Vital Signs: BP 114/69 | Pulse 83 | Temp 36.7 C (98 F) (Oral) | Resp 19 | Ht 1.753 m (5' 9") | Wt 68.1 kg (150 lb 3.2 oz) | SpO2 100% | BMI 22.18 kg/m Intake/Output Summary (Last 24 hours) at 11/22/2019 1027 Last data filed at 11/22/2019 0900 Gross per 24 hour Intake 1579 ml Output 1400 ml Net 179 ml General appearance: alert, appears stated age and cooperative. NAD Head: Normocephalic, without obvious abnormality, atraumatic Throat: lips, mucosa, and tongue normal; teeth and gums normal Neck: no adenopathy, no carotid bruit, no JVD, supple, symmetrical, trachea midline and thy roid not enlarged, symmetric, no tenderness/mass/nodules Lungs: clear to auscultation bilaterally Heart: regular rate and rhythm, S1, S2 normal, no murmur, click, rub or gallop Abdomen: soft, non-tender; bowel sounds present Extremities: Left BKA. Pulses: 2+ and symmetric Neurologic: Grossly normal AXO3 DATA BMP 138 111* 16 130* 4.5 23 1.6* CaMgPhos 8.6 1.9 3.1 LFT 15 141* 7.5 13 1.5* 2.5* CBC 4.59 7.3* 446* 24.1* Coag Last labs from current encounter as of 11/22/19-10:27 No results for input(s): TROPONIN, BNP in the last 72 hours. No results for input(s): PROCALCITONI in the last 72 hours. Recent Labs 11/22/19 0818 WBC 4.59 HGB 7.3* HCT 24.1* PLT 446* Recent Labs 11/22/19 0818 11/21/19 0812 NA 138 140 K 4.5 4.1 CL 111* 110* CO2 23 24 BUN 16 15 CREA 1.6* 1.59* CALCIUM 8.6 8.5 PHOS 3.1 3.7 ALBUMIN 2.5* 3.4* No results found for this or any previous visit (from the past 360 hour(s)). No results found for this or any previous visit. Results for orders placed during the hospital encounter of 10/31/19 ECHO Complete Narrative Normal LV systolic function Mild enlargement of the ascending aorta No pulmonary hypertension No obvious vegetation I have reviewed the above labs and radiology reports. PROBLEM LIST Principal Problem: Sepsis Active Problems: Essential hypertension Diabetes Neck pain Acute encephalopathy I attest that this clinical assessment using ASPEN criteria 1 is accurate for this patient and supports that as a medical diagnosis. A specific nutrition treatment plan will be imple mented as outlined in the registered dietitian's plan of care. ASSESSMENT & PLAN Sepsis/streptococcal bacteremia/cervical spine facet arthritis per report no evidence of ep idural abscess or discitis. No evidence of bone involvement. Per Dr. Estrada. Continue IV vancomycin until 11/28/2019. Patient cannot be released with the PICC line due to history of illicit drug use. Unfortunately, several [facility] rehabilitation centers denied admission. He is not a candidate for outpatient IV therapy. Hypertension continue lisinopril monitor BP and adjust as needed Type 2 diabetes continue current insulin regimen and monitor Acute on chronic kidney injury Avoid nephrotoxins and NSAID's SLIVF for now Anemia secondary to chronic disease. CKD3 No indication for urgent transfusion continue to monitor. DVT/GI px PT/OT eval and tx and CW for discharge planning Review of H/P, imaging and labs, formulation of assessment and plan, discussion with the pa tient/family, staff, and providers. Portions of this chart may have been copied from previous notes for continuity of care purp oses. Disposition: Admitted Code Status: Full Code Tanna Rahman MD 11/22/2019 Phyllis Alaniz, [facility] - 11/21/2019 2:37 PM PSTFormatting of this note might be different from the origina l. Vancomycin Dosing Per Pharmacy Subjective/Objective Kuldip Smith is a 54 y.o. male started on vancomycin 10/31 for sepsis. OSH blood culture s show Streptococcus bacteremia. MRI of cervical spine shows myositis. Per ID, plan for 28 d ays of vancomycin IV (stop date 11/28/19). Patient is not a candidate for home IV antibiotic due to h/o not following up as outpatient. Current Vital Signs: BP 134/78 | Pulse 87 | Temp 36.7 C (98.1 F) (Oral) | Resp 18 | Ht 1.753 m (5' 9") | Wt 68.1 kg (150 lb 3.2 oz) | SpO2 100% | BMI 22.18 kg/m Recent Labs Lab 11/21/19 0812 11/20/19 0854 11/19/19 1049 11/16/19 1045 11/16/19 0450 WBC -- -- -- -- -- 5.95 VANCOTROUGH -- -- 18.8 -- 19.8 -- CREA 1.59* 1.6* 1.63* < > -- 1.4* < > = values in this interval not displayed. Estimated Creatinine Clearance: 52 mL/min (A) (based on SCr of 1.59 mg/dL (H)). Vancomycin Dosing History -patient remains on Vancomycin therapy day 22 Assessment/Plan -current dose is 1250 mg IV Q24H -Doses have been given at appropriate times. -Scr remains stable stable, urine output increased (patient does not have a catheter) -Infection markers - no WBC today, RR normal, afebrile, pulse 87 -Per ID, plan is to continue Vancomycin until 11/28 Plan for level: 11/22 @ 1100 Pharmacy will continue to follow and make adjustments to vancomycin therapy as indicated. Thank You, Kingsley. LUIS Gomes, 11/21/2019, 2:37 PM Jermaine Cazares M D - 11/21/2019 9:07 AM PST [facility] Service: Hospitalist Progress Note Hospital Day: LOS: 21 days SUBJECTIVE Patient Summary: 54-year-old male with history of type 2 diabetes, peripheral vascular disease, status post left BKA 2016, history of hypertension, history of recent drug use (me thamphetamine) who was transferred from [facility] where he presented with fev er, chills and worsening neck pain. Patient had leukocytosis. CAT scan of the neck was con cerning for C4-C5 septic arthritis. Neurosurgery was consulted and recommended medical sarah goodson with antibiotics. Infectious disease was consulted and recommended vancomycin for a total of 4 weeks. Last dose 11/28/2019. Will require a safe discharge to complete IV infusi on. Events Overnight: Seen and examined patient. He is less interactive but denied having any neck pain. Appear s withdrawn. No fevers or chills. Claims to do have good p.o. intake. Scheduled Medications adult multivitamin with minerals/iron 1 tablet Oral Daily enoxaparin 40 mg Subcutaneous Daily famotidine 20 mg Oral BID insulin glargine 15 Units Subcutaneous QPM insulin lispro 0-6 Units Subcutaneous 4x Daily AC and HS lisinopril 10 mg Oral Daily vancomycin 1,250 mg Intravenous Q24H vancomycin per pharmacy Other Pharmacy Consult Continuous Infusions dextrose 10% sodium chloride 0.9% Stopped (11/20/19 0548) PRN Medications acetaminophen, Hypoglycemia Management AND POCT Glucose AND dextrose AND dextro se 10%, HYDROcodone-acetaminophen, ondansetron OBJECTIVE Vital Signs: Vitals: 11/20/19 0831 11/20/19 1117 11/20/19 1528 11/20/19 1907 BP: 122/74 146/75 149/88 117/69 Pulse: 77 78 71 82 Resp: 18 18 18 18 Temp: 36.9 C (98.5 F) 37.1 C (98.7 F) 37.1 C (98.7 F) 37.2 C (98.9 F) TempSrc: Oral Oral Oral Oral SpO2: 99% 100% 100% 100% Weight: Height: Physical Exam General appearance: alert, appears stated age and cooperative. Minimal interaction, no dis tress. Speaking in full sentences. Appears withdrawn. Head: Normocephalic, without obvious abnormality, atraumatic Throat: lips, mucosa, and tongue normal; teeth and gums normal Neck: no adenopathy, no carotid bruit, no JVD, supple, symmetrical, trachea midline and thy roid not enlarged, symmetric, no tenderness/mass/nodules Lungs: clear to auscultation bilaterally Heart: regular rate and rhythm, S1, S2 normal, no murmur, click, rub or gallop Abdomen: soft, non-tender; bowel sounds normal; no masses, no organomegaly Extremities: extremities normal, atraumatic, no cyanosis or edema. Left BKA. Pulses: 2+ and symmetric Skin: Skin color, texture, turgor normal. No rashes or lesions Lymph nodes: Cervical, supraclavicular, and axillary nodes normal. Neurologic: Grossly normal DATA, personally reviewed Recent Labs Lab 11/16/19 0450 WBC 5.95 HGB 7.3* HCT 23.6* PLT 578* MONOPCT 8.40 Recent Labs Lab 11/21/19 0812 11/20/19 0854 11/19/19 1049 NA 140 139 137 K 4.1 4.3 4.5 CL 110* 111* 107 CO2 24 23 23 BUN 15 18 21 CALCIUM 8.5 8.5 8.8 Lab Results Component Value Date CREA 1.59 (H) 11/21/2019 LABCREA 1.1 01/14/2018 Phosphorus: Lab Results Component Value Date PHOS 3.7 11/21/2019 Radiology, personally reviewed Mri Cervical Spine W Wo Contrast Result Date: 10/31/2019 1. Advanced right-sided facet degenerative changes spanning C2 through C5. At C4-C5 there is a facet joint effusion with mild associated enhancement which could represent advanced de generative changes versus septic joint. 2. Marked edema, asymmetric enlargement, in faint en hancement involving the right posterior neck musculature which appears to be somewhat center ed around the right C4-C5 facet joint. Findings are concerning for infection/myositis but c ould potentially represent sequela of previous injury. 3. No epidural abscess, phlegmonous c hanges, or evidence of discitis osteomyelitis. 4. Advanced cervical spondylosis at C3 throug h C5. Changes are worst at C3-C4 where there is moderate to severe narrowing of the spinal canal with mild compression of the cervical cord. No definite cord signal abnormality is se en at any level but evaluation is limited due to motion artifact on the sagittal T2 and STIR images. Signed by: Steve Maria Jace Sign Date/Time: 10/31/2019 11:01 PM PROBLEM LIST Principal Problem: Sepsis Active Problems: Essential hypertension Diabetes Neck pain Acute encephalopathy ASSESSMENT & PLAN Sepsis/streptococcal bacteremia/cervical spine facet arthritis No evidence of epidural abscess or discitis. No evidence of bone involvement. Currently pain is well controlled. Appreciate input from infectious disease, Dr. Estrada. Continue IV vancomycin until 11/28/2019 . Patient cannot be released with the PICC line due to history of illicit drug use. Unfortunately, several [facility] rehabilitation centers denied admission. He is not a candidate for outpatient IV therapy. Hypertension Blood pressures are within acceptable limits. Continue lisinopril. Type 2 diabetes Sugars are within acceptable limits. Continue Lantus 15 units nightly. Continue Humalog correctional scale. Acute on chronic kidney injury Avoid nephrotoxins. Creatinine is stable 1.59. Continue saline at 75 cc an hour and reassess in a.m. Also encourage fluids. Suspect some degree of diabetic nephropathy.. Anemia Most likely secondary to chronic disease. H&H is stable. No active bleeding. No indication for urgent transfusion. Continue to monitor. DVT prophylaxis: In place. GI prophylaxis: In place. Disposition: Inpatient. 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 Personal communication requested for any clarification. Jermaine Urias MD 11/21/2019 9:07 AM Kingsley Alaniz RP H - 11/20/2019 1:17 PM PST Vancomycin Dosing Per Pharmacy Subjective/Objective Kuldip Smith is a 54 y.o. male started on vancomycin 10/31 for sepsis. OSH blood culture s show Streptococcus bacteremia. MRI of cervical spine shows myositis. Per ID, plan for 28 d ays of vancomycin IV (stop date 11/28/19). Patient is not a candidate for home IV antibiotic due to h/o not following up as outpatient. Current Vital Signs: BP 146/75 | Pulse 78 | Temp 37.1 C (98.7 F) (Oral) | Resp 18 | Ht 1.753 m (5' 9") | Wt 68.1 kg (150 lb 3.2 oz) | SpO2 100% | BMI 22.18 kg/m Recent Labs Lab 11/20/19 0854 11/19/19 1049 11/18/19 0802 11/16/19 1045 11/16/19 0450 11/13/19 1946 WBC -- -- -- -- -- 5.95 -- -- VANCOTROUGH -- 18.8 -- -- 19.8 -- -- 21.8* CREA 1.6* 1.63* 1.57* < > -- 1.4* < > -- < > = values in this interval not displayed. Estimated Creatinine Clearance: 52 mL/min (A) (based on SCr of 1.6 mg/dL (H)). Vancomycin Dosing History -patient remains on Vancomycin therapy day 21 Assessment/Plan -current dose is 1250 mg IV Q24H -Doses have been given at appropriate times. -Scr remains stable stable, urine output decreased per chart review (patient does not h ave a catheter) -Infection markers - no WBC today, RR normal, afebrile, pulse 78 Plan for level: 11/22 @ 1100 Pharmacy will continue to follow and make adjustments to vancomycin therapy as indicated. Thank You, Kingsley. LUIS Gomes, 11/20/2019, 1:17 PM Jermaine Cazares M D - 11/20/2019 9:23 AM PST [facility] Service: Hospitalist Progress Note Hospital Day: LOS: 20 days SUBJECTIVE Patient Summary: 54-year-old male with history of type 2 diabetes, peripheral vascular disease, status post left BKA 2016, history of hypertension, history of recent drug use (me thamphetamine) who was transferred from [facility] where he presented with fev er, chills and worsening neck pain. Patient had leukocytosis. CAT scan of the neck was con cerning for C4-C5 septic arthritis. Neurosurgery was consulted and recommended medical sarah kellee with antibiotics. Infectious disease was consulted and recommended vancomycin for a total of 4 weeks. Last dose 11/28/2019. Will require a safe discharge to complete IV infusi on. Events Overnight: 11/15/2019 seen and examined patient. For the most part, neck pain is much improved however during my encounter, he did not want to be bothered. So not so much cooperative during phy sical exam. He remains afebrile. 11/16/2019 seen and examined patient. Denies having any fevers or chills. Denies having an y neck pain today. Is more cooperative today. We will follow if we can continue IV antibio tics as an outpatient. 11/17/2019 seen and examined patient. He does not want to be bothered today. He covered hi mself with his blanket. Overall however he denied any new symptoms. 11/18/2019 seen and examined patient. Today he is more engaging. Denies having any neck pa in. No fevers or chills. No new complaints. 11/19/2019 seen and examined patient. Patient denies having any neck pain. No new complain ts. He does not seem to be interested in talking today. Apparently early this morning, he wanted to sign AMA but later on changed his mind and will stay. 11/20/2019 seen and examined patient. No new complaints. Minimal interaction. Scheduled Medications adult multivitamin with minerals/iron 1 tablet Oral Daily enoxaparin 40 mg Subcutaneous Daily famotidine 20 mg Oral BID insulin glargine 15 Units Subcutaneous QPM insulin lispro 0-6 Units Subcutaneous 4x Daily AC and HS lisinopril 10 mg Oral Daily vancomycin 1,250 mg Intravenous Q24H vancomycin per pharmacy Other Pharmacy Consult Continuous Infusions dextrose 10% sodium chloride 0.9% Stopped (11/20/19 0548) PRN Medications acetaminophen, Hypoglycemia Management AND POCT Glucose AND dextrose AND dextro se 10%, HYDROcodone-acetaminophen, ondansetron OBJECTIVE Vital Signs: Vitals: 11/19/19 1956 11/19/19199911/19/19 2250 11/20/19 0831 BP: 116/66 116/66 105/64 122/74 Pulse: 98 103 77 Resp: Temp: 37 C (98.6 F) 37.1 C (98.7 F) 36.9 C (98.5 F) TempSrc: Oral Oral Oral SpO2: 100% 100% 99% Weight: Height: Physical Exam General appearance: alert, appears stated age and cooperative. Minimal interaction, no dis tress. Speaking in full sentences. Head: Normocephalic, without obvious abnormality, atraumatic Throat: lips, mucosa, and tongue normal; teeth and gums normal Neck: no adenopathy, no carotid bruit, no JVD, supple, symmetrical, trachea midline and thy roid not enlarged, symmetric, no tenderness/mass/nodules Lungs: clear to auscultation bilaterally Heart: regular rate and rhythm, S1, S2 normal, no murmur, click, rub or gallop Abdomen: soft, non-tender; bowel sounds normal; no masses, no organomegaly Extremities: extremities normal, atraumatic, no cyanosis or edema. Left BKA. Pulses: 2+ and symmetric Skin: Skin color, texture, turgor normal. No rashes or lesions Lymph nodes: Cervical, supraclavicular, and axillary nodes normal. Neurologic: Grossly normal DATA, personally reviewed Recent Labs Lab 11/16/19 0450 WBC 5.95 HGB 7.3* HCT 23.6* PLT 578* MONOPCT 8.40 Recent Labs Lab 11/19/19 1049 11/18/19 0802 11/17/19 0801 NA 137 139 137 K 4.5 4.2 4.5 CL 107 110* 111* CO2 23 23 19* BUN 21 19 22 CALCIUM 8.8 8.8 8.3* Lab Results Component Value Date CREA 1.63 (H) 11/19/2019 LABCREA 1.1 01/14/2018 Phosphorus: Lab Results Component Value Date PHOS 4.0 11/19/2019 Radiology, personally reviewed Mri Cervical Spine W Wo Contrast Result Date: 10/31/2019 1. Advanced right-sided facet degenerative changes spanning C2 through C5. At C4-C5 there is a facet joint effusion with mild associated enhancement which could represent advanced de generative changes versus septic joint. 2. Marked edema, asymmetric enlargement, in faint en hancement involving the right posterior neck musculature which appears to be somewhat center ed around the right C4-C5 facet joint. Findings are concerning for infection/myositis but c ould potentially represent sequela of previous injury. 3. No epidural abscess, phlegmonous c hanges, or evidence of discitis osteomyelitis. 4. Advanced cervical spondylosis at C3 throug h C5. Changes are worst at C3-C4 where there is moderate to severe narrowing of the spinal canal with mild compression of the cervical cord. No definite cord signal abnormality is se en at any level but evaluation is limited due to motion artifact on the sagittal T2 and STIR images. Signed by: Steve Maria Jace Sign Date/Time: 10/31/2019 11:01 PM PROBLEM LIST Principal Problem: Sepsis Active Problems: Essential hypertension Diabetes Neck pain Acute encephalopathy ASSESSMENT & PLAN Sepsis/streptococcal bacteremia/cervical spine facet arthritis No evidence of epidural abscess or discitis. No evidence of bone involvement. Currently pain is well controlled. Appreciate input from infectious disease, Dr. Estrada. Continue IV vancomycin until 11/28/2019 . Patient cannot be released with the PICC line due to history of illicit drug use. Unfortunately, several [facility] rehabilitation centers denied admission. He is not a candidate for outpatient IV therapy. Hypertension Blood pressures are within acceptable limits. Continue lisinopril. Type 2 diabetes Sugars are within acceptable limits. Continue Lantus 15 units nightly. Continue Humalog correctional scale. Acute on chronic kidney injury Avoid nephrotoxins. Creatinine is slightly up 1.6. Continue saline at 75 cc an hour and reassess in a.m. Suspect some degree of diabetic nephropathy.. DVT prophylaxis: In place. GI prophylaxis: In place. Disposition: Inpatient. 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 Personal communication requested for any clarification. Jermaine Urias MD 11/20/2019 9:23 AM Rochelle Mares P harmD - 11/19/2019 11:34 AM PST Vancomycin Dosing Per Pharmacy Subjective/Objective Kuldip Smith is a 54 y.o. male started on vancomycin 10/31 for sepsis. Current Vital Signs: BP 109/66 | Pulse 75 | Temp 37.2 C (98.9 F) (Oral) | Resp 17 | Ht 1.753 m (5' 9") | Wt 68.1 kg (150 lb 3.2 oz) | SpO2 97% | BMI 22.18 kg/m Recent Labs Lab 11/19/19 1049 11/18/19 0802 11/17/19 0801 11/16/19 1045 11/16/19 0450 11/13/19 1946 11/12/19 1918 WBC -- -- -- -- 5.95 -- -- -- 7.52 VANCOTROUGH 18.8 -- -- 19.8 -- -- 21.8* -- -- CREA 1.63* 1.57* 1.8* -- 1.4* < > -- < > -- < > = values in this interval not displayed. Estimated Creatinine Clearance: 51 mL/min (A) (based on SCr of 1.63 mg/dL (H)). Vancomycin Dosing History Vancomycin Dosing History -patient remains on Vancomycin therapy day 20 Assessment/Plan Vancomycin Trough resulted: 11/19/19 @ 10:49: 18.8 mcg/mL. within goal 15-20 mcg/mL Will continue with current regimen of vancomycin 1250 mg IV Q24H. Plan for level: 11/22 at 11:00 Pharmacy will continue to follow and make adjustments to vancomycin therapy as indicated. Thank You, ROCHELLE HERNÁNDEZ, PharmD, 11/19/2019, 11:32 AM Debora, Suman monroy MD - 11/19/2019 9:01 AM PST [facility] Service: Hospitalist Progress Note Hospital Day: LOS: 19 days SUBJECTIVE Patient Summary: 54-year-old male with history of type 2 diabetes, peripheral vascular disease, status post left BKA 2017, history of hypertension, history of recent drug use (me thamphetamine) who was transferred from [facility] where he presented with fev er, chills and worsening neck pain. Patient had leukocytosis. CAT scan of the neck was con cerning for C4-C5 septic arthritis. Neurosurgery was consulted and recommended medical sarah gemines with antibiotics. Infectious disease was consulted and recommended vancomycin for a total of 4 weeks. Last dose 11/28/2019. Will require a safe discharge to complete IV infusi on. Events Overnight: 11/15/2019 seen and examined patient. For the most part, neck pain is much improved however during my encounter, he did not want to be bothered. So not so much cooperative during phy sical exam. He remains afebrile. 11/16/2019 seen and examined patient. Denies having any fevers or chills. Denies having an y neck pain today. Is more cooperative today. We will follow if we can continue IV antibio tics as an outpatient. 11/17/2019 seen and examined patient. He does not want to be bothered today. He covered hi mself with his blanket. Overall however he denied any new symptoms. 11/18/2019 seen and examined patient. Today he is more engaging. Denies having any neck pa in. No fevers or chills. No new complaints. 11/19/2019 seen and examined patient. Patient denies having any neck pain. No new complain ts. He does not seem to be interested in talking today. Apparently early this morning, he wanted to sign AMA but later on changed his mind and will stay. Scheduled Medications adult multivitamin with minerals/iron 1 tablet Oral Daily enoxaparin 40 mg Subcutaneous Daily famotidine 20 mg Oral BID insulin glargine 15 Units Subcutaneous QPM insulin lispro 0-6 Units Subcutaneous 4x Daily AC and HS lisinopril 10 mg Oral Daily vancomycin 1,250 mg Intravenous Q24H vancomycin per pharmacy Other Pharmacy Consult Continuous Infusions dextrose 10% PRN Medications acetaminophen, Hypoglycemia Management AND POCT Glucose AND dextrose AND dextro se 10%, HYDROcodone-acetaminophen, ondansetron OBJECTIVE Vital Signs: Vitals: 11/18/19 1125 11/18/19 1534 11/18/19 1916 11/19/19 0457 BP: 122/68 107/68 146/84 119/72 Pulse: 82 85 80 75 Resp: Temp: 36.9 C (98.4 F) 36.8 C (98.2 F) 37.2 C (98.9 F) TempSrc: Oral Oral Oral SpO2: 100% 100% 98% 97% Weight: Height: Physical Exam General appearance: alert, appears stated age and cooperative. Less engaging and motivated , no distress. Speaking in full sentences. Head: Normocephalic, without obvious abnormality, atraumatic Throat: lips, mucosa, and tongue normal; teeth and gums normal Neck: no adenopathy, no carotid bruit, no JVD, supple, symmetrical, trachea midline and thy roid not enlarged, symmetric, no tenderness/mass/nodules Lungs: clear to auscultation bilaterally Heart: regular rate and rhythm, S1, S2 normal, no murmur, click, rub or gallop Abdomen: soft, non-tender; bowel sounds normal; no masses, no organomegaly Extremities: extremities normal, atraumatic, no cyanosis or edema. Left BKA. Pulses: 2+ and symmetric Skin: Skin color, texture, turgor normal. No rashes or lesions Lymph nodes: Cervical, supraclavicular, and axillary nodes normal. Neurologic: Grossly normal DATA, personally reviewed Recent Labs Lab 11/16/19 0450 11/12/19 1918 WBC 5.95 7.52 HGB 7.3* 7.3* HCT 23.6* 23.4* PLT 578* 514* MONOPCT 8.40 -- Recent Labs Lab 11/18/19 0802 11/17/19 0801 11/16/19 0450 NA 139 137 137 K 4.2 4.5 4.2 CL 110* 111* 105 CO2 23 19* 27 BUN 19 22 17 CALCIUM 8.8 8.3* 9.0 Lab Results Component Value Date CREA 1.57 (H) 11/18/2019 LABCREA 1.1 01/14/2018 Phosphorus: Lab Results Component Value Date PHOS 3.8 11/18/2019 Radiology, personally reviewed Mri Cervical Spine W Wo Contrast Result Date: 10/31/2019 1. Advanced right-sided facet degenerative changes spanning C2 through C5. At C4-C5 there is a facet joint effusion with mild associated enhancement which could represent advanced de generative changes versus septic joint. 2. Marked edema, asymmetric enlargement, in faint en hancement involving the right posterior neck musculature which appears to be somewhat center ed around the right C4-C5 facet joint. Findings are concerning for infection/myositis but c ould potentially represent sequela of previous injury. 3. No epidural abscess, phlegmonous c hanges, or evidence of discitis osteomyelitis. 4. Advanced cervical spondylosis at C3 throug h C5. Changes are worst at C3-C4 where there is moderate to severe narrowing of the spinal canal with mild compression of the cervical cord. No definite cord signal abnormality is se en at any level but evaluation is limited due to motion artifact on the sagittal T2 and STIR images. Signed by: Steve Maria Jace Sign Date/Time: 10/31/2019 11:01 PM PROBLEM LIST Principal Problem: Sepsis Active Problems: Essential hypertension Diabetes Neck pain Acute encephalopathy ASSESSMENT & PLAN Sepsis/streptococcal bacteremia/cervical spine facet arthritis No evidence of epidural abscess or discitis. No evidence of bone involvement. Appreciate input from infectious disease, Dr. Estrada. Continue IV vancomycin until 11/28/2019 . Patient cannot be released with the PICC line due to history of illicit drug use. Unfortunately, several [facility] rehabilitation centers denied admission. He is not a candidate for outpatient IV therapy. I had a long discussion with the patient regarding the length of treatment. Hypertension Blood pressures are within acceptable limits. Continue lisinopril. Type 2 diabetes Sugars are within acceptable limits. Continue Lantus 15 units nightly. Continue Humalog correctional scale. Acute on chronic kidney injury Avoid nephrotoxins. Creatinine is slightly up 1.6. Start saline at 75 cc an hour and reassess in a.m. Suspect some degree of diabetic nephropathy.. DVT prophylaxis: In place. GI prophylaxis: In place. Disposition: Inpatient. 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 Personal communication requested for any clarification. Jermaine Urias MD 11/19/2019 9:01 AM Solange Coats Phar macy Casing Running Machine Tender - 11/18/2019 3:20 PM PSTFormatting of this note might be different from the kar ralf. Vancomycin Dosing Per Pharmacy Subjective/Objective Kuldip Smith is a 54 y.o. male started on vancomycin 10/31 for sepsis. OSH blood culture s show Streptococcus bacteremia. MRI of cervical spine shows myositis. Per ID, plan for 28 d ays of vancomycin IV (stop date 11/28/19). Patient is not a candidate for home IV antibiotic due to h/o not following up as outpatient. Current Vital Signs: BP 122/68 | Pulse 82 | Temp 36.9 C (98.4 F) (Oral) | Resp 16 | Ht 1.753 m (5' 9") | Wt 68.1 kg (150 lb 3.2 oz) | SpO2 100% | BMI 22.18 kg/m Recent Labs Lab 11/18/19 0802 11/17/19 0801 11/16/19 1045 11/16/19 0450 11/13/19 1946 11/12/19 1918 11/12/19 0711 WBC -- -- -- 5.95 -- -- -- 7.52 -- VANCOTROUGH -- -- 19.8 -- -- 21.8* -- -- 15.5 CREA 1.57* 1.8* -- 1.4* < > -- < > -- -- < > = values in this interval not displayed. Estimated Creatinine Clearance: 53 mL/min (A) (based on SCr of 1.57 mg/dL (H)). Vancomycin Dosing History -patient remains on Vancomycin therapy day 19 Assessment/Plan -current dose is 1250 mg IV Q24H, recent change from 1 g Q18H on 11/16 -Level planned for 11/19 @ 1100, doses have been given at appropriate times. -Scr slight decrease from yesterday from 1.8 to 1.57, and urine output increased. -Infection markers - no WBC today, RR normal, afebrile, pulse 82 Plan for level: 11/19 @ 1100 Pharmacy will continue to follow and make adjustments to vancomycin therapy as indicated. Thank You, Solange Haynes, Process Engineering Manager, 11/18/2019, 3:21 PM Associated attestation - Kingsley Gomes RP - 11/18/2019 3:32 PM PSTLevel planned for tomorrow at 1100. Will reassess vancomycin. Agree with plan below. Leroy Timmons, RD - 0 11/18/2019 3:01 PM PST NUTRITION NOTE Summary Reason For Assessment: per organizational policy(L risk follow up.) Spoke with RN who reports no nutritional concerns at this time, pt is tolerating PO, appeti te remains good. Food Intake Type of Food/Meals: Current active diet order is: Diet Diet consistent carb; 60 gm CARB/Meal; Effective Now Per charting of meals pt is consistently eating 100% of meals. Nutritionally Relevant Medications MVI/min, iron, insulin. Nutrition-Focused Physical Findings Skin: Wound care last assessment, noted pt knee wound - dry scabbed abrasion, and no need for wound care at this time. Anthropometrics No current wt to review, recommend obtaining current wt to help assess the trend. Biochemical Data, Medical Test, and Procedures Recent Labs 11/18/19 0802 NA 139 K 4.2 GLU 143* BUN 19 CREA 1.57* PHOS 3.8 Recommendations Continue diet as ordered. Encourage high protein, nutrient dense foods. Will continue to mo nitor po intake for adequacy. Nutritional Risk Level Of Risk: low Required Follow Up: 7 days(11/25 L) Leroy Timmons RD 11/18/2019 3:01 PM Jermaine Cazares MD - 11/18/2019 9:34 AM PST [facility] Service: Hospitalist Progress Note Hospital Day: LOS: 18 days SUBJECTIVE Patient Summary: 54-year-old male with history of type 2 diabetes, peripheral vascular disease, status post left BKA 2017, history of hypertension, history of recent drug use (me thamphetamine) who was transferred from [facility] where he presented with fev er, chills and worsening neck pain. Patient had leukocytosis. CAT scan of the neck was con cerning for C4-C5 septic arthritis. Neurosurgery was consulted and recommended medical sarah gement with antibiotics. Infectious disease was consulted and recommended vancomycin for a total of 4 weeks. Last dose 11/28/2019. Will require a safe discharge to complete IV infusi on. Events Overnight: 11/15/2019 seen and examined patient. For the most part, neck pain is much improved however during my encounter, he did not want to be bothered. So not so much cooperative during phy sical exam. He remains afebrile. 11/16/2019 seen and examined patient. Denies having any fevers or chills. Denies having an y neck pain today. Is more cooperative today. We will follow if we can continue IV antibio tics as an outpatient. 11/17/2019 seen and examined patient. He does not want to be bothered today. He covered hi mself with his blanket. Overall however he denied any new symptoms. 11/18/2019 seen and examined patient. Today he is more engaging. Denies having any neck pa in. No fevers or chills. No new complaints. Scheduled Medications adult multivitamin with minerals/iron 1 tablet Oral Daily enoxaparin 40 mg Subcutaneous Daily famotidine 20 mg Oral BID insulin glargine 15 Units Subcutaneous QPM insulin lispro 0-6 Units Subcutaneous 4x Daily AC and HS lisinopril 10 mg Oral Daily vancomycin 1,250 mg Intravenous Q24H vancomycin per pharmacy Other Pharmacy Consult Continuous Infusions dextrose 10% PRN Medications acetaminophen, Hypoglycemia Management AND POCT Glucose AND dextrose AND dextro se 10%, HYDROcodone-acetaminophen, ondansetron OBJECTIVE Vital Signs: Vitals: 11/17/19 1609 11/17/19 1947 11/17/19 2257 11/18/19 0738 BP: 119/69 131/75 130/77 95/48 Pulse: 75 76 70 73 Resp: Temp: 36.4 C (97.5 F) 36.9 C (98.5 F) 37.2 C (99 F) 36.7 C (98 F) TempSrc: Oral Oral Oral Oral SpO2: 100% 100% 98% 99% Weight: Height: Physical Exam General appearance: alert, appears stated age and cooperative. More awake and engaging, no distress. Speaking in full sentences. Head: Normocephalic, without obvious abnormality, atraumatic Throat: lips, mucosa, and tongue normal; teeth and gums normal Neck: no adenopathy, no carotid bruit, no JVD, supple, symmetrical, trachea midline and thy roid not enlarged, symmetric, no tenderness/mass/nodules Lungs: clear to auscultation bilaterally Heart: regular rate and rhythm, S1, S2 normal, no murmur, click, rub or gallop Abdomen: soft, non-tender; bowel sounds normal; no masses, no organomegaly Extremities: extremities normal, atraumatic, no cyanosis or edema. Left BKA. Pulses: 2+ and symmetric Skin: Skin color, texture, turgor normal. No rashes or lesions Lymph nodes: Cervical, supraclavicular, and axillary nodes normal. Neurologic: Grossly normal DATA, personally reviewed Recent Labs Lab 11/16/19 0450 11/12/19 1918 WBC 5.95 7.52 HGB 7.3* 7.3* HCT 23.6* 23.4* PLT 578* 514* MONOPCT 8.40 -- Recent Labs Lab 11/18/19 0802 11/17/19 0801 11/16/19 0450 NA 139 137 137 K 4.2 4.5 4.2 CL 110* 111* 105 CO2 23 19* 27 BUN 19 22 17 CALCIUM 8.8 8.3* 9.0 Lab Results Component Value Date CREA 1.57 (H) 11/18/2019 LABCREA 1.1 01/14/2018 Phosphorus: Lab Results Component Value Date PHOS 3.8 11/18/2019 Radiology, personally reviewed Mri Cervical Spine W Wo Contrast Result Date: 10/31/2019 1. Advanced right-sided facet degenerative changes spanning C2 through C5. At C4-C5 there is a facet joint effusion with mild associated enhancement which could represent advanced de generative changes versus septic joint. 2. Marked edema, asymmetric enlargement, in faint en hancement involving the right posterior neck musculature which appears to be somewhat center ed around the right C4-C5 facet joint. Findings are concerning for infection/myositis but c ould potentially represent sequela of previous injury. 3. No epidural abscess, phlegmonous c hanges, or evidence of discitis osteomyelitis. 4. Advanced cervical spondylosis at C3 throug h C5. Changes are worst at C3-C4 where there is moderate to severe narrowing of the spinal canal with mild compression of the cervical cord. No definite cord signal abnormality is se en at any level but evaluation is limited due to motion artifact on the sagittal T2 and STIR images. Signed by: Steve Maria Jace Sign Date/Time: 10/31/2019 11:01 PM PROBLEM LIST Principal Problem: Sepsis Active Problems: Essential hypertension Diabetes Neck pain Acute encephalopathy ASSESSMENT & PLAN Sepsis/streptococcal bacteremia/cervical spine facet arthritis No evidence of epidural abscess or discitis. No evidence of bone involvement. Appreciate input from infectious disease, Dr. Estrada. Continue IV vancomycin until 11/28/2019 . Patient cannot be released with the PICC line due to history of illicit drug use. Unfortunately, several [facility] rehabilitation centers denied admission. He is not a candidate for outpatient IV therapy. I had a long discussion with the patient regarding the length of treatment. Hypertension Blood pressures are within acceptable limits. Continue lisinopril. Type 2 diabetes Sugars are within acceptable limits. Continue Lantus 15 units nightly. Continue Humalog correctional scale. Acute on chronic kidney injury Avoid nephrotoxins. Creatinine is stable at 1.5. Suspect some degree of diabetic nephropathy.. DVT prophylaxis: In place. GI prophylaxis: In place. Disposition: Inpatient. 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 Personal communication requested for any clarification. Jermaine Urias MD 11/18/2019 9:34 AM Rosamaria Ventura RN - 11/18/2019 9:12 AM PSTPt currently is MRSA + in the nares. Contact Isolation is not req uired for + MRSA in the nares. Blood cultures resulted negative this admission. Pt has no open/draining wounds, scabbed/dry area over stump. I.P. does not feel patient needs to cont inue contact precautions. You may d/c isolation. RN notified on floor. Thank you! Rosamaria De La Garza RN, MSN, Infection Prevention Coordinator Jermaine Cazares MD - 11/17/2019 9:28 AM PSTFormattsiis ng of this note might be different from the original. [facility] Service: Hospitalist Progress Note Hospital Day: LOS: 17 days SUBJECTIVE Patient Summary: 54-year-old male with history of type 2 diabetes, peripheral vascular disease, status post left BKA 2017, history of hypertension, history of recent drug use (me thamphetamine) who was transferred from [facility] where he presented with fev er, chills and worsening neck pain. Patient had leukocytosis. CAT scan of the neck was con cerning for C4-C5 septic arthritis. Neurosurgery was consulted and recommended medical sarah gement with antibiotics. Infectious disease was consulted and recommended vancomycin for a total of 4 weeks. Last dose 11/28/2019. Will require a safe discharge to complete IV infusi on. Events Overnight: 11/15/2019 seen and examined patient. For the most part, neck pain is much improved however during my encounter, he did not want to be bothered. So not so much cooperative during phy sical exam. He remains afebrile. 11/16/2019 seen and examined patient. Denies having any fevers or chills. Denies having an y neck pain today. Is more cooperative today. We will follow if we can continue IV antibio tics as an outpatient. 11/17/2019 seen and examined patient. He does not want to be bothered today. He covered hi mself with his blanket. Overall however he denied any new symptoms. Scheduled Medications adult multivitamin with minerals/iron 1 tablet Oral Daily enoxaparin 40 mg Subcutaneous Daily famotidine 20 mg Oral BID insulin glargine 15 Units Subcutaneous QPM insulin lispro 0-6 Units Subcutaneous 4x Daily AC and HS lisinopril 10 mg Oral Daily vancomycin 1,250 mg Intravenous Q24H vancomycin per pharmacy Other Pharmacy Consult Continuous Infusions dextrose 10% PRN Medications acetaminophen, Hypoglycemia Management AND POCT Glucose AND dextrose AND dextro se 10%, HYDROcodone-acetaminophen, ondansetron OBJECTIVE Vital Signs: Vitals: 11/16/19 2223 11/17/19 0237 11/17/19 0500 11/17/19 0818 BP: 137/74 133/70 143/83 Pulse: 105 99 74 Resp: 18 18 16 Temp: 37.1 C (98.7 F) 37.1 C (98.8 F) 37.1 C (98.7 F) TempSrc: Oral Oral Oral SpO2: 100% 99% 99% Weight: 68.1 kg (150 lb 3.2 oz) Height: Physical Exam General appearance: alert, appears stated age and cooperative. Less engaging, no distress. Speaking in full sentences. Head: Normocephalic, without obvious abnormality, atraumatic Throat: lips, mucosa, and tongue normal; teeth and gums normal Neck: no adenopathy, no carotid bruit, no JVD, supple, symmetrical, trachea midline and thy roid not enlarged, symmetric, no tenderness/mass/nodules Lungs: clear to auscultation bilaterally Heart: regular rate and rhythm, S1, S2 normal, no murmur, click, rub or gallop Abdomen: soft, non-tender; bowel sounds normal; no masses, no organomegaly Extremities: extremities normal, atraumatic, no cyanosis or edema. Left BKA. Pulses: 2+ and symmetric Skin: Skin color, texture, turgor normal. No rashes or lesions Lymph nodes: Cervical, supraclavicular, and axillary nodes normal. Neurologic: Grossly normal DATA, personally reviewed Recent Labs Lab 11/16/1944911/12/19 1918 WBC 5.95 7.52 HGB 7.3* 7.3* HCT 23.6* 23.4* PLT 578* 514* MONOPCT 8.40 -- Recent Labs Lab 11/16/1944911/14/19 0811 11/13/19 0455 NA 137 137 137 K 4.2 4.4 4.0 CL 105 104 102 CO2 27 28 30 BUN 17 13 13 CALCIUM 9.0 8.3* 8.7 Lab Results Component Value Date CREA 1.4 (H) 11/16/2019 LABCREA 1.1 01/14/2018 Phosphorus: Lab Results Component Value Date PHOS 4.2 11/16/2019 Radiology, personally reviewed Mri Cervical Spine W Wo Contrast Result Date: 10/31/2019 1. Advanced right-sided facet degenerative changes spanning C2 through C5. At C4-C5 there is a facet joint effusion with mild associated enhancement which could represent advanced de generative changes versus septic joint. 2. Marked edema, asymmetric enlargement, in faint en hancement involving the right posterior neck musculature which appears to be somewhat center ed around the right C4-C5 facet joint. Findings are concerning for infection/myositis but c ould potentially represent sequela of previous injury. 3. No epidural abscess, phlegmonous c hanges, or evidence of discitis osteomyelitis. 4. Advanced cervical spondylosis at C3 throug h C5. Changes are worst at C3-C4 where there is moderate to severe narrowing of the spinal canal with mild compression of the cervical cord. No definite cord signal abnormality is se en at any level but evaluation is limited due to motion artifact on the sagittal T2 and STIR images. Signed by: Steve Maria Jace Sign Date/Time: 10/31/2019 11:01 PM PROBLEM LIST Principal Problem: Sepsis Active Problems: Essential hypertension Diabetes Neck pain Acute encephalopathy ASSESSMENT & PLAN Sepsis/streptococcal bacteremia/cervical spine facet arthritis No evidence of epidural abscess or discitis. No evidence of bone involvement. Appreciate input from infectious disease, Dr. Estrada. Continue IV vancomycin until 11/28/2019 . Patient cannot be released with the PICC line due to history of illicit drug use. Unfortunately, several [facility] rehabilitation centers denied admission. He is not a candidate for outpatient IV therapy. I had a long discussion with the patient regarding the length of treatment. Hypertension Blood pressures are within acceptable limits. Continue lisinopril. Type 2 diabetes Sugars are within acceptable limits. Continue Lantus 15 units nightly. Continue Humalog correctional scale. Acute on chronic kidney injury Avoid nephrotoxins. Monitor creatinine is stable. DVT prophylaxis: In place. GI prophylaxis: In place. Disposition: Inpatient. 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 Personal communication requested for any clarification. Jermaine Urias MD 11/17/2019 9:28 AM Erick Shankar RN - 11/16/2019 9:48 PM [id number]: pt a/o to all, vss. Refused po famotidine this evening. bg's monitored achs, tx per sliding scale. Up indep in room with crutches, stable on feet. Pt ref using vs tonight. 0530: pt slept quietly most of shift, end of shift chart review complete. Electronically si gned by Eirck Villalpando RN at 11/17/2019 5:49 AM PSTLucy Bauer RN - 11/16/2019 5 :32 PM PSTVSS throughout shift, pt cooperative, interactive, and compliant today. IV Vanco d ose adjusted per pharmacist after Vanco trough and dose given as ordered. Next trough due @1100. Hourly rounding otherwise uneventful. Lucy Bauer RN haLurdes garibay, PharmD - 11/16/2019 11:44 AM PST Vancomycin Dosing Per Pharmacy Subjective/Objective Kuldip Smith is a 54 y.o. male started on vancomycin 10/31 for sepsis. OSH blood culture s show Streptococcus bacteremia. MRI of cervical spine shows myositis. Per ID, plan for 28 d ays of vancomycin IV (stop date 11/28/19). Patient is not a candidate for home IV antibiotic due to h/o not following up as outpatient. Pertinent PMH: T2DM, h/o osteo/gangrene s/p L BKA Actual Weight: 72.9 kg (dosing weight) [place] Weight: 70.7 kg INDICATION: myositis, bacteremia GOAL trough: 15-20 mcg/mL CURRENT regimen: 1000 mg (13.7 mg/kg ABW) Q18H Additional antimicrobials: none Concurrent potentially nephrotoxic medications: none Recent Labs Lab 11/16/19 1045 11/16/19 0450 11/14/19 0811 11/13/19 1946 11/13/19 0455 11/12/19 1918 11/12/19 0711 WBC -- 5.95 -- -- -- 7.52 -- VANCOTROUGH 19.8 -- -- 21.8* -- -- 15.5 CREA -- 1.4* 1.4* -- 1.4* -- -- Estimated Creatinine Clearance: 59 mL/min (A) (based on SCr of 1.4 mg/dL (H)). 24-hr UOP: 0.3 mL/kg/hr Assessment/Plan Trough therapeutic at 19.8 mcg/mL, drawn prior to the 4th dose. Trough in the upper range o f goal 15-20. Renal function stable with SCr consistently at 1.4. UOP fluctuating daily. Aditya l change the regimen to vancomycin 1250 mg (17 mg/kg) Q24H. Will order a trough prior to the 4th dose. Next trough: 11/19 at 1100 Pharmacy will continue to follow and make adjustments to vancomycin therapy as indicated. Thank You, Frank BatistaD, [facility] [phone] (available [phone]) 11/16/2019 11:28 AM Jermaine Garcia MD - 11/16/2019 9:26 AM PST [facility] Service: Hospitalist Progress Note Hospital Day: LOS: 16 days SUBJECTIVE Patient Summary: 54-year-old male with history of type 2 diabetes, peripheral vascular disease, status post left BKA 2017, history of hypertension, history of recent drug use (me thamphetamine) who was transferred from [facility] where he presented with fev er, chills and worsening neck pain. Patient had leukocytosis. CAT scan of the neck was con cerning for C4-C5 septic arthritis. Neurosurgery was consulted and recommended medical sarah kellee with antibiotics. Infectious disease was consulted and recommended vancomycin for a total of 4 weeks. Last dose 11/28/2019. Will require a safe discharge to complete IV infusi on. Events Overnight: 11/15/2019 seen and examined patient. For the most part, neck pain is much improved however during my encounter, he did not want to be bothered. So not so much cooperative during phy sical exam. He remains afebrile. 11/16/2019 seen and examined patient. Denies having any fevers or chills. Denies having an y neck pain today. Is more cooperative today. We will follow if we can continue IV antibio tics as an outpatient. Scheduled Medications adult multivitamin with minerals/iron 1 tablet Oral Daily enoxaparin 40 mg Subcutaneous Daily famotidine 20 mg Oral BID insulin glargine 15 Units Subcutaneous QPM insulin lispro 0-6 Units Subcutaneous 4x Daily AC and HS lisinopril 10 mg Oral Daily vancomycin 1 g Intravenous Q18H vancomycin per pharmacy Other Pharmacy Consult Continuous Infusions dextrose 10% PRN Medications acetaminophen, Hypoglycemia Management AND POCT Glucose AND dextrose AND dextro se 10%, HYDROcodone-acetaminophen, ondansetron OBJECTIVE Vital Signs: Vitals: 11/15/19 1947 11/15/19200011/15/19232511/16/1914 BP: 159/83 103/56 123/73 Pulse: 85 83 84 Resp: 18 18 19 Temp: 37.2 C (99 F) 37.1 C (98.8 F) 36.8 C (98.3 F) TempSrc: Oral Oral Oral SpO2: 98% 96% 99% Weight: 67.8 kg (149 lb 8 oz) Height: Physical Exam General appearance: alert, appears stated age and cooperative. More engaging and brighter looking, no distress. Speaking in full sentences. Head: Normocephalic, without obvious abnormality, atraumatic Throat: lips, mucosa, and tongue normal; teeth and gums normal Neck: no adenopathy, no carotid bruit, no JVD, supple, symmetrical, trachea midline and thy roid not enlarged, symmetric, no tenderness/mass/nodules Lungs: clear to auscultation bilaterally Heart: regular rate and rhythm, S1, S2 normal, no murmur, click, rub or gallop Abdomen: soft, non-tender; bowel sounds normal; no masses, no organomegaly Extremities: extremities normal, atraumatic, no cyanosis or edema. Left BKA. Pulses: 2+ and symmetric Skin: Skin color, texture, turgor normal. No rashes or lesions Lymph nodes: Cervical, supraclavicular, and axillary nodes normal. Neurologic: Grossly normal DATA, personally reviewed Recent Labs Lab 11/16/19 0450 11/12/19 1918 WBC 5.95 7.52 HGB 7.3* 7.3* HCT 23.6* 23.4* PLT 578* 514* MONOPCT 8.40 -- Recent Labs Lab 11/16/19 0450 11/14/19 0811 11/13/19 0455 NA 137 137 137 K 4.2 4.4 4.0 CL 105 104 102 CO2 27 28 30 BUN 17 13 13 CALCIUM 9.0 8.3* 8.7 Lab Results Component Value Date CREA 1.4 (H) 11/16/2019 LABCREA 1.1 01/14/2018 Phosphorus: Lab Results Component Value Date PHOS 4.2 11/16/2019 Radiology, personally reviewed Mri Cervical Spine W Wo Contrast Result Date: 10/31/2019 1. Advanced right-sided facet degenerative changes spanning C2 through C5. At C4-C5 there is a facet joint effusion with mild associated enhancement which could represent advanced de generative changes versus septic joint. 2. Marked edema, asymmetric enlargement, in faint en hancement involving the right posterior neck musculature which appears to be somewhat center ed around the right C4-C5 facet joint. Findings are concerning for infection/myositis but c ould potentially represent sequela of previous injury. 3. No epidural abscess, phlegmonous c hanges, or evidence of discitis osteomyelitis. 4. Advanced cervical spondylosis at C3 throug h C5. Changes are worst at C3-C4 where there is moderate to severe narrowing of the spinal canal with mild compression of the cervical cord. No definite cord signal abnormality is se en at any level but evaluation is limited due to motion artifact on the sagittal T2 and STIR images. Signed by: Steve Maria Jace Sign Date/Time: 10/31/2019 11:01 PM PROBLEM LIST Principal Problem: Sepsis Active Problems: Essential hypertension Diabetes Neck pain Acute encephalopathy ASSESSMENT & PLAN Sepsis/streptococcal bacteremia/cervical spine facet arthritis No evidence of epidural abscess or discitis. No evidence of bone involvement. Appreciate input from infectious disease, Dr. Estrada. Continue IV vancomycin until 11/28/2019 . Patient cannot be released with the PICC line due to history of illicit drug use. Unfortunately, several [facility] rehabilitation centers denied admission. He is not a candidate for outpatient IV therapy. I had a long discussion with the patient regarding the length of treatment. Hypertension Blood pressures are within acceptable limits. Continue lisinopril. Type 2 diabetes Sugars are within acceptable limits. Continue Lantus 15 units nightly. Continue Humalog correctional scale. Acute on chronic kidney injury Avoid nephrotoxins. Monitor creatinine is stable. DVT prophylaxis: In place. GI prophylaxis: In place. Disposition: Inpatient. 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 Personal communication requested for any clarification. Jermaine Urias MD 11/16/2019 9:26 AM Lesly Benton R N - 11/15/2019 1:12 PM PST [facility] Service: Wound Care Follow Up Note Hospital Day: 15 Post-Op Day: No surgery found SUBJECTIVE Patient Summary: Wound care came to see Isaac today to follow up on the wound to his left lateral knee. OBJECTIVE 11/15/19 1310 Visit Information Visit Type Follow up visit Pain/Comfort Presence Of Pain denies pain/discomfort Wound 10/31/191746 Left lateral residual limb, LE abrasion Placement Date/Time: 10/31/191746 Present on Hospital Admission: Yes Side: Left [place] ation: lateral Location: residual limb, LE Wound Subtype: abrasion Wound WDL ex Base dry;scab Wound Length (cm) 1 cm Wound Width (cm) 1 cm Wound Depth (cm) (raised) Wound Surface Area (cm^2) 1 cm^2 Drainage Amount none Dressing open to air Visit Summary Next Wound/Ostomy Visit Date 02/23/20 PROBLEM LIST Patient Active Problem List Diagnosis Vitamin D deficiency Other chest pain Impotence Impairment level of vision Fracture, metacarpal Fracture, tooth Impetigo Diabetic neuropathy Vertigo Abnormal weight loss Essential hypertension Allergic rhinitis Cramp in limb Cellulitis and abscess of foot Onychia of toe Diabetes Diarrhea IgG Gliadin antibody positive Osteomyelitis Skin ulcer of right foot, limited to breakdown of skin Type 2 diabetes mellitus, with long-term current use of insulin Viral upper respiratory tract infection Sepsis Neck pain Acute encephalopathy ASSESSMENT & PLAN knee Wound: Dry scabbed abrasion. No need for wound care at this time. Please call if there are any additional questions. Lesly Butler RN, CMSRN, [facility] Inpatient Wound Ostomy Care [phone] 11/15/2019 1:12 PM Jermaine Cazares M D - 11/15/2019 8:44 AM PST [facility] Service: Hospitalist Progress Note Hospital Day: LOS: 15 days SUBJECTIVE Patient Summary: 54-year-old male with history of type 2 diabetes, peripheral vascular disease, status post left BKA 2017, history of hypertension, history of recent drug use (me thamphetamine) who was transferred from [facility] where he presented with fev er, chills and worsening neck pain. Patient had leukocytosis. CAT scan of the neck was con cerning for C4-C5 septic arthritis. Neurosurgery was consulted and recommended medical sarah gement with antibiotics. Infectious disease was consulted and recommended vancomycin for a total of 4 weeks. Last dose 11/28/2019. Will require a safe discharge to complete IV infusi on. Events Overnight: Seen and examined patient. For the most part, neck pain is much imp roved however during my encounter, he did not want to be bothered. So not so much cooperati ve during physical exam. He remains afebrile. Scheduled Medications adult multivitamin with minerals/iron 1 tablet Oral Daily enoxaparin 40 mg Subcutaneous Daily insulin glargine 15 Units Subcutaneous QPM insulin lispro 0-6 Units Subcutaneous 4x Daily AC and HS lisinopril 10 mg Oral Daily vancomycin 1 g Intravenous Q18H vancomycin per pharmacy Other Pharmacy Consult Continuous Infusions dextrose 10% PRN Medications acetaminophen, Hypoglycemia Management AND POCT Glucose AND dextrose AND dextro se 10%, HYDROcodone-acetaminophen, ondansetron OBJECTIVE Vital Signs: Vitals: 11/14/19200011/14/19 2342 11/15/19 0554 11/15/19 0807 BP: 129/80 111/58 117/72 112/63 Pulse: 89 81 77 81 Resp: 19 18 18 18 Temp: 37 C (98.6 F) 37.3 C (99.2 F) 36.9 C (98.4 F) 36.6 C (97.9 F) TempSrc: Oral Oral Axillary Axillary SpO2: 100% 100% 100% 97% Weight: Height: Physical Exam General appearance: alert, appears stated age and cooperative. Fatigued looking, no distre ss. Speaking in full sentences. Head: Normocephalic, without obvious abnormality, atraumatic Throat: lips, mucosa, and tongue normal; teeth and gums normal Neck: no adenopathy, no carotid bruit, no JVD, supple, symmetrical, trachea midline and thy roid not enlarged, symmetric, no tenderness/mass/nodules Lungs: clear to auscultation bilaterally Heart: regular rate and rhythm, S1, S2 normal, no murmur, click, rub or gallop Abdomen: soft, non-tender; bowel sounds normal; no masses, no organomegaly Extremities: extremities normal, atraumatic, no cyanosis or edema. Left BKA. Pulses: 2+ and symmetric Skin: Skin color, texture, turgor normal. No rashes or lesions Lymph nodes: Cervical, supraclavicular, and axillary nodes normal. Neurologic: Grossly normal DATA, personally reviewed Recent Labs Lab 11/12/19 1918 WBC 7.52 HGB 7.3* HCT 23.4* PLT 514* Recent Labs Lab 11/14/19 0811 11/13/19 0455 11/12/19 0516 NA 137 137 136 K 4.4 4.0 3.8 CL 104 102 100 CO2 28 30 29 BUN 13 13 14 CALCIUM 8.3* 8.7 8.5 Lab Results Component Value Date CREA 1.4 (H) 11/14/2019 LABCREA 1.1 01/14/2018 Phosphorus: Lab Results Component Value Date PHOS 3.5 11/14/2019 Radiology, personally reviewed Mri Cervical Spine W Wo Contrast Result Date: 10/31/2019 1. Advanced right-sided facet degenerative changes spanning C2 through C5. At C4-C5 there is a facet joint effusion with mild associated enhancement which could represent advanced de generative changes versus septic joint. 2. Marked edema, asymmetric enlargement, in faint en hancement involving the right posterior neck musculature which appears to be somewhat center ed around the right C4-C5 facet joint. Findings are concerning for infection/myositis but c ould potentially represent sequela of previous injury. 3. No epidural abscess, phlegmonous c hanges, or evidence of discitis osteomyelitis. 4. Advanced cervical spondylosis at C3 throug h C5. Changes are worst at C3-C4 where there is moderate to severe narrowing of the spinal canal with mild compression of the cervical cord. No definite cord signal abnormality is se en at any level but evaluation is limited due to motion artifact on the sagittal T2 and STIR images. Signed by: Steve Maria Jace Sign Date/Time: 10/31/2019 11:01 PM PROBLEM LIST Principal Problem: Sepsis Active Problems: Essential hypertension Diabetes Neck pain Acute encephalopathy ASSESSMENT & PLAN Sepsis/streptococcal bacteremia/cervical spine facet arthritis No evidence of epidural abscess or discitis. No evidence of bone involvement. Appreciate input from infectious disease, Dr. Estrada. Continue IV vancomycin until 11/28/2019 . Patient cannot be released with the PICC line due to history of illicit drug use. Unfortunately, several SNF rehabilitation centers denied admission. He is not a candidate for outpatient IV therapy. I had a long discussion with the patient regarding the length of treatment. It seems that in spite of several reminders, he does not quite get the importance of completing treatment. He is already expressing intention to leave the hospital sooner and might not be able to fi david treatment. He was discouraged in doing so. Hypertension Blood pressures are within acceptable limits. Continue lisinopril. Type 2 diabetes Sugars are within acceptable limits. Continue Lantus 15 units nightly. Continue Humalog correctional scale. Acute on chronic kidney injury Avoid nephrotoxins. Monitor creatinine. If creatinine worsens, will stop lisinopril and reassess vancomycin use. DVT prophylaxis: In place. GI prophylaxis: In place. Disposition: Inpatient. 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 Personal communication requested for any clarification. Jermaine Urias MD 11/15/2019 8:44 AM Shukri Figueroa MD - 11/14/2019 10:06 PM PST Service: Hospitalist Progress Note Hospital Day: LOS: 14 days SUBJECTIVE This is a 54-year-old male with history of heroin abuse, presented to the ED as a transfer from [facility] for high-grade fever, chills and intractable neck pain suppose dly from C4-C5 septic joint. Neurosurgery recommending conservative management with IV anti biotics at this time. Because of him being an IV drug abuser needing prolonged IV antibioti cs as evident from the note from infectious disease, presently on IV vancomycin, patient is in the hospital until a safe discharge plan could be formulated. No acute events over the ni ght. Scheduled Medications adult multivitamin with minerals/iron 1 tablet Oral Daily enoxaparin 40 mg Subcutaneous Daily insulin glargine 15 Units Subcutaneous QPM insulin lispro 0-6 Units Subcutaneous 4x Daily AC and HS lisinopril 10 mg Oral Daily vancomycin 1 g Intravenous Q18H vancomycin per pharmacy Other Pharmacy Consult Continuous Infusions dextrose 10% OBJECTIVE Vital Signs: Vitals with Comments 11/14/2019 11/14/2019 11/14/2019 11/14/2019 SYSTOLIC 120 97 131 129 DIASTOLIC 74 55 77 80 BP Comments - - - - Pulse 76 83 85 89 Temp 97.9 98.6 98.6 98.6 Temp Comments - - - - Resp 18 18 19 19 Weight - - - - Height - - - - SPO2 98 99 100 100 BMI - - - - Patient is awake, alert, oriented to time, place and person Skin: Warm and supple Neck: No JVD Chest: Normal vesicular breath sounds, good air entry bilaterally CVS: S1S2 audible, no murmurs heard Abdomen: Soft, non tender, normal bowel sounds, no organomegaly Extremities: No pedal edema, clubbing or cyanosis on the right. Left below-knee amputation . Neurologic examination: No focal sensory or motor deficits Back examination: No CVA tenderness, no spinal tenderness REVIEW OF SYSTEMS: denies any chest pain, shortness of breath, nausea, vomiting, diarrhea, dysuria, hematuria. DATA CBC: Lab Results Component Value Date WBC 7.52 11/12/2019 RBC 2.93 (L) 11/12/2019 RBC 5.47 01/14/2018 HGB 7.3 (L) 11/12/2019 HCT 23.4 (L) 11/12/2019 MCV 79.9 (L) 11/12/2019 PLT 514 (H) 11/12/2019 BMP: Lab Results Component Value Date NA 137 11/14/2019 K 4.4 11/14/2019 CL 104 11/14/2019 CO2 28 11/14/2019 BUN 13 11/14/2019 LABCREA 1.1 01/14/2018 CREA 1.4 (H) 11/14/2019 EGFR 53 (L) 11/14/2019 GLU 130 (H) 11/14/2019 Transthoracic echocardiogram had shown the following: Normal LV systolic function Mild enlargement of the ascending aorta No pulmonary hypertension No obvious vegetation MRI of the cervical spine with and without contrast had shown the following: IMPRESSION: 1. Advanced right-sided facet degenerative changes spanning C2 through C5. At C4-C5 there is a facet joint effusion with mild associated enhancement which could represent advanced degenerative changes versus septic joint. 2. Marked edema, asymmetric enlargement, in faint enhancement involving the right posterior neck musculature which appears to be somewhat centered around the right C4-C5 facet joint. Findings are concerning for infection/myositis but could potentially represent sequela of previous injury. 3. No epidural abscess, phlegmonous changes, or evidence of discitis osteomyelitis. 4. Advanced cervical spondylosis at C3 through C5. Changes are worst at C3-C4 where there is moderate to severe narrowing of the spinal canal with mild compression of the cervical cord. No definite cord signal abnormality is seen at any level but evaluation is limited due to motion artifact on the sagittal T2 and STIR images. MRSA naris positive. A1 C8. ASSESSMENT & PLAN Principal problem: C3-C4 osteomyelitis with being MRSA positive, outside hospital cultures growing Streptococc us agalactiae: Presently remains on 4 weeks of IV vancomycin. Patient has a peripheral IV l ine and cannot leave the hospital at this time because of his history of IV drug abuse with methamphetamine being positive. Patient does not qualify for sepsis as he only had a fever o f 101 F without any tachycardia, leukocytosis, tachypnea. Stop date of antibiotic is on ebruary 2019 Secondary diagnoses: Diabetes mellitus: Blood sugars have been on the higher side. Will advise 15 units of Lant us nightly along with insulin sliding scale 3 times a day with meals. Patient to continue w ith lisinopril. Mild elevation of creatinine: Stable. Continue to monitor. Continue supportive care otherwise. Advise Lovenox and SCDs for DVT prophylaxis. Disposition: Yet to be seen how he does with the current management. Prolonged hospital s ramandeep expected because of his history of drug abuse and requiring IV antibiotics at this time. Code Status: Full Code Shukri Crouch MD 11/14/2019 10:06 PM Rafat Kaplan, DO - 9:51 AM PST [facility] Service: Infectious Diseases Progress note Hospital Day: LOS 14 Post-op Day: * No surgery found * Subjective Patient Summary: 54-year-old male with history of prior left below-knee amputation, histor y of methamphetamine abuse, presented with strep agalactiae bacteremia with complications in cluding C3-C5 facet arthritis. The patient is written to receive vancomycin for a total of 4 weeks which will be completed on November 28. CC: Bacteremia, cervical facet arthritis Chart reviewed: No new events. Subjective The patient reports that he is feeling much better than he did when he came to the hospital . He denies any ongoing neck pain, able to move his neck without any difficulty. He denies any fever or chills. He is frustrated by remaining in the hospital and indicated that he w ants to be able to go home by next week. ROS No fever, chills sweats. No nausea, vomiting or diarrhea. No rashes or pruritis. No oral pa in. adult multivitamin with minerals/iron 1 tablet Oral Daily enoxaparin 40 mg Subcutaneous Daily insulin glargine 15 Units Subcutaneous QPM insulin lispro 0-6 Units Subcutaneous 4x Daily AC and HS lisinopril 10 mg Oral Daily vancomycin 1 g Intravenous Q18H vancomycin per pharmacy Other Pharmacy Consult PRN Medications: acetaminophen, Hypoglycemia Management AND POCT Glucose AND dextrose AND dextro se 10%, HYDROcodone-acetaminophen, ondansetron Current Facilty-Administered PRN Medications Ordered in Epic Medication Dose Route Frequency Provider Last Rate Last Dose acetaminophen (TYLENOL) tablet 650 mg 650 mg Oral Q4H PRN Lizbeth Finch MD 650 mg at 0 11/14/19 0013 dextrose 50% injection 12.5-25 g 12.5-25 g Intravenous PRN Chavo Butler MD And dextrose 10% (D10W) infusion Intravenous Continuous PRN Chavo Butler MD HYDROcodone-acetaminophen (NORCO) 5-325 mg per tablet 1-2 tablet 1-2 tablet Oral Q6H P RN Chavo Butler MD 2 tablet at 11/12/19 0831 ondansetron (ZOFRAN) injection 4 mg 4 mg Intravenous Q6H PRN Chavo Butler MD Objective: Vital Signs: BP 120/74 | Pulse 76 | Temp 36.6 C (97.9 F) (Oral) | Resp 18 | Ht 1.753 m (5' 9") | Wt 71.8 kg (158 lb 4.6 oz) | SpO2 98% | BMI 23.38 kg/m Temp: [36.6 C (97.9 F)-37.8 C (100 F)] 36.6 C (97.9 F) Pulse: [73-90] 76 Resp: [18] 18 BP: (120-144)/(70-87) 120/74 Exam: Const: Vitals reviewed. No acute distress Skin: No rashes, no edema ENT: No thrush. Lungs: CTAB, no rales or wheezes Heart: RRR, no murmur Abd: soft, NT, + bowel sounds Data: Recent Results (from the past 24 hour(s)) POC Glucose Result Value Ref Range Glucose, POC 213 (H) 65 - 99 mg/dL POC Glucose Result Value Ref Range Glucose, POC 215 (H) 65 - 99 mg/dL Vancomycin, Trough Result Value Ref Range Vancomycin, Trough 21.8 (HH) 10 - 20 ug/mL POC Glucose Result Value Ref Range Glucose, POC 198 (H) 65 - 99 mg/dL Imaging: No results found. Problem List: Principal Problem: Sepsis Active Problems: Essential hypertension Diabetes Neck pain Acute encephalopathy Assessment / Recommendations: Streptococcal bacteremia Blood cultures negative as of October 31. 4 weeks of treatment following clearance of bloo d cultures will be completed on November 28. Cervical spine facet arthritis No evidence of epidural abscess or discitis, bone involvement. Joint involvement should re spond to 4-week course of IV antibiotics as outlined above. I discussed with the patient teto ramirez rationale for the duration of treatment and the importance of staying through the completi on of treatment on November 28. I advised him that this is 2 more weeks, to which he replie d "so I need to be here for another month" and I clarified 2 more weeks multiple times but margarita ramirez continued to repeat the understanding that he needs to be here for another month. He ulti mately asked if anything was keeping him from walking out of here, and I advised him that he is free to do if he wishes but that I really hope he stays in complete his treatment to pre vent relapse which could have devastating consequences including quadriplegia or . History of methamphetamine abuse Not a candidate for outpatient IV therapy. The patient would be a candidate for placement in usp or swing bed for completion of IV antibiotics. Disposition: If placement is available, IV antibiotic orders will need to be adjusted due t o dose changes made by inpatient pharmacy in response to trough levels. Please contact ID s ervice for updated orders in the event that the patient is able to discharge to skilled nurs ing. Dr. Nuñez will assume Infectious Diseases followup starting Monday 11/13 and will check in toward the end of next week. Please call sooner with questions. Code Status: Full Code Rafat Estrada DO 11/14/19 Shukri Figueroa MD - 09/2020 10:17 PM PST Service: Hospitalist Progress Note Hospital Day: LOS: 13 days SUBJECTIVE No acute events over the night. Scheduled Medications adult multivitamin with minerals/iron 1 tablet Oral Daily enoxaparin 40 mg Subcutaneous Daily insulin glargine 15 Units Subcutaneous QPM insulin lispro 0-6 Units Subcutaneous 4x Daily AC and HS lisinopril 10 mg Oral Daily [START ON 11/14/2019] vancomycin 1 g Intravenous Q18H vancomycin per pharmacy Other Pharmacy Consult Continuous Infusions dextrose 10% OBJECTIVE Vital Signs: Vitals with Comments 11/13/2019 11/13/2019 11/13/2019 11/13/2019 SYSTOLIC 118 129 142 131 DIASTOLIC 54 80 87 74 BP Comments - - - - Pulse 94 87 90 84 Temp 98.8 98.2 98.5 99.9 Temp Comments - - - - Resp 18 18 18 18 Weight - - - - Height - - - - SPO2 99 98 100 99 BMI - - - - Patient is awake, alert, oriented to time, place and person Skin: Warm and supple Neck: No JVD Chest: Normal vesicular breath sounds, good air entry bilaterally CVS: S1S2 audible, no murmurs heard Abdomen: Soft, non tender, normal bowel sounds, no organomegaly Extremities: No pedal edema, clubbing or cyanosis on the right. Left below-knee amputation . Neurologic examination: No focal sensory or motor deficits Back examination: No CVA tenderness, no spinal tenderness REVIEW OF SYSTEMS: denies any chest pain, shortness of breath, nausea, vomiting, diarrhea, dysuria, hematuria. DATA CBC: Lab Results Component Value Date WBC 7.52 11/12/2019 RBC 2.93 (L) 11/12/2019 RBC 5.47 01/14/2018 HGB 7.3 (L) 11/12/2019 HCT 23.4 (L) 11/12/2019 MCV 79.9 (L) 11/12/2019 PLT 514 (H) 11/12/2019 BMP: Lab Results Component Value Date NA 137 11/13/2019 K 4.0 11/13/2019 CL 102 11/13/2019 CO2 30 11/13/2019 BUN 13 11/13/2019 LABCREA 1.1 01/14/2018 CREA 1.4 (H) 11/13/2019 EGFR 53 (L) 11/13/2019 GLU 126 (H) 11/13/2019 Transthoracic echocardiogram had shown the following: Normal LV systolic function Mild enlargement of the ascending aorta No pulmonary hypertension No obvious vegetation MRI of the cervical spine with and without contrast had shown the following: IMPRESSION: 1. Advanced right-sided facet degenerative changes spanning C2 through C5. At C4-C5 there is a facet joint effusion with mild associated enhancement which could represent advanced degenerative changes versus septic joint. 2. Marked edema, asymmetric enlargement, in faint enhancement involving the right posterior neck musculature which appears to be somewhat centered around the right C4-C5 facet joint. Findings are concerning for infection/myositis but could potentially represent sequela of previous injury. 3. No epidural abscess, phlegmonous changes, or evidence of discitis osteomyelitis. 4. Advanced cervical spondylosis at C3 through C5. Changes are worst at C3-C4 where there is moderate to severe narrowing of the spinal canal with mild compression of the cervical cord. No definite cord signal abnormality is seen at any level but evaluation is limited due to motion artifact on the sagittal T2 and STIR images. MRSA naris positive. A1c level 8 ASSESSMENT & PLAN Principal problem: C3-C4 osteomyelitis with being MRSA positive, outside hospital cultures growing Streptococc us agalactiae: Presently remains on 4 weeks of IV vancomycin. Patient has a peripheral IV l ine and cannot leave the hospital at this time because of his history of IV drug abuse with methamphetamine being positive. Patient does not qualify for sepsis as he only had a fever o f 101 F without any tachycardia, leukocytosis, tachypnea. Stop date of antibiotic is on ebru2019 Secondary diagnoses: Diabetes mellitus: Blood sugars have been on the higher side. Will advise 15 units of Lant us nightly along with insulin sliding scale 3 times a day with meals. Patient to continue w ith lisinopril. Mild elevation of creatinine: Stable. Continue to monitor. Continue supportive care otherwise. Advise Lovenox and SCDs for DVT prophylaxis. Disposition: Yet to be seen how he does with the current management. Prolonged hospital s ramandeep expected because of his history of drug abuse and requiring IV antibiotics at this time. Code Status: Full Code Shukri Crouch MD 11/13/2019 10:17 PM Lurdes Hernandez Phar mD - 11/13/2019 9:29 PM PST Vancomycin Dosing Per Pharmacy Subjective/Objective Kuldip Smith is a 54 y.o. male started on vancomycin 10/31 for sepsis. OSH blood culture s show Streptococcus bacteremia. MRI of cervical spine shows myositis. Per ID, plan for 28 d ays of vancomycin IV (stop date 11/28/19). Patient is not a candidate for home IV antibiotic due to h/o not following up as outpatient. Pertinent PMH: T2DM, h/o osteo/gangrene s/p L BKA Actual Weight: 72.9 kg (dosing weight) [place] Weight: 70.7 kg INDICATION: myositis, bacteremia GOAL trough: 15-20 mcg/mL CURRENT regimen: 750 mg (10.3 mg/kg ABW) Q12H Additional antimicrobials: none Concurrent potentially nephrotoxic medications: none Recent Labs Lab 11/13/19 1946 11/13/19 0455 11/12/19 1918 11/12/19 0711 11/12/19 0516 11/11/19 0546 11/10/19 1750 11/08/19 0523 11/07/19 0605 WBC -- -- 7.52 -- -- -- -- -- 8.32 8.25 VANCOTROUGH 21.8* -- -- 15.5 -- -- 19.8 -- -- 15.5 CREA -- 1.4* -- -- 1.4* 1.5* -- < > -- -- < > = values in this interval not displayed. Estimated Creatinine Clearance: 62 mL/min (A) (based on SCr of 1.4 mg/dL (H)). Vancomycin history 11/02-11/09 vanco 750 mg Q12H --> trough 15-16 mcg/mL (SCr 0.99-1.1), increased to trough 19.8 (SCr 1.3) Assessment/Plan Trough slightly supratherapeutic at 21.8 mcg/mL, drawn prior to the 4th dose. Morning dose was given ~45 minute late and trough was drawn slightly early. Actual trough may be closer t o 20 mcg/mL. Patient was previously stable on 750 mg Q12H with SCr of 0.99-1.1. However, SCr has been trending up to a max of 1.5 and holding steady at 1.4 today. Will change the regim en to vancomycin 1000 mg (13.7 mg/kg) Q18H, which will account for a 500 mg total daily dose reduction. Next trough: 11/16 at 0900 Pharmacy will continue to follow and make adjustments to vancomycin therapy as indicated. Thank You, Frank BatistaD, [facility] [phone] (available [phone]) 11/13/2019 8:32 PM Shukri Crouch MD - 11/12/2019 5:48 PM PST Service: Hospitalist Progress Note Hospital Day: LOS: 12 days SUBJECTIVE Patient resting comfortably in bed. No acute events over the night. Remains on IV vancom ycin via peripheral IV. Mentions that his neck swelling and pain has improved significantly being on the antibiotics now for close to 2 weeks. Infectious disease advising on IV antib iotics Scheduled Medications adult multivitamin with minerals/iron 1 tablet Oral Daily insulin lispro 0-6 Units Subcutaneous 4x Daily AC and HS lisinopril 10 mg Oral Daily vancomycin 750 mg Intravenous Q12H vancomycin per pharmacy Other Pharmacy Consult Continuous Infusions dextrose 10% OBJECTIVE Vital Signs: Vitals with Comments 11/12/2019 11/12/2019 11/12/2019 11/12/2019 SYSTOLIC 113 109 100 149 DIASTOLIC 61 55 61 70 BP Comments - - - - Pulse 83 80 79 78 Temp 98.1 99.1 98.1 98.4 Temp Comments - - - - Resp 16 16 16 18 Weight - - - - Height - - - - SPO2 96 98 99 99 BMI - - - - Patient is awake, alert, oriented to time, place and person Skin: Warm and supple Neck: No JVD Chest: Normal vesicular breath sounds, good air entry bilaterally CVS: S1S2 audible, no murmurs heard Abdomen: Soft, non tender, normal bowel sounds, no organomegaly Extremities: No pedal edema, clubbing or cyanosis on the right. Left below-knee amputation . Neurologic examination: No focal sensory or motor deficits Back examination: No CVA tenderness, no spinal tenderness REVIEW OF SYSTEMS: denies any chest pain, shortness of breath, nausea, vomiting, diarrhea, dysuria, hematuria. DATA CBC: Lab Results Component Value Date WBC 8.32 11/08/2019 RBC 3.22 (L) 11/08/2019 RBC 5.47 01/14/2018 HGB 8.5 (L) 11/08/2019 HCT 25.2 (L) 11/08/2019 MCV 78.2 (L) 11/08/2019 PLT 411 (H) 11/08/2019 BMP: Lab Results Component Value Date NA 136 11/12/2019 K 3.8 11/12/2019 CL 100 11/12/2019 CO2 29 11/12/2019 BUN 14 11/12/2019 LABCREA 1.1 01/14/2018 CREA 1.4 (H) 11/12/2019 EGFR 53 (L) 11/12/2019 GLU 226 (H) 11/12/2019 Transthoracic echocardiogram had shown the following: Normal LV systolic function Mild enlargement of the ascending aorta No pulmonary hypertension No obvious vegetation MRI of the cervical spine with and without contrast had shown the following: IMPRESSION: 1. Advanced right-sided facet degenerative changes spanning C2 through C5. At C4-C5 there is a facet joint effusion with mild associated enhancement which could represent advanced degenerative changes versus septic joint. 2. Marked edema, asymmetric enlargement, in faint enhancement involving the right posterior neck musculature which appears to be somewhat centered around the right C4-C5 facet joint. Findings are concerning for infection/myositis but could potentially represent sequela of previous injury. 3. No epidural abscess, phlegmonous changes, or evidence of discitis osteomyelitis. 4. Advanced cervical spondylosis at C3 through C5. Changes are worst at C3-C4 where there is moderate to severe narrowing of the spinal canal with mild compression of the cervical cord. No definite cord signal abnormality is seen at any level but evaluation is limited due to motion artifact on the sagittal T2 and STIR images. MRSA naris positive. ASSESSMENT & PLAN Principal problem: C3-C4 osteomyelitis with being MRSA positive, outside hospital cultures growing Streptococc us agalactiae: Presently remains on 4 weeks of IV vancomycin. Patient has a peripheral IV l ine and cannot leave the hospital at this time because of his history of IV drug abuse with methamphetamine being positive. Patient does not qualify for sepsis as he only had a fever o f 101 F without any tachycardia, leukocytosis, tachypnea. Secondary diagnoses: Diabetes mellitus: Blood sugars have been on the higher side. Will advise 15 units of Lant us nightly along with insulin sliding scale 3 times a day with meals. Patient to continue w ith lisinopril. Check A1c level. Mild elevation of creatinine: Continue to monitor. Continue supportive care otherwise. Advise Lovenox and SCDs for DVT prophylaxis. Disposition: Yet to be seen how he does with the current management. Prolonged hospital s ramandeep expected because of his history of drug abuse and requiring IV antibiotics at this time. Code Status: Full Code Shukri Crouch MD 11/12/2019 5:48 PM Kingsley Alaniz R PH - 11/12/2019 4:09 PM PST Vancomycin Dosing Per Pharmacy Subjective/Objective Kuldip Smith is a 54 y.o. male started on vancomycin 10/31 for sepsis. Additional antimicrobials: none Quadriplegic/Paraplegic: no Diabetes: yes Baseline Serum Creatinine: ~ 1.0-1.1 mg/dL Current Vital Signs: BP 100/61 | Pulse 79 | Temp 36.7 C (98.1 F) (Oral) | Resp 16 | Ht 1.753 m (5' 9") | Wt 72 kg (158 lb 11.2 oz) | SpO2 99% | BMI 23.44 kg/m Recent Labs Lab 11/12/19 0711 11/12/19 0516 11/11/19 0546 11/10/19 1750 11/10/19 0515 11/08/19 0523 11/07/19 0605 11/06/19 0458 WBC -- -- -- -- -- -- 8.32 8.25 7.14 VANCOTROUGH 15.5 -- -- 19.8 -- -- -- 15.5 -- CREA -- 1.4* 1.5* -- 1.3 < > -- -- 1.1 < > = values in this interval not displayed. Estimated Creatinine Clearance: 62 mL/min (A) (based on SCr of 1.4 mg/dL (H)). Microbiology Results (72 hrs) No results found for the last 72 hours. Vancomycin Dosing History Patient started on vancomycin on 10/31, has been stable on dose of 750 mg IV Q12H since 11/02 until today 11/10 his trough is increased at 19.8 and SCr has increased to 1.3 from 1.0 on 11/05 . Assessment/Plan -Vanco level came back at 15.5 on 11/12 @ 0711 which is within goal of 15-20 mcg/ml -Recent creatinine decrease along with ~15.5 hrs between vanco doses raises concern for inc reased clearance of vancomycin. -Kinetics show a T1/2 of 13.8 hrs and a Ke of 0.05. -Based on kinetics will change frequency from q18h to q12h to ensure level remains therapeu tic. -Next vanco dose today @ 2100 (750 mg Q12H) -level scheduled for 11/13 @ 2000 Pharmacy will continue to follow and make adjustments to vancomycin therapy as indicated. Thank You, Alexander. Eliseo RPH, 11/12/2019, 4:09 PM Eve Wallis MD - 11/11/2019 5:36 AM PST [facility] Service: Hospitalist Progress Note Hospital Day: LOS: 11 days SUBJECTIVE Patient Summary: From [facility] / [place] 11/05/19 The patient is a 54 y.o. male with significant past medical history of hypertension, diabet es mellitus type 2 currently diet controlled, history of peripheral vascular disease status post left BKA who recently had a nasal bleed s/p packing treated with steroid and antibiotic s went to [facility] with high-grade fever, chills, intractable neck pain withou t radiculopathy and found to have high-grade fever and leukocytosis with white count 30,000, CT scan of the neck was done which was concerning for infectious process case discussed wit h prior to admission, MRI of the neck with contrast didn't show abscess but showed C4-5 facet joint effusion possible septic arthritis, decision was made for 4 weeks of IV Va ncomycin. He was Meth positive so will need swing bed for IV antibiotics on discharge. Patient comfortable, sleeping, typically refuses conversation or exam and today was no different. Afebrile Scheduled Medications adult multivitamin with minerals/iron, 1 tablet, Oral, Daily lisinopril, 10 mg, Oral, Daily vancomycin, 750 mg, Intravenous, Q18H vancomycin per pharmacy, , Other, Pharmacy Consult PRN Medications acetaminophen, Hypoglycemia Management AND POCT Glucose AND dextrose AND dextro se 10%, HYDROcodone-acetaminophen, ondansetron OBJECTIVE Vital Signs: BP 134/77 | Pulse 73 | Temp 36.6 C (97.8 F) (Oral) | Resp 16 | Ht 1.753 m (5' 9") | Wt 72 kg (158 lb 11.2 oz) | SpO2 96% | BMI 23.44 kg/m Patient Vitals for the past 24 hrs: BP Temp Temp src Pulse Resp SpO2 11/11/19 1138 134/77 36.6 C (97.8 F) Oral 73 16 96 % 11/11/19 0755 104/58 37.2 C (99 F) Oral 86 16 98 % 11/11/19 0446 123/67 37.1 C (98.8 F) Oral 76 16 98 % 11/11/19 0022 128/73 37.4 C (99.3 F) Oral 79 18 98 % 11/10/19 2038 (!) 174/92 37.7 C (99.9 F) Oral 88 18 99 % 11/10/19 1630 173/77 36.7 C (98 F) Oral 86 18 97 % 14:LAST:1 78.6 kg (10/31/19 1637) Last: 72 kg (11/09/19 0350) Difference: -6.6kg Weight change: Intake/Output Summary (Last 24 hours) at 11/11/2019 1229 Last data filed at 11/11/2019 0400 Gross per 24 hour Intake 1319.75 ml Output 700 ml Net 619.75 ml Body mass index is 23.44 kg/m. Physical Exam Vitals signs and nursing note reviewed. Constitutional: Appearance: Normal appearance. Comments: Lying in bed, w/ covers over his head. Rsfuses exam, states he if fine and to leave him alone. HENT: Head: Normocephalic and atraumatic. Cardiovascular: Rate and Rhythm: Normal rate and regular rhythm. Pulmonary: Effort: Pulmonary effort is normal. Abdominal: General: There is no distension. Palpations: There is no mass. Skin: Coloration: Skin is not jaundiced. Findings: No rash. Psychiatric: Mood and Affect: Mood normal. Comments: Sleeping, refuses communication and exam. DATA No results for input(s): WBC, HGB, HCT, PLT, MCV in the last 72 hours. Invalid input(s): BANDSPCT Recent Labs Lab 11/11/19 0546 11/10/19 0515 11/09/19 0451 NA 136 135 135 K 3.8 3.7 3.4* CL 98* 100 101 CO2 30 29 30 ANIONGAP 12 10 7 BUN 13 11 10 CREA 1.5* 1.3 1.3 CALCIUM 9.0 8.7 8.2* ALBUMIN 2.2* 2.3* 2.2* PHOS 4.7 3.8 3.5 Recent Labs 11/11/19 0546 11/10/19 0515 11/09/19 0451 GLU 183* 186* 223* No results for input(s): TROPONIN, BNP in the last 72 hours. No results for input(s): PROTIME, INR, PTT in the last 168 hours. No results for input(s): IRON, TIBC, PCTSAT, FERRITIN, TSH, [id number], FOLATE in the last 168 hours. Recent Labs Lab 11/11/19 0546 CRP 8.1* ESR GREATER THAN 130 No results for input(s): AMYLASE, LIPASE in the last 168 hours. No results for input(s): TRIG, CHOL, HDL, LDL in the last 168 hours. No results for input(s): AMMONIA in the last 168 hours. Recent Results (from the past 360 hour(s)) MRI Cervical Spine w wo Contrast Narrative MRI CERVICAL SPINE WITHOUT AND WITH CONTRAST CLINICAL INFORMATION: Neck pain, bone destruction on xray. rule out abscess or osteo COMPARISON: CT neck 10/31/2019. PROCEDURE: Sagittal T2, axial T2, sagittal T1, axial T1, sagittal STIR, axial T1 enhanced, and sagittal T1 enhanced sequences. Contrast: 7 ML GADAVIST IV. FINDINGS: Motion artifact on the sagittal T2 and STIR images and axial images limits evaluation of the cervical cord. Alignment: None alignment is unchanged with mild anterolisthesis of C4-C5 and mild retrolisthesis C5-C6. Vertebrae and vertebral marrow signal: No marrow edema. No evidence of fracture. No evidence of discitis osteomyelitis. Cervicomedullary junction and cervical cord: Limited evaluation of the cervical cord due to motion artifact on the sagittal images. No definite cord signal alteration identified. Cervical disc levels: Mild to moderate disc height loss C5-C6. Advance multilevel facet arthropathy which is severe on the right at C2-C3, C3-C4, and C4-C5. As seen on the previous CT at C4-C5 there is an associated facet joint effusion with widening of the facet joint and mild enhancement on postcontrast images. Additionally, there is edema, face enhancement, and asymmetric enlargement throughout the right posterolateral neck musculature. No rim enhancing collection to suggest abscess formation. Combination of posterior disc protrusion and buckling of ligamentum flavum at C3-C4 result in moderate to severe narrowing of the spinal canal with mild compression of the cervical cord. No definite cord signal abnormality. Combination of a central disc protrusion and buckling of the ligamentum flavum at C4-C5 results in moderate narrowing of spinal canal with possible minimal cord compression versus ventral cord contouring. Mild retrolisthesis at C5-C6 mild contouring of the ventral cord. Paraspinal musculature and paravertebral soft tissues: See above Impression 1. Advanced right-sided facet degenerative changes spanning C2 through C5. At C4-C5 there is a facet joint effusion with mild associated enhancement which could represent advanced degenerative changes versus septic joint. 2. Marked edema, asymmetric enlargement, in faint enhancement involving the right posterior neck musculature which appears to be somewhat centered around the right C4-C5 facet joint. Findings are concerning for infection/myositis but could potentially represent sequela of previous injury. 3. No epidural abscess, phlegmonous changes, or evidence of discitis osteomyelitis. 4. Advanced cervical spondylosis at C3 through C5. Changes are worst at C3-C4 where there is moderate to severe narrowing of the spinal canal with mild compression of the cervical cord. No definite cord signal abnormality is seen at any level but evaluation is limited due to motion artifact on the sagittal T2 and STIR images. Signed by: Steve Maria Jace Sign Date/Time: 10/31/2019 11:01 PM Imaging: Imaging Reviewed. PROBLEM LIST Principal Problem: Sepsis Active Problems: Essential hypertension Diabetes Neck pain Acute encephalopathy Resolved Problems: * No resolved hospital problems. * ASSESSMENT & PLAN Waiting for placement for outpatient IV abx, though this is unlikely. Will most likely rec eive all IV abx in hospital. No new complaints. Continue current treatment. Appears comfort able in his room Sepsis likely secondary to right side neck infection/myositis, MRI neck was done. No abscess or osteomyelitis. MRSA screen is positive, he initially started Rocephin that was d/c and Vancomycin will be continued, Dr. Russell was consulted, leucocytosis had improving, culture from outside faci lity grew gram streptococcus agalacta, recommendation for 4 weeks of IV Vancomycin. Meth screen positive, though he denied IV drug abuse. Appreciate case management's assistance with placement Pain management with [place] Electrolyte replacement. Hypertension Resumed Lisinopril 10 mg daily Diabetes mellitus type 2 Diet controlled Anemia microcytic Likely iron defeciency, Continue oral iron, FOB. Acute renal failure Resolved Saline lock IV Left limb pressure injury (lateral side), Stage 2-3, Present on admission Per Wound Care "Wound care consulted to evaluate left limb pressure injury (lateral side). Patient initi ally refused assessment-stating there was no wound present. I asked if I could visually lo ok (photo on chart shows an ulceration). Patient agreed. Visual assessment shows a proba ble stage 2, possibly stage 3 PI. Patient believes its from his prosthetic. Recommend a new fitting. Patient refused-stated there was nothing wrong with his leg and does not want a dressing. Recommend: wound gel, plain aquacel and bordered foam dressing. Informed RN of patient's wishes and my recommendations: she will continue to work with patient on offlo ading and dressing application." Rachael Molina, MAXX, CWON 11/01/2019 DVT prophylaxis SCD and Heparin. Case management working on d/c to Swing bed for IV antibiotics. Disposition: Code Status: Full Code Eve Parkinson MD 11/11/2019 12:29 PM Kuldip Banks Pha rmD - 11/10/2019 7:19 PM PST Vancomycin Dosing Per Pharmacy Subjective/Objective Kuldip Smith is a 54 y.o. male started on vancomycin 10/31 for sepsis. Additional antimicrobials: none Quadriplegic/Paraplegic: no Diabetes: yes Baseline Serum Creatinine: ~ 1.0-1.1 mg/dL Current Vital Signs: BP 173/77 | Pulse 86 | Temp 36.7 C (98 F) (Oral) | Resp 18 | H t 1.753 m (5' 9") | Wt 72 kg (158 lb 11.2 oz) | SpO2 97% | BMI 23.44 kg/m Recent Labs Lab 11/10/19 1750 11/10/19 0515 11/09/19 0451 11/08/19 0523 11/07/19 0605 11/06/19 0458 11/05/19 0532 WBC -- -- -- 8.32 8.25 7.14 7.90 VANCOTROUGH 19.8 -- -- -- 15.5 -- 15.2 CREA -- 1.3 1.3 -- -- 1.1 0.99 Estimated Creatinine Clearance: 66 mL/min (based on SCr of 1.3 mg/dL). Microbiology Results (72 hrs) No results found for the last 72 hours. Vancomycin Dosing History Patient started on vancomycin on 10/31, has been stable on dose of 750 mg IV Q12H since 11/02 until today 11/10 his trough is increased at 19.8 and SCr has increased to 1.3 from 1.0 on 11/05 . Assessment/Plan Maintenance Dose: Based on patient specific kinetics (Ke, Vd), decreased renal function, an d trough at upper limit of range, will decrease the vancomycin interval to 750 mg IV q18h . Patient is planned to be on vancomycin for several more weeks, but has hx of IVDU so plan is to discharge him to swing bed. Rationale: Based on [facility] dosing nomogram, current renal function, and desired trough. Target trough: 15-20 mcg/ml Concurrent potentially nephrotoxic medications: none Culture monitoring: Will monitor culture(s) for growth, identification, and sensitivities. Plan for level: Plan to check level prior to 3rd dose @0700 on 11/12 or sooner if clinically indicated. Pharmacy will continue to follow and make adjustments to vancomycin therapy as indicated. Thank You, Kuldip Lowe, PharmD, 11/10/2019, 7:13 PM Eve Wallis MD - 11/10/2019 5:37 AM PST [facility] Service: Hospitalist Progress Note Hospital Day: LOS: 10 days SUBJECTIVE Patient Summary: From [facility] / [place] 11/05/19 The patient is a 54 y.o. male with significant past medical history of hypertension, diabet es mellitus type 2 currently diet controlled, history of peripheral vascular disease status post left BKA who recently had a nasal bleed s/p packing treated with steroid and antibiotic s went to [facility] with high-grade fever, chills, intractable neck pain withou t radiculopathy and found to have high-grade fever and leukocytosis with white count 30,000, CT scan of the neck was done which was concerning for infectious process case discussed wit h prior to admission, MRI of the neck with contrast didn't show abscess but showed C4-5 facet joint effusion possible septic arthritis, decision was made for 4 weeks of IV Va ncomycin. He was Meth positive so will need swing bed for IV antibiotics on discharge. 11/10/2019 Patient comfortable, sleeping, typically refuses conversation or exam. Afebrile Scheduled Medications adult multivitamin with minerals/iron, 1 tablet, Oral, Daily lisinopril, 10 mg, Oral, Daily vancomycin, 750 mg, Intravenous, Q12H vancomycin per pharmacy, , Other, Pharmacy Consult PRN Medications acetaminophen, Hypoglycemia Management AND POCT Glucose AND dextrose AND dextro se 10%, HYDROcodone-acetaminophen, ondansetron OBJECTIVE Vital Signs: BP 131/80 | Pulse 83 | Temp 36.9 C (98.5 F) (Oral) | Resp 19 | Ht 1.753 m (5' 9") | Wt 72 kg (158 lb 11.2 oz) | SpO2 99% | BMI 23.44 kg/m Patient Vitals for the past 24 hrs: BP Temp Temp src Pulse Resp SpO2 11/10/19 0749 131/80 36.9 C (98.5 F) Oral 83 19 99 % 11/10/19 0525 126/62 37.2 C (99 F) Oral 79 18 99 % 11/09/19 2349 128/78 37.3 C (99.1 F) Oral 104 18 100 % 11/09/192000 (!) 170/91 37.6 C (99.6 F) Oral 100 20 100 % 11/09/19 1510 (!) 173/93 11/09/19 1509 (!) 176/103 11/09/19 1506 (!) 175/94 37 C (98.6 F) Oral 89 20 100 % 11/09/19 1100 123/69 36.9 C (98.5 F) Oral 82 16 99 % 14:LAST:1 78.6 kg (10/31/19 1637) Last: 72 kg (11/09/19 0350) Difference: -6.6kg Weight change: Intake/Output Summary (Last 24 hours) at 11/10/2019 0947 Last data filed at 11/10/2019 0800 Gross per 24 hour Intake 1749 ml Output 2400 ml Net -651 ml Body mass index is 23.44 kg/m. Physical Exam Vitals signs and nursing note reviewed. Constitutional: Appearance: Normal appearance. Comments: Lying in bed, w/ covers over his head. Rsfuses exam, states he if fine and to leave him alone. HENT: Head: Normocephalic and atraumatic. Cardiovascular: Rate and Rhythm: Normal rate and regular rhythm. Pulmonary: Effort: Pulmonary effort is normal. Abdominal: General: There is no distension. Palpations: There is no mass. Skin: Coloration: Skin is not jaundiced. Findings: No rash. Psychiatric: Mood and Affect: Mood normal. Behavior: Behavior normal. Comments: Sleeping, refuses communication and exam. DATA Recent Labs 11/08/19 0523 WBC 8.32 HGB 8.5* HCT 25.2* PLT 411* MCV 78.2* Recent Labs Lab 11/10/19 0515 11/09/19 0451 11/07/19 0605 11/06/19 0458 NA 135 135 -- -- 141 K 3.7 3.4* 3.5 < > 3.2* CL 100 101 -- -- 107 CO2 29 30 -- -- 29 ANIONGAP 10 7 -- -- 8 BUN 11 10 -- -- 8 CREA 1.3 1.3 -- -- 1.1 CALCIUM 8.7 8.2* -- -- 8.0* ALBUMIN 2.3* 2.2* -- -- -- PHOS 3.8 3.5 -- -- -- < > = values in this interval not displayed. Recent Labs 11/10/19 0515 11/09/19 0451 GLU 186* 223* No results for input(s): TROPONIN, BNP in the last 72 hours. No results for input(s): PROTIME, INR, PTT in the last 168 hours. No results for input(s): IRON, TIBC, PCTSAT, FERRITIN, TSH, [id number], FOLATE in the last 168 hours. Recent Labs Lab 11/04/19 0610 CRP 12.9* ESR 116* No results for input(s): AMYLASE, LIPASE in the last 168 hours. No results for input(s): TRIG, CHOL, HDL, LDL in the last 168 hours. No results for input(s): AMMONIA in the last 168 hours. Recent Results (from the past 360 hour(s)) MRI Cervical Spine w wo Contrast Narrative MRI CERVICAL SPINE WITHOUT AND WITH CONTRAST CLINICAL INFORMATION: Neck pain, bone destruction on xray. rule out abscess or osteo COMPARISON: CT neck 10/31/2019. PROCEDURE: Sagittal T2, axial T2, sagittal T1, axial T1, sagittal STIR, axial T1 enhanced, and sagittal T1 enhanced sequences. Contrast: 7 ML GADAVIST IV. FINDINGS: Motion artifact on the sagittal T2 and STIR images and axial images limits evaluation of the cervical cord. Alignment: None alignment is unchanged with mild anterolisthesis of C4-C5 and mild retrolisthesis C5-C6. Vertebrae and vertebral marrow signal: No marrow edema. No evidence of fracture. No evidence of discitis osteomyelitis. Cervicomedullary junction and cervical cord: Limited evaluation of the cervical cord due to motion artifact on the sagittal images. No definite cord signal alteration identified. Cervical disc levels: Mild to moderate disc height loss C5-C6. Advance multilevel facet arthropathy which is severe on the right at C2-C3, C3-C4, and C4-C5. As seen on the previous CT at C4-C5 there is an associated facet joint effusion with widening of the facet joint and mild enhancement on postcontrast images. Additionally, there is edema, face enhancement, and asymmetric enlargement throughout the right posterolateral neck musculature. No rim enhancing collection to suggest abscess formation. Combination of posterior disc protrusion and buckling of ligamentum flavum at C3-C4 result in moderate to severe narrowing of the spinal canal with mild compression of the cervical cord. No definite cord signal abnormality. Combination of a central disc protrusion and buckling of the ligamentum flavum at C4-C5 results in moderate narrowing of spinal canal with possible minimal cord compression versus ventral cord contouring. Mild retrolisthesis at C5-C6 mild contouring of the ventral cord. Paraspinal musculature and paravertebral soft tissues: See above Impression 1. Advanced right-sided facet degenerative changes spanning C2 through C5. At C4-C5 there is a facet joint effusion with mild associated enhancement which could represent advanced degenerative changes versus septic joint. 2. Marked edema, asymmetric enlargement, in faint enhancement involving the right posterior neck musculature which appears to be somewhat centered around the right C4-C5 facet joint. Findings are concerning for infection/myositis but could potentially represent sequela of previous injury. 3. No epidural abscess, phlegmonous changes, or evidence of discitis osteomyelitis. 4. Advanced cervical spondylosis at C3 through C5. Changes are worst at C3-C4 where there is moderate to severe narrowing of the spinal canal with mild compression of the cervical cord. No definite cord signal abnormality is seen at any level but evaluation is limited due to motion artifact on the sagittal T2 and STIR images. Signed by: Steve Maria Jace Sign Date/Time: 10/31/2019 11:01 PM Imaging: Imaging Reviewed. PROBLEM LIST Principal Problem: Sepsis Active Problems: Essential hypertension Diabetes Neck pain Acute encephalopathy Resolved Problems: * No resolved hospital problems. * ASSESSMENT & PLAN Waiting for placement for outpatient IV abx. No new complaints. Continue current treatment. Appears comfortable in his room Sepsis likely secondary to right side neck infection/myositis, MRI neck was done. No abscess or osteomyelitis. MRSA screen is positive, he initially started Rocephin that was d/c and Vancomycin will be continued, Dr. Russell was consulted, leucocytosis had improving, culture from outside faci lity grew gram streptococcus agalacta, recommendation for 4 weeks of IV Vancomycin. Meth screen positive, though he denied IV drug abuse. Appreciate case management's assistance with placement Pain management with [place] Electrolyte replacement. Hypertension Resumed Lisinopril 10 mg daily Diabetes mellitus type 2 Diet controlled Anemia microcytic Likely iron defeciency, Continue oral iron, FOB. Acute renal failure Resolved Saline lock IV Left limb pressure injury (lateral side), Stage 2-3, Present on admission Per Wound Care "Wound care consulted to evaluate left limb pressure injury (lateral side). Patient initi ally refused assessment-stating there was no wound present. I asked if I could visually lo ok (photo on chart shows an ulceration). Patient agreed. Visual assessment shows a proba ble stage 2, possibly stage 3 PI. Patient believes its from his prosthetic. Recommend a new fitting. Patient refused-stated there was nothing wrong with his leg and does not want a dressing. Recommend: wound gel, plain aquacel and bordered foam dressing. Informed RN of patient's wishes and my recommendations: she will continue to work with patient on offlo ading and dressing application." Rachael Molina RN, ON 11/01/2019 DVT prophylaxis SCD and Heparin. Case management working on d/c to Swing bed for IV antibiotics. Disposition: Code Status: Full Code Eve Parkinson MD 11/10/2019 9:47 AM [facility] 11/09/[facility] 6:32 PM PST Vancomycin Dosing Per Pharmacy Subjective/Objective Kuldip Smith is a 54 y.o. male started on vancomycin 10/31 for sepsis. Additional antimicrobials: none Quadriplegic/Paraplegic: no Diabetes: yes Baseline Serum Creatinine: ~ 1.1 mg/dL Current Vital Signs: BP (!) 173/93 | Pulse 89 | Temp 37 C (98.6 F) (Oral) | Resp 20 | Ht 1.753 m (5' 9") | Wt 72 kg (158 lb 11.2 oz) | SpO2 100% | BMI 23.44 kg/m Recent Labs Lab 11/09/19 0451 11/08/19 0523 11/07/19 0605 11/06/19 0458 11/05/19 0532 11/03/19 1719 WBC -- 8.32 8.25 7.14 7.90 < > -- VANCOTROUGH -- -- 15.5 -- 15.2 -- 16.4 CREA 1.3 -- -- 1.1 0.99 -- -- < > = values in this interval not displayed. Estimated Creatinine Clearance: 66 mL/min (based on SCr of 1.3 mg/dL). Microbiology Results (72 hrs) No results found for the last 72 hours. Vancomycin Dosing History Patient started on vancomycin on 10/31, has been stable on dose of 750 mg IV Q12H since 11/02 Assessment/Plan Maintenance Dose: 750 mg IV q12h Rationale: Based on [facility] dosing nomogram, current renal function, and desired trough. Target trough: 15-20 mcg/ml Concurrent potentially nephrotoxic medications: none Culture monitoring: Will monitor culture(s) for growth, identification, and sensitivities. Plan for level: 11/11 at 0530. Will consider an earlier trough only if serum creatinine con tinues to increase tomorrow. Pharmacy will continue to follow and make adjustments to vancomycin therapy as indicated. Thank You, MONTSERRAT RICE [facility], 11/09/2019, 6:27 PM Eve Wallis MD - 11/09/2019 5:41 AM PST [facility] Service: Hospitalist Progress Note Hospital Day: LOS: 9 days SUBJECTIVE Patient Summary: From [facility] / [place] 11/05/19 The patient is a 54 y.o. male with significant past medical history of hypertension, diabet es mellitus type 2 currently diet controlled, history of peripheral vascular disease status post left BKA who recently had a nasal bleed s/p packing treated with steroid and antibiotic s went to [facility] with high-grade fever, chills, intractable neck pain withou t radiculopathy and found to have high-grade fever and leukocytosis with white count 30,000, CT scan of the neck was done which was concerning for infectious process case discussed wit h prior to admission, MRI of the neck with contrast didn't show abscess but showed C4-5 facet joint effusion possible septic arthritis, decision was made for 4 weeks of IV Va ncomycin. He was Meth positive so will need swing bed for IV antibiotics on discharge. 11/09/2019 Patient comfortable, sleeping, refuses conversation or exam. Afebrile Scheduled Medications adult multivitamin with minerals/iron, 1 tablet, Oral, Daily lisinopril, 10 mg, Oral, Daily vancomycin, 750 mg, Intravenous, Q12H vancomycin per pharmacy, , Other, Pharmacy Consult PRN Medications acetaminophen, Hypoglycemia Management AND POCT Glucose AND dextrose AND dextro se 10%, HYDROcodone-acetaminophen, ondansetron OBJECTIVE Vital Signs: BP 133/78 | Pulse 76 | Temp 37.1 C (98.8 F) (Oral) | Resp 16 | Ht 1.753 m (5' 9") | Wt 72 kg (158 lb 11.2 oz) | SpO2 99% | BMI 23.44 kg/m Patient Vitals for the past 24 hrs: BP Temp Temp src Pulse Resp SpO2 Weight 11/09/19 0817 133/78 37.1 C (98.8 F) Oral 76 16 99 % 11/09/19 0350 129/78 36.9 C (98.5 F) Oral 75 16 97 % 72 kg (158 lb 11.2 oz) 11/08/19 2359 159/82 37.1 C (98.8 F) Oral 76 16 95 % 11/08/19 1944 137/65 37.7 C (99.9 F) Oral 89 16 100 % 11/08/19 1602 134/83 37.1 C (98.8 F) Oral 87 16 99 % 11/08/19 1132 133/85 37.3 C (99.1 F) Oral 89 20 100 % 14:LAST:1 78.6 kg (10/31/19 1637) Last: 72 kg (11/09/19 0350) Difference: -6.6kg Weight change: 0.726 kg (1 lb 9.6 oz) Intake/Output Summary (Last 24 hours) at 11/09/2019 1022 Last data filed at 11/09/2019 0819 Gross per 24 hour Intake 2012 ml Output 1575 ml Net 437 ml Body mass index is 23.44 kg/m. Physical Exam Vitals signs and nursing note reviewed. Constitutional: Appearance: Normal appearance. Comments: Lying in bed, w/ covers over his head. Rsfuses exam, states he if fine and to leave him alone. HENT: Head: Normocephalic and atraumatic. Cardiovascular: Rate and Rhythm: Normal rate and regular rhythm. Pulmonary: Effort: Pulmonary effort is normal. Abdominal: General: There is no distension. Palpations: There is no mass. Skin: Coloration: Skin is not jaundiced. Findings: No rash. Psychiatric: Mood and Affect: Mood normal. Behavior: Behavior normal. Comments: Sleeping, refuses communication and exam. DATA Recent Labs 11/08/19 0523 11/07/19 0605 WBC 8.32 8.25 HGB 8.5* 7.8* HCT 25.2* 23.7* PLT 411* 355 MCV 78.2* 78.5* Recent Labs Lab 11/09/19 0451 11/07/19 0605 11/06/19 1308 11/06/19 0458 11/05/19 0532 11/03/19 0419 NA 135 -- -- 141 138 -- 137 K 3.4* 3.5 3.4* 3.2* 3.2* < > 3.3* CL 101 -- -- 107 101 -- 105 CO2 30 -- -- 29 26 -- 25 ANIONGAP 7 -- -- 8 14 -- 10 BUN 10 -- -- 8 8 -- 9 CREA 1.3 -- -- 1.1 0.99 -- 1.07 CALCIUM 8.2* -- -- 8.0* 8.2* -- 7.8* ALBUMIN 2.2* -- -- -- -- -- 3.1* ALKPHOS -- -- -- -- -- -- 141* ALT -- -- -- -- -- -- 13 AST -- -- -- -- -- -- 15 PHOS 3.5 -- -- -- -- -- -- < > = values in this interval not displayed. Recent Labs 11/09/19 0451 GLU 223* No results for input(s): TROPONIN, BNP in the last 72 hours. No results for input(s): PROTIME, INR, PTT in the last 168 hours. No results for input(s): IRON, TIBC, PCTSAT, FERRITIN, TSH, [id number], FOLATE in the last 168 hours. Recent Labs Lab 11/04/19 0610 11/03/19 0419 CRP 12.9* 14.3* ESR 116* 118* No results for input(s): AMYLASE, LIPASE in the last 168 hours. No results for input(s): TRIG, CHOL, HDL, LDL in the last 168 hours. No results for input(s): AMMONIA in the last 168 hours. Recent Results (from the past 360 hour(s)) MRI Cervical Spine w wo Contrast Narrative MRI CERVICAL SPINE WITHOUT AND WITH CONTRAST CLINICAL INFORMATION: Neck pain, bone destruction on xray. rule out abscess or osteo COMPARISON: CT neck 10/31/2019. PROCEDURE: Sagittal T2, axial T2, sagittal T1, axial T1, sagittal STIR, axial T1 enhanced, and sagittal T1 enhanced sequences. Contrast: 7 ML GADAVIST IV. FINDINGS: Motion artifact on the sagittal T2 and STIR images and axial images limits evaluation of the cervical cord. Alignment: None alignment is unchanged with mild anterolisthesis of C4-C5 and mild retrolisthesis C5-C6. Vertebrae and vertebral marrow signal: No marrow edema. No evidence of fracture. No evidence of discitis osteomyelitis. Cervicomedullary junction and cervical cord: Limited evaluation of the cervical cord due to motion artifact on the sagittal images. No definite cord signal alteration identified. Cervical disc levels: Mild to moderate disc height loss C5-C6. Advance multilevel facet arthropathy which is severe on the right at C2-C3, C3-C4, and C4-C5. As seen on the previous CT at C4-C5 there is an associated facet joint effusion with widening of the facet joint and mild enhancement on postcontrast images. Additionally, there is edema, face enhancement, and asymmetric enlargement throughout the right posterolateral neck musculature. No rim enhancing collection to suggest abscess formation. Combination of posterior disc protrusion and buckling of ligamentum flavum at C3-C4 result in moderate to severe narrowing of the spinal canal with mild compression of the cervical cord. No definite cord signal abnormality. Combination of a central disc protrusion and buckling of the ligamentum flavum at C4-C5 results in moderate narrowing of spinal canal with possible minimal cord compression versus ventral cord contouring. Mild retrolisthesis at C5-C6 mild contouring of the ventral cord. Paraspinal musculature and paravertebral soft tissues: See above Impression 1. Advanced right-sided facet degenerative changes spanning C2 through C5. At C4-C5 there is a facet joint effusion with mild associated enhancement which could represent advanced degenerative changes versus septic joint. 2. Marked edema, asymmetric enlargement, in faint enhancement involving the right posterior neck musculature which appears to be somewhat centered around the right C4-C5 facet joint. Findings are concerning for infection/myositis but could potentially represent sequela of previous injury. 3. No epidural abscess, phlegmonous changes, or evidence of discitis osteomyelitis. 4. Advanced cervical spondylosis at C3 through C5. Changes are worst at C3-C4 where there is moderate to severe narrowing of the spinal canal with mild compression of the cervical cord. No definite cord signal abnormality is seen at any level but evaluation is limited due to motion artifact on the sagittal T2 and STIR images. Signed by: Steve Maria Jace Sign Date/Time: 10/31/2019 11:01 PM Imaging: Imaging Reviewed. PROBLEM LIST Principal Problem: Sepsis Active Problems: Essential hypertension Diabetes Neck pain Acute encephalopathy Resolved Problems: * No resolved hospital problems. * ASSESSMENT & PLAN Waiting for placement for outpatient IV abx. No new complaints. Continue current treatment. Sepsis likely secondary to right side neck infection/myositis, MRI neck was done. No abscess or osteomyelitis. MRSA screen is positive, he initially started Rocephin that was d/c and Vancomycin will be continued, Dr. Russell was consulted, leucocytosis had improving, culture from outside faci lity grew gram streptococcus agalacta, recommendation for 4 weeks of IV Vancomycin. Meth screen positive, though he denied IV drug abuse. Appreciate case management's assistance with placement Pain management with [place] Electrolyte replacement. Hypertension Resumed Lisinopril 10 mg daily Diabetes mellitus type 2 Diet controlled Anemia microcytic Likely iron defeciency, Continue oral iron, FOB. Acute renal failure Resolved Saline lock IV Left limb pressure injury (lateral side), Stage 2-3, Present on admission Per Wound Care "Wound care consulted to evaluate left limb pressure injury (lateral side). Patient eric jamesy refused assessment-stating there was no wound present. I asked if I could visually lo ok (photo on chart shows an ulceration). Patient agreed. Visual assessment shows a proba ble stage 2, possibly stage 3 PI. Patient believes its from his prosthetic. Recommend a new fitting. Patient refused-stated there was nothing wrong with his leg and does not want a dressing. Recommend: wound gel, plain aquacel and bordered foam dressing. Informed RN of patient's wishes and my recommendations: she will continue to work with patient on offlo ading and dressing application." Rachael Molina RN, CWON 11/01/2019 DVT prophylaxis SCD and Heparin. Case management working on d/c to Swing bed for IV antibiotics. Disposition: Code Status: Full Code Eve Parkinson MD 11/09/2019 10:22 AM ve Parkinson MD - 11/08/2019 10:53 AM PST [facility] Service: Hospitalist Progress Note Hospital Day: LOS: 8 days SUBJECTIVE Patient Summary: From [facility] / [place] 11/05/19 The patient is a 54 y.o. male with significant past medical history of hypertension, diabet es mellitus type 2 currently diet controlled, history of peripheral vascular disease status post left BKA who recently had a nasal bleed s/p packing treated with steroid and antibiotic s went to [facility] with high-grade fever, chills, intractable neck pain withou t radiculopathy and found to have high-grade fever and leukocytosis with white count 30,000, CT scan of the neck was done which was concerning for infectious process case discussed wit margarita Alarcon prior to admission, MRI of the neck with contrast didn't show abscess but showed C4-5 facet joint effusion possible septic arthritis, decision was made for 4 weeks of IV Va ncomycin. He was Meth positive so will need swing bed for IV antibiotics on discharge. 11/08/2019 Patient comfortable. Has a generalized mild itch. Afebrile Scheduled Medications adult multivitamin with minerals/iron, 1 tablet, Oral, Daily lisinopril, 10 mg, Oral, Daily vancomycin, 750 mg, Intravenous, Q12H vancomycin per pharmacy, , Other, Pharmacy Consult PRN Medications acetaminophen, Hypoglycemia Management AND POCT Glucose AND dextrose AND dextro se 10%, HYDROcodone-acetaminophen, ondansetron OBJECTIVE Vital Signs: BP 160/90 | Pulse 85 | Temp 37.3 C (99.2 F) (Oral) | Resp 20 | Ht 1.753 m (5' 9") | Wt 71.3 kg (157 lb 1.6 oz) | SpO2 99% | BMI 23.20 kg/m Patient Vitals for the past 24 hrs: BP Temp Temp src Pulse Resp SpO2 Weight 11/08/19 0804 160/90 37.3 C (99.2 F) Oral 85 20 99 % 11/08/19 0406 132/75 37.6 C (99.6 F) Oral 98 20 99 % 71.3 kg (157 lb 1.6 oz) 11/07/19 2331 133/66 36.9 C (98.4 F) Oral 84 16 97 % 11/07/19 1953 165/82 37.6 C (99.6 F) Oral 75 16 98 % 11/07/19 1538 138/73 37 C (98.6 F) Oral 74 16 99 % 11/07/19 1058 142/77 36.7 C (98 F) Oral 105 16 100 % 14:LAST:1 78.6 kg (10/31/19 1637) Last: 71.3 kg (11/08/19 0406) Difference: -7.3kg Weight change: -4.54 kg (-10 lb 0.1 oz) Intake/Output Summary (Last 24 hours) at 11/08/2019 1053 Last data filed at 11/08/2019 0638 Gross per 24 hour Intake 260 ml Output 2715 ml Net -2455 ml Body mass index is 23.2 kg/m. Physical Exam Vitals signs and nursing note reviewed. Constitutional: Appearance: Normal appearance. Comments: Lying in bed, w/ covers over his head. Rsfuses exam, states he if fine and to leave him alone. HENT: Head: Normocephalic and atraumatic. Eyes: Extraocular Movements: Extraocular movements intact. Pupils: Pupils are equal, round, and reactive to light. Cardiovascular: Rate and Rhythm: Normal rate and regular rhythm. Pulses: Normal pulses. Heart sounds: Normal heart sounds. Pulmonary: Effort: Pulmonary effort is normal. Abdominal: General: There is no distension. Palpations: There is no mass. Skin: Coloration: Skin is not jaundiced. Findings: No rash. Neurological: General: No focal deficit present. Mental Status: He is oriented to person, place, and time. Psychiatric: Mood and Affect: Mood normal. Behavior: Behavior normal. Comments: Sleeping, refuses communication and exam. DATA Recent Labs 11/08/19 0523 11/07/19 06 WBC 8.32 8.25 HGB 8.5* 7.8* HCT 25.2* 23.7* PLT 411* 355 MCV 78.2* 78.5* Recent Labs Lab 11/07/19 0605 11/06/19 1308 11/06/19 0458 11/05/19 0532 11/03/19 0419 11/02/19 0438 NA -- -- 141 138 -- 137 -- 135 K 3.5 3.4* 3.2* 3.2* < > 3.3* < > 3.3* CL -- -- 107 101 -- 105 -- 104 CO2 -- -- 29 26 -- 25 -- 22* ANIONGAP -- -- 8 14 -- 10 -- 12 BUN -- -- 8 8 -- 9 -- 15 CREA -- -- 1.1 0.99 -- 1.07 -- 1.14 CALCIUM -- -- 8.0* 8.2* -- 7.8* -- 7.9* ALBUMIN -- -- -- -- -- 3.1* -- 3.1* ALKPHOS -- -- -- -- -- 141* -- 98 ALT -- -- -- -- -- 13 -- 12 AST -- -- -- -- -- 15 -- 16 MG -- -- -- -- -- -- -- 1.9 < > = values in this interval not displayed. Recent Labs 11/06/19 045 GLU 131* No results for input(s): TROPONIN, BNP in the last 72 hours. No results for input(s): PROTIME, INR, PTT in the last 168 hours. No results for input(s): IRON, TIBC, PCTSAT, FERRITIN, TSH, [id number], FOLATE in the last 168 hours. Recent Labs Lab 11/04/19 0610 11/03/19418 CRP 12.9* 14.3* ESR 116* 118* No results for input(s): AMYLASE, LIPASE in the last 168 hours. No results for input(s): TRIG, CHOL, HDL, LDL in the last 168 hours. No results for input(s): AMMONIA in the last 168 hours. Recent Results (from the past 360 hour(s)) MRI Cervical Spine w wo Contrast Narrative MRI CERVICAL SPINE WITHOUT AND WITH CONTRAST CLINICAL INFORMATION: Neck pain, bone destruction on xray. rule out abscess or osteo COMPARISON: CT neck 10/31/2019. PROCEDURE: Sagittal T2, axial T2, sagittal T1, axial T1, sagittal STIR, axial T1 enhanced, and sagittal T1 enhanced sequences. Contrast: 7 ML GADAVIST IV. FINDINGS: Motion artifact on the sagittal T2 and STIR images and axial images limits evaluation of the cervical cord. Alignment: None alignment is unchanged with mild anterolisthesis of C4-C5 and mild retrolisthesis C5-C6. Vertebrae and vertebral marrow signal: No marrow edema. No evidence of fracture. No evidence of discitis osteomyelitis. Cervicomedullary junction and cervical cord: Limited evaluation of the cervical cord due to motion artifact on the sagittal images. No definite cord signal alteration identified. Cervical disc levels: Mild to moderate disc height loss C5-C6. Advance multilevel facet arthropathy which is severe on the right at C2-C3, C3-C4, and C4-C5. As seen on the previous CT at C4-C5 there is an associated facet joint effusion with widening of the facet joint and mild enhancement on postcontrast images. Additionally, there is edema, face enhancement, and asymmetric enlargement throughout the right posterolateral neck musculature. No rim enhancing collection to suggest abscess formation. Combination of posterior disc protrusion and buckling of ligamentum flavum at C3-C4 result in moderate to severe narrowing of the spinal canal with mild compression of the cervical cord. No definite cord signal abnormality. Combination of a central disc protrusion and buckling of the ligamentum flavum at C4-C5 results in moderate narrowing of spinal canal with possible minimal cord compression versus ventral cord contouring. Mild retrolisthesis at C5-C6 mild contouring of the ventral cord. Paraspinal musculature and paravertebral soft tissues: See above Impression 1. Advanced right-sided facet degenerative changes spanning C2 through C5. At C4-C5 there is a facet joint effusion with mild associated enhancement which could represent advanced degenerative changes versus septic joint. 2. Marked edema, asymmetric enlargement, in faint enhancement involving the right posterior neck musculature which appears to be somewhat centered around the right C4-C5 facet joint. Findings are concerning for infection/myositis but could potentially represent sequela of previous injury. 3. No epidural abscess, phlegmonous changes, or evidence of discitis osteomyelitis. 4. Advanced cervical spondylosis at C3 through C5. Changes are worst at C3-C4 where there is moderate to severe narrowing of the spinal canal with mild compression of the cervical cord. No definite cord signal abnormality is seen at any level but evaluation is limited due to motion artifact on the sagittal T2 and STIR images. Signed by: Steve Maria Jace Sign Date/Time: 10/31/2019 11:01 PM Imaging: Imaging Reviewed. PROBLEM LIST Principal Problem: Sepsis Active Problems: Essential hypertension Diabetes Neck pain Acute encephalopathy Resolved Problems: * No resolved hospital problems. * ASSESSMENT & PLAN Waiting for placement for outpatient IV abx. No new complaints Sepsis likely secondary to right side neck infection/myositis, MRI neck was done. No abscess or osteomyelitis. MRSA screen is positive, he initially started Rocephin that was d/c and Vancomycin will be continued, Dr. Russell was consulted, leucocytosis had improving, [facility] grew gram streptococcus agalacta, recommendation for 4 weeks of IV Vancomycin. Meth screen positive, though he denied IV drug abuse. Appreciate case management's assistance with placement Pain management with [place] Electrolyte replacement. Hypertension Resumed Lisinopril 10 mg daily Diabetes mellitus type 2 Diet controlled Anemia microcytic Likely iron defeciency, Continue oral iron, FOB. Acute renal failure Resolved Saline lock IV Left limb pressure injury (lateral side), Stage 2-3, Present on admission Per Wound Care "Wound care consulted to evaluate left limb pressure injury (lateral side). Patient initi ally refused assessment-stating there was no wound present. I asked if I could visually lo ok (photo on chart shows an ulceration). Patient agreed. Visual assessment shows a proba ble stage 2, possibly stage 3 PI. Patient believes its from his prosthetic. Recommend a new fitting. Patient refused-stated there was nothing wrong with his leg and does not want a dressing. Recommend: wound gel, plain aquacel and bordered foam dressing. Informed RN of patient's wishes and my recommendations: she will continue to work with patient on offlo ading and dressing application." Rachael Molina RN, CWON 11/01/2019 DVT prophylaxis SCD and Heparin. Case management working on d/c to Swing bed for IV antibiotics. Disposition: Code Status: Full Code Eve Parkinson MD 11/08/2019 10:53 AM olinEduardo kramer, [facility] - 11/07/2019 7:14 AM PST Vancomycin Dosing Per Pharmacy Subjective/Objective Kuldip Smith is a 54 y.o. male started on vancomycin 11/07 for sepsis on admission. ID is consulted to manage antibiotics. Pharmacy is consulted for vancomycin dosing per Dr. Jacky frances . Additional antimicrobials: none Allergies: Penicillins Quadriplegic/Paraplegic: No Diabetes: Yes Baseline Serum Creatinine: 0.9 mg/dL Current Vital Signs: BP 127/68 | Pulse 82 | Temp 37.4 C (99.4 F) (Oral) | Resp 16 | Ht 1.753 m (5' 9") | Wt 75.8 kg (167 lb 1.7 oz) | SpO2 97% | BMI 24.68 kg/m Recent Labs Lab 11/07/19 0605 11/06/19 0458 11/05/19 0532 11/03/19 1719 11/03/19 0419 WBC 8.25 7.14 7.90 < > -- 9.67 VANCOTROUGH 15.5 -- 15.2 -- 16.4 -- CREA -- 1.1 0.99 -- -- 1.07 < > = values in this interval not displayed. Estimated Creatinine Clearance: 79 mL/min (based on SCr of 1.1 mg/dL). Microbiology Results (72 hrs) No results found for the last 72 hours. Vancomycin Dosing History Date Dosing Regimen Admin Times Trough SCr Comments Day 1 10/31 1000 mg IV @ [facility] 1000 mg IV Q12H 1056 1822 12.2 @ 1709 1.43 Day 2 11/01 1000 mg IV Q12H 0617 1807 1.32 Day 3 11/02 1000 mg IV Q12H 750 mg IV Q12H 0627 1755 19.7 @ 0438 1.14 Day 4 2/2 750 mg IV Q12H 0629 2045 16.4 @ 1719 1.07 Day 5 2/3 750 mg IV Q12H 0624 1842 - Day 6 2/ 750 mg IV Q12H 0637 15.2 @ 0530 0.99 Day 7 2/5 Day 8 2 15.5 @ 0600 *SCr = mg/dL [vanco] = mcg/mL Assessment/Plan Vancomycin Trough: 11/07 @ 0605: 15.5 mcg/mL. Within goal 15-20 mcg/mL. Trough drawn 30 minutes late, but would still have been within goal @ 0530. Continue with current regimen of 750 mg Q12H. Plan for level: 11/11 at 0530. Goal trough 15-20 mcg/mL. Pharmacy will continue to follow and make adjustments to vancomycin therapy as indicated. Thank You, EDUARDO FIGUEROA [facility], 11/07/2019, 7:10 AM Eve Wallis MD - 11/07/2019 5:07 AM PST [facility] Service: Hospitalist Progress Note Hospital Day: LOS: 7 days SUBJECTIVE Patient Summary: From [facility] / [place] 11/05/19 The patient is a 54 y.o. male with significant past medical history of hypertension, diabet es mellitus type 2 currently diet controlled, history of peripheral vascular disease status post left BKA who recently had a nasal bleed s/p packing treated with steroid and antibiotic s went to [facility] with high-grade fever, chills, intractable neck pain withou t radiculopathy and found to have high-grade fever and leukocytosis with white count 30,000, CT scan of the neck was done which was concerning for infectious process case discussed wit h prior to admission, MRI of the neck with contrast didn't show abscess but showed C4-5 facet joint effusion possible septic arthritis, decision was made for 4 weeks of IV Va ncomycin. He was Meth positive so will need swing bed for IV antibiotics on discharge. 11/07/2019 Patient sleeping. Afebrile Scheduled Medications adult multivitamin with minerals/iron, 1 tablet, Oral, Daily lisinopril, 10 mg, Oral, Daily vancomycin, 750 mg, Intravenous, Q12H vancomycin per pharmacy, , Other, Pharmacy Consult PRN Medications acetaminophen, Hypoglycemia Management AND POCT Glucose AND dextrose AND dextro se 10%, HYDROcodone-acetaminophen, ondansetron OBJECTIVE Vital Signs: BP 142/81 | Pulse 84 | Temp 37.5 C (99.5 F) (Oral) | Resp 16 | Ht 1.753 m (5' 9") | Wt 75.8 kg (167 lb 1.7 oz) | SpO2 99% | BMI 24.68 kg/m Patient Vitals for the past 24 hrs: BP Temp Temp src Pulse Resp SpO2 11/07/19 1018 142/81 84 11/07/19 0746 131/71 37.5 C (99.5 F) Oral 85 16 99 % 11/07/19 0400 127/68 37.4 C (99.4 F) Oral 82 16 97 % 11/06/19 2352 158/83 37.3 C (99.2 F) Oral 89 16 98 % 11/06/19 1944 166/85 36.8 C (98.2 F) Oral 89 16 99 % 11/06/19 1507 149/74 36.9 C (98.5 F) Oral 91 16 99 % 11/06/19 1151 131/78 37.1 C (98.8 F) Oral 87 16 99 % 14:LAST:1 78.6 kg (10/31/19 1637) Last: 75.8 kg (11/06/19 0814) Difference: -2.8kg Weight change: 0 kg (0 lb) Intake/Output Summary (Last 24 hours) at 11/07/2019 1021 Last data filed at 11/07/2019 0633 Gross per 24 hour Intake 4257 ml Output 3600 ml Net 657 ml Body mass index is 24.68 kg/m. Physical Exam Vitals signs and nursing note reviewed. Constitutional: Appearance: Normal appearance. Comments: Lying in bed, w/ covers over his head. Rsfuses exam, states he if fine and to leave him alone. Cardiovascular: Rate and Rhythm: Normal rate and regular rhythm. Pulses: Normal pulses. Heart sounds: Normal heart sounds. Pulmonary: Effort: Pulmonary effort is normal. Skin: Coloration: Skin is not jaundiced. Psychiatric: Comments: Sleeping, refuses communication and exam. DATA Recent Labs 11/07/1960411/06/198 WBC 8.25 7.14 HGB 7.8* 8.2* HCT 23.7* 24.1* PLT 355 315 MCV 78.5* 78.2* Recent Labs Lab 11/07/19 0605 11/06/19 1308 11/06/19 0458 11/05/19 0532 11/03/19 0419 11/02/19 0438 11/01/19 0405 NA -- -- 141 138 -- 137 -- 135 -- 136 K 3.5 3.4* 3.2* 3.2* < > 3.3* < > 3.3* < > 2.8* CL -- -- 107 101 -- 105 -- 104 -- 105 CO2 -- -- 29 26 -- 25 -- 22* -- 21* ANIONGAP -- -- 8 14 -- 10 -- 12 -- 13 BUN -- -- 8 8 -- 9 -- 15 -- 20 CREA -- -- 1.1 0.99 -- 1.07 -- 1.14 -- 1.32* CALCIUM -- -- 8.0* 8.2* -- 7.8* -- 7.9* -- 8.2* ALBUMIN -- -- -- -- -- 3.1* -- 3.1* -- 3.2* ALKPHOS -- -- -- -- -- 141* -- 98 -- 94 ALT -- -- -- -- -- 13 -- 12 -- 16 AST -- -- -- -- -- 15 -- 16 -- 21 MG -- -- -- -- -- -- -- 1.9 -- 1.3* < > = values in this interval not displayed. Recent Labs 11/06/1945711/05/19 0532 GLU 131* 102* No results for input(s): TROPONIN, BNP in the last 72 hours. No results for input(s): PROTIME, INR, PTT in the last 168 hours. Recent Labs Lab 10/31/19 1709 IRON 10* FERRITIN 76 [id number] 565 FOLATE 5.7 Recent Labs Lab 11/04/19 0610 11/03/19 0419 10/31/19 1736 10/31/19 1709 LACTATE -- -- 1.5 -- CRP 12.9* 14.3* -- 21.4* ESR 116* 118* -- 58* No results for input(s): AMYLASE, LIPASE in the last 168 hours. No results for input(s): TRIG, CHOL, HDL, LDL in the last 168 hours. No results for input(s): AMMONIA in the last 168 hours. Recent Results (from the past 360 hour(s)) MRI Cervical Spine w wo Contrast Narrative MRI CERVICAL SPINE WITHOUT AND WITH CONTRAST CLINICAL INFORMATION: Neck pain, bone destruction on xray. rule out abscess or osteo COMPARISON: CT neck 10/31/2019. PROCEDURE: Sagittal T2, axial T2, sagittal T1, axial T1, sagittal STIR, axial T1 enhanced, and sagittal T1 enhanced sequences. Contrast: 7 ML GADAVIST IV. FINDINGS: Motion artifact on the sagittal T2 and STIR images and axial images limits evaluation of the cervical cord. Alignment: None alignment is unchanged with mild anterolisthesis of C4-C5 and mild retrolisthesis C5-C6. Vertebrae and vertebral marrow signal: No marrow edema. No evidence of fracture. No evidence of discitis osteomyelitis. Cervicomedullary junction and cervical cord: Limited evaluation of the cervical cord due to motion artifact on the sagittal images. No definite cord signal alteration identified. Cervical disc levels: Mild to moderate disc height loss C5-C6. Advance multilevel facet arthropathy which is severe on the right at C2-C3, C3-C4, and C4-C5. As seen on the previous CT at C4-C5 there is an associated facet joint effusion with widening of the facet joint and mild enhancement on postcontrast images. Additionally, there is edema, face enhancement, and asymmetric enlargement throughout the right posterolateral neck musculature. No rim enhancing collection to suggest abscess formation. Combination of posterior disc protrusion and buckling of ligamentum flavum at C3-C4 result in moderate to severe narrowing of the spinal canal with mild compression of the cervical cord. No definite cord signal abnormality. Combination of a central disc protrusion and buckling of the ligamentum flavum at C4-C5 results in moderate narrowing of spinal canal with possible minimal cord compression versus ventral cord contouring. Mild retrolisthesis at C5-C6 mild contouring of the ventral cord. Paraspinal musculature and paravertebral soft tissues: See above Impression 1. Advanced right-sided facet degenerative changes spanning C2 through C5. At C4-C5 there is a facet joint effusion with mild associated enhancement which could represent advanced degenerative changes versus septic joint. 2. Marked edema, asymmetric enlargement, in faint enhancement involving the right posterior neck musculature which appears to be somewhat centered around the right C4-C5 facet joint. Findings are concerning for infection/myositis but could potentially represent sequela of previous injury. 3. No epidural abscess, phlegmonous changes, or evidence of discitis osteomyelitis. 4. Advanced cervical spondylosis at C3 through C5. Changes are worst at C3-C4 where there is moderate to severe narrowing of the spinal canal with mild compression of the cervical cord. No definite cord signal abnormality is seen at any level but evaluation is limited due to motion artifact on the sagittal T2 and STIR images. Signed by: Steve Maria Jace Sign Date/Time: 10/31/2019 11:01 PM Imaging: Imaging Reviewed. PROBLEM LIST Principal Problem: Sepsis Active Problems: Essential hypertension Diabetes Neck pain Acute encephalopathy Resolved Problems: * No resolved hospital problems. * ASSESSMENT & PLAN Waiting for placement for outpatient IV abx Sepsis likely secondary to right side neck infection/myositis, MRI neck was done. No absces s or osteomyelitis. MRSA screen is positive, he initially started Rocephin that was d/c and Vancomycin will be continued, Dr. Russell was consulted, leucocytosis had improving, culture from outside faci lity grew gram streptococcus agalacta, recommendation for 4 weeks of IV Vancomycin. Meth screen positive, though he denied IV drug abuse. Appreciate case management's assistance with placement Pain management with [place] Electrolyte replacement. Hypertension Resumed Lisinopril 10 mg daily Diabetes mellitus type 2 Diet controlled Anemia microcytic Likely iron defeciency, Continue oral iron, FOB. Acute renal failure Continue IV hydration, DVT prophylaxis SCD and Heparin. Case management working on d/c to Swing bed for IV antibiotics. Disposition: Code Status: Full Code Eve Parkinson MD 11/07/2019 10:21 AM Eden Robert RN - 11/06/2019 6:41 PM PSTIn agreement w/ Lorena Thompson shift assessment. PT vitals remain s table pt calls appropriately when needing assistance. Pt was medicated multiple for in the n ezra during shift. End of shift chart check complete. Eden Pritchett RN 6:43 PM Rebeca Jean MD - 11/06/2019 10:02 AM PSTFormatting of this note might be diff erent from the original. [facility] Service: Infectious Disease Progress Note Hospital Day: LOS: 6 days Post-Op Day: * No surgery found * SUBJECTIVE Patient Summary: Re: Neck pain and fever From ID consult note on 11/01: The patient is a 54 y.o. male with significant past medical history of type 2 diabetes mellitus, hypertension, peripheral vascular disease, history of h ursula with penicillin. He was admitted at [facility] in November, for sepsis secondary to left diabetic foot infection. He was found to have cellulitis, gangrene and osteomyelitis of th e fourth toe. He underwent left fourth ray amputation. He subsequently required left BKA. On 10/13, he had an ER evaluation for epistaxis. He was diagnosed to have acute recurrent f rontal sinusitis and prescribed 7 days of levofloxacin and 5 days of prednisone. He presented on 10/31/2019 at [facility] in [place], [place] complaining of f ever, chills, severe neck pain which she described as starting the prior night. ER work-up showed WBC of 30,000. Neck CT scan showed C3-C4 severe chronic facet arthropathy, subchondr al lytic changes and extensive surrounding soft tissue edema concerning for septic arthritis and surrounding myositis with asymmetric soft tissue adjacent to the right lateral epidural region raising question of epidural phlegmon. Prior to transfer to [facility], Neurosurgery had been consulted. They recommended hospitalist admission and to proceed with MRI of the neck with contrast. The patient denied IV drug use to the admission hospitalist and also denied it during this clinical encounter. Dr. Butler noted WBC of 31,000, BUN 22, creatinine 1.43. Chest x-ray w as described to be negative and urinalysis showed no evidence of UTI. At [facility], the patient received IV vancomycin and ceftriaxone. He was continued o n IV vancomycin on admission. Pharmacy has been consulted for vancomycin dosing with target trough of 15-20. Dr. Waggoner saw the patient in formal consultation and reviewed cervical spine MRI with asse ssment of muscle and alejandra-fascial tissue infection with no evidence of epidural hematoma. H e recommended continuing treatment for osteomyelitis/myositis. Patient complained of 15 out of 10 neck pain severity, out of proportion for his appearance . On repeating the question, he mentioned that his pain was 10 out of 10. He denies new nu mbness, weakness at his extremities. He reports being tired and sleepy. He denies drug use , recent falls, dysuria, diarrhea, abdominal pain, nausea, vomiting, cough, chest pain. He denies pain at the left BKA site but his mother is concerned about an ulcer at the lateral B KA stump. On 11/01, patient was noted to be somnolent, but did eventually wake up. Ulcer at left late ral BKA stump was noted and wound care was consulted. On 11/02, psychiatry was consulted with the patient refusing medical care recommendations and paranoid delusions. He was noted to have a normal mental status exam and encephalopathy wa s attributed to sepsis, hyponatremia and methamphetamine use. [facility] Events Overnight: Neck pain still present. Afebrile, hemodynamically stable. No new weakness or numbness. Denies pain at the left BKA stump. He expresses concern that he is not getting antibiotics. He has no pruritus, new skin rash. No diarrhea. Discharge planning ongoing Scheduled Medications adult multivitamin with minerals/iron 1 tablet Oral Daily lisinopril 10 mg Oral Daily vancomycin 750 mg Intravenous Q12H vancomycin per pharmacy Other Pharmacy Consult Continuous Infusions dextrose 10% sodium chloride 0.9% 100 mL/hr at 11/05/19 1604 PRN Medications acetaminophen, Hypoglycemia Management AND POCT Glucose AND dextrose AND dextro se 10%, HYDROcodone-acetaminophen, HYDROmorphone, ondansetron, Potassium replacement - NON I CU AND Potassium AND potassium chloride AND potassium chloride AND potassium chloride IVPB (other volumes & diluents) AND potassium chloride IVPB (other volumes & d iluents) OBJECTIVE Vital Signs: Vitals: 11/06/19 0811 BP: 150/84 Pulse: Resp: Temp: Physical Exam Vital signs have been reviewed General: Not in acute physical distress. HEENT: Normocephalic. Anicteric sclera. Conjunctival pallor noted. No nasal mucosal lesi ons. No sinus tenderness. Moist oral mucosa with no oral thrush or ulcers. Neck is supple with no discrete mass palpated. Lungs: No adventitious breath sounds Cardiovascular: Normal rate. Regular rhythm. No murmur or rubs Abdomen: No distention. Soft. No tenderness, rebound or guarding Skin: No drug rash. Peripheral IV site is unremarkable Left BKA stump with no erythema, swelling, warmth or tenderness to palpation there is an ul cer at the lateral aspect of the stump with pink base, no foul odor, no purulent drainage or visible deep tissue. Neurologic: Oriented x3. No focal weakness. DATA Recent Results (from the past 24 hour(s)) POC Glucose Collection Time: 11/05/19 11:32 AM Result Value Ref Range Glucose, POC 87 65 - 99 mg/dL POC Glucose Collection Time: 11/05/19 4:45 PM Result Value Ref Range Glucose, POC 147 (H) 65 - 99 mg/dL POC Glucose Collection Time: 11/05/19 8:59 PM Result Value Ref Range Glucose, POC 128 (H) 65 - 99 mg/dL CBC with Differential Collection Time: 11/06/19 4:58 AM Result Value Ref Range WBC 7.14 3.80 - 11.00 K/uL RBC 3.09 (L) 4.20 - 5.70 M/uL Hemoglobin 8.2 (L) 13.2 - 17.0 g/dL Hematocrit 24.1 (L) 39.0 - 50.0 % MCV 78.2 (L) 80.0 - 100.0 fl MCH 26.5 (L) 27.0 - 34.0 pg MCHC 33.9 32.0 - 35.5 g/dL RDW-SD 39.8 37 - 53 fl Platelet Count 315 150 - 400 K/uL MPV 7.0 fl Diff Type AUTOMATED % Neutrophils 74.76 % % Lymphocytes 15.26 % Monocyte % 6.60 % Eosinophils % 2.36 % Basophils % 1.02 % Neutrophils, Absolute 5.34 1.90 - 7.40 K/uL Absolute Lymphocytes 1.09 1.00 - 3.90 K/uL Absolute Monocytes 0.47 0.00 - 0.80 K/uL Eosinophils, Absolute 0.17 0.00 - 0.50 K/uL Basophils, Absolute 0.07 0.00 - 0.10 K/uL Basic Metabolic Panel Collection Time: 11/06/19 4:58 AM Result Value Ref Range Na 141 135 - 145 mmol/L K 3.2 (L) 3.5 - 4.9 mmol/L Cl 107 99 - 109 mmol/L CO2 29 23 - 32 mmol/L Anion Gap 8 5 - 20 mmol/L Glucose 131 (H) 65 - 99 mg/dL BUN 8 8 - 25 mg/dL Creatinine 1.1 0.70 - 1.30 mg/dL BUN/Creatinine Ratio 7 Calcium 8.0 (L) 8.5 - 10.5 mg/dL Estimated GFR >60 >60 mL/min/1.73m2 POC Glucose Collection Time: 11/06/19 7:50 AM Result Value Ref Range Glucose, POC 137 (H) 65 - 99 mg/dL Component Latest Ref Rng & Units 11/02/2019 11/03/2019 11/05/2019 4:38 AM 5:19 PM 5:32 AM Vancomycin, Trough 10 - 20 ug/mL 19.7 16.4 15.2 Microbiology data: 10/31 MRSA nasal PCR positive 10/31 blood cultures with no growth to date 10/31 respiratory PCR panel negative Blood cultures from [facility] grew GPCs grew Streptococcus agalactiae Radiology data: MRI of the cervical spine with and without contrast IMPRESSION: 1. Advanced right-sided facet degenerative changes spanning C2 through C5. At C4-C5 there is a facet joint effusion with mild associated enhancement which could represent advanced degenerative changes versus septic joint. 2. Marked edema, asymmetric enlargement, in faint enhancement involving the right posterior neck musculature which appears to be somewhat centered around the right C4-C5 facet joint. Findings are concerning for infection/myositis but could potentially represent sequela of previous injury. 3. No epidural abscess, phlegmonous changes, or evidence of discitis osteomyelitis. 4. Advanced cervical spondylosis at C3 through C5. Changes are worst at C3-C4 where there is moderate to severe narrowing of the spinal canal with mild compression of the cervical cord. No definite cord signal abnormality is seen at any level but evaluation is limited due to motion artifact on the sagittal T2 and STIR images. Signed by: Steve Maria Jace Sign Date/Time: 10/31/2019 11:01 PM TTE Normal LV systolic function Mild enlargement of the ascending aorta No pulmonary hypertension No obvious vegetation PROBLEM LIST Principal Problem: Sepsis Active Problems: Essential hypertension Diabetes Neck pain Acute encephalopathy ASSESSMENT & PLAN Sepsis on admission -fever curve better, BP stable. Leukocytosis resolved. ESR 116. CRP trending down -Streptococcus bacteremia - Blood cultures from [facility] grew Streptococcus. Blood c ultures here with no growth -Patient presented with right neck pain/fever. MRI of the cervical spine with and without contrast shows myositis, possible right C4-C5 facet joint infection. MRI showed no evidenc e of discitis/osteomyelitis, epidural phlegmon or abscess. Appreciate Neurosurgery evaluati on - no surgery recommended -Transthoracic echocardiogram shows no evidence of infective endocarditis -MRSA nasal PCR positive. Contact isolation -Patient has comorbidities of type 2 diabetes mellitus, history of osteomyelitis/gangrene s tatus post left BKA. There is an ulcer at the lateral aspect of the left BKA for which woun d care has been requested; no overt signs of infection at the site currently. -Patient has no evidence of pneumonia or UTI -Patient denies IV drug use but drug screen is positive for amphetamines/amphetamines. HI V and viral hepatitis screen negative, immune to hepatitis B -GFR 87 -Tele-Psychiatry consulted; their recommendations have been reviewed. Patient voices para noia/distrust. I have reassured him that he is getting appropriate antibiotic Rx and unders cored importance of medication adherence. -Day 7 of IV vancomycin, trough therapeutic 1. Continue 28 days of IV vancomycin. Agree to continue to maintain vancomycin target tro ugh between 15 and 20. Monitor renal function, vancomycin levels closely. Monitor CBC, ESR , CRP while on IV antibiotic therapy. After completion of 28 days of IV vancomycin, may need 2 weeks of po or IV antibiotic depending on clinical status, inflammatory markers. The patient is NOT a candidate for home IV antibiotic therapy with positive drug screen for methamphetamine/amphetamines, history of not following up as an outpatient with high-risk a ntibiotic Rx. Case management has been consulted. Hold off on central line placement until there is a de finite plan for safe discharge. 2. Continue wound care as patient would allow Case Management consulted IV acess: peripheral IV Antibiotic on discharge: Vancomycin 750 mg IV every 12 Antibiotic duration: 28 days from negative blood cultures Antibiotic stop date: 11/28/2019 Laboratory monitoring: CBC, CMP, ESR, CRP, vancomycin trough on Mondays and creatinine/vanc omycin trough on while on IV vancomycin Orders are in Epic/paper chart Patient/significant caregivers have been advised regarding potential antibiotic side effect s including antibiotic associated diarrhea, yeast infections, skin rash, line-related compli cations. Patient has been advised to contact the ID clinic if any symptoms of antibiotic si de effects ensue or if any concerns/questions regarding infection arise. ID clinic follow up: Around 11/[address] Parkinson and Case Management Patient is ready from ID standpoint for discharge; placement is being arranged Code Status: Full Code Rebeca Russell MD 11/06/2019 Taniya Wallis MD - 11/06/2019 5:40 AM PSTFormatting of this note might be different from the origi nal. [facility] Service: Hospitalist Progress Note Hospital Day: LOS: 6 days SUBJECTIVE Patient Summary: From [facility] / [place] 11/05/19 The patient is a 54 y.o. male with significant past medical history of hypertension, diabet es mellitus type 2 currently diet controlled, history of peripheral vascular disease status post left BKA who recently had a nasal bleed s/p packing treated with steroid and antibiotic s went to [facility] with high-grade fever, chills, intractable neck pain withou t radiculopathy and found to have high-grade fever and leukocytosis with white count 30,000, CT scan of the neck was done which was concerning for infectious process case discussed wit h prior to admission, MRI of the neck with contrast didn't show abscess but showed C4-5 facet joint effusion possible septic arthritis, decision was made for 4 weeks of IV Va ncomycin. He was Meth positive so will need swing bed for IV antibiotics on discharge. 11/06/2019 Patient sittin gup in bed, wondering aloud why his previous 30 days of abx isn't still working. Afebrile. Appears comfortable.. Denies SOB, N/V Scheduled Medications adult multivitamin with minerals/iron, 1 tablet, Oral, Daily lisinopril, 10 mg, Oral, Daily vancomycin, 750 mg, Intravenous, Q12H vancomycin per pharmacy, , Other, Pharmacy Consult PRN Medications acetaminophen, Hypoglycemia Management AND POCT Glucose AND dextrose AND dextro se 10%, HYDROcodone-acetaminophen, HYDROmorphone, ondansetron, Potassium replacement - NON I CU AND Potassium AND potassium chloride AND potassium chloride AND potassium chloride IVPB (other volumes & diluents) AND potassium chloride IVPB (other volumes & d iluents) OBJECTIVE Vital Signs: BP 131/78 | Pulse 87 | Temp 37.1 C (98.8 F) (Oral) | Resp 16 | Ht 1.753 m (5' 9") | Wt 75.8 kg (167 lb 1.7 oz) | SpO2 99% | BMI 24.68 kg/m Patient Vitals for the past 24 hrs: BP Temp Temp src Pulse Resp SpO2 Weight 11/06/19 1151 131/78 37.1 C (98.8 F) Oral 87 16 99 % 11/06/19 0814 75.8 kg (167 lb 1.7 oz) 11/06/19 0811 150/84 11/06/19 0733 154/76 37 C (98.6 F) Oral 76 16 98 % 11/06/19 0504 153/80 36.6 C (97.8 F) Axillary 75 16 98 % 75.8 kg (167 lb 1.7 oz) 11/06/19 0025 126/72 36.7 C (98.1 F) Oral 88 18 98 % 11/05/19 1947 154/89 37 C (98.6 F) Oral 91 19 99 % 11/05/19 1642 151/84 37.7 C (99.8 F) Oral 96 19 99 % 14:LAST:1 78.6 kg (10/31/19 1637) Last: 75.8 kg (11/06/19 0814) Difference: -2.8kg Weight change: 0 kg (0 lb) Intake/Output Summary (Last 24 hours) at 11/06/2019 1334 Last data filed at 11/06/2019 1108 Gross per 24 hour Intake 2567 ml Output 3700 ml Net -1133 ml Body mass index is 24.68 kg/m. Physical Exam Vitals signs and nursing note reviewed. Constitutional: Appearance: Normal appearance. Comments: Lying in bed, w/ covers over his head. Rsfuses exam, states he if fine and to leave him alone. HENT: Mouth/Throat: Mouth: Mucous membranes are moist. Cardiovascular: Rate and Rhythm: Normal rate and regular rhythm. Pulses: Normal pulses. Heart sounds: Normal heart sounds. Pulmonary: Effort: Pulmonary effort is normal. Breath sounds: Normal breath sounds. Abdominal: General: Abdomen is flat. Bowel sounds are normal. Skin: Coloration: Skin is not jaundiced. Neurological: General: No focal deficit present. Mental Status: He is alert. Psychiatric: Mood and Affect: Mood normal. DATA Recent Labs 11/06/19 0458 11/05/19 0532 WBC 7.14 7.90 HGB 8.2* 8.1* HCT 24.1* 23.5* PLT 315 274 MCV 78.2* 77.1* Recent Labs Lab 11/06/19 1308 11/06/19 0458 11/05/19 0532 11/03/19 0419 11/02/19 0438 11/01/19 0405 NA -- 141 138 -- 137 -- 135 -- 136 K 3.4* 3.2* 3.2* < > 3.3* < > 3.3* < > 2.8* CL -- 107 101 -- 105 -- 104 -- 105 CO2 -- 29 26 -- 25 -- 22* -- 21* ANIONGAP -- 8 14 -- 10 -- 12 -- 13 BUN -- 8 8 -- 9 -- 15 -- 20 CREA -- 1.1 0.99 -- 1.07 -- 1.14 -- 1.32* CALCIUM -- 8.0* 8.2* -- 7.8* -- 7.9* -- 8.2* ALBUMIN -- -- -- -- 3.1* -- 3.1* -- 3.2* ALKPHOS -- -- -- -- 141* -- 98 -- 94 ALT -- -- -- -- 13 -- 12 -- 16 AST -- -- -- -- 15 -- 16 -- 21 MG -- -- -- -- -- -- 1.9 -- 1.3* < > = values in this interval not displayed. Recent Labs 11/06/19 0458 11/05/19 0532 GLU 131* 102* No results for input(s): TROPONIN, BNP in the last 72 hours. No results for input(s): PROTIME, INR, PTT in the last 168 hours. Recent Labs Lab 10/31/19 1709 IRON 10* FERRITIN 76 [id number] 565 FOLATE 5.7 Recent Labs Lab 11/04/19 0610 11/03/19 0419 10/31/19 1736 10/31/19 1709 LACTATE -- -- 1.5 -- CRP 12.9* 14.3* -- 21.4* ESR 116* 118* -- 58* No results for input(s): AMYLASE, LIPASE in the last 168 hours. No results for input(s): TRIG, CHOL, HDL, LDL in the last 168 hours. No results for input(s): AMMONIA in the last 168 hours. Recent Results (from the past 360 hour(s)) MRI Cervical Spine w wo Contrast Narrative MRI CERVICAL SPINE WITHOUT AND WITH CONTRAST CLINICAL INFORMATION: Neck pain, bone destruction on xray. rule out abscess or osteo COMPARISON: CT neck 10/31/2019. PROCEDURE: Sagittal T2, axial T2, sagittal T1, axial T1, sagittal STIR, axial T1 enhanced, and sagittal T1 enhanced sequences. Contrast: 7 ML GADAVIST IV. FINDINGS: Motion artifact on the sagittal T2 and STIR images and axial images limits evaluation of the cervical cord. Alignment: None alignment is unchanged with mild anterolisthesis of C4-C5 and mild retrolisthesis C5-C6. Vertebrae and vertebral marrow signal: No marrow edema. No evidence of fracture. No evidence of discitis osteomyelitis. Cervicomedullary junction and cervical cord: Limited evaluation of the cervical cord due to motion artifact on the sagittal images. No definite cord signal alteration identified. Cervical disc levels: Mild to moderate disc height loss C5-C6. Advance multilevel facet arthropathy which is severe on the right at C2-C3, C3-C4, and C4-C5. As seen on the previous CT at C4-C5 there is an associated facet joint effusion with widening of the facet joint and mild enhancement on postcontrast images. Additionally, there is edema, face enhancement, and asymmetric enlargement throughout the right posterolateral neck musculature. No rim enhancing collection to suggest abscess formation. Combination of posterior disc protrusion and buckling of ligamentum flavum at C3-C4 result in moderate to severe narrowing of the spinal canal with mild compression of the cervical cord. No definite cord signal abnormality. Combination of a central disc protrusion and buckling of the ligamentum flavum at C4-C5 results in moderate narrowing of spinal canal with possible minimal cord compression versus ventral cord contouring. Mild retrolisthesis at C5-C6 mild contouring of the ventral cord. Paraspinal musculature and paravertebral soft tissues: See above Impression 1. Advanced right-sided facet degenerative changes spanning C2 through C5. At C4-C5 there is a facet joint effusion with mild associated enhancement which could represent advanced degenerative changes versus septic joint. 2. Marked edema, asymmetric enlargement, in faint enhancement involving the right posterior neck musculature which appears to be somewhat centered around the right C4-C5 facet joint. Findings are concerning for infection/myositis but could potentially represent sequela of previous injury. 3. No epidural abscess, phlegmonous changes, or evidence of discitis osteomyelitis. 4. Advanced cervical spondylosis at C3 through C5. Changes are worst at C3-C4 where there is moderate to severe narrowing of the spinal canal with mild compression of the cervical cord. No definite cord signal abnormality is seen at any level but evaluation is limited due to motion artifact on the sagittal T2 and STIR images. Signed by: Steve Maria Jace Sign Date/Time: 10/31/2019 11:01 PM Imaging: Imaging Reviewed. PROBLEM LIST Principal Problem: Sepsis Active Problems: Essential hypertension Diabetes Neck pain Acute encephalopathy Resolved Problems: * No resolved hospital problems. * ASSESSMENT & PLAN Waiting for placement for outpatient IV abx Sepsis likely secondary to right side neck infection/myositis, MRI neck was done. No absces s or osteomyelitis. MRSA screen is positive, he initially started Rocephin that was d/c and Vancomycin will be continued, Dr. Russell was consulted, leucocytosis had improving, culture from outside faci lity grew gram streptococcus agalacta, recommendation for 4 weeks of IV Vancomycin. Meth screen positive, though he denied IV drug abuse. Appreciate case management's assistance with placement Pain management with [place] Electrolyte replacement. Hypertension Resumed Lisinopril 10 mg daily Diabetes mellitus type 2 Diet controlled Anemia microcytic Likely iron defeciency, Continue oral iron, FOB. Acute renal failure Continue IV hydration, DVT prophylaxis SCD and Heparin. Case management working on d/c to Swing bed for IV antibiotics. Disposition: Code Status: Full Code Eve Parkinson MD 11/06/2019 1:[address] - 11/05/2019 2:35 PM PST NUTRITION NOTE Summary Reason For Assessment: per organizational policy(M/H f/u) In to f/u with pt who admitted for sepsis, pt seems disengaged with visit. Pt kept eyes asmita sed during visit. Gave short answers, yes/no. Diet Experience Pt eats 3 meals daily, no snacks. No food allergies. Fluid/Beverage Intake Oral Fluids Amount: Ad sienna Food Intake Amount of Food: Pt states he is eating well and appetite is doing well. Per charting, pt is eating 50-100% of meals over the last 5 days. Appetite rated "good" Type of Food/Meals: Current active diet order is: Diet Diet consistent carb; 60 gm CARB/Meal; Effective Now Nourishments: Pt declined wound healing supplements, states he doesn't need them because hi s wound has healed. Rd educated to at least emphasize protein dense foods in meals and revie wed high protein dense foods with pt. Nutritionally Relevant Medications MV with minerals, NS at 100 ml/hr Prn: dilaudid, zofran, norco. Nutrition-Focused Physical Findings Body Language: Disinterested Extremities, Muscles and Bones: Left BKA Digestive System (Mouth to Rectum):Denies N/V Skin: Wound care following for lateral aspect of the L BKA, stage 2 possibly stage 3. Anthropometrics Wt down 2.8 kg (3.5%) could be significant, per I/O's pt is fluid positive 6 L. Unsure if I /O's are accurate, continue to monitor and avoid further rapid wt loss. Current Weight: 75.8 kg (167 lb 1.7 oz) Admit Weight: 78.6 kg (173 lb 4.5 oz) Biochemical Data, Medical Test, and Procedures Recent Labs 11/05/19 0532 NA 138 K 3.2* GLU 102* BUN 8 CREA 0.99 Nutrition Diagnosis Increased nutrient needs (specify) related to wound healing as evidenced by pt with Stage 2 -3 PI on LE, possible need for oral nutrition supplement if oral intake inadequate Recommendations Continue diet as ordered Wound healing supplements available if pt accepts (pt declined today). Encourage high protein dense foods for wound healing. Goal is to maintain po >75% consistently. Nutritional Risk Required Follow Up: 5 days Nicolle Hendrix MS, RDN, CD Rebeca Jean MD - 11/05/2019 9:43 AM PST [facility] Service: Infectious Disease Progress Note Hospital Day: LOS: 5 days Post-Op Day: * No surgery found * SUBJECTIVE Patient Summary: Re: Neck pain and fever From ID consult note on 11/01: The patient is a 54 y.o. male with significant past medical history of type 2 diabetes mellitus, hypertension, peripheral vascular disease, history of h ursula with penicillin. He was admitted at [facility] in November, for sepsis secondary to left diabetic foot infection. He was found to have cellulitis, gangrene and osteomyelitis of th e fourth toe. He underwent left fourth ray amputation. He subsequently required left BKA. On 10/13, he had an ER evaluation for epistaxis. He was diagnosed to have acute recurrent f rontal sinusitis and prescribed 7 days of levofloxacin and 5 days of prednisone. He presented on 10/31/2019 at [facility] in [place], [place] complaining of f ever, chills, severe neck pain which she described as starting the prior night. ER work-up showed WBC of 30,000. Neck CT scan showed C3-C4 severe chronic facet arthropathy, subchondr al lytic changes and extensive surrounding soft tissue edema concerning for septic arthritis and surrounding myositis with asymmetric soft tissue adjacent to the right lateral epidural region raising question of epidural phlegmon. Prior to transfer to [facility], Neurosurgery had been consulted. They recommended hospitalist admission and to proceed with MRI of the neck with contrast. The patient denied IV drug use to the admission hospitalist and also denied it during this clinical encounter. Dr. Butler noted WBC of 31,000, BUN 22, creatinine 1.43. Chest x-ray w as described to be negative and urinalysis showed no evidence of UTI. At [facility], the patient received IV vancomycin and ceftriaxone. He was continued o n IV vancomycin on admission. Pharmacy has been consulted for vancomycin dosing with target trough of 15-20. Dr. Waggoner saw the patient in formal consultation and reviewed cervical spine MRI with asse ssment of muscle and alejandra-fascial tissue infection with no evidence of epidural hematoma. H e recommended continuing treatment for osteomyelitis/myositis. Patient complained of 15 out of 10 neck pain severity, out of proportion for his appearance . On repeating the question, he mentioned that his pain was 10 out of 10. He denies new nu mbness, weakness at his extremities. He reports being tired and sleepy. He denies drug use , recent falls, dysuria, diarrhea, abdominal pain, nausea, vomiting, cough, chest pain. He denies pain at the left BKA site but his mother is concerned about an ulcer at the lateral B KA stump. On 11/01, patient was noted to be somnolent, but did eventually wake up. Ulcer at left late ral BKA stump was noted and wound care was consulted. On 11/02, psychiatry was consulted with the patient refusing medical care recommendations and paranoid delusions. He was noted to have a normal mental status exam and encephalopathy wa s attributed to sepsis, hyponatremia and methamphetamine use. [facility] Events Overnight: Discharge planning ongoing. Tmax 99.6F. Hypertensive. No acute issues. Neck pain reportedly alleviated by current pain medications. No new weak ness or numbness. No reported diarrhea or vomiting. Scheduled Medications adult multivitamin with minerals/iron 1 tablet Oral Daily lisinopril 10 mg Oral Daily vancomycin 750 mg Intravenous Q12H vancomycin per pharmacy Other Pharmacy Consult Continuous Infusions dextrose 10% sodium chloride 0.9% 100 mL/hr at 11/03/19 1686 PRN Medications acetaminophen, Hypoglycemia Management AND POCT Glucose AND dextrose AND dextro se 10%, HYDROcodone-acetaminophen, HYDROmorphone, ondansetron, Potassium replacement - NON I CU AND Potassium AND potassium chloride AND potassium chloride AND potassium chloride IVPB (other volumes & diluents) AND potassium chloride IVPB (other volumes & d iluents) OBJECTIVE Vital Signs: Vitals: 11/05/19 0700 BP: 181/89 Pulse: 89 Resp: 19 Temp: 36.9 C (98.5 F) Physical Exam Vital signs have been reviewed General: Not in acute physical distress. HEENT: Normocephalic. Anicteric sclera. Conjunctival pallor noted. No nasal mucosal lesi ons. No sinus tenderness. Moist oral mucosa with no oral thrush or ulcers. Neck is supple with no discrete mass palpated. Lungs: No adventitious breath sounds Cardiovascular: Normal rate. Regular rhythm. No murmur or rubs Abdomen: No distention. Soft. No tenderness, rebound or guarding Skin: No drug rash. Peripheral IV site is unremarkable Left BKA stump with no erythema, swelling, warmth or tenderness to palpation there is an ul cer at the lateral aspect of the stump with pink base, no foul odor, no purulent drainage or visible deep tissue. Neurologic: Oriented x3. DATA Recent Results (from the past 24 hour(s)) POC Glucose Collection Time: 11/04/19 11:49 AM Result Value Ref Range Glucose, POC 190 (H) 65 - 99 mg/dL POC Glucose Collection Time: 11/04/19 4:26 PM Result Value Ref Range Glucose, POC 168 (H) 65 - 99 mg/dL POC Glucose Collection Time: 11/04/19 8:54 PM Result Value Ref Range Glucose, POC 180 (H) 65 - 99 mg/dL Vancomycin, Trough Collection Time: 11/05/19 5:32 AM Result Value Ref Range Vancomycin, Trough 15.2 10 - 20 ug/mL Basic Metabolic Panel Collection Time: 11/05/19 5:32 AM Result Value Ref Range Na 138 135 - 145 mmol/L K 3.2 (L) 3.5 - 4.9 mmol/L Cl 101 99 - 109 mmol/L CO2 26 23 - 32 mmol/L Anion Gap 14 5 - 20 mmol/L Glucose 102 (H) 65 - 99 mg/dL BUN 8 8 - 25 mg/dL Creatinine 0.99 0.70 - 1.30 mg/dL BUN/Creatinine Ratio 8 Calcium 8.2 (L) 8.5 - 10.5 mg/dL Estimated GFR >60 >60 mL/min/1.73m2 CBC with Differential Collection Time: 11/05/19 5:32 AM Result Value Ref Range WBC 7.90 3.80 - 11.00 K/uL RBC 3.04 (L) 4.20 - 5.70 M/uL Hemoglobin 8.1 (L) 13.2 - 17.0 g/dL Hematocrit 23.5 (L) 39.0 - 50.0 % MCV 77.1 (L) 80.0 - 100.0 fl MCH 26.5 (L) 27.0 - 34.0 pg MCHC 34.4 32.0 - 35.5 g/dL RDW-SD 40.3 37 - 53 fl Platelet Count 274 150 - 400 K/uL MPV 7.3 fl Diff Type AUTOMATED % Neutrophils 76.02 % % Lymphocytes 12.75 % Monocyte % 7.56 % Eosinophils % 2.60 % Basophils % 1.07 % Neutrophils, Absolute 6.00 1.90 - 7.40 K/uL Absolute Lymphocytes 1.01 1.00 - 3.90 K/uL Absolute Monocytes 0.60 0.00 - 0.80 K/uL Eosinophils, Absolute 0.21 0.00 - 0.50 K/uL Basophils, Absolute 0.08 0.00 - 0.10 K/uL POC Glucose Collection Time: 11/05/19 8:45 AM Result Value Ref Range Glucose, POC 93 65 - 99 mg/dL Microbiology data: 10/31 MRSA nasal PCR positive 10/31 blood cultures with no growth to date 10/31 respiratory PCR panel negative Blood cultures from [facility] grew GPCs grew Streptococcus agalactiae Radiology data: MRI of the cervical spine with and without contrast IMPRESSION: 1. Advanced right-sided facet degenerative changes spanning C2 through C5. At C4-C5 there is a facet joint effusion with mild associated enhancement which could represent advanced degenerative changes versus septic joint. 2. Marked edema, asymmetric enlargement, in faint enhancement involving the right posterior neck musculature which appears to be somewhat centered around the right C4-C5 facet joint. Findings are concerning for infection/myositis but could potentially represent sequela of previous injury. 3. No epidural abscess, phlegmonous changes, or evidence of discitis osteomyelitis. 4. Advanced cervical spondylosis at C3 through C5. Changes are worst at C3-C4 where there is moderate to severe narrowing of the spinal canal with mild compression of the cervical cord. No definite cord signal abnormality is seen at any level but evaluation is limited due to motion artifact on the sagittal T2 and STIR images. Signed by: Steve Maria Jace Sign Date/Time: 10/31/2019 11:01 PM TTE Normal LV systolic function Mild enlargement of the ascending aorta No pulmonary hypertension No obvious vegetation PROBLEM LIST Principal Problem: Sepsis Active Problems: Essential hypertension Diabetes Neck pain Acute encephalopathy ASSESSMENT & PLAN Sepsis on admission -fever curve better, BP stable. Leukocytosis resolved. ESR 116. CRP trending down -Streptococcus bacteremia - Blood cultures from [facility] grew Streptococcus. Blood c ultures here with no growth -Patient presented with right neck pain/fever. MRI of the cervical spine with and without contrast shows myositis, possible right C4-C5 facet joint infection. MRI showed no evidenc e of discitis/osteomyelitis, epidural phlegmon or abscess. Appreciate Neurosurgery evaluati on - no surgery recommended -Transthoracic echocardiogram shows no evidence of infective endocarditis -MRSA nasal PCR positive. Contact isolation -Patient has comorbidities of type 2 diabetes mellitus, history of osteomyelitis/gangrene s tatus post left BKA. There is an ulcer at the lateral aspect of the left BKA for which woun d care has been requested; no overt signs of infection at the site currently. -Patient has no evidence of pneumonia or UTI -Patient denies IV drug use but drug screen is positive for amphetamines/amphetamines. HI V and viral hepatitis screen negative, immune to hepatitis B -GFR 87 -Noted Psychiatry recommendations -Day 6 of IV vancomycin, trough therapeutic 1. Continue 28 days of IV vancomycin. Agree to continue to maintain vancomycin target tro ugh between 15 and 20. Monitor renal function, vancomycin levels closely. Monitor CBC, ESR , CRP while on IV antibiotic therapy. After completion of 28 days of IV vancomycin, may need 2 weeks of po or IV antibiotic depending on clinical status, inflammatory markers. The patient is NOT a candidate for home IV antibiotic therapy with positive drug screen for methamphetamine/amphetamines, history of not following up as an outpatient. Case management has been consulted. Hold off on central line placement until there is a de finite plan for safe discharge. 2. Continue wound care as patient would allow Case discussed with Dr. Parkinson and Case Management 35 mins spent for clinical encounter, including coordinating care for discharge Please call for further ID questions during this hospital admission Code Status: Full Code Rebeca Russell MD 11/05/2019 Bala Lewis aba, PharmD - 11/05/2019 9:38 AM PSTFormatting of this note might be different from the kar ginal. Vancomycin Dosing Per Pharmacy Subjective/Objective Kuldip Smith is a 54 y.o. male on vancomycin since 10/31/2019 for sepsis on admission. I D is consulted to manage antibiotics. Pharmacy is consulted for vancomycin dosing per Dr. Demetrius hollis. Additional antimicrobials: None Allergies: Penicillins Quadriplegic/Paraplegic: No Diabetes: Yes Baseline Serum Creatinine: 0.9 mg/dL Current Vital Signs: BP 181/89 | Pulse 89 | Temp 36.9 C (98.5 F) (Oral) | Resp 19 | Ht 1.753 m (5' 9") | Wt 75.8 kg (167 lb 1.7 oz) | SpO2 98% | BMI 24.68 kg/m Weight used for vancomycin dosing: Actual BW Recent Labs Lab 11/05/19 0532 11/04/19 0610 11/03/19 0419 11/02/19 0438 WBC 7.90 9.56 9.67 12.78* CREA 0.99 -- 1.07 1.14 Estimated Creatinine Clearance: 87 mL/min (based on SCr of 0.99 mg/dL). Microbiology Results (72 hrs) No results found for the last 72 hours. Vancomycin Dosing History Date Dosing Regimen Admin Times Trough SCr Comments Day 1 10/31 1000 mg IV @ [facility] 1000 mg IV Q12H 1056 1822 12.2 @ 1709 1.43 Day 2 11/01 1000 mg IV Q12H 0617 1807 1.32 Day 3 11/02 1000 mg IV Q12H 750 mg IV Q12H 0627 1755 19.7 @ 0438 1.14 Day 4 11/03 750 mg IV Q12H 0629 2045 16.4 @ 1719 1.07 Day 5 11/04 750 mg IV Q12H 0624 1842 - Day 6 2/4 750 mg IV Q12H 0637 15.2 @ 0530 0.99 *SCr = mg/dL [vanco] = mcg/mL Assessment/Plan Vancomycin Load: Vancomycin 1000 mg IV X 1 on 10/31/2019 at 1056 given at [facility]. Maintenance Dose: Vancomycin 750 mg IV every 12 hours Rationale: Based on [facility] dosing nomogram, current renal function, and desired trough. Target trough: 15-20 mcg/ml Culture monitoring: Will monitor culture(s) for growth, identification, and sensitivities. The trough level which was obtained on 11/05/2019 at 0530 resulted at 15.2 ug/mL. This level is therapeutic for goal trough. Plan for dosing: The current regimen will be continued (vancomycin 750 mg IV every 12 hours ). Will continue vancomycin for total of 28 days per ID recommendation. Pharmacy will continue to follow and make adjustments to vancomycin therapy as indicated. Thank You, Alyssa Anders PharmD, [facility] 11/05/2019 9:24 AM ve Pierson MD - 11/05/2019 5:28 AM PSTFormatting of this note might be different from teto gomez. [facility] Service: Hospitalist Progress Note Hospital Day: LOS: 5 days SUBJECTIVE Patient Summary: From [facility] / [place] 11/05/19 The patient is a 54 y.o. male with significant past medical history of hypertension, diabet es mellitus type 2 currently diet controlled, history of peripheral vascular disease status post left BKA who recently had a nasal bleed s/p packing treated with steroid and antibiotic s went to [facility] with high-grade fever, chills, intractable neck pain withou t radiculopathy and found to have high-grade fever and leukocytosis with white count 30,000, CT scan of the neck was done which was concerning for infectious process case discussed wit h prior to admission, MRI of the neck with contrast didn't show abscess but showed C4-5 facet joint effusion possible septic arthritis, decision was made for 4 weeks of IV Va ncomycin. He was Meth positive so will need swing bed for IV antibiotics on discharge. 11/05/2019, the patient has covers pulled up over his head and refuses exam, stating that margarita ramirez is fine and to leave him alone. Per his medical records, he is afebrile, taking adequate orals. No apparent distress. Scheduled Medications adult multivitamin with minerals/iron, 1 tablet, Oral, Daily lisinopril, 10 mg, Oral, Daily vancomycin, 750 mg, Intravenous, Q12H vancomycin per pharmacy, , Other, Pharmacy Consult PRN Medications acetaminophen, Hypoglycemia Management AND POCT Glucose AND dextrose AND dextro se 10%, HYDROcodone-acetaminophen, HYDROmorphone, ondansetron, Potassium replacement - NON I CU AND Potassium AND potassium chloride AND potassium chloride AND potassium chloride IVPB (other volumes & diluents) AND potassium chloride IVPB (other volumes & d iluents) OBJECTIVE Vital Signs: BP 155/88 | Pulse 79 | Temp 37.1 C (98.8 F) (Oral) | Resp 18 | Ht 1.753 m (5' 9") | Wt 75.8 kg (167 lb 1.7 oz) | SpO2 96% | BMI 24.68 kg/m Patient Vitals for the past 24 hrs: BP Temp Temp src Pulse Resp SpO2 Weight 11/05/19441 155/88 37.1 C (98.8 F) Oral 79 18 96 % 75.8 kg (167 lb 1.7 oz) 11/04/198 165/86 37.1 C (98.7 F) Oral 91 18 98 % 11/04/192002 (!) 184/93 37.6 C (99.6 F) Oral 91 18 96 % 11/04/19 1625 (!) 154/96 37.2 C (99 F) Oral 93 18 98 % 11/04/19 1148 (!) 185/94 37.3 C (99.1 F) Oral 83 18 99 % 11/04/19 0744 138/79 36.9 C (98.4 F) Oral 96 18 100 % First: 78.6 kg (10/31/19 163)Last: 75.8 kg (11/05/19441)Difference: -2.8kg Weight change: Intake/Output Summary (Last 24 hours) at 11/05/2019 05 Last data filed at 11/05/2019 0449 Gross per 24 hour Intake 960 ml Output 1825 ml Net -865 ml Body mass index is 24.68 kg/m. Physical Exam Vitals signs and nursing note reviewed. Constitutional: Comments: Lying in bed, w/ covers over his head. Rsfuses exam, states he if fine and to leave him alone. DATA Recent Labs 11/04/1960911/03/19418 WBC 9.56 9.67 HGB 8.3* 8.5* HCT 24.4* 25.0* PLT 273 256 MCV 76.9* 78.0* Recent Labs Lab 11/04/1960911/03/19 1511 11/03/1941811/02/19 0438 11/01/19 0405 NA -- -- 137 -- 135 -- 136 K 3.2* 3.6 3.3* < > 3.3* < > 2.8* CL -- -- 105 -- 104 -- 105 CO2 -- -- 25 -- 22* -- 21* ANIONGAP -- -- 10 -- 12 -- 13 BUN -- -- 9 -- 15 -- 20 CREA -- -- 1.07 -- 1.14 -- 1.32* CALCIUM -- -- 7.8* -- 7.9* -- 8.2* ALBUMIN -- -- 3.1* -- 3.1* -- 3.2* ALKPHOS -- -- 141* -- 98 -- 94 ALT -- -- 13 -- 12 -- 16 AST -- -- 15 -- 16 -- 21 MG -- -- -- -- 1.9 -- 1.3* < > = values in this interval not displayed. Recent Labs 11/03/19418 GLU 176* No results for input(s): TROPONIN, BNP in the last 72 hours. No results for input(s): PROTIME, INR, PTT in the last 168 hours. Recent Labs Lab 10/31/19 1709 IRON 10* FERRITIN 76 [id number] FOLATE 5.7 Recent Labs Lab 11/04/1960911/03/1941810/31/19 1736 10/31/19 1709 LACTATE -- -- 1.5 -- CRP 12.9* 14.3* -- 21.4* ESR 116* 118* -- 58* No results for input(s): AMYLASE, LIPASE in the last 168 hours. No results for input(s): TRIG, CHOL, HDL, LDL in the last 168 hours. No results for input(s): AMMONIA in the last 168 hours. Recent Results (from the past 360 hour(s)) MRI Cervical Spine w wo Contrast Narrative MRI CERVICAL SPINE WITHOUT AND WITH CONTRAST CLINICAL INFORMATION: Neck pain, bone destruction on xray. rule out abscess or osteo COMPARISON: CT neck 10/31/2019. PROCEDURE: Sagittal T2, axial T2, sagittal T1, axial T1, sagittal STIR, axial T1 enhanced, and sagittal T1 enhanced sequences. Contrast: 7 ML GADAVIST IV. FINDINGS: Motion artifact on the sagittal T2 and STIR images and axial images limits evaluation of the cervical cord. Alignment: None alignment is unchanged with mild anterolisthesis of C4-C5 and mild retrolisthesis C5-C6. Vertebrae and vertebral marrow signal: No marrow edema. No evidence of fracture. No evidence of discitis osteomyelitis. Cervicomedullary junction and cervical cord: Limited evaluation of the cervical cord due to motion artifact on the sagittal images. No definite cord signal alteration identified. Cervical disc levels: Mild to moderate disc height loss C5-C6. Advance multilevel facet arthropathy which is severe on the right at C2-C3, C3-C4, and C4-C5. As seen on the previous CT at C4-C5 there is an associated facet joint effusion with widening of the facet joint and mild enhancement on postcontrast images. Additionally, there is edema, face enhancement, and asymmetric enlargement throughout the right posterolateral neck musculature. No rim enhancing collection to suggest abscess formation. Combination of posterior disc protrusion and buckling of ligamentum flavum at C3-C4 result in moderate to severe narrowing of the spinal canal with mild compression of the cervical cord. No definite cord signal abnormality. Combination of a central disc protrusion and buckling of the ligamentum flavum at C4-C5 results in moderate narrowing of spinal canal with possible minimal cord compression versus ventral cord contouring. Mild retrolisthesis at C5-C6 mild contouring of the ventral cord. Paraspinal musculature and paravertebral soft tissues: See above Impression 1. Advanced right-sided facet degenerative changes spanning C2 through C5. At C4-C5 there is a facet joint effusion with mild associated enhancement which could represent advanced degenerative changes versus septic joint. 2. Marked edema, asymmetric enlargement, in faint enhancement involving the right posterior neck musculature which appears to be somewhat centered around the right C4-C5 facet joint. Findings are concerning for infection/myositis but could potentially represent sequela of previous injury. 3. No epidural abscess, phlegmonous changes, or evidence of discitis osteomyelitis. 4. Advanced cervical spondylosis at C3 through C5. Changes are worst at C3-C4 where there is moderate to severe narrowing of the spinal canal with mild compression of the cervical cord. No definite cord signal abnormality is seen at any level but evaluation is limited due to motion artifact on the sagittal T2 and STIR images. Signed by: Steve Maria Jace Sign Date/Time: 10/31/2019 11:01 PM Imaging: Imaging Reviewed. PROBLEM LIST Principal Problem: Sepsis Active Problems: Essential hypertension Diabetes Neck pain Acute encephalopathy Resolved Problems: * No resolved hospital problems. * ASSESSMENT & PLAN Sepsis likely secondary to right side neck infection/myositis, MRI neck was done. No absces s or osteomyelitis. MRSA screen is positive, he initially started Rocephin that was d/c and Vancomycin will be continued, Dr. Russell was consulted, leucocytosis had improving, culture from outside faci lity grew gram streptococcus agalacta, recommendation for 4 weeks of IV Vancomycin. Meth screen positive, though he denied IV drug abuse. Appreciate case management's assistance with placement Pain management with [place] Electrolyte replacement. Hypertension Resumed Lisinopril 10 mg daily Diabetes mellitus type 2 Diet controlled Anemia microcytic Likely iron defeciency, Continue oral iron, FOB. Acute renal failure Continue IV hydration, DVT prophylaxis SCD and Heparin. Case management working on d/c to Swing bed for IV antibiotics. Disposition: Code Status: Full Code Eve Parkinson MD 11/05/2019 5:28 AM Melissa Madrid MD - 11/04/2019 3:51 PM PST [facility] Service: Hospitalist Progress Note Pt: Kuldip Smith AGE/SEX: 54 y.o. male ROOM: 7105/7105-01 : 1965 PCP: Estrella Light PA-C ADMIT DATE: 10/31/2019 TODAY'S DATE: 11/04/2019 Hospital Day/Hospital Course: LOS: 4 days Patient summary: The patient is a 54 y.o. male with significant past medical history of hypertension, diabet es mellitus type 2 currently diet controlled, history of peripheral vascular disease status post left BKA who recently had a nasal bleed s/p packing treated with steroid and antibiotic s went to [facility] with high-grade fever, chills, intractable neck pain withou t radiculopathy and found to have high-grade fever and leukocytosis with white count 30,000, CT scan of the neck was done which was concerning for infectious process case discussed wit margarita Alarcon prior to admission, MRI of the neck with contrast didn't show abscess but showed C4-5 facet joint effusion possible septic arthritis, decision was made for 4 weeks of IV Va ncomycin. He was Meth positive so will need swing bed for IV antibiotics on discharge. SUBJECTIVE: Patient seen and examine. Continue to complain of Right neck pain 5-10/10, his no fever. Scheduled Medications: adult multivitamin with minerals/iron 1 tablet Oral Daily vancomycin 750 mg Intravenous Q12H vancomycin per pharmacy Other Pharmacy Consult Continuous Infusions dextrose 10% sodium chloride 0.9% 100 mL/hr at 11/03/19 2106 PRN Medications acetaminophen, Hypoglycemia Management AND POCT Glucose AND dextrose AND dextro se 10%, HYDROcodone-acetaminophen, HYDROmorphone, ondansetron, Potassium replacement - NON I CU AND Potassium AND potassium chloride AND potassium chloride AND potassium chloride IVPB (other volumes & diluents) AND potassium chloride IVPB (other volumes & d iluents) Allergy: Allergies Allergen Reactions Penicillins Rash and Hives OBJECTIVE: Vitals: Temp: [36.9 C (98.4 F)-37.3 C (99.1 F)] 37.3 C (99.1 F) Pulse: [77-114] 83 Resp: [18-20] 18 BP: (123-185)/(74-100) 185/94 I&O Detailed Table: Intake/Output Summary (Last 24 hours) at 11/04/2019 1551 Last data filed at 11/04/2019 1400 Gross per 24 hour Intake 3462 ml Output 4475 ml Net -1013 ml Patient Vitals for the past 96 hrs: Weight 11/02/19 0347 75.8 kg (167 lb) 10/31/19 1637 78.6 kg (173 lb 4.5 oz) Physical Examination: Constitutional: Alert and oriented to person, place, and time. HEENT: tenderness on right side of neck. Cardiovascular: Normal rate, regular rhythm, normal heart sounds with S1 and S2, and intact distal pulses. Exam reveals no gallop and no friction rub. No murmur heard. Pulmonary/Chest: Effort normal and breath sounds normal. No stridor. No respiratory distres s. no wheezes. no rales. exhibits no tenderness. Abdominal: Soft. Bowel sounds are normal. exhibits no distension and no mass. There is no t enderness. There is no rebound and no guarding. Extremeties/Musculoskeletal: Normal range of motion.exhibits no tenderness. exhibits no ed yg. Left BKA Normal equal peripheral pulses. Neurological: Alert and oriented to person, place, and time. No cranial nerve deficit. E xhibits normal muscle tone. No gross motor deficits. Skin: Skin is warm. No pallor. Patient has normal capillary refill, no mottling. Psychiatric: Has a normal mood and affect. Behavior is normal. Judgment normal. LABS: Recent Labs 11/04/19 0610 11/03/19 0419 WBC 9.56 9.67 HGB 8.3* 8.5* HCT 24.4* 25.0* PLT 273 256 MCV 76.9* 78.0* Recent Labs Lab 11/04/19 0610 11/03/19 1511 11/03/19 0419 11/02/19 0438 11/01/19 0405 NA -- -- 137 -- 135 -- 136 K 3.2* 3.6 3.3* < > 3.3* < > 2.8* CL -- -- 105 -- 104 -- 105 CO2 -- -- 25 -- 22* -- 21* ANIONGAP -- -- 10 -- 12 -- 13 BUN -- -- 9 -- 15 -- 20 CREA -- -- 1.07 -- 1.14 -- 1.32* CALCIUM -- -- 7.8* -- 7.9* -- 8.2* ALBUMIN -- -- 3.1* -- 3.1* -- 3.2* ALKPHOS -- -- 141* -- 98 -- 94 ALT -- -- 13 -- 12 -- 16 AST -- -- 15 -- 16 -- 21 MG -- -- -- -- 1.9 -- 1.3* < > = values in this interval not displayed. Recent Labs 11/03/19 04111/02/19 0438 GLU 176* 192* No results for input(s): TROPONIN, BNP in the last 72 hours. No results for input(s): PROTIME, INR, PTT in the last 168 hours. Recent Labs Lab 10/31/19 1709 IRON 10* FERRITIN 76 [id number] 565 FOLATE 5.7 Recent Labs Lab 11/04/19 0610 11/03/19 0419 10/31/19 1736 10/31/19 1709 LACTATE -- -- 1.5 -- CRP 12.9* 14.3* -- 21.4* ESR 116* 118* -- 58* No results for input(s): AMYLASE, LIPASE in the last 168 hours. No results for input(s): TRIG, CHOL, HDL, LDL in the last 168 hours. No results for input(s): AMMONIA in the last 168 hours. Mri Cervical Spine W Wo Contrast Result Date: 10/31/2019 MRI CERVICAL SPINE WITHOUT AND WITH CONTRAST CLINICAL INFORMATION: Neck pain, bone destruct ion on xray. rule out abscess or osteo COMPARISON: CT neck 10/31/2019. PROCEDURE: Sagittal T2 , axial T2, sagittal T1, axial T1, sagittal STIR, axial T1 enhanced, and sagittal T1 enhance d sequences. Contrast: 7 ML GADAVIST IV. FINDINGS: Motion artifact on the sagittal T2 and ST IR images and axial images limits evaluation of the cervical cord. Alignment: None alignment is unchanged with mild anterolisthesis of C4-C5 and mild retrolisthesis C5-C6. Vertebrae an d vertebral marrow signal: No marrow edema. No evidence of fracture. No evidence of discit is osteomyelitis. Cervicomedullary junction and cervical cord: Limited evaluation of the cer vical cord due to motion artifact on the sagittal images. No definite cord signal alteratio n identified. Cervical disc levels: Mild to moderate disc height loss C5-C6. Advance multil evel facet arthropathy which is severe on the right at C2-C3, C3-C4, and C4-C5. As seen on the previous CT at C4-C5 there is an associated facet joint effusion with widening of the fa cet joint and mild enhancement on postcontrast images. Additionally, there is edema, face e nhancement, and asymmetric enlargement throughout the right posterolateral neck musculature. No rim enhancing collection to suggest abscess formation. Combination of posterior disc pr otrusion and buckling of ligamentum flavum at C3-C4 result in moderate to severe narrowing o f the spinal canal with mild compression of the cervical cord. No definite cord signal abno rmality. Combination of a central disc protrusion and buckling of the ligamentum flavum at C4-C5 results in moderate narrowing of spinal canal with possible minimal cord compression v ersus ventral cord contouring. Mild retrolisthesis at C5-C6 mild contouring of the ventral cord. Paraspinal musculature and paravertebral soft tissues: See above 1. Advanced right-sided facet degenerative changes spanning C2 through C5. At C4-C5 there is a facet joint effusion with mild associated enhancement which could represent advanced de generative changes versus septic joint. 2. Marked edema, asymmetric enlargement, in faint en hancement involving the right posterior neck musculature which appears to be somewhat center ed around the right C4-C5 facet joint. Findings are concerning for infection/myositis but c ould potentially represent sequela of previous injury. 3. No epidural abscess, phlegmonous c hanges, or evidence of discitis osteomyelitis. 4. Advanced cervical spondylosis at C3 throug h C5. Changes are worst at C3-C4 where there is moderate to severe narrowing of the spinal canal with mild compression of the cervical cord. No definite cord signal abnormality is se en at any level but evaluation is limited due to motion artifact on the sagittal T2 and STIR images. Signed by: Steve Maria Jace Sign Date/Time: 10/31/2019 11:[address] Maxillofacial Wo Contrast Result Date: 10/13/2019 CT MAXILLOFACIAL WO CONTRAST 10/13/2019 1:09 PM HISTORY:?Facial pain. COMPARISON: None. PROT OCOL: Thin section axial CT images of the maxillofacial structures were obtained with shoemaker l and sagittal reformations. FINDINGS: Imaged portions of the brain: Normal. Orbits: The pat ient is status post bilateral cataract surgery. Paranasal sinuses: There is mucosal thickeni ng of the bilateral frontal and ethmoid sinuses. There is narrowing of the infundibulum of the right ostiomeatal complex. A mucous retention cyst and mucosal thickening is seen of th e left maxillary sinus to a greater degree than the right side. Maxilla and mandible: Normal . Zygoma/zygomatic arches and pterygoid plates: Normal. Temporal bones: Normal. Nasal bones: Asymmetric swelling of the soft tissues anterior to the left alveolar ridge of the maxilla is noted. This is noted beneath the left nasolabial fold. No osseous erosions are noted. There is questionable mild thickening of the left nasal ala relative to the right side. Cran iocervical junction and imaged portions of the cervical spine: Normal. IMPRESSION- 1. No acu te facial fracture. 2. Mucosal thickening is seen along the ethmoid and maxillary sinuses. 3 . Soft tissue fullness is noted anterior to the left alveolar ridge and along the left nasol abial fold which could suggest inflammation. A preliminary report was sent by [employer] with no significant discrepancy on 10/13/2019 1:38 PM. Dictated and Signed by: Herve Ibrahim MD Electronically signed: 10/13/2019 1:57 PM 1. No acute facial fracture. 2. Mucosal thickening is seen along the ethmoid and maxillary sinuses. 3. Soft tissue fullness is noted anterior to the left alveolar ridge and along the left nasolabial fold which could suggest inflammation. Signed by: Ellen Foster, Jorge Sign Date/Time: 10/13/2019 1:38 PM <NWCOMORBIDITIES> PROBLEM LIST Principal Problem: Sepsis Active Problems: Essential hypertension Diabetes Neck pain Acute encephalopathy ASSESSMENT & PLAN 1. Sepsis likely secondary to right side neck infection/myositis, MRI neck was done. No abs cess or osteomyelitis. MRSA screen is positive, he initially started Rocephin that was d/c and Vancomycin will be continued, Dr. Russell was consulted, leucocytosis is improving, culture from outside facil ity grew gram streptococcus agalacta, recommendation for 4 weeks of IV Vancomycin. he had meth screen positive, he denied IV drug abuse. Pain management with [place] Electrolyte replacement. 2. Hypertension, will recheck renal function and resumed Lisinopril 10 mg daily 3. Diabetes mellitus type 2 diet controlled 4. Anemia microcytic, likely iron defeciency, will start oral iron, FOB. 5. Acute renal failure, continue IV hydration, 6. DVT prophylaxis SCD and Heparin. Case management working on d/c to Swing bed for IV antibiotics. Melissa Martin MD 11/04/2019 3:51 PM Jesika Jean MD - 11/04/2019 11:01 AM PST [facility] Service: Infectious Disease Progress Note Hospital Day: LOS: 4 days Post-Op Day: * No surgery found * SUBJECTIVE Patient Summary: Re: Neck pain and fever From ID consult note on 11/01: The patient is a 54 y.o. male with significant past medical history of type 2 diabetes mellitus, hypertension, peripheral vascular disease, history of h ursula with penicillin. He was admitted at [facility] in November, for sepsis secondary to left diabetic foot infection. He was found to have cellulitis, gangrene and osteomyelitis of th e fourth toe. He underwent left fourth ray amputation. He subsequently required left BKA. On 10/13, he had an ER evaluation for epistaxis. He was diagnosed to have acute recurrent f rontal sinusitis and prescribed 7 days of levofloxacin and 5 days of prednisone. He presented on 10/31/2019 at [facility] in [place], [place] complaining of f ever, chills, severe neck pain which she described as starting the prior night. ER work-up showed WBC of 30,000. Neck CT scan showed C3-C4 severe chronic facet arthropathy, subchondr al lytic changes and extensive surrounding soft tissue edema concerning for septic arthritis and surrounding myositis with asymmetric soft tissue adjacent to the right lateral epidural region raising question of epidural phlegmon. Prior to transfer to [facility], Neurosurgery had been consulted. They recommended hospitalist admission and to proceed with MRI of the neck with contrast. The patient denied IV drug use to the admission hospitalist and also denied it during this clinical encounter. Dr. Butler noted WBC of 31,000, BUN 22, creatinine 1.43. Chest x-ray w as described to be negative and urinalysis showed no evidence of UTI. At [facility], the patient received IV vancomycin and ceftriaxone. He was continued o n IV vancomycin on admission. Pharmacy has been consulted for vancomycin dosing with target trough of 15-20. Dr. Waggoner saw the patient in formal consultation and reviewed cervical spine MRI with asse ssment of muscle and alejandra-fascial tissue infection with no evidence of epidural hematoma. H e recommended continuing treatment for osteomyelitis/myositis. Patient complained of 15 out of 10 neck pain severity, out of proportion for his appearance . On repeating the question, he mentioned that his pain was 10 out of 10. He denies new nu mbness, weakness at his extremities. He reports being tired and sleepy. He denies drug use , recent falls, dysuria, diarrhea, abdominal pain, nausea, vomiting, cough, chest pain. He denies pain at the left BKA site but his mother is concerned about an ulcer at the lateral B KA stump. On 11/01, patient was noted to be somnolent, but did eventually wake up. Ulcer at left late ral BKA stump was noted and wound care was consulted. On 11/02, psychiatry was consulted with the patient refusing medical care recommendations and paranoid delusions. He was noted to have a normal mental status exam and encephalopathy wa s attributed to sepsis, hyponatremia and methamphetamine use. [facility] Events Overnight: Noted nursing report of patient's emotional status earlier. He has been afebrile, intermittently hypertensive. Blood cultures from [facility] are reported to be Strep agalactiae in 2 sets. He has 5/10 neck pain, worse with movement. He has been afebrile with no chills or sweats. No new neurologic deficits. Denies pain at L BKA stump - refusing wound care Denies chest pain, palpitations, abdominal pain, nausea, vomiting, diarrhea, difficulty wit h urination. He expresses preference to continue therapy in [place] where he resides Scheduled Medications adult multivitamin with minerals/iron 1 tablet Oral Daily vancomycin 750 mg Intravenous Q12H vancomycin per pharmacy Other Pharmacy Consult Continuous Infusions dextrose 10% sodium chloride 0.9% 100 mL/hr at 11/03/192105 PRN Medications acetaminophen, Hypoglycemia Management AND POCT Glucose AND dextrose AND dextro se 10%, HYDROcodone-acetaminophen, HYDROmorphone, ondansetron, Potassium replacement - NON I CU AND Potassium AND potassium chloride AND potassium chloride AND potassium chloride IVPB (other volumes & diluents) AND potassium chloride IVPB (other volumes & d iluents) OBJECTIVE Vital Signs: Vitals: 11/04/19 0744 BP: 138/79 Pulse: 96 Resp: 18 Temp: 36.9 C (98.4 F) Physical Exam Vital signs have been reviewed General: Not in acute physical distress.seen with his mother at bedside and his nurse. HEENT: Normocephalic. Anicteric sclera. Conjunctival pallor noted. No nasal mucosal lesi ons. No sinus tenderness. Moist oral mucosa with no oral thrush or ulcers. Neck is supple with no discrete mass palpated. He is tender to palpation at the right side and posterior neck. Lungs: No adventitious breath sounds Cardiovascular: Normal rate. Regular rhythm. No murmur or rubs Abdomen: No distention. Soft. No tenderness, rebound or guarding Skin: No drug rash. Peripheral IV site is unremarkable Left BKA stump with no erythema, swelling, warmth or tenderness to palpation there is an ul cer at the lateral aspect of the stump with pink base, no foul odor, no purulent drainage or visible deep tissue. Neurologic: Oriented x3. Motor strength intact upper and lower extremities. Appreciates l ight touch at both upper extremities. No tremors. DATA Recent Results (from the past 24 hour(s)) POC Glucose Collection Time: 11/03/19 11:23 AM Result Value Ref Range Glucose, POC 230 (H) 65 - 99 mg/dL Potassium Collection Time: 11/03/19 3:11 PM Result Value Ref Range K 3.6 3.5 - 4.9 mmol/L Vancomycin, Trough Collection Time: 11/03/19 5:19 PM Result Value Ref Range Vancomycin, Trough 16.4 10 - 20 ug/mL POC Glucose Collection Time: 11/03/19 8:36 PM Result Value Ref Range Glucose, POC 193 (H) 65 - 99 mg/dL Potassium Collection Time: 11/04/19 6:10 AM Result Value Ref Range K 3.2 (L) 3.5 - 4.9 mmol/L CBC with Differential Collection Time: 11/04/19 6:10 AM Result Value Ref Range WBC 9.56 3.80 - 11.00 K/uL RBC 3.17 (L) 4.20 - 5.70 M/uL Hemoglobin 8.3 (L) 13.2 - 17.0 g/dL Hematocrit 24.4 (L) 39.0 - 50.0 % MCV 76.9 (L) 80.0 - 100.0 fl MCH 26.3 (L) 27.0 - 34.0 pg MCHC 34.2 32.0 - 35.5 g/dL RDW-SD 40.7 37 - 53 fl Platelet Count 273 150 - 400 K/uL MPV 7.3 fl Diff Type AUTOMATED % Neutrophils 83.05 % % Lymphocytes 7.76 % Monocyte % 7.24 % Eosinophils % 1.14 % Basophils % 0.81 % Neutrophils, Absolute 7.94 (H) 1.90 - 7.40 K/uL Absolute Lymphocytes 0.74 (L) 1.00 - 3.90 K/uL Absolute Monocytes 0.69 0.00 - 0.80 K/uL Eosinophils, Absolute 0.11 0.00 - 0.50 K/uL Basophils, Absolute 0.08 0.00 - 0.10 K/uL C-Reactive Protein Collection Time: 11/04/19 6:10 AM Result Value Ref Range CRP 12.9 (H) <0.5 mg/dL Sedimentation Rate Collection Time: 11/04/19 6:10 AM Result Value Ref Range ESR 116 (H) 0 - 20 mm/Hr CK Total Collection Time: 11/04/19 6:10 AM Result Value Ref Range CK TOTAL 94 55 - 400 U/L POC Glucose Collection Time: 11/04/19 7:46 AM Result Value Ref Range Glucose, POC 157 (H) 65 - 99 mg/dL Component Latest Ref Rng & Units 10/31/2019 11/03/2019 11/04/2019 5:09 PM 4:19 AM 6:10 AM CRP <0.5 mg/dL 21.4 (H) 14.3 (H) 12.9 (H) Component Latest Ref Rng & Units 10/31/2019 11/03/2019 11/04/2019 5:09 PM 4:19 AM 6:10 AM ESR 0 - 20 mm/Hr 58 (H) 118 (H) 116 (H) Microbiology data: 10/31 MRSA nasal PCR positive 10/31 blood cultures with no growth to date 10/31 respiratory PCR panel negative Blood cultures from [facility] grew GPCs grew Streptococcus agalactiae Radiology data: MRI of the cervical spine with and without contrast IMPRESSION: 1. Advanced right-sided facet degenerative changes spanning C2 through C5. At C4-C5 there is a facet joint effusion with mild associated enhancement which could represent advanced degenerative changes versus septic joint. 2. Marked edema, asymmetric enlargement, in faint enhancement involving the right posterior neck musculature which appears to be somewhat centered around the right C4-C5 facet joint. Findings are concerning for infection/myositis but could potentially represent sequela of previous injury. 3. No epidural abscess, phlegmonous changes, or evidence of discitis osteomyelitis. 4. Advanced cervical spondylosis at C3 through C5. Changes are worst at C3-C4 where there is moderate to severe narrowing of the spinal canal with mild compression of the cervical cord. No definite cord signal abnormality is seen at any level but evaluation is limited due to motion artifact on the sagittal T2 and STIR images. Signed by: Steve Maria Jace Sign Date/Time: 10/31/2019 11:01 PM TTE Normal LV systolic function Mild enlargement of the ascending aorta No pulmonary hypertension No obvious vegetation PROBLEM LIST Principal Problem: Sepsis Active Problems: Essential hypertension Diabetes Neck pain Acute encephalopathy ASSESSMENT & PLAN Sepsis on admission -fever curve better, BP stable. Leukocytosis resolved. ESR 116. CRP trending down -Streptococcus bacteremia - Blood cultures from [facility] grew Streptococcus. Blood c ultures here with no growth -Patient presented with right neck pain/fever. MRI of the cervical spine with and without contrast shows myositis, possible right C4-C5 facet joint infection. MRI showed no evidenc e of discitis/osteomyelitis, epidural phlegmon or abscess. Appreciate Neurosurgery evaluati on - no surgery recommended -Transthoracic echocardiogram shows no evidence of infective endocarditis -MRSA nasal PCR positive. Contact isolation -Patient has comorbidities of type 2 diabetes mellitus, history of osteomyelitis/gangrene s tatus post left BKA. There is an ulcer at the lateral aspect of the left BKA for which woun d care has been requested; no overt signs of infection at the site currently. -Patient has no evidence of pneumonia or UTI -Patient denies IV drug use but drug screen is positive for amphetamines/amphetamines. HI V and viral hepatitis screen negative, immune to hepatitis B -GFR 81 -Noted Psychiatry recommendations -Day 5 of IV vancomycin, trough therapeutic 1. I would suggest continuing the patient on 28 days of IV vancomycin. Agree to continue to maintain vancomycin target trough between 15 and 20. Monitor renal function, vancomycin levels closely. Monitor CBC, ESR, CRP while on IV antibiotic therapy. The patient is NOT a candidate for home IV antibiotic therapy with positive drug screen for methamphetamine/amphetamines, history of not following up as an outpatient. Case management has been consulted and looking into [facility] bed. Hold off on central line placement until there is a definite plan for safe discharge. 2. Continue wound care as patient would allow Case discussed with patient's nurse and case management at time of clinical encounter Code Status: Full Code Rebeca Russell MD 11/04/2019 Stacey Figueroa RN - 11/04/2019 5:11 AM PSTPatient very emotional this shift. Called mother at ti me tell her that," I'm doing to be soon." "You're going to find my body somewhere burie d outside, where she is never going to find it." Parents came to bedside, very concerned abo ut he sounded on the phone. Would like to be present when the doctor is at bedside. Will pa ss on all concerns and care to oncoming shift. Chart check complete. Stacey Ceron RN Viral Zaragoza [facility] - 11/03/2019 6:12 PM PSTVanco trough returned at 16.4, within goal of 15-20 Will continue with current protocol: 750mg IV q12h. Melissa Madrid MD - 11/03/2019 4:16 PM PSTFormherman salcedo of this note might be different from the original. [facility] Service: Hospitalist Progress Note Pt: Kuldip Smith AGE/SEX: 54 y.o. male ROOM: [address] [place] [address] : 1965 PCP: Estrella Light PA-C ADMIT DATE: 10/31/2019 TODAY'S DATE: 11/03/2019 Hospital Day/Hospital Course: LOS: 3 days SUBJECTIVE: Patient seen and examine. Continue to complain of Right neck pain 02/08, his T max is 99.4 Scheduled Medications: adult multivitamin with minerals/iron 1 tablet Oral Daily vancomycin 750 mg Intravenous Q12H vancomycin per pharmacy Other Pharmacy Consult Continuous Infusions dextrose 10% sodium chloride 0.9% 100 mL/hr at 11/03/19 1144 PRN Medications acetaminophen, Hypoglycemia Management AND POCT Glucose AND dextrose AND dextro se 10%, HYDROcodone-acetaminophen, HYDROmorphone, ondansetron, Potassium replacement - NON I CU AND Potassium AND potassium chloride AND potassium chloride AND potassium chloride IVPB (other volumes & diluents) AND potassium chloride IVPB (other volumes & d iluents) Allergy: Allergies Allergen Reactions Penicillins Rash and Hives OBJECTIVE: Vitals: Temp: [37 C (98.6 F)-37.4 C (99.4 F)] 37 C (98.6 F) Pulse: [74-84] 77 Resp: [16-20] 20 BP: (131-187)/(75-90) 187/85 I&O Detailed Table: Intake/Output Summary (Last 24 hours) at 11/03/2019 1616 Last data filed at 11/03/2019 1435 Gross per 24 hour Intake 5192 ml Output 4150 ml Net 1042 ml Patient Vitals for the past 96 hrs: Weight 11/02/19 0347 75.8 kg (167 lb) 10/31/19 1637 78.6 kg (173 lb 4.5 oz) Physical Examination: Constitutional: Alert and oriented to person, place, and time. HEENT: tenderness on right side of neck. Cardiovascular: Normal rate, regular rhythm, normal heart sounds with S1 and S2, and intact distal pulses. Exam reveals no gallop and no friction rub. No murmur heard. Pulmonary/Chest: Effort normal and breath sounds normal. No stridor. No respiratory distres s. no wheezes. no rales. exhibits no tenderness. Abdominal: Soft. Bowel sounds are normal. exhibits no distension and no mass. There is no t enderness. There is no rebound and no guarding. Extremeties/Musculoskeletal: Normal range of motion.exhibits no tenderness. exhibits no ed yg. Normal equal peripheral pulses. Neurological: Alert and oriented to person, place, and time. No cranial nerve deficit. E xhibits normal muscle tone. No gross motor deficits. Skin: Skin is warm. No pallor. Patient has normal capillary refill, no mottling. Psychiatric: Has a normal mood and affect. Behavior is normal. Judgment normal. LABS: Recent Labs 11/03/1941811/02/19437 WBC 9.67 12.78* HGB 8.5* 8.3* HCT 25.0* 25.0* PLT 256 284 MCV 78.0* 78.7* Recent Labs Lab 11/03/19 1511 11/03/1941811/02/19 1643 11/02/19 0438 11/01/19 0405 NA -- 137 -- 135 -- 136 K 3.6 3.3* 3.5 3.3* < > 2.8* CL -- 105 -- 104 -- 105 CO2 -- 25 -- 22* -- 21* ANIONGAP -- 10 -- 12 -- 13 BUN -- 9 -- 15 -- 20 CREA -- 1.07 -- 1.14 -- 1.32* CALCIUM -- 7.8* -- 7.9* -- 8.2* ALBUMIN -- 3.1* -- 3.1* -- 3.2* ALKPHOS -- 141* -- 98 -- 94 ALT -- 13 -- 12 -- 16 AST -- 15 -- 16 -- 21 MG -- -- -- 1.9 -- 1.3* < > = values in this interval not displayed. Recent Labs 11/03/1911/02/20 0438 11/01/19 0405 GLU 176* 192* 113* No results for input(s): TROPONIN, BNP in the last 72 hours. No results for input(s): PROTIME, INR, PTT in the last 168 hours. Recent Labs Lab 10/31/19 1709 IRON 10* FERRITIN 76 [id number] 565 FOLATE 5.7 Recent Labs Lab 11/03/19 0419 10/31/19 1736 10/31/19 1709 LACTATE -- 1.5 -- CRP 14.3* -- 21.4* ESR 118* -- 58* No results for input(s): AMYLASE, LIPASE in the last 168 hours. No results for input(s): TRIG, CHOL, HDL, LDL in the last 168 hours. No results for input(s): AMMONIA in the last 168 hours. Mri Cervical Spine W Wo Contrast Result Date: 10/31/2019 MRI CERVICAL SPINE WITHOUT AND WITH CONTRAST CLINICAL INFORMATION: Neck pain, bone destruct ion on xray. rule out abscess or osteo COMPARISON: CT neck 10/31/2019. PROCEDURE: Sagittal T2 , axial T2, sagittal T1, axial T1, sagittal STIR, axial T1 enhanced, and sagittal T1 enhance d sequences. Contrast: 7 ML GADAVIST IV. FINDINGS: Motion artifact on the sagittal T2 and ST IR images and axial images limits evaluation of the cervical cord. Alignment: None alignment is unchanged with mild anterolisthesis of C4-C5 and mild retrolisthesis C5-C6. Vertebrae an d vertebral marrow signal: No marrow edema. No evidence of fracture. No evidence of discit is osteomyelitis. Cervicomedullary junction and cervical cord: Limited evaluation of the cer vical cord due to motion artifact on the sagittal images. No definite cord signal alteratio n identified. Cervical disc levels: Mild to moderate disc height loss C5-C6. Advance multil evel facet arthropathy which is severe on the right at C2-C3, C3-C4, and C4-C5. As seen on the previous CT at C4-C5 there is an associated facet joint effusion with widening of the fa cet joint and mild enhancement on postcontrast images. Additionally, there is edema, face e nhancement, and asymmetric enlargement throughout the right posterolateral neck musculature. No rim enhancing collection to suggest abscess formation. Combination of posterior disc pr otrusion and buckling of ligamentum flavum at C3-C4 result in moderate to severe narrowing o f the spinal canal with mild compression of the cervical cord. No definite cord signal abno rmality. Combination of a central disc protrusion and buckling of the ligamentum flavum at C4-C5 results in moderate narrowing of spinal canal with possible minimal cord compression v ersus ventral cord contouring. Mild retrolisthesis at C5-C6 mild contouring of the ventral cord. Paraspinal musculature and paravertebral soft tissues: See above 1. Advanced right-sided facet degenerative changes spanning C2 through C5. At C4-C5 there is a facet joint effusion with mild associated enhancement which could represent advanced de generative changes versus septic joint. 2. Marked edema, asymmetric enlargement, in faint en hancement involving the right posterior neck musculature which appears to be somewhat center ed around the right C4-C5 facet joint. Findings are concerning for infection/myositis but c ould potentially represent sequela of previous injury. 3. No epidural abscess, phlegmonous c hanges, or evidence of discitis osteomyelitis. 4. Advanced cervical spondylosis at C3 throug h C5. Changes are worst at C3-C4 where there is moderate to severe narrowing of the spinal canal with mild compression of the cervical cord. No definite cord signal abnormality is se en at any level but evaluation is limited due to motion artifact on the sagittal T2 and STIR images. Signed by: Steve Maria Jace Sign Date/Time: 10/31/2019 11:[address] Maxillofacial Wo Contrast Result Date: 10/13/2019 CT MAXILLOFACIAL WO CONTRAST 10/13/2019 1:09 PM HISTORY:?Facial pain. COMPARISON: None. PROT OCOL: Thin section axial CT images of the maxillofacial structures were obtained with shoemaker l and sagittal reformations. FINDINGS: Imaged portions of the brain: Normal. Orbits: The pat ient is status post bilateral cataract surgery. Paranasal sinuses: There is mucosal thickeni ng of the bilateral frontal and ethmoid sinuses. There is narrowing of the infundibulum of the right ostiomeatal complex. A mucous retention cyst and mucosal thickening is seen of th e left maxillary sinus to a greater degree than the right side. Maxilla and mandible: Normal . Zygoma/zygomatic arches and pterygoid plates: Normal. Temporal bones: Normal. Nasal bones: Asymmetric swelling of the soft tissues anterior to the left alveolar ridge of the maxilla is noted. This is noted beneath the left nasolabial fold. No osseous erosions are noted. There is questionable mild thickening of the left nasal ala relative to the right side. Cran iocervical junction and imaged portions of the cervical spine: Normal. IMPRESSION- 1. No acu te facial fracture. 2. Mucosal thickening is seen along the ethmoid and maxillary sinuses. 3 . Soft tissue fullness is noted anterior to the left alveolar ridge and along the left nasol abial fold which could suggest inflammation. A preliminary report was sent by [employer] with no significant discrepancy on 10/13/2019 1:38 PM. Dictated and Signed by: Herve Ibrahim MD Electronically signed: 10/13/2019 1:57 PM 1. No acute facial fracture. 2. Mucosal thickening is seen along the ethmoid and maxillary sinuses. 3. Soft tissue fullness is noted anterior to the left alveolar ridge and along the left nasolabial fold which could suggest inflammation. Signed by: Ellen Foster, Jorge Sign Date/Time: 10/13/2019 1:38 PM <NWCOMORBIDITIES> PROBLEM LIST Principal Problem: Sepsis Active Problems: Essential hypertension Diabetes Neck pain Acute encephalopathy ASSESSMENT & PLAN 1. Sepsis likely secondary to right side neck infection/myositis, MRI neck was done. No abs cess or osteomyelitis. MRSA screen is positive, he initially started Rocephin that was d/c and Vancomycin will be continued, Dr. Russell was consulted, leucocytosis is improving, culture from outside facil ity grew gram positive cocci, monitor and adjust antibiotics per ID he had meth screen positive, he denied IV drug abuse. Electrolyte replacement. 2. Hypertension, will recheck renal function and resume lisinopril 3. Diabetes mellitus type 2 diet controlled 4. Anemia microcytic, likely iron defeciency, will start oral iron, FOB. 5. Acute renal failure, continue IV hydration, 6. DVT prophylaxis SCD and Heparin. Melissa Martin MD 11/03/2019 4:16 PM Robert Mcgill RN - 11/03/2019 10:31 AM NICK has requested follow up microbiology report from [facility] for 2/ - there is a RN communication as such. Robert Ortiz RN Rebeca Jean MD - 11/03/2019 10:15 AM PST [facility] Service: Infectious Disease Progress Note Hospital Day: LOS: 3 days Post-Op Day: * No surgery found * SUBJECTIVE Patient Summary: Re: Neck pain and fever From ID consult note on 11/01: The patient is a 54 y.o. male with significant past medical history of type 2 diabetes mellitus, hypertension, peripheral vascular disease, history of h ursula with penicillin. He was admitted at [facility] in November, for sepsis secondary to left diabetic foot infection. He was found to have cellulitis, gangrene and osteomyelitis of th e fourth toe. He underwent left fourth ray amputation. He subsequently required left BKA. On 10/13, he had an ER evaluation for epistaxis. He was diagnosed to have acute recurrent f rontal sinusitis and prescribed 7 days of levofloxacin and 5 days of prednisone. He presented on 10/31/2019 at [facility] in [place], [place] complaining of f ever, chills, severe neck pain which she described as starting the prior night. ER work-up showed WBC of 30,000. Neck CT scan showed C3-C4 severe chronic facet arthropathy, subchondr al lytic changes and extensive surrounding soft tissue edema concerning for septic arthritis and surrounding myositis with asymmetric soft tissue adjacent to the right lateral epidural region raising question of epidural phlegmon. Prior to transfer to [facility], Neurosurgery had been consulted. They recommended hospitalist admission and to proceed with MRI of the neck with contrast. The patient denied IV drug use to the admission hospitalist and also denied it during this clinical encounter. Dr. Butler noted WBC of 31,000, BUN 22, creatinine 1.43. Chest x-ray w as described to be negative and urinalysis showed no evidence of UTI. At [facility], the patient received IV vancomycin and ceftriaxone. He was continued o n IV vancomycin on admission. Pharmacy has been consulted for vancomycin dosing with target trough of 15-20. Dr. Waggoner saw the patient in formal consultation and reviewed cervical spine MRI with asse ssment of muscle and alejandra-fascial tissue infection with no evidence of epidural hematoma. Margarita ramirez recommended continuing treatment for osteomyelitis/myositis. Patient complained of 15 out of 10 neck pain severity, out of proportion for his appearance . On repeating the question, he mentioned that his pain was 10 out of 10. He denies new nu mbness, weakness at his extremities. He reports being tired and sleepy. He denies drug use , recent falls, dysuria, diarrhea, abdominal pain, nausea, vomiting, cough, chest pain. He denies pain at the left BKA site but his mother is concerned about an ulcer at the lateral B KA stump. On 11/01, patient was noted to be somnolent, but did eventually wake up. Ulcer at left late ral BKA stump was noted and wound care was consulted. Events Overnight: Tele-Psychiatry consult last night. Nursing staff reported intermi ttent periods of aggression. Fever improved with T-max of 99.6 F in 24 hours. Intermittently hypertensive. Reports less severe neck pain, 3-5/10 No reported vomiting, diarrhea Scheduled Medications adult multivitamin with minerals/iron 1 tablet Oral Daily vancomycin 750 mg Intravenous Q12H vancomycin per pharmacy Other Pharmacy Consult Continuous Infusions dextrose 10% sodium chloride 0.9% 100 mL/hr at 11/02/19 2356 PRN Medications acetaminophen, Hypoglycemia Management AND POCT Glucose AND dextrose AND dextro se 10%, HYDROcodone-acetaminophen, HYDROmorphone, ondansetron, Potassium replacement - NON I CU AND Potassium AND potassium chloride AND potassium chloride AND potassium chloride IVPB (other volumes & diluents) AND potassium chloride IVPB (other volumes & d iluents) OBJECTIVE Vital Signs: Vitals: 11/03/19 0823 BP: 153/85 Pulse: 74 Resp: 18 Temp: 37 C (98.6 F) Physical Exam Vital signs have been reviewed General: Not in acute physical distress.Sleepy HEENT: Normocephalic. Anicteric sclera. Conjunctival pallor noted. No nasal mucosal lesi ons. No sinus tenderness. Moist oral mucosa with no oral thrush or ulcers. Neck is supple with no discrete mass palpated. He is tender to palpation at the right side and posterior neck. Lungs: No adventitious breath sounds Cardiovascular: Normal rate. Regular rhythm. No murmur or rubs Abdomen: No distention. Soft. No tenderness, rebound or guarding Skin: No drug rash. Peripheral IV site is unremarkable Left BKA stump with no erythema, swelling, warmth or tenderness to palpation there is an ul cer at the lateral aspect of the stump with pink base, no foul odor, no purulent drainage or visible deep tissue. Neurologic: Oriented x3. Motor strength intact upper and lower extremities. Appreciates l ight touch at both upper extremities. No tremors. DATA Recent Results (from the past 24 hour(s)) POC Glucose Collection Time: 11/02/19 12:07 PM Result Value Ref Range Glucose, POC 266 (H) 65 - 99 mg/dL Potassium Collection Time: 11/02/19 4:43 PM Result Value Ref Range K 3.5 3.5 - 4.9 mmol/L POC Glucose Collection Time: 11/02/19 5:10 PM Result Value Ref Range Glucose, POC 254 (H) 65 - 99 mg/dL POC Glucose Collection Time: 11/02/19 8:41 PM Result Value Ref Range Glucose, POC 208 (H) 65 - 99 mg/dL Comprehensive Metabolic Panel Collection Time: 11/03/19 4:19 AM Result Value Ref Range Na 137 135 - 145 mmol/L K 3.3 (L) 3.5 - 4.9 mmol/L Cl 105 99 - 109 mmol/L CO2 25 23 - 32 mmol/L Anion Gap 10 5 - 20 mmol/L Glucose 176 (H) 65 - 99 mg/dL BUN 9 8 - 25 mg/dL Creatinine 1.07 0.70 - 1.30 mg/dL BUN/Creatinine Ratio 8 Calcium 7.8 (L) 8.5 - 10.5 mg/dL Protein, Total 6.2 (L) 6.3 - 8.2 g/dL Albumin 3.1 (L) 3.6 - 5.0 g/dL Globulin 3.1 1.3 - 4.9 g/dL A/G Ratio 1.0 1.0 - 2.4 BILIRUBIN, TOTAL 0.6 0.1 - 1.5 mg/dL ALK PHOS 141 (H) 35 - 115 U/L AST 15 10 - 45 U/L ALT 13 10 - 65 U/L Estimated GFR >60 >60 mL/min/1.73m2 CBC with Differential Collection Time: 11/03/19 4:19 AM Result Value Ref Range WBC 9.67 3.80 - 11.00 K/uL RBC 3.20 (L) 4.20 - 5.70 M/uL Hemoglobin 8.5 (L) 13.2 - 17.0 g/dL Hematocrit 25.0 (L) 39.0 - 50.0 % MCV 78.0 (L) 80.0 - 100.0 fl MCH 26.5 (L) 27.0 - 34.0 pg MCHC 34.0 32.0 - 35.5 g/dL RDW-SD 40.7 37 - 53 fl Platelet Count 256 150 - 400 K/uL MPV 7.1 fl Diff Type AUTOMATED % Neutrophils 80.68 % % Lymphocytes 9.26 % Monocyte % 7.45 % Eosinophils % 1.84 % Basophils % 0.77 % Neutrophils, Absolute 7.80 (H) 1.90 - 7.40 K/uL Absolute Lymphocytes 0.90 (L) 1.00 - 3.90 K/uL Absolute Monocytes 0.72 0.00 - 0.80 K/uL Eosinophils, Absolute 0.18 0.00 - 0.50 K/uL Basophils, Absolute 0.08 0.00 - 0.10 K/uL Sedimentation Rate Collection Time: 11/03/19 4:19 AM Result Value Ref Range ESR 118 (H) 0 - 20 mm/Hr C-Reactive Protein Collection Time: 11/03/19 4:19 AM Result Value Ref Range CRP 14.3 (H) <0.5 mg/dL POC Glucose Collection Time: 11/03/19 8:26 AM Result Value Ref Range Glucose, POC 158 (H) 65 - 99 mg/dL ECHO Complete Collection Time: 11/03/19 8:48 AM Result Value Ref Range LVEF-TTE TRANSTHORACIC ECHO 65 % Inferior Vena Cava Diameter at Expiration 1.32 cm RA PRESSURE 3 mmHg LVIDd 4.99 cm FS 41 % LA volume 70.74 mL Ascending aorta 4.27 cm AV mean gradient 4.15 mmHg Aortic Valve Area by Continuity VTI 3.72 cm2 PV peak gradient 1.67 mmHg LVOT diameter 2.37 cm LVOT peak joana 113.61 cm/s LVOT peak VTI 24.32 cm AV peak joana 131.52 cm/s AV VTI 28.86 cm AV peak gradient 6.92 mmHg PV mean gradient 0.93 mmHg LA Volume Index 37 mL/m2 AV LVOT Peak Gradient 5.16 mmHg AV LVOT Mean Gradient 2.76 mmHg TR Peak Gradient 25 mmHg TR Velocity 248 cm PI Peak Velocity 64.69 cm/s LV Diastolic Length 4C 8.14 cm RV Diastolic Basal Diameter 3.95 cm LV Garcia's Biplane EF 65 % LV ED Volume (Garcia's) 99.19 ml LV ED Volume Index 52 ml/m2 LV ES Volume 34.54 ml LVOT Mean Velocity 79.63 cm/s RVSP Estimated 28 mmHg MV Deceleration Time 221.89 msec MV E/A Ratio 1.12 MV Peak A-Wave 81.46 cm/s MV Peak E-Wave 91.49 cm/s PV Mean Velocity 46.4 cm/s AV Mean Velocity 98.16 cm/s LA Area 20.63 cm2 LA Major 0.2886 cm LV ES Volume Index 18 ml/m2 Vitals Heart Rate Rest 71 Vitals Height 175.0 Vitals Weight 76.00 IVS Diastolic Thickness MM 1.04 cm LVPW Diastolic Thickness MM 0.99 cm IVS Systolic Thickness MM 1.48 cm LV Systolic Diameter MM 2.96 cm LVPW Systolic Thickness MM 1.76 cm Component Latest Ref Rng & Units 10/31/2019 11/03/2019 5:09 PM 4:19 AM ESR 0 - 20 mm/Hr 58 (H) 118 (H) Component Latest Ref Rng & Units 10/31/2019 11/03/2019 5:09 PM 4:19 AM CRP <0.5 mg/dL 21.4 (H) 14.3 (H) Component Latest Ref Rng & Units 11/02/2019 11/03/2019 4:38 AM 5:19 PM Vancomycin, Trough 10 - 20 ug/mL 19.7 16.4 Microbiology data: 10/31 MRSA nasal PCR positive 10/31 blood cultures with no growth to date 10/31 respiratory PCR panel negative Blood cultures from [facility] grew GPCs in chains in aerobic/anaerobic bottles Radiology data: MRI of the cervical spine with and without contrast IMPRESSION: 1. Advanced right-sided facet degenerative changes spanning C2 through C5. At C4-C5 there is a facet joint effusion with mild associated enhancement which could represent advanced degenerative changes versus septic joint. 2. Marked edema, asymmetric enlargement, in faint enhancement involving the right posterior neck musculature which appears to be somewhat centered around the right C4-C5 facet joint. Findings are concerning for infection/myositis but could potentially represent sequela of previous injury. 3. No epidural abscess, phlegmonous changes, or evidence of discitis osteomyelitis. 4. Advanced cervical spondylosis at C3 through C5. Changes are worst at C3-C4 where there is moderate to severe narrowing of the spinal canal with mild compression of the cervical cord. No definite cord signal abnormality is seen at any level but evaluation is limited due to motion artifact on the sagittal T2 and STIR images. Signed by: Steve Maria Jace Sign Date/Time: 10/31/2019 11:01 PM TTE pending PROBLEM LIST Principal Problem: Sepsis Active Problems: Essential hypertension Diabetes Neck pain Acute encephalopathy ASSESSMENT & PLAN Sepsis on admission -fever curve better, BP stable. Leukocytosis resolved. ESR increased. CRP trended down -Gram positive bacteremia - Blood cultures from [facility] grew GPCs in chains in aerob ic/anaerobic bottles. Blood cultures here with no growth -Patient presented with right neck pain/fever. MRI of the cervical spine with and without contrast shows myositis, possible right C4-C5 facet joint infection. MRI showed no evidenc e of discitis/osteomyelitis, epidural phlegmon or abscess. Appreciate Neurosurgery evaluati on - no surgery recommended -MRSA nasal PCR positive. Contact isolation -Patient has comorbidities of type 2 diabetes mellitus, history of osteomyelitis/gangrene s tatus post left BKA. There is an ulcer at the lateral aspect of the left BKA for which woun d care has been requested; no overt signs of infection at the site currently. -Patient has no evidence of pneumonia or UTI -Patient denies IV drug use but drug screen is positive for amphetamines/amphetamines. HI V and viral hepatitis screen negative, immune to hepatitis B -GFR 81 -Noted Psychiatry recommendations 1. Follow-up on microbiology data from outside hospital - follow up on final ID/susceptibi lity 2. Follow up on TTE 3. Recommend continuing IV vancomycin for now with target trough of 15-20. Current trough t herapeutic. Further antibiotic recommendation depending on results of above work-up. The patient is NOT a candidate for home IV antibiotic therapy with positive drug screen for methamphetamine/amphetamines, history of not following up as an outpatient. 4. Continue wound care Case discussed with Dr. Martin Code Status: Full Code Rebeca Russell MD 11/03/2019 Stacey Figueroa RN - 11/03/2019 4:18 AM PSTPatient continues to have intermittent periods of aggr ession with staff. Patient medicated X1 for pain. BP elevated this AM. Will recheck. Mother at bed side throughout shift. Belongs secured with security. Will pass on all concerns and c are to oncoming shift. Chart check complete. Stacey Ceron RN Melissa Madrid MD - 11/02/2019 12:24 PM PST [facility] Service: Hospitalist Progress Note Pt: Kuldip Smith AGE/SEX: 54 y.o. male ROOM: [facility]5/7105-01 : 1965 PCP: Estrella Light PA-C ADMIT DATE: 10/31/2019 TODAY'S DATE: 11/02/2019 Hospital Day/Hospital Course: LOS: 2 days SUBJECTIVE: Patient seen and examine. Right neck pain is improving, his T max is 37.7 He denies chest pain or shortness of breath. Scheduled Medications: adult multivitamin with minerals/iron 1 tablet Oral Daily vancomycin 750 mg Intravenous Q12H vancomycin per pharmacy Other Pharmacy Consult Continuous Infusions dextrose 10% sodium chloride 0.9% 100 mL/hr at 11/02/19 0338 PRN Medications acetaminophen, Hypoglycemia Management AND POCT Glucose AND dextrose AND dextro se 10%, HYDROcodone-acetaminophen, HYDROmorphone, ondansetron, Potassium replacement - NON I CU AND Potassium AND potassium chloride AND potassium chloride AND potassium chloride IVPB (other volumes & diluents) AND potassium chloride IVPB (other volumes & d iluents) Allergy: Allergies Allergen Reactions Penicillins Rash and Hives OBJECTIVE: Vitals: Temp: [36.9 C (98.4 F)-37.7 C (99.9 F)] 37.1 C (98.7 F) Pulse: [75-91] 75 Resp: [16-19] 17 BP: (128-164)/(75-94) 135/75 I&O Detailed Table: Intake/Output Summary (Last 24 hours) at 11/02/2019 1224 Last data filed at 11/02/2019 1059 Gross per 24 hour Intake 5899 ml Output 3625 ml Net 2274 ml Patient Vitals for the past 96 hrs: Weight 11/02/19 0347 75.8 kg (167 lb) 10/31/19 1637 78.6 kg (173 lb 4.5 oz) Physical Examination: Constitutional: Alert and oriented to person, place, and time. HEENT: tenderness on right side of neck. Cardiovascular: Normal rate, regular rhythm, normal heart sounds with S1 and S2, and intact distal pulses. Exam reveals no gallop and no friction rub. No murmur heard. Pulmonary/Chest: Effort normal and breath sounds normal. No stridor. No respiratory distres s. no wheezes. no rales. exhibits no tenderness. Abdominal: Soft. Bowel sounds are normal. exhibits no distension and no mass. There is no t enderness. There is no rebound and no guarding. Extremeties/Musculoskeletal: Normal range of motion.exhibits no tenderness. exhibits no ed yg. Normal equal peripheral pulses. Neurological: Alert and oriented to person, place, and time. No cranial nerve deficit. E xhibits normal muscle tone. No gross motor deficits. Skin: Skin is warm. No pallor. Patient has normal capillary refill, no mottling. Psychiatric: Has a normal mood and affect. Behavior is normal. Judgment normal. LABS: Recent Labs 11/02/1943711/01/19 0405 WBC 12.78* 16.29* HGB 8.3* 8.1* HCT 25.0* 24.2* PLT 284 250 MCV 78.7* 78.8* Recent Labs Lab 11/02/1943711/01/19195811/01/19 0405 NA 135 -- 136 K 3.3* 3.5 2.8* CL 104 -- 105 CO2 22* -- 21* ANIONGAP 12 -- 13 BUN 15 -- 20 CREA 1.14 -- 1.32* CALCIUM 7.9* -- 8.2* ALBUMIN 3.1* -- 3.2* ALKPHOS 98 -- 94 ALT 12 -- 16 AST 16 -- 21 MG 1.9 -- 1.3* Recent Labs 11/02/19 0438 11/01/19 0405 GLU 192* 113* No results for input(s): TROPONIN, BNP in the last 72 hours. No results for input(s): PROTIME, INR, PTT in the last 168 hours. Recent Labs Lab 10/31/19 1709 IRON 10* FERRITIN 76 [id number] 565 FOLATE 5.7 Recent Labs Lab 10/31/19 1736 10/31/19 1709 LACTATE 1.5 -- CRP -- 21.4* ESR -- 58* No results for input(s): AMYLASE, LIPASE in the last 168 hours. No results for input(s): TRIG, CHOL, HDL, LDL in the last 168 hours. No results for input(s): AMMONIA in the last 168 hours. Mri Cervical Spine W Wo Contrast Result Date: 10/31/2019 MRI CERVICAL SPINE WITHOUT AND WITH CONTRAST CLINICAL INFORMATION: Neck pain, bone destruct ion on xray. rule out abscess or osteo COMPARISON: CT neck 10/31/2019. PROCEDURE: Sagittal T2 , axial T2, sagittal T1, axial T1, sagittal STIR, axial T1 enhanced, and sagittal T1 enhance d sequences. Contrast: 7 ML GADAVIST IV. FINDINGS: Motion artifact on the sagittal T2 and ST IR images and axial images limits evaluation of the cervical cord. Alignment: None alignment is unchanged with mild anterolisthesis of C4-C5 and mild retrolisthesis C5-C6. Vertebrae an d vertebral marrow signal: No marrow edema. No evidence of fracture. No evidence of discit is osteomyelitis. Cervicomedullary junction and cervical cord: Limited evaluation of the cer vical cord due to motion artifact on the sagittal images. No definite cord signal alteratio n identified. Cervical disc levels: Mild to moderate disc height loss C5-C6. Advance multil evel facet arthropathy which is severe on the right at C2-C3, C3-C4, and C4-C5. As seen on the previous CT at C4-C5 there is an associated facet joint effusion with widening of the fa cet joint and mild enhancement on postcontrast images. Additionally, there is edema, face e nhancement, and asymmetric enlargement throughout the right posterolateral neck musculature. No rim enhancing collection to suggest abscess formation. Combination of posterior disc pr otrusion and buckling of ligamentum flavum at C3-C4 result in moderate to severe narrowing o f the spinal canal with mild compression of the cervical cord. No definite cord signal abno rmality. Combination of a central disc protrusion and buckling of the ligamentum flavum at C4-C5 results in moderate narrowing of spinal canal with possible minimal cord compression v ersus ventral cord contouring. Mild retrolisthesis at C5-C6 mild contouring of the ventral cord. Paraspinal musculature and paravertebral soft tissues: See above 1. Advanced right-sided facet degenerative changes spanning C2 through C5. At C4-C5 there is a facet joint effusion with mild associated enhancement which could represent advanced de generative changes versus septic joint. 2. Marked edema, asymmetric enlargement, in faint en hancement involving the right posterior neck musculature which appears to be somewhat center ed around the right C4-C5 facet joint. Findings are concerning for infection/myositis but c ould potentially represent sequela of previous injury. 3. No epidural abscess, phlegmonous c hanges, or evidence of discitis osteomyelitis. 4. Advanced cervical spondylosis at C3 throug h C5. Changes are worst at C3-C4 where there is moderate to severe narrowing of the spinal canal with mild compression of the cervical cord. No definite cord signal abnormality is se en at any level but evaluation is limited due to motion artifact on the sagittal T2 and STIR images. Signed by: Steve Maria Jace Sign Date/Time: 10/31/2019 11:[address] Maxillofacial Wo Contrast Result Date: 10/13/2019 CT MAXILLOFACIAL WO CONTRAST 10/13/2019 1:09 PM HISTORY:?Facial pain. COMPARISON: None. PROT OCOL: Thin section axial CT images of the maxillofacial structures were obtained with shoemaker l and sagittal reformations. FINDINGS: Imaged portions of the brain: Normal. Orbits: The pat ient is status post bilateral cataract surgery. Paranasal sinuses: There is mucosal thickeni ng of the bilateral frontal and ethmoid sinuses. There is narrowing of the infundibulum of the right ostiomeatal complex. A mucous retention cyst and mucosal thickening is seen of th e left maxillary sinus to a greater degree than the right side. Maxilla and mandible: Normal . Zygoma/zygomatic arches and pterygoid plates: Normal. Temporal bones: Normal. Nasal bones: Asymmetric swelling of the soft tissues anterior to the left alveolar ridge of the maxilla is noted. This is noted beneath the left nasolabial fold. No osseous erosions are noted. There is questionable mild thickening of the left nasal ala relative to the right side. Cran iocervical junction and imaged portions of the cervical spine: Normal. IMPRESSION- 1. No acu te facial fracture. 2. Mucosal thickening is seen along the ethmoid and maxillary sinuses. 3 . Soft tissue fullness is noted anterior to the left alveolar ridge and along the left nasol abial fold which could suggest inflammation. A preliminary report was sent by [facility] with no significant discrepancy on 10/13/2019 1:38 PM. Dictated and Signed by: Herve Ibrahim MD Electronically signed: 10/13/2019 1:57 PM 1. No acute facial fracture. 2. Mucosal thickening is seen along the ethmoid and maxillary sinuses. 3. Soft tissue fullness is noted anterior to the left alveolar ridge and along the left nasolabial fold which could suggest inflammation. Signed by: Ellen Foster, Jorge Sign Date/Time: 10/13/2019 1:38 PM <NWCOMORBIDITIES> PROBLEM LIST Principal Problem: Sepsis Active Problems: Essential hypertension Diabetes Neck pain ASSESSMENT & PLAN 1. Sepsis likely secondary to right side neck infection/myositis, MRI neck was done. No abs cess or osteomyelitis. MRSA screen is positive, he initially started Rocephin that was d/c and Vancomycin will be continued, Dr. Russell was consulted, leucocytosis is improving, will get final culture fro m outside facility, monitor and adjust antibiotics per ID he had meth screen positive, he denied IV drug abuse. Electrolyte replacement. 2. Hypertension, will recheck renal function and resume lisinopril 3. Diabetes mellitus type 2 diet controlled 4. Anemia microcytic, likely iron defeciency, will start oral iron, FOB. 5. Acute renal failure, continue IV hydration, 6. DVT prophylaxis SCD and Heparin. Melissa Martin MD 11/02/2019 12:24 PM Jesika Jean MD - 11/02/2019 11:14 AM PST [facility] Service: Infectious Disease Progress Note Hospital Day: LOS: 2 days Post-Op Day: * No surgery found * SUBJECTIVE Patient Summary: Re: Neck pain and fever From ID consult note on 11/01: The patient is a 54 y.o. male with significant past medical history of type 2 diabetes mellitus, hypertension, peripheral vascular disease, history of h ursula with penicillin. He was admitted at [facility] in November, for sepsis secondary to left diabetic foot infection. He was found to have cellulitis, gangrene and osteomyelitis of th e fourth toe. He underwent left fourth ray amputation. He subsequently required left BKA. On 10/13, he had an ER evaluation for epistaxis. He was diagnosed to have acute recurrent f rontal sinusitis and prescribed 7 days of levofloxacin and 5 days of prednisone. He presented on 10/31/2019 at [facility] in [place], [place] complaining of f ever, chills, severe neck pain which she described as starting the prior night. ER work-up showed WBC of 30,000. Neck CT scan showed C3-C4 severe chronic facet arthropathy, subchondr al lytic changes and extensive surrounding soft tissue edema concerning for septic arthritis and surrounding myositis with asymmetric soft tissue adjacent to the right lateral epidural region raising question of epidural phlegmon. Prior to transfer to [facility], Neurosurgery had been consulted. They recommended hospitalist admission and to proceed with MRI of the neck with contrast. The patient denied IV drug use to the admission hospitalist and also denied it during this clinical encounter. Dr. Butler noted WBC of 31,000, BUN 22, creatinine 1.43. Chest x-ray w as described to be negative and urinalysis showed no evidence of UTI. At [facility], the patient received IV vancomycin and ceftriaxone. He was continued o n IV vancomycin on admission. Pharmacy has been consulted for vancomycin dosing with target trough of 15-20. Dr. Waggoner saw the patient in formal consultation and reviewed cervical spine MRI with asse ssment of muscle and alejandra-fascial tissue infection with no evidence of epidural hematoma. H e recommended continuing treatment for osteomyelitis/myositis. Patient complained of 15 out of 10 neck pain severity, out of proportion for his appearance . On repeating the question, he mentioned that his pain was 10 out of 10. He denies new nu mbness, weakness at his extremities. He reports being tired and sleepy. He denies drug use , recent falls, dysuria, diarrhea, abdominal pain, nausea, vomiting, cough, chest pain. He denies pain at the left BKA site but his mother is concerned about an ulcer at the lateral B KA stump. On 11/01, patient was noted to be somnolent, but did eventually wake up. Ulcer at left late ral BKA stump was noted and wound care was consulted. Events Overnight: T-max of 99.8 F in 24 hours. Hemodynamically stable. Intermitten tly hypertensive. Wound care nurse saw the patient yesterday and noted interaction/wound care recommendations . Patient complained of severe, 10/10 neck pain but declined pain medications. He was report ed to be agitated last night and wanted to leave AMA. He states his neck pain is improving, 3/10 currently. He denies headache, new weakness or numbness. He denies pain at L BKA site. He has no chest pain, palpitations, cough, dyspnea, abdominal pain, nausea, vomiting, diarr hea or new skin rash/ulcers Scheduled Medications adult multivitamin with minerals/iron 1 tablet Oral Daily vancomycin 750 mg Intravenous Q12H vancomycin per pharmacy Other Pharmacy Consult Continuous Infusions dextrose 10% sodium chloride 0.9% 100 mL/hr at 11/02/19 0338 PRN Medications acetaminophen, Hypoglycemia Management AND POCT Glucose AND dextrose AND dextro se 10%, HYDROcodone-acetaminophen, HYDROmorphone, ondansetron, Potassium replacement - NON I CU AND Potassium AND potassium chloride AND potassium chloride AND potassium chloride IVPB (other volumes & diluents) AND potassium chloride IVPB (other volumes & d iluents) OBJECTIVE Vital Signs: Vitals: 11/02/19 0740 BP: 128/81 Pulse: 91 Resp: 19 Temp: 36.9 C (98.4 F) Physical Exam Vital signs have been reviewed General: Not in acute physical distress. Awake, alert. Seen with mother at bedside HEENT: Normocephalic. Anicteric sclera. Conjunctival pallor noted. No nasal mucosal lesi ons. No sinus tenderness. Moist oral mucosa with no oral thrush or ulcers. Neck is supple with no discrete mass palpated. He is tender to palpation at the right side and posterior neck. Lungs: No adventitious breath sounds Cardiovascular: Normal rate. Regular rhythm. No murmur or rubs Abdomen: No distention. Soft. No tenderness, rebound or guarding Skin: No drug rash. Peripheral IV site is unremarkable Left BKA stump with no erythema, swelling, warmth or tenderness to palpation there is an ul cer at the lateral aspect of the stump with pink base, no foul odor, no purulent drainage or visible deep tissue. Neurologic: Oriented x3. Motor strength intact upper and lower extremities. Appreciates l ight touch at both upper extremities. No tremors. Psychiatric: Anxious DATA Recent Results (from the past 24 hour(s)) POC Glucose Collection Time: 11/01/19 11:54 AM Result Value Ref Range Glucose, POC 147 (H) 65 - 99 mg/dL POC Glucose Collection Time: 11/01/19 5:06 PM Result Value Ref Range Glucose, POC 208 (H) 65 - 99 mg/dL Potassium Collection Time: 11/01/19 7:59 PM Result Value Ref Range K 3.5 3.5 - 4.9 mmol/L POC Glucose Collection Time: 11/01/19 9:24 PM Result Value Ref Range Glucose, POC 186 (H) 65 - 99 mg/dL Comprehensive Metabolic Panel Collection Time: 11/02/19 4:38 AM Result Value Ref Range Na 135 135 - 145 mmol/L K 3.3 (L) 3.5 - 4.9 mmol/L Cl 104 99 - 109 mmol/L CO2 22 (L) 23 - 32 mmol/L Anion Gap 12 5 - 20 mmol/L Glucose 192 (H) 65 - 99 mg/dL BUN 15 8 - 25 mg/dL Creatinine 1.14 0.70 - 1.30 mg/dL BUN/Creatinine Ratio 13 Calcium 7.9 (L) 8.5 - 10.5 mg/dL Protein, Total 6.1 (L) 6.3 - 8.2 g/dL Albumin 3.1 (L) 3.6 - 5.0 g/dL Globulin 3.0 1.3 - 4.9 g/dL A/G Ratio 1.0 1.0 - 2.4 BILIRUBIN, TOTAL 0.8 0.1 - 1.5 mg/dL ALK PHOS 98 35 - 115 U/L AST 16 10 - 45 U/L ALT 12 10 - 65 U/L Estimated GFR >60 >60 mL/min/1.73m2 Magnesium Collection Time: 11/02/19 4:38 AM Result Value Ref Range Magnesium 1.9 1.7 - 2.4 mg/dL CBC with Differential Collection Time: 11/02/19 4:38 AM Result Value Ref Range WBC 12.78 (H) 3.80 - 11.00 K/uL RBC 3.17 (L) 4.20 - 5.70 M/uL Hemoglobin 8.3 (L) 13.2 - 17.0 g/dL Hematocrit 25.0 (L) 39.0 - 50.0 % MCV 78.7 (L) 80.0 - 100.0 fl MCH 26.0 (L) 27.0 - 34.0 pg MCHC 33.1 32.0 - 35.5 g/dL RDW-SD 39.4 37 - 53 fl Platelet Count 284 150 - 400 K/uL MPV 7.8 fl Diff Type MANUAL % Segmented Neutrophils 90 % % Lymphocytes 6 % % Monocytes 2 % Eosinophils % 2 % Neutrophils, Absolute 11.49 (H) 1.90 - 7.40 K/uL Absolute Lymphocytes 0.77 (L) 1.00 - 3.90 K/uL Absolute Monocytes 0.26 0.00 - 0.80 K/uL Eosinophils, Absolute 0.26 0.00 - 0.50 K/uL RBC Morphology RBC AND PLT MORPHOLOGY APPEAR NORMAL Hepatitis B Surface Ab, Quant Collection Time: 11/02/19 4:38 AM Result Value Ref Range HEP B SURFACE ANTIBODY 1.68 (H) <1.00 IV Hepatitis B Surface Ag Collection Time: 11/02/19 4:38 AM Result Value Ref Range Hepatitis B Surface Ag NON REACTIVE NR Hepatitis B Core Ab, Total Collection Time: 11/02/19 4:38 AM Result Value Ref Range Hepatitis B Core Ab Total NON REACTIVE NR Hepatitis C Ab Collection Time: 11/02/19 4:38 AM Result Value Ref Range HCV Ab NON REACTIVE NR Vancomycin, Trough Collection Time: 11/02/19 4:38 AM Result Value Ref Range Vancomycin, Trough 19.7 10 - 20 ug/mL HIV 1 and 2 Ab, Reflex Collection Time: 11/02/19 4:38 AM Result Value Ref Range HIV 1 and 2 Ab NON REACTIVE NR POC Glucose Collection Time: 11/02/19 7:39 AM Result Value Ref Range Glucose, POC 180 (H) 65 - 99 mg/dL Component Latest Ref Rng & Units 11/01/2019 4:05 AM CK, Total 55 - 400 U/L 188 Component Latest Ref Rng & Units 10/31/2019 5:46 PM Amp/Methamphetamine, Screen, Urine NEG POSITIVE (A) Barbiturates Screen, Urine NEG NEGATIVE Benzodiazepines Screen, Urine NEG NEGATIVE Cocaine Metabolites, Ur NEG NEGATIVE Methadone Screen, Urine NEG NEGATIVE Opiates Screen, Urine NEG NEGATIVE Phencyclidine Screen, Urine NEG NEGATIVE Tetrahydrocannabinol(THC) NEG NEGATIVE Component Latest Ref Rng & Units 10/31/2019 5:36 PM Lactate, Serum 0.4 - 2.0 mmol/L 1.5 Component Latest Ref Rng & Units 10/31/2019 5:09 PM ESR 0 - 20 mm/Hr 58 (H) Component Latest Ref Rng & Units 10/31/2019 5:09 PM CRP <0.5 mg/dL 21.4 (H) Microbiology data: 10/31 MRSA nasal PCR positive 10/31 blood cultures with no growth to date 10/31 respiratory PCR panel negative Radiology data: MRI of the cervical spine with and without contrast IMPRESSION: 1. Advanced right-sided facet degenerative changes spanning C2 through C5. At C4-C5 there is a facet joint effusion with mild associated enhancement which could represent advanced degenerative changes versus septic joint. 2. Marked edema, asymmetric enlargement, in faint enhancement involving the right posterior neck musculature which appears to be somewhat centered around the right C4-C5 facet joint. Findings are concerning for infection/myositis but could potentially represent sequela of previous injury. 3. No epidural abscess, phlegmonous changes, or evidence of discitis osteomyelitis. 4. Advanced cervical spondylosis at C3 through C5. Changes are worst at C3-C4 where there is moderate to severe narrowing of the spinal canal with mild compression of the cervical cord. No definite cord signal abnormality is seen at any level but evaluation is limited due to motion artifact on the sagittal T2 and STIR images. Signed by: Steve Maria Jace Sign Date/Time: 10/31/2019 11:01 PM PROBLEM LIST Principal Problem: Sepsis Active Problems: Essential hypertension Diabetes Neck pain ASSESSMENT & PLAN Sepsis on admission -fever curve better, BP stable. Leukocytosis is improving -Ruling out bacteremia -Patient presented with right neck pain/fever. MRI of the cervical spine with and without contrast shows myositis, possible right C4-C5 facet joint infection. MRI showed no evidenc e of discitis/osteomyelitis, epidural phlegmon or abscess. Appreciate Neurosurgery evaluati on - no surgery recommended -MRSA nasal PCR positive. Contact isolation -Patient has comorbidities of type 2 diabetes mellitus, history of osteomyelitis/gangrene s tatus post left BKA. There is an ulcer at the lateral aspect of the left BKA for which woun d care has been requested; no overt signs of infection at the site currently. -Patient has no evidence of pneumonia or UTI -Patient denies IV drug use but drug screen is positive for amphetamines/amphetamines. HI V and viral hepatitis screen negative, immune to hepatitis B -GFR 76 1. Follow-up on microbiology data from outside hospital 2. CPK, ESR, CRP in am 3. Recommend continuing IV vancomycin for now with target trough of 15-20. Current trough therapeutic. I would recommend at least 14 days of IV antistaphylococcal antibiotic. If bl ood cultures are negative, would recommend 2 to 4 weeks of p.o. antistaphylococcal antibioti c with close monitoring of symptoms, CBC, ESR and CRP. The patient is not a candidate for home IV antibiotic therapy with positive drug screen for methamphetamine/amphetamines, history of not following up as an outpatient. 4. Continue wound care 5. Recommend psychiatry assessment Case discussed with Dr. Martin and patient's nurse *Addendum: Blood cultures from [facility] grew GPCs in chains in aerobic/anaerobic bottles - torito donato up on final ID/susceptibility TTE Code Status: Full Code Rebeca Russell MD 11/02/2019 [facility], [place] [facility], [facility] - 11/02/2019 7:41 AM PSTPatient currently receiving Vanco 1gm IV q 12h. Vanco Tr at 0438 today was 19.7(15-20mcg/ml). Instructed RN to admin 0630 dose-then will Decrease dose to Vanco 750mg (10.1mg/kg Adjusted body weight) IV q 12h). Next trough 1730 2/2 (before 3rd dose) Goal Tr 15-20 mcg/ml. Indication: osteomyelitis DESTINI VARGAS [facility] Stacey Figueroa RN - 11/02/2019 4:49 AM PSTCNA reported patient having 10/10 pain in his neck. This nurse offered medication, brought to bedside. Then Isaac refused medication. Stating, "I don't wan t it right now." Stacey Ceron RN Stacey Figueroa RN - 11/02/2019 4:02 AM PSTPatient having paranoid ideations. Told the CLEANER AND PRESSER that he didn't feel safe here, wanted the door locked. Wanted to leave AMA. Stating, "There's someone in my room, they keep coming in." "They follow me to every hospit al, they say that I kill babies because I drove drunk." Lead RN, talked with patient and offered tele sitter to watch patient and to be an private patient. As well as a camera in the room for Lead nurse to see if someone was coming in. Riddhi corey nurse asked if he had pictures of the people coming in. He stated, "No but I know what the y look like." Patient then stating, "Never mind just leave it, Just drop it." Patient was orientated at the start of shift. Becomes agitated when trying to do assessment . Refused midnight vitals. Tolerated IV ABX. Will pass on all concerns and care to oncoming shift. Chart check complete. Stacey Ceron RN Anny Wilhelm RD - 11/01/2019 3:40 PM PST NUTRITION NOTE Summary Pt assessment triggered by report of non-healing wound. Pt resistant to interview/exam. Wi ll attempt again on f/u Fluid/Beverage Intake Oral Fluids Amount: ad sienna Food Intake Amount of Food: eating 75% meals Type of Food/Meals: Current active diet order is: Diet Diet consistent carb; 60 gm CARB/Meal; Effective Now Nourishments: may be indicated if not meeting increased need for healing - will revisit t his at f/u Nutrition-Focused Physical Findings Overall Appearance: CLEMENT Body Language: guarded Extremities, Muscles and Bones: no edema documented Digestive System (Mouth to Rectum): no chew/swallow deficits Nerves and Cognition: CLEMENT Skin: WOC exam pending (limited by pt) - on admit RN reported PI on left lateral residual LE Anthropometrics No new wt Current Weight: 78.6 kg (173 lb 4.5 oz) Admit Weight: 78.6 kg (173 lb 4.5 oz) Biochemical Data, Medical Test, and Procedures Recent Labs 11/01/19 0405 NA 136 K 2.8* GLU 113* BUN 20 CREA 1.32* MG 1.3* Food and Nutrition Knowledge CLEMENT Estimated Energy Needs Energy Calorie Requirements: 1950-2350kcal(25-30kcal/kg current wt 78.6kg) Estimated Protein Needs Range Gm Protein (gm): 95-115g(1.2-1.5g/kg) Estimated Fluids Needs Fluid Requirements: 1950mL(25mL/kg) Nutrition Diagnosis Increased nutrient needs (specify) related to wound healing as evidenced by pt with Stage 2 -3 PI on LE, possible need for oral nutrition supplement if oral intake inadequate Recommendations Nutrition Prescription Ordered Nutrition Order Comments: Continue current diet as Rx'd. Encourage intake of high protein meals/beverages. Will monitor oral intake trend and offer oral nutrition supplements if pt unable to meet increased needs for healing. Following with team. Nutritional Risk Required Follow Up: ( 11/05/2019) Anny Navarro RD 11/01/2019 3:40 PM Melissa Madrid M D - 11/01/2019 3:09 PM PST [facility] Service: Hospitalist Progress Note Pt: Kuldip Smith AGE/SEX: 54 y.o. male ROOM: 7105/7105-01 : 1965 PCP: Estrella Light PA-C ADMIT DATE: 10/31/2019 TODAY'S DATE: 11/01/2019 Hospital Day/Hospital Course: LOS: 1 day SUBJECTIVE: Patient seen and examine. Complaint of sever right side neck pain and tenderness to touch, no sore throat or difficulty swallowing. Scheduled Medications: adult multivitamin with minerals/iron 1 tablet Oral Daily magnesium sulfate 2 g Intravenous Once vancomycin 15 mg/kg (Adjusted) Intravenous Q12H vancomycin per pharmacy Other Pharmacy Consult Continuous Infusions dextrose 10% sodium chloride 0.9% 100 mL/hr at 11/01/19 0445 PRN Medications acetaminophen, Hypoglycemia Management AND POCT Glucose AND dextrose AND dextro se 10%, HYDROcodone-acetaminophen, HYDROmorphone, ondansetron, Potassium replacement - NON I CU AND [START ON 11/02/2019] Potassium AND potassium chloride AND potassium chlori de AND potassium chloride IVPB (other volumes & diluents) AND potassium chloride IVP B (other volumes & diluents) Allergy: Allergies Allergen Reactions Penicillins Rash and Hives OBJECTIVE: Vitals: Temp: [36.8 C (98.3 F)-38.9 C (102 F)] 36.8 C (98.3 F) Pulse: [78-107] 85 Resp: [18-19] 19 BP: (119-150)/(59-86) 129/86 I&O Detailed Table: Intake/Output Summary (Last 24 hours) at 11/01/2019 1509 Last data filed at 11/01/2019 1440 Gross per 24 hour Intake 2849 ml Output 2175 ml Net 674 ml Patient Vitals for the past 96 hrs: Weight 10/31/19 1637 78.6 kg (173 lb 4.5 oz) Physical Examination: Constitutional: Alert and oriented to person, place, and time. HEENT: tenderness on right side of neck. Cardiovascular: Normal rate, regular rhythm, normal heart sounds with S1 and S2, and intact distal pulses. Exam reveals no gallop and no friction rub. No murmur heard. Pulmonary/Chest: Effort normal and breath sounds normal. No stridor. No respiratory distres s. no wheezes. no rales. exhibits no tenderness. Abdominal: Soft. Bowel sounds are normal. exhibits no distension and no mass. There is no t enderness. There is no rebound and no guarding. Extremeties/Musculoskeletal: Normal range of motion.exhibits no tenderness. exhibits no ed yg. Normal equal peripheral pulses. Neurological: Alert and oriented to person, place, and time. No cranial nerve deficit. E xhibits normal muscle tone. No gross motor deficits. Skin: Skin is warm. No pallor. Patient has normal capillary refill, no mottling. Psychiatric: Has a normal mood and affect. Behavior is normal. Judgment normal. LABS: Recent Labs 11/01/19 0405 10/31/19 1709 WBC 16.29* 24.61* HGB 8.1* 8.3* HCT 24.2* 25.4* PLT 250 279 MCV 78.8* 78.4* Recent Labs Lab 11/01/19 0405 NA 136 K 2.8* CL 105 CO2 21* ANIONGAP 13 BUN 20 CREA 1.32* CALCIUM 8.2* ALBUMIN 3.2* ALKPHOS 94 ALT 16 AST 21 MG 1.3* Recent Labs 11/01/19 0405 GLU 113* No results for input(s): TROPONIN, BNP in the last 72 hours. No results for input(s): PROTIME, INR, PTT in the last 168 hours. Recent Labs Lab 10/31/19 1709 IRON 10* FERRITIN 76 [id number] 565 FOLATE 5.7 Recent Labs Lab 10/31/19 1736 10/31/19 1709 LACTATE 1.5 -- CRP -- 21.4* ESR -- 58* No results for input(s): AMYLASE, LIPASE in the last 168 hours. No results for input(s): TRIG, CHOL, HDL, LDL in the last 168 hours. No results for input(s): AMMONIA in the last 168 hours. Mri Cervical Spine W Wo Contrast Result Date: 10/31/2019 MRI CERVICAL SPINE WITHOUT AND WITH CONTRAST CLINICAL INFORMATION: Neck pain, bone destruct ion on xray. rule out abscess or osteo COMPARISON: CT neck 10/31/2019. PROCEDURE: Sagittal T2 , axial T2, sagittal T1, axial T1, sagittal STIR, axial T1 enhanced, and sagittal T1 enhance d sequences. Contrast: 7 ML GADAVIST IV. FINDINGS: Motion artifact on the sagittal T2 and ST IR images and axial images limits evaluation of the cervical cord. Alignment: None alignment is unchanged with mild anterolisthesis of C4-C5 and mild retrolisthesis C5-C6. Vertebrae an d vertebral marrow signal: No marrow edema. No evidence of fracture. No evidence of discit is osteomyelitis. Cervicomedullary junction and cervical cord: Limited evaluation of the cer vical cord due to motion artifact on the sagittal images. No definite cord signal alteratio n identified. Cervical disc levels: Mild to moderate disc height loss C5-C6.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 PSTPatient seen and evalu ated all imaging points to infection in the muscle and alejandra-fascial tissue without any signi ficant epidural hematoma no compression of the nerves or central spinal canal. This patient should be treated like a routine osteomyelitis or myositis with antibiotic administration s ee no role for surgical intervention. For future management to ID and medicine team also advised patient to avoid drug abuse as i t may worsen his symptoms. Role for future neurosurgical follow-up will sign off Domingo Waggoner D.O Board Certified Neurosurgeon / Chief of Neurosurgery [facility] [place] [facility] documented in this encounter Miscellaneous Notes Plan of Brandi Marrero RN - 11/27/2019 11:17 PM PST Problem: Fall Injury Risk Goal: Absence of Fall and Fall-Related Injury Outcome: Ongoing, progressing No falls or hospital acquired injury to report. lan of Justina Colvin RN - 11/27/2019 5:34 PM PSTNo acute changes to previous shift assessment. Will p ass all care and concerns to oncoming staff. Problem: Fall Injury Risk Goal: Absence of Fall and Fall-Related Injury Outcome: Ongoing, progressing Staff hourly rounding completed throughout shift. Pt remains injury free at this time. Bed alarm remains in place. Non-skid footwear provided prior to ambulation. Pt educated to call for assistance when needed. Call light within reach. Will continue to monitor Chart check complete. JUSTINA GREENBERG RN lan of Martinez Nieto RN - 11/27/2019 10:22 AM PST10:22 AM Isaac will be here until tomorrow afternoon. He can return home as soon as his last does of IVAB is done. lan of Mojgan Ortiz RN - 11/26/2019 9:45 PM PSTPatient upset this AM thinking seven mattson was his last day here. No other acute changes overnight. Patient significant other at beds cristian. Educated on sign-in policy and to leave bags with security. Chart check complete. Mojgan Cormier RN Problem: Fall Injury Risk Goal: Absence of Fall and Fall-Related Injury Outcome: Ongoing, progressing Note: Patient calls appropriately, ad has been getting around independently. No safety concerns a t this time. Problem: Skin Injury Risk Increased Goal: Skin Health and Integrity Outcome: Ongoing, progressing lan of Justina Us RN - 11/26/2019 6:38 PM PSTNo acute changes since previous shift assessment. Wi ll pass all care and concerns to oncoming staff. Problem: Fall Injury Risk Goal: Absence of Fall and Fall-Related Injury Outcome: Ongoing, progressing Staff hourly rounding completed throughout shift. Pt remains injury free at this time. Bed alarm remains in place. Non-skid footwear provided prior to ambulation. Pt educated to call for assistance when needed. Call light within reach. Will continue to monitor Chart check complete. JUSTINA GREENBERG RN lan of Martinez Nieto RN - 11/26/2019 11:57 AM PST11:57 AM Isaac will be here until afternoon. He can return home as soon as his last does o f IVAB is done. lan o f Mojgan Ortiz RN - 11/25/2019 9:27 PM PSTNo acute changes overnight. Chart check complete. Mojgan Cormier RN Problem: Fall Injury Risk Goal: Absence of Fall and Fall-Related Injury Outcome: Ongoing, progressing Note: Patient is calling appropriately. No safety concerns at this time. Problem: Skin Injury Risk Increased Goal: Skin Health and Integrity Outcome: Ongoing, progressing lan of Justina Us RN - 11/25/2019 5:29 PM PSTNo acute changes since previous shift assessment. Wi ll pass all care and concerns to oncoming staff. Problem: Fall Injury Risk Goal: Absence of Fall and Fall-Related Injury Reactivated Staff hourly rounding completed throughout shift. Pt remains injury free at this time. Bed alarm remains in place. Non-skid footwear provided prior to ambulation. Pt educated to call for assistance when needed. Call light within reach. Will continue to monitor Chart check complete. JUSTINA GREENBERG RN lan of Martinez Nieto RN - 11/25/2019 12:42 PM PST12:42 PM Isaac will be here until afternoon. He can return home a soon as his last does of IVAB is done. lan of Abisai Cummins RN - 11/25/2019 6:30 AM PSTPatient complains of stomach pain. Dr. Bravo made aware. Order received to start Jesus Manuel 500 mg X 1. Continues with IV Vancomycin. VSS. Chart check complete. lan of Abisai Cummins RN - 11/24/2019 9:30 PM PSTProblem: Infection Goal: Infection Symptom Resolution Outcome: Resolved for upgrade, new template will be applied Problem: Fall Injury Risk Goal: Absence of Fall and Fall-Related Injury Outcome: Resolved for upgrade, new template will be applied Problem: Pain Chronic (Persistent) (Comorbidity Management) Goal: Acceptable Pain Control and Functional Ability Outcome: Resolved for upgrade, new template will be applied Problem: Skin Injury Risk Increased Goal: Skin Health and Integrity Outcome: Resolved for upgrade, new template will be applied lan of Deepti Michael RN - 11/24/2019 3:24 PM PSTStaff hourly rounding, pt remains injury free this sh ift. Chart check complete. Deepti Brody RN Problem: Fall Injury Risk Goal: Absence of Fall and Fall-Related Injury Outcome: Ongoing, progressing lan of Radha Sotelo RN - 11/23/2019 9:09 PM PSTPt is doing well tonight, he has been calm and comfortable in the room. Has been using call light appropriately, vitals stable. Will contin ue to monitor. Radha Alas RN lan of Milena - Deepti Mckeon RN - 11/23/2019 4:44 PM PSTStaff hourly rounding, pt remains injury free t his shift. Chart check complete. Deepti Brody RN Problem: Fall Injury Risk Goal: Absence of Fall and Fall-Related Injury Outcome: Ongoing, progressing lan of Radha Sotelo RN - 11/22/2019 10:23 PM PSTPatient's call light is within reach, he is get ting up with supervision with his crutches to get to and from bed to bathroom or chair. Plan of care reviewed with patient. Vitals stable. Radha Alas RN lan of Milena - Justina Greenberg RN - 11/22/2019 4:22 PM PSTIV abx continued. IVF DC this shift. Pt c/o MARTINEZ, tylenol provided x1 per MAR, pt states relief. No acute changes since previous shift assessment. Wi ll pass all care and concerns to oncoming staff. Problem: Fall Injury Risk Goal: Absence of Fall and Fall-Related Injury Outcome: Ongoing, progressing Staff hourly rounding completed throughout shift. Pt remains injury free at this time. Bed alarm remains in place. Non-skid footwear provided prior to ambulation. Pt educated to call for assistance when needed. Call light within reach. Will continue to monitor Chart check complete. JUSTINA GREENBERG RN lan of Michelle Newby RN - 11/22/2019 11:[address] Rahman and team: pt continues to be m edically ready for discharge. All facilities have declined due to drug use and behaviors. Pt's last dose of antibiotics are Nov 28. lan of Arcelia Hampton RN - 11/22/2019 6:30 AM PST Problem: Infection Goal: Infection Symptom Resolution Outcome: Ongoing, progressing Pt receiving IV vancomycin. lan of Jen Garcia RN - 11/21/2019 4:46 PM PSTPt alert and oriented x 4. Vss. Continue IV vanco and fluids. Pt anticipating discharge for 11/28/19. No changes sin e last shift. Problem: Adult Inpatient Plan of Care Goal: Readiness for Transition of Care Outcome: Ongoing, progressing Problem: Adult Inpatient Plan of Care Goal: Patient-Specific Goal Outcome: Ongoing, progressing Jen Desir RN lan of Arcelia Canela RN - 11/21/2019 6:16 AM PST Problem: Infection Goal: Infection Symptom Resolution Outcome: Ongoing, progressing Pt continues to receive IV abx. No acute changes during shift. End of shift audit completed. Arcelia Krause RN lan of Jen Garcia RN - 11/20/2019 6:25 PM PSTPt alert and oriented x 4. Vss. Pt frustrated with le ngth of stay and is eager for discharge. Plan of care discussed thoroughly with pt and michelle rns addressed. Continue IV abx and maintenance fluids. No other changes since last shift. Wi ll continue to monitor. Problem: Adult Inpatient Plan of Care Goal: Optimal Comfort and Wellbeing Outcome: Ongoing, progressing Problem: Infection Goal: Infection Symptom Resolution Outcome: Ongoing, progressing End of shift chart check complete. Jen Desir RN lan of Michelle Schneider RN - 11/20/2019 10:[address] Urias: pt continues to be medica lly ready for discharge. Awaiting to complete IV antibiotics. lan of Kitty Jacobsen RN - 0 10:21 PM PST Problem: Fall Injury Risk Goal: Absence of Fall and Fall-Related Injury Outcome: Ongoing, progressing Problem: Pain Acute Goal: Optimal Pain Control Outcome: Ongoing, progressing Problem: Adult Inpatient Plan of Care Goal: Optimal Comfort and Wellbeing Outcome: Ongoing, progressing AOX4. VSS. No acute changes from previous assessment. Will continue to monitor. Call light within reach. End of shift chart check complete. Kitty Talavera RN 11/19/2019 Electronically signed by Kitty Talavera RN at 0 5:05 AM PSTPlan of Jen Garcia RN - 11/19/2019 2:18 PM PSTPt alert and kar ented x 4. Vss. Pt ready for discharge and has threatened to leave AMA multiple times. Expla ined to pt the importance of completing full abx therapy. Pt has become more relaxed through out day and is calm and cooperative. Will continue to monitor. Problem: Infection Goal: Infection Symptom Resolution Outcome: Ongoing, progressing Problem: Adult Inpatient Plan of Care Goal: Readiness for Transition of Care Outcome: Ongoing, progressing End of shift chart check complete. Jen Desir RN lan of Michelle Schneider RN - 11/19/2019 9:[address] Urias: pt continues to be medica lly ready for discharge today. lan of Kitty Jacobsen RN - 11/18/2019 11:26 PM PST Problem: Fall Injury Risk Goal: Absence of Fall and Fall-Related Injury Outcome: Ongoing, progressing Problem: Pain Acute Goal: Optimal Pain Control Outcome: Ongoing, progressing Problem: Adult Inpatient Plan of Care Goal: Optimal Comfort and Wellbeing Outcome: Ongoing, progressing Pt A/O x4. Afebrile. VSS. Denies nausea, vomiting, SOB or chest pain. No acute changes sinc e previous assessment. Will continue to monitor. End of shift chart check complete. Kitty Talavera RN 11/18/2019 Electronically signed by Kitty Talavera RN at 0 1:28 AM PSTPlan of Marleen Mayberry RN - 11/18/2019 9:50 AM PSTSpoke with i nfection prevention, recommended DC of contact precautions as blood cultures are negative an d there is no open wound. Will continue with IV antibiotics per MD order. Pt is stable and r esting comfortably at this time. Problem: Infection Goal: Infection Symptom Resolution Outcome: Ongoing, progressing Problem: Fall Injury Risk Goal: Absence of Fall and Fall-Related Injury Outcome: Ongoing, progressing Marleen Knapp RN lan of Michelle Newby RN - 11/18/2019 9:[address] Urias: pt continues to be medically ready for discharge. Pt needs IV antibiotics until Nov 28. All facilities so far have declined the pt.Electronically signed by MAXX Bella t 11/18/2019 9:28 AM PSTPlan of Kitty Jacobsen RN - 11/17/2019 10:19 PM PST Problem: Fall Injury Risk Goal: Absence of Fall and Fall-Related Injury Outcome: Ongoing, progressing Problem: Pain Acute Goal: Optimal Pain Control Outcome: Ongoing, progressing Problem: Adult Inpatient Plan of Care Goal: Optimal Comfort and Wellbeing Outcome: Ongoing, progressing Pt A/O x4. Afebrile. VSS. Denies nausea, vomiting, SOB or chest pain. Pt reports pain to ne ck. No acute changes since previous assessment. Will continue to monitor. End of shift chart check complete. Kitty Talavera RN 11/17/2019 Electronically signed by Kitty Talavera RN at 0 2:11 AM PSTPlan of Robert Mayorga RN - 11/17/2019 2:18 PM PSTPt stable; no ch anges noted to pt status; chart audit complete. Robert Ortiz, MAXX lan of Milena Erick Leon RN - 11/17/2019 12:08 AM PST Problem: Fall Injury Risk Goal: Absence of Fall and Fall-Related Injury Outcome: Ongoing, progressing Problem: Skin Injury Risk Increased Goal: Skin Health and Integrity Outcome: Ongoing, progressing Problem: Adult Inpatient Plan of Care Goal: Optimal Comfort and Wellbeing Outcome: Ongoing, progressing Problem: Adult Inpatient Plan of Care Goal: Plan of Care Review Outcome: Met lan of Milena Lucy Caldwell RN - 11/16/2019 5:34 PM PST Problem: Infection Goal: Infection Symptom Resolution Outcome: Ongoing, progressing Problem: Pain Acute Goal: Optimal Pain Control Outcome: Ongoing, progressing S/s of infection absent, pt denies pain throughout shift. Lucy Bauer RN Electronic ally signed by Lucy Bauer RN at 11/16/2019 5:34 PM PSTPlan of Maddie Rhoades RN - 11/15/2019 11:26 PM PSTNo acute changes. Maddie Lau RN Problem: Fall Injury Risk Goal: Absence of Fall and Fall-Related Injury Outcome: Ongoing, progressing Reminded patient on fall risk, verbalized understanding. Demonstrated steady gait with use of crutches. Will continue to monitor.Maddie Lau RN lan of Marian Richmond RN - 11/15/2019 4:53 PM PST Problem: Infection Goal: Infection Symptom Resolution Outcome: Ongoing, progressing Problem: Fall Injury Risk Goal: Absence of Fall and Fall-Related Injury Outcome: Ongoing, progressing Problem: Skin Injury Risk Increased Goal: Skin Health and Integrity Outcome: Ongoing, progressing Patient has remained free from injuries and falls this hospitalization. Fall precautions in place. Bed and tab alarms utilized. Hourly rounding to ensure safety complete. Patient was seen by wound care and discharge at this time. lan of Michelle Newby RN - 11/15/2019 9:[address] Urias: updated him on where we are with plan of care and difficulties finding p lacement due to behaviors and drug use. Pt to have IV antibiotics through Nov 28. All fa cilities have declined as of this time. Pt will most likely be here through his duration.El ectronically signed by Michelle Lay RN at 11/15/2019 9:44 AM PSTPlan of Milena - Karli Green RN - 11/14/2019 9:10 PM PSTPt A+Ox4, calm and pleasant this shift. Vital signs s table. Pt given tylenol x1 for pain in neck. Karli Doll RN Problem: Fall Injury Risk Goal: Absence of Fall and Fall-Related Injury Outcome: Ongoing, progressing Problem: Pain Acute Goal: Optimal Pain Control Outcome: Ongoing, progressing Problem: Skin Injury Risk Increased Goal: Skin Health and Integrity Outcome: Ongoing, progressing Problem: Adult Inpatient Plan of Care Goal: Plan of Care Review Outcome: Ongoing, progressing Problem: Adult Inpatient Plan of Care Goal: Optimal Comfort and Wellbeing Outcome: Ongoing, progressing lan of Milena - Justina Thornton RN - 11/14/2019 2:20 PM PSTNo acute changes since previous shift assessment. Next Vanco trough to be completed 11/16 at 1030. RN attempted wound care on pt. Pt refusing woun d care at this time stating "nothing wrong with my leg" Will not allow RN to place dressing at this time. Scheduled wound care to my completed Monday. Will pass all cares and concerns to oncoming staff. Problem: Fall Injury Risk Goal: Absence of Fall and Fall-Related Injury Outcome: Ongoing, progressing Staff hourly rounding completed throughout shift. Pt remains injury free at this time. Bed alarm remains in place. Non-skid footwear provided prior to ambulation. Pt educated to call for assistance when needed. Call light within reach. Will continue to monitor Chart check complete. JUSTINA GREENBERG RN lan of Milena - Michelle Lay RN - 11/14/2019 11:[address] Crouch and team: pt continues to b e medically ready for discharge- difficult finding placement due to behaviors and drug use. 1300: [facility] she is going to reach out to some facilities to see if they accept CARMEN Ruff Medicaid insurance and will get back to me.Electronically s igned by Michelle Lay RN at 11/14/2019 1:06 PM PSTPlan of Milena - Tonio Dupont RN - 11/13/2019 11:21 PM PST Problem: Pain Acute Goal: Optimal Pain Control Outcome: Ongoing, progressing Intervention: Prevent or Manage Pain Flowsheets Taken 11/11/20192009 by Kitty Talavera RN Sensory Stimulation Regulation: music/television provided for relaxation Taken 11/13/20191955 by Tonio Dupont RN Sleep/Rest Enhancement: awakenings minimized Intervention: Optimize Psychosocial Wellbeing Flowsheets (Taken 11/13/20191955) Supportive Measures: active listening utilized;verbalization of feelings encouraged All vitals signs stable. IV removed inadvertently, new one placed. All questions and concer ns addressed with patient. Shift audit complete TONIO DUPONT RN lan of Milena - Justina Thornton RN - 11/13/2019 3:48 PM PSTVanco trough to be drawn at 2000 today prior to 2100 d ose. No Pt denies N/V/D and chest pain. Pt c/o of MARTINEZ, tylenol given x1. Pt states relief. No acute changes since previous shift assessment. Will pass all cares and concerns to oncoming staff. Problem: Fall Injury Risk Goal: Absence of Fall and Fall-Related Injury Outcome: Ongoing, progressing Staff hourly rounding completed throughout shift. Pt remains injury free at this time. Bed alarm remains in place. Non-skid footwear provided prior to ambulation. Pt educated to call for assistance when needed. Call light within reach. Will continue to monitor Chart check complete. JUSTINA GREENBERG RN lan of Michelle Newby RN - 11/13/2019 8:49 AM [id number]: [facility] called and said they are unable to accept the pt. Rounded with Dr Crouch and team: pt continues to be medically ready for discharge. Needs IV antibiotics until nov 28. Pt will most likely be here until they are complete. All f acilities have declined the pt as of now.Electronically signed by Michelle Lay RN at 0 11/13/2019 12:22 PM PSTPlan of Care - Tonio Dupont RN - 11/12/2019 10:26 PM PST Problem: Infection Goal: Infection Symptom Resolution Outcome: Ongoing, progressing Intervention: Prevent or Manage Infection Flowsheets (Taken 11/12/20191944) Infection Management: aseptic technique maintained Problem: Pain Chronic (Persistent) (Comorbidity Management) Goal: Acceptable Pain Control and Functional Ability Outcome: Ongoing, progressing Intervention: Manage Persistent Pain Flowsheets (Taken 11/12/20191944) Sleep/Rest Enhancement: awakenings minimized Intervention: Optimize Psychosocial Wellbeing Flowsheets (Taken 11/12/20191944) Supportive Measures: active listening utilized;verbalization of feelings encouraged All vitals signs stable. IV infiltrated. IV removed and replaced. All questions and concern s addressed with patient. Shift audit complete TONIO DUPONT RN lan of Care - Robert Baltazar RN - 11/12/2019 3:57 PM PSTPt stable; no changes to pt's status noted. Chart audit complete. Robert Ortiz RN lan of Care - Michelle Chisholm RN - 11/12/2019 8:09 AM [id number]: [facility] called back and asked a few que stions about the pt. She is going to talk to her team and then call me back. Rounded with Dr Crouch and team: pt continues to be medically ready for discharge. Await ing for placement. rosanne of Care - Kitty Talavera RN - 11/11/2019 9:54 PM PST Problem: Fall Injury Risk Goal: Absence of Fall and Fall-Related Injury Outcome: Ongoing, progressing Problem: Adult Inpatient Plan of Care Goal: Plan of Care Review Outcome: Ongoing, progressing Goal: Optimal Comfort and Wellbeing Outcome: Ongoing, progressing Patient started on insulin sliding scale for consistently elevated blood sugars. Patient martinez d a low grade fever treated with acetaminophen with positive effect. No acute changes from p revious assessment. Call light within reach. Will continue to monitor. End of shift chart check complete. Kitty Talavera RN 11/11/2019 Electronically signed by Kitty Talavera RN at 0 3:25 AM PSTPlan of Care - Robert Ortiz RN - 11/11/2019 10:13 AM PSTPt stable; [employer] ATTORNEY a ttempted to see pt but pt refused; pt still pending D/C - waiting on placement; chart audit complete. Robert Ortiz RN lan of Care - Baylee on Lavonne David, RD - 11/11/2019 9:58 AM PST NUTRITION NOTE Summary Moderate Risk Follow Up Pt sleeping at time of RD visit, did not wake up even after his name was called multiple ti mes. Per RN, there are no concerns with PO intake at this time. Fluid/Beverage Intake Oral Fluids Amount: Ad sienna. Food Intake Type of Food/Meals: Consistent Carbohydrate Diet, 60g CHO Amount of Food: Per charting, pt has been eating 50-100% of meals - on average pt consumed 80% of meals between 11/07-11/09. Nourishments: Pt has declined offers for oral nutrition supplements at previous RD visits. Nutritionally Relevant Medications MVI with minerals and Fe Nutrition-Focused Physical Findings Body Language: Sleeping. Skin: WOC following for probable stage 2 or stage 3 PI on left limb - pt refused evaluation by WOC on 11/01. Anthropometrics Current Wt: 72 kg, down 6.6 kg from admit. Per I/Os pt is 3.9L fluid positive. Monitor wt trend. Biochemical Data, Medical Test, and Procedures Recent Labs 11/11/19 0546 NA 136 K 3.8 GLU 183* BUN 13 CREA 1.5* PHOS 4.7 B-239 over the last 24 hours - consider addition of sliding scale insulin, as indicat ed. No recent HbA1c - last checked on 12/2017, consider checking. Recommendations Continue Consistent Carbohydrate Diet, as ordered. Encourage PO intake of protein-rich food choices to promote wound healing. Oral nutrition supplements available if PO intake suboptimal and pt agreeable. Nutritional Risk Level Of Risk: low Required Follow Up: (L; 11/18) Lavonne David, MS-MPH, RDN 11/11/2019 9:58 AM lan of Michelle Newby RN - 11/11/2019 8:57 AM [id number]: called [facility] to follow up on refer ral- no answer, left voice mail. 0915: Shaun at [facility] called back and said they can not accept the pt. 0925: sent referrals to a few other [facility] Swing Bed/SNFs. Rounded with Dr Parkinson and team: pt continues to be medically ready for discharge. Elias salcedo on placement. lan of Kitty Jacobsen RN - 11/11/2019 12:48 AM PST Problem: Fall Injury Risk Goal: Absence of Fall and Fall-Related Injury Outcome: Ongoing, progressing Problem: Pain Acute Goal: Optimal Pain Control Outcome: Ongoing, progressing Problem: Adult Inpatient Plan of Care Goal: Plan of Care Review Outcome: Ongoing, progressing Goal: Optimal Comfort and Wellbeing Outcome: Ongoing, progressing VSS. PRN pain medication given X1 with reported relief. New IV started on R wrist. Old IV d c'd. No acute changes from previous assessment. Will continue to monitor. End of shift chart check complete. Kitty Talavera RN 11/11/2019 Electronically signed by Kitty Talavera RN at 0 2:47 AM PSTPlan of Deepti Michael RN - 11/10/2019 6:23 PM PSTPt blood suga r in the high 100s throughout shift and currently in the low 200s. Dr Parkinson pagetaniya, order f or insulin requested. Chart check complete. Deepti Brody RN Problem: Fall Injury Risk Goal: Absence of Fall and Fall-Related Injury Outcome: Ongoing, progressing lan of Care - Marybeth Ndiaye RN - 11/09/2019 8:31 PM PSTPatient provided with education on fall ri sk precautions and signs and symptoms of worsening infection. Medicated for headache pain e arlier in shift as patient was reporting 6/10 maritnez pain. Problem: Infection Goal: Infection Symptom Resolution Outcome: Ongoing, progressing Problem: Fall Injury Risk Goal: Absence of Fall and Fall-Related Injury Outcome: Ongoing, progressing Problem: Skin Injury Risk Increased Goal: Skin Health and Integrity Outcome: Ongoing, progressing lan of Milena - Mackenzie Raman RN - 11/09/2019 6:30 PM PST Problem: Infection Goal: Infection Symptom Resolution Outcome: Ongoing, progressing Problem: Pain Acute Goal: Optimal Pain Control Outcome: Ongoing, progressing Note: PRN pain medication given pt pt request. Ice pack provided. Will continue to monitor. Mackenzie eugene RN Problem: Adult Inpatient Plan of Care Goal: Plan of Care Review Outcome: Ongoing, progressing Note: Plan of care reviewed with patient and family. Medications reviewed. Cont w/ IV abx. All qu estions and concerns addressed. Will continue to monitor. Mackenzie Raman RN Problem: Fall Injury Risk Goal: Absence of Fall and Fall-Related Injury Outcome: Ongoing, progressing Note: Staff hourly rounding completed throughout shift. Pt remains injury free at this time. Bed alarm remains in place. Non-skid footwear provided prior to ambulation. Pt educated to call for assistance when needed. Call light within reach. Will continue to monitor Pt A/O x4. Afebrile. VSS. Denies nausea, vomiting, SOB or chest pain. No acute changes sinc e previous assessment. Will continue to monitor. Chart check complete. Mackenzie Raman RN lan of Milena - Mirlande Carbone RN - 11/09/2019 3:45 AM PST Problem: Fall Injury Risk Goal: Absence of Fall and Fall-Related Injury Outcome: Ongoing, progressing Problem: Skin Injury Risk Increased Goal: Skin Health and Integrity Outcome: Ongoing, progressing Problem: Adult Inpatient Plan of Care Goal: Plan of Care Review Outcome: Ongoing, progressing Problem: Adult Inpatient Plan of Care Goal: Rounds/Family Conference Outcome: Ongoing, progressing Plan of care reviewed, chart check doneElectronically signed by Mirlande Carbone RN at 3:49 AM PSTPlan of Milena - Mackenzie Raman RN - 11/08/2019 6:17 PM PST Problem: Infection Goal: Infection Symptom Resolution Outcome: Ongoing, progressing Note: IV abx administered as scheduled. Afebrile. VSS. Will labs WDL. Will continue to monitor. Matthew Raman RN Problem: Adult Inpatient Plan of Care Goal: Plan of Care Review Outcome: Ongoing, progressing Note: Plan of care reviewed with patient. Medications reviewed. Discussed plan for the day. Pt en couraged to be up and active. All questions and concerns addressed. Will continue to monitor . Mackenzie Raman RN Goal: Optimal Comfort and Wellbeing Outcome: Ongoing, progressing Note: Pt reports pain to head and neck. Medicated with PO [place]. Will continue to monitor. Mackenzie meeks RN Pt A/O x4. Afebrile. VSS. Denies nausea, vomiting, SOB or chest pain. Pt appeared to be res ting with eyes closed for majority of the day. No acute changes since previous assessment. W ill continue to monitor. Chart check complete. Mackenzie Raman RN lan of Care - Rebeca Russell MD - 11/08/2019 12:55 PM PSTDiscussed discharge planning with Dr. Parkinson and Case Management No change in recommendations from ID standpoint With patient's positive drug screen and history of non-compliance, I do not think discharge home and twice a day IV vancomycin infusion will be a safe discharge plan. Recommend kimberly nuing IV antibiotic Rx in a supervised setting. Dr. Estrada will be on the ID service starting 11/09 and will see patient if needed. Pharmacy will continue to follow vancomycin dosing while in-hospital lan of Milena - Michelle Lay RN - 0 11/08/2019 11:[address] Parkinson and team: pt continues to be medically ready f or discharge. 1150: called [facility] for follow up- no answer, left voice mail. lan of Mirlande Ca RN - 03/2020 10:32 PM PST Problem: Infection Goal: Infection Symptom Resolution Outcome: Ongoing, progressing Problem: Fall Injury Risk Goal: Absence of Fall and Fall-Related Injury Outcome: Ongoing, progressing Problem: Pain Acute Goal: Optimal Pain Control Outcome: Ongoing, progressing Problem: Hypertension Comorbidity Goal: Blood Pressure in Desired Range Outcome: Ongoing, progressing Problem: Pain Chronic (Persistent) (Comorbidity Management) Goal: Acceptable Pain Control and Functional Ability Outcome: Ongoing, progressing Problem: Skin Injury Risk Increased Goal: Skin Health and Integrity Outcome: Ongoing, progressing Problem: Adult Inpatient Plan of Care Goal: Plan of Care Review Outcome: Ongoing, progressing Plan of care reviewed, pt denies any questions at this time. medications taken, pt sleeping lan Michelle Del Angel RN - 11/07/2019 8:36 AM [id number]: called [facility]- spoke with Hallie, she said she will look to see if they got the fax and will call me back. She asked me to refax the referral- sent. Verified fax number. 0905: Eneida at [facility] called back and said they do not have any beds available right now. I informed her the situation with his drug use and what not. She said that she will keep his referral in case they get an open bed. 0920: called [facility]- no answer, left voice mail. 0950: [facility] called back asking for updated doctor notes- faxed most recent ID and hospita list notes. Rounded with Dr Parkinson and team: pt continues to be medically ready for discharge- looking for placement. lan of Mirlande Ca RN - 11/06/2019 8:40 PM PST Problem: Fall Injury Risk Goal: Absence of Fall and Fall-Related Injury Outcome: Ongoing, progressing Problem: Pain Acute Goal: Optimal Pain Control Outcome: Ongoing, progressing Problem: Pain Chronic (Persistent) (Comorbidity Management) Goal: Acceptable Pain Control and Functional Ability Outcome: Ongoing, progressing Problem: Skin Injury Risk Increased Goal: Skin Health and Integrity Outcome: Ongoing, progressing Problem: Adult Inpatient Plan of Care Goal: Plan of Care Review Outcome: Ongoing, progressing Plan of care reviewed with pt, oriented to room and call light system. offered wound care p t refused. Wound is clean and dry no drainage noted. Contacted Dr. Finch about K 3.4, ord ered second K replacement. 8:4 3 PM PSTPlan of Care - Michelle Lay RN - 11/06/2019 9:38 AM [id number]: called [facility] Swing bed and spoke with Mariella- she said they are full. Then called Gordy at [facility]- she said she looked at his referral and said that he has 20 days for insurance. I s aid that is fine, as he has probably had about 4 days here and if they are able to take him, we can just sit on him for another 4 days and they can take him for the 20 that are covered . She asked for updated progress notes. 0940: messaged Dr Russell to get specific end date of vanc. 0945: faxed most recent doctor and nurse progress notes. 1005: Dr Russell said end date is 11/28. Messaged [facility]. Rounded with Dr Parkinson and team: pt is medically ready for discharge- awaiting for [facility]. 1135: Gordy said they are unable to accept the pt. Messaged Yuan at [facility]. 1245: Yuan said she will take a look at the pt. lan of Care - Kitty Talavera RN - 11/06/2019 2:14 AM PST Problem: Fall Injury Risk Goal: Absence of Fall and Fall-Related Injury Outcome: Ongoing, progressing Problem: Pain Acute Goal: Optimal Pain Control Outcome: Ongoing, progressing Problem: Adult Inpatient Plan of Care Goal: Optimal Comfort and Wellbeing Outcome: Ongoing, progressing No changes from previous assessment. Pain medication given X 1. VSS. Will continue to monit or. End of shift chart check complete. Kitty Talavera RN 11/06/2019 lan of Deepti Michael RN - 11/05/2019 5:29 PM PSTStaff hourly jasiel rouse, pt remains injury free this shift. Chart check complete. Deepti Brody RN E lectronically signed by Deepti Brody RN at 11/05/2019 5:29 PM PSTPlan of Michelle Del Angel RN - 11/05/2019 8:08 AM [id number]: called [facility] to follow up on refer ral- spoke with Sherlyn in admissions- she said the fax on file is for their physical therapy department. refaxed referral to [phone]. Rounded with Dr Parkinson and team: pt medically ready for discharge- awaiting placement. PI CC will be placed once accepted to a facility. 1235: called [facility]- no answer, left voice mail. lan of Kitty Jacobsen RN - 11/04/2019 10:42 PM PST Problem: Fall Injury Risk Goal: Absence of Fall and Fall-Related Injury Outcome: Ongoing, progressing Problem: Pain Acute Goal: Optimal Pain Control Outcome: Ongoing, progressing Problem: Adult Inpatient Plan of Care Goal: Plan of Care Review Outcome: Ongoing, progressing Goal: Absence of Hospital-Acquired Illness or Injury Outcome: Ongoing, progressing Goal: Optimal Comfort and Wellbeing Outcome: Ongoing, progressing New IV inserted. AOX4. VSS. Will continue to monitor. End of shift chart check complete. Kitty Talavera RN 11/04/2019 lan of Deepti Michael RN - 11/04/2019 4:49 PM PSTStaff hourly jasiel rouse, pt remains injury free this shift. Chart check complete. Deepti Brody RN Problem: Fall Injury Risk Goal: Absence of Fall and Fall-Related Injury Outcome: Ongoing, progressing Problem: Pain Acute Goal: Optimal Pain Control Outcome: Ongoing, progressing lan of Milena - Michelle Lay RN - 11/04/2019 11:[address] Martin and team: pt nee ds IV antibiotics for another four weeks- pt was positive for drugs. 1125: sent referrals to [facility] and [facility]. 1510: [facility] declined due to not having contract with insurance. Pt is from [place]- sent referrals to a few swing beds and SNFs in [place]. lan of Milena - Robert Ortiz RN - 11/03/2019 3: 10 PM PSTPt stable; K @ 3.3 - 40 mEq administered via IVP; pt became agitated about missing wound appt w/Dr. Vines in [place], when he was told that he would continue to receive care in this hospital, he stated: "you all don't even care about me", then proceeded to cover hi mself in the blankets and began to kick the end of the bed repeatedly. He was advised not t o attempt to destroy property. Chart audit complete. Robert Ortiz RN lan of Madhuri Lindo MSW - 11/02/2019 6:10 PM PSTSpoke with MAXX Jones who confirms telepsych cart has already been placed in room, RN has graciously agreed to return cart to [facility] after use.Elect ronically signed by EUNICE Castillo at 11/02/2019 6:11 PM PSTPlan of Robert Mayorga RN - 11/02/2019 3:25 PM PSTPt stable; K 3.3 - 40 mEq IV admin, tele-psyche consult ordered; ECHO completed; chart audit complete. Robert Ortiz RN lan of [facility] Yamini Tony RN - 11/01/2019 10:55 AM PSTPatient resting in bed. Vital signs have been stable , pt has been afebrile.Patient complained of neck and back pain medicated per NOV. Mag and K replaced. No other acute changes from previous assessment. End of shift audit complete. Phillip Murillo RN Problem: Infection Goal: Infection Symptom Resolution Outcome: Ongoing, progressing Problem: Fall Injury Risk Goal: Absence of Fall and Fall-Related Injury Outcome: Ongoing, progressing lan of Michelle Newby RN - 11/01/2019 8:15 AM PSTCare Management Initial Assessment Readmission Risk: Medium Pt admitted with septic arthritis. He lives at home with family and is independent with hi s ADLs. He does have a prosthetic and crutches to help him get around. Status Prior to Admission or Illness Arrival From: admitted as an inpatient, home or self-care Lives With: spouse, parent(s) Living Arrangements: house Caregiver For: no one Functional Status: independent. Transportation Available: family or friend will provide Care Management Concerns Readmission Within Last 30 Days: no previous admission in last 30 days PCP: Estrella Light PA-C Contact Information Family Contact Information: Name: Yasmany [place] Needs Assessment Current Outpt/Agency/Support Groups: none Anticipated Changes Related to Illness: none Concerns to be Addressed: denies needs/concerns at this time Services Anticipated at Discharge: none Equipment Used at Home: crutches, axillary, prosthesis Initial Plan Anticipated Discharge Disposition: home Electronically signed: Michelle Lay RN 11/01/2019 8:15 AM lan of Lizbeth Parsons MD - 10/31/2019 10:51 PM PSTCross cover note radaiology Call MRI cervical spine With severity degenerative No epidural abscess, phlegmonous changes, or evidence of discitis osteomyelitis. So clinical WBC CRP also need to parrel evalution lan of Naila Mccormick Nurse Tech - 10/31/2019 6:41 P M PSTPt A&Ox4, VSS throughout shift. PRN Dliaudid given X1 for pain, resp panel, MRSA, blood cultures, and lactic pending, IV abx initiated. Plan for MRI of head and neck this evening, pos neuro consult, dependent on results. UDS pos for meth. Otherwise no other acute changes . End of shift audit complete. Naila Wright RN lan of Alexsandra Krause RN - 10/31/2019 6:19 PM PST Problem: Infection Goal: Infection Symptom Resolution Outcome: Ongoing, progressing Intervention: Prevent or Manage Infection Flowsheets (Taken 10/31/20191816) Infection Management: aseptic technique maintained Problem: Fall Injury Risk Goal: Absence of Fall and Fall-Related Injury Outcome: Ongoing, progressing Note: Call light within reach, nonskid socks in place, bed in low locked position. Will continue purposeful hourly rounding. Problem: Pain Acute Goal: Optimal Pain Control Outcome: Ongoing, progressing Intervention: Prevent or Manage Pain Flowsheets (Taken 10/31/20191816) Sensory Stimulation Regulation: auditory stimulation minimized; lighting decreased; care cl ustered Sleep/Rest Enhancement: regular sleep/rest pattern promoted Intervention: Optimize Psychosocial Wellbeing Flowsheets (Taken 10/31/2019 1645 by Naila Wright, Nurse Tech) Supportive Measures: active listening utilized;self-care encouraged;self-reflection promote d Problem: Hypertension Comorbidity Goal: Blood Pressure in Desired Range Outcome: Ongoing, progressing Intervention: Maintain Hypertension-Management Strategies Flowsheets (Taken 10/31/20191816) Syncope Management: position changed slowly; head lowered Problem: Pain Chronic (Persistent) (Comorbidity Management) Goal: Acceptable Pain Control and Functional Ability Outcome: Ongoing, progressing Intervention: Develop Pain Management Plan Note: Continue to assess for pain. Use PRN pain medications as needed. Intervention: Manage Persistent Pain Flowsheets (Taken 10/31/20191816) Sleep/Rest Enhancement: regular sleep/rest pattern promoted Note: Utilize positioning and supports. Intervention: Optimize Psychosocial Wellbeing Flowsheets (Taken 10/31/2019 1645 by Naila Wright, Nurse Tech) Supportive Measures: active listening utilized;self-care encouraged;self-reflection promote d lan of Care - H gregk, Naila Blandon, Nurse Tech - 10/31/2019 4:55 PM PSTPt admitted to the floor from VSS. Marzena Christy at bedside. All questions and concerns addressed. Naila Wright RN 4: 56 PM PSTdocumented in this encounter Plan of Treatment + +------+--------+ + + | Name | Type | Priori | Associated Diagnoses | Order Schedule | | | | ty | | | + +------+--------+ + + | CBC with Manual | Lab | Routin | Myositis of other | Expected: | | Differential | | e | site, unspecified | 11/05/2019, Expires: | | | | | myositis type MRSA | 11/05/2020 | | | | | colonization | | | | | | Gram-positive | | | | | | bacteremia | | + +------+--------+ + + | Basic Metabolic | Lab | Routin | Myositis of other | Expected: | | Panel | | e | site, unspecified | 11/05/2019, Expires: | | | | | myositis type MRSA | 11/05/2020 | | | | | colonization | | | | | | Gram-positive | | | | | | bacteremia | | + +------+--------+ + + | Vancomycin, Trough | Lab | Routin | Myositis of other | Expected: | | | | e | site, unspecified | 11/05/2019, Expires: | | | | | myositis type MRSA | 11/05/2020 | | | | | colonization | | | | | | Gram-positive | | | | | | bacteremia | | + +------+--------+ + + | Creatinine | Lab | Routin | Myositis of other | Expected: | | | | e | site, unspecified | 11/05/2019, Expires: | | | | | myositis type MRSA | 11/05/2020 | | | | | colonization | | | | | | Gram-positive | | | | | | bacteremia | | + +------+--------+ + + | Sedimentation Rate | Lab | Routin | Myositis of other | Expected: | | | | e | site, unspecified | 11/05/2019, Expires: | | | | | myositis type MRSA | 11/05/2020 | | | | | colonization | | | | | | Gram-positive | | | | | | bacteremia | | + +------+--------+ + + | C-Reactive Protein | Lab | Routin | Myositis of other | Expected: | | | | e | site, unspecified | 11/05/2019, Expires: | | | | | myositis type MRSA | 11/05/2020 | | | | | colonization | | | | | | Gram-positive | | | | | | bacteremia | | + +------+--------+ + + documented as of this encounter Procedures + +--------+ + + + | Procedure Name | Priori | Date/Time | Associated Diagnosis | Comments | | | ty | | | | + +--------+ + + + | LABS - EXTERNAL SCAN | | 11/29/2019 | | Results for this | | | | 12:00 AM | | procedure are in the | | | | PST | | results section. | + +--------+ + + + | POC GLUCOSE (NON | Routin | 11/28/2019 | | Results for this | | ORD) | e | 12:45 PM | | procedure are in the | | | | PST | | results section. | + +--------+ + + + | POC GLUCOSE (NON | Routin | 11/28/2019 | | Results for this | | ORD) | e | 7:45 AM | | procedure are in the | | | | PST | | results section. | + +--------+ + + + | POC GLUCOSE (NON | Routin | 11/28/2019 | | Results for this | | ORD) | e | 4:02 AM | | procedure are in the | | | | PST | | results section. | + +--------+ + + + | POC GLUCOSE (NON | Routin | 11/27/2019 | | Results for this | | ORD) | e | 8:52 PM | | procedure are in the | | | | PST | | results section. | + +--------+ + + + | POC GLUCOSE (NON | Routin | 11/27/2019 | | Results for this | | ORD) | e | 5:05 PM | | procedure are in the | | | | PST | | results section. | + +--------+ + + + | POC GLUCOSE (NON | Routin | 11/27/2019 | | Results for this | | ORD) | e | 11:56 AM | | procedure are in the | | | | PST | | results section. | + +--------+ + + + | CBC WITH | Routin | 11/27/2019 | | Results for this | | DIFFERENTIAL | e | 8:30 AM | | procedure are in the | | | | PST | | results section. | + +--------+ + + + | BASIC METABOLIC | Routin | 11/27/2019 | | Results for this | | PANEL | e | 8:30 AM | | procedure are in the | | | | PST | | results section. | + +--------+ + + + | POC GLUCOSE (NON | Routin | 11/27/2019 | | Results for this | | ORD) | e | 8:09 AM | | procedure are in the | | | | PST | | results section. | + +--------+ + + + | POC GLUCOSE (NON | Routin | 11/26/2019 | | Results for this | | ORD) | e | 9:07 PM | | procedure are in the | | | | PST | | results section. | + +--------+ + + + | POC GLUCOSE (NON | Routin | 11/26/2019 | | Results for this | | ORD) | e | 4:12 PM | | procedure are in the | | | | PST | | results section. | + +--------+ + + + | POC GLUCOSE (NON | Routin | 11/26/2019 | | Results for this | | ORD) | e | 11:42 AM | | procedure are in the | | | | PST | | results section. | + +--------+ + + + | POC GLUCOSE (NON | Routin | 11/26/2019 | | Results for this | | ORD) | e | 8:08 AM | | procedure are in the | | | | PST | | results section. | + +--------+ + + + | CBC NO DIFFERENTIAL | Routin | 11/26/2019 | | Results for this | | | e | 6:02 AM | | procedure are in the | | | | PST | | results section. | + +--------+ + + + | RENAL FUNCTION PANEL | Routin | 11/26/2019 | | Results for this | | | e | 6:02 AM | | procedure are in the | | | | PST | | results section. | + +--------+ + + + | POC GLUCOSE (NON | Routin | 11/25/2019 | | Results for this | | ORD) | e | 9:04 PM | | procedure are in the | | | | PST | | results section. | + +--------+ + + + | POC GLUCOSE (NON | Routin | 11/25/2019 | | Results for this | | ORD) | e | 4:31 PM | | procedure are in the | | | | PST | | results section. | + +--------+ + + + | POC GLUCOSE (NON | Routin | 11/25/2019 | | Results for this | | ORD) | e | 12:01 PM | | procedure are in the | | | | PST | | results section. | + +--------+ + + + | POC GLUCOSE (NON | Routin | 11/25/2019 | | Results for this | | ORD) | e | 8:17 AM | | procedure are in the | | | | PST | | results section. | + +--------+ + + + | CREATININE | Routin | 11/25/2019 | | Results for this | | | e | 5:02 AM | | procedure are in the | | | | PST | | results section. | + +--------+ + + + | POC GLUCOSE (NON | Routin | 11/25/2019 | | Results for this | | ORD) | e | 3:03 AM | | procedure are in the | | | | PST | | results section. | + +--------+ + + + | POC GLUCOSE (NON | Routin | 11/24/2019 | | Results for this | | ORD) | e | 9:10 PM | | procedure are in the | | | | PST | | results section. | + +--------+ + + + | POC GLUCOSE (NON | Routin | 11/24/2019 | | Results for this | | ORD) | e | 4:31 PM | | procedure are in the | | | | PST | | results section. | + +--------+ + + + | POC GLUCOSE (NON | Routin | 11/24/2019 | | Results for this | | ORD) | e | 11:24 AM | | procedure are in the | | | | PST | | results section. | + +--------+ + + + | POC GLUCOSE (NON | Routin | 11/24/2019 | | Results for this | | ORD) | e | 7:57 AM | | procedure are in the | | | | PST | | results section. | + +--------+ + + + | POC GLUCOSE (NON | Routin | 11/23/2019 | | Results for this | | ORD) | e | 8:35 PM | | procedure are in the | | | | PST | | results section. | + +--------+ + + + | POC GLUCOSE (NON | Routin | 11/23/2019 | | Results for this | | ORD) | e | 4:05 PM | | procedure are in the | | | | PST | | results section. | + +--------+ + + + | POC GLUCOSE (NON | Routin | 11/23/2019 | | Results for this | | ORD) | e | 12:23 PM | | procedure are in the | | | | PST | | results section. | + +--------+ + + + | POC GLUCOSE (NON | Routin | 11/23/2019 | | Results for this | | ORD) | e | 8:39 AM | | procedure are in the | | | | PST | | results section. | + +--------+ + + + | CBC NO DIFFERENTIAL | Routin | 11/23/2019 | | Results for this | | | e | 8:12 AM | | procedure are in the | | | | PST | | results section. | + +--------+ + + + | RENAL FUNCTION PANEL | Routin | 11/23/2019 | | Results for this | | | e | 8:12 AM | | procedure are in the | | | | PST | | results section. | + +--------+ + + + | POC GLUCOSE (NON | Routin | 11/22/2019 | | Results for this | | ORD) | e | 9:05 PM | | procedure are in the | | | | PST | | results section. | + +--------+ + + + | POC GLUCOSE (NON | Routin | 11/22/2019 | | Results for this | | ORD) | e | 5:05 PM | | procedure are in the | | | | PST | | results section. | + +--------+ + + + | POC GLUCOSE (NON | Routin | 11/22/2019 | | Results for this | | ORD) | e | 12:07 PM | | procedure are in the | | | | PST | | results section. | + +--------+ + + + | HECTOR FITZPATRICK | RAISSA | 11/22/2019 | | Results for this | | | | 11:19 AM | | procedure are in the | | | | PST | | results section. | + +--------+ + + + | POC GLUCOSE (NON | Routin | 11/22/2019 | | Results for this | | ORD) | e | 8:41 AM | | procedure are in the | | | | PST | | results section. | + +--------+ + + + | CBC WITH | Routin | 11/22/2019 | | Results for this | | DIFFERENTIAL | e | 8:18 AM | | procedure are in the | | | | PST | | results section. | + +--------+ + + + | RENAL FUNCTION PANEL | Routin | 11/22/2019 | | Results for this | | | e | 8:18 AM | | procedure are in the | | | | PST | | results section. | + +--------+ + + + | POC GLUCOSE (NON | Routin | 11/21/2019 | | Results for this | | ORD) | e | 8:33 PM | | procedure are in the | | | | PST | | results section. | + +--------+ + + + | POC GLUCOSE (NON | Routin | 11/21/2019 | | Results for this | | ORD) | e | 5:09 PM | | procedure are in the | | | | PST | | results section. | + +--------+ + + + | POC GLUCOSE (NON | Routin | 11/21/2019 | | Results for this | | ORD) | e | 11:47 AM | | procedure are in the | | | | PST | | results section. | + +--------+ + + + | RENAL FUNCTION PANEL | Routin | 11/21/2019 | | Results for this | | | e | 8:12 AM | | procedure are in the | | | | PST | | results section. | + +--------+ + + + | POC GLUCOSE (NON | Routin | 11/21/2019 | | Results for this | | ORD) | e | 8:04 AM | | procedure are in the | | | | PST | | results section. | + +--------+ + + + | POC GLUCOSE (NON | Routin | 11/20/2019 | | Results for this | | ORD) | e | 8:21 PM | | procedure are in the | | | | PST | | results section. | + +--------+ + + + | POC GLUCOSE (NON | Routin | 11/20/2019 | | Results for this | | ORD) | e | 5:04 PM | | procedure are in the | | | | PST | | results section. | + +--------+ + + + | POC GLUCOSE (NON | Routin | 11/20/2019 | | Results for this | | ORD) | e | 11:47 AM | | procedure are in the | | | | PST | | results section. | + +--------+ + + + | RENAL FUNCTION PANEL | Routin | 11/20/2019 | | Results for this | | | e | 8:54 AM | | procedure are in the | | | | PST | | results section. | + +--------+ + + + | POC GLUCOSE (NON | Routin | 11/19/2019 | | Results for this | | ORD) | e | 8:39 PM | | procedure are in the | | | | PST | | results section. | + +--------+ + + + | POC GLUCOSE (NON | Routin | 11/19/2019 | | Results for this | | ORD) | e | 5:09 PM | | procedure are in the | | | | PST | | results section. | + +--------+ + + + | POC GLUCOSE (NON | Routin | 11/19/2019 | | Results for this | | ORD) | e | 11:54 AM | | procedure are in the | | | | PST | | results section. | + +--------+ + + + | VANCOMYCIN, TROUGH | RAISSA | 11/19/2019 | | Results for this | | | | 10:49 AM | | procedure are in the | | | | PST | | results section. | + +--------+ + + + | RENAL FUNCTION PANEL | Routin | 11/19/2019 | | Results for this | | | e | 10:49 AM | | procedure are in the | | | | PST | | results section. | + +--------+ + + + | POC GLUCOSE (NON | Routin | 11/19/2019 | | Results for this | | ORD) | e | 8:19 AM | | procedure are in the | | | | PST | | results section. | + +--------+ + + + | POC GLUCOSE (NON | Routin | 11/18/2019 | | Results for this | | ORD) | e | 8:47 PM | | procedure are in the | | | | PST | | results section. | + +--------+ + + + | POC GLUCOSE (NON | Routin | 11/18/2019 | | Results for this | | ORD) | e | 4:14 PM | | procedure are in the | | | | PST | | results section. | + +--------+ + + + | POC GLUCOSE (NON | Routin | 11/18/2019 | | Results for this | | ORD) | e | 11:23 AM | | procedure are in the | | | | PST | | results section. | + +--------+ + + + | RENAL FUNCTION PANEL | Routin | 11/18/2019 | | Results for this | | | e | 8:02 AM | | procedure are in the | | | | PST | | results section. | + +--------+ + + + | POC GLUCOSE (NON | Routin | 11/18/2019 | | Results for this | | ORD) | e | 7:37 AM | | procedure are in the | | | | PST | | results section. | + +--------+ + + + | POC GLUCOSE (NON | Routin | 11/17/2019 | | Results for this | | ORD) | e | 9:08 PM | | procedure are in the | | | | PST | | results section. | + +--------+ + + + | RENAL FUNCTION PANEL | Routin | 11/17/2019 | | Results for this | | | e | 8:01 AM | | procedure are in the | | | | PST | | results section. | + +--------+ + + + | POC GLUCOSE (NON | Routin | 11/16/2019 | | Results for this | | ORD) | e | 8:17 PM | | procedure are in the | | | | PST | | results section. | + +--------+ + + + | POC GLUCOSE (NON | Routin | 11/16/2019 | | Results for this | | ORD) | e | 5:01 PM | | procedure are in the | | | | PST | | results section. | + +--------+ + + + | POC GLUCOSE (NON | Routin | 11/16/2019 | | Results for this | | ORD) | e | 12:05 PM | | procedure are in the | | | | PST | | results section. | + +--------+ + + + | VANCOMYCIN, TROUGH | [facility]IS[facility] | 11/16/2019 | | Results for this | | | | 10:45 AM | | procedure are in the | | | | PST | | results section. | + +--------+ + + + | POC GLUCOSE (NON | Routin | 11/16/2019 | | Results for this | | ORD) | e | 8:13 AM | | procedure are in the | | | | PST | | results section. | + +--------+ + + + | CBC WITH | Routin | 11/16/2019 | | Results for this | | DIFFERENTIAL | e | 4:50 AM | | procedure are in the | | | | PST | | results section. | + +--------+ + + + | RENAL FUNCTION PANEL | Routin | 11/16/2019 | | Results for this | | | e | 4:50 AM | | procedure are in the | | | | PST | | results section. | + +--------+ + + + | POC GLUCOSE (NON | Routin | 11/15/2019 | | Results for this | | ORD) | e | 9:21 PM | | procedure are in the | | | | PST | | results section. | + +--------+ + + + | POC GLUCOSE (NON | Routin | 11/15/2019 | | Results for this | | ORD) | e | 5:05 PM | | procedure are in the | | | | PST | | results section. | + +--------+ + + + | POC GLUCOSE (NON | Routin | 11/15/2019 | | Results for this | | ORD) | e | 12:11 PM | | procedure are in the | | | | PST | | results section. | + +--------+ + + + | POC GLUCOSE (NON | Routin | 11/15/2019 | | Results for this | | ORD) | e | 8:06 AM | | procedure are in the | | | | PST | | results section. | + +--------+ + + + | POC GLUCOSE (NON | Routin | 11/14/2019 | | Results for this | | ORD) | e | 8:01 PM | | procedure are in the | | | | PST | | results section. | + +--------+ + + + | POC GLUCOSE (NON | Routin | 11/14/2019 | | Results for this | | ORD) | e | 4:33 PM | | procedure are in the | | | | PST | | results section. | + +--------+ + + + | POC GLUCOSE (NON | Routin | 11/14/2019 | | Results for this | | ORD) | e | 12:12 PM | | procedure are in the | | | | PST | | results section. | + +--------+ + + + | RENAL FUNCTION PANEL | Routin | 11/14/2019 | | Results for this | | | e | 8:11 AM | | procedure are in the | | | | PST | | results section. | + +--------+ + + + | POC GLUCOSE (NON | Routin | 11/14/2019 | | Results for this | | ORD) | e | 7:53 AM | | procedure are in the | | | | PST | | results section. | + +--------+ + + + | POC GLUCOSE (NON | Routin | 11/13/2019 | | Results for this | | ORD) | e | 9:24 PM | | procedure are in the | | | | PST | | results section. | + +--------+ + + + | AMARI, TROUGH | RAISSA | 11/13/2019 | | Results for this | | | | 7:46 PM | | procedure are in the | | | | PST | | results section. | + +--------+ + + + | POC GLUCOSE (NON | Routin | 11/13/2019 | | Results for this | | ORD) | e | 4:28 PM | | procedure are in the | | | | PST | | results section. | + +--------+ + + + | POC GLUCOSE (NON | Routin | 11/13/2019 | | Results for this | | ORD) | e | 11:42 AM | | procedure are in the | | | | PST | | results section. | + +--------+ + + + | POC GLUCOSE (NON | Routin | 11/13/2019 | | Results for this | | ORD) | e | 8:04 AM | | procedure are in the | | | | PST | | results section. | + +--------+ + + + | RENAL FUNCTION PANEL | Routin | 11/13/2019 | | Results for this | | | e | 4:55 AM | | procedure are in the | | | | PST | | results section. | + +--------+ + + + | POC GLUCOSE (NON | Routin | 11/12/2019 | | Results for this | | ORD) | e | 8:12 PM | | procedure are in the | | | | PST | | results section. | + +--------+ + + + | CBC NO DIFFERENTIAL | Routin | 11/12/2019 | | Results for this | | | e | 7:18 PM | | procedure are in the | | | | PST | | results section. | + +--------+ + + + | HEMOGLOBIN A1C | Add-On | 11/12/2019 | | Results for this | | | | 7:18 PM | | procedure are in the | | | | PST | | results section. | + +--------+ + + + | POC GLUCOSE (NON | Routin | 11/12/2019 | | Results for this | | ORD) | e | 4:29 PM | | procedure are in the | | | | PST | | results section. | + +--------+ + + + | POC GLUCOSE (NON | Routin | 11/12/2019 | | Results for this | | ORD) | e | 11:53 AM | | procedure are in the | | | | PST | | results section. | + +--------+ + + + | POC GLUCOSE (NON | Routin | 11/12/2019 | | Results for this | | ORD) | e | 8:11 AM | | procedure are in the | | | | PST | | results section. | + +--------+ + + + | VANCOMYCIN, TROUGH | [facility]IS[facility] | 11/12/2019 | | Results for this | | | | 7:11 AM | | procedure are in the | | | | PST | | results section. | + +--------+ + + + | RENAL FUNCTION PANEL | Routin | 11/12/2019 | | Results for this | | | e | 5:16 AM | | procedure are in the | | | | PST | | results section. | + +--------+ + + + | POC GLUCOSE (NON | Routin | 11/12/2019 | | Results for this | | ORD) | e | 5:12 AM | | procedure are in the | | | | PST | | results section. | + +--------+ + + + | POC GLUCOSE (NON | Routin | 11/11/2019 | | Results for this | | ORD) | e | 8:59 PM | | procedure are in the | | | | PST | | results section. | + +--------+ + + + | POC GLUCOSE (NON | Routin | 11/11/2019 | | Results for this | | ORD) | e | 4:41 PM | | procedure are in the | | | | PST | | results section. | + +--------+ + + + | POC GLUCOSE (NON | Routin | 11/11/2019 | | Results for this | | ORD) | e | 11:35 AM | | procedure are in the | | | | PST | | results section. | + +--------+ + + + | POC GLUCOSE (NON | Routin | 11/11/2019 | | Results for this | | ORD) | e | 7:56 AM | | procedure are in the | | | | PST | | results section. | + +--------+ + + + | SEDIMENTATION RATE | Routin | 11/11/2019 | | Results for this | | | e | 5:46 AM | | procedure are in the | | | | PST | | results section. | + +--------+ + + + | C-REACTIVE PROTEIN | Routin | 11/11/2019 | | Results for this | | | e | 5:46 AM | | procedure are in the | | | | PST | | results section. | + +--------+ + + + | RENAL FUNCTION PANEL | Routin | 11/11/2019 | | Results for this | | | e | 5:46 AM | | procedure are in the | | | | PST | | results section. | + +--------+ + + + | POC GLUCOSE (NON | Routin | 11/11/2019 | | Results for this | | ORD) | e | 4:45 AM | | procedure are in the | | | | PST | | results section. | + +--------+ + + + | POC GLUCOSE (NON | Routin | 11/11/2019 | | Results for this | | ORD) | e | 12:32 AM | | procedure are in the | | | | PST | | results section. | + +--------+ + + + | POC GLUCOSE (NON | Routin | 11/10/2019 | | Results for this | | ORD) | e | 8:39 PM | | procedure are in the | | | | PST | | results section. | + +--------+ + + + | HECTOR FITZPATRICK | RAISSA | 11/10/2019 | | Results for this | | | | 5:50 PM | | procedure are in the | | | | PST | | results section. | + +--------+ + + + | POC GLUCOSE (NON | Routin | 11/10/2019 | | Results for this | | ORD) | e | 5:14 PM | | procedure are in the | | | | PST | | results section. | + +--------+ + + + | POC GLUCOSE (NON | Routin | 11/10/2019 | | Results for this | | ORD) | e | 8:10 AM | | procedure are in the | | | | PST | | results section. | + +--------+ + + + | POC GLUCOSE (NON | Routin | 11/10/2019 | | Results for this | | ORD) | e | 5:23 AM | | procedure are in the | | | | PST | | results section. | + +--------+ + + + | RENAL FUNCTION PANEL | Routin | 11/10/2019 | | Results for this | | | e | 5:15 AM | | procedure are in the | | | | PST | | results section. | + +--------+ + + + | POC GLUCOSE (NON | Routin | 11/09/2019 | | Results for this | | ORD) | e | 8:49 PM | | procedure are in the | | | | PST | | results section. | + +--------+ + + + | POC GLUCOSE (NON | Routin | 11/09/2019 | | Results for this | | ORD) | e | 4:32 PM | | procedure are in the | | | | PST | | results section. | + +--------+ + + + | POC GLUCOSE (NON | Routin | 11/09/2019 | | Results for this | | ORD) | e | 11:37 AM | | procedure are in the | | | | PST | | results section. | + +--------+ + + + | POC GLUCOSE (NON | Routin | 11/09/2019 | | Results for this | | ORD) | e | 7:39 AM | | procedure are in the | | | | PST | | results section. | + +--------+ + + + | RENAL FUNCTION PANEL | Routin | 11/09/2019 | | Results for this | | | e | 4:51 AM | | procedure are in the | | | | PST | | results section. | + +--------+ + + + | POC GLUCOSE (NON | Routin | 11/08/2019 | | Results for this | | ORD) | e | 9:15 PM | | procedure are in the | | | | PST | | results section. | + +--------+ + + + | POC GLUCOSE (NON | Routin | 11/08/2019 | | Results for this | | ORD) | e | 4:06 PM | | procedure are in the | | | | PST | | results section. | + +--------+ + + + | POC GLUCOSE (NON | Routin | 11/08/2019 | | Results for this | | ORD) | e | 11:32 AM | | procedure are in the | | | | PST | | results section. | + +--------+ + + + | POC GLUCOSE (NON | Routin | 11/08/2019 | | Results for this | | ORD) | e | 8:05 AM | | procedure are in the | | | | PST | | results section. | + +--------+ + + + | CBC WITH | Routin | 11/08/2019 | | Results for this | | DIFFERENTIAL | e | 5:23 AM | | procedure are in the | | | | PST | | results section. | + +--------+ + + + | POC GLUCOSE (NON | Routin | 11/07/2019 | | Results for this | | ORD) | e | 9:14 PM | | procedure are in the | | | | PST | | results section. | + +--------+ + + + | POC GLUCOSE (NON | Routin | 11/07/2019 | | Results for this | | ORD) | e | 4:15 PM | | procedure are in the | | | | PST | | results section. | + +--------+ + + + | POC GLUCOSE (NON | Routin | 11/07/2019 | | Results for this | | ORD) | e | 11:54 AM | | procedure are in the | | | | PST | | results section. | + +--------+ + + + | POC GLUCOSE (NON | Routin | 11/07/2019 | | Results for this | | ORD) | e | 7:47 AM | | procedure are in the | | | | PST | | results section. | + +--------+ + + + | CBC WITH | Routin | 11/07/2019 | | Results for this | | DIFFERENTIAL | e | 6:05 AM | | procedure are in the | | | | PST | | results section. | + +--------+ + + + | POTASSIUM | Routin | 11/07/2019 | | Results for this | | | e | 6:05 AM | | procedure are in the | | | | PST | | results section. | + +--------+ + + + | VANCOMYCIN, TROUGH | Timed | 11/07/2019 | | Results for this | | | | 6:05 AM | | procedure are in the | | | | PST | | results section. | + +--------+ + + + | POC GLUCOSE (NON | Routin | 11/06/2019 | | Results for this | | ORD) | e | 9:10 PM | | procedure are in the | | | | PST | | results section. | + +--------+ + + + | POC GLUCOSE (NON | Routin | 11/06/2019 | | Results for this | | ORD) | e | 2:54 PM | | procedure are in the | | | | PST | | results section. | + +--------+ + + + | POTASSIUM | STAT | 11/06/2019 | | Results for this | | | | 1:08 PM | | procedure are in the | | | | PST | | results section. | + +--------+ + + + | POC GLUCOSE (NON | Routin | 11/06/2019 | | Results for this | | ORD) | e | 11:41 AM | | procedure are in the | | | | PST | | results section. | + +--------+ + + + | POC GLUCOSE (NON | Routin | 11/06/2019 | | Results for this | | ORD) | e | 7:50 AM | | procedure are in the | | | | PST | | results section. | + +--------+ + + + | CBC WITH | Routin | 11/06/2019 | | Results for this | | DIFFERENTIAL | e | 4:58 AM | | procedure are in the | | | | PST | | results section. | + +--------+ + + + | BASIC METABOLIC | Routin | 11/06/2019 | | Results for this | | PANEL | e | 4:58 AM | | procedure are in the | | | | PST | | results section. | + +--------+ + + + | POC GLUCOSE (NON | Routin | 11/05/2019 | | Results for this | | ORD) | e | 8:59 PM | | procedure are in the | | | | PST | | results section. | + +--------+ + + + | POC GLUCOSE (NON | Routin | 11/05/2019 | | Results for this | | ORD) | e | 4:45 PM | | procedure are in the | | | | PST | | results section. | + +--------+ + + + | POC GLUCOSE (NON | Routin | 11/05/2019 | | Results for this | | ORD) | e | 11:32 AM | | procedure are in the | | | | PST | | results section. | + +--------+ + + + | POC GLUCOSE (NON | Routin | 11/05/2019 | | Results for this | | ORD) | e | 8:45 AM | | procedure are in the | | | | PST | | results section. | + +--------+ + + + | CBC WITH | Routin | 11/05/2019 | | Results for this | | DIFFERENTIAL | e | 5:32 AM | | procedure are in the | | | | PST | | results section. | + +--------+ + + + | VANCOMYCIN, TROUGH | Timed | 11/05/2019 | | Results for this | | | | 5:32 AM | | procedure are in the | | | | PST | | results section. | + +--------+ + + + | BASIC METABOLIC | Routin | 11/05/2019 | | Results for this | | PANEL | e | 5:32 AM | | procedure are in the | | | | PST | | results section. | + +--------+ + + + | POC GLUCOSE (NON | Routin | 11/04/2019 | | Results for this | | ORD) | e | 8:54 PM | | procedure are in the | | | | PST | | results section. | + +--------+ + + + | POC GLUCOSE (NON | Routin | 11/04/2019 | | Results for this | | ORD) | e | 4:26 PM | | procedure are in the | | | | PST | | results section. | + +--------+ + + + | POC GLUCOSE (NON | Routin | 11/04/2019 | | Results for this | | ORD) | e | 11:49 AM | | procedure are in the | | | | PST | | results section. | + +--------+ + + + | POC GLUCOSE (NON | Routin | 11/04/2019 | | Results for this | | ORD) | e | 7:46 AM | | procedure are in the | | | | PST | | results section. | + +--------+ + + + | SEDIMENTATION RATE | Routin | 11/04/2019 | | Results for this | | | e | 6:10 AM | | procedure are in the | | | | PST | | results section. | + +--------+ + + + | CBC WITH | Routin | 11/04/2019 | | Results for this | | DIFFERENTIAL | e | 6:10 AM | | procedure are in the | | | | PST | | results section. | + +--------+ + + + | C-REACTIVE PROTEIN | Routin | 11/04/2019 | | Results for this | | | e | 6:10 AM | | procedure are in the | | | | PST | | results section. | + +--------+ + + + | POTASSIUM | Routin | 11/04/2019 | | Results for this | | | e | 6:10 AM | | procedure are in the | | | | PST | | results section. | + +--------+ + + + | CK TOTAL | Routin | 11/04/2019 | | Results for this | | | e | 6:10 AM | | procedure are in the | | | | PST | | results section. | + +--------+ + + + | POC GLUCOSE (NON | Routin | 11/03/2019 | | Results for this | | ORD) | e | 8:36 PM | | procedure are in the | | | | PST | | results section. | + +--------+ + + + | VANCOMYCIN, TROUGH | [facility]IS[facility] | 11/03/2019 | | Results for this | | | | 5:19 PM | | procedure are in the | | | | PST | | results section. | + +--------+ + + + | POTASSIUM | Routin | 11/03/2019 | | Results for this | | | e | 3:11 PM | | procedure are in the | | | | PST | | results section. | + +--------+ + + + | POC GLUCOSE (NON | Routin | 11/03/2019 | | Results for this | | ORD) | e | 11:23 AM | | procedure are in the | | | | PST | | results section. | + +--------+ + + + | ECHO COMPLETE | Routin | 11/03/2019 | | Results for this | | | e | 8:48 AM | | procedure are in the | | | | PST | | results section. | + +--------+ + + + | POC GLUCOSE (NON | Routin | 11/03/2019 | | Results for this | | ORD) | e | 8:26 AM | | procedure are in the | | | | PST | | results section. | + +--------+ + + + | SEDIMENTATION RATE | Routin | 11/03/2019 | | Results for this | | | e | 4:19 AM | | procedure are in the | | | | PST | | results section. | + +--------+ + + + | CBC WITH | Routin | 11/03/2019 | | Results for this | | DIFFERENTIAL | e | 4:19 AM | | procedure are in the | | | | PST | | results section. | + +--------+ + + + | C-REACTIVE PROTEIN | Routin | 11/03/2019 | | Results for this | | | e | 4:19 AM | | procedure are in the | | | | PST | | results section. | + +--------+ + + + | COMPREHENSIVE | STAT | 11/03/2019 | | Results for this | | METABOLIC PANEL | | 4:19 AM | | procedure are in the | | | | PST | | results section. | + +--------+ + + + | POC GLUCOSE (NON | Routin | 11/02/2019 | | Results for this | | ORD) | e | 8:41 PM | | procedure are in the | | | | PST | | results section. | + +--------+ + + + | POC GLUCOSE (NON | Routin | 11/02/2019 | | Results for this | | ORD) | e | 5:10 PM | | procedure are in the | | | | PST | | results section. | + +--------+ + + + | POTASSIUM | Routin | 11/02/2019 | | Results for this | | | e | 4:43 PM | | procedure are in the | | | | PST | | results section. | + +--------+ + + + | POC GLUCOSE (NON | Routin | 11/02/2019 | | Results for this | | ORD) | e | 12:07 PM | | procedure are in the | | | | PST | | results section. | + +--------+ + + + | POC GLUCOSE (NON | Routin | 11/02/2019 | | Results for this | | ORD) | e | 7:39 AM | | procedure are in the | | | | PST | | results section. | + +--------+ + + + | HEPATITIS B SURFACE | Routin | 11/02/2019 | | Results for this | | AB, QUANT | e | 4:38 AM | | procedure are in the | | | | PST | | results section. | + +--------+ + + + | HEPATITIS C AB | Routin | 11/02/2019 | | Results for this | | | e | 4:38 AM | | procedure are in the | | | | PST | | results section. | + +--------+ + + + | HEPATITIS B CORE AB, | Routin | 11/02/2019 | | Results for this | | TOTAL | e | 4:38 AM | | procedure are in the | | | | PST | | results section. | + +--------+ + + + | HIV 1 AND 2 AB, | Routin | 11/02/2019 | | Results for this | | REFLEX | e | 4:38 AM | | procedure are in the | | | | PST | | results section. | + +--------+ + + + | HEPATITIS B SURFACE | Routin | 11/02/2019 | | Results for this | | AG | e | 4:38 AM | | procedure are in the | | | | PST | | results section. | + +--------+ + + + | CBC WITH | Routin | 11/02/2019 | | Results for this | | DIFFERENTIAL | e | 4:38 AM | | procedure are in the | | | | PST | | results section. | + +--------+ + + + | MAGNESIUM | Routin | 11/02/2019 | | Results for this | | | e | 4:38 AM | | procedure are in the | | | | PST | | results section. | + +--------+ + + + | VANCOMYCIN, TROUGH | RAISSA | 11/02/2019 | | Results for this | | | | 4:38 AM | | procedure are in the | | | | PST | | results section. | + +--------+ + + + | COMPREHENSIVE | STAT | 11/02/2019 | | Results for this | | METABOLIC PANEL | | 4:38 AM | | procedure are in the | | | | PST | | results section. | + +--------+ + + + | LABS - EXTERNAL SCAN | | 11/02/2019 | | Results for this | | | | 12:00 AM | | procedure are in the | | | | PST | | results section. | + +--------+ + + + | POC GLUCOSE (NON | Routin | 11/01/2019 | | Results for this | | ORD) | e | 9:24 PM | | procedure are in the | | | | PST | | results section. | + +--------+ + + + | POTASSIUM | Routin | 11/01/2019 | | Results for this | | | e | 7:59 PM | | procedure are in the | | | | PST | | results section. | + +--------+ + + + | POC GLUCOSE (NON | Routin | 11/01/2019 | | Results for this | | ORD) | e | 5:06 PM | | procedure are in the | | | | PST | | results section. | + +--------+ + + + | POC GLUCOSE (NON | Routin | 11/01/2019 | | Results for this | | ORD) | e | 11:54 AM | | procedure are in the | | | | PST | | results section. | + +--------+ + + + | POC GLUCOSE (NON | Routin | 11/01/2019 | | Results for this | | ORD) | e | 8:18 AM | | procedure are in the | | | | PST | | results section. | + +--------+ + + + | CBC WITH | Routin | 11/01/2019 | | Results for this | | DIFFERENTIAL | e | 4:05 AM | | procedure are in the | | | | PST | | results section. | + +--------+ + + + | MAGNESIUM | Routin | 11/01/2019 | | Results for this | | | e | 4:05 AM | | procedure are in the | | | | PST | | results section. | + +--------+ + + + | CK TOTAL | Add-On | 11/01/2019 | | Results for this | | | | 4:05 AM | | procedure are in the | | | | PST | | results section. | + +--------+ + + + | COMPREHENSIVE | STAT | 11/01/2019 | | Results for this | | METABOLIC PANEL | | 4:05 AM | | procedure are in the | | | | PST | | results section. | + +--------+ + + + | POC GLUCOSE (NON | Routin | 11/01/2019 | | Results for this | | ORD) | e | 4:01 AM | | procedure are in the | | | | PST | | results section. | + +--------+ + + + | MRI CERVICAL SPINE W | STAT | 10/31/2019 | | Results for this | | WO CONTRAST | | 9:54 PM | | procedure are in the | | | | PST | | results section. | + +--------+ + + + | POC GLUCOSE (NON | Routin | 10/31/2019 | | Results for this | | ORD) | e | 8:40 PM | | procedure are in the | | | | PST | | results section. | + +--------+ + + + | MRSA NAAT | Routin | 10/31/2019 | | Results for this | | | e | 5:46 PM | | procedure are in the | | | | PST | | results section. | + +--------+ + + + | HC DRUG TEST PRSMV | Routin | 10/31/2019 | | Results for this | | CHEM TOMAS GOMEZ | e | 5:46 PM | | procedure are in the | | | | PST | | results section. | + +--------+ + + + | SODIUM, URINE, | Routin | 10/31/2019 | | Results for this | | RANDOM | e | 5:46 PM | | procedure are in the | | | | PST | | results section. | + +--------+ + + + | RESPIRATORY VIRUS | Routin | 10/31/2019 | | Results for this | | ANTIGENS PROFILE | e | 5:45 PM | | procedure are in the | | | | PST | | results section. | + +--------+ + + + | CULTURE, BLOOD | STAT | 10/31/2019 | | Results for this | | | | 5:37 PM | | procedure are in the | | | | PST | | results section. | + +--------+ + + + | CULTURE, BLOOD | STAT | 10/31/2019 | | Results for this | | | | 5:36 PM | | procedure are in the | | | | PST | | results section. | + +--------+ + + + | LACTIC ACID | Routin | 10/31/2019 | | Results for this | | | e | 5:36 PM | | procedure are in the | | | | PST | | results section. | + +--------+ + + + | HC VITAMIN B-12 | Add-On | 10/31/2019 | | Results for this | | | | 5:09 PM | | procedure are in the | | | | PST | | results section. | + +--------+ + + + | SEDIMENTATION RATE | Routin | 10/31/2019 | | Results for this | | | e | 5:09 PM | | procedure are in the | | | | PST | | results section. | + +--------+ + + + | CBC NO DIFFERENTIAL | STAT | 10/31/2019 | | Results for this | | | | 5:09 PM | | procedure are in the | | | | PST | | results section. | + +--------+ + + + | C-REACTIVE PROTEIN | STAT | 10/31/2019 | | Results for this | | | | 5:09 PM | | procedure are in the | | | | PST | | results section. | + +--------+ + + + | MAGNESIUM | Routin | 10/31/2019 | | Results for this | | | e | 5:09 PM | | procedure are in the | | | | PST | | results section. | + +--------+ + + + | IRON, TOTAL | Add-On | 10/31/2019 | | Results for this | | | | 5:09 PM | | procedure are in the | | | | PST | | results section. | + +--------+ + + + | FERRITIN | Add-On | 10/31/2019 | | Results for this | | | | 5:09 PM | | procedure are in the | | | | PST | | results section. | + +--------+ + + + | VANCOMYCIN LEVEL | Routin | 10/31/2019 | | Results for this | | | e | 5:09 PM | | procedure are in the | | | | PST | | results section. | + +--------+ + + + documented in this encounter Results LABS - EXTERNAL SCAN (11/29/2019 12:00 AM PST) + + + | Narrative | Performed At | + + + | Ordered by an | | | unspecified provider. | | + + + POC Glucose (11/28/2019 12:45 PM PST) + + + + + + | Component | Value | Ref Range | Performed | Pathologist | | | | | At | Signature | + + + + + + | Glucose, | 156 (H)Comment: Testing | 65 - 99 mg/dL | [facility] | | | POC | performed at [facility];[address] | | LABORATORY | | | | [address];[place] | | | | | | [address] | | | | + + + + + + + + | Specimen | + + | | + + + + + + + | Performing | Address | City/State/Zipcode | Phone Number | | Organization | | | | + + + + + | [facility] | [address] | [place] [address] | [phone] | + + + + + POC Glucose (11/28/2019 7:45 AM PST) + + + + + + | Component | Value | Ref Range | Performed | Pathologist | | | | | At | Signature | + + + + + + | Glucose, | 91Comment: Testing | 65 - 99 mg/dL | [facility] | | | POC | performed at [facility];[address] | | LABORATORY | | | | [address];[place] | | | | | | [address] | | | | + + + + + + + + | Specimen | + + | | + + + + + + + | Performing | Address | City/State/Zipcode | Phone Number | | Organization | | | | + + + + + | [facility] | [address] | [place] [address] | [phone] | + + + + + POC Glucose (11/28/2019 4:02 AM PST) + + + + + + | Component | Value | Ref Range | Performed | Pathologist | | | | | At | Signature | + + + + + + | Glucose, | 109 (H)Comment: Testing | 65 - 99 mg/dL | [facility] | | | POC | performed at [facility];[address] | | LABORATORY | | | | [address];[place] | | | | | | [address] | | | | + + + + + + + + | Specimen | + + | | + + + + + + + | Performing | Address | City/State/Zipcode | Phone Number | | Organization | | | | + + + + + | [facility] | [address] | [place] [address] | [phone] | + + + + + POC Glucose (11/27/2019 8:52 PM PST) + + + + + + | Component | Value | Ref Range | Performed | Pathologist | | | | | At | Signature | + + + + + + | Glucose, | 146 (H)Comment: Testing | 65 - 99 mg/dL | [facility] | | | POC | performed at [facility];[address] | | LABORATORY | | | | [address];[place] | | | | | | [address] | | | | + + + + + + + + | Specimen | + + | | + + + + + + + | Performing | Address | City/State/Zipcode | Phone Number | | Organization | | | | + + + + + | [facility] | [address] | [place] [address] | [phone] | + + + + + POC Glucose (11/27/2019 5:05 PM PST) + + + + + + | Component | Value | Ref Range | Performed | Pathologist | | | | | At | Signature | + + + + + + | Glucose, | 144 (H)Comment: Testing | 65 - 99 mg/dL | [facility] | | | POC | performed at [facility];[address] | | LABORATORY | | | | [address];[place] | | | | | | [address] | | | | + + + + + + + + | Specimen | + + | | + + + + + + + | Performing | Address | City/State/Zipcode | Phone Number | | Organization | | | | + + + + + | [facility] | [address] | [place] [address] | [phone] | + + + + + POC Glucose (11/27/2019 11:56 AM PST) + + + + + + | Component | Value | Ref Range | Performed | Pathologist | | | | | At | Signature | + + + + + + | Glucose, | 221 (H)Comment: Testing | 65 - 99 mg/dL | [facility] | | | POC | performed at [facility];[address] | | LABORATORY | | | | [address];[place], [place] | | | | | | [address] | | | | + + + + + + + + | Specimen | + + | | + + + + + + + | Performing | Address | City/State/Zipcode | Phone Number | | Organization | | | | + + + + + | [facility] | [address] | [place] [address] | [phone] | + + + + + CBC with Differential (11/27/2019 8:30 AM PST) + + + + + + | Component | Value | Ref Range | Performed | Pathologist | | | | | At | Signature | + + + + + + | WBC | 5.21 | 3.80 - 11.00 | [facility] | | | | | K/uL | LABORATORY | | + + + + + + | RBC | 3.14 (L) | 4.20 - 5.70 | [facility] | | | | | M/uL | LABORATORY | | + + + + + + | Hemoglobin | 7.6 (L) | 13.2 - 17.0 | [facility] | | | | | g/dL | LABORATORY | | + + + + + + | Hematocrit | 24.7 (L) | 39.0 - 50.0 % | [facility] | | | | | | LABORATORY | | + + + + + + | MCV | 78.7 (L) | 80.0 - 100.0 fl | [facility] | | | | | | LABORATORY | | + + + + + + | MCH | 24.2 (L) | 27.0 - 34.0 pg | [facility] | | | | | | LABORATORY | | + + + + + + | MCHC | 30.8 (L) | 32.0 - 35.5 | [facility] | | | | | g/dL | LABORATORY | | + + + + + + | RDW-SD | 42.8 | 37 - 53 fl | [facility] | | | | | | LABORATORY | | + + + + + + | Platelet | 376 | 150 - 400 K/uL | [facility] | | | Count | | | LABORATORY | | + + + + + + | MPV | 9.7Comment: NO NORMAL | fl | [facility] | | | | RANGE ESTABLISHED | | LABORATORY | | + + + + + + | Diff Type | AUTOMATED | | [facility] | | | | | | LABORATORY | | + + + + + + | % nRBC | 0.0 | 0 /100WBC | [facility] | | | | | | LABORATORY | | + + + + + + | % | 60.40 | % | [facility] | | | Neutrophils | | | LABORATORY | | + + + + + + | IMMATURE | 0.60 | % | [facility] | | | GRANULOCYTE | | | LABORATORY | | + + + + + + | % | 21.70 | % | [facility] | | | Lymphocytes | | | LABORATORY | | + + + + + + | Monocyte % | 9.40 | % | [facility] | | | | | | LABORATORY | | + + + + + + | Eosinophils | 7.10 | % | [facility] | | | % | | | LABORATORY | | + + + + + + | Basophils % | 0.80 | % | [facility] | | | | | | LABORATORY | | + + + + + + | Neutrophils | 3.15 | 1.90 - 7.40 | [facility] | | | , Absolute | | K/uL | LABORATORY | | + + + + + + | IMMATURE | 0.03Comment: NOTE NEW | 0.00 - 0.07 | [facility] | | | GRANS AB | REFERENCE RANGE | K/uL | LABORATORY | | + + + + + + | Absolute | 1.13 | 1.00 - 3.90 | [facility] | | | Lymphocytes | | K/uL | LABORATORY | | + + + + + + | Absolute | 0.49 | 0.00 - 0.80 | [facility] | | | Monocytes | | K/uL | LABORATORY | | + + + + + + | Eosinophils | 0.37 | 0.00 - 0.50 | [facility] | | | , Absolute | | K/uL | LABORATORY | | + + + + + + | Basophils, | 0.04Comment: Testing | 0.00 - 0.10 | [facility] | | | Absolute | performed at [facility], [address] | K/uL | LABORATORY | | | | [address], | | | | | | [place] [address] | | | | + + + + + + + + | Specimen | + + | Blood | + + + + + + + | Performing | Address | City/State/Zipcode | Phone Number | | Organization | | | | + + + + + | [facility] | [address] | [place] [address] | [phone] | + + + + + Basic Metabolic Panel (11/27/2019 8:30 AM PST) + + + + + + | Component | Value | Ref Range | Performed | Pathologist | | | | | At | Signature | + + + + + + | Na | 140 | 135 - 145 | [facility] | | | | | mmol/L | LABORATORY | | + + + + + + | K | 4.4 | 3.5 - 4.9 | [facility] | | | | | mmol/L | LABORATORY | | + + + + + + | Cl | 113 (H) | 99 - 109 mmol/L | [facility] | | | | | | LABORATORY | | + + + + + + | CO2 | 23 | 23 - 32 mmol/L | [facility] | | | | | | LABORATORY | | + + + + + + | Anion Gap | 8 | 5 - 20 mmol/L | [facility] | | | | | | LABORATORY | | + + + + + + | Glucose | 111 (H) | 65 - 99 mg/dL | [facility] | | | | | | LABORATORY | | + + + + + + | BUN | 19 | 8 - 25 mg/dL | [facility] | | | | | | LABORATORY | | + + + + + + | Creatinine | 1.6 (H) | 0.70 - 1.30 | [facility] | | | | | mg/dL | LABORATORY | | + + + + + + | BUN/Creatin | 12 | | [facility] | | | ine Ratio | | | LABORATORY | | + + + + + + | Calcium | 8.6 | 8.5 - 10.5 | [facility] | | | | | mg/dL | LABORATORY | | + + + + + + | Estimated | 46 (L)Comment: GFR <60: | >60 | [facility] | | | GFR | CHRONIC KIDNEY DISEASE, | mL/min/1.73m2 | LABORATORY | | | | IF FOUND OVER A 3 MONTH | | | | | | PERIOD.GFR <15: KIDNEY | | | | | | FAILURE.FOR | | | | | | AMERICANS, MULTIPLY THE | | | | | | CALCULATED GFR BY | | | | | | 1.210.This eGFR is | | | | | | calculated using the | | | | | | MDRD IDIA traceable | | | | | | equation.Testing | | | | | | performed at [facility], [address] | | | | | | [facility], | | | | | | [place] [address] | | | | + + + + + + + + | Specimen | + + | Blood | + + + + + + + | Performing | Address | City/State/Zipcode | Phone Number | | Organization | | | | + + + + + | [facility] | [address] | [place] [address] | [phone] | + + + + + POC Glucose (11/27/2019 8:09 AM PST) + + + + + + | Component | Value | Ref Range | Performed | Pathologist | | | | | At | Signature | + + + + + + | Glucose, | 120 (H)Comment: Testing | 65 - 99 mg/dL | [facility] | | | POC | performed at [facility];[address] | | LABORATORY | | | | [address];[place], [place] | | | | | | [address] | | | | + + + + + + + + | Specimen | + + | | + + + + + + + | Performing | Address | City/State/Zipcode | Phone Number | | Organization | | | | + + + + + | [facility] | [address] | [place] [address] | [phone] | + + + + + POC Glucose (11/26/2019 9:07 PM PST) + + + + + + | Component | Value | Ref Range | Performed | Pathologist | | | | | At | Signature | + + + + + + | Glucose, | 137 (H)Comment: Testing | 65 - 99 mg/dL | [facility] | | | POC | performed at [facility];[address] | | LABORATORY | | | | [address];[place], [place] | | | | | | [address] | | | | + + + + + + + + | Specimen | + + | | + + + + + + + | Performing | Address | City/State/Zipcode | Phone Number | | Organization | | | | + + + + + | [facility] | [address] | [place] [address] | [phone] | + + + + + POC Glucose (11/26/2019 4:12 PM PST) + + + + + + | Component | Value | Ref Range | Performed | Pathologist | | | | | At | Signature | + + + + + + | Glucose, | 148 (H)Comment: Testing | 65 - 99 mg/dL | [facility] | | | POC | performed at [facility];[address] | | LABORATORY | | | | [address];[place] | | | | | | [address] | | | | + + + + + + + + | Specimen | + + | | + + + + + + + | Performing | Address | City/State/Zipcode | Phone Number | | Organization | | | | + + + + + | [facility] | [address] | [place] [address] | [phone] | + + + + + POC Glucose (11/26/2019 11:42 AM PST) + + + + + + | Component | Value | Ref Range | Performed | Pathologist | | | | | At | Signature | + + + + + + | Glucose, | 145 (H)Comment: Testing | 65 - 99 mg/dL | [facility] | | | POC | performed at [facility];[address] | | LABORATORY | | | | [address];[place], [place] | | | | | | [address] | | | | + + + + + + + + | Specimen | + + | | + + + + + + + | Performing | Address | City/State/Zipcode | Phone Number | | Organization | | | | + + + + + | [facility] | [address] | [place] [address] | [phone] | + + + + + POC Glucose (11/26/2019 8:08 AM PST) + + + + + + | Component | Value | Ref Range | Performed | Pathologist | | | | | At | Signature | + + + + + + | Glucose, | 185 (H)Comment: Testing | 65 - 99 mg/dL | [facility] | | | POC | performed at [facility];[address] | | LABORATORY | | | | [address];[place], [place] | | | | | | [address] | | | | + + + + + + + + | Specimen | + + | | + + + + + + + | Performing | Address | City/State/Zipcode | Phone Number | | Organization | | | | + + + + + | [facility] | [address] | [place] [address] | [phone] | + + + + + Renal Function Panel (11/26/2019 6:02 AM PST) + + + + + + | Component | Value | Ref Range | Performed | Pathologist | | | | | At | Signature | + + + + + + | Na | 140 | 135 - 145 | [facility] | | | | | mmol/L | LABORATORY | | + + + + + + | K | 4.0 | 3.5 - 4.9 | [facility] | | | | | mmol/L | LABORATORY | | + + + + + + | Cl | 114 (H) | 99 - 109 mmol/L | [facility] | | | | | | LABORATORY | | + + + + + + | CO2 | 20 (L) | 23 - 32 mmol/L | [facility] | | | | | | LABORATORY | | + + + + + + | Anion Gap | 10 | 5 - 20 mmol/L | [facility] | | | | | | LABORATORY | | + + + + + + | Glucose | 138 (H) | 65 - 99 mg/dL | [facility] | | | | | | LABORATORY | | + + + + + + | BUN | 22 | 8 - 25 mg/dL | [facility] | | | | | | LABORATORY | | + + + + + + | Creatinine | 1.7 (H) | 0.70 - 1.30 | [facility] | | | | | mg/dL | LABORATORY | | + + + + + + | Calcium | 8.5 | 8.5 - 10.5 | [facility] | | | | | mg/dL | LABORATORY | | + + + + + + | Albumin | 2.6 (L) | 3.6 - 5.0 g/dL | [facility] | | | | | | LABORATORY | | + + + + + + | Phosphorus | 4.4 | 2.3 - 4.8 mg/dL | [facility] | | | | | | LABORATORY | | + + + + + + | Estimated | 43 (L)Comment: GFR <60: | >60 | [facility] | | | GFR | CHRONIC KIDNEY DISEASE, | mL/min/1.73m2 | LABORATORY | | | | IF FOUND OVER A 3 MONTH | | | | | | PERIOD.GFR <15: KIDNEY | | | | | | FAILURE.FOR | | | | | | AMERICANS, MULTIPLY THE | | | | | | CALCULATED GFR BY | | | | | | 1.210.This eGFR is | | | | | | calculated using the | | | | | | MDRD IDMS traceable | | | | | | equation.Testing | | | | | | performed at [facility], [address] | | | | | [address], | | | | | | [place] [address] | | | | + + + + + + + + | Specimen | + + | | + + + + + + + | Performing | Address | City/State/Zipcode | Phone Number | | Organization | | | | + + + + + | [facility] | [address] [facility] | [place] [address] | [phone] | + + + + + CBC no Differential (11/26/2019 6:02 AM PST) + + + + + + | Component | Value | Ref Range | Performed | Pathologist | | | | | At | Signature | + + + + + + | WBC | 5.74 | 3.80 - 11.00 | [facility] | | | | | K/uL | LABORATORY | | + + + + + + | RBC | 3.13 (L) | 4.20 - 5.70 | [facility] | | | | | M/uL | LABORATORY | | + + + + + + | Hemoglobin | 7.6 (L) | 13.2 - 17.0 | [facility] | | | | | g/dL | LABORATORY | | + + + + + + | Hematocrit | 24.6 (L) | 39.0 - 50.0 % | [facility] | | | | | | LABORATORY | | + + + + + + | MCV | 78.6 (L) | 80.0 - 100.0 fl | [facility] | | | | | | LABORATORY | | + + + + + + | MCH | 24.3 (L) | 27.0 - 34.0 pg | [facility] | | | | | | LABORATORY | | + + + + + + | MCHC | 30.9 (L) | 32.0 - 35.5 | [facility] | | | | | g/dL | LABORATORY | | + + + + + + | RDW-SD | 41.6 | 37 - 53 fl | [facility] | | | | | | LABORATORY | | + + + + + + | Platelet | 369 | 150 - 400 K/uL | [facility] | | | Count | | | LABORATORY | | + + + + + + | MPV | 9.4Comment: NO NORMAL | fl | [facility] | | | | RANGE ESTABLISHED | | LABORATORY | | + + + + + + | Diff Type | AUTOMATEDComment: | | [facility] | | | | Testing performed at | | LABORATORY | | | | [facility], [address] | | | | | | [place] | | | | | | [address] | | | | + + + + + + + + | Specimen | + + | Blood | + + + + + + + | Performing | Address | City/State/Zipcode | Phone Number | | Organization | | | | + + + + + | [facility] | [address] | [place] [address] | [phone] | + + + + + POC Glucose (11/25/2019 9:04 PM PST) + + + + + + | Component | Value | Ref Range | Performed | Pathologist | | | | | At | Signature | + + + + + + | Glucose, | 162 (H)Comment: Testing | 65 - 99 mg/dL | [facility] | | | POC | performed at [facility];[address] | | LABORATORY | | | | [address];[place], [place] | | | | | | [address] | | | | + + + + + + + + | Specimen | + + | | + + + + + + + | Performing | Address | City/State/Zipcode | Phone Number | | Organization | | | | + + + + + | [facility] | [address] | [place] [address] | [phone] | + + + + + POC Glucose (11/25/2019 4:31 PM PST) + + + + + + | Component | Value | Ref Range | Performed | Pathologist | | | | | At | Signature | + + + + + + | Glucose, | 186 (H)Comment: Testing | 65 - 99 mg/dL | [facility] | | | POC | performed at [facility];[address] | | LABORATORY | | | | [address];[place], [place] | | | | | | [address] | | | | + + + + + + + + | Specimen | + + | | + + + + + + + | Performing | Address | City/State/Zipcode | Phone Number | | Organization | | | | + + + + + | [facility] | [address] | [place] [address] | [phone] | + + + + + POC Glucose (11/25/2019 12:01 PM PST) + + + + + + | Component | Value | Ref Range | Performed | Pathologist | | | | | At | Signature | + + + + + + | Glucose, | 191 (H)Comment: Testing | 65 - 99 mg/dL | [facility] | | | POC | performed at [facility];[address] | | LABORATORY | | | | [address];[place] | | | | | | [address] | | | | + + + + + + + + | Specimen | + + | | + + + + + + + | Performing | Address | City/State/Zipcode | Phone Number | | Organization | | | | + + + + + | [facility] | [address] | [place] [address] | [phone] | + + + + + POC Glucose (11/25/2019 8:17 AM PST) + + + + + + | Component | Value | Ref Range | Performed | Pathologist | | | | | At | Signature | + + + + + + | Glucose, | 121 (H)Comment: Testing | 65 - 99 mg/dL | [facility] | | | POC | performed at [facility];[address] | | LABORATORY | | | | [address];[place], [place] | | | | | | [address] | | | | + + + + + + + + | Specimen | + + | | + + + + + + + | Performing | Address | City/State/Zipcode | Phone Number | | Organization | | | | + + + + + | [facility] | [address] | [place] [address] | [phone] | + + + + + Creatinine (11/25/2019 5:02 AM PST) + + + + + + | Component | Value | Ref Range | Performed | Pathologist | | | | | At | Signature | + + + + + + | Creatinine | 1.62 (H) | 0.70 - 1.30 | [facility] | | | | | mg/dL | LABORATORY | | + + + + + + | Estimated | 45 (L)Comment: GFR <60: | >60 | [facility] | | | GFR | CHRONIC KIDNEY DISEASE, | mL/min/1.73m2 | LABORATORY | | | | IF FOUND OVER A 3 MONTH | | | | | | PERIOD.GFR <15: KIDNEY | | | | | | FAILURE.FOR | | | | | | AMERICANS, MULTIPLY THE | | | | | | CALCULATED GFR BY | | | | | | 1.210.This eGFR is | | | | | | calculated using the | | | | | | MDRD IDMS traceable | | | | | | equation.Testing | | | | | | performed at [facility];[address] | | | [address];[place], [place] | | | | | | [address] | | | | + + + + + + + + | Specimen | + + | Blood | + + + + + + + | Performing | Address | City/State/Zipcode | Phone Number | | Organization | | | | + + + + + | [facility] | [address] | [place] [address] | [phone] | + + + + + POC Glucose (11/25/2019 3:03 AM PST) + + + + + + | Component | Value | Ref Range | Performed | Pathologist | | | | | At | Signature | + + + + + + | Glucose, | 147 (H)Comment: Testing | 65 - 99 mg/dL | [facility] | | | POC | performed at [facility];[address] | | LABORATORY | | | | [address];[place] | | | | | | [address] | | | | + + + + + + + + | Specimen | + + | | + + + + + + + | Performing | Address | City/State/Zipcode | Phone Number | | Organization | | | | + + + + + | [facility] | [address] [facility] | [place] [address] | [phone] | + + + + + POC Glucose (11/24/2019 9:10 PM PST) + + + + + + | Component | Value | Ref Range | Performed | Pathologist | | | | | At | Signature | + + + + + + | Glucose, | 182 (H)Comment: Testing | 65 - 99 mg/dL | [facility] | | | POC | performed at [facility];[address] | | LABORATORY | | | | [address];[place] | | | | | | [phone] | | | | + + + + + + + + | Specimen | + + | | + + + + + + + | Performing | Address | City/State/Zipcode | Phone Number | | Organization | | | | + + + + + | [facility] | [address] | [place] [address] | [phone] | + + + + + POC Glucose (11/24/2019 4:31 PM PST) + + + + + + | Component | Value | Ref Range | Performed | Pathologist | | | | | At | Signature | + + + + + + | Glucose, | 207 (H)Comment: Testing | 65 - 99 mg/dL | [facility] | | | POC | performed at [facility];[address] | | LABORATORY | | | | [address];[place] | | | | | | [address] | | | | + + + + + + + + | Specimen | + + | | + + + + + + + | Performing | Address | City/State/Zipcode | Phone Number | | Organization | | | | + + + + + | [facility] | [address] | [place] [address] | [phone] | + + + + + POC Glucose (11/24/2019 11:24 AM PST) + + + + + + | Component | Value | Ref Range | Performed | Pathologist | | | | | At | Signature | + + + + + + | Glucose, | 148 (H)Comment: Testing | 65 - 99 mg/dL | [facility] | | | POC | performed at [facility] [place];[address] | | LABORATORY | | | | [address];[place], [place] | | | | | | [address] | | | | + + + + + + + + | Specimen | + + | | + + + + + + + | Performing | Address | City/State/Zipcode | Phone Number | | Organization | | | | + + + + + | [facility] | [address] | [place] [address] | [phone] | + + + + + POC Glucose (11/24/2019 7:57 AM PST) + + + + + + | Component | Value | Ref Range | Performed | Pathologist | | | | | At | Signature | + + + + + + | Glucose, | 120 (H)Comment: Testing | 65 - 99 mg/dL | [facility] | | | POC | performed at [facility];[address] | | LABORATORY | | | | [address];[place] | | | | | | [address] | | | | + + + + + + + + | Specimen | + + | | + + + + + + + | Performing | Address | City/State/Zipcode | Phone Number | | Organization | | | | + + + + + | [facility] | [address] | [place] [address] | [phone] | + + + + + POC Glucose (11/23/2019 8:35 PM PST) + + + + + + | Component | Value | Ref Range | Performed | Pathologist | | | | | At | Signature | + + + + + + | Glucose, | 159 (H)Comment: Testing | 65 - 99 mg/dL | [facility] | | | POC | performed at [facility];[address] | | LABORATORY | | | | [address];[place], [place] | | | | | | [address] | | | | + + + + + + + + | Specimen | + + | | + + + + + + + | Performing | Address | City/State/Zipcode | Phone Number | | Organization | | | | + + + + + | [facility] | [address] | [place] [address] | [phone] | + + + + + POC Glucose (11/23/2019 4:05 PM PST) + + + + + + | Component | Value | Ref Range | Performed | Pathologist | | | | | At | Signature | + + + + + + | Glucose, | 124 (H)Comment: Testing | 65 - 99 mg/dL | [facility] | | | POC | performed at [facility];[address] | | LABORATORY | | | | [address];[place], [place] | | | | | | [address] | | | | + + + + + + + + | Specimen | + + | | + + + + + + + | Performing | Address | City/State/Zipcode | Phone Number | | Organization | | | | + + + + + | [facility] | [address] | [place] [address] | [phone] | + + + + + POC Glucose (11/23/2019 12:23 PM PST) + + + + + + | Component | Value | Ref Range | Performed | Pathologist | | | | | At | Signature | + + + + + + | Glucose, | 132 (H)Comment: Testing | 65 - 99 mg/dL | [facility] | | | POC | performed at [facility];[address] | | LABORATORY | | | | [address];[place], [place] | | | | | | [address] | | | | + + + + + + + + | Specimen | + + | | + + + + + + + | Performing | Address | City/State/Zipcode | Phone Number | | Organization | | | | + + + + + | [facility] | [address] | [place] [address] | [phone] | + + + + + POC Glucose (11/23/2019 8:39 AM PST) + + + + + + | Component | Value | Ref Range | Performed | Pathologist | | | | | At | Signature | + + + + + + | Glucose, | 115 (H)Comment: Testing | 65 - 99 mg/dL | [facility] | | | POC | performed at [facility];[address] | | LABORATORY | | | | [address];[place] | | | | | | [address] | | | | + + + + + + + + | Specimen | + + | | + + + + + + + | Performing | Address | City/State/Zipcode | Phone Number | | Organization | | | | + + + + + | [facility] | [address] | [place] [address] | [phone] | + + + + + CBC no Differential (11/23/2019 8:12 AM PST) + + + + + + | Component | Value | Ref Range | Performed | Pathologist | | | | | At | Signature | + + + + + + | WBC | 4.71 | 3.80 - 11.00 | [facility] | | | | | K/uL | LABORATORY | | + + + + + + | RBC | 3.04 (L) | 4.20 - 5.70 | [facility] | | | | | M/uL | LABORATORY | | + + + + + + | Hemoglobin | 7.3 (L) | 13.2 - 17.0 | [facility] | | | | | g/dL | LABORATORY | | + + + + + + | Hematocrit | 23.6 (L) | 39.0 - 50.0 % | [facility] | | | | | | LABORATORY | | + + + + + + | MCV | 77.6 (L) | 80.0 - 100.0 fl | [facility] | | | | | | LABORATORY | | + + + + + + | MCH | 24.0 (L) | 27.0 - 34.0 pg | [facility] | | | | | | LABORATORY | | + + + + + + | MCHC | 30.9 (L) | 32.0 - 35.5 | [facility] | | | | | g/dL | LABORATORY | | + + + + + + | RDW-SD | 39.8 | 37 - 53 fl | [facility] | | | | | | LABORATORY | | + + + + + + | Platelet | 412 (H) | 150 - 400 K/uL | [facility] | | | Count | | | LABORATORY | | + + + + + + | MPV | 9.1Comment: NO NORMAL | fl | [facility] | | | | RANGE ESTABLISHED | | LABORATORY | | + + + + + + | Diff Type | AUTOMATEDComment: | | [facility] | | | | Testing performed at | | LABORATORY | | | | [facility], [address] | | | | | | [place] | | | | | | [address] | | | | + + + + + + + + | Specimen | + + | | + + + + + + + | Performing | Address | City/State/Zipcode | Phone Number | | Organization | | | | + + + + + | [facility] | [address] | [place] [address] | [phone] | + + + + + Renal Function Panel (11/23/2019 8:12 AM PST) + + + + + + | Component | Value | Ref Range | Performed | Pathologist | | | | | At | Signature | + + + + + + | Na | 140 | 135 - 145 | [facility] | | | | | mmol/L | LABORATORY | | + + + + + + | K | 4.3 | 3.5 - 4.9 | [facility] | | | | | mmol/L | LABORATORY | | + + + + + + | Cl | 112 (H) | 99 - 109 mmol/L | [facility] | | | | | | LABORATORY | | + + + + + + | CO2 | 25 | 23 - 32 mmol/L | [facility] | | | | | | LABORATORY | | + + + + + + | Anion Gap | 7 | 5 - 20 mmol/L | [facility] | | | | | | LABORATORY | | + + + + + + | Glucose | 119 (H) | 65 - 99 mg/dL | [facility] | | | | | | LABORATORY | | + + + + + + | BUN | 21 | 8 - 25 mg/dL | [facility] | | | | | | LABORATORY | | + + + + + + | Creatinine | 1.5 (H) | 0.70 - 1.30 | [facility] | | | | | mg/dL | LABORATORY | | + + + + + + | Calcium | 8.8 | 8.5 - 10.5 | [facility] | | | | | mg/dL | LABORATORY | | + + + + + + | Albumin | 2.6 (L) | 3.6 - 5.0 g/dL | [facility] | | | | | | LABORATORY | | + + + + + + | Phosphorus | 3.3 | 2.3 - 4.8 mg/dL | [facility] | | | | | | LABORATORY | | + + + + + + | Estimated | 49 (L)Comment: GFR <60: | >60 | [facility] | | | GFR | CHRONIC KIDNEY DISEASE, | mL/min/1.73m2 | LABORATORY | | | | IF FOUND OVER A 3 MONTH | | | | | | PERIOD.GFR <15: KIDNEY | | | | | | FAILURE.FOR | | | | | | AMERICANS, MULTIPLY THE | | | | | | CALCULATED GFR BY | | | | | | 1.210.This eGFR is | | | | | | calculated using the | | | | | | MDRD IDMS traceable | | | | | | equation.Testing | | | | | | performed at [facility], [address] | | | | | | [address], | | | | | | [place] [address] | | | | + + + + + + + + | Specimen | + + | Blood | + + + + + + + | Performing | Address | City/State/Zipcode | Phone Number | | Organization | | | | + + + + + | [facility] | [address] | [place] [address] | [phone] | + + + + + POC Glucose (11/22/2019 9:05 PM PST) + + + + + + | Component | Value | Ref Range | Performed | Pathologist | | | | | At | Signature | + + + + + + | Glucose, | 170 (H)Comment: Testing | 65 - 99 mg/dL | [facility] | | | POC | performed at [facility];[address] | | LABORATORY | | | | [address];[place], [place] | | | | | | [address] | | | | + + + + + + + + | Specimen | + + | | + + + + + + + | Performing | Address | City/State/Zipcode | Phone Number | | Organization | | | | + + + + + | [facility] | [address] | [place] [address] | [phone] | + + + + + POC Glucose (11/22/2019 5:05 PM PST) + + + + + + | Component | Value | Ref Range | Performed | Pathologist | | | | | At | Signature | + + + + + + | Glucose, | 194 (H)Comment: Testing | 65 - 99 mg/dL | [facility] | | | POC | performed at [facility];[address] | | LABORATORY | | | | [address];[place] | | | | | | [address] | | | | + + + + + + + + | Specimen | + + | | + + + + + + + | Performing | Address | City/State/Zipcode | Phone Number | | Organization | | | | + + + + + | [facility] | [address] | [place] [address] | [phone] | + + + + + POC Glucose (11/22/2019 12:07 PM PST) + + + + + + | Component | Value | Ref Range | Performed | Pathologist | | | | | At | Signature | + + + + + + | Glucose, | 258 (H)Comment: Testing | 65 - 99 mg/dL | [facility] | | | POC | performed at [facility];[address] | | LABORATORY | | | | [address];[place] | | | | | | [address] | | | | + + + + + + + + | Specimen | + + | | + + + + + + + | Performing | Address | City/State/Zipcode | Phone Number | | Organization | | | | + + + + + | [facility] | [address] | [place] [address] | [phone] | + + + + + Vancomycin, Trough (11/22/2019 11:19 AM PST) + + + + + + | Component | Value | Ref Range | Performed | Pathologist | | | | | At | Signature | + + + + + + | Vancomycin, | 18.7Comment: 15 to 20 | 10 - 20 ug/mL | [facility] | | | Trough | ug/mL for meningitis, | | LABORATORY | | | | osteomyelitis, | | | | | | endocarditis, sepsis, | | | | | | orhealthcare associated | | | | | | pneumonia, or an CATHERINE | | | | | | equal to or greater than | | | | | | 1.0 ug/mLTesting | | | | | | performed at [facility] | | | | | | [address] [facility];[place], [place] | | | | | | [address] | | | | + + + + + + + + | Specimen | + + | Blood | + + + + + + + | Performing | Address | City/State/Zipcode | Phone Number | | Organization | | | | + + + + + | [facility] | [address] | [place] [address] | [phone] | + + + + + POC Glucose (11/22/2019 8:41 AM PST) + + + + + + | Component | Value | Ref Range | Performed | Pathologist | | | | | At | Signature | + + + + + + | Glucose, | 119 (H)Comment: Testing | 65 - 99 mg/dL | [facility] | | | POC | performed at [facility];[address] | | LABORATORY | | | | [address];[place], [place] | | | | | | [address] | | | | + + + + + + + + | Specimen | + + | | + + + + + + + | Performing | Address | City/State/Zipcode | Phone Number | | Organization | | | | + + + + + | [facility] | [address] | [place] [address] | [phone] | + + + + + CBC with Differential (11/22/2019 8:18 AM PST) + + + + + + | Component | Value | Ref Range | Performed | Pathologist | | | | | At | Signature | + + + + + + | WBC | 4.59 | 3.80 - 11.00 | [facility] | | | | | K/uL | LABORATORY | | + + + + + + | RBC | 3.11 (L) | 4.20 - 5.70 | [facility] | | | | | M/uL | LABORATORY | | + + + + + + | Hemoglobin | 7.3 (L) | 13.2 - 17.0 | [facility] | | | | | g/dL | LABORATORY | | + + + + + + | Hematocrit | 24.1 (L) | 39.0 - 50.0 % | [facility] | | | | | | LABORATORY | | + + + + + + | MCV | 77.5 (L) | 80.0 - 100.0 fl | [facility] | | | | | | LABORATORY | | + + + + + + | MCH | 23.5 (L) | 27.0 - 34.0 pg | [facility] | | | | | | LABORATORY | | + + + + + + | MCHC | 30.3 (L) | 32.0 - 35.5 | [facility] | | | | | g/dL | LABORATORY | | + + + + + + | RDW-SD | 39.4 | 37 - 53 fl | [facility] | | | | | | LABORATORY | | + + + + + + | Platelet | 446 (H) | 150 - 400 K/uL | [facility] | | | Count | | | LABORATORY | | + + + + + + | MPV | 9.3Comment: NO NORMAL | fl | [facility] | | | | RANGE ESTABLISHED | | LABORATORY | | + + + + + + | Diff Type | AUTOMATED | | [facility] | | | | | | LABORATORY | | + + + + + + | % nRBC | 0.0 | 0 /100WBC | [facility] | | | | | | LABORATORY | | + + + + + + | % | 63.20 | % | [facility] | | | Neutrophils | | | LABORATORY | | + + + + + + | IMMATURE | 0.40 | % | [facility] | | | GRANULOCYTE | | | LABORATORY | | + + + + + + | % | 20.90 | % | [facility] | | | Lymphocytes | | | LABORATORY | | + + + + + + | Monocyte % | 9.40 | % | [facility] | | | | | | LABORATORY | | + + + + + + | Eosinophils | 4.80 | % | [facility] | | | % | | | LABORATORY | | + + + + + + | Basophils % | 1.30 | % | [facility] | | | | | | LABORATORY | | + + + + + + | Neutrophils | 2.90 | 1.90 - 7.40 | [facility] | | | , Absolute | | K/uL | LABORATORY | | + + + + + + | IMMATURE | 0.02Comment: NOTE NEW | 0.00 - 0.07 | [facility] | | | GRANS AB | REFERENCE RANGE | K/uL | LABORATORY | | + + + + + + | Absolute | 0.96 (L) | 1.00 - 3.90 | [facility] | | | Lymphocytes | | K/uL | LABORATORY | | + + + + + + | Absolute | 0.43 | 0.00 - 0.80 | [facility] | | | Monocytes | | K/uL | LABORATORY | | + + + + + + | Eosinophils | 0.22 | 0.00 - 0.50 | [facility] | | | , Absolute | | K/uL | LABORATORY | | + + + + + + | Basophils, | 0.06Comment: Testing | 0.00 - 0.10 | [facility] | | | Absolute | performed at [facility], [address] | [address] | LABORATORY | | | | [address], | | | | | | [place] [address] | | | | + + + + + + + + | Specimen | + + | | + + + + + + + | Performing | Address | City/State/Zipcode | Phone Number | | Organization | | | | + + + + + | [facility] | [address] | [place] [address] | [phone] | + + + + + Renal Function Panel (11/22/2019 8:18 AM PST) + + + + + + | Component | Value | Ref Range | Performed | Pathologist | | | | | At | Signature | + + + + + + | Na | 138 | 135 - 145 | [facility] | | | | | mmol/L | LABORATORY | | + + + + + + | K | 4.5 | 3.5 - 4.9 | [facility] | | | | | mmol/L | LABORATORY | | + + + + + + | Cl | 111 (H) | 99 - 109 mmol/L | [facility] | | | | | | LABORATORY | | + + + + + + | CO2 | 23 | 23 - 32 mmol/L | [facility] | | | | | | LABORATORY | | + + + + + + | Anion Gap | 9 | 5 - 20 mmol/L | [facility] | | | | | | LABORATORY | | + + + + + + | Glucose | 130 (H) | 65 - 99 mg/dL | [facility] | | | | | | LABORATORY | | + + + + + + | BUN | 16 | 8 - 25 mg/dL | [facility] | | | | | | LABORATORY | | + + + + + + | Creatinine | 1.6 (H) | 0.70 - 1.30 | [facility] | | | | | mg/dL | LABORATORY | | + + + + + + | Calcium | 8.6 | 8.5 - 10.5 | [facility] | | | | | mg/dL | LABORATORY | | + + + + + + | Albumin | 2.5 (L) | 3.6 - 5.0 g/dL | [facility] | | | | | | LABORATORY | | + + + + + + | Phosphorus | 3.1 | 2.3 - 4.8 mg/dL | [facility] | | | | | | LABORATORY | | + + + + + + | Estimated | 46 (L)Comment: GFR <60: | >60 | [facility] | | | GFR | CHRONIC KIDNEY DISEASE, | mL/min/1.73m2 | LABORATORY | | | | IF FOUND OVER A 3 MONTH | | | | | | PERIOD.GFR <15: KIDNEY | | | | | | FAILURE.FOR | | | | | | AMERICANS, MULTIPLY THE | | | | | | CALCULATED GFR BY | | | | | | 1.210.This eGFR is | | | | | | calculated using the | | | | | | MDRD IDMS traceable | | | | | | equation.Testing | | | | | | performed at [facility], [address] | | | | | | [facility], | | | | | | [place] [address] | | | | + + + + + + + + | Specimen | + + | Blood | + + + + + + + | Performing | Address | City/State/Zipcode | Phone Number | | Organization | | | | + + + + + | [facility] | [address] | [place] [address] | [phone] | + + + + + POC Glucose (11/21/2019 8:33 PM PST) + + + + + + | Component | Value | Ref Range | Performed | Pathologist | | | | | At | Signature | + + + + + + | Glucose, | 196 (H)Comment: Testing | 65 - 99 mg/dL | [facility] | | | POC | performed at [facility];[address] | | LABORATORY | | | | [address];[place], [place] | | | | | | [address] | | | | + + + + + + + + | Specimen | + + | | + + + + + + + | Performing | Address | City/State/Zipcode | Phone Number | | Organization | | | | + + + + + | [facility] | [address] | [place] [address] | [phone] | + + + + + POC Glucose (11/21/2019 5:09 PM PST) + + + + + + | Component | Value | Ref Range | Performed | Pathologist | | | | | At | Signature | + + + + + + | Glucose, | 220 (H)Comment: Testing | 65 - 99 mg/dL | [facility] | | | POC | performed at [facility];[address] | | LABORATORY | | | | [address];[place], [place] | | | | | | [address] | | | | + + + + + + + + | Specimen | + + | | + + + + + + + | Performing | Address | City/State/Zipcode | Phone Number | | Organization | | | | + + + + + | [facility] | [address] | [place] [address] | [phone] | + + + + + POC Glucose (11/21/2019 11:47 AM PST) + + + + + + | Component | Value | Ref Range | Performed | Pathologist | | | | | At | Signature | + + + + + + | Glucose, | 189 (H)Comment: Testing | 65 - 99 mg/dL | [facility] | | | POC | performed at [facility];[address] | | LABORATORY | | | | [address];[place] | | | | | | [address] | | | | + + + + + + + + | Specimen | + + | | + + + + + + + | Performing | Address | City/State/Zipcode | Phone Number | | Organization | | | | + + + + + | [facility] | [address] | [place] [address] | [phone] | + + + + + Renal Function Panel (11/21/2019 8:12 AM PST) + + + + + + | Component | Value | Ref Range | Performed | Pathologist | | | | | At | Signature | + + + + + + | Na | 140 | 135 - 145 | [facility] | | | | | mmol/L | LABORATORY | | + + + + + + | K | 4.1 | 3.5 - 4.9 | [facility] | | | | | mmol/L | LABORATORY | | + + + + + + | Cl | 110 (H) | 99 - 109 mmol/L | [facility] | | | | | | LABORATORY | | + + + + + + | CO2 | 24 | 23 - 32 mmol/L | [facility] | | | | | | LABORATORY | | + + + + + + | Anion Gap | 10 | 5 - 20 mmol/L | [facility] | | | | | | LABORATORY | | + + + + + + | Glucose | 139 (H) | 65 - 99 mg/dL | [facility] | | | | | | LABORATORY | | + + + + + + | BUN | 15 | 8 - 25 mg/dL | [facility] | | | | | | LABORATORY | | + + + + + + | Creatinine | 1.59 (H) | 0.70 - 1.30 | [facility] | | | | | mg/dL | LABORATORY | | + + + + + + | Calcium | 8.5 | 8.5 - 10.5 | [facility] | | | | | mg/dL | LABORATORY | | + + + + + + | Albumin | 3.4 (L) | 3.6 - 5.0 g/dL | [facility] | | | | | | LABORATORY | | + + + + + + | Phosphorus | 3.7 | 2.3 - 4.8 mg/dL | [facility] | | | | | | LABORATORY | | + + + + + + | Estimated | 46 (L)Comment: GFR <60: | >60 | [facility] | | | GFR | CHRONIC KIDNEY DISEASE, | mL/min/1.73m2 | LABORATORY | | | | IF FOUND OVER A 3 MONTH | | | | | | PERIOD.GFR <15: KIDNEY | | | | | | FAILURE.FOR | | | | | | AMERICANS, MULTIPLY THE | | | | | | CALCULATED GFR BY | | | | | | 1.210.This eGFR is | | | | | | calculated using the | | | | | | MDRD IDMS traceable | | | | | | equation.Testing | | | | | | performed at [facility];[address] | | | | | | [address];[place] | | | | | | [address] | | | | + + + + + + + + | Specimen | + + | Blood | + + + + + + + | Performing | Address | City/State/Zipcode | Phone Number | | Organization | | | | + + + + + | [facility] | [address] | [place] [address] | [phone] | + + + + + POC Glucose (11/21/2019 8:04 AM PST) + + + + + + | Component | Value | Ref Range | Performed | Pathologist | | | | | At | Signature | + + + + + + | Glucose, | 148 (H)Comment: Testing | 65 - 99 mg/dL | [facility] | | | POC | performed at [facility];[address] | | LABORATORY | | | | [address];[place], [place] | | | | | | [address] | | | | + + + + + + + + | Specimen | + + | | + + + + + + + | Performing | Address | City/State/Zipcode | Phone Number | | Organization | | | | + + + + + | [facility] | [address] | [place] [address] | [phone] | + + + + + POC Glucose (11/20/2019 8:21 PM PST) + + + + + + | Component | Value | Ref Range | Performed | Pathologist | | | | | At | Signature | + + + + + + | Glucose, | 205 (H)Comment: Testing | 65 - 99 mg/dL | [facility] | | | POC | performed at [facility];[address] | | LABORATORY | | | | [address];[place] | | | | | | [address] | | | | + + + + + + + + | Specimen | + + | | + + + + + + + | Performing | Address | City/State/Zipcode | Phone Number | | Organization | | | | + + + + + | [facility] | [address] | [place] [address] | [phone] | + + + + + POC Glucose (11/20/2019 5:04 PM PST) + + + + + + | Component | Value | Ref Range | Performed | Pathologist | | | | | At | Signature | + + + + + + | Glucose, | 164 (H)Comment: Testing | 65 - 99 mg/dL | [facility] | | | POC | performed at [facility];[address] | | LABORATORY | | | | [address];[place] | | | | | | [address] | | | | + + + + + + + + | Specimen | + + | | + + + + + + + | Performing | Address | City/State/Zipcode | Phone Number | | Organization | | | | + + + + + | [facility] | [address] | [place] [address] | [phone] | + + + + + POC Glucose (11/20/2019 11:47 AM PST) + + + + + + | Component | Value | Ref Range | Performed | Pathologist | | | | | At | Signature | + + + + + + | Glucose, | 138 (H)Comment: Testing | 65 - 99 mg/dL | [facility] | | | POC | performed at [facility];[address] | | LABORATORY | | | | [address];[place], [place] | | | | | | [address] | | | | + + + + + + + + | Specimen | + + | | + + + + + + + | Performing | Address | City/State/Zipcode | Phone Number | | Organization | | | | + + + + + | [facility] | [address] | [place] [address] | [phone] | + + + + + Renal Function Panel (11/20/2019 8:54 AM PST) + + + + + + | Component | Value | Ref Range | Performed | Pathologist | | | | | At | Signature | + + + + + + | Na | 139 | 135 - 145 | [facility] | | | | | mmol/L | LABORATORY | | + + + + + + | K | 4.3 | 3.5 - 4.9 | [facility] | | | | | mmol/L | LABORATORY | | + + + + + + | Cl | 111 (H) | 99 - 109 mmol/L | [facility] | | | | | | LABORATORY | | + + + + + + | CO2 | 23 | 23 - 32 mmol/L | [facility] | | | | | | LABORATORY | | + + + + + + | Anion Gap | 9 | 5 - 20 mmol/L | [facility] | | | | | | LABORATORY | | + + + + + + | Glucose | 102 (H) | 65 - 99 mg/dL | [facility] | | | | | | LABORATORY | | + + + + + + | BUN | 18 | 8 - 25 mg/dL | [facility] | | | | | | LABORATORY | | + + + + + + | Creatinine | 1.6 (H) | 0.70 - 1.30 | [facility] | | | | | mg/dL | LABORATORY | | + + + + + + | Calcium | 8.5 | 8.5 - 10.5 | [facility] | | | | | mg/dL | LABORATORY | | + + + + + + | Albumin | 2.5 (L) | 3.6 - 5.0 g/dL | [facility] | | | | | | LABORATORY | | + + + + + + | Phosphorus | 3.4 | 2.3 - 4.8 mg/dL | [facility] | | | | | | LABORATORY | | + + + + + + | Estimated | 46 (L)Comment: GFR <60: | >60 | [facility] | | | GFR | CHRONIC KIDNEY DISEASE, | mL/min/1.73m2 | LABORATORY | | | | IF FOUND OVER A 3 MONTH | | | | | | PERIOD.GFR <15: KIDNEY | | | | | | FAILURE.FOR | | | | | | AMERICANS, MULTIPLY THE | | | | | | CALCULATED GFR BY | | | | | | 1.210.This eGFR is | | | | | | calculated using the | | | | | | MDRD IDIA traceable | | | | | | equation.Testing | | | | | | performed at [facility], [address] | | | | | [facility], | | | | | | [place] [address] | | | | + + + + + + + + | Specimen | + + | Blood | + + + + + + + | Performing | Address | City/State/Zipcode | Phone Number | | Organization | | | | + + + + + | [facility] | [address] | [place] [address] | [phone] | + + + + + POC Glucose (11/19/2019 8:39 PM PST) + + + + + + | Component | Value | Ref Range | Performed | Pathologist | | | | | At | Signature | + + + + + + | Glucose, | 258 (H)Comment: Testing | 65 - 99 mg/dL | [facility] | | | POC | performed at [facility];[address] | | LABORATORY | | | | [address];[place] | | | | | | [address] | | | | + + + + + + + + | Specimen | + + | | + + + + + + + | Performing | Address | City/State/Zipcode | Phone Number | | Organization | | | | + + + + + | [facility] | [address] | [place] [address] | [phone] | + + + + + POC Glucose (11/19/2019 5:09 PM PST) + + + + + + | Component | Value | Ref Range | Performed | Pathologist | | | | | At | Signature | + + + + + + | Glucose, | 160 (H)Comment: Testing | 65 - 99 mg/dL | [facility] | | | POC | performed at [facility];[address] | | LABORATORY | | | | [address];[place] | | | | | | [address] | | | | + + + + + + + + | Specimen | + + | | + + + + + + + | Performing | Address | City/State/Zipcode | Phone Number | | Organization | | | | + + + + + | [facility] | [address] | [place] [address] | [phone] | + + + + + POC Glucose (11/19/2019 11:54 AM PST) + + + + + + | Component | Value | Ref Range | Performed | Pathologist | | | | | At | Signature | + + + + + + | Glucose, | 226 (H)Comment: Testing | 65 - 99 mg/dL | [facility] | | | POC | performed at [facility];[address] | | LABORATORY | | | | [address];[place], [place] | | | | | | [address] | | | | + + + + + + + + | Specimen | + + | | + + + + + + + | Performing | Address | City/State/Zipcode | Phone Number | | Organization | | | | + + + + + | [facility] | [address] | [place] [address] | [phone] | + + + + + Renal Function Panel (11/19/2019 10:49 AM PST) + + + + + + | Component | Value | Ref Range | Performed | Pathologist | | | | | At | Signature | + + + + + + | Na | 137 | 135 - 145 | [facility] | | | | | mmol/L | LABORATORY | | + + + + + + | K | 4.5 | 3.5 - 4.9 | [facility] | | | | | mmol/L | LABORATORY | | + + + + + + | Cl | 107 | 99 - 109 mmol/L | [facility] | | | | | | LABORATORY | | + + + + + + | CO2 | 23 | 23 - 32 mmol/L | [facility] | | | | | | LABORATORY | | + + + + + + | Anion Gap | 12 | 5 - 20 mmol/L | [facility] | | | | | | LABORATORY | | + + + + + + | Glucose | 224 (H) | 65 - 99 mg/dL | [facility] | | | | | | LABORATORY | | + + + + + + | BUN | 21 | 8 - 25 mg/dL | [facility] | | | | | | LABORATORY | | + + + + + + | Creatinine | 1.63 (H) | 0.70 - 1.30 | [facility] | | | | | mg/dL | LABORATORY | | + + + + + + | Calcium | 8.8 | 8.5 - 10.5 | [facility] | | | | | mg/dL | LABORATORY | | + + + + + + | Albumin | 3.6 | 3.6 - 5.0 g/dL | [facility] | | | | | | LABORATORY | | + + + + + + | Phosphorus | 4.0 | 2.3 - 4.8 mg/dL | [facility] | | | | | | LABORATORY | | + + + + + + | Estimated | 45 (L)Comment: GFR <60: | >60 | [facility] | | | GFR | CHRONIC KIDNEY DISEASE, | mL/min/1.73m2 | LABORATORY | | | | IF FOUND OVER A 3 MONTH | | | | | | PERIOD.GFR <15: KIDNEY | | | | | | FAILURE.FOR | | | | | | AMERICANS, MULTIPLY THE | | | | | | CALCULATED GFR BY | | | | | | 1.210.This eGFR is | | | | | | calculated using the | | | | | | MDRD IDIA traceable | | | | | | equation.Testing | | | | | | performed at [facility];[address] | | | | | | [facility];[place], [place] | | | | | | [address] | | | | + + + + + + + + | Specimen | + + | Blood | + + + + + + + | Performing | Address | City/State/Zipcode | Phone Number | | Organization | | | | + + + + + | [facility] | [address] | [place] [address] | [phone] | + + + + + Vancomycin, Trough (11/19/2019 10:49 AM PST) + + + + + + | Component | Value | Ref Range | Performed | Pathologist | | | | | At | Signature | + + + + + + | Vancomycin, | 18.8Comment: 15 to 20 | 10 - 20 ug/mL | [facility] | | | Trough | ug/mL for meningitis, | | LABORATORY | | | | osteomyelitis, | | | | | | endocarditis, sepsis, | | | | | | orhealthcare associated | | | | | | pneumonia, or an CATHERINE | | | | | | equal to or greater than | | | | | | 1.0 ug/mLTesting | | | | | | performed at [facility];[address] | | | | | | [address];[place], [place] | | | | | | [address] | | | | + + + + + + + + | Specimen | + + | Blood | + + + + + + + | Performing | Address | City/State/Zipcode | Phone Number | | Organization | | | | + + + + + | [facility] | [address] | [place] [address] | [phone] | + + + + + POC Glucose (11/19/2019 8:19 AM PST) + + + + + + | Component | Value | Ref Range | Performed | Pathologist | | | | | At | Signature | + + + + + + | Glucose, | 107 (H)Comment: Testing | 65 - 99 mg/dL | [facility] | | | POC | performed at [facility];[address] | | LABORATORY | | | | [address];[place] | | | | | | [address] | | | | + + + + + + + + | Specimen | + + | | + + + + + + + | Performing | Address | City/State/Zipcode | Phone Number | | Organization | | | | + + + + + | [facility] | [address] | [place] [address] | [phone] | + + + + + POC Glucose (11/18/2019 8:47 PM PST) + + + + + + | Component | Value | Ref Range | Performed | Pathologist | | | | | At | Signature | + + + + + + | Glucose, | 147 (H)Comment: Testing | 65 - 99 mg/dL | [facility] | | | POC | performed at [facility];[address] | | LABORATORY | | | | [address];[place] | | | | | | [address] | | | | + + + + + + + + | Specimen | + + | | + + + + + + + | Performing | Address | City/State/Zipcode | Phone Number | | Organization | | | | + + + + + | [facility] | [address] | [place] [address] | [phone] | + + + + + POC Glucose (11/18/2019 4:14 PM PST) + + + + + + | Component | Value | Ref Range | Performed | Pathologist | | | | | At | Signature | + + + + + + | Glucose, | 127 (H)Comment: Testing | 65 - 99 mg/dL | [facility] | | | POC | performed at [facility];[address] | | LABORATORY | | | | [address];[place], [place] | | | | | | [address] | | | | + + + + + + + + | Specimen | + + | | + + + + + + + | Performing | Address | City/State/Zipcode | Phone Number | | Organization | | | | + + + + + | [facility] | [address] | [place] [address] | [phone] | + + + + + POC Glucose (11/18/2019 11:23 AM PST) + + + + + + | Component | Value | Ref Range | Performed | Pathologist | | | | | At | Signature | + + + + + + | Glucose, | 227 (H)Comment: Testing | 65 - 99 mg/dL | [facility] | | | POC | performed at [facility];[address] | | LABORATORY | | | | [address];[place] | | | | | | [address] | | | | + + + + + + + + | Specimen | + + | | + + + + + + + | Performing | Address | City/State/Zipcode | Phone Number | | Organization | | | | + + + + + | [facility] | [address] | [place] [address] | [phone] | + + + + + Renal Function Panel (11/18/2019 8:02 AM PST) + + + + + + | Component | Value | Ref Range | Performed | Pathologist | | | | | At | Signature | + + + + + + | Na | 139 | 135 - 145 | [facility] | | | | | mmol/L | LABORATORY | | + + + + + + | K | 4.2 | 3.5 - 4.9 | [facility] | | | | | mmol/L | LABORATORY | | + + + + + + | Cl | 110 (H) | 99 - 109 mmol/L | [facility] | | | | | | LABORATORY | | + + + + + + | CO2 | 23 | 23 - 32 mmol/L | [facility] | | | | | | LABORATORY | | + + + + + + | Anion Gap | 10 | 5 - 20 mmol/L | [facility] | | | | | | LABORATORY | | + + + + + + | Glucose | 143 (H) | 65 - 99 mg/dL | [facility] | | | | | | LABORATORY | | + + + + + + | BUN | 19 | 8 - 25 mg/dL | [facility] | | | | | | LABORATORY | | + + + + + + | Creatinine | 1.57 (H) | 0.70 - 1.30 | [facility] | | | | | mg/dL | LABORATORY | | + + + + + + | Calcium | 8.8 | 8.5 - 10.5 | [facility] | | | | | mg/dL | LABORATORY | | + + + + + + | Albumin | 3.6 | 3.6 - 5.0 g/dL | [facility] | | | | | | LABORATORY | | + + + + + + | Phosphorus | 3.8 | 2.3 - 4.8 mg/dL | [facility] | | | | | | LABORATORY | | + + + + + + | Estimated | 47 (L)Comment: GFR <60: | >60 | [facility] | | | GFR | CHRONIC KIDNEY DISEASE, | mL/min/1.73m2 | LABORATORY | | | | IF FOUND OVER A 3 MONTH | | | | | | PERIOD.GFR <15: KIDNEY | | | | | | FAILURE.FOR | | | | | | AMERICANS, MULTIPLY THE | | | | | | CALCULATED GFR BY | | | | | | 1.210.This eGFR is | | | | | | calculated using the | | | | | | MDRD IDMS traceable | | | | | | equation.Testing | | | | | | performed at [facility] | | | | | | [facility];[place], [place] | | | | | | [address] | | | | + + + + + + + + | Specimen | + + | Blood | + + + + + + + | Performing | Address | City/State/Zipcode | Phone Number | | Organization | | | | + + + + + | [facility] | [address] | [place] [address] | [phone] | + + + + + POC Glucose (11/18/2019 7:37 AM PST) + + + + + + | Component | Value | Ref Range | Performed | Pathologist | | | | | At | Signature | + + + + + + | Glucose, | 144 (H)Comment: Testing | 65 - 99 mg/dL | [facility] | | | POC | performed at [facility];[address] | | LABORATORY | | | | [address];[place] | | | | | | [address] | | | | + + + + + + + + | Specimen | + + | | + + + + + + + | Performing | Address | City/State/Zipcode | Phone Number | | Organization | | | | + + + + + | [facility] | [address] | [place] [address] | [phone] | + + + + + POC Glucose (11/17/2019 9:08 PM PST) + + + + + + | Component | Value | Ref Range | Performed | Pathologist | | | | | At | Signature | + + + + + + | Glucose, | 255 (H)Comment: Testing | 65 - 99 mg/dL | [facility] | | | POC | performed at [facility];[address] | | LABORATORY | | | | [address];[place], [place] | | | | | | [address] | | | | + + + + + + + + | Specimen | + + | | + + + + + + + | Performing | Address | City/State/Zipcode | Phone Number | | Organization | | | | + + + + + | [facility] | [address] | [place] [address] | [phone] | + + + + + Renal Function Panel (11/17/2019 8:01 AM PST) + + + + + + | Component | Value | Ref Range | Performed | Pathologist | | | | | At | Signature | + + + + + + | Na | 137 | 135 - 145 | [facility] | | | | | mmol/L | LABORATORY | | + + + + + + | K | 4.5 | 3.5 - 4.9 | [facility] | | | | | mmol/L | LABORATORY | | + + + + + + | Cl | 111 (H) | 99 - 109 mmol/L | [facility] | | | | | | LABORATORY | | + + + + + + | CO2 | 19 (L) | 23 - 32 mmol/L | [facility] | | | | | | LABORATORY | | + + + + + + | Anion Gap | 12 | 5 - 20 mmol/L | [facility] | | | | | | LABORATORY | | + + + + + + | Glucose | 138 (H) | 65 - 99 mg/dL | [facility] | | | | | | LABORATORY | | + + + + + + | BUN | 22 | 8 - 25 mg/dL | [facility] | | | | | | LABORATORY | | + + + + + + | Creatinine | 1.8 (H) | 0.70 - 1.30 | [facility] | | | | | mg/dL | LABORATORY | | + + + + + + | Calcium | 8.3 (L) | 8.5 - 10.5 | [facility] | | | | | mg/dL | LABORATORY | | + + + + + + | Albumin | 2.5 (L) | 3.6 - 5.0 g/dL | [facility] | | | | | | LABORATORY | | + + + + + + | Phosphorus | 4.6 | 2.3 - 4.8 mg/dL | [facility] | | | | | | LABORATORY | | + + + + + + | Estimated | 40 (L)Comment: GFR <60: | >60 | [facility] | | | GFR | CHRONIC KIDNEY DISEASE, | mL/min/1.73m2 | LABORATORY | | | | IF FOUND OVER A 3 MONTH | | | | | | PERIOD.GFR <15: KIDNEY | | | | | | FAILURE.FOR | | | | | | AMERICANS, MULTIPLY THE | | | | | | CALCULATED GFR BY | | | | | | 1.210.This eGFR is | | | | | | calculated using the | | | | | | MDRD IDMS traceable | | | | | | equation.Testing | | | | | | performed at [facility], [address] | | | | | [facility], | | | | | | [place] [address] | | | | + + + + + + + + | Specimen | + + | Blood | + + + + + + + | Performing | Address | City/State/Zipcode | Phone Number | | Organization | | | | + + + + + | [facility] | [address] | [place] [address] | [phone] | + + + + + POC Glucose (11/16/2019 8:17 PM PST) + + + + + + | Component | Value | Ref Range | Performed | Pathologist | | | | | At | Signature | + + + + + + | Glucose, | 213 (H)Comment: Testing | 65 - 99 mg/dL | [facility] | | | POC | performed at [facility];[address] | | LABORATORY | | | | [address];[place], [place] | | | | | | [address] | | | | + + + + + + + + | Specimen | + + | | + + + + + + + | Performing | Address | City/State/Zipcode | Phone Number | | Organization | | | | + + + + + | [facility] | [address] | [place] [address] | [phone] | + + + + + POC Glucose (11/16/2019 5:01 PM PST) + + + + + + | Component | Value | Ref Range | Performed | Pathologist | | | | | At | Signature | + + + + + + | Glucose, | 247 (H)Comment: Testing | 65 - 99 mg/dL | [facility] | | | POC | performed at [facility];[address] | | LABORATORY | | | | [address];[place], [place] | | | | | | [address] | | | | + + + + + + + + | Specimen | + + | | + + + + + + + | Performing | Address | City/State/Zipcode | Phone Number | | Organization | | | | + + + + + | [facility] | [address] | [place] [address] | [phone] | + + + + + POC Glucose (11/16/2019 12:05 PM PST) + + + + + + | Component | Value | Ref Range | Performed | Pathologist | | | | | At | Signature | + + + + + + | Glucose, | 131 (H)Comment: Testing | 65 - 99 mg/dL | [facility] | | | POC | performed at [facility];[address] | | LABORATORY | | | | [address];[place] | | | | | | [address] | | | | + + + + + + + + | Specimen | + + | | + + + + + + + | Performing | Address | City/State/Zipcode | Phone Number | | Organization | | | | + + + + + | [facility] | [address] | [place] [address] | [phone] | + + + + + Vancomycin, Trough (11/16/2019 10:45 AM PST) + + + + + + | Component | Value | Ref Range | Performed | Pathologist | | | | | At | Signature | + + + + + + | Vancomycin, | 19.8Comment: 15 to 20 | 10 - 20 ug/mL | [facility] | | | Trough | ug/mL for meningitis, | | LABORATORY | | | | osteomyelitis, | | | | | | endocarditis, sepsis, | | | | | | orhealthcare associated | | | | | | pneumonia, or an CATHERINE | | | | | | equal to or greater than | | | | | | 1.0 ug/mLTesting | | | | | | performed at [facility];[address] | | | | | | [address];[place] | | | | | | [address] | | | | + + + + + + + + | Specimen | + + | Blood | + + + + + + + | Performing | Address | City/State/Zipcode | Phone Number | | Organization | | | | + + + + + | [facility] | [address] | [place] [address] | [phone] | + + + + + POC Glucose (11/16/2019 8:13 AM PST) + + + + + + | Component | Value | Ref Range | Performed | Pathologist | | | | | At | Signature | + + + + + + | Glucose, | 99Comment: Testing | 65 - 99 mg/dL | [facility] | | | POC | performed at [facility];[address] | | LABORATORY | | | | [address];[place] | | | | | | [address] | | | | + + + + + + + + | Specimen | + + | | + + + + + + + | Performing | Address | City/State/Zipcode | Phone Number | | Organization | | | | + + + + + | [facility] | [address] | [place] [address] | [phone] | + + + + + CBC with Differential (11/16/2019 4:50 AM PST) + + + + + + | Component | Value | Ref Range | Performed | Pathologist | | | | | At | Signature | + + + + + + | WBC | 5.95 | 3.80 - 11.00 | [facility] | | | | | K/uL | LABORATORY | | + + + + + + | RBC | 2.99 (L) | 4.20 - 5.70 | [facility] | | | | | M/uL | LABORATORY | | + + + + + + | Hemoglobin | 7.3 (L) | 13.2 - 17.0 | [facility] | | | | | g/dL | LABORATORY | | + + + + + + | Hematocrit | 23.6 (L) | 39.0 - 50.0 % | [facility] | | | | | | LABORATORY | | + + + + + + | MCV | 78.9 (L) | 80.0 - 100.0 fl | [facility] | | | | | | LABORATORY | | + + + + + + | MCH | 24.4 (L) | 27.0 - 34.0 pg | [facility] | | | | | | LABORATORY | | + + + + + + | MCHC | 30.9 (L) | 32.0 - 35.5 | [facility] | | | | | g/dL | LABORATORY | | + + + + + + | RDW-SD | 40.7 | 37 - 53 fl | [facility] | | | | | | LABORATORY | | + + + + + + | Platelet | 578 (H) | 150 - 400 K/uL | [facility] | | | Count | | | LABORATORY | | + + + + + + | MPV | 9.0Comment: NO NORMAL | fl | [facility] | | | | RANGE ESTABLISHED | | LABORATORY | | + + + + + + | Diff Type | AUTOMATED | | [facility] | | | | | | LABORATORY | | + + + + + + | % nRBC | 0.0 | 0 /100WBC | [facility] | | | | | | LABORATORY | | + + + + + + | % | 69.50 | % | [facility] | | | Neutrophils | | | LABORATORY | | + + + + + + | IMMATURE | 0.70 | % | [facility] | | | GRANULOCYTE | | | LABORATORY | | + + + + + + | % | 17.60 | % | [facility] | | | Lymphocytes | | | LABORATORY | | + + + + + + | Monocyte % | 8.40 | % | [facility] | | | | | | LABORATORY | | + + + + + + | Eosinophils | 3.00 | % | [facility] | | | % | | | LABORATORY | | + + + + + + | Basophils % | 0.80 | % | [facility] | | | | | | LABORATORY | | + + + + + + | Neutrophils | 4.13 | 1.90 - 7.40 | [facility] | | | , Absolute | | K/uL | LABORATORY | | + + + + + + | IMMATURE | 0.04Comment: NOTE NEW | 0.00 - 0.07 | [facility] | | | GRANS AB | REFERENCE RANGE | K/uL | LABORATORY | | + + + + + + | Absolute | 1.05 | 1.00 - 3.90 | [facility] | | | Lymphocytes | | K/uL | LABORATORY | | + + + + + + | Absolute | 0.50 | 0.00 - 0.80 | [facility] | | | Monocytes | | K/uL | LABORATORY | | + + + + + + | Eosinophils | 0.18 | 0.00 - 0.50 | [facility] | | | , Absolute | | K/uL | LABORATORY | | + + + + + + | Basophils, | 0.05Comment: Testing | 0.00 - 0.10 | [facility] | | | Absolute | performed at [facility], [address] | K/uL | LABORATORY | | | | [address], | | | | | | [place] [address] | | | | + + + + + + + + | Specimen | + + | | + + + + + + + | Performing | Address | City/State/Zipcode | Phone Number | | Organization | | | | + + + + + | [facility] | [address] | [place] [address] | [phone] | + + + + + Renal Function Panel (11/16/2019 4:50 AM PST) + + + + + + | Component | Value | Ref Range | Performed | Pathologist | | | | | At | Signature | + + + + + + | Na | 137 | 135 - 145 | [facility] | | | | | mmol/L | LABORATORY | | + + + + + + | K | 4.2 | 3.5 - 4.9 | [facility] | | | | | mmol/L | LABORATORY | | + + + + + + | Cl | 105 | 99 - 109 mmol/L | [facility] | | | | | | LABORATORY | | + + + + + + | CO2 | 27 | 23 - 32 mmol/L | [facility] | | | | | | LABORATORY | | + + + + + + | Anion Gap | 9 | 5 - 20 mmol/L | [facility] | | | | | | LABORATORY | | + + + + + + | Glucose | 84 | 65 - 99 mg/dL | [facility] | | | | | | LABORATORY | | + + + + + + | BUN | 17 | 8 - 25 mg/dL | [facility] | | | | | | LABORATORY | | + + + + + + | Creatinine | 1.4 (H) | 0.70 - 1.30 | [facility] | | | | | mg/dL | LABORATORY | | + + + + + + | Calcium | 9.0 | 8.5 - 10.5 | [facility] | | | | | mg/dL | LABORATORY | | + + + + + + | Albumin | 2.4 (L) | 3.6 - 5.0 g/dL | [facility] | | | | | | LABORATORY | | + + + + + + | Phosphorus | 4.2 | 2.3 - 4.8 mg/dL | [facility] | | | | | | LABORATORY | | + + + + + + | Estimated | 53 (L)Comment: GFR <60: | >60 | [facility] | | | GFR | CHRONIC KIDNEY DISEASE, | mL/min/1.73m2 | LABORATORY | | | | IF FOUND OVER A 3 MONTH | | | | | | PERIOD.GFR <15: KIDNEY | | | | | | FAILURE.FOR | | | | | | AMERICANS, MULTIPLY THE | | | | | | CALCULATED GFR BY | | | | | | 1.210.This eGFR is | | | | | | calculated using the | | | | | | MDRD [facility] traceable | | | | | | equation.Testing | | | | | | performed at [facility], [address] | | | | | | [facility], | | | | | | [place] [address] | | | | + + + + + + + + | Specimen | + + | Blood | + + + + + + + | Performing | Address | City/State/Zipcode | Phone Number | | Organization | | | | + + + + + | [facility] | [address] | [place] [address] | [phone] | + + + + + POC Glucose (11/15/2019 9:21 PM PST) + + + + + + | Component | Value | Ref Range | Performed | Pathologist | | | | | At | Signature | + + + + + + | Glucose, | 130 (H)Comment: Testing | 65 - 99 mg/dL | [facility] | | | POC | performed at [facility];[address] | | LABORATORY | | | | [address];[place] | | | | | | [address] | | | | + + + + + + + + | Specimen | + + | | + + + + + + + | Performing | Address | City/State/Zipcode | Phone Number | | Organization | | | | + + + + + | [facility] | [address] | [place] [address] | [phone] | + + + + + POC Glucose (11/15/2019 5:05 PM PST) + + + + + + | Component | Value | Ref Range | Performed | Pathologist | | | | | At | Signature | + + + + + + | Glucose, | 163 (H)Comment: Testing | 65 - 99 mg/dL | [facility] | | | POC | performed at [facility];[address] | | LABORATORY | | | | [address];[place], [place] | | | | | | [address] | | | | + + + + + + + + | Specimen | + + | | + + + + + + + | Performing | Address | City/State/Zipcode | Phone Number | | Organization | | | | + + + + + | [facility] | [address] | [place] [address] | [phone] | + + + + + POC Glucose (11/15/2019 12:11 PM PST) + + + + + + | Component | Value | Ref Range | Performed | Pathologist | | | | | At | Signature | + + + + + + | Glucose, | 165 (H)Comment: Testing | 65 - 99 mg/dL | [facility] | | | POC | performed at [facility];[address] | | LABORATORY | | | | [address];[place], [place] | | | | | | [address] | | | | + + + + + + + + | Specimen | + + | | + + + + + + + | Performing | Address | City/State/Zipcode | Phone Number | | Organization | | | | + + + + + | [facility] | [address] | [place] [address] | [phone] | + + + + + POC Glucose (11/15/2019 8:06 AM PST) + + + + + + | Component | Value | Ref Range | Performed | Pathologist | | | | | At | Signature | + + + + + + | Glucose, | 139 (H)Comment: Testing | 65 - 99 mg/dL | [facility] | | | POC | performed at [facility];[address] | | LABORATORY | | | | [address];[place] | | | | | | [address] | | | | + + + + + + + + | Specimen | + + | | + + + + + + + | Performing | Address | City/State/Zipcode | Phone Number | | Organization | | | | + + + + + | [facility] | [address] | [place] [address] | [phone] | + + + + + POC Glucose (11/14/2019 8:01 PM PST) + + + + + + | Component | Value | Ref Range | Performed | Pathologist | | | | | At | Signature | + + + + + + | Glucose, | 174 (H)Comment: Testing | 65 - 99 mg/dL | [facility] | | | POC | performed at [facility];[address] | | LABORATORY | | | | [address];[place] | | | | | | [address] | | | | + + + + + + + + | Specimen | + + | | + + + + + + + | Performing | Address | City/State/Zipcode | Phone Number | | Organization | | | | + + + + + | [facility] | [address] | [place] [address] | [phone] | + + + + + POC Glucose (11/14/2019 4:33 PM PST) + + + + + + | Component | Value | Ref Range | Performed | Pathologist | | | | | At | Signature | + + + + + + | Glucose, | 255 (H)Comment: Testing | 65 - 99 mg/dL | [facility] | | | POC | performed at [facility];[address] | | LABORATORY | | | | [address];[place], [place] | | | | | | [address] | | | | + + + + + + + + | Specimen | + + | | + + + + + + + | Performing | Address | City/State/Zipcode | Phone Number | | Organization | | | | + + + + + | [facility] | [address] | [place] [address] | [phone] | + + + + + POC Glucose (11/14/2019 12:12 PM PST) + + + + + + | Component | Value | Ref Range | Performed | Pathologist | | | | | At | Signature | + + + + + + | Glucose, | 223 (H)Comment: Testing | 65 - 99 mg/dL | [facility] | | | POC | performed at [facility] [facility];[address] | | LABORATORY | | | | [address];[place], [place] | | | | | | [address] | | | | + + + + + + + + | Specimen | + + | | + + + + + + + | Performing | Address | City/State/Zipcode | Phone Number | | Organization | | | | + + + + + | [facility] | [address] | [place] [address] | [phone] | + + + + + Renal Function Panel (11/14/2019 8:11 AM PST) + + + + + + | Component | Value | Ref Range | Performed | Pathologist | | | | | At | Signature | + + + + + + | Na | 137 | 135 - 145 | [facility] | | | | | mmol/L | LABORATORY | | + + + + + + | K | 4.4 | 3.5 - 4.9 | [facility] | | | | | mmol/L | LABORATORY | | + + + + + + | Cl | 104 | 99 - 109 mmol/L | [facility] | | | | | | LABORATORY | | + + + + + + | CO2 | 28 | 23 - 32 mmol/L | [facility] | | | | | | LABORATORY | | + + + + + + | Anion Gap | 9 | 5 - 20 mmol/L | [facility] | | | | | | LABORATORY | | + + + + + + | Glucose | 130 (H) | 65 - 99 mg/dL | [facility] | | | | | | LABORATORY | | + + + + + + | BUN | 13 | 8 - 25 mg/dL | [facility] | | | | | | LABORATORY | | + + + + + + | Creatinine | 1.4 (H) | 0.70 - 1.30 | [facility] | | | | | mg/dL | LABORATORY | | + + + + + + | Calcium | 8.3 (L) | 8.5 - 10.5 | [facility] | | | | | mg/dL | LABORATORY | | + + + + + + | Albumin | 2.3 (L) | 3.6 - 5.0 g/dL | [facility] | | | | | | LABORATORY | | + + + + + + | Phosphorus | 3.5 | 2.3 - 4.8 mg/dL | [facility] | | | | | | LABORATORY | | + + + + + + | Estimated | 53 (L)Comment: GFR <60: | >60 | [facility] | | | GFR | CHRONIC KIDNEY DISEASE, | mL/min/1.73m2 | LABORATORY | | | | IF FOUND OVER A 3 MONTH | | | | | | PERIOD.GFR <15: KIDNEY | | | | | | FAILURE.FOR | | | | | | AMERICANS, MULTIPLY THE | | | | | | CALCULATED GFR BY | | | | | | 1.210.This eGFR is | | | | | | calculated using the | | | | | | MDRD IDMS traceable | | | | | | equation.Testing | | | | | | performed at [facility], [address] | | | | | | [address], | | | | | | [place] [address] | | | | + + + + + + + + | Specimen | + + | Blood | + + + + + + + | Performing | Address | City/State/Zipcode | Phone Number | | Organization | | | | + + + + + | [facility] | [address] [facility] | [place] [address] | [phone] | + + + + + POC Glucose (11/14/2019 7:53 AM PST) + + + + + + | Component | Value | Ref Range | Performed | Pathologist | | | | | At | Signature | + + + + + + | Glucose, | 152 (H)Comment: Testing | 65 - 99 mg/dL | [facility] | | | POC | performed at [facility];[address] | | LABORATORY | | | | [address];[place], [place] | | | | | | [address] | | | | + + + + + + + + | Specimen | + + | | + + + + + + + | Performing | Address | City/State/Zipcode | Phone Number | | Organization | | | | + + + + + | [facility] | [address] | [place] [address] | [phone] | + + + + + POC Glucose (11/13/2019 9:24 PM PST) + + + + + + | Component | Value | Ref Range | Performed | Pathologist | | | | | At | Signature | + + + + + + | Glucose, | 198 (H)Comment: Testing | 65 - 99 mg/dL | [facility] | | | POC | performed at [facility];[address] | | LABORATORY | | | | [address];[place] | | | | | | [address] | | | | + + + + + + + + | Specimen | + + | | + + + + + + + | Performing | Address | City/State/Zipcode | Phone Number | | Organization | | | | + + + + + | [facility] | [address] | [place] [address] | [phone] | + + + + + Hector Fitzpatrick (11/13/2019 7:46 PM PST) + + + + + + | Component | Value | Ref Range | Performed | Pathologist | | | | | At | Signature | + + + + + + | Vancomycin, | 21.8 ()Comment: 15 to | 10 - 20 ug/mL | [facility] | | | Trough | 20 ug/mL for meningitis, | | LABORATORY | | | | osteomyelitis, | | | | | | endocarditis, sepsis, | | | | | | orhealthcare associated | | | | | | pneumonia, or an CATHERINE | | | | | | equal to or greater than | | | | | | 1.0 ug/mLCALLED NURSING | | | | | | UNITREAD BACK RESULTS | | | | | | TIFFANIE Garibay RN 7RP @ | | | | | | 2016 DLSTesting | | | | | | performed at [facility];[address] | | | | | | [address] [facility];[place], [place] | | | | | | [address] | | | | + + + + + + + + | Specimen | + + | Blood | + + + + + + + | Performing | Address | City/State/Zipcode | Phone Number | | Organization | | | | + + + + + | [facility] | [address] | [place] [address] | [phone] | + + + + + POC Glucose (11/13/2019 4:28 PM PST) + + + + + + | Component | Value | Ref Range | Performed | Pathologist | | | | | At | Signature | + + + + + + | Glucose, | 215 (H)Comment: Testing | 65 - 99 mg/dL | [facility] | | | POC | performed at [facility];[address] | | LABORATORY | | | | [address];[place] | | | | | | [address] | | | | + + + + + + + + | Specimen | + + | | + + + + + + + | Performing | Address | City/State/Zipcode | Phone Number | | Organization | | | | + + + + + | [facility] | [address] | [place] [address] | [phone] | + + + + + POC Glucose (11/13/2019 11:42 AM PST) + + + + + + | Component | Value | Ref Range | Performed | Pathologist | | | | | At | Signature | + + + + + + | Glucose, | 213 (H)Comment: Testing | 65 - 99 mg/dL | [facility] | | | POC | performed at [facility];[address] | | LABORATORY | | | | [address];[place] | | | | | | [address] | | | | + + + + + + + + | Specimen | + + | | + + + + + + + | Performing | Address | City/State/Zipcode | Phone Number | | Organization | | | | + + + + + | [facility] | [address] | [place] [address] | [phone] | + + + + + POC Glucose (11/13/2019 8:04 AM PST) + + + + + + | Component | Value | Ref Range | Performed | Pathologist | | | | | At | Signature | + + + + + + | Glucose, | 137 (H)Comment: Testing | 65 - 99 mg/dL | [facility] | | | POC | performed at [facility];[address] | | LABORATORY | | | | [address];[place], [place] | | | | | | [address] | | | | + + + + + + + + | Specimen | + + | | + + + + + + + | Performing | Address | City/State/Zipcode | Phone Number | | Organization | | | | + + + + + | [facility] | [address] | [place] [address] | [phone] | + + + + + Renal Function Panel (11/13/2019 4:55 AM PST) + + + + + + | Component | Value | Ref Range | Performed | Pathologist | | | | | At | Signature | + + + + + + | Na | 137 | 135 - 145 | [facility] | | | | | mmol/L | LABORATORY | | + + + + + + | K | 4.0 | 3.5 - 4.9 | [facility] | | | | | mmol/L | LABORATORY | | + + + + + + | Cl | 102 | 99 - 109 mmol/L | [facility] | | | | | | LABORATORY | | + + + + + + | CO2 | 30 | 23 - 32 mmol/L | [facility] | | | | | | LABORATORY | | + + + + + + | Anion Gap | 9 | 5 - 20 mmol/L | [facility] | | | | | | LABORATORY | | + + + + + + | Glucose | 126 (H) | 65 - 99 mg/dL | [facility] | | | | | | LABORATORY | | + + + + + + | BUN | 13 | 8 - 25 mg/dL | [facility] | | | | | | LABORATORY | | + + + + + + | Creatinine | 1.4 (H) | 0.70 - 1.30 | [facility] | | | | | mg/dL | LABORATORY | | + + + + + + | Calcium | 8.7 | 8.5 - 10.5 | [facility] | | | | | mg/dL | LABORATORY | | + + + + + + | Albumin | 2.3 (L) | 3.6 - 5.0 g/dL | [facility] | | | | | | LABORATORY | | + + + + + + | Phosphorus | 3.7 | 2.3 - 4.8 mg/dL | [facility] | | | | | | LABORATORY | | + + + + + + | Estimated | 53 (L)Comment: GFR <60: | >60 | [facility] | | | GFR | CHRONIC KIDNEY DISEASE, | mL/min/1.73m2 | LABORATORY | | | | IF FOUND OVER A 3 MONTH | | | | | | PERIOD.GFR <15: KIDNEY | | | | | | FAILURE.FOR | | | | | | AMERICANS, MULTIPLY THE | | | | | | CALCULATED GFR BY | | | | | | 1.210.This eGFR is | | | | | | calculated using the | | | | | | MDRD IDMS traceable | | | | | | equation.Testing | | | | | | performed at [facility], [address] | | | | | | [facility], | | | | | | [place] [address] | | | | + + + + + + + + | Specimen | + + | Blood | + + + + + + + | Performing | Address | City/State/Zipcode | Phone Number | | Organization | | | | + + + + + | [facility] | [address] | [place] [address] | [phone] | + + + + + POC Glucose (11/12/2019 8:12 PM PST) + + + + + + | Component | Value | Ref Range | Performed | Pathologist | | | | | At | Signature | + + + + + + | Glucose, | 100 (H)Comment: Testing | 65 - 99 mg/dL | [facility] | | | POC | performed at [facility];[address] | | LABORATORY | | | | [address];[place] | | | | | | [address] | | | | + + + + + + + + | Specimen | + + | | + + + + + + + | Performing | Address | City/State/Zipcode | Phone Number | | Organization | | | | + + + + + | [facility] | [address] | [place] [address] | [phone] | + + + + + CBC no Differential (11/12/2019 7:18 PM PST) + + + + + + | Component | Value | Ref Range | Performed | Pathologist | | | | | At | Signature | + + + + + + | WBC | 7.52 | 3.80 - 11.00 | [facility] | | | | | K/uL | LABORATORY | | + + + + + + | RBC | 2.93 (L) | 4.20 - 5.70 | [facility] | | | | | M/uL | LABORATORY | | + + + + + + | Hemoglobin | 7.3 (L) | 13.2 - 17.0 | [facility] | | | | | g/dL | LABORATORY | | + + + + + + | Hematocrit | 23.4 (L) | 39.0 - 50.0 % | [facility] | | | | | | LABORATORY | | + + + + + + | MCV | 79.9 (L) | 80.0 - 100.0 fl | [facility] | | | | | | LABORATORY | | + + + + + + | MCH | 24.9 (L) | 27.0 - 34.0 pg | [facility] | | | | | | LABORATORY | | + + + + + + | MCHC | 31.2 (L) | 32.0 - 35.5 | [facility] | | | | | g/dL | LABORATORY | | + + + + + + | RDW-SD | 41.1 | 37 - 53 fl | [facility] | | | | | | LABORATORY | | + + + + + + | Platelet | 514 (H) | 150 - 400 K/uL | [facility] | | | Count | | | LABORATORY | | + + + + + + | MPV | 8.8Comment: NO NORMAL | fl | [facility] | | | | RANGE ESTABLISHEDTesting | | LABORATORY | | | | performed at [facility];[address] | | | | | | [address];[place] | | | | | | [address] | | | | + + + + + + + + | Specimen | + + | Blood | + + + + + + + | Performing | Address | City/State/Zipcode | Phone Number | | Organization | | | | + + + + + | [facility] | [address] | [place] [address] | [phone] | + + + + + Hemoglobin A1C (11/12/2019 7:18 PM PST) + + + + + + | Component | Value | Ref Range | Performed | Pathologist | | | | | At | Signature | + + + + + + | Hemoglobin | 8.0 (H)Comment: HbA1c | 4.0 - 6.0 % | [facility] | | | A1c | method is certified by | | LABORATORY | | | | NGSP and traceable to | | | | | | the DCCT reference | | | | | | method.ADA guidelines | | | | | | indicate: | | | | | | Prediabetes: 5.7 - 6.4 | | | | | | Diabetes: >6.4 | | | | | | Glycemic control for | | | | | | adults with diabetes: | | | | | | <7.0Effective 10/17/2018: | | | | | | Note New Method | | | | + + + + + + | Estimated | 183 (H)Comment: | <154 mg/dL | [facility] | | | Average | Estimated Average | | LABORATORY | | | Glucose | Glucose calculated from | | | | | | hemoglobin A1c by use of | | | | | | the ADArecommended | | | | | | formula.Testing | | | | | | performed at [facility], [address] | | | | | | [facility], | | | | | | [place] [address] | | | | + + + + + + + + | Specimen | + + | Blood | + + + + + + + | Performing | Address | City/State/Zipcode | Phone Number | | Organization | | | | + + + + + | [facility] | [address] | [place] [address] | [phone] | + + + + + POC Glucose (11/12/2019 4:29 PM PST) + + + + + + | Component | Value | Ref Range | Performed | Pathologist | | | | | At | Signature | + + + + + + | Glucose, | 367 (H)Comment: Testing | 65 - 99 mg/dL | [facility] | | | POC | performed at [facility];[address] | | LABORATORY | | | | [address];[place] | | | | | | [address] | | | | + + + + + + + + | Specimen | + + | | + + + + + + + | Performing | Address | City/State/Zipcode | Phone Number | | Organization | | | | + + + + + | [facility] | [address] | [place] [address] | [phone] | + + + + + POC Glucose (11/12/2019 11:53 AM PST) + + + + + + | Component | Value | Ref Range | Performed | Pathologist | | | | | At | Signature | + + + + + + | Glucose, | 231 (H)Comment: Testing | 65 - 99 mg/dL | [facility] | | | POC | performed at [facility];[address] | | LABORATORY | | | | [address];[place], [place] | | | | | | [address] | | | | + + + + + + + + | Specimen | + + | | + + + + + + + | Performing | Address | City/State/Zipcode | Phone Number | | Organization | | | | + + + + + | [facility] | [address] | [place] [address] | [phone] | + + + + + POC Glucose (11/12/2019 8:11 AM PST) + + + + + + | Component | Value | Ref Range | Performed | Pathologist | | | | | At | Signature | + + + + + + | Glucose, | 187 (H)Comment: Testing | 65 - 99 mg/dL | [facility] | | | POC | performed at [facility];[address] | | LABORATORY | | | | [address];[place], [place] | | | | | | [address] | | | | + + + + + + + + | Specimen | + + | | + + + + + + + | Performing | Address | City/State/Zipcode | Phone Number | | Organization | | | | + + + + + | [facility] | [address] | [place] [address] | [phone] | + + + + + Vancomycin, Trough (11/12/2019 7:11 AM PST) + + + + + + | Component | Value | Ref Range | Performed | Pathologist | | | | | At | Signature | + + + + + + | Vancomycin, | 15.5Comment: 15 to 20 | 10 - 20 ug/mL | [facility] | | | Trough | ug/mL for meningitis, | | LABORATORY | | | | osteomyelitis, | | | | | | endocarditis, sepsis, | | | | | | orhealthcare associated | | | | | | pneumonia, or an CATHERINE | | | | | | equal to or greater than | | | | | | 1.0 ug/mLTesting | | | | | | performed at [facility];[address] | | | | | | [address];[place] | | | | | | [address] | | | | + + + + + + + + | Specimen | + + | Blood | + + + + + + + | Performing | Address | City/State/Zipcode | Phone Number | | Organization | | | | + + + + + | [facility] | [address] | [place] [address] | [phone] | + + + + + Renal Function Panel (11/12/2019 5:16 AM PST) + + + + + + | Component | Value | Ref Range | Performed | Pathologist | | | | | At | Signature | + + + + + + | Na | 136 | 135 - 145 | [facility] | | | | | mmol/L | LABORATORY | | + + + + + + | K | 3.8 | 3.5 - 4.9 | [facility] | | | | | mmol/L | LABORATORY | | + + + + + + | Cl | 100 | 99 - 109 mmol/L | [facility] | | | | | | LABORATORY | | + + + + + + | CO2 | 29 | 23 - 32 mmol/L | [facility] | | | | | | LABORATORY | | + + + + + + | Anion Gap | 11 | 5 - 20 mmol/L | [facility] | | | | | | LABORATORY | | + + + + + + | Glucose | 226 (H) | 65 - 99 mg/dL | [facility] | | | | | | LABORATORY | | + + + + + + | BUN | 14 | 8 - 25 mg/dL | [facility] | | | | | | LABORATORY | | + + + + + + | Creatinine | 1.4 (H) | 0.70 - 1.30 | [facility] | | | | | mg/dL | LABORATORY | | + + + + + + | Calcium | 8.5 | 8.5 - 10.5 | [facility] | | | | | mg/dL | LABORATORY | | + + + + + + | Albumin | 2.2 (L) | 3.6 - 5.0 g/dL | [facility] | | | | | | LABORATORY | | + + + + + + | Phosphorus | 3.2 | 2.3 - 4.8 mg/dL | [facility] | | | | | | LABORATORY | | + + + + + + | Estimated | 53 (L)Comment: GFR <60: | >60 | [facility] | | | GFR | CHRONIC KIDNEY DISEASE, | mL/min/1.73m2 | LABORATORY | | | | IF FOUND OVER A 3 MONTH | | | | | | PERIOD.GFR <15: KIDNEY | | | | | | FAILURE.FOR | | | | | | AMERICANS, MULTIPLY THE | | | | | | CALCULATED GFR BY | | | | | | 1.210.This eGFR is | | | | | | calculated using the | | | | | | MDRD IDMS traceable | | | | | | equation.Testing | | | | | | performed at [facility], [address] | | | | | [address] [facility], | | | | | | [place] [address] | | | | + + + + + + + + | Specimen | + + | Blood | + + + + + + + | Performing | Address | City/State/Zipcode | Phone Number | | Organization | | | | + + + + + | [facility] | [address] | [place] [address] | [phone] | + + + + + POC Glucose (11/12/2019 5:12 AM PST) + + + + + + | Component | Value | Ref Range | Performed | Pathologist | | | | | At | Signature | + + + + + + | Glucose, | 250 (H)Comment: Testing | 65 - 99 mg/dL | [facility] | | | POC | performed at [facility];[address] | | LABORATORY | | | | [address];[place], [place] | | | | | | [address] | | | | + + + + + + + + | Specimen | + + | | + + + + + + + | Performing | Address | City/State/Zipcode | Phone Number | | Organization | | | | + + + + + | [facility] | [address] | [place] [address] | [phone] | + + + + + POC Glucose (11/11/2019 8:59 PM PST) + + + + + + | Component | Value | Ref Range | Performed | Pathologist | | | | | At | Signature | + + + + + + | Glucose, | 302 (H)Comment: Testing | 65 - 99 mg/dL | [facility] | | | POC | performed at [facility];[address] | | LABORATORY | | | | [address];[place] | | | | | | [address] | | | | + + + + + + + + | Specimen | + + | | + + + + + + + | Performing | Address | City/State/Zipcode | Phone Number | | Organization | | | | + + + + + | [facility] | [address] | [place] [address] | [phone] | + + + + + POC Glucose (11/11/2019 4:41 PM PST) + + + + + + | Component | Value | Ref Range | Performed | Pathologist | | | | | At | Signature | + + + + + + | Glucose, | 291 (H)Comment: Testing | 65 - 99 mg/dL | [facility] | | | POC | performed at [facility];[address] | | LABORATORY | | | | [address];[place], [place] | | | | | | [address] | | | | + + + + + + + + | Specimen | + + | | + + + + + + + | Performing | Address | City/State/Zipcode | Phone Number | | Organization | | | | + + + + + | [facility] | [address] | [place] [address] | [phone] | + + + + + POC Glucose (11/11/2019 11:35 AM PST) + + + + + + | Component | Value | Ref Range | Performed | Pathologist | | | | | At | Signature | + + + + + + | Glucose, | 186 (H)Comment: Testing | 65 - 99 mg/dL | [facility] | | | POC | performed at [facility];[address] | | LABORATORY | | | | [address];[place] | | | | | | [address] | | | | + + + + + + + + | Specimen | + + | | + + + + + + + | Performing | Address | City/State/Zipcode | Phone Number | | Organization | | | | + + + + + | [facility] | [address] | [place] [address] | [phone] | + + + + + POC Glucose (11/11/2019 7:56 AM PST) + + + + + + | Component | Value | Ref Range | Performed | Pathologist | | | | | At | Signature | + + + + + + | Glucose, | 174 (H)Comment: Testing | 65 - 99 mg/dL | [facility] | | | POC | performed at [facility];[address] | | LABORATORY | | | | [address];[place] | | | | | | [address] | | | | + + + + + + + + | Specimen | + + | | + + + + + + + | Performing | Address | City/State/Zipcode | Phone Number | | Organization | | | | + + + + + | [facility] | [address] | [place] [address] | [phone] | + + + + + Renal Function Panel (11/11/2019 5:46 AM PST) + + + + + + | Component | Value | Ref Range | Performed | Pathologist | | | | | At | Signature | + + + + + + | Na | 136 | 135 - 145 | [facility] | | | | | mmol/L | LABORATORY | | + + + + + + | K | 3.8 | 3.5 - 4.9 | [facility] | | | | | mmol/L | LABORATORY | | + + + + + + | Cl | 98 (L) | 99 - 109 mmol/L | [facility] | | | | | | LABORATORY | | + + + + + + | CO2 | 30 | 23 - 32 mmol/L | [facility] | | | | | | LABORATORY | | + + + + + + | Anion Gap | 12 | 5 - 20 mmol/L | [facility] | | | | | | LABORATORY | | + + + + + + | Glucose | 183 (H) | 65 - 99 mg/dL | [facility] | | | | | | LABORATORY | | + + + + + + | BUN | 13 | 8 - 25 mg/dL | [facility] | | | | | | LABORATORY | | + + + + + + | Creatinine | 1.5 (H) | 0.70 - 1.30 | [facility] | | | | | mg/dL | LABORATORY | | + + + + + + | Calcium | 9.0 | 8.5 - 10.5 | [facility] | | | | | mg/dL | LABORATORY | | + + + + + + | Albumin | 2.2 (L) | 3.6 - 5.0 g/dL | [facility] | | | | | | LABORATORY | | + + + + + + | Phosphorus | 4.7 | 2.3 - 4.8 mg/dL | [facility] | | | | | | LABORATORY | | + + + + + + | Estimated | 49 (L)Comment: GFR <60: | >60 | [facility] | | | GFR | CHRONIC KIDNEY DISEASE, | mL/min/1.73m2 | LABORATORY | | | | IF FOUND OVER A 3 MONTH | | | | | | PERIOD.GFR <15: KIDNEY | | | | | | FAILURE.FOR | | | | | | AMERICANS, MULTIPLY THE | | | | | | CALCULATED GFR BY | | | | | | 1.210.This eGFR is | | | | | | calculated using the | | | | | | MDRD IDMS traceable | | | | | | equation.Testing | | | | | | performed at [facility], [address] | | | | | [address], | | | | | | [place] [address] | | | | + + + + + + + + | Specimen | + + | | + + + + + + + | Performing | Address | City/State/Zipcode | Phone Number | | Organization | | | | + + + + + | [facility] | [address] | [place] [address] | [phone] | + + + + + Sedimentation Rate (11/11/2019 5:46 AM PST) + + + + + + | Component | Value | Ref Range | Performed | Pathologist | | | | | At | Signature | + + + + + + | ESR | GREATER THAN 130Comment: | 0 - 20 mm/Hr | [facility] | | | | RESULT VERIFIEDTesting | | LABORATORY | | | | performed at [facility], [address] | | | | | [address] [place], | | | | | | [place] [address] | | | | + + + + + + + + | Specimen | + + | Blood | + + + + + + + | Performing | Address | City/State/Zipcode | Phone Number | | Organization | | | | + + + + + | [facility] | [address] | [place] [address] | [phone] | + + + + + C-Reactive Protein (11/11/2019 5:46 AM PST) + + + + + + | Component | Value | Ref Range | Performed | Pathologist | | | | | At | Signature | + + + + + + | CRP | 8.1 (H)Comment: Testing | <0.5 mg/dL | [facility] | | | | performed at [facility], [address] | | LABORATORY | | | | [address] [place], | | | | | | [place] [address] | | | | + + + + + + + + | Specimen | + + | Blood | + + + + + + + | Performing | Address | City/State/Zipcode | Phone Number | | Organization | | | | + + + + + | [facility] | [address] | [place] [address] | [phone] | + + + + + POC Glucose (11/11/2019 4:45 AM PST) + + + + + + | Component | Value | Ref Range | Performed | Pathologist | | | | | At | Signature | + + + + + + | Glucose, | 209 (H)Comment: Testing | 65 - 99 mg/dL | [facility] | | | POC | performed at [facility];[address] | LABORATORY | | | | [address];[place], [place] | | | | | | [address] | | | | + + + + + + + + | Specimen | + + | | + + + + + + + | Performing | Address | City/State/Zipcode | Phone Number | | Organization | | | | + + + + + | [facility] | [address] | [place] [address] | [phone] | + + + + + POC Glucose (11/11/2019 12:32 AM PST) + + + + + + | Component | Value | Ref Range | Performed | Pathologist | | | | | At | Signature | + + + + + + | Glucose, | 239 (H)Comment: Testing | 65 - 99 mg/dL | [facility] | | | POC | performed at [facility];[address] | LABOR[address] | | | [address];[place], [place] | | | | | | [address] | | | | + + + + + + + + | Specimen | + + | | + + + + + + + | Performing | Address | City/State/Zipcode | Phone Number | | Organization | | | | + + + + + | [facility] | [address] | [place] [address] | [phone] | + + + + + POC Glucose (11/10/2019 8:39 PM PST) + + + + + + | Component | Value | Ref Range | Performed | Pathologist | | | | | At | Signature | + + + + + + | Glucose, | 237 (H)Comment: Testing | 65 - 99 mg/dL | [facility] | | | POC | performed at [facility];[address] | | LABORATORY | | | | [address];[place] | | | | | | [address] | | | | + + + + + + + + | Specimen | + + | | + + + + + + + | Performing | Address | City/State/Zipcode | Phone Number | | Organization | | | | + + + + + | [facility] | [address] | [place] [address] | [phone] | + + + + + Vancomycin, Trough (11/10/2019 5:50 PM PST) + + + + + + | Component | Value | Ref Range | Performed | Pathologist | | | | | At | Signature | + + + + + + | Vancomycin, | 19.8Comment: 15 to 20 | 10 - 20 ug/mL | [facility] | | | Trough | ug/mL for meningitis, | | LABORATORY | | | | osteomyelitis, | | | | | | endocarditis, sepsis, | | | | | | orhealthcare associated | | | | | | pneumonia, or an CATHERINE | | | | | | equal to or greater than | | | | | | 1.0 ug/mLTesting | | | | | | performed at [facility] | | | | | | [facility];[place], [place] | | | | | | [address] | | | | + + + + + + + + | Specimen | + + | Blood | + + + + + + + | Performing | Address | City/State/Zipcode | Phone Number | | Organization | | | | + + + + + | [facility] | [address] | [place] [address] | [phone] | + + + + + POC Glucose (11/10/2019 5:14 PM PST) + + + + + + | Component | Value | Ref Range | Performed | Pathologist | | | | | At | Signature | + + + + + + | Glucose, | 238 (H)Comment: Testing | 65 - 99 mg/dL | [facility] | | | POC | performed at [facility];[address] | | LABORATORY | | | | [address];[place] | | | | | | [address] | | | | + + + + + + + + | Specimen | + + | | + + + + + + + | Performing | Address | City/State/Zipcode | Phone Number | | Organization | | | | + + + + + | [facility] | [address] | [place] [address] | [phone] | + + + + + POC Glucose (11/10/2019 8:10 AM PST) + + + + + + | Component | Value | Ref Range | Performed | Pathologist | | | | | At | Signature | + + + + + + | Glucose, | 179 (H)Comment: Testing | 65 - 99 mg/dL | [facility] | | | POC | performed at [facility];[address] | | LABORATORY | | | | [address];[place] | | | | | | [address] | | | | + + + + + + + + | Specimen | + + | | + + + + + + + | Performing | Address | City/State/Zipcode | Phone Number | | Organization | | | | + + + + + | [facility] | [address] | [place] [address] | [phone] | + + + + + POC Glucose (11/10/2019 5:23 AM PST) + + + + + + | Component | Value | Ref Range | Performed | Pathologist | | | | | At | Signature | + + + + + + | Glucose, | 189 (H)Comment: Testing | 65 - 99 mg/dL | [facility] | | | POC | performed at [facility];[address] | | LABORATORY | | | | [address];[place], [place] | | | | | | [address] | | | | + + + + + + + + | Specimen | + + | | + + + + + + + | Performing | Address | City/State/Zipcode | Phone Number | | Organization | | | | + + + + + | [facility] | [address] | [place] [address] | [phone] | + + + + + Renal Function Panel (11/10/2019 5:15 AM PST) + + + + + + | Component | Value | Ref Range | Performed | Pathologist | | | | | At | Signature | + + + + + + | Na | 135 | 135 - 145 | [facility] | | | | | mmol/L | LABORATORY | | + + + + + + | K | 3.7 | 3.5 - 4.9 | [facility] | | | | | mmol/L | LABORATORY | | + + + + + + | Cl | 100 | 99 - 109 mmol/L | [facility] | | | | | | LABORATORY | | + + + + + + | CO2 | 29 | 23 - 32 mmol/L | [facility] | | | | | | LABORATORY | | + + + + + + | Anion Gap | 10 | 5 - 20 mmol/L | [facility] | | | | | | LABORATORY | | + + + + + + | Glucose | 186 (H) | 65 - 99 mg/dL | [facility] | | | | | | LABORATORY | | + + + + + + | BUN | 11 | 8 - 25 mg/dL | [facility] | | | | | | LABORATORY | | + + + + + + | Creatinine | 1.3 | 0.70 - 1.30 | [facility] | | | | | mg/dL | LABORATORY | | + + + + + + | Calcium | 8.7 | 8.5 - 10.5 | [facility] | | | | | mg/dL | LABORATORY | | + + + + + + | Albumin | 2.3 (L) | 3.6 - 5.0 g/dL | [facility] | | | | | | LABORATORY | | + + + + + + | Phosphorus | 3.8 | 2.3 - 4.8 mg/dL | [facility] | | | | | | LABORATORY | | + + + + + + | Estimated | 58 (L)Comment: GFR <60: | >60 | [facility] | | | GFR | CHRONIC KIDNEY DISEASE, | mL/min/1.73m2 | LABORATORY | | | | IF FOUND OVER A 3 MONTH | | | | | | PERIOD.GFR <15: KIDNEY | | | | | | FAILURE.FOR | | | | | | AMERICANS, MULTIPLY THE | | | | | | CALCULATED GFR BY | | | | | | 1.210.This eGFR is | | | | | | calculated using the | | | | | | MDRD IDIA traceable | | | | | | equation.Testing | | | | | | performed at [facility], [address] | | | | | | [facility], | | | | | | [place] [address] | | | | + + + + + + + + | Specimen | + + | Blood | + + + + + + + | Performing | Address | City/State/Zipcode | Phone Number | | Organization | | | | + + + + + | [facility] | [address] | [place] [address] | [phone] | + + + + + POC Glucose (11/09/2019 8:49 PM PST) + + + + + + | Component | Value | Ref Range | Performed | Pathologist | | | | | At | Signature | + + + + + + | Glucose, | 197 (H)Comment: Testing | 65 - 99 mg/dL | [facility] | | | POC | performed at [facility];[address] | | LABORATORY | | | | [address];[place] | | | | | | [address] | | | | + + + + + + + + | Specimen | + + | | + + + + + + + | Performing | Address | City/State/Zipcode | Phone Number | | Organization | | | | + + + + + | [facility] | [address] | [place] [address] | [phone] | + + + + + POC Glucose (11/09/2019 4:32 PM PST) + + + + + + | Component | Value | Ref Range | Performed | Pathologist | | | | | At | Signature | + + + + + + | Glucose, | 238 (H)Comment: Testing | 65 - 99 mg/dL | [facility] | | | POC | performed at [facility];[address] | | LABORATORY | | | | [address];[place] | | | | | | [address] | | | | + + + + + + + + | Specimen | + + | | + + + + + + + | Performing | Address | City/State/Zipcode | Phone Number | | Organization | | | | + + + + + | [facility] | [address] | [place] [address] | [phone] | + + + + + POC Glucose (11/09/2019 11:37 AM PST) + + + + + + | Component | Value | Ref Range | Performed | Pathologist | | | | | At | Signature | + + + + + + | Glucose, | 244 (H)Comment: Testing | 65 - 99 mg/dL | [facility] | | | POC | performed at [facility];[address] | | LABORATORY | | | | [address];[place], [place] | | | | | | [address] | | | | + + + + + + + + | Specimen | + + | | + + + + + + + | Performing | Address | City/State/Zipcode | Phone Number | | Organization | | | | + + + + + | [facility] | [address] | [place] [address] | [phone] | + + + + + POC Glucose (11/09/2019 7:39 AM PST) + + + + + + | Component | Value | Ref Range | Performed | Pathologist | | | | | At | Signature | + + + + + + | Glucose, | 160 (H)Comment: Testing | 65 - 99 mg/dL | [facility] | | | POC | performed at [facility];[address] | | LABORATORY | | | | [address];[place] | | | | | | [address] | | | | + + + + + + + + | Specimen | + + | | + + + + + + + | Performing | Address | City/State/Zipcode | Phone Number | | Organization | | | | + + + + + | [facility] | [address] | [place] [address] | [phone] | + + + + + Renal Function Panel (11/09/2019 4:51 AM PST) + + + + + + | Component | Value | Ref Range | Performed | Pathologist | | | | | At | Signature | + + + + + + | Na | 135 | 135 - 145 | [facility] | | | | | mmol/L | LABORATORY | | + + + + + + | K | 3.4 (L) | 3.5 - 4.9 | [facility] | | | | | mmol/L | LABORATORY | | + + + + + + | Cl | 101 | 99 - 109 mmol/L | [facility] | | | | | | LABORATORY | | + + + + + + | CO2 | 30 | 23 - 32 mmol/L | [facility] | | | | | | LABORATORY | | + + + + + + | Anion Gap | 7 | 5 - 20 mmol/L | [facility] | | | | | | LABORATORY | | + + + + + + | Glucose | 223 (H) | 65 - 99 mg/dL | [facility] | | | | | | LABORATORY | | + + + + + + | BUN | 10 | 8 - 25 mg/dL | [facility] | | | | | | LABORATORY | | + + + + + + | Creatinine | 1.3 | 0.70 - 1.30 | [facility] | | | | | mg/dL | LABORATORY | | + + + + + + | Calcium | 8.2 (L) | 8.5 - 10.5 | [facility] | | | | | mg/dL | LABORATORY | | + + + + + + | Albumin | 2.2 (L) | 3.6 - 5.0 g/dL | [facility] | | | | | | LABORATORY | | + + + + + + | Phosphorus | 3.5 | 2.3 - 4.8 mg/dL | [facility] | | | | | | LABORATORY | | + + + + + + | Estimated | 58 (L)Comment: GFR <60: | >60 | [facility] | | | GFR | CHRONIC KIDNEY DISEASE, | mL/min/1.73m2 | LABORATORY | | | | IF FOUND OVER A 3 MONTH | | | | | | PERIOD.GFR <15: KIDNEY | | | | | | FAILURE.FOR | | | | | | AMERICANS, MULTIPLY THE | | | | | | CALCULATED GFR BY | | | | | | 1.210.This eGFR is | | | | | | calculated using the | | | | | | MDRD IDMS traceable | | | | | | equation.Testing | | | | | | performed at [facility], [address] | | | | | | [address], | | | | | | [place] [address] | | | | + + + + + + + + | Specimen | + + | Blood | + + + + + + + | Performing | Address | City/State/Zipcode | Phone Number | | Organization | | | | + + + + + | [facility] | [address] | [place] [address] | [phone] | + + + + + POC Glucose (11/08/2019 9:15 PM PST) + + + + + + | Component | Value | Ref Range | Performed | Pathologist | | | | | At | Signature | + + + + + + | Glucose, | 287 (H)Comment: Testing | 65 - 99 mg/dL | [facility] | | | POC | performed at [facility];[address] | | LABORATORY | | | | [address];[place], [place] | | | | | | [address] | | | | + + + + + + + + | Specimen | + + | | + + + + + + + | Performing | Address | City/State/Zipcode | Phone Number | | Organization | | | | + + + + + | [facility] | [address] | [place] [address] | [phone] | + + + + + POC Glucose (11/08/2019 4:06 PM PST) + + + + + + | Component | Value | Ref Range | Performed | Pathologist | | | | | At | Signature | + + + + + + | Glucose, | 223 (H)Comment: Testing | 65 - 99 mg/dL | [facility] | | | POC | performed at [facility];[address] | | LABORATORY | | | | [address];[place] | | | | | | [address] | | | | + + + + + + + + | Specimen | + + | | + + + + + + + | Performing | Address | City/State/Zipcode | Phone Number | | Organization | | | | + + + + + | [facility] | [address] | [place] [address] | [phone] | + + + + + POC Glucose (11/08/2019 11:32 AM PST) + + + + + + | Component | Value | Ref Range | Performed | Pathologist | | | | | At | Signature | + + + + + + | Glucose, | 257 (H)Comment: Testing | 65 - 99 mg/dL | [facility] | | | POC | performed at [facility];[address] | | LABORATORY | | | | [address];[place] | | | | | | [address] | | | | + + + + + + + + | Specimen | + + | | + + + + + + + | Performing | Address | City/State/Zipcode | Phone Number | | Organization | | | | + + + + + | [facility] | [address] | [place] [address] | [phone] | + + + + + POC Glucose (11/08/2019 8:05 AM PST) + + + + + + | Component | Value | Ref Range | Performed | Pathologist | | | | | At | Signature | + + + + + + | Glucose, | 136 (H)Comment: Testing | 65 - 99 mg/dL | [facility] | | | POC | performed at [facility];[address] | | LABORATORY | | | | [address];[place], [place] | | | | | | [address] | | | | + + + + + + + + | Specimen | + + | | + + + + + + + | Performing | Address | City/State/Zipcode | Phone Number | | Organization | | | | + + + + + | [facility] | [address] | [place] [address] | [phone] | + + + + + CBC with Differential (11/08/2019 5:23 AM PST) + + + + + + | Component | Value | Ref Range | Performed | Pathologist | | | | | At | Signature | + + + + + + | WBC | 8.32 | 3.80 - 11.00 | [facility] | | | | | K/uL | LABORATORY | | + + + + + + | RBC | 3.22 (L) | 4.20 - 5.70 | [facility] | | | | | M/uL | LABORATORY | | + + + + + + | Hemoglobin | 8.5 (L) | 13.2 - 17.0 | [facility] | | | | | g/dL | LABORATORY | | + + + + + + | Hematocrit | 25.2 (L) | 39.0 - 50.0 % | [facility] | | | | | | LABORATORY | | + + + + + + | MCV | 78.2 (L) | 80.0 - 100.0 fl | [facility] | | | | | | LABORATORY | | + + + + + + | MCH | 26.3 (L) | 27.0 - 34.0 pg | [facility] | | | | | | LABORATORY | | + + + + + + | MCHC | 33.7 | 32.0 - 35.5 | [facility] | | | | | g/dL | LABORATORY | | + + + + + + | RDW-SD | 42.0 | 37 - 53 fl | [facility] | | | | | | LABORATORY | | + + + + + + | Platelet | 411 (H) | 150 - 400 K/uL | [facility] | | | Count | | | LABORATORY | | + + + + + + | MPV | 6.8 | fl | [facility] | | | | | | LABORATORY | | + + + + + + | Diff Type | AUTOMATED | | [facility] | | | | | | LABORATORY | | + + + + + + | % | 78.80 | % | [facility] | | | Neutrophils | | | LABORATORY | | + + + + + + | % | 11.89 | % | [facility] | | | Lymphocytes | | | LABORATORY | | + + + + + + | Monocyte % | 5.32 | % | [facility] | | | | | | LABORATORY | | + + + + + + | Eosinophils | 2.94 | % | [facility] | | | % | | | LABORATORY | | + + + + + + | Basophils % | 1.05 | % | [facility] | | | | | | LABORATORY | | + + + + + + | Neutrophils | 6.56 | 1.90 - 7.40 | [facility] | | | , Absolute | | K/uL | LABORATORY | | + + + + + + | Absolute | 0.99 (L) | 1.00 - 3.90 | [facility] | | | Lymphocytes | | K/uL | LABORATORY | | + + + + + + | Absolute | 0.44 | 0.00 - 0.80 | [facility] | | | Monocytes | | K/uL | LABORATORY | | + + + + + + | Eosinophils | 0.25 | 0.00 - 0.50 | [facility] | | | , Absolute | | K/uL | LABORATORY | | + + + + + + | Basophils, | 0.09Comment: Testing | 0.00 - 0.10 | [facility] | | | Absolute | performed at [facility], [address] | [address] | LABORATORY | | | | [facility], | | | | | | [place] [address] | | | | + + + + + + + + | Specimen | + + | Blood | + + + + + + + | Performing | Address | City/State/Zipcode | Phone Number | | Organization | | | | + + + + + | [facility] | [address] | [place] [address] | [phone] | + + + + + POC Glucose (11/07/2019 9:14 PM PST) + + + + + + | Component | Value | Ref Range | Performed | Pathologist | | | | | At | Signature | + + + + + + | Glucose, | 221 (H)Comment: Testing | 65 - 99 mg/dL | [facility] | | | POC | performed at [facility];[address] | | LABORATORY | | | | [address];[place] | | | | | | [address] | | | | + + + + + + + + | Specimen | + + | | + + + + + + + | Performing | Address | City/State/Zipcode | Phone Number | | Organization | | | | + + + + + | [facility] | [address] | [place] [address] | [phone] | + + + + + POC Glucose (11/07/2019 4:15 PM PST) + + + + + + | Component | Value | Ref Range | Performed | Pathologist | | | | | At | Signature | + + + + + + | Glucose, | 135 (H)Comment: Testing | 65 - 99 mg/dL | [facility] | | | POC | performed at [facility];[address] | | LABORATORY | | | | [address];[place], [place] | | | | | | [address] | | | | + + + + + + + + | Specimen | + + | | + + + + + + + | Performing | Address | City/State/Zipcode | Phone Number | | Organization | | | | + + + + + | [facility] | [address] | [place] [address] | [phone] | + + + + + POC Glucose (11/07/2019 11:54 AM PST) + + + + + + | Component | Value | Ref Range | Performed | Pathologist | | | | | At | Signature | + + + + + + | Glucose, | 198 (H)Comment: Testing | 65 - 99 mg/dL | [facility] | | | POC | performed at [facility];[address] | | LABORATORY | | | | [address];[place], [place] | | | | | | [address] | | | | + + + + + + + + | Specimen | + + | | + + + + + + + | Performing | Address | City/State/Zipcode | Phone Number | | Organization | | | | + + + + + | [facility] | [address] | [place] [address] | [phone] | + + + + + POC Glucose (11/07/2019 7:47 AM PST) + + + + + + | Component | Value | Ref Range | Performed | Pathologist | | | | | At | Signature | + + + + + + | Glucose, | 181 (H)Comment: Testing | 65 - 99 mg/dL | [facility] | | | POC | performed at [facility];[address] | | LABORATORY | | | | [address];[place] | | | | | | [address] | | | | + + + + + + + + | Specimen | + + | | + + + + + + + | Performing | Address | City/State/Zipcode | Phone Number | | Organization | | | | + + + + + | [facility] | [address] | [place] [address] | [phone] | + + + + + CBC with Differential (11/07/2019 6:05 AM PST) + + + + + + | Component | Value | Ref Range | Performed | Pathologist | | | | | At | Signature | + + + + + + | WBC | 8.25 | 3.80 - 11.00 | [facility] | | | | | K/uL | LABORATORY | | + + + + + + | RBC | 3.02 (L) | 4.20 - 5.70 | [facility] | | | | | M/uL | LABORATORY | | + + + + + + | Hemoglobin | 7.8 (L) | 13.2 - 17.0 | [facility] | | | | | g/dL | LABORATORY | | + + + + + + | Hematocrit | 23.7 (L) | 39.0 - 50.0 % | [facility] | | | | | | LABORATORY | | + + + + + + | MCV | 78.5 (L) | 80.0 - 100.0 fl | [facility] | | | | | | LABORATORY | | + + + + + + | MCH | 25.9 (L) | 27.0 - 34.0 pg | [facility] | | | | | | LABORATORY | | + + + + + + | MCHC | 33.0 | 32.0 - 35.5 | [facility] | | | | | g/dL | LABORATORY | | + + + + + + | RDW-SD | 41.1 | 37 - 53 fl | [facility] | | | | | | LABORATORY | | + + + + + + | Platelet | 355 | 150 - 400 K/uL | [facility] | | | Count | | | LABORATORY | | + + + + + + | MPV | 6.6 | fl | [facility] | | | | | | LABORATORY | | + + + + + + | Diff Type | AUTOMATED | | [facility] | | | | | | LABORATORY | | + + + + + + | % | 79.49 | % | [facility] | | | Neutrophils | | | LABORATORY | | + + + + + + | % | 11.53 | % | [facility] | | | Lymphocytes | | | LABORATORY | | + + + + + + | Monocyte % | 5.59 | % | [facility] | | | | | | LABORATORY | | + + + + + + | Eosinophils | 2.65 | % | [facility] | | | % | | | LABORATORY | | + + + + + + | Basophils % | 0.74 | % | [facility] | | | | | | LABORATORY | | + + + + + + | Neutrophils | 6.56 | 1.90 - 7.40 | [facility] | | | , Absolute | | K/uL | LABORATORY | | + + + + + + | Absolute | 0.95 (L) | 1.00 - 3.90 | [facility] | | | Lymphocytes | | K/uL | LABORATORY | | + + + + + + | Absolute | 0.46 | 0.00 - 0.80 | [facility] | | | Monocytes | | K/uL | LABORATORY | | + + + + + + | Eosinophils | 0.22 | 0.00 - 0.50 | [facility] | | | , Absolute | | K/uL | LABORATORY | | + + + + + + | Basophils, | 0.06Comment: Testing | 0.00 - 0.10 | [facility] | | | Absolute | performed at [facility], [address] | K/uL | LABORATORY | | | | [address], | | | | | | [place] [address] | | | | + + + + + + + + | Specimen | + + | Blood | + + + + + + + | Performing | Address | City/State/Zipcode | Phone Number | | Organization | | | | + + + + + | [facility] | [address] | [place] [address] | [phone] | + + + + + Potassium (11/07/2019 6:05 AM PST) + + + + + + | Component | Value | Ref Range | Performed | Pathologist | | | | | At | Signature | + + + + + + | K | 3.5Comment: Testing | 3.5 - 4.9 | [facility] | | | | performed at [facility];[address] | mmol/L | LABORATORY | | | | [address];[place] | | | | | | [address] | | | | + + + + + + + + | Specimen | + + | Blood | + + + + + + + | Performing | Address | City/State/Zipcode | Phone Number | | Organization | | | | + + + + + | [facility] | [address] | [place] [address] | [phone] | + + + + + Vancomycin, Trough (11/07/2019 6:05 AM PST) + + + + + + | Component | Value | Ref Range | Performed | Pathologist | | | | | At | Signature | + + + + + + | Vancomycin, | 15.5Comment: 15 to 20 | 10 - 20 ug/mL | [facility] | | | Trough | ug/mL for meningitis, | | LABORATORY | | | | osteomyelitis, | | | | | | endocarditis, sepsis, | | | | | | orhealthcare associated | | | | | | pneumonia, or an CATHERINE | | | | | | equal to or greater than | | | | | | 1.0 ug/mLTesting | | | | | | performed at [facility];[address] | | | | | | [address];[place] | | | | | | [address] | | | | + + + + + + + + | Specimen | + + | Blood | + + + + + + + | Performing | Address | City/State/Zipcode | Phone Number | | Organization | | | | + + + + + | [facility] | [address] | [place] [address] | [phone] | + + + + + POC Glucose (11/06/2019 9:10 PM PST) + + + + + + | Component | Value | Ref Range | Performed | Pathologist | | | | | At | Signature | + + + + + + | Glucose, | 210 (H)Comment: Testing | 65 - 99 mg/dL | [facility] | | | POC | performed at [facility];[address] | | LABORATORY | | | | [address];[place] | | | | | | [address] | | | | + + + + + + + + | Specimen | + + | | + + + + + + + | Performing | Address | City/State/Zipcode | Phone Number | | Organization | | | | + + + + + | [facility] | [address] | [place] [address] | [phone] | + + + + + POC Glucose (11/06/2019 2:54 PM PST) + + + + + + | Component | Value | Ref Range | Performed | Pathologist | | | | | At | Signature | + + + + + + | Glucose, | 249 (H)Comment: Testing | 65 - 99 mg/dL | [facility] | | | POC | performed at [facility];[address] | | LABORATORY | | | | [address];[place], [place] | | | | | | [address] | | | | + + + + + + + + | Specimen | + + | | + + + + + + + | Performing | Address | City/State/Zipcode | Phone Number | | Organization | | | | + + + + + | [facility] | [address] | [place] [address] | [phone] | + + + + + Potassium (11/06/2019 1:08 PM PST) + + + + + + | Component | Value | Ref Range | Performed | Pathologist | | | | | At | Signature | + + + + + + | K | 3.4 (L)Comment: Testing | 3.5 - 4.9 | [facility] | | | | performed at [facility];[address] | mmol/L | LABORATORY | | | | [address];[place] | | | | | | [address] | | | | + + + + + + + + | Specimen | + + | Blood | + + + + + + + | Performing | Address | City/State/Zipcode | Phone Number | | Organization | | | | + + + + + | [facility] | [address] | [place] [address] | [phone] | + + + + + POC Glucose (11/06/2019 11:41 AM PST) + + + + + + | Component | Value | Ref Range | Performed | Pathologist | | | | | At | Signature | + + + + + + | Glucose, | 225 (H)Comment: Testing | 65 - 99 mg/dL | [facility] | | | POC | performed at [facility];[address] | | LABORATORY | | | | [address];[place], [place] | | | | | | [address] | | | | + + + + + + + + | Specimen | + + | | + + + + + + + | Performing | Address | City/State/Zipcode | Phone Number | | Organization | | | | + + + + + | [facility] | [address] | [place] [address] | [phone] | + + + + + POC Glucose (11/06/2019 7:50 AM PST) + + + + + + | Component | Value | Ref Range | Performed | Pathologist | | | | | At | Signature | + + + + + + | Glucose, | 137 (H)Comment: Testing | 65 - 99 mg/dL | [facility] | | | POC | [facility] [facility];[address] | | LABORATORY | | | | [address];[place], [place] | | | | | | [address] | | | | + + + + + + + + | Specimen | + + | | + + + + + + + | Performing | Address | City/State/Zipcode | Phone Number | | Organization | | | | + + + + + | [facility] | [address] | [place] [address] | [phone] | + + + + + Basic Metabolic Panel (11/06/2019 4:58 AM PST) + + + + + + | Component | Value | Ref Range | Performed | Pathologist | | | | | At | Signature | + + + + + + | Na | 141 | 135 - 145 | [facility] | | | | | mmol/L | LABORATORY | | + + + + + + | K | 3.2 (L) | 3.5 - 4.9 | [facility] | | | | | mmol/L | LABORATORY | | + + + + + + | Cl | 107 | 99 - 109 mmol/L | [facility] | | | | | | LABORATORY | | + + + + + + | CO2 | 29 | 23 - 32 mmol/L | [facility] | | | | | | LABORATORY | | + + + + + + | Anion Gap | 8 | 5 - 20 mmol/L | [facility] | | | | | | LABORATORY | | + + + + + + | Glucose | 131 (H) | 65 - 99 mg/dL | [facility] | | | | | | LABORATORY | | + + + + + + | BUN | 8 | 8 - 25 mg/dL | [facility] | | | | | | LABORATORY | | + + + + + + | Creatinine | 1.1 | 0.70 - 1.30 | [facility] | | | | | mg/dL | LABORATORY | | + + + + + + | BUN/Creatin | 7 | | [facility] | | | ine Ratio | | | LABORATORY | | + + + + + + | Calcium | 8.0 (L) | 8.5 - 10.5 | [facility] | | | | | mg/dL | LABORATORY | | + + + + + + | Estimated | >60Comment: GFR <60: | >60 | [facility] | | | GFR | CHRONIC KIDNEY DISEASE, | mL/min/1.73m2 | LABORATORY | | | | IF FOUND OVER A 3 MONTH | | | | | | PERIOD.GFR <15: KIDNEY | | | | | | FAILURE.FOR | | | | | | AMERICANS, MULTIPLY THE | | | | | | CALCULATED GFR BY | | | | | | 1.210.This eGFR is | | | | | | calculated using the | | | | | | MDRD IDIA traceable | | | | | | equation.Testing | | | | | | performed at [facility], [address] | | | | | [facility], | | | | | | [place] [address] | | | | + + + + + + + + | Specimen | + + | Blood | + + + + + + + | Performing | Address | City/State/Zipcode | Phone Number | | Organization | | | | + + + + + | [facility] | [address] | [place] [address] | [phone] | + + + + + CBC with Differential (11/06/2019 4:58 AM PST) + + + + + + | Component | Value | Ref Range | Performed | Pathologist | | | | | At | Signature | + + + + + + | WBC | 7.14 | 3.80 - 11.00 | [facility] | | | | | K/uL | LABORATORY | | + + + + + + | RBC | 3.09 (L) | 4.20 - 5.70 | [facility] | | | | | M/uL | LABORATORY | | + + + + + + | Hemoglobin | 8.2 (L) | 13.2 - 17.0 | [facility] | | | | | g/dL | LABORATORY | | + + + + + + | Hematocrit | 24.1 (L) | 39.0 - 50.0 % | [facility] | | | | | | LABORATORY | | + + + + + + | MCV | 78.2 (L) | 80.0 - 100.0 fl | [facility] | | | | | | LABORATORY | | + + + + + + | MCH | 26.5 (L) | 27.0 - 34.0 pg | [facility] | | | | | | LABORATORY | | + + + + + + | MCHC | 33.9 | 32.0 - 35.5 | [facility] | | | | | g/dL | LABORATORY | | + + + + + + | RDW-SD | 39.8 | 37 - 53 fl | [facility] | | | | | | LABORATORY | | + + + + + + | Platelet | 315 | 150 - 400 K/uL | [facility] | | | Count | | | LABORATORY | | + + + + + + | MPV | 7.0 | fl | [facility] | | | | | | LABORATORY | | + + + + + + | Diff Type | AUTOMATED | | [facility] | | | | | | LABORATORY | | + + + + + + | % | 74.76 | % | [facility] | | | Neutrophils | | | LABORATORY | | + + + + + + | % | 15.26 | % | [facility] | | | Lymphocytes | | | LABORATORY | | + + + + + + | Monocyte % | 6.60 | % | [facility] | | | | | | LABORATORY | | + + + + + + | Eosinophils | 2.36 | % | [facility] | | | % | | | LABORATORY | | + + + + + + | Basophils % | 1.02 | % | [facility] | | | | | | LABORATORY | | + + + + + + | Neutrophils | 5.34 | 1.90 - 7.40 | [facility] | | | , Absolute | | K/uL | LABORATORY | | + + + + + + | Absolute | 1.09 | 1.00 - 3.90 | [facility] | | | Lymphocytes | | K/uL | LABORATORY | | + + + + + + | Absolute | 0.47 | 0.00 - 0.80 | [facility] | | | Monocytes | | K/uL | LABORATORY | | + + + + + + | Eosinophils | 0.17 | 0.00 - 0.50 | [facility] | | | , Absolute | | K/uL | LABORATORY | | + + + + + + | Basophils, | 0.07Comment: Testing | 0.00 - 0.10 | [facility] | | | Absolute | performed at [facility], [address] | K/uL | LABORATORY | | | | [address], | | | | | | [place] [address] | | | | + + + + + + + + | Specimen | + + | Blood | + + + + + + + | Performing | Address | City/State/Zipcode | Phone Number | | Organization | | | | + + + + + | [facility] | [address] | [place] [address] | [phone] | + + + + + POC Glucose (11/05/2019 8:59 PM PST) + + + + + + | Component | Value | Ref Range | Performed | Pathologist | | | | | At | Signature | + + + + + + | Glucose, | 128 (H)Comment: Testing | 65 - 99 mg/dL | [facility] | | | POC | performed at [facility];[address] | | LABORATORY | | | | [address];[place] | | | | | | [address] | | | | + + + + + + + + | Specimen | + + | | + + + + + + + | Performing | Address | City/State/Zipcode | Phone Number | | Organization | | | | + + + + + | [facility] | [address] | [place] [address] | [phone] | + + + + + POC Glucose (11/05/2019 4:45 PM PST) + + + + + + | Component | Value | Ref Range | Performed | Pathologist | | | | | At | Signature | + + + + + + | Glucose, | 147 (H)Comment: Testing | 65 - 99 mg/dL | [facility] | | | POC | performed at [facility];[address] | | LABORATORY | | | | [address];[place] | | | | | | [address] | | | | + + + + + + + + | Specimen | + + | | + + + + + + + | Performing | Address | City/State/Zipcode | Phone Number | | Organization | | | | + + + + + | [facility] | [address] | [place] [address] | [phone] | + + + + + POC Glucose (11/05/2019 11:32 AM PST) + + + + + + | Component | Value | Ref Range | Performed | Pathologist | | | | | At | Signature | + + + + + + | Glucose, | 87Comment: Testing | 65 - 99 mg/dL | [facility] | | | POC | performed at [facility];[address] | | LABORATORY | | | | [address];[place], [place] | | | | | | [address] | | | | + + + + + + + + | Specimen | + + | | + + + + + + + | Performing | Address | City/State/Zipcode | Phone Number | | Organization | | | | + + + + + | [facility] | [address] | [place] [address] | [phone] | + + + + + POC Glucose (11/05/2019 8:45 AM PST) + + + + + + | Component | Value | Ref Range | Performed | Pathologist | | | | | At | Signature | + + + + + + | Glucose, | 93Comment: Testing | 65 - 99 mg/dL | [facility] | | | POC | performed at [facility];[address] | | LABORATORY | | | | [address];[place] | | | | | | [address] | | | | + + + + + + + + | Specimen | + + | | + + + + + + + | Performing | Address | City/State/Zipcode | Phone Number | | Organization | | | | + + + + + | [facility] | [address] | [place] [address] | [phone] | + + + + + CBC with Differential (11/05/2019 5:32 AM PST) + + + + + + | Component | Value | Ref Range | Performed | Pathologist | | | | | At | Signature | + + + + + + | WBC | 7.90 | 3.80 - 11.00 | [facility] | | | | | K/uL | LABORATORY | | + + + + + + | RBC | 3.04 (L) | 4.20 - 5.70 | [facility] | | | | | M/uL | LABORATORY | | + + + + + + | Hemoglobin | 8.1 (L) | 13.2 - 17.0 | [facility] | | | | | g/dL | LABORATORY | | + + + + + + | Hematocrit | 23.5 (L) | 39.0 - 50.0 % | [facility] | | | | | | LABORATORY | | + + + + + + | MCV | 77.1 (L) | 80.0 - 100.0 fl | [facility] | | | | | | LABORATORY | | + + + + + + | MCH | 26.5 (L) | 27.0 - 34.0 pg | [facility] | | | | | | LABORATORY | | + + + + + + | MCHC | 34.4 | 32.0 - 35.5 | [facility] | | | | | g/dL | LABORATORY | | + + + + + + | RDW-SD | 40.3 | 37 - 53 fl | [facility] | | | | | | LABORATORY | | + + + + + + | Platelet | 274 | 150 - 400 K/uL | [facility] | | | Count | | | LABORATORY | | + + + + + + | MPV | 7.3 | fl | [facility] | | | | | | LABORATORY | | + + + + + + | Diff Type | AUTOMATED | | [facility] | | | | | | LABORATORY | | + + + + + + | % | 76.02 | % | [facility] | | | Neutrophils | | | LABORATORY | | + + + + + + | % | 12.75 | % | [facility] | | | Lymphocytes | | | LABORATORY | | + + + + + + | Monocyte % | 7.56 | % | [facility] | | | | | | LABORATORY | | + + + + + + | Eosinophils | 2.60 | % | [facility] | | | % | | | LABORATORY | | + + + + + + | Basophils % | 1.07 | % | [facility] | | | | | | LABORATORY | | + + + + + + | Neutrophils | 6.00 | 1.90 - 7.40 | [facility] | | | , Absolute | | K/uL | LABORATORY | | + + + + + + | Absolute | 1.01 | 1.00 - 3.90 | [facility] | | | Lymphocytes | | K/uL | LABORATORY | | + + + + + + | Absolute | 0.60 | 0.00 - 0.80 | [facility] | | | Monocytes | | K/uL | LABORATORY | | + + + + + + | Eosinophils | 0.21 | 0.00 - 0.50 | [facility] | | | , Absolute | | K/uL | LABORATORY | | + + + + + + | Basophils, | 0.08Comment: Testing | 0.00 - 0.10 | [facility] | | | Absolute | performed at [facility], [address] | K/uL | LABORATORY | | | | [address], | | | | | | [place] [address] | | | | + + + + + + + + | Specimen | + + | | + + + + + + + | Performing | Address | City/State/Zipcode | Phone Number | | Organization | | | | + + + + + | [facility] | [address] | [place] [address] | [phone] | + + + + + Basic Metabolic Panel (11/05/2019 5:32 AM PST) + + + + + + | Component | Value | Ref Range | Performed | Pathologist | | | | | At | Signature | + + + + + + | Na | 138 | 135 - 145 | [facility] | | | | | mmol/L | LABORATORY | | + + + + + + | K | 3.2 (L) | 3.5 - 4.9 | [facility] | | | | | mmol/L | LABORATORY | | + + + + + + | Cl | 101 | 99 - 109 mmol/L | [facility] | | | | | | LABORATORY | | + + + + + + | CO2 | 26 | 23 - 32 mmol/L | [facility] | | | | | | LABORATORY | | + + + + + + | Anion Gap | 14 | 5 - 20 mmol/L | [facility] | | | | | | LABORATORY | | + + + + + + | Glucose | 102 (H) | 65 - 99 mg/dL | [facility] | | | | | | LABORATORY | | + + + + + + | BUN | 8 | 8 - 25 mg/dL | [facility] | | | | | | LABORATORY | | + + + + + + | Creatinine | 0.99 | 0.70 - 1.30 | [facility] | | | | | mg/dL | LABORATORY | | + + + + + + | BUN/Creatin | 8 | | [facility] | | | ine Ratio | | | LABORATORY | | + + + + + + | Calcium | 8.2 (L) | 8.5 - 10.5 | [facility] | | | | | mg/dL | LABORATORY | | + + + + + + | Estimated | >60Comment: GFR <60: | >60 | [facility] | | | GFR | CHRONIC KIDNEY DISEASE, | mL/min/1.73m2 | LABORATORY | | | | IF FOUND OVER A 3 MONTH | | | | | | PERIOD.GFR <15: KIDNEY | | | | | | FAILURE.FOR | | | | | | AMERICANS, MULTIPLY THE | | | | | | CALCULATED GFR BY | | | | | | 1.210.This eGFR is | | | | | | calculated using the | | | | | | MDRD IDIA traceable | | | | | | equation.Testing | | | | | | performed at [facility] | | | | | | [facility];[place], [place] | | | | | | [address] | | | | + + + + + + + + | Specimen | + + | | + + + + + + + | Performing | Address | City/State/Zipcode | Phone Number | | Organization | | | | + + + + + | [facility] | [address] | [place] [address] | [phone] | + + + + + Vancomycin, Trough (11/05/2019 5:32 AM PST) + + + + + + | Component | Value | Ref Range | Performed | Pathologist | | | | | At | Signature | + + + + + + | Vancomycin, | 15.2Comment: 15 to 20 | 10 - 20 ug/mL | [facility] | | | Trough | ug/mL for meningitis, | | LABORATORY | | | | osteomyelitis, | | | | | | endocarditis, sepsis, | | | | | | orhealthcare associated | | | | | | pneumonia, or an CATHERINE | | | | | | equal to or greater than | | | | | | 1.0 ug/mLTesting | | | | | | performed at [facility];[address] | | | | | | [address];[place], [place] | | | | | | [address] | | | | + + + + + + + + | Specimen | + + | Blood | + + + + + + + | Performing | Address | City/State/Zipcode | Phone Number | | Organization | | | | + + + + + | [facility] | [address] | [place] [address] | [phone] | + + + + + POC Glucose (11/04/2019 8:54 PM PST) + + + + + + | Component | Value | Ref Range | Performed | Pathologist | | | | | At | Signature | + + + + + + | Glucose, | 180 (H)Comment: Testing | 65 - 99 mg/dL | [facility] | | | POC | performed at [facility];[address] | | LABORATORY | | | | [address];[place], [place] | | | | | | [address] | | | | + + + + + + + + | Specimen | + + | | + + + + + + + | Performing | Address | City/State/Zipcode | Phone Number | | Organization | | | | + + + + + | [facility] | [address] | [place] [address] | [phone] | + + + + + POC Glucose (11/04/2019 4:26 PM PST) + + + + + + | Component | Value | Ref Range | Performed | Pathologist | | | | | At | Signature | + + + + + + | Glucose, | 168 (H)Comment: Testing | 65 - 99 mg/dL | [facility] | | | POC | performed at [facility];[address] | | LABORATORY | | | | [address];[place] | | | | | | [address] | | | | + + + + + + + + | Specimen | + + | | + + + + + + + | Performing | Address | City/State/Zipcode | Phone Number | | Organization | | | | + + + + + | [facility] | [address] | [place] [address] | [phone] | + + + + + POC Glucose (11/04/2019 11:49 AM PST) + + + + + + | Component | Value | Ref Range | Performed | Pathologist | | | | | At | Signature | + + + + + + | Glucose, | 190 (H)Comment: Testing | 65 - 99 mg/dL | [facility] | | | POC | performed at [facility];[address] | | LABORATORY | | | | [address];[place] | | | | | | [address] | | | | + + + + + + + + | Specimen | + + | | + + + + + + + | Performing | Address | City/State/Zipcode | Phone Number | | Organization | | | | + + + + + | [facility] | [address] | [place] [address] | [phone] | + + + + + POC Glucose (11/04/2019 7:46 AM PST) + + + + + + | Component | Value | Ref Range | Performed | Pathologist | | | | | At | Signature | + + + + + + | Glucose, | 157 (H)Comment: Testing | 65 - 99 mg/dL | [facility] | | | POC | performed at [facility];[address] | | LABORATORY | | | | [address];[place] | | | | | | [address] | | | | + + + + + + + + | Specimen | + + | | + + + + + + + | Performing | Address | City/State/Zipcode | Phone Number | | Organization | | | | + + + + + | [facility] | [address] | [place] [address] | [phone] | + + + + + CK Total (11/04/2019 6:10 AM PST) + + + + + + | Component | Value | Ref Range | Performed | Pathologist | | | | | At | Signature | + + + + + + | CK TOTAL | 94Comment: Testing | 55 - 400 U/L | [facility] | | | | performed at [facility];[address] | | LABORATORY | | | | [address];[place] | | | | | | [address] | | | | + + + + + + + + | Specimen | + + | | + + + + + + + | Performing | Address | City/State/Zipcode | Phone Number | | Organization | | | | + + + + + | [facility] | [address] | [place] [address] | [phone] | + + + + + CBC with Differential (11/04/2019 6:10 AM PST) + + + + + + | Component | Value | Ref Range | Performed | Pathologist | | | | | At | Signature | + + + + + + | WBC | 9.56 | 3.80 - 11.00 | [facility] | | | | | K/uL | LABORATORY | | + + + + + + | RBC | 3.17 (L) | 4.20 - 5.70 | [facility] | | | | | M/uL | LABORATORY | | + + + + + + | Hemoglobin | 8.3 (L) | 13.2 - 17.0 | [facility] | | | | | g/dL | LABORATORY | | + + + + + + | Hematocrit | 24.4 (L) | 39.0 - 50.0 % | [facility] | | | | | | LABORATORY | | + + + + + + | MCV | 76.9 (L) | 80.0 - 100.0 fl | [facility] | | | | | | LABORATORY | | + + + + + + | MCH | 26.3 (L) | 27.0 - 34.0 pg | [facility] | | | | | | LABORATORY | | + + + + + + | MCHC | 34.2 | 32.0 - 35.5 | [facility] | | | | | g/dL | LABORATORY | | + + + + + + | RDW-SD | 40.7 | 37 - 53 fl | [facility] | | | | | | LABORATORY | | + + + + + + | Platelet | 273 | 150 - 400 K/uL | [facility] | | | Count | | | LABORATORY | | + + + + + + | MPV | 7.3 | fl | [facility] | | | | | | LABORATORY | | + + + + + + | Diff Type | AUTOMATED | | [facility] | | | | | | LABORATORY | | + + + + + + | % | 83.05 | % | [facility] | | | Neutrophils | | | LABORATORY | | + + + + + + | % | 7.76 | % | [facility] | | | Lymphocytes | | | LABORATORY | | + + + + + + | Monocyte % | 7.24 | % | [facility] | | | | | | LABORATORY | | + + + + + + | Eosinophils | 1.14 | % | [facility] | | | % | | | LABORATORY | | + + + + + + | Basophils % | 0.81 | % | [facility] | | | | | | LABORATORY | | + + + + + + | Neutrophils | 7.94 (H) | 1.90 - 7.40 | [facility] | | | , Absolute | | K/uL | LABORATORY | | + + + + + + | Absolute | 0.74 (L) | 1.00 - 3.90 | [facility] | | | Lymphocytes | | K/uL | LABORATORY | | + + + + + + | Absolute | 0.69 | 0.00 - 0.80 | [facility] | | | Monocytes | | K/uL | LABORATORY | | + + + + + + | Eosinophils | 0.11 | 0.00 - 0.50 | [facility] | | | , Absolute | | K/uL | LABORATORY | | + + + + + + | Basophils, | 0.08Comment: Testing | 0.00 - 0.10 | [facility] | | | Absolute | performed at [facility];[address] | K/uL | LABORATORY | | | | [address];[place], [place] | | | | | | [address] | | | | + + + + + + + + | Specimen | + + | Blood | + + + + + + + | Performing | Address | City/State/Zipcode | Phone Number | | Organization | | | | + + + + + | [facility] | [address] | [place] [address] | [phone] | + + + + + Potassium (11/04/2019 6:10 AM PST) + + + + + + | Component | Value | Ref Range | Performed | Pathologist | | | | | At | Signature | + + + + + + | K | 3.2 (L)Comment: Testing | 3.5 - 4.9 | [facility] | | | | performed at [facility];[address] | mmol/L | LABORATORY | | | | [address];[place] | | | | | | [address] | | | | + + + + + + + + | Specimen | + + | Blood | + + + + + + + | Performing | Address | City/State/Zipcode | Phone Number | | Organization | | | | + + + + + | [facility] | [address] | [place] [address] | [phone] | + + + + + Sedimentation Rate (11/04/2019 6:10 AM PST) + + + + + + | Component | Value | Ref Range | Performed | Pathologist | | | | | At | Signature | + + + + + + | ESR | 116 (H)Comment: Testing | 0 - 20 mm/Hr | [facility] | | | | performed at [facility];[address] | | LABORATORY | | | | [address];[place] | | | | | | [address] | | | | + + + + + + + + | Specimen | + + | Blood | + + + + + + + | Performing | Address | City/State/Zipcode | Phone Number | | Organization | | | | + + + + + | [facility] | [address] | [place] [address] | [phone] | + + + + + C-Reactive Protein (11/04/2019 6:10 AM PST) + + + + + + | Component | Value | Ref Range | Performed | Pathologist | | | | | At | Signature | + + + + + + | CRP | 12.9 (H)Comment: Testing | <0.5 mg/dL | [facility] | | | | performed at [facility];[address] | | LABORATORY | | | | [address];[place] | | | | | | [address] | | | | + + + + + + + + | Specimen | + + | Blood | + + + + + + + | Performing | Address | City/State/Zipcode | Phone Number | | Organization | | | | + + + + + | [facility] | [address] | [place] [address] | [phone] | + + + + + POC Glucose (11/03/2019 8:36 PM PST) + + + + + + | Component | Value | Ref Range | Performed | Pathologist | | | | | At | Signature | + + + + + + | Glucose, | 193 (H)Comment: Testing | 65 - 99 mg/dL | [facility] | | | POC | performed at [facility];[address] | | LABORATORY | | | | [address];[place], [place] | | | | | | [address] | | | | + + + + + + + + | Specimen | + + | | + + + + + + + | Performing | Address | City/State/Zipcode | Phone Number | | Organization | | | | + + + + + | [facility] | [address] | [place] [address] | [phone] | + + + + + Vancomycin, Trough (11/03/2019 5:19 PM PST) + + + + + + | Component | Value | Ref Range | Performed | Pathologist | | | | | At | Signature | + + + + + + | Vancomycin, | 16.4Comment: 15 to 20 | 10 - 20 ug/mL | [facility] | | | Trough | ug/mL for meningitis, | | LABORATORY | | | | osteomyelitis, | | | | | | endocarditis, sepsis, | | | | | | orhealthcare associated | | | | | | pneumonia, or an CATHERINE | | | | | | equal to or greater than | | | | | | 1.0 ug/mLTesting | | | | | | performed at [facility];[address] | | | [address];[place] | | | | | | [address] | | | | + + + + + + + + | Specimen | + + | Blood | + + + + + + + | Performing | Address | City/State/Zipcode | Phone Number | | Organization | | | | + + + + + | [facility] | [address] | [place] [address] | [phone] | + + + + + Potassium (11/03/2019 3:11 PM PST) + + + + + + | Component | Value | Ref Range | Performed | Pathologist | | | | | At | Signature | + + + + + + | K | 3.6Comment: Testing | 3.5 - 4.9 | [facility] | | | | performed at [facility];[address] | mmol/L | LABORATORY | | | | [address];[place], [place] | | | | | | [address] | | | | + + + + + + + + | Specimen | + + | Blood | + + + + + + + | Performing | Address | City/State/Zipcode | Phone Number | | Organization | | | | + + + + + | [facility] | [address] | [place] [address] | [phone] | + + + + + POC Glucose (11/03/2019 11:23 AM PST) + + + + + + | Component | Value | Ref Range | Performed | Pathologist | | | | | At | Signature | + + + + + + | Glucose, | 230 (H)Comment: Testing | 65 - 99 mg/dL | [facility] | | | POC | performed at [facility];[address] | | LABORATORY | | | | [address];[place], [place] | | | | | | [address] | | | | + + + + + + + + | Specimen | + + | | + + + + + + + | Performing | Address | City/State/Zipcode | Phone Number | | Organization | | | | + + + + + | [facility] | [address] | [place] [address] | [phone] | + + + + + ECHO Complete (11/03/2019 8:48 AM PST) + +--------+ + + + | Component | Value | Ref Range | Performed | Pathologist | | | | | At | Signature | + +--------+ + + + | LVEF-TTE | 65 | % | [facility] | | | TRANSTHORAC | | | | | | IC ECHO | | | | | + +--------+ + + + | Inferior | 1.32 | cm | [facility] | | | Vena Cava | | | | | | Diameter at | | | | | | Expiration | | | | | + +--------+ + + + | RA PRESSURE | 3 | mmHg | [facility] | | + +--------+ + + + | LVIDd | 4.99 | cm | [facility] | | + +--------+ + + + | FS | 41 | % | [facility] | | + +--------+ + + + | LA volume | 70.74 | mL | [facility] | | + +--------+ + + + | Ascending | 4.27 | cm | [facility] | | | aorta | | | | | + +--------+ + + + | AV mean | 4.15 | mmHg | [facility] | | | gradient | | | | | + +--------+ + + + | Aortic | 3.72 | cm2 | [facility] | | | Valve Area | | | | | | by | | | | | | Continuity | | | | | | VTI | | | | | + +--------+ + + + | PV peak | 1.67 | mmHg | [facility] | | | gradient | | | | | + +--------+ + + + | LVOT | 2.37 | cm | [facility] | | | diameter | | | | | + +--------+ + + + | LVOT peak | 113.61 | cm/s | [facility] | | | joana | | | | | + +--------+ + + + | LVOT peak | 24.32 | cm | [facility] | | | VTI | | | | | + +--------+ + + + | AV peak joana | 131.52 | cm/s | [facility] | | + +--------+ + + + | AV VTI | 28.86 | cm | [facility] | | + +--------+ + + + | AV peak | 6.92 | mmHg | [facility] | | | gradient | | | | | + +--------+ + + + | PV mean | 0.93 | mmHg | [facility] | | | gradient | | | | | + +--------+ + + + | LA Volume | 37 | mL/m2 | [facility] | | | Index | | | | | + +--------+ + + + | AV LVOT | 5.16 | mmHg | [facility] | | | Peak | | | | | | Gradient | | | | | + +--------+ + + + | AV LVOT | 2.76 | mmHg | [facility] | | | Mean | | | | | | Gradient | | | | | + +--------+ + + + | TR Peak | 25 | mmHg | [facility] | | | Gradient | | | | | + +--------+ + + + | TR Velocity | 248 | cm | [facility] | | + +--------+ + + + | PI Peak | 64.69 | cm/s | [facility] | | | Velocity | | | | | + +--------+ + + + | LV | 8.14 | cm | [facility] | | | Diastolic | | | | | | Length 4C | | | | | + +--------+ + + + | RV | 3.95 | cm | [facility] | | | Diastolic | | | | | | Basal | | | | | | Diameter | | | | | + +--------+ + + + | LV | 65 | % | [facility] | | | Garcia's | | | | | | Biplane EF | | | | | + +--------+ + + + | LV ED | 99.19 | ml | [facility] | | | Volume | | | | | | (Garcia's) | | | | | + +--------+ + + + | LV ED | 52 | ml/m2 | [facility] | | | Volume | | | | | | Index | | | | | + +--------+ + + + | LV ES | 34.54 | ml | [facility] | | | Volume | | | | | + +--------+ + + + | LVOT Mean | 79.63 | cm/s | [facility] | | | Velocity | | | | | + +--------+ + + + | RVSP | 28 | mmHg | [facility] | | | Estimated | | | | | + +--------+ + + + | MV | 221.89 | msec | [facility] | | | Deceleratio | | | | | | n Time | | | | | + +--------+ + + + | MV E/A | 1.12 | | [facility] | | | Ratio | | | | | + +--------+ + + + | MV Peak | 81.46 | cm/s | [facility] | | | A-Wave | | | | | + +--------+ + + + | MV Peak | 91.49 | cm/s | [facility] | | | E-Wave | | | | | + +--------+ + + + | PV Mean | 46.4 | cm/s | [facility] | | | Velocity | | | | | + +--------+ + + + | AV Mean | 98.16 | cm/s | [facility] | | | Velocity | | | | | + +--------+ + + + | LA Area | 20.63 | cm2 | [facility] | | + +--------+ + + + | LA Major | 0.2886 | cm | [facility] | | + +--------+ + + + | LV ES | 18 | ml/m2 | [facility] | | | Volume | | | | | | Index | | | | | + +--------+ + + + | Vitals | 71 | | [facility] | | | Heart Rate | | | | | | Rest | | | | | + +--------+ + + + | Vitals | 175.0 | | [facility] | | | Height | | | | | + +--------+ + + + | Vitals | 76.00 | | [facility] | | | Weight | | | | | + +--------+ + + + | IVS | 1.04 | cm | [facility] | | | Diastolic | | | | | | Thickness | | | | | | MM | | | | | + +--------+ + + + | LVPW | 0.99 | cm | [facility] | | | Diastolic | | | | | | Thickness | | | | | | MM | | | | | + +--------+ + + + | IVS | 1.48 | cm | [facility] | | | Systolic | | | | | | Thickness | | | | | | MM | | | | | + +--------+ + + + | LV Systolic | 2.96 | cm | [facility] | | | Diameter | | | | | | MM | | | | | + +--------+ + + + | LVPW | 1.76 | cm | [facility] | | | Systolic | | | | | | Thickness | | | | | | MM | | | | | + +--------+ + + + + + | Specimen | + + | | + + + + + | Narrative | Performed At | + + + | Normal LV | [facility] | | systolic functionMild enlargement of the ascending aortaNo pulmonary | | | hypertensionNo obvious vegetation | | |No obvious vegetation | | + + + + +---------+ + + | Performing | Address | City/State/Zipcode | Phone Number | | Organization | | | | + +---------+ + + | [facility] | | | | + +---------+ + + POC Glucose (11/03/2019 8:26 AM PST) + + + + + + | Component | Value | Ref Range | Performed | Pathologist | | | | | At | Signature | + + + + + + | Glucose, | 158 (H)Comment: Testing | 65 - 99 mg/dL | [facility] | | | POC | performed at [facility];[address] | | LABORATORY | | | | [address];[place] | | | | | | [address] | | | | + + + + + + + + | Specimen | + + | | + + + + + + + | Performing | Address | City/State/Zipcode | Phone Number | | Organization | | | | + + + + + | [facility] | [address] | [place] [address] | [phone] | + + + + + C-Reactive Protein (11/03/2019 4:19 AM PST) + + + + + + | Component | Value | Ref Range | Performed | Pathologist | | | | | At | Signature | + + + + + + | CRP | 14.3 (H)Comment: Testing | <0.5 mg/dL | [facility] | | | | performed at [facility] | | LABORATORY | | | | [address];[place] | | | | | | [address] | | | | + + + + + + + + | Specimen | + + | Blood | + + + + + + + | Performing | Address | City/State/Zipcode | Phone Number | | Organization | | | | + + + + + | [facility] | [address] | [place] [address] | [phone] | + + + + + Sedimentation Rate (11/03/2019 4:19 AM PST) + + + + + + | Component | Value | Ref Range | Performed | Pathologist | | | | | At | Signature | + + + + + + | ESR | 118 (H)Comment: Testing | 0 - 20 mm/Hr | [facility] | | | | performed at [facility];[address] | | LABORATORY | | | | [address];[place] | | | | | | [address] | | | | + + + + + + + + | Specimen | + + | Blood | + + + + + + + | Performing | Address | City/State/Zipcode | Phone Number | | Organization | | | | + + + + + | [facility] | [address] | [place] [address] | [phone] | + + + + + CBC with Differential (11/03/2019 4:19 AM PST) + + + + + + | Component | Value | Ref Range | Performed | Pathologist | | | | | At | Signature | + + + + + + | WBC | 9.67 | 3.80 - 11.00 | [facility] | | | | | K/uL | LABORATORY | | + + + + + + | RBC | 3.20 (L) | 4.20 - 5.70 | [facility] | | | | | M/uL | LABORATORY | | + + + + + + | Hemoglobin | 8.5 (L) | 13.2 - 17.0 | [facility] | | | | | g/dL | LABORATORY | | + + + + + + | Hematocrit | 25.0 (L) | 39.0 - 50.0 % | [facility] | | | | | | LABORATORY | | + + + + + + | MCV | 78.0 (L) | 80.0 - 100.0 fl | [facility] | | | | | | LABORATORY | | + + + + + + | MCH | 26.5 (L) | 27.0 - 34.0 pg | [facility] | | | | | | LABORATORY | | + + + + + + | MCHC | 34.0 | 32.0 - 35.5 | [facility] | | | | | g/dL | LABORATORY | | + + + + + + | RDW-SD | 40.7 | 37 - 53 fl | [facility] | | | | | | LABORATORY | | + + + + + + | Platelet | 256 | 150 - 400 K/uL | [facility] | | | Count | | | LABORATORY | | + + + + + + | MPV | 7.1 | fl | [facility] | | | | | | LABORATORY | | + + + + + + | Diff Type | AUTOMATED | | [facility] | | | | | | LABORATORY | | + + + + + + | % | 80.68 | % | [facility] | | | Neutrophils | | | LABORATORY | | + + + + + + | % | 9.26 | % | [facility] | | | Lymphocytes | | | LABORATORY | | + + + + + + | Monocyte % | 7.45 | % | [facility] | | | | | | LABORATORY | | + + + + + + | Eosinophils | 1.84 | % | [facility] | | | % | | | LABORATORY | | + + + + + + | Basophils % | 0.77 | % | [facility] | | | | | | LABORATORY | | + + + + + + | Neutrophils | 7.80 (H) | 1.90 - 7.40 | [facility] | | | , Absolute | | K/uL | LABORATORY | | + + + + + + | Absolute | 0.90 (L) | 1.00 - 3.90 | [facility] | | | Lymphocytes | | K/uL | LABORATORY | | + + + + + + | Absolute | 0.72 | 0.00 - 0.80 | [facility] | | | Monocytes | | K/uL | LABORATORY | | + + + + + + | Eosinophils | 0.18 | 0.00 - 0.50 | [facility] | | | , Absolute | | K/uL | LABORATORY | | + + + + + + | Basophils, | 0.08Comment: Testing | 0.00 - 0.10 | [facility] | | | Absolute | performed at [facility];[address] | [address]/u[address] | LABORATORY | | | | [facility];[place], [place] | | | | | | [address] | | | | + + + + + + + + | Specimen | + + | Blood | + + + + + + + | Performing | Address | City/State/Zipcode | Phone Number | | Organization | | | | + + + + + | [facility] | [address] | [place] [address] | [phone] | + + + + + Comprehensive Metabolic Panel (11/03/2019 4:19 AM PST) + + + + + + | Component | Value | Ref Range | Performed | Pathologist | | | | | At | Signature | + + + + + + | Na | 137 | 135 - 145 | [facility] | | | | | mmol/L | LABORATORY | | + + + + + + | K | 3.3 (L) | 3.5 - 4.9 | [facility] | | | | | mmol/L | LABORATORY | | + + + + + + | Cl | 105 | 99 - 109 mmol/L | [facility] | | | | | | LABORATORY | | + + + + + + | CO2 | 25 | 23 - 32 mmol/L | [facility] | | | | | | LABORATORY | | + + + + + + | Anion Gap | 10 | 5 - 20 mmol/L | [facility] | | | | | | LABORATORY | | + + + + + + | Glucose | 176 (H) | 65 - 99 mg/dL | [facility] | | | | | | LABORATORY | | + + + + + + | BUN | 9 | 8 - 25 mg/dL | [facility] | | | | | | LABORATORY | | + + + + + + | Creatinine | 1.07 | 0.70 - 1.30 | [facility] | | | | | mg/dL | LABORATORY | | + + + + + + | BUN/Creatin | 8 | | [facility] | | | ine Ratio | | | LABORATORY | | + + + + + + | Calcium | 7.8 (L) | 8.5 - 10.5 | [facility] | | | | | mg/dL | LABORATORY | | + + + + + + | Protein, | 6.2 (L) | 6.3 - 8.2 g/dL | [facility] | | | Total | | | LABORATORY | | + + + + + + | Albumin | 3.1 (L) | 3.6 - 5.0 g/dL | [facility] | | | | | | LABORATORY | | + + + + + + | Globulin | 3.1 | 1.3 - 4.9 g/dL | [facility] | | | | | | LABORATORY | | + + + + + + | A/G Ratio | 1.0 | 1.0 - 2.4 | [facility] | | | | | | LABORATORY | | + + + + + + | BILIRUBIN, | 0.6 | 0.1 - 1.5 mg/dL | [facility] | | | TOTAL | | | LABORATORY | | + + + + + + | ALK PHOS | 141 (H) | 35 - 115 U/L | [facility] | | | | | | LABORATORY | | + + + + + + | AST | 15 | 10 - 45 U/L | [facility] | | | | | | LABORATORY | | + + + + + + | ALT | 13 | 10 - 65 U/L | [facility] | | | | | | LABORATORY | | + + + + + + | Estimated | >60Comment: GFR <60: | >60 | [facility] | | | GFR | CHRONIC KIDNEY DISEASE, | mL/min/1.73m2 | LABORATORY | | | | IF FOUND OVER A 3 MONTH | | | | | | PERIOD.GFR <15: KIDNEY | | | | | | FAILURE.FOR | | | | | | AMERICANS, MULTIPLY THE | | | | | | CALCULATED GFR BY | | | | | | 1.210.This eGFR is | | | | | | calculated using the | | | | | | MDRD IDIA traceable | | | | | | equation.Testing | | | | | | performed at [facility] | | | | | | [facility];[place], [place] | | | | | | [address] | | | | + + + + + + + + | Specimen | + + | Blood | + + + + + + + | Performing | Address | City/State/Zipcode | Phone Number | | Organization | | | | + + + + + | [facility] | [address] | [place] [address] | [phone] | + + + + + POC Glucose (11/02/2019 8:41 PM PST) + + + + + + | Component | Value | Ref Range | Performed | Pathologist | | | | | At | Signature | + + + + + + | Glucose, | 208 (H)Comment: Testing | 65 - 99 mg/dL | [facility] | | | POC | performed at [facility];[address] | | LABORATORY | | | | [address];[place] | | | | | | [address] | | | | + + + + + + + + | Specimen | + + | | + + + + + + + | Performing | Address | City/State/Zipcode | Phone Number | | Organization | | | | + + + + + | [facility] | [address] | [place] [address] | [phone] | + + + + + POC Glucose (11/02/2019 5:10 PM PST) + + + + + + | Component | Value | Ref Range | Performed | Pathologist | | | | | At | Signature | + + + + + + | Glucose, | 254 (H)Comment: Testing | 65 - 99 mg/dL | [facility] | | | POC | performed at [facility];[address] | | LABORATORY | | | | [address];[place] | | | | | | [address] | | | | + + + + + + + + | Specimen | + + | | + + + + + + + | Performing | Address | City/State/Zipcode | Phone Number | | Organization | | | | + + + + + | [facility] | [address] | [place] [address] | [phone] | + + + + + Potassium (11/02/2019 4:43 PM PST) + + + + + + | Component | Value | Ref Range | Performed | Pathologist | | | | | At | Signature | + + + + + + | K | 3.5Comment: Testing | 3.5 - 4.9 | [facility] | | | | performed at [facility];[address] | mmol/L | LABORATORY | | | | [address];[place], [place] | | | | | | [address] | | | | + + + + + + + + | Specimen | + + | Blood | + + + + + + + | Performing | Address | City/State/Zipcode | Phone Number | | Organization | | | | + + + + + | [facility] | [address] | [place] [address] | [phone] | + + + + + POC Glucose (11/02/2019 12:07 PM PST) + + + + + + | Component | Value | Ref Range | Performed | Pathologist | | | | | At | Signature | + + + + + + | Glucose, | 266 (H)Comment: Testing | 65 - 99 mg/dL | [facility] | | | POC | performed at [facility];[address] | | LABORATORY | | | | [address];[place] | | | | | | [address] | | | | + + + + + + + + | Specimen | + + | | + + + + + + + | Performing | Address | City/State/Zipcode | Phone Number | | Organization | | | | + + + + + | [facility] | [address] | [place] [address] | [phone] | + + + + + POC Glucose (11/02/2019 7:39 AM PST) + + + + + + | Component | Value | Ref Range | Performed | Pathologist | | | | | At | Signature | + + + + + + | Glucose, | 180 (H)Comment: Testing | 65 - 99 mg/dL | [facility] | | | POC | performed at [facility];[address] | | LABORATORY | | | | [address];[place] | | | | | | [address] | | | | + + + + + + + + | Specimen | + + | | + + + + + + + | Performing | Address | City/State/Zipcode | Phone Number | | Organization | | | | + + + + + | [facility] | [address] | [place] [address] | [phone] | + + + + + HIV 1 and 2 Ab, Reflex (11/02/2019 4:38 AM PST) + + + + + + | Component | Value | Ref Range | Performed | Pathologist | | | | | At | Signature | + + + + + + | HIV 1 and 2 | NON REACTIVEComment: THE | NR | [facility] | | | Ab | NON REACTIVE HIV 1/2 | | LABORATORY | | | | RESULT INDICATES THAT | | | | | | NEITHER ANTIBODIES NOR | | | | | | [id number] TO HIV 1/2 | | | | | | HAVE BEEN DETECTED IN | | | | | | THIS SPECIMEN. THIS | | | | | | RESULT DOES NOTPRECLUDE | | | | | | PREVIOUS EXPOSURE OR | | | | | | INFECTION.Testing | | | | | | performed at [facility], [address] | | | | | [address], | | | | | | [place] [address] | | | | + + + + + + + + | Specimen | + + | | + + + + + + + | Performing | Address | City/State/Zipcode | Phone Number | | Organization | | | | + + + + + | [facility] | [address] | [place] [address] | [phone] | + + + + + CBC with Differential (11/02/2019 4:38 AM PST) + + + + + + | Component | Value | Ref Range | Performed | Pathologist | | | | | At | Signature | + + + + + + | WBC | 12.78 (H) | 3.80 - 11.00 | [facility] | | | | | K/uL | LABORATORY | | + + + + + + | RBC | 3.17 (L) | 4.20 - 5.70 | [facility] | | | | | M/uL | LABORATORY | | + + + + + + | Hemoglobin | 8.3 (L) | 13.2 - 17.0 | [facility] | | | | | g/dL | LABORATORY | | + + + + + + | Hematocrit | 25.0 (L) | 39.0 - 50.0 % | [facility] | | | | | | LABORATORY | | + + + + + + | MCV | 78.7 (L) | 80.0 - 100.0 fl | [facility] | | | | | | LABORATORY | | + + + + + + | MCH | 26.0 (L) | 27.0 - 34.0 pg | [facility] | | | | | | LABORATORY | | + + + + + + | MCHC | 33.1 | 32.0 - 35.5 | [facility] | | | | | g/dL | LABORATORY | | + + + + + + | RDW-SD | 39.4 | 37 - 53 fl | [facility] | | | | | | LABORATORY | | + + + + + + | Platelet | 284 | 150 - 400 K/uL | [facility] | | | Count | | | LABORATORY | | + + + + + + | MPV | 7.8 | fl | [facility] | | | | | | LABORATORY | | + + + + + + | Diff Type | MANUAL | | [facility] | | | | | | LABORATORY | | + + + + + + | % Segmented | 90 | % | [facility] | | | | | | LABORATORY | | | Neutrophils | | | | | + + + + + + | % | 6 | % | [facility] | | | Lymphocytes | | | LABORATORY | | + + + + + + | % Monocytes | 2 | % | [facility] | | | | | | LABORATORY | | + + + + + + | Eosinophils | 2 | % | [facility] | | | % | | | LABORATORY | | + + + + + + | Neutrophils | 11.49 (H) | 1.90 - 7.40 | [facility] | | | , Absolute | | K/uL | LABORATORY | | + + + + + + | Absolute | 0.77 (L) | 1.00 - 3.90 | [facility] | | | Lymphocytes | | K/uL | LABORATORY | | + + + + + + | Absolute | 0.26 | 0.00 - 0.80 | [facility] | | | Monocytes | | K/uL | LABORATORY | | + + + + + + | Eosinophils | 0.26 | 0.00 - 0.50 | [facility] | | | , Absolute | | K/uL | LABORATORY | | + + + + + + | RBC | RBC AND PLT MORPHOLOGY | | [facility] | | | Morphology | APPEAR NORMALComment: | | LABORATORY | | | | Testing performed at | | | | | | [facility], [address] [place] [address] | | | | | | [place] | | | | | | [address] | | | | + + + + + + + + | Specimen | + + | Blood | + + + + + + + | Performing | Address | City/State/Zipcode | Phone Number | | Organization | | | | + + + + + | [facility] | [address] | [place] [address] | [phone] | + + + + + Hepatitis C Ab (11/02/2019 4:38 AM PST) + + + + + + | Component | Value | Ref Range | Performed | Pathologist | | | | | At | Signature | + + + + + + | HCV Ab | NON REACTIVEComment: | NR | [facility] | | | | Absence of Hepatitis C | | LABORATORY | | | | antibody suggests no | | | | | | past Hepatitis C virus | | | | | | infection. Since | | | | | | antibody development may | | | | | | be delayed up to 6 | | | | | | months after | | | | | | infection,retesting may | | | | | | be indicated.Testing | | | | | | performed at [facility], [address] | | | | | | [facility], | | | | | | [place] [address] | | | | + + + + + + + + | Specimen | + + | Blood | + + + + + + + | Performing | Address | City/State/Zipcode | Phone Number | | Organization | | | | + + + + + | [facility] | [address] | [place] [address] | [phone] | + + + + + Hepatitis B Core Ab, Total (11/02/2019 4:38 AM PST) + + + + + + | Component | Value | Ref Range | Performed | Pathologist | | | | | At | Signature | + + + + + + | Hepatitis B | NON REACTIVEComment: | NR | [facility] | | | Core Ab | Testing performed at | | LABORATORY | | | Total | [facility], [address] | | | | | | [place] | | | | | | [address] | | | | + + + + + + + + | Specimen | + + | Blood | + + + + + + + | Performing | Address | City/State/Zipcode | Phone Number | | Organization | | | | + + + + + | [facility] | [address] | [place] [address] | [phone] | + + + + + Hepatitis B Surface Ag (11/02/2019 4:38 AM PST) + + + + + + | Component | Value | Ref Range | Performed | Pathologist | | | | | At | Signature | + + + + + + | Hepatitis B | NON REACTIVEComment: | NR | [facility] | | | Surface Ag | Testing performed at | | LABORATORY | | | | [facility], [address] | | | | | | [place] | | | | | | [address] | | | | + + + + + + + + | Specimen | + + | Blood | + + + + + + + | Performing | Address | City/State/Zipcode | Phone Number | | Organization | | | | + + + + + | [facility] | [address] | [place] [address] | [phone] | + + + + + Hepatitis B Surface Ab, Quant (11/02/2019 4:38 AM PST) + + + + + + | Component | Value | Ref Range | Performed | Pathologist | | | | | At | Signature | + + + + + + | HEP B | 1.68 (H)Comment: <1.00 | <1.00 IV | [facility] | | | SURFACE | Non | | LABORATORY | | | ANTIBODY | Immune1.00 OR MORE | | | | | | Indicates vaccine | | | | | | response or response to | | | | | | HBV infection. An Index | | | | | | Value (IV) of 1.00 is | | | | | | equivalent to 10 mIU/mL. | | | | | | Samples with an IV | | | | | | of1.00 or greater are | | | | | | considered reactive | | | | | | (protected) in | | | | | | accordance with | | | | | | CDCGuidelines.Testing | | | | | | performed at [facility], [address] | | | | | | [facility], | | | | | | [place] [address] | | | | + + + + + + + + | Specimen | + + | Blood | + + + + + + + | Performing | Address | City/State/Zipcode | Phone Number | | Organization | | | | + + + + + | [facility] | [address] [facility] | [place] [address] | [phone] | + + + + + Magnesium (11/02/2019 4:38 AM PST) + + + + + + | Component | Value | Ref Range | Performed | Pathologist | | | | | At | Signature | + + + + + + | Magnesium | 1.9Comment: Testing | 1.7 - 2.4 mg/dL | [facility] | | | | performed at [facility], [address] | | LABORATORY | | | | [place], | | | | | | [place] [address] | | | | + + + + + + + + | Specimen | + + | Blood | + + + + + + + | Performing | Address | City/State/Zipcode | Phone Number | | Organization | | | | + + + + + | [facility] | [address] | [place] [address] | [phone] | + + + + + Vancomycin, Trough (11/02/2019 4:38 AM PST) + + + + + + | Component | Value | Ref Range | Performed | Pathologist | | | | | At | Signature | + + + + + + | Vancomycin, | 19.7Comment: 15 to 20 | 10 - 20 ug/mL | [facility] | | | Trough | ug/mL for meningitis, | | LABORATORY | | | | osteomyelitis, | | | | | | endocarditis, sepsis, | | | | | | orhealthcare associated | | | | | | pneumonia, or an CATHERINE | | | | | | equal to or greater than | | | | | | 1.0 ug/mLTesting | | | | | | performed at [facility];[address] | | [address] | [address];[place], [place] | | | | | | [address] | | | | + + + + + + + + | Specimen | + + | Blood | + + + + + + + | Performing | Address | City/State/Zipcode | Phone Number | | Organization | | | | + + + + + | [facility] | [address] | [place] [address] | [phone] | + + + + + Comprehensive Metabolic Panel (11/02/2019 4:38 AM PST) + + + + + + | Component | Value | Ref Range | Performed | Pathologist | | | | | At | Signature | + + + + + + | Na | 135 | 135 - 145 | [facility] | | | | | mmol/L | LABORATORY | | + + + + + + | K | 3.3 (L) | 3.5 - 4.9 | [facility] | | | | | mmol/L | LABORATORY | | + + + + + + | Cl | 104 | 99 - 109 mmol/L | [facility] | | | | | | LABORATORY | | + + + + + + | CO2 | 22 (L) | 23 - 32 mmol/L | [facility] | | | | | | LABORATORY | | + + + + + + | Anion Gap | 12 | 5 - 20 mmol/L | [facility] | | | | | | LABORATORY | | + + + + + + | Glucose | 192 (H) | 65 - 99 mg/dL | [facility] | | | | | | LABORATORY | | + + + + + + | BUN | 15 | 8 - 25 mg/dL | [facility] | | | | | | LABORATORY | | + + + + + + | Creatinine | 1.14 | 0.70 - 1.30 | [facility] | | | | | mg/dL | LABORATORY | | + + + + + + | BUN/Creatin | 13 | | [facility] | | | ine Ratio | | | LABORATORY | | + + + + + + | Calcium | 7.9 (L) | 8.5 - 10.5 | [facility] | | | | | mg/dL | LABORATORY | | + + + + + + | Protein, | 6.1 (L) | 6.3 - 8.2 g/dL | [facility] | | | Total | | | LABORATORY | | + + + + + + | Albumin | 3.1 (L) | 3.6 - 5.0 g/dL | [facility] | | | | | | LABORATORY | | + + + + + + | Globulin | 3.0 | 1.3 - 4.9 g/dL | [facility] | | | | | | LABORATORY | | + + + + + + | A/G Ratio | 1.0 | 1.0 - 2.4 | [facility] | | | | | | LABORATORY | | + + + + + + | BILIRUBIN, | 0.8 | 0.1 - 1.5 mg/dL | [facility] | | | TOTAL | | | LABORATORY | | + + + + + + | ALK PHOS | 98 | 35 - 115 U/L | [facility] | | | | | | LABORATORY | | + + + + + + | AST | 16 | 10 - 45 U/L | [facility] | | | | | | LABORATORY | | + + + + + + | ALT | 12 | 10 - 65 U/L | [facility] | | | | | | LABORATORY | | + + + + + + | Estimated | >60Comment: GFR <60: | >60 | [facility] | | | GFR | CHRONIC KIDNEY DISEASE, | mL/min/1.73m2 | LABORATORY | | | | IF FOUND OVER A 3 MONTH | | | | | | PERIOD.GFR <15: KIDNEY | | | | | | FAILURE.FOR | | | | | | AMERICANS, MULTIPLY THE | | | | | | CALCULATED GFR BY | | | | | | 1.210.This eGFR is | | | | | | calculated using the | | | | | | MDRD IDMS traceable | | | | | | equation.Testing | | | | | | performed at [facility] | | | | | | [facility];[place], [place] | | | | | | [address] | | | | + + + + + + + + | Specimen | + + | Blood | + + + + + + + | Performing | Address | City/State/Zipcode | Phone Number | | Organization | | | | + + + + + | [facility] | [address] | [place] [address] | [phone] | + + + + + LABS - EXTERNAL SCAN (11/02/2019 12:00 AM PST) + + + | Narrative | Performed At | + + + | Ordered by an | | | unspecified provider. | | + + + POC Glucose (11/01/2019 9:24 PM PST) + + + + + + | Component | Value | Ref Range | Performed | Pathologist | | | | | At | Signature | + + + + + + | Glucose, | 186 (H)Comment: Testing | 65 - 99 mg/dL | [facility] | | | POC | performed at [facility];[address] | | LABORATORY | | | | [address];[place], [place] | | | | | | [address] | | | | + + + + + + + + | Specimen | + + | | + + + + + + + | Performing | Address | City/State/Zipcode | Phone Number | | Organization | | | | + + + + + | [facility] | [address] | [place] [address] | [phone] | + + + + + Potassium (11/01/2019 7:59 PM PST) + + + + + + | Component | Value | Ref Range | Performed | Pathologist | | | | | At | Signature | + + + + + + | K | 3.5Comment: Testing | 3.5 - 4.9 | [facility] | | | | performed at [facility];888 | mmol/L | LABORATORY | | | | [address];[place] | | | | | | [address] | | | | + + + + + + + + | Specimen | + + | Blood | + + + + + + + | Performing | Address | City/State/Zipcode | Phone Number | | Organization | | | | + + + + + | [facility] | [address] | [place] [address] | [phone] | + + + + + POC Glucose (11/01/2019 5:06 PM PST) + + + + + + | Component | Value | Ref Range | Performed | Pathologist | | | | | At | Signature | + + + + + + | Glucose, | 208 (H)Comment: Testing | 65 - 99 mg/dL | [facility] | | | POC | performed at [facility];[address] | | LABORATORY | | | | [address];[place], [place] | | | | | | [address] | | | | + + + + + + + + | Specimen | + + | | + + + + + + + | Performing | Address | City/State/Zipcode | Phone Number | | Organization | | | | + + + + + | [facility] | [address] | [place] [address] | [phone] | + + + + + POC Glucose (11/01/2019 11:54 AM PST) + + + + + + | Component | Value | Ref Range | Performed | Pathologist | | | | | At | Signature | + + + + + + | Glucose, | 147 (H)Comment: Testing | 65 - 99 mg/dL | [facility] | | | POC | performed at [facility];[address] | | LABORATORY | | | | [address];[place] | | | | | | [address] | | | | + + + + + + + + | Specimen | + + | | + + + + + + + | Performing | Address | City/State/Zipcode | Phone Number | | Organization | | | | + + + + + | [facility] | [address] | [place] [address] | [phone] | + + + + + POC Glucose (11/01/2019 8:18 AM PST) + + + + + + | Component | Value | Ref Range | Performed | Pathologist | | | | | At | Signature | + + + + + + | Glucose, | 105 (H)Comment: Testing | 65 - 99 mg/dL | [facility] | | | POC | performed at [facility];[address] | | LABORATORY | | | | [address];[place] | | | | | | [address] | | | | + + + + + + + + | Specimen | + + | | + + + + + + + | Performing | Address | City/State/Zipcode | Phone Number | | Organization | | | | + + + + + | [facility] | [address] | [place] [address] | [phone] | + + + + + CK Total (11/01/2019 4:05 AM PST) + + + + + + | Component | Value | Ref Range | Performed | Pathologist | | | | | At | Signature | + + + + + + | CK TOTAL | 188Comment: Testing | 55 - 400 U/L | [facility] | | | | performed at [facility];[address] | | LABORATORY | | | | [address];[place] | | | | | | [address] | | | | + + + + + + + + | Specimen | + + | Blood | + + + + + + + | Performing | Address | City/State/Zipcode | Phone Number | | Organization | | | | + + + + + | [facility] | [address] | [place] [address] | [phone] | + + + + + Magnesium (11/01/2019 4:05 AM PST) + + + + + + | Component | Value | Ref Range | Performed | Pathologist | | | | | At | Signature | + + + + + + | Magnesium | 1.3 (L)Comment: Testing | 1.7 - 2.4 mg/dL | [facility] | | | | performed at [facility];[address] | | LABORATORY | | | | [address];[place], [place] | | | | | | [address] | | | | + + + + + + + + | Specimen | + + | Blood | + + + + + + + | Performing | Address | City/State/Zipcode | Phone Number | | Organization | | | | + + + + + | [facility] | [address] | [place] [address] | [phone] | + + + + + CBC with Differential (11/01/2019 4:05 AM PST) + + + + + + | Component | Value | Ref Range | Performed | Pathologist | | | | | At | Signature | + + + + + + | WBC | 16.29 (H) | 3.80 - 11.00 | [facility] | | | | | K/uL | LABORATORY | | + + + + + + | RBC | 3.07 (L) | 4.20 - 5.70 | [facility] | | | | | M/uL | LABORATORY | | + + + + + + | Hemoglobin | 8.1 (L) | 13.2 - 17.0 | [facility] | | | | | g/dL | LABORATORY | | + + + + + + | Hematocrit | 24.2 (L) | 39.0 - 50.0 % | [facility] | | | | | | LABORATORY | | + + + + + + | MCV | 78.8 (L) | 80.0 - 100.0 fl | [facility] | | | | | | LABORATORY | | + + + + + + | MCH | 26.3 (L) | 27.0 - 34.0 pg | [facility] | | | | | | LABORATORY | | + + + + + + | MCHC | 33.4 | 32.0 - 35.5 | [facility] | | | | | g/dL | LABORATORY | | + + + + + + | RDW-SD | 40.3 | 37 - 53 fl | [facility] | | | | | | LABORATORY | | + + + + + + | Platelet | 250 | 150 - 400 K/uL | [facility] | | | Count | | | LABORATORY | | + + + + + + | MPV | 7.2 | fl | [facility] | | | | | | LABORATORY | | + + + + + + | Diff Type | MANUAL | | [facility] | | | | | | LABORATORY | | + + + + + + | % Segmented | 83 | % | [facility] | | | | | | LABORATORY | | | Neutrophils | | | | | + + + + + + | % Bands | 5 | % | [facility] | | | | | | LABORATORY | | + + + + + + | % | 9 | % | [facility] | | | Lymphocytes | | | LABORATORY | | + + + + + + | % Monocytes | 3 | % | [facility] | | | | | | LABORATORY | | + + + + + + | Neutrophils | 13.52 (H) | 1.90 - 7.40 | [facility] | | | , Absolute | | K/uL | LABORATORY | | + + + + + + | Absolute | 0.81 (H) | 0.00 - 0.20 | [facility] | | | Band | | K/uL | LABORATORY | | | Neutrophils | | | | | + + + + + + | Absolute | 1.47 | 1.00 - 3.90 | [facility] | | | Lymphocytes | | K/uL | LABORATORY | | + + + + + + | Absolute | 0.49 | 0.00 - 0.80 | [facility] | | | Monocytes | | K/uL | LABORATORY | | + + + + + + | RBC | RBC AND PLT MORPHOLOGY | | [facility] | | | Morphology | APPEAR NORMALComment: | | LABORATORY | | | | Testing performed at | | | | | | [facility];[address] [place] [address] | | | | | | [address];[place] [address] | | | | + + + + + + + + | Specimen | + + | Blood | + + + + + + + | Performing | Address | City/State/Zipcode | Phone Number | | Organization | | | | + + + + + | [facility] | [address] | [place] [address] | [phone] | + + + + + Comprehensive Metabolic Panel (11/01/2019 4:05 AM PST) + + + + + + | Component | Value | Ref Range | Performed | Pathologist | | | | | At | Signature | + + + + + + | Na | 136 | 135 - 145 | [facility] | | | | | mmol/L | LABORATORY | | + + + + + + | K | 2.8 (L) | 3.5 - 4.9 | [facility] | | | | | mmol/L | LABORATORY | | + + + + + + | Cl | 105 | 99 - 109 mmol/L | [facility] | | | | | | LABORATORY | | + + + + + + | CO2 | 21 (L) | 23 - 32 mmol/L | [facility] | | | | | | LABORATORY | | + + + + + + | Anion Gap | 13 | 5 - 20 mmol/L | [facility] | | | | | | LABORATORY | | + + + + + + | Glucose | 113 (H) | 65 - 99 mg/dL | [facility] | | | | | | LABORATORY | | + + + + + + | BUN | 20 | 8 - 25 mg/dL | [facility] | | | | | | LABORATORY | | + + + + + + | Creatinine | 1.32 (H) | 0.70 - 1.30 | [facility] | | | | | mg/dL | LABORATORY | | + + + + + + | BUN/Creatin | 15 | | [facility] | | | ine Ratio | | | LABORATORY | | + + + + + + | Calcium | 8.2 (L) | 8.5 - 10.5 | [facility] | | | | | mg/dL | LABORATORY | | + + + + + + | Protein, | 6.0 (L) | 6.3 - 8.2 g/dL | [facility] | | | Total | | | LABORATORY | | + + + + + + | Albumin | 3.2 (L) | 3.6 - 5.0 g/dL | [facility] | | | | | | LABORATORY | | + + + + + + | Globulin | 2.8 | 1.3 - 4.9 g/dL | [facility] | | | | | | LABORATORY | | + + + + + + | A/G Ratio | 1.1 | 1.0 - 2.4 | [facility] | | | | | | LABORATORY | | + + + + + + | BILIRUBIN, | 1.2 | 0.1 - 1.5 mg/dL | [facility] | | | TOTAL | | | LABORATORY | | + + + + + + | ALK PHOS | 94 | 35 - 115 U/L | [facility] | | | | | | LABORATORY | | + + + + + + | AST | 21 | 10 - 45 U/L | [facility] | | | | | | LABORATORY | | + + + + + + | ALT | 16 | 10 - 65 U/L | [facility] | | | | | | LABORATORY | | + + + + + + | Estimated | 57 (L)Comment: GFR <60: | >60 | [facility] | | | GFR | CHRONIC KIDNEY DISEASE, | mL/min/1.73m2 | LABORATORY | | | | IF FOUND OVER A 3 MONTH | | | | | | PERIOD.GFR <15: KIDNEY | | | | | | FAILURE.FOR | | | | | | AMERICANS, MULTIPLY THE | | | | | | CALCULATED GFR BY | | | | | | 1.210.This eGFR is | | | | | | calculated using the | | | | | | MDRD IDIA traceable | | | | | | equation.Testing | | | | | | performed at [facility];[address] | | | | | | [facility];[place], [place] | | | | | | [address] | | | | + + + + + + + + | Specimen | + + | Blood | + + + + + + + | Performing | Address | City/State/Zipcode | Phone Number | | Organization | | | | + + + + + | [facility] | [address] | [place] [address] | [phone] | + + + + + POC Glucose (11/01/2019 4:01 AM PST) + + + + + + | Component | Value | Ref Range | Performed | Pathologist | | | | | At | Signature | + + + + + + | Glucose, | 118 (H)Comment: Testing | 65 - 99 mg/dL | [facility] | | | POC | performed at [facility];[address] | | LABORATORY | | | | [address];[place] | | | | | | [address] | | | | + + + + + + + + | Specimen | + + | | + + + + + + + | Performing | Address | City/State/Zipcode | Phone Number | | Organization | | | | + + + + + | [facility] | [address] | [place] [address] | [phone] | + + + + + MRI Cervical Spine w wo Contrast (10/31/2019 9:54 PM PST) + + | Specimen | + + | | + + + + + | Impressions | Performed At | + + + | 1. Advanced right-sided facet degenerative changes spanning C2 | [facility] | | through C5. At C4-C5 there is a facet joint effusion with mild | | | associated enhancement which could represent advanced degenerative | | | changes versus septic joint. 2. Marked edema, asymmetric | | | enlargement, in faint enhancement involving the right posterior neck | | | musculature which appears to be somewhat centered around the right | | | C4-C5 facet joint. Findings are concerning for infection/myositis | | | but could potentially represent sequela of previous injury. 3. No | | | epidural abscess, phlegmonous changes, or evidence of discitis | | | osteomyelitis. 4. Advanced cervical spondylosis at C3 through C5. | | | Changes are worst at C3-C4 where there is moderate to severe | | | narrowing of the spinal canal with mild compression of the cervical | | | cord. No definite cord signal abnormality is seen at any level but | | | evaluation is limited due to motion artifact on the sagittal T2 and | | | STIR images. Signed by: Steve Maria Jace Sign | | | Date/Time: 10/31/2019 11:01 PM | | + + + + + + | Narrative | Performed At | + + + | MRI CERVICAL SPINE WITHOUT AND WITH CONTRAST CLINICAL | [facility] | | INFORMATION: Neck pain, bone destruction on xray. rule out abscess or | | | osteo COMPARISON: CT neck 10/31/2019. PROCEDURE: Sagittal | | | T2, axial T2, sagittal T1, axial T1, sagittal STIR, axial T1 | | | enhanced, and sagittal T1 enhanced sequences. Contrast: 7 ML | | | GADAVIST IV. FINDINGS: Motion artifact on the sagittal T2 and | | | STIR images and axial images limits evaluation of the cervical cord. | | | Alignment: None alignment is unchanged with mild anterolisthesis | | | of C4-C5 and mild retrolisthesis C5-C6. Vertebrae and vertebral | | | marrow signal: No marrow edema. No evidence of fracture. No | | | evidence of discitis osteomyelitis. Cervicomedullary junction and | | | cervical cord: Limited evaluation of the cervical cord due to motion | | | artifact on the sagittal images. No definite cord signal alteration | | | identified. Cervical disc levels: Mild to moderate disc height | | | loss C5-C6. Advance multilevel facet arthropathy which is severe on | | | the right at C2-C3, C3-C4, and C4-C5. As seen on the previous CT | | | at C4-C5 there is an associated facet joint effusion with widening of | | | the facet joint and mild enhancement on postcontrast images. | | | Additionally, there is edema, face enhancement, and asymmetric | | | enlargement throughout the right posterolateral neck musculature. | | | No rim enhancing collection to suggest abscess formation. | | | Combination of posterior disc protrusion and buckling of ligamentum | | | flavum at C3-C4 result in moderate to severe narrowing of the spinal | | | canal with mild compression of the cervical cord. No definite cord | | | signal abnormality. Combination of a central disc protrusion and | | | buckling of the ligamentum flavum at C4-C5 results in moderate | | | narrowing of spinal canal with possible minimal cord compression | | | versus ventral cord contouring. Mild retrolisthesis at C5-C6 mild | | | contouring of the ventral cord. Paraspinal musculature and | | | paravertebral soft tissues: See above | | + + + + + | Procedure Note | + + | Leonard, Rad Results In - 10/31/2019 11:05 PM PST | | MRI CERVICAL SPINE WITHOUT AND WITH CONTRAST | | | | CLINICAL INFORMATION: | | Neck pain, bone destruction on xray. rule out abscess or osteo | | | | COMPARISON: | | CT neck 10/31/2019. | | | | PROCEDURE: | | Sagittal T2, axial T2, sagittal T1, axial T1, sagittal STIR, axial T1 | | enhanced, and sagittal T1 enhanced sequences. | | | | Contrast: 7 ML GADAVIST IV. | | | | FINDINGS: | | Motion artifact on the sagittal T2 and STIR images and axial images | | limits evaluation of the cervical cord. | | | | Alignment: None alignment is unchanged with mild anterolisthesis of | | C4-C5 and mild retrolisthesis C5-C6. | | | | Vertebrae and vertebral marrow signal: No marrow edema. No evidence of | | fracture. No evidence of discitis osteomyelitis. | | | | Cervicomedullary junction and cervical cord: Limited evaluation of the | | cervical cord due to motion artifact on the sagittal images. No | | definite cord signal alteration identified. | | | | Cervical disc levels: Mild to moderate disc height loss C5-C6. Advance | | multilevel facet arthropathy which is severe on the right at C2-C3, | | C3-C4, and C4-C5. As seen on the previous CT at C4-C5 there is an | | associated facet joint effusion with widening of the facet joint and | | mild enhancement on postcontrast images. Additionally, there is edema, | | face enhancement, and asymmetric enlargement throughout the right | | posterolateral neck musculature. No rim enhancing collection to | | suggest abscess formation. | | | | Combination of posterior disc protrusion and buckling of ligamentum | | flavum at C3-C4 result in moderate to severe narrowing of the spinal | | canal with mild compression of the cervical cord. No definite cord | | signal abnormality. Combination of a central disc protrusion and | | buckling of the ligamentum flavum at C4-C5 results in moderate | | narrowing of spinal canal with possible minimal cord compression versus | | ventral cord contouring. Mild retrolisthesis at C5-C6 mild contouring | | of the ventral cord. | | | | Paraspinal musculature and paravertebral soft tissues: See above | | | | IMPRESSION: | | 1. Advanced right-sided facet degenerative changes spanning C2 through | | C5. At C4-C5 there is a facet joint effusion with mild associated | | enhancement which could represent advanced degenerative changes versus | | septic joint. | | 2. Marked edema, asymmetric enlargement, in faint enhancement involving | | the right posterior neck musculature which appears to be somewhat | | centered around the right C4-C5 facet joint. Findings are concerning | | for infection/myositis but could potentially represent sequela of | | previous injury. | | 3. No epidural abscess, phlegmonous changes, or evidence of discitis | | osteomyelitis. | | 4. Advanced cervical spondylosis at C3 through C5. Changes are worst | | at C3-C4 where there is moderate to severe narrowing of the spinal | | canal with mild compression of the cervical cord. No definite cord | | signal abnormality is seen at any level but evaluation is limited due | | to motion artifact on the sagittal T2 and STIR images. | | | | | | | | | | Signed by: Steve Maria Jace | | Sign Date/Time: 10/31/2019 11:01 PM | + + + +---------+ + + | Performing | Address | City/State/Zipcode | Phone Number | | Organization | | | | + +---------+ + + | [facility] | | | | + +---------+ + + POC Glucose (10/31/2019 8:40 PM PST) + + + + + + | Component | Value | Ref Range | Performed | Pathologist | | | | | At | Signature | + + + + + + | Glucose, | 176 (H)Comment: Testing | 65 - 99 mg/dL | [facility] | | | POC | performed at [facility];[address] | | LABORATORY | | | | [address];[place] | | | | | | [address] | | | | + + + + + + + + | Specimen | + + | | + + + + + + + | Performing | Address | City/State/Zipcode | Phone Number | | Organization | | | | + + + + + | [facility] | [address] | [place] [address] | [phone] | + + + + + Drugs Of Abuse Screen, Urine (H) (10/31/2019 5:46 PM PST) + + + + + + | Component | Value | Ref Range | Performed | Pathologist | | | | | At | Signature | + + + + + + | Amp/Methamp | POSITIVE (A)Comment: | NEG | [facility] | | | hetamine, | Positive cutoff for AMP | | LABORATORY | | | Screen, | = 1000 ng/mL | | | | | Urine | | | | | + + + + + + | Barbiturate | NEGATIVEComment: | NEG | [facility] | | | s Screen, | Positive cutoff for ADELINA | | LABORATORY | | | Urine | = 200 ng/mL | | | | + + + + + + | Benzodiazep | NEGATIVEComment: | NEG | [facility] | | | chon | Positive cutoff for | | LABORATORY | | | Screen, | BENZO = 200 ng/mL | | | | | Urine | | | | | + + + + + + | Cocaine | NEGATIVEComment: | NEG | [facility] | | | Metabolites | Positive cutoff for JUAN | | LABORATORY | | | , Ur | = 300 ng/mL | | | | + + + + + + | Methadone | NEGATIVEComment: | NEG | [facility] | | | Screen, | Positive cutoff for MTD | | LABORATORY | | | Urine | = 300 ng/mL | | | | + + + + + + | Opiates | NEGATIVEComment: | NEG | [facility] | | | Screen, | Positive cutoff for OPI | | LABORATORY | | | Urine | = 300 ng/mL | | | | + + + + + + | Phencyclidi | NEGATIVEComment: | NEG | [facility] | | | ne Screen, | Positive cutoff for PCP | | LABORATORY | | | Urine | = 25 ng/mL | | | | + + + + + + | Tetrahydroc | NEGATIVEComment: | NEG | [facility] | | | annabinol(T | Positive cutoff for | | LABORATORY | | | HC) | THC = 50 ng/mLThe above | | | | | | are unconfirmed | | | | | | screening results. | | | | | | These results are to | | | | | | be used onlyfor medical | | | | | | (i.e.,treatment) | | | | | | purposes. Unconfirmed | | | | | | screening results must | | | | | | notbe used for | | | | | | non-medical purposes | | | | | | (e.g., employment | | | | | | testing, legal | | | | | | testing).Testing | | | | | | performed at [facility] | | | | | | [facility];[place], [place] | | | | | | [address] | | | | + + + + + + + + | Specimen | + + | | + + + + + + + | Performing | Address | City/State/Zipcode | Phone Number | | Organization | | | | + + + + + | [facility] | [address] | [place] [address] | [phone] | + + + + + Sodium, Urine, Random (10/31/2019 5:46 PM PST) + + + + + + | Component | Value | Ref Range | Performed | Pathologist | | | | | At | Signature | + + + + + + | Sodium, | 24Comment: NO NORMAL | mmol/L | [facility] | | | Random | RANGE ESTABLISHEDTesting | | LABORATORY | | | urine | performed at [facility], [address] | | | [address] | [address] [facility], | | | | | | [place] [address] | | | | + + + [...] | + + + + + | [facility] | [address] | [place] [address] | [phone] | + + + + + MRSA NAAT (10/31/2019 5:46 PM PST) + + + + + + | Component | Value | Ref Range | Performed | Pathologist | | | | | At | Signature | + + + + + + | SOURCE: | NARES(NOSE) | | [facility] | | | | | | LABORATORY | | + + + + + + | Result | POSITIVE for MRSA by PCR | MRSNEG | [facility] | | | | (A)Comment: Testing | | LABORATORY | | | | performed at [facility] | | | | | | [address];[place] | | | | | | [address] | | | | + + + + + + + + | Specimen | + + | Tissue - Both | | anterior nares (body | | structure) | + + + + + + + | Performing | Address | City/State/Zipcode | Phone Number | | Organization | | | | + + + + + | [facility] | [address] | [place] [address] | [phone] | + + + + + Respiratory pathogen panel, NAAT (10/31/2019 5:45 PM PST) + + + + + + | Component | Value | Ref Range | Performed | Pathologist | | | | | At | Signature | + + + + + + | Adenovirus | Not Detected | NOTDET | [facility] | | | DNA | | | LABORATORY | | + + + + + + | Coronavirus | Not Detected | NOTDET | [facility] | | | 229E | | | LABORATORY | | + + + + + + | Coronavirus | Not Detected | NOTDET | [facility] | | | HKU1 | | | LABORATORY | | + + + + + + | Coronavirus | Not Detected | NOTDET | [facility] | | | [id number] | | | LABORATORY | | + + + + + + | Coronavirus | Not Detected | NOTDET | [facility] | | | [id number] | | | LABORATORY | | + + + + + + | Human | Not Detected | NOTDET | [facility] | | | Metapneumov | | | LABORATORY | | | irus | | | | | + + + + + + | Rhinovirus/ | Not Detected | NOTDET | [facility] | | | Enterovirus | | | LABORATORY | | + + + + + + | Influenza A | Not Detected | NOTDET | [facility] | | | | | | LABORATORY | | + + + + + + | Influenza B | Not Detected | NOTDET | [facility] | | | | | | LABORATORY | | + + + + + + | Parainfluen | Not Detected | NOTDET | [facility] | | | za 1 | | | LABORATORY | | + + + + + + | Parainfluen | Not Detected | NOTDET | [facility] | | | za 2 | | | LABORATORY | | + + + + + + | Parainfluen | Not Detected | NOTDET | [facility] | | | za 3 | | | LABORATORY | | + + + + + + | Parainfluen | Not Detected | NOTDET | [facility] | | | za 4 | | | LABORATORY | | + + + + + + | Respiratory | Not Detected | NOTDET | [facility] | | | Syncytial | | | LABORATORY | | | Virus | | | | | + + + + + + | Bordetella | Not Detected | NOTDET | [facility] | | | pertussis | | | LABORATORY | | | DNA | | | | | + + + + + + | Chlamydia | Not Detected | NOTDET | [facility] | | | pneumoniae | | | LABORATORY | | + + + + + + | Mycoplasma | Not Detected | NOTDET | [facility] | | | pneumoniae | | | LABORATORY | | + + + + + + | Interpretat | A negative FilmArray RP | | [facility] | | | ion: | result does not exclude | | LABORATORY | | | | the possibility of a | | | | | | viral or bacterial | | | | | | infection. Test results | | | | | | may also be affected by | | | | | | concurrent | | | | | | antiviral/antibacterial | | | | | | therapy or levels of | | | | | | organism in the specimen | | | | | | that are below the | | | | | | limit of detection for | | | | | | this test. Comment: | | | | | | Negative results in the | | | | | | setting of a respiratory | | | | | | illness may be due | | | | | | toinfection with | | | | | | pathogens that are not | | | | | | detected by this test or | | | | | | lowerrespiratory tract | | | | | | infection that is not | | | | | | detected by a | | | | | | nasopharyngeal | | | | | | swabspecimen. Testing | | | | | | performed by Molecular | | | | | | MethodologyTesting | | | | | | performed at [facility], [address] | | | | | [facility], | | | | | | [place] [address] | | | | + + + + + + + + | Specimen | + + | Tissue - Entire | | nasopharynx (body | | structure) | + + + + + + + | Performing | Address | City/State/Zipcode | Phone Number | | Organization | | | | + + + + + | [facility] | [address] | [place] [address] | [phone] | + + + + + Culture, Blood (10/31/2019 5:37 PM PST) + + + + + + | Component | Value | Ref Range | Performed | Pathologist | | | | | At | Signature | + + + + + + | Special | LT AC | | [facility] | | | Requests | | | LABORATORY | | + + + + + + | Special | Testing performed at | | [facility] | | | Requests | [facility] | | LABORATORY | | | | [address];[place] [address] | | | | + + + + + + | RESULT | NO GROWTH 6 DAYS | | [facility] | | | | | | LABORATORY | | + + + + + + | RESULT | Testing performed at | | [facility] | | | | [facility], [address] | | LABORATORY | | | | [place], [place] | | | | | | [id number]: Testing | | | | | | performed at [facility], [address] | | | | | | [facility] [place], [place] | | | | | | [address] | | | | + + + + + + + + | Specimen | + + | Blood - Peripheral | | blood specimen | | (specimen) | + + + + + + + | Performing | Address | City/State/Zipcode | Phone Number | | Organization | | | | + + + + + | [facility] | [address] | [place] [address] | [phone] | + + + + + Culture, Blood (10/31/2019 5:36 PM PST) + + + + + + | Component | Value | Ref Range | Performed | Pathologist | | | | | At | Signature | + + + + + + | Special | LT AC | | [facility] | | | Requests | | | LABORATORY | | + + + + + + | Special | Testing performed at | | [facility] | | | Requests | [facility];[address] | | LABORATORY | | | | [address];[place] [address] | | | | + + + + + + | RESULT | NO GROWTH 6 DAYS | | [facility] | | | | | | LABORATORY | | + + + + + + | RESULT | Testing performed at | | [facility] | | | | TCL, [address] | | LABORATORY | | | | [place], [place], [place] | | | | | | [id number]: Testing | | | | | | performed at [facility], [address] | | | | | | [address], [place], [place] | | | | | | [address] | | | | + + + + + + + + | Specimen | + + | Blood - Peripheral | | blood specimen | | (specimen) | + + + + + + + | Performing | Address | City/State/Zipcode | Phone Number | | Organization | | | | + + + + + | [facility] | [address] | [place] [address] | [phone] | + + + + + Lactic Acid (10/31/2019 5:36 PM PST) + + + + + + | Component | Value | Ref Range | Performed | Pathologist | | | | | At | Signature | + + + + + + | Lactate, | 1.5Comment: Testing | 0.4 - 2.0 | [facility] | | | Serum | performed at [facility];[address] | mmol/L | LABORATORY | | | | [address];[place], [place] | | | | | | [address] | | | | + + + + + + + + | Specimen | + + | Blood | + + + + + + + | Performing | Address | City/State/Zipcode | Phone Number | | Organization | | | | + + + + + | [facility] | [address] | [place] [address] | [phone] | + + + + + Vitamin B-12 and Folate (10/31/2019 5:09 PM PST) + + + + + + | Component | Value | Ref Range | Performed | Pathologist | | | | | At | Signature | + + + + + + | VITAMIN | 565 | 254 - 1,320 | [facility] | | | B-12 | | pg/mL | LABORATORY | | + + + + + + | FOLATE | 5.7Comment: Testing | >5.4 ng/mL | [facility] | | | | performed at [facility], [address] | | LABORATORY | | | | [address], | | | | | | [place] [address] | | | | + + + + + + + + | Specimen | + + | Blood | + + + + + + + | Performing | Address | City/State/Zipcode | Phone Number | | Organization | | | | + + + + + | [facility] | [address] | [place] [address] | [phone] | + + + + + Ferritin (10/31/2019 5:09 PM PST) + + + + + + | Component | Value | Ref Range | Performed | Pathologist | | | | | At | Signature | + + + + + + | Ferritin | 76Comment: Testing | 11 - 450 ng/mL | [facility] | | | | performed at [facility], [address] | | LABORATORY | | | | [address] [place], | | | | | | [place] [address] | | | | + + + + + + + + | Specimen | + + | Blood | + + + + + + + | Performing | Address | City/State/Zipcode | Phone Number | | Organization | | | | + + + + + | [facility] | [address] | [place] [address] | [phone] | + + + + + Iron, Total (10/31/2019 5:09 PM PST) + + + + + + | Component | Value | Ref Range | Performed | Pathologist | | | | | At | Signature | + + + + + + | Iron | 10 (L)Comment: Testing | 45 - 190 ug/dL | [facility] | | | | performed at [facility], [address] | | LABORATORY | | | | [address], | | | | | | [place] [address] | | | | + + + + + + + + | Specimen | + + | Blood | + + + + + + + | Performing | Address | City/State/Zipcode | Phone Number | | Organization | | | | + + + + + | [facility] | [address] | [place] [address] | [phone] | + + + + + Vancomycin Level (10/31/2019 5:09 PM PST) + + + + + + | Component | Value | Ref Range | Performed | Pathologist | | | | | At | Signature | + + + + + + | Vancomycin | 12.2Comment: Testing | ug/mL | [facility] | | | Random, | performed at [facility];[address] | | LABORATORY | | | Serum | [address];[place], [place] | | | | | | [address] | | | | + + + + + + + + | Specimen | + + | | + + + + + + + | Performing | Address | City/State/Zipcode | Phone Number | | Organization | | | | + + + + + | [facility] | [address] | [place] [address] | [phone] | + + + + + Magnesium (10/31/2019 5:09 PM PST) + + + + + + | Component | Value | Ref Range | Performed | Pathologist | | | | | At | Signature | + + + + + + | Magnesium | 1.1 (L)Comment: Testing | 1.7 - 2.4 mg/dL | [facility] | | | | performed at [facility];[address] | | LABORATORY | | | | [address];[place], [place] | | | | | | [address] | | | | + + + + + + + + | Specimen | + + | | + + + + + + + | Performing | Address | City/State/Zipcode | Phone Number | | Organization | | | | + + + + + | [facility] | [address] | [place] [address] | [phone] | + + + + + Sedimentation Rate (10/31/2019 5:09 PM PST) + + + + + + | Component | Value | Ref Range | Performed | Pathologist | | | | | At | Signature | + + + + + + | ESR | 58 (H)Comment: Testing | 0 - 20 mm/Hr | [facility] | | | | performed at [facility];[address] | | LABORATORY | | | | [address];[place] | | | | | | [address] | | | | + + + + + + + + | Specimen | + + | | + + + + + + + | Performing | Address | City/State/Zipcode | Phone Number | | Organization | | | | + + + + + | [facility] | [address] | [place] [address] | [phone] | + + + + + CBC no Differential (10/31/2019 5:09 PM PST) + + + + + + | Component | Value | Ref Range | Performed | Pathologist | | | | | At | Signature | + + + + + + | WBC | 24.61 (H) | 3.80 - 11.00 | [facility] | | | | | K/uL | LABORATORY | | + + + + + + | RBC | 3.24 (L) | 4.20 - 5.70 | [facility] | | | | | M/uL | LABORATORY | | + + + + + + | Hemoglobin | 8.3 (L) | 13.2 - 17.0 | [facility] | | | | | g/dL | LABORATORY | | + + + + + + | Hematocrit | 25.4 (L) | 39.0 - 50.0 % | [facility] | | | | | | LABORATORY | | + + + + + + | MCV | 78.4 (L) | 80.0 - 100.0 fl | [facility] | | | | | | LABORATORY | | + + + + + + | MCH | 25.8 (L) | 27.0 - 34.0 pg | [facility] | | | | | | LABORATORY | | + + + + + + | MCHC | 32.9 | 32.0 - 35.5 | [facility] | | | | | g/dL | LABORATORY | | + + + + + + | RDW-SD | 39.8 | 37 - 53 fl | [facility] | | | | | | LABORATORY | | + + + + + + | Platelet | 279 | 150 - 400 K/uL | [facility] | | | Count | | | LABORATORY | | + + + + + + | MPV | 7.3Comment: Testing | fl | [facility] | | | | performed at [facility];[address] | | LABORATORY | | | | [address];[place] | | | | | | [address] | | | | + + + + + + + + | Specimen | + + | Blood | + + + + + + + | Performing | Address | City/State/Zipcode | Phone Number | | Organization | | | | + + + + + | [facility] | [address] | [place] [address] | [phone] | + + + + + C-Reactive Protein (10/31/2019 5:09 PM PST) + + + + + + | Component | Value | Ref Range | Performed | Pathologist | | | | | At | Signature | + + + + + + | CRP | 21.4 (H)Comment: Testing | <0.5 mg/dL | [facility] | | | | performed at [facility];[address] | | LABORATORY | | | | [address];[place], [place] | | | | | | [address] | | | | + + + + + + + + | Specimen | + + | Blood | + + + + + + + | Performing | Address | City/State/Zipcode | Phone Number | | Organization | | | | + + + + + | [facility] | [address] | [place] [address] | [phone] | + + + + + documented in this encounter Visit Diagnoses + + | Diagnosis | + + | Neck pain Cervicalgia | + + | Sepsis, due to unspecified organism, unspecified whether acute organ dysfunction | | present (HCC) | + + | Myositis of other site, unspecified myositis type | + + | 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 | + + | History of penicillin allergy Personal history of allergy to penicillin | + + | S/P BKA (below knee amputation) unilateral, left (HCC) | + + | Ulcer of left lower extremity, unspecified ulcer stage (HCC) | + + | Acute encephalopathy Encephalopathy, unspecified | + + | Gram-positive bacteremia Bacteremia | + + | Diabetes (HCC) | + + | Essential hypertension Unspecified essential hypertension | + + | Streptococcal bacteremia Bacteremia | + + | Facet arthritis of cervical region Cervical spondylosis without myelopathy | + + documented in this encounter Administered Medications + +--------+ +--------+------+------+ | Medication Order | MAR | Action | Dose | Rate | Site | | | Action | Date | | | | + +--------+ +--------+------+------+ | acetaminophen (TYLENOL) tablet | Given | 11/27/19 | 650 mg | | | | 650 mg 650 mg, Oral, EVERY 4 | | 20 8:25 | | | | | HOURS PRN, Pain, Starting Emmie | | PM PST | | | | | 10/31/19 at 2354 | | | | | | + +--------+ +--------+------+------+ +-------+ +--------+---+---+ | Given | 11/22/19 | 650 mg | | | | | 20 12:55 | | | | | | PM PST | | | | +-------+ +--------+---+---+ | Given | 11/14/19 | 650 mg | | | | | 20 7:59 | | | | | | PM PST | | | | +-------+ +--------+---+---+ +---+---+ | | | +---+---+ + +-------+ + +---+---+ | adult multivitamin with | Given | 11/28/19 | 1 tablet | | | | minerals/iron tablet 1 tablet 1 | | 20 8:22 | | | | | tablet, Oral, DAILY, First dose | | AM PST | | | | | on [facility] 10/31/19 at 1715 | | | | | | + +-------+ + +---+---+ +-------+ + +---+---+ | Given | 11/27/19 | 1 tablet | | | | | 20 8:31 | | | | | | AM PST | | | | +-------+ + +---+---+ | Given | 11/26/19 | 1 tablet | | | | | 20 8:34 | | | | | | AM PST | | | | +-------+ + +---+---+ +---+---+ | | | +---+---+ + +-------+ +--------+---+---+ | calcium carbonate (TUMS) | Given | 11/25/19 | 500 mg | | | | chewable tablet 500 mg 500 mg, | | 20 6:53 | | | | | Oral, ONCE, 11/25/19 at 0700, | | AM PST | | | | | For 1 dose | | | | | | + +-------+ +--------+---+---+ + +---+ | | | + +---+ | dextrose 10% (D10W) infusion | | | at 50 mL/hr, Intravenous, | | | CONTINUOUS PRN, hypoglycemia, | | | Starting [facility] 10/31/19 at 1721, | | | Start infusion if unable to | | | maintain blood glucose greater | | | than 70 mg/dL after two rounds of | | | hypoglycemia treatment. Recheck | | | blood glucose 30 minutes after | | | starting D10W then at least | | | hourly and PRN until it is | | | discontinued. Call provider to | | | discuss parameters for D10W | | | discontinuation., | | + +---+ | | | + +---+ | dextrose 50% injection 12.5-25 | | | g 12.5-25 g, Intravenous, PRN, | | | Low Blood Sugar, Starting Emmie | | | 10/31/19 at 1721, For blood | | | glucose 50-69 mg/dl - give 12.5 g | | | For blood glucose less than 50 | | | mg/dl - give 25 g, | | + +---+ | | | + +---+ + +-------+ +-------+---+ + | enoxaparin (LOVENOX) 40 mg/0.4 | Given | 11/27/19 | 40 mg | | Abdomen- | | mL injection 40 mg 40 mg, | | 20 5:19 | | | RLQ | | Subcutaneous, EVERY 24 HOURS | | PM PST | | | | | (Daily), First dose on Mon | | | | | | | 11/12/19 at 1830 | | | | | | + +-------+ +-------+---+ + +-------+ +-------+---+ + | Given | 11/26/19 | 40 mg | | Abdomen- | | | 20 4:16 | | | RLQ | | | PM PST | | | | +-------+ +-------+---+ + | Given | 11/25/19 | 40 mg | | Abdomen- | | | 20 4:47 | | | RLQ | | | PM PST | | | | +-------+ +-------+---+ + +---+---+ | | | +---+---+ + +-------+ +-------+---+---+ | famotidine (PEPCID) tablet 20 | Given | 11/28/19 | 20 mg | | | | mg 20 mg, Oral, 2 TIMES DAILY, | | 20 8:22 | | | | | First dose on Mon11/15/19 at 2100 | | AM PST | | | | + +-------+ +-------+---+---+ +-------+ +-------+---+---+ | Given | 11/27/19 | 20 mg | | | | | 20 8:19 | | | | | | PM PST | | | | +-------+ +-------+---+---+ | Given | 11/27/19 | 20 mg | | | | | 20 8:31 | | | | | | AM PST | | | | +-------+ +-------+---+---+ +---+---+ | | | +---+---+ + +-------+ +-------+---+---+ | gadobutrol (GADAVIST) injection | Given | 10/31/19 | 7 mLs | | | | 7 mL 7 mL, Intravenous, ONCE | | 20 9:54 | | | | | PRN, Other, Starting Emmie 10/31/19 | | PM PST | | | | | at 2130, For 1 dose, MRI | | | | | | + +-------+ +-------+---+---+ +---+---+ | | | +---+---+ + +-------+ +---------+---+---+ | HYDROcodone-acetaminophen | Given | 11/12/19 | 2 | | | | (NORCO) 5-325 mg per tablet 1-2 | | 20 8:31 | tablets | | | | tablet 1-2 tablet, Oral, EVERY 6 | | AM PST | | | | | HOURS PRN, Pain, Starting Emmie | | | | | | | 10/31/19 at 1651 | | | | | | + +-------+ +---------+---+---+ +-------+ +---------+---+---+ | Given | 11/10/19 | 2 | | | | | 20 9:08 | tablets | | | | | PM PST | | | | +-------+ +---------+---+---+ | Given | 11/09/19 | 2 | | | | | 20 8:07 | tablets | | | | | PM PST | | | | +-------+ +---------+---+---+ +---+---+ | | | +---+---+ + +-------+ +------+---+---+ | HYDROmorphone (DILAUDID) | Given | 11/06/19 | 1 mg | | | | injection 0.5-1 mg 0.5-1 mg, | | 20 6:28 | | | | | Intravenous, EVERY 2 HOURS PRN, | | PM PST | | | | | Pain, Starting Emmie 10/31/19 at | | | | | | | 1710 | | | | | | + +-------+ +------+---+---+ +-------+ +------+---+---+ | Given | 11/06/19 | 1 mg | | | | | 20 12:25 | | | | | | PM PST | | | | +-------+ +------+---+---+ | Given | 11/02/19 | 1 mg | | | | | 20 4:23 | | | | | | PM PST | | | | +-------+ +------+---+---+ +---+---+ | | | +---+---+ + +-------+ + +---+ + | insulin glargine (LANTUS | Given | 11/27/19 | 15 Units | | Abdomen- | | SOLOSTAR) injection (pen) 15 | | 20 9:32 | | | RLQ | | Units 15 Units, Subcutaneous, | | PM PST | | | | | DAILY EVENING, First dose on Mon | | | | | | | 11/12/19 at 1930, For subcutaneous | | | | | | | use only. Basal (long acting) | | | | | | | insulin., If NPO: Decrease dose, | | | | | | | by: 50% | | | | | | + +-------+ + +---+ + +-------+ + +---+ + | Given | 11/26/19 | 15 Units | | Abdomen- | | | 20 9:16 | | | RLQ | | | PM PST | | | | +-------+ + +---+ + | Given | 11/25/19 | 15 Units | | Abdomen- | | | 20 9:05 | | | LLQ | | | PM PST | | | | +-------+ + +---+ + +---+---+ | | | +---+---+ + +-------+ +---------+---+ + | insulin lispro (humaLOG) | Given | 11/28/19 | 1 Units | | Arm-Left | | injection (vial) 0-6 Units 0-6 | | 20 12:46 | | | Upper | | Units, Subcutaneous, 4 TIMES | | PM PST | | | | | DAILY BEFORE MEALS & NIGHTLY, | | | | | | | First dose on Mon11/11/19 at | | | | | | | 2230, CORRECTION SCALE: Blood | | | | | | | Glucose (BG) < 150: | | | | | | | None BG 150-200: DAY: 1 units. | | | | | | | NIGHT: 0 units BG 201-250: | | | | | | | DAY: 2 units. NIGHT: 1 units | | | | | | | BG 251-300: DAY: 3 units. NIGHT: | | | | | | | 2 units BG 301-350: DAY: 4 | | | | | | | units. NIGHT: 3 units BG | | | | | | | 351-400: DAY: 5 units. NIGHT: 4 | | | | | | | units BG > 400 : DAY: 6 | | | | | | | units. NIGHT: 5 units | | | | | | | AND CALL PROVIDER | | | | | | | Use DAY DOSE for doses | | | | | | | scheduled: AC, NPO, Daytime | | | | | | | [id number] Use NIGHT DOSE for | | | | | | | doses scheduled: HS, 3AM, | | | | | | | Nighttime 8334-3802 If the BG is | | | | | | | not checked before the patient | | | | | | | starts eating, do not give | | | | | | | correction insulin. If HS insulin | | | | | | | given, check blood glucose at | | | | | | | 3AM. Only for use with U-100 | | | | | | | insulin syringe., | | | | | | + +-------+ +---------+---+ + +-------+ +---------+---+ + | Given | 11/27/19 | 2 Units | | Arm-Righ | | | 20 12:02 | | | t Upper | | | PM PST | | | | +-------+ +---------+---+ + | Given | 11/26/19 | 1 Units | | Arm-Righ | | | 20 8:33 | | | t Upper | | | AM PST | | | | +-------+ +---------+---+ + +---+---+ | | | +---+---+ + +-------+ +-------+---+---+ | lisinopril (PRINIVIL, ZESTRIL) | Given | 11/28/19 | 10 mg | | | | tablet 10 mg 10 mg, Oral, DAILY, | | 20 8:22 | | | | | First dose on 11/04/19 at 1615 | | AM PST | | | | + +-------+ +-------+---+---+ +-------+ +-------+---+---+ | Given | 11/27/19 | 10 mg | | | | | 20 8:31 | | | | | | AM PST | | | | +-------+ +-------+---+---+ | Given | 11/26/19 | 10 mg | | | | | 20 8:34 | | | | | | AM PST | | | | +-------+ +-------+---+---+ +---+---+ | | | +---+---+ + +---------+ +-----+ +---+ | magnesium sulfate 2 g/50 mL | New Bag | 11/01/19 | 2 g | 25 mL/hr | | | IVPB 2 g 2 g, Intravenous, | | 20 2:53 | | | | | Administer over 120 Minutes, | | PM PST | | | | | ONCE, Mon11/01/19 at 1200, For 1 | | | | | | | dose, Maximum recommended | | | | | | | infusion rate = 1 gram/hour., | | | | | | + +---------+ +-----+ +---+ +---+---+ | | | +---+---+ + +-------+ +--------+---+---+ | potassium chloride (KLOR-CON) | Given | 11/06/19 | 40 mEq | | | | ER tablet 20-40 mEq 20-40 mEq, | | 20 9:19 | | | | | Oral, DAILY PRN, Per protocol, | | AM PST | | | | | Starting Mon11/01/19 at 1128, | | | | | | | NON-ICU Protocol Replace | | | | | | | potassium once per day based on | | | | | | | morning potassium level. Use | | | | | | | scale below to determine dose. If | | | | | | | further replacement is required | | | | | | | after this morning dose of | | | | | | | potassium, notify provider | | | | | | | Protocol NOT recommended if Scr > | | | | | | | 1.8, dialysis patients or CrCl < | | | | | | | 50 mL/min [K+] =3.6 - 4 mEql/L | | | | | | | Give 20 mEq KCl PO x 1 dose | | | | | | | [K+] 3.0 - 3.5 mEql/L Give 40 | | | | | | | mEq KCl PO x 1 dose [K+] < 3.0 | | | | | | | mEq/L Notify provider * | | | | | | | Recheck K+ 4 hours after | | | | | | | replacement is done. Give either | | | | | | | tablet, liquid, or IV but never | | | | | | | more than one form. If repeat K | | | | | | | is still < 3.5, contact provider | | | | | | | for further instruction. May take | | | | | | | with food to decrease GI upset., | | | | | | | | | | | | | + +-------+ +--------+---+---+ +-------+ +--------+---+---+ | Given | 11/01/19 | 40 mEq | | | | | 20 4:01 | | | | | | PM PST | | | | +-------+ +--------+---+---+ +---+---+ | | | +---+---+ + +---------+ +--------+-------+---+ | potassium chloride 20 mEq in | New Bag | 11/06/19 | 20 mEq | 130 | | | sodium chloride 0.9% 250 mL IVPB | | 20 8:25 | | mL/hr | | | 20 mEq, Intravenous, Administer | | PM PST | | | | | over 2 Hours, ONCE, Mon11/06/19 at | | | | | | | 2030, For 1 dose | | | | | | + +---------+ +--------+-------+---+ +---+---+ | | | +---+---+ + +---------+ +--------+-------+---+ | potassium chloride 40 mEq in | New Bag | 11/03/19 | 40 mEq | 130 | | | sodium chloride 0.9% 500 mL IVPB | | 20 10:00 | | mL/hr | | | 40 mEq, Intravenous, Administer | | AM PST | | | | | over 4 Hours, DAILY PRN, Per | | | | | | | protocol, Starting Mon11/01/19 at | | | | | | | 1128, NON-ICU Protocol Replace | | | | | | | potassium once per day based on | | | | | | | morning potassium level. Use | | | | | | | scale below to determine dose. If | | | | | | | further replacement is required | | | | | | | after this morning dose of | | | | | | | potassium, notify provider | | | | | | | Protocol NOT recommended if Scr > | | | | | | | 1.8, dialysis patients or CrCl < | | | | | | | 50 mL/min [K+] 3.0 - 3.5 mEql/L | | | | | | | Give 40 mEq KCl IV X 1 dose | | | | | | | * Recheck K+ 2 hours after | | | | | | | replacement is done. Give either | | | | | | | tablet, liquid, or IV but never | | | | | | | more than one form. If repeat K | | | | | | | is still < 3.5, contact provider | | | | | | | for further instruction., | | | | | | + +---------+ +--------+-------+---+ +---------+ +--------+-------+---+ | New Bag | 11/02/19 | 40 mEq | 130 | | | | 20 10:52 | | mL/hr | | | | AM PST | | | | +---------+ +--------+-------+---+ +---+---+ | | | +---+---+ + +---------+ +---+-------+---+ | sodium chloride 0.9% (NS) | New Bag | 11/06/19 | | 100 | | | infusion at 100 mL/hr, | | 20 3:31 | | mL/hr | | | Intravenous, CONTINUOUS, Starting | | PM PST | | | | | Emmie 10/31/19 at 1715 | | | | | | + +---------+ +---+-------+---+ +---------+ +---+-------+---+ | New Bag | 11/05/19 | | 100 | | | | 20 4:04 | | mL/hr | | | | PM PST | | | | +---------+ +---+-------+---+ | New Bag | 11/03/19 | | 100 | | | | 20 9:06 | | mL/hr | | | | PM PST | | | | +---------+ +---+-------+---+ +---+---+ | | | +---+---+ + +---------+ +---+ +---+ | sodium chloride 0.9% (NS) | New Bag | 11/21/19 | | 75 mL/hr | | | infusion at 75 mL/hr, | | 20 6:01 | | | | | Intravenous, CONTINUOUS, Starting | | PM PST | | | | | 11/19/19 at 1445 | | | | | | + +---------+ +---+ +---+ +---------+ +---+ +---+ | New Bag | 11/19/19 | | 75 mL/hr | | | | 20 5:34 | | | | | | PM PST | | | | +---------+ +---+ +---+ | New Bag | 11/19/19 | | 75 mL/hr | | | | 20 2:50 | | | | | | PM PST | | | | +---------+ +---+ +---+ +---+---+ | | | +---+---+ + +---------+ +--------+-------+---+ | vancomycin 750 mg in sodium | New Bag | 11/10/19 | 750 mg | 250 | | | chloride 0.9% 250 mL IVPB 750 | | 20 6:00 | | mL/hr | | | mg, Intravenous, Administer over | | AM PST | | | | | 60 Minutes, EVERY 12 HOURS | | | | | | | INTERVAL, First dose (after last | | | | | | | modification) on 11/02/19 at | | | | | | | 1830, Vancomycin trough due 11/10 | | | | | | | at 1730. Please contact | | | | | | | pharmacist with trough result | | | | | | | prior to administering dose as | | | | | | | dose adjustment may be | | | | | | | warranted., , Activate system | | | | | | | and mix before use., Indications: | | | | | | | NON-PURULENT SKIN AND SOFT | | | | | | | TISSUE INFECTION | | | | | | + +---------+ +--------+-------+---+ +---------+ +--------+-------+---+ | New Bag | 11/09/19 | 750 mg | 250 | | | | 20 6:50 | | mL/hr | | | | PM PST | | | | +---------+ +--------+-------+---+ | New Bag | 11/09/19 | 750 mg | 250 | | | | 20 5:55 | | mL/hr | | | | AM PST | | | | +---------+ +--------+-------+---+ +---+---+ | | | +---+---+ + +---------+ +--------+-------+---+ | vancomycin 750 mg in sodium | New Bag | 11/12/19 | 750 mg | 250 | | | chloride 0.9% 250 mL IVPB 750 | | 20 8:22 | | mL/hr | | | mg, Intravenous, Administer over | | AM PST | | | | | 60 Minutes, EVERY 18 HOURS, First | | | | | | | dose on 11/10/19 at 2000, Next | | | | | | | level due 11/12 at 07:00, Do not | | | | | | | administer next dose if level is | | | | | | | > 20 mcg/mL Activate system and | | | | | | | mix before use., Indications: | | | | | | | Osteomyelitis | | | | | | + +---------+ +--------+-------+---+ +---------+ +--------+-------+---+ | New Bag | 11/11/19 | 750 mg | 250 | | | | 20 3:05 | | mL/hr | | | | PM PST | | | | +---------+ +--------+-------+---+ | New Bag | 11/10/19 | 750 mg | 250 | | | | 20 7:35 | | mL/hr | | | | PM PST | | | | +---------+ +--------+-------+---+ +---+---+ | | | +---+---+ + +---------+ +--------+-------+---+ | vancomycin 750 mg in sodium | New Bag | 11/13/19 | 750 mg | 250 | | | chloride 0.9% 250 mL IVPB 750 | | 20 9:48 | | mL/hr | | | mg, Intravenous, Administer over | | AM PST | | | | | 60 Minutes, EVERY 12 HOURS | | | | | | | INTERVAL, First dose (after last | | | | | | | modification) on Mon11/12/19 at | | | | | | | 2100, Next level due 11/12 at | | | | | | | 07:00, Do not administer next | | | | | | | dose if level is > 20 mcg/mL | | | | | | | Activate system and mix before | | | | | | | use., Indications: Osteomyelitis | | | | | | + +---------+ +--------+-------+---+ +---------+ +--------+-------+---+ | New Bag | 11/12/19 | 750 mg | 250 | | | | 20 8:19 | | mL/hr | | | | PM PST | | | | +---------+ +--------+-------+---+ +---+---+ | | | +---+---+ + +---------+ + +--------+---+ | vancomycin in NS (VANCOCIN) | New Bag | 11/28/19 | 1,250 mg | 166.7 | | | IVPB 1,250 mg 1,250 mg, | | 20 11:33 | | mL/hr | | | Intravenous, Administer over 90 | | AM PST | | | | | Minutes, EVERY 24 HOURS INTERVAL, | | | | | | | First dose (after last | | | | | | | modification) on 11/16/19 at | | | | | | | 1200, True due 11/22 @ 1100., | | | | | | | Please do not give the dose if | | | | | | | level >20 Keep in | | | | | | | refrigerator., Indications: | | | | | | | Bacteremia, Myositis | | | | | | + +---------+ + +--------+---+ +---------+ + +--------+---+ | New Bag | 11/27/19 | 1,250 mg | 166.7 | | | | 20 12:02 | | mL/hr | | | | PM PST | | | | +---------+ + +--------+---+ | New Bag | 11/26/19 | 1,250 mg | 166.7 | | | | 20 11:45 | | mL/hr | | | | AM PST | | | | +---------+ + +--------+---+ +---+---+ | | | +---+---+ + +---------+ +-----+-------+---+ | vancomycin in saline IVPB 1 g | New Bag | 11/15/19 | 1 g | 250 | | | 1 g, Intravenous, Administer over | | 20 5:15 | | mL/hr | | | 60 Minutes, EVERY 18 HOURS, | | PM PST | | | | | First dose (after last | | | | | | | modification) on [facility] 11/14/19 at | | | | | | | 0400, Next level due 11/16 at | | | | | | | 0900, Do not administer next dose | | | | | | | if level is > 20 mcg/mL Keep in | | | | | | | refrigerator., Indications: | | | | | | | Bacteremia, Myositis | | | | | | + +---------+ +-----+-------+---+ +---------+ +-----+-------+---+ | New Bag | 11/14/19 | 1 g | 250 | | | | 20 11:41 | | mL/hr | | | | PM PST | | | | +---------+ +-----+-------+---+ | New Bag | 11/14/19 | 1 g | 250 | | | | 20 5:30 | | mL/hr | | | | AM PST | | | | +---------+ +-----+-------+---+ +---+---+ | | | +---+---+ + +---------+ + +-------+---+ | vancomycin in saline IVPB 1,000 | New Bag | 11/02/19 | 1,000 mg | 250 | | | mg 1,000 mg (rounded from | | 20 6:27 | | mL/hr | | | 1,108.5 mg = 15 mg/kg | | AM PST | | | | | 73.9 kg Adjusted weight), | | | | | | | Intravenous, Administer over 60 | | | | | | | Minutes, EVERY 12 HOURS INTERVAL, | | | | | | | First dose on [facility]ie 10/31/19 at | | | | | | | 1830, For 4 doses, vanco trough | | | | | | | 11/02 @ 0530 before 0630 dose. | | | | | | | Please do not give 0630 dose | | | | | | | until level results. Keep in | | | | | | | refrigerator., Indications: | | | | | | | NON-PURULENT SKIN AND SOFT TISSUE | | | | | | | INFECTION, Osteomyelitis | | | | | | + +---------+ + +-------+---+ +---------+ + +-------+---+ | New Bag | 11/01/19 | 1,000 mg | 250 | | | | 20 6:07 | | mL/hr | | | | PM PST | | | | +---------+ + +-------+---+ | New Bag | 11/01/19 | 1,000 mg | 250 | | | | 20 6:12 | | mL/hr | | | | AM PST | | | | +---------+ + +-------+---+ + +---+ | | | + +---+ | vancomycin per pharmacy | | | PHARMACY CONSULT, Starting Emmie | | | 10/31/19 at 1648, Indications: | | | NON-PURULENT SKIN AND SOFT TISSUE | | | INFECTION | | + +---+ | | | + +---+ documented in this encounter Additional Health Concerns + + + + | Infection | Noted Time | Resolved Time | + + + + | Methicillin-resistant Staphylococcus aureus | 12/15/2016 12:00 AM | | | | PDT | | + + + + documented as of this encounter
--- OUTSIDE RECORDS SUMMARY | ~2020-03-27 | XMS | Clinical Summary ---
Demographics + + + | Address | [address] [place] [address] RD | | | [place] [address] | + + + | Home Phone [...] + + + | Author | [facility] | | | and [place] | + + + | Organization | [facility] | | | [...] Team Providers + +------+ + | Care Rubber Mill Tender Name | Role | Phone | + +------+ + | Estrella Light PA-C | PCP | | + +------+ + Allergies + + + + + + | Active Allergy | Reactions | Severity | Noted | Comments | | | | | Date | | + + + + + + | Penicillins | Rash, Hives | High | 03/04/20 | | | | | | 15 | | + + + + + + Medications + + + +---------+------+------+-------+ | Medication | Sig | Dispensed | Refills | Star | End | Statu | | | | | | t | Date | s | | | | | | Date | | | + + + +---------+------+------+-------+ | Multiple | Take 1 tablet by | | 0 | | | Activ | | Vitamins-Minerals | mouth Daily. | | | | | e | | (CEROVITE SENIOR) | | | | | | | | TABS | | | | | | | + + + +---------+------+------+-------+ | loperamide | Take 2 mg by mouth 4 | | 0 | | | Activ | | (IMODIUM) 2 mg | (four) times daily | | | | | e | | capsule | as needed for | | | | | | | | Diarrhea. | | | | | | + + + +---------+------+------+-------+ | sildenafil | Take 1 tablet by | | 0 | 09/0 | | Activ | | (VIAGRA) 50 MG | mouth as needed for | | | 7/20 | | e | | tablet | Erectile | | | 16 | | | | | Dysfunction. | | | | | | + + + +---------+------+------+-------+ | | Take 1 tablet by | 30 | 0 | 01/1 | | Activ | | HYDROcodone-acetamin | mouth every 6 hours | tablet | | 2/20 | | e | | ophen (NORCO) 5-325 | as needed. | | | 20 | | | | mg per tablet | | | | | | | + + + +---------+------+------+-------+ | lisinopril | Take 1 tablet by | 30 | 3 | 02/2 | | Activ | | (PRINIVIL, ZESTRIL) | mouth Daily. | tablet | | 04/20 | | e | | 10 mg tablet | | | | 20 | | | + + + +---------+------+------+-------+ | insulin lispro | Inject 1-6 Units | 15 mL | 0 | 02/2 | | Activ | | (HUMALOG KWIKPEN) | under the skin 3 | | | 04/20 | | e | | 100 units/mL | times daily (before | | | 20 | | | | injection (pen) | [...] | provider | | | | | | + + + +---------+------+------+-------+ | insulin glargine | Inject 15 Units | 1 pen | 3 | 02/2 | | Activ | | (LANTUS SOLOSTAR) | under the skin every | | | 7/20 | | e | | 100 units/mL | evening. | | | 20 | | | | injection (pen) | | | | | | | + + + +---------+------+------+-------+ Active Problems + + + | Problem | Noted Date | + + + | Streptococcal bacteremia | 11/26/2019 | + + + | Facet arthritis of cervical region | 11/26/2019 | + + + | Acute encephalopathy | 11/02/2019 | + + + | Sepsis | 10/31/2019 | + + + | Neck pain | 10/31/2019 | + + + | Skin ulcer of right foot, limited to breakdown of skin | 01/13/2018 | + + + | Viral upper respiratory tract infection | 01/13/2018 | + + + | Osteomyelitis | 12/15/2016 | + + + | IgG Gliadin antibody positive | 04/11/2016 | + + + | Diarrhea | 09/21/2015 | + + + | Type 2 diabetes mellitus, with long-term current use of insulin | 03/04/2015 | + + + | Vitamin D deficiency | | + + + | Other chest pain | | + + + | Impotence | | + + + | Impairment level of vision | | + + + | Fracture, metacarpal | | + + + + + | Overview: Problem list cup setter lockstitch utility | + + + +---+ | Fracture, tooth | | + +---+ | Impetigo | | + +---+ | Diabetic neuropathy | | + +---+ | Vertigo | | + +---+ | Abnormal weight loss | | + +---+ | Essential hypertension | | + +---+ | Allergic rhinitis | | + +---+ | Cramp in limb | | + +---+ | Cellulitis and abscess of foot | | + +---+ | Onychia of toe | | + +---+ | Diabetes | | + +---+ Family History + + + + + | Medical History | Relation | Name | Comments | + + + + + | Other (see comment) | Mother | | multiple myeloma | + + + + + | Diabetes | Other | grandmot | | | | | her | | + + + + + + + +--------+ + | Relation | Name | Status | Comments | + + +--------+ + | Father | | Alive | | + + +--------+ + | Mother | | | | + + +--------+ + | Other | grandmoth | | | | | er | | | + + +--------+ + Social History + + + +--------+ [...] | | + + + + + Plan of Treatment + + + + + | Health Maintenance | Due Date | Last | Comments | | | | Done | | + + + + + | Vaccine: | | | | | Pneumococcal 19-64 | 3 | | | | (1 of 1 - PPSV23) | | | | + + + + + | Diabetic Eye Exam | | | | | | 5 | | | + + + + + | Diabetic Foot Exam | | | | | | 5 | | | + + + + + | Colorectal Cancer | | | | | Screening | 7 | | | | (Colonoscopy) | | | | + + + + + | Vaccine: Zoster (1 | | | | | of 2) | 7 | | | + + + + + | Statin Therapy | | | | | (optimal intensity) | 0 | | | + + + + + | Hemoglobin A1c | | 11/12/19 | | | Screening | 0 | 20, | | | | | 01/15/20 | | | | | 18, | | | | | 03/16/20 | | | | | 17 | | + + + + + | Vaccine: Influenza | | 08/18/20 | | | (Season Ended) | 0 | 05, | | | | | 07/24/20 | | | | | 02, | | | | | 08/09/20 | | | | | 01 | | + + + + + | Vaccine: | | 09/20/20 | | | Dtap/Tdap/Td (2 - | 7 | 17 | | | Td) | | | | + + + + + Results Not on filefrom Last 3 Months Additional Health Concerns + + + + | Infection | Noted Time | Resolved Time | + + + + | Methicillin-resistant Staphylococcus aureus | 12/15/2016 12:00 AM | | | | PDT | | + + + + Insurance + +--------+ +--------+ +---------+--------+ | Payer | Benefi | Subscriber | Effect | Phone | Address | Type | | | t Plan | ID | olvni | | | | | | / | | Dates | | | | | | Group | | | | | | + +--------+ +--------+ +---------+--------+ | [employer] | MODA | [id number] | | [phone] | | Medica | | MEDICAID HMO | HEALTH | | 019-Pr | 1 | | id | | | MDCD | | esent | | | | | | [place] | | | | | | + +--------+ +--------+ +---------+--------+ | HEALTH | IHS | [id number] | | | | Indemn | | SERVICE | YELLOW | | 020-Pr | | | ity | | | HAWK | | esent | | | | + +--------+ +--------+ +---------+--------+ | [employer] | MODA | [id number] | 10/02/19 | [phone] | | Medica | | MEDICAID HMO | HEALTH | | 20-Pre | 1 | | id | | | MDCD | | sent | | | | | | [place] | | | | | | + +--------+ +--------+ +---------+--------+ + +--------+ +--------+ + + | Guarantor Name | Accoun | Relation to | Date | Phone | Billing Address | | | t Type | Patient | of | | | | | | | | | | + +--------+ +--------+ + + | Kuldip Andrews | Person | Self | [birth year] | [address] | | | al/Fam | | 1964 | [phone] | [place], [place] | | | vikas | | | 1 (Home) | [address] | + +--------+ +--------+ + + | Kuldip Andrews | Person | Self | [birth year] | [address] | | | al/Fam | | 1964 | [phone] | [place], [place] | | | vikas | | | 1 (Home) | [address] | + +--------+ +--------+ + + Advance Directives + + + + + | Type | Date Recorded | Patient | Explanation | | | | Information Services Vice President | | + + + + + | Power of | | | | | Rip Sawyer | | | | + + + + + | Advance | 10/31/2019 11:22 | | | | Directive | AM | | | + + + + + + + + + + | Code Status | Date | Date | Comments | | | Activated | Inactivated | | + + + + + | Full Code | 10/31/2019 | 11/28/2019 | | | | 4:53 PM | 3:31 PM | | + + + + +
--- OUTSIDE RECORDS SUMMARY | ~2020-03-27 | XMS | Encounter Summary ---
Demographics + + + | Address | [address] | | | [place] [address] | + + + | Home Phone | | + + + | Preferred Language | Unknown | + + + | Marital Status | Single | + + + | Congregation Affiliation | 1077 | + + + [...] Team Providers + +------+ + | Care Trailer Park Manager Name | Role | Phone | + +------+ + | Estrella Light PA-C | PCP | | + +------+ + Reason for Visit +--------+--------+ + | Reason | Onset | Comments | | | Date | | +--------+--------+ + | Other | 09/22/ | | | | 2014 | | +--------+--------+ + Encounter Details +--------+ + + + + | Date | Type | Department | Care Team | Description | +--------+ + + + + | 09/22/ | Telephone | [facility] [place] | Avi Forde MD | Other | | 2014 | | GASTROENTEROLOGY | [address], [place] | | | | | [address] [place] | [address] | | | | | [address] [place], [place] | [address] | | | | | [address] | | | | | | [phone] | | | +--------+ + + + [...] this encounter Miscellaneous Notes Telephone Encounter - Erick Damon Cert MA - 09/22/2015 8:[address] Eula saini cancelled 09/21/2015, do not reschedule. Notes to scan. documented in this encounter Plan of Treatment Not on filedocumented as of this encounter Visit Diagnoses Not on filedocumented in this encounter"
--- OUTSIDE RECORDS SUMMARY | ~2020-03-27 | XMS | Encounter Summary ---
Demographics + + + | Address | [address] | | | [place] [address] | + + + | Home Phone | | + + + | Preferred Language | Unknown | + + + | Marital Status | Single | + + + | Jain Affiliation | 1077 | + + + | Race | Unknown | + + + | Ethnic Group | Unknown | + + + Author + + + | Author | [facility] | | | and [place] | + + + | Organization | [facility] | | | [...] Team Providers + +------+ + | Care Search Engineer Name | Role | Phone | + [...] | | type | [address] | [place], | | | | | | [place], | [place] [address] | | | | | | [place] [address] | Phone: | | | | | | Phone: | [phone] | | | | | | [phone] | Fax: | | | | | | Fax: | [phone] | | | | | | [phone] | | +--------+ + + + + + Reason for Visit + + + | Reason | Comments | + + + | Hematuria | | + + + Encounter Details +--------+ + + + + | Date | Type | Department | Care Team | Description | +--------+ + + + + | 10/16/ | Emergency | [facility] | Keenan Estrada MD | Hematuria, | | 2019 | | [facility] | [address] | unspecified type | | | | CENTER [address] | [place] | (Primary Dx) | | | | [place] | [address] | | | | | [address] | | | | | | [phone] | | | +--------+ + + + [...] + + +--------+ + + | [facility] - | Outpatient | Routin | Hematuria, [...] + | [facility] | [address] | [place]n [place] | [phone] | | [facility] | | [address] | | | - LABORATORY | | [...] - 1.030 | [facility] | | | [place], | | | [facility] | | [...] ST. | [address] | [place] | [phone] | | [facility] | | [address] | | | - LABORATORY | | [...]
--- OUTSIDE RECORDS SUMMARY | ~2020-03-27 | XMS | Encounter Summary ---
Demographics + + + | Address | [address] | | | [place] [address] | + + + | Home Phone | | + + + | Preferred Language | Unknown | + + + | Marital Status | Single | + + + | Shinto Affiliation | 1077 | + + + | Race | Unknown | + + + | Ethnic Group | Unknown | + + + Author + + + | Author | [facility] | | | and [place] | + + + | Organization | [facility] | | | [...] Team Providers + +------+ + | Care Offensive Coordinator Name | Role | Phone | + +------+ + | Estrella Light PA-C | PCP | | + +------+ + Reason for Visit +--------+--------+ + | Reason | Onset | Comments | | | Date | | +--------+--------+ + | Other | 11/28/ | care coordination | | | 2020 | | +--------+--------+ + | Other | 11/28/ | cre coordination- offer followup appt with DR Russell | | | 2020 | | +--------+--------+ + Encounter Details +--------+ + + + + | Date | Type | Department | Care Team | Description | +--------+ + + + + | 11/28/ | Telephone | [facility] | Sindy Arrington | Other (care | | 2019 | | INFECTIOUS DISEASE | L, RN | coordination); Other | | | | [address] | | (cre coordination- | | | | [place], [place] | | offer followup appt | | | | [address] | | with DR Russell) | | | | [phone] | | | +--------+ + + + [...] this encounter Miscellaneous Notes Telephone Encounter - Sindy Arrington RN - 12/04/2019 10:18 AM PSTID Hospital follow up appt has been scheduled for patient 12/18/[address] Russell. Electronically joanna d by Sindy Arrington RN at 12/04/2019 10:18 AM PSTTelephone Encounter - Sindy Arrington RN - 12/03/2019 9:58 AM PSTCalled patient, no answer left voice message to contact [facility] regarding scheduling ID hospital follow up appt. Will wait for patient to return call. Elec tronically signed by Sindy Arrington RN at 12/03/2019 10:00 AM PSTTelephone Encounter - Sindy Resendez RN - 11/28/2019 3:47 PM PSTFormatting of this note might be different fr om the original. MD Sindy Salazar RN Thanks for the update. Please offer clinic follow up. If he declines, please note in chart. - Previous Messages ----- Message ----- From: Sindy Arrington RN Sent: 11/28/2019 2:15 PM PST To: Sindy Arrington RN, Kalie Junior, * Subject: FW: Hospital follow up - IV antibiotics DR Russell - Patient finished antibiotics course in the hospital at [facility] today and was discharged afte r last dose 11/28. Will remove from iv tracking at this time. Does patient need ID clinic follow up? Pls advise Sindy Celis RN ----- Message ----- From: Rebeca Russell MD Sent: 11/07/2019 12:22 PM PST To: Sindy Arrington RN, Kalie Junior Subject: Hospital follow up - IV antibiotics Patient will be discharged on IV antibiotics. Please refer to my progress notes and orders for details. Please schedule hospital follow up around 11/28. Thanks, Called patient, message left for patient to call the office back to schedule ID hospital fo llow up appt. Patient completed IV antibiotics in the hospital and discharged 11/28. Electron ically signed by Sindy Arrington RN at 11/28/2019 3:49 PM PSTdocumented in this encounte r Plan of Treatment Not on filedocumented as [...]
--- OUTSIDE RECORDS SUMMARY | ~2020-03-27 | XMS | Encounter Summary ---
Demographics + + + | Address | [address] | | | [place] [address] | + + + | Home Phone | | + + + | Preferred Language | Unknown | + + + | Marital Status | Single | + + + | Mandaen Affiliation | 1077 | + + + | Race | Unknown | + + + | Ethnic Group | Unknown | + + + Author + + + | Author | [facility] | | | and [place] | + + + | Organization | [facility] | | | and [...] Team Providers + +------+ + | Care Underwear Hemmer Name | Role | Phone | + +------+ + | Estrella Light PA-C | PCP | | + +------+ + Encounter Details +--------+ + + + + | Date | Type | Department | Care Team | Description | +--------+ + + + + | 01/13/ | Hospital | [facility] | Cameron Lopez | | | 2018 - | Encounter | [facility] | MD Antolin Hill | | | | | CLINICAL DECISION | [place], [place] | | | 01/14/ | | UNIT [facility] | [address] | | | 2017 | | [place], [place] | | | | | | [address] | | | | | | [phone] | | | +--------+ + + + [...] note might be different from teto gomez. Discharge Summaries by Abhinav Winters DO at 01/14/18899 Author: Abhinav Winters DO Service: Hospitalist Author Type: Physician Filed: 01/14/181931 Date of Service: 01/14/18899 Status: Signed Production Editor: Abhinav Winters DO (Physician) The patient is 52 y.o. 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, presented to the emergency department of [facility] in [place] today with complaints of upper, sharp chest [...] 3 days. He also ran a fe [employer] last night, associated with chills and sweating. His 2-year-old grandchild has similar s ymptomsHe has been bringing up some phlegm, but he swallows it rather than spitting it out. Hence, he does not know the color of the sputum. The patient denies any history of previous heart problems, pneumonia, or bronchitis. He quinn s not smoke. In the emergency department at [facility], EKG showed T inversions in lead [...] Registered Nurse Filed: 01/14/18950 Date of Service: 01/14/18899 Status: Signed Production Editor: Elizabeth Galvez RN (Registered Nurse) Approached by another RN [...] staff would provide wheelchair ride out to [facility] and he could wait inside [facility] until ride arrived. He then stated "oh I see, you are just going to kick me out on the street now!" Explained to patient that was not being kicked out and that waiting in the lobby was where shaneka ramirez was welcome to wait inside until his ride arrived. He was then escorted, via wheelchair, to [facility] by escort and security staff. onver ruben Transaction, Provider Unknown - 01/13/2018 2:00 PM PDT Pharmacy Note by Rosalba Luo RPH at 01/13/18 1400 Author: Rosalba Luo RPH Service: Pharmacy Author Type: Pharmacist Filed: 01/13/18 1400 Date of Service: 01/13/18 1400 Status: Signed Production Editor: Rosalba Luo RPH (Pharmacist) Clinical Pharmacy Note: [...] 2:00 PM docume nted in this encounter H&P Notes Cameron Lopez MD - 01/13/2018 12:57 PM PDTFormatting of this note might be differe nt from the original. H&P by Cameron Lopez MD at 01/13/18 1257 Author: Cameron Lopez MD Service: Hospitalist Author Type: Physician Filed: 01/13/18 0867 Date of Service: 01/13/18 1257 Status: Addendum Production Editor: Cameron Lopez MD (Physician) Related Notes: Original Note by Cameron Lopez MD (Physician) filed at 01/13/[address] [facility] Service: Hospitalist Admission History & Physical Date of Admission: 01/13/2018 Requesting Physician: ED physician, [facility], [place]. Reason for Admission: Chest pain History Obtained From: patient CHIEF COMPLAINT: Cough, SOB and upper chest pain for 2 days. HISTORY OF PRESENT ILLNESS The patient is 52 y.o. 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, presented to the emergency department of [facility] in [place] today with complaints of upper, sharp chest [...] not smoke. In the emergency department at [facility], EKG showed T inversions in lead [...] attack at the time he was born. REVIEW OF SYSTEMS Review of Systems Constitutional: Positive for chills, diaphoresis and fever. HENT: Positive for congestion, rhinorrhea and sore throat. Eyes: Negative. Respiratory: Positive for cough, chest tightness and shortness of breath. Cardiovascular: Positive for chest pain. Negative for palpitations and leg swelling. Gastrointestinal: Negative. Endocrine: Negative. Musculoskeletal: Negative. Skin: Positive for wound. Neurological: Negative. Hematological: Negative. Psychiatric/Behavioral: Negative. Past Medical History Diagnosis Date Diabetes mellitus, type 2 (HCC) Hypertension Past Surgical History Procedure Laterality Date CATARACT EXTRACTION TOE AMPUTATION Left 12/15/2016 Procedure: TOE - AMPUTATION; Surgeon: Jerry Redmond DPM; Location: [facility] MAIN OR; Service: Podiatry; Laterality: Left; TONSILLECTOMY VASECTOMY Bilateral Allergies Allergen Reactions Penicillins Hives Prescriptions Prior to Admission Medication Sig Dispense Refill Last Dose insulin aspart (NOVOLOG FLEXPEN) 100 UNIT/ML injection Inject 15 Units into the skin 3 (three) times daily before meals. 12/13/2016 at Unknown time insulin glargine (LANTUS SOLOSTAR) 100 UNIT/ML injection Inject 20 Units into the skin nightly. 12/13/2016 at Unknown time lisinopril (ZESTRIL) 20 MG tablet Take 1 tablet by mouth daily. 30 tablet 11 Past Week at Unknown time loperamide (IMODIUM) 2 MG capsule Take 2 mg by mouth 4 (four) times daily as needed for Diarrhea. Past Week at Unknown time sildenafil (VIAGRA) 50 MG tablet Take 1 tablet by mouth as needed for Erectile Dysfunct ion. 10 tablet 11 Family History Problem Relation Age of Onset Diabetes type II Maternal Grandfather Social History Social History Marital status: Single Spouse name: N/A Number of children: N/A Years of education: N/A Occupational History Not on file. Social History Main Topics Smoking status: Never Smoker Smokeless tobacco: Never Used Alcohol use No Drug use: No Sexual activity: Yes Partners: Female Other Topics Concern Not on file Social History Narrative No narrative on file PHYSICAL EXAM Vital Signs: BP 115/74 (BP Location: Right upper arm) | Pulse 94 | Temp 98.4 F (36.9 C) (Oral) | Resp 20 | SpO2 100% Physical Exam Constitutional: He is oriented to person, place, and time. He appears well-developed and we ll-nourished. No distress. HENT: Head: Normocephalic. Mouth/Throat: No oropharyngeal exudate. Eyes: Pupils are equal, round, and reactive to light. No scleral icterus. Neck: Neck supple. No JVD present. Cardiovascular: Normal rate, regular rhythm and intact distal pulses. Exam reveals no gall op and no friction rub. No murmur heard. Pulmonary/Chest: Effort normal and breath sounds normal. No respiratory distress. He has no wheezes. He has no rales. He exhibits no tenderness. Abdomina/Gl: Soft. Bowel sounds are normal. He exhibits no distension and no mass. There is no tenderness. There is no rebound and no guarding. No hernia. Musculoskeletal: Left BKA Neurological: He is alert and oriented to person, place, and time. No cranial nerve deficit . Skin: Skin is warm and dry. He is not diaphoretic. Small I cm circular stage II ulcer over medial-dorsal aspect of right mid foot with mild dr narayanan. Psychiatric: He has a normal mood and affect. His behavior is normal. Judgment and thought content normal. DATA Workup at other facilities as follows: Troponin 0.081, the normal range being less than 0.01. EKG shows normal sinus rhythm, with T inversions in lead III and aVF. No previous EKG is av ailable for comparison. Chemistry shows glucose of 184, BUN 19, creatinine 1.16, sodium 134, potassium 4.1, chlorid e 101, CO2 of 25, calcium 9.3, bilirubin 2.9, AST 16, ALT 15, alkaline phosphatase 117, lipa se 11. CBC shows white count of 9.7, hemoglobin 17, hematocrit 49.5, platelet count 216. PROBLEM LIST Principal Problem: Other chest pain Active Problems: Type 2 diabetes mellitus, with long-term current use of insulin [facility] Viral upper respiratory tract infection Essential hypertension Skin ulcer of right foot, limited to breakdown of skin ([facility]) ASSESSMENT & PLAN 1. Chest pain, most likely atypical in nature and secondary to upper respiratory tract infe ction. Pain occurs only when the patient coughs or takes a deep breath, and there is no radi ation of pain. However, he has borderline elevation of troponin and initial EKG done at [facility] showed T inversions in lead III and aVF. However, repeat EKG done in [facility] revealed normal sinus rhythm, without any ST or T-wave changes, and no T inversio ns were identified in the inferior leads. However, the patient has multiple risk factors for coronary artery disease including hypertension and diabetes mellitus. Hence, we will trend troponin. I will start the patient on aspirin and metoprolol, as well as Lipitor. He already received a therapeutic dose of Lovenox at the emergency department in [place]. The kendall ent currently is chest pain free. If troponin shows an upward trend and repeat EKG shows any changes, then we will consult Dr. Galicia, who was already notified by physician at [facility]. If acute MD is ruled out, then we will proceed with nuclear medicine samantha cardial perfusion studies. 2. Upper respiratory tract infection. This is most likely viral in nature and we will treat symptomatically. We will order chest x-ray. 3. Type 2 diabetes mellitus. He uses Lantus and NovoLog at home, and I will continue both. We will check hemoglobin A1c to assess long-term glycemic control. 4. Essential hypertension. The patient is on lisinopril that I will continue, as his blood pressure is normal here. We will also order metoprolol. 5. Right foot ulcer going on for 4 weeks now. The patient denies any pain and he states mariaelena t this happened because of ill-fitting shoes. We will seek wound care consult. 6. DVT prophylaxis with subcutaneous Lovenox that will be started in the evening, as the brayden alberts received a therapeutic dose of Lovenox this morning. Disposition: Observation Code Status: Full Code Primary Care Physician: Estrella Lopez MD 01/13/2018 documented in this encounter Miscellaneous Notes Plan of Care - Conversion Transaction, Provider Unknown - 01/14/2018 2:26 AM PDT Plan of Care by Sean Gaitan RN at 01/14/18 0226 Author: Sean Gaitan RN Service: (none) Author Type: Registered Nurse Filed: 01/14/18225 Date of Service: 01/14/18225 Status: Signed Production Editor: Sean Gaitan RN (Registered Nurse) Problem: Pain Goal: Patient's pain/discomfort is manageable Assess and monitor patient's pain using appropriate pain scale. Collaborate with interdisci plinary team and initiate plan and interventions as ordered. Re-assess patient's pain level approximately 1-2 hours after pain management intervention. Premedicate as needed. Outcome: Progressing Patient uses pain scale appropriately Problem: Safety Goal: Patient will be injury free during hospitalization Assess and monitor vitals signs, neurological status including level of consciousness and o rientation. Assess patient's risk for falls and implement fall prevention plan of care and i nterventions per hospital policy. Ensure arm band on, uncluttered walking paths in room, adequate room lighting, call light a nd overbed table within reach, bed in low position, wheels locked, side rails up per policy, and non-skid footwear provided. Outcome: Progressing Patient uses call light appropriately lan o f Care - Conversion Transaction, Provider Unknown - 01/13/2018 4:28 PM PDTFormatting of thi s note might be different from the original. Plan of Care by Jenny Willingham RN at 01/13/181627 Author: Jenny Willingham RN Service: (none) Author Type: Registered Nurse Filed: 01/13/181628 Date of Service: 01/13/181627 Status: Signed Production Editor: Jenny Willingham RN (Registered Nurse) Problem: Pain Goal: Patient's pain/discomfort is manageable Assess and monitor patient's pain using appropriate pain scale. Collaborate with interdisci plinary team and initiate plan and interventions as ordered. Re-assess patient's pain level approximately 1-2 hours after pain management intervention. Premedicate as needed. Outcome: Progressing Patient denies pain docume nted in this encounter Plan of [...] | + +--------+ + + + | ECG 12 LEAD | Routin | 01/14/2018 | | Results for this | | | e | 4:59 AM | | procedure are in the [...] | + +--------+ + + + | ECG 12 LEAD | Routin | 01/13/2018 | | Results for this | | | e | 12:38 PM | | procedure are in the [...] + + + | KULDIP Partida RED ELK XR CHEST 1 VIEW 01/14/2018 7:43 AM [...] + + + | Red Blood | 5.47 | 4.20 - 5.70 | EXTERNAL | | | Cells | | M/uL | LAB | | | Counted | | | | | + + + + + + | Hemoglobin | 15.8 | 13.2 - 17.0 | [...] | | | Basophils | performed at [facility], [address] | K/uL | LAB | | | | [address], | | | | | | [place] [address] | | | | + + + [...] + + + + + + | TSH | 0.540Comment: Testing | 0.450 - 5.100 | EXTERNAL | | | | performed at [facility], [address] | uIU/mL | LAB | | | | [address], | | | | | | [place] [address] | | | | + + + [...] EXTERNAL | | | | performed at [facility], [address] | | LAB | | | | [address], | | | | | | [place] [address] | | | | + + + [...] | | | | [place] [address] | | | | + + + [...] | EXTERNAL | | | A1c | Israeli Diabetes | | LAB | | | [...] | | | | | performed at [facility], [address] | | | | | | [facility], | | | | | | [place] [address] | | | | + + + [...] + + + + + + | LDL, | 63Comment: Testing | mg/dL | EXTERNAL | | | Calculated | performed at [facility], [address] | | LAB | | | | [address], | | | | | | [place] [address] | | | | + + + [...] | | | | | | at [facility], [address] | | | | | | [address], | | | | | | [place] [address] | | | | + + + [...] | | | Fingerstick | performed at [facility];[address] | | LAB | | | | [address];[place], [place] | | | | | | [address] | | | | + + + + + + + + | Specimen | + + | | + + + +---------+ + + | Performing | Address | City/State/Zipcode | Phone Number | | Organization | | | | + +---------+ + + | EXTERNAL LAB | | | | + +---------+ + + ECG 12 lead (01/14/2018 4:59 AM PDT) + + + + + + | Component | Value | Ref Range | Performed | Pathologist | | | | | At | Signature | + + + + + + | DIAGNOSIS: | Normal sinus rhythmLeft | | EXTERNAL | | | | axis deviationAbnormal | | LAB | | | | ECGWhen compared with | | | | | | ECG of 13-JAN-2018 | | | | | | 12:38,No significant | | | | | | change was | | | | | | foundConfirmed by | | | | | | Dereck Galicia MD | | | | | | (69) on 01/14/2018 | | | | | | 3:40:20 PM | | | | + + + + + + + + | Specimen | + + | | + + + + + | Narrative | Performed At | + + + | Historically converted procedure from [facility] Epic environment | EXTERNAL LAB | + + + + +---------+ + [...] EXTERNAL | | | | performed at [facility];[address] | | LAB | | | | Fabio Man;[place] | | | | | | [address] | | | | + + + [...] | | | Fingerstick | performed at [facility];[address] | | LAB | | | | [facility];[place], [place] | | | | | | [address] | | | | + + + [...] | | | | | | ACUTE MD Testing | | | | | | performed at [facility];[address] | | | | | | [facility];[place], [place] | | | | | | [address] | | | | + + + [...] EXTERNAL | | | | performed at [facility];[address] | | LAB | | | | [facility];[place], [place] | | | | | | [address] | | | | + + + [...] | | | Fingerstick | performed at [facility];[address] | | LAB | | | | [address];[place] | | | | | | [address] | | | | + + + [...] | | | Fingerstick | performed at [facility];[address] | | LAB | | | | [address];[place] | | | | | | [address] | | | | + + + [...] | | | | | | ACUTE MD Testing | | | | | | performed at [facility];[address] | | | | | | [facility];[place], [place] | | | | | | [address] | | | | + + + [...] EXTERNAL | | | | performed at [facility];[address] | | LAB | | | | [facility];[place], [place] | | | | | | [address] | | | | + + + [...] TV A Star: 0.46 m/s TV Dec [place]: 2.14 m/s2 TV Dec Time: | | | 223.61 ms TV E Star: 0.47 m/s TV E/A Ratio: 1.03 | | | Teacher Visually Impaired: DIDI Authenticated by: Dereck Galicia Report | | | Date/Time: 01-13-2018 17:21:41 | | + + + + + | Procedure Note | + + | Glenn Valle Conversion - 05/15/2019 8:55 AM PDT Patient Name: Esvin [facility] of | | : 1965 Performing Physician: Dereck | | Korimerla INDICATIONS----- | | ------abnormal ekg CONCLUSIONS 1. [...] (A-L): | | 16.36 ml/m2LAAs A2C: 13.19 [id number] A-L A2C: 34.91 mlLALs A2C: 4.23 cmLAAs A4C: | | 11.37 uk5PRKMI A-L A4C: 29.21 mlLALs A4C: 3.75 cmRAAd: 13.57 [id number] A-L: | | 35.22 mlRAEDV MOD: 30.46 mlRALd: 4.44 cmTAPSE: 1.67 cmHR: 82.18 BPMAV maxPG: | | 3.19 mmHgAV meanP.99 mmHgAV Vmax: 0.89 m/Simran Vmean: 0.69 m/Simran VTI: 18.16 | | cmAVA Vmax: 3.34 cm2AVA (VTI): 3.51 [id number] Vmax: 0.00 cm2/m2AVAI (VTI): 0.00 | | cm2/m2LVCI Dopp: 2.41 l/houf0AHTK Dopp: 5.00 l/minHR: 78.46 BPMLVOT maxP.34 | [...] 3 mmHgTV A Star: 0.46 m/sTV Dec [place]: 2.14 m/s2TV Dec Time: 223.61 | | msTV E Star: 0.47 m/sTV E/A Ratio: 1.03 Teacher Visually Impaired: DIDIAuthenticated by: Dereck | | GrayimerlaReport Date/Time: 01-13-2018 17:21:41 IMPRESSION: 1. Overall left [...] A Star: 0.46 m/s | |TV Dec [place]: 2.14 m/s2 | |TV Dec Time: 223.61 ms | |TV E Star: 0.47 m/s | |TV E/A Ratio: 1.03 | | | |Teacher Visually Impaired: GD | |Authenticated by: Dereck Galicia | [...] | | | Fingerstick | performed at [facility];[address] | | LAB | | | | [address];[place] | | | | | | [address] | | | | + + + [...] | | | | | | ACUTE MD Testing | | | | | | performed at [facility];[address] | | | | | | [address];[place], [place] | | | | | | [address] | | | | + + + + + + + + | Specimen | + + | Blood specimen | | (specimen) | + + + +---------+ + + | Performing | Address | City/State/Zipcode | Phone Number | | Organization | | | | + +---------+ + + | EXTERNAL LAB | | | | + +---------+ + + ECG 12 lead (01/13/2018 12:38 PM PDT) + + + + + + | Component | Value | Ref Range | Performed | Pathologist | | | | | At | Signature | + + + + + + | DIAGNOSIS: | Normal sinus | | EXTERNAL | | | | rhythmNormal ECGNo | | LAB | | | | previous ECGs | | | | | | availableConfirmed by | | | | | | Dereck Galicai MD | | | | | | (69) on 01/13/2018 | | | | | | 9:46:57 PM | | | | + + + + + + + + | Specimen | + + | | + + + + + | Narrative | Performed At | + + + | [facility] | EXTERNAL LAB | + + + + +---------+ + [...] | | | PCRAbnormal Testing performed at [facility];[address] [place] [address];[place] [address] | | + + + + +---------+ [...]
--- OUTSIDE RECORDS SUMMARY | ~2020-03-27 | XMS | Encounter Summary ---
Demographics + + + | Address | [address] | | | [place] [address] | + + + | Home Phone | | + + + | Preferred Language | Unknown | + + + | Marital Status | Single | + + + | Congregation Affiliation | 1077 | + + + | Race | Unknown | + + + | Ethnic Group | Unknown | + + + Author + + + | Author | [facility] | | | and [place] | + + + | Organization | [facility] | | [...] Team Providers + +------+ + | Care Family Resource Management Professor Name | Role | Phone | + +------+ + | Estrella Light PA-C | PCP | | + +------+ + Encounter Details +--------+ + + + + | Date | Type | Department | Care Team | Description | +--------+ + + + + | 09/22/ | Anesthesia | [facility] | Ilya Dodge | | | 2014 | Event | MED CTR MP INTRA OP | MD Ebonie [address] | | | | | [address] | [facility] | | | | | [place] | [place] [address] | | | | | [address] | [phone] | | | | | [phone] | | | +--------+ + + + [...] blood administrations on file. | + + +-------+ + +---------+ | Type | Details | Placement | Removal | +-------+ + +---------+ | Wound | 10/31/19; 1746; Y; Left; lateral; | 10/31/191746 by | | | | residual limb, LE; abrasion | Naila Wright, | | | | | RN | | +-------+ + +---------+ documented in this encounter Social History + [...] + + documented as of this encounter OR Notes Anesthesia Preprocedure Evaluation - Ilya Dodge MD - 09/21/2015 11:22 AM PSTForma tting of this note might be different from the original. ANESTHESIA PREANESTHESIA EVALUATION Kuldip Smith 50 y.o. male 1965 [id number] Procedure(s): COLONOSCOPY (N/A Rectum) Medical history, anesthesia, medications, allergy, NPO status verified histories reviewed. Labs reviewed. Review of Systems / Med History Anesthesia History (-) PONV, difficult intubation, malignant hyperthermia . Cardiovascular (+) hypertension.(-) CAD, angina. Pulmonary No acute pulmonary concerns. (-) asthma, COPD, sleep apnea. Neurology (+) neuropathy. Renal (-) end-stage renal disease Endocrine (+) Diabetes:type 1, NIDDM. Anesthesia Physical Exam Anesthesia Plan documented in thi s encounter Plan of Treatment Not on filedocumented as of this encounter Visit Diagnoses Not on filedocumented in this encounter"
--- OUTSIDE RECORDS SUMMARY | ~2020-03-27 | XMS | Encounter Summary ---
Demographics + + + | Address | [address] | | | [place] [address] | + + + | Home Phone | | + + + | Preferred Language | Unknown | + + + | Marital Status | Single | + + + | Protestant Affiliation | 1077 | + + + [...] Team Providers + +------+ + | Care Dogman/Woman Name | Role | Phone | + +------+ + | Estrella Light PA-C | PCP | | + +------+ + Encounter Details +--------+ + + + + | Date | Type | Department | Care Team | Description | +--------+ + + + + | 01/13/ | Hospital | [facility] | Conversion | Diagnosis unknown | | 2018 | Encounter | CONVERSION DEP [address] | Transaction, | | | | | [address] | Provider Unknown | | | | | [place], [place] | | | | | | [address] | (Fax) | | | | | [phone] | | | +--------+ + + + [...] Daily. | | | | | | (NIMISHA SUMMERS) | | | | | | | [...] mLs by | 2 | 0 | 06/07/20 | | | sulfate-potassium | mouth See [...] Valle Conversion - 05/15/2019 8:55 AM PDT This is [...]
--- OUTSIDE RECORDS SUMMARY | ~2020-03-27 | XMS | Encounter Summary ---
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 Summar | | | yNo | | | record | | | ed | | | inpati | | | ent | | | visits | | | . Care | | | | | | TeamPr | | | ovider | | | | | | Specia | | | lty | | | Phone | | | Fax | | | Servic | | | e | | | Dates | | | BOURRE | | | T, | | | TEENA | | | N, PAC | | | | | | Physic | | | rm | | | Assist | | | ant: | | | Surgic | | | al | | | Sep | | | 11, | | | 2018 - | | | | | | Curren | | | t | | | SIEDER | | | S, | | | ELIZAB | | | ETH J, | | | PA-C | | | Physic | | | rm | | | Assist | | | ant | | | Barrett 1, | | | 2019 | | | - | | | Curren | | | t | | | Unknow | | | n | | | Clinic | | | /Cente | | | r | | | (541) | | | [phone] | | | 30 | | | Nando | | | 10, | | | 2020 - | | | | | | Curren | | | t | | | [place], | | | | | | Bradle | | | y | | | Bert | | | MD | | | Treatm | | | ent | | | Curren | | | t | | | TEENA | | | N | | | BAURRE | | | T, PA | | | Primar | | | y Care | | | (541) | | | | | | [phone] | | | 30 | | | (541) | | | [phone] | | | 72 Mar | | | 15, | | | 2017 - | | | | | | Curren | | | t | | | Colle[facility] | | | tive | | | Portal | | | This | | | patien | | | t has | | | regist | | | ered | | | at the | | | | | | Prov[facility] | | | ence | | | [facility] | | [facility] | | | | | | Emer[facility] | | | ncy | | | Depart | | | ment | | | For | | | more | | | inform | | | ation | | | visit: | | | | | | https: | | | //prov | | | .colle | | | ctivem | | | edical | | | [email or web address] | | | [email or web address]/ | | | [id number] | | | [phone] | | | [phone] | | | [email or web address] | | | [email or web address] | | | [id number] | | | | | | PLEASE | | | NOTE: | | | 1. | | | Any | | | care | | | recomm | | | endati | | | ons | | | and | | | other | | | clinic | | | al | | | inform | | | ation | | | are | | | provid | | | ed as | | | guidel | | | chon | | | or for | | | | | | histor | | | ical | | | purpos | | | es | | | only, | | | and | | | provid | | | ers | | | should | | | | | | exerci | | | se | | | their | | | own | | | clinic | | | al | | | judgme | | | nt | | | when | | | provid | | | ing | | | care. | | | 2. | | | You | | | may | | | only | | | use | | | this | | | inform | | | ation | | | for | | | purpos | | | es of | | | treatm | | | ent, | | | paymen | | | t or | | | health | | | care | | | operat | | | ions | | | activi | | | ties, | | | and | | | subjec | | | t to | | | the | | | limita | | | tions | | | of | | | applic | | | able | | | Collec | | | tive | | | Polici | | | es. | | | 3. | | | You | | | should | | | | | | consul | | | t | | | direct | | | ly | | | with | | | the | | | organi | | | zation | | | that | | | provid | | | ed a | | | care | | | guidel | | | ine or | | | other | | | | | | clinic | | | al | | | histor | | | y with | | | any | | | questi | | | ons | | | about | | | additi | | | onal | | | inform | | | ation | | | or | | | accura | | | cy or | | | comple | | | teness | | | of | | | inform | | | ation | | | provid | | | ed.? | | | 2020 | | | Colle[facility] | | | tive | | | Medica | | | l | | | Techn[employer] | | | logies | | | , Inc[employer] | | | - | | | [email or web address] | | | llecti | | | vemedi | | | [email or web address] | | | m | +---+--------+ documented in this encounter Results CT Maxillofacial wo Contrast (10/13/2019 1:12 PM [facility]) + + | Specimen | + + | | + + + + + | Narrative | Performed At | + + + | CT MAXILLOFACIAL WO CONTRAST 10/13/2019 1:09 PM HISTORY:?Facial | [facility] | | pain. COMPARISON: None. PROTOCOL: Thin section axial CT images | | | of the maxillofacial structures were obtained with coronal and | | | sagittal reformations. FINDINGS: Imaged portions of the brain: | | | Normal. Orbits: The patient is status post bilateral cataract | | | surgery. Paranasal sinuses: There is mucosal thickening of the | | | bilateral frontal and ethmoid sinuses. There is narrowing of the | | | infundibulum of the right ostiomeatal complex. A mucous retention | | | cyst and mucosal thickening is seen of the left maxillary sinus to a | | | greater degree than the right side. Maxilla and mandible: Normal. | | | Zygoma/zygomatic arches and pterygoid plates: Normal. | | | Temporal bones: Normal. Nasal bones: Asymmetric swelling of the | | | soft tissues anterior to the left alveolar ridge of the maxilla is | | | noted. This is noted beneath the left nasolabial fold. No osseous | | | erosions are noted. There is questionable mild thickening of the | | | left nasal ala relative to the right side. Craniocervical | | | junction and imaged portions of the cervical spine: Normal. | | | IMPRESSION- 1. No acute facial fracture. 2. Mucosal thickening is | | | seen along the ethmoid and maxillary sinuses. 3. Soft tissue fullness | | | is noted anterior to the left alveolar ridge and along the left | | | nasolabial fold which could suggest inflammation. A preliminary | | | report was sent by [facility] with no significant discrepancy on | | | 10/13/2019 1:38 PM. Dictated and Signed by: Herve Ibrahim MD | | | Electronically signed: 10/13/2019 1:57 PM | | + + + + + | Procedure Note | + + | Leonard, Rad Results In - 10/13/2019 2:[address] MAXILLOFACIAL WO CONTRAST 10/13/2019 | | 1:09 PMHISTORY:?Facial pain.COMPARISON: None.PROTOCOL: Thin section axial CT images of | | the maxillofacial structures wereobtained with coronal and sagittal | | reformations.FINDINGS:Imaged portions of the brain: Normal.Orbits: The patient is status | | post bilateral cataract surgery.Paranasal sinuses: There is mucosal thickening of the | | bilateral frontaland ethmoid sinuses. There is narrowing of the infundibulum of | | theright ostiomeatal complex. A mucous retention cyst and mucosalthickening is seen of | | the left maxillary sinus to a greater degree thanthe right side.Maxilla and mandible: | | Normal.Zygoma/zygomatic arches and pterygoid plates: Normal.Temporal bones: Normal.Nasal | | bones: Asymmetric swelling of the soft tissues anterior to theleft alveolar ridge of | | the maxilla is noted. This is noted beneath theleft nasolabial fold. No osseous | | erosions are noted. There isquestionable mild thickening of the left nasal ala relative | | to theright side.Craniocervical junction and imaged portions of the cervical | | spine:Normal.IMPRESSION- 1. No acute facial fracture.2. Mucosal thickening is seen along | | the ethmoid and maxillary sinuses.3. Soft tissue fullness is noted anterior to the left | | alveolar ridgeand along the left nasolabial fold which could suggest inflammation.A | | preliminary report was sent by [facility] with no significant discrepancyon | | 10/13/2019 1:38 PM.Dictated and Signed by: Herve Ibrahim MD Electronically signed: | | 10/13/2019 1:57 PM | | | |Maxilla and mandible: Normal. | | | |Zygoma/zygomatic arches and pterygoid plates: Normal. | | | |Temporal bones: Normal. | | | |Nasal bones: Asymmetric swelling of the soft tissues anterior to the | |left alveolar ridge of the maxilla is noted. This is noted beneath the | |left nasolabial fold. No osseous erosions are noted. There is | |questionable mild thickening of the left nasal ala relative to the | |right side. | | | |Craniocervical junction and imaged portions of the cervical spine: | |Normal. | | | |IMPRESSION- | |1. No acute facial fracture. | |2. Mucosal thickening is seen along the ethmoid and maxillary sinuses. | |3. Soft tissue fullness is noted anterior to the left alveolar ridge | |and along the left nasolabial fold which could suggest inflammation. | | | |A preliminary report was sent by [place] with no significant discrepancy | |on 10/13/2019 1:38 PM. | | | |Dictated and Signed by: Herve Ibrahim MD | | Electronically signed: 10/13/2019 1:57 PM | + + + +---------+ + + | Performing | Address | City/State/Zipcode | Phone Number | | Organization | | | | + +---------+ + + | [facility] | | | | + +---------+ + + Comprehensive Metabolic Panel (10/13/2019 1:06 PM PST) + + + + + + | Component | Value | Ref Range | Performed | Pathologist | | | | | At | Signature | + + + + + + | Na | 133 (L) | 136 - 145 | [facility] | | | | | mmol/L | [facility] | | | | | | [facility] | | | | | [facility] - | | | | | | [facility]ATORY | | + + + + + + | K | 3.8 | 3.4 - 5.1 | [facility] | | | | | mmol/L | [facility] | | | | | | [facility] | | | | | | [facility] - | | | | | | LABORATORY | | + + + + + + | Cl | 100 | 98 - 107 mmol/L | [facility] | | | | | | [facility] | | | | | | [facility] | | | | | | [facility] - | | | | | | LAB[facility]ATORY | | + + + + + + | CO2 | 26 | 20 - 31 mmol/L | [facility] | | | | | | [facility] | | | | | | [facility] | | | | | | [facility] - | | | | | | LAB[facility]ATORY | | + + + + + + | Anion Gap | 7 | 3 - 16 mmol/L | [facility] | | | | | | [facility] | | | | | | [facility] | | | | | | [facility] - | | | | | | LAB[facility]ATORY | | + + + + + + | Glucose | 155 (H) | 60 - 106 mg/dL | [facility] | | | | | | [facility] | | | | | | [facility] | | | | | | [facility] - | | | | | | LABORATORY | | + + + + + + | BUN | 16 | 9 - 23 mg/dL | [facility] | | | | | | [facility] | | | | | | [facility] | | | | | | [facility] - | | | | | | LABORATORY | | + + + + + + | Creatinine | 1.21 | 0.70 - 1.30 | [facility] | | | | | mg/dL | [facility] | | | | | | [facility] | | | | | | [facility] - | | | | | | LABORATORY | | + + + + + + | eGFR if not | >60Comment: GLOMERULAR | >=60 | [facility] | | | | FILTRATION | mL/min/1.73m2 | [facility] | | | [facility]OLIVIAN | RATE,ESTIMATED | | MEDICAL | | | | mL/min/1.11h1Cezy than | | CENTER - | | | | 60 Chronic kidney | | LABORATORY | | | | disease,if found over a | | | | | | 3-month period.Less than | | | | | | 15 Kidney failureFor | | | | | | | | | | | | Americans,multiply the | | | | | | calculated GFR by 1.21. | | | | | | | | | | + + + + + + | Calcium | 9.0 | 8.7 - 10.4 | [facility] | | | | | mg/dL | [facility] | | | | | | [facility] | | | | | | [facility] - | | | | | | LABORATORY | | + + + + + + | Albumin | 4.1 | 3.2 - 4.8 g/dL | [facility] | | | | | | [facility] | | | | | | [facility] | | | | | | [facility] - | | | | | | LABORATORY | | + + + + + + | Bilirubin | 1.5 (H) | 0.3 - 1.2 mg/dL | [facility] | | | Total | | | [facility] | | | | | | [facility] | | | | | | [facility] - | | | | | | LABORATORY | | + + + + + + | Total | 7.5 | 5.7 - 8.2 g/dL | [facility] | | | Protein | | | [facility] | | | | | | [facility] | | | | | | C[facility] - | | | | | | LABORATORY | | + + + + + + | AST | 17 | 0 - 34 U/L | [facility] | | | | | | [facility] | | | | | | [facility] | | | | | | C[facility] - | | | | | | LABORATORY | | + + + + + + | ALT | 9 (L) | 10 - 49 U/L | [facility] | | | | | | [facility] | | | | | | [facility] | | | | | | [facility] - | | | | | | LABORATORY | | + + + + + + | Alkaline | 105 | 46 - 116 U/L | [facility] | | | Phosphatase | | | [facility] | | | | | | [facility] | | | | | | C[facility] - | | | | | | LABORATORY | | + + + + + + | Globulin | 3.4 | 2.1 - 3.8 g/dL | [facility] | | | | | | [facility] | | | | | | [facility] | | | | | | [facility] - | | | | | | LABORATORY | | + + + + + + | Albumin/Loni | 1.2 | 0.8 - 1.9 | [facility] | | | bulin Ratio | | | [facility] | | | | | | [facility] | | | | | | [facility] - | | | | | | LABORATORY | | + + + + + + | BUN/Creatin | 13.2 | | [facility] | | | ine Ratio | | | [facility] | | | | | | [facility] [...] + | [facility] | [address] | [place] | [phone] | | [facility] | | [address] | | | - LABORATORY | | | | + + + + + CBC with Differential (10/13/2019 1:06 PM PST) + + + + + + | Component | Value | Ref Range | Performed | Pathologist | | | | | At | Signature | + + + + + + | WBC | 11.6 (H) | 4.0 - 11.0 K/uL | [facility] | | | | | | [facility] | | | | | | [facility] | | | | | | [facility] - | | | | | | LAB[facility]ATORY | | + + + + + + | RBC | 3.59 (L) | 4.30 - 5.70 | [facility] | | | | | M/uL | [facility] | | | | | | [facility] | | | | | | [facility] - | | | | | | LABORATORY | | + + + + + + | Hemoglobin | 9.7 (L) | 13.5 - 18.0 | [facility] | | | | | g/dL | [facility] | | | | | | [facility] | | | | | | [facility] - | | | | | | LABORATORY | | + + + + + + | Hematocrit | 28.7 (L) | 40.0 - 51.0 % | [facility] | | | | | | [facility] | | | | | | [facility] | | | | | | [facility] - | | | | | | LABORATORY | | + + + + + + | MCV | 79.9 (L) | 83.0 - 101.0 fL | [facility] | | | | | | [facility] | | | | | | [facility] | | | | | | [facility] - | | | | | | LAB[facility]ATORY | | + + + + + + | MCH | 27.0 (L) | 28.0 - 35.0 pg | [facility] | | | | | | [facility] | | | | | | [facility] | | | | | | [facility] - | | | | | | LABORATORY | | + + + + + + | MCHC | 33.8 | 32.0 - 36.0 | [facility] | | | | | g/dL | [facility] | | | | | | [facility] | | | | | | [facility] - | | | | | | LABORATORY | | + + + + + + | RDW-CV | 14.1 | <15.0 % | [facility] | | | | | | [facility] | | [facility] | | | [facility] | | | | | | [facility] - | | | | | | LABORATORY | | + + + + + + | RDW-SD | 41.0 | 35.1 - 46.3 fL | [facility] | | | | | | [facility] | | | | | | [facility] | | | | | | [facility] - | | | | | | LABORATORY | | + + + + + + | Platelet | 288 | 140 - 440 K/uL | [facility] | | | Count | | | [facility] | | | | | | [facility] | | | | | | [facility] - | | | | | | LABORATORY | | + + + + + + | MPV | 9.0 | 6.5 - 12.4 fL | [facility] | | | | | | [facility] | | | | | | [facility] | | | | | | [facility] - | | | | | | LABORATORY | | + + + + + + | % | 84.5 (H) | 45.0 - 82.0 % | [facility] | | | Neutrophils | | | [facility] | | | | | | [facility] | | | | | | C[facility] - | | | | | | LABORATORY | | + + + + + + | % | 6.9 (L) | 20.0 - 45.0 % | [facility] | | | Lymphocytes | | | [facility] | | | | | | [facility] | | | | | | [facility] - | | | | | | LABORATORY | | + + + + + + | % Monocytes | 7.0 | 4.0 - 12.0 % | [facility] | | | | | | [facility] | | | | | | [facility] | | | | | | [facility] - | | | | | | LAB[facility]ATORY | | + + + + + + | % | 0.8 | 0.0 - 5.0 % | [facility] | | | Eosinophils | | | [facility] | | | | | | [facility] | | | | | | C[facility] - | | | | | | LABORATORY | | + + + + + + | % Basophils | 0.5 | 0.0 - 1.0 % | [facility] | | | | | | [facility] | | | | | | [facility] | | | | | | [facility] - | | | | | | LABORATORY | | + + + + + + | % Immature | 0.3 | 0.0 - 0.4 % | [facility] | | | Granulocyte | | | [facility] | | | s | | | MEDICAL | | | | | | CENTER - | | | | | | LABORATORY | | + + + + + + | Absolute | 9.84 (H) | 1.80 - 8.50 | [facility] | | | Neutrophils | | K/uL | [facility] | | | | | | [facility] | | | | | | [facility] - | | | | | | LABORATORY | | + + + + + + | Absolute | 0.80 | 0.60 - 3.20 | [facility] | | | Lymphocytes | | K/uL | [facility] | | | | | | [facility] | | | | | | [facility] - | | | | | | LABORATORY | | + + + + + + | Absolute | 0.81 | 0.00 - 1.00 | [facility] | | | Monocytes | | K/uL | [facility] | | | | | | [facility] | | | | | | [facility] - | | | | | | LABORATORY | | + + + + + + | Absolute | 0.09 | 0.00 - 0.40 | [facility] | | | Eosinophils | | K/uL | [facility] | | | | | | [facility] | | | | | | [facility] - | | | | | | LABORATORY | | + + + + + + | Absolute | 0.06 | 0.00 - 0.10 | [facility] | | | Basophils | | K/uL | [facility] | | | | | | [facility] | | | | | | C[facility] - | | | | | | LABORATORY | | + + + + + + | Absolute | 0.04 (H) | 0.00 - 0.03 | [facility] | | | Immature | | K/uL | [facility] | | | Granulocyte | | | MEDICAL | | | s | | | CENTER - | | | | | | LABORATORY | | + + + + + + | % nRBC | 0 | 0 - 2 per 100 | [facility] | | | | | WBCs | [facility] | | | | | | [facility] | | | | | | CENTER - | | | | | | LABORATORY | | + + + + + + | Absolute | 0.00 | 0.00 - 0.01 | [facility] | | | nRBC | | K/uL | [facility] | | | | [...] ST[facility] | [address] | [place] | [phone] | | [facility] | | [address] | | | - LABORATORY | | | | + + + + + documented in this encounter Visit Diagnoses + + | Diagnosis | + + | Epistaxis, recurrent - Primary | + + | Facial pain, acute Headache | + + | Acute recurrent frontal sinusitis Acute frontal sinusitis | + + documented in this encounter Administered Medications + +--------+ +------+------+------+ | Medication Order | MAR | Action | Dose | Rate | Site | | | Action | Date | | | | + +--------+ +------+------+------+ | HYDROmorphone (DILAUDID) | Given | 10/13/19 | 1 mg | | | | injection 1 mg 1 mg, | | 20 12:55 | | | | | Intravenous, ONCE, 10/13/19 at | | PM PST | | | | | 1240, For 1 dose | | | | | | + +--------+ +------+------+------+ +---+---+ | | | +---+---+ documented in this encounter Additional Health Concerns + + + + | Infection | Noted Time | Resolved Time | + + + + | Methicillin-resistant Staphylococcus aureus | 12/15/2016 12:00 AM | | | | PDT | | + + + + documented as of this encounter
--- OUTSIDE RECORDS SUMMARY | ~2020-03-27 | XMS | Encounter Summary ---
Demographics + + + | Address | [address] | | | [place] [address] | + + + | Home Phone [...] Providers + +------+ + | Care Customer Strategy Manager Name | Role | Phone | [...] | diarrhea | | | | [address] [place], [place] | [address] | | | | | [address] | | | | | | [phone] | | | +--------+ + + + [...]
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
--- OUTSIDE RECORDS SUMMARY | ~2020-03-27 | XMS | Encounter Summary ---
Demographics + + + | Address | [address] | | | [place] [address] | + + + | Home Phone [...] Team Providers + +------+ + | Care Nut Chopper Name | Role | Phone | + [...] antibody | [address], | | | | | positive | [place], [place] | [place] [address] | | | | | Chronic | [address] [place] | [place], | | | | | diarrhea | [place], [place] | [place] [address] | | | | | Procedures | [address] | Phone: | | | | | [place] | Phone: | [phone] | | | | | COLONOSCOPY | [phone] | Fax: | | | | | FLX DX | Fax: | [phone] | | | | | W/COLLJ SPEC | [phone] | | | | | | WHEN PFRMD | | | | | | | CA | | | | | | | COLONOSCOPY | | | | | | | W/BIOPSY | | | | | | | SINGLE/MULTI | | | | | | | PLE CA | | | | | | | COLSC FLX | | | | | | | W/RMVL OF | | | | | | | TUMOR POLYP | | | | | | | LESION SNARE | | | | | | | TQ CA | | | | | | | ESOPHAGOGAST | | | | | | | RODUODENOSCO | | | | | | | PY TRANSORAL | | | | | | | DIAGNOSTIC | | | | | | | CA EDG | | | | | | [...] | + +--------+ + | Appointment | 03/08/ | egd/colon | | | 2016 | | + +--------+ + Encounter Details +--------+ + + + + | Date | Type | Department | Care Team | Description | +--------+ + + + + | 03/08/ | Telephone | [facility] | Avi Forde MD | Appointment | | 2015 | | GASTROENTEROLOGY | [address], [place] | (egd/colon ) | | | | [address] [place] | [address] [place], [place] | | | | | [address] [place], [place] | [address] | | | | | [address] | | | | | | [phone] | | | +--------+ + + + [...] Telephone Encounter - Chantell Srivastava RN - 03/08/2016 3:01 PM PDTContacted pt to charlie edule procedure; he apologized for not making the last one but his aunt was in the hospital with heart matters; pt agreed to keep this appointment; scheduled on 04/12/[address] Darcie Forde for IVCS egd/colon due to chronic diarrhea and Gliadin IGA positive; 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 umented in this encounter Plan of Treatment + [...]
--- OUTSIDE RECORDS SUMMARY | ~2020-03-27 | XMS | Encounter Summary ---
Demographics + + + | Address | [address] | | | [place] [address] | + + + | Home Phone [...] Team Providers + +------+ + | Care Motorized Squad Lieutenant Name | Role | Phone | + +------+ + | Estrella Light PA-C | PCP | | + +------+ + Encounter Details +--------+---------+ + + + | Date | Type | Department | Care Team | Description | +--------+---------+ + + + | 04/12/ | Surgery | [facility] | Avi Forde MD | EGD / COLONOSCOPY - | | 2015 | | MED CTR MP INTRA OP | [address], [place] | DM (insulin) | | | | [address] | [address] [place] | | | | | [place] | [phone] | | | | | [address] | | | | | | [phone] | | | +--------+---------+ + + + [...]
--- OUTSIDE RECORDS SUMMARY | ~2020-03-27 | XMS | Encounter Summary ---
Demographics + + + | Address | [address] | | | [place] [address] | + + + | Home Phone | | + + + | Preferred Language | Unknown | + + + | Marital Status | Single | + + + | Latter-Day Affiliation | 1077 | + + + | Race | Unknown | + + + | Ethnic Group | Unknown | + + + Author + + + | Author | [facility] | | | and [place] | + + + | Organization | [facility] | | | [...] Team Providers + +------+ + | Care Senior Technical Writer Name | Role | Phone | + +------+ + | Estrella Light PA-C | PCP | | + +------+ + Encounter Details +--------+ + + + + | Date | Type | Department | Care Team | Description | +--------+ + + + + | 09/04/ | Abstract | [facility] | Avi Forde MD | | | 2014 | | GASTROENTEROLOGY | [address] [place] [address] [place], [place] | | | | | [address] [place] | [address] [place] | | | | | [address] [place], [place] | [address] | | | | | [address] | | | | | | [phone] | | | +--------+ + + + [...]
--- OUTSIDE RECORDS SUMMARY | ~2020-03-27 | XMS | Encounter Summary ---
Demographics + + + | Address | [address] | | | [place] [address] | + + + | Home Phone [...] Providers + +------+ + | Care Hand Spring Repairer Helper Name | Role | Phone | + +------+ + PCP | Unavailable | + +------+ + Encounter Details +--------+ + + + + | Date | Type | Department | Care Team | Description | +--------+ + + + + | 07/19/ | Hospital | [facility] | | | | 1993 | Encounter | MED CTR MP INTRA OP | | | | | | [address] | | | | | | [place] | | | | | | [address] | | | | | | [phone] | | | +--------+ + + + [...]
--- OUTSIDE RECORDS SUMMARY | ~2020-03-27 | XMS | Encounter Summary ---
Demographics + + + | Address | [address] | | | [place] [address] | + + + | Home Phone [...] Team Providers + +------+ + | Care Aircraft Powertrain Repairer Name | Role | Phone | [...] + + | 04/12/ | Telephone | [facility] | Avi Forde MD | [facility] | | 2015 | | GASTROENTEROLOGY | [address], [place] | | | | | [address] [place] | [address] [place] | | | | | [address] [place], [place] | [address] | | | | | [address] | | | | | | [phone] | | | +--------+ + + + [...]
--- OUTSIDE RECORDS SUMMARY | ~2020-03-27 | XMS | Encounter Summary ---
Demographics + + + | Address | [address] | | | [place] [address] | + + + | Home Phone [...] Team Providers + +------+ + | Care Dope House Operator Helper Name | Role | Phone | [...] + + | 12/05/ | Telephone | [facility] | Libby Albarado | Medication Prior | | 2019 | | [address] | Authorization | | | | [place] | | (yannius) | | | | [address] | | | | | | [phone] | | | +--------+ + + + [...] - 12/06/2019 11:55 AM [facility]Call[facility] lantus [facility] PA. They do not need a PA at this time as pt took to [facility] to get filled. d ocumented in this [...]
--- OUTSIDE RECORDS SUMMARY | ~2020-03-27 | XMS | Encounter Summary ---
Demographics + + + | Address | [address] | | | [place] [address] | + + + | Home Phone [...] Team Providers + +------+ + | Care Recreation Manager Name | Role | Phone | + +------+ + | Estrella Light PA-C | PCP | | + +------+ + Encounter Details +--------+ + + + + | Date | Type | Department | Care Team | Description | +--------+ + + + + | 05/12/ | Orders Only | [facility] | Provider, | | | 2019 | | SYSTEM GENERIC OP | [address] | | | | | [address] | [place] | | | | | [address] [place], [place] | [place] [address] | | | | | [address] | | | | | | [phone] | | | +--------+ + + + [...]
--- OUTSIDE RECORDS SUMMARY | ~2020-03-27 | XMS | Encounter Summary ---
Demographics + + + | Address | [address] | | | [place] [address] | + + + | Home Phone [...] Providers + +------+ + | Care Rn Anesthesiology Name | Role | Phone | + +------+ + | Estrella Light PA-C | PCP | | + +------+ + Encounter Details +--------+ + + + + | Date | Type | Department | Care Team | Description | +--------+ + + + + | 12/14/ | Hospital | [facility] | [place], | Osteomyelitis of | | 2017 - | Encounter | [facility] | MD Pavel [address] | foot, left, acute | | | | CARE FLOOR [address] | [address] | ([facility]); Uncontrolled | | 12/20/ | | [address] | [place] [address] | type 2 diabetes | | 2017 | | [place], [place] | [phone] | mellitus with | | | | [address] | | hyperglycemia, | | | | [phone] | | unspecified long | | | | | | term insulin use | | | | | | status ([facility]); Renal | | | | | | [...] 1933 Date of Service: 12/20/161538 Status: Addendum Weather Teacher: Bunny Chaney MD (Physician) Related Notes: Original Note by Bunny Chaney MD (Physician) filed at 12/26/16 0644 [facility] Service: Hospitalist Physician Discharge Summary Patient ID: Kuldip Gong [id number] y.o. 1965 Admit date: 12/14/2016 Discharge [...] been approved, which should be given from [facility] ec until further approval from [...] up: Estrella Light PA-C [address] [place] [address] Rebeca Russell MD [address] [facility] [phone] Schedule an appointment as soon as possible for a visit in 10 days Dictation and international guest coordinator or software, [employer], used which may contain error for similar [...] - AMPUTATION; Surgeon: Walter Fernandez DPM; Location: [facility] OR; Service: Podiatry; Laterality: Left; [...] Management by Jenny Vaughan RN at 12/20/16 2369 Author: Jenny Vaughan RN Service: (none) Author Type: Registered Nurse Filed: 12/20/16 8004 Date of Service: 12/20/161538 Status: Signed Weather Teacher: Jenny Vaughan RN (Registered Nurse) 4207 - Received call from [facility] stating they are now unable to accept prosper alberts due to a "freeze on admits". They are aware patient has been discharged and is en rou te to home. They are still unable to accept. Call placed to [facility] OPP rega rding need for services. They state pt will need to arrange wound care/dressing changes thr ough his PCP per insurance requirements. Voicemail left for Coby at [facility] inic to return call. Will need to call back in morning to schedule appointment as clinic is currently closed. onver ruben Transaction, Provider Unknown - 12/20/2016 3:39 PM PDT Case Management by Mirlande Prescott RN at 12/20/16 4119 Author: Mirlande Prescott RN Service: (none) Author Type: Registered Nurse Filed: 12/21/16 0808 Date of Service: 12/20/16 1539 Status: Signed Weather Teacher: Mirlande Prescott RN (Registered Nurse) 0800: Tc to pt's PCP, Coby Light, with [facility], to updat e about [facility] not being able to admit pt. Coby states she and Charlotte will work on getting pt the appropriate wound vac care he needs, they are going to try and get pt into O P wound therapy with [facility] or maybe to OP in . Coby states she will als o call [facility] as to when they can admit pt under their services. Maribel onver ruben Transaction, Provider Unknown - 12/20/2016 1:03 PM PDT Progress Notes by Rachael Molina RN at 12/20/16 1303 Author: Rachael Molina RN Service: Wound/Ostomy Care Author Type: Registered Nurse Filed: 12/20/16 1311 Date of Service: 12/20/16 1303 Status: Signed Weather Teacher: Rachael Moilna RN (Registered Nurse) Wound care in to switch patient out to portable wound vac unit. This is a sol vac on l [facility]an from [facility]. Explained to patient when his [...] protection. Hospital vac dc'd in [facility] express: #[phone] Rachael Molina RN, CWON 12/20/2016 1:10 PM onver ruben Transaction, Provider Unknown - 12/20/2016 11:34 AM PDT Case Management by Mirlande Prescott RN at 12/20/16 4830 Author: Mirlande Prescott RN Service: (none) Author Type: Registered Nurse Filed: 12/20/16 7684 Date of Service: 12/20/16 5701 Status: Addendum Weather Teacher: Mirlande Prescott RN (Registered Nurse) Related Notes: Original Note by Mirlande Prescott RN (Registered Nurse) filed at 12/20/16 114 9 Per rounding with pt, he will be d/c home today. Pt states his mother will be providing tra nsportation home. Wound vac [facility] have been [facility] about [facility], pt may not be able t o be admitted until . Pt's wound dressing is due Monday. Tc to Angie with wound care, it's not ideal that pt's dressing doesn't get changed until , but it is ok to wait. Dr Chaney was notified and agrees with plan. Tc to Coby [phone] and Charlotte [phone] [facility]/mannie cabezas nd left mssgs of pt's d/c Today. Faxed AVS to [facility] Maribel qra Cisneros, PT - 12/20/2016 10:07 AM PDTFormatting of this note might be different from th ashley original. Therapy Progress Note by Karina Zabala, PT at 12/20/16 1007 Author: Karina Zabala PT Service: (none) Author Type: Physical Therapist Filed: 12/20/16 1037 Date of Service: 12/20/16 1007 Status: Signed Weather Teacher: Karina Zabala PT (Physical Therapist) 12/20/16 1007 [...] (none) Author Type: Physical Therapist Filed: 12/19/16 0066 Date of Service: 12/19/161645 Status: Signed Weather Teacher: Natalia Marte PT (Physical Therapist) 12/19/161645 PT Last Visit PT Received On 12/19/16 Reason for Treatment Other (comment) (L foot osteomyelitis) Requires PT Follow Up Awaiting tx order Follow up PT Only? Yes (Assistive device assessment) Focus for Next Treatment Equipment Trial;Stair Training (bilateral axillary crutches and stair training) PT Eval/Reassessment Date 12/19/16 Assistance Required 1 person Slot Key Person Needed No Home Environment Type of Home Home one story Home Exterior Layout 1-3 steps (2 JEISON) Home Interior Layout Lives on main level with bedroom/bathroom Bathroom Shower/Tub Tub/shower unit Bathroom Toilet Raised Bathroom Equipment Grab bars outside of shower/bath;Raised toilet seat Bathroom Accessibility Not accessible Home Equipment Cane single point;Crutches-axillary Prior Function Level of [place] Independent with ADLs;Independent with IADLs;Modified independent wi [...] Eval/Reassessment Date 12/19/16 Assistance Required 1 person Slot Key Person Needed No Precautions LE Precaution(s) LLE Precautions/WB [...] Filed: 12/20/16 0639 Date of Service: 12/19/16 1148 Status: Signed Weather Teacher: Rebeca Russell MD (Physician) [facility] Service: Infectious Disease Progress Note Hospital [...] Dec 15 2016 9:30AM Referring Provider Line: [phone] ID: [id number] MRI foot left without contrast [[id number]] Impression 1. Recent amputation of the LEFT 4th toe. 2. No radiographic evidence of residual osteomyelitis in the remaining ossicles of the LEF T forefoot. 3. Moderately extensive vascular calcifications. X-ray foot left [[id number]] PROBLEM LIST Principal Problem: Osteomyelitis (HCC) Active [...] Date of Service: 12/19/16 110 Status: Signed Weather Teacher: Dell Archer DO (Physician) PROGRESS NOTE 12/19/2016 for Kuldip Partida Selma Sarah on the hospitalist service. Admitted with L [...] 12/19/163 Date of Service: 12/19/16914 Status: Addendum Weather Teacher: Jenny Vaughan RN (Registered Nurse) Related Notes: Original Note by Jenny Vaughan RN (Registered Nurse) filed at 12/19/16 1 [phone] - [facility]. She wi ll be following patient once he is discharged and requests to be notified when patient is di scharging. Her voicemail is secure and she gives permission to leave a detailed message, if needed. She is also aware [facility] will be following for home health services. [facility] to update on patient status and they are able to accept patient. Face to face order faxed ([phone]) Charlotte - [facility] RN [phone] Alicia with [facility] notified of wound vac placement. Auth form signed by hospitalist and faxed to Alicia. Lilly with [facility] Care notified of patient discharging on oral antibiotics. onver ruben Transaction, Provider Unknown - 12/18/2016 6:45 PM PDT Nurse Progress Note by Gerber Hay RN at 12/18/161844 Author: Gerber Hay RN Service: (none) Author Type: Registered Nurse Filed: 12/18/161847 Date of Service: 12/18/161844 Status: Signed Weather Teacher: Gerber Hay RN (Registered Nurse) Pt resting [...] 12/18/16933 Date of Service: 12/18/16928 Status: Addendum Weather Teacher: Dell Archer DO (Physician) Related Notes: Original [...] 12/18/16899 Date of Service: 12/18/16854 Status: Signed Weather Teacher: Walter Fernandez DPM (Doctor of Podiatric Medicine) [facility] Service: Podiatry Progress Note Hospital Day: [...] home health care. Dr. David DPM in [place] take s care of this patient and [...] 12/18/16845 Date of Service: 12/18/16845 Status: Signed Weather Teacher: Destini Javier RPH (Pharmacist) Day 5 Vanco [...] 1108 Date of Service: 12/18/16820 Status: Signed Weather Teacher: Rebeca Russell MD (Physician) [facility] Service: Infectious Disease Progress Note Hospital [...] Dec 15 2016 9:30AM Referring Provider Line: [phone] ID: [id number] MRI foot left without contrast [[id number]] Impression 1. Recent amputation of the LEFT 4th toe. 2. No radiographic evidence of residual osteomyelitis in the remaining ossicles of the LEF T forefoot. 3. Moderately extensive vascular calcifications. X-ray foot left [[id number]] PROBLEM LIST Principal Problem: Osteomyelitis (HCC) Active [...] 12/17/162246 Date of Service: 12/17/162246 Status: Signed Weather Teacher: Jihan Jacinto RPH (Pharmacist) Clinical Pharmacy Note: [...] (none) Author Type: Registered Nurse Filed: 12/17/16 2281 Date of Service: 12/17/161742 Status: Signed Weather Teacher: Gerber Hay RN (Registered Nurse) Wound vac [...] Notes by Rebeca Russell MD at 12/17/16 9832 Author: Rebeca Russell MD Service: Infectious Disease Author Type: Physician Filed: 12/17/16 0440 Date of Service: 12/17/16 8557 Status: Addendum Weather Teacher: Rebeca Russell MD (Physician) Related Notes: Original Note by Rebeca Russell MD (Physician) filed at 12/17/16 4247 [facility] Service: Infectious Disease Progress Note Hospital [...] Dec 15 2016 9:30AM Referring Provider Line: [phone] ID: 106 MRI foot left without contrast [[id number]] Impression 1. Recent amputation of the LEFT 4th toe. 2. No radiographic evidence of residual osteomyelitis in the remaining ossicles of the LEF T forefoot. 3. Moderately extensive vascular calcifications. X-ray foot left [[id number]] PROBLEM LIST Principal Problem: Osteomyelitis (HCC) Active [...] Notes by Walter Fernandez DPM at 12/17/16 3676 Author: Walter Fernandez DPM Service: Podiatry Author Type: Doctor of Podiatric [facility] cine Filed: 12/17/16 1401 Date of Service: 12/17/161405 Status: Signed Weather Teacher: Walter Fernandez DPM (Doctor of Podiatric Medicine) [facility] Service: Podiatry Progress Note Hospital Day: [...] Date of Service: 12/17/16 1144 Status: Signed Weather Teacher: Gerber Hay RN (Registered Nurse) Pt had [...] Date of Service: 12/17/16 1059 Status: Signed Weather Teacher: Dell Archer DO (Physician) PROGRESS NOTE 12/17/2016 [...] 12/17/16834 Date of Service: 12/17/16834 Status: Signed Weather Teacher: Destini Javier RPH (Pharmacist) Day 4 Vanco [...] 0308 Date of Service: 12/17/16307 Status: Signed Weather Teacher: Jihan Jacinto RPH (Pharmacist) Clinical Pharmacy Note: [...] 12/16/161719 Date of Service: 12/16/161709 Status: Signed Weather Teacher: Walter Fernandez DPM (Doctor of Podiatric Medicine) [facility] Service: Podiatry Progress Note Hospital Day: [...] Notes by Rebeca Russell MD at 12/16/16 6535 Author: Rebeca Russell MD Service: Infectious Disease Author Type: Physician Filed: 12/16/16 1606 Date of Service: 12/16/16 1247 Status: Signed Weather Teacher: Rebeca Russell MD (Physician) [facility] Service: Infectious Disease Progress Note Hospital [...] Dec 15 2016 9:30AM Referring Provider Line: [phone] ID: [id number] MRI foot left without contrast [[id number]] Impression 1. Recent amputation of the LEFT 4th toe. 2. No radiographic evidence of residual osteomyelitis in the remaining ossicles of the LEF T forefoot. 3. Moderately extensive vascular calcifications. X-ray foot left [[id number]] PROBLEM LIST Principal Problem: Osteomyelitis (HCC) Active [...] (none) Author Type: Registered Nurse Filed: 12/16/16 7327 Date of Service: 12/16/16 1129 Status: Signed Weather Teacher: Jenny Vaughan RN (Registered Nurse) 12/16/16 1128 Discharge Planning Evaluation Admitting Diagnosis osteomyelitis Readmission No Living Arrangements Parent Support Systems Parent;Family members Type of Residence Private residence House type House-1 story Steps to enter 2 Independent with ADL's Yes Independent with Mobility Yes Mental Status Oriented Prior functional status not employed, independent Power of Hand Flesher No Anticipated Discharge Plan Post Acute Care [...] PCP is: Estrella Light PA-C Patient's insurance: Medicare/[employer] Coverage concerns: None Medication coverage/concerns: None Community resources utilized / needed: TBD pending pt progress and treatment plan. Sascha garcia need home health services along with IV abx. Discussed with patient and he states und erstanding. Referral sent to [facility] for nursing services as patient lives in [place]. Options for home IV abx services provided to pt/family and they do not have a preference. Referral to [facility] made and Tefna will follow. Pt/family requested I notify Coby at the [facility] of pt status as she ar ranges services for them. Contacted Coby and provided current discharge plan. If there is a change in plan, Coby requests to be notified as she will continue to follow patient after discharge. She also states pt will be followed by their community health nurse (Charlotte ) who works alongside [facility]. [facility] [phone] Assistance in transportation: Pt's family is able [...] Date of Service: 12/16/16 1012 Status: Signed Weather Teacher: Dell Archer DO (Physician) PROGRESS NOTE 12/16/2016 [...] Management by Jenny Vaughan RN at 12/15/16 6618 Author: Jenny Vaughan RN Service: (none) Author Type: Registered Nurse Filed: 12/15/16 1254 Date of Service: 12/15/16 1248 Status: Signed Weather Teacher: Jenny Vaughan RN (Registered Nurse) Attempted to [...] Note by Jihan Jacinto RPH at 12/15/16 2496 Author: Jihan Jacinto RPH Service: Pharmacy Author Type: Pharmacist Filed: 12/15/16405 Date of Service: 12/15/16405 Status: Signed Weather Teacher: Jihan Jacinto RPH (Pharmacist) Clinical Pharmacy Note: [...] 12/15/16404 Date of Service: 12/15/16404 Status: Signed Weather Teacher: Jihan Jacinto RPH (Pharmacist) Clinical Pharmacy Note: [...] Date of Service: 12/15/16 0132 Status: Signed Weather Teacher: Pavel Gallegos MD (Physician) [facility] Service: Hospitalist Admission History & Physical [...] decided to go to the ED at [place] for further assessment. The patient denies any [...] Component Value Units Date/Time Complete Metabolic Panel [[id number]] (Abnormal) Collected: 12/15/16 0119 Specimen Information: Blood [...] 14 U/L EGFR >60 mL/min/1.73m2 POCT glucose [[id number]] (Abnormal) Collected: 12/15/16 012 GLUCOSE,POC SCREEN 258 (H) mg/dL Updated: 12/15/16 012 Blood Culture Set 1 [[id number]] Collected: 12/14/162139 Specimen Information: Blood from Blood Updated: 12/15/16 002 Blood Culture Set 2 [[id number]] Collected: 12/14/162239 Specimen Information: Blood from Blood Updated: 12/15/16 0028 Septic Lactic Acid [[id number]] Collected: 12/14/162239 LACTIC ACID 1.0 mmol/L Updated: 12/14/162348 POCT glucose [[id number]] (Abnormal) Collected: 12/14/16 233 GLUCOSE,POC SCREEN 172 (H) mg/dL Updated: 12/14/162335 Ketones,Serum [[id number]] Collected: 12/14/162144 KETONES,SERUM NEGATIVE Updated: 12/14/162229 CBC w Auto Diff [[id number]] (Abnormal) Collected: 12/14/162144 Specimen Information: Blood Updated: [...] AGREES WITH AUTOMATED RESULTS. Complete Metabolic Panel [[id number]] (Abnormal) Collected: 12/14/162144 Specimen Information: Blood Updated: [...] U/L EGFR 57 (L) mL/min/1.73m2 C-Reactive Protein [[id number]] (Abnormal) Collected: 12/14/162144 Specimen Information: Blood Updated: 12/14/162219 CRP 16.0 (H) mg/dL Sedimentation Rate (ESR) [[id number]] (Abnormal) Collected: 12/14/162144 Specimen Information: Blood Updated: [...] Doctor of Podiatric [facility] Filed: 12/16/16 1615 Date of Service: 12/15/161943 Status: Signed Weather Teacher: Walter Fernandez DPM (Doctor of Podiatric Medicine) [...] second metatarsophalangeal joint and head. SURGEON Walter Fernandez, SHYAM YARN SKEINS EXAMINER None utilized. ANESTHESIA Endotracheal general, local ankle [...] partial thickness and full thickness. A pulse Ensygnia was used to irrigate tissue to exsanguinate [...] receive medical treatment and infection control. P/ Jocelynn/adelina/[id number] WALTER FERNANDEZ DPM documented in t his encounter Consult Notes Conversion Transaction, Provider Unknown - 12/19/2016 2:10 PM PDTFormatting of this note m ight be different from the original. Consults by Rachael Molina RN at 12/19/161409 Author: Rachael Molina RN Service: Wound/Ostomy Care Author Type: Registered Nurse Filed: 12/19/16 1418 Date of Service: 12/19/161409 Status: Signed Weather Teacher: Rachael Molina RN (Registered Nurse) [facility] Service: Wound Care Hospital Day: LOS: 4 [...] week, Next dressing change due Discharge plan: [facility]. ANDREY Vargas working on getting patient a helen rity wound vac until patient's insurance approves a home portable unit. Thank you for this consult. Please call if there are any additional questions. Rachael Molina RN, CWON 2:10 PM 12/19/2016 onver ruben Transaction, Provider Unknown - 12/17/2016 4:53 PM PDT Consults by Rachael Molina RN at 12/17/16 2928 Author: Rachael Molina RN Service: Wound/Ostomy Care Author Type: Registered Nurse Filed: 12/17/16 9659 Date of Service: 12/17/161652 Status: Addendum Weather Teacher: Rachael Molina RN (Registered Nurse) Related Notes: Original Note by Rachael Molina RN (Registered Nurse) filed at 12/17/16 1 707 Consult Orders: 1. Wound Care Evaluation and Treat [[id number]] ordered by Walter Fernandez DPM at 1722 [facility] Service: Wound Care Consult Note Hospital Day: [...] 1639 Date of Service: 12/15/161618 Status: Signed Weather Teacher: Walter Fernandez DPM (Doctor of Podiatric Medicine) [facility] Service: Podiatry Initial Consult Note Date of Admission: 12/14/2016 Reason for Consultation: osteomyelitis left 4th ray with sepsis. Requesting Physician: Dr. Kwabena Archer, Hospitalist History Obtained From: patient CHIEF COMPLAINT: Infected left foot HISTORY OF PRESENT ILLNESS The patient is 51 y.o. male with significant past medical history of ulcer that got infecte d and now is severe. Patient was seen in [place] by Dr. Raf DPM who told him [...] Consult* by Rebeca Russell MD at 12/15/16 1259 Author: Rebeca Russell MD Service: Infectious Disease Author Type: Physician Filed: 12/15/16 1803 Date of Service: 12/15/16 1256 Status: Addendum Weather Teacher: Rebeca Russell MD (Physician) Related Notes: Original Note by Rebeca Russell MD (Physician) filed at 12/15/16 1800 [facility] Service: Infectious Disease Initial Consult Note Date [...] Dec 15 2016 9:30AM Referring Provider Line: [phone] ID: 106 MRI foot left without contrast [[id number]] PROBLEM LIST Principal Problem: Osteomyelitis (HCC) Active [...] Date of Service: 12/15/16 1057 Status: Signed Weather Teacher: Chase Edouard RN (Registered Nurse) Consult Orders: 1. Wound Care Evaluation and Treat [[id number]] ordered by Pavel Gallegos MD at 0313 [facility] Service: Wound Care Consult Note Hospital Day: [...] Notes by Erick Beatty RN at 12/14/16 4792 Author: Erick Beatty RN Service: (none) Author Type: Registered Nurse Filed: 12/15/16 0023 Date of Service: 12/14/16 2342 Status: Signed Weather Teacher: Erick Beatty RN (Registered Nurse) Pt given crackers and OJ per PROSPER Gerard RN 12/15/1622 onver ruben Transaction, Provider Unknown - 12/14/2016 10:27 PM PDT ED Notes by Trevor Cristobal at 12/14/162226 Author: Trevor Cristobal Service: Emergency Department Author Type: Kapok Machine Operator Filed: 12/14/162228 Date of Service: 12/14/162226 Status: Signed Weather Teacher: Trevor Cristobal (Valve Grinder) Received records from [facility]. Given to JENNIFER Dickson. Trevor Cristobal 12/14/162228 onver ruben Transaction, Provider Unknown - 12/14/2016 10:07 PM PDT ED Notes by Trevor Cristobal at 12/14/162206 Author: Trevor Cristobal Service: Emergency Department Author Type: Kapok Machine Operator Filed: 12/14/162207 Date of Service: 12/14/162206 Status: Signed Weather Teacher: Trevor Cristobal (Valve Grinder) Spoke with [facility] Emergency Department. They will send records from this past weekend to our facility. Trevor Cristobal 12/14/162207 onver ruben Transaction, Provider Unknown - 12/14/2016 9:53 PM PDT ED Notes by Robbie Rizo RN at 12/14/162152 Author: Robbie Rizo RN Service: (none) Author Type: Registered Nurse Filed: 12/15/16 0016 Date of Service: 12/14/162152 Status: Addendum Weather Teacher: Robbie Rizo RN (Registered Nurse) Related Notes: Original Note by Robbie Rizo RN (Registered Nurse) filed at 12/14/16 2 350 Patient states he "walked a lot" on 12/07, noticed a blister and pain. Was [facility] on 12/09 and received IV antibiotics and rx for PO antibiotics. Wound has progressed since. Ciprofloxacin 500mg bid, clindamycin 300mg qid. Robbie Rizo RN 12/15/16 0016 onver ruben Transaction, Provider Unknown - 12/14/2016 9:32 PM PDT ED Notes by Robbie Rizo RN at 12/14/162131 Author: Robbie Rizo RN Service: (none) Author Type: Registered Nurse Filed: 12/14/162132 Date of Service: 12/14/162131 Status: Signed Weather Teacher: Robbie Rizo RN (Registered Nurse) "I was [...] PA-C Service: Emergency Department Author Type: Physician Watch And Clock Repairer - Certified Filed: 12/15/16 0844 Date of Service: 12/14/162120 Status: Attested Weather Teacher: Yessi Zamora PA-C (Physician Watch And Clock Repairer - Certified) Cosigner: Bridger Murillo DO at 12/18/162102 Attestation signed by Bridger Murillo DO at 12/18/162102 I have reviewed the note and supervised the mid-level provider. Procedures [facility] 7TH FLOOR [facility] History of Present Illness Patient Identification [...] of antibiotics x2 days by pcp from [facility] in [place] , with out Relief. Pt state he fell on porch and hit left foot 6 days ago Hx of insulin dep diabetics. Hasnt used insulin a in a couple of days doesn't check his sug ars Uses novolog 12 units before meals, lantus 25 units q hs Denies fevers chills or other symptoms PCP; Estrella CH[facility] Endo: Darcie Past Medical History Diagnosis Date [...] been taking his insulin, [facility] pcp [facility] and told come here for furthe [...] Value Ref Range Date/Time Complete Metabolic Panel [[id number]] (Abnormal) Collected: 12/15/16 011 Order Status: Completed [...] >60 >60 mL/min/1.73m2 Blood Culture Set 1 [[id number]] Collected: 12/14/162139 Order Status: Sent Specimen Information: Blood from Blood Updated: 12/15/1627 Blood Culture Set 2 [[id number]] Collected: 12/14/162239 Order Status: Sent Specimen Information: Blood from Blood Updated: 12/15/1627 Septic Lactic Acid [[id number]] Collected: 12/14/162239 Order Status: Completed Updated: 12/14/162348 LACTIC ACID 1.0 0.4 - 2.0 mmol/L POC Arterial Blood Gas [[id number]] (Abnormal) Collected: 12/14/162256 Order Status: Completed Updated: [...] 93 (L) 95 - 98 % Ketones,Serum [[id number]] Collected: 12/14/162144 Order Status: Completed Updated: 12/14/162229 KETONES,SERUM NEGATIVE NEGATIVE CBC w Auto Diff [[id number]] (Abnormal) Collected: 12/14/162144 Order Status: Completed Specimen [...] AGREES WITH AUTOMATED RESULTS. 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) Renal insufficiency [...] 12/15/161945 Date of Service: 12/15/161940 Status: Signed Weather Teacher: Walter Fernandez DPM (Doctor of Podiatric Medicine) [facility] Service: Podiatry Operative Note Pre-operative Diagnosis: Osteomyelitis 4th ray left foot Post-operative Diagnosis: Same Procedure(s): Amputation 4th ray left Surgeon: WALTER FERNANDEZ DPM Watch And Clock Repairer(s): none Anesthesia: General endotrachial anesthesia Estimated Blood [...] Date of Service: 12/15/16 1257 Status: Addendum Weather Teacher: Dell Archer DO (Physician) Related Notes: Original [...] | | | Fingerstick | performed at [facility];[address] | | LAB | | | | [address];[place], [place] | | | | | | [address] | | | | + + + [...] EXTERNAL | | | | performed at [facility];[address] | | LAB | | | | [address];[place] | | | | | | [address] | | | | + + + [...] EXTERNAL | | | | performed at [facility];888 | K/uL | LAB | | | | [address];[place] | | | | | | [address] | | | | + + + + + + | Red Blood | 4.00 (L)Comment: Testing | 4.20 - 5.70 | EXTERNAL | | | Cells | performed at [facility];888 | M/uL | LAB | | | Counted | [address];[place] | | | | | | [address] | | | | + + + + + + | Hemoglobin | 11.6 (L)Comment: Testing | 13.2 - 17.0 | EXTERNAL | | | | performed at [facility];888 | g/dL | LAB | | | | [address];[place] | | | | | | [address] | | | | + + + + + + | Hematocrit, | 33.9 (L)Comment: Testing | 39.0 - 50.0 % | EXTERNAL | | | POC | performed at [facility];[address] | | LAB | | | | [address];[place] | | | | | | [address] | | | | + + + + + + | MCV | 84.7Comment: Testing | 80.0 - 100.0 fl | EXTERNAL | | | | performed at [facility];[address] | | LAB | | | | [address];[place] | | | | | | [address] | | | | + + + + + + | MCH | 28.9Comment: Testing | 27.0 - 34.0 pg | EXTERNAL | | | | performed at [facility];[address] | | LAB | | | | [address];[place] | | | | | | [address] | | | | + + + + + + | MCHC | 34.1Comment: Testing | 32.0 - 35.5 | EXTERNAL | | | | performed at [facility];888 | g/dL | LAB | | | | [address];[place] | | | | | | [address] | | | | + + + + + + | RDW-CV | 42.0Comment: Testing | 37 - 53 fl | EXTERNAL | | | | performed at [facility];[address] | | LAB | | | | [address];[place] | | | | | | [address] | | | | + + + + + + | Platelet | 392Comment: Testing | 150 - 400 K/uL | EXTERNAL | | | Count | performed at [facility];[address] | | LAB | | | Plasma | [address];[place] | | | | | | [address] | | | | + + + + + + | MPV | 7.0Comment: Testing | fl | EXTERNAL | | | | performed at [facility];[address] | | LAB | | | | [address];[place] | | | | | | [address] | | | | + + + + + + | Differentia | MANUALComment: Testing | | EXTERNAL | | | l Type | performed at [facility];[address] | | LAB | | | | [address];[place] | | | | | | [address] | | | | + + + + + + | Segmented | 69Comment: Testing | % | EXTERNAL | | | Neutrophils | performed at [facility];[address] | | LAB | | | Manual | [address];[place] | | | | | | [address] | | | | + + + + + + | Lymphocytes | 21Comment: Testing | % | EXTERNAL | | | Manual | performed at [facility];[address] | | LAB | | | | [address];[place] | | | | | | [address] | | | | + + + + + + | Monocytes | 4Comment: Testing | % | EXTERNAL | | | Manual | performed at [facility];[address] | | LAB | | | | [address];[place] | | | | | | [address] | | | | + + + + + + | Eosinophils | 6Comment: Testing | % | EXTERNAL | | | Manual | performed at [facility];[address] | | LAB | | | | [address];[place] | | | | | | [address] | | | | + + + + + + | Absolute | 5.08Comment: Testing | 1.90 - 7.40 | EXTERNAL | | | Neutrophils | performed at [facility];888 | K/uL | LAB | | | | [address];[place] | | | | | | [address] | | | | + + + + + + | Absolute | 1.55Comment: Testing | 1.00 - 3.90 | EXTERNAL | | | Lymphocytes | performed at [facility];888 | K/uL | LAB | | | | [address];[place] | | | | | | [address] | | | | + + + + + + | Absolute | 0.29Comment: Testing | 0.00 - 0.80 | EXTERNAL | | | Monocytes | performed at [facility];888 | K/uL | LAB | | | | [address];[place] | | | | | | [address] | | | | + + + + + + | Absolute | 0.44Comment: Testing | 0.00 - 0.50 | EXTERNAL | | | Eosinophils | performed at [facility];888 | K/uL | LAB | | | | [address];[place] | | | | | | [address] | | | | + + + + + + | RBC | NORMALComment: Testing | | EXTERNAL | | | Morphology | performed at [facility];[address] | | LAB | | | | [address];[place], [place] | | | | | | [address] | | | | + + + [...] EXTERNAL | | | | performed at [facility] | | LAB | | | | [address];[place] | | | | | | [address] | | | | + + + [...] | | | Fingerstick | performed at [facility];[address] | | LAB | | | | [address];[place], [place] | | | | | | [address] | | | | + + + [...] | | | Fingerstick | performed at [facility] | | LAB | | | | [address];[place] | | | | | | [address] | | | | + + + [...] | | | Fingerstick | performed at [facility];[address] | | LAB | | | | [address];[place], [place] | | | | | | [address] | | | | + + + [...] | | | Fingerstick | performed at [facility];[address] | | LAB | | | | [address];[place] | | | | | | [address] | | | | + + + [...] | | | Fingerstick | performed at [facility];[address] | | LAB | | | | [address];[place] | | | | | | [address] | | | | + + + [...] | | | Fingerstick | performed at [facility];[address] | | LAB | | | | [address];[place] | | | | | | [address] | | | | + + + [...] | | | Fingerstick | performed at [facility];[address] | | LAB | | | | [address];[place], [place] | | | | | | [address] | | | | + + + [...] | | | Fingerstick | performed at [facility];[address] | | LAB | | | | [address];[place] | | | | | | [address] | | | | + + + [...] | EXTERNAL LAB | | performed at [facility];[address] [place] [address];[place] [address] TOXIN A | | | NEGATIVE Testing performed at | | | [facility];[address] [place] [address];[place] [address] C DIFF INTERPRETATION | | | Negative for toxigenic C.difficile. Testing performed at | | | [facility];[address] [place] [address];[place] [address] | | + + + + +---------+ [...] | | | Fingerstick | performed at [facility];[address] | | LAB | | | | [address];[place] | | | | | | [address] | | | | + + + [...] EXTERNAL | | | | performed at [facility], [address] | K/uL | LAB | | | [address], | | | | | | [place] [address] | | | | + + + + + + | Red Blood | 3.92 (L)Comment: Testing | 4.20 - 5.70 | EXTERNAL | | | Cells | performed at [facility], [address] | M/uL | LAB | | | Counted | [address], | | | | | | [place] [address] | | | | + + + + + + | Hemoglobin | 11.2 (L)Comment: Testing | 13.2 - 17.0 | EXTERNAL | | | | performed at [facility], [address] | g/dL | LAB | | | | [address], | | | | | | [place] [address] | | | | + + + + + + | Hematocrit, | 33.6 (L)Comment: Testing | 39.0 - 50.0 % | EXTERNAL | | | POC | performed at [facility], [address] | | LAB | | | | [address], | | | | | | [place] [address] | | | | + + + + + + | MCV | 85.9Comment: Testing | 80.0 - 100.0 fl | EXTERNAL | | | | performed at [facility], [address] | | LAB | | | | [address], | | | | | | [place] [address] | | | | + + + + + + | MCH | 28.7Comment: Testing | 27.0 - 34.0 pg | EXTERNAL | | | | performed at [facility], [address] | | LAB | | | | [address], | | | | | | [place] [address] | | | | + + + + + + | MCHC | 33.4Comment: Testing | 32.0 - 35.5 | EXTERNAL | | | | performed at [facility], [address] | g/dL | LAB | | | | [address], | | | | | | [place] [address] | | | | + + + + + + | RDW-CV | 41.1Comment: Testing | 37 - 53 fl | EXTERNAL | | | | performed at [facility], [address] | | LAB | | | | [address], | | | | | | [place] [address] | | | | + + + + + + | Platelet | 341Comment: Testing | 150 - 400 K/uL | EXTERNAL | | | Count | performed at [facility], [address] | | LAB | | | Plasma | [address], | | | | | | [place] [address] | | | | + + + + + + | MPV | 7.6Comment: Testing | fl | EXTERNAL | | | | performed at [facility], [address] | | LAB | | | | [address], | | | | | | [place] [address] | | | | + + + + + + | Differentia | AUTOMATEDComment: | | EXTERNAL | | | l Type | Testing performed at | | LAB | | | | [facility], [address] | | | | | | [place] | | | | | | [address] | | | | + + + + + + | % Segmented | 76.22Comment: Testing | % | EXTERNAL | | | | performed at [facility], [address] | | LAB | | | Neutrophils | [address], | | | | | | [place] [address] | | | | + + + + + + | % | 12.04Comment: Testing | % | EXTERNAL | | | Lymphocytes | performed at [facility], [address] | | LAB | | | | [address], | | | | | | [place] [address] | | | | + + + + + + | % Monocytes | 6.15Comment: Testing | % | EXTERNAL | | | | performed at [facility], [address] | | LAB | | | | [address], | | | | | | [place] [address] | | | | + + + + + + | % | 4.73Comment: Testing | % | EXTERNAL | | | Eosinophils | performed at [facility], [address] | | LAB | | | | [address], | | | | | | [place] [address] | | | | + + + + + + | % Basophils | 0.86Comment: Testing | % | EXTERNAL | | | | performed at [facility], [address] | | LAB | | | | [address], | | | | | | [place] [address] | | | | + + + + + + | Absolute | 8.38 (H)Comment: Testing | 1.90 - 7.40 | EXTERNAL | | | Segmented | performed at [facility], [address] | K/uL | LAB | | | Neutrophils | [address], | | | | | | [place] [address] | | | | + + + + + + | Absolute | 1.32Comment: Testing | 1.00 - 3.90 | EXTERNAL | | | Lymphocytes | performed at [facility], [address] | K/uL | LAB | | | | [address], | | | | | | [place] [address] | | | | + + + + + + | Absolute | 0.68Comment: Testing | 0.00 - 0.80 | EXTERNAL | | | Monocytes | performed at [facility], [address] | K/uL | LAB | | | | [address], | | | | | | [place] [address] | | | | + + + + + + | Absolute | 0.52 (H)Comment: Testing | 0.00 - 0.50 | EXTERNAL | | | Eosinophils | performed at [facility], [address] | K/uL | LAB | | | | [address], | | | | | | [place] [address] | | | | + + + + + + | Absolute | 0.10Comment: Testing | 0.00 - 0.10 | EXTERNAL | | | Basophils | performed at [facility], [address] | K/uL | LAB | | | | [address], | | | | | | [place] [address] | | | | + + + [...] | | | | [place] [address] | | | | + + + + + + | K | 3.8Comment: Testing | 3.5 - 4.9 | EXTERNAL | | | | performed at [facility], [address] | mmol/L | LAB | | | | [address], | | | | | | [place] [address] | | | | + + + + + + | Cl | 105Comment: Testing | 99 - 109 mmol/L | EXTERNAL | | | | performed at [facility], [address] | | LAB | | | | [address], | | | | | | [place] [address] | | | | + + + + + + | CO2 | 25Comment: Testing | 23 - 32 mmol/L | EXTERNAL | | | | performed at [facility], [address] | | LAB | | | | [address], | | | | | | [place] [address] | | | | + + + + + + | Anion Gap | 12Comment: Testing | 5 - 20 mmol/L | EXTERNAL | | | | performed at [facility], [address] | | LAB | | | | [address], | | | | | | [place] [address] | | | | + + + + + + | Glucose, | 236 (H)Comment: Testing | 65 - 99 mg/dL | EXTERNAL | | | Fasting | performed at [facility], [address] | | LAB | | | | [address], | | | | | | [place] [address] | | | | + + + + + + | BUN | 6 (L)Comment: Testing | 8 - 25 mg/dL | EXTERNAL | | | | performed at [facility], [address] | | LAB | | | | [address], | | | | | | [place] [address] | | | | + + + + + + | Creatinine | 0.9Comment: Testing | 0.70 - 1.30 | EXTERNAL | | | | performed at [facility], [address] | mg/dL | LAB | | | [address], | | | | | | [place] [address] | | | | + + + + + + | BUN/Creatin | 7Comment: Testing | | EXTERNAL | | | ine Ratio | performed at [facility], [address] | | LAB | | | | [address], | | | | | | [place] [address] | | | | + + + + + + | Calcium | 8.3 (L)Comment: Testing | 8.5 - 10.5 | EXTERNAL | | | | performed at [facility], [address] | mg/dL | LAB | | | | [address], | | | | | | [place] [address] | | | | + + + [...] | | | | [place] [address] | | | | + + + [...] | | | Fingerstick | performed at [facility];[address] | | LAB | | | | [address];[place], [place] | | | | | | [address] | | | | + + + + + + + + | Specimen | + + | | + + + +---------+ + + | Performing | Address | City/State/Zipcode | Phone Number | | Organization | | | | + +---------+ + + | EXTERNAL LAB | | | | + +---------+ + + Rocky Mondragon (12/17/2016 7:55 PM PDT) + + + [...] | | | | | performed at [facility] | | | | | | [facility];[place], [place] | | | | | | [address] | | | | + + + [...] | | | Fingerstick | performed at [facility];[address] | | LAB | | | | [address];[place], [place] | | | | | | [address] | | | | + + + [...] | | | Fingerstick | performed at [facility];[address] | | LAB | | | | [address];[place] | | | | | | [address] | | | | + + + [...] | | | Fingerstick | performed at [facility];[address] | | LAB | | | | [address];[place], [place] | | | | | | [address] | | | | + + + [...] | | | | [facility], [address] [facility] | | | | | | [place] | | | | | | [address] | | | | + + + + + + | Red Blood | 4.13 (L)Comment: Testing | 4.20 - 5.70 | EXTERNAL | | | Cells | performed at [facility], [address] | M/uL | LAB | | | Counted | [address], | | | | | | [place] [address] | | | | + + + + + + | Hemoglobin | 11.7 (L)Comment: Testing | 13.2 - 17.0 | EXTERNAL | | | | performed at [facility], [address] | g/dL | LAB | | | | [address], | | | | | | [place] [address] | | | | + + + + + + | Hematocrit, | 34.8 (L)Comment: Testing | 39.0 - 50.0 % | EXTERNAL | | | POC | performed at [facility], [address] | | LAB | | | | [address], | | | | | | [place] [address] | | | | + + + + + + | MCV | 84.2Comment: Testing | 80.0 - 100.0 fl | EXTERNAL | | | | performed at [facility], [address] | | LAB | | | | [address], | | | | | | [place] [address] | | | | + + + + + + | MCH | 28.2Comment: Testing | 27.0 - 34.0 pg | EXTERNAL | | | | performed at [facility], [address] | | LAB | | | [address], | | | | | | [place] [address] | | | | + + + + + + | MCHC | 33.5Comment: Testing | 32.0 - 35.5 | EXTERNAL | | | | performed at [facility], [address] | g/dL | LAB | | | | [address], | | | | | | [place] [address] | | | | + + + + + + | RDW-CV | 42.0Comment: Testing | 37 - 53 fl | EXTERNAL | | | | performed at [facility], [address] | | LAB | | | | [address], | | | | | | [place] [address] | | | | + + + + + + | Platelet | 329Comment: Testing | 150 - 400 K/uL | EXTERNAL | | | Count | performed at [facility], [address] | | LAB | | | Plasma | [address], | | | | | | [place] [address] | | | | + + + + + + | MPV | 7.9Comment: Testing | fl | EXTERNAL | | | | performed at [facility], [address] | | LAB | | | | [address], | | | | | | [place] [address] | | | | + + + + + + | Differentia | AUTOMATEDComment: | | EXTERNAL | | | l Type | Testing performed at | | LAB | | | | [facility], [address] | | | | | | [place] | | | | | | [address] | | | | + + + + + + | % Segmented | 83.29Comment: Testing | % | EXTERNAL | | | | performed at [facility], [address] | | LAB | | | Neutrophils | [address], | | | | | | [place] [address] | | | | + + + + + + | % | 8.71Comment: Testing | % | EXTERNAL | | | Lymphocytes | performed at [facility], [address] | | LAB | | | | [address], | | | | | | [place] [address] | | | | + + + + + + | % Monocytes | 5.08Comment: Testing | % | EXTERNAL | | | | performed at [facility], [address] | | LAB | | | | [address], | | | | | | [place], [place] [address] | | | | + + + + + + | % | 2.32Comment: Testing | % | EXTERNAL | | | Eosinophils | performed at [facility], [address] | | LAB | | | | [address], | | | | | | [place], [place] [address] | | | | + + + + + + | % Basophils | 0.60Comment: Testing | % | EXTERNAL | | | | performed at [facility], [address] | | LAB | | | | [address], | | | | | | [place], [place] [address] | | | | + + + + + + | Absolute | 12.15 (H)Comment: | 1.90 - 7.40 | EXTERNAL | | | Segmented | Testing performed at | K/uL | LAB | | | Neutrophils | [facility], [address] | | | | | | [place] | | | | | | [address] | | | | + + + + + + | Absolute | 1.27Comment: Testing | 1.00 - 3.90 | EXTERNAL | | | Lymphocytes | performed at [facility], [address] | K/uL | LAB | | | | [address], | | | | | | [place] [address] | | | | + + + + + + | Absolute | 0.74Comment: Testing | 0.00 - 0.80 | EXTERNAL | | | Monocytes | performed at [facility], [address] | K/uL | LAB | | | | [address], | | | | | | [place] [address] | | | | + + + + + + | Absolute | 0.34Comment: Testing | 0.00 - 0.50 | EXTERNAL | | | Eosinophils | performed at [facility], [address] | K/uL | LAB | | | | [address], | | | | | | [place] [address] | | | | + + + + + + | Absolute | 0.09Comment: Testing | 0.00 - 0.10 | EXTERNAL | | | Basophils | performed at [facility], [address] | K/uL | LAB | | | | [address], | | | | | | [place] [address] | | | | + + [...] EXTERNAL | | | | performed at [facility], [address] | mmol/L | LAB [...] | | | | [place] [address] | | | | + + + + + + | Cl | 104Comment: Testing | 99 - 109 mmol/L | EXTERNAL | | | | performed at [facility], [address] | | LAB | | | | [address], | | | | | | [place] [address] | | | | + + + + + + | CO2 | 27Comment: Testing | 23 - 32 mmol/L | EXTERNAL | | | | performed at [facility], [address] | | LAB | | | | [address], | | | | | | [place] [address] | | | | + + + + + + | Anion Gap | 11Comment: Testing | 5 - 20 mmol/L | EXTERNAL | | | | performed at [facility], [address] | | LAB | | | | [address], | | | | | | [place], [place] [address] | | | | + + + + + + | Glucose, | 196 (H)Comment: Testing | 65 - 99 mg/dL | EXTERNAL | | | Fasting | performed at [facility], [address] | | LAB | | | | [address], | | | | | | [place] [address] | | | | + + + + + + | BUN | 5 (L)Comment: Testing | 8 - 25 mg/dL | EXTERNAL | | | | performed at [facility], [address] | | LAB | | | | [address], | | | | | | [place] [address] | | | | + + + + + + | Creatinine | 0.9Comment: Testing | 0.70 - 1.30 | EXTERNAL | | | | performed at [facility], [address] | mg/dL | LAB | | | | [address], | | | | | | [place] [address] | | | | + + + + + + | BUN/Creatin | 6Comment: Testing | | EXTERNAL | | | ine Ratio | performed at [facility], [address] | | LAB | | | | [address], | | | | | | [place] [address] | | | | + + + + + + | Calcium | 8.4 (L)Comment: Testing | 8.5 - 10.5 | EXTERNAL | | | | performed at [facility], [address] | mg/dL | LAB | | | | [address], | | | | | | [place] [address] | | | | + + + [...] W | | | | | | [address], | | | | | | [place] [address] | | | | + + + [...] | | | Fingerstick | performed at [facility];[address] | | LAB | | | | [address];[place] | | | | | | [address] | | | | + + [...] | | | Fingerstick | performed at [facility];[address] | | LAB | | | | [address];[place], [place] | | | | | | [address] | | | | + + + [...] | | | | | performed at [facility] | | | | | | [address];[place], [place] | | | | | | [address] | | | | + + + [...] | | | Fingerstick | performed at [facility];[address] | | LAB | | | | [address];[place], [place] | | | | | | [address] | | | | + + + [...] | | | Fingerstick | performed at [facility];[address] | | LAB | [...] | + + + | KULDIP Jaquan SELMA OGNG XR FOOT LEFT 12/16/2016 8:37 AM History: [...] | | | + + External Lab: [facility] (12/16/2016 5:51 AM PDT) + + + [...] | | | | [facility], [address] | | | | | | [place] | | | | | | [address] | | | | + + + + + + | Red Blood | 4.31Comment: Testing | 4.20 - 5.70 | EXTERNAL | | | Cells | performed at [facility], [address] | M/uL | LAB | | | Counted | [place], | | | | | | [place] [address] | | | | + + + + + + | Hemoglobin | 12.3 (L)Comment: Testing | 13.2 - 17.0 | EXTERNAL | | | | performed at [facility], [address] | g/dL | LAB | | | | [address], | | | | | | [place] [address] | | | | + + + + + + | Hematocrit, | 36.4 (L)Comment: Testing | 39.0 - 50.0 % | EXTERNAL | | | POC | performed at [facility], [address] | | LAB | | | | [address], | | | | | | [place] [address] | | | | + + + + + + | MCV | 84.5Comment: Testing | 80.0 - 100.0 fl | EXTERNAL | | | | performed at [facility], [address] | | LAB | | | | [address], | | | | | | [place] [address] | | | | + + + + + + | MCH | 28.5Comment: Testing | 27.0 - 34.0 pg | EXTERNAL | | | | performed at [facility], [address] | | LAB | | | | [address], | | | | | | [place] [address] | | | | + + + + + + | MCHC | 33.8Comment: Testing | 32.0 - 35.5 | EXTERNAL | | | | performed at [facility], [address] | g/dL | LAB | | | | [address], | | | | | | [place] [address] | | | | + + + + + + | RDW-CV | 42.9Comment: Testing | 37 - 53 fl | EXTERNAL | | | | performed at [facility], [address] | | LAB | | | | [address], | | | | | | [place] [address] | | | | + + + + + + | Platelet | 307Comment: Testing | 150 - 400 K/uL | EXTERNAL | | | Count | performed at [facility], [address] | | LAB | | | Plasma | [address], | | | | | | [place] [address] | | | | + + + + + + | MPV | 8.0Comment: Testing | fl | EXTERNAL | | | | performed at [facility], [address] | | LAB | | | | [address], | | | | | | [place] [address] | | | | + + + + + + | Differentia | AUTOMATEDComment: | | EXTERNAL | | | l Type | Testing performed at | | LAB | | | | [facility], [address] | | | | | | [place] | | | | | | [address] | | | | + + + + + + | % Segmented | 85.00Comment: Testing | % | EXTERNAL | | | | performed at [facility], [address] | | LAB | | | Neutrophils | [address], | | | | | | [place] [place] [address] | | | | + + + + + + | % | 7.15Comment: Testing | % | EXTERNAL | | | Lymphocytes | performed at [facility], [address] | | LAB | | | | [address], | | | | | | [place] [address] | | | | + + + + + + | % Monocytes | 5.39Comment: Testing | % | EXTERNAL | | | | performed at [facility], [address] | | LAB | | | | [address], | | | | | | [place] [address] | | | | + + + + + + | % | 1.86Comment: Testing | % | EXTERNAL | | | Eosinophils | performed at [facility], [address] | | LAB | | | | [address], | | | | | | [place] [address] | | | | + + + + + + | % Basophils | 0.60Comment: Testing | % | EXTERNAL | | | | performed at [facility], [address] | | LAB | | | | [address], | | | | | | [place] [address] | | | | + + + + + + | Absolute | 13.51 (H)Comment: | 1.90 - 7.40 | EXTERNAL | | | Segmented | Testing performed at | K/uL | LAB | | | Neutrophils | [facility], [address] | | | | | | [place] | | | | | | [address] | | | | + + + + + + | Absolute | 1.14Comment: Testing | 1.00 - 3.90 | EXTERNAL | | | Lymphocytes | performed at [facility], [address] | K/uL | LAB | | | | [address], | | | | | | [place] [address] | | | | + + + + + + | Absolute | 0.86 (H)Comment: Testing | 0.00 - 0.80 | EXTERNAL | | | Monocytes | performed at [facility], [address] | [address] | LAB | | | | [address], | | | | | | [place] [address] | | | | + + + + + + | Absolute | 0.30Comment: Testing | 0.00 - 0.50 | EXTERNAL | | | Eosinophils | performed at [facility], [address] | K/uL | LAB | | | | [address], | | | | | | [place] [address] | | | | + + + + + + | Absolute | 0.10Comment: Testing | 0.00 - 0.10 | EXTERNAL | | | Basophils | performed at [facility], [address] | K/uL | LAB | | | | [address], | | | | | | [place] [address] | | | | + + + [...] | | | | [place] [address] | | | | + + + + + + | K | 4.0Comment: Testing | 3.5 - 4.9 | EXTERNAL | | | | performed at [facility], [address] | mmol/L | LAB | | | | [address], | | | | | | [place] [address] | | | | + + + + + + | Cl | 103Comment: Testing | 99 - 109 mmol/L | EXTERNAL | | | | performed at [facility], [address] | | LAB | | | | [address], | | | | | | [place] [address] | | | | + + + + + + | CO2 | 24Comment: Testing | 23 - 32 mmol/L | EXTERNAL | | | | performed at [facility], [address] | | LAB | | | | [address], | | | | | | [place] [address] | | | | + + + + + + | Anion Gap | 14Comment: Testing | 5 - 20 mmol/L | EXTERNAL | | | | performed at [facility], [address] | | LAB | | | | [address], | | | | | | [place] [address] | | | | + + + + + + | Glucose, | 207 (H)Comment: Testing | 65 - 99 mg/dL | EXTERNAL | | | Fasting | performed at [facility], [address] | | LAB | | | | [address], | | | | | | [place] [address] | | | | + + + + + + | BUN | 7 (L)Comment: Testing | 8 - 25 mg/dL | EXTERNAL | | | | performed at [facility], [address] | | LAB | | | | [address], | | | | | | [place] [address] | | | | + + + + + + | Creatinine | 0.9Comment: Testing | 0.70 - 1.30 | EXTERNAL | | | | performed at [facility], [address] | mg/dL | LAB | | | | [address], | | | | | | [place] [address] | | | | + + + + + + | BUN/Creatin | 8Comment: Testing | | EXTERNAL | | | ine Ratio | performed at [facility], [address] | | LAB | | | [address], | | | | | | [place] [address] | | | | + + + + + + | Calcium | 8.2 (L)Comment: Testing | 8.5 - 10.5 | EXTERNAL | | | | performed at [facility], [address] | mg/dL | LAB | | | | [address] [facility], | | | | | | [place] [address] | | | | + + + [...] | | | | | | at [facility], [address] | | | | | | [facility], | | | | | | [place] [address] | | | | + + + [...] | | | Fingerstick | performed at [facility];[address] | | LAB | | | | [address];[place] | | | | | | [address] | | | | + + + [...] with a red-brown discoloration of the bone. Contract Project Manager | | | sections are submitted in [...] interpretation and technical preparation was performed by [facility] | | | [facility], [address], | | | [place] [address] ([employer] Etch Operator: Rafat Lorenzo M.D.; IA#: | | | [id number]). Diagnostician: Isi Gore MD Pathologist | | [...] | | | Fingerstick | performed at [facility];[address] | | LAB | | | | [address];[place] | | | | | | [address] | | | | + + + [...] | | | Fingerstick | performed at [facility];[address] | | LAB | | | | [address];[place], [place] | | | | | | [address] | | | | + + + [...] | | | Fingerstick | performed at [facility];[address] | | LAB | | | | [address];[place], [place] | | | | | | [address] | | | | + + + [...] EXTERNAL | | | | performed at [facility];[address] | | LAB | | | | [address];[place] | | | | | | [address] | | | | + + + + + + | PCO2 ART | 32 (L)Comment: Testing | 35 - 45 mmHg | EXTERNAL | | | | performed at [facility];[address] | | LAB | | | | [address];[place] | | | | | | [address] | | | | + + + + + + | PO2 ART | 81Comment: Testing | 80 - 105 mmHg | EXTERNAL | | | | performed at [facility];[address] | | LAB | | | | [address];[place] | | | | | | [address] | | | | + + + + + + | Lactate, | <0.30 (L)Comment: | 0.36 - 1.25 | EXTERNAL | | | Arterial | Testing performed at | mmol/L | LAB | | | | [facility];[address];[place] [address] | | | | + + + + + + | HCO3 ART | 19 (L)Comment: Testing | 22 - 26 mmol/L | EXTERNAL | | | | performed at [facility];[address] | | LAB | | | | [address];[place] | | | | | | [address] | | | | + + + + + + | POC | 20 (L)Comment: Testing | 23 - 27 mEq/L | EXTERNAL | | | APPEARANCE | performed at [facility];[address] | | LAB | | | UA | [address];[place] | | | | | | [address] | | | | + + + + + + | Base | 6 (H)Comment: Testing | 0.0 - 2.0 | EXTERNAL | | | deficit | performed at [facility];[address] | mmol/L | LAB | | | | [address];[place] | | | | | | [address] | | | | + + + + + + | O2 SAT ART | 96Comment: Testing | 95 - 98 % | EXTERNAL | | | | performed at [facility];[address] | | LAB | | | | [address];[place] | | | | | | [address] | | | | + + + + + + | FiO2, POC | 21Comment: Testing | % | EXTERNAL | | | | performed at [facility];[address] | | LAB | | | | [address];[place] | | | | | | [address] | | | | + + + [...] EXTERNAL | | | | performed at [facility];[address] | mmol/L | LAB | | | | [address];[place], [place] | | | | | | [address] | | | | + + + [...] | | | Fingerstick | performed at [facility] | | LAB | | | | [address];[place] | | | | | | [address] | | | | + + + [...] | | | | [place] [address] | | | | + + + + + + | Clarity | CLEARComment: Testing | | EXTERNAL | | | | performed at [facility], [address] | | LAB | | | | [address], | | | | | | [place] [address] | | | | + + + + + + | Specific | 1.022Comment: Testing | 1.002 - 1.030 | EXTERNAL | | | [place], | performed at [facility], [address] | | LAB | | | Urine | [address], | | | | | | [place] [address] | | | | + + + + + + | Leukocyte | NEGATIVEComment: | | EXTERNAL | | | Esterase, | Testing performed at | | LAB | | | Urine | [facility], [address] | | | | | | [place] | | | | | | [address] | | | | + + + + + + | Nitrite, | NEGATIVEComment: Testing | | EXTERNAL | | | Urine | performed at [facility], [address] | | LAB | | | | [address], | | | | | | [place] [address] | | | | + + + + + + | Urobilinoge | NORMALComment: Testing | mg/dL | EXTERNAL | | | n, Urine | performed at [facility], [address] | | LAB | | | | [address], | | | | | | [place] [address] | | | | + + + + + + | Protein, | NEGATIVEComment: Testing | mg/dL | EXTERNAL | | | Urine | performed at [facility], [address] | | LAB | | | | [address], | | | | | | [place] [address] | | | | + + + + + + | pH, Urine | 6.0Comment: Testing | 5.0 - 8.0 | EXTERNAL | | | | performed at [facility], [address] | | LAB | | | | [address], | | | | | | [place] [address] | | | | + + + + + + | Blood, | NEGATIVEComment: Testing | | EXTERNAL | | | Urine | performed at [facility], [address] | | LAB | | | | [address], | | | | | | [place] [address] | | | | + + + + + + | Ketones | NEGATIVEComment: Testing | mg/dL | EXTERNAL | | | | performed at [facility], [address] | | LAB | | | | [address], | | | | | | [place] [address] | | | | + + + + + + | Bilirubin, | NEGATIVEComment: Testing | | EXTERNAL | | | Urine | performed at [facility], [address] | | LAB | | | | [address], | | | | | | [place] [address] | | | | + + + + + + | Glucose, | >500 (A)Comment: Testing | mg/dL | EXTERNAL | | | Urine | performed at [facility], [address] | | LAB | | | | [address], | | | | | | [place] [address] | | | | + + + [...] | | LAB | | | | [facility];[address] | [address];[place] [address] | | | | + + + + + + | PCO2 ART | 56 (H)Comment: Testing | 35 - 45 mmHg | EXTERNAL | | | | performed at [facility];[address] | | LAB | | | | [address];[place] | | | | | | [address] | | | | + + + + + + | PO2 ART | 74 (L)Comment: Testing | 80 - 105 mmHg | EXTERNAL | | | | performed at [facility];[address] | | LAB | | | | [address];[place] | | | | | | [address] | | | | + + + + + + | Lactate, | 7.11 (H)Comment: Testing | 0.36 - 1.25 | EXTERNAL | | | Arterial | performed at [facility];[address] | mmol/L | LAB | | | | [address];[place] | | | | | | [address] | | | | + + + + + + | HCO3 ART | 9 (L)Comment: Testing | 22 - 26 mmol/L | EXTERNAL | | | | performed at [facility];[address] | | LAB | | | | [address];[place] | | | | | | [address] | | | | + + + + + + | POC | 11 (L)Comment: Testing | 23 - 27 mEq/L | EXTERNAL | | | APPEARANCE | performed at [facility];[address] | | LAB | | | UA | [address];[place] | | | | | | [address] | | | | + + + + + + | Base | 25 (H)Comment: Testing | 0.0 - 2.0 | EXTERNAL | | | deficit | performed at [facility];[address] | mmol/L | LAB | | | | [address];[place] | | | | | | [address] | | | | + + + + + + | O2 SAT ART | 77 (L)Comment: Testing | 95 - 98 % | EXTERNAL | | | | performed at [facility];[address] | | LAB | | | | [address];[place] | | | | | | [address] | | | | + + + + + + | FiO2, POC | 100Comment: Testing | % | EXTERNAL | | | | performed at [facility];[address] | | LAB | | | | [address];[place] | | | | | | [address] | | | | + + + [...] | | | | [facility], [address] [facility] | | | | | | [place] | | | | | | [address] | | | | + + + + + + | Red Blood | 4.04 (L)Comment: Testing | 4.20 - 5.70 | EXTERNAL | | | Cells | performed at [facility], [address] | M/uL | LAB | | | Counted | [address], | | | | | | [place] [address] | | | | + + + + + + | Hemoglobin | 11.4 (L)Comment: Testing | 13.2 - 17.0 | EXTERNAL | | | | performed at [facility], [address] | g/dL | LAB | | | | [address], | | | | | | [place] [address] | | | | + + + + + + | Hematocrit, | 35.1 (L)Comment: Testing | 39.0 - 50.0 % | EXTERNAL | | | POC | performed at [facility], [address] | | LAB | | | | [address], | | | | | | [place] [address] | | | | + + + + + + | MCV | 86.7Comment: Testing | 80.0 - 100.0 fl | EXTERNAL | | | | performed at [facility], [address] | | LAB | | | | [address], | | | | | | [place] [address] | | | | + + + + + + | MCH | 28.2Comment: Testing | 27.0 - 34.0 pg | EXTERNAL | | | | performed at [facility], [address] | | LAB | | | [address], | | | | | | [place] [address] | | | | + + + + + + | MCHC | 32.5Comment: Testing | 32.0 - 35.5 | EXTERNAL | | | | performed at [facility], [address] | g/dL | LAB | | | | [address], | | | | | | [place] [address] | | | | + + + + + + | RDW-CV | 42.0Comment: Testing | 37 - 53 fl | EXTERNAL | | | | performed at [facility], [address] | | LAB | | | | [address], | | | | | | [place] [address] | | | | + + + + + + | Platelet | 262Comment: Testing | 150 - 400 K/uL | EXTERNAL | | | Count | performed at [facility], [address] | | LAB | | | Plasma | [address], | | | | | | [place] [address] | | | | + + + + + + | MPV | 8.4Comment: Testing | fl | EXTERNAL | | | | performed at [facility], [address] | | LAB | | | | [address], | | | | | | [place] [address] | | | | + + + + + + | Differentia | AUTOMATEDComment: | | EXTERNAL | | | l Type | Testing performed at | | LAB | | | | [facility], [address] | | | | | | [place] | | | | | | [address] | | | | + + + + + + | % Segmented | 82.60Comment: Testing | % | EXTERNAL | | | | performed at [facility], [address] | | LAB | | | Neutrophils | [address], | | | | | | [place] [address] | | | | + + + + + + | % | 7.47Comment: Testing | % | EXTERNAL | | | Lymphocytes | performed at [facility], [address] | | LAB | | | | [address], | | | | | | [place] [address] | | | | + + + + + + | % Monocytes | 6.29Comment: Testing | % | EXTERNAL | | | | performed at [facility], [address] | | LAB | | | | [address], | | | | | | [place] [address] | | | | + + + + + + | % | 3.29Comment: Testing | % | EXTERNAL | | | Eosinophils | performed at [facility], [address] | | LAB | | | | [address], | | | | | | [place] [address] | | | | + + + + + + | % Basophils | 0.35Comment: Testing | % | EXTERNAL | | | | performed at [facility], [address] | | LAB | | | | [address], | | | | | | [place] [address] | | | | + + + + + + | Absolute | 13.94 (H)Comment: | 1.90 - 7.40 | EXTERNAL | | | Segmented | Testing performed at | K/uL | LAB | | | Neutrophils | [facility], [address] | | | | | | [place] | | | | | | [address] | | | | + + + + + + | Absolute | 1.26Comment: Testing | 1.00 - 3.90 | EXTERNAL | | | Lymphocytes | performed at [facility], [address] | K/uL | LAB | | | | [address], | | | | | | [place] [address] | | | | + + + + + + | Absolute | 1.06 (H)Comment: Testing | 0.00 - 0.80 | EXTERNAL | | | Monocytes | performed at [facility], [address] | [address]/uL | LAB | | | | [address], | | | | | | [place] [address] | | | | + + + + + + | Absolute | 0.56 (H)Comment: Testing | 0.00 - 0.50 | EXTERNAL | | | Eosinophils | performed at [facility], [address] | [address] | LAB | | | | [address], | | | | | | [place] [address] | | | | + + + + + + | Absolute | 0.06Comment: Testing | 0.00 - 0.10 | EXTERNAL | | | Basophils | performed at [facility], [address] | K[address]L | LAB | | | | [address], | | | | | | [place] [address] | | | | + + + [...] | | | | [place] [address] | | | | + + + [...] EXTERNAL | | | | performed at [facility], [address] | | LAB | | | | [address], | | | | | | [place] [address] | | | | + + + [...] | EXTERNAL | | | A1c | [facility] | | LAB | | | [...] | | | | | performed at [facility], [address] | | | | | | [address], | | | | | | [place] [address] | | | | + + + [...] | | | | | performed at [facility], [address] | | | | | | [facility], | | | | | | [place] [address] | | | | + + [...] | | | | [place] [address] | | | | + + + + + + | K | 4.6Comment: Testing | 3.5 - 4.9 | EXTERNAL | | | | performed at [facility], [address] | mmol/L | LAB | | | | [address], | | | | | | [place] [address] | | | | + + + + + + | Cl | 103Comment: Testing | 99 - 109 mmol/L | EXTERNAL | | | | performed at [facility], [address] | | LAB | | | [address], | | | | | | [place] [address] | | | | + + + + + + | CO2 | 22 (L)Comment: Testing | 23 - 32 mmol/L | EXTERNAL | | | | performed at [facility], [address] | | LAB | | | | [address], | | | | | | [place] [address] | | | | + + + + + + | Anion Gap | 14Comment: Testing | 5 - 20 mmol/L | EXTERNAL | | | | performed at [facility], [address] | | LAB | | | | [address], | | | | | | [place] [address] | | | | + + + + + + | Glucose, | 392 (H)Comment: Testing | 65 - 99 mg/dL | EXTERNAL | | | Fasting | performed at [facility], [address] | | LAB | | | | [address], | | | | | | [place] [address] | | | | + + + + + + | BUN | 12Comment: Testing | 8 - 25 mg/dL | EXTERNAL | | | | performed at [facility], [address] | | LAB | | | | [address], | | | | | | [place] [address] | | | | + + + + + + | Creatinine | 1.0Comment: Testing | 0.70 - 1.30 | EXTERNAL | | | | performed at [facility], [address] | mg/dL | LAB | | | | [address], | | | | | | [place] [address] | | | | + + + + + + | BUN/Creatin | 12Comment: Testing | | EXTERNAL | | | ine Ratio | performed at [facility], [address] | | LAB | | | | [address], | | | | | | [place] [address] | | | | + + + + + + | Calcium | 7.6 (L)Comment: Testing | 8.5 - 10.5 | EXTERNAL | | | | performed at [facility], [address] | mg/dL | LAB | | | | [address], | | | | | | [place] [address] | | | | + + + + + + | Protein, | 6.4Comment: Testing | 6.3 - 8.2 g/dL | EXTERNAL | | | Total | performed at [facility], [address] | | LAB | | | [address], | | | | | | [place] [address] | | | | + + + + + + | Albumin | 2.2 (L)Comment: Testing | 3.6 - 5.0 g/dL | EXTERNAL | | | | performed at [facility], [address] | | LAB | | | | [address], | | | | | | [place] [address] | | | | + + + + + + | Globulin | 4.2Comment: Testing | 1.3 - 4.9 g/dL | EXTERNAL | | | | performed at [facility], [address] | | LAB | | | | [address], | | | | | | [place] [address] | | | | + + + + + + | A/G Ratio | 0.5 (L)Comment: Testing | 1.0 - 2.4 | EXTERNAL | | | | performed at [facility], [address] | | LAB | | | | [address], | | | | | | [place] [address] | | | | + + + + + + | Bilirubin | 0.6Comment: Testing | 0.1 - 1.5 mg/dL | EXTERNAL | | | Total | performed at [facility], [address] | | LAB | | | | [address], | | | | | | [place] [address] | | | | + + + + + + | ALP, | 182 (H)Comment: Testing | 35 - 115 U/L | EXTERNAL | | | External | performed at [facility], [address] | | LAB | | | | [address], | | | | | | [place] [address] | | | | + + + + + + | AST | 9 (L)Comment: Testing | 10 - 45 U/L | EXTERNAL | | | | performed at [facility], [address] | | LAB | | | | [address], | | | | | | [place] [address] | | | | + + + + + + | ALT | 16Comment: Testing | 10 - 65 U/L | EXTERNAL | | | | performed at [facility], [address] | | LAB | | | | [address], | | | | | | [place] [address] | | | | + + [...] | | | | | | at [facility], [address] | | | | | | [address], | | | | | | [place] [address] | | | | + + + [...] | | | Fingerstick | performed at [facility];[address] | | LAB | | | | [address];[place] | | | | | | [address] | | | | + + + [...] EXTERNAL LAB | | Testing performed at [facility];[address] [place] [address];[place] [address] MRSA PCR | | | POSITIVE for MRSA by PCRAbnormal | | | Testing performed at [facility];[address] [place] [address];[place] [address] | | + + + + +---------+ [...] | | | Fingerstick | performed at [facility];[address] | | LAB | | | | [address];[place] | | | | | | [address] | | | | + + + [...] EXTERNAL | | | | performed at [facility];888 | mmol/L | LAB | | | | [address];[place] | | | | | | [address] | | | | + + + + + + | K | 4.0Comment: Testing | 3.5 - 4.9 | EXTERNAL | | | | performed at [facility];888 | mmol/L | LAB | | | | [address];[place] | | | | | | [address] | | | | + + + + + + | Cl | 104Comment: Testing | 99 - 109 mmol/L | EXTERNAL | | | | performed at [facility];[address] | | LAB | | | | [address];[place] | | | | | | [address] | | | | + + + + + + | CO2 | 21 (L)Comment: Testing | 23 - 32 mmol/L | EXTERNAL | | | | performed at [facility];[address] | | LAB | | | | [address];[place] | | | | | | [address] | | | | + + + + + + | Anion Gap | 13Comment: Testing | 5 - 20 mmol/L | EXTERNAL | | | | performed at [facility];[address] | | LAB | | | | [address];[place] | | | | | | [address] | | | | + + + + + + | Glucose, | 254 (H)Comment: Testing | 65 - 99 mg/dL | EXTERNAL | | | Fasting | performed at [facility];[address] | | LAB | | | | [address];[place] | | | | | | [address] | | | | + + + + + + | BUN | 12Comment: Testing | 8 - 25 mg/dL | EXTERNAL | | | | performed at [facility];[address] | | LAB | | | | [address];[place] | | | | | | [address] | | | | + + + + + + | Creatinine | 0.95Comment: Testing | 0.70 - 1.30 | EXTERNAL | | | | performed at [facility];888 | mg/dL | LAB | | | | [address];[place] | | | | | | [address] | | | | + + + + + + | BUN/Creatin | 13Comment: Testing | | EXTERNAL | | | ine Ratio | performed at [facility];[address] | | LAB | | | | [address];[place] | | | | | | [address] | | | | + + + + + + | Calcium | 6.9 (L)Comment: Testing | 8.5 - 10.5 | EXTERNAL | | | | performed at [facility];888 | mg/dL | LAB | | | | [address];[place] | | | | | | [address] | | | | + + + + + + | Protein, | 6.3Comment: Testing | 6.3 - 8.2 g/dL | EXTERNAL | | | Total | performed at [facility];888 | | LAB | | | | [address];[place] | | | | | | [address] | | | | + + + + + + | Albumin | 2.1 (L)Comment: Testing | 3.6 - 5.0 g/dL | EXTERNAL | | | | performed at [facility];888 | | LAB | | | | [address];[place] | | | | | | [address] | | | | + + + + + + | Globulin | 4.2Comment: Testing | 1.3 - 4.9 g/dL | EXTERNAL | | | | performed at [facility];[address] | | LAB | | | | [address];[place] | | | | | | [address] | | | | + + + + + + | A/G Ratio | 0.5 (L)Comment: Testing | 1.0 - 2.4 | EXTERNAL | | | | performed at [facility];[address] | | LAB | | | | [address];[place] | | | | | | [address] | | | | + + + + + + | Bilirubin | 0.4Comment: Testing | 0.1 - 1.5 mg/dL | EXTERNAL | | | Total | performed at [facility];[address] | | LAB | | | | [address];[place] | | | | | | [address] | | | | + + + + + + | ALP, | 181 (H)Comment: Testing | 35 - 115 U/L | EXTERNAL | | | External | performed at [facility];[address] | | LAB | | | | [address];[place] | | | | | | [address] | | | | + + + + + + | AST | 10Comment: Testing | 10 - 45 U/L | EXTERNAL | | | | performed at [facility];[address] | | LAB | | | | [address];[place] | | | | | | [address] | | | | + + + + + + | ALT | 14Comment: Testing | 10 - 65 U/L | EXTERNAL | | | | performed at [facility];[address] | | LAB | | | | [address];[place] | | | | | | [address] | | | | + + + [...] | | | | | | at [facility];[address] [place] [address] | | | | | | Blvd;[place] [address] | | | | + + + [...] 9:30AM Referring Provider Line: | | | [phone] ID: [id number] | | + + + [...] | | 2016 9:30AM Referring Provider Line: [phone] ID: [id number] | + + POC Glucose (12/14/2016 11:34 PM PDT) + + + + + + | Component | Value | Ref Range | Performed | Pathologist | | | | | At | Signature | + + + + + + | Glucose, | 172 (H)Comment: Testing | 65 - 99 mg/dL | EXTERNAL | | | Fingerstick | performed at [facility];[address] | | LAB | | | | [address];[place] | | | | | | [address] | | | | + + + [...] EXTERNAL | | | | performed at [facility];888 | mmol/L | LAB | | | | [address];[place], [place] | | | | | | [address] | | | | + + + [...] | | | Blood | performed at [facility];888 | | LAB | | | | [address];[place], [place] | | | | | | [address] | | | | + + + [...] EXTERNAL | | | | performed at [facility] | | LAB | | | | [facility];[place], [place] | | | | | | [address] | | | | + + + [...] K/uL | LAB | | | | [facility];[address] | | | | | | [address];[place] [address] | | | | + + + + + + | Red Blood | 4.20Comment: Testing | 4.20 - 5.70 | EXTERNAL | | | Cells | performed at [facility];888 | M/uL | LAB | | | Counted | [address];[place] | | | | | | [address] | | | | + + + + + + | Hemoglobin | 12.4 (L)Comment: Testing | 13.2 - 17.0 | EXTERNAL | | | | performed at [facility];888 | g/dL | LAB | | | | [address];[place] | | | | | | [address] | | | | + + + + + + | Hematocrit, | 36.3 (L)Comment: Testing | 39.0 - 50.0 % | EXTERNAL | | | POC | performed at [facility];888 | | LAB | | | | [address];[place] | | | | | | [address] | | | | + + + + + + | MCV | 86.5Comment: Testing | 80.0 - 100.0 fl | EXTERNAL | | | | performed at [facility];888 | | LAB | | | | [address];[place] | | | | | | [address] | | | | + + + + + + | MCH | 29.4Comment: Testing | 27.0 - 34.0 pg | EXTERNAL | | | | performed at [facility];888 | | LAB | | | | [address];[place] | | | | | | [address] | | | | + + + + + + | MCHC | 34.0Comment: Testing | 32.0 - 35.5 | EXTERNAL | | | | performed at [facility];888 | g/dL | LAB | | | | [address];[place] | | | | | | [address] | | | | + + + + + + | RDW-CV | 42.9Comment: Testing | 37 - 53 fl | EXTERNAL | | | | performed at [facility];888 | | LAB | | | | [address];[place] | | | | | | [address] | | | | + + + + + + | Platelet | 258Comment: Testing | 150 - 400 K/uL | EXTERNAL | | | Count | performed at [facility];888 | | LAB | | | Plasma | [address];[place] | | | | | | [address] | | | | + + + + + + | MPV | 8.3Comment: Testing | fl | EXTERNAL | | | | performed at [facility];888 | | LAB | | | | [address];[place] | | | | | | [address] | | | | + + + + + + | Differentia | AUTOMATEDComment: | | EXTERNAL | | | l Type | Testing performed at | | LAB | | | | [facility];[address];[place] [address] | | | | + + + + + + | % Segmented | 87.43Comment: Testing | % | EXTERNAL | | | | performed at [facility];888 | | LAB | | | Neutrophils | [address];[place] | | | | | | [address] | | | | + + + + + + | % | 5.56Comment: Testing | % | EXTERNAL | | | Lymphocytes | performed at [facility];888 | | LAB | | | | [address];[place] | | | | | | [address] | | | | + + + + + + | % Monocytes | 4.36Comment: Testing | % | EXTERNAL | | | | performed at [facility];888 | | LAB | | | | [address];[place] | | | | | | [address] | | | | + + + + + + | % | 1.84Comment: Testing | % | EXTERNAL | | | Eosinophils | performed at [facility];888 | | LAB | | | | [address];[place] | | | | | | [address] | | | | + + + + + + | % Basophils | 0.81Comment: Testing | % | EXTERNAL | | | | performed at [facility];888 | | LAB | | | | [address];[place] | | | | | | [address] | | | | + + + + + + | Absolute | 17.02 (H)Comment: | 1.90 - 7.40 | EXTERNAL | | | Segmented | Testing performed at | K/uL | LAB | | | Neutrophils | [facility];[address];[place] [address] | | | | + + + + + + | Absolute | 1.08Comment: Testing | 1.00 - 3.90 | EXTERNAL | | | Lymphocytes | performed at [facility];888 | K/uL | LAB | | | | [address];[place] | | | | | | [address] | | | | + + + + + + | Absolute | 0.85 (H)Comment: Testing | 0.00 - 0.80 | EXTERNAL | | | Monocytes | performed at [facility];888 | K/uL | LAB | | | | [address];[place] | | | | | | [address] | | | | + + + + + + | Absolute | 0.36Comment: Testing | 0.00 - 0.50 | EXTERNAL | | | Eosinophils | performed at [facility];888 | K/uL | LAB | | | | [address];[place] | | | | | | [address] | | | | + + + + + + | Absolute | 0.16 (H)Comment: Testing | 0.00 - 0.10 | EXTERNAL | | | Basophils | performed at [facility];888 | K/uL | LAB | | | | [address];[place] | | | | | | [address] | | | | + + + + + + | RBC | RBC AND PLT MORPHOLOGY | | EXTERNAL | | | Morphology | APPEAR NORMALComment: | | LAB | | | | Testing performed at | | | | | | [facility];[address] | | | | | | [address];[place] [address] | | | | + + + + + + | Platelet | ADEQUATEComment: Testing | | EXTERNAL | | | Estimate | performed at [facility];888 | | LAB | | | | [address];[place] | | | | | | [address] | | | | + + + + + + | Differentia | SLIDE SCANNED, AGREES | | EXTERNAL | | | l Comments | WITH AUTOMATED | | LAB | | | | RESULTS.Comment: Testing | | | | | | performed at [facility];888 | | | | | | [address];[place] | | | | | | [address] | | | | + + + [...] EXTERNAL | | | | performed at [facility];888 | | LAB | | | | [address];[place] | | | | | | [address] | | | | + + + [...] EXTERNAL | | | | performed at [facility];888 | mmol/L | LAB | | | | [address];[place] | | | | | | [address] | | | | + + + + + + | K | 5.1 (H)Comment: MODERATE | 3.5 - 4.9 | EXTERNAL | | | | HEMOLYSISTesting | mmol/L | LAB | | | | performed at [facility];[address] | | | | | | [address];[place] | | | | | | [address] | | | | + + + + + + | Cl | 93 (L)Comment: Testing | 99 - 109 mmol/L | EXTERNAL | | | | performed at [facility];[address] | | LAB | | | | [address];[place] | | | | | | [address] | | | | + + + + + + | CO2 | 23Comment: Testing | 23 - 32 mmol/L | EXTERNAL | | | | performed at [facility];888 | | LAB | | | | [address];[place] | | | | | | [address] | | | | + + + + + + | Anion Gap | 14Comment: Testing | 5 - 20 mmol/L | EXTERNAL | | | | performed at [facility];888 | | LAB | | | | [address];[place] | | | | | | [address] | | | | + + + + + + | Glucose, | 635 ()Comment: CALLED | 65 - 99 mg/dL | EXTERNAL | | | Fasting | EDITH MONTROSEDR LING | | LAB | | | | AT 2216 BY RHREAD BACK | | | | | | RESULTS VERIFIEDTesting | | | | | | performed at [facility];888 | | | | | | [address];[place] | | | | | | [address] | | | | + + + + + + | BUN | 13Comment: Testing | 8 - 25 mg/dL | EXTERNAL | | | | performed at [facility];888 | | LAB | | | | [address];[place] | | | | | | [address] | | | | + + + + + + | Creatinine | 1.4 (H)Comment: Testing | 0.70 - 1.30 | EXTERNAL | | | | performed at [facility];888 | mg/dL | LAB | | | | [address];[place] | | | | | | [address] | | | | + + + + + + | BUN/Creatin | 10Comment: Testing | | EXTERNAL | | | ine Ratio | performed at [facility];888 | | LAB | | | | [address];[place] | | | | | | [address] | | | | + + + + + + | Calcium | 7.9 (L)Comment: Testing | 8.5 - 10.5 | EXTERNAL | | | | performed at [facility];888 | mg/dL | LAB | | | | [address];[place] | | | | | | [address] | | | | + + + + + + | Protein, | 7.7Comment: Testing | 6.3 - 8.2 g/dL | EXTERNAL | | | Total | performed at [facility];888 | | LAB | | | | [address];[place] | | | | | | [address] | | | | + + + + + + | Albumin | 2.6 (L)Comment: Testing | 3.6 - 5.0 g/dL | EXTERNAL | | | | performed at [facility];888 | | LAB | | | | [address];[place] | | | | | | [address] | | | | + + + + + + | Globulin | 5.1 (H)Comment: Testing | 1.3 - 4.9 g/dL | EXTERNAL | | | | performed at [facility];888 | | LAB | | | | [address];[place] | | | | | | [address] | | | | + + + + + + | A/G Ratio | 0.5 (L)Comment: Testing | 1.0 - 2.4 | EXTERNAL | | | | performed at [facility];888 | | LAB | | | | [address];[place] | | | | | | [address] | | | | + + + + + + | Bilirubin | 0.6Comment: Testing | 0.1 - 1.5 mg/dL | EXTERNAL | | | Total | performed at [facility];888 | | LAB | | | | [address];[place] | | | | | | [address] | | | | + + + + + + | ALP, | 259 (H)Comment: Testing | 35 - 115 U/L | EXTERNAL | | | External | performed at [facility];888 | | LAB | | | | [address];[place] | | | | | | [address] | | | | + + + + + + | AST | 17Comment: MODERATE | 10 - 45 U/L | EXTERNAL | | | | HEMOLYSISTesting | | LAB | | | | performed at [facility];888 | | | | | | [address];[place] | | | | | | [address] | | | | + + + + + + | ALT | 17Comment: Testing | 10 - 65 U/L | EXTERNAL | | | | performed at [facility];888 | | LAB | | | | [address];[place] | | | | | | [address] | | | | + + + [...] | | | | | | at [facility];[address] | | | | | | [address];[place] [address] | | | | + + + [...] type 2 diabetes mellitus with hyperglycemia, unspecified fpc | | insulin use status | + [...]
--- OUTSIDE RECORDS SUMMARY | ~2020-03-27 | XMS | Encounter Summary ---
Demographics + + + | Address | [address] | | | [place] [address] | + + + | Home Phone [...] Team Providers + +------+ + | Care Heater Worker Name | Role | Phone | + +------+ + | Estrella Light PA-C | PCP | | + +------+ + Encounter Details +--------+ + + + + | Date | Type | Department | Care Team | Description | +--------+ + + + + | 03/29/ | Abstract | [facility] | Avi Forde MD | | | 2016 | | GASTROENTEROLOGY | [address], [place] | | | | | [address] [place] | [address] [place] | | | | | [address] [place], [place] | [address] | | | | | [address] | | | | | | [phone] | | | +--------+ + + + [...]
--- OUTSIDE RECORDS SUMMARY | ~2020-03-27 | XMS | Encounter Summary ---
Demographics + + + | Address | [address] | | | [place] [address] | + + + | Home Phone [...] Team Providers + +------+ + | Care Seaman Officer Name | Role | Phone | [...] + | 04/12/ | Telephone | [facility] | Avi Forde MD | Hosp No Show | | 2015 | | GASTROENTEROLOGY | [address], [place] | (egds,colon) | | | | [address] [place] | [address] [place], [place] | | | | | [address] [place], [place] | [address] | | | | | [address] | | | | | | [phone] | | | +--------+ + + + [...]
--- OUTSIDE RECORDS SUMMARY | ~2020-03-27 | XMS | Encounter Summary ---
Demographics + + + | Address | [address] | | | [place] [address] | + + + | Home Phone [...] Team Providers + +------+ + | Care Monument Stonecutter Name | Role | Phone | + +------+ + PCP | Unavailable | + +------+ + Encounter Details +--------+ + + + + | Date | Type | Department | Care Team | Description | +--------+ + + + + | 05/21/ | Hospital | [facility] | Unknown, | | | 1992 | Encounter | MED CTR XRAY [address] | [place] . | | | | | [place] | [phone] | | | | | [place] [address] | | | | | | [phone] | | | +--------+ + + + [...]
--- OUTSIDE RECORDS SUMMARY | ~2020-03-27 | XMS | Encounter Summary ---
Demographics + + + | Address | [address] | | | [place] [address] | + + + | Home Phone [...] + + + | Author | [facility] | | | and [place] | + + + | Organization | [facility] | | [...] Team Providers + +------+ + | Care Electric Motor Winders Assembler Name | Role | Phone | [...] diarrhea | [address], | | | | | IgG Gliadin | [place], [place] | [place] [address] | | | | | antibody | [address] [place] | [place], | | | | | positive | [place] | [place] [address] | | | | | Alcohol | [address] | Phone: | | | | | abuse | Phone: | [phone] | | | | | Procedures | [phone] | Fax: | | | | | MD | Fax: | [phone] | | | | | COLONOSCOPY | [phone] | | | | | | FLX [...] + + | 09/03/ | Telephone | [facility] | Avi Forde MD | Appointment | | 2014 | | GASTROENTEROLOGY | [address], [place] | (procedure ) | | | | [address] [place] | [address] [place], [place] | | | | | [address] [place], [place] | [address] | | | | | [address] | | | | | | [phone] | | | +--------+ + + + [...] reviewed bowel prep instructio ns; rx to [facility]; She would like to check with [...]
[~2020-03-27 14:30] MED LIST changes: +IBUPROFEN200 M1 PO
--- OUTSIDE RECORDS SUMMARY | 2020-03-27 14:34 | XMS ---
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 Elopement at [facility] 10/30/2019 18:49 - Other Details: PATIENT LWBS Elopement at [facility] 09/25/2019 03:51 - Other Details: PATIENT LEFT AMA. IRIS CREATED. POLICE CONTACTED. 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 Care History Medical/Surgical 10/07/2019 [facility] - CHW CONTACTED MANAGER DIVERSITY PHILIP AT [facility]- REQUESTED RECENT ED RECORDS TO REQUEST AN ENT REFERRAL FOR PATIENT. - CHW SENT OVER REQUESTED RECORDS FOR ENT REFERRAL REQUEST. - [facility] MANAGER DIVERSITY WILL CONTACT PATIENT FOR FURTHER FOLLOW UP. 06/12/2018 [facility] - Patient is currently working with Charlotte LILLYzyglo inspector at [facility] contact if patient is seen in the ED. - Patient has a long history of diabetes but refuses to refill insulin. - Patient refuses to follow up with podiatry which has been requested several times by the PCP and Charlotte LILLYzyglo inspector at [facility]. - Patient refuses to follow up [...] judgement. E.D. VISIT COUNT (12 MO.) 1 [place] [facility] 13 [facility] TOTAL 14 NOTE: Visits indicate total known visits. 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 - Allergy status to penicillin - Dehydration - Type 2 diabetes mellitus without complications - Weakness - Acute kidney failure, unspecified - Essential (primary) hypertension 10/31/2019 06:54 [facility] TYPE: Emergency COMPLAINT: - BACK PAIN DIAGNOSES: - Type 2 diabetes mellitus without complications - Cervicalgia - Allergy status to penicillin - Essential (primary) hypertension - Other infective spondylopathies, cervical region 10/30/2019 18:49 [facility] TYPE: Emergency COMPLAINT: - HIP AND NECK PAIN,LEFT WITHOUT BEING SEEN DIAGNOSES: - Procedure and treatment not carried out due to patient leavin 10/13/2019 11:55 [facility] DIAGNOSES: - Headache - Headache (Adult - New Onset Or New Symptoms) - nose bleed/pressure - Acute recurrent frontal sinusitis - Epistaxis 10/12/2019 03:20 [facility] TYPE: Emergency COMPLAINT: - NOSEBLEED DIAGNOSES: - Allergy status to penicillin - Essential (primary) hypertension - Epistaxis - Type 2 diabetes mellitus without complications 10/10/2019 16:21 [facility] TYPE: Emergency COMPLAINT: - NOSE PACKING REMOVAL DIAGNOSES: - Encounter for change or removal of nonsurgical wound dressing - Encounter for change or removal of nonsurgical wound dressing - Type 2 diabetes mellitus without complications - Allergy status to penicillin - Epistaxis - USP (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 of aspirin - Essential (primary) hypertension 10/09/2019 17:48 [facility] TYPE: Emergency COMPLAINT: - NOSE BLEED DIAGNOSES: - Type 2 diabetes mellitus without complications - Essential (primary) hypertension - long term care administrator (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 of aspirin - Allergy status to penicillin - Epistaxis 10/08/2019 17:02 [facility] TYPE: Emergency COMPLAINT: - NOSE BLEED DIAGNOSES: - Type 2 diabetes mellitus without complications - USP (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 of aspirin - Epistaxis - Allergy status to penicillin - Personal history of nicotine dependence - Essential (primary) hypertension 10/05/2019 20:49 [facility] TYPE: Emergency COMPLAINT: - NOSE BLEED DIAGNOSES: - Epistaxis - Personal history of nicotine dependence - long term care administrator (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 of aspirin - Essential (primary) hypertension - Allergy status to penicillin - Type 2 diabetes mellitus without complications 09/25/2019 03:51 [facility] TYPE: Emergency COMPLAINT: - CHEST PAIN DIAGNOSES: - Type 2 diabetes mellitus without complications - Personal history of nicotine dependence - USP (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 of aspirin - Other chest pain - Essential (primary) hypertension - Allergy status to penicillin 08/15/2019 01:02 [facility] TYPE: Emergency COMPLAINT: - MEDICAL CLEARANCE DIAGNOSES: - long term care administrator (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 - Type 2 diabetes mellitus without complications - Personal history of nicotine dependence - Encounter for observation for other suspected diseases and co - Allergy status to penicillin - Encounter for general adult medical examination without abnor - Essential (primary) hypertension - Other correction (current) drug therapy 08/11/2019 16:16 [facility] TYPE: Emergency COMPLAINT: - URINE PROBLEM DIAGNOSES: - Type 2 diabetes mellitus without complications - Hematuria, unspecified - Personal history of nicotine dependence - Other correction (current) drug therapy - Allergy status to penicillin - Essential (primary) hypertension - USP (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 03/29/2019 06:12 [facility] TYPE: Emergency COMPLAINT: - FACIAL SWELLING DIAGNOSES: - Personal history of nicotine dependence - Allergy status to penicillin - 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 - USP (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 - Localized swelling, mass and lump, head - Bitten or stung by nonvenomous insect and other nonvenomous a - Type 2 diabetes mellitus with diabetic cataract - Insect bite (nonvenomous) of other part of head, initial enco - Essential (primary) hypertension INPATIENT VISIT TRACKING (12 MO.) 10[facility]31/2019 [facility] TYPE: Internal Medicine DIAGNOSES: - 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
[2020-03-27] MEDS ORDERED: FERROUS SULFAT325 MG PO (16:38)
[2020-03-27] MEDS ORDERED: OMEPRAZOLE20 MG PO (16:38)
== END 2020-03-27 17:20 | disposition home or self-care (01) ==
LOC: ED 14:30
DX: D64.9 Anemia, unspecified (principal); I10 Essential (primary) hypertension; E11.9 Type 2 diabetes mellitus without complications; Z88.0 Allergy status to penicillin
CPT/HCPCS: 80053; 85025; 99284

== ENCOUNTER 2020-05-14 19:50 | Emergency (ER) | payer OTHER ==
[~2020-05-14] VITALS: Ht 177.8 cm; Wt 59.0 kg
--- OUTSIDE RECORDS SUMMARY | ~2020-05-14 | XMS | Encounter Summary ---
Demographics + + + | Address | [address] | | | [place] [address] | + + + | Home Phone | | + + + | Preferred Language | Unknown | + + + | Marital Status | Single | + + + | Advent Affiliation | 1077 | + + + | Race | Unknown | + + + | Ethnic Group | Unknown | + + + Author + + + | Author | [facility] | | | and [place] | + + + | Organization | [facility] | | | and [...] Team Providers + +------+ + | Care Tumbling Barrel Painter Name | Role | Phone | + +------+ + PCP | Unavailable | + +------+ + Encounter Details +--------+ + + + + | Date | Type | Department | Care Team | Description | +--------+ + + + + | 07/19/ | Hospital | [facility] | | | | 1993 | Encounter | MED CTR MP INTRA OP | | | | | | [address] | | | | | | [place] | | | | | | [address] | | | | | | [phone] | | | +--------+ + + + + Social History + +-------+ +--------+------+ | Tobacco Use | Types | Packs/Day | Years | Date | | | | | Used | | + +-------+ +--------+------+ | Never Assessed | | | | | + +-------+ +--------+------+ + + + | Sex Assigned at | Date Recorded | | | | + + + | Not on file | | + + + documented as of this encounter Plan of Treatment Not on filedocumented as of this encounter Visit Diagnoses Not on filedocumented in this encounter"
--- OUTSIDE RECORDS SUMMARY | ~2020-05-14 | XMS | Encounter Summary ---
Demographics + + + | Address | [address] | | | [place] [address] | + + + | Home Phone | | + + + | Preferred Language | Unknown | + + + | Marital Status | Single | + + + | Alevism Affiliation | 1077 | + + + | Race | Unknown | + + + | Ethnic Group | Unknown | + + + Author + + + | Author | [facility] | | | and [place] | + + + | Organization | [facility] | | [...] Team Providers + +------+ + | Care Metal Tube Cutter Name | Role | Phone | + +------+ + | Estrella Light PA-C | PCP | | + +------+ + Reason for Visit + +--------+ + | Reason | Onset | Comments | | | Date | | + +--------+ + | Hosp No Show | 04/12/ | egds,colon | | | 2015 | | + +--------+ + Encounter Details +--------+ + + + + | Date | Type | Department | Care Team | Description | +--------+ + + + + | 04/12/ | Telephone | [facility] | Avi Forde MD | Hosp No Show | | 2015 | | GASTROENTEROLOGY | [address], [place] | (egds,colon) | | | | [address] [place] | [address] [place], [place] | | | | | [address] [place], [place] | [address] | | | | | [address] | | | | | | [phone] | | | +--------+ + + + [...] + + documented as of this encounter Miscellaneous Notes Telephone Encounter - Britt Ortiz RN - 04/12/2016 1:50 PM PDTPatient did not nathalie w and did not cancel for EGD and colonoscopy today. This appointment was given to patient w ith the understanding that he promised to show this time. He will not be he rescheduled in our office per Dr Forde. 1: 52 PM PDTdocumented in this encounter Plan of Treatment Not on filedocumented as of this encounter Visit Diagnoses Not on filedocumented in this encounter"
--- OUTSIDE RECORDS SUMMARY | ~2020-05-14 | XMS | Encounter Summary ---
Demographics + + + | Address | [address] | | | [place] [address] | + + + | Home Phone | | + + + | Preferred Language | Unknown | + + + | Marital Status | Single | + + + | Jew Affiliation | 1077 | + + + | Race | Unknown | + + + | Ethnic Group | Unknown | + + + Author + + + | Author | [facility] | | | and [place] | + + + | Organization | [facility] | | | and [...] Team Providers + +------+ + | Care Land Clearer Name | Role | Phone | + [...] | | type | [address] | [place], | | | | | | [place], | [place] [address] | | | | | | [place] [address] | Phone: | | | | | | Phone: | [phone] | | | | | | [phone] | Fax: | | | | | | Fax: | [phone] | | | | | | [phone] | | +--------+ + + + + + Reason for Visit + + + | Reason | Comments | + + + | Hematuria | | + + + Encounter Details +--------+ + + + + | Date | Type | Department | Care Team | Description | +--------+ + + + + | 10/16/ | Emergency | [facility] | Keenan Estrada MD | Hematuria, | | 2019 | | MED CTR EMERGENCY | [address] | unspecified type | | | | CENTER [address] | [place] | (Primary Dx) | | | | [place] | [id number] | | | | | [address] | | | | | | [phone] | | | +--------+ + + + [...] the skin 3 | | | | 0 | | units/mL injection | times daily (before | | | | | | | meals). | | | | | + + + +---------+ + + | insulin glargine | Inject 40 Units | | 0 | | | | (LANTUS) 100 | under the skin | | | | 0 | | units/mL injection | nightly. | | | | | | (vial) | | | | | | + + + +---------+ + + | levoFLOXacin | take 1 tablet by | | 0 | 06/10/20 | | | (LEVAQUIN) 500 mg | mouth daily | | | 18 | 0 | | tablet | | | | | | + + + +---------+ + + | lisinopril | | | 0 | 10/11/19 | | | (PRINIVIL, ZESTRIL) | | | | 19 | 0 | | 10 mg tablet | | | | | | + + + +---------+ + + | lisinopril | Take 1 tablet by | | 0 | 06/08/20 | | | (PRINIVIL, ZESTRIL) | mouth daily. | | | 16 | 0 | | 20 mg tablet | | | | | | + + + +---------+ + + | lisinopril | Take 5 mg by mouth | | 0 | | | | (PRINIVIL, ZESTRIL) | Daily. | | | | 0 | | 5 mg tablet | | | | | | + + + +---------+ + + documented as of this encounter ED Notes Keenan Estrada MD - 10/16/2018 4:19 PM PST Emergency Department Encounter NotE CHIEF COMPLAINT Hematuria HPI Kuldip Smith is a 53 y.o. male who presents to the Emergency Department with hemat uria for the past 2 days. He's not of any pain with it. No dysuria. No urgency or frequen cy. He's been increasing fluid intake and that seemed to help somewhat with the discolorati on. He's not had abdominal pain. No flank pain. No fevers. No unusual weight loss. No p revious episodes like this before. He's not had difficulty with urination. Not passed any clots. PAST MEDICAL & SURGICAL HISTORY Past Medical History: Diagnosis Date Abnormal weight [...] Date BUNIONECTOMY correction of CATARACT REMOVAL Bilateral 2015 KNEE ARTHROSCOPY Right VASECTOMY SOCIAL HISTORY Social History Social History Marital status: Single Spouse name: N/A Number of children: N/A Years of education: N/A Social History Main Topics Smoking status: Former Smoker Years: 0.20 Types: Cigarettes Quit date: 10/02/1986 Smokeless tobacco: Former User Types: Chew Quit date: 10/02/2008 Alcohol use No Drug use: No Sexual activity: Not Asked Other Topics Concern None Social History Narrative None CURRENT MEDICATIONS Previous Medications INSULIN ASPART (NOVOLOG) 100 UNITS/ML INJECTION Inject 20 Units under the skin 3 times daily (before meals). INSULIN GLARGINE (LANTUS) 100 UNITS/ML INJECTION (VIAL) Inject 40 Units under the skin nightly. LISINOPRIL (PRINIVIL, ZESTRIL) 5 MG TABLET Take 5 mg by mouth Daily. MULTIPLE VITAMINS-MINERALS (CEROVITE SENIOR) TABS Take 1 tablet by mouth Daily. ALLERGIES Allergies Allergen Reactions Penicillins Rash REVIEW OF SYSTEMS As in history of present illness. A 10 system of review was otherwise negative. PHYSICAL EXAM VITAL SIGNS: (first vital signs):Temp: 36.7 C (98.1 F) Pulse: 102 Resp: 16 SpO2: 99 % B P: (!) 169/93 General: Alert, appears well, non toxic HEENT: Normocephalic, atraumatic, OP clear, EOMI Neck: supple, full range of motion, no tracheal deviation Cardiovascular: Normal rate and rhythm, no murmurs, rubs or gallops Pulmonary: CTA bilateral, no wheeze/rhonci or resp distress Abdominal: Soft, non tender, no rebound or guarding Musculoskeletal: normal ROM, no edema Neurologic: Alert, no cranial nerve deficits, no focal deficits Skin: warm and dry LABS UA hematuria and some pyuria with bacteria in the facet Estrace, we'll treat for infection and refer to urology ASSESSMENT & ED COURSE Patient here with hematuria concerned for infection. Started on antibiotics. Given the pr imary hematuria will go ahead and refer him to urology. He otherwise appears nontoxic here. Does not have pain. His hemodynamics are stable. DISPOSITION Discharge FINAL IMPRESSION Hematuria Keenan Estrada MD 10/16/18 1644 ored, Shalonda Castro RN - 0 10/16/2018 3:16 PM PSTPatient presenting to ED with chief complaint of blood in urine over . Patient reports Monday and Monday, he was urinating oksana blood (brownish/red in color). Patient reports blood in urine seems to be resolving at this time, as he has incr eased his water intake over the past two days. Patient reports urine today was light yellow, no visible blood. docum ented in this encounter Plan of Treatment + + +--------+ + + | Name | Type | Priori | Associated Diagnoses | Order Schedule | | | | ty | | | + + +--------+ + + | Urology [facility] - | Outpatient | Routin | Hematuria, | Ordered: 10/16/2018 | | Jerel/Andreeve | Referral | e | unspecified type [...] + | [facility] | [address] | Marilyn Sanders [place] | [phone] | | [facility] | | [address] | | | - LABORATORY | | [...] | Urine | | Yellow, Straw | [facility] | | | | | | MEDICAL | | | | | | CENTER - | | | | | | LABORATORY | | + + + + + + | Clarity, | Cloudy (A) | Clear | [facility] | | | Urine | [...] - 1.030 | [facility] | | | [place], | | | [facility] | | | Urine | | | MEDICAL | | | | | | CENTER - | | | | | | LABORATORY | | + + + + + + | Protein, | 100 mg/dL (A) | Negative | [facility] | | | Urine | | | [facility] | | | | | | MEDICAL [...] | | | Esterase, | | | [facility] | | | Urine | | | [...] + + + + + + | White Blood | 15-25 (A) | 0 - 2 /HPF | [facility] | | | Cells, | | | [facility] | | | Urine | | | MEDICAL | | | | | | CENTER - | | | | | | LABORATORY | | + + + + + + | Red Blood | >100 (A) | 0 - 2 /HPF | [facility] | | | Cells, | | | [facility] | | | Urine | | | MEDICAL | | | | | | CENTER - | | | | | | LABORATORY | | + + + + + + | Squamous | 0-2 | 0 - 2 /LPF | [facility] | | | Epithelial | | | [facility] | | | Cells, | | | MEDICAL | | | Urine | | | CENTER - | | | | | | LABORATORY | | + + + + + + | Bacteria, | 2+ (A) | Negative /HPF | [facility] | | | Urine | | | [facility] | | | | | | MEDICAL | | | | | | CENTER - | | | | | | LABORATORY | | + + + + + + | Hyaline | 10-15 (A) | 0 - 2 /LPF | [facility] | | | Casts, | | | [facility] | | | Urine | | | MEDICAL | | | | | | CENTER - | | | | | | LABORATORY | | + + + + + + | Urine | Urine Culture Set Up | | [facility] | | | Comment | | | [facility] | | [...] | + + + + + | [facility] | [address] | [place] | [phone] | | [facility] | | [address] | | | - LABORATORY | | | | + + + + + documented in this encounter Visit Diagnoses + + | Diagnosis | + + | Hematuria, unspecified type - Primary | + + documented in this encounter Additional Health Concerns + + + + + | Infection | Onset Date | Last Indicated | Resolved Time | + + + + + | Methicillin-resistan | 12/15/2016 | 12/15/2016 | | | t Staphylococcus | | | | | aureus | | | | + + + + + documented as of this encounter
--- OUTSIDE RECORDS SUMMARY | ~2020-05-14 | XMS | Encounter Summary ---
Demographics + + + | Address | [address] | | | [place] [address] | + + + | Home Phone | | + + + | Preferred Language | Unknown | + + + | Marital Status | Single | + + + | Alevism Affiliation | 1077 | + + + | Race | Unknown | + + + | Ethnic Group | Unknown | + + + Author + + + | Author | [facility] | | | and [place] | + + + | Organization | [facility] | | | [...] Team Providers + +------+ + | Care Rough Rice Tender Name | Role | Phone | [...] | diarrhea | | | | [address] [place], [place] | [address] | | | | | [address] | | | | | | [phone] | | | +--------+ + + + [...]
--- OUTSIDE RECORDS SUMMARY | ~2020-05-14 | XMS | Encounter Summary ---
Demographics + + + | Address | [address] | | | [place] [address] | + + + | Home Phone [...] + + | Author | [facility] | | | and [place] | + + + | Organization | [facility] | | [...] Team Providers + +------+ + | Care Medical Assistant Supervisor Name | Role | Phone | + +------+ + | Estrella Light PA-C | PCP | | + +------+ + Reason for Visit + +--------+ + | Reason | Onset | Comments | | | Date | | + +--------+ + | Hosp No Show | 04/12/ | | | | 2015 | | + +--------+ + Encounter Details +--------+ + + + + | Date | Type | Department | Care Team | Description | +--------+ + + + + | 04/12/ | Telephone | [facility] [place] | Avi Forde MD | [facility] | | 2015 | | GASTROENTEROLOGY | [address], [place] | | | | | [address] [place] | [address] [place] | | | | | [address] [place], [place] | [address] | | | | | [address] | | | | | | [phone] | | | +--------+ + + + [...] Encounter - Britt Ortiz RN - 04/12/2016 1:54 PM PDTPatient was a no sh ow for egd,colonoscopy today. We will not reschedule. Routed note to PCP. Electronically si gned by Britt Ortiz RN at 04/12/2016 1:58 PM PDTdocumented in this encounter Plan of Treatment Not on filedocumented as of this encounter Visit Diagnoses Not on filedocumented in this encounter"
--- OUTSIDE RECORDS SUMMARY | ~2020-05-14 | XMS | Encounter Summary ---
Demographics + + + | Address | [address] | | | [place] [address] | + + + | Home Phone | | + + + | Preferred Language | Unknown | + + + | Marital Status | Single | + + + | Mandaeism Affiliation | 1077 | + + + | Race | Unknown | + + + | Ethnic Group | Unknown | + + + Author + + + | Author | [facility] | | | and [place] | + + + | Organization | [facility] | | | and [...] Team Providers + +------+ + | Care High School Science Teacher Name | Role | Phone | + +------+ + | Estrella Light PA-C | PCP | | + +------+ + Encounter Details +--------+ + + + + | Date | Type | Department | Care Team | Description | +--------+ + + + + | 01/13/ | Hospital | [facility] | Cameron Lopez | | | 2018 - | Encounter | [facility] | MD Antolin Hill | | | | | CLINICAL DECISION | [place], [place] | | | 01/14/ | | UNIT [facility] | [address] | | | 2017 | | [place], [place] | | | | | | [address] | | | | | | [phone] | | | +--------+ + + + [...] 01/14/181931 Date of Service: 01/14/18899 Status: Signed Special Duty Nurse: Abhinav Winters DO (Physician) The patient is 52 y.o. 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, presented to the emergency department of [facility] in [place] today with complaints of upper, sharp chest [...] 3 days. He also ran a fe [place] last night, associated with chills and sweating. His 2-year-old grandchild has similar s ymptomsHe has been bringing up some phlegm, but he swallows it rather than spitting it out. Hence, he does not know the color of the sputum. The patient denies any history of previous heart problems, pneumonia, or bronchitis. He quinn s not smoke. In the emergency department at [facility], EKG showed T inversions in lead [...] 01/14/18950 Date of Service: 01/14/18899 Status: Signed Special Duty Nurse: Elizabeth Galvez RN (Registered Nurse) Approached by [...] staff would provide wheelchair ride out to [facility] and he could wait inside [facility] until ride arrived. He then stated "oh I see, you are just going to kick me out on the street now!" Explained to patient that was not being kicked out and that waiting in the lobby was where shaneka ramirez was welcome to wait inside until his ride arrived. He was then escorted, via wheelchair, to [facility] by escort and security staff. onver ruben Transaction, Provider Unknown - 01/13/2018 2:00 PM PDT Pharmacy Note by Rosalba Luo RPH at 01/13/18 1400 Author: Rosalba Luo RPH Service: Pharmacy Author Type: Pharmacist Filed: 01/13/18 1400 Date of Service: 01/13/18 1400 Status: Signed Special Duty Nurse: Rosalba Luo RPH (Pharmacist) Clinical Pharmacy Note: [...] Service: Hospitalist Author Type: Physician Filed: 01/13/18 6228 Date of Service: 01/13/18 1257 Status: Addendum Special Duty Nurse: Cameron Lopez MD (Physician) Related Notes: Original Note by Cameron Lopez MD (Physician) filed at 01/13/18 14 09 [facility] Service: Hospitalist Admission History & Physical Date of Admission: 01/13/2018 Requesting Physician: ED physician, [facility] [place] [facility] [place]. Reason for Admission: Chest pain History Obtained [...] ago, presented to the emergency department of [facility] in [place] today with complaints of upper, sharp chest [...] not smoke. In the emergency department at [facility], EKG showed T inversions in lead [...] - AMPUTATION; Surgeon: Jerry Redmond DPM; Location: [facility]; Service: Podiatry; Laterality: Left; TONSILLECTOMY [...] with long-term current use of insulin ([facility]) Viral upper respiratory tract infection Essential hypertension Skin ulcer of right foot, limited to breakdown of skin ([facility]) ASSESSMENT & PLAN 1. Chest pain, most likely atypical in nature and secondary to upper respiratory tract infe ction. Pain occurs only when the patient coughs or takes a deep breath, and there is no radi ation of pain. However, he has borderline elevation of troponin and initial EKG done at [facility] showed T inversions in lead III and aVF. However, repeat EKG done in [facility] revealed normal sinus rhythm, without any ST [...] of Lovenox at the emergency department in [place]. The kendall ent currently is chest pain free. If troponin shows an upward trend and repeat EKG shows any changes, then we will consult Dr. Galicia, who was already notified by physician at [facility]. If acute MN is ruled out, then we will proceed [...] 01/14/18225 Date of Service: 01/14/18225 Status: Signed Special Duty Nurse: Sean Gaitan RN (Registered Nurse) Problem: Pain [...] 01/13/181628 Date of Service: 01/13/181627 Status: Signed Special Duty Nurse: Jenny Willingham RN (Registered Nurse) Problem: Pain [...] + + + + + + | Non- | 5.47 | 4.20 - 5.70 | EXTERNAL | | | Red Blood | | M/uL | LAB | | | Cells | | | | | | Counted | | | [...] | | | Basophils | performed at [facility], [address] | K/uL | LAB | | | | [address], | | | | | | [place] [address] | | | | + + + [...] | | | | [place] [address] | | | | + + + [...] EXTERNAL | | | | performed at [facility], [address] | | LAB | | | | [address] [place], | | | | | | [place] [address] | | | | + + + [...] EXTERNAL | | | | performed at [facility], [address] | | LAB | | | | [address] [place], | | | | | | [place] [address] | | | | + + + [...] | EXTERNAL | | | A1c | [facility] | | LAB | | | [...] | | | | | performed at [facility], [address] | | | | | | [facility], | | | | | | [place] [address] | | | | + + + [...] | | | Calculated | performed at [facility], [address] | | LAB | | | | [place], | | | | | | [place] [address] | | | | + + + [...] | | | | | | at [facility], [address] | | | | | | [facility], | | | | | | [place] [address] | | | | + + + [...] | | | Fingerstick | performed at [facility];[address] | | LAB | | | | [address];[place] | | | | | | [address] | | | | + + + [...] + + | Historically converted procedure from [facility] Epic environment | EXTERNAL LAB | + [...] EXTERNAL | | | | performed at [facility] | | LAB | | | | [address];[place] | | | | | | [address] | | | | + + + [...] | | | Fingerstick | performed at [facility];[address] | | LAB | | | | [address];[place] | | | | | | [address] | | | | + + + [...] | | | | | | ACUTE MN Testing | | | | | | performed at [facility];[address] | | | | | | [address];[place], [place] | | | | | | [address] | | | | + + + [...] EXTERNAL | | | | performed at [facility];[address] | | LAB | | | | [address];[place] | | | | | | [address] | | | | + + + [...] | | | Fingerstick | performed at [facility];[address] | | LAB | | | | [address];[place], [place] | | | | | | [address] | | | | + + + [...] | | | Fingerstick | performed at [facility];[address] | | LAB | | | | [address];[place] | | | | | | [address] | | | | + + + [...] | | | | | | ACUTE MN Testing | | | | | | performed at [facility] | | | | | | [facility];[place], [place] | | | | | | [address] | | | | + + + [...] EXTERNAL | | | | performed at [facility];[address] | | LAB | | | | [address];[place], [place] | | | | | | [address] | | | | + + + [...] TV A Star: 0.46 m/s TV Dec [place]: 2.14 m/s2 TV Dec Time: | | | 223.61 ms TV E Star: 0.47 m/s TV E/A Ratio: 1.03 | | | [employer]: DIDI Authenticated by: Dereck Galicia Report | [...] (A-L): | | 16.36 ml/m2LAAs A2C: 13.19 [id number] A-L A2C: 34.91 mlLALs A2C: 4.23 cmLAAs A4C: | | 11.37 [id number] A-L A4C: 29.21 mlLALs A4C: 3.75 cmRAAd: 13.57 [id number] A-L: | | 35.22 mlRAEDV MOD: 30.46 mlRALd: 4.44 cmTAPSE: 1.67 cmHR: 82.18 BPMAV maxPG: | | 3.19 mmHgAV meanP.99 mmHgAV Vmax: 0.89 m/Simran Vmean: 0.69 m/Simran VTI: 18.16 | | cmAVA Vmax: 3.34 cm2AVA (VTI): 3.51 [id number] Vmax: 0.00 cm2/m2AVAI (VTI): 0.00 | | cm2/m2LVCI Dopp: 2.41 l/omyx5KFML Dopp: 5.00 l/minHR: 78.46 BPMLVOT maxP.34 | [...] 3 mmHgTV A Star: 0.46 m/sTV Dec [place]: 2.14 m/s2TV Dec Time: 223.61 | | msTV E Star: 0.47 m/sTV E/A Ratio: 1.03 [employer]: GDAuthenticated by: Dereck | | KorimerlaReport Date/Time: 01-13-2018 [...] A Star: 0.46 m/s | |TV Dec [place]: 2.14 m/s2 | |TV Dec Time: 223.61 ms | |TV E Star: 0.47 m/s | |TV E/A Ratio: 1.03 | | | |[employer]: GD | |Authenticated by: Dereck Galicia | [...] | | | Fingerstick | performed at [facility];[address] | | LAB | | | | [address];[place] | | | | | | [address] | | | | + + + [...] | | | | | | ACUTE MN Testing | | | | | | performed at [facility];[address] | | | | | | [address];[place], [place] | | | | | | [address] | | | | + + + [...] MD | | | | | | 69) on 01/13/2018 | | | | | | 9:46:57 PM | | | | + + + + + + + + | Specimen | + + | | + + + + + | Narrative | Performed At | + + + | [facility] | EXTERNAL LAB | + + + + +---------+ + + | Performing | Address | City/State/Zipcode | Phone Number | | Organization | | | | + +---------+ + + | EXTERNAL LAB | | | | + +---------+ + + ALEXIS ASKEW (01/13/2018 12:35 PM PDT) + + | Specimen | + + | | + + + + + | Narrative | Performed At | + + + | SOURCE NARES(NOSE) MRSA | EXTERNAL LAB | | PCR POSITIVE for MRSA by | | | PCRAbnormal Testing performed at [facility];[address] [place] [address];[place] [address] | | + + + + +---------+ [...]
--- OUTSIDE RECORDS SUMMARY | ~2020-05-14 | XMS | Encounter Summary ---
Demographics + + + | Address | [address] | | | [place] [address] | + + + | Home Phone [...] Team Providers + +------+ + | Care Community Health Program Coordinator Name | Role | Phone | + +------+ + | Estrella Light PA-C | PCP | | + +------+ + Encounter Details +--------+---------+ + + + | Date | Type | Department | Care Team | Description | +--------+---------+ + + + | 04/12/ | Surgery | [facility] | Avi Forde MD | EGD / COLONOSCOPY - | | 2015 | | MED CTR MP INTRA OP | [address], [place] | DM (insulin) | | | | [address] | [address] [place] | | | | | [place] | [id number] | | | | | [address] | | | | | | [phone] | | | +--------+---------+ + + + [...]
--- OUTSIDE RECORDS SUMMARY | ~2020-05-14 | XMS | Encounter Summary ---
Demographics + + + | Address | [address] | | | [place] [address] | + + + | Home Phone [...] Team Providers + +------+ + | Care Greeting Card Editor Name | Role | Phone | + +------+ + | Estrella Light PA-C | PCP | | + +------+ + Reason for Visit + +--------+ + | Reason | Onset | Comments | | | Date | | + +--------+ + | Medication Prior | 12/05/ | lantus | | Authorization | 2019 | | + +--------+ + Encounter Details +--------+ + + + + | Date | Type | Department | Care Team | Description | +--------+ + + + + | 12/05/ | Telephone | [facility] | Libby Albarado | Medication Prior | | 2019 | | [address] | Authorization | | | | [place] | | (yannius) | | | | [address] | | | | | | [phone] | | | +--------+ + + + [...] - 12/06/2019 11:55 AM [facility]Call[facility]. They do not need a PA at this time as pt took to [facility] to get filled. d ocumented in this [...]
--- OUTSIDE RECORDS SUMMARY | ~2020-05-14 | XMS | Encounter Summary ---
Demographics + + + | Address | [address] | | | [place] [address] | + + + | Home Phone | | + + + | Preferred Language | Unknown | + + + | Marital Status | Single | + + + | Religion Affiliation | 1077 | + + + | Race | Unknown | + + + | Ethnic Group | Unknown | + + + Author + + + | Author | [facility] | | | and [place] | + + + | Organization | [facility] | | | [...] Team Providers + +------+ + | Care Credit Collections Specialist Name | Role | Phone | + +------+ + | Estrella Light PA-C | PCP | | + +------+ + Encounter Details +--------+ + + + + | Date | Type | Department | Care Team | Description | +--------+ + + + + | 09/22/ | Anesthesia | [facility] | Ilya Dodge | | | 2014 | Event | MED [facility] INTRA OP | MD Ebonie [address] | | | | | [address] | [facility] | | | | | [place] | [place] [address] | | | | | [address] | [phone] | | | | | [phone] | | | +--------+ + + + [...] EVALUATION Kuldip Smith 50 y.o. male 1965 [id number] Procedure(s): COLONOSCOPY (N/A Rectum) Medical history, anesthesia, [...]
--- OUTSIDE RECORDS SUMMARY | ~2020-05-14 | XMS | Encounter Summary ---
Demographics + + + | Address | [address] | | | [place] [address] | + + + | Home Phone [...] + + + | Author | [facility] | | | and [place] | + + + | Organization | [facility] | | | [...] Team Providers + +------+ + | Care Licensed Prosthetist/Orthotist Name | Role | Phone | + [...] + + | 09/22/ | Telephone | [facility] [place] | Avi Forde MD | Other | | 2014 | | GASTROENTEROLOGY | [address], [place] | | | | | [address] [place] | [address] | | | | | [address] [place], [place] | [address] | | | | | [address] | | | | | | [phone] | | | +--------+ + + + [...]
--- OUTSIDE RECORDS SUMMARY | ~2020-05-14 | XMS | Encounter Summary ---
Demographics + + + | Address | [address] | | | [place] [address] | + + + | Home Phone [...] Team Providers + +------+ + | Care Pediatric Sports Medicine Specialist Name | Role | Phone | + +------+ + | Estrella Light PA-C | PCP | | + +------+ + Reason for Referral Evaluate & Treat (Urgent) +--------+ + + + + + | Status | Reason | Specialty | Diagnoses / | Referred By | Referred To | | | | | Procedures | Contact | Contact | +--------+ + + + + + | Closed | Specialty | Otolaryngolog | Diagnoses | Harley, | Christian[facility], | | | Services | y | Epistaxis, | Ricki Sanchez MD | Viral Garcia MD | | | Required | | recurrent | [address] | | | | | Facial pain, | [address] [place] [address] | | | | | acute | [place], | [place], | | | | | Acute | [place] [address] | [place] [address] | | | | | recurrent | Phone: | Phone: | | | | | frontal | [phone] | [phone] | | | | | sinusitis | Fax: | Fax: | | | | | | [phone] | [phone] | +--------+ + + + + + [...] + + | 10/13/ | Emergency | [facility] | Ricki Souza, | Epistaxis, recurrent | | 2019 | | [facility] | MD [address] | (Primary Dx); | | | | CENTER [address] | [place] | Facial pain, acute; | | | | [place] | [address] | Acute recurrent | | | | [address] | | frontal sinusitis | | | | [phone] | | | +--------+ + + + [...] attachments cannot be sent through Care Everywhere.Sinusitis, Acyadi e (Tongan)documented in this encounter Medications at Time of [...] not drink alcohol or use drugs. 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 He arrives [...] PM Medical Decision Making EMS notes and retirement records if applicable/available. Pertinent labs and imaging stud ies were reviewed (see above). Medication and allergy lists reviewed in [facility]. Nursing notes and old records were reviewed if available within [facility]. ER course: 12:24 PM - Patient care [...] If symptoms worsen Contact information: [address] [facility] [address] [facility] [address] Schedule an appointment as soon as possible for a visit with Viral Alvarado MD. Specialty: Otolaryngology Contact information: [address], [place] [address] [facility] [id number] Patient's Medications New Prescriptions HYDROCODONE-ACETAMINOPHEN (NORCO) 5-325 [...] by mouth daily Discharge References/Attachments Sinusitis, Acute (Tongan) Administrations This Visit HYDROmorphone (DILAUDID) injection 1 mg Admin Date 10/13/2019 Action Given Dose 1 mg Route Intravenous Administered By MAXX Martinez MD 10/13/19 1358 Rochelle Mendoza RN - 10/13/2019 11:56 AM PSTPt reports nosebleed for about a week and states he has been at [facility] ER 5 times for this. He arrives [...] not filled due to being mi splaced. Sukhdev velazquez in this encounter Plan of Treatment + [...] R?MRN: | | | | | | [id number] | | | [id number] | | | riteri | | | [...] | | | St. | | | [place] | | | y | | | [...] | | | St. | | | [place] | | | y | | | [...] | | | St. | | | [place] | | | y | | | [...] | | | St. | | | [place] | | | y H. | | | [place] | | | [place] | | | [facility] | | | ncy | | | Chief | | | Compla | | | int: | | | NOSEBL | | | EED | | | Nando 9, | | | 2020 | | | [facility] | | | [facility] | | | [place] | | | y H. | | [...] | | | St. | | | [place] | | | y H. | | [...] | | | St. | | | [place] | | | y H. | | [...] | | | St. | | | [place] | | | y H. | | [...] | | | St. | | | [place] | | | y H. | | [...] | | | St. | | | [place] | | | y H. | | [...] | | | St. | | | [place] | | | y H. | | [...] | | | St. | | | [place] | | | y H. | | [...] | | | [id number] | | | [id number] | | | | | | PLEASE [...] CT Maxillofacial wo Contrast (10/13/2019 1:12 PM PST) + + | Specimen | [...] | | | report was sent by [employer] [facility] with no significant discrepancy on | | [...] | | preliminary report was sent by [facility] with no significant discrepancyon | | 10/13/2019 [...] | |A preliminary report was sent by [facility] with no significant discrepancy | |on 10/13/2019 [...] 16 | 9 - 23 mg/dL | [facility] | | | | | | [facility] | | | | | | [facility] | | | | | | CENTER - | | | | | | LABORATORY | | + + + + + + | Creatinine | 1.21 | 0.70 - 1.30 | [facility] | | | | | mg/dL | [facility] | | | | | | MEDICAL | | | | | | CENTER - | | | | | | LABORATORY | | + + + + + + | eGFR, | >60Comment: GLOMERULAR | >=60 | [facility] | | | non- | FILTRATION | mL/min/1.73m2 | [facility] | | | [place] | RATE,ESTIMATED | | MEDICAL | | | | mL/min/1.17e0Ieem than | | CENTER - | | [...] + | [facility] | [address] | [place] | [phone] | | [facility] | | [address] | | | - LABORATORY | | | | + + + + + CBC with Differential (10/13/2019 1:06 PM PST) + + + + + + | Component | Value | Ref Range | Performed | Pathologist | | | | | At | Signature | + + + + + + | White Blood | 11.6 (H) | 4.0 - 11.0 K/uL | [facility] | | | Cells | | | [facility] | | | | | | MEDICAL | | | | | | CENTER - | | | | | | LABORATORY | | + + + + + + | Red Blood | 3.59 (L) | 4.30 - 5.70 | [facility] | | | Cells | | M/uL | [facility] | | | | | | MEDICAL | | | | | | CENTER - | | | | | | LABORATORY | | + + + + + + | Hemoglobin | 9.7 (L) | 13.5 - 18.0 | [facility] | | | | | g/dL | [facility] | | | | [...] | | Neutrophils | | K/uL | [facility] | | | | | | MEDICAL | | | | | | CENTER - | | | | | | LABORATORY | | + + + + + + | Absolute | 0.80 | 0.60 - 3.20 | [facility] | | | Lymphocytes | | K/uL | [facility] | | | | | | MEDICAL | | | | | | CENTER - | | | | | | LABORATORY | | + + + + + + | Absolute | 0.81 | 0.00 - 1.00 | [facility] | | | Monocytes | | K/uL | [facility] | [...] | | nRBC | | K/uL | [facility] | | | | | | [...] [address] | [place] | [phone] | | [facility] | | [address] | | | - LABORATORY | | [...]
--- OUTSIDE RECORDS SUMMARY | ~2020-05-14 | XMS | Encounter Summary ---
Demographics + + + | Address | [address] | | | [place] [address] | + + + | Home Phone [...] | + + +---------+ + | Yasmany Gong | ECON | Unknown | | + + +---------+ + | Katherine Duran | ECON | Unknown | | + + +---------+ + | Sarah Hanson | ECON | Unknown | | + + +---------+ + Care Team Providers + +------+ + | Care Midwife Practitioner Name | Role | Phone | + +------+ + | Estrella Light PA-C | PCP | | + +------+ + Encounter Details +--------+ + + + + | Date | Type | Department | Care Team | Description | +--------+ + + + + | 12/14/ | Hospital | [facility] | [place], | Osteomyelitis of | | 2017 - | Encounter | [facility] | MD [address] | foot, left, acute | | | | CARE FLOOR [phone] | [address] | ([facility]); Uncontrolled | | 12/20/ | | [address] | [place] [address] | type 2 diabetes | | 2017 | | [place], [place] | [phone] | mellitus with | | | | [address] | | hyperglycemia, | | | | [phone] | | unspecified long | | | | | | term insulin use | | | | | | status ([facility]); Renal | | | | | | [...] of this note might be different from ashley gomez. Discharge Summaries by Bunny Chaney MD at 12/20/16 1539 Author: Bunny Chaney MD Service: (none) Author Type: Physician Filed: 12/26/16 1935 Date of Service: 12/20/161538 Status: Addendum [employer] Dean: Bunny Chaney MD (Physician) Related Notes: Original Note by Bunny Chaney MD (Physician) filed at 12/26/16 0644 [facility]: Hospitalist Physician Discharge Summary Patient ID: Kuldip Gong [id number] y.o. 1965 Admit date: 12/14/2016 Discharge [...] been approved, which should be given from [facility] ec until further approval from insurance. Also [...] up: Estrella Light PA-C [address] [place] [address] Rebeca Russell MD [facility] [id number] Schedule an appointment as soon as possible for a visit in 10 days Dictation and appeals assistant or software, [email or web address], used which may contain error for similar [...] TempSrc: Oral Axillary Oral Oral Resp: 16 16 Height: Weight: SpO2: 99% 95% 99% [...] - AMPUTATION; Surgeon: Walter Fernandez DPM; Location: [facility]; Service: Podiatry; Laterality: Left; Significant [...] Management by Jenny Vaughan RN at 12/20/16 8445 Author: Jenny Vaughan RN Service: (none) Author Type: Registered Nurse Filed: 12/20/16 4783 Date of Service: 12/20/161538 Status: Signed [employer] Dean: Jenny Vaughan RN (Registered Nurse) 3954 - Received call from [facility] stating they are now unable to accept prosper alberts due to a "freeze on admits". They are aware patient has been discharged and is en rou te to home. They are still unable to accept. Call placed to [facility] OPP rega rding need for services. They state pt will need to arrange wound care/dressing changes thr ough his PCP per insurance requirements. Voicemail left for Coby at [facility] inic to return call. Will need to call back in morning to schedule appointment as clinic is currently closed. onver ruben Transaction, Provider Unknown - 12/20/2016 3:39 PM PDT Case Management by Mirlande Prescott RN at 12/20/16 4689 Author: Mirlande Prescott RN Service: (none) Author Type: Registered Nurse Filed: 12/21/16 0808 Date of Service: 12/20/16 1539 Status: Signed [employer] Dean: Mirlande Prescott RN (Registered Nurse) 0800: Tc to pt's PCP, Coby Light, with [facility], to updat e about [facility] not being able to admit pt. Coby states she and Charlotte will work on getting pt the appropriate wound vac care he needs, they are going to try and get pt into O P wound therapy with [facility] or maybe to OP in . Coby states she will als o call [facility] as to when they can admit pt under their services. Maribel onver ruben Transaction, Provider Unknown - 12/20/2016 1:03 PM PDT Progress Notes by Rachael Molina RN at 12/20/16 1303 Author: Rachael Molina RN Service: Wound/Ostomy Care Author Type: Registered Nurse Filed: 12/20/16 1311 Date of Service: 12/20/16 1303 Status: Signed [employer] Dean: Rachael Molina RN (Registered Nurse) Wound care [...] taken of tracking number and faxed to ANDREY Vargas. Instructions on how to use the portable [...] for further protection. Hospital vac dc'd in [facility] express: #[id number] Rachael Molina RN, CWON 12/20/2016 1:10 PM onver ruben Transaction, Provider Unknown - 12/20/2016 11:34 AM PDT Case Management by Mirlande Prescott RN at 12/20/16 8964 Author: Mirlande Prescott RN Service: (none) Author Type: Registered Nurse Filed: 12/20/16 4056 Date of Service: 12/20/16 6946 Status: Addendum [employer] Dean: Mirlande Prescott RN (Registered Nurse) Related Notes: Original Note by Mirlande Prescott RN (Registered Nurse) filed at 12/20/16 114 9 Per rounding with pt, he will be d/c home today. Pt states his mother will be providing tra nsportation home. Wound vac [facility] and [...] and agrees with plan. Tc to Coby [phone] and Charlotte [phone] with [facility]/mannie cabezas nd left mssgs of pt's d/c Today. Faxed AVS to [facility] Maribel qra Cisneros, PT - 12/20/2016 10:07 AM PDTFormatting of this note might be different from th ashley original. Therapy Progress Note by Karina Zabala, PT at 12/20/16 1007 Author: Karina Zabala PT Service: (none) Author Type: Physical Therapist Filed: 12/20/16 1037 Date of Service: 12/20/16 1007 Status: Signed [employer] Dean: Karina Zabala PT (Physical Therapist) 12/20/16 1007 [...] at home) PT Ready for Discharge Yes onyaquelin fortuneion, Provider Unknown - 12/19/2016 4:46 PM PDT Therapy Progress Note by Natalia Marte PT at 12/19/161645 Author: Natalia Marte PT Service: (none) Author Type: Physical Therapist Filed: 12/19/16 4196 Date of Service: 12/19/161645 Status: Signed [employer] Dean: Natalia aMrte PT (Physical Therapist) 12/19/161645 PT Last Visit PT Received On 12/19/16 Reason for Treatment Other (comment) (L foot osteomyelitis) Requires PT Follow Up Awaiting tx order Follow up PT Only? Yes (Assistive device assessment) Focus for Next Treatment Equipment Trial;Stair Training (bilateral axillary crutches and stair training) PT Eval/Reassessment Date 12/19/16 Assistance Required 1 person Science Technicians Needed No Home Environment Type of Home Home one story Home Exterior Layout 1-3 steps (2 JEISON) Home Interior Layout Lives on main level with bedroom/bathroom Bathroom Shower/Tub Tub/shower unit Bathroom Toilet Raised Bathroom Equipment Grab bars outside of shower/bath;Raised toilet seat Bathroom Accessibility Not accessible Home Equipment Cane single point;Crutches-axillary Prior Function Level of [place] Independent with ADLs;Independent with IADLs;Modified independent wi [...] Eval/Reassessment Date 12/19/16 Assistance Required 1 person Science Technicians Needed No Precautions LE Precaution(s) LLE Precautions/WB [...] Notes by Rebeca Russell MD at 12/19/16 1145 Author: Rebeca Russell MD Service: Infectious Disease Author Type: Physician Filed: 12/20/16 0639 Date of Service: 12/19/16 1140 Status: Signed [employer] Dean: Rebeca Russell MD (Physician) [facility]: Infectious Disease Progress Note Hospital [...] much information and acting annoyed with clini bronwynns questions. He states that he did not [...] Dec 15 2016 9:30AM Referring Provider Line: [phone] ID: [id number] MRI foot left without contrast [[id number]] Impression 1. Recent amputation of the LEFT 4th toe. 2. No radiographic evidence of residual osteomyelitis in the remaining ossicles of the LEF T forefoot. 3. Moderately extensive vascular calcifications. X-ray foot left [[id number]] PROBLEM LIST Principal Problem: Osteomyelitis (HCC) Active [...] Status: Full Code REBECA RUSSELL MD 12/19/2016 rown, Dell Cabezas DO - 12/19/2016 11:03 AM PDT Progress Notes by Dell Archer DO at 12/19/16 1103 Author: Dell Archer DO Service: Hospitalist Author Type: Physician Filed: 12/19/16 1106 Date of Service: 12/19/16 110 Status: Signed [employer] Dean: Dell Archer DO (Physician) PROGRESS NOTE 12/19/2016 for Kuldip Partida César Farideh on the hospitalist service. Admitted with L [...] (37.2 C)] 98.5 F (36.9 C) (12/19 0741) BP: (112-165)/(63-96) 112/63 mmHg (12/19 740) Heart [...] Service: (none) Author Type: Registered Nurse Filed: 12/19/163 Date of Service: 12/19/16914 Status: Addendum [employer] Dean: Jenny Vaughan RN (Registered Nurse) Related Notes: Original Note by Jenny Vaughan RN (Registered Nurse) filed at 12/19/16 [phone] - [facility]. She wi ll be following patient once he is discharged and requests to be notified when patient is di scharging. Her voicemail is secure and she gives permission to leave a detailed message, if needed. She is also aware [facility] will be following for home health services. [facility] and [facility] are able to accept patient. Face to face order faxed ([phone]) Charlotte - [facility] RN [phone] Alicia with [facility] notified of wound vac placement. Auth form signed by hospitalist and faxed to Alicia. Lilly with [facility] notified of patient discharging on oral antibiotics. onver ruben Transaction, Provider Unknown - 12/18/2016 6:45 PM PDT Nurse Progress Note by Gerber Hay RN at 12/18/161844 Author: Gerber Hay RN Service: (none) Author Type: Registered Nurse Filed: 12/18/161847 Date of Service: 12/18/161844 Status: Signed [employer] Dean: Gerber Hay RN (Registered Nurse) Pt resting comfortably, tx with hydromorphone for pain x3. VSS. Will continue to monitor. GERBER HAY RN rown, Dell Cabezas DO - 12/18/2016 9:29 AM PDTFormatting of this note might be different from the kar ginal. Progress Notes by Dell Archer DO at 12/18/16928 Author: Dell Archer DO Service: Hospitalist Author Type: Physician Filed: 12/18/16933 Date of Service: 12/18/16928 Status: Addendum [employer] Dean: Dell Archer DO (Physician) Related Notes: Original Note by Dell Archer DO (Physician) filed at 12/18/16930 PROGRESS NOTE 12/18/2016 for Kuldip Gong on the hospitalist service. ASSESSMENT & PLAN [...] Notes by Walter Fernandez DPM at 12/18/16 0855 Author: Walter Fernandez DPM Service: Podiatry Author Type: Doctor of Podiatric Medi cine Filed: 12/18/16899 Date of Service: 12/18/16854 Status: Signed [employer] Dean: Walter Fernandez DPM (Doctor of Podiatric Medicine) [facility]: Podiatry Progress Note Hospital Day: [...] home health care. Dr. David DPM in [place] take s care of this patient and can resume wound care to ease patent travel. Disposition: Stable Code Status: Full Code WALTER FERNANDEZ DPM 12/18/2016 onversion Ledesma saction, Provider Unknown - 12/18/2016 8:46 AM PDTFormatting of this note might be differen t from the original. Progress Notes by Destini Javier RPH at 12/18/16845 Author: Destini Javier RPH Service: (none) Author Type: Pharmacist Filed: 12/18/16845 Date of Service: 12/18/16845 Status: Signed [employer] Dean: Destini Javier RPH (Pharmacist) Day 5 Vanco Tx. Todays Scr= 0.9, WBC= 10.99 with estim CrCl= 111.2 ml/min. Last Vanco Tr 3 PM = 17.4 (15-20mcg/ml). No changes today. Pharmacist; DESTINI JAVIER 12/18/2016 8:45 AM ebeca Ramirez MD - 12/18/2016 8:21 AM PDT Progress Notes by Rebeca Russell MD at 12/18/16820 Author: Rebeca Russell MD Service: Infectious Disease Author Type: Physician Filed: 12/18/16 1108 Date of Service: 12/18/16820 Status: Signed [employer] Dean: Rebeca Russell MD (Physician) [facility]: Infectious Disease Progress Note Hospital [...] Dec 15 2016 9:30AM Referring Provider Line: [phone] ID: [id number] MRI foot left without contrast [[id number]] Impression 1. Recent amputation of the LEFT 4th toe. 2. No radiographic evidence of residual osteomyelitis in the remaining ossicles of the LEF T forefoot. 3. Moderately extensive vascular calcifications. X-ray foot left [[id number]] PROBLEM LIST Principal Problem: Osteomyelitis (HCC) Active [...] 12/17/162246 Date of Service: 12/17/162246 Status: Signed [employer] Dean: Jihan Jacinto RPH (Pharmacist) Clinical Pharmacy Note: [...] (none) Author Type: Registered Nurse Filed: 12/17/16 7442 Date of Service: 12/17/161742 Status: Signed [employer] Dean: Gerber Hay RN (Registered Nurse) Wound vac [...] Notes by Rebeca Russell MD at 12/17/16 8351 Author: Rebeca Russell MD Service: Infectious Disease Author Type: Physician Filed: 12/17/16 1069 Date of Service: 12/17/16 9691 Status: Addendum [employer] Dean: Rebeca Russell MD (Physician) Related Notes: Original Note by Rebeca Russell MD (Physician) filed at 12/17/16 6268 [facility]: Infectious Disease Progress Note Hospital [...] (198 lb 3.2 oz) (12/18 303) Physical Exam Vital signs reviewed General: Not [...] Dec 15 2016 9:30AM Referring Provider Line: [phone] ID: [id number] MRI foot left without contrast [[id number]] Impression 1. Recent amputation of the LEFT 4th toe. 2. No radiographic evidence of residual osteomyelitis in the remaining ossicles of the LEF T forefoot. 3. Moderately extensive vascular calcifications. X-ray foot left [[id number]] PROBLEM LIST Principal Problem: Osteomyelitis (HCC) Active [...] Notes by Walter Fernandez DPM at 12/17/16 1521 Author: Walter Fernandez DPM Service: Podiatry Author Type: Doctor of Podiatric [facility] cine Filed: 12/17/16 140 Date of Service: 12/17/161405 Status: Signed [employer] Dean: Walter Fernandez DPM (Doctor of Podiatric Medicine) [facility]: Podiatry Progress Note Hospital Day: [...] (12/17 1214) Heart Rate: [75-102] 75 (12/17 121) Resp: [...] Date of Service: 12/17/16 1144 Status: Signed [employer] Dean: Gerber Hay RN (Registered Nurse) Pt had large incontinent bowel movement, told RN that he has "prescription strength immodiu m" at home, RN educated pt about possible reaction to antibiotics and stress from surgery pl us being hospitalized that can cause a change in bowel habits. Will continue to monitor. Jose HAY RN rowDell harmon DO - 12/17/2016 10:59 AM PDTFormatting of this note might be different from the kar ginal. Progress Notes by Dell Archer DO at 12/17/16 1059 Author: Dell Archer DO Service: Hospitalist Author Type: Physician Filed: 12/17/16 1103 Date of Service: 12/17/16 1059 Status: Signed [employer] Dean: Dell Archer DO (Physician) PROGRESS NOTE 12/17/2016 for Kuldip Gong on the hospitalist service. ASSESSMENT & PLAN [...] 8:35 AM PDT Progress Notes by Destini Javier RPH at 12/17/16 08 Author: Destini Javier RPH Service: (none) Author Type: Pharmacist Filed: 12/17/16834 Date of Service: 12/17/16834 Status: Signed [employer] Dean: Destini Javier RPH (Pharmacist) Day 4 Vanco 1500mg IV q 12h. Todays Scr= 0.9, WBC= 14.59 with estim CrCl= 112.1 ml/min. Vanco Tr at 2000 tonight. Goal Tr 15-20 mcg/ml for osteomyelitis. Last nights level was 18.1 mcg/ml- potentially the level tonight may be elevated. Pharmacist; DESTINI JAVIER 12/17/2016 8:34 AM onver ruben Transaction, Provider Unknown - 12/17/2016 3:08 AM PDT Pharmacy Note by Jihan Jacinto RPH at 12/17/16 0308 Author: Jihan Jacinto RPH Service: Pharmacy Author Type: Pharmacist Filed: 12/17/16 0308 Date of Service: 12/17/16307 Status: Signed [employer] Dean: Jihan Jacinto RPH (Pharmacist) Clinical Pharmacy Note: [...] accumulation. Jihan Jacinto PharmD 12/17/2016 3:02 AM Walter Emerson - 12/16/2016 5:10 PM PDT Progress Notes by Walter Fernandez DPM at 12/16/161709 Author: Walter Fernandez DPM Service: Podiatry Author Type: Doctor of Podiatric Medi cine Filed: 12/16/161719 Date of Service: 12/16/161709 Status: Signed [employer] Dean: Walter Fernandez DPM (Doctor of Podiatric Medicine) [facility]: Podiatry Progress Note Hospital Day: [...] Status: Full Code WALTER FERNANDEZ DPM 12/16/2016 aranada, Isak Messina MD - 12/16/2016 12:47 PM PDTFormatting of this note might be different from the origi nal. Progress Notes by Rebeca Russell MD at 12/16/16 3295 Author: Rebeca Russell MD Service: Infectious Disease Author Type: Physician Filed: 12/16/16 1606 Date of Service: 12/16/16 1247 Status: Signed [employer] Dean: Rebeca Russell MD (Physician) [facility]: Infectious Disease Progress Note Hospital [...] at the 3rd and 4th MT. Margarita e received IV clindamycin in the ER. [...] Dec 15 2016 9:30AM Referring Provider Line: [phone] ID: [id number] MRI foot left without contrast [[id number]] Impression 1. Recent amputation of the LEFT 4th toe. 2. No radiographic evidence of residual osteomyelitis in the remaining ossicles of the LEF T forefoot. 3. Moderately extensive vascular calcifications. X-ray foot left [[id number]] PROBLEM LIST Principal Problem: Osteomyelitis (HCC) Active [...] penicillin allergy Code Status: Full Code REBECA RUSSELL MD 12/16/2016 onversion Ledesma saction, Provider Unknown - 12/16/2016 11:29 AM PDTFormatting of this note might be differen t from the original. Case Management by Jenny Vaughan RN at 12/16/16 1129 Author: Jenny Vaughan RN Service: (none) Author Type: Registered Nurse Filed: 12/16/16 9393 Date of Service: 12/16/16 1129 Status: Signed [employer] Dean: Jenny Vaughan RN (Registered Nurse) 12/16/16 1128 Discharge Planning Evaluation Admitting Diagnosis osteomyelitis Readmission No Living Arrangements Parent Support Systems Parent;Family members Type of Residence Private residence House type House-1 story Steps to enter 2 Independent with ADL's Yes Independent with Mobility Yes Mental Status Oriented Prior functional status not employed, independent Power of Delivery Tech No Anticipated Discharge Plan Post Acute Care [...] PCP is: Estrella Light PA-C Patient's insurance: Medicare/[employer] Coverage concerns: None Medication coverage/concerns: None Community resources utilized / needed: TBD pending pt progress and treatment plan. Sascha garcia need home health services along with IV abx. Discussed with patient and he states und erstanding. Referral sent to [facility] for nursing services as patient lives in [place]. Options for home IV abx services provided to pt/family and they do not have a preference. Referral to [facility] made and Tefna will follow. Pt/family requested I notify Coby at the [facility] of pt status as she ar ranges services for them. Contacted Coby and provided current discharge plan. If there is a change in plan, Coby requests to be notified as she will continue to follow patient after discharge. She also states pt will be followed by their community health nurse (Charlotte ) who works alongside [facility]. Coby [facility] [phone] Assistance in transportation: Pt's family is able [...] Date of Service: 12/16/16 1012 Status: Signed [employer] Dean: Dell Archer DO (Physician) PROGRESS NOTE 12/16/2016 for Kuldip Gong on the hospitalist service. ASSESSMENT & PLAN [...] Management by Jenny Vaughan RN at 12/15/16 6948 Author: Jenny Vaughan RN Service: (none) Author Type: Registered Nurse Filed: 12/15/16 1254 Date of Service: 12/15/16 1248 Status: Signed [employer] Dean: Jenny Vaughan RN (Registered Nurse) Attempted to [...] Note by Jihan Jacinto RPH at 12/15/16 5826 Author: Jihan Jacinto RPH Service: Pharmacy Author Type: Pharmacist Filed: 12/15/16405 Date of Service: 12/15/16405 Status: Signed [employer] Dean: Jihan Jacinto RPH (Pharmacist) Clinical Pharmacy Note: [...] 12/15/16404 Date of Service: 12/15/16404 Status: Signed [employer] Dean: Jihan Jacinto RPH (Pharmacist) Clinical Pharmacy Note: [...] original. H&P by Pavel Gallegos MD at 12/15/16 0132 Author: Pavel Gallegos MD Service: Hospitalist Author Type: Physician Filed: 12/15/16 0313 Date of Service: 12/15/16 0132 Status: Signed [employer] Dean: Pavel Gallegos MD (Physician) [facility]: Hospitalist Admission History & Physical Date [...] decided to go to the ED at [place] for further assessment. The patient denies any [...] Component Value Units Date/Time Complete Metabolic Panel [[id number]] (Abnormal) Collected: 12/15/16 0119 Specimen Information: Blood [...] 14 U/L EGFR >60 mL/min/1.73m2 POCT glucose [[id number]] (Abnormal) Collected: 12/15/16 012 GLUCOSE,POC SCREEN 258 (H) mg/dL Updated: 12/15/16 012 Blood Culture Set 1 [[id number]] Collected: 12/14/162139 Specimen Information: Blood from Blood Updated: 12/15/16 002 Blood Culture Set 2 [[id number]] Collected: 12/14/162239 Specimen Information: Blood from Blood Updated: 12/15/16 0028 Septic Lactic Acid [[id number]] Collected: 12/14/162239 LACTIC ACID 1.0 mmol/L Updated: 12/14/162348 POCT glucose [[id number]] (Abnormal) Collected: 12/14/16 233 GLUCOSE,POC SCREEN 172 (H) mg/dL Updated: 12/14/162335 Ketones,Serum [[id number]] Collected: 12/14/162144 KETONES,SERUM NEGATIVE Updated: 12/14/162229 CBC w Auto Diff [[id number]] (Abnormal) Collected: 12/14/162144 Specimen Information: Blood Updated: [...] AGREES WITH AUTOMATED RESULTS. Complete Metabolic Panel [[id number]] (Abnormal) Collected: 12/14/162144 Specimen Information: Blood Updated: [...] U/L EGFR 57 (L) mL/min/1.73m2 C-Reactive Protein [[id number]] (Abnormal) Collected: 12/14/162144 Specimen Information: Blood Updated: 12/14/162219 CRP 16.0 (H) mg/dL Sedimentation Rate (ESR) [[id number]] (Abnormal) Collected: 12/14/162144 Specimen Information: Blood Updated: [...] Procedures signed by Walter Fernandez DPM at 12/16/161614 Author: Walter Fernandez DPM Service: Podiatry Author Type: Doctor of Podiatric [facility] Filed: 12/16/16 1615 Date of Service: 12/15/161943 Status: Signed [employer] Dean: Walter Fernandez DPM (Doctor of Podiatric Medicine) [...] and second metatarsophalangeal joint and head. SURGEON Watler Fernandez, SHY[employer] RES[employer] ROOM SPECIAL EDUCATION TEACHER None utilized. ANESTHESIA Endotracheal general, local ankle [...] partial thickness and full thickness. A pulse SilverPush was used to irrigate tissue to exsanguinate [...] receive medical treatment and infection control. P/ Jocelynn/adelina/[id number] WALTER FERNANDEZ DPM documented in t his encounter Consult Notes Conversion Transaction, Provider Unknown - 12/19/2016 2:10 PM PDTFormatting of this note m ight be different from the original. Consults by Rachael Molina RN at 12/19/161409 Author: Rachael Molina RN Service: Wound/Ostomy Care Author Type: Registered Nurse Filed: 12/19/16 1417 Date of Service: 12/19/161409 Status: Signed [employer] Dean: Rachael Molina RN (Registered Nurse) [facility]: Wound Care Hospital Day: LOS: 4 days Post-Op Day: 4 Days Post-Op SUBJECTIVE Patient Summary: NPWT dressing change to left foot. Possible discharge tomorrow. [facility] is working on approval of portable wound [...] week, Next dressing change due Discharge plan: [facility]. ANDREY Vargas working on getting patient a helen rity wound vac until patient's insurance approves a home portable unit. Thank you for this consult. Please call if there are any additional questions. Rachael Molina RN, CWON 2:10 PM 12/19/2016 onver ruben Transaction, Provider Unknown - 12/17/2016 4:53 PM PDT Consults by Rachael Molina RN at 12/17/16 0504 Author: Rachael Molina RN Service: Wound/Ostomy Care Author Type: Registered Nurse Filed: 12/17/16 8203 Date of Service: 12/17/161652 Status: Addendum [employer] Dean: Rachael Molina RN (Registered Nurse) Related Notes: Original Note by Rachael Molina RN (Registered Nurse) filed at 12/17/16 1 707 Consult Orders: 1. Wound Care Evaluation and Treat [[id number]] ordered by Walter Fernandez DPM at 1722 [facility]: Wound Care Consult Note Hospital Day: [...] bearing to left foot, or per Dr. Gia mosley's orders. PT eval tomorrow. Thank you for this consult. Please call if there are any additional questions. Rachael Molina RN, CWON 4:53 PM 12/17/2016 Walter Emerson - 12/15/2016 4:19 PM PDT Consult* by Walter Fernandez DPM at 12/15/161618 Author: Walter Fernandez DPM Service: Podiatry Author Type: Doctor of Podiatric Medi cine Filed: 12/15/16 1639 Date of Service: 12/15/161618 Status: Signed [employer] Dean: Walter Fernandez DPM (Doctor of Podiatric Medicine) [facility]: Podiatry Initial Consult Note Date of Admission: 12/14/2016 Reason for Consultation: osteomyelitis left 4th ray with sepsis. Requesting Physician: Dr. Kwabena Archer, Hospitalist History Obtained From: patient CHIEF COMPLAINT: Infected left foot HISTORY OF PRESENT ILLNESS The patient is 51 y.o. male with significant past medical history of ulcer that got infecte d and now is severe. Patient was seen in [place] by Dr. Raf DPM who told him [...] C) (12/16 1631) BP: (120-151)/(71-89) 140/81 mmHg (12/16 1631) Heart Rate: [83-113] 85 (12/16 1631) Resp: [16-20] 20 (12/16 1631) SpO2: [94 %-100 %] 99 % (12/16 1631) Height: [177.8 cm (5' 10")] 177.8 cm (5' 10") (12/15 338) Weight: [86.637 kg (191 lb)-89.177 kg (196 lb 9.6 oz)] 89.177 kg (196 lb 9.6 oz) (12/15 03 39) BMI (Calculated): [28.3] 28.3 (12/15 0339) Physical Exam Constitutional: He is oriented to [...] of this patient. WALTER FERNANDEZ DPM 12/15/2016 aranada, Isak Messina MD - 12/15/2016 12:54 PM PDTFormatting of this note might be different from the origi nal. Consult* by Rebeca Russell MD at 12/15/16 1253 Author: Rebeca Russell MD Service: Infectious Disease Author Type: Physician Filed: 12/15/16 1803 Date of Service: 12/15/16 1252 Status: Addendum [employer] Dean: Rebeca Russell MD (Physician) Related Notes: Original Note by Rebeca Russell MD (Physician) filed at 12/15/16 1800 [facility]: Infectious Disease Initial Consult Note Date [...] (37.8 C)] 100 F (37.8 C) (12/15 1128) BP: (120-151)/(71-89) 128/73 mmHg (12/15 1128) Heart Rate: [83-113] 90 (12/15 1128) Resp: [16-20] 20 (12/15 1128) SpO2: [94 %-100 %] 99 % (12/15 1128) Height: [177.8 cm (5' 10")] 177.8 cm (5' 10") (12/15 338) Weight: [86.637 kg (191 lb)-89.177 kg (196 lb 9.6 oz)] 89.177 kg (196 lb 9.6 oz) (12/15 02 39) BMI (Calculated): [28.3] 28.3 (12/15 338) [...] Dec 15 2016 9:30AM Referring Provider Line: [phone] ID: [id number] MRI foot left without contrast [[id number]] PROBLEM LIST Principal Problem: Osteomyelitis (HCC) Active [...] Date of Service: 12/15/16 1057 Status: Signed [employer] Dean: Chase Edouard RN (Registered Nurse) Consult Orders: 1. Wound Care Evaluation and Treat [[id number]] ordered by Pavel Gallegos MD at 0313 [facility]: Wound Care Consult Note Hospital Day: [...] Notes by Erick Beatty RN at 12/14/16 1582 Author: Eirck Beatty RN Service: (none) Author Type: Registered Nurse Filed: 12/15/16 0023 Date of Service: 12/14/16 2342 Status: Signed [employer] Dean: Erick Beatty RN (Registered Nurse) Pt given crackers and OJ per PROSPER Gerard RN 12/15/1622 onver ruben Transaction, Provider Unknown - 12/14/2016 10:27 PM PDT ED Notes by Trevor Cristobal at 12/14/162226 Author: Trevor Cristobal Service: Emergency Department Author Type: Manager Training And Development Filed: 12/14/162228 Date of Service: 12/14/162226 Status: Signed [employer] Dean: Trevor Cristobal ([employer]ater) Received records from [facility]. Given to JENNIFER Dickson. Trevor Cristobal 12/14/162228 onver ruben Transaction, Provider Unknown - 12/14/2016 10:07 PM PDT ED Notes by Trevor Cristobal at 12/14/162206 Author: Trevor Cristobal Service: Emergency Department Author Type: Manager Training And Development Filed: 12/14/162207 Date of Service: 12/14/162206 Status: Signed [employer] Dean: Trevor Cristobal ([employer]) Spoke with [facility] Emergency Department. They will send records from this past weekend to our facility. Trevor Cristobal 12/14/162207 onver ruben Transaction, Provider Unknown - 12/14/2016 9:53 PM PDT ED Notes by Robbie Rizo RN at 12/14/162152 Author: Robbie Rizo RN Service: (none) Author Type: Registered Nurse Filed: 12/15/16 0016 Date of Service: 12/14/162152 Status: Addendum [employer] Dean: Robbie Rizo RN (Registered Nurse) Related Notes: Original Note by Robbie Rizo RN (Registered Nurse) filed at 12/14/16 2 350 Patient states he "walked a lot" on 12/07, noticed a blister and pain. Was seen at [facility] on 12/09 and received IV antibiotics and rx for PO antibiotics. Wound has progressed since. Ciprofloxacin 500mg bid, clindamycin 300mg qid. Robbie Rizo RN 12/15/16 0016 onver ruben Transaction, Provider Unknown - 12/14/2016 9:32 PM PDT ED Notes by Robbie Rizo RN at 12/14/162131 Author: Robbie Rizo RN Service: (none) Author Type: Registered Nurse Filed: 12/14/162132 Date of Service: 12/14/162131 Status: Signed [employer] Dean: Robbie Rizo RN (Registered Nurse) "I was [...] PA-C Service: Emergency Department Author Type: Physician Glove Finisher - Certified Filed: 12/15/16 0844 Date of Service: 12/14/162120 Status: Attested [employer] Dean: Yessi Zamora PA-C (Physician Glove Finisher - Certified) Cosigner: Bridger Murillo DO at 12/18/162102 Attestation signed by Bridger Murillo DO at 12/18/162102 I have reviewed the note and supervised the mid-level provider. Procedures [facility] 7TH FLOOR [facility] History of Present Illness Patient Identification Kuldip Gong is a 51 y.o. male. Patient information [...] of antibiotics x2 days by pcp from [facility] in [place] , with out Relief. Pt state he fell on porch and hit left foot 6 days ago Hx of insulin dep diabetics. Hasnt used insulin a in a couple of days doesn't check his sug ars Uses novolog 12 units before meals, lantus 25 units q hs Denies fevers chills or other symptoms PCP; Estrella CHENG at [facility] Endo: Darcie Past Medical History Diagnosis Date [...] been taking his insulin, seen pcp on [facility] and told come here for furthe r [...] IV and IvFLuids 2340 repeat glucose 172, Dr Later notified . He has rec'd 2 [...] Value Ref Range Date/Time Complete Metabolic Panel [[id number]] (Abnormal) Collected: 12/15/16 011 Order Status: Completed Specimen Information: Blood Updated: [...] >60 >60 mL/min/1.73m2 Blood Culture Set 1 [[id number]] Collected: 12/14/162139 Order Status: Sent Specimen Information: Blood from Blood Updated: 12/15/1627 Blood Culture Set 2 [[id number]] Collected: 12/14/162239 Order Status: Sent Specimen Information: Blood from Blood Updated: 12/15/1627 Septic Lactic Acid [[id number]] Collected: 12/14/162239 Order Status: Completed Updated: 12/14/162348 LACTIC ACID 1.0 0.4 - 2.0 mmol/L POC Arterial Blood Gas [[id number]] (Abnormal) Collected: 12/14/162256 Order Status: Completed Updated: 12/14/162301 POC FIO2 21 % pH, Art 7.315 (L) 7.350 - 7.450 POC PCO2 43 35 - 45 mmHg POC p02 73 (L) 80 - 105 mmHg POC HCO3 22 22 - 26 mmol/L POC TCO2 23 23 - 27 mEq/L POC BASE DEFICIT 5 (H) 0.0 - 2.0 mmol/L POC S02 93 (L) 95 - 98 % Ketones,Serum [[id number]] Collected: 12/14/162144 Order Status: Completed Updated: 12/14/162229 KETONES,SERUM NEGATIVE NEGATIVE CBC w Auto Diff [[id number]] (Abnormal) Collected: 12/14/162144 Order Status: Completed Specimen [...] AGREES WITH AUTOMATED RESULTS. Complete Metabolic Panel [[id number]] (Abnormal) Collected: 12/14/162144 Order Status: Completed Specimen [...] EGFR 57 (L) >60 mL/min/1.73m2 C-Reactive Protein [[id number]] (Abnormal) Collected: 12/14/162144 Order Status: Completed Specimen Information: Blood Updated: 12/14/162219 CRP 16.0 (H) <0.5 mg/dL Sedimentation Rate (ESR) [[id number]] (Abnormal) Collected: 12/14/162144 Order Status: Completed Specimen Information: Blood Updated: 12/14/162208 ESR 130 (H) 0 - 15 mm/Hr Radiology and EKG Evaluation Imaging Results MRI foot left without contrast (Preliminary result) Result time: 12/15/16 00:40:08 Preliminary result by Rad Results In [place] (12/15/16 00:40:08) Narrative: Preliminary [facility] radiology report: [...] type 2 diabetes mellitus with hyperglycemia, unspecified 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 Op Note by Walter Fernandez DPM at 12/15/161940 Author: Walter Fernandez DPM Service: Podiatry Author Type: Doctor of Podiatric Medi cine Filed: 12/15/161945 Date of Service: 12/15/161940 Status: Signed [employer] Dean: Walter Fernandez DPM (Doctor of Podiatric Medicine) [facility]: Podiatry Operative Note Pre-operative Diagnosis: Osteomyelitis 4th ray left foot Post-operative Diagnosis: Same Procedure(s): Amputation 4th ray left Surgeon: WALTER FERNANDEZ DPM Glove Finisher(s): none Anesthesia: General endotrachial anesthesia Estimated Blood [...] Date of Service: 12/15/16 1257 Status: Addendum [employer] Dean: Dell Archer DO (Physician) Related Notes: Original [...] | | | Fingerstick | performed at [facility];[address] | | LAB | | | | [address];[place], [place] | | | | | | [address] | | | | + + + [...] EXTERNAL | | | | performed at [facility];[address] | | LAB | | | | [address];[place] | | | | | | [address] | | | | + + + [...] EXTERNAL | | | | performed at [facility];[address] | K/uL | LAB | | | | [address];[place] | | | | | | [address] | | | | + + + + + + | Non- | 4.00 (L)Comment: Testing | 4.20 - 5.70 | EXTERNAL | | | Red Blood | performed at [facility];888 | M/uL | LAB | | | Cells | [address];[place] | | | | | Counted | [id number] | | | | + + + + + + | Hemoglobin | 11.6 (L)Comment: Testing | 13.2 - 17.0 | EXTERNAL | | | | performed at [facility];888 | g/dL | LAB | | | | [address];[place] | | | | | | [address] | | | | + + + + + + | Hematocrit, | 33.9 (L)Comment: Testing | 39.0 - 50.0 % | EXTERNAL | | | POC | performed at [facility];[address] | | LAB | | | | [address];[place] | | | | | | [address] | | | | + + + + + + | MCV | 84.7Comment: Testing | 80.0 - 100.0 fl | EXTERNAL | | | | performed at [facility];[address] | | LAB | | | | [address];[place] | | | | | | [address] | | | | + + + + + + | MCH | 28.9Comment: Testing | 27.0 - 34.0 pg | EXTERNAL | | | | performed at [facility];[address] | | LAB | | | | [address];[place] | | | | | | [address] | | | | + + + + + + | MCHC | 34.1Comment: Testing | 32.0 - 35.5 | EXTERNAL | | | | performed at [facility];888 | g/dL | LAB | | | | [address];[place] | | | | | | [address] | | | | + + + + + + | RDW-CV | 42.0Comment: Testing | 37 - 53 fl | EXTERNAL | | | | performed at [facility];[address] | | LAB | | | | [address];[place] | | | | | | [address] | | | | + + + + + + | Platelet | 392Comment: Testing | 150 - 400 K/uL | EXTERNAL | | | Count | performed at [facility];[address] | | LAB | | | Plasma | [address];[place] | | | | | | [address] | | | | + + + + + + | MPV | 7.0Comment: Testing | fl | EXTERNAL | | | | performed at [facility];[address] | | LAB | | | | [address];[place] | | | | | | [address] | | | | + + + + + + | Differentia | MANUALComment: Testing | | EXTERNAL | | | l Type | performed at [facility];[address] | | LAB | | | | [address];[place] | | | | | | [address] | | | | + + + + + + | Segmented | 69Comment: Testing | % | EXTERNAL | | | Neutrophils | performed at [facility];[address] | | LAB | | | Manual | [address];[place] | | | | | | [address] | | | | + + + + + + | Lymphocytes | 21Comment: Testing | % | EXTERNAL | | | Manual | performed at [facility];[address] | | LAB | | | | [address];[place] | | | | | | [address] | | | | + + + + + + | Monocytes | 4Comment: Testing | % | EXTERNAL | | | Manual | performed at [facility];[address] | | LAB | | | | [address];[place] | | | | | | [address] | | | | + + + + + + | Eosinophils | 6Comment: Testing | % | EXTERNAL | | | Manual | performed at [facility];[address] | | LAB | | | | [address];[place] | | | | | | [address] | | | | + + + + + + | Absolute | 5.08Comment: Testing | 1.90 - 7.40 | EXTERNAL | | | Neutrophils | performed at [facility];[address] | K/uL | LAB | | | | [address];[place] | | | | | | [address] | | | | + + + + + + | Absolute | 1.55Comment: Testing | 1.00 - 3.90 | EXTERNAL | | | Lymphocytes | performed at [facility];[address] | K/uL | LAB | | | | [address];[place] | | | | | | [address] | | | | + + + + + + | Absolute | 0.29Comment: Testing | 0.00 - 0.80 | EXTERNAL | | | Monocytes | performed at [facility];[address] | K/uL | LAB | | | | [address];[place] | | | | | | [address] | | | | + + + + + + | Absolute | 0.44Comment: Testing | 0.00 - 0.50 | EXTERNAL | | | Eosinophils | performed at [facility];[address] | K/uL | LAB | | | | [address];[place] | | | | | | [address] | | | | + + + + + + | RBC | NORMALComment: Testing | | EXTERNAL | | | Morphology | performed at [facility];[address] | | LAB | | | | [address];[place], [place] | | | | | | [address] | | | | + + + [...] EXTERNAL | | | | performed at [facility] | | LAB | | | | [address];[place], [place] | | | | | | [address] | | | | + + + [...] | | | Fingerstick | performed at [facility];[address] | | LAB | | | | [address];[place], [place] | | | | | | [address] | | | | + + + [...] | | | Fingerstick | performed at [facility] | | LAB | | | | [address];[place] | | | | | | [address] | | | | + + + [...] | | | Fingerstick | performed at [facility];[address] | | LAB | | | | [address];[place], [place] | | | | | | [address] | | | | + + + [...] | | | Fingerstick | performed at [facility];[address] | | LAB | | | | [address];[place] | | | | | | [address] | | | | + + + [...] | | | Fingerstick | performed at [facility];[address] | | LAB | | | | [address];[place], [place] | | | | | | [address] | | | | + + + [...] | | | Fingerstick | performed at [facility];[address] | | LAB | | | | [address];[place] | | | | | | [address] | | | | + + + [...] | | | Fingerstick | performed at [facility];[address] | | LAB | | | | [address];[place], [place] | | | | | | [address] | | | | + + + [...] | | | Fingerstick | performed at [facility];[address] | | LAB | | | | [address];[place] | | | | | | [address] | | | | + + + [...] | EXTERNAL LAB | | performed at [facility];[address] [place] [address];[place] [address] TOXIN A | | | NEGATIVE Testing performed at | | | [facility];[address] [place] [address];[place] [address] C DIFF INTERPRETATION | | | Negative for toxigenic C.difficile. Testing performed at | | | [facility];[address] [place] [address];[place] [address] | | + + + + +---------+ [...] | | | Fingerstick | performed at [facility];[address] | | LAB | | | | [address];[place] | | | | | | [address] | | | | + + + [...] | | | | | | [place] [address] | | | | + + + + + + | Non- | 3.92 (L)Comment: Testing | 4.20 - 5.70 | EXTERNAL | | | Red Blood | performed at [facility], [address] | M/uL | LAB | | | Cells | [address], | | | | | Counted | [place] [address] | | | | + + + + + + | Hemoglobin | 11.2 (L)Comment: Testing | 13.2 - 17.0 | EXTERNAL | | | | performed at [facility], [address] | g/dL | LAB | | | | [address], | | | | | | [place] [address] | | | | + + + + + + | Hematocrit, | 33.6 (L)Comment: Testing | 39.0 - 50.0 % | EXTERNAL | | | POC | performed at [facility], [address] | | LAB | | | | [address], | | | | | | [place] [address] | | | | + + + + + + | MCV | 85.9Comment: Testing | 80.0 - 100.0 fl | EXTERNAL | | | | performed at [facility], [address] | | LAB | | | | [address], | | | | | | [place] [address] | | | | + + + + + + | MCH | 28.7Comment: Testing | 27.0 - 34.0 pg | EXTERNAL | | | | performed at [facility], [address] | | LAB | | | | [address], | | | | | | [place] [address] | | | | + + + + + + | MCHC | 33.4Comment: Testing | 32.0 - 35.5 | EXTERNAL | | | | performed at [facility], [address] | g/dL | LAB | | | | [address], | | | | | | [place] [address] | | | | + + + + + + | RDW-CV | 41.1Comment: Testing | 37 - 53 fl | EXTERNAL | | | | performed at [facility], [address] | | LAB | | | | [address], | | | | | | [place] [address] | | | | + + + + + + | Platelet | 341Comment: Testing | 150 - 400 K/uL | EXTERNAL | | | Count | performed at [facility], [address] | | LAB | | | Plasma | [address], | | | | | | [place] [address] | | | | + + + + + + | MPV | 7.6Comment: Testing | fl | EXTERNAL | | | | performed at [facility], [address] | | LAB | | | | [address], | | | | | | [place] [address] | | | | + + + + + + | Differentia | AUTOMATEDComment: | | EXTERNAL | | | l Type | Testing performed at | | LAB | | | | [facility], [address] | | | | | | [place] | | | | | | [address] | | | | + + + [...] | | | | [place] [address] | | | | + + + + + + | % Monocytes | 6.15Comment: Testing | % | EXTERNAL | | | | performed at [facility], [address] | | LAB | | | | [address], | | | | | | [place] [address] | | | | + + + + + + | % | 4.73Comment: Testing | % | EXTERNAL | | | Eosinophils | performed at [facility], [address] | | LAB | | | | [address], | | | | | | [place] [address] | | | | + + + + + + | % Basophils | 0.86Comment: Testing | % | EXTERNAL | | | | performed at [facility], [address] | | LAB | | | | [address], | | | | | | [place] [address] | | | | + + + + + + | Absolute | 8.38 (H)Comment: Testing | 1.90 - 7.40 | EXTERNAL | | | Segmented | performed at [facility], [address] | K/uL | LAB | | | Neutrophils | [address], | | | | | | [place] [address] | | | | + + + + + + | Absolute | 1.32Comment: Testing | 1.00 - 3.90 | EXTERNAL | | | Lymphocytes | performed at [facility], [address] | K/uL | LAB | | | | [address], | | | | | | [place] [address] | | | | + + + + + + | Absolute | 0.68Comment: Testing | 0.00 - 0.80 | EXTERNAL | | | Monocytes | performed at [facility], [address] | K/uL | LAB | | | | [address], | | | | | | [place] [address] | | | | + + + + + + | Absolute | 0.52 (H)Comment: Testing | 0.00 - 0.50 | EXTERNAL | | | Eosinophils | performed at [facility], [address] | K/uL | LAB | | | | [address], | | | | | | [place] [address] | | | | + + + + + + | Absolute | 0.10Comment: Testing | 0.00 - 0.10 | EXTERNAL | | | Basophils | performed at [facility], [address] | K/uL | LAB | | | | [address], | | | | | | [place] [address] | | | | + + + [...] | | | | [place] [address] | | | | + + + + + + | K | 3.8Comment: Testing | 3.5 - 4.9 | EXTERNAL | | | | performed at [facility], [address] | mmol/L | LAB | | | | [address], | | | | | | [place] [address] | | | | + + + + + + | Cl | 105Comment: Testing | 99 - 109 mmol/L | EXTERNAL | | | | performed at [facility], [address] | | LAB | | | | [address], | | | | | | [place] [address] | | | | + + + + + + | CO2 | 25Comment: Testing | 23 - 32 mmol/L | EXTERNAL | | | | performed at [facility], [address] | | LAB | | | | [address], | | | | | | [place] [address] | | | | + + + + + + | Anion Gap | 12Comment: Testing | 5 - 20 mmol/L | EXTERNAL | | | | performed at [facility], [address] | | LAB | | | | [address], | | | | | | [place] [address] | | | | + + + + + + | Glucose, | 236 (H)Comment: Testing | 65 - 99 mg/dL | EXTERNAL | | | Fasting | performed at [facility], [address] | | LAB | | | | [address], | | | | | | [place] [address] | | | | + + + + + + | BUN | 6 (L)Comment: Testing | 8 - 25 mg/dL | EXTERNAL | | | | performed at [facility], [address] | | LAB | | | | [address], | | | | | | [place] [address] | | | | + + + + + + | Creatinine | 0.9Comment: Testing | 0.70 - 1.30 | EXTERNAL | | | | performed at [facility], [address] | mg/dL | LAB | | | | [address], | | | | | | [place] [address] | | | | + + + + + + | BUN/Creatin | 7Comment: Testing | | EXTERNAL | | | ine Ratio | performed at [facility], [address] | | LAB | | | | [address], | | | | | | [place] [address] | | | | + + + + + + | Calcium | 8.3 (L)Comment: Testing | 8.5 - 10.5 | EXTERNAL | | | | performed at [facility], [address] | mg/dL | LAB | | | | [facility] | | | | | | [place] [address] | | | | + + + [...] [address] | | | | | | [address], | | | | | | [place] [address] | | | | + + + [...] | | | Fingerstick | performed at [facility];[address] | | LAB | | | | [address];[place] | | | | | | [address] | | | | + + + [...] | | | | | performed at [facility] | | | | | | [facility];[place], [place] | | | | | | [address] | | | | + + + [...] | | | Fingerstick | performed at [facility];[address] | | LAB | | | | [address];[place], [place] | | | | | | [address] | | | | + + + [...] | | | Fingerstick | performed at [facility];[address] | | LAB | | | | [address];[place], [place] | | | | | | [address] | | | | + + + [...] | | | Fingerstick | performed at [facility];[address] | | LAB | | | | Fabio Man;[place], [place] | | | | | | [address] | | | | + + + [...] | | | | [facility], [address] [facility] | | | | | | [place] | | | | | | [address] | | | | + + + + + + | Non- | 4.13 (L)Comment: Testing | 4.20 - 5.70 | EXTERNAL | | | Red Blood | performed at [facility], [address] | M/uL | LAB | | | Cells | [address], | | | | | Counted | [place] [address] | | | | + + + + + + | Hemoglobin | 11.7 (L)Comment: Testing | 13.2 - 17.0 | EXTERNAL | | | | performed at [facility], [address] | g/dL | LAB | | | | [address], | | | | | | [place] [address] | | | | + + + + + + | Hematocrit, | 34.8 (L)Comment: Testing | 39.0 - 50.0 % | EXTERNAL | | | POC | performed at [facility], [address] | | LAB | | | | [address], | | | | | | [place] [address] | | | | + + + + + + | [facility] | 84.2Comment: Testing | 80.0 - 100.0 fl | EXTERNAL | | | | performed at [facility], [address] | | LAB | | | | [address], | | | | | | [place] [address] | | | | + + + + + + | MCH | 28.2Comment: Testing | 27.0 - 34.0 pg | EXTERNAL | | | | performed at [facility], [address] | | LAB | | | | [address], | | | | | | [place] [address] | | | | + + + + + + | MCHC | 33.5Comment: Testing | 32.0 - 35.5 | EXTERNAL | | | | performed at [facility], [address] | g/dL | LAB | | | | [address], | | | | | | [place] [address] | | | | + + + + + + | RDW-CV | 42.0Comment: Testing | 37 - 53 fl | EXTERNAL | | | | performed at [facility], [address] | | LAB | | | | [address], | | | | | | [place] [address] | | | | + + + + + + | Platelet | 329Comment: Testing | 150 - 400 K/uL | EXTERNAL | | | Count | performed at [facility], [address] | | LAB | | | Plasma | [address], | | | | | | [place] [address] | | | | + + + + + + | MPV | 7.9Comment: Testing | fl | EXTERNAL | | | | performed at [facility], [address] | | LAB | | | | [address], | | | | | | [place] [address] | | | | + + + + + + | Differentia | AUTOMATEDComment: | | EXTERNAL | | | l Type | Testing performed at | | LAB | | | | [facility], [address] | | | | | | [place] | | | | | | [address] | | | | + + + + + + | % Segmented | 83.29Comment: Testing | % | EXTERNAL | | | | performed at [facility], [address] | | LAB | | | Neutrophils | [address], | | | | | | [place] [address] | | | | + + + + + + | % | 8.71Comment: Testing | % | EXTERNAL | | | Lymphocytes | performed at [facility], [address] | | LAB | | | | [address], | | | | | | [place] [address] | | | | + + + + + + | % Monocytes | 5.08Comment: Testing | % | EXTERNAL | | | | performed at [facility], [address] | | LAB | | | | [address], | | | | | | [place] [address] | | | | + + + + + + | % | 2.32Comment: Testing | % | EXTERNAL | | | Eosinophils | performed at [facility], [address] | | LAB | | | | [address], | | | | | | [place] [address] | | | | + + + + + + | % Basophils | 0.60Comment: Testing | % | EXTERNAL | | | | performed at [facility], [address] | | LAB | | | | [address], | | | | | | [place] [address] | | | | + + + + + + | Absolute | 12.15 (H)Comment: | 1.90 - 7.40 | EXTERNAL | | | Segmented | Testing performed at | K/uL | LAB | | | Neutrophils | [facility], [address] | | | | | | [place] | | | | | | [address] | | | | + + + + + + | Absolute | 1.27Comment: Testing | 1.00 - 3.90 | EXTERNAL | | | Lymphocytes | performed at [facility], [address] | K/uL | LAB | | | | [address], | | | | | | [place] [address] | | | | + + + + + + | Absolute | 0.74Comment: Testing | 0.00 - 0.80 | EXTERNAL | | | Monocytes | performed at [facility], [address] | K/uL | LAB | | | | [address], | | | | | | [place] [address] | | | | + + + + + + | Absolute | 0.34Comment: Testing | 0.00 - 0.50 | EXTERNAL | | | Eosinophils | performed at [facility], [address] | K/uL | LAB | | | | [address], | | | | | | [place] [address] | | | | + + + + + + | Absolute | 0.09Comment: Testing | 0.00 - 0.10 | EXTERNAL | | | Basophils | performed at [facility], [address] | K/uL | LAB | | | | [address], | | | | | | [place] [address] | | | | + + + [...] | | | | [place] [address] | | | | + + + + + + | K | 3.8Comment: Testing | 3.5 - 4.9 | EXTERNAL | | | | performed at [facility], [address] | mmol/L | LAB | | | | [address], | | | | | | [place] [address] | | | | + + + + + + | Cl | 104Comment: Testing | 99 - 109 mmol/L | EXTERNAL | | | | performed at [facility], [address] | | LAB | | | | [address], | | | | | | [place] [address] | | | | + + + + + + | CO2 | 27Comment: Testing | 23 - 32 mmol/L | EXTERNAL | | | | performed at [facility], [address] | | LAB | | | | [address], | | | | | | [place] [address] | | | | + + + + + + | Anion Gap | 11Comment: Testing | 5 - 20 mmol/L | EXTERNAL | | | | performed at [facility], [address] | | LAB | | | | [address], | | | | | | [place] [address] | | | | + + + + + + | Glucose, | 196 (H)Comment: Testing | 65 - 99 mg/dL | EXTERNAL | | | Fasting | performed at [facility], [address] | | LAB | | | | [address], | | | | | | [place] [address] | | | | + + + + + + | BUN | 5 (L)Comment: Testing | 8 - 25 mg/dL | EXTERNAL | | | | performed at [facility], [address] | | LAB | | | | [address], | | | | | | [place] [address] | | | | + + + + + + | Creatinine | 0.9Comment: Testing | 0.70 - 1.30 | EXTERNAL | | | | performed at [facility], [address] | mg/dL | LAB | | | | [address], | | | | | | [place] [address] | | | | + + + + + + | BUN/Creatin | 6Comment: Testing | | EXTERNAL | | | ine Ratio | performed at [facility], [address] | | LAB | | | | [address], | | | | | | [place] [address] | | | | + + + + + + | Calcium | 8.4 (L)Comment: Testing | 8.5 - 10.5 | EXTERNAL | | | | performed at [facility], [address] | mg/dL | LAB | | | | [address], | | | | | | [place] [address] | | | | + + + [...] | | | | [place] [address] | | | | + + + [...] | | | Fingerstick | performed at [facility];[address] | | LAB | | | | [address];[place] | | | | | | [address] | | | | + + + [...] | | | Fingerstick | performed at [facility];[address] | | LAB | | | | [address];[place] | | | | | | [address] | | | | + + + [...] | | | | | performed at [facility] | | | | | | [facility];[place], [place] | | | | | | [address] | | | | + + + [...] | | | Fingerstick | performed at [facility];[address] | | LAB | | | | [address];[place], [place] | | | | | | [address] | | | | + + + [...] | | | Fingerstick | performed at [facility];[address] | | LAB | | | | [address];[place], [place] | | | | | | [address] | | | | + + + [...] Conversion - 05/16/2019 2:48 AM PDT KULDIP GONGXR FOOT LEFT12/16/2016 | | 8:37 AM History: [...] Matt | | | | | | [place], [place] | | | | | | [address] | | | | + + + + + + | Non- | 4.31Comment: Testing | 4.20 - 5.70 | EXTERNAL | | | Red Blood | performed at [facility], [address] | M/uL | LAB | | | Cells | [address], | | | | | Counted | [place] [address] | | | | + + + + + + | Hemoglobin | 12.3 (L)Comment: Testing | 13.2 - 17.0 | EXTERNAL | | | | performed at [facility], [address] | g/dL | LAB | | | | [address], | | | | | | [place] [address] | | | | + + + + + + | Hematocrit, | 36.4 (L)Comment: Testing | 39.0 - 50.0 % | EXTERNAL | | | POC | performed at [facility], [address] | | LAB | | | | [address], | | | | | | [place] [address] | | | | + + + + + + | MCV | 84.5Comment: Testing | 80.0 - 100.0 fl | EXTERNAL | | | | performed at [facility], [address] | | LAB | | | | [address], | | | | | | [place] [address] | | | | + + + + + + | MCH | 28.5Comment: Testing | 27.0 - 34.0 pg | EXTERNAL | | | | performed at [facility], [address] | | LAB | | | | [address], | | | | | | [place] [address] | | | | + + + + + + | MCHC | 33.8Comment: Testing | 32.0 - 35.5 | EXTERNAL | | | | performed at [facility], [address] | g/dL | LAB | | | | [address], | | | | | | [place] [address] | | | | + + + + + + | RDW-CV | 42.9Comment: Testing | 37 - 53 fl | EXTERNAL | | | | performed at [facility], [address] | | LAB | | | | [address], | | | | | | [place] [address] | | | | + + + + + + | Platelet | 307Comment: Testing | 150 - 400 K/uL | EXTERNAL | | | Count | performed at [facility], [address] | | LAB | | | Plasma | [address], | | | | | | [place] [address] | | | | + + + + + + | MPV | 8.0Comment: Testing | fl | EXTERNAL | | | | performed at [facility], [address] | | LAB | | | | [address], | | | | | | [place] [address] | | | | + + + + + + | Differentia | AUTOMATEDComment: | | EXTERNAL | | | l Type | Testing performed at | | LAB | | | | [facility], [address] | | | | | | [place] | | | | | | [address] | | | | + + + + + + | % Segmented | 85.00Comment: Testing | % | EXTERNAL | | | | performed at [facility], [address] | | LAB | | | Neutrophils | [address], | | | | | | [place] [address] | | | | + + + + + + | % | 7.15Comment: Testing | % | EXTERNAL | | | Lymphocytes | performed at [facility], [address] | | LAB | | | | [address], | | | | | | [place] [address] | | | | + + + + + + | % Monocytes | 5.39Comment: Testing | % | EXTERNAL | | | | performed at [facility], [address] | | LAB | | | | [address], | | | | | | [place] [address] | | | | + + + + + + | % | 1.86Comment: Testing | % | EXTERNAL | | | Eosinophils | performed at [facility], [address] | | LAB | | | | [address], | | | | | | [place] [address] | | | | + + + + + + | % Basophils | 0.60Comment: Testing | % | EXTERNAL | | | | performed at [facility], [address] | | LAB | | | | [address], | | | | | | [place] [address] | | | | + + + + + + | Absolute | 13.51 (H)Comment: | 1.90 - 7.40 | EXTERNAL | | | Segmented | Testing performed at | K/uL | LAB | | | Neutrophils | [facility], [address] | | | | | | [place] | | | | | | [address] | | | | + + + + + + | Absolute | 1.14Comment: Testing | 1.00 - 3.90 | EXTERNAL | | | Lymphocytes | performed at [facility], [address] | K/uL | LAB | | | | [address], | | | | | | [place] [address] | | | | + + + + + + | Absolute | 0.86 (H)Comment: Testing | 0.00 - 0.80 | EXTERNAL | | | Monocytes | performed at [facility], [address] | K/uL | LAB | | | | [address], | | | | | | [place] [address] | | | | + + + + + + | Absolute | 0.30Comment: Testing | 0.00 - 0.50 | EXTERNAL | | | Eosinophils | performed at [facility], [address] | K/uL | LAB | | | | [address], | | | | | | [place] [address] | | | | + + + + + + | Absolute | 0.10Comment: Testing | 0.00 - 0.10 | EXTERNAL | | | Basophils | performed at [facility], [address] | K/uL | LAB | | | | [address] [place], | | | | | | [place] [address] | | | | + + + [...] | | | | [place] [address] | | | | + + + + + + | K | 4.0Comment: Testing | 3.5 - 4.9 | EXTERNAL | | | | performed at [facility], [address] | mmol/L | LAB | | | | [address], | | | | | | [place] [address] | | | | + + + + + + | Cl | 103Comment: Testing | 99 - 109 mmol/L | EXTERNAL | | | | performed at [facility], [address] | | LAB | | | | [address], | | | | | | [place] [address] | | | | + + + + + + | CO2 | 24Comment: Testing | 23 - 32 mmol/L | EXTERNAL | | | | performed at [facility], [address] | | LAB | | | | [address], | | | | | | [place] [address] | | | | + + + + + + | Anion Gap | 14Comment: Testing | 5 - 20 mmol/L | EXTERNAL | | | | performed at [facility], [address] | | LAB | | | | [address], | | | | | | [place] [address] | | | | + + + + + + | Glucose, | 207 (H)Comment: Testing | 65 - 99 mg/dL | EXTERNAL | | | Fasting | performed at [facility], [address] | | LAB | | | | [address], | | | | | | [place] [address] | | | | + + + + + + | BUN | 7 (L)Comment: Testing | 8 - 25 mg/dL | EXTERNAL | | | | performed at [facility], [address] | | LAB | | | | [address], | | | | | | [place] [address] | | | | + + + [...] | | | | [place] [address] | | | | + + + + + + | Calcium | 8.2 (L)Comment: Testing | 8.5 - 10.5 | EXTERNAL | | | | performed at [facility], [address] | mg/dL | LAB | | | | [address] [facility], | | | | | | [place] [address] | | | | + + + [...] W | | | | | | [facility], | | | | | | [place] [address] | | | | + + + [...] | | | Fingerstick | performed at [facility];[address] | | LAB | | | | [address];[place] | | | | | | [address] | | | | + + + [...] with a red-brown discoloration of the bone. [employer]er | | | sections are submitted in cassette B1 and placed into decal prior to | | | processing. FAM:[facility] MICROSCOPIC EXAMINATION: A-B. Histologic | | | sections of all submitted blocks are examined by light microscopy. | | | These findings, together with the gross examination, support the | | | pathologic diagnosis. PERFORMING LABORATORY: Professional | | | interpretation and technical preparation was performed by [facility] | | | [facility], [facility], [address] [place] [address], | | | [place] [address] (Intensive Care Ambulance Paramedic: Rafat Lorenzo M.D.; IA#: | | | [id number]). Diagnostician: Isi Gore MD Pathologist | | [...] | | | Fingerstick | performed at [facility];[address] | | LAB | | | | [address];[place], [place] | | | | | | [address] | | | | + + + [...] | | | Fingerstick | performed at [facility];[address] | | LAB | | | | [address];[place] | | | | | | [address] | | | | + + + [...] | | | Fingerstick | performed at [facility];[address] | | LAB | | | | [address];[place] | | | | | | [address] | | | | + + + + + + + + | Specimen | + + | | + + + +---------+ + + | Performing | Address | City/State/Zipcode | Phone Number | | Organization | | | | + +---------+ + + | EXTERNAL LAB | | | | + +---------+ + + POC CG 4, ISTAT Arterial (12/15/2016 1:21 PM PDT) + + + + + + | Component | Value | Ref Range | Performed | Pathologist | | | | | At | Signature | + + + + + + | PH ART | 7.384Comment: Testing | 7.350 - 7.450 | EXTERNAL | | | | performed at [facility];[address] | | LAB | | | | [address];[place] | | | | | | [address] | | | | + + + + + + | PCO2 ART | 32 (L)Comment: Testing | 35 - 45 mmHg | EXTERNAL | | | | performed at [facility];[address] | | LAB | | | | [address];[place] | | | | | | [address] | | | | + + + + + + | PO2 ART | 81Comment: Testing | 80 - 105 mmHg | EXTERNAL | | | | performed at [facility];[address] | | LAB | | | | [address];[place] | | | | | | [address] | | | | + + + + + + | Lactate, | <0.30 (L)Comment: | 0.36 - 1.25 | EXTERNAL | | | Arterial | Testing performed at | mmol/L | LAB | | | | [address];[place] [address] | | | | + + + + + + | HCO3 ART | 19 (L)Comment: Testing | 22 - 26 mmol/L | EXTERNAL | | | | performed at [facility];[address] | | LAB | | | | [address];[place] | | | | | | [address] | | | | + + + + + + | POC | 20 (L)Comment: Testing | 23 - 27 mEq/L | EXTERNAL | | | APPEARANCE | performed at [facility];[address] | | LAB | | | UA | [address];[place] | | | | | | [address] | | | | + + + + + + | Base | 6 (H)Comment: Testing | 0.0 - 2.0 | EXTERNAL | | | deficit | performed at [facility];[address] | mmol/L | LAB | | | | [address];[place] | | | | | | [address] | | | | + + + + + + | O2 SAT ART | 96Comment: Testing | 95 - 98 % | EXTERNAL | | | | performed at [facility];[address] | | LAB | | | | [address];[place] | | | | | | [address] | | | | + + + + + + | FiO2, POC | 21Comment: Testing | % | EXTERNAL | | | | performed at [facility];[address] | | LAB | | | | [address];[place] | | | | | | [address] | | | | + + + [...] EXTERNAL | | | | performed at [facility];[address] | mmol/L | LAB | | | | [address];[place], [place] | | | | | | [address] | | | | + + + [...] | | | Fingerstick | performed at [facility];[address] | | LAB | | | | [address];[place], [place] | | | | | | [address] | | | | + + + [...] | | | | [place] [address] | | | | + + + + + + | Clarity, | CLEARComment: Testing | | EXTERNAL | | | Urine | performed at [facility], [address] | | LAB | | | | [address], | | | | | | [place] [address] | | | | + + + + + + | Specific | 1.022Comment: Testing | 1.002 - 1.030 | EXTERNAL | | | [place], | performed at [facility], [address] | | LAB | | | Urine | [address], | | | | | | [place] [address] | | | | + + + + + + | Leukocyte | NEGATIVEComment: | | EXTERNAL | | | Esterase, | Testing performed at | | LAB | | | Urine | [facility], [address] | | | | | | [place] | | | | | | [address] | | | | + + + + + + | Nitrite, | NEGATIVEComment: Testing | | EXTERNAL | | | Urine | performed at [facility], [address] | | LAB | | | | [address], | | | | | | [place] [address] | | | | + + + + + + | Urobilinoge | NORMALComment: Testing | mg/dL | EXTERNAL | | | n, Urine | performed at [facility], [address] | | LAB | | | | [address], | | | | | | [place] [address] | | | | + + + + + + | Protein, | NEGATIVEComment: Testing | mg/dL | EXTERNAL | | | Urine | performed at [facility], [address] | | LAB | | | | [address], | | | | | | [place] [address] | | | | + + + + + + | pH, Urine | 6.0Comment: Testing | 5.0 - 8.0 | EXTERNAL | | | | performed at [facility], [address] | | LAB | | | | [address], | | | | | | [place] [address] | | | | + + + + + + | Blood, | NEGATIVEComment: Testing | | EXTERNAL | | | Urine | performed at [facility], [address] | | LAB | | | | [address], | | | | | | [place] [address] | | | | + + + + + + | Ketones | NEGATIVEComment: Testing | mg/dL | EXTERNAL | | | | performed at [facility], [address] | | LAB | | | | [address], | | | | | | [place] [address] | | | | + + + + + + | Bilirubin, | NEGATIVEComment: Testing | | EXTERNAL | | | Urine | performed at [facility], [address] | | LAB | | | | [address], | | | | | | [place] [address] | | | | + + + + + + | Glucose, | >500 (A)Comment: Testing | mg/dL | EXTERNAL | | | Urine | performed at [facility], [address] | | LAB | | | | [address], | | | | | | [place] [address] | | | | + + + [...] | | LAB | | | | [facility] [address] | | | | [address];[place] [address] | | | | + + + + + + | PCO2 ART | 56 (H)Comment: Testing | 35 - 45 mmHg | EXTERNAL | | | | performed at [facility];[address] | | LAB | | | | [address];[place] | | | | | | [address] | | | | + + + + + + | PO2 ART | 74 (L)Comment: Testing | 80 - 105 mmHg | EXTERNAL | | | | performed at [facility];[address] | | LAB | | | | [address];[place] | | | | | | [address] | | | | + + + + + + | Lactate, | 7.11 (H)Comment: Testing | 0.36 - 1.25 | EXTERNAL | | | Arterial | performed at [facility];[address] | mmol/L | LAB | | | | [address];[place] | | | | | | [address] | | | | + + + + + + | HCO3 ART | 9 (L)Comment: Testing | 22 - 26 mmol/L | EXTERNAL | | | | performed at [facility];[address] | | LAB | | | | [address];[place] | | | | | | [address] | | | | + + + + + + | POC | 11 (L)Comment: Testing | 23 - 27 mEq/L | EXTERNAL | | | APPEARANCE | performed at [facility];[address] | | LAB | | | UA | [address];[place] | | | | | | [address] | | | | + + + + + + | Base | 25 (H)Comment: Testing | 0.0 - 2.0 | EXTERNAL | | | deficit | performed at [facility];[address] | mmol/L | LAB | | | | [address];[place] | | | | | | [address] | | | | + + + + + + | O2 SAT ART | 77 (L)Comment: Testing | 95 - 98 % | EXTERNAL | | | | performed at [facility];[address] | | LAB | | | | [address];[place] | | | | | | [address] | | | | + + + + + + | FiO2, POC | 100Comment: Testing | % | EXTERNAL | | | | performed at [facility];[address] | | LAB | | | | [address];[place] | | | | | | [address] | | | | + + + [...] K/uL | LAB | | | | [facility], [address] [facility] | | | | | | [place] | | | | | | [address] | | | | + + + + + + | Non- | 4.04 (L)Comment: Testing | 4.20 - 5.70 | EXTERNAL | | | Red Blood | performed at [facility], [address] | M/uL | LAB | | | Cells | [address] [facility] [place], | | | | | Counted | [place] [address] | | | | + + + + + + | Hemoglobin | 11.4 (L)Comment: Testing | 13.2 - 17.0 | EXTERNAL | | | | performed at [facility], [address] | g/dL | LAB | | | | [address], | | | | | | [place] [address] | | | | + + + + + + | Hematocrit, | 35.1 (L)Comment: Testing | 39.0 - 50.0 % | EXTERNAL | | | POC | performed at [facility], [address] | | LAB | | | | [address], | | | | | | [place] [address] | | | | + + + + + + | MCV | 86.7Comment: Testing | 80.0 - 100.0 fl | EXTERNAL | | | | performed at [facility], [address] | | LAB | | | [address], | | | | | | [place] [address] | | | | + + + + + + | MCH | 28.2Comment: Testing | 27.0 - 34.0 pg | EXTERNAL | | | | performed at [facility], [address] | | LAB | | | | [address], | | | | | | [place] [address] | | | | + + + + + + | MCHC | 32.5Comment: Testing | 32.0 - 35.5 | EXTERNAL | | | | performed at [facility], [address] | g/dL | LAB | | | | [address], | | | | | | [place] [address] | | | | + + + + + + | RDW-CV | 42.0Comment: Testing | 37 - 53 fl | EXTERNAL | | | | performed at [facility], [address] | | LAB | | | | [address], | | | | | | [place] [address] | | | | + + + + + + | Platelet | 262Comment: Testing | 150 - 400 K/uL | EXTERNAL | | | Count | performed at [facility], [address] | | LAB | | | Plasma | [address], | | | | | | [place] [address] | | | | + + + + + + | MPV | 8.4Comment: Testing | fl | EXTERNAL | | | | performed at [facility], [address] | | LAB | | | | [address], | | | | | | [place] [address] | | | | + + + + + + | Differentia | AUTOMATEDComment: | | EXTERNAL | | | l Type | Testing performed at | | LAB | | | | [facility], [address] | | | | | | [place] | | | | | | [address] | | | | + + + + + + | % Segmented | 82.60Comment: Testing | % | EXTERNAL | | | | performed at [facility], [address] | | LAB | | | Neutrophils | [address], | | | | | | [place] [address] | | | | + + + + + + | % | 7.47Comment: Testing | % | EXTERNAL | | | Lymphocytes | performed at [facility], [address] | | LAB | | | | [address], | | | | | | [place] [address] | | | | + + + + + + | % Monocytes | 6.29Comment: Testing | % | EXTERNAL | | | | performed at [facility], [address] | | LAB | | | | [address], | | | | | | [place] [address] | | | | + + + + + + | % | 3.29Comment: Testing | % | EXTERNAL | | | Eosinophils | performed at [facility], [address] | | LAB | | | | [address], | | | | | | [place] [address] | | | | + + + + + + | % Basophils | 0.35Comment: Testing | % | EXTERNAL | | | | performed at [facility], [address] | | LAB | | | | [address], | | | | | | [place] [address] | | | | + + + + + + | Absolute | 13.94 (H)Comment: | 1.90 - 7.40 | EXTERNAL | | | Segmented | Testing performed at | K/uL | LAB | | | Neutrophils | [facility], [address] | | | | | | [place] | | | | | | [address] | | | | + + + + + + | Absolute | 1.26Comment: Testing | 1.00 - 3.90 | EXTERNAL | | | Lymphocytes | performed at [facility], [address] | K/uL | LAB | | | | [address], | | | | | | [place] [address] | | | | + + + + + + | Absolute | 1.06 (H)Comment: Testing | 0.00 - 0.80 | EXTERNAL | | | Monocytes | performed at [facility], [address] | K/uL | LAB | | | | [address], | | | | | | [place] [address] | | | | + + + + + + | Absolute | 0.56 (H)Comment: Testing | 0.00 - 0.50 | EXTERNAL | | | Eosinophils | performed at [facility], [address] | K/uL | LAB | | | | [address], | | | | | | [place] [address] | | | | + + + + + + | Absolute | 0.06Comment: Testing | 0.00 - 0.10 | EXTERNAL | | | Basophils | performed at [facility], [address] | K/uL | LAB | | | | [address], | | | | | | [place] [address] | | | | + + + [...] | | | | [place] [address] | | | | + + + [...] | | | | [place] [address] | | | | + + + [...] | | | | | | [address], | | | | | | [place] [address] | | | | + + + [...] Center, | | | | | | [place] [address] | | | | + + + [...] | | | | [place] [address] | | | | + + + + + + | K | 4.6Comment: Testing | 3.5 - 4.9 | EXTERNAL | | | | performed at [facility], [address] | mmol/L | LAB | | | | [address], | | | | | | [place] [address] | | | | + + + + + + | Cl | 103Comment: Testing | 99 - 109 mmol/L | EXTERNAL | | | | performed at [facility], [address] | | LAB | | | | [address], | | | | | | [place] [address] | | | | + + + + + + | CO2 | 22 (L)Comment: Testing | 23 - 32 mmol/L | EXTERNAL | | | | performed at [facility], [address] | | LAB | | | | [address], | | | | | | [place] [address] | | | | + + + + + + | Anion Gap | 14Comment: Testing | 5 - 20 mmol/L | EXTERNAL | | | | performed at [facility], [address] | | LAB | | | | [address], | | | | | | [place] [address] | | | | + + + + + + | Glucose, | 392 (H)Comment: Testing | 65 - 99 mg/dL | EXTERNAL | | | Fasting | performed at [facility], [address] | | LAB | | | | [address], | | | | | | [place] [address] | | | | + + + + + + | BUN | 12Comment: Testing | 8 - 25 mg/dL | EXTERNAL | | | | performed at [facility], [address] | | LAB | | | | [address], | | | | | | [place] [address] | | | | + + + + + + | Creatinine | 1.0Comment: Testing | 0.70 - 1.30 | EXTERNAL | | | | performed at [facility], [address] | mg/dL | LAB | | | | [address], | | | | | | [place] [address] | | | | + + + + + + | BUN/Creatin | 12Comment: Testing | | EXTERNAL | | | ine Ratio | performed at [facility], [address] | | LAB | | | | [address], | | | | | | [place] [address] | | | | + + + + + + | Calcium | 7.6 (L)Comment: Testing | 8.5 - 10.5 | EXTERNAL | | | | performed at [facility], [address] | mg/dL | LAB | | | | [address], | | | | | | [place] [address] | | | | + + + + + + | Protein, | 6.4Comment: Testing | 6.3 - 8.2 g/dL | EXTERNAL | | | Total | performed at [facility], [address] | | LAB | | | | [address], | | | | | | [place] [address] | | | | + + + + + + | Albumin | 2.2 (L)Comment: Testing | 3.6 - 5.0 g/dL | EXTERNAL | | | | performed at [facility], [address] | | LAB | | | | [address], | | | | | | [place] [address] | | | | + + + + + + | Globulin | 4.2Comment: Testing | 1.3 - 4.9 g/dL | EXTERNAL | | | | performed at [facility], [address] | | LAB | | | | [address], | | | | | | [place] [address] | | | | + + + + + + | A/G Ratio | 0.5 (L)Comment: Testing | 1.0 - 2.4 | EXTERNAL | | | | performed at [facility], [address] | | LAB | | | | [address], | | | | | | [place] [address] | | | | + + + + + + | Bilirubin | 0.6Comment: Testing | 0.1 - 1.5 mg/dL | EXTERNAL | | | Total | performed at [facility], [address] | | LAB | | | | [address], | | | | | | [place] [address] | | | | + + + + + + | ALP, | 182 (H)Comment: Testing | 35 - 115 U/L | EXTERNAL | | | External | performed at [facility], [address] | | LAB | | | | [address], | | | | | | [place] [address] | | | | + + + + + + | AST | 9 (L)Comment: Testing | 10 - 45 U/L | EXTERNAL | | | | performed at [facility], [address] | | LAB | | | | [address], | | | | | | [place] [address] | | | | + + + + + + | ALT | 16Comment: Testing | 10 - 65 U/L | EXTERNAL | | | | performed at [facility], [address] | | LAB | | | | [address], | | | | | | [place] [address] | | | | + + + [...] Center, | | | | | | [place] [address] | | | | + + + [...] | | | Fingerstick | performed at [facility];[address] | | LAB | | | | [address];[place] | | | | | | [address] | | | | + + + [...] EXTERNAL LAB | | Testing performed at [facility];[address] [facility];[place] [address] MRSA PCR | | | POSITIVE for MRSA by PCRAbnormal | | | Testing performed at [facility];[address];[place] [address] | | + + + + +---------+ [...] | | | Fingerstick | performed at [facility] | | LAB | | | | [address];[place] | | | | | | [address] | | | | + + + [...] EXTERNAL | | | | performed at [facility];[address] | mmol/L | LAB | | | | [address];[place] | | | | | | [address] | | | | + + + + + + | K | 4.0Comment: Testing | 3.5 - 4.9 | EXTERNAL | | | | performed at [facility];[address] | mmol/L | LAB | | | | [address];[place] | | | | | | [address] | | | | + + + + + + | Cl | 104Comment: Testing | 99 - 109 mmol/L | EXTERNAL | | | | performed at [facility];[address] | | LAB | | | | [address];[place] | | | | | | [address] | | | | + + + + + + | CO2 | 21 (L)Comment: Testing | 23 - 32 mmol/L | EXTERNAL | | | | performed at [facility];[address] | | LAB | | | | [address];[place] | | | | | | [address] | | | | + + + + + + | Anion Gap | 13Comment: Testing | 5 - 20 mmol/L | EXTERNAL | | | | performed at [facility];[address] | | LAB | | | | [address];[place] | | | | | | [address] | | | | + + + + + + | Glucose, | 254 (H)Comment: Testing | 65 - 99 mg/dL | EXTERNAL | | | Fasting | performed at [facility];[address] | | LAB | | | | [address];[place] | | | | | | [address] | | | | + + + + + + | BUN | 12Comment: Testing | 8 - 25 mg/dL | EXTERNAL | | | | performed at [facility];[address] | | LAB | | | | [address];[place] | | | | | | [address] | | | | + + + + + + | Creatinine | 0.95Comment: Testing | 0.70 - 1.30 | EXTERNAL | | | | performed at [facility];[address] | mg/dL | LAB | | | | [address];[place] | | | | | | [address] | | | | + + + + + + | BUN/Creatin | 13Comment: Testing | | EXTERNAL | | | ine Ratio | performed at [facility];[address] | | LAB | | | | [address];[place] | | | | | | [address] | | | | + + + + + + | Calcium | 6.9 (L)Comment: Testing | 8.5 - 10.5 | EXTERNAL | | | | performed at [facility];[address] | mg/dL | LAB | | | | [address];[place] | | | | | | [address] | | | | + + + + + + | Protein, | 6.3Comment: Testing | 6.3 - 8.2 g/dL | EXTERNAL | | | Total | performed at [facility];[address] | | LAB | | | | [address];[place] | | | | | | [address] | | | | + + + + + + | Albumin | 2.1 (L)Comment: Testing | 3.6 - 5.0 g/dL | EXTERNAL | | | | performed at [facility];[address] | | LAB | | | | [address];[place] | | | | | | [address] | | | | + + + + + + | Globulin | 4.2Comment: Testing | 1.3 - 4.9 g/dL | EXTERNAL | | | | performed at [facility];[address] | | LAB | | | | [address];[place] | | | | | | [address] | | | | + + + + + + | A/G Ratio | 0.5 (L)Comment: Testing | 1.0 - 2.4 | EXTERNAL | | | | performed at [facility];[address] | | LAB | | | | [address];[place] | | | | | | [address] | | | | + + + + + + | Bilirubin | 0.4Comment: Testing | 0.1 - 1.5 mg/dL | EXTERNAL | | | Total | performed at [facility];[address] | | LAB | | | | [address];[place] | | | | | | [address] | | | | + + + + + + | ALP, | 181 (H)Comment: Testing | 35 - 115 U/L | EXTERNAL | | | External | performed at [facility];[address] | | LAB | | | | [address];[place] | | | | | | [address] | | | | + + + + + + | AST | 10Comment: Testing | 10 - 45 U/L | EXTERNAL | | | | performed at [facility];[address] | | LAB | | | | [address];[place] | | | | | | [address] | | | | + + + + + + | ALT | 14Comment: Testing | 10 - 65 U/L | EXTERNAL | | | | performed at [facility];[address] | | LAB | | | | [address];[place] | | | | | | [address] | | | | + + + [...] | | | | | | at [facility];[address] [place] [address] | | | | | | [facility];[place] [address] | | | | + + + [...] 9:30AM Referring Provider Line: | | | [phone] ID: [id number] | | + + + [...] + + | Glenn Valle Conversion - 05/16/2019 2:48 AM PDT EXAM:LEFT [...] | | 2016 9:30AM Referring Provider Line: [phone] ID: [id number] | + + POC Glucose (12/14/2016 11:34 PM PDT) + + + + + + | Component | Value | Ref Range | Performed | Pathologist | | | | | At | Signature | + + + + + + | Glucose, | 172 (H)Comment: Testing | 65 - 99 mg/dL | EXTERNAL | | | Fingerstick | performed at [facility];[address] | | LAB | | | | [address];[place], [place] | | | | | | [address] | | | | + + + [...] EXTERNAL | | | | performed at [facility];[address] | mmol/L | LAB | | | | [address];[place], [place] | | | | | | [address] | | | | + + + [...] | | | Blood | performed at [facility];[address] | | LAB | | | | [address];[place] | | | | | | [address] | | | | + + + [...] EXTERNAL | | | | performed at [facility];[address] | | LAB | | | | [address];[place], [place] | | | | | | [address] | | | | + + + [...] K/uL | LAB | | | | [facility];[address] | | | | | | [address];[place] [address] | | | | + + + + + + | Non- | 4.20Comment: Testing | 4.20 - 5.70 | EXTERNAL | | | Red Blood | performed at [facility];[address] | M/uL | LAB | | | Cells | [address];[place] | | | | | Counted | [address] | | | | + + + + + + | Hemoglobin | 12.4 (L)Comment: Testing | 13.2 - 17.0 | EXTERNAL | | | | performed at [facility];[address] | g/dL | LAB | | | | [address];[place] | | | | | | [address] | | | | + + + + + + | Hematocrit, | 36.3 (L)Comment: Testing | 39.0 - 50.0 % | EXTERNAL | | | POC | performed at [facility];[address] | | LAB | | | | [address];[place] | | | | | | [address] | | | | + + + + + + | MCV | 86.5Comment: Testing | 80.0 - 100.0 fl | EXTERNAL | | | | performed at [facility];[address] | | LAB | | | | [address];[place] | | | | | | [address] | | | | + + + + + + | MCH | 29.4Comment: Testing | 27.0 - 34.0 pg | EXTERNAL | | | | performed at [facility];[address] | | LAB | | | | [address];[place] | | | | | | [address] | | | | + + + + + + | MCHC | 34.0Comment: Testing | 32.0 - 35.5 | EXTERNAL | | | | performed at [facility];[address] | g/dL | LAB | | | | [address];[place] | | | | | | [address] | | | | + + + + + + | RDW-CV | 42.9Comment: Testing | 37 - 53 fl | EXTERNAL | | | | performed at [facility];[address] | | LAB | | | | [address];[place] | | | | | | [address] | | | | + + + + + + | Platelet | 258Comment: Testing | 150 - 400 K/uL | EXTERNAL | | | Count | performed at [facility];[address] | | LAB | | | Plasma | [address];[place] | | | | | | [address] | | | | + + + + + + | MPV | 8.3Comment: Testing | fl | EXTERNAL | | | | performed at [facility];[address] | | LAB | | | | [address];[place] | | | | | | [address] | | | | + + + + + + | Differentia | AUTOMATEDComment: | | EXTERNAL | | | l Type | Testing performed at | | LAB | | | | [facility];[address];[place] [address] | | | | + + + + + + | % Segmented | 87.43Comment: Testing | % | EXTERNAL | | | | performed at [facility];[address] | | LAB | | | Neutrophils | [address];[place] | | | | | | [address] | | | | + + + + + + | % | 5.56Comment: Testing | % | EXTERNAL | | | Lymphocytes | performed at [facility];[address] | | LAB | | | | [address];[place] | | | | | | [address] | | | | + + + + + + | % Monocytes | 4.36Comment: Testing | % | EXTERNAL | | | | performed at [facility];[address] | | LAB | | | | [address];[place] | | | | | | [address] | | | | + + + + + + | % | 1.84Comment: Testing | % | EXTERNAL | | | Eosinophils | performed at [facility];[address] | | LAB | | | | [address];[place] | | | | | | [address] | | | | + + + + + + | % Basophils | 0.81Comment: Testing | % | EXTERNAL | | | | performed at [facility];[address] | | LAB | | | | [address];[place] | | | | | | [address] | | | | + + + + + + | Absolute | 17.02 (H)Comment: | 1.90 - 7.40 | EXTERNAL | | | Segmented | Testing performed at | K/uL | LAB | | | Neutrophils | [facility];[address];[place] [address] | | | | + + + + + + | Absolute | 1.08Comment: Testing | 1.00 - 3.90 | EXTERNAL | | | Lymphocytes | performed at [facility];[address] | K/uL | LAB | | | | [address];[place] | | | | | | [address] | | | | + + + + + + | Absolute | 0.85 (H)Comment: Testing | 0.00 - 0.80 | EXTERNAL | | | Monocytes | performed at [facility];[address] | K/uL | LAB | | | | [address];[place] | | | | | | [address] | | | | + + + + + + | Absolute | 0.36Comment: Testing | 0.00 - 0.50 | EXTERNAL | | | Eosinophils | performed at [facility];[address] | K/uL | LAB | | | | [address];[place] | | | | | | [address] | | | | + + + + + + | Absolute | 0.16 (H)Comment: Testing | 0.00 - 0.10 | EXTERNAL | | | Basophils | performed at [facility];[address] | K/uL | LAB | | | | [address];[place] | | | | | | [address] | | | | + + + + + + | RBC | RBC AND PLT MORPHOLOGY | | EXTERNAL | | | Morphology | APPEAR NORMALComment: | | LAB | | | | Testing performed at | | | | | | [facility];[address];[place] [address] | | | | + + + + + + | Platelet | ADEQUATEComment: Testing | | EXTERNAL | | | Estimate | performed at [facility];[address] | | LAB | | | | [address];[place] | | | | | | [address] | | | | + + + + + + | Differentia | SLIDE SCANNED, AGREES | | EXTERNAL | | | l Comments | WITH AUTOMATED | | LAB | | | | RESULTS.Comment: Testing | | | | | | performed at [facility];[address] | | | | | | [address];[place] | | | | | | [address] | | | | + + + [...] EXTERNAL | | | | performed at [facility];[address] | | LAB | | | | [address];[place] | | | | | | [address] | | | | + + + [...] EXTERNAL | | | | performed at [facility];[address] | mmol/L | LAB | | | | [address];[place] | | | | | | [address] | | | | + + + + + + | K | 5.1 (H)Comment: MODERATE | 3.5 - 4.9 | EXTERNAL | | | | HEMOLYSISTesting | mmol/L | LAB | | | | performed at [facility];[address] | | | | | | [address];[place] | | | | | | [address] | | | | + + + + + + | Cl | 93 (L)Comment: Testing | 99 - 109 mmol/L | EXTERNAL | | | | performed at [facility];[address] | | LAB | | | | [address];[place] | | | | | | [address] | | | | + + + + + + | CO2 | 23Comment: Testing | 23 - 32 mmol/L | EXTERNAL | | | | performed at [facility];[address] | | LAB | | | | [address];[place] | | | | | | [address] | | | | + + + + + + | Anion Gap | 14Comment: Testing | 5 - 20 mmol/L | EXTERNAL | | | | performed at [facility];[address] | | LAB | | | | [address];[place] | | | | | | [address] | | | | + + + + + + | Glucose, | 635 ()Comment: CALLED | 65 - 99 mg/dL | EXTERNAL | | | Fasting | DR LING COUCH | | LAB | | | | AT 2216 BY RHREAD BACK | | | | | | RESULTS VERIFIEDTesting | | | | | | performed at [facility];[address] | | | | | | [address];[place] | | | | | | [address] | | | | + + + + + + | BUN | 13Comment: Testing | 8 - 25 mg/dL | EXTERNAL | | | | performed at [facility];[address] | | LAB | | | | [address];[place] | | | | | | [address] | | | | + + + + + + | Creatinine | 1.4 (H)Comment: Testing | 0.70 - 1.30 | EXTERNAL | | | | performed at [facility];888 | mg/dL | LAB | | | | [address];[place] | | | | | | [address] | | | | + + + + + + | BUN/Creatin | 10Comment: Testing | | EXTERNAL | | | ine Ratio | performed at [facility];[address] | | LAB | | | | [address];[place] | | | | | | [address] | | | | + + + + + + | Calcium | 7.9 (L)Comment: Testing | 8.5 - 10.5 | EXTERNAL | | | | performed at [facility];888 | mg/dL | LAB | | | | [address];[place] | | | | | | [address] | | | | + + + + + + | Protein, | 7.7Comment: Testing | 6.3 - 8.2 g/dL | EXTERNAL | | | Total | performed at [facility];[address] | | LAB | | | | [address];[place] | | | | | | [address] | | | | + + + + + + | Albumin | 2.6 (L)Comment: Testing | 3.6 - 5.0 g/dL | EXTERNAL | | | | performed at [facility];[address] | | LAB | | | | [address];[place] | | | | | | [address] | | | | + + + + + + | Globulin | 5.1 (H)Comment: Testing | 1.3 - 4.9 g/dL | EXTERNAL | | | | performed at [facility];[address] | | LAB | | | | [address];[place] | | | | | | [address] | | | | + + + + + + | A/G Ratio | 0.5 (L)Comment: Testing | 1.0 - 2.4 | EXTERNAL | | | | performed at [facility];[address] | | LAB | | | | [address];[place] | | | | | | [address] | | | | + + + + + + | Bilirubin | 0.6Comment: Testing | 0.1 - 1.5 mg/dL | EXTERNAL | | | Total | performed at [facility];[address] | | LAB | | | | [address];[place] | | | | | | [address] | | | | + + + + + + | ALP, | 259 (H)Comment: Testing | 35 - 115 U/L | EXTERNAL | | | External | performed at [facility];[address] | | LAB | | | | [address];[place] | | | | | | [address] | | | | + + + + + + | AST | 17Comment: MODERATE | 10 - 45 U/L | EXTERNAL | | | | HEMOLYSISTesting | | LAB | | | | performed at [facility];[address] | | | | | | [address];[place] | | | | | | [address] | | | | + + + + + + | ALT | 17Comment: Testing | 10 - 65 U/L | EXTERNAL | | | | performed at [facility];[address] | | LAB | | | | [address];[place] | | | | | | [address] | | | | + + + [...] | | | | | | at [facility];[address] | | | | | | [address];[place] [address] | | | | + + + [...] type 2 diabetes mellitus with hyperglycemia, unspecified prison | | insulin use status | + [...]
--- OUTSIDE RECORDS SUMMARY | ~2020-05-14 | XMS | Encounter Summary ---
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[address], [place]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[address] | | | | | antibody | [address] | [place], | | | | | positive | [place] | [place] [address] | | | | | Alcohol | [address] | Phone: | | | | | abuse | Phone: | [phone] | | | | | Procedures | [phone] | Fax: | | | | | [place] | Fax: | [phone] | | | | | COLONOSCOPY | [phone] | | | | | | FLX DX | | | | | | | W/COLLJ SPEC | | | | | | | WHEN PFRMD | | | | | | | CT | | | | | | | COLONOSCOPY | | | | | | | W/BIOPSY | | | | | | | SINGLE/MULTI | | | | | | | PLE CT | | | | | | | COLSC FLX | | | | | | | W/RMVL OF | | | | | | | TUMOR POLYP | | | | | | | LESION SNARE | | | | | | | TQ CT | | | | | | | [...] + + | 09/03/ | Telephone | [facility] | Avi Forde MD | Appointment | | 2014 | | GASTROENTEROLOGY | [address], [place] | (procedure ) | | | | [address] [place] | [address] [place], [place] | | | | | [address] [place], [place] | [address] | | | | | [address] | | | | | | [phone] | | | +--------+ + + + [...] reviewed bowel prep instructio ns; rx to [facility]; She would like to check with [...]
--- OUTSIDE RECORDS SUMMARY | ~2020-05-14 | XMS | Encounter Summary ---
Demographics + + + | Address | [address] | | | [place] [address] | + + + | Home Phone | | + + + | Preferred Language | Unknown | + + + | Marital Status | Single | + + + | Druze Affiliation | 1077 | + + + | Race | Unknown | + + + | Ethnic Group | Unknown | + + + Author + + + | Author | [facility] | | | and [place] | + + + | Organization | [facility] | | | and [...] Team Providers + +------+ + | Care Portfolio Director Name | Role | Phone | + +------+ + | Estrella Light PA-C | PCP | | + +------+ + Encounter Details +--------+ + + + + | Date | Type | Department | Care Team | Description | +--------+ + + + + | 01/13/ | Hospital | [facility] | Conversion | Diagnosis unknown | | 2018 | Encounter | CONVERSION DEP [address] | Transaction, | | | | | [address] | Provider Unknown | | | | | [place], [place] | | | | | | [address] | (Fax) | | | | | [phone] | | | +--------+ + + + [...]
--- OUTSIDE RECORDS SUMMARY | ~2020-05-14 | XMS | Encounter Summary ---
Demographics + + + | Address | [address] | | | [place] [address] | + + + | Home Phone [...] Team Providers + +------+ + | Care Passenger Tire Builder Name | Role | Phone | + [...] antibody | [address], | | | | | positive | [address], [place] | [place] [address] | | | | | Chronic | [address] [place] | [place], | | | | | diarrhea | [place], [place] | [place] [address] | | | | | Procedures | [address] | Phone: | | | | | [place] | Phone: | [phone] | | | | | COLONOSCOPY | [phone] | Fax: | | | | | FLX DX | Fax: | [phone] | | | | | W/COLLJ SPEC | [phone] | | | | | | WHEN [...] | | | | | | CT EDG | | | | | | [...] 2015 | | GASTROENTEROLOGY | [address], [place] | (egd/colon ) | | | | [address] [place] | [address] [place], [place] | | | | | [address] [place], [place] | [address] | | | | | [address] | | | | | | [phone] | | | +--------+ + + + [...] OR booking and not es to [facility]. [facility] umented in this encounter [...]
--- OUTSIDE RECORDS SUMMARY | ~2020-05-14 | XMS | Encounter Summary ---
Demographics + + + | Address | [address] | | | [place] [address] | + + + | Home Phone [...] Team Providers + +------+ + | Care Tile Grader Name | Role | Phone | + +------+ + | Estrella Light PA-C | PCP | | + +------+ + Encounter Details +--------+ + + + + | Date | Type | Department | Care Team | Description | +--------+ + + + + | 03/29/ | Abstract | [facility] | Avi Forde MD | | | 2016 | | GASTROENTEROLOGY | [address], [place] | | | | | [address] [place] | [address] [place] | | | | | [address] [place], [place] | [address] | | | | | [address] | | | | | | [phone] | | | +--------+ + + + [...]
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
--- OUTSIDE RECORDS SUMMARY | ~2020-05-14 | XMS | Encounter Summary ---
Demographics + + + | Address | [address] | | | [place] [address] | + + + | Home Phone [...] + + + | Author | [facility] | | | and [place] | + + + | Organization | [facility] | | | [...] Team Providers + +------+ + | Care Ocean Clam Boat Captain Name | Role | Phone | + +------+ + PCP | Unavailable | + +------+ + Encounter Details +--------+ + + + + | Date | Type | Department | Care Team | Description | +--------+ + + + + | 05/21/ | Hospital | [facility] | Unknown, | | | 1992 | Encounter | MED CTR XRAY [address] | MD [place] . | | | | | [place] | [phone] | | | | | [place] [address] | | | | | | [phone] | | | +--------+ + + + [...]
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
--- OUTSIDE RECORDS SUMMARY | ~2020-05-14 | XMS | Encounter Summary ---
Demographics + + + | Address | [address] | | | [place] [address] | + + + | Home Phone [...] Team Providers + +------+ + | Care Saw Superintendent Name | Role | Phone | + +------+ + | Estrella Light PA-C | PCP | | + +------+ + Encounter Details +--------+ + + + + | Date | Type | Department | Care Team | Description | +--------+ + + + + | 05/12/ | Orders Only | [facility] | Provider, | | | 2019 | | [facility] | [address] | | | | | CONVERSION [address] | [place] | | | | | [address] [place], [place] | [place] [address] | | | | | [address] | | | | | | [phone] | | | +--------+ + + + [...]
--- OUTSIDE RECORDS SUMMARY | ~2020-05-14 | XMS | Encounter Summary ---
Demographics + + + | Address | [address] | | | [place] [address] | + + + | Home Phone [...] + + + | Author | [facility] | | | and [place] | + + + | Organization | [facility] | | | [...] Team Providers + +------+ + | Care Car Lot Attendant Name | Role | Phone | [...] + + | 10/31/ | Hospital | [facility] | Chavo Butler MD | Neck pain; Sepsis, | | 2019 - | Encounter | [facility] | [address] | due to unspecified | | | | CARE [address] | [place] [address] | organism, | | 11/28/ | | [address] | [phone] | unspecified whether | | 2020 | | [place], [place] | | acute organ | | | | [address] | Melissa Martin S, | dysfunction present | | | | [phone] | [address] | ([facility]); Myositis of | | | | | [place] [address] | other site, | | | | | [phone] | unspecified myositis | | | | | | type; MRSA | | | | | Eve Parkinson MD | colonization; | | | | | [address] | History of | | | | | [place] [address] | penicillin allergy; | | | | | [phone] | S/P BKA (below knee | | | | | | amputation) | | | | | Shukri Crouch MD | unilateral, left | | | | | [address] | ([facility]); Ulcer of left | | | | | [place] [address] | lower extremity, | | | | | [phone] | unspecified ulcer | | | | | | stage ([facility]); Acute | | | | | Jermaine Urias MD | encephalopathy; | | | | | [address] | Gram-positive | | | | | [place] [address] | bacteremia | | | | | [phone] | | | | | | | | | | | | Tanna Rahman MD [address] | | | | | | [address] [facility] | | | | | | [place] [address] | | | | | | [phone] | | | | | | | [...] with steroid and antibiotic s went to [facility] with high-grade fever, chills, intractable neck [...] of bone invol vement. Infectious disease consultationDr. Spofford recommended toContinue IV vancomycin until 11/28. He [...] gm CARB/Meal; Effective Now Estrella Light PA-C [address] [address] In 1 week Basic metabolic [...] might be differ ent from the original. Merged With [facility] Service: Hospitalist Progress Note Pt: Kuldip Smith AGE/SEX: 54 y.o. male ROOM: [address] [place] [address] : 1965 PCP: Estrella Light PA-C ADMIT [...] for input(s): IRON, TIBC, PCTSAT, FERRITIN, TSH, [id number], FOLATE in the last 168 hours. No [...] MD 11/27/2019 2:38 PM Juan Alberto Alaniz [facility] - 11/27/2019 11:21 AM PST . Vancomycin [...] might be differe nt from the original. Merged With [facility] Service: Hospitalist Progress Note Pt: Kuldip Smith [...] for input(s): IRON, TIBC, PCTSAT, FERRITIN, TSH, [id number], FOLATE in the last 168 hours. No [...] as indicated. Thank You, Alyssa Anders PharmD, [facility], 11/25/2019, 9:14 AM Tanna Sanches MD - 11/25/2019 7:38 AM PST Merged With [facility] Service:hospitalist Progress Note Hospital Day: LOS: 25 days SUBJECTIVE Patient Summary: refer to H&P and consult note for details Per " Patient Summary: 54-year-old male with history of type 2 diabetes, periphera l vascular disease, status post left BKA 2016, history of hypertension, history of recent dr sewell use (methamphetamine) who was transferred from [facility] where he presente d with fever, chills [...] history of illicit drug use. Unfortunately, several [facility] rehabilitation centers denied admission. He is not [...] Sanches MD - 11/24/2019 8:02 AM PST Merged With [facility] Service:hospitalist Progress Note Hospital Day: LOS: 24 days SUBJECTIVE Patient Summary: refer to H&P and consult note for details Per " Patient Summary: 54-year-old male with history of type 2 diabetes, periphera l vascular disease, status post left BKA 2017, history of hypertension, history of recent dr donato use (methamphetamine) who was transferred from [facility] where he presente d with fever, chills [...] Full Code Tanna Rahman MD 11/24/2019 Tanna Sancehs MD - 11/23/2019 8:06 AM PST Merged With [facility] Service:hospitalist Progress Note Hospital Day: LOS: 23 days SUBJECTIVE Patient Summary: refer to H&P and consult note for details Per " Patient Summary: 54-year-old male with history of type 2 diabetes, periphera l vascular disease, status post left BKA 2016, history of hypertension, history of recent dr sewell use (methamphetamine) who was transferred from [facility] where he presente d with fever, chills [...] history of illicit drug use. Unfortunately, several [facility] rehabilitation centers denied admission. He is not [...] Code Tanna Rahman MD 11/23/2019 Phyllis Alaniz, [facility] - 11/22/2019 1:27 PM PSTFormatting of this [...] would be a candidate for placement in shelter or swing bed for completion of IV [...] MD - 11/22/2019 7:37 AM PST . Merged With [facility] Service:hospitalist Progress Note Hospital Day: LOS: 22 days SUBJECTIVE Patient Summary: refer to H&P and consult note for details Per " Patient Summary: 54-year-old male with history of type 2 diabetes, periphera l vascular disease, status post left BKA 2016, history of hypertension, history of recent dr donato use (methamphetamine) who was transferred from [facility] where he presente d with fever, chills [...] history of illicit drug use. Unfortunately, several [facility] rehabilitation centers denied admission. He is not [...] Code Tanna Rahman MD 11/22/2019 Phyllis Alaniz, [facility] - 11/21/2019 2:37 PM PSTFormatting of this [...] M D - 11/21/2019 9:07 AM PST Merged With [facility] Service: Hospitalist Progress Note Hospital Day: LOS: 21 days SUBJECTIVE Patient Summary: 54-year-old male with history of type 2 diabetes, peripheral vascular disease, status post left BKA 2016, history of hypertension, history of recent drug use (me thamphetamine) who was transferred from [facility] where he presented with fev er, chills [...] history of illicit drug use. Unfortunately, several [facility] rehabilitation centers denied admission. He is not [...] Inpatient. Code Status: Full Code Dictation and chief investment officer or software, [employer], used which may contain error for similar [...] M D - 11/20/2019 9:23 AM PST Merged With [facility] Service: Hospitalist Progress Note Hospital Day: LOS: 20 days SUBJECTIVE Patient Summary: 54-year-old male with history of type 2 diabetes, peripheral vascular disease, status post left BKA 2016, history of hypertension, history of recent drug use (me thamphetamine) who was transferred from [facility] where he presented with fev er, chills [...] history of illicit drug use. Unfortunately, several [facility] rehabilitation centers denied admission. He is not [...] Inpatient. Code Status: Full Code Dictation and chief investment officer or software, [employer], used which may contain error for similar [...] monroy MD - 11/19/2019 9:01 AM PST Merged With [facility] Service: Hospitalist Progress Note Hospital Day: LOS: 19 days SUBJECTIVE Patient Summary: 54-year-old male with history of type 2 diabetes, peripheral vascular disease, status post left BKA 2017, history of hypertension, history of recent drug use (me thamphetamine) who was transferred from [facility] where he presented with fev er, chills [...] history of illicit drug use. Unfortunately, several [facility] rehabilitation centers denied admission. He is not [...] Inpatient. Code Status: Full Code Dictation and chief investment officer or software, [employer], used which may contain error for similar s ounding words even after review. Personal communication requested for any clarification. Jermaine Urias MD 11/19/2019 9:01 AM Solange Coats Phar macy House Painter - 11/18/2019 3:20 PM PSTFormatting of this [...] therapy as indicated. Thank You, Solange Haynes, Photographic Reproduction Technician, 11/18/2019, 3:21 PM Associated attestation - [place]ley [...] low Required Follow Up: 7 days(11/25 L) eLroy Timmons RD 11/18/2019 3:01 PM Jermaine Cazares MD - 11/18/2019 9:34 AM PST Merged With [facility] Service: Hospitalist Progress Note Hospital Day: LOS: 18 days SUBJECTIVE Patient Summary: 54-year-old male with history of type 2 diabetes, peripheral vascular disease, status post left BKA 2017, history of hypertension, history of recent drug use (me thamphetamine) who was transferred from [facility] where he presented with fev er, chills [...] Inpatient. Code Status: Full Code Dictation and chief investment officer or software, [employer], used which may contain error for similar [...] Jermaine Cazares MD - 11/17/2019 9:28 AM PSTFormattisis ng of this note might be different from the original. Merged With [facility]: Hospitalist Progress Note Hospital Day: LOS: 17 days SUBJECTIVE Patient Summary: 54-year-old male with history of type 2 diabetes, peripheral vascular disease, status post left BKA 2017, history of hypertension, history of recent drug use (me thamphetamine) who was transferred from [facility] where he presented with fev er, chills [...] history of illicit drug use. Unfortunately, several [facility] rehabilitation centers denied admission. He is not [...] Inpatient. Code Status: Full Code Dictation and chief investment officer or software, [employer], used which may contain error for similar s ounding words even after review. Personal communication requested for any clarification. Jermaine Urias MD 11/17/2019 9:28 AM Erick Shankar RN - 11/16/2019 9:48 PM [id number]: pt a/o to all, vss. Refused po famotidine this evening. bg's monitored achs, tx per sliding scale. Up indep in room with crutches, stable on feet. Pt ref using vs tonight. 0530: pt slept quietly most of shift, end of shift chart review complete. Electronically si gned by Erick Villalpando RN at 11/17/2019 5:49 AM PSTLucy [...] BKA Actual Weight: 72.9 kg (dosing weight) [place] Weight: 70.7 kg INDICATION: myositis, bacteremia GOAL [...] therapy as indicated. Thank You, Frank BatistaD, [facility] [phone] (available [phone]) 11/16/2019 11:28 AM Jermaine Garcia MD - 11/16/2019 9:26 AM PST Merged With [facility] Service: Hospitalist Progress Note Hospital Day: LOS: 16 days SUBJECTIVE Patient Summary: 54-year-old male with history of type 2 diabetes, peripheral vascular disease, status post left BKA 2017, history of hypertension, history of recent drug use (me thamphetamine) who was transferred from [facility] where he presented with fev er, chills [...] history of illicit drug use. Unfortunately, several [facility] rehabilitation centers denied admission. He is not [...] Inpatient. Code Status: Full Code Dictation and chief investment officer or software, [employer], used which may contain error for similar s ounding words even after review. Personal communication requested for any clarification. Jermaine Urias MD 11/16/2019 9:26 AM Lesly Benton R N - 11/15/2019 1:12 PM PST Merged With [facility] Service: Wound Care Follow Up Note Hospital [...] Present on Hospital Admission: Yes Side: Left [place] ation: lateral Location: residual limb, LE Wound [...] any additional questions. Lesly Butler RN, CMSRN, [facility] Inpatient Wound Ostomy Care [phone] 11/15/2019 1:12 PM Jermaine Cazares M D - 11/15/2019 8:44 AM PST Merged With [facility] Service: Hospitalist Progress Note Hospital Day: LOS: 15 days SUBJECTIVE Patient Summary: 54-year-old male with history of type 2 diabetes, peripheral vascular disease, status post left BKA 2017, history of hypertension, history of recent drug use (me thamphetamine) who was transferred from [facility] where he presented with fev er, chills [...] Inpatient. Code Status: Full Code Dictation and chief investment officer or software, [employer], used which may contain error for similar s ounding words even after review. Personal communication requested for any clarification. Jermaine Urias MD 11/15/2019 8:44 AM Shukri Figueroa MD - 11/14/2019 10:06 PM PST Service: Hospitalist Progress Note Hospital Day: LOS: 14 days SUBJECTIVE This is a 54-year-old male with history of heroin abuse, presented to the ED as a transfer from [facility] for high-grade fever, chills and intractable neck [...] Rafat Kaplan, DO - 9:51 AM PST Merged With [facility] Service: Infectious Diseases Progress note Hospital Day: [...] would be a candidate for placement in shelter or swing bed for completion of IV antibiotics. Disposition: If placement is available, IV antibiotic orders will need to be adjusted due t o dose changes made by inpatient pharmacy in response to trough levels. Please contact ID s ervice for updated orders in the event that the patient is able to discharge to skilled nurs ing. Dr. Nueñz will assume Infectious Diseases followup starting Monday [...] BKA Actual Weight: 72.9 kg (dosing weight) [place] Weight: 70.7 kg INDICATION: myositis, bacteremia GOAL [...] therapy as indicated. Thank You, Frank BatistaD, [facility] [phone] (available [phone]) 11/13/2019 8:32 PM Shukri Crouch MD - [...] Wallis MD - 11/11/2019 5:36 AM PST Merged With [facility] Service: Hospitalist Progress Note Hospital Day: LOS: 11 days SUBJECTIVE Patient Summary: From [facility] / Veronica 11/05/19 The patient is a 54 y.o. male with significant past medical history of hypertension, diabet es mellitus type 2 currently diet controlled, history of peripheral vascular disease status post left BKA who recently had a nasal bleed s/p packing treated with steroid and antibiotic s went to [facility] with high-grade fever, chills, intractable neck [...] for input(s): IRON, TIBC, PCTSAT, FERRITIN, TSH, [id number], FOLATE in the last 168 hours. Recent [...] management's assistance with placement Pain management with [employer] replacement. Hypertension Resumed Lisinopril 10 mg [...] Wallis MD - 11/10/2019 5:37 AM PST Merged With [facility] Service: Hospitalist Progress Note Hospital Day: LOS: 10 days SUBJECTIVE Patient Summary: From [facility] / [place] 11/05/19 The patient is a 54 y.o. male with significant past medical history of hypertension, diabet es mellitus type 2 currently diet controlled, history of peripheral vascular disease status post left BKA who recently had a nasal bleed s/p packing treated with steroid and antibiotic s went to [facility] with high-grade fever, chills, intractable neck [...] for input(s): IRON, TIBC, PCTSAT, FERRITIN, TSH, [id number], FOLATE in the last 168 hours. Recent [...] management's assistance with placement Pain management with [employer] replacement. Hypertension Resumed Lisinopril 10 mg [...] Eve Parkinson MD 11/10/2019 9:47 AM [facility] - 11/09/2019 6:32 PM PST Vancomycin [...] therapy as indicated. Thank You, MONTSERRAT RICE [facility], 11/09/2019, 6:27 PM Eve Wallis MD - 11/09/2019 5:41 AM PST Merged With [facility] Service: Hospitalist Progress Note Hospital Day: LOS: 9 days SUBJECTIVE Patient Summary: From [facility] / [place] 11/05/19 The patient is a 54 y.o. male with significant past medical history of hypertension, diabet es mellitus type 2 currently diet controlled, history of peripheral vascular disease status post left BKA who recently had a nasal bleed s/p packing treated with steroid and antibiotic s went to [facility] with high-grade fever, chills, intractable neck [...] for input(s): IRON, TIBC, PCTSAT, FERRITIN, TSH, [id number], FOLATE in the last 168 hours. Recent [...] management's assistance with placement Pain management with [employer] replacement. Hypertension Resumed Lisinopril 10 mg [...] Parkinson MD - 11/08/2019 10:53 AM PST Merged With [facility] Service: Hospitalist Progress Note Hospital Day: LOS: 8 days SUBJECTIVE Patient Summary: From [facility] / [place] 11/05/19 The patient is a 54 y.o. male with significant past medical history of hypertension, diabet es mellitus type 2 currently diet controlled, history of peripheral vascular disease status post left BKA who recently had a nasal bleed s/p packing treated with steroid and antibiotic s went to [facility] with high-grade fever, chills, intractable neck [...] for input(s): IRON, TIBC, PCTSAT, FERRITIN, TSH, [id number], FOLATE in the last 168 hours. Recent [...] consulted, leucocytosis had improving, [facility] gram streptococcus agalacta, recommendation for 4 weeks of IV Vancomycin. Meth screen positive, though he denied IV drug abuse. Appreciate case management's assistance with placement Pain management with [employer] replacement. Hypertension Resumed Lisinopril 10 mg [...] Parkinson MD 11/08/2019 10:53 AM olinEduardo kramer, [facility] - 11/07/2019 7:14 AM PST Vancomycin Dosing [...] Day 1 10/31 1000 mg IV @ [facility] 1000 mg IV Q12H 1056 1822 12.2 [...] therapy as indicated. Thank You, EDUARDO FIGUEROA [facility], 11/07/2019, 7:10 AM Eve Wallis MD - 11/07/2019 5:07 AM PST Merged With [facility] Service: Hospitalist Progress Note Hospital Day: LOS: 7 days SUBJECTIVE Patient Summary: From [facility] / [place] 11/05/19 The patient is a 54 y.o. male with significant past medical history of hypertension, diabet es mellitus type 2 currently diet controlled, history of peripheral vascular disease status post left BKA who recently had a nasal bleed s/p packing treated with steroid and antibiotic s went to [facility] with high-grade fever, chills, intractable neck [...] Lab 10/31/19 1709 IRON 10* FERRITIN 76 [id number] 565 FOLATE 5.7 Recent Labs Lab 11/04/19 [...] management's assistance with placement Pain management with [employer] replacement. Hypertension Resumed Lisinopril 10 mg [...] might be diff erent from the original. [facility] Service: Infectious Disease Progress Note Hospital Day: [...] of prednisone. He presented on 10/31/2019 at [facility] in [place], [place] complaining of f ever, chills, severe [...] [facility], the patient received IV vancomycin and ceftriaxone. [...] methamphetamine use. [facility] Events Overnight: Neck pain [...] respiratory PCR panel negative Blood cultures from [facility] grew GPCs grew Streptococcus agalactiae Radiology data: [...] down -Streptococcus bacteremia - Blood cultures from [facility] grew Streptococcus. Blood c ultures here with [...] might be different from the origi nal. Merged With [facility] Service: Hospitalist Progress Note Hospital Day: LOS: 6 days SUBJECTIVE Patient Summary: From [facility] / [place] 11/05/19 The patient is a 54 y.o. male with significant past medical history of hypertension, diabet es mellitus type 2 currently diet controlled, history of peripheral vascular disease status post left BKA who recently had a nasal bleed s/p packing treated with steroid and antibiotic s went to [facility] with high-grade fever, chills, intractable neck [...] Lab 10/31/19 1709 IRON 10* FERRITIN 76 [id number] 565 FOLATE 5.7 Recent Labs Lab 11/04/19 [...] management's assistance with placement Pain management with [employer] replacement. Hypertension Resumed Lisinopril 10 mg [...] Jean MD - 11/05/2019 9:43 AM PST [facility] Service: Infectious Disease Progress Note Hospital Day: [...] of prednisone. He presented on 10/31/2019 at [facility] in [place], [place] complaining of f ever, chills, severe [...] [facility], the patient received IV vancomycin and ceftriaxone. [...] methamphetamine use. [facility] Events Overnight: Discharge planning [...] sodium chloride 0.9% 100 mL/hr at 11/03/19 2146 PRN Medications acetaminophen, Hypoglycemia Management AND POCT [...] respiratory PCR panel negative Blood cultures from [facility] grew GPCs grew Streptococcus agalactiae Radiology data: [...] T2 and STIR images. Signed by: Steve Marai Jace Sign Date/Time: 10/31/2019 11:01 PM TTE Normal LV systolic function Mild enlargement of the ascending aorta No pulmonary hypertension No obvious vegetation PROBLEM LIST Principal Problem: Sepsis Active Problems: Essential hypertension Diabetes Neck pain Acute encephalopathy ASSESSMENT & PLAN Sepsis on admission -fever curve better, BP stable. Leukocytosis resolved. ESR 116. CRP trending down -Streptococcus bacteremia - Blood cultures from [facility] grew Streptococcus. Blood c ultures here with [...] Day 1 10/31 1000 mg IV @ [facility] 1000 mg IV Q12H 1056 1822 12.2 [...] 1 on 10/31/2019 at 1056 given at [facility]. Maintenance Dose: Vancomycin 750 mg IV every [...] as indicated. Thank You, Alyssa Anders PharmD, [facility] 11/05/2019 9:24 AM ve Pierson MD - 11/05/2019 5:28 AM PSTFormatting of this note might be different from teto gomez. Merged With [facility] Service: Hospitalist Progress Note Hospital Day: LOS: 5 days SUBJECTIVE Patient Summary: From [facility] / [place] 11/05/19 The patient is a 54 y.o. male with significant past medical history of hypertension, diabet es mellitus type 2 currently diet controlled, history of peripheral vascular disease status post left BKA who recently had a nasal bleed s/p packing treated with steroid and antibiotic s went to [facility] with high-grade fever, chills, intractable neck [...] 11/05/2019 05 Last data filed at 11/05/2019 0440 Gross per 24 hour Intake 960 ml [...] Lab 10/31/19 1709 IRON 10* FERRITIN 76 [id number] 565 FOLATE 5.7 Recent Labs Lab 11/04/1960911/03/1941810/31/19 [...] management's assistance with placement Pain management with [employer] replacement. Hypertension Resumed Lisinopril 10 mg [...] [place] MD - 11/04/2019 3:51 PM PST Merged With [facility] Service: Hospitalist Progress Note Pt: Kuldip Smith [...] with steroid and antibiotic s went to [facility] with high-grade fever, chills, intractable neck [...] Lab 10/31/19 1709 IRON 10* FERRITIN 76 [id number] 565 FOLATE 5.7 Recent Labs Lab 11/04/19 [...] inflammation. A preliminary report was sent by [facility] with no significant discrepancy on 10/13/2019 1:38 [...] denied IV drug abuse. Pain management with [employer] replacement. 2. Hypertension, will recheck renal [...] Jean MD - 11/04/2019 11:01 AM PST [facility] Service: Infectious Disease Progress Note Hospital Day: [...] of prednisone. He presented on 10/31/2019 at [facility] in [place], [place] complaining of f ever, chills, severe [...] [facility], the patient received IV vancomycin and ceftriaxone. [...] methamphetamine use. [facility] Events Overnight: Noted nursing report of patient's emotional status earlier. He has been afebrile, intermittently hypertensive. Blood cultures from [facility] are reported to be Strep agalactiae in 2 sets. He has 5/10 neck pain, worse with movement. He has been afebrile with no chills or sweats. No new neurologic deficits. Denies pain at L BKA stump - refusing wound care Denies chest pain, palpitations, abdominal pain, nausea, vomiting, diarrhea, difficulty wit h urination. He expresses preference to continue therapy in [place] where he resides Scheduled Medications adult multivitamin [...] T2 and STIR images. Signed by: Steve Mraia Jace Sign Date/Time: 10/31/2019 11:01 PM TTE [...] management has been consulted and looking into [facility] bed. Hold off on central line placement [...] check complete. Stacey Ceron RN Viral Zaragoza [facility] - 11/03/2019 6:12 PM PSTVanco trough returned at 16.4, within goal of 15-20 Will continue with current protocol: 750mg IV q12h. Melissa Madrid MD - 11/03/2019 4:16 PM PSTFormherman salcedo of this note might be different from the original. Merged With [facility] Service: Hospitalist Progress Note Pt: Kuldip Smith AGE/SEX: 54 y.o. male ROOM: [address] [place] [address] : 1965 PCP: Estrella Light PA-C ADMIT [...] Lab 10/31/19 1709 IRON 10* FERRITIN 76 [id number] FOLATE 5.7 Recent Labs Lab 11/03/19 [...] inflammation. A preliminary report was sent by [facility] with no significant discrepancy on 10/13/2019 1:38 [...] has requested follow up microbiology report from [facility] for 2/ - there is a RN communication as such. Robert Ortiz RN Rebeca Jean MD - 11/03/2019 10:15 AM PST [facility] Service: Infectious Disease Progress Note Hospital Day: [...] of prednisone. He presented on 10/31/2019 at [facility] in [place], [place] complaining of f ever, chills, severe [...] [facility], the patient received IV vancomycin and ceftriaxone. [...] respiratory PCR panel negative Blood cultures from [facility] grew GPCs in chains in aerobic/anaerobic bottles [...] -Gram positive bacteremia - Blood cultures from [facility] grew GPCs in chains in aerob ic/anaerobic [...] Madrid MD - 11/02/2019 12:24 PM PST Merged With [facility] Service: Hospitalist Progress Note Pt: Kuldip Smith AGE/SEX: 54 y.o. male ROOM: [facility]5/7105-01 : 1965 PCP: Etsrella Light PA-C ADMIT DATE: 10/31/2019 TODAY'S DATE: [...] Lab 10/31/19 1709 IRON 10* FERRITIN 76 [id number] FOLATE 5.7 Recent Labs Lab 10/31/19 [...] inflammation. A preliminary report was sent by [facility] with no significant discrepancy on 10/13/2019 1:38 [...] Jean MD - 11/02/2019 11:14 AM PST [facility] Service: Infectious Disease Progress Note Hospital Day: [...] of prednisone. He presented on 10/31/2019 at [facility] in [place], [place] complaining of f ever, chills, severe [...] [facility], the patient received IV vancomycin and ceftriaxone. 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 Vanco Tr at 0438 today was 19.7(15-20mcg/ml). Instructed RN to admin 0630 dose-then will Decrease dose to Vanco 750mg (10.1mg/kg Adjusted body weight) IV q 12h). Next trough 1730 2/2 (before 3rd dose) Goal Tr 15-20 mcg/ml. Indication: osteomyelitis DESTINI VARGAS [facility] Stacey Figueroa RN - 11/02/2019 4:49 AM PSTCNA reported patient having 10/10 pain in his neck. This nurse offered medication, brought to bedside. Then Isaac refused medication. Stating, "I don't wan t it right now." Stacey Ceron RN Stacey Figueroa RN - 11/02/2019 4:02 AM PSTPatient having paranoid ideations. Told the HVAC COMMERCIAL SALESPERSON that he didn't feel safe here, wanted [...] M D - 11/01/2019 3:09 PM PST Merged With [facility] Service: Hospitalist Progress Note Pt: Kuldip Smith [...] Lab 10/31/19 1709 IRON 10* FERRITIN 76 [id number] FOLATE 5.7 Recent Labs Lab 10/31/19 [...] inflammation. A preliminary report was sent by [facility] with no significant discrepancy on 10/13/2019 1:38 [...] at times. MRI completed. Dr Darcie Finch economics faculty member hospitalist notified. Diet order obtained. Will pass on all concerns and care to oncoming shift. Chart check complete. Stacey Ceron RN Eduardo Hector, [facility] - 10/31/2019 6:14 PM PSTFormatting of this [...] Procedure Component Value Units Date/Time MRSA NAAT [[id number]] Collected: 10/31/191745 Order Status: Sent Lab Status: In process Updated: 10/31/191751 Specimen: Tissue from Nares Respiratory pathogen panel, NAAT [[id number]] Collected: 10/31/191744 Order Status: Sent Lab Status: In process Updated: 10/31/191753 Specimen: Tissue from Nasopharynx Vancomycin Dosing History Date Dosing Regimen Admin Times Trough SCr Comments Day 1 10/31 1000 mg IV @ [facility] 1000 mg IV Q12H 1056 1830 1709 12.2 1.43 Day 2 11/01 Day 3 11/02 Planned 0530 (Discontinue if cultures negative) Day 4 Day 5 *SCr = mg/dL [vanco] = mcg/mL Assessment/Plan Vancomycin Load: 1000 mg (15 mg/kg) IV x 1. Given at [facility] this morning at 1056. Random level [...] with steroid and antibiotic s went to [facility] with high-grade fever, chills, intractable neck [...] exposure w ith CT scan done in [facility] Diabetes mellitus type 2 diet controlled [...] is a 54-year-old male who presented to [facility] with fever, chills, and neck pain. [...] literature on Narcotics Anonymous groups in the [place] area. He said he is much more inclined to attend the latter. 3. Thank you for the consult. Please reconsult us as needed to help manage his care Consent This exam was initially conducted via a secure 256-bit AES encrypted bidirectional video se ssion. You have chosen to receive care through the use of telemedicine. Telemedicine enables [facility] care providers at different locations to [...] your medical care today? Yes. Consult origin: [facility] Referral: Dr. Martin History obtained from: Review [...] had been doing well. He lives in [place] with his parents. Margarita ramirez is not [...] drug treatment program in about [facility] in [place]. Denies IV drug abuse Family History: Negative Social History: Graduated from high school. 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 Has two children and one granddaughte r. When he was younger he was in and out of detention usually for alcohol related behaviors. PMH: Past [...] file Gets together: Not on file Attends anabaptist service: Not on file Active member of [...] MPV 7.8 11/02/2019 DIFFTYPE MANUAL 11/02/2019 Imaging: @[id number]@ Mental Status Examination: Appearance: Somewhat disheveled and [...] note might be different from the original. Merged With [facility] Service: Infectious Diseases Initial Consult Note Date [...] of prednisone. He presented on 10/31/2019 at [facility] in [place], [place] complaining of f ever, chills, severe [...] [facility], the patient received IV vancomycin and ceftriaxone. [...] [facility] prior to antibiotics. Patient is not a [...] reated with steroid and antibiotics went to [facility] with high-grade fever, ch ills, intractable [...] file Gets together: Not on file Attends anabaptist service: Not on file Active member of [...] Board Certified Neurosurgeon / Chief of Neurosurgery Merged With [facility] / [facility] [place] [facility] documented in this encounter Miscellaneous Notes [...] progressing Pt receiving IV vancomycin. lan of Jne Garcia RN - 11/21/2019 4:46 PM PSTPt [...] shift. End of shift audit completed. Arcelia Karuse RN lan of Jen Garcia RN - [...] JUSTINA GREENBERG RN lan of Milena - Mihcelle Lay RN - 11/14/2019 11:[address] Crouch and team: pt continues to b e medically ready for discharge- difficult finding placement due to behaviors and drug use. 1300[facility] going to reach out to [...] Michelle Newby RN - 11/13/2019 8:49 AM [id number]: [facility] called and said they are [...] Michelle Chisholm RN - 11/12/2019 8:09 AM [id number]: [facility] called back and asked a [...] RN - 11/11/2019 10:13 AM PSTPt stable; ACQUISITIONS LIBRARIAN a ttempted to see pt but pt [...] Michelle Newby RN - 11/11/2019 8:57 AM [id number]: called [facility] to follow up on refer ral- no answer, left voice mail. 0915: Shaun at [facility] called back and said they can not accept the pt. 0925: sent referrals to a few other [facility] Swing Bed/SNFs. Rounded with Dr Parkinson [...] to head and neck. Medicated with PO Kinney. Will continue to monitor. Mackenzie meeks RN [...] medically ready f or discharge. 1150: called [facility] for follow up- no answer, left voice [...] Del Angel RN - 11/07/2019 8:36 AM [id number]: called [facility]- spoke with Hallie, she said she will look to see if they got the fax and will call me back. She asked me to refax the referral- sent. Verified fax number. 0905: Eneida at [facility] called back and said they do not have any beds available right now. I informed her the situation with his drug use and what not. She said that she will keep his referral in case they get an open bed. 0920: called [facility]- no answer, left voice mail. 0950: [facility] called back asking for updated doctor notes- [...] Michelle Lay RN - 11/06/2019 9:38 AM [id number]: called [facility] Swing bed and spoke with Mariella- she said they are full. Then called Gordy at [facility]- she said she looked at [...] is medically ready for discharge- awaiting [facility]. 1135: G[facility] said they are unable to accept the pt. Messaged Yuan at [facility]. 1245: Yuan said she will take a [...] Del Angel RN - 11/05/2019 8:08 AM [id number]: called [facility] to follow up on refer ral- spoke with Sherlyn in admissions- she said the fax on file is for their physical therapy department. refaxed referral to [phone]. Rounded with Dr Parkinson and team: pt [...] positive for drugs. 1125: sent referrals to [facility] and [facility]. 1510: [facility] declined due to not having contract with insurance. Pt is from [place] on- sent referrals to a few swing beds and SNFs in [place]. lan of Milena - Robert Ortiz RN - 11/03/2019 3: 10 PM PSTPt stable; K @ 3.3 - 40 mEq administered via IVP; pt became agitated about missing wound appt w/Dr. Vines in [place], when he was told that he would [...] has graciously agreed to return cart to [facility] after use.Elect ronically signed by EUNICE Castillo at 11/02/2019 6:11 PM PSTPlan of Robert Mayorga RN - 11/02/2019 3:25 PM PSTPt stable; K 3.3 - 40 mEq IV admin, tele-psyche consult ordered; ECHO completed; chart audit complete. Robert Ortiz RN lan of [facility] Yamini Tony RN - 11/01/2019 10:55 [...] Contact Information Family Contact Information: Name: Yasmany [place] Needs Assessment Current Outpt/Agency/Support Groups: none Anticipated Changes Related to Illness: none Concerns to be Addressed: denies needs/concerns at this time Services Anticipated at Discharge: none Equipment Used at Home: crutches, axillary, prosthesis Initial Plan Anticipated Discharge Disposition: home Electronically signed: Michelle Lay RN 11/01/2019 8:15 AM lan of Lizbeth aPrsons MD - 10/31/2019 10:51 PM PSTCross cover [...] | + +--------+ + + + | AAMRI, TROUGH | RAISSA | 11/13/2019 | | [...] | | | POC | performed at [facility];[address] | | LABORATORY | | | | [address];[place] | | | | | | [address] | | | | + + + + + + + + | Specimen | + + | | + + + + + + + | Performing | Address | City/State/Zipcode | Phone Number | | Organization | | | | + + + + + | [facility] | [address] | [place] [address] | [phone] | + + + + + POC Glucose (11/28/2019 7:45 AM PST) + + + + + + | Component | Value | Ref Range | Performed | Pathologist | | | | | At | Signature | + + + + + + | Glucose, | 91Comment: Testing | 65 - 99 mg/dL | [facility] | | | POC | performed at [facility];[address] | | LABORATORY | | | | [address];[place] | | | | | | [address] | | | | + + + + + + + + | Specimen | + + | | + + + + + + + | Performing | Address | City/State/Zipcode | Phone Number | | Organization | | | | + + + + + | [facility] | [address] | [place] [address] | [phone] | + + + + + POC [...] | | | POC | performed at [facility];[address] | | LABORATORY | | | | [address];[place] | | | | | | [address] | | | | + + + + + + + + | Specimen | + + | | + + + + + + + | Performing | Address | City/State/Zipcode | Phone Number | | Organization | | | | + + + + + | [facility] | [address] | [place] [address] | [phone] | + + + + + POC Glucose (11/27/2019 8:52 PM PST) + + + + + + | Component | Value | Ref Range | Performed | Pathologist | | | | | At | Signature | + + + + + + | Glucose, | 146 (H)Comment: Testing | 65 - 99 mg/dL | [facility] | | | POC | performed at [facility];[address] | | LABORATORY | | | | [address];[place] | | | | | | [address] | | | | + + + + + + + + | Specimen | + + | | + + + + + + + | Performing | Address | City/State/Zipcode | Phone Number | | Organization | | | | + + + + + | [facility] | [address] | [place] [address] | [phone] | + + + + + POC Glucose (11/27/2019 5:05 PM PST) + + + + + + | Component | Value | Ref Range | Performed | Pathologist | | | | | At | Signature | + + + + + + | Glucose, | 144 (H)Comment: Testing | 65 - 99 mg/dL | [facility] | | | POC | performed at [facility];[address] | | LABORATORY | | | | [address];[place] | | | | | | [address] | | | | + + + + + + + + | Specimen | + + | | + + + + + + + | Performing | Address | City/State/Zipcode | Phone Number | | Organization | | | | + + + + + | [facility] | [address] | [place] [address] | [phone] | + + + + + POC [...] | | | POC | performed at [facility];[address] | | LABORATORY | | | | [address];[place], [place] | | | | | | [address] | | | | + + + + + + + + | Specimen | + + | | + + + + + + + | Performing | Address | City/State/Zipcode | Phone Number | | Organization | | | | + + + + + | [facility] | [address] | [place] [address] | [phone] | + + + + + CBC [...] | 0.37 | 0.00 - 0.50 | [facility] | | | , Absolute | | K/uL | LABORATORY | | + + + + + + | Basophils, | 0.04Comment: Testing | 0.00 - 0.10 | [facility] | | | Absolute | performed at [facility], [address] | K/uL | LABORATORY | [...] | + + + + + | [facility] | [address] | [place] [address] | [phone] | + + + + + Basic [...] | | | | | | MDRD IDTN traceable | | | | | | equation.Testing | | | | | | performed at [facility], [address] | | | | | | [facility], | | | | | | [place] [address] | | | | + + + + + + + + | Specimen | + + | Blood | + + + + + + + | Performing | Address | City/State/Zipcode | Phone Number | | Organization | | | | + + + + + | [facility] | [address] | [place] [address] | [phone] | + + + + + POC [...] | | | POC | performed at [facility];[address] | | LABORATORY | | | | [address];[place], [place] | | | | | | [address] | | | | + + + + + + + + | Specimen | + + | | + + + + + + + | Performing | Address | City/State/Zipcode | Phone Number | | Organization | | | | + + + + + | [facility] | [address] | [place] [address] | [phone] | + + + + + POC Glucose (11/26/2019 9:07 PM PST) + + + + + + | Component | Value | Ref Range | Performed | Pathologist | | | | | At | Signature | + + + + + + | Glucose, | 137 (H)Comment: Testing | 65 - 99 mg/dL | [facility] | | | POC | performed at [facility];[address] | | LABORATORY | | | | [address];[place], [place] | | | | | | [address] | | | | + + + + + + + + | Specimen | + + | | + + + + + + + | Performing | Address | City/State/Zipcode | Phone Number | | Organization | | | | + + + + + | [facility] | [address] | [place] [address] | [phone] | + + + + + POC Glucose (11/26/2019 4:12 PM PST) + + + + + + | Component | Value | Ref Range | Performed | Pathologist | | | | | At | Signature | + + + + + + | Glucose, | 148 (H)Comment: Testing | 65 - 99 mg/dL | [facility] | | | POC | performed at [facility];[address] | | LABORATORY | | | | [address];[place] | | | | | | [address] | | | | + + + + + + + + | Specimen | + + | | + + + + + + + | Performing | Address | City/State/Zipcode | Phone Number | | Organization | | | | + + + + + | [facility] | [address] | [place] [address] | [phone] | + + + + + POC [...] | | | POC | performed at [facility];[address] | | LABORATORY | | | | [address];[place], [place] | | | | | | [address] | | | | + + + + + + + + | Specimen | + + | | + + + + + + + | Performing | Address | City/State/Zipcode | Phone Number | | Organization | | | | + + + + + | [facility] | [address] | [place] [address] | [phone] | + + + + + POC [...] | | | POC | performed at [facility];[address] | | LABORATORY | | | | [address];[place] | | | | | | [address] | | | | + + + + + + + + | Specimen | + + | | + + + + + + + | Performing | Address | City/State/Zipcode | Phone Number | | Organization | | | | + + + + + | [facility] | [address] | [place] [address] | [phone] | + + + + + Renal [...] | | | | performed at [facility], [address] | | | | | | [facility], | | | | | | [place] [address] | | | | + + + + + + + + | Specimen | + + | | + + + + + + + | Performing | Address | City/State/Zipcode | Phone Number | | Organization | | | | + + + + + | [facility] | [address] [facility] | [place] [address] | [phone] | + + + + + CBC [...] [place] | | | | | | [address] | | | | + + + + + + + + | Specimen | + + | Blood | + + + + + + + | Performing | Address | City/State/Zipcode | Phone Number | | Organization | | | | + + + + + | [facility] | [address] | [place] [address] | [phone] | + + + + + POC Glucose (11/25/2019 9:04 PM PST) + + + + + + | Component | Value | Ref Range | Performed | Pathologist | | | | | At | Signature | + + + + + + | Glucose, | 162 (H)Comment: Testing | 65 - 99 mg/dL | [facility] | | | POC | performed at [facility];[address] | | LABORATORY | | | | [address];[place] | | | | | | [address] | | | | + + + + + + + + | Specimen | + + | | + + + + + + + | Performing | Address | City/State/Zipcode | Phone Number | | Organization | | | | + + + + + | [facility] | [address] | [place] [address] | [phone] | + + + + + POC [...] | | | POC | performed at [facility];[address] | | LABORATORY | | | | [address];[place], [place] | | | | | | [address] | | | | + + + + + + + + | Specimen | + + | | + + + + + + + | Performing | Address | City/State/Zipcode | Phone Number | | Organization | | | | + + + + + | [facility] | [address] | [place] [address] | [phone] | + + + + + POC Glucose (11/25/2019 12:01 PM PST) + + + + + + | Component | Value | Ref Range | Performed | Pathologist | | | | | At | Signature | + + + + + + | Glucose, | 191 (H)Comment: Testing | 65 - 99 mg/dL | [facility] | | | POC | performed at [facility];[address] | | LABORATORY | | | | [address];[place] | | | | | | [address] | | | | + + + + + + + + | Specimen | + + | | + + + + + + + | Performing | Address | City/State/Zipcode | Phone Number | | Organization | | | | + + + + + | [facility] | [address] | [place] [address] | [phone] | + + + + + POC Glucose (11/25/2019 8:17 AM PST) + + + + + + | Component | Value | Ref Range | Performed | Pathologist | | | | | At | Signature | + + + + + + | Glucose, | 121 (H)Comment: Testing | 65 - 99 mg/dL | [facility] | | | POC | performed at [facility];[address] | | LABORATORY | | | | [address];[place], [place] | | | | | | [address] | | | | + + + + + + + + | Specimen | + + | | + + + + + + + | Performing | Address | City/State/Zipcode | Phone Number | | Organization | | | | + + + + + | [facility] | [address] | [place] [address] | [phone] | + + + + + Creatinine [...] | | | | | performed at [facility];[address] | | | | | | [address];[place] | | | | | | [address] | | | | + + + + + + + + | Specimen | + + | Blood | + + + + + + + | Performing | Address | City/State/Zipcode | Phone Number | | Organization | | | | + + + + + | [facility] | [address] | [place] [address] | [phone] | + + + + + POC [...] | | | POC | performed at [facility];[address] | | LABORATORY | | | | [address];[place] | | | | | | [address] | | | | + + + + + + + + | Specimen | + + | | + + + + + + + | Performing | Address | City/State/Zipcode | Phone Number | | Organization | | | | + + + + + | [facility] | [address] | [place] [address] | [phone] | + + + + + POC Glucose (11/24/2019 9:10 PM PST) + + + + + + | Component | Value | Ref Range | Performed | Pathologist | | | | | At | Signature | + + + + + + | Glucose, | 182 (H)Comment: Testing | 65 - 99 mg/dL | [facility] | | | POC | performed at [facility];[address] | | LABORATORY | | | | [address];[place] | | | | | | [address] | | | | + + + + + + + + | Specimen | + + | | + + + + + + + | Performing | Address | City/State/Zipcode | Phone Number | | Organization | | | | + + + + + | [facility] | [address] | [place] [address] | [phone] | + + + + + POC Glucose (11/24/2019 4:31 PM PST) + + + + + + | Component | Value | Ref Range | Performed | Pathologist | | | | | At | Signature | + + + + + + | Glucose, | 207 (H)Comment: Testing | 65 - 99 mg/dL | [facility] | | | POC | performed at [facility];[address] | | LABORATORY | | | | [address];[place] | | | | | | [address] | | | | + + + + + + + + | Specimen | + + | | + + + + + + + | Performing | Address | City/State/Zipcode | Phone Number | | Organization | | | | + + + + + | [facility] | [address] | [place] [address] | [phone] | + + + + + POC [...] | | | POC | performed at [facility];[address] | | LABORATORY | | | | [address];[place], [place] | | | | | | [address] | | | | + + + + + + + + | Specimen | + + | | + + + + + + + | Performing | Address | City/State/Zipcode | Phone Number | | Organization | | | | + + + + + | [facility] [facility] | [address] | [place] [address] | [phone] | + + + + + POC [...] | | | POC | performed at [facility];888 | | LABORATORY | | | | [address];[place] | | | | | | [address] | | | | + + + + + + + + | Specimen | + + | | + + + + + + + | Performing | Address | City/State/Zipcode | Phone Number | | Organization | | | | + + + + + | [facility] | [address] | [place] [address] | [phone] | + + + + + POC Glucose (11/23/2019 8:35 PM PST) + + + + + + | Component | Value | Ref Range | Performed | Pathologist | | | | | At | Signature | + + + + + + | Glucose, | 159 (H)Comment: Testing | 65 - 99 mg/dL | [facility] | | | POC | performed at [facility];[address] | | LABORATORY | | | | [address];[place] | | | | | | [address] | | | | + + + + + + + + | Specimen | + + | | + + + + + + + | Performing | Address | City/State/Zipcode | Phone Number | | Organization | | | | + + + + + | [facility] | [address] | [place] [address] | [phone] | + + + + + POC [...] | | | POC | performed at [facility];888 | | LABORATORY | | | | [address];[place], [place] | | | | | | [address] | | | | + + + + + + + + | Specimen | + + | | + + + + + + + | Performing | Address | City/State/Zipcode | Phone Number | | Organization | | | | + + + + + | [facility] | [address] | [place] [address] | [phone] | + + + + + POC Glucose (11/23/2019 12:23 PM PST) + + + + + + | Component | Value | Ref Range | Performed | Pathologist | | | | | At | Signature | + + + + + + | Glucose, | 132 (H)Comment: Testing | 65 - 99 mg/dL | [facility] | | | POC | performed at [facility];[address] | | LABORATORY | | | | [address];[place] | | | | | | [address] | | | | + + + + + + + + | Specimen | + + | | + + + + + + + | Performing | Address | City/State/Zipcode | Phone Number | | Organization | | | | + + + + + | [facility] | [address] | [place] [address] | [phone] | + + + + + POC Glucose (11/23/2019 8:39 AM PST) + + + + + + | Component | Value | Ref Range | Performed | Pathologist | | | | | At | Signature | + + + + + + | Glucose, | 115 (H)Comment: Testing | 65 - 99 mg/dL | [facility] | | | POC | performed at [facility];888 | | LABORATORY | | | | [address];[place] | | | | | | [address] | | | | + + + + + + + + | Specimen | + + | | + + + + + + + | Performing | Address | City/State/Zipcode | Phone Number | | Organization | | | | + + + + + | [facility] | [address] | [place] [address] | [phone] | + + + + + CBC [...] [place] | | | | | | [address] | | | | + + + + + + + + | Specimen | + + | | + + + + + + + | Performing | Address | City/State/Zipcode | Phone Number | | Organization | | | | + + + + + | [facility] | [address] | [place] [address] | [phone] | + + + + + Renal [...] | | | | | | [address], | | | | | | [place] [address] | | | | + + + + + + + + | Specimen | + + | Blood | + + + + + + + | Performing | Address | City/State/Zipcode | Phone Number | | Organization | | | | + + + + + | [facility] | [address] [facility] | [place] [address] | [phone] | + + + + + POC [...] | | | POC | performed at [facility];[address] | | LABORATORY | | | | [address];[place], [place] | | | | | | [address] | | | | + + + + + + + + | Specimen | + + | | + + + + + + + | Performing | Address | City/State/Zipcode | Phone Number | | Organization | | | | + + + + + | [facility] | [address] | [place] [address] | [phone] | + + + + + POC [...] | | | POC | performed at [facility];[address] | | LABORATORY | | | | [address];[place] | | | | | | [address] | | | | + + + + + + + + | Specimen | + + | | + + + + + + + | Performing | Address | City/State/Zipcode | Phone Number | | Organization | | | | + + + + + | [facility] | [address] | [place] [address] | [phone] | + + + + + POC Glucose (11/22/2019 12:07 PM PST) + + + + + + | Component | Value | Ref Range | Performed | Pathologist | | | | | At | Signature | + + + + + + | Glucose, | 258 (H)Comment: Testing | 65 - 99 mg/dL | [facility] | | | POC | performed at [facility];888 | | LABORATORY | | | | [...] | + + + + + | [facility] | [address] | [place] [address] | [phone] | + + + + + Vancomycin, [...] | | | | | performed at [facility] | | | | | | [facility];[place], [place] | | | | | | [address] | | | | + + + + + + + + | Specimen | + + | Blood | + + + + + + + | Performing | Address | City/State/Zipcode | Phone Number | | Organization | | | | + + + + + | [facility] | [address] | [place] [address] | [phone] | + + + + + POC Glucose (11/22/2019 8:41 AM PST) + + + + + + | Component | Value | Ref Range | Performed | Pathologist | | | | | At | Signature | + + + + + + | Glucose, | 119 (H)Comment: Testing | 65 - 99 mg/dL | [facility] | | | POC | performed at [facility];888 | | LABORATORY | | | | [address];[place], [place] | | | | | | [address] | | | | + + + + + + + + | Specimen | + + | | + + + + + + + | Performing | Address | City/State/Zipcode | Phone Number | | Organization | | | | + + + + + | [facility] | [address] | [place] [address] | [phone] | + + + + + CBC [...] | | | Absolute | performed at [facility], [address] | [address] | LABORATORY | | | | [address], | | | | | | [place] [address] | | | | + + + + + + + + | Specimen | + + | | + + + + + + + | Performing | Address | City/State/Zipcode | Phone Number | | Organization | | | | + + + + + | [facility] | [address] | [place] [address] | [phone] | + + + + + Renal [...] 46 (L)Comment: GFR <60: | >60 | KR [...] | | | | performed at [facility], [address] | | | | | | [facility], | | | | | | [place] [address] | | | | + + + + + + + + | Specimen | + + | Blood | + + + + + + + | Performing | Address | City/State/Zipcode | Phone Number | | Organization | | | | + + + + + | [facility] | [address] | [place] [address] | [phone] | + + + + + POC Glucose (11/21/2019 8:33 PM PST) + + + + + + | Component | Value | Ref Range | Performed | Pathologist | | | | | At | Signature | + + + + + + | Glucose, | 196 (H)Comment: Testing | 65 - 99 mg/dL | [facility] | | | POC | performed at [facility];888 | | LABORATORY | | | | [address];[place] | | | | | | [address] | | | | + + + + + + + + | Specimen | + + | | + + + + + + + | Performing | Address | City/State/Zipcode | Phone Number | | Organization | | | | + + + + + | [facility] | [address] | [place] [address] | [phone] | + + + + + POC [...] | | | POC | performed at [facility];[address] | | LABORATORY | | | | [address];[place], [place] | | | | | | [address] | | | | + + + + + + + + | Specimen | + + | | + + + + + + + | Performing | Address | City/State/Zipcode | Phone Number | | Organization | | | | + + + + + | [facility] | [address] | [place] [address] | [phone] | + + + + + POC [...] | | | POC | performed at [facility];[address] | | LABORATORY | | | | [address];[place] | | | | | | [address] | | | | + + + + + + + + | Specimen | + + | | + + + + + + + | Performing | Address | City/State/Zipcode | Phone Number | | Organization | | | | + + + + + | [facility] | [address] | [place] [address] | [phone] | + + + + + Renal [...] | | | | | performed at [facility];[address] | | | | | | [address];[place] | | | | | | [address] | | | | + + + + + + + + | Specimen | + + | Blood | + + + + + + + | Performing | Address | City/State/Zipcode | Phone Number | | Organization | | | | + + + + + | [facility] | [address] | [place] [address] | [phone] | + + + + + POC [...] | | | POC | performed at [facility];[address] | | LABORATORY | | | | [address];[place], [place] | | | | | | [address] | | | | + + + + + + + + | Specimen | + + | | + + + + + + + | Performing | Address | City/State/Zipcode | Phone Number | | Organization | | | | + + + + + | [facility] | [address] | [place] [address] | [phone] | + + + + + POC [...] | | | POC | performed at [facility];[address] | | LABORATORY | | | | [address];[place] | | | | | | [address] | | | | + + + + + + + + | Specimen | + + | | + + + + + + + | Performing | Address | City/State/Zipcode | Phone Number | | Organization | | | | + + + + + | [facility] | [address] | [place] [address] | [phone] | + + + + + POC Glucose (11/20/2019 5:04 PM PST) + + + + + + | Component | Value | Ref Range | Performed | Pathologist | | | | | At | Signature | + + + + + + | Glucose, | 164 (H)Comment: Testing | 65 - 99 mg/dL | [facility] | | | POC | performed at [facility];[address] | | LABORATORY | | | | [address];[place], [place] | | | | | | [address] | | | | + + + + + + + + | Specimen | + + | | + + + + + + + | Performing | Address | City/State/Zipcode | Phone Number | | Organization | | | | + + + + + | [facility] | [address] | [place] [address] | [phone] | + + + + + POC [...] | | | POC | performed at [facility];[address] | | LABORATORY | | | | [address];[place], [place] | | | | | | [address] | | | | + + + + + + + + | Specimen | + + | | + + + + + + + | Performing | Address | City/State/Zipcode | Phone Number | | Organization | | | | + + + + + | [facility] | [address] | [place] [address] | [phone] | + + + + + Renal [...] 46 (L)Comment: GFR <60: | >60 | KR [...] | | | | | | MDRD IDTN traceable | | | | | | equation.Testing | | | | | | performed at [facility], [address] | | | | | | [facility], | | | | | | [place] [address] | | | | + + + + + + + + | Specimen | + + | Blood | + + + + + + + | Performing | Address | City/State/Zipcode | Phone Number | | Organization | | | | + + + + + | [facility] | [address] | [place] [address] | [phone] | + + + + + POC [...] | | | POC | performed at [facility];[address] | | LABORATORY | | | | [address];[place], [place] | | | | | | [address] | | | | + + + + + + + + | Specimen | + + | | + + + + + + + | Performing | Address | City/State/Zipcode | Phone Number | | Organization | | | | + + + + + | [facility] | [address] | [place] [address] | [phone] | + + + + + POC [...] | | | POC | performed at [facility];[address] | | LABORATORY | | | | [address];[place], [place] | | | | | | [address] | | | | + + + + + + + + | Specimen | + + | | + + + + + + + | Performing | Address | City/State/Zipcode | Phone Number | | Organization | | | | + + + + + | [facility] | [address] | [place] [address] | [phone] | + + + + + POC Glucose (11/19/2019 11:54 AM PST) + + + + + + | Component | Value | Ref Range | Performed | Pathologist | | | | | At | Signature | + + + + + + | Glucose, | 226 (H)Comment: Testing | 65 - 99 mg/dL | [facility] | | | POC | performed at [facility];[address] | | LABORATORY | | | | [address];[place], [place] | | | | | | [address] | | | | + + + + + + + + | Specimen | + + | | + + + + + + + | Performing | Address | City/State/Zipcode | Phone Number | | Organization | | | | + + + + + | [facility] | [address] | [place] [address] | [phone] | + + + + + Renal [...] | | | | | | MDRD IDTN traceable | | | | | | equation.Testing | | | | | | performed at [facility];[address] | | | | | | [facility];[place], [place] | | | | | | [address] | | | | + + + + + + + + | Specimen | + + | Blood | + + + + + + + | Performing | Address | City/State/Zipcode | Phone Number | | Organization | | | | + + + + + | [facility] | [address] | [place] [address] | [phone] | + + + + + Vancomycin Trough (11/19/2019 10:49 AM PST) + + [...] | | | | | performed at [facility] | | | | | | [facility];[place], [place] | | | | | | [address] | | | | + + + + + + + + | Specimen | + + | Blood | + + + + + + + | Performing | Address | City/State/Zipcode | Phone Number | | Organization | | | | + + + + + | [facility] | [address] | [place] [address] | [phone] | + + + + + POC Glucose (11/19/2019 8:19 AM PST) + + + + + + | Component | Value | Ref Range | Performed | Pathologist | | | | | At | Signature | + + + + + + | Glucose, | 107 (H)Comment: Testing | 65 - 99 mg/dL | [facility] | | | POC | performed at [facility];[address] | | LABORATORY | | | | [address];[place] | | | | | | [address] | | | | + + + + + + + + | Specimen | + + | | + + + + + + + | Performing | Address | City/State/Zipcode | Phone Number | | Organization | | | | + + + + + | [facility] | [address] | [place] [address] | [phone] | + + + + + POC Glucose (11/18/2019 8:47 PM PST) + + + + + + | Component | Value | Ref Range | Performed | Pathologist | | | | | At | Signature | + + + + + + | Glucose, | 147 (H)Comment: Testing | 65 - 99 mg/dL | [facility] | | | POC | performed at [facility];[address] | | LABORATORY | | | | [address];[place], [place] | | | | | | [address] | | | | + + + + + + + + | Specimen | + + | | + + + + + + + | Performing | Address | City/State/Zipcode | Phone Number | | Organization | | | | + + + + + | [facility] | [address] | [place] [address] | [phone] | + + + + + POC [...] | | | POC | performed at [facility];[address] | | LABORATORY | | | | [address];[place] | | | | | | [address] | | | | + + + + + + + + | Specimen | + + | | + + + + + + + | Performing | Address | City/State/Zipcode | Phone Number | | Organization | | | | + + + + + | [facility] | [address] [facility] | [place] [address] | [phone] | + + + + + POC Glucose (11/18/2019 11:23 AM PST) + + + + + + | Component | Value | Ref Range | Performed | Pathologist | | | | | At | Signature | + + + + + + | Glucose, | 227 (H)Comment: Testing | 65 - 99 mg/dL | [facility] | | | POC | performed at [facility];[address] | | LABORATORY | | | | [address];[place] | | | | | | [address] | | | | + + + + + + + + | Specimen | + + | | + + + + + + + | Performing | Address | City/State/Zipcode | Phone Number | | Organization | | | | + + + + + | [facility] | [address] | [place] [address] | [phone] | + + + + + Renal [...] 47 (L)Comment: GFR <60: | >60 | KR [...] | | | | | performed at [facility] | | | | | | [facility];[place], [place] | | | | | | [address] | | | | + + + + + + + + | Specimen | + + | Blood | + + + + + + + | Performing | Address | City/State/Zipcode | Phone Number | | Organization | | | | + + + + + | [facility] | [address] | [place] [address] | [phone] | + + + + + POC Glucose (11/18/2019 7:37 AM PST) + + + + + + | Component | Value | Ref Range | Performed | Pathologist | | | | | At | Signature | + + + + + + | Glucose, | 144 (H)Comment: Testing | 65 - 99 mg/dL | [facility] | | | POC | performed at [facility];[address] | | LABORATORY | | | | [address];[place], [place] | | | | | | [address] | | | | + + + + + + + + | Specimen | + + | | + + + + + + + | Performing | Address | City/State/Zipcode | Phone Number | | Organization | | | | + + + + + | [facility] | [address] | [place] [address] | [phone] | + + + + + POC [...] | | | POC | performed at [facility];[address] | | LABORATORY | | | | [address];[place], [place] | | | | | | [address] | | | | + + + + + + + + | Specimen | + + | | + + + + + + + | Performing | Address | City/State/Zipcode | Phone Number | | Organization | | | | + + + + + | [facility] | [address] | [place] [address] | [phone] | + + + + + Renal [...] 4.6 | 2.3 - 4.8 mg/dL | [facility] | | | | | | [facility] | | + + + + + + | Estimated | 40 (L)Comment: GFR <60: | >60 | [facility] | | | GFR | [...] | | | | performed at [facility], [address] | | | | | | [facility], | | | | | | [place] [address] | | | | + + + + + + + + | Specimen | + + | Blood | + + + + + + + | Performing | Address | City/State/Zipcode | Phone Number | | Organization | | | | + + + + + | [facility] | [address] | [place] [address] | [phone] | + + + + + POC Glucose (11/16/2019 8:17 PM PST) + + + + + + | Component | Value | Ref Range | Performed | Pathologist | | | | | At | Signature | + + + + + + | Glucose, | 213 (H)Comment: Testing | 65 - 99 mg/dL | [facility] | | | POC | performed at [facility];[address] | | LABORATORY | | | | [address];[place] | | | | | | [address] | | | | + + + + + + + + | Specimen | + + | | + + + + + + + | Performing | Address | City/State/Zipcode | Phone Number | | Organization | | | | + + + + + | [facility] | [address] | [place] [address] | [phone] | + + + + + POC [...] | | | POC | performed at [facility];[address] | | LABORATORY | | | | [address];[place], [place] | | | | | | [address] | | | | + + + + + + + + | Specimen | + + | | + + + + + + + | Performing | Address | City/State/Zipcode | Phone Number | | Organization | | | | + + + + + | [facility] | [address] | [place] [address] | [phone] | + + + + + POC [...] | | | POC | performed at [facility];[address] | | LABORATORY | | | | [address];[place] | | | | | | [address] | | | | + + + + + + + + | Specimen | + + | | + + + + + + + | Performing | Address | City/State/Zipcode | Phone Number | | Organization | | | | + + + + + | [facility] | [address] | [place] [address] | [phone] | + + + + + Vancomycin, Trough (11/16/2019 10:45 AM PST) + + + + + + | Component | Value | Ref Range | Performed | Pathologist | | | | | At | Signature | + + + + + + | Vancomycin, | 19.8Comment: 15 to 20 | 10 - 20 ug/mL | [facility] | | | Trough | [...] | | | | | performed at [facility];[address] | | | | | | [address];[place], [place] | | | | | | [address] | | | | + + + + + + + + | Specimen | + + | Blood | + + + + + + + | Performing | Address | City/State/Zipcode | Phone Number | | Organization | | | | + + + + + | [facility] | [address] [facility] | [place] [address] | [phone] | + + + + + POC Glucose (11/16/2019 8:13 AM PST) + + + + + + | Component | Value | Ref Range | Performed | Pathologist | | | | | At | Signature | + + + + + + | Glucose, | 99Comment: Testing | 65 - 99 mg/dL | [facility] | | | POC | performed at [facility];[address] | | LABORATORY | | | | [address];[place] | | | | | | [address] | | | | + + + + + + + + | Specimen | + + | | + + + + + + + | Performing | Address | City/State/Zipcode | Phone Number | | Organization | | | | + + + + + | [facility] | [address] | [place] [address] | [phone] | + + + + + CBC [...] | | | Absolute | performed at [facility], [address] | [address] | LABORATORY | | | | [address], | | | | | | [place] [address] | | | | + + + + + + + + | Specimen | + + | | + + + + + + + | Performing | Address | City/State/Zipcode | Phone Number | | Organization | | | | + + + + + | [facility] | [address] | [place] [address] | [phone] | + + + + + Renal [...] 53 (L)Comment: GFR <60: | >60 | [facility] | | | GFR | [...] | | | | performed at [facility], [address] | | | | | | [facility], | | | | | | [place] [address] | | | | + + + + + + + + | Specimen | + + | Blood | + + + + + + + | Performing | Address | City/State/Zipcode | Phone Number | | Organization | | | | + + + + + | [facility] | [address] | [place] [address] | [phone] | + + + + + POC [...] | | | POC | performed at [facility];[address] | | LABORATORY | | | | [address];[place] | | | | | | [address] | | | | + + + + + + + + | Specimen | + + | | + + + + + + + | Performing | Address | City/State/Zipcode | Phone Number | | Organization | | | | + + + + + | [facility] | [address] | [place] [address] | [phone] | + + + + + POC Glucose (11/15/2019 5:05 PM PST) + + + + + + | Component | Value | Ref Range | Performed | Pathologist | | | | | At | Signature | + + + + + + | Glucose, | 163 (H)Comment: Testing | 65 - 99 mg/dL | [facility] | | | POC | performed at [facility];[address] | LABORATORY | | | [address] | | | | | | [address] | | | | + + + + + + + + | Specimen | + + | | + + + + + + + | Performing | Address | City/State/Zipcode | Phone Number | | Organization | | | | + + + + + | [facility] | [address] | [place] [address] | [phone] | + + + + + POC [...] | | | POC | performed at [facility];[address] | | LABORATORY | | | | [address];[place], [place] | | | | | | [address] | | | | + + + + + + + + | Specimen | + + | | + + + + + + + | Performing | Address | City/State/Zipcode | Phone Number | | Organization | | | | + + + + + | [facility] | [address] | [place] [address] | [phone] | + + + + + POC Glucose (11/15/2019 8:06 AM PST) + + + + + + | Component | Value | Ref Range | Performed | Pathologist | | | | | At | Signature | + + + + + + | Glucose, | 139 (H)Comment: Testing | 65 - 99 mg/dL | [facility] | | | POC | performed at [facility];[address] | | LABORATORY | | | | [address], [place] | | | | | | [address] | | | | + + + + + + + + | Specimen | + + | | + + + + + + + | Performing | Address | City/State/Zipcode | Phone Number | | Organization | | | | + + + + + | [facility] [facility] | [address] | [place] [address] | [phone] | + + + + + POC Glucose (11/14/2019 8:01 PM PST) + + + + + + | Component | Value | Ref Range | Performed | Pathologist | | | | | At | Signature | + + + + + + | Glucose, | 174 (H)Comment: Testing | 65 - 99 mg/dL | [facility] | | | POC | performed at [facility];888 | | LABORATORY | | | | [address];[place] | | | | | | [address] | | | | + + + + + + + + | Specimen | + + | | + + + + + + + | Performing | Address | City/State/Zipcode | Phone Number | | Organization | | | | + + + + + | [facility] | [address] | [place] [address] | [phone] | + + + + + POC [...] | | | POC | performed at [facility];[address] | | LABORATORY | | | | [address];[place], [place] | | | | | | [address] | | | | + + + + + + + + | Specimen | + + | | + + + + + + + | Performing | Address | City/State/Zipcode | Phone Number | | Organization | | | | + + + + + | [facility] | [address] | [place] [address] | [phone] | + + + + + POC [...] | | | POC | performed at [facility];[address] | | LABORATORY | | | | [address];[place], [place] | | | | | | [address] | | | | + + + + + + + + | Specimen | + + | | + + + + + + + | Performing | Address | City/State/Zipcode | Phone Number | | Organization | | | | + + + + + | [facility] | [address] [facility] [address] | [place] [address] | [phone] | + + + + + Renal [...] | | | | performed at [facility], [address] | | | | | | [address], | | | | | | [place] [address] | | | | + + + + + + + + | Specimen | + + | Blood | + + + + + + + | Performing | Address | City/State/Zipcode | Phone Number | | Organization | | | | + + + + + | [facility] | [address] | [place] [address] | [phone] | + + + + + POC [...] | | | POC | performed at [facility];[address] | | LABORATORY | | | | [address];[place], [place] | | | | | | [address] | | | | + + + + + + + + | Specimen | + + | | + + + + + + + | Performing | Address | City/State/Zipcode | Phone Number | | Organization | | | | + + + + + | [facility] | [address] | [place] [address] | [phone] | + + + + + POC [...] | | | POC | performed at [facility];[address] | | LABORATORY | | | | [address];[place] | | | | | | [address] | | | | + + + + + + + + | Specimen | + + | | + + + + + + + | Performing | Address | City/State/Zipcode | Phone Number | | Organization | | | | + + + + + | [facility] | [address] | [place] [address] | [phone] | + + + + + Vancomycin, [...] | | | | | | VERIFIEDBECKY Garibay RN 7RP @ | | | | | | 2016 DLSTesting | | | | | | performed at [facility] | | | | | | [address];[place], [place] | | | | | | [address] | | | | + + + + + + + + | Specimen | + + | Blood | + + + + + + + | Performing | Address | City/State/Zipcode | Phone Number | | Organization | | | | + + + + + | [facility] | [address] | [place] [address] | [phone] | + + + + + POC Glucose (11/13/2019 4:28 PM PST) + + + + + + | Component | Value | Ref Range | Performed | Pathologist | | | | | At | Signature | + + + + + + | Glucose, | 215 (H)Comment: Testing | 65 - 99 mg/dL | [facility] | | | POC | performed at [facility];[address] | | LABORATORY | | | | [address];[place] | | | | | | [address] | | | | + + + + + + + + | Specimen | + + | | + + + + + + + | Performing | Address | City/State/Zipcode | Phone Number | | Organization | | | | + + + + + | [facility] | [address] | [place] [address] | [phone] | + + + + + POC Glucose (11/13/2019 11:42 AM PST) + + + + + + | Component | Value | Ref Range | Performed | Pathologist | | | | | At | Signature | + + + + + + | Glucose, | 213 (H)Comment: Testing | 65 - 99 mg/dL | [facility] | | | POC | performed at [facility];[address] | | LABORATORY | | | | [address];[place], [place] | | | | | | [address] | | | | + + + + + + + + | Specimen | + + | | + + + + + + + | Performing | Address | City/State/Zipcode | Phone Number | | Organization | | | | + + + + + | [facility] | [address] | [place] [address] | [phone] | + + + + + POC [...] | | | POC | performed at [facility];[address] | | LABORATORY | | | | [address];[place], [place] | | | | | | [address] | | | | + + + + + + + + | Specimen | + + | | + + + + + + + | Performing | Address | City/State/Zipcode | Phone Number | | Organization | | | | + + + + + | [facility] | [address] | [place] [address] | [phone] | + + + + + Renal [...] 3.7 | 2.3 - 4.8 mg/dL | [facility] [...] [address] | | | | | | [facility], | | | | | | [place] [address] | | | | + + + + + + + + | Specimen | + + | Blood | + + + + + + + | Performing | Address | City/State/Zipcode | Phone Number | | Organization | | | | + + + + + | [facility] | [address] | [place] [address] | [phone] | + + + + + POC [...] | | | POC | performed at [facility];[address] | | LABORATORY | | | | [address];[place] | | | | | | [address] | | | | + + + + + + + + | Specimen | + + | | + + + + + + + | Performing | Address | City/State/Zipcode | Phone Number | | Organization | | | | + + + + + | [facility] | [address] | [place] [address] | [phone] | + + + + + CBC [...] LABORATORY | | | | performed at [facility];[address] | | | | | | [address];[place], [place] | | | | | | [address] | | | | + + + + + + + + | Specimen | + + | Blood | + + + + + + + | Performing | Address | City/State/Zipcode | Phone Number | | Organization | | | | + + + + + | [facility] | [address] | [place] [address] | [phone] | + + + + + Hemoglobin A1C (11/12/2019 7:18 PM PST) + + + + + + | Component | Value | Ref Range | Performed | Pathologist | | | | | At | Signature | + + + + + + | Hemoglobin | 8.0 (H)Comment: HbA1c | 4.0 - 6.0 % | [facility] | | | A1c | [...] | 183 (H)Comment: | <154 mg/dL | [facility] | | | Average | Estimated Average | | LABORATORY | | | Glucose | Glucose calculated from | | | | | | hemoglobin A1c by use of | | | | | | the ADArecommended | | | | | | formula.Testing | | | | | | performed at [facility], [address] | | | | | | [facility], | | | | | | [place] [address] | | | | + + + + + + + + | Specimen | + + | Blood | + + + + + + + | Performing | Address | City/State/Zipcode | Phone Number | | Organization | | | | + + + + + | [facility] | [address] | [place] [address] | [phone] | + + + + + POC Glucose (11/12/2019 4:29 PM PST) + + + + + + | Component | Value | Ref Range | Performed | Pathologist | | | | | At | Signature | + + + + + + | Glucose, | 367 (H)Comment: Testing | 65 - 99 mg/dL | [facility] | | | POC | performed at [facility];[address] | | LABORATORY | | | | [address];[place] | | | | | | [address] | | | | + + + + + + + + | Specimen | + + | | + + + + + + + | Performing | Address | City/State/Zipcode | Phone Number | | Organization | | | | + + + + + | [facility] | [address] | [place] [address] | [phone] | + + + + + POC Glucose (11/12/2019 11:53 AM PST) + + + + + + | Component | Value | Ref Range | Performed | Pathologist | | | | | At | Signature | + + + + + + | Glucose, | 231 (H)Comment: Testing | 65 - 99 mg/dL | [facility] | | | POC | performed at [facility];[address] | | LABORATORY | | | | [address];[place] | | | | | | [address] | | | | + + + + + + + + | Specimen | + + | | + + + + + + + | Performing | Address | City/State/Zipcode | Phone Number | | Organization | | | | + + + + + | [facility] | [address] | [place] [address] | [phone] | + + + + + POC [...] | | | POC | performed at [facility];[address] | | LABORATORY | | | | [address];[place] | | | | | | [address] | | | | + + + + + + + + | Specimen | + + | | + + + + + + + | Performing | Address | City/State/Zipcode | Phone Number | | Organization | | | | + + + + + | [facility] | [address] | [place] [address] | [phone] | + + + + + Vancomycin, Trough (11/12/2019 7:11 AM PST) + + + + + + | Component | Value | Ref Range | Performed | Pathologist | | | | | At | Signature | + + + + + + | Vancomycin, | 15.5Comment: 15 to 20 | 10 - 20 ug/mL | [facility] | | | Trough | [...] | | | | | performed at [facility];[address] | | | | | | [address];[place] | | | | | | [address] | | | | + + + + + + + + | Specimen | + + | Blood | + + + + + + + | Performing | Address | City/State/Zipcode | Phone Number | | Organization | | | | + + + + + | [facility] | [address] | [place] [address] | [phone] | + + + + + Renal [...] | | | | performed at [facility], [address] | | | | | | [address] [facility], | | | | | | [place] [address] | | | | + + + + + + + + | Specimen | + + | Blood | + + + + + + + | Performing | Address | City/State/Zipcode | Phone Number | | Organization | | | | + + + + + | [facility] | [address] [facility] | [place] [address] | [phone] | + + + + + POC [...] | | | POC | performed at [facility];[address] | | LABORATORY | | | | [address];[place], [place] | | | | | | [address] | | | | + + + + + + + + | Specimen | + + | | + + + + + + + | Performing | Address | City/State/Zipcode | Phone Number | | Organization | | | | + + + + + | [facility] | [address] | [place] [address] | [phone] | + + + + + POC [...] | | | POC | performed at [facility];[address] | | LABORATORY | | | | [address];[place] | | | | | | [address] | | | | + + + + + + + + | Specimen | + + | | + + + + + + + | Performing | Address | City/State/Zipcode | Phone Number | | Organization | | | | + + + + + | [facility] | [address] | [place] [address] | [phone] | + + + + + POC Glucose (11/11/2019 4:41 PM PST) + + + + + + | Component | Value | Ref Range | Performed | Pathologist | | | | | At | Signature | + + + + + + | Glucose, | 291 (H)Comment: Testing | 65 - 99 mg/dL | [facility] | | | POC | performed at [facility];[address] | | LABORATORY | | | | [address];[place] | | | | | | [address] | | | | + + + + + + + + | Specimen | + + | | + + + + + + + | Performing | Address | City/State/Zipcode | Phone Number | | Organization | | | | + + + + + | [facility] | [address] | [place] [address] | [phone] | + + + + + POC [...] | | | POC | performed at [facility];[address] | | LABORATORY | | | | [address];[place], [place] | | | | | | [address] | | | | + + + + + + + + | Specimen | + + | | + + + + + + + | Performing | Address | City/State/Zipcode | Phone Number | | Organization | | | | + + + + + | [facility] | [address] | [place] [address] | [phone] | + + + + + POC Glucose (11/11/2019 7:56 AM PST) + + + + + + | Component | Value | Ref Range | Performed | Pathologist | | | | | At | Signature | + + + + + + | Glucose, | 174 (H)Comment: Testing | 65 - 99 mg/dL | [facility] | | | POC | performed at [facility];[address] | | LABORATORY | | | | [address];[place] | | | | | | [address] | | | | + + + + + + + + | Specimen | + + | | + + + + + + + | Performing | Address | City/State/Zipcode | Phone Number | | Organization | | | | + + + + + | [facility] | [address] | [place] [address] | [phone] | + + + + + Renal [...] | | | | performed at [facility], [address] | | | | | | [address] [facility], | | | | | | [place] [address] | | | | + + + + + + + + | Specimen | + + | | + + + + + + + | Performing | Address | City/State/Zipcode | Phone Number | | Organization | | | | + + + + + | [facility] | [address] | [place] [address] | [phone] | + + + + + Sedimentation Rate (11/11/2019 5:46 AM PST) + + + + + + | Component | Value | Ref Range | Performed | Pathologist | | | | | At | Signature | + + + + + + | ESR | GREATER THAN 130Comment: | 0 - 20 mm/Hr | [facility] | | | | RESULT VERIFIEDTesting | | LABORATORY | | | | performed at [facility], [address] | | | | | [address], | | | | | | [place] [address] | | | | + + + + + + + + | Specimen | + + | Blood | + + + + + + + | Performing | Address | City/State/Zipcode | Phone Number | | Organization | | | | + + + + + | [facility] | [address] | [place] [address] | [phone] | + + + + + C-Reactive Protein (11/11/2019 5:46 AM PST) + + + + + + | Component | Value | Ref Range | Performed | Pathologist | | | | | At | Signature | + + + + + + | CRP | 8.1 (H)Comment: Testing | <0.5 mg/dL | [facility] | | | | performed at [facility], [address] | | LABORATORY | | | | [address], | | | | | | [place] [address] | | | | + + + + + + + + | Specimen | + + | Blood | + + + + + + + | Performing | Address | City/State/Zipcode | Phone Number | | Organization | | | | + + + + + | [facility] | [address] | [place] [address] | [phone] | + + + + + POC Glucose (11/11/2019 4:45 AM PST) + + + + + + | Component | Value | Ref Range | Performed | Pathologist | | | | | At | Signature | + + + + + + | Glucose, | 209 (H)Comment: Testing | 65 - 99 mg/dL | [facility] | | | POC | performed at [facility];[address] | | LABORATORY | | | | [address];[place] | | | | | | [address] | | | | + + + + + + + + | Specimen | + + | | + + + + + + + | Performing | Address | City/State/Zipcode | Phone Number | | Organization | | | | + + + + + | [facility] | [address] | [place] [address] | [phone] | + + + + + POC [...] | | | POC | performed at [facility];[address] | | LABORATORY | | | | [address];[place] | | | | | | [address] | | | | + + + + + + + + | Specimen | + + | | + + + + + + + | Performing | Address | City/State/Zipcode | Phone Number | | Organization | | | | + + + + + | [facility] | [address] | [place] [address] | [phone] | + + + + + POC [...] | | | POC | performed at [facility];[address] | | LABORATORY | | | | [address];[place] | | | | | | [address] | | | | + + + + + + + + | Specimen | + + | | + + + + + + + | Performing | Address | City/State/Zipcode | Phone Number | | Organization | | | | + + + + + | [facility] | [address] | [place] [address] | [phone] | + + + + + Vancomycin, [...] | | | | | performed at [facility] | | | | | | [facility];[place], [place] | | | | | | [address] | | | | + + + + + + + + | Specimen | + + | Blood | + + + + + + + | Performing | Address | City/State/Zipcode | Phone Number | | Organization | | | | + + + + + | [facility] | [address] | [place] [address] | [phone] | + + + + + POC Glucose (11/10/2019 5:14 PM PST) + + + + + + | Component | Value | Ref Range | Performed | Pathologist | | | | | At | Signature | + + + + + + | Glucose, | 238 (H)Comment: Testing | 65 - 99 mg/dL | [facility] | | | POC | performed at [facility];[address] | | LABORATORY | | | | [address];[place] | | | | | | [address] | | | | + + + + + + + + | Specimen | + + | | + + + + + + + | Performing | Address | City/State/Zipcode | Phone Number | | Organization | | | | + + + + + | [facility] | [address] | [place] [address] | [phone] | + + + + + POC [...] | | | POC | performed at [facility];[address] | | LABORATORY | | | | [address];[place] | | | | | | [address] | | | | + + + + + + + + | Specimen | + + | | + + + + + + + | Performing | Address | City/State/Zipcode | Phone Number | | Organization | | | | + + + + + | [facility] | [address] | [place] [address] | [phone] | + + + + + POC [...] | | | POC | performed at [facility];[address] | | LABORATORY | | | | [address];[place], [place] | | | | | | [address] | | | | + + + + + + + + | Specimen | + + | | + + + + + + + | Performing | Address | City/State/Zipcode | Phone Number | | Organization | | | | + + + + + | [facility] | [address] | [place] [address] | [phone] | + + + + + Renal [...] | | | | | | MDRD IDTN traceable | | | | | | equation.Testing | | | | | | performed at [facility], [address] | | | | | | [facility], | | | | | | [place] [address] | | | | + + + + + + + + | Specimen | + + | Blood | + + + + + + + | Performing | Address | City/State/Zipcode | Phone Number | | Organization | | | | + + + + + | [facility] | [address] | [place] [address] | [phone] | + + + + + POC Glucose (11/09/2019 8:49 PM PST) + + + + + + | Component | Value | Ref Range | Performed | Pathologist | | | | | At | Signature | + + + + + + | Glucose, | 197 (H)Comment: Testing | 65 - 99 mg/dL | [facility] | | | POC | performed at [facility];[address] | | LABORATORY | | | | [address];[place], [place] | | | | | | [address] | | | | + + + + + + + + | Specimen | + + | | + + + + + + + | Performing | Address | City/State/Zipcode | Phone Number | | Organization | | | | + + + + + | [facility] | [address] | [place] [address] | [phone] | + + + + + POC Glucose (11/09/2019 4:32 PM PST) + + + + + + | Component | Value | Ref Range | Performed | Pathologist | | | | | At | Signature | + + + + + + | Glucose, | 238 (H)Comment: Testing | 65 - 99 mg/dL | [facility] | | | POC | performed at [facility];[address] | | LABORATORY | | | | [address];[place] | | | | | | [address] | | | | + + + + + + + + | Specimen | + + | | + + + + + + + | Performing | Address | City/State/Zipcode | Phone Number | | Organization | | | | + + + + + | [facility] | [address] | [place] [address] | [phone] | + + + + + POC [...] | | | POC | performed at [facility];[address] | | LABORATORY | | | | [address];[place], [place] | | | | | | [address] | | | | + + + + + + + + | Specimen | + + | | + + + + + + + | Performing | Address | City/State/Zipcode | Phone Number | | Organization | | | | + + + + + | [facility] | [address] | [place] [address] | [phone] | + + + + + POC [...] | | | POC | performed at [facility];[address] | | LABORATORY | | | | [address];[place] | | | | | | [address] | | | | + + + + + + + + | Specimen | + + | | + + + + + + + | Performing | Address | City/State/Zipcode | Phone Number | | Organization | | | | + + + + + | [facility] | [address] [facility] [address] | [place] [address] | [phone] | + + + + + Renal [...] | | | | performed at [facility], [address] | | | | | | [address], | | | | | | [place] [address] | | | | + + + + + + + + | Specimen | + + | Blood | + + + + + + + | Performing | Address | City/State/Zipcode | Phone Number | | Organization | | | | + + + + + | [facility] | [address] [facility] | [place] [address] | [phone] | + + + + + POC [...] | | | POC | performed at [facility];[address] | | LABORATORY | | | | [address];[place], [place] | | | | | | [address] | | | | + + + + + + + + | Specimen | + + | | + + + + + + + | Performing | Address | City/State/Zipcode | Phone Number | | Organization | | | | + + + + + | [facility] | [address] | [place] [address] | [phone] | + + + + + POC [...] | | | POC | performed at [facility];[address] | | LABORATORY | | | | [address];[place] | | | | | | [address] | | | | + + + + + + + + | Specimen | + + | | + + + + + + + | Performing | Address | City/State/Zipcode | Phone Number | | Organization | | | | + + + + + | [facility] | [address] | [place] [address] | [phone] | + + + + + POC Glucose (11/08/2019 11:32 AM PST) + + + + + + | Component | Value | Ref Range | Performed | Pathologist | | | | | At | Signature | + + + + + + | Glucose, | 257 (H)Comment: Testing | 65 - 99 mg/dL | [facility] | | | POC | performed at [facility];[address] | | LABORATORY | | | | [address];[place], [place] | | | | | | [address] | | | | + + + + + + + + | Specimen | + + | | + + + + + + + | Performing | Address | City/State/Zipcode | Phone Number | | Organization | | | | + + + + + | [facility] | [address] | [place] [address] | [phone] | + + + + + POC [...] | | | POC | performed at [facility];[address] | | LABORATORY | | | | [address];[place], [place] | | | | | | [address] | | | | + + + + + + + + | Specimen | + + | | + + + + + + + | Performing | Address | City/State/Zipcode | Phone Number | | Organization | | | | + + + + + | [facility] | [address] | [place] [address] | [phone] | + + + + + CBC with Differential (11/08/2019 5:23 AM PST) + + + + + + | Component | Value | Ref Range | Performed | Pathologist | | | | | At | Signature | + + + + + + | WBC | 8.32 | 3.80 - 11.00 | [place] | | | | | K/uL | [...] | | | Absolute | performed at [facility], [address] | [address] | LABORATORY | | | | [address], | | | | | | [place] [address] | | | | + + + + + + + + | Specimen | + + | Blood | + + + + + + + | Performing | Address | City/State/Zipcode | Phone Number | | Organization | | | | + + + + + | [facility] | [address] | [place] [address] | [phone] | + + + + + POC Glucose (11/07/2019 9:14 PM PST) + + + + + + | Component | Value | Ref Range | Performed | Pathologist | | | | | At | Signature | + + + + + + | Glucose, | 221 (H)Comment: Testing | 65 - 99 mg/dL | [facility] | | | POC | performed at [facility];[address] | | LABORATORY | | | | [address];[place] | | | | | | [address] | | | | + + + + + + + + | Specimen | + + | | + + + + + + + | Performing | Address | City/State/Zipcode | Phone Number | | Organization | | | | + + + + + | [facility] | [address] | [place] [address] | [phone] | + + + + + POC Glucose (11/07/2019 4:15 PM PST) + + + + + + | Component | Value | Ref Range | Performed | Pathologist | | | | | At | Signature | + + + + + + | Glucose, | 135 (H)Comment: Testing | 65 - 99 mg/dL | [facility] | | | POC | performed at [facility];888 | | LABORATORY | | | | [address];[place] | | | | | | [address] | | | | + + + + + + + + | Specimen | + + | | + + + + + + + | Performing | Address | City/State/Zipcode | Phone Number | | Organization | | | | + + + + + | [facility] | [address] | [place] [address] | [phone] | + + + + + POC [...] | | | POC | performed at [facility];[address] | | LABORATORY | | | | [address];[place], [place] | | | | | | [address] | | | | + + + + + + + + | Specimen | + + | | + + + + + + + | Performing | Address | City/State/Zipcode | Phone Number | | Organization | | | | + + + + + | [facility] | [address] | [place] [address] | [phone] | + + + + + POC [...] | | | POC | performed at [facility];[address] | | LABORATORY | | | | [address];[place] | | | | | | [address] | | | | + + + + + + + + | Specimen | + + | | + + + + + + + | Performing | Address | City/State/Zipcode | Phone Number | | Organization | | | | + + + + + | [facility] | [address] | [place] [address] | [phone] | + + + + + CBC [...] | | | Absolute | performed at [facility], [address] | [address]/u[address] | LABORATORY | | | | [address], | | | | | | [place] [address] | | | | + + + + + + + + | Specimen | + + | Blood | + + + + + + + | Performing | Address | City/State/Zipcode | Phone Number | | Organization | | | | + + + + + | [facility] | [address] | [place] [address] | [phone] | + + + + + Potassium (11/07/2019 6:05 AM PST) + + + + + + | Component | Value | Ref Range | Performed | Pathologist | | | | | At | Signature | + + + + + + | K | 3.5Comment: Testing | 3.5 - 4.9 | [facility] | | | | performed at [facility];888 | mmol/L | LABORATORY | | | | [address];[place] | | | | | | [address] | | | | + + + + + + + + | Specimen | + + | Blood | + + + + + + + | Performing | Address | City/State/Zipcode | Phone Number | | Organization | | | | + + + + + | [facility] | [address] | [place] [address] | [phone] | + + + + + Vancomycin, [...] | | | | | performed at [facility];[address] | | | | | | [address];[place], [place] | | | | | | [address] | | | | + + + + + + + + | Specimen | + + | Blood | + + + + + + + | Performing | Address | City/State/Zipcode | Phone Number | | Organization | | | | + + + + + | [facility] | [address] | [place] [address] | [phone] | + + + + + POC Glucose (11/06/2019 9:10 PM PST) + + + + + + | Component | Value | Ref Range | Performed | Pathologist | | | | | At | Signature | + + + + + + | Glucose, | 210 (H)Comment: Testing | 65 - 99 mg/dL | [facility] | | | POC | performed at [facility];[address] | | LABORATORY | | | | [address];[place], [place] | | | | | | [address] | | | | + + + + + + + + | Specimen | + + | | + + + + + + + | Performing | Address | City/State/Zipcode | Phone Number | | Organization | | | | + + + + + | [facility] | [address] | [place] [address] | [phone] | + + + + + POC [...] | | | POC | performed at [facility];[address] | | LABORATORY | | | | [address];[place] | | | | | | [address] | | | | + + + + + + + + | Specimen | + + | | + + + + + + + | Performing | Address | City/State/Zipcode | Phone Number | | Organization | | | | + + + + + | [facility] | [address] | [place] [address] | [phone] | + + + + + Potassium (11/06/2019 1:08 PM PST) + + + + + + | Component | Value | Ref Range | Performed | Pathologist | | | | | At | Signature | + + + + + + | K | 3.4 (L)Comment: Testing | 3.5 - 4.9 | [facility] | | | | performed at [facility];888 | mmol/L | LABORATORY | | | | [address];[place], [place] | | | | | | [address] | | | | + + + + + + + + | Specimen | + + | Blood | + + + + + + + | Performing | Address | City/State/Zipcode | Phone Number | | Organization | | | | + + + + + | [facility] | [address] | [place] [address] | [phone] | + + + + + POC Glucose (11/06/2019 11:41 AM PST) + + + + + + | Component | Value | Ref Range | Performed | Pathologist | | | | | At | Signature | + + + + + + | Glucose, | 225 (H)Comment: Testing | 65 - 99 mg/dL | [facility] | | | POC | performed at [facility];[address] | | LABORATORY | | | | [address];[place] | | | | | | [address] | | | | + + + + + + + + | Specimen | + + | | + + + + + + + | Performing | Address | City/State/Zipcode | Phone Number | | Organization | | | | + + + + + | [facility] | [address] | [place] [address] | [phone] | + + + + + POC [...] | | | POC | performed at [facility];[address] | | LABORATORY | | | | [address];[place], [place] | | | | | | [address] | | | | + + + + + + + + | Specimen | + + | | + + + + + + + | Performing | Address | City/State/Zipcode | Phone Number | | Organization | | | | + + + + + | [facility] | [address] | [place] [address] | [phone] | + + + + + Basic [...] | >60Comment: GFR <60: | >60 | [facility] | | | GFR | [...] | | | | | | MDRD IDTN traceable | | | | | | equation.Testing | | | | | | performed at [facility], [address] | | | | | | [facility], | | | | | | [place] [address] | | | | + + + + + + + + | Specimen | + + | Blood | + + + + + + + | Performing | Address | City/State/Zipcode | Phone Number | | Organization | | | | + + + + + | [facility] | [address] | [place] [address] | [phone] | + + + + + CBC [...] | | | Absolute | performed at [facility], [address] | K/u[address] | LABORATORY | | | | [address], | | | | | | [place] [address] | | | | + + + + + + + + | Specimen | + + | Blood | + + + + + + + | Performing | Address | City/State/Zipcode | Phone Number | | Organization | | | | + + + + + | [facility] | [address] | [place] [address] | [phone] | + + + + + POC [...] | | | POC | performed at [facility];[address] | | LABORATORY | | | | [address];[place] | | | | | | [address] | | | | + + + + + + + + | Specimen | + + | | + + + + + + + | Performing | Address | City/State/Zipcode | Phone Number | | Organization | | | | + + + + + | [facility] | [address] | [place] [address] | [phone] | + + + + + POC Glucose (11/05/2019 4:45 PM PST) + + + + + + | Component | Value | Ref Range | Performed | Pathologist | | | | | At | Signature | + + + + + + | Glucose, | 147 (H)Comment: Testing | 65 - 99 mg/dL | [facility] | | | POC | performed at [facility];[address] | | LABORATORY | | | | [address];[place], [place] | | | | | | [address] | | | | + + + + + + + + | Specimen | + + | | + + + + + + + | Performing | Address | City/State/Zipcode | Phone Number | | Organization | | | | + + + + + | [facility] | [address] | [place] [address] | [phone] | + + + + + POC Glucose (11/05/2019 11:32 AM PST) + + + + + + | Component | Value | Ref Range | Performed | Pathologist | | | | | At | Signature | + + + + + + | Glucose, | 87Comment: Testing | 65 - 99 mg/dL | [facility] | | | POC | performed at [facility];[address] | | LABORATORY | | | | [address];[place], [place] | | | | | | [address] | | | | + + + + + + + + | Specimen | + + | | + + + + + + + | Performing | Address | City/State/Zipcode | Phone Number | | Organization | | | | + + + + + | [facility] | [address] | [place] [address] | [phone] | + + + + + POC Glucose (11/05/2019 8:45 AM PST) + + + + + + | Component | Value | Ref Range | Performed | Pathologist | | | | | At | Signature | + + + + + + | Glucose, | 93Comment: Testing | 65 - 99 mg/dL | [facility] | | | POC | performed at [facility];[address] | | LABORATORY | | | | [address];[place], [place] | | | | | | [address] | | | | + + + + + + + + | Specimen | + + | | + + + + + + + | Performing | Address | City/State/Zipcode | Phone Number | | Organization | | | | + + + + + | [facility] | [address] | [place] [address] | [phone] | + + + + + CBC [...] | | | Absolute | performed at [facility], [address] | K/uL | LABORATORY | | | | [address], | | | | | | [place] [address] | | | | + + + + + + + + | Specimen | + + | | + + + + + + + | Performing | Address | City/State/Zipcode | Phone Number | | Organization | | | | + + + + + | [facility] | [address] | [place] [address] | [phone] | + + + + + Basic [...] | | | | | | MDRD [facility] traceable | | | | | | equation.Testing | | | | | | performed at [facility];[address] | | | | | | [facility];[place], [place] | | | | | | [address] | | | | + + + + + + + + | Specimen | + + | | + + + + + + + | Performing | Address | City/State/Zipcode | Phone Number | | Organization | | | | + + + + + | [facility] | [address] | [place] [address] | [phone] | + + + + + Vancomycin, Trough (11/05/2019 5:32 AM PST) + + + + + + | Component | Value | Ref Range | Performed | Pathologist | | | | | At | Signature | + + + + + + | Vancomycin, | 15.2Comment: 15 to 20 | 10 - 20 ug/mL | [facility] | | | Trough | [...] | | | | | performed at [facility];[address] | | | | | | [address];[place], [place] | | | | | | [address] | | | | + + + + + + + + | Specimen | + + | Blood | + + + + + + + | Performing | Address | City/State/Zipcode | Phone Number | | Organization | | | | + + + + + | [facility] | [address] | [place] [address] | [phone] | + + + + + POC [...] | | | POC | performed at [facility];[address] | | LABORATORY | | | | [address];[place] | | | | | | [address] | | | | + + + + + + + + | Specimen | + + | | + + + + + + + | Performing | Address | City/State/Zipcode | Phone Number | | Organization | | | | + + + + + | [facility] | [address] | [place] [address] | [phone] | + + + + + POC [...] | | | POC | performed at [facility];[address] | | LABORATORY | | | | [address];[place], [place] | | | | | | [address] | | | | + + + + + + + + | Specimen | + + | | + + + + + + + | Performing | Address | City/State/Zipcode | Phone Number | | Organization | | | | + + + + + | [facility] | [address] [facility] | [place] [address] | [phone] | + + + + + POC [...] | | | POC | performed at [facility];[address] | | LABORATORY | | | | [address];[place], [place] | | | | | | [address] | | | | + + + + + + + + | Specimen | + + | | + + + + + + + | Performing | Address | City/State/Zipcode | Phone Number | | Organization | | | | + + + + + | [facility] | [address] | [place] [address] | [phone] | + + + + + POC [...] | | | POC | performed at [facility];[address] | | LABORATORY | | | | [address];[place] | | | | | | [address] | | | | + + + + + + + + | Specimen | + + | | + + + + + + + | Performing | Address | City/State/Zipcode | Phone Number | | Organization | | | | + + + + + | [facility] | [address] | [place] [address] | [phone] | + + + + + CK Total (11/04/2019 6:10 AM PST) + + + + + + | Component | Value | Ref Range | Performed | Pathologist | | | | | At | Signature | + + + + + + | CK TOTAL | 94Comment: Testing | 55 - 400 U/L | [facility] | | | | performed at [facility];[address] | | LABORATORY | | | | [address];[place], [place] | | | | | | [address] | | | | + + + + + + + + | Specimen | + + | | + + + + + + + | Performing | Address | City/State/Zipcode | Phone Number | | Organization | | | | + + + + + | [facility] | [address] | [place] [address] | [phone] | + + + + + CBC [...] | | | Absolute | performed at [facility];[address] | K/u[address] | LABORATORY | | | | [address];[place] | | | | | | [address] | | | | + + + + + + + + | Specimen | + + | Blood | + + + + + + + | Performing | Address | City/State/Zipcode | Phone Number | | Organization | | | | + + + + + | [facility] | [address] [facility] [address] | [place] [address] | [phone] | + + + + + Potassium (11/04/2019 6:10 AM PST) + + + + + + | Component | Value | Ref Range | Performed | Pathologist | | | | | At | Signature | + + + + + + | K | 3.2 (L)Comment: Testing | 3.5 - 4.9 | [facility] | | | | performed at [facility];888 | mmol/L | LABORATORY | | | | [address];[place], [place] | | | | | | [address] | | | | + + + + + + + + | Specimen | + + | Blood | + + + + + + + | Performing | Address | City/State/Zipcode | Phone Number | | Organization | | | | + + + + + | [facility] | [address] | [place] [address] | [phone] | + + + + + Sedimentation Rate (11/04/2019 6:10 AM PST) + + + + + + | Component | Value | Ref Range | Performed | Pathologist | | | | | At | Signature | + + + + + + | ESR | 116 (H)Comment: Testing | 0 - 20 mm/Hr | [facility] | | | | performed at [facility];[address] | | LABORATORY | | | | [address];[place] | | | | | | [address] | | | | + + + + + + + + | Specimen | + + | Blood | + + + + + + + | Performing | Address | City/State/Zipcode | Phone Number | | Organization | | | | + + + + + | [facility] | [address] | [place] [address] | [phone] | + + + + + C-Reactive Protein (11/04/2019 6:10 AM PST) + + + + + + | Component | Value | Ref Range | Performed | Pathologist | | | | | At | Signature | + + + + + + | CRP | 12.9 (H)Comment: Testing | <0.5 mg/dL | [facility] | | | | performed at [facility];[address] | | LABORATORY | | | | [address];[place], [place] | | | | | | [address] | | | | + + + + + + + + | Specimen | + + | Blood | + + + + + + + | Performing | Address | City/State/Zipcode | Phone Number | | Organization | | | | + + + + + | [facility] | [address] | [place] [address] | [phone] | + + + + + POC [...] | | | POC | performed at [facility];[address] | | LABORATORY | | | | [address];[place] | | | | | | [address] | | | | + + + + + + + + | Specimen | + + | | + + + + + + + | Performing | Address | City/State/Zipcode | Phone Number | | Organization | | | | + + + + + | [facility] | [address] | [place] [address] | [phone] | + + + + + Vancomycin, Trough (11/03/2019 5:19 PM PST) + + + + + + | Component | Value | Ref Range | Performed | Pathologist | | | | | At | Signature | + + + + + + | Vancomycin, | 16.4Comment: 15 to 20 | 10 - 20 ug/mL | [facility] | | | Trough | [...] | | | | | performed at [facility];[address] | | | | | | [address];[place] | | | | | | [address] | | | | + + + + + + + + | Specimen | + + | Blood | + + + + + + + | Performing | Address | City/State/Zipcode | Phone Number | | Organization | | | | + + + + + | [facility] | [address] | [place] [address] | [phone] | + + + + + Potassium (11/03/2019 3:11 PM PST) + + + + + + | Component | Value | Ref Range | Performed | Pathologist | | | | | At | Signature | + + + + + + | K | 3.6Comment: Testing | 3.5 - 4.9 | [facility] | | | | performed at [facility];888 | mmol/L | LABORATORY | | | | [address];[place] | | | | | | [address] | | | | + + + + + + + + | Specimen | + + | Blood | + + + + + + + | Performing | Address | City/State/Zipcode | Phone Number | | Organization | | | | + + + + + | [facility] | [address] | [place] [address] | [phone] | + + + + + POC [...] | | | POC | performed at [facility];[address] | | LABORATORY | | | | [address];[place], [place] | | | | | | [address] | | | | + + + + + + + + | Specimen | + + | | + + + + + + + | Performing | Address | City/State/Zipcode | Phone Number | | Organization | | | | + + + + + | [facility] | [address] | [place] [address] | [phone] | + + + + + ECHO [...] | | | POC | performed at [facility];[address] | | LABORATORY | | | | [address];[place] | | | | | | [address] | | | | + + + + + + + + | Specimen | + + | | + + + + + + + | Performing | Address | City/State/Zipcode | Phone Number | | Organization | | | | + + + + + | [facility] | [address] [facility] | [place] [address] | [phone] | + + + + + C-Reactive Protein (11/03/2019 4:19 AM PST) + + + + + + | Component | Value | Ref Range | Performed | Pathologist | | | | | At | Signature | + + + + + + | CRP | 14.3 (H)Comment: Testing | <0.5 mg/dL | [facility] | | | | performed at [facility];[address] | | LABORATORY | | | | [address];[place], [place] | | | | | | [address] | | | | + + + + + + + + | Specimen | + + | Blood | + + + + + + + | Performing | Address | City/State/Zipcode | Phone Number | | Organization | | | | + + + + + | [facility] | [address] | [place] [address] | [phone] | + + + + + Sedimentation Rate (11/03/2019 4:19 AM PST) + + + + + + | Component | Value | Ref Range | Performed | Pathologist | | | | | At | Signature | + + + + + + | ESR | 118 (H)Comment: Testing | 0 - 20 mm/Hr | [facility] | | | | performed at [facility];[address] | | LABORATORY | | | | [address];[place] | | | | | | [address] | | | | + + + + + + + + | Specimen | + + | Blood | + + + + + + + | Performing | Address | City/State/Zipcode | Phone Number | | Organization | | | | + + + + + | [facility] | [address] | [place] [address] | [phone] | + + + + + CBC [...] | | | Absolute | performed at [facility];[address] | K/uL | LABORATORY | | | | [address];[place] | | | | | | [address] | | | | + + + + + + + + | Specimen | + + | Blood | + + + + + + + | Performing | Address | City/State/Zipcode | Phone Number | | Organization | | | | + + + + + | [facility] | [address] | [place] [address] | [phone] | + + + + + Comprehensive [...] | >60Comment: GFR <60: | >60 | [facility] | | | GFR | [...] | | | | | | MDRD IDTN traceable | | | | | | equation.Testing | | | | | | performed at [facility];[address] | | | | | | [facility];[place], [place] | | | | | | [address] | | | | + + + + + + + + | Specimen | + + | Blood | + + + + + + + | Performing | Address | City/State/Zipcode | Phone Number | | Organization | | | | + + + + + | [facility] | [address] | [place] [address] | [phone] | + + + + + POC Glucose (11/02/2019 8:41 PM PST) + + + + + + | Component | Value | Ref Range | Performed | Pathologist | | | | | At | Signature | + + + + + + | Glucose, | 208 (H)Comment: Testing | 65 - 99 mg/dL | [facility] | | | POC | performed at [facility];[address] | | LABORATORY | | | | [address];[place] | | | | | | [address] | | | | + + + + + + + + | Specimen | + + | | + + + + + + + | Performing | Address | City/State/Zipcode | Phone Number | | Organization | | | | + + + + + | [facility] | [address] | [place] [address] | [phone] | + + + + + POC Glucose (11/02/2019 5:10 PM PST) + + + + + + | Component | Value | Ref Range | Performed | Pathologist | | | | | At | Signature | + + + + + + | Glucose, | 254 (H)Comment: Testing | 65 - 99 mg/dL | [facility] | | | POC | performed at [facility];[address] | | LABORATORY | | | | [...] | + + + + + | [facility] | [address] | [place] [address] | [phone] | + + + + + Potassium (11/02/2019 4:43 PM PST) + + + + + + | Component | Value | Ref Range | Performed | Pathologist | | | | | At | Signature | + + + + + + | K | 3.5Comment: Testing | 3.5 - 4.9 | [facility] | | | | performed at [facility];888 | mmol/L | LABORATORY | | | | [address];[place], [place] | | | | | | [address] | | | | + + + + + + + + | Specimen | + + | Blood | + + + + + + + | Performing | Address | City/State/Zipcode | Phone Number | | Organization | | | | + + + + + | [facility] | [address] | [place] [address] | [phone] | + + + + + POC [...] | | | POC | performed at [facility];[address] | | LABORATORY | | | | [address];[place] | | | | | | [address] | | | | + + + + + + + + | Specimen | + + | | + + + + + + + | Performing | Address | City/State/Zipcode | Phone Number | | Organization | | | | + + + + + | [facility] | [address] | [place] [address] | [phone] | + + + + + POC Glucose (11/02/2019 7:39 AM PST) + + + + + + | Component | Value | Ref Range | Performed | Pathologist | | | | | At | Signature | + + + + + + | Glucose, | 180 (H)Comment: Testing | 65 - 99 mg/dL | [facility] | | | POC | performed at [facility];[address] | LABORATORY | | | | [address];[place], [place] | | | | | | [address] | | | | + + + + + + + + | Specimen | + + | | + + + + + + + | Performing | Address | City/State/Zipcode | Phone Number | | Organization | | | | + + + + + | [facility] | [address] | [place] [address] | [phone] | + + + + + HIV 1 and 2 Ab, Reflex (11/02/2019 4:38 AM PST) + + + + + + | Component | Value | Ref Range | Performed | Pathologist | | | | | At | Signature | + + + + + + | HIV 1 and 2 | NON REACTIVEComment: THE | NR | [facility] | | | Ab | NON REACTIVE HIV 1/2 | | LABORATORY | | | | RESULT INDICATES THAT | | | | | | NEITHER ANTIBODIES NOR | | | | | | [id number] TO HIV 1/2 | | | | | | HAVE BEEN DETECTED IN | | | | | | THIS SPECIMEN. THIS | | | | | | RESULT DOES NOTPRECLUDE | | | | | | PREVIOUS EXPOSURE OR | | | | | | INFECTION.Testing | | | | | | performed at [facility], [address] | | | | | [facility], | | | | | | [place] [address] | | | | + + + + + + + + | Specimen | + + | | + + + + + + + | Performing | Address | City/State/Zipcode | Phone Number | | Organization | | | | + + + + + | [facility] | [address] | [place] [address] | [phone] | + + + + + CBC [...] at | | | | | | [facility], [address] [place] [address] | | | | | | [facility], [place] | | | | | | [address] | | | | + + + + + + + + | Specimen | + + | Blood | + + + + + + + | Performing | Address | City/State/Zipcode | Phone Number | | Organization | | | | + + + + + | [facility] | [address] | [place] [address] | [phone] | + + + + + Hepatitis C Ab (11/02/2019 4:38 AM PST) + + + + + + | Component | Value | Ref Range | Performed | Pathologist | | | | | At | Signature | + + + + + + | HCV Ab | NON REACTIVEComment: | NR | [facility] | | | | Absence [...] | | | | performed at [facility], [address] | | | | | [facility], | | | | | | [place] [address] | | | | + + + + + + + + | Specimen | + + | Blood | + + + + + + + | Performing | Address | City/State/Zipcode | Phone Number | | Organization | | | | + + + + + | [facility] | [address] | [place] [address] | [phone] | + + + + + Hepatitis [...] [address] | | | | | | [place] | | | | | | [address] | | | | + + + + + + + + | Specimen | + + | Blood | + + + + + + + | Performing | Address | City/State/Zipcode | Phone Number | | Organization | | | | + + + + + | [facility] | [address] | [place] [address] | [phone] | + + + + + Hepatitis B Surface Ag (11/02/2019 4:38 AM PST) + + + + + + | Component | Value | Ref Range | Performed | Pathologist | | | | | At | Signature | + + + + + + | Hepatitis B | NON REACTIVEComment: | NR | [facility] | | | Surface Ag | Testing performed at | | LABORATORY | | | | [address], [address] | | | | | | [place] | | | | | | [address] | | | | + + + + + + + + | Specimen | + + | Blood | + + + + + + + | Performing | Address | City/State/Zipcode | Phone Number | | Organization | | | | + + + + + | [facility] | [address] | [place] [address] | [phone] | + + + + + Hepatitis [...] | | | | performed at [facility], [address] | | | | | | [facility], | | | | | | [place] [address] | | | | + + + + + + + + | Specimen | + + | Blood | + + + + + + + | Performing | Address | City/State/Zipcode | Phone Number | | Organization | | | | + + + + + | [facility] | [address] | [place] [address] | [phone] | + + + + + Magnesium (11/02/2019 4:38 AM PST) + + + + + + | Component | Value | Ref Range | Performed | Pathologist | | | | | At | Signature | + + + + + + | Magnesium | 1.9Comment: Testing | 1.7 - 2.4 mg/dL | [facility] | | | | performed at [facility], [address] | | LABORATORY | | | | [address] [place], | | | | | | [place] [address] | | | | + + + + + + + + | Specimen | + + | Blood | + + + + + + + | Performing | Address | City/State/Zipcode | Phone Number | | Organization | | | | + + + + + | [facility] | [address] | [place] [address] | [phone] | + + + + + Vancomycin, Trough (11/02/2019 4:38 AM PST) + + + + + + | Component | Value | Ref Range | Performed | Pathologist | | | | | At | Signature | + + + + + + | Vancomycin, | 19.7Comment: 15 to 20 | 10 - 20 ug/mL | [facility] | | | Trough | [...] | | | | | performed at [facility];[address];[place], [place] | | | | | | [address] | | | | + + + + + + + + | Specimen | + + | Blood | + + + + + + + | Performing | Address | City/State/Zipcode | Phone Number | | Organization | | | | + + + + + | [facility] | [address] | [place] [address] | [phone] | + + + + + Comprehensive [...] | | | | | performed at [facility] | | | | | | [facility];[place], [place] | | | | | | [address] | | | | + + + + + + + + | Specimen | + + | Blood | + + + + + + + | Performing | Address | City/State/Zipcode | Phone Number | | Organization | | | | + + + + + | [facility] | [address] | [place] [address] | [phone] | + + + + + LABS [...] | | | POC | performed at [facility];[address] | | LABORATORY | | | | [address];[place], [place] | | | | | | [address] | | | | + + + + + + + + | Specimen | + + | | + + + + + + + | Performing | Address | City/State/Zipcode | Phone Number | | Organization | | | | + + + + + | [facility] | [address] | [place] [address] | [phone] | + + + + + Potassium (11/01/2019 7:59 PM PST) + + + + + + | Component | Value | Ref Range | Performed | Pathologist | | | | | At | Signature | + + + + + + | K | 3.5Comment: Testing | 3.5 - 4.9 | [facility] | | | | performed at [facility];[address] | mmol/L | LABORATORY | | | | [address];[place] | | | | | | [address] | | | | + + + + + + + + | Specimen | + + | Blood | + + + + + + + | Performing | Address | City/State/Zipcode | Phone Number | | Organization | | | | + + + + + | [facility] | [address] | [place] [address] | [phone] | + + + + + POC [...] | | | POC | performed at [facility];[address] | | LABORATORY | | | | [address];[place], [place] | | | | | | [address] | | | | + + + + + + + + | Specimen | + + | | + + + + + + + | Performing | Address | City/State/Zipcode | Phone Number | | Organization | | | | + + + + + | [facility] | [address] | [place] [address] | [phone] | + + + + + POC [...] | | | POC | performed at [facility];[address] | | LABORATORY | | | | [address];[place] | | | | | | [address] | | | | + + + + + + + + | Specimen | + + | | + + + + + + + | Performing | Address | City/State/Zipcode | Phone Number | | Organization | | | | + + + + + | [facility] | [address] | [place] [address] | [phone] | + + + + + POC [...] | | | POC | performed at [facility];[address] | | LABORATORY | | | | [address];[place], [place] | | | | | | [address] | | | | + + + + + + + + | Specimen | + + | | + + + + + + + | Performing | Address | City/State/Zipcode | Phone Number | | Organization | | | | + + + + + | [facility] | [address] | [place] [address] | [phone] | + + + + + CK Total (11/01/2019 4:05 AM PST) + + + + + + | Component | Value | Ref Range | Performed | Pathologist | | | | | At | Signature | + + + + + + | CK TOTAL | 188Comment: Testing | 55 - 400 U/L | [facility] | | | | performed at [facility];[address] | | LABORATORY | | | | [address];[place] | | | | | | [address] | | | | + + + + + + + + | Specimen | + + | Blood | + + + + + + + | Performing | Address | City/State/Zipcode | Phone Number | | Organization | | | | + + + + + | [facility] | [address] | [place] [address] | [phone] | + + + + + Magnesium (11/01/2019 4:05 AM PST) + + + + + + | Component | Value | Ref Range | Performed | Pathologist | | | | | At | Signature | + + + + + + | Magnesium | 1.3 (L)Comment: Testing | 1.7 - 2.4 mg/dL | [facility] | | | | performed at [facility];[address] | | LABORATORY | | | | [address];[place], [place] | | | | | | [address] | | | | + + + + + + + + | Specimen | + + | Blood | + + + + + + + | Performing | Address | City/State/Zipcode | Phone Number | | Organization | | | | + + + + + | [facility] | [address] | [place] [address] | [phone] | + + + + + CBC [...] at | | | | | | [facility];[address] [place] [address] | | | | | | [facility];[place] [address] | | | | + + + + + + + + | Specimen | + + | Blood | + + + + + + + | Performing | Address | City/State/Zipcode | Phone Number | | Organization | | | | + + + + + | [facility] | [address] | [place] [address] | [phone] | + + + + + Comprehensive [...] 57 (L)Comment: GFR <60: | >60 | [facility] | | | GFR | [...] | | | | | performed at [facility] | | | | | | [facility];[place], [place] | | | | | | [address] | | | | + + + + + + + + | Specimen | + + | Blood | + + + + + + + | Performing | Address | City/State/Zipcode | Phone Number | | Organization | | | | + + + + + | [facility] | [address] | [place] [address] | [phone] | + + + + + POC [...] | | | POC | performed at [facility];[address] | | LABORATORY | | | | [address];[place] | | | | | | [address] | | | | + + + + + + + + | Specimen | + + | | + + + + + + + | Performing | Address | City/State/Zipcode | Phone Number | | Organization | | | | + + + + + | [facility] | [address] | [place] [address] | [phone] | + + + + + MRI [...] | | | POC | performed at [facility];[address] | | LABORATORY | | | | [address];[place] | | | | | | [address] | | | | + + + + + + + + | Specimen | + + | | + + + + + + + | Performing | Address | City/State/Zipcode | Phone Number | | Organization | | | | + + + + + | [facility] | [address] | [place] [address] | [phone] | + + + + + Drugs Of Abuse Screen, Urine (H) (10/31/2019 5:46 PM PST) + + + + + + | Component | Value | Ref Range | Performed | Pathologist | | | | | At | Signature | + + + + + + | Amp/Methamp | POSITIVE (A)Comment: | NEG | [facility] | | | hetamine, | Positive cutoff for AMP | | LABORATORY | | | Screen, | = 1000 ng/mL | | | | | Urine | | | | | + + + + + + | Barbiturate | NEGATIVEComment: | NEG | [facility] | | | s Screen, | Positive [...] | | | | | performed at [facility];[address] | | | | | | [facility];[place], [place] | | | | | | [address] | | | | + + + + + + + + | Specimen | + + | | + + + + + + + | Performing | Address | City/State/Zipcode | Phone Number | | Organization | | | | + + + + + | [facility] | [address] | [place] [address] | [phone] | + + + + + Sodium, Urine, Random (10/31/2019 5:46 PM PST) + + + + + + | Component | Value | Ref Range | Performed | Pathologist | | | | | At | Signature | + + + + + + | Sodium, | 24Comment: NO NORMAL | mmol/L | [facility] | | | Random | RANGE ESTABLISHEDTesting | | LABORATORY | | | urine | performed at [facility], [address] | | | | [address] [facility], | | | | | | [place] [address] | | | | + + + [...] | + + + + + | [facility] | [address] | [place] [address] | [phone] | + + + + + MRSA [...] LABORATORY | | | | performed at [facility];[address] | | | | | | [address];[place] | | | | | | [address] | | | | + + + + + + + + | Specimen | + + | Tissue - Both | | anterior nares (body | | structure) | + + + + + + + | Performing | Address | City/State/Zipcode | Phone Number | | Organization | | | | + + + + + | [facility] | [address] | [place] [address] | [phone] | + + + + + Respiratory [...] | | | | performed at [facility], [address] | | | | | | [facility], | | | | | | [place] [address] | | | | + + + + + + + + | Specimen | + + | Tissue - Entire | | nasopharynx (body | | structure) | + + + + + + + | Performing | Address | City/State/Zipcode | Phone Number | | Organization | | | | + + + + + | [facility] | [address] | [place] [address] | [phone] | + + + + + Culture, [...] | | LABORATORY | | | | Blvd;[place] [address] | | | | + + + + + + | RESULT | NO GROWTH 6 DAYS | | [facility] | | | | | | LABORATORY | | + + + + + + | RESULT | Testing performed at | | [facility] | | | | [facility], [address] | | LABORATORY | | | | [place] | | | | | | [address]lu: Testing | | | | | | performed at [facility], [address] | | | | | | [address], [place], [place] | | | | | | [address] | | | | + + + + + + + + | Specimen | + + | Blood - Peripheral | | blood specimen | | (specimen) | + + + + + + + | Performing | Address | City/State/Zipcode | Phone Number | | Organization | | | | + + + + + | [facility] | [address] | [place] [address] | [phone] | + + + + + Culture, [...] Special | Testing performed at | | [facility] | | | Requests | [facility];[address] | | LABORATORY | | | | [address];[place] [address] | | | | + + + + + + | RESULT | NO GROWTH 6 DAYS | | [facility] | | | | | | LABORATORY | | + + + + + + | RESULT | Testing performed at | | [facility] | | | | [facility], [address] [facility] | | LABORATORY | | | | [place], [place] | | | | | | [address]Lkrevdr: Testing | | | | | | performed at [facility], [address] | | | | | | [address], [place] | | | | | | [address] | | | | + + + + + + + + | Specimen | + + | Blood - Peripheral | | blood specimen | | (specimen) | + + + + + + + | Performing | Address | City/State/Zipcode | Phone Number | | Organization | | | | + + + + + | [facility] | [address] | [place] [address] | [phone] | + + + + + Lactic Acid (10/31/2019 5:36 PM PST) + + + + + + | Component | Value | Ref Range | Performed | Pathologist | | | | | At | Signature | + + + + + + | Lactate, | 1.5Comment: Testing | 0.4 - 2.0 | [facility] | | | Serum | performed at [facility];[address] | mmol/L | LABORATORY | | | | [address];[place], [place] | | | | | | [address] | | | | + + + + + + + + | Specimen | + + | Blood | + + + + + + + | Performing | Address | City/State/Zipcode | Phone Number | | Organization | | | | + + + + + | [facility] | [address] | [place] [address] | [phone] | + + + + + Vitamin [...] [facility] | | | | performed at [facility], [address] | | LABORATORY | | [...] | + + + + + | [facility] | [address] | [place] [address] | [phone] | + + + + + Ferritin (10/31/2019 5:09 PM PST) + + + + + + | Component | Value | Ref Range | Performed | Pathologist | | | | | At | Signature | + + + + + + | Ferritin | 76Comment: Testing | 11 - 450 ng/mL | [facility] | | | | performed at [facility], [address] | | LABORATORY | | | | [address], | | | | | | [place] [address] | | | | + + + + + + + + | Specimen | + + | Blood | + + + + + + + | Performing | Address | City/State/Zipcode | Phone Number | | Organization | | | | + + + + + | [facility] | [address] | [place] [address] | [phone] | + + + + + Iron, Total (10/31/2019 5:09 PM PST) + + + + + + | Component | Value | Ref Range | Performed | Pathologist | | | | | At | Signature | + + + + + + | Iron | 10 (L)Comment: Testing | 45 - 190 ug/dL | [facility] | | | | performed at [facility], [address] | | LABORATORY | | | | [address], | | | | | | [place] [address] | | | | + + + + + + + + | Specimen | + + | Blood | + + + + + + + | Performing | Address | City/State/Zipcode | Phone Number | | Organization | | | | + + + + + | [facility] | [address] | [place] [address] | [phone] | + + + + + Vancomycin Level (10/31/2019 5:09 PM PST) + + + + + + | Component | Value | Ref Range | Performed | Pathologist | | | | | At | Signature | + + + + + + | Vancomycin | 12.2Comment: Testing | ug/mL | [facility] | | | Random, | performed at [facility];[address] | | LABORATORY | | | Serum | [address];[place] | | | | | | [address] | | | | + + + + + + + + | Specimen | + + | | + + + + + + + | Performing | Address | City/State/Zipcode | Phone Number | | Organization | | | | + + + + + | [facility] | [address] | [place] [address] | [phone] | + + + + + Magnesium (10/31/2019 5:09 PM PST) + + + + + + | Component | Value | Ref Range | Performed | Pathologist | | | | | At | Signature | + + + + + + | Magnesium | 1.1 (L)Comment: Testing | 1.7 - 2.4 mg/dL | [facility] | | | | performed at [facility];[address] | | LABORATORY | | | | [address];[place], [place] | | | | | | [address] | | | | + + + + + + + + | Specimen | + + | | + + + + + + + | Performing | Address | City/State/Zipcode | Phone Number | | Organization | | | | + + + + + | [facility] | [address] | [place] [address] | [phone] | + + + + + Sedimentation Rate (10/31/2019 5:09 PM PST) + + + + + + | Component | Value | Ref Range | Performed | Pathologist | | | | | At | Signature | + + + + + + | ESR | 58 (H)Comment: Testing | 0 - 20 mm/Hr | [facility] | | | | performed at [facility] | | LABORATORY | | | | [facility];[place], [place] | | | | | | [address] | | | | + + + + + + + + | Specimen | + + | | + + + + + + + | Performing | Address | City/State/Zipcode | Phone Number | | Organization | | | | + + + + + | [facility] | [address] | [place] [address] | [phone] | + + + + + CBC [...] [facility] | | | | performed at [facility];[address] | | LABORATORY | | | | [address];[place] | | | | | | [address] | | | | + + + + + + + + | Specimen | + + | Blood | + + + + + + + | Performing | Address | City/State/Zipcode | Phone Number | | Organization | | | | + + + + + | [facility] | [address] | [place] [address] | [phone] | + + + + + C-Reactive Protein (10/31/2019 5:09 PM PST) + + + + + + | Component | Value | Ref Range | Performed | Pathologist | | | | | At | Signature | + + + + + + | CRP | 21.4 (H)Comment: Testing | <0.5 mg/dL | [facility] | | | | performed at [facility];[address] | | LABORATORY | | | | [address];[place] | | | | | | [address] | | | | + + + + + + + + | Specimen | + + | Blood | + + + + + + + | Performing | Address | City/State/Zipcode | Phone Number | | Organization | | | | + + + + + | [facility] | [address] | [place] [address] | [phone] | + + + + + documented [...] PST | | | | | on [facility] 10/31/19 at 1715 | | | [...] CONTINUOUS PRN, hypoglycemia, | | | Starting [facility] 10/31/19 at 1721, | | | [...] | | | | | | | 6470-6133 Use NIGHT DOSE for | | | | | | | doses scheduled: HS, 3AM, | | | | | | | Nighttime 9771-1717 If the BG is | | | [...] | | | | | modification) on 11/12/19 at | | | | | | [...] | | | | | modification) on [facility] 11/14/19 at | | | | [...]
--- OUTSIDE RECORDS SUMMARY | ~2020-05-14 | XMS | Encounter Summary ---
Demographics + + + | Address | [address] | | | [place] [address] | + + + | Home Phone [...] Team Providers + +------+ + | Care Gallery Or Museum Curator Name | Role | Phone | + +------+ + | Etsrella Light PA-C | PCP | | + +------+ + Encounter Details +--------+ + + + + | Date | Type | Department | Care Team | Description | +--------+ + + + + | 09/04/ | Abstract | [facility] | Avi Forde MD | | | 2014 | | GASTROENTEROLOGY | [address] [place] | | | | | [address] [place] | [address] [place] | | | | | [address] [place], [place] | [address] | | | | | [address] | | | | | | [phone] | | | +--------+ + + + [...]
--- OUTSIDE RECORDS SUMMARY | ~2020-05-14 | XMS | Clinical Summary ---
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 | + + + +---+ | [...] | + + + + + | Med Mgmt: HBA1C | | 11/12/19 | | | | 0 | 20, | | | | | 01/15/20 | | | | | 18, | | | | | 12/16/19 | | | | | 17 | | + + + + + | Medication | | 11/27/19 | | | Management | 0 | 20 | | + + + + + | Vaccine: Influenza | | 08/18/20 | | | (#1) | 0 | 05, | | | | | 07/24/20 | | | | | 02, | | | | | 08/09/20 | | | | | 01 | | + + + + + | Med Mgmt: Cr | | 11/27/19 | | | | 1 | 20, | | | | | 11/26/19 | | | | | 20, | | | | | 11/25/19 | | | | | 20, | | | | | Addition | | | | | al | | | | | history | | | | | exists | | + + + + + | Med Mgmt: K | | 11/27/19 | | | | 1 | 20, | | | | | 11/26/19 | | | | | 20, | | | | | 11/23/19 | | | | | 20, | | | | | Addition | | | | | al | | | | | history | | | | | exists | | + + + + + | Vaccine: | | 09/20/20 | | | Dtap/Tdap/Td (2 - | 7 | 17 | | | Td) | | | | + + + + + | Hepatitis C | Completed | 11/02/19 | | | Screening | | 20 | | + + + + + [...] | | + + + + + Insurance + +--------+ [...] | [employer] | MODA | [id number] | | [phone] | | Medica | | MEDICAID HMO | HEALTH | | 019-Pr | 1 | | id | | | MDCD | | esent | | | | | | HMO [place] | | | | | | + +--------+ +--------+ +---------+--------+ | [employer] | IHS | [id number] | | | | Indemn | | SERVICE | YELLOW | | 020-Pr | | | ity | | | HAWK | | esent | | | | + +--------+ +--------+ +---------+--------+ | [employer] | MODA | [id number] | 10/02/19 | [phone] | | Medica [...] Person | Self | [birth year] | [address] | | | al/Fam | | 1964 | [phone] | [place], [place] | | | vikas | | | 1 (Home) | [address] | + +--------+ +--------+ + + | Kuldip Andrews | Person | Self | [birth year] | | [address] | | | al/Fam | | 1964 | [phone] | [place], [place] | | | vikas | | | 1 (Home) | [address] | + +--------+ +--------+ + + Advance Directives + + + + + | Type | Date Recorded | Patient | Explanation | | | | Household Chores | | + + + + + | Power of | | | | | [employer] | | | | + + + [...]
[~2020-05-14 19:50] MED LIST changes: +FERROUS SULFAT325 MG PO; +OMEPRAZOLE20 MG PO
--- OUTSIDE RECORDS SUMMARY | 2020-05-14 19:52 | XMS ---
PreManage Notification: JO ANN MC Security Collections Technician Events 4 event(s) in the past 18 months Most recent security events: Elopement at [facility] 02/29/2020 14:47 - Other Details: PATIENT LEFT AMA. Elopement at [facility] 10/30/2019 18:49 - Other Details: PATIENT LWBS Elopement at [facility] 09/25/2019 03:51 - Other Details: PATIENT LEFT AMA. IRIS CREATED. POLICE CONTACTED. CRITERIA MET - Group Notification - History of Sepsis Dx CARE PROVIDERS KIRSTEN OCONNELL Physician [employer]: Surgical 06/12/2018-Current PHONE: Unknown JUDY GUTIÉRREZ 04/01/2019-Current PHONE: Unknown Name [facility] 10/11/2019-Current PHONE: [phone] Kika has no Care Guidelines for this patient. Care History Medical/Surgical 10/07/2019 [facility] - [facility] CONTACTED UNDERGROUND SUPERVISOR PHILIP AT [facility]- REQUESTED RECENT ED RECORDS TO REQUEST AN ENT REFERRAL FOR PATIENT. - [facility] SENT OVER REQUESTED RECORDS FOR ENT REFERRAL REQUEST. - PHILIP UNDERGROUND SUPERVISOR WILL CONTACT PATIENT FOR FURTHER FOLLOW UP. 06/12/2018 [facility] - Patient is currently working with Charlotte LILLYclinical nurse educator at [facility] contact if patient is seen in the ED. - Patient has a long history of diabetes but refuses to refill insulin. - Patient refuses to follow up with podiatry which has been requested several times by the PCP and Charlotte LILLYclinical nurse educator at [facility]. - Patient refuses to follow up with [...] judgement. E.D. VISIT COUNT (12 MO.) 1 [facility] TOTAL 14 NOTE: Visits indicate total known visits. ED/UCC VISIT TRACKING (12 MO.) 05/14/2020 19:50 [facility] TYPE: Emergency COMPLAINT: - CHEST PAIN 03/27/2020 14:31 [facility] TYPE: Emergency COMPLAINT: - BLACK STOOL DIAGNOSES: - Anemia, unspecified - Melena - Essential (primary) hypertension - Type 2 diabetes mellitus without complications - Allergy status to penicillin 02/29/2020 14:47 [facility] TYPE: Emergency COMPLAINT: - DEHYDRATION DIAGNOSES: - Elevated white blood cell count, unspecified - Other remote computer terminal operator (current) drug therapy - Allergy status to penicillin - Dehydration - Type 2 diabetes mellitus without complications - Weakness - Acute kidney failure, unspecified - Essential (primary) hypertension 10/31/2019 06:54 [facility] TYPE: Emergency COMPLAINT: - BACK PAIN DIAGNOSES: - Type 2 diabetes mellitus without complications - Cervicalgia - Allergy status to penicillin - Essential (primary) hypertension - Other infective spondylopathies, cervical region 10/30/2019 18:49 [facility] Aguilar TYPE: Emergency COMPLAINT: - HIP AND NECK PAIN,LEFT WITHOUT BEING SEEN DIAGNOSES: - Procedure and treatment not carried out due to patient leavin 10/13/2019 11:55 [facility]: Emergency DIAGNOSES: - Headache - [...] Allergy status to penicillin - Epistaxis - remote computer terminal operator (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 of aspirin - Essential (primary) hypertension 10/09/2019 17:48 [facility] TYPE: Emergency COMPLAINT: - NOSE BLEED DIAGNOSES: - Type 2 diabetes mellitus without complications - Essential (primary) hypertension - remote computer terminal operator (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 of aspirin - Allergy status to penicillin - Epistaxis 10/08/2019 17:02 [facility] TYPE: Emergency COMPLAINT: - NOSE BLEED DIAGNOSES: - Type 2 diabetes mellitus without complications - remote computer terminal operator (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 of aspirin - Epistaxis - Allergy status to penicillin - Personal history of nicotine dependence - Essential (primary) hypertension 10/05/2019 20:49 [facility] [place] TYPE: Emergency COMPLAINT: - NOSE BLEED DIAGNOSES: - Epistaxis - Personal history of nicotine dependence - remote computer terminal operator (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 of aspirin - Essential (primary) [...] Emergency COMPLAINT: - MEDICAL CLEARANCE DIAGNOSES: - custodial (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 - Type 2 diabetes mellitus without complications - Personal history of nicotine dependence - Encounter for observation for other suspected diseases and co - Allergy status to penicillin - Encounter for general adult medical examination without abnor - Essential (primary) hypertension - Other remote computer terminal operator (current) drug therapy 08/11/2019 16:16 [facility] [place] TYPE: Emergency COMPLAINT: - URINE PROBLEM DIAGNOSES: - Type 2 diabetes mellitus without complications - Hematuria, unspecified - Personal history of nicotine dependence - Other residential (current) drug therapy - Allergy status to penicillin - Essential (primary) hypertension - custodial (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 INPATIENT VISIT TRACKING (12 MO.) 10/31/2019 16:33 [facility] DIAGNOSES: - Non-pressure chronic ulcer of unspecified part of left lower - Encephalopathy, unspecified - Allergy status to penicillin - Acquired absence of left leg below knee - Cervicalgia - Bacteremia - 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
--- NOTE | 2020-05-16 17:22 | EKG ---
[facility] [address] [facility] [place], [place] [address] Signed Normal sinus rhythm Normal ECG When compared with ECG of 29-FEB-2020 14:54, No significant change was found Confirmed by MICHELLE BE DO ([id number]) on 05/16/2020 5:21:54 PM Electronically Signed By: MICHELLE BE DO 05/16/20 1722 PATIENT NAME: JO ANN MC NUNO Electrocardiogram DATE OF : 69 PHYSICIAN: MICHELLE BE DO REPORT #: [id number] REPORT IS CONFIDENTIAL AND NOT TO BE RELEASED WITHOUT AUTHORIZATION
== END 2020-05-14 22:58 | disposition home or self-care (01) ==
LOC: ED 19:50
DX: R07.89 Other chest pain (principal); E11.9 Type 2 diabetes mellitus without complications; I10 Essential (primary) hypertension; Z88.0 Allergy status to penicillin; Z79.899 Other long term (current) drug therapy
CPT/HCPCS: 71045; 80053; 83735; 84484; 85025; 93005; 93010; 96365; 99285-25; J3475

== ENCOUNTER 2020-06-16 19:05 | Emergency (ER) | payer OTHER ==
--- OUTSIDE RECORDS SUMMARY | ~2020-06-16 | XMS | Encounter Summary ---
Demographics + + + | Address | [address] | | | [place] [address] | + + + | Home Phone | | + + + | Preferred Language | Unknown | + + + | Marital Status | Single | + + + | Anabaptist Affiliation | 1077 | + + + | Race | or | + + + | Ethnic Group | Not or | + + + Author + + + | Author | [facility] | | | and [place] | + + + | Organization | [facility] | | [...] Team Providers + +------+ + | Care Health Promotion Officer Name | Role | Phone | + +------+ + | Estrella Light PA-C | PCP | | + +------+ + Encounter Details +--------+ + + + + | Date | Type | Department | Care Team | Description | +--------+ + + + + | 09/04/ | Abstract | [facility] [place] | Avi Forde MD | | | 2014 | | GASTROENTEROLOGY | [address], [place] | | | | | [address] [facility] | [address] [place] [address] | | | | | [address] [place], [place] | [address] | | | | | [address] | | | | | | [phone] | | | +--------+ + + + + Social History + +-------+ +--------+------+ | Tobacco Use | Types | Packs/Day | Years | Date | | | | | Used | | + +-------+ +--------+------+ | Former Smoker | | | | | + +-------+ +--------+------+ + +---+---+---+ | Smokeless Tobacco: | | | | | Current User | | | | + +---+---+---+ + + +---------+ + | Alcohol Use | Drinks/Week | oz/Week | Comments | + + +---------+ + | Not Asked | 0 Standard drinks | 0.0 | | | | or equivalent | | | + + +---------+ + + + + | Sex Assigned at | Date Recorded | | | | + + + | Not on file | | + + + documented as of this encounter Last Filed Vital Signs + + + + + | Vital Sign | Reading | Time Taken | Comments | + + + + + | Blood Pressure | 150/95 | 03/30/2015 11:08 AM | | | | | PDT | | + + + + + | Pulse | 101 | 03/30/2015 11:08 AM | | | | | PDT | | + + + + + | Temperature | 36.3 C (97.4 F) | 03/30/2015 11:08 AM | | | | | PDT | | + + + + + | Respiratory Rate | 18 | 03/30/2015 11:08 AM | | | | | PDT | | + + + + + | Oxygen Saturation | 97% | 03/30/2015 11:08 AM | | | | | PDT | | + + + + + | Inhaled Oxygen | - | - | | | Concentration | | | | + + + + + | Weight | 79.4 kg (175 lb) | 03/30/2015 11:08 AM | | | | | PDT | | + + + + + | Height | 177.8 cm (5' 10") | 03/30/2015 11:08 AM | | | | | PDT | | + + + + + | Body Mass Index | 25.11 | 03/30/2015 11:08 AM | | | | | PDT | | + + + + + documented in this encounter Plan of Treatment Not on filedocumented as of this encounter Visit Diagnoses Not on filedocumented in this encounter
--- OUTSIDE RECORDS SUMMARY | ~2020-06-16 | XMS | Encounter Summary ---
Demographics + + + | Address | [address] | | | [place] [address] | + + + | Home Phone | | + + + | Preferred Language | Unknown | + + + | Marital Status | Single | + + + | Zoroastrian Affiliation | 1077 | + + + | Race | or | + + + | Ethnic Group | Not or | + + + Author + + + | Author | [facility] | | | and [place] | + + + | Organization | [facility] | | | and [...] Team Providers + +------+ + | Care Material Requirements Worker Name | Role | Phone | + [...] | Specialty | Gastroenterol | Diagnoses | [place], | [place], | | | Services | ogy | Chronic | Avi Castro MD | Avi Castro MD | | | Required | | diarrhea | [address], | | | | | IgG Gliadin | [place], [place] | [place] [address] | | | | | antibody | [address] [place] | [place], | | | | | positive | [place], [place] | [place] [address] | | | | | Alcohol | [address] | Phone: | | | | | abuse | Phone: | [phone] | | | | | Procedures | [phone] | Fax: | | | | | [place] | Fax: | [phone] | | | | | COLONOSCOPY | [phone] | | | | | | FLX DX | | | | | | | W/COLLJ SPEC | | | | | | | WHEN PFRMD | | | | | | | [place] | | | | | | | COLONOSCOPY | | | | | | | W/BIOPSY | | | | | | | SINGLE/MULTI | | | | | | | PLE [place] | | | | | | | COLSC FLX | | | | | | | W/RMVL OF | | | | | | | TUMOR POLYP | | | | | | | LESION SNARE | | | | | | | TQ [place] | | | | | | | ANESTH,INTES | | | | | | | MILKA,SCOPE,L | | | | | | | OW | | | +--------+ + + + + + Reason for Visit + +--------+ + | Reason | Onset | Comments | | | Date | | + +--------+ + | Appointment | 09/03/ | procedure | | | 2014 | | + +--------+ + Encounter Details +--------+ + + + + | Date | Type | Department | Care Team | Description | +--------+ + + + + | 09/03/ | Telephone | [facility] [place] | Avi Forde MD | Appointment | | 2014 | | GASTROENTEROLOGY | [address], [place] | (procedure ) | | | | [address] [place] | [address] [place], [place] | | | | | [address] [place], [place] | [address] | | | | | [address] | | | | | | [phone] | | | +--------+ + + + [...] this encounter Miscellaneous Notes Telephone Encounter - Chantell Srivastava RN - 09/04/2015 8:19 AM PSTNo call back from p atient or to change dates so proceeding with previously scheduled date and time of 09/02 11/16 at 1100 for propofol colon screening; Referral completed; Orders filled and OR booking; Notes to Erick. TTelephone Encounter - Chantell Srivastava RN - 09/03/2015 12:08 PM PSTSpoke with Pt's donya castro; we scheduled pt for procedure on 09/22/[address] Forde; reviewed medications; p t is insulin DM and will do half dose meds day before procedure and not am DM meds day of pr ocedure but will bring with him; reviewed allergies; surg hx; reviewed bowel prep instructio ns; rx to [facility]; She would like to check with Kuldip when he wakes up to see if t his time works for him, if it does not she will call back; if no call by 5pm today I will co ntinue with orders and mail information to pt; documented in this encounter Plan of Treatment + + [...] Gliadin antibody | 09/22/2015, Expires: | | (afshanisis) | | | positive Alcohol | 09/03/2016 [...]
--- OUTSIDE RECORDS SUMMARY | ~2020-06-16 | XMS | Encounter Summary ---
Demographics + + + | Address | [address] | | | [place] [address] | + + + | Home Phone | | + + + | Preferred Language | Unknown | + + + | Marital Status | Single | + + + | Muslim Affiliation | 1077 | + + + | Race | or | + + + | Ethnic Group | Not or | + + + Author + + + | Author | [facility] | | | and [place] | + + + | Organization | [facility] | | [...] Team Providers + +------+ + | Care Clinic Administrator Name | Role | Phone | + +------+ + PCP | Unavailable | + +------+ + Encounter Details +--------+ + + + + | Date | Type | Department | Care Team | Description | +--------+ + + + + | 07/19/ | Hospital | [facility] | | | | 1992 | Encounter | [facility] | | | | | | [address] | | | | | | [place] | | | | | | [address] | | | | | | [phone] | | | +--------+ + + + [...]
--- OUTSIDE RECORDS SUMMARY | ~2020-06-16 | XMS | Encounter Summary ---
Demographics + + + | Address | [address] | | | [place] [address] | + + + | Home Phone [...] + + + | Author | [facility] | | | and [place] | + + + | Organization | [facility] | | [...] Team Providers + +------+ + | Care Cementing Bulk Material Operator Name | Role | Phone | + +------+ + | Estrella Light PA-C | PCP | | + +------+ + Encounter Details +--------+---------+ + + + | Date | Type | Department | Care Team | Description | +--------+---------+ + + + | 04/12/ | Surgery | [facility] | Avi Forde MD | EGD / COLONOSCOPY - | | 2015 | | [facility] | [address], [place] | DM (insulin) | | | | [address] | [address] [place], [place] | | | | | [place], [place] | [id number] | | | | | [address] | | | | | | [phone] | | | +--------+---------+ + + + [...]
--- OUTSIDE RECORDS SUMMARY | ~2020-06-16 | XMS | Encounter Summary ---
Demographics + + + | Address | [address] | | | [place] [address] | + + + | Home Phone [...] Author + + + | Author | [facility] | | | and [place] | + + + | Organization | [facility] | | [...] Team Providers + +------+ + | Care Anaesthesiologist Name | Role | Phone | + +------+ + | Estrella Light PA-C | PCP | | + +------+ + Encounter Details +--------+ + + + + | Date | Type | Department | Care Team | Description | +--------+ + + + + | 04/12/ | Orders Only | [facility] [place] | Avi Forde MD | IgG Gliadin antibody | | 2015 | | GASTROENTEROLOGY | [address] [place] | positive; Chronic | | | | [address] [place] | [address] [place], [place] | diarrhea | | | | [address] [place], [place] | [address] | | | | | [address] | | | | | | [phone] | | | +--------+ + + + [...]
--- OUTSIDE RECORDS SUMMARY | ~2020-06-16 | XMS | Encounter Summary ---
Demographics + + + | Address | [address] | | | [place] [address] | + + + | Home Phone [...] Team Providers + +------+ + | Care Cardiac Nurse Specialist Name | Role | Phone | + +------+ + | Estrella Light PA-C | PCP | | + +------+ + Encounter Details +--------+ + + + + | Date | Type | Department | Care Team | Description | +--------+ + + + + | 03/29/ | Abstract | [facility] [place] | Avi Forde MD | | | 2015 | | GASTROENTEROLOGY | [address], [place] | | | | | [address] [facility] | [address] [place] [address] | | | | | [address] [place], [place] | [address] | | | | | [address] | | | | | | [phone] | | | +--------+ + + + [...]
--- OUTSIDE RECORDS SUMMARY | ~2020-06-16 | XMS | Encounter Summary ---
Demographics + + + | Address | [address] | | | [place] [address] | + + + | Home Phone | | + + + | Preferred Language | Unknown | + + + | Marital Status | Single | + + + | Religion Affiliation | 1077 | + + + | Race | or | + + + | Ethnic Group | Not or | + + + Author + + + | Author | [facility] | | | and [place] | + + + | Organization | [facility] | | [...] Team Providers + +------+ + | Care Fitness Supervisor Name | Role | Phone | + +------+ + | Estrella Light PA-C | PCP | | + +------+ + Reason for Visit + +--------+ + | Reason | Onset | Comments | | | Date | | + +--------+ + | Medication Prior | 12/05/ | lanlatishaus | | Authorization | 2020 | | + +--------+ + Encounter Details +--------+ + + + + | Date | Type | Department | Care Team | Description | +--------+ + + + + | 12/05/ | Telephone | [facility] | Libby Albarado | Medication Prior | | 2019 | | [address] | Authorization | | | | [place] | | ([place]) | | | | [address] | | | | | | [phone] | | | +--------+ + + + [...] this encounter Miscellaneous Notes Telephone Encounter - Libby Albarado RN - 12/06/2019 11:55 AM [place] [facility]. They do not need a PA at this time as pt took to [facility] to get filled. d ocumented in this encounter Plan of Treatment Not [...]
--- OUTSIDE RECORDS SUMMARY | ~2020-06-16 | XMS | Encounter Summary ---
Demographics + + + | Address | [address] | | | [place] [address] | + + + | Home Phone [...] Author + + + | Author | [facility] | | | and [place] | + + + | Organization | [facility] | | | [...] Team Providers + +------+ + | Care Lacemaker Name | Role | Phone | + +------+ + | Estrella Light PA-C | PCP | | + +------+ + Encounter Details +--------+ + + + + | Date | Type | Department | Care Team | Description | +--------+ + + + + | 01/13/ | Hospital | [facility] | Cameron Lopez | | | 2018 - | Encounter | [facility] | MD Antolin Hill | | | | | CLINICAL DECISION | [place], [place] | | | 01/14/ | | UNIT [facility] [address] | [id number] | | | 2018 | | [place], [place] | | | | | | [address] | | | | | | [phone] | | | +--------+ + + + [...] 01/14/181931 Date of Service: 01/14/18899 Status: Signed What Job Titles Mean: Abhinav Winters DO (Physician) The patient is 52 y.o. 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, presented to the emergency department of [facility] in [place] today with complaints of upper, sharp chest [...] not smoke. In the emergency department at [facility], EKG showed T inversions in lead [...] decision, however the patient decided to leave A before I could evaluate him. documented in [...] 01/14/18950 Date of Service: 01/14/18899 Status: Signed What Job Titles Mean: Elizabeth Galvez RN (Registered Nurse) Approached by [...] be here shortly to discuss with madelyn usn. Patient states "you're not listening to me, [...] staff would provide wheelchair ride out to [facility] and he could wait inside [facility] until ride arrived. He then stated "oh I see, you are just going to kick me out on the street now!" Explained to patient that was not being kicked out and that waiting in the lobby was where h ashley was welcome to wait inside until his ride arrived. He was then escorted, via wheelchair, to [facility] by escort and security staff. onver ruben Transaction, Provider Unknown - 01/13/2018 2:00 PM PDT Pharmacy Note by Rosalba Luo RPH at 01/13/18 1400 Author: Rosalba Luo RPH Service: Pharmacy Author Type: Pharmacist Filed: 01/13/18 1400 Date of Service: 01/13/181399 Status: Signed What Job Titles Mean: Rosalba Luo RPH (Pharmacist) Clinical Pharmacy Note: [...] Service: Hospitalist Author Type: Physician Filed: 01/13/18 1636 Date of Service: 01/13/18 1257 Status: Addendum What Job Titles Mean: Cameron Lopez MD (Physician) Related Notes: Original Note by Cameron Lopez MD (Physician) filed at 01/13/18 14 09 [facility] Service: Hospitalist Admission History & Physical Date of Admission: 01/13/2018 Requesting Physician: ED physician, [facility], [place]. Reason for Admission: Chest pain History Obtained [...] ago, presented to the emergency department of [facility] in [place] today with complaints of upper, sharp chest [...] not smoke. In the emergency department at [facility], EKG showed T inversions in lead [...] - AMPUTATION; Surgeon: Jerry Redmond DPM; Location: [facility] OR; Service: Podiatry; Laterality: Left; [...] of right mid foot with mild dr ainayana. Psychiatric: He has a normal mood and [...] mellitus, with long-term current use of insulin (HCC) Viral upper respiratory tract infection Essential hypertension Skin ulcer of right foot, limited to breakdown of skin (HCC) ASSESSMENT & PLAN 1. Chest pain, most likely atypical in nature and secondary to upper respiratory tract infe ction. Pain occurs only when the patient coughs or takes a deep breath, and there is no radi ation of pain. However, he has borderline elevation of troponin and initial EKG done at [facility] showed T inversions in lead III and aVF. However, repeat EKG done in [facility] revealed normal sinus rhythm, without any [...] of Lovenox at the emergency department in [place]. The kendall ent currently is chest pain free. If troponin shows an upward trend and repeat EKG shows any changes, then we will consult Dr. Galicia, who was already notified by physician at [facility]. If acute RI is ruled out, then we will proceed [...] of Care by Sean Gaitan RN at 01/14/18225 Author: Sean Gaitan RN Service: (none) Author Type: Registered Nurse Filed: 01/14/18225 Date of Service: 01/14/18225 Status: Signed What Job Titles Mean: Sean Gaitan RN (Registered Nurse) Problem: Pain [...] 01/13/181628 Date of Service: 01/13/181627 Status: Signed What Job Titles Mean: Jenny Willingham RN (Registered Nurse) Problem: Pain [...] At | + + + | [facility] X[facility] CHEST 1 VIEW 01/14/2018 7:43 AM [...] Glenn Valle Conversion - 05/15/2019 8:55 AM WILLOW ARNDT [...] | LAB | | | | [address], | | | | | | [place] [address] | | | | + + + [...] [facility], [address] | uIU/mL | LAB | | | | [address], | | | | | | [place] [address] | | | | + + + [...] | LAB | | | | [address], | | | | | | [place] [address] | | | | + + + [...] | LAB | | | | [address], | | | | | | [place] [address] | | | | + + + [...] | EXTERNAL | | | A1c | [facility] | | LAB | | | [...] | | | | | | [address], | | | | | | [place] [address] | | | | + + + [...] | | | Calculated | performed at [facility], [address] | | LAB | | | | [address], | | | | | | [place] [address] | | | | + + + [...] W | | | | | | [facility], | | | | | | [place] [address] | | | | + + + [...] | | | Fingerstick | performed at [facility];[address] | | LAB | | | | [address];[place] | | | | | | [address] | | | | + + + [...] + + | [facility] | EXTERNAL LAB | + + + [...] EXTERNAL | | | | performed at [facility] | | LAB | | | | [facility];[place], [place] | | | | | | [address] | | | | + + + [...] | | | Fingerstick | performed at [facility];[address] | | LAB | | | | [address];[place] | | | | | | [address] | | | | + + + [...] | | | | | performed at [facility];[address] | | | | | | [facility];[place], [place] | | | | | | [address] | | | | + + + [...] EXTERNAL | | | | performed at [facility];[address] | | LAB | | | | [address];[place], [place] | | | | | | [address] | | | | + + + [...] | | | Fingerstick | performed at [facility];[address] | | LAB | | | | [address];[place] | | | | | | [address] | | | | + + + [...] | | | Fingerstick | performed at [facility];[address] | | LAB | | | | [address];[place] | | | | | | [address] | | | | + + + [...] | | | | | performed at [facility] | | | | | | [address];[place], [place] | | | | | | [address] | | | | + + + [...] EXTERNAL | | | | performed at [facility];[address] | | LAB | | | | [address];[place] | | | | | | [address] | | | | + + + [...] TV A Star: 0.46 m/s TV Dec Bourbon: 2.14 m/s2 TV Dec Time: | | | 223.61 ms TV E Star: 0.47 m/s TV E/A Ratio: 1.03 | | | Government Relations Manager: GD Authenticated by: Dereck Galicia Report | | | Date/Time: 01-13-2018 17:21:41 | | + + + + + | Procedure Note | + + | Glenn Valle Conversion - 05/15/2019 8:55 AM PDT Patient Name: Esvin MC of | | : 1965 Performing Physician: Dereck | | [place] INDICATIONS----- | | ------abnormal ekg CONCLUSIONS 1. [...] (A-L): | | 16.36 ml/m2LAAs A2C: 13.19 [id number] A-L A2C: 34.91 mlLALs A2C: 4.23 cmLAAs A4C: | | 11.37 [id number] A-L A4C: 29.21 mlLALs A4C: 3.75 cmRAAd: 13.57 [id number] A-L: | | 35.22 mlRAEDV MOD: 30.46 mlRALd: 4.44 cmTAPSE: 1.67 cmHR: 82.18 BPMAV maxPG: | | 3.19 mmHgAV meanP.99 mmHgAV Vmax: 0.89 m/Simran Vmean: 0.69 m/Simran VTI: 18.16 | | cmAVA Vmax: 3.34 cm2AVA (VTI): 3.51 gv6JQZM Vmax: 0.00 cm2/m2AVAI (VTI): 0.00 | | cm2/m2LVCI Dopp: 2.41 l/jexk8REJS Dopp: 5.00 l/minHR: 78.46 BPMLVOT maxP.34 | [...] 3 mmHgTV A Star: 0.46 m/sTV Dec Bourbon: 2.14 m/s2TV Dec Time: 223.61 | | msTV E Satr: 0.47 m/sTV E/A Ratio: 1.03 Government Relations Manager: Jerrodted by: Dereck | | GrayimerlaReport Date/Time: 01-13-2018 [...] A Star: 0.46 m/s | |TV Dec Bourbon: 2.14 m/s2 | |TV Dec Time: 223.61 ms | |TV E Star: 0.47 m/s | |TV E/A Ratio: 1.03 | | | |Government Relations Manager: GD | |Authenticated by: Dereck Galicia | [...] | | | Fingerstick | performed at [facility];[address] | | LAB | | | | [address];[place] | | | | | | [address] | | | | + + + [...] | | | | | performed at [facility];[address] | | | | | | [facility];[place], [place] | | | | | | [address] | | | | + + + [...] + + | Historically converted procedure from [facility] | EXTERNAL LAB | + [...] | | | PCRAbnormal Testing performed at [facility];[address] [place] [address];[place] [address] | | + + + + +---------+ [...]
--- OUTSIDE RECORDS SUMMARY | ~2020-06-16 | XMS | Encounter Summary ---
Demographics + + + | Address | [address] | | | [place] [address] | + + + | Home Phone | | + + + | Preferred Language | Unknown | + + + | Marital Status | Single | + + + | Denominational Affiliation | [id number] | + + + | Race | or | + + + | Ethnic Group | Not or | + + + Author + + + | Author | [facility] | | | and [place] | + + + | Organization | [facility] | | | and [...] Team Providers + +------+ + | Care Organic Chemistry Professor Name | Role | Phone | + +------+ + | Estrella Light PA-C | PCP | | + +------+ + Encounter Details +--------+ + + + + | Date | Type | Department | Care Team | Description | +--------+ + + + + | 09/22/ | Anesthesia | [facility] | Ilya Dodge | | | 2014 | Event | MED [facility] INTRA OP | MD Ebonie [address] | | | | | [address] | [facility] | | | | | [place] | [place] [address] | | | | | [address] | [phone] | | | | | [phone] | | | +--------+ + + + [...] EVALUATION Kuldip Smith 50 y.o. male 1965 [id number] Procedure(s): COLONOSCOPY (N/A Rectum) Medical history, anesthesia, [...]
--- OUTSIDE RECORDS SUMMARY | ~2020-06-16 | XMS | Encounter Summary ---
Demographics + + + | Address | [address] | | | [place] [address] | + + + | Home Phone [...] Providers + +------+ + | Care Rubber Boots And Shoes Repairer Name | Role | Phone | [...] antibody | [address] [place], | | | | | positive | [place], [place] | [place] [address] | | | | | Chronic | [address] [place] | [place], | | | | | diarrhea | [place], [place] | [place] [address] | | | | | Procedures | [address] | Phone: | | | | | MS | Phone: | [phone] | | | | | COLONOSCOPY | [phone] | Fax: | | | | | FLX DX | Fax: | [phone] | | | | | W/COLLJ SPEC | [phone] | | | | | | WHEN PFRMD | | | | | | | MS | | | | | | | COLONOSCOPY | | | | | | | W/BIOPSY | | | | | | | SINGLE/MULTI | | | | | | | PLE MS | | | | | | | COLSC FLX | | | | | | | W/RMVL OF | | | | | | | TUMOR POLYP | | | | | | | LESION SNARE | | | | | | | TQ MS | | | | | | | ESOPHAGOGAST | | | | | | | RODUODENOSCO | | | | | | | PY TRANSORAL | | | | | | | DIAGNOSTIC | | | | | | | MS EDG | | | | | | [...] + + | 03/08/ | Telephone | [facility] | Avi Forde MD | Appointment | | 2015 | | GASTROENTEROLOGY | [address] [place] [address], [place] | (egd/colon ) | | | | [address] [place] | [address] [place], [place] | | | | | [address] [place], [place] | [address] | | | | | [address] | | | | | | [phone] | | | +--------+ + + + [...] OR booking and not es to [facility] Plan of Treatment [...] antibody positive | 04/12/2016, Expires: | | ivan) | | | Chronic diarrhea | 03/08/2017 | + + +--------+ + + documented as of this encounter Visit Diagnoses + + | Diagnosis | + + | IgG Gliadin antibody positive - Primary Other and unspecified nonspecific | | immunological findings | + + | Chronic diarrhea Diarrhea | + + documented in this encounter"
--- OUTSIDE RECORDS SUMMARY | ~2020-06-16 | XMS | Encounter Summary ---
Demographics + + + | Address | [address] | | | [place] [address] | + + + | Home Phone [...] Team Providers + +------+ + | Care Body Masker Name | Role | Phone | + +------+ + | Estrella Light PA-C | PCP | | + +------+ + Encounter Details +--------+ + + + + | Date | Type | Department | Care Team | Description | +--------+ + + + + | 05/12/ | Orders Only | [facility] | Provider, | | | 2019 | | SYSTEM GENERIC OP | [address] | | | | | [address] | [place] | | | | | [address] [place], [place] | [place] [address] | | | | | [address] | | | | | | [phone] | | | +--------+ + + + [...]
--- OUTSIDE RECORDS SUMMARY | ~2020-06-16 | XMS | Encounter Summary ---
Demographics + + + | Address | [address] | | | [place] [address] | + + + | Home Phone | | + + + | Preferred Language | Unknown | + + + | Marital Status | Single | + + + | Zoroastrianism Affiliation | 1077 | + + + | Race | or | + + + | Ethnic Group | Not or | + + + Author + + + | Author | [facility] | | | and [place] | + + + | Organization | [facility] | | [...] Team Providers + +------+ + | Care Vat Operator Name | Role | Phone | + +------+ + | Estrella Light PA-C | PCP | | + +------+ + Encounter Details +--------+ + + + + | Date | Type | Department | Care Team | Description | +--------+ + + + + | 12/14/ | Hospital | [facility] | lE, | Osteomyelitis of | | 2017 - | Encounter | [facility] | MD Pavel [address] | foot, left, acute | | | | CARE FLOOR [address] | ([facility]); Uncontrolled | | 12/20/ | | [address] | [place] [address] | type 2 diabetes | | 2017 | | [place] | [phone] | mellitus with | | | | [address] | | hyperglycemia, | | | | [phone] | | unspecified long | | | | | | term insulin use | | | | | | status ([facility]); Renal | | | | | | [...] different from teto gomez. Discharge Summaries by Bunny Chaney MD at 12/20/16 153 Author: Bunny Chaney MD Service: (none) Author Type: Physician Filed: 12/26/16 1935 Date of Service: 12/20/161538 Status: Addendum Etl Architect: Bunny Chaney MD (Physician) Related Notes: Original Note by Bunny Chaney MD (Physician) filed at 12/26/16 0644 [facility] Service: Hospitalist Physician Discharge Summary Patient ID: Kuldip Smith [id number] y.o. 1965 Admit date: 12/14/2016 Discharge date and time: 12/20/16 Admitting Physician: Pavel Gallegos MD Discharge Physician: Bunny Chaney MD Consultants: Treatment Team: Consulting Physician: Rebeca Russell MD Admitting Provider: Pavel Gallegos MD Discharge [...] been approved, which should be given from [facility] ec until further approval from [...] up: Estrella Light PA-C [address] [place] [address] Rebeca Russell MD 3 [facility] [address] Schedule an appointment as soon as possible for a visit in 10 days Dictation and certified medical transcriptionist or software, Arcar[employer], used which may contain error for similar [...] C) TempSrc: Oral Axillary Oral Oral Resp: Height: Weight: SpO2: 99% 95% 99% 98% [...] - AMPUTATION; Surgeon: Walter Fernandez DPM; Location: [facility] MAIN OR; Service: Podiatry; Laterality: [...] Management by Jenny Vaughan RN at 12/20/16 5918 Author: Jenny Vaughan RN Service: (none) Author Type: Registered Nurse Filed: 12/20/16 1652 Date of Service: 12/20/16 1539 Status: Signed Etl Architect: Jenny Vaughan RN (Registered Nurse) 1610 - Received call from [facility] stating they are now unable to accept pa tient due to a "freeze on admits". They are aware patient has been discharged and is en rou te to home. They are still unable to accept. Call placed to [facility] OPP rega rding need for services. They state pt will need to arrange wound care/dressing changes thr ough his PCP per insurance requirements. Voicemail left for Coby at [facility] inic to return call. Will need to call back in morning to schedule appointment as clinic is currently closed. onver ruben Transaction, Provider Unknown - 12/20/2016 3:39 PM PDT Case Management by Mirlande Prescott RN at 12/20/16 1539 Author: Mirlande Prescott RN Service: (none) Author Type: Registered Nurse Filed: 12/21/16 0808 Date of Service: 12/20/16 1539 Status: Signed Etl Architect: Mirlande Prescott RN (Registered Nurse) 0800: Tc to pt's PCP, Coby Light, with [facility], to updat e about [facility] not being able to admit pt. Coby states she and Charlotte will work on getting pt the appropriate wound vac care he needs, they are going to try and get pt into O P wound therapy with [facility] or maybe to OP in [place]. Coby states she will als o call [facility] as to when they can admit pt under their services. Maribel onver ruben Transaction, Provider Unknown - 12/20/2016 1:03 PM PDT Progress Notes by Rachael Molina RN at 12/20/16 1303 Author: Rachael Molina RN Service: Wound/Ostomy Care Author Type: Registered Nurse Filed: 12/20/16 1311 Date of Service: 12/20/16 1303 Status: Signed Etl Architect: Rachael Molina RN (Registered Nurse) Wound care in to switch patient out to portable wound vac unit. This is a sol vac on l oan from [facility]. Explained to patient when his insurance approves his home vac unit, that t his sol vac is to be returned via [employer]. Instructions given in detail, voiced candelaria frias. Photo taken of tracking number and faxed to Alicia [facility] rep. Instructions on how to use the [...] for further protection. Hospital vac dc'd in [facility] express: #[id number] Rachael Molina RN, CWON 12/20/2016 1:10 PM onver rubne Transaction, Provider Unknown - 12/20/2016 11:34 AM PDT Case Management by Mirlande Prescott RN at 12/20/16 8414 Author: Mirlande Prescott RN Service: (none) Author Type: Registered Nurse Filed: 12/20/16 6533 Date of Service: 12/20/16 1134 Status: Addendum Etl Architect: Mirlande Prescott RN (Registered Nurse) Related Notes: Original Note by Mirlande Prescott RN (Registered Nurse) filed at 12/20/16 114 9 Per rounding with pt, he will be d/c home today. Pt states his mother will be providing tra nsportation home. Wound vac has been approved by sol care. [facility] has been set up, and they have been notified about d/c, pt may not be able t o be admitted until . Pt's wound dressing is due Monday. Tc jeannie Adams with wound care, it's not ideal that pt's dressing doesn't get changed until , but it is ok to wait. Dr Chaney was notified and agrees with plan. Tc to Coby [phone] and Charlotte [phone] [facility]/mannie pickens nd left mssgs of pt's d/c Today. Faxed AVS to [facility] LINDY López Iqra Mcgregor PT - 12/20/2016 10:07 AM PDTFormatting of this note might be different from th e original. Therapy Progress Note by Karina Zabala PT at 12/20/16 1007 Author: Karina Zabala PT Service: (none) Author Type: Physical Therapist Filed: 12/20/16 1037 Date of Service: 12/20/16 1007 Status: Signed Etl Architect: Karina Zabala PT (Physical Therapist) 12/20/16 1007 PT Last Visit PT Received On 12/20/16 Reason for Treatment Other (comment) (L foot osteomyelitis) Requires PT Follow Up No Assistance Required 1 person Precautions LE Precaution(s) LLE Precautions/WB LLE NWB Other Precautions fall risk Other Comments Comments Pt asleep in bed upon PT arrival, aroused and agreeable to therapy and crutch willard rhea. Pt somewhat frustrated with changing date of [...] Progress Note by Natalia Marte PT at 12/19/161645 Author: Natalia Marte PT Service: (none) Author Type: Physical Therapist Filed: 12/19/16 2959 Date of Service: 12/19/161645 Status: Signed Etl Architect: Natalia Marte PT (Physical Therapist) 12/19/161645 PT Last Visit PT Received On 12/19/16 Reason for Treatment Other (comment) (L foot osteomyelitis) Requires PT Follow Up Awaiting tx order Follow up PT Only? Yes (Assistive device assessment) Focus for Next Treatment Equipment Trial;Stair Training (bilateral axillary crutches and stair training) PT Eval/Reassessment Date 12/19/16 Assistance Required 1 person Environmental Health Technician Needed No Home Environment Type of Home Home one story Home Exterior Layout 1-3 steps (2 JEISON) Home Interior Layout Lives on main level with bedroom/bathroom Bathroom Shower/Tub Tub/shower unit Bathroom Toilet Raised Bathroom Equipment Grab bars outside of shower/bath;Raised toilet seat Bathroom Accessibility Not accessible Home Equipment Cane single point;Crutches-axillary Prior Function Level of [place] Independent with ADLs;Independent with IADLs;Modified independent wi [...] Eval/Reassessment Date 12/19/16 Assistance Required 1 person Environmental Health Technician Needed No Precautions LE Precaution(s) LLE [...] fatigue;Patient limited by pain Nurse Made Aware RN Stephanie Safety Devices Safety Devices in Place Yes [...] 11:45 AM PDT Progress Notes by Rebeca Russell MD at 12/19/16 3513 Author: Rebeca Russell MD Service: Infectious Disease Author Type: Physician Filed: 12/20/16 0639 Date of Service: 12/19/16 3520 Status: Signed Etl Architect: Rebeca Russell MD (Physician) [facility] Service: Infectious Disease Progress Note Hospital Day: [...] Dec 15 2016 9:30AM Referring Provider Line: [phone] ID: [id number] MRI foot left without contrast [[id number]] Impression 1. Recent amputation of the LEFT 4th toe. 2. No radiographic evidence of residual osteomyelitis in the remaining ossicles of the LEF T forefoot. 3. Moderately extensive vascular calcifications. X-ray foot left [[id number]] PROBLEM LIST Principal Problem: Osteomyelitis (HCC) Active [...] Dr. Archer Code Status: Full Code REBECA RUSSELL MD 12/19/2016 rownDell DO - 12/19/2016 11:03 AM PDT Progress Notes by Dell Archer DO at 12/19/16 1103 Author: Dell Archer DO Service: Hospitalist Author Type: Physician Filed: 12/19/16 1106 Date of Service: 12/19/16 1103 Status: Signed Etl Architect: Dell Archer DO (Physician) PROGRESS NOTE 12/19/2016 [...] Service: (none) Author Type: Registered Nurse Filed: 12/19/161102 Date of Service: 12/19/16914 Status: Addendum Etl Architect: Jenny Vaughan RN (Registered Nurse) Related Notes: Original Note by Jenny Vaughan RN (Registered Nurse) filed at 12/19/16 [phone] - [facility]. She wi ll be following patient once he is discharged and requests to be notified when patient is di scharging. Her voicemail is secure and she gives permission to leave a detailed message, if needed. She is also aware [facility] will be following for home health services. I also contacted [facility] to update on patient status and they are able to accept patient. Face to face order faxed ([phone]) Charlotte - [facility] RN [phone] Alicia with [facility] notified of wound vac placement. Auth form signed by hospitalist and faxed to Lizza. Carr with [facility] notified of patient discharging on oral antibiotics. onver ruben Transaction, Provider Unknown - 12/18/2016 6:45 PM PDT Nurse Progress Note by Gerber Hay RN at 12/18/161844 Author: Gerber Hay RN Service: (none) Author Type: Registered Nurse Filed: 12/18/161847 Date of Service: 12/18/161844 Status: Signed Etl Architect: Gerber Hay RN (Registered Nurse) Pt resting comfortably, tx with hydromorphone for pain x3. VSS. Will continue to monitor. GERBER HAY RN roDell patton DO - 12/18/2016 9:29 AM PDTFormatting of this note might be different from the kar ginal. Progress Notes by Dell Archer DO at 12/18/16928 Author: Dell Archer DO Service: Hospitalist Author Type: Physician Filed: 12/18/1634 Date of Service: 12/18/16928 Status: Addendum Etl Architect: Dell Archer DO (Physician) Related Notes: Original Note by Dell Archer DO (Physician) filed at 12/18/16 0931 PROGRESS NOTE 12/18/2016 for Kuldip Smith on [...] sodium chloride (IV) 110 mL/hr at 12/16/161816 PRN: acetaminophen OR acetaminophen, dextrose, dextrose, dextrose, glucagon, glucagon, HYDRO codone-acetaminophen OR HYDROcodone-acetaminophen, HYDROmorphone OR HYDROmorphone, l idocaine, ondansetron OR [DISCONTINUED] ondansetron, polyethylene glycol, saline lock IV - when tolerating PO fluids AND sodium chloride (PF), zolpidem Signature: Dell Archer DO 12/18/2016 9:29 AM Walter Stover ld - 12/18/2016 8:55 AM PDT Progress Notes by Walter Fernandez DPM at 12/18/16 08 Author: Walter Fernandez DPM Service: Podiatry Author Type: Doctor of Podiatric Medi cine Filed: 12/18/16899 Date of Service: 12/18/16854 Status: Signed Etl Architect: Walter Fernandez DPM (Doctor of Podiatric Medicine) [facility] Service: Podiatry Progress Note Hospital Day: LOS: [...] home health care. Dr. David DPM in [place] take s care of this patient and [...] 12/18/16845 Date of Service: 12/18/16845 Status: Signed Etl Architect: Destini Vargas RPH (Pharmacist) Day 5 Vanco Tx. Todays Scr= 0.9, WBC= 10.99 with estim CrCl= 111.2 ml/min. Last Vanco Tr 12/17 PM = 17.4 (15-20mcg/ml). No changes today. Pharmacist; DESTINI VARGAS 12/18/2016 8:45 AM Rebeca Hernandez MD - 12/18/2016 8:21 AM PDT Progress Notes by Rebeca Russell MD at 12/18/16 0821 Author: Rebeca Russell MD Service: Infectious Disease Author Type: Physician Filed: 12/18/16 1108 Date of Service: 12/18/16820 Status: Signed Etl Architect: Rebeca Russell MD (Physician) [facility] Service: Infectious Disease Progress Note Hospital Day: [...] chloride (IV) 110 mL/hr at 12/16/16 1817 PRN Medications acetaminophen OR acetaminophen, dextrose, dextrose, [...] Dec 15 2016 9:30AM Referring Provider Line: [phone] ID: [id number] MRI foot left without contrast [[id number]] Impression 1. Recent amputation of the LEFT 4th toe. 2. No radiographic evidence of residual osteomyelitis in the remaining ossicles of the LEF T forefoot. 3. Moderately extensive vascular calcifications. X-ray foot left [[id number]] PROBLEM LIST Principal Problem: Osteomyelitis (HCC) Active [...] nursing staff Code Status: Full Code REBECA RUSSELL MD 12/18/2016 onversion Ledesma saction, Provider Unknown - 12/17/2016 10:47 PM PDTFormatting of this note might be differen t from the original. Pharmacy Note by Jihan Jacinto RPH at 12/17/162246 Author: Jihan Jacinto RPH Service: Pharmacy Author Type: Pharmacist Filed: 12/17/162246 Date of Service: 12/17/162246 Status: Signed Etl Architect: Jihan Jacinto RPH (Pharmacist) Clinical Pharmacy Note: Pharmacy Dosing Vancomycin; Day 4 Weight: 89.9 kg WBC: 14.59 CREATININE: 0.9 (12/17/16 0524) Estimated creatinine clearance - 112.1 mL/min INDICATION: Osteomyelitis Recent level drawn 12/17 at 2000 - 17.4 mcg/mL; within goal 15 to 20 mcg/mL. Will continue current regimen: Vancomycin 1500 mg (16.7 mg/kg) IV Q12H. Jihan Jacinto PharmD 12/17/2016 10:46 PM onver ruben Transaction, Provider Unknown - 12/17/2016 5:43 PM PDT Nurse Progress Note by Gerber Hay RN at 12/17/161742 Author: Gerber Hay RN Service: (none) Author Type: Registered Nurse Filed: 12/17/16 8397 Date of Service: 12/17/161742 Status: Signed Etl Architect: Gerber Hay RN (Registered Nurse) Wound vac applied, pt tolerated well with PRN pain medication. Currently at target pressur e 125, no leaks identified. Pt had several loose stools throughout day, two as incontinent episodes requiring full linen changes. CDiff order in place for next stool. Blood glucose stable. Will continue to monitor. GERBER HAY RN acky garzon, Rebeca Messina MD - 12/17/2016 3:10 PM PDT Progress Notes by Rebeca Russell MD at 12/17/16 0394 Author: Rebeca Russell MD Service: Infectious Disease Author Type: Physician Filed: 12/17/16 5163 Date of Service: 12/17/16 7474 Status: Addendum Etl Architect: Rebeca Russell MD (Physician) Related Notes: Original Note by Rebeca Russell MD (Physician) filed at 12/17/16 4954 [facility] Service: Infectious Disease Progress Note Hospital Day: [...] hours but fever curve better today. Dr. Fernnadez saw patient today with wound at the [...] 89.903 kg (198 lb 3.2 oz) (12/17 030) Physical Exam Vital signs reviewed General: Not [...] Dec 15 2016 9:30AM Referring Provider Line: [phone] ID: [id number] MRI foot left without contrast [[id number]] Impression 1. Recent amputation of the LEFT 4th toe. 2. No radiographic evidence of residual osteomyelitis in the remaining ossicles of the LEF T forefoot. 3. Moderately extensive vascular calcifications. X-ray foot left [[id number]] PROBLEM LIST Principal Problem: Osteomyelitis (HCC) Active [...] nursing staff Code Status: Full Code REBECA RUSSELL MD 12/17/2016 Arina Stover - 12/17/2016 2:06 PM PDTFormatting of this note might be different from the origi nal. Progress Notes by Walter Fernandez DPM at 12/17/16 1406 Author: Walter Fernandez DPM Service: Podiatry Author Type: Doctor of Podiatric Medi cine Filed: 12/17/16 0020 Date of Service: 12/17/161405 Status: Signed Etl Architect: Walter Fernandez DPM (Doctor of Podiatric Medicine) [facility] Service: Podiatry Progress Note Hospital Day: LOS: [...] chloride (IV) 110 mL/hr at 12/16/16 1817 PRN Medications acetaminophen OR acetaminophen, dextrose, dextrose, [...] (37.9 C)] 98.5 F (36.9 C) (12/17 1214) BP: (133-168)/(82-96) 140/85 mmHg (12/17 1214) Heart Rate: [75-102] 75 (12/17 1214) Resp: [16-20] 18 (12/17 1214) SpO2: [95 [...] Note by Gerber Hay RN at 12/17/16 1144 Author: Gerber Hay RN Service: (none) Author Type: Registered Nurse Filed: 12/17/16 1209 Date of Service: 12/17/16 1144 Status: Signed Etl Architect: Gerber Hay RN (Registered Nurse) Pt had large incontinent bowel movement, told RN that he has "prescription strength immodiu m" at home, RN educated pt about possible reaction to antibiotics and stress from surgery pl us being hospitalized that can cause a change in bowel habits. Will continue to monitor. M ZHEN HAY RN rownDell DO - 12/17/2016 10:59 AM PDTFormatting of this note might be different from the kar ginal. Progress Notes by Dell Archer DO at 12/17/16 1059 Author: Dell Archer DO Service: Hospitalist Author Type: Physician Filed: 12/17/16 1103 Date of Service: 12/17/16 1059 Status: Signed Etl Architect: Dell Archer DO (Physician) PROGRESS NOTE 12/17/2016 [...] 12/17/16834 Date of Service: 12/17/16834 Status: Signed Etl Architect: Destini Vargas RPH (Pharmacist) Day 4 Vanco [...] 3:08 AM PDT Pharmacy Note by Jihan aJcinto RPH at 12/17/16307 Author: Jihan Jacinto RPH Service: Pharmacy Author Type: Pharmacist Filed: 12/17/16307 Date of Service: 12/17/16307 Status: Signed Etl Architect: Jihan Jacinto RPH (Pharmacist) Clinical Pharmacy Note: [...] 2000 - check for accumulation. Jihan Jacinto PharmTaniya 12/17/2016 3:02 AM Walter Emerson - 12/16/2016 5:10 PM PDT Progress Notes by Walter Fernandez DPM at 12/16/161709 Author: Walter Fernandez DPM Service: Podiatry Author Type: Doctor of Podiatric Medi cine Filed: 12/16/161719 Date of Service: 12/16/161709 Status: Signed Etl Architect: Walter Fernandez DPM (Doctor of Podiatric Medicine) [facility] Service: Podiatry Progress Note Hospital Day: LOS: [...] (12/16 115) Heart Rate: [80-100] 90 (12/16 1153) Resp: [8-20] 16 (12/16 115) SpO2: [94 [...] Code Status: Full Code WALTER FERNANDEZ DPM 12/16/2016 arIsak bruno MD - 12/16/2016 12:47 PM PDTFormatting of this note might be different from the origi nal. Progress Notes by Rebeca Russell MD at 12/16/16 7165 Author: Rebeca Russell MD Service: Infectious Disease Author Type: Physician Filed: 12/16/16 0302 Date of Service: 12/16/16 9606 Status: Signed Etl Architect: Rebeca Russell MD (Physician) [facility] Service: Infectious Disease Progress Note Hospital Day: [...] foot wound culture (superficial) 3+ Strep agalactiae / anaerobic cultures (OR) prelim 2+ Strep agalactiae [...] Dec 15 2016 9:30AM Referring Provider Line: [phone] ID: [id number] MRI foot left without contrast [[id number]] Impression 1. Recent amputation of the LEFT 4th toe. 2. No radiographic evidence of residual osteomyelitis in the remaining ossicles of the LEF T forefoot. 3. Moderately extensive vascular calcifications. X-ray foot left [[id number]] PROBLEM LIST Principal Problem: Osteomyelitis (HCC) Active [...] of 15-20; appreciate pharmacy assistance with kelsey frias. Will plan on discontinuing meropenem if there [...] penicillin allergy Code Status: Full Code REBECA RUSSLEL MD 12/16/2016 onversion Ledesma saction, Provider Unknown - 12/16/2016 11:29 AM PDTFormatting of this note might be differen t from the original. Case Management by Jenny Vaughan RN at 12/16/16 1129 Author: Jenny Vaughan RN Service: (none) Author Type: Registered Nurse Filed: 12/16/16 5090 Date of Service: 12/16/16 1129 Status: Signed Etl Architect: Jenny Vaughan RN (Registered Nurse) 12/16/16 1128 Discharge Planning Evaluation Admitting Diagnosis osteomyelitis Readmission No Living Arrangements Parent Support Systems Parent;Family members Type of Residence Private residence House type House-1 story Steps to enter 2 Independent with ADL's Yes Independent with Mobility Yes Mental Status Oriented Prior functional status not employed, independent Power of [employer] 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 Will sandra garcia need home health services along with IV abx. Discussed with patient and he states und erstanding. Referral sent to [facility] for nursing services as patient lives in [place]. Options for home IV abx services provided to pt/family and they do not have a preference. Referral to [facility] will follow. Pt/family requested I notify Coby at the [facility] of pt status as she ar ranges services for them. Contacted Coby and provided current discharge plan. If there is a change in plan, Coby requests to be notified as she will continue to follow patient after discharge. She also states pt will be followed by their community health nurse (Charlotte ) who works alongside [facility]. [facility] [phone] Assistance in transportation: Pt's family is able to provide transportation. Identification of any specific education / training: Pending pt progress Anticipated DCP: TBD. Likely home with home health and IV abx. Jenny Vaughan KeliwDell harmon DO - 12/16/2016 10:12 AM PDTFormatting of this note might be different from the kar ralf. Progress Notes by Dell Archer DO at 12/16/16 1012 Author: Dell Archer DO Service: Hospitalist Author Type: Physician Filed: 12/16/16 1017 Date of Service: 12/16/16 1012 Status: Signed Etl Architect: Dell Archer DO (Physician) PROGRESS NOTE 12/16/2016 [...] Management by Jenny Vaughan RN at 12/15/16 2631 Author: Jenny Vaughan RN Service: (none) Author Type: Registered Nurse Filed: 12/15/16 5087 Date of Service: 12/15/16 0967 Status: Signed Etl Architect: Jenny Vaughan RN (Registered Nurse) Attempted to [...] Pharmacy Note by Jihan Jacinto RPH at 12/15/16405 Author: Jihan Jacinto RPH Service: Pharmacy Author Type: Pharmacist Filed: 12/15/16405 Date of Service: 12/15/16405 Status: Signed Etl Architect: Jihan Jacinto RPH (Pharmacist) Clinical Pharmacy Note: [...] 12/15/16404 Date of Service: 12/15/16404 Status: Signed Etl Architect: Jihan Jacinto RPH (Pharmacist) Clinical Pharmacy Note: [...] 4:04 AM docume nted in this encounter H&P Notes Pavel Gallegos MD - 12/15/2016 1:32 AM PDTFormatting of this note might be diffe rent from the original. H&P by Pavel Gallegos MD at 12/15/16131 Author: Pavel Gallegos MD Service: Hospitalist Author Type: Physician Filed: 12/15/16 0313 Date of Service: 12/15/16131 Status: Signed Etl Architect: Pavel Gallegos MD (Physician) [facility] Service: Hospitalist Admission History & Physical Date of Admission: 12/14/2016 Requesting Physician: Tonie BURGESS, Emergency Department Reason for Admission: Foot Osteomyleitis History Obtained From: patient CHIEF COMPLAINT: Foot pain, swelling HISTORY OF PRESENT ILLNESS The patient is 51 y.o. male with significant past medical history of DM type 2 on insulin t herapy, Hypertension who presents with Foot pain and swelling Patient refers that his symptoms started approximately one week-10 days ago after a long wa lk, he noticed the presence of blisters on his left foot. He also refers a traumatic event that Monday on his foot. Since then he started developing increasing erythema, edema and te nderness affecting his whole foot and in the last few days his third toe became black with p ositive discharge. He refers taking all his medications as prescribed and applying Neospori n to the wound. Due to the lack of improvement on positive chills, subjective fever, the patient decided to go to the ED at [place] for further assessment. The patient denies any chest pain, dys pnea, cough, sputum production. Denies any abdominal pain, dysuria or hematuria. He does r efers chronic in nausea and diarrhea since he was diagnosed with diabetes mellitus. He refe rs using his insulin therapy as prescribed. In emergency department the patient has remained hemodynamically stable. MRI of the left f oot shows soft tissue edema involving the subcutaneous tissue concerning for cellulitis, phl egmon which appears to drain to the skin on top of the third and fourth metatarsals. Concer rhea for probable osteomyelitis. IV fluids, 2 L, and antibiotics-IV vancomycin and clindamy florence-were given in the ED. Patient will be admitted under the hospital service for further m anagement. REVIEW OF SYSTEMS Review of Systems Constitutional: Positive for chills and fatigue. Negative for fever. HENT: Negative for postnasal drip and rhinorrhea. Respiratory: Negative for apnea, cough, choking, shortness of breath and wheezing. Cardiovascular: Negative for chest pain, palpitations and leg swelling. Gastrointestinal: Positive for nausea and diarrhea. Negative for vomiting and abdominal jennifer n. Genitourinary: Negative for dysuria and difficulty urinating. Musculoskeletal: Negative for back pain and arthralgias. Skin: Positive for color change, rash and wound. Neurological: Negative for dizziness, syncope and headaches. Psychiatric/Behavioral: Negative for confusion and agitation. Past Medical History Diagnosis Date Diabetes mellitus, type 2 (HCC) Hypertension Past Surgical History Procedure Laterality Date Tonsillectomy Cataract extraction Vasectomy Bilateral No current facility-administered medications on file prior to encounter. Current Outpatient Prescriptions on File Prior to Encounter Medication Sig Dispense Refill insulin aspart (NOVOLOG FLEXPEN) 100 UNIT/ML injection Inject 15 Units into the skin 3 (three) times daily before meals. insulin glargine (LANTUS SOLOSTAR) 100 UNIT/ML injection Inject 20 Units into the skin nightly. lisinopril (ZESTRIL) 20 MG tablet Take 1 tablet by mouth daily. 30 tablet 11 loperamide (IMODIUM) 2 MG capsule Take 2 mg by mouth 4 (four) times daily as needed for Diarrhea. sildenafil (VIAGRA) 50 MG tablet Take 1 tablet by mouth as needed for Erectile Dysfunct ion. 10 tablet 11 Immunizations: Influenza: Pneumoccocal: Allergies Allergen Reactions Penicillins Hives (Not in a hospital admission) Family History Problem Relation Age of Onset Diabetes type II Maternal Grandfather Social History Social History Marital Status: Single Spouse Name: N/A Number of Children: N/A Years of Education: N/A Occupational History Not on file. Social History Main Topics Smoking status: Never Smoker Smokeless tobacco: Never Used Alcohol Use: No Drug Use: No Sexual Activity: Partners: Female Other Topics Concern Not on file Social History Narrative PHYSICAL EXAM Vital Signs: BP 134/75 mmHg | Pulse 88 | Temp(Src) 98.1 F (36.7 C) (Temporal) | Resp 16 | Wt 86.637 kg (191 lb) | SpO2 94% Physical Exam Constitutional: He appears well-developed. HENT: Head: Normocephalic and atraumatic. Eyes: EOM are normal. Pupils are equal, round, and reactive to light. Neck: Normal range of motion. Neck supple. No JVD present. Cardiovascular: Normal rate, regular rhythm and normal heart sounds. Exam reveals no polanco p and no friction rub. No murmur heard. Pulmonary/Chest: Effort normal. No respiratory distress. He has no wheezes. He has no rales . He exhibits no tenderness. Abdomina/Gl: Soft. He exhibits no distension and no mass. There is no tenderness. There is no rebound and no guarding. No hernia. Musculoskeletal: He exhibits no edema. Neurological: He is alert. Skin: DATA Results Procedure Component Value Units Date/Time Complete Metabolic Panel [[id number]] (Abnormal) Collected: 12/15/16 0119 Specimen Information: Blood Updated: 12/15/16 0205 SODIUM 134 (L) mmol/L POTASSIUM 4.0 mmol/L CHLORIDE 104 mmol/L CO2 21 (L) mmol/L ANION GAP AGAP 13 mmol/L GLUCOSE 254 (H) mg/dL BUN 12 mg/dL CREATININE 0.95 mg/dL BUN/CREAT 13 CALCIUM 6.9 (L) mg/dL TOTAL PROTEIN 6.3 g/dL Albumin 2.1 (L) g/dL GLOBULIN 4.2 g/dL A/G 0.5 (L) TBIL 0.4 mg/dL ALK PHOS 181 (H) U/L AST 10 U/L ALT 14 U/L EGFR >60 mL/min/1.73m2 POCT glucose [[id number]] (Abnormal) Collected: 12/15/16 0122 GLUCOSE,POC SCREEN 258 (H) mg/dL Updated: 12/15/16 012 Blood Culture Set 1 [[id number]] Collected: 12/14/16 2140 Specimen Information: Blood from Blood Updated: 12/15/168 Blood Culture Set 2 [[id number]] Collected: 12/14/16 2240 Specimen Information: Blood from Blood Updated: 12/15/16 0028 Septic Lactic Acid [[id number]] Collected: 12/14/16 224 LACTIC ACID 1.0 mmol/L Updated: 12/14/16 2349 POCT glucose [[id number]] (Abnormal) Collected: 12/14/16 2334 GLUCOSE,POC SCREEN 172 (H) mg/dL Updated: 12/14/16 2336 Ketones,Serum [[id number]] Collected: 12/14/162144 KETONES,SERUM NEGATIVE Updated: 12/14/162229 CBC w Auto Diff [[id number]] (Abnormal) Collected: 12/14/162144 Specimen Information: Blood Updated: 12/14/162221 WBC 19.46 (H) K/uL RBC 4.20 M/uL HGB 12.4 (L) g/dL HCT 36.3 (L) % MCV 86.5 fl MCH 29.4 pg MCHC 34.0 g/dL RDW SD 42.9 fl PLT 258 K/uL MPV 8.3 fl DIFF TYPE AUTOMATED NEUTROPHILS 87.43 % LYMPHOCYTES 5.56 % MONOCYTES 4.36 % EOSINOPHILS 1.84 % BASOPHILS 0.81 % NEUTROPHILS ABS 17.02 (H) K/uL LYMPHOCYTES ABS 1.08 K/uL MONOCYTES ABS 0.85 (H) K/uL EOSINOPHILS ABS 0.36 K/uL BASOPHILS ABS 0.16 (H) K/uL MORPHOLOGY RBC AND PLT MORPHOLOGY APPEAR NORMAL Platelet Estimate ADEQUATE Diff Comment Result: SLIDE SCANNED, AGREES WITH AUTOMATED RESULTS. Complete Metabolic Panel [[id number]] (Abnormal) Collected: 12/14/162144 Specimen Information: Blood Updated: 12/14/162219 SODIUM 125 (L) mmol/L POTASSIUM 5.1 (H) mmol/L CHLORIDE 93 (L) mmol/L CO2 23 mmol/L ANION GAP AGAP 14 mmol/L GLUCOSE 635 (HH) mg/dL BUN 13 mg/dL CREATININE 1.4 (H) mg/dL BUN/CREAT 10 CALCIUM 7.9 (L) mg/dL TOTAL PROTEIN 7.7 g/dL Albumin 2.6 (L) g/dL GLOBULIN 5.1 (H) g/dL A/G 0.5 (L) TBIL 0.6 mg/dL ALK PHOS 259 (H) U/L AST 17 U/L ALT 17 U/L EGFR 57 (L) mL/min/1.73m2 C-Reactive Protein [[id number]] (Abnormal) Collected: 12/14/162144 Specimen Information: Blood Updated: 12/14/162219 CRP 16.0 (H) mg/dL Sedimentation Rate (ESR) [[id number]] (Abnormal) Collected: 12/14/162144 Specimen Information: Blood Updated: 12/14/162208 ESR 130 (H) mm/Hr PROBLEM LIST Principal Problem: Osteomyelitis (HCC) Active Problems: Essential hypertension Type II diabetes mellitus, uncontrolled (HCC) Cellulitis and abscess of foot ASSESSMENT & PLAN Impression patient is 51 y.o. male with significant past medical history of DM type 2 on insulin thera py, Hypertension who presents with left Foot pain, erythema and swelling for 7-10 days, and positive third toe dry gangrene Hx of PCN allergy MRI of the foot left, without Contras-diffuse forefoot soft tissue edema involving the subc utaneous tissues and intrinsic muscles of the foot. Positive phlegmon which appears to drai n to the skin on top of the third and fourth metatarsals. Probable osteomyelitis Assessment -Left foot pain, erythema, swelling. History and physical consistent with cellulitis and a bscess, and probable osteomyelitis. Positive dry gangrene in the third left toe. Currently hemodynamically stable -Foot cellulitis and abscess -Osteomyelitis -Hyperglycemia. Possible stress response from underlying infection -Diabetes mellitus type 2. On chronic insulin therapy with Lantus and NovoLog -Hypertension Plan Will admit to inpatient IVF Morning hospitalist to consult podiatry in AM-? Need for amputation Pain management Antiemetic therapy UA, urine culture, BC x 2 MRSA by PCR Wound culture MRI results as above IV Vancomycin and Levaquin. Further antibiotic titration pending culture results. Consider ID consult Lantus 20 units daily at bedtime NovoLog with meals Novolog Sliding-scale Wound care consult DVT GI prophylaxis Code status - DNR DNI - discussed with patient Disposition: Inpatient Code Status: No Order Primary Care Physician: Estrella Gallegos MD 12/15/2016 documented i n this encounter Procedure Notes Walter Fernandez - 12/15/2016 7:44 PM PDTFormatting of this note might be differen t from the original. Procedures signed by Walter Fernandez DPM at 12/16/16 1615 Author: Walter Fernandez DPM Service: Podiatry Author Type: Doctor of Podiatric [facility] Filed: 12/16/16 1615 Date of Service: 12/15/161943 Status: Signed Etl Architect: Walter Fernandez DPM (Doctor of Podiatric Medicine) [facility] Date of : 1965 DATE OF SERVICE December 15, 2016 PREOPERATIVE DIAGNOSIS Osteomyelitis, fourth ray, that is at the fourth toe and fourth metatarsal, left foot, with gangrene and cellulitis. POSTOPERATIVE DIAGNOSIS Osteomyelitis, fourth ray, that is at the fourth toe and fourth metatarsal, left foot, with gangrene and cellulitis. PROCEDURE Amputation of the second ray with debridement of necrotic and gangrenous tissue and second metatarsophalangeal joint and head. SURGEON Walter Fernandez DPM SPONGE PACKER None utilized. ANESTHESIA Endotracheal general, local ankle block consisting of 10 mL 0.5% Marcaine plain and no epin ephrine utilized. FINDINGS Findings are dictated in the body of the report. ESTIMATED BLOOD LOSS Less than 50 mL. COMPLICATIONS None. SPECIMENS Specimen sent for histopathology and cultures. CONDITION UPON DISCHARGE Stable. DESCRIPTION OF PROCEDURE Patient was brought to the OR, placed upon the OR table where the anesthesiologist administ ered IV sedation induction and endotracheal airway inserted. The left ankle was then blocked with approximately 10 mL of 0.5% Marcaine plain. Next the left foot and lower extremity wer e prepped and draped in the usual sterile manner. Timeout was then performed. Correct surgical site, procedure, and patient were all verified , protocol followed. Incision was then made in the dorsum of the fourth metatarsal across necrotic tissue, down to the base of the fourth toe. This incision was carried down in a teardrop fashion across t he base of the toe, back up to the dorsal fourth MPJ. The incision was then deepened. The ne crotic tissue was cut through. This was significant and malodorous. The fourth MPJ was then entered. This was also necrotic. Clearly the base of the fourth toe was necrotic. This was d isarticulated and necrotic tissue was then removed. Dorsal skin had quite a bit of necrosis, approximately 10 cm dorsal and 5 cm across. The metatarsal head was then inspected and prob ed. It was unclear if there was necrosis of bone, therefore the metatarsal head was removed with a bone saw. All sharp edges were rongeured. Remaining bone did appear to be hard and no rmal. The remainder of the tissue in the entire wound that was necrotic was removed. Plantar skin was also debrided. Most of this was partial thickness and full thickness. A pulse lava ge was used to irrigate tissue to exsanguinate as much pus as can be removed. At the end of the 3 L of pulse lavage, care was to debride any remaining necrotic tissue seen. Bleeders we re then bovied or controlled. Exsanguination of the foot and probing showed no additional pu s that was expressed and the remainder of tissue appeared to be viable. The tissue was also cultured, one initially at the incision and one near the metatarsal head. The toe and metata rsal head were also sent for pathology, to identify the condition of the bone for clear aleshia ins. The wound was then packed with saline moist dilute Betadine gauze, followed by dry gauz e packed. Abelardo wrap bandage for reinforcement. RECOVERY Patient tolerated this procedure and anesthesia well, presented to the PACU with all vital signs stable and blood sugars in the mid 100s. Patient will be readmitted on the floor and w ill receive medical treatment and infection control. P/ Jocelynn/adelina/[id number] WALTER FERNANDEZ DPM documented in t his encounter Consult Notes Conversion Transaction, Provider Unknown - 12/19/2016 2:10 PM PDTFormatting of this note m ight be different from the original. Consults by Rachael Molina RN at 12/19/16 200 Author: Rachael Molina RN Service: Wound/Ostomy Care Author Type: Registered Nurse Filed: 12/19/16 1411 Date of Service: 12/19/161409 Status: Signed Etl Architect: Rachael Molina RN (Registered Nurse) [facility] Service: Wound Care Hospital Day: LOS: 4 days Post-Op Day: 4 Days Post-Op SUBJECTIVE Patient Summary: NPWT dressing change to left foot. Possible discharge tomorrow. CM is working on approval of portable wound vac unit. Wound #1: Classification: Surgical Wound Location:left foot, 4th digit amputation site Drainage Amount:Scant Drainage Type:Sero-Sanguinous Wound Odor After Wound is Cleaned:None Periwound Skin:Erythema and Edema, improving Wound Size:7 (cm) Length, 3 (cm) Width and 2 (cm) Depth, callus excision area: 2 x 4 cm Wound Bed:Moist, Red and tendon visible. Wound Exam:open and tender Wound Infection:osteo A callus that was debrided to the plantar surface of the foot has now epithelialized. Brid ging a wound vac to this area could be potentially cause maceration to the surrounding tissu es. Aquacel AG followed by hydrocolloid as a secondary dressing was used. PROBLEM LIST Principal Problem: Osteomyelitis (HCC) Active Problems: Essential hypertension Type II diabetes mellitus, uncontrolled (HCC) Cellulitis and abscess of foot ASSESSMENT & PLAN Classification: Surgical Wound Negative Pressure Wound Therapy initiated/continued as follows: Newly initiated NPWT ?: no Number of foam pieces removed:4 NPWT Cycle: Continuous NPWT Foam Type: silver impregnated foam Number of Pieces :2 NPWT Contact Layer: Yes Number of Pieces: 1 NPWT Suction: 125 mmHg NPWT Canister Changed: new NPWT Frequency of Dressing Changes: Three times per week, Next dressing change due Discharge plan: [facility]. ANDREY Vargas working on getting patient a helen rity wound vac until patient's insurance approves a home portable unit. Thank you for this consult. Please call if there are any additional questions. Rachael Molina RN, CWON 2:10 PM 12/19/2016 onver ruben Transaction, Provider Unknown - 12/17/2016 4:53 PM PDT Consults by Rachael Molina RN at 12/17/16 1399 Author: Rachael Molina RN Service: Wound/Ostomy Care Author Type: Registered Nurse Filed: 12/17/16 1802 Date of Service: 12/17/16 1653 Status: Addendum Etl Architect: Rachael Molina RN (Registered Nurse) Related Notes: Original Note by Rachael Molina RN (Registered Nurse) filed at 12/17/16 1 707 Consult Orders: 1. Wound Care Evaluation and Treat [[id number]] ordered by Walter Fernandez DPM at 1722 [facility] Service: Wound Care Consult Note Hospital Day: LOS: 2 days Post-Op Day: 2 Days Post-Op SUBJECTIVE Patient Summary: Wound care consulted to place NPWT to recent amputation 4th digit on left foot. Patient also has a callus that has been removed to the plantar surface of his f oot that Dr. Fernandez is requesting we bridge vac foam to. OBJECTIVE Wound #1: Classification: Surgical Wound Location:left foot, 4th digit amputation site Drainage Amount:Scant Drainage Type:Sero-Sanguinous Wound Odor After Wound is Cleaned:None Periwound Skin:Erythema and Edema, improving Wound Size:7 (cm) Length, 3 (cm) Width and 2 (cm) Depth, callus excision area: 2 x 4 cm Wound Bed:Moist, Red and tendon visible. Callus pink and moist. Wound Exam:open and tender Wound Infection:osteo PROBLEM LIST Principal Problem: Osteomyelitis (HCC) Active Problems: Essential hypertension Type II diabetes mellitus, uncontrolled (HCC) Cellulitis and abscess of foot ASSESSMENT & PLAN Classification: Surgical Wound Negative Pressure Wound Therapy initiated/continued as follows: Newly initiated NPWT ?: yes Number of foam pieces removed: n/a NPWT Cycle: Continuous NPWT Foam Type: black foam Number of Pieces :4 NPWT Contact Layer: Yes Number of Pieces: 1 NPWT Suction: 125 mmHg NPWT Canister Changed: new NPWT Frequency of Dressing Changes: Three times per week, Next dressing change due Monday Discharge plan: Unknown at this time. Referral to CM so they are aware patient will need h ome wound vac therapy. Patient educated no weight bearing to left foot, or per Dr. Dilan mosley's orders. PT eval tomorrow. Thank you for this consult. Please call if there are any additional questions. Rachael Molina RN, CWON 4:53 PM 12/17/2016 ilan Walter mosley - 12/15/2016 4:19 PM PDT Consult* by Walter Fernandez DPM at 12/15/16 8449 Author: Walter Fernandez DPM Service: Podiatry Author Type: Doctor of Podiatric Medi cine Filed: 12/15/16 4283 Date of Service: 12/15/16 1619 Status: Signed Etl Architect: Walter Fernandez DPM (Doctor of Podiatric Medicine) [facility] Service: Podiatry Initial Consult Note Date of Admission: 12/14/2016 Reason for Consultation: osteomyelitis left 4th ray with sepsis. Requesting Physician: Dr. Kwabena Archer, Hospitalist History Obtained From: patient CHIEF COMPLAINT: Infected left foot HISTORY OF PRESENT ILLNESS The patient is 51 y.o. male with significant past medical history of ulcer that got infecte d and now is severe. Patient was seen in [place] by Dr. Raf DPM who told him to go to the hospital to get admitted. He has been NPO since this morning. REVIEW OF SYSTEMS Review of Systems Constitutional: Positive for fever, chills and fatigue. HENT: Negative. Eyes: Negative. Respiratory: Negative. Cardiovascular: Negative. Endocrine: Negative. Genitourinary: Negative. Allergic/Immunologic: Negative. Neurological: Positive for numbness. Past Medical History Diagnosis Date Diabetes mellitus, type 2 (HCC) Hypertension Past Surgical History Procedure Laterality Date Tonsillectomy Cataract extraction Vasectomy Bilateral Allergies Allergen Reactions Penicillins Hives Prescriptions prior to admission Medication Sig Dispense Refill Last Dose ciprofloxacin (CIPRO) 500 MG tablet Take 500 mg by mouth 2 (two) times daily. 12/15/19 17 at 0800 clindamycin (CLEOCIN) 300 MG capsule Take 300 mg by mouth every 6 (six) hours. 017 at 1700 insulin aspart (NOVOLOG FLEXPEN) 100 UNIT/ML injection [...] for Erectile Dysfunct ion. 10 tablet 11 Scheduled Medications enoxaparin 40 mg Subcutaneous Q24H [...] acetaminophen, dextrose, dextrose, dextrose, glucagon, glucagon, HYDRO morphone OR HYDROmorphone, ondansetron OR ondansetron, polyethylene glycol, zolpidem Family History Problem Relation Age of Onset Diabetes type II Maternal Grandfather Social History Social History Marital Status: Single Spouse Name: N/A Number of Children: N/A Years of Education: N/A Occupational History Not on file. Social History Main Topics Smoking status: Never Smoker Smokeless tobacco: Never Used Alcohol Use: No Drug Use: No Sexual Activity: Partners: Female Other Topics Concern Not on file Social History Narrative PHYSICAL EXAM Vital Signs: BP 128/73 mmHg | Pulse 90 | Temp(Src) 100 F (37.8 C) (Oral) | Resp 20 | Ht 1.778 m (5' 10") | Wt 89.177 kg (196 lb 9.6 oz) | BMI 28.21 kg/m2 | SpO2 99% Temp: [98 F (36.7 C)-100 F (37.8 C)] 99.5 F (37.5 C) (12/16 1631) BP: (120-151)/(71-89) 140/81 mmHg (12/15 163) Heart Rate: [83-113] 85 (12/15 163) Resp: [16-20] 20 (12/15 163) SpO2: [94 %-100 %] 99 % (12/15 1632) Height: [177.8 cm (5' 10")] 177.8 cm (5' 10") (12/15 033) Weight: [86.637 kg (191 lb)-89.177 kg (196 lb 9.6 oz)] 89.177 kg (196 lb 9.6 oz) (12/15 03 39) BMI (Calculated): [28.3] 28.3 (12/15 338) Physical Exam Constitutional: He is oriented to person, place, and time. He appears well-developed and we ll-nourished. HENT: Head: Normocephalic and atraumatic. Eyes: Pupils are equal, round, and reactive to light. Neck: Normal range of motion. Cardiovascular: Normal rate and regular rhythm. Pulses: Dorsalis pedis pulses are 1+ on the right side, and 1+ on the left side. Posterior tibial pulses are 1+ on the right side, and 1+ on the left side. Abdomina/Gl: Soft. Normal appearance. Musculoskeletal: Right ankle: He exhibits decreased range of motion. Right foot: There is decreased range of motion. Protective Sensation: 5 sites tested.0 sites sensed. Left foot: Protective Sensation: 5 sites tested. 0 sites sensed. Result: abnormal Lymphadenopathy: No LE lymphadenopathy Neurological: He is alert and oriented to person, place, and time. Skin: Psychiatric: He has a normal mood and affect. His speech is normal and behavior is normal. DATA CMP: Lab Results Component Value Date NA 134* 12/15/2016 K 4.6 12/15/2016 CL 103 12/15/2016 CO2 22* 12/15/2016 ANIONGAP 14 12/15/2016 GLUF 392* 12/15/2016 BUN 12 12/15/2016 CREATININE 1.0 12/15/2016 BCR 12 12/15/2016 CA 7.6* 12/15/2016 PROT 6.4 12/15/2016 ALB 2.2* 12/15/2016 GLOB 4.2 12/15/2016 BILITOT 0.6 12/15/2016 ALP 182* 12/15/2016 AST 9* 12/15/2016 ALT 16 12/15/2016 EGFR >60 12/15/2016 PROBLEM LIST Principal Problem: Osteomyelitis (HCC) Active Problems: Essential hypertension Type II diabetes mellitus, uncontrolled (HCC) Cellulitis and abscess of foot ASSESSMENT & PLAN Patient has serious infection of the 4th ray of the left foot with sepsis and necrosis. Am putation of the left 4th ray with I and D of all infected tissue made clear to patient and w ill be done this evening since he is NPO. It was explained that this is a salvage procedure and there is no guarantee that the procedure is definitive. Patient will continue on IV ab x and consulted with ID. Code Status: Full Code Primary Care Physician: Estrella Light Thank you for allowing me to participate in the care of this patient. WALTER FERNANDEZ DPM 12/15/2016 Antonia, Isak Messina MD - 12/15/2016 12:54 PM PDTFormatting of this note might be different from the origi nal. Consult* by Rebeca Russell MD at 12/15/16 1254 Author: Rebeca Russell MD Service: Infectious Disease Author Type: Physician Filed: 12/15/16 1803 Date of Service: 12/15/16 1254 Status: Addendum Etl Architect: Rebeca Russell MD (Physician) Related Notes: Original Note by Rebeca Russell MD (Physician) filed at 12/15/16 1800 [facility] Service: Infectious Disease Initial Consult Note Date of Admission: 12/14/2016 Reason for Consultation: Diabetic left foot infection with abscess and possible osteomyeli tis Requesting Physician: Dr. Dell Archer, Hospitalist History Obtained From: patient, chart review CHIEF COMPLAINT: Left foot swelling, ulcer, necrosis and redness HISTORY OF PRESENT ILLNESS The patient is a 51 y.o. male with significant past medical history of type 2 diabetes whitney itus, hypertension, history of hives with penicillin. On [...] cough, chest pain or shortness of breath. REVIEW OF SYSTEMS Review of Systems Review of systems is limited with patient not fully interactive for the clinical encounter; information that could be gleaned from chart review and from the patient had been summarize d as above Past Medical History Diagnosis Date Diabetes mellitus, type 2 (HCC) Hypertension Past Surgical History Procedure Laterality Date Tonsillectomy Cataract extraction Vasectomy Bilateral Allergies Allergen Reactions Penicillins Hives Prescriptions prior to admission Medication Sig Dispense Refill Last Dose ciprofloxacin (CIPRO) 500 MG tablet Take 500 mg by mouth 2 (two) times daily. 12/15/19 17 at 0800 clindamycin (CLEOCIN) 300 MG capsule Take 300 mg by mouth every 6 (six) hours. 017 at 1700 insulin aspart (NOVOLOG FLEXPEN) 100 UNIT/ML injection [...] for Erectile Dysfunct ion. 10 tablet 11 Scheduled Medications enoxaparin 40 mg Subcutaneous Q24H famotidine 20 mg Oral BID Or famotidine 20 mg Intravenous BID insulin glargine 20 Units Subcutaneous Nightly insulin lispro (human) 0-14 Units Subcutaneous TID AC insulin lispro (human) 0-7 Units Subcutaneous Nightly insulin lispro (human) 15 Units Subcutaneous TID AC levofloxacin 750 mg Intravenous Q24H vancomycin 17 mg/kg Intravenous Q12H Continuous Infusions dextrose sodium chloride (IV) 110 mL/hr at 12/15/16 0529 PRN Medications acetaminophen OR acetaminophen, dextrose, dextrose, dextrose, glucagon, glucagon, HYDRO morphone OR HYDROmorphone, ondansetron OR ondansetron, polyethylene glycol, zolpidem Family History Problem Relation Age of Onset Diabetes type II Maternal Grandfather Social History Social History Marital Status: Single Spouse Name: N/A Number of Children: N/A Years of Education: N/A Occupational History Not on file. Social History Main Topics Smoking status: Never Smoker Smokeless tobacco: Never Used Alcohol Use: No Drug Use: No Sexual Activity: Partners: Female Other Topics Concern Not on file Social History Narrative PHYSICAL EXAM Vital Signs: BP 128/73 mmHg | Pulse 90 | Temp(Src) 100 F (37.8 C) (Oral) | Resp 20 | Ht 1.778 m (5' 10") | Wt 89.177 kg (196 lb 9.6 oz) | BMI 28.21 kg/m2 | SpO2 99% Temp: [98 F (36.7 C)-100 F (37.8 C)] 100 F (37.8 C) (12/15 1129) BP: (120-151)/(71-89) 128/73 mmHg (12/15 1129) Heart Rate: [83-113] 90 (03/16 1129) Resp: [16-20] 20 (12/15 1128) SpO2: [94 %-100 %] 99 % (12/15 1128) Height: [177.8 cm (5' 10")] 177.8 cm (5' 10") (12/15 338) Weight: [86.637 kg (191 lb)-89.177 kg (196 lb 9.6 oz)] 89.177 kg (196 lb 9.6 oz) (12/15 03 39) BMI (Calculated): [28.3] 28.3 (12/15 338) Physical Exam Vital signs have been reviewed Gen.: Appears fatigued, not in acute distress HEENT: Normocephalic. Anicteric sclera. No visible or labial lesions. No palpable neck mass es Lungs: No adventitious breath sounds Cardiovascular: Normal rate. Regular rhythm. No murmur or rubs Abdomen: No distention. Soft. No tenderness or palpable masses Skin: No diffuse rash Left foot: Gangrene is noted at the fourth toe with pus noted. There is skin maceration wit h ulcer probing to bone. There is left foot cellulitis going to the level of the patient's a nkle. No lymphangitic streaking is noted at the left leg. Dorsalis pedis pulses palpable. Neurologic: Oriented 3. Appears to be able to move all extremities Psychiatric: Acting annoyed during the clinical encounter DATA CBC: Lab Results Component Value Date WBC 16.87* 12/15/2016 RBC 4.04* 12/15/2016 HGB 11.4* 12/15/2016 HCT 35.1* 12/15/2016 MCV 86.7 12/15/2016 MCH 28.2 12/15/2016 MCHC 32.5 12/15/2016 RDW 42.0 12/15/2016 PLT 262 12/15/2016 MPV 8.4 12/15/2016 DIFFTYPE AUTOMATED 12/15/2016 WBC: Lab Results Component Value Date WBC 16.87* 12/15/2016 NEUTROABS 13.94* 12/15/2016 LYMPHSABS 1.26 12/15/2016 LYMPHOPCT 7.47 12/15/2016 MONOPCT 6.29 12/15/2016 EOSABS 0.56* 12/15/2016 EOSPCT 3.29 12/15/2016 BASOSABS 0.06 12/15/2016 BASOPCT 0.35 12/15/2016 PLTEST ADEQUATE 12/14/2016 COMDIFF SLIDE SCANNED, AGREES WITH AUTOMATED RESULTS. 12/14/2016 CMP: Lab Results Component Value Date NA 134* 12/15/2016 K 4.6 12/15/2016 CL 103 12/15/2016 CO2 22* 12/15/2016 ANIONGAP 14 12/15/2016 GLUF 392* 12/15/2016 BUN 12 12/15/2016 CREATININE 1.0 12/15/2016 BCR 12 12/15/2016 CA 7.6* 12/15/2016 PROT 6.4 12/15/2016 ALB 2.2* 12/15/2016 GLOB 4.2 12/15/2016 BILITOT 0.6 12/15/2016 ALP 182* 12/15/2016 AST 9* 12/15/2016 ALT 16 12/15/2016 EGFR >60 12/15/2016 U/A: Lab Results Component Value Date CLARITYU CLEAR 12/15/2016 LEUKOCYTESUR NEGATIVE 12/15/2016 NITRITE NEGATIVE 12/15/2016 UROBILINOGEN NORMAL 12/15/2016 UPRO NEGATIVE 12/15/2016 PHUR 6.0 12/15/2016 BLOODU NEGATIVE 12/15/2016 KETONES NEGATIVE 12/15/2016 BILIRUBINUR NEGATIVE 12/15/2016 GLUCOSEU >500* 12/15/2016 HgBA1c: Lab Results Component Value Date HGBA1C 11.7* 12/15/2016 LABGLYC 289 12/15/2016 Lab Results Component Value Date CRP 16.0* 12/14/2016 Lab Results Component Value Date ESR 130* 12/14/2016 Microbiology Data: 12/15 MRSA nasal PCR 12/15 Wound culture in process 12/15 Blood cultures in process 12/15 Urine culture in process Radiology Data: Impression 1. Abnormal area of [...] Dec 15 2016 9:30AM Referring Provider Line: [phone] ID: [id number] MRI foot left without contrast [[id number]] PROBLEM LIST Principal Problem: Osteomyelitis (HCC) Active Problems: Essential hypertension Type II diabetes mellitus, uncontrolled (HCC) Cellulitis and abscess of foot ASSESSMENT & PLAN Sepsis secondary to left diabetic foot infection: He has cellulitis, gangrene and osteomyel itis involving the fourth toe -ABG is currently being repeated with results showing profound acidosis -MRSA nasal PCR is positive. Blood and wound cultures are in process -Continue vancomycin with target trough of 15-20; appreciate pharmacy assistance with kelsey frias. I will replace levofloxacin with meropenem for broad gram-negative and anaerobic coverag e in a patient with uncontrolled diabetes -Podiatry has been consulted regarding potential for foot salvage -I will defer specifics of glycemic control, fluid electrolyte management to Dr. Archer History of penicillin allergy Case discussed with Dr. Archer after clinical encounter *Addendum: Component Latest Ref Rng 12/14/2016 12/15/2016 10:40 PM 12:56 PM Lactate, Irvin 0.4 - 2.0 mmol/L 1.0 0.8 Component Latest Ref Rng 12/14/2016 12/15/2016 12/15/2016 10:57 PM 6:53 AM 1:21 PM pH, Arterial 7.350 - 7.450 7.315 (L) 6.828 (LL) 7.384 pCO2 35 - 45 mmHg 43 56 (H) 32 (L) pO2 80 - 105 mmHg 73 (L) 74 (L) 81 POC LACTATE 0.36 - 1.25 mmol/L 7.11 (H) <0.30 (L) HCO3, Arterial 22 - 26 mmol/L 22 9 (L) 19 (L) POC TCO2 23 - 27 mEq/L 23 11 (L) 20 (L) POC BASE DEFICIT 0.0 - 2.0 mmol/L 5 (H) 25 (H) 6 (H) O2 Sat, Arterial 95 - 98 % 93 (L) 77 (L) 96 POC FIO2 21 100 21 Code Status: Full Code Primary Care Physician: Estrella Light Thank you for allowing me to participate in the care of this patient. REBECA RUSSELL MD 12/15/2016 onversion Ledesma saction, Provider Unknown - 12/15/2016 10:57 AM PDTFormatting of this note might be differen t from the original. Consults by Chase Edouard RN at 12/15/16 1057 Author: Chase Edouard RN Service: Wound/Ostomy Care Author Type: Registered Nurse Filed: 12/15/16 1100 Date of Service: 12/15/16 1057 Status: Signed Etl Architect: Chase Edouard RN (Registered Nurse) Consult Orders: 1. Wound Care Evaluation and Treat [[id number]] ordered by Pavel Gallegos MD at 0313 [facility] Service: Wound Care Consult Note Hospital Day: LOS: 0 days Post-Op Day: * No surgery found * SUBJECTIVE Patient Summary: Wound care presents to evaluate gangrenous toes with likely osteo OBJECTIVE Will wait to evaluate PROBLEM LIST Principal Problem: Osteomyelitis (HCC) Active Problems: Essential hypertension Type II diabetes mellitus, uncontrolled (HCC) Cellulitis and abscess of foot ASSESSMENT & PLAN Patient has podiatry consult pending and possible pending amputation. Wound care will foll ow this case after surgery has been decided and provide services if needed. We will follow up on 12/17/16. Thank you for allowing me to participate in the care of this patient. Please call if there are any additional questions. Chase Edouard RN 10:57 AM 12/15/2016 ] docume nted in this encounter ED Notes Conversion Transaction, Provider Unknown - 12/14/2016 11:42 PM PDTFormatting of this note m ight be different from the original. ED Notes by Erick Beatty RN at 12/14/16 5922 Author: Erick Beatty RN Service: (none) Author Type: Registered Nurse Filed: 12/15/1622 Date of Service: 12/14/162341 Status: Signed Etl Architect: Erick Beatty RN (Registered Nurse) Pt given crackers and OJ per PROSPER Gerard RN 12/15/1622 onver ruben Transaction, Provider Unknown - 12/14/2016 10:27 PM PDT ED Notes by Trevor Cristobal at 12/14/162226 Author: Trevor Cristobal Service: Emergency Department Author Type: Assistant Buyer Filed: 12/14/162228 Date of Service: 12/14/162226 Status: Signed Etl Architect: Trevor Cristobal (Scientific Software Engineer) Received records from [facility]. Given to JENNIFER Dickson. Trevor Cristobal 12/14/162228 onver ruben Transaction, Provider Unknown - 12/14/2016 10:07 PM PDT ED Notes by Trevor Cristobal at 12/14/162206 Author: Trevor Cristobal Service: Emergency Department Author Type: Assistant Buyer Filed: 12/14/162207 Date of Service: 12/14/162206 Status: Signed Etl Architect: Trevor Cristobal (Scientific Software Engineer) Spoke with [facility] Emergency Department. They will send records from this past weekend to our facility. Trevor Cristobal 12/14/162207 onver ruben Transaction, Provider Unknown - 12/14/2016 9:53 PM PDT ED Notes by Robbie Rizo RN at 12/14/162152 Author: Robbie Rizo RN Service: (none) Author Type: Registered Nurse Filed: 12/15/1615 Date of Service: 12/14/162152 Status: Addendum Etl Architect: Robbie Rizo RN (Registered Nurse) Related Notes: Original Note by Robbie Rizo RN (Registered Nurse) filed at 12/14/16 2 350 Patient states he "walked a lot" on 12/07, noticed a blister and pain. Was seen at [facility] on 12/09 and received IV antibiotics and rx for PO antibiotics. Wound has progressed since. Ciprofloxacin 500mg bid, clindamycin 300mg qid. Robbie Rizo RN 12/15/16 0016 onver ruben Transaction, Provider Unknown - 12/14/2016 9:32 PM PDT ED Notes by Robbie Rizo RN at 12/14/162131 Author: Robbie Rizo RN Service: (none) Author Type: Registered Nurse Filed: 12/14/162132 Date of Service: 12/14/162131 Status: Signed Etl Architect: Robbie Rizo RN (Registered Nurse) "I was walking and I couldn't feel it, it became a blister." Patient states toe turned rebeka k 4 days after initial injury. Robbie Rizo RN 12/14/162132 Yessi Fierro PA-C - 12/14/2016 9:21 PM PDTFormatting of this note might be different from the o riginal. ED Provider Notes by Yessi Zamora PA-C at 12/14/162120 Author: Yessi Zamora PA-C Service: Emergency Department Author Type: Physician Motor Vehicle Emissions Inspector - Certified Filed: 12/15/16 0844 Date of Service: 12/14/162120 Status: Attested Etl Architect: Yessi Zamora PA-C (Physician Motor Vehicle Emissions Inspector - Certified) Cosigner: Bridger Murillo DO at 12/18/162102 Attestation signed by Bridger Murillo DO at 12/18/162102 I have reviewed the note and supervised the mid-level provider. Procedures [facility] [address]TH FLOOR [place] History of Present Illness Patient Identification Kuldip Smith is a 51 y.o. male. Patient information was obtained from patient. History/Exam limitations: none. Patient presented to the Emergency Department by: Car Chief Complaint Chief Complaint Patient presents with Foot Swelling left foot ulcer to left foot per PA. 4th toe necrotic , swollen and red up to ankle. The patient complains of LEFT FOOT PAIN. BLACK DISCOLORATION LEFT 4TH TOE Onset of symptoms was 6 days ago , with a worsening course since that time. The symptoms are described to be of severe in Severity.pain 9/10 The patient also complains of pain redness swelling and d rainage from left foot/toes. The patient describes the quality and location of the symptoms as the following: sharp Care prior to arrival consisted of antibiotics x2 days by pcp from [facility] in [place] , with out Relief. Pt state he fell on porch and hit left foot 6 days ago Hx of insulin dep diabetics. Hasnt used insulin a in a couple of days doesn't check his sug ars Uses novolog 12 units before meals, lantus 25 units q hs Denies fevers chills or other symptoms PCP; Estrella CHENG at [facility] [place] Endo: Darcie Past Medical History Diagnosis Date Diabetes mellitus, type 2 (HCC) Hypertension Past Surgical History Procedure Laterality Date Tonsillectomy Cataract extraction Vasectomy Bilateral Prior to Admission medications Medication Sig Start Date End Date Taking? Authorizing Provider cyanocobalamin (VITAMIN B-12) 100 MCG tablet Take 100 mcg by mouth daily. Historical Pro vider insulin aspart (NOVOLOG FLEXPEN) 100 UNIT/ML injection Inject 15 Units into the skin 3 (thr ee) times daily before meals. Historical Provider insulin glargine (LANTUS SOLOSTAR) 100 UNIT/ML injection Inject 20 Units into the skin nigh tly. Historical Provider lisinopril (ZESTRIL) 20 MG tablet Take 1 tablet by mouth daily. 06/08/16 Jose Pizarro lisinopril (ZESTRIL) 20 MG tablet Take 1 tablet by mouth daily. 06/08/16 Jose Pizarro loperamide (IMODIUM) 2 MG capsule Take 2 mg by mouth 4 (four) times daily as needed for Mayra rrhea. Historical Provider magnesium oxide (MAG-OX) 400 MG tablet Take 400 mg by mouth daily. Historical Provider sildenafil (VIAGRA) 50 MG tablet Take 1 tablet by mouth as needed for Erectile Dysfunction. 06/08/16 07/08/16 William Sprague MD sulfamethoxazole-trimethoprim (BACTRIM DS) 800-160 MG per tablet Take 1 tablet by mouth 2 ( two) times daily. Historical Provider Allergies Allergen Reactions Penicillins Hives Social History Social History Marital Status: Single Spouse Name: N/A Number of Children: N/A Years of Education: N/A Occupational History Not on file. Social History Main Topics Smoking status: Never Smoker Smokeless tobacco: Never Used Alcohol Use: No Drug Use: No Sexual Activity: Partners: Female Other Topics Concern Not on file Social History Narrative Family History Problem Relation Age of Onset Diabetes type II Maternal Grandfather ROS Review of Systems Constitutional: Negative for: fever, chills, fatigue, sweats or weight loss HEENT: Negative for: symptoms Cardiovascular/Respiratory: Negative for: chest pain, shortness of breath, cough Gastrointestinal: Negative for: abdominal pain, vomiting, diarrhea, black or bloody stools Genitourinary: Negative for: dysuria, hematuria, urinary problems Musculoskeletal: Positive for: left foot pain and 4th toe is black in color Skin: Positive for: 4th toe black discoloration, rest of toes are swollen red and warm, anterior foot is red warm and open wound, yellow foul odor, plantar surface moist white disc oloration Neuro and psych: Negative for: fainting, head injury, seizure, trouble walking Endocrine/Heme/Lymph: Negative for: swollen lymph nodes, easy bruising Physical Exam BP 128/71 mmHg | Pulse 113 | Temp(Src) 98 F (36.7 C) (Oral) | Resp 16 | Wt 86.637 kg (1 91 lb) | SpO2 98% Pulse Oximetry interpretation: Normal tachycardic 113 General: Alert, in mod apparent distress Eyes: Normal inspection, pupils equal and round, non-icteric ENT: Ears TMS without erythema Nose without congestion Pharynx without erythema Neck: Normal inspection Supple No lymphadenopathy Cardiovascular: Rate and rhythm normal Respiratory: Breath sounds normal bilaterally Abdomen: Soft, non-tender Back: Normal inspection Left foot: All toes swollen 4th toe is black in discoloration, painful to [...] also to medial/lateral ankle with mild swelling Neuro: No motor deficit No sensory deficit Antalgic gait ED Course Medical Decision Making and Emergency Department Course ED Department Course Presents with left foot pain and 4th toe that is black in color, insulin dep diabetic who h as not been taking his insulin, seen pcp on [facility] and told come here for furthe r evaluation. Diff dx osteomyelitis, cellulitis, will treat pain, check cbc cmp lactic acid Called Radiologist Dr Cutler regarding CT of foot, he rec MRI of foot without contrast 2220 critical lab value from lab: glucose 635 Insulin 10units IV, serumketones added on,li ter of fluid ordered MRI left foot ordered 2225 CBC WBC 19.46, H&H 12.4 & 36.3 CMP Na+ 125,K+ 5.1,glucose 635, creatinine 1.4, alk ph os 259 crp 16.0 esr 130 , lactic added on will give insulin IV and IvFLuids 2340 repeat glucose 172, Later notified . He has rec'd 2 liters of IVFluids 2345 to MRI 0020 Returns from MRI 0107 MRI results -probable osteomyelitis discussed with pt, I rec admission and he agrees. 0120 bed request, hospitalist paged, repeat CMP and bedside glucose 0123 repeat glucose 258 - he ate crackers and had juice 0135 Dr Dumont called, case discussed, he will come and see pt, pt remains updated. 0230 recheck, no left foot pain, Dr Dumont @BS Records Reviewed Nursing notes. Labs & Radiology Results Laboratory Evaluation Results Procedure Component Value Ref Range Date/Time Complete Metabolic Panel [[id number]] (Abnormal) Collected: 12/15/169 Order Status: Completed Specimen Information: Blood Updated: 12/15/16 0205 SODIUM 134 (L) 135 - 145 mmol/L POTASSIUM 4.0 3.5 - 4.9 mmol/L CHLORIDE 104 99 - 109 mmol/L CO2 21 (L) 23 - 32 mmol/L ANION GAP AGAP 13 5 - 20 mmol/L GLUCOSE 254 (H) 65 - 99 mg/dL BUN 12 8 - 25 mg/dL CREATININE 0.95 0.70 - 1.30 mg/dL BUN/CREAT 13 CALCIUM 6.9 (L) 8.5 - 10.5 mg/dL TOTAL PROTEIN 6.3 6.3 - 8.2 g/dL Albumin 2.1 (L) 3.6 - 5.0 g/dL GLOBULIN 4.2 1.3 - 4.9 g/dL A/G 0.5 (L) 1.0 - 2.4 TBIL 0.4 0.1 - 1.5 mg/dL ALK PHOS 181 (H) 35 - 115 U/L AST 10 10 - 45 U/L ALT 14 10 - 65 U/L EGFR >60 >60 mL/min/1.73m2 Blood Culture Set 1 [[id number]] Collected: 12/14/162139 Order Status: Sent Specimen Information: Blood from Blood Updated: 12/15/1627 Blood Culture Set 2 [[id number]] Collected: 12/14/162239 Order Status: Sent Specimen Information: Blood from Blood Updated: 12/15/1627 Septic Lactic Acid [[id number]] Collected: 12/14/162239 Order Status: Completed Updated: 12/14/162348 LACTIC ACID 1.0 0.4 - 2.0 mmol/L POC Arterial Blood Gas [[id number]] (Abnormal) Collected: 12/14/162256 Order Status: Completed Updated: 12/14/16 230 POC FIO2 21 % pH, Art 7.315 (L) 7.350 - 7.450 POC PCO2 43 35 - 45 mmHg POC p02 73 (L) 80 - 105 mmHg POC HCO3 22 22 - 26 mmol/L POC TCO2 23 23 - 27 mEq/L POC BASE DEFICIT 5 (H) 0.0 - 2.0 mmol/L POC S02 93 (L) 95 - 98 % Ketones,Serum [[id number]] Collected: 12/14/162144 Order Status: Completed Updated: 12/14/162229 KETONES,SERUM NEGATIVE NEGATIVE CBC w Auto Diff [[id number]] (Abnormal) Collected: 12/14/162144 Order Status: Completed Specimen Information: Blood Updated: 12/14/162221 WBC 19.46 (H) 3.80 - 11.00 K/uL RBC 4.20 4.20 - 5.70 M/uL HGB 12.4 (L) 13.2 - 17.0 g/dL HCT 36.3 (L) 39.0 - 50.0 % MCV 86.5 80.0 - 100.0 fl MCH 29.4 27.0 - 34.0 pg MCHC 34.0 32.0 - 35.5 g/dL RDW SD 42.9 37 - 53 fl PLT 258 150 - 400 K/uL MPV 8.3 fl DIFF TYPE AUTOMATED NEUTROPHILS 87.43 % LYMPHOCYTES 5.56 % MONOCYTES 4.36 % EOSINOPHILS 1.84 % BASOPHILS 0.81 % NEUTROPHILS ABS 17.02 (H) 1.90 - 7.40 K/uL LYMPHOCYTES ABS 1.08 1.00 - 3.90 K/uL MONOCYTES ABS 0.85 (H) 0.00 - 0.80 K/uL EOSINOPHILS ABS 0.36 0.00 - 0.50 K/uL BASOPHILS ABS 0.16 (H) 0.00 - 0.10 K/uL MORPHOLOGY RBC AND PLT MORPHOLOGY APPEAR NORMAL Platelet Estimate ADEQUATE Diff Comment Result: SLIDE SCANNED, AGREES WITH AUTOMATED RESULTS. Complete Metabolic Panel [[id number]] (Abnormal) Collected: 12/14/162144 Order Status: Completed Specimen Information: Blood Updated: 12/14/162219 SODIUM 125 (L) 135 - 145 mmol/L POTASSIUM 5.1 (H) 3.5 - 4.9 mmol/L CHLORIDE 93 (L) 99 - 109 mmol/L CO2 23 23 - 32 mmol/L ANION GAP AGAP 14 5 - 20 mmol/L GLUCOSE 635 (HH) 65 - 99 mg/dL BUN 13 8 - 25 mg/dL CREATININE 1.4 (H) 0.70 - 1.30 mg/dL BUN/CREAT 10 CALCIUM 7.9 (L) 8.5 - 10.5 mg/dL TOTAL PROTEIN 7.7 6.3 - 8.2 g/dL Albumin 2.6 (L) 3.6 - 5.0 g/dL GLOBULIN 5.1 (H) 1.3 - 4.9 g/dL A/G 0.5 (L) 1.0 - 2.4 TBIL 0.6 0.1 - 1.5 mg/dL ALK PHOS 259 (H) 35 - 115 U/L AST 17 10 - 45 U/L ALT 17 10 - 65 U/L EGFR 57 (L) >60 mL/min/1.73m2 C-Reactive Protein [[id number]] (Abnormal) Collected: 12/14/162144 Order Status: Completed Specimen Information: Blood Updated: 12/14/162219 CRP 16.0 (H) <0.5 mg/dL Sedimentation Rate (ESR) [[id number]] (Abnormal) Collected: 12/14/162144 Order Status: Completed Specimen Information: Blood Updated: 12/14/162208 ESR 130 (H) 0 - 15 mm/Hr Radiology and EKG Evaluation Imaging Results MRI foot left without contrast (Preliminary result) Result time: 12/15/16 00:40:08 Preliminary result by Rad Results In [place] (12/15/16 00:40:08) Narrative: Preliminary [facility] radiology report: 1. Diffuse forefoot soft tissue edema involving the subcutaneous tissues and intrinsic musc les of the foot, consistent with cellulitis/myositis in the proper clinical setting. There i s a phlegmon or abscess which appears to drain to the skin on top of the third and fourth me tatarsals, grossly measuring up to 4 x 4 x 1 cm. 2. Exam positive for probable osteomyelitis, worst involving the middle phalanx of the four th toe. Please followup with the final report to be performed by a [facility] specialist in the morning. Read by Ricki Wynn MD on Dec 15 2016 12:40AM Diagnosis & Disposition ED Diagnoses Final diagnoses Osteomyelitis of foot, left, acute (HCC) Uncontrolled type 2 diabetes mellitus with hyperglycemia, unspecified intermediate teacher insulin us e status (HCC) Renal insufficiency Disposition: ED Disposition Admit/Observation Requested Unit:: Acute Care Bed request special needs: None Diagnosis: Osteomyelitis left foot uncontrolled diabetes renal insufficiency Yessi Zamora PA-C 12/15/16 0844 Bridger Murillo DO 12/18/162102 documented in this e ncounter Miscellaneous Notes Op Note - Walter Fernandez - 12/15/2016 7:41 PM PDTFormatting of this note might b e different from the original. Op Note by Walter Fernandez DPM at 12/15/161940 Author: Walter Fernandez DPM Service: Podiatry Author Type: Doctor of Podiatric [facility] Filed: 12/15/161945 Date of Service: 12/15/161940 Status: Signed Etl Architect: Walter Fernandez DPM (Doctor of Podiatric Medicine) [facility] Service: Podiatry Operative Note Pre-operative Diagnosis: Osteomyelitis 4th ray left foot Post-operative Diagnosis: Same Procedure(s): Amputation 4th ray left Surgeon: WALTER FERNANDEZ DPM Motor Vehicle Emissions Inspector(s): none Anesthesia: General endotrachial anesthesia Estimated Blood Loss: Less Than 50 ml Other: Not applicable Indications: See pre-operative history and physical. Findings: Dictated in report Complications: none Description of Procedure: Amputation of left 2nd ray with culture and speciman sent and cu ltures. Condition: Stable WALTER FERNANDEZ DPM 12/15/2016 lan of Care - Dell Archer DO - 12/15/2016 12:57 PM PDTFormatting of this note might be different from t betzy original. Plan of Care by Dell Archer DO at 12/15/16 1257 Author: Dell Archer DO Service: Hospitalist Author Type: Physician Filed: 12/15/16 1302 Date of Service: 12/15/16 1257 Status: Addendum Etl Architect: Dell Archer DO (Physician) Related Notes: Original Note by Dell Archer DO (Physician) filed at 12/15/16 1301 I saw and examined the patient L foot appears to have wet gangrene Patient is AOx3 and in NAD Spouse (I assume) present at bedside. I asked what her relationship to him was and she woul dn't say. Overall patient and spouse (?) are very unhelpful and focused on complaining about poor car e. They refused to answer my questions about what the issues are specifically and what we co uld do better. They asked me several times to leave the room and just let him rest. At first I insisted on evaluating him because of some concerning lab values. Once I was satisfied of the patient's current clinical condition, I did leave when they again asked me to leave the m alone. ABG and lactic acid from 7 AM with critical values are noted. Unclear circumstances or to w alexei the ABG was reported (not to me). I have ordered STAT ABG, lactic acid. I have consulted Dr Russell. I have consulted Dr Celaya. Patient to remain NPO for possible I&D / until podiatry eval. Dell Archer DO 12/15/2016 1:01 PM documented in this enc ounter Plan of Treatment Not on filedocumented as [...] | + +--------+ + + + | AMARI TROUGH | Routin | 12/17/2016 | | [...] | Fingerstick | performed at [facility] | | LAB | | | | [address];[place], [place] | | | | | | [id number] | | | | + + + [...] EXTERNAL | | | | performed at [facility];[address] | | LAB | | | | [address];[place] | | | | | | [id number] | | | | + + + [...] EXTERNAL | | | | performed at [facility];[address] | K/uL | LAB | | | | [address];[place] | | | | | | [id number] | | | | + + + + + + | Non- | 4.00 (L)Comment: Testing | 4.20 - 5.70 | EXTERNAL | | | Red Blood | performed at [facility];[address] | M/uL | LAB | | | Cells | [address];[place] | | | | | Counted | [id number] | | | | + + + + + + | Hemoglobin | 11.6 (L)Comment: Testing | 13.2 - 17.0 | EXTERNAL | | | | performed at [facility];[address] | g/dL | LAB | | | | [address];[place] | | | | | | [address] | | | | + + + + + + | Hematocrit, | 33.9 (L)Comment: Testing | 39.0 - 50.0 % | EXTERNAL | | | POC | performed at [facility] | | LAB | | | | [address];[place] | | | | | | [address] | | | | + + + + + + | MCV | 84.7Comment: Testing | 80.0 - 100.0 fl | EXTERNAL | | | | performed at [facility];[address] | | LAB | | | | [address];[place] | | | | | | [address] | | | | + + + + + + | MCH | 28.9Comment: Testing | 27.0 - 34.0 pg | EXTERNAL | | | | performed at [facility];[address] | | LAB | | | | [address];[place] | | | | | | [address] | | | | + + + + + + | MCHC | 34.1Comment: Testing | 32.0 - 35.5 | EXTERNAL | | | | performed at [facility];888 | g/dL | LAB | | | | [address];[place] | | | | | | [address] | | | | + + + + + + | RDW-CV | 42.0Comment: Testing | 37 - 53 fl | EXTERNAL | | | | performed at [facility];[address] | | LAB | | | | [address];[place] | | | | | | [address] | | | | + + + + + + | Platelet | 392Comment: Testing | 150 - 400 K/uL | EXTERNAL | | | Count | performed at [facility];888 | | LAB | | | Plasma | [address];[place] | | | | | | [address] | | | | + + + + + + | MPV | 7.0Comment: Testing | fl | EXTERNAL | | | | performed at [facility];[address] | | LAB | | | | [address];[place] | | | | | | [address] | | | | + + + + + + | Differentia | MANUALComment: Testing | | EXTERNAL | | | l Type | performed at [facility];[address] | | LAB | | | | [address];[place] | | | | | | [address] | | | | + + + + + + | Segmented | 69Comment: Testing | % | EXTERNAL | | | Neutrophils | performed at [facility];888 | | LAB | | | Manual | [address];[place] | | | | | | [address] | | | | + + + + + + | Lymphocytes | 21Comment: Testing | % | EXTERNAL | | | Manual | performed at [facility];[address] | | LAB | | | | [address];[place] | | | | | | [address] | | | | + + + + + + | Monocytes | 4Comment: Testing | % | EXTERNAL | | | Manual | performed at [facility];[address] | | LAB | | | | [address];[place] | | | | | | [address] | | | | + + + + + + | Eosinophils | 6Comment: Testing | % | EXTERNAL | | | Manual | performed at [facility];[address] | | LAB | | | | [address];[place] | | | | | | [address] | | | | + + + + + + | Absolute | 5.08Comment: Testing | 1.90 - 7.40 | EXTERNAL | | | Neutrophils | performed at [facility];888 | K/uL | LAB | | | | [address];[place] | | | | | | [address] | | | | + + + + + + | Absolute | 1.55Comment: Testing | 1.00 - 3.90 | EXTERNAL | | | Lymphocytes | performed at [facility];888 | K/uL | LAB | | | | [address];[place] | | | | | | [address] | | | | + + + + + + | Absolute | 0.29Comment: Testing | 0.00 - 0.80 | EXTERNAL | | | Monocytes | performed at [facility];888 | K/uL | LAB | | | | [address];[place] | | | | | | [address] | | | | + + + + + + | Absolute | 0.44Comment: Testing | 0.00 - 0.50 | EXTERNAL | | | Eosinophils | performed at [facility];888 | K/uL | LAB | | | | [address];[place] | | | | | | [address] | | | | + + + + + + | RBC | NORMALComment: Testing | | EXTERNAL | | | Morphology | performed at [facility] | | LAB | | | | [address];[place], [place] | | | | | | [address] | | | | + + + [...] EXTERNAL | | | | performed at [facility] | | LAB | | | | [address] [facility];[place], [place] | | | | | | [address] | | | | + + + [...] | Fingerstick | performed at [facility];[address] | | LAB | | | | [address];[place] | | | | | | [address] | | | | + + + [...] | Fingerstick | performed at [facility] | | LAB | | | | [address];[place], [place] | | | | | | [address] | | | | + + + [...] | Fingerstick | performed at [facility];888 | | LAB | | | | [address];[place], [place] | | | | | | [address] | | | | + + + [...] | Fingerstick | performed at [facility];8 | | LAB | | | | [address];[place] | | | | | | [address] | | | | + + + [...] | Fingerstick | performed at [facility];888 | | LAB | | | | [address];[place] | | | | | | [address] | | | | + + + [...] | Fingerstick | performed at [facility];888 | | LAB | | | | [address];[place], [place] | | | | | | [address] | | | | + + + [...] | Fingerstick | performed at [facility];[address] | | LAB | | | | [address];[place], [place] | | | | | | [address] | | | | + + + [...] | Fingerstick | performed at [facility];888 | | LAB | | | | [address];[place] | | | | | | [address] | | | | + + + [...] | EXTERNAL LAB | | performed at [facility];[address] [place] [address];[place] [address] TOXIN A | | | NEGATIVE Testing performed at | | | [facility];[address] [place] [address];[place] [address] C DIFF INTERPRETATION | | | Negative for toxigenic C.difficile. Testing performed at | | | [facility];[address] [place] [address];[place] [address] | | + + + + +---------+ [...] | Fingerstick | performed at [facility];888 | | LAB | | | | [address];[place] | | | | | | [address] | | | | + + + + + + + + | Specimen | + + | | + + + +---------+ + + | Performing | Address | City/State/Zipcode | Phone Number | | Organization | | | | + +---------+ + + | EXTERNAL LAB | | | | + +---------+ + + External Lab: CBC (12/18/2016 5:11 AM PDT) + + + [...] | | | | [place] [address] | | | | + + + + + + | Non- | 3.92 (L)Comment: Testing | 4.20 - 5.70 | EXTERNAL | | | Red Blood | performed at [facility], [address] | M/uL | LAB | | | Cells | [address], | | | | | Counted | [place] [address] | | | | + + + + + + | Hemoglobin | 11.2 (L)Comment: Testing | 13.2 - 17.0 | EXTERNAL | | | | performed at [facility], [address] | g/dL | LAB | | | | [address], | | | | | | [place] [address] | | | | + + + + + + | Hematocrit, | 33.6 (L)Comment: Testing | 39.0 - 50.0 % | EXTERNAL | | | POC | performed at [facility], [address] | | LAB | | | | [address], | | | | | | [place] [address] | | | | + + + + + + | MCV | 85.9Comment: Testing | 80.0 - 100.0 fl | EXTERNAL | | | | performed at [facility], [address] | | LAB | | | | [address], | | | | | | [place] [address] | | | | + + + + + + | MCH | 28.7Comment: Testing | 27.0 - 34.0 pg | EXTERNAL | | | | performed at [facility], [address] | | LAB | | | | [address], | | | | | | [place] [address] | | | | + + + + + + | MCHC | 33.4Comment: Testing | 32.0 - 35.5 | EXTERNAL | | | | performed at [facility], [address] | g/dL | LAB | | | | [address], | | | | | | [place] [address] | | | | + + + + + + | RDW-CV | 41.1Comment: Testing | 37 - 53 fl | EXTERNAL | | | | performed at [facility], [address] | | LAB | | | | [address], | | | | | | [place] [address] | | | | + + + + + + | Platelet | 341Comment: Testing | 150 - 400 K/uL | EXTERNAL | | | Count | performed at [facility], [address] | | LAB | | | Plasma | [address], | | | | | | [place] [address] | | | | + + + + + + | MPV | 7.6Comment: Testing | fl | EXTERNAL | | | | performed at [facility], [address] | | LAB | | | | [address], | | | | | | [place] [address] | | | | + + + + + + | Differentia | AUTOMATEDComment: | | EXTERNAL | | | l Type | Testing performed at | | LAB | | | | [facility], [address] | | | | | | [place] | | | | | | [address] | | | | + + + + + + | % Segmented | 76.22Comment: Testing | % | EXTERNAL | | | | performed at [facility], [address] | | LAB | | | Neutrophils | [address], | | | | | | [place] [address] | | | | + + + + + + | % | 12.04Comment: Testing | % | EXTERNAL | | | Lymphocytes | performed at [facility], [address] | | LAB | | | | [address], | | | | | | [place] [address] | | | | + + + + + + | % Monocytes | 6.15Comment: Testing | % | EXTERNAL | | | | performed at [facility], [address] | | LAB | | | | [address], | | | | | | [place] [address] | | | | + + + [...] | | | | [place] [address] | | | | + + + + + + | Absolute | 8.38 (H)Comment: Testing | 1.90 - 7.40 | EXTERNAL | | | Segmented | performed at [facility], [address] | K/uL | LAB | | | Neutrophils | [address], | | | | | | [place] [address] | | | | + + + + + + | Absolute | 1.32Comment: Testing | 1.00 - 3.90 | EXTERNAL | | | Lymphocytes | performed at [facility], [address] | K/uL | LAB | | | | [address], | | | | | | [place] [address] | | | | + + + + + + | Absolute | 0.68Comment: Testing | 0.00 - 0.80 | EXTERNAL | | | Monocytes | performed at [facility], [address] | K/uL | LAB | | | | [address], | | | | | | [place] [address] | | | | + + + + + + | Absolute | 0.52 (H)Comment: Testing | 0.00 - 0.50 | EXTERNAL | | | Eosinophils | performed at [facility], [address] | K/uL | LAB | | | | [address], | | | | | | [place] [address] | | | | + + + + + + | Absolute | 0.10Comment: Testing | 0.00 - 0.10 | EXTERNAL | | | Basophils | performed at [facility], [address] | K/uL | LAB | | | | [address], | | | | | | [place] [address] | | | | + + [...] | | | | [place] [address] | | | | + + + + + + | K | 3.8Comment: Testing | 3.5 - 4.9 | EXTERNAL | | | | performed at [facility], [address] | mmol/L | LAB | | | | [address], | | | | | | [place] [address] | | | | + + + + + + | Cl | 105Comment: Testing | 99 - 109 mmol/L | EXTERNAL | | | | performed at [facility], [address] | | LAB | | | | [address], | | | | | | [place] [address] | | | | + + + + + + | CO2 | 25Comment: Testing | 23 - 32 mmol/L | EXTERNAL | | | | performed at [facility], [address] | | LAB | | | | [address], | | | | | | [place] [address] | | | | + + + + + + | Anion Gap | 12Comment: Testing | 5 - 20 mmol/L | EXTERNAL | | | | performed at [facility], [address] | | LAB | | | | [address], | | | | | | [place] [address] | | | | + + + + + + | Glucose, | 236 (H)Comment: Testing | 65 - 99 mg/dL | EXTERNAL | | | Fasting | performed at [facility], [address] | | LAB | | | | [address], | | | | | | [place] [address] | | | | + + + + + + | BUN | 6 (L)Comment: Testing | 8 - 25 mg/dL | EXTERNAL | | | | performed at [facility], [address] | | LAB | | | | [address], | | | | | | [place] [address] | | | | + + + + + + | Creatinine | 0.9Comment: Testing | 0.70 - 1.30 | EXTERNAL | | | | performed at [facility], [address] | mg/dL | LAB | | | | [address], | | | | | | [place] [address] | | | | + + + + + + | BUN/Creatin | 7Comment: Testing | | EXTERNAL | | | ine Ratio | performed at [facility], [address] | | LAB | | | | [address], | | | | | | [place] [address] | | | | + + + + + + | Calcium | 8.3 (L)Comment: Testing | 8.5 - 10.5 | EXTERNAL | | | | performed at [facility], [address] | mg/dL | LAB | | | | [address], | | | | | | [place] [address] | | | | + + + [...] | | | | | | at [facility], [address] | | | | | | [address], | | | | | | [place] [address] | | | | + + + [...] | Fingerstick | performed at [facility];[address] | | LAB | | | | [address];[place], [place] | | | | | | [address] | | | | + + + [...] | | | | | performed at [facility] | | | | | | [facility];[place], [place] | | | | | | [address] | | | | + + + [...] | Fingerstick | performed at [facility];888 | | LAB | | | | [address];[place] | | | | | | [address] | | | | + + + [...] | Fingerstick | performed at [facility];[address] | | LAB | | | | [address];[place] | | | | | | [address] | | | | + + + [...] | Fingerstick | performed at [facility];[address] | | LAB | | | | [address];[place], [place] | | | | | | [address] | | | | + + + + + + + + | Specimen | + + | | + + + +---------+ + + | Performing | Address | City/State/Zipcode | Phone Number | | Organization | | | | + +---------+ + + | EXTERNAL LAB | | | | + +---------+ + + External Lab: CHARITY (12/17/2016 5:24 AM PDT) + + + [...] | | | | [facility], [address] [facility] | | | | | | [place] | | | | | | [address] | | | | + + + + + + | Non- | 4.13 (L)Comment: Testing | 4.20 - 5.70 | EXTERNAL | | | Red Blood | performed at [facility], [address] | M/uL | LAB | | | Cells | [address], | | | | | Counted | [place] [address] | | | | + + + + + + | Hemoglobin | 11.7 (L)Comment: Testing | 13.2 - 17.0 | EXTERNAL | | | | performed at [facility], [address] | g/dL | LAB | | | | [address], | | | | | | [place] [address] | | | | + + + + + + | Hematocrit, | 34.8 (L)Comment: Testing | 39.0 - 50.0 % | EXTERNAL | | | POC | performed at [facility], [address] | | LAB | | | | [address], | | | | | | [place] [address] | | | | + + + + + + | MCV | 84.2Comment: Testing | 80.0 - 100.0 fl | EXTERNAL | | | | performed at [facility], [address] | | LAB | | | | [address], | | | | | | [place] [address] | | | | + + + [...] | | | | [place] [address] | | | | + + + + + + | RDW-CV | 42.0Comment: Testing | 37 - 53 fl | EXTERNAL | | | | performed at [facility], [address] | | LAB | | | | [address], | | | | | | [place] [address] | | | | + + + + + + | Platelet | 329Comment: Testing | 150 - 400 K/uL | EXTERNAL | | | Count | performed at [facility], [address] | | LAB | | | Plasma | [address], | | | | | | [place] [address] | | | | + + + + + + | MPV | 7.9Comment: Testing | fl | EXTERNAL | | | | performed at [facility], [address] | | LAB | | | | [address], | | | | | | [place] [address] | | | | + + + + + + | Differentia | AUTOMATEDComment: | | EXTERNAL | | | l Type | Testing performed at | | LAB | | | | [facility], [address] | | | | | | [place] | | | | | | [address] | | | | + + + + + + | % Segmented | 83.29Comment: Testing | % | EXTERNAL | | | | performed at [facility], [address] | | LAB | | | Neutrophils | [address], | | | | | | [place] [address] | | | | + + + + + + | % | 8.71Comment: Testing | % | EXTERNAL | | | Lymphocytes | performed at [facility], [address] | | LAB | | | | [address], | | | | | | [place] [address] | | | | + + + + + + | % Monocytes | 5.08Comment: Testing | % | EXTERNAL | | | | performed at [facility], [address] | | LAB | | | | [address], | | | | | | [place] [address] | | | | + + + + + + | % | 2.32Comment: Testing | % | EXTERNAL | | | Eosinophils | performed at [facility], [address] | | LAB | | | | [address], | | | | | | [place] [address] | | | | + + + + + + | % Basophils | 0.60Comment: Testing | % | EXTERNAL | | | | performed at [facility], [address] | | LAB | | | | [address], | | | | | | [place] [address] | | | | + + + [...] K/uL | LAB | | | | [address], | | | | | | [place] [address] | | | | + + + + + + | Absolute | 0.74Comment: Testing | 0.00 - 0.80 | EXTERNAL | | | Monocytes | performed at [facility], [address] | K/uL | LAB | | | | [address], | | | | | | [place] [address] | | | | + + + + + + | Absolute | 0.34Comment: Testing | 0.00 - 0.50 | EXTERNAL | | | Eosinophils | performed at [facility], [address] | K/uL | LAB | | | | [address], | | | | | | [place] [address] | | | | + + + + + + | Absolute | 0.09Comment: Testing | 0.00 - 0.10 | EXTERNAL | | | Basophils | performed at [facility], [address] | K/uL | LAB | | | | [address], | | | | | | [place] [address] | | | | + + + [...] | | | | [place] [address] | | | | + + + + + + | K | 3.8Comment: Testing | 3.5 - 4.9 | EXTERNAL | | | | performed at [facility], [address] | mmol/L | LAB | | | | [address], | | | | | | [place] [address] | | | | + + + + + + | Cl | 104Comment: Testing | 99 - 109 mmol/L | EXTERNAL | | | | performed at [facility], [address] | | LAB | | | | [address], | | | | | | [place] [address] | | | | + + + + + + | CO2 | 27Comment: Testing | 23 - 32 mmol/L | EXTERNAL | | | | performed at [facility], [address] | | LAB | | | | [address], | | | | | | [place] [address] | | | | + + + + + + | Anion Gap | 11Comment: Testing | 5 - 20 mmol/L | EXTERNAL | | | | performed at [facility], [address] | | LAB | | | | [address], | | | | | | [place] [address] | | | | + + + + + + | Glucose, | 196 (H)Comment: Testing | 65 - 99 mg/dL | EXTERNAL | | | Fasting | performed at [facility], [address] | | LAB | | | | [address], | | | | | | [place] [address] | | | | + + + + + + | BUN | 5 (L)Comment: Testing | 8 - 25 mg/dL | EXTERNAL | | | | performed at [facility], [address] | | LAB | | | | [address], | | | | | | [place] [address] | | | | + + + + + + | Creatinine | 0.9Comment: Testing | 0.70 - 1.30 | EXTERNAL | | | | performed at [facility], [address] | mg/dL | LAB | | | | [address], | | | | | | [place] [address] | | | | + + + + + + | BUN/Creatin | 6Comment: Testing | | EXTERNAL | | | ine Ratio | performed at [facility], [address] | | LAB | | | | [address], | | | | | | [place] [address] | | | | + + + + + + | Calcium | 8.4 (L)Comment: Testing | 8.5 - 10.5 | EXTERNAL | | | | performed at [facility], [address] | mg/dL | LAB | | | | [address], | | | | | | [place] [address] | | | | + + + [...] Man, | | | | | | [place] [address] | | | | + + + [...] | Fingerstick | performed at [facility] | | LAB | | | | [address];[place] | | | | | | [address] | | | | + + + [...] | Fingerstick | performed at [facility];[address] | | LAB | | | | [address];[place] | | | | | | [address] | | | | + + + [...] | | | | | performed at [facility];[address] | | | | | | [address];[place], [place] | | | | | | [address] | | | | + + + [...] | Fingerstick | performed at [facility];888 | | LAB | | | | [address];[place] | | | | | | [address] | | | | + + + [...] | Fingerstick | performed at [facility];[address] | | LAB | | | | [address];[place] | | | | | | [address] | | | | + + + [...] | + + + | KULDIP HAHN FARIDEH XR FOOT LEFT 12/16/2016 8:37 [...] Conversion - 05/16/2019 2:48 AM PDT KULDIP Jaquan HAHN FARIDEHXR FOOT LEFT12/16/2016 | | 8:37 AM History: [...] K/uL | LAB | | | | [facility], [address] [facility] | | | | | | [place] | | | | | | [address] | | | | + + + + + + | Non- | 4.31Comment: Testing | 4.20 - 5.70 | EXTERNAL | | | Red Blood | performed at [facility], [address] | M/uL | LAB | | | Cells | [address], | | | | | Counted | [place] [address] | | | | + + + + + + | Hemoglobin | 12.3 (L)Comment: Testing | 13.2 - 17.0 | EXTERNAL | | | | performed at [facility], [address] | g/dL | LAB | | | | [address], | | | | | | [place] [address] | | | | + + + + + + | Hematocrit, | 36.4 (L)Comment: Testing | 39.0 - 50.0 % | EXTERNAL | | | POC | performed at [facility], [address] | | LAB | | | | [address], | | | | | | [place] [address] | | | | + + + + + + | MCV | 84.5Comment: Testing | 80.0 - 100.0 fl | EXTERNAL | | | | performed at [facility], [address] | | LAB | | | | [address], | | | | | | [place] [address] | | | | + + + + + + | MCH | 28.5Comment: Testing | 27.0 - 34.0 pg | EXTERNAL | | | | performed at [facility], [address] | | LAB | | | | [address], | | | | | | [place] [address] | | | | + + + + + + | MCHC | 33.8Comment: Testing | 32.0 - 35.5 | EXTERNAL | | | | performed at [facility], [address] | g/dL | LAB | | | | [address], | | | | | | [place] [address] | | | | + + + + + + | RDW-CV | 42.9Comment: Testing | 37 - 53 fl | EXTERNAL | | | | performed at [facility], [address] | | LAB | | | | [address], | | | | | | [place] [address] | | | | + + + + + + | Platelet | 307Comment: Testing | 150 - 400 K/uL | EXTERNAL | | | Count | performed at [facility], [address] | | LAB | | | Plasma | [address], | | | | | | [place] [address] | | | | + + + + + + | MPV | 8.0Comment: Testing | fl | EXTERNAL | | | | performed at [facility], [address] | | LAB | | | | [address], | | | | | | [place] [address] | | | | + + + + + + | Differentia | AUTOMATEDComment: | | EXTERNAL | | | l Type | Testing performed at | | LAB | | | | [facility], [address] | | | | | | [place] | | | | | | [address] | | | | + + + + + + | % Segmented | 85.00Comment: Testing | % | EXTERNAL | | | | performed at [facility], [address] | | LAB | | | Neutrophils | [address], | | | | | | [place] [address] | | | | + + + + + + | % | 7.15Comment: Testing | % | EXTERNAL | | | Lymphocytes | performed at [facility], [address] | | LAB | | | | [address], | | | | | | [place] [address] | | | | + + + + + + | % Monocytes | 5.39Comment: Testing | % | EXTERNAL | | | | performed at [facility], [address] | | LAB | | | | [address], | | | | | | [place] [address] | | | | + + + + + + | % | 1.86Comment: Testing | % | EXTERNAL | | | Eosinophils | performed at [facility], [address] | | LAB | | | | [address], | | | | | | [place] [address] | | | | + + + + + + | % Basophils | 0.60Comment: Testing | % | EXTERNAL | | | | performed at [facility], [address] | | LAB | | | | [address], | | | | | | [place] [address] | | | | + + + + + + | Absolute | 13.51 (H)Comment: | 1.90 - 7.40 | EXTERNAL | | | Segmented | Testing performed at | K/uL | LAB | | | Neutrophils | [facility], [address] | | | | | | [place] | | | | | | [address] | | | | + + + + + + | Absolute | 1.14Comment: Testing | 1.00 - 3.90 | EXTERNAL | | | Lymphocytes | performed at [facility], [address] | K/uL | LAB | | | | [place], | | | | | | [place] [address] | | | | + + + + + + | Absolute | 0.86 (H)Comment: Testing | 0.00 - 0.80 | EXTERNAL | | | Monocytes | performed at [facility], [address] | [address] | LAB | | | | [address], | | | | | | [place] [address] | | | | + + + + + + | Absolute | 0.30Comment: Testing | 0.00 - 0.50 | EXTERNAL | | | Eosinophils | performed at [facility], [address] | K[address] | LAB | | | | [address], | | | | | | [place] [address] | | | | + + + + + + | Absolute | 0.10Comment: Testing | 0.00 - 0.10 | EXTERNAL | | | Basophils | performed at [facility], [address] | K/uL | LAB | | | | [address], | | | | | | [place] [address] | | | | + + + [...] | | | | [place] [address] | | | | + + + + + + | K | 4.0Comment: Testing | 3.5 - 4.9 | EXTERNAL | | | | performed at [facility], [address] | mmol/L | LAB | | | | [place], | | | | | | [place] [address] | | | | + + + + + + | Cl | 103Comment: Testing | 99 - 109 mmol/L | EXTERNAL | | | | performed at [facility], [address] | | LAB | | | | [address], | | | | | | [place] [address] | | | | + + + + + + | CO2 | 24Comment: Testing | 23 - 32 mmol/L | EXTERNAL | | | | performed at [facility], [address] | | LAB | | | | [address], | | | | | | [place] [address] | | | | + + + + + + | Anion Gap | 14Comment: Testing | 5 - 20 mmol/L | EXTERNAL | | | | performed at [facility], [address] | | LAB | | | | [address], | | | | | | [place] [address] | | | | + + + + + + | Glucose, | 207 (H)Comment: Testing | 65 - 99 mg/dL | EXTERNAL | | | Fasting | performed at [facility], [address] | | LAB | | | | [address], | | | | | | [place] [address] | | | | + + + + + + | BUN | 7 (L)Comment: Testing | 8 - 25 mg/dL | EXTERNAL | | | | performed at [facility], [address] | | LAB | | | | [address], | | | | | | [place] [address] | | | | + + + + + + | Creatinine | 0.9Comment: Testing | 0.70 - 1.30 | EXTERNAL | | | | performed at [facility], [address] | mg/dL | LAB | | | | [address], | | | | | | [place] [address] | | | | + + + + + + | BUN/Creatin | 8Comment: Testing | | EXTERNAL | | | ine Ratio | performed at [facility], [address] | | LAB | | | | [address], | | | | | | [place] [address] | | | | + + + + + + | Calcium | 8.2 (L)Comment: Testing | 8.5 - 10.5 | EXTERNAL | | | | performed at [facility], [address] | mg/dL | LAB | | | | [place] [place], | | | | | | [place] [address] | | | | + + + [...] W | | | | | | [address], | | | | | | [place] [address] | | | | + + + [...] | Fingerstick | performed at [facility];[address] | | LAB | | | | [address];[place] | | | | | | [address] | | | | + + [...] with a red-brown discoloration of the bone. Framework Developer | | | sections are submitted in cassette B1 and placed into decal prior to | | | processing. FAM:banner MICROSCOPIC EXAMINATION: A-B. Histologic | | | sections of all submitted blocks are examined by light microscopy. | | | These findings, together with the gross examination, support the | | | pathologic diagnosis. PERFORMING LABORATORY: Professional | | | interpretation and technical preparation was performed by [facility] | | | [facility]ostics, [address], | | | [place] [address] (Sap Crm Developer: Rafat Lorenzo M.D.; IA#: | | | [id number]). Diagnostician: Isi Gore MD Pathologist | | [...] | Fingerstick | performed at [facility];[address] | | LAB | | | | [address];[place], [place] | | | | | | [address] | | | | + + + [...] | Fingerstick | performed at [facility];888 | | LAB | | | | [address];[place], [place] | | | | | | [address] | | | | + + + [...] | Fingerstick | performed at [facility];888 | | LAB | | | | [address];[place], [place] | | | | | | [address] | | | | + + + + + + + + | Specimen | + + | | + + + +---------+ + + | Performing | Address | City/State/Zipcode | Phone Number | | Organization | | | | + +---------+ + + | EXTERNAL LAB | | | | + +---------+ + + POC CG 4, ISTADaniel Arterial (12/15/2016 1:21 PM PDT) + + + + + + | Component | Value | Ref Range | Performed | Pathologist | | | | | At | Signature | + + + + + + | PH ART | 7.384Comment: Testing | 7.350 - 7.450 | EXTERNAL | | | | performed at [facility];[address] | | LAB | | | | [address];[place] | | | | | | [address] | | | | + + + + + + | PCO2 ART | 32 (L)Comment: Testing | 35 - 45 mmHg | EXTERNAL | | | | performed at [facility];[address] | | LAB | | | | [address];[place] | | | | | | [address] | | | | + + + + + + | PO2 ART | 81Comment: Testing | 80 - 105 mmHg | EXTERNAL | | | | performed at [facility];[address] | | LAB | | | | [address];[place] | | | | | | [address] | | | | + + + + + + | Lactate, | <0.30 (L)Comment: | 0.36 - 1.25 | EXTERNAL | | | Arterial | Testing performed at | mmol/L | LAB | | | | [facility];[address];[place] [address] | | | | + + + + + + | HCO3 ART | 19 (L)Comment: Testing | 22 - 26 mmol/L | EXTERNAL | | | | performed at [facility];[address] | | LAB | | | | [address];[place] | | | | | | [address] | | | | + + + + + + | POC | 20 (L)Comment: Testing | 23 - 27 mEq/L | EXTERNAL | | | APPEARANCE | performed at [facility];[address] | | LAB | | | UA | [address];[place] | | | | | | [address] | | | | + + + + + + | Base | 6 (H)Comment: Testing | 0.0 - 2.0 | EXTERNAL | | | deficit | performed at [facility];888 | mmol/L | LAB | | | | [address];[place] | | | | | | [address] | | | | + + + + + + | O2 SAT ART | 96Comment: Testing | 95 - 98 % | EXTERNAL | | | | performed at [facility];[address] | | LAB | | | | [address];[place] | | | | | | [address] | | | | + + + + + + | FiO2, POC | 21Comment: Testing | % | EXTERNAL | | | | performed at [facility];[address] | | LAB | | | | [address];[place] | | | | | | [address] | | | | + + + [...] EXTERNAL | | | | performed at [facility];888 | mmol/L | LAB | | | | [address];[place] | | | | | | [address] | | | | + + + [...] | Fingerstick | performed at [facility];[address] | | LAB | | | | [address];[place], [place] | | | | | | [address] | | | | + + + [...] | | | | [place] [address] | | | | + + + + + + | Clarity, | CLEARComment: Testing | | EXTERNAL | | | Urine | performed at [facility], [address] | | LAB | | | | [address], | | | | | | [place] [address] | | | | + + + + + + | Specific | 1.022Comment: Testing | 1.002 - 1.030 | EXTERNAL | | | [place], | performed at [facility], [address] | | LAB | | | Urine | [address], | | | | | | [place] [address] | | | | + + + + + + | Leukocyte | NEGATIVEComment: | | EXTERNAL | | | Esterase, | Testing performed at | | LAB | | | Urine | [facility], [address] | | | | | | [place] | | | | | | [address] | | | | + + + + + + | Nitrite, | NEGATIVEComment: Testing | | EXTERNAL | | | Urine | performed at [facility], [address] | | LAB | | | | [address], | | | | | | [place] [address] | | | | + + + + + + | Urobilinoge | NORMALComment: Testing | mg/dL | EXTERNAL | | | n, Urine | performed at [facility], [address] | | LAB | | | | [address], | | | | | | [place] [address] | | | | + + + + + + | Protein, | NEGATIVEComment: Testing | mg/dL | EXTERNAL | | | Urine | performed at [facility], [address] | | LAB | | | | [address], | | | | | | [place] [address] | | | | + + + + + + | pH, Urine | 6.0Comment: Testing | 5.0 - 8.0 | EXTERNAL | | | | performed at [facility], [address] | | LAB | | | [address], | | | | | | [place] [address] | | | | + + + + + + | Blood, | NEGATIVEComment: Testing | | EXTERNAL | | | Urine | performed at [facility], [address] | | LAB | | | | [address], | | | | | | [place] [address] | | | | + + + + + + | Ketones | NEGATIVEComment: Testing | mg/dL | EXTERNAL | | | | performed at [facility], [address] | | LAB | | | | [address], | | | | | | [place] [address] | | | | + + + + + + | Bilirubin, | NEGATIVEComment: Testing | | EXTERNAL | | | Urine | performed at [facility], [address] | | LAB | | | | [address], | | | | | | [place] [address] | | | | + + + + + + | Glucose, | >500 (A)Comment: Testing | mg/dL | EXTERNAL | | | Urine | performed at [facility], [address] | | LAB | | | | [address], | | | | | | [place] [address] | | | | + + + [...] | | LAB | | | | [facility];[address];[place] [address] | | | | + + + + + + | PCO2 ART | 56 (H)Comment: Testing | 35 - 45 mmHg | EXTERNAL | | | | performed at [facility];[address] | | LAB | | | | [address];[place] | | | | | | [address] | | | | + + + + + + | PO2 ART | 74 (L)Comment: Testing | 80 - 105 mmHg | EXTERNAL | | | | performed at [facility];[address] | | LAB | | | | [address];[place] | | | | | | [address] | | | | + + + + + + | Lactate, | 7.11 (H)Comment: Testing | 0.36 - 1.25 | EXTERNAL | | | Arterial | performed at [facility];888 | mmol/L | LAB | | | | [address];[place] | | | | | | [address] | | | | + + + + + + | HCO3 ART | 9 (L)Comment: Testing | 22 - 26 mmol/L | EXTERNAL | | | | performed at [facility];[address] | | LAB | | | | [address];[place] | | | | | | [address] | | | | + + + + + + | POC | 11 (L)Comment: Testing | 23 - 27 mEq/L | EXTERNAL | | | APPEARANCE | performed at [facility];888 | | LAB | | | UA | [address];[place] | | | | | | [address] | | | | + + + + + + | Base | 25 (H)Comment: Testing | 0.0 - 2.0 | EXTERNAL | | | deficit | performed at [facility];888 | mmol/L | LAB | | | | [address];[place] | | | | | | [address] | | | | + + + + + + | O2 SAT ART | 77 (L)Comment: Testing | 95 - 98 % | EXTERNAL | | | | performed at [facility];[address] | | LAB | | | | [address];[place] | | | | | | [address] | | | | + + + + + + | FiO2, POC | 100Comment: Testing | % | EXTERNAL | | | | performed at [facility];[address] | | LAB | | | | [address];[place] | | | | | | [address] | | | | + + + [...] K/uL | LAB | | | | [facility], [address] [facility] | | | | | | [place] | | | | | | [address] | | | | + + + + + + | Non- | 4.04 (L)Comment: Testing | 4.20 - 5.70 | EXTERNAL | | | Red Blood | performed at [facility], [address] | M/uL | LAB | | | Cells | [address], | | | | | Counted | [place] [address] | | | | + + + + + + | Hemoglobin | 11.4 (L)Comment: Testing | 13.2 - 17.0 | EXTERNAL | | | | performed at [facility], [address] | g/dL | LAB | | | | [address], | | | | | | [place] [address] | | | | + + + + + + | Hematocrit, | 35.1 (L)Comment: Testing | 39.0 - 50.0 % | EXTERNAL | | | POC | performed at [facility], [address] | | LAB | | | | [address], | | | | | | [place] [address] | | | | + + + + + + | MCV | 86.7Comment: Testing | 80.0 - 100.0 fl | EXTERNAL | | | | performed at [facility], [address] | | LAB | | | | [address], | | | | | | [place] [address] | | | | + + + + + + | MCH | 28.2Comment: Testing | 27.0 - 34.0 pg | EXTERNAL | | | | performed at [facility], [address] | | LAB | | | | [address], | | | | | | [place] [address] | | | | + + + + + + | MCHC | 32.5Comment: Testing | 32.0 - 35.5 | EXTERNAL | | | | performed at [facility], [address] | g/dL | LAB | | | | [address], | | | | | | [place] [address] | | | | + + + + + + | RDW-CV | 42.0Comment: Testing | 37 - 53 fl | EXTERNAL | | | | performed at [facility], [address] | | LAB | | | | [address], | | | | | | [place] [address] | | | | + + + + + + | Platelet | 262Comment: Testing | 150 - 400 K/uL | EXTERNAL | | | Count | performed at [facility], [address] | | LAB | | | Plasma | [address], | | | | | | [place] [address] | | | | + + + + + + | MPV | 8.4Comment: Testing | fl | EXTERNAL | | | | performed at [facility], [address] | | LAB | | | | [address], | | | | | | [place] [address] | | | | + + + + + + | Differentia | AUTOMATEDComment: | | EXTERNAL | | | l Type | Testing performed at | | LAB | | | | [facility], [address] | | | | | | [place] | | | | | | [address] | | | | + + + + + + | % Segmented | 82.60Comment: Testing | % | EXTERNAL | | | | performed at [facility], [address] | | LAB | | | Neutrophils | [address], | | | | | | [place] [address] | | | | + + + + + + | % | 7.47Comment: Testing | % | EXTERNAL | | | Lymphocytes | performed at [facility], [address] | | LAB | | | | [address], | | | | | | [place] [address] | | | | + + + + + + | % Monocytes | 6.29Comment: Testing | % | EXTERNAL | | | | performed at [facility], [address] | | LAB | | | | [address], | | | | | | [place] [address] | | | | + + + + + + | % | 3.29Comment: Testing | % | EXTERNAL | | | Eosinophils | performed at [facility], [address] | | LAB | | | | [address], | | | | | | [place] [address] | | | | + + + + + + | % Basophils | 0.35Comment: Testing | % | EXTERNAL | | | | performed at [facility], [address] | | LAB | | | | [facility] [address], | | | | | | [place] [address] | | | | + + + + + + | Absolute | 13.94 (H)Comment: | 1.90 - 7.40 | EXTERNAL | | | Segmented | Testing performed at | K/uL | LAB | | | Neutrophils | [facility], [address] | | | | | | [place] | | | | | | [address] | | | | + + + + + + | Absolute | 1.26Comment: Testing | 1.00 - 3.90 | EXTERNAL | | | Lymphocytes | performed at [facility], [address] | K/uL | LAB | | | | [address], | | | | | | [place] [address] | | | | + + + + + + | Absolute | 1.06 (H)Comment: Testing | 0.00 - 0.80 | EXTERNAL | | | Monocytes | performed at [facility], [address] | K/uL | LAB | | | | [address], | | | | | | [place] [address] | | | | + + + + + + | Absolute | 0.56 (H)Comment: Testing | 0.00 - 0.50 | EXTERNAL | | | Eosinophils | performed at [facility], [address] | K/uL | LAB | | | | [address], | | | | | | [place] [address] | | | | + + + + + + | Absolute | 0.06Comment: Testing | 0.00 - 0.10 | EXTERNAL | | | Basophils | performed at [facility], [address] | K/uL | LAB | | | | [address], | | | | | | [place] [address] | | | | + + + [...] EXTERNAL | | | | performed at [facility], [address] | | LAB | | | | [address], | | | | | | [place] [address] | | | | + + + [...] EXTERNAL | | | | performed at [facility], [address] | | LAB | | | | [address], | | | | | | [place] [address] | | | | + + + [...] | EXTERNAL | | | A1c | [place] [facility] | | LAB | | | [...] | | | | | performed at [facility], [address] | | | | | | [address] [facility], | | | | | | [place] [address] | | | | + + + [...] | | | | | performed at [facility], [address] | | | | | | [facility], | | | | | | [place] [address] | | | | + + + [...] | LAB | | | | [address] | | | | | | [place] [address] | | | | + + + + + + | K | 4.6Comment: Testing | 3.5 - 4.9 | EXTERNAL | | | | performed at [facility], [address] | mmol/L | LAB | | | | [address], | | | | | | [place] [address] | | | | + + + + + + | Cl | 103Comment: Testing | 99 - 109 mmol/L | EXTERNAL | | | | performed at [facility], [address] | | LAB | | | | [address], | | | | | | [place] [address] | | | | + + + + + + | CO2 | 22 (L)Comment: Testing | 23 - 32 mmol/L | EXTERNAL | | | | performed at [facility], [address] | | LAB | | | | [address], | | | | | | [place] [address] | | | | + + + + + + | Anion Gap | 14Comment: Testing | 5 - 20 mmol/L | EXTERNAL | | | | performed at [facility], [address] | | LAB | | | | [address], | | | | | | [place] [address] | | | | + + + + + + | Glucose, | 392 (H)Comment: Testing | 65 - 99 mg/dL | EXTERNAL | | | Fasting | performed at [facility], [address] | | LAB | | | | [address], | | | | | | [place] [address] | | | | + + + + + + | BUN | 12Comment: Testing | 8 - 25 mg/dL | EXTERNAL | | | | performed at [facility], [address] | | LAB | | | | [address], | | | | | | [place] [address] | | | | + + + + + + | Creatinine | 1.0Comment: Testing | 0.70 - 1.30 | EXTERNAL | | | | performed at [facility], [address] | mg/dL | LAB | | | | [address], | | | | | | [place] [address] | | | | + + + + + + | BUN/Creatin | 12Comment: Testing | | EXTERNAL | | | ine Ratio | performed at [facility], [address] | | LAB | | | | [address], | | | | | | [place] [address] | | | | + + + + + + | Calcium | 7.6 (L)Comment: Testing | 8.5 - 10.5 | EXTERNAL | | | | performed at [facility], [address] | mg/dL | LAB | | | | [address], | | | | | | [place] [address] | | | | + + + + + + | Protein, | 6.4Comment: Testing | 6.3 - 8.2 g/dL | EXTERNAL | | | Total | performed at [facility], [address] | | LAB | | | | [address], | | | | | | [place] [address] | | | | + + + + + + | Albumin | 2.2 (L)Comment: Testing | 3.6 - 5.0 g/dL | EXTERNAL | | | | performed at [facility], [address] | | LAB | | | | [address], | | | | | | [place] [address] | | | | + + + + + + | Globulin | 4.2Comment: Testing | 1.3 - 4.9 g/dL | EXTERNAL | | | | performed at [facility], [address] | | LAB | | | | [address], | | | | | | [place] [address] | | | | + + + + + + | A/G Ratio | 0.5 (L)Comment: Testing | 1.0 - 2.4 | EXTERNAL | | | | performed at [facility], [address] | | LAB | | | | [address], | | | | | | [place] [address] | | | | + + + + + + | Bilirubin | 0.6Comment: Testing | 0.1 - 1.5 mg/dL | EXTERNAL | | | Total | performed at [facility], [address] | | LAB | | | [address], | | | | | | [place] [address] | | | | + + + + + + | ALP, | 182 (H)Comment: Testing | 35 - 115 U/L | EXTERNAL | | | External | performed at [facility], [address] | | LAB | | | | [address], | | | | | | [place] [address] | | | | + + + + + + | AST | 9 (L)Comment: Testing | 10 - 45 U/L | EXTERNAL | | | | performed at [facility], [address] | | LAB | | | | [address], | | | | | | [place] [address] | | | | + + + + + + | ALT | 16Comment: Testing | 10 - 65 U/L | EXTERNAL | | | | performed at [facility], [address] | | LAB | | | | [address] [facility], | | | | | | [place] [address] | | | | + + + [...] | | | | | | at [facility], [address] | | | | | | [address] [facility], | | | | | | [place] [address] | | | | + + + [...] | Fingerstick | performed at [facility];[address] | | LAB | | | | [address];[place] | | | | | | [address] | | | | + + + [...] EXTERNAL LAB | | Testing performed at [facility];[address] [facility];[place] [address] MRSA PCR | | | POSITIVE for MRSA by PCRAbnormal | | | Testing performed at [facility];[address] [facility];[place] [address] | | + + + + +---------+ [...] | Fingerstick | performed at [facility];[address] | | LAB | | | | [address];[place] | | | | | | [address] | | | | + + + [...] EXTERNAL | | | | performed at [facility];888 | mmol/L | LAB | | | | [address];[place] | | | | | | [address] | | | | + + + + + + | K | 4.0Comment: Testing | 3.5 - 4.9 | EXTERNAL | | | | performed at [facility];888 | mmol/L | LAB | | | | [address];[place] | | | | | | [address] | | | | + + + + + + | Cl | 104Comment: Testing | 99 - 109 mmol/L | EXTERNAL | | | | performed at [facility];[address] | | LAB | | | | [address];[place] | | | | | | [address] | | | | + + + + + + | CO2 | 21 (L)Comment: Testing | 23 - 32 mmol/L | EXTERNAL | | | | performed at [facility];[address] | | LAB | | | | [address];[place] | | | | | | [address] | | | | + + + + + + | Anion Gap | 13Comment: Testing | 5 - 20 mmol/L | EXTERNAL | | | | performed at [facility];[address] | | LAB | | | | [address];[place] | | | | | | [address] | | | | + + + + + + | Glucose, | 254 (H)Comment: Testing | 65 - 99 mg/dL | EXTERNAL | | | Fasting | performed at [facility];[address] | | LAB | | | | [address];[place] | | | | | | [address] | | | | + + + + + + | BUN | 12Comment: Testing | 8 - 25 mg/dL | EXTERNAL | | | | performed at [facility];[address] | | LAB | | | | [address];[place] | | | | | | [address] | | | | + + + + + + | Creatinine | 0.95Comment: Testing | 0.70 - 1.30 | EXTERNAL | | | | performed at [facility];888 | mg/dL | LAB | | | | [address];[place] | | | | | | [address] | | | | + + + + + + | BUN/Creatin | 13Comment: Testing | | EXTERNAL | | | ine Ratio | performed at [facility];[address] | | LAB | | | | [address];[place] | | | | | | [address] | | | | + + + + + + | Calcium | 6.9 (L)Comment: Testing | 8.5 - 10.5 | EXTERNAL | | | | performed at [facility];888 | mg/dL | LAB | | | | [address];[place] | | | | | | [address] | | | | + + + + + + | Protein, | 6.3Comment: Testing | 6.3 - 8.2 g/dL | EXTERNAL | | | Total | performed at [facility];[address] | | LAB | | | | [address];[place] | | | | | | [address] | | | | + + + + + + | Albumin | 2.1 (L)Comment: Testing | 3.6 - 5.0 g/dL | EXTERNAL | | | | performed at [facility];[address] | | LAB | | | | [address];[place] | | | | | | [address] | | | | + + + + + + | Globulin | 4.2Comment: Testing | 1.3 - 4.9 g/dL | EXTERNAL | | | | performed at [facility];[address] | | LAB | | | | [address];[place] | | | | | | [address] | | | | + + + + + + | A/G Ratio | 0.5 (L)Comment: Testing | 1.0 - 2.4 | EXTERNAL | | | | performed at [facility];[address] | | LAB | | | | [address];[place] | | | | | | [address] | | | | + + + + + + | Bilirubin | 0.4Comment: Testing | 0.1 - 1.5 mg/dL | EXTERNAL | | | Total | performed at [facility];[address] | | LAB | | | | [address];[place] | | | | | | [address] | | | | + + + + + + | ALP, | 181 (H)Comment: Testing | 35 - 115 U/L | EXTERNAL | | | External | performed at [facility];[address] | | LAB | | | | [address];[place] | | | | | | [address] | | | | + + + + + + | AST | 10Comment: Testing | 10 - 45 U/L | EXTERNAL | | | | performed at [facility];[address] | | LAB | | | | [address];[place] | | | | | | [address] | | | | + + + + + + | ALT | 14Comment: Testing | 10 - 65 U/L | EXTERNAL | | | | performed at [facility];[address] | | LAB | | | | [address];[place] | | | | | | [address] | | | | + + + [...] | | | | | | at [facility];[address] [place] [address] | | | | | | [facility];[place] [address] | | | | + + + [...] 9:30AM Referring Provider Line: | | | [phone] ID: [id number] | | + + + [...] Procedure Note | + + | Leonard, Glenn Conversion - 05/16/2019 2:48 AM PDT EXAM:LEFT [...] | | 2016 9:30AM Referring Provider Line: [phone] ID: [id number] | + + POC Glucose [...] | Fingerstick | performed at [facility];[address] | | LAB | | | | [address];[place], [place] | | | | | | [address] | | | | + + + [...] EXTERNAL | | | | performed at [facility];888 | mmol/L | LAB | | | | [address] [facility];[place], [place] | | | | | | [address] | | | | + + + [...] | | | Blood | performed at [facility] | | LAB | | | | [address];[place], [place] | | | | | | [address] | | | | + + + [...] EXTERNAL | | | | performed at [facility];888 | | LAB | | | | [address];[place], [place] | | | | | | [address] | | | | + + + [...] K/uL | LAB | | | | [facility];[address] | | | | | | [address];[place] [address] | | | | + + + + + + | Non- | 4.20Comment: Testing | 4.20 - 5.70 | EXTERNAL | | | Red Blood | performed at [facility];888 | M/uL | LAB | | | Cells | [address];[place] | | | | | Counted | [id number] | | | | + + + + + + | Hemoglobin | 12.4 (L)Comment: Testing | 13.2 - 17.0 | EXTERNAL | | | | performed at [facility];888 | g/dL | LAB | | | | [address];[place] | | | | | | [address] | | | | + + + + + + | Hematocrit, | 36.3 (L)Comment: Testing | 39.0 - 50.0 % | EXTERNAL | | | POC | performed at [facility];888 | | LAB | | | | [address];[place] | | | | | | [address] | | | | + + + + + + | MCV | 86.5Comment: Testing | 80.0 - 100.0 fl | EXTERNAL | | | | performed at [facility];[address] | | LAB | | | | [address];[place] | | | | | | [address] | | | | + + + + + + | MCH | 29.4Comment: Testing | 27.0 - 34.0 pg | EXTERNAL | | | | performed at [facility];[address] | | LAB | | | | [address];[place] | | | | | | [address] | | | | + + + + + + | MCHC | 34.0Comment: Testing | 32.0 - 35.5 | EXTERNAL | | | | performed at [facility];888 | g/dL | LAB | | | | [address];[place] | | | | | | [address] | | | | + + + + + + | RDW-CV | 42.9Comment: Testing | 37 - 53 fl | EXTERNAL | | | | performed at [facility];888 | | LAB | | | | [address];[place] | | | | | | [address] | | | | + + + + + + | Platelet | 258Comment: Testing | 150 - 400 K/uL | EXTERNAL | | | Count | performed at [facility];888 | | LAB | | | Plasma | [address];[place] | | | | | | [address] | | | | + + + + + + | MPV | 8.3Comment: Testing | fl | EXTERNAL | | | | performed at [facility];[address] | | LAB | | | | [address];[place] | | | | | | [address] | | | | + + + + + + | Differentia | AUTOMATEDComment: | | EXTERNAL | | | l Type | Testing performed at | | LAB | | | | [address];[place] [address] | | | | + + + + + + | % Segmented | 87.43Comment: Testing | % | EXTERNAL | | | | performed at [facility];888 | | LAB | | | Neutrophils | [address];[place] | | | | | | [address] | | | | + + + + + + | % | 5.56Comment: Testing | % | EXTERNAL | | | Lymphocytes | performed at [facility];[address] | | LAB | | | | [address];[place] | | | | | | [address] | | | | + + + + + + | % Monocytes | 4.36Comment: Testing | % | EXTERNAL | | | | performed at [facility] | | LAB | | | | [address];[place] | | | | | | [address] | | | | + + + + + + | % | 1.84Comment: Testing | % | EXTERNAL | | | Eosinophils | performed at [facility];[address] | | LAB | | | | [address];[place] | | | | | | [address] | | | | + + + + + + | % Basophils | 0.81Comment: Testing | % | EXTERNAL | | | | performed at [facility];[address] | | LAB | | | | [address];[place] | | | | | | [address] | | | | + + + + + + | Absolute | 17.02 (H)Comment: | 1.90 - 7.40 | EXTERNAL | | | Segmented | Testing performed at | K/uL | LAB | | | Neutrophils | [facility];[address] | | [address];[place] [address] | | | | + + + + + + | Absolute | 1.08Comment: Testing | 1.00 - 3.90 | EXTERNAL | | | Lymphocytes | performed at [facility];888 | K/uL | LAB | | | | [address];[place] | | | | | | [address] | | | | + + + + + + | Absolute | 0.85 (H)Comment: Testing | 0.00 - 0.80 | EXTERNAL | | | Monocytes | performed at [facility];[address] | K/uL | LAB | | | | [address];[place] | | | | | | [address] | | | | + + + + + + | Absolute | 0.36Comment: Testing | 0.00 - 0.50 | EXTERNAL | | | Eosinophils | performed at [facility];[address] | K/uL | LAB | | | | [address];[place] | | | | | | [address] | | | | + + + + + + | Absolute | 0.16 (H)Comment: Testing | 0.00 - 0.10 | EXTERNAL | | | Basophils | performed at [facility];[address] | K/uL | LAB | | | | [address];[place] | | | | | | [address] | | | | + + + + + + | RBC | RBC AND PLT MORPHOLOGY | | EXTERNAL | | | Morphology | APPEAR NORMALComment: | | LAB | | | | Testing performed at | | | | | | [facility];[address];[place] [address] | | | | + + + + + + | Platelet | ADEQUATEComment: Testing | | EXTERNAL | | | Estimate | performed at [facility];[address] | | LAB | | | | [address];[place] | | | | | | [address] | | | | + + + + + + | Differentia | SLIDE SCANNED, AGREES | | EXTERNAL | | | l Comments | WITH AUTOMATED | | LAB | | | | RESULTS.Comment: Testing | | | | | | performed at [facility];[address] | | | | | | [address];[place] | | | | | | [address] | | | | + + + [...] EXTERNAL | | | | performed at [facility];[address] | | LAB | | | | [address];[place], [place] | | | | | | [address] | | | | + + + [...] EXTERNAL | | | | performed at [facility];888 | mmol/L | LAB | | | | [address];[place] | | | | | | [address] | | | | + + + + + + | K | 5.1 (H)Comment: MODERATE | 3.5 - 4.9 | EXTERNAL | | | | HEMOLYSISTesting | mmol/L | LAB | | | | performed at [facility];[address] | | | | | | [address];[place] | | | | | | [address] | | | | + + + + + + | Cl | 93 (L)Comment: Testing | 99 - 109 mmol/L | EXTERNAL | | | | performed at [facility];[address] | | LAB | | | | [address];[place] | | | | | | [address] | | | | + + + + + + | CO2 | 23Comment: Testing | 23 - 32 mmol/L | EXTERNAL | | | | performed at [facility];[address] | | LAB | | | | [address];[place] | | | | | | [address] | | | | + + + + + + | Anion Gap | 14Comment: Testing | 5 - 20 mmol/L | EXTERNAL | | | | performed at [facility];[address] | | LAB | | | | [address];[place] | | | | | | [address] | | | | + + + + + + | Glucose, | 635 ()Comment: CALLED | 65 - 99 mg/dL | EXTERNAL | | | Fasting | DR LING COUCH | | LAB | | | | AT 2216 BY RHREAD BACK | | | | | | RESULTS VERIFIEDTesting | | | | | | performed at [facility];[address] | | | | | | [address];[place] | | | | | | [address] | | | | + + + + + + | BUN | 13Comment: Testing | 8 - 25 mg/dL | EXTERNAL | | | | performed at [facility];[address] | | LAB | | | | [address];[place] | | | | | | [address] | | | | + + + + + + | Creatinine | 1.4 (H)Comment: Testing | 0.70 - 1.30 | EXTERNAL | | | | performed at [facility];888 | mg/dL | LAB | | | | [address];[place] | | | | | | [address] | | | | + + + + + + | BUN/Creatin | 10Comment: Testing | | EXTERNAL | | | ine Ratio | performed at [facility];[address] | | LAB | | | | [address];[place] | | | | | | [address] | | | | + + + + + + | Calcium | 7.9 (L)Comment: Testing | 8.5 - 10.5 | EXTERNAL | | | | performed at [facility];888 | mg/dL | LAB | | | | [address];[place] | | | | | | [address] | | | | + + + + + + | Protein, | 7.7Comment: Testing | 6.3 - 8.2 g/dL | EXTERNAL | | | Total | performed at [facility];[address] | | LAB | | | | [address];[place] | | | | | | [address] | | | | + + + + + + | Albumin | 2.6 (L)Comment: Testing | 3.6 - 5.0 g/dL | EXTERNAL | | | | performed at [facility];[address] | | LAB | | | | [address];[place] | | | | | | [address] | | | | + + + + + + | Globulin | 5.1 (H)Comment: Testing | 1.3 - 4.9 g/dL | EXTERNAL | | | | performed at [facility];[address] | | LAB | | | | [address];[place] | | | | | | [address] | | | | + + + + + + | A/G Ratio | 0.5 (L)Comment: Testing | 1.0 - 2.4 | EXTERNAL | | | | performed at [facility];[address] | | LAB | | | | [address];[place] | | | | | | [address] | | | | + + + + + + | Bilirubin | 0.6Comment: Testing | 0.1 - 1.5 mg/dL | EXTERNAL | | | Total | performed at [facility];[address] | | LAB | | | | [address];[place] | | | | | | [address] | | | | + + + + + + | ALP, | 259 (H)Comment: Testing | 35 - 115 U/L | EXTERNAL | | | External | performed at [facility];[address] | | LAB | | | | [address];[place] | | | | | | [address] | | | | + + + + + + | AST | 17Comment: MODERATE | 10 - 45 U/L | EXTERNAL | | | | HEMOLYSISTesting | | LAB | | | | performed at [facility];[address] | | | | | | [address];[place] | | | | | | [address] | | | | + + + + + + | ALT | 17Comment: Testing | 10 - 65 U/L | EXTERNAL | | | | performed at [facility];[address] | | LAB | | | | [address];[place] | | | | | | [address] | | | | + + + [...] | | | | | | at [facility];[address];[place] [address] | | | | + + + [...] type 2 diabetes mellitus with hyperglycemia, unspecified assisted | | insulin use status | + [...]
--- OUTSIDE RECORDS SUMMARY | ~2020-06-16 | XMS | Encounter Summary ---
Demographics + + + | Address | [address] | | | [place] [address] | + + + | Home Phone [...] Team Providers + +------+ + | Care Yield Engineer Name | Role | Phone | [...] + | 04/12/ | Telephone | [facility] | Avi Forde MD | Hosp No Show | | 2015 | | GASTROENTEROLOGY | [address], [place] | | | | | [address] [place] | [address] [place], [place] | | | | | [address] [place], [place] | [address] | | | | | [address] | | | | | | [phone] | | | +--------+ + + + [...]
--- OUTSIDE RECORDS SUMMARY | ~2020-06-16 | XMS | Encounter Summary ---
Demographics + + + | Address | [address] | | | [place] [address] | + + + | Home Phone [...] Author + + + | Author | [facility] | | | and [place] | + + + | Organization | [facility] | [...] Team Providers + +------+ + | Care Paint Preparer Name | Role | Phone | + [...] 2015 | | GASTROENTEROLOGY | [address], [place] | (egds,colon) | | | | [address] [place] | [address] [place], [place] | | | | | [address] [place], [place] | [address] | | | | | [address] | | | | | | [phone] | | | +--------+ + + + [...]
--- OUTSIDE RECORDS SUMMARY | ~2020-06-16 | XMS | Encounter Summary ---
Demographics + + + | Address | [address] | | | [place] [address] | + + + | Home Phone [...] Team Providers + +------+ + | Care Bed Teacher Name | Role | Phone | + +------+ + | Estrella Light PA-C PCP | | + +------+ + Reason for Visit +--------+--------+ + | Reason | Onset | Comments | | | Date | | +--------+--------+ + | Other | 11/28/ | michelle coordination | | | 2020 | | +--------+--------+ + | Other | 11/28/ | cre coordination- offer followup appt with DR Russell | | | 2020 | | +--------+--------+ + Encounter Details +--------+ + + + + | Date | Type | Department | Care Team | Description | +--------+ + + + + | 11/28/ | Telephone | [facility] | Sindy Arrington | Other (care | | 2020 | | INFECTIOUS DISEASE | Troy RN | coordination); Other | | | | [address] | | (cre coordination- | | | | [place] | | offer followup appt | | | | [address] | | with DR Russell) | | | | [phone] | | | +--------+ + + + [...] If he declines, please note in chart. -KP Previous Messages ----- Message ----- From: Sindy Arrington RN Sent: 11/28/2019 2:15 PM PST To: Sindy Arrington RN, Kalie Junior, * Subject: FW: Hospital follow up - IV antibiotics DR Russell - Patient finished antibiotics course in the hospital at [facility] today and was discharged afte r last dose 11/28. Will remove from iv tracking at this time. Does patient need ID clinic follow up? Pls advise Thanks, MAXX Callahan ----- Message ----- From: Rebeca Russell MD Sent: 11/07/2019 12:22 PM PST To: Sindy Arrington RN, Kalie Junior Subject: Hospital follow up - IV antibiotics Patient will be discharged on IV antibiotics. Please refer to my progress notes and orders for details. Please schedule hospital follow up around 11/28. Thanks, XAVIER Called patient, message left for patient to call the office back to schedule [facility] fo llow up appt. Patient completed IV antibiotics in the hospital and discharged 11/28. Maribel ramirez signed by Sindy Arrington RN at 11/28/2019 [...]
--- OUTSIDE RECORDS SUMMARY | ~2020-06-16 | XMS | Encounter Summary ---
Demographics + + + | Address | [address] | | | [place] [address] | + + + | Home Phone [...] Author + + + | Author | [facility] | | | and [place] | + + + | Organization | [facility] | | | [...] Team Providers + +------+ + | Care Broth Mixer Name | Role | Phone | [...] + + | 09/22/ | Telephone | [facility] | Avi Forde MD | Other | | 2014 | | GASTROENTEROLOGY | [address], [place] | | | | | [address] [place] | [address] [place], [place] | | | | | [address] [place], [place] | [address] | | | | | [address] | | | | | | [phone] | | | +--------+ + + + [...] Damon Cert MA - 09/22/2015 8:42 AM PSTCasey saini cancelled 09/21/2015, do not reschedule. Notes to scan. documented in this encounter Plan of Treatment Not on filedocumented as of this encounter Visit Diagnoses Not on filedocumented in this encounter"
--- OUTSIDE RECORDS SUMMARY | ~2020-06-16 | XMS | Encounter Summary ---
Demographics + + + | Address | [address] | | | [place] [address] | + + + | Home Phone [...] | Specialty | Urology | Diagnoses | Sean, | [place] | | | Services | | Hematuria, | Keenan Martinez MD | Urology [address] | | | Required | | unspecified | [address] | [address] | | | | | type | [address] | [place], | | | | | | [place], | [place] [address] | | | | | | [place] [address] | Phone: | | | | | | Phone: | [phone] | | | | | | [phone] | Fax: | | | | | | Fax: | [phone] | | | | | | [phone] | | +--------+ + + + + + Reason for Visit + + + | Reason | Comments | + + + | Hematuria | | + + + Encounter Details +--------+ + + + + | Date | Type | Department | Care Team | Description | +--------+ + + + + | 10/16/ | Emergency | [facility] | Keenan Estrada MD | Hematuria, | | 2019 | | [facility] | [address] | unspecified type | | | | CENTER [address] | [place] | (Primary Dx) | | | | [place] | [address] | | | | | [address] | | | | | | [phone] | | | +--------+ + + + [...] Keenan Estrada MD 10/16/18 1644 ored, Shalonda aCstro RN - 0 10/16/2018 3:16 PM PSTPatient presenting to ED with chief complaint of blood in urine over t . Patient reports Monday and Monday, he [...] + + +--------+ + + | Urology [facility] - | Outpatient | Routin [...] | + + + + + | [facility] | [address] | [place] | [phone] | | [facility] | | [address] | | | - LABORATORY | | [...] - 1.030 | [facility] | | | [place], | | | [facility] | | [...] | | | Urine | | | [facility] | | | | | | MEDICAL | | | | | | CENTER - | | | | | | LABORATORY | | + + + + + + | Hyaline | 10-15 (A) | 0 - 2 /LPF | [facility] | | | [place], | | | [facility] | | | Urine | | | MEDICAL | | | | | | CENTER - | | | | | | LABORATORY | | + + + + + + | Urine | Urine Culture Set Up | | [facility] | | | Comment | | | [facility] | | [...] ST. | [address] | [place] | [phone] | | [facility] | | [address] | | | - LABORATORY | | [...]
--- OUTSIDE RECORDS SUMMARY | ~2020-06-16 | XMS | Encounter Summary ---
Demographics + + + | Address | [address] | | | [place] [address] | + + + | Home Phone | | + + + | Preferred Language | Unknown | + + + | Marital Status | Single | + + + | Mormonism Affiliation | [id number] | + + + [...] Team Providers + +------+ + | Care Slice Cutting Machine Operator Helper Name | Role | Phone [...] | 2019 | | MEDICAL CENTER | [address] | collision, initial | | | | EMERGENCY CENTER | [place] [address] | encounter | | | | [address] | [phone] | | | | | [place], [place] | | | | | | [address] | | | | | | [phone] | | | +--------+ + + + [...] 11/20/182027 Date of Service: 11/20/181753 Status: Attested Qa Developer: Santos Chua PA-C (Physician Event Staff) Cosigner: Vargas Alvarado MD at 11/03 Attestation signed by Vargas Alvarado MD at 11/21/181658 I was physically available for real-time consultation with the advanced mid level clinician, as supervising physician. Vargas Alvarado M.D., M.P.H. [facility] EMERGENCY DEPARTMENT History of Present Illness Patient Identification Kludip Smith is a 53 y.o. male. Patient information was obtained from the patient. History/Exam limitations: None. Behavioral Health Consultant requested? No. Patient presented to the Emergency [...] Surgeon: Jerry Redmond DPM; Location: [facility] OR; Service: Podiatry; Laterality: Left; [...] Why Contact Info Estrella Light PA-C PHYSICIAN [facility] - SURGICAL [address] [place] [address] [facility] Emergency Department Emergency Medicine If symptoms worsen or for emergent concerns. [address] [facility] [address] Santos Chua PA-C 11/20/182027 Vargas Alvarado MD 11/21/18 1650 documented in this e ncounter Plan of [...] | | Fingerstick | performed at [facility];[address] | | LAB | | | | [address];[place], [place] | | | | | | [address] | | | | + + + [...]
--- OUTSIDE RECORDS SUMMARY | ~2020-06-16 | XMS | Encounter Summary ---
Demographics + + + | Address | [address] | | | [place] [address] | + + + | Home Phone [...] Team Providers + +------+ + | Care Historical Manuscripts Curator Name | Role | Phone | + [...] | Conversion | Diagnosis unknown | | 2017 | Encounter | CONVERSION DEP [address] | Transaction, | | | | [address] | Provider Unknown | | | | | [place] | [phone] | | | | | [address] | | | | | | [phone] | | | +--------+ + + + [...] Note | + + | Glenn Valle Yuko - 05/15/2019 8:55 AM PDT This is [...]
--- OUTSIDE RECORDS SUMMARY | ~2020-06-16 | XMS | Encounter Summary ---
Demographics + + + | Address | [address] | | | [place] [address] | + + + | Home Phone [...] Team Providers + +------+ + | Care Clinical Data Management Manager Name | Role | Phone | [...] + + | 10/31/ | Hospital | [facility] | Chavo Butler MD | Neck pain; Sepsis, | | 2019 - | Encounter | [facility] | [address] | due to unspecified | | | | CARE FLO[address] | [place] [address] | organism, | | 11/28/ | | [address] | [phone] | unspecified whether | | 2020 | | [place], [place] | | acute organ | | | | [phone] | Melissa Martin S, | dysfunction present | | | | [phone] | [address] | ([facility]); Myositis of | | | | | [place] [address] | other site, | | | | | [phone] | unspecified myositis | | | | | | type; MRSA | | | | | Eve Parkinson MD | colonization; | | | | | [address] | History of | | | | | [place] [address] | penicillin allergy; | | | | | [phone] | S/P BKA (below knee | | | | | | amputation) | | | | | Shukri Crouch MD | unilateral, left | | | | | [address] | ([facility]); Ulcer of left | | | | | [place] [address] | lower extremity, | | | | | [phone] | unspecified ulcer | | | | | | stage ([facility]); Acute | | | | | Jermaine Urias MD | encephalopathy; | | | | | [address] | Gram-positive | | | | | [place] [address] | bacteremia | | | | | [phone] | | | | | | | | | | | | Tanna Rahman MD [address] | | | | | | [address] | | | | | | [place] [address] | | | | | | [phone] | | | | | | | [...] Isaac Thompson RN - 11/28/2019 1:16 PM PSTKuldip has finished his final dose of IV [...] steroid and antibiotic s went to [facility] with high-grade fever, chills, intractable neck pain, [...] of bone invol vement. Infectious disease consultationDr. Sean recommended toContinue IV vancomycin until 11/28. He [...] gm CARB/Meal; Effective Now Estrella Light PA-C [address] [address] In 1 week Basic metabolic [...] 400: 6 units and call provider aka: EMLIA REYNA Changed Medications Details insulin glargine 100 units/mL injection (pen) Inject 15 Units under the skin every evening. What changed: how much to take when to take this Another medication with the same name was removed. Continue taking this medication, and follow the directions you see here. aka: GENA SOLOSTAR lisinopril 10 mg tablet Take 1 tablet by mouth Daily. What changed: medication strength how much to take Another medication with the same name was removed. Continue taking this medication, and follow the directions you see here. aka: PRINIVIL ZESTRIL Unchanged Medications Details CEROVITE SENIOR Tabs [...] documented as of this encounter Progress Notes rBandi Dumont RN - 11/28/2019 5:26 AM PSTPt VSS. No significant events overnight. Chart review complete. ornelia-Melissa Loaiza MD - 11/27/2019 2:38 PM PSTFormatting of this note might be differ ent from the original. [facility] Service: Hospitalist Progress Note Pt: Kuldip Smith AGE/SEX: 54 y.o. male ROOM: [facility]- : 1965 PCP: Estrella Light PA-C ADMIT [...] for input(s): IRON, TIBC, PCTSAT, FERRITIN, TSH, [id number], FOLATE in the last 168 hours. No [...] Martin MD 11/27/2019 2:38 PM Juan Alberto Alaniz, [facility] - 11/27/2019 11:21 AM PST . Vancomycin [...] History -patient remains on Vancomycin therapy day Assessment/Plan -Renal function stable, minor rise from [...] might be differe nt from the original. [facility] Service: Hospitalist Progress Note Pt: Kuldip Smith [...] for input(s): IRON, TIBC, PCTSAT, FERRITIN, TSH, [id number], FOLATE in the last 168 hours. No [...] as indicated. Thank You, Alyssa Anders PharmD, [facility], 11/25/2019, 9:14 AM Tanna Sanches MD - 11/25/2019 7:[address] [facility] Service:hospitalist Progress Note Hospital Day: LOS: 25 days SUBJECTIVE Patient Summary: refer to H&P and consult note for details Per " Patient Summary: 54-year-old male with history of type 2 diabetes, periphera l vascular disease, status post left BKA 2016, history of hypertension, history of recent dr sewell use (methamphetamine) who was transferred from [facility] where he presente d with fever, chills [...] history of illicit drug use. Unfortunately, several [facility] rehabilitation centers denied admission. He is not [...] Code Status: Full Code Tanna Rahman MD 11/25/2019 Tanna Sanches MD - 11/24/2019 8:[address] [facility] Service:hospitalist Progress Note Hospital Day: LOS: 24 days SUBJECTIVE Patient Summary: refer to H&P and consult note for details Per " Patient Summary: 54-year-old male with history of type 2 diabetes, periphera l vascular disease, status post left BKA 2016, history of hypertension, history of recent dr sewell use (methamphetamine) who was transferred from [facility] where he presente d with fever, chills [...] history of illicit drug use. Unfortunately, several [facility] rehabilitation centers denied admission. He is not [...] Sanches MD - 11/23/2019 8:[address] [facility] Service:hospitalist Progress Note Hospital Day: LOS: 23 days SUBJECTIVE Patient Summary: refer to H&P and consult note for details Per " Patient Summary: 54-year-old male with history of type 2 diabetes, periphera l vascular disease, status post left BKA 2016, history of hypertension, history of recent dr sewell use (methamphetamine) who was transferred from [facility] where he presente d with fever, chills [...] history of illicit drug use. Unfortunately, several [facility] rehabilitation centers denied admission. He is not [...] Code Status: Full Code Tnana Rahman MD 11/23/2019 Phyllis Alaniz, [facility] - 11/22/2019 1:27 PM PSTFormatting of this note might be different from the evita l. Vancomycin Dosing Per Pharmacy Subjective/Objective Kuldip [...] vancomycin therapy as indicated. Thank You, Kingsley. Eliseo [facility], 11/22/2019, 1:27 PM Eden Sanchez MD - [...] would be a candidate for placement in half-way or swing bed for completion of IV antibiotics. Disposition: If placement is available, IV antibiotic orders will need to be adjusted due t o dose changes made by inpatient pharmacy in response to trough levels. Please contact ID bala [email or web address] for updated orders in the event that the patient is able to discharge to skilled nurs ing. Dr. Bustos will assume care starting 11/23/19 for any further questions. Thank you for allow ing me to participate in the care of your patient. Saravanan Sanches MD - 11/22/2019 7:[address] [facility] Service:hospitalist Progress Note Hospital Day: LOS: 22 days SUBJECTIVE Patient Summary: refer to H&P and consult note for details Per " Patient Summary: 54-year-old male with history of type 2 diabetes, periphera l vascular disease, status post left BKA 2016, history of hypertension, history of recent dr donato use (methamphetamine) who was transferred from [facility] where he presente d with fever, chills [...] history of illicit drug use. Unfortunately, several [facility] rehabilitation centers denied admission. He is not [...] Code Tanna Rahman MD 11/22/2019 Phyllis Alaniz, [facility] - 11/21/2019 2:37 PM PSTFormatting of this note might be different from the evita altman Vancomycin Dosing Per Pharmacy Subjective/Objective Kuldip Smith [...] M D - 11/21/2019 9:[address] [facility] Service: Hospitalist Progress Note Hospital Day: LOS: 21 days SUBJECTIVE Patient Summary: 54-year-old male with history of type 2 diabetes, peripheral vascular disease, status post left BKA 2016, history of hypertension, history of recent drug use (me thamphetamine) who was transferred from [facility] where he presented with fev er, chills [...] history of illicit drug use. Unfortunately, several [facility] rehabilitation centers denied admission. He is not [...] Inpatient. Code Status: Full Code Dictation and vending service technician or software, [employer], used which may contain error for similar [...] M D - 11/20/2019 9:[address] [facility] Service: Hospitalist Progress Note Hospital Day: LOS: 20 days SUBJECTIVE Patient Summary: 54-year-old male with history of type 2 diabetes, peripheral vascular disease, status post left BKA 2016, history of hypertension, history of recent drug use (me thamphetamine) who was transferred from [facility] where he presented with fev er, chills [...] 10%, HYDROcodone-acetaminophen, ondansetron OBJECTIVE Vital Signs: Vitals: 11/19/19195511/19/19199911/19/190 11/20/19 0831 BP: 116/66 116/66 105/64 122/74 [...] history of illicit drug use. Unfortunately, several [facility] rehabilitation centers denied admission. He is not [...] Inpatient. Code Status: Full Code Dictation and vending service technician or software, [employer], used which may contain error for similar [...] vancomycin therapy as indicated. Thank You, ROCHELLE YORK, PharmD, 11/19/2019, 11:32 AM Suman Cazares MD - 11/19/2019 9:[address] [facility] Service: Hospitalist Progress Note Hospital Day: LOS: 19 days SUBJECTIVE Patient Summary: 54-year-old male with history of type 2 diabetes, peripheral vascular disease, status post left BKA 2017, history of hypertension, history of recent drug use (me thamphetamine) who was transferred from [facility] where he presented with fev er, chills [...] history of illicit drug use. Unfortunately, several [facility] rehabilitation centers denied admission. He is not [...] Inpatient. Code Status: Full Code Dictation and vending service technician or software, [employer], used which may contain error for similar s ounding words even after review. Personal communication requested for any clarification. Jermaine Urias MD 11/19/2019 9:01 AM olange Haynes Phar macy Pharmacy Delivery Driver - 11/18/2019 3:20 PM PSTFormatting of this [...] therapy as indicated. Thank You, Solange Haynes, Program Strategist, 11/18/2019, 3:21 PM Associated attestation - Kingsley Gomes RPH - 11/18/2019 3:32 PM PSTLevel planned for [...] Of Risk: low Required Follow Up: 7 days(2/24 L) Leroy Timmons RD 11/18/2019 3:01 PM Jermaine Cazares MD - 11/18/2019 9:[address] [facility] Service: Hospitalist Progress Note Hospital Day: LOS: 18 days SUBJECTIVE Patient Summary: 54-year-old male with history of type 2 diabetes, peripheral vascular disease, status post left BKA 2017, history of hypertension, history of recent drug use (me thamphetamine) who was transferred from [facility] where he presented with fev er, chills [...] history of illicit drug use. Unfortunately, several [facility] rehabilitation centers denied admission. He is not [...] Inpatient. Code Status: Full Code Dictation and vending service technician or software, [employer], used which may contain error for similar [...] Jermaine Cazares MD - 11/17/2019 9:28 AM PSTFormfarzad frias of this note might be different from the original. [facility] Service: Hospitalist Progress Note Hospital Day: LOS: 17 days SUBJECTIVE Patient Summary: 54-year-old male with history of type 2 diabetes, peripheral vascular disease, status post left BKA 2017, history of hypertension, history of recent drug use (me thamphetamine) who was transferred from [facility] where he presented with fev er, chills [...] normal DATA, personally reviewed Recent Labs Lab 11/16/190 11/12/19 1918 WBC 5.95 7.52 HGB 7.3* [...] history of illicit drug use. Unfortunately, several [facility] rehabilitation centers denied admission. He is not [...] Inpatient. Code Status: Full Code Dictation and vending service technician or software, [employer], used which may contain error for similar s ounding words even after review. Personal communication requested for any clarification. Jermaine Urias MD 11/17/2019 9:28 AM Erick Shankar RN - 11/16/2019 9:48 PM [id number]: pt a/o to all, vss. Refused po famotidine this evening. bg's monitored achs, tx per sliding scale. Up indep in room with crutches, stable on feet. Pt ref using vs tonight. 0530: pt slept quietly most of shift, end of shift chart review complete. Electronically si gned by Erick Villalpando RN at 11/17/2019 5:49 AM Lucy Rodriguez RN - 11/16/2019 5 :32 PM PSTVSS throughout shift, pt cooperative, interactive, and compliant today. IV Vanco d ose adjusted per pharmacist after Vanco trough and dose given as ordered. Next trough due @1100. Hourly rounding otherwise uneventful. Lucy Bauer, RN ham, Lurdes Sanchez PharmD - 11/16/2019 11:44 AM PST Vancomycin [...] BKA Actual Weight: 72.9 kg (dosing weight) [place] Weight: 70.7 kg INDICATION: myositis, bacteremia GOAL [...] to vancomycin therapy as indicated. Thank You, Lurdes Wynn, PharmD, BCPS [phone] (available [phone]) 11/16/2019 11:28 AM Jermaine Recinos MD - 11/16/2019 9:[address] [facility] Service: Hospitalist Progress Note Hospital Day: LOS: 16 days SUBJECTIVE Patient Summary: 54-year-old male with history of type 2 diabetes, peripheral vascular disease, status post left BKA 2017, history of hypertension, history of recent drug use (me thamphetamine) who was transferred from [facility] where he presented with fev er, chills [...] ondansetron OBJECTIVE Vital Signs: Vitals: 11/15/19 1947 11/15/19200011/15/19 2326 11/16/19 0814 BP: 159/83 103/56 123/73 Pulse: 85 83 [...] Inpatient. Code Status: Full Code Dictation and vending service technician or software, [employer], used which may contain error for similar s ounding words even after review. Personal communication requested for any clarification. Jermaine Urias MD 11/16/2019 9:26 AM Lesly Benton R N - 11/15/2019 1:[address] [facility] Service: Wound Care Follow Up Note Hospital [...] Present on Hospital Admission: Yes Side: Left [place] ation: lateral Location: residual limb, LE Wound [...] any additional questions. Lesly Butler RN, CMSRN, [facility] Inpatient Wound Ostomy Care [phone] 11/15/2019 1:12 PM Jermaine Cazares M D - 11/15/2019 8:[address] [facility] Service: Hospitalist Progress Note Hospital Day: LOS: 15 days SUBJECTIVE Patient Summary: 54-year-old male with history of type 2 diabetes, peripheral vascular disease, status post left BKA 2016, history of hypertension, history of recent drug use (me thamphetamine) who was transferred from [facility] where he presented with fev er, chills and worsening neck pain. Patient had leukocytosis. CAT scan of the neck was con cerning for C4-C5 septic arthritis. Neurosurgery was consulted and recommended medical sarahnelia goodson with antibiotics. Infectious disease was consulted [...] Inpatient. Code Status: Full Code Dictation and vending service technician or software, [employer], used which may contain error for similar s ounding words even after review. Personal communication requested for any clarification. Jermaine Urias MD 11/15/2019 8:44 AM Shukri Figueroa MD - 11/14/2019 10:06 PM PST Service: Hospitalist Progress Note Hospital Day: LOS: 14 days SUBJECTIVE This is a 54-year-old male with history of heroin abuse, presented to the ED as a transfer from [facility] for high-grade fever, chills and intractable neck [...] Shukri Crouch MD 11/14/2019 10:06 PM Rafat Kaplan DO - 9:[address] [facility] Service: Infectious Diseases Progress note Hospital Day: [...] would be a candidate for placement in half-way or swing bed for completion of IV antibiotics. Disposition: If placement is available, IV antibiotic orders will need to be adjusted due t o dose changes made by inpatient pharmacy in response to trough levels. Please contact RHIANNA perales for updated orders in the event [...] Code Shukri Crouch MD 11/13/2019 10:17 PM ham, Biju Campbell mD - 11/13/2019 9:29 PM PST Vancomycin [...] BKA Actual Weight: 72.9 kg (dosing weight) [place] Weight: 70.7 kg INDICATION: myositis, bacteremia GOAL [...] to vancomycin therapy as indicated. Thank You, Lurdes Wynn PharmD, [facility] [phone] (available [phone]) 11/13/2019 8:32 PM Shukri Crouch MD - [...] mg Q12H) -level scheduled for 11/13 @ 1999 Pharmacy will continue to follow and make adjustments to vancomycin therapy as indicated. Thank You, Kingsley. LUIS Gomes, 11/12/2019, 4:09 PM Eve Wallis MD - 11/11/2019 5:[address] [facility] Service: Hospitalist Progress Note Hospital Day: LOS: 11 days SUBJECTIVE Patient Summary: From HPI / Veronica 11/05/19 The patient is a 54 y.o. male with significant past medical history of hypertension, diabet es mellitus type 2 currently diet controlled, history of peripheral vascular disease status post left BKA who recently had a nasal bleed s/p packing treated with steroid and antibiotic s went to [facility] with high-grade fever, chills, intractable neck pain [...] (99.3 F) Oral 79 18 98 % 11/10/198 (!) 174/92 37.7 C (99.9 F) Oral [...] for input(s): IRON, TIBC, PCTSAT, FERRITIN, TSH, [id number], FOLATE in the last 168 hours. Recent [...] management's assistance with placement Pain management with [employer] Electrolyte replacement. Hypertension Resumed Lisinopril 10 mg [...] Code Eve Parkinson MD 11/11/2019 12:29 PM Darren Kuldip Cabezas, Sidney rmD - 11/10/2019 7:19 PM PST Vancomycin [...] Wallis MD - 11/10/2019 5:[address] [facility] Service: Hospitalist Progress Note Hospital Day: LOS: 10 days SUBJECTIVE Patient Summary: From [facility] / Veronica 11/05/19 The patient is a 54 y.o. male with significant past medical history of hypertension, diabet es mellitus type 2 currently diet controlled, history of peripheral vascular disease status post left BKA who recently had a nasal bleed s/p packing treated with steroid and antibiotic s went to [facility] with high-grade fever, chills, intractable neck pain [...] MCV 78.2* Recent Labs Lab 11/10/19 0515 11/09/1945011/07/19 0605 11/06/19 0458 NA 135 135 -- [...] in this interval not displayed. Recent Labs 11/10/1951411/09/19450 GLU 186* 223* No results for input(s): TROPONIN, BNP in the last 72 hours. No results for input(s): PROTIME, INR, PTT in the last 168 hours. No results for input(s): IRON, TIBC, PCTSAT, FERRITIN, TSH, [id number], FOLATE in the last 168 hours. Recent [...] management's assistance with placement Pain management with [employer] Electrolyte replacement. Hypertension Resumed Lisinopril 10 mg [...] Code Eve Parkinson MD 11/10/2019 9:47 AM Montserrat Abernathy [facility] - 11/09/2019 6:32 PM PST [...] 750 mg IV q12h Rationale: Based on [facility] dosing nomogram, current renal function, and desired [...] therapy as indicated. Thank You, MONTSERRAT RICE [facility], 11/09/2019, 6:27 PM Eve Wallis MD - 11/09/2019 5:[address] [facility] Service: Hospitalist Progress Note Hospital Day: LOS: 9 days SUBJECTIVE Patient Summary: From HPI / Veronica 11/05/19 The patient is a 54 y.o. male with significant past medical history of hypertension, diabet es mellitus type 2 currently diet controlled, history of peripheral vascular disease status post left BKA who recently had a nasal bleed s/p packing treated with steroid and antibiotic s went to [facility] with high-grade fever, chills, intractable neck pain [...] kg (10/31/19 1637) Last: 72 kg (11/09/19 035) Difference: -6.6kg Weight change: 0.726 kg (1 [...] for input(s): IRON, TIBC, PCTSAT, FERRITIN, TSH, [id number], FOLATE in the last 168 hours. Recent [...] management's assistance with placement Pain management with [employer] Electrolyte replacement. Hypertension Resumed Lisinopril 10 mg [...] Parkinson MD - 11/08/2019 10:[address] [facility] Service: Hospitalist Progress Note Hospital Day: LOS: 8 days SUBJECTIVE Patient Summary: From [facility] / Veronica 11/05/19 The patient is a 54 y.o. male with significant past medical history of hypertension, diabet es mellitus type 2 currently diet controlled, history of peripheral vascular disease status post left BKA who recently had a nasal bleed s/p packing treated with steroid and antibiotic s went to [facility] with high-grade fever, chills, intractable neck pain [...] interval not displayed. Recent Labs 11/06/19 0458 GLU 131* No results for input(s): TROPONIN, BNP in the last 72 hours. No results for input(s): PROTIME, INR, PTT in the last 168 hours. No results for input(s): IRON, TIBC, PCTSAT, FERRITIN, TSH, [id number], FOLATE in the last 168 hours. Recent [...] management's assistance with placement Pain management with [employer] Electrolyte replacement. Hypertension Resumed Lisinopril 10 mg daily Diabetes mellitus type 2 Diet controlled Anemia microcytic Likely iron defeciency, Continue oral iron, FOB. Acute renal failure Resolved Saline lock IV Left limb pressure injury (lateral side), Stage 2-3, Present on admission Per Wound Care "Wound care consulted to evaluate left limb pressure injury (lateral side). Patient eric ally refused assessment-stating there was no wound [...] Code Eve Parkinson MD 11/08/2019 10:53 AM oEduardo smith, [facility] - 11/07/2019 7:14 AM PST Vancomycin Dosing [...] Regimen Admin Times Trough SCr Comments Day 10/31 1000 mg IV @ [facility] 1000 mg IV Q12H 1056 1822 12.2 @ 1709 1.43 Day 2 11/01 1000 mg IV Q12H 0617 1807 1.32 Day 3 11/02 1000 mg IV Q12H 750 mg IV Q12H 0627 1755 19.7 @ 0438 1.14 Day 4 11/03 750 mg IV Q12H 0629 2045 16.4 @ 1719 1.07 Day 5 11/04 750 mg IV Q12H 0624 1842 - Day 6 11/05 750 mg IV Q12H 0637 15.2 @ 0530 0.99 Day 7 2 Day 8 11/07 15.5 @ 0600 *SCr = mg/dL [vanco] [...] therapy as indicated. Thank You, EDUARDO FIGUEROA RP, 11/07/2019, 7:10 AM Eve Wallis MD - 11/07/2019 5:[address] [facility] Service: Hospitalist Progress Note Hospital Day: LOS: 7 days SUBJECTIVE Patient Summary: From [facility] / Veronica 11/05/19 The patient is a 54 y.o. male with significant past medical history of hypertension, diabet es mellitus type 2 currently diet controlled, history of peripheral vascular disease status post left BKA who recently had a nasal bleed s/p packing treated with steroid and antibiotic s went to [facility] with high-grade fever, chills, intractable neck pain [...] refuses communication and exam. DATA Recent Labs 11/07/19 0611/06/19 0458 WBC 8.25 7.14 HGB 7.8* 8.2* HCT [...] Lab 10/31/19 1709 IRON 10* FERRITIN 76 [id number] 565 FOLATE 5.7 Recent Labs Lab 11/04/19 [...] management's assistance with placement Pain management with [employer] Electrolyte replacement. Hypertension Resumed Lisinopril 10 mg [...] might be diff erent from the original. [facility] Service: Infectious Disease Progress Note Hospital Day: LOS: 6 days Post-Op Day: * No surgery found * SUBJECTIVE Patient Summary: Re: Neck pain and fever From ID consult note on 11/01: The patient is a 54 y.o. male with significant past medical history of type 2 diabetes mellitus, hypertension, peripheral vascular disease, history of h ursula with penicillin. He was admitted at [facility] in November, for sepsis secondary to left [...] of prednisone. He presented on 10/31/2019 at [facility] in [place], [place] complaining of f ever, chills, severe [...] of epidural phlegmon. Prior to transfer to [facility], Neurosurgery had been consulted. They recommended hospitalist admission and to proceed with MRI of the neck with contrast. The patient denied IV drug use to the admission hospitalist and also denied it during this clinical encounter. Dr. Butler noted WBC of 31,000, BUN 22, creatinine 1.43. Chest x-ray w as described to be negative and urinalysis showed no evidence of UTI. At [facility], the patient received IV vancomycin and ceftriaxone. [...] methamphetamine use. [facility] Events Overnight: Neck pain [...] respiratory PCR panel negative Blood cultures from [facility] grew GPCs grew Streptococcus agalactiae Radiology data: [...] down -Streptococcus bacteremia - Blood cultures from [facility] grew Streptococcus. Blood c ultures here with [...] might be different from the origi nal. [facility] Service: Hospitalist Progress Note Hospital Day: LOS: 6 days SUBJECTIVE Patient Summary: From [facility] / Veronica 11/05/19 The patient is a 54 y.o. male with significant past medical history of hypertension, diabet es mellitus type 2 currently diet controlled, history of peripheral vascular disease status post left BKA who recently had a nasal bleed s/p packing treated with steroid and antibiotic s went to [facility] with high-grade fever, chills, intractable neck pain [...] for IV antibiotics on discharge. 11/06/2019 Patient ryne nichols in bed, wondering aloud why his previous [...] Lab 10/31/19 1709 IRON 10* FERRITIN 76 [id number] 565 FOLATE 5.7 Recent Labs Lab 11/04/19 [...] management's assistance with placement Pain management with [employer]ly[employer] replacement. Hypertension Resumed Lisinopril 10 mg [...] Jean MD - 11/05/2019 9:43 AM PST [facility] Service: Infectious Disease Progress Note Hospital Day: LOS: 5 days Post-Op Day: * No surgery found * SUBJECTIVE Patient Summary: Re: Neck pain and fever From ID consult note on 11/01: The patient is a 54 y.o. male with significant past medical history of type 2 diabetes mellitus, hypertension, peripheral vascular disease, history of h ursula with penicillin. He was admitted at [facility] in November, for sepsis secondary to left [...] of prednisone. He presented on 10/31/2019 at [facility] in [place], [place] complaining of f ever, chills, severe [...] of epidural phlegmon. Prior to transfer to [facility], Neurosurgery had been consulted. They recommended hospitalist admission and to proceed with MRI of the neck with contrast. The patient denied IV drug use to the admission hospitalist and also denied it during this clinical encounter. Dr. Butler noted WBC of 31,000, BUN 22, creatinine 1.43. Chest x-ray w as described to be negative and urinalysis showed no evidence of UTI. At [facility], the patient received IV vancomycin and ceftriaxone. [...] methamphetamine use. [facility] was [facility] Events Overnight: Discharge planning [...] 10% sodium chloride 0.9% 100 mL/hr at 11/03/192 PRN Medications acetaminophen, Hypoglycemia Management AND POCT [...] respiratory PCR panel negative Blood cultures from [facility] grew GPCs grew Streptococcus agalactiae Radiology data: [...] down -Streptococcus bacteremia - Blood cultures from [facility] grew Streptococcus. Blood c ultures here with [...] Day 1 10/31 1000 mg IV @ [place] [facility] 1000 mg IV Q12H 1056 1822 12.2 @ 1709 1.43 Day 2 11/01 1000 mg IV Q12H 0617 1807 1.32 Day 3 2/1 1000 mg IV Q12H 750 mg IV [...] 1 on 10/31/2019 at 1056 given at [facility]. Maintenance Dose: Vancomycin 750 mg IV every 12 hours Rationale: Based on [facility] dosing nomogram, current renal function, and desired [...] as indicated. Thank You, Alyssa Anders PharmD, [facility] 11/05/2019 9:24 AM Eve Pérez MD - 11/05/2019 5:28 AM PSTFormatting of this note might be different from teto gomez. [facility] Service: Hospitalist Progress Note Hospital Day: LOS: 5 days SUBJECTIVE Patient Summary: From HPI / Veronica 11/05/19 The patient is a 54 y.o. male with significant past medical history of hypertension, diabet es mellitus type 2 currently diet controlled, history of peripheral vascular disease status post left BKA who recently had a nasal bleed s/p packing treated with steroid and antibiotic s went to [facility] with high-grade fever, chills, intractable neck pain withou t radiculopathy and found to have high-grade fever and leukocytosis with white count 30,000, CT scan of the neck was done which was concerning for infectious process case discussed wit h iber prior to admission, MRI of the neck [...] Temp Temp src Pulse Resp SpO2 Weight 11/05/19 0442 155/88 37.1 C (98.8 F) Oral 79 18 96 % 75.8 kg (167 lb 1.7 oz) 11/04/19 2308 165/86 37.1 C (98.7 F) Oral 91 [...] 18 100 % First: 78.6 kg (10/31/19 1637)Last: 75.8 kg (11/05/19441)Difference: -2.8kg Weight change: Intake/Output Summary (Last 24 hours) at 11/05/2019 05 Last data filed at 11/05/2019442 Gross per 24 hour Intake 960 ml Output 1825 ml Net -865 ml Body mass index is 24.68 kg/m. Physical Exam Vitals signs and nursing note reviewed. Constitutional: Comments: Lying in bed, w/ covers over his head. Rsfuses exam, states he if fine and to leave him alone. DATA Recent Labs 11/04/19 0611/03/19418 WBC 9.56 9.67 HGB 8.3* 8.5* HCT [...] Lab 10/31/19 1709 IRON 10* FERRITIN 76 [id number] 565 FOLATE 5.7 Recent Labs Lab 11/04/19 [...] management's assistance with placement Pain management with [employer] Electrolyte replacement. Hypertension Resumed Lisinopril 10 mg daily Diabetes mellitus type 2 Diet controlled Anemia microcytic Likely iron defeciency, Continue oral iron, FOB. Acute renal failure Continue IV hydration, DVT prophylaxis SCD and Heparin. Case management working on d/c to Swing bed for IV antibiotics. Disposition: Code Status: Full Code Eve Parkinson MD 11/05/2019 5:28 AM ornelia-Melissa Loaiza MD - 11/04/2019 3:[address] [facility] Service: Hospitalist Progress Note Pt: Kuldip Smith AGE/SEX: 54 y.o. male ROOM: [address] [place] [address] : 1965 PCP: Estrella Light PA-C ADMIT [...] steroid and antibiotic s went to [facility] with high-grade fever, chills, intractable neck pain [...] this interval not displayed. Recent Labs 11/03/19 0419 11/02/19 0438 GLU 176* 192* No results for input(s): TROPONIN, BNP in the last 72 hours. No results for input(s): PROTIME, INR, PTT in the last 168 hours. Recent Labs Lab 10/31/19 1709 IRON 10* FERRITIN 76 [id number] 565 FOLATE 5.7 Recent Labs Lab 11/04/19 [...] sagittal T2 and STIR images. Signed by: tSeve Maria Jace Sign Date/Time: 10/31/2019 11:01 PM [...] inflammation. A preliminary report was sent by [employer] with no significant discrepancy on 10/13/2019 1:38 [...] denied IV drug abuse. Pain management with [employer] Electrolyte replacement. 2. Hypertension, will recheck renal [...] Jean MD - 11/04/2019 11:01 AM PST [facility] Service: Infectious Disease Progress Note Hospital Day: LOS: 4 days Post-Op Day: * No surgery found * SUBJECTIVE Patient Summary: Re: Neck pain and fever From ID consult note on 11/01: The patient is a 54 y.o. male with significant past medical history of type 2 diabetes mellitus, hypertension, peripheral vascular disease, history of h ursula with penicillin. He was admitted at [facility] in November, for sepsis secondary to left [...] of prednisone. He presented on 10/31/2019 at [facility] in [place], [place] complaining of f ever, chills, severe [...] of epidural phlegmon. Prior to transfer to [facility], Neurosurgery had been consulted. They recommended hospitalist admission and to proceed with MRI of the neck with contrast. The patient denied IV drug use to the admission hospitalist and also denied it during this clinical encounter. Dr. Butler noted WBC of 31,000, BUN 22, creatinine 1.43. Chest x-ray w as described to be negative and urinalysis showed no evidence of UTI. At [facility], the patient received IV vancomycin and ceftriaxone. [...] methamphetamine use. [facility] Events Overnight: Noted nursing report of patient's emotional status earlier. He has been afebrile, intermittently hypertensive. Blood cultures from [facility] are reported to be Strep agalactiae in 2 sets. He has 5/10 neck pain, worse with movement. He has been afebrile with no chills or sweats. No new neurologic deficits. Denies pain at L BKA stump - refusing wound care Denies chest pain, palpitations, abdominal pain, nausea, vomiting, diarrhea, difficulty wit h urination. He expresses preference to continue therapy in [place] where he resides Scheduled Medications adult multivitamin [...] management has been consulted and looking into [facility] bed. Hold off on central line placement [...] check complete. Stacey Ceron RN Viral Zaragoza [facility] - 11/03/2019 6:12 PM PSTVanco trough returned at 16.4, within goal of 15-20 Will continue with current protocol: 750mg IV q12h. Melissa Madrid MD - 11/03/2019 4:16 PM PSTFormattin g of this note might be different from the original. [facility] Service: Hospitalist Progress Note Pt: Kuldip Smith AGE/SEX: 54 y.o. male ROOM: [address] [place] [address] : 1965 PCP: Estrella Light PA-C ADMIT DATE: 10/31/2019 TODAY'S DATE: 11/03/2019 Hospital Day/Hospital Course: LOS: 3 days SUBJECTIVE: Patient seen and examine. Continue to complain of Right neck pain 5/10, his T max is 99.4 Scheduled Medications: [...] is normal. Judgment normal. LABS: Recent Labs 11/03/19 04111/02/19 0438 WBC 9.67 12.78* HGB 8.5* 8.3* HCT 25.0* 25.0* PLT 256 284 MCV 78.0* 78.7* Recent Labs Lab 11/03/19 1511 11/03/19 0419 11/02/19 1643 11/02/19 0438 11/01/19 0405 NA -- [...] not displayed. Recent Labs 11/03/19 04111/02/19 0438 11/01/19 0405 GLU 176* 192* 113* No results for input(s): TROPONIN, BNP in the last 72 hours. No results for input(s): PROTIME, INR, PTT in the last 168 hours. Recent Labs Lab 10/31/19 1709 IRON 10* FERRITIN 76 [id number] 565 FOLATE 5.7 Recent Labs Lab 11/03/19 04110/31/19 1736 10/31/19 1709 LACTATE -- 1.5 -- [...] inflammation. A preliminary report was sent by [employer] with no significant discrepancy on 10/13/2019 1:38 [...] Robert Mcgill RN - 11/03/2019 10:31 AM PSTSC has requested follow up microbiology report from [facility] for 2/3 - there is a RN communication as such. Robert Ortiz RN Rebeca Jean MD - 11/03/2019 10:15 AM PST [facility] Service: Infectious Disease Progress Note Hospital Day: LOS: 3 days Post-Op Day: * No surgery found * SUBJECTIVE Patient Summary: Re: Neck pain and fever From ID consult note on 11/01: The patient is a 54 y.o. male with significant past medical history of type 2 diabetes mellitus, hypertension, peripheral vascular disease, history of h ursula with penicillin. He was admitted at [facility] in November, for sepsis secondary to left [...] of prednisone. He presented on 10/31/2019 at [facility] in [place], [place] complaining of f ever, chills, severe [...] of epidural phlegmon. Prior to transfer to [facility], Neurosurgery had been consulted. They recommended hospitalist admission and to proceed with MRI of the neck with contrast. The patient denied IV drug use to the admission hospitalist and also denied it during this clinical encounter. Dr. Butler noted WBC of 31,000, BUN 22, creatinine 1.43. Chest x-ray w as described to be negative and urinalysis showed no evidence of UTI. At [facility], the patient received IV vancomycin and ceftriaxone. [...] Blood cultures from [facility] grew GPCs in chains in aerobic/anaerobic bottles [...] -Gram positive bacteremia - Blood cultures from [facility] grew GPCs in chains in aerob ic/anaerobic [...] Madrid MD - 11/02/2019 12:[address] [facility] Service: Hospitalist Progress Note Pt: Kuldip Smith AGE/SEX: 54 y.o. male ROOM: [facility]- : 1965 PCP: Estrella Light PA-C ADMIT [...] of motion.exhibits no tenderness. exhibits no ed gy. Normal equal peripheral pulses. Neurological: Alert and oriented to person, place, and time. No cranial nerve deficit. E xhibits normal muscle tone. No gross motor deficits. Skin: Skin is warm. No pallor. Patient has normal capillary refill, no mottling. Psychiatric: Has a normal mood and affect. Behavior is normal. Judgment normal. LABS: Recent Labs 11/02/19 0438 11/01/19 0405 WBC 12.78* 16.29* HGB 8.3* 8.1* HCT 25.0* 24.2* PLT 284 250 MCV 78.7* 78.8* Recent Labs Lab 11/02/19 0438 11/01/19 19511/01/19 0405 NA 135 -- 136 K 3.3* [...] Lab 10/31/19 1709 IRON 10* FERRITIN 76 [id number] 565 FOLATE 5.7 Recent Labs Lab 10/31/19 [...] inflammation. A preliminary report was sent by [employer] with no significant discrepancy on 10/13/2019 1:38 [...] Heparin. Melissa Martin MD 11/02/2019 12:24 PM arkiana, Jesika harmon MD - 11/02/2019 11:14 AM PST [facility] Service: Infectious Disease Progress Note Hospital Day: LOS: 2 days Post-Op Day: * No surgery found * SUBJECTIVE Patient Summary: Re: Neck pain and fever From ID consult note on 11/01: The patient is a 54 y.o. male with significant past medical history of type 2 diabetes mellitus, hypertension, peripheral vascular disease, history of h ursula with penicillin. He was admitted at [facility] in November, for sepsis secondary to left [...] of prednisone. He presented on 10/31/2019 at [facility] in [place], [place] complaining of f ever, chills, severe [...] of epidural phlegmon. Prior to transfer to [facility], Neurosurgery had been consulted. They recommended hospitalist admission and to proceed with MRI of the neck with contrast. The patient denied IV drug use to the admission hospitalist and also denied it during this clinical encounter. Dr. Butler noted WBC of 31,000, BUN 22, creatinine 1.43. Chest x-ray w as described to be negative and urinalysis showed no evidence of UTI. At [facility], the patient received IV vancomycin and ceftriaxone. [...] and patient's nurse *Addendum: Blood cultures from [facility] grew GPCs in chains in aerobic/anaerobic bottles - torito donato up on final ID/susceptibility TTE Code Status: Full Code Rebeca Russell MD [facility]2019 [facility] - 11/02/2019 7:41 AM PSTPatient currently receiving Vanco 1gm IV q 12h. Vanco Tr at 0438 today was 19.7(15-20mcg/ml). Instructed RN to admin 0630 dose-then will Decrease dose to Vanco 750mg (10.1mg/kg Adjusted body weight) IV q 12h). Next trough 1730 2/2 (before 3rd dose) Goal Tr 15-20 mcg/ml. Indication: osteomyelitis DESTINI VARGAS [facility] Stacey Figueroa RN - 11/02/2019 4:49 AM PSTCNA reported patient having 10/10 pain in his neck. This nurse offered medication, brought to bedside. Then Isaac refused medication. Stating, "I don't wan t it right now." Stacey Ceron RN Stacey Figueroa RN - 11/02/2019 4:02 AM PSTPatient having paranoid ideations. Told the DIRECTOR OF MEDICAL STAFF SERVICES that he didn't feel safe here, wanted [...] to oncoming shift. Chart check complete. Stacey Idlewine, RN Anny Wilhelm RD - 11/01/2019 3:40 [...] 11/05/2019) Anny Navarro RD 11/01/2019 3:40 PM ornelia-Melissa Loaiza M D - 11/01/2019 3:[address] [facility] Service: Hospitalist Progress Note Pt: Kuldip Smith AGE/SEX: 54 y.o. male ROOM: [address] [place] [address] : 1965 PCP: Estrella Light PA-C ADMIT [...] Lab 10/31/19 1709 IRON 10* FERRITIN 76 [id number] 565 FOLATE 5.7 Recent Labs Lab 10/31/19 [...] inflammation. A preliminary report was sent by [employer] with no significant discrepancy on 10/13/2019 1:38 [...] O x3-4. Reluctant to respond or cooperate durin g time of administration of care. Did become verbally aggressive at times. MRI completed. Dr Darcie Finch teacher of the emotionally disturbed hospitalist notified. Diet order obtained. Will pass on all concerns and care to oncoming shift. Chart check complete. Stacey Ceron RN Eduardo Hector, [facility] - 10/31/2019 6:14 PM PSTFormatting of this note might be different from the evita l. Vancomycin Dosing Per Pharmacy Subjective/Objective Kuldip [...] | BMI 25.59 kg/m Recent Labs Lab 10/31/191708 WBC 24.61* CrCl cannot be calculated (Patient's most recent lab result is older than the maximum 3 day s allowed.). Microbiology Results (72 hrs) Procedure Component Value Units Date/Time MRSA NAAT [[id number]] Collected: 10/31/191745 Order Status: Sent Lab Status: In process Updated: 10/31/191751 Specimen: Tissue from Nares Respiratory pathogen panel, NAAT [[id number]] Collected: 10/31/191744 Order Status: Sent Lab Status: In process Updated: 10/31/191753 Specimen: Tissue from Nasopharynx Vancomycin Dosing History Date Dosing Regimen Admin Times Trough SCr Comments Day 1 10/31 1000 mg IV @ [facility] 1000 mg IV Q12H 1056 1830 1709 12.2 1.43 Day 2 11/01 Day 3 11/02 Planned 0530 (Discontinue if cultures negative) Day 4 Day 5 *SCr = mg/dL [vanco] = mcg/mL Assessment/Plan Vancomycin Load: 1000 mg (15 mg/kg) IV x 1. Given at [facility] this morning at 1056. Random level checked that resulted at 12.2. will start maintenance regimen now, sinc e level is currently below goal. Maintenance Dose: 1000 mg IV q12h (15 mg/kg/dose) Rationale: Based on [facility] dosing nomogram, current renal function, and desired trough. Luz ient previously therapeutic on 1500 mg IV [...] therapy as indicated. Thank You, EDUARDO FIGUEROA [facility], 10/31/2019, 6:09 PM documented in t his encounter H&P Notes Chavo Butler MD - 10/31/2019 5:08 PM PST Admission [...] steroid and antibiotic s went to [facility] with high-grade fever, chills, intractable neck pain [...] skin 3 (three) jan es daily. Historical ProviderMD insulin aspart (NOVOLOG) 100 units/mL injection Inject 20 Units under the skin 3 times luis enrique y (before meals). Historical ProviderMD insulin glargine (LANTUS SOLOSTAR) 100 units/mL injection (pen) Inject 20 Units into the sk in nightly. Historical Provider, insulin glargine (LANTUS) 100 units/mL injection (vial) Inject 18 Units into the skin Afte r dinner. Historical Provider, insulin glargine (LANTUS) 100 units/mL injection (vial) Inject 40 Units under the skin nigh tly. Historical ProviderMD lisinopril (PRINIVIL, ZESTRIL) 10 mg tablet 10/11/18 Yes Historical ProviderMD lisinopril (PRINIVIL, ZESTRIL) 20 mg tablet Take [...] tablet by mouth Daily. Yes Histo rical ProviderMD sildenafil (VIAGRA) 50 MG tablet Take 1 [...] w ith CT scan done in [facility] Diabetes mellitus type 2 diet controlled Acute [...] is a 54-year-old male who presented to [facility] with fever, chills, and neck pain. He [...] literature on Narcotics Anonymous groups in the [place] area. He said he is much more inclined to attend the latter. 3. Thank you for the consult. Please reconsult us as needed to help manage his care Consent This exam was initially conducted via a secure 256-bit AES encrypted bidirectional video se ssion. You have chosen to receive care through the use of telemedicine. Telemedicine enables [facility] care providers at different locations to provide [...] your medical care today? Yes. Consult origin: [facility] in [place] Referral: Dr. Martin History obtained from: Review [...] had been doing well. He lives in [place] with his parents. Margarita ramirez is not [...] inpatient drug treatment program in about [facility] in [place]. Denies IV drug abuse Family History: Negative Social History: Graduated from high school. Attended heavy [employer] trade school with his union. 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 Has two children and one granddaughte r. When he was younger he was in and out of longterm usually for alcohol related behaviors. PMH: Past [...] file Gets together: Not on file Attends buddhism service: Not on file Active member of [...] MPV 7.8 11/02/2019 [employer] MANUAL 11/02/2019 Imaging: @[id number]@ Mental Status Examination: Appearance: Somewhat disheveled and [...] WRITTEN PERMISSION TO RELEASE MENTAL HEALTH RECORDS achael Molina RN - 11/01/2019 5:12 PM PSTAssociated Order(s): [...] note might be different from the original. [facility] Service: Infectious Diseases Initial Consult Note Date [...] with penicillin. He was a dmitted at [facility] in November, for sepsis secondary to left [...] of prednisone. He presented on 10/31/2019 at [facility] in [place], [place] complaining of f ever, chills, severe [...] of epidural phlegmon. Prior to transfer to [facility], Neurosurgery had been consulted. They recommended hospitalist admission and to proceed with MRI of the neck with contrast. The patient denied IV drug use to the admission hospitalist and also denied it during this clinical encounter. Dr. Butler noted WBC of 31,000, BUN 22, creatinine 1.43. Chest x-ray w as described to be negative and urinalysis showed no evidence of UTI. At [facility], the patient received IV vancomycin and ceftriaxone. [...] if any cultures have been obtained from [facility] prior to antibiotics. Patient is not a [...] with steroid and antibiotics went to [facility] with high-grade fever, ch ills, intractable neck [...] file Gets together: Not on file Attends buddhism service: Not on file Active member of [...] Net 924 ml 11/01 07 - 11/01 1900 In: 250 [P.O.:250] Out: 650 [Urine:650] 10/30 190 - 11/01 0700 In: 2599 [P.O.:600; I.V.:1998] [...] Foster, Jorge Sign Date/Time: 10/13/2019 1:38 PM Patient Active [...] with acute onset R>L central neck pain 1 PM who prese nted to outside ED [...] Board Certified Neurosurgeon / Chief of Neurosurgery [facility] / [facility] Neuroscience [place] Office documented in this encounter Miscellaneous Notes Plan of Milena - Brandi Dumont RN - 11/27/2019 11:17 PM PST Problem: Fall Injury Risk Goal: Absence of Fall and Fall-Related Injury Outcome: Ongoing, progressing No falls or hospital acquired injury to report. lan of Milena - Justina Sharpe RN - 11/27/2019 5:34 PM PSTNo acute [...] JUSTINA GREENBERG RN lan of Milena - Martinez Oscar RN - 11/27/2019 10:22 AM PST10:22 AM [...] to monitor. Radha Alas RN lan of Deepti Diana RN - 11/23/2019 4:44 PM PSTStaff hourly rounding, pt remains injury free t his shift. Chart check complete. Deepti Brdoy RN Problem: Fall Injury Risk Goal: Absence of Fall and Fall-Related Injury Outcome: Ongoing, progressing lan of Radha Sotelo RN - 11/22/2019 10:23 PM PSTPatient's call light is within reach, he is get ting up with supervision with his crutches to get to and from bed to bathroom or chair. Plan of care reviewed with patient. Vitals stable. Radha Alas RN lan of Justina Clements RN - 11/22/2019 4:22 PM PSTIV abx [...] Pt anticipating discharge for 11/28/19. No changes sinc e last shift. Problem: Adult Inpatient Plan [...] check complete. Jen Desir RN lan of [facility] Michelle Chisholm RN - 11/20/2019 10:41 AM PSTRounded with [...] check complete. Jen Desir RN lan of Milena Michelle Chisholm RN - 11/19/2019 9:21 AM PSTRounded with [...] RN at 0 2:11 AM PSTPlan of Milena - Robert Ortiz RN - 11/17/2019 2:18 PM PSTPt stable; no ch anges noted to pt status; chart audit complete. Robert Ortiz RN lan of [facility] - Erick Leon RN - 11/17/2019 12:08 AM [...] and discharge at this time. lan of Care - Michelle Lay RN - 11/15/2019 9:41 AM PSTRou nded [...] RN at 11/15/2019 9:44 AM PSTPlan of Care - Karli Green RN - 11/14/2019 9:10 [...] and Wellbeing Outcome: Ongoing, progressing lan of Care - Justina Thornton RN - 11/14/2019 2:20 [...] drug use. 1300: spoke with Maya at [facility]- she is going to reach out to some facilities to see if they accept KRISTAA Malissaon Medicaid insurance and will get back to me.Electronically s igned by Michelle Lay RN at 11/14/2019 1:06 PM PSTPlan of Tonio Jean RN - 11/13/2019 11:21 PM PST Problem: [...] audit complete TONIO DUPONT RN lan of Justina Zavala RN - 11/13/2019 3:48 PM PSTVanco trough [...] of [facility] - Michelle Lay RN - 11/13/2019 8:49 AM [id number]: [facility] called and said they are [...] pt's status noted. Chart audit complete. Robert Ortiz, MAXX lan of Care - Michelle Chisholm RN - 11/12/2019 8:09 AM [id number]: [facility] called back and asked a few que stions about the pt. She is going to talk to her team and then call me back. Rounded with Dr Crouch and team: pt continues to be medically ready for discharge. Await ing for placement. rosanne of [facility] - Kitty Talavera RN - 11/11/2019 9:54 [...] RN at 0 3:25 AM PSTPlan of Robert Mayorga RN - 11/11/2019 10:13 AM PSTPt stable; SUBSTANCE ABUSE NURSE a ttempted to see pt but pt refused; pt still pending D/C - waiting on placement; chart audit complete. Robert Ortiz RN lan of [place] on [address], [address] - 11/11/2019 9:58 [...] Michelle Newby RN - 11/11/2019 8:57 AM [id number]: called [facility] to follow up on refer ral- no answer, left voice mail. 0915: Shaun at [facility] called back and said they can not accept the pt. 0925: sent referrals to a few other [facility] Swing Bed/SNFs. Rounded with Dr Parkinson [...] and currently in the low 200s. Dr Tesha estrada, order f or insulin requested. Chart check complete. Deepti Brody RN Problem: Fall Injury Risk Goal: Absence of Fall and Fall-Related Injury Outcome: Ongoing, progressing lan of Marybeth Feng RN - 11/09/2019 8:31 PM PSTPatient provided with education on fall ri sk precautions and signs and symptoms of worsening infection. Medicated for headache pain e arlier in shift as patient was reporting 6/10 martinez pain. Problem: Infection Goal: Infection Symptom Resolution Outcome: Ongoing, progressing Problem: Fall Injury Risk Goal: Absence of Fall and Fall-Related Injury Outcome: Ongoing, progressing Problem: Skin Injury Risk Increased Goal: Skin Health and Integrity Outcome: Ongoing, progressing lan of Mackenzie Khan RN - 11/09/2019 6:30 PM PST Problem: [...] check complete. Mackenzie Raman RN lan of [facility] - Mirlande Carbone RN - 11/09/2019 3:45 [...] Mirlande Carbone RN at 3:49 AM PSTPlan [facility] - Mackenzie Raman RN - 11/08/2019 6:17 [...] to head and neck. Medicated with PO [place]. Will continue to monitor. Mackenzie meeks RN Pt A/O x4. Afebrile. VSS. Denies nausea, vomiting, SOB or chest pain. Pt appeared to be res ting with eyes closed for majority of the day. No acute changes since previous assessment. W ill continue to monitor. Chart check complete. Mackenzie Raman RN lan of [facility] - Rebeca Russell MD - 11/08/2019 12:55 PM PSTDiscussed discharge planning with Dr. Parknison and Case Management No change in recommendations [...] to follow vancomycin dosing while in-hospital lan [facility] - Michelle Lay RN - 0 11/08/2019 11:[address] Parkinson and team: pt continues to be medically ready f or discharge. 1150: called [facility] for follow up- no answer, left voice mail. lan of [facility] - Mirlande Carbone RN - 03/2020 10:32 PM PST Problem: [...] this time. medications taken, pt sleeping lan of [facility] - Michelle Tejeda RN - 11/07/2019 8:36 AM [id number]: called [facility]- spoke with Hallie, she said she will look to see if they got the fax and will call me back. She asked me to refax the referral- sent. Verified fax number. 0905: Eneida at [facility] called back and said they do not have any beds available right now. I informed her the situation with his drug use and what not. She said that she will keep his referral in case they get an open bed. 0920: called [facility]- no answer, left voice mail. 0950: [facility] called back asking for updated doctor notes- faxed most recent ID and hospita list notes. Rounded with Dr Parkinson and team: pt continues to be medically ready for discharge- looking for placement. lan of Care - Mirlande Carbone RN - 11/06/2019 8:40 PM PST Problem: [...] drainage noted. Contacted Dr. Finch about K 3.4MD ord ered second K replacement. 8:4 3 PM PSTPlan of Care - Michelle Lay RN - 11/06/2019 9:38 AM [id number]: called [facility] Swing bed and spoke with Mariella- she said they are full. Then called Gordy at [facility]- she said she looked at his referral [...] Russell to get specific end date of [facility]. 0945: faxed most recent doctor and nurse progress notes. 1005: Dr Russell said end date is 11/28. Messaged [facility]. Rounded with Dr Parkinson and team: pt is medically ready for discharge- awaiting for [facility]. 1135: [facility] said they are unable to accept the pt. Messaged Yuan at [facility] in [place]. 1245: Yuan said she will take a [...] Michael RN - 11/05/2019 5:29 PM PSTStaff tiago rouse, pt remains injury free this shift. Chart check complete. Deepti Brody RN E lectronically signed by Deepti Brody RN at 11/05/2019 5:29 PM PSTPlan of Michelle Del Angel RN - 11/05/2019 8:08 AM [id number]: called [facility] to follow up on refer ral- spoke with Sherlyn in admissions- she said the fax on file is for their physical therapy department. refaxed referral to [phone]. Rounded with Dr Parkinson and team: pt [...] RN - 11/04/2019 4:49 PM PSTStaff hourly r ounding, pt remains injury free this shift. Chart check complete. Deepti Brody RN Problem: Fall Injury Risk Goal: Absence of Fall and Fall-Related Injury Outcome: Ongoing, progressing Problem: Pain Acute Goal: Optimal Pain Control Outcome: Ongoing, progressing lan of Michelle Newby RN - 11/04/2019 11:[address] Martin and team: pt nee ds IV antibiotics for another four weeks- pt was positive for drugs. 1125: [facility] referrals to [facility]. 1510: [facility] declined due to not having contract with insurance. Pt is from [place]- sent referrals to a few swing beds and SNFs in [place]. lan of Robert Mayorga RN - 11/03/2019 3: 10 PM PSTPt stable; K @ 3.3 - 40 mEq administered via IVP; pt became agitated about missing wound appt w/Dr. Vines in [place], when he was told that he would [...] has graciously agreed to return cart to [facility] after use.Elect ronically signed by EUNICE Castillo at 11/02/2019 6:11 PM PSTPlan of Robert Mayorga RN - 11/02/2019 3:25 PM PSTPt stable; K 3.3 - 40 mEq IV admin, tele-psyche consult ordered; ECHO completed; chart audit complete. Robert Ortiz, RN lan of [facility] - Yamini Tony RN - 11/01/2019 10:55 AM [...] Fall-Related Injury Outcome: Ongoing, progressing lan of [facility] - Michelle Lay RN - 11/01/2019 8:15 AM PSTCare Management [...] Contact Information Family Contact Information: Name: Yasmany [place] Needs Assessment Current Outpt/Agency/Support Groups: none Anticipated [...] also need to parrel evalution lan of [facility] - Naila Wright Nurse Tech - 10/31/2019 6:41 P M [...] Wellbeing Flowsheets (Taken 10/31/2019 1645 by Naila Wright Nurse Siddharth) Supportive Measures: active listening utilized;self-care encouraged;self-reflection promote [...] promote d lan of Care - H laura, Naila Blandon Nurse Tech - 10/31/2019 4:55 PM PSTPt admitted [facility] the [facility] abdonVSS. Marzena mckenna at bedside. All questions and concerns addressed. [...] + | VANCOMYCIN, TROUGH | RAISSA | 11/22/2019 | | Results [...] + | HECTOR FITZPATRICK | RAISSA | 11/13/2019 | | Results [...] + | HECTOR FITZPATRICK | RAISSA | 11/02/2019 | | Results [...] | | | POC | performed at [facility] [place] [place];[address] | | LABORATORY | | | | [address];[place], [place] | | | | | | [address] | | | | + + + + + + + + | Specimen | + + | | + + + + + + + | Performing | Address | City/State/Zipcode | Phone Number | | Organization | | | | + + + + + | [facility] | [address] | [place] [address] | [phone] | + + + + + POC Glucose (11/28/2019 7:45 AM PST) + + + + + + | Component | Value | Ref [facility] | Performed | Pathologist | | | | | At | Signature | + + + + + + | Glucose, | 91Comment: Testing | 65 - 99 mg/dL | [facility] | | | POC | performed at [facility] [place] [place];[address] | | LABORATORY | | | | [address];[place] | | | | | | [address] | | | | + + + + + + + + | Specimen | + + | | + + + + + + + | Performing | Address | City/State/Zipcode | Phone Number | | Organization | | | | + + + + + | [facility] | [address] | [place] [address] | [phone] | + + + + + POC [...] | | | POC | performed at [facility] [place] [place];[address] | | LABORATORY | | | | [address];[place] | | | | | | [address] | | | | + + + + + + + + | Specimen | + + | | + + + + + + + | Performing | Address | City/State/Zipcode | Phone Number | | Organization | | | | + + + + + | [facility] | [address] | [place] [address] | [phone] | + + + + + POC [...] | | | POC | performed at [facility] [place] [place];[address] | | LABORATORY | | | | [address];[place], [place] | | | | | | [address] | | | | + + + + + + + + | Specimen | + + | | + + + + + + + | Performing | Address | City/State/Zipcode | Phone Number | | Organization | | | | + + + + + | [facility] | [address] | [place] [address] | [phone] | + + + + + POC [...] | | | POC | performed at [facility] [place] [place];[address] | | LABORATORY | | | | [address];[place], [place] | | | | | | [address] | | | | + + + + + + + + | Specimen | + + | | + + + + + + + | Performing | Address | City/State/Zipcode | Phone Number | | Organization | | | | + + + + + | [facility] | [address] | [place] [address] | [phone] | + + + + + POC Glucose (11/27/2019 11:56 AM PST) + + + + + + | Component | Value | Ref Range | Performed | Pathologist | | | | | At | Signature | + + + + + + | Glucose, | 221 (H)Comment: Testing | 65 - 99 mg/dL | [facility] | | | POC | performed at [facility] [place] [place];[address] | | LABORATORY | | | | [address];[place] | | | | | | [address] | | | | + + + + + + + + | Specimen | + + | | + + + + + + + | Performing | Address | City/State/Zipcode | Phone Number | | Organization | | | | + + + + + | [facility] | [address] | [place] [address] | [phone] | + + + + + CBC [...] + + + | Red Blood | 3.14 (L) | 4.20 - 5.70 | [facility] | | | Cells | | M/uL | LABORATORY | | [...] 0.04Comment: Testing | 0.00 - 0.10 | [facility] | | | Absolute | performed at [facility], [address] | K/uL | LABORATORY | | | | [address], | | | | | | [place] [address] | | | | + + + + + + + + | Specimen | + + | Blood | + + + + + + + | Performing | Address | City/State/Zipcode | Phone Number | | Organization | | | | + + + + + | [facility] | [address] | [place] [address] | [phone] | + + + + + Basic [...] 46 (L)Comment: GFR <60: | >60 | [facility] | | | GFR | CHRONIC KIDNEY [...] | | | | | | MDRD IDCA traceable | | | | | | equation.Testing | | | | | | performed at [facility], [address] | | | | | | [facility], | | | | | | [place] [address] | | | | + + + + + + + + | Specimen | + + | Blood | + + + + + + + | Performing | Address | City/State/Zipcode | Phone Number | | Organization | | | | + + + + + | [facility] | [address] | [place] [address] | [phone] | + + + + + POC Glucose (11/27/2019 8:09 AM PST) + + + + + + | Component | Value | Ref Range | Performed | Pathologist | | | | | At | Signature | + + + + + + | Glucose, | 120 (H)Comment: Testing | 65 - 99 mg/dL | [facility] | | | POC | performed at [facility] [place] [place];[address] | | LABORATORY | | | | [address];[place], [place] | | | | | | [address] | | | | + + + + + + + + | Specimen | + + | | + + + + + + + | Performing | Address | City/State/Zipcode | Phone Number | | Organization | | | | + + + + + | [facility] | [address] | [place] [address] | [phone] | + + + + + POC Glucose (11/26/2019 9:07 PM PST) + + + + + + | Component | Value | Ref Range | Performed | Pathologist | | | | | At | Signature | + + + + + + | Glucose, | 137 (H)Comment: Testing | 65 - 99 mg/dL | [facility] | | | POC | performed at [facility] [place] [place];[address] | | LABORATORY | | | | [address];[place], [place] | | | | | | [address] | | | | + + + + + + + + | Specimen | + + | | + + + + + + + | Performing | Address | City/State/Zipcode | Phone Number | | Organization | | | | + + + + + | [facility] | [address] | [place] [address] | [phone] | + + + + + POC [...] | | | POC | performed at [facility] [place] [place];[address] | | LABORATORY | | | | [address];[place] | | | | | | [address] | | | | + + + + + + + + | Specimen | + + | | + + + + + + + | Performing | Address | City/State/Zipcode | Phone Number | | Organization | | | | + + + + + | [facility] | [address] | [place] [address] | [phone] | + + + + + POC [...] | | | POC | performed at [facility] [place] [place];[address] | | LABORATORY | | | | [address];[place] | | | | | | [address] | | | | + + + + + + + + | Specimen | + + | | + + + + + + + | Performing | Address | City/State/Zipcode | Phone Number | | Organization | | | | + + + + + | [facility] | [address] | [place] [address] | [phone] | + + + + + POC Glucose (11/26/2019 8:08 AM PST) + + + + + + | Component | Value | Ref Range | Performed | Pathologist | | | | | At | Signature | + + + + + + | Glucose, | 185 (H)Comment: Testing | 65 - 99 mg/dL | [facility] | | | POC | performed at [facility] [place] [place];[address] | | LABORATORY | | | | [address];[place] | | | | | | [address] | | | | + + + + + + + + | Specimen | + + | | + + + + + + + | Performing | Address | City/State/Zipcode | Phone Number | | Organization | | | | + + + + + | [facility] | [address] | [place] [address] | [phone] | + + + + + Renal [...] | | | | performed at [facility], [address] | | | | | | [facility], | | | | | | [place] [address] | | | | + + + + + + + + | Specimen | + + | | + + + + + + + | Performing | Address | City/State/Zipcode | Phone Number | | Organization | | | | + + + + + | [facility] | [address] | [place] [address] | [phone] | + + + + + CBC [...] + + + | Red Blood | 3.13 (L) | 4.20 - 5.70 | [facility] | | | Cells | | M/uL | LABORATORY | | [...] | | | | [facility], [address] | | | | | | [place] | | | | | | [address] | | | | + + + + + + + + | Specimen | + + | Blood | + + + + + + + | Performing | Address | City/State/Zipcode | Phone Number | | Organization | | | | + + + + + | [facility] | [address] | [place] [address] | [phone] | + + + + + POC Glucose (11/25/2019 9:04 PM PST) + + + + + + | Component | Value | Ref Range | Performed | Pathologist | | | | | At | Signature | + + + + + + | Glucose, | 162 (H)Comment: Testing | 65 - 99 mg/dL | [facility] | | | POC | performed at [facility] [place] [place];[address] | | LABORATORY | | | | [address];[place] | | | | | | [address] | | | | + + + + + + + + | Specimen | + + | | + + + + + + + | Performing | Address | City/State/Zipcode | Phone Number | | Organization | | | | + + + + + | [facility] | [address] | [place] [address] | [phone] | + + + + + POC [...] | | | POC | performed at [facility] [place] [place];[address] | | LABORATORY | | | | [address];[place] | | | | | | [address] | | | | + + + + + + + + | Specimen | + + | | + + + + + + + | Performing | Address | City/State/Zipcode | Phone Number | | Organization | | | | + + + + + | [facility] | [address] | [place] [address] | [phone] | + + + + + POC [...] | | | POC | performed at [facility] [place] [place];[address] | | LABORATORY | | | | [address];[place], [place] | | | | | | [address] | | | | + + + + + + + + | Specimen | + + | | + + + + + + + | Performing | Address | City/State/Zipcode | Phone Number | | Organization | | | | + + + + + | [facility] | [address] | [place] [address] | [phone] | + + + + + POC [...] | | | POC | performed at [facility] [place] [place];[address] | | LABORATORY | | | | [address];[place], [place] | | | | | | [address] | | | | + + + + + + + + | Specimen | + + | | + + + + + + + | Performing | Address | City/State/Zipcode | Phone Number | | Organization | | | | + + + + + | [facility] | [address] | [place] [address] | [phone] | + + + + + Creatinine [...] | | | | | | MDRD IDCA traceable | | | | | | equation.Testing | | | | | | performed at [facility] [place] [place];[address] | | | | | | [facility];[place], [place] | | | | | | [address] | | | | + + + + + + + + | Specimen | + + | Blood | + + + + + + + | Performing | Address | City/State/Zipcode | Phone Number | | Organization | | | | + + + + + | [facility] | [address] | [place] [address] | [phone] | + + + + + POC [...] | | | POC | performed at [facility] [place] [place];[address] | | LABORATORY | | | | [address];[place], [place] | | | | | | [address] | | | | + + + + + + + + | Specimen | + + | | + + + + + + + | Performing | Address | City/State/Zipcode | Phone Number | | Organization | | | | + + + + + | [facility] | [address] | [place] [address] | [phone] | + + + + + POC Glucose (11/24/2019 9:10 PM PST) + + + + + + | Component | Value | Ref Range | Performed | Pathologist | | | | | At | Signature | + + + + + + | Glucose, | 182 (H)Comment: Testing | 65 - 99 mg/dL | [facility] | | | POC | performed at [facility] [place] [place];[address] | | LABORATORY | | | | [address];[place] | | | | | | [address] | | | | + + + + + + + + | Specimen | + + | | + + + + + + + | Performing | Address | City/State/Zipcode | Phone Number | | Organization | | | | + + + + + | [facility] | [address] | [place] [address] | [phone] | + + + + + POC Glucose (11/24/2019 4:31 PM PST) + + + + + + | Component | Value | Ref Range | Performed | Pathologist | | | | | At | Signature | + + + + + + | Glucose, | 207 (H)Comment: Testing | 65 - 99 mg/dL | [facility] | | | POC | performed at [facility] [place] [place];[address] | | LABORATORY | | | | [address];[place] | | | | | | [address] | | | | + + + + + + + + | Specimen | + + | | + + + + + + + | Performing | Address | City/State/Zipcode | Phone Number | | Organization | | | | + + + + + | [facility] | [address] | [place] [address] | [phone] | + + + + + POC [...] | | | POC | performed at [facility] [place] [place];[address] | | LABORATORY | | | | [address];[place], [place] | | | | | | [address] | | | | + + + + + + + + | Specimen | + + | | + + + + + + + | Performing | Address | City/State/Zipcode | Phone Number | | Organization | | | | + + + + + | [facility] | [address] | [place] [address] | [phone] | + + + + + POC [...] | | | POC | performed at [facility] [place] [place];[address] | | LABORATORY | | | | [address];[place] | | | | | | [address] | | | | + + + + + + + + | Specimen | + + | | + + + + + + + | Performing | Address | City/State/Zipcode | Phone Number | | Organization | | | | + + + + + | [facility] | [address] | [place] [address] | [phone] | + + + + + POC [...] | | | POC | performed at [facility] [place] [place];[address] | | LABORATORY | | | | [address];[place] | | | | | | [address] | | | | + + + + + + + + | Specimen | + + | | + + + + + + + | Performing | Address | City/State/Zipcode | Phone Number | | Organization | | | | + + + + + | [facility] | [address] | [place] [address] | [phone] | + + + + + POC Glucose (11/23/2019 4:05 PM PST) + + + + + + | Component | Value | Ref Range | Performed | Pathologist | | | | | At | Signature | + + + + + + | Glucose, | 124 (H)Comment: Testing | 65 - 99 mg/dL | [facility] | | | POC | performed at [facility] [place] [place];[address] | | LABORATORY | | | | [address];[place] | | | | | | [address] | | | | + + + + + + + + | Specimen | + + | | + + + + + + + | Performing | Address | City/State/Zipcode | Phone Number | | Organization | | | | + + + + + | [facility] | [address] | [place] [address] | [phone] | + + + + + POC Glucose (11/23/2019 12:23 PM PST) + + + + + + | Component | Value | Ref Range | Performed | Pathologist | | | | | At | Signature | + + + + + + | Glucose, | 132 (H)Comment: Testing | 65 - 99 mg/dL | [facility] | | | POC | performed at [facility] [place] [place];[address] | | LABORATORY | | | | [address];[place], [place] | | | | | | [address] | | | | + + + + + + + + | Specimen | + + | | + + + + + + + | Performing | Address | City/State/Zipcode | Phone Number | | Organization | | | | + + + + + | [facility] | [address] | [place] [address] | [phone] | + + + + + POC [...] | | | POC | performed at [facility] [place] [place];[address] | | LABORATORY | | | | [...] LABORATORY | [address] | [place] [address] | [phone] | + + + + + CBC [...] + + + | Red Blood | 3.04 (L) | 4.20 - 5.70 | [facility] | | | Cells | | M/uL | LABORATORY | | [...] | Diff Type | AUTOMATEDComment: | | [facility] | | | | Testing performed at | | LABORATORY | | | | [facility], [address] | | | | | | [place] | | | | | | [address] | | | | + + + + + + + + | Specimen | + + | | + + + + + + + | Performing | Address | City/State/Zipcode | Phone Number | | Organization | | | | + + + + + | [facility] | [address] | [place], [place] [address] | [phone] | + + + + + Renal [...] | | | | performed at [facility], [address] | | | | | | [facility], | | | | | | [place] [address] | | | | + + + + + + + + | Specimen | + + | Blood | + + + + + + + | Performing | Address | City/State/Zipcode | Phone Number | | Organization | | | | + + + + + | [facility] | [address] | [place] [address] | [phone] | + + + + + POC [...] | | | POC | performed at [facility] [place] [place];[address] | | LABORATORY | | | | [address];[place], [place] | | | | | | [address] | | | | + + + + + + + + | Specimen | + + | | + + + + + + + | Performing | Address | City/State/Zipcode | Phone Number | | Organization | | | | + + + + + | [facility] | [address] | [place] [address] | [phone] | + + + + + POC Glucose (11/22/2019 5:05 PM PST) + + + + + + | Component | Value | Ref Range | Performed | Pathologist | | | | | At | Signature | + + + + + + | Glucose, | 194 (H)Comment: Testing | 65 - 99 mg/dL | [facility] | | | POC | performed at [facility] [place] [place];[address] | | LABORATORY | | | | [address];[place] | | | | | | [address] | | | | + + + + + + + + | Specimen | + + | | + + + + + + + | Performing | Address | City/State/Zipcode | Phone Number | | Organization | | | | + + + + + | [facility] | [address] | [place] [address] | [phone] | + + + + + POC Glucose (11/22/2019 12:07 PM PST) + + + + + + | Component | Value | Ref Range | Performed | Pathologist | | | | | At | Signature | + + + + + + | Glucose, | 258 (H)Comment: Testing | 65 - 99 mg/dL | [facility] | | | POC | performed at [facility] [place] [place];[address] | | LABORATORY | | | | [address];[place] | | | | | | [address] | | | | + + + + + + + + | Specimen | + + | | + + + + + + + | Performing | Address | City/State/Zipcode | Phone Number | | Organization | | | | + + + + + | [facility] | [address] | [place] [address] | [phone] | + + + + + Vancomycin, [...] | | | | | performed at [facility] [place] [place];[address] | | | | | | [address];[place] | | | | | | [address] | | | | + + + + + + + + | Specimen | + + | Blood | + + + + + + + | Performing | Address | City/State/Zipcode | Phone Number | | Organization | | | | + + + + + | [facility] | [address] | [place] [address] | [phone] | + + + + + POC Glucose (11/22/2019 8:41 AM PST) + + + + + + | Component | Value | Ref Range | Performed | Pathologist | | | | | At | Signature | + + + + + + | Glucose, | 119 (H)Comment: Testing | 65 - 99 mg/dL | [facility] | | | POC | performed at [facility] [place] [place];[address] | | LABORATORY | | | | [address];[place] | | | | | | [address] | | | | + + + + + + + + | Specimen | + + | | + + + + + + + | Performing | Address | City/State/Zipcode | Phone Number | | Organization | | | | + + + + + | [facility] | [address] | [place] [address] | [phone] | + + + + + CBC [...] + + + | Red Blood | 3.11 (L) | 4.20 - 5.70 | [facility] | | | Cells | | M/uL | LABORATORY | | [...] | | | | [place] [address] | | | | + + + + + + + + | Specimen | + + | | + + + + + + + | Performing | Address | City/State/Zipcode | Phone Number | | Organization | | | | + + + + + | [facility] | [address] | [place] [address] | [phone] | + + + + + Renal [...] 3.1 | 2.3 - 4.8 mg/dL | [facility] [...] | | | | performed at [facility], [address] | | | | | | [address], | | | | | | [place] [address] | | | | + + + + + + + + | Specimen | + + | Blood | + + + + + + + | Performing | Address | City/State/Zipcode | Phone Number | | Organization | | | | + + + + + | [facility] | [address] | [place] [address] | [phone] | + + + + + POC [...] | | | POC | performed at [facility] [place] [place];[address] | | LABORATORY | | | | [address];[place] | | | | | | [address] | | | | + + + + + + + + | Specimen | + + | | + + + + + + + | Performing | Address | City/State/Zipcode | Phone Number | | Organization | | | | + + + + + | [facility] | [address] | [place] [address] | [phone] | + + + + + POC Glucose (11/21/2019 5:09 PM PST) + + + + + + | Component | Value | Ref Range | Performed | Pathologist | | | | | At | Signature | + + + + + + | Glucose, | 220 (H)Comment: Testing | 65 - 99 mg/dL | [facility] | | | POC | performed at [facility] [place] [place];[address] | | LABORATORY | | | | [address];[place] | | | | | | [address] | | | | + + + + + + + + | Specimen | + + | | + + + + + + + | Performing | Address | City/State/Zipcode | Phone Number | | Organization | | | | + + + + + | [facility] | [address] | [place] [address] | [phone] | + + + + + POC Glucose (11/21/2019 11:47 AM PST) + + + + + + | Component | Value | Ref Range | Performed | Pathologist | | | | | At | Signature | + + + + + + | Glucose, | 189 (H)Comment: Testing | 65 - 99 mg/dL | [facility] | | | POC | performed at [facility] [place] [place];[address] | | LABORATORY | | | | [address];[place] | | | | | | [address] | | | | + + + + + + + + | Specimen | + + | | + + + + + + + | Performing | Address | City/State/Zipcode | Phone Number | | Organization | | | | + + + + + | [facility] | [address] | [place] [address] | [phone] | + + + + + Renal [...] | | | | | performed at [facility] [place] [place];[address] | | | | | | [facility];[place], [place] | | | | | | [address] | | | | + + + + + + + + | Specimen | + + | Blood | + + + + + + + | Performing | Address | City/State/Zipcode | Phone Number | | Organization | | | | + + + + + | [facility] | [address] | [place] [address] | [phone] | + + + + + POC [...] | | | POC | performed at [facility] [place] [place];[address] | | LABORATORY | | | | [address];[place], [place] | | | | | | [address] | | | | + + + + + + + + | Specimen | + + | | + + + + + + + | Performing | Address | City/State/Zipcode | Phone Number | | Organization | | | | + + + + + | [facility] | [address] | [place] [address] | [phone] | + + + + + POC Glucose (11/20/2019 8:21 PM PST) + + + + + + | Component | Value | Ref Range | Performed | Pathologist | | | | | At | Signature | + + + + + + | Glucose, | 205 (H)Comment: Testing | 65 - 99 mg/dL | [facility] | | | POC | performed at [facility] [place] [place];[address] | | LABORATORY | | | | [address];[place], [place] | | | | | | [address] | | | | + + + + + + + + | Specimen | + + | | + + + + + + + | Performing | Address | City/State/Zipcode | Phone Number | | Organization | | | | + + + + + | [facility] | [address] | [place] [address] | [phone] | + + + + + POC Glucose (11/20/2019 5:04 PM PST) + + + + + + | Component | Value | Ref Range | Performed | Pathologist | | | | | At | Signature | + + + + + + | Glucose, | 164 (H)Comment: Testing | 65 - 99 mg/dL | [facility] | | | POC | performed at [facility] [place] [place];[address] | | LABORATORY | | | | [address];[place] | | | | | | [address] | | | | + + + + + + + + | Specimen | + + | | + + + + + + + | Performing | Address | City/State/Zipcode | Phone Number | | Organization | | | | + + + + + | [facility] | [address] | [place] [address] | [phone] | + + + + + POC [...] | | | POC | performed at [facility] [place] [place];[address] | | LABORATORY | | | | [address];[place], [place] | | | | | | [address] | | | | + + + + + + + + | Specimen | + + | | + + + + + + + | Performing | Address | City/State/Zipcode | Phone Number | | Organization | | | | + + + + + | [facility] | [address] | [place] [address] | [phone] | + + + + + Renal [...] 3.4 | 2.3 - 4.8 mg/dL | [facility] [...] | | | | performed at [facility], [address] | | | | | | [facility], | | | | | | [place] [address] | | | | + + + + + + + + | Specimen | + + | Blood | + + + + + + + | Performing | Address | City/State/Zipcode | Phone Number | | Organization | | | | + + + + + | [facility] | [address] | [place] [address] | [phone] | + + + + + POC Glucose (11/19/2019 8:39 PM PST) + + + + + + | Component | Value | Ref Range | Performed | Pathologist | | | | | At | Signature | + + + + + + | Glucose, | 258 (H)Comment: Testing | 65 - 99 mg/dL | [facility] | | | POC | performed at [facility] [place] [place];[address] | | LABORATORY | | | | [address];[place] | | | | | | [address] | | | | + + + + + + + + | Specimen | + + | | + + + + + + + | Performing | Address | City/State/Zipcode | Phone Number | | Organization | | | | + + + + + | [facility] | [address] | [place] [address] | [phone] | + + + + + POC [...] | | | POC | performed at [facility] [place] [place];[address] | | LABORATORY | | | | [address];[place], [place] | | | | | | [address] | | | | + + + + + + + + | Specimen | + + | | + + + + + + + | Performing | Address | City/State/Zipcode | Phone Number | | Organization | | | | + + + + + | [facility] | [address] | [place] [address] | [phone] | + + + + + POC [...] | | | POC | performed at [facility] [place] [place];[address] | | LABORATORY | | | | [address];[place] | | | | | | [address] | | | | + + + + + + + + | Specimen | + + | | + + + + + + + | Performing | Address | City/State/Zipcode | Phone Number | | Organization | | | | + + + + + | [facility] | [address] | [place] [address] | [phone] | + + + + + Renal [...] 4.0 | 2.3 - 4.8 mg/dL | [facility] | | | | | | LABORATORY | | + + + + + + | Estimated | 45 (L)Comment: GFR <60: | >60 | [facility] | | | GFR | CHRONIC KIDNEY [...] | | | | | performed at [facility] [place] [place];[address] | | | | | | [facility];[place], [place] | | | | | | [address] | | | | + + + + + + + + | Specimen | + + | Blood | + + + + + + + | Performing | Address | City/State/Zipcode | Phone Number | | Organization | | | | + + + + + | [facility] | [address] | [place] [address] | [phone] | + + + + + Vancomycin, [...] | | | | | performed at [facility] [place] [place];[facility] | | | | | | [facility];[place], [place] | | | | | | [address] | | | | + + + + + + + + | Specimen | + + | Blood | + + + + + + + | Performing | Address | City/State/Zipcode | Phone Number | | Organization | | | | + + + + + | [facility] | [address] | [place] [address] | [phone] | + + + + + POC [...] | | | POC | performed at [facility] [place] [place];[address] | | LABORATORY | | | | [address];[place] | | | | | | [address] | | | | + + + + + + + + | Specimen | + + | | + + + + + + + | Performing | Address | City/State/Zipcode | Phone Number | | Organization | | | | + + + + + | [facility] | [address] | [place] [address] | [phone] | + + + + + POC [...] | | | POC | performed at [facility] [place] [place];[address] | | LABORATORY | | | | [address];[place] | | | | | | [address] | | | | + + + + + + + + | Specimen | + + | | + + + + + + + | Performing | Address | City/State/Zipcode | Phone Number | | Organization | | | | + + + + + | [facility] | [address] | [place] [address] | [phone] | + + + + + POC [...] | | | POC | performed at [facility] [place] [place];[address] | | LABORATORY | | | | [address];[place] | | | | | | [address] | | | | + + + + + + + + | Specimen | + + | | + + + + + + + | Performing | Address | City/State/Zipcode | Phone Number | | Organization | | | | + + + + + | [facility] | [address] | [place] [address] | [phone] | + + + + + POC Glucose (11/18/2019 11:23 AM PST) + + + + + + | Component | Value | Ref Range | Performed | Pathologist | | | | | At | Signature | + + + + + + | Glucose, | 227 (H)Comment: Testing | 65 - 99 mg/dL | [facility] | | | POC | performed at [facility] [place] [place];[address] | | LABORATORY | | | | [address];[place] | | | | | | [address] | | | | + + + + + + + + | Specimen | + + | | + + + + + + + | Performing | Address | City/State/Zipcode | Phone Number | | Organization | | | | + + + + + | [facility] | [address] | [place] [address] | [phone] | + + + + + Renal [...] 3.8 | 2.3 - 4.8 mg/dL | [facility] | | | | | | LABORATORY | | + + + + + + | Estimated | 47 (L)Comment: GFR <60: | >60 | [facility] [...] | | | | | performed at [facility] [place] [place];[address] | | | | | | [address];[place] | | | | | | [address] | | | | + + + + + + + + | Specimen | + + | Blood | + + + + + + + | Performing | Address | City/State/Zipcode | Phone Number | | Organization | | | | + + + + + | [facility] | [address] | [place] [address] | [phone] | + + + + + POC [...] | | | POC | performed at [facility] [place] [place];[address] | | LABORATORY | | | | [address];[place], [place] | | | | | | [address] | | | | + + + + + + + + | Specimen | + + | | + + + + + + + | Performing | Address | City/State/Zipcode | Phone Number | | Organization | | | | + + + + + | [facility] | [address] | [place] [address] | [phone] | + + + + + POC [...] | | | POC | performed at [facility] [place] [place];[address] | | LABORATORY | | | | [address];[place] | | | | | | [address] | | | | + + + + + + + + | Specimen | + + | | + + + + + + + | Performing | Address | City/State/Zipcode | Phone Number | | Organization | | | | + + + + + | [facility] | [address] | [place] [address] | [phone] | + + + + + Renal [...] 40 (L)Comment: GFR <60: | >60 | [facility] [...] W | | | | | | [facility], | | | | | | [place] [address] | | | | + + + + + + + + | Specimen | + + | Blood | + + + + + + + | Performing | Address | City/State/Zipcode | Phone Number | | Organization | | | | + + + + + | [facility] | [address] | [place] [address] | [phone] | + + + + + POC Glucose (11/16/2019 8:17 PM PST) + + + + + + | Component | Value | Ref Range | Performed | Pathologist | | | | | At | Signature | + + + + + + | Glucose, | 213 (H)Comment: Testing | 65 - 99 mg/dL | [facility] | | | POC | performed at [facility] [place] [place];[address] | | LABORATORY | | | | [address];[place] | | | | | | [address] | | | | + + + + + + + + | Specimen | + + | | + + + + + + + | Performing | Address | City/State/Zipcode | Phone Number | | Organization | | | | + + + + + | [facility] | [address] | [place] [address] | [phone] | + + + + + POC [...] | | | POC | performed at [facility] [place] [place];[address] | | LABORATORY | | | | [address];[place], [place] | | | | | | [address] | | | | + + + + + + + + | Specimen | + + | | + + + + + + + | Performing | Address | City/State/Zipcode | Phone Number | | Organization | | | | + + + + + | [facility] | [address] | [place] [address] | [phone] | + + + + + POC Glucose (11/16/2019 12:05 PM PST) + + + + + + | Component | Value | Ref Range | Performed | Pathologist | | | | | At | Signature | + + + + + + | Glucose, | 131 (H)Comment: Testing | 65 - 99 mg/dL | [facility] | | | POC | performed at [facility] [place] [place];[address] | | LABORATORY | | | | [address];[place], [place] | | | | | | [address] | | | | + + + + + + + + | Specimen | + + | | + + + + + + + | Performing | Address | City/State/Zipcode | Phone Number | | Organization | | | | + + + + + | [facility] | [address] | [place] [address] | [phone] | + + + + + Vancomycin, [...] | | | | | performed at [facility] [place] [place];[facility] | | | | | | [address] [facility];[place], [place] | | | | | | [address] | | | | + + + + + + + + | Specimen | + + | Blood | + + + + + + + | Performing | Address | City/State/Zipcode | Phone Number | | Organization | | | | + + + + + | [facility] | [address] | [place] [address] | [phone] | + + + + + POC Glucose (11/16/2019 8:13 AM PST) + + + + + + | Component | Value | Ref Range | Performed | Pathologist | | | | | At | Signature | + + + + + + | Glucose, | 99Comment: Testing | 65 - 99 mg/dL | [facility] | | | POC | performed at [facility] [place] [place];[address] | | LABORATORY | | | | [address];[place] | | | | | | [address] | | | | + + + + + + + + | Specimen | + + | | + + + + + + + | Performing | Address | City/State/Zipcode | Phone Number | | Organization | | | | + + + + + | [facility] | [address] | [place] [address] | [phone] | + + + + + CBC [...] + + + | Red Blood | 2.99 (L) | 4.20 - 5.70 | [facility] | | | Cells | | M/uL | LABORATORY | | [...] | | | Absolute | performed at [facility], [address] | K/uL | LABORATORY | | | | [facility], | | | | | | [place] [address] | | | | + + + + + + + + | Specimen | + + | | + + + + + + + | Performing | Address | City/State/Zipcode | Phone Number | | Organization | | | | + + + + + | [facility] | [address] | [place] [address] | [phone] | + + + + + Renal [...] 4.2 | 2.3 - 4.8 mg/dL | [facility] | | | | | | LABORATORY | | + + + + + + | Estimated | 53 (L)Comment: GFR <60: | >60 | [facility] | | | GFR | CHRONIC KIDNEY [...] | | | | performed at [facility], [address] | | | | | | [facility], | | | | | | [place] [address] | | | | + + + + + + + + | Specimen | + + | Blood | + + + + + + + | Performing | Address | City/State/Zipcode | Phone Number | | Organization | | | | + + + + + | [facility] | [address] | [place] [address] | [phone] | + + + + + POC [...] | | | POC | performed at [facility] [place] [place];[address] | | LABORATORY | | | | [address];[place] | | | | | | [address] | | | | + + + + + + + + | Specimen | + + | | + + + + + + + | Performing | Address | City/State/Zipcode | Phone Number | | Organization | | | | + + + + + | [facility] | [address] | [place] [address] | [phone] | + + + + + POC [...] | | | POC | performed at [facility] [place] [place];[address] | | LABORATORY | | | | [address];[place] | | | | | | [address] | | | | + + + + + + + + | Specimen | + + | | + + + + + + + | Performing | Address | City/State/Zipcode | Phone Number | | Organization | | | | + + + + + | [facility] | [address] | [place] [address] | [phone] | + + + + + POC Glucose (11/15/2019 12:11 PM PST) + + + + + + | Component | Value | Ref Range | Performed | Pathologist | | | | | At | Signature | + + + + + + | Glucose, | 165 (H)Comment: Testing | 65 - 99 mg/dL | [facility] | | | POC | performed at [facility] [place] [place];[address] | | LABORATORY | | | | [address];[place], [place] | | | | | | [address] | | | | + + + + + + + + | Specimen | + + | | + + + + + + + | Performing | Address | City/State/Zipcode | Phone Number | | Organization | | | | + + + + + | [facility] | [address] | [place] [address] | [phone] | + + + + + POC Glucose (11/15/2019 8:06 AM PST) + + + + + + | Component | Value | Ref Range | Performed | Pathologist | | | | | At | Signature | + + + + + + | Glucose, | 139 (H)Comment: Testing | 65 - 99 mg/dL | [facility] | | | POC | performed at [facility] – [place];[address] | | LABORATORY | | | | [address]io Man;[place], [place] | | | | | | [address] | | | | + + + + + + + + | Specimen | + + | | + + + + + + + | Performing | Address | City/State/Zipcode | Phone Number | | Organization | | | | + + + + + | [facility] | [address] | [place] [address] | [phone] | + + + + + POC [...] | | | POC | performed at [facility] – [place];[address] | | LABORATORY | | | | Fabio Man;[place] | | | | | | [address] | | | | + + + + + + + + | Specimen | + + | | + + + + + + + | Performing | Address | City/State/Zipcode | Phone Number | | Organization | | | | + + + + + | [facility] | [address] [facility] | [place] [address] | [phone] | + + + + + POC Glucose (11/14/2019 4:33 PM PST) + + + + + + | Component | Value | Ref Range | Performed | Pathologist | | | | | At | Signature | + + + + + + | Glucose, | 255 (H)Comment: Testing | 65 - 99 mg/dL | [facility] | | | POC | performed at [facility] [place];[address] | | LABORATORY | | | | [address];[place] | | | | | | [address] | | | | + + + + + + + + | Specimen | + + | | + + + + + + + | Performing | Address | City/State/Zipcode | Phone Number | | Organization | | | | + + + + + | [facility] | [address] | [place] [address] | [phone] | + + + + + POC Glucose (11/14/2019 12:12 PM PST) + + + + + + | Component | Value | Ref Range | Performed | Pathologist | | | | | At | Signature | + + + + + + | Glucose, | 223 (H)Comment: Testing | 65 - 99 mg/dL | [facility] | | | POC | performed at [facility] – [place];[address] | | LABORATORY | | | | [address];[place] | | | | | | [address] | | | | + + + + + + + + | Specimen | + + | | + + + + + + + | Performing | Address | City/State/Zipcode | Phone Number | | Organization | | | | + + + + + | [facility] | [address] | [place] [address] | [phone] | + + + + + Renal [...] | | | | performed at [facility], [address] | | | | | | [facility], | | | | | | [place] [address] | | | | + + + + + + + + | Specimen | + + | Blood | + + + + + + + | Performing | Address | City/State/Zipcode | Phone Number | | Organization | | | | + + + + + | [facility] | [address] | [place] [address] | [phone] | + + + + + POC [...] | | | POC | performed at [facility] [place];[address] | | LABORATORY | | | | [address];[place], [place] | | | | | | [address] | | | | + + + + + + + + | Specimen | + + | | + + + + + + + | Performing | Address | City/State/Zipcode | Phone Number | | Organization | | | | + + + + + | [facility] | [address] | [place] [address] | [phone] | + + + + + POC [...] | | | POC | performed at [facility] [place] [place];[address] | | LABORATORY | | | | [address];[place], [place] | | | | | | [address] | | | | + + + + + + + + | Specimen | + + | | + + + + + + + | Performing | Address | City/State/Zipcode | Phone Number | | Organization | | | | + + + + + | [facility] | [address] | [place] [address] | [phone] | + + + + + Vancomycin, Trough (11/13/2019 7:46 PM PST) + + + [...] RESULTS | | | | | | VERIFIEDBECKY Garcia RN 7RP @ | | | | | | 2016 DLSTesting | | | | | | performed at [facility] [place] [place];[facility] | | | | | | [address];[place], [place] | | | | | | [address] | | | | + + + + + + + + | Specimen | + + | Blood | + + + + + + + | Performing | Address | City/State/Zipcode | Phone Number | | Organization | | | | + + + + + | [facility] | [address] | [place] [address] | [phone] | + + + + + POC Glucose (11/13/2019 4:28 PM PST) + + + + + + | Component | Value | Ref Range | Performed | Pathologist | | | | | At | Signature | + + + + + + | Glucose, | 215 (H)Comment: Testing | 65 - 99 mg/dL | [facility] | | | POC | performed at [facility] [place];[address] | | LABORATORY | | | | [address];[place], [place] | | | | | | [address] | | | | + + + + + + + + | Specimen | + + | | + + + + + + + | Performing | Address | City/State/Zipcode | Phone Number | | Organization | | | | + + + + + | [facility] | [address] | [place] [address] | [phone] | + + + + + POC Glucose (11/13/2019 11:42 AM PST) + + + + + + | Component | Value | Ref Range | Performed | Pathologist | | | | | At | Signature | + + + + + + | Glucose, | 213 (H)Comment: Testing | 65 - 99 mg/dL | [facility] | | | POC | performed at [facility] [place];[address] | | LABORATORY | | | | [address];[place] | | | | | | [address] | | | | + + + + + + + + | Specimen | + + | | + + + + + + + | Performing | Address | City/State/Zipcode | Phone Number | | Organization | | | | + + + + + | [facility] | [address] | [place] [address] | [phone] | + + + + + POC [...] | | | POC | performed at [facility] [place] [place];[address] | | LABORATORY | | | | [address];[place], [place] | | | | | | [address] | | | | + + + + + + + + | Specimen | + + | | + + + + + + + | Performing | Address | City/State/Zipcode | Phone Number | | Organization | | | | + + + + + | [facility] | [address] | [place] [address] | [phone] | + + + + + Renal [...] | | | | performed at [facility], [address] | | | | | | [facility], | | | | | | [place] [address] | | | | + + + + + + + + | Specimen | + + | Blood | + + + + + + + | Performing | Address | City/State/Zipcode | Phone Number | | Organization | | | | + + + + + | [facility] | [address] | [place] [address] | [phone] | + + + + + POC Glucose (11/12/2019 8:12 PM PST) + + + + + + | Component | Value | Ref Range | Performed | Pathologist | | | | | At | Signature | + + + + + + | Glucose, | 100 (H)Comment: Testing | 65 - 99 mg/dL | [facility] | | | POC | performed at [facility] [place];[address] | | LABORATORY | | | | [address];[place] | | | | | | [address] | | | | + + + + + + + + | Specimen | + + | | + + + + + + + | Performing | Address | City/State/Zipcode | Phone Number | | Organization | | | | + + + + + | [facility] | [address] | [place] [address] | [phone] | + + + + + CBC [...] + + + | Red Blood | 2.93 (L) | 4.20 - 5.70 | [facility] | | | Cells | | M/uL | LABORATORY | | [...] LABORATORY | | | | performed at [facility] [place] [place];[address] | | | | | | [address];[place], [place] | | | | | | [address] | | | | + + + + + + + + | Specimen | + + | Blood | + + + + + + + | Performing | Address | City/State/Zipcode | Phone Number | | Organization | | | | + + + + + | [facility] | [address] | [place] [address] | [phone] | + + + + + Hemoglobin A1C (11/12/2019 7:18 PM PST) + + + + + + | Component | Value | Ref Range | Performed | Pathologist | | | | | At | Signature | + + + + + + | Hemoglobin | 8.0 (H)Comment: HbA1c | 4.0 - 6.0 % | [facility] | | | A1c | method is [...] | 183 (H)Comment: | <154 mg/dL | [facility] | | | Average | Estimated Average | | LABORATORY | | | Glucose | Glucose calculated from | | | | | | hemoglobin A1c by use of | | | | | | the ADArecommended | | | | | | formula.Testing | | | | | | performed at [facility], [address] | | | | | | [facility], | | | | | | [place] [address] | | | | + + + + + + + + | Specimen | + + | Blood | + + + + + + + | Performing | Address | City/State/Zipcode | Phone Number | | Organization | | | | + + + + + | [facility] | [address] | [place] [address] | [phone] | + + + + + POC [...] | | | POC | performed at [facility] [place] [place];[address] | | LABORATORY | | | | [address];[place] | | | | | | [address] | | | | + + + + + + + + | Specimen | + + | | + + + + + + + | Performing | Address | City/State/Zipcode | Phone Number | | Organization | | | | + + + + + | [facility] | [address] | [place] [address] | [phone] | + + + + + POC Glucose (11/12/2019 11:53 AM PST) + + + + + + | Component | Value | Ref Range | Performed | Pathologist | | | | | At | Signature | + + + + + + | Glucose, | 231 (H)Comment: Testing | 65 - 99 mg/dL | [facility] | | | POC | performed at [facility] [place] [place];[address] | | LABORATORY | | | | [address];[place] | | | | | | [address] | | | | + + + + + + + + | Specimen | + + | | + + + + + + + | Performing | Address | City/State/Zipcode | Phone Number | | Organization | | | | + + + + + | [facility] | [address] | [place] [address] | [phone] | + + + + + POC [...] | | | POC | performed at [facility] [place] [place];[address] | | LABORATORY | | | | [address];[place], [place] | | | | | | [address] | | | | + + + + + + + + | Specimen | + + | | + + + + + + + | Performing | Address | City/State/Zipcode | Phone Number | | Organization | | | | + + + + + | [facility] | [address] | [place] [address] | [phone] | + + + + + Vancomycin, [...] | | | | | performed at [facility] [place] [place];[address] | | | | | | [address];[place] | | | | | | [address] | | | | + + + + + + + + | Specimen | + + | Blood | + + + + + + + | Performing | Address | City/State/Zipcode | Phone Number | | Organization | | | | + + + + + | [facility] | [address] | [place] [address] | [phone] | + + + + + Renal [...] | | | | performed at [facility], [address] | | | | | | [facility], | | | | | | [place] [address] | | | | + + + + + + + + | Specimen | + + | Blood | + + + + + + + | Performing | Address | City/State/Zipcode | Phone Number | | Organization | | | | + + + + + | [facility] | [address] | [place] [address] | [phone] | + + + + + POC [...] | | | POC | performed at [facility] [place] [place];[address] | | LABORATORY | | | | [address];[place], [place] | | | | | | [address] | | | | + + + + + + + + | Specimen | + + | | + + + + + + + | Performing | Address | City/State/Zipcode | Phone Number | | Organization | | | | + + + + + | [facility] | [address] | [place] [address] | [phone] | + + + + + POC [...] | | | POC | performed at [facility] [place] [place];[address] | | LABORATORY | | | | [address];[place] | | | | | | [address] | | | | + + + + + + + + | Specimen | + + | | + + + + + + + | Performing | Address | City/State/Zipcode | Phone Number | | Organization | | | | + + + + + | [facility] | [address] | [place] [address] | [phone] | + + + + + POC [...] | | | POC | performed at [facility] [place] [place];[address] | | LABORATORY | | | | [address];[place] | | | | | | [address] | | | | + + + + + + + + | Specimen | + + | | + + + + + + + | Performing | Address | City/State/Zipcode | Phone Number | | Organization | | | | + + + + + | [facility] | [address] | [place] [address] | [phone] | + + + + + POC Glucose (11/11/2019 11:35 AM PST) + + + + + + | Component | Value | Ref Range | Performed | Pathologist | | | | | At | Signature | + + + + + + | Glucose, | 186 (H)Comment: Testing | 65 - 99 mg/dL | [facility] | | | POC | performed at [facility] [place] [place];[address] | | LABORATORY | | | | [address];[place] | | | | | | [address] | | | | + + + + + + + + | Specimen | + + | | + + + + + + + | Performing | Address | City/State/Zipcode | Phone Number | | Organization | | | | + + + + + | [facility] | [address] | [place] [address] | [phone] | + + + + + POC Glucose (11/11/2019 7:56 AM PST) + + + + + + | Component | Value | Ref Range | Performed | Pathologist | | | | | At | Signature | + + + + + + | Glucose, | 174 (H)Comment: Testing | 65 - 99 mg/dL | [facility] | | | POC | performed at [facility] [place] [place];[address] | | LABORATORY | | | | [address];[place], [place] | | | | | | [address] | | | | + + + + + + + + | Specimen | + + | | + + + + + + + | Performing | Address | City/State/Zipcode | Phone Number | | Organization | | | | + + + + + | [facility] | [address] | [place] [address] | [phone] | + + + + + Renal [...] | | | | performed at [facility], [address] | | | | | | [facility], | | | | | | [place] [address] | | | | + + + + + + + + | Specimen | + + | | + + + + + + + | Performing | Address | City/State/Zipcode | Phone Number | | Organization | | | | + + + + + | [facility] | [address] | [place] [address] | [phone] | + + + + + Sedimentation Rate (11/11/2019 5:46 AM PST) + + + + + + | Component | Value | Ref Range | Performed | Pathologist | | | | | At | Signature | + + + + + + | ESR | GREATER THAN 130Comment: | 0 - 20 mm/Hr | [facility] | | | | RESULT VERIFIEDTesting | | LABORATORY | | | | performed at [facility], [address] | | | | | | [address], | | | | | | [place] [address] | | | | + + + + + + + + | Specimen | + + | Blood | + + + + + + + | Performing | Address | City/State/Zipcode | Phone Number | | Organization | | | | + + + + + | [facility] | [address] | [place] [address] | [phone] | + + + + + C-Reactive Protein (11/11/2019 5:46 AM PST) + + + + + + | Component | Value | Ref Range | Performed | Pathologist | | | | | At | Signature | + + + + + + | CRP | 8.1 (H)Comment: Testing | <0.5 mg/dL | [facility] | | | | performed at [facility], [address] | | LABORATORY | | | | [address], | | | | | | [place] [address] | | | | + + + + + + + + | Specimen | + + | Blood | + + + + + + + | Performing | Address | City/State/Zipcode | Phone Number | | Organization | | | | + + + + + | [facility] | [address] | [place] [address] | [phone] | + + + + + POC Glucose (11/11/2019 4:45 AM PST) + + + + + + | Component | Value | Ref Range | Performed | Pathologist | | | | | At | Signature | + + + + + + | Glucose, | 209 (H)Comment: Testing | 65 - 99 mg/dL | [facility] | | | POC | performed at [facility] [place] [place];[address] | | LABORATORY | | | | [address];[place] | | | | | | [address] | | | | + + + + + + + + | Specimen | + + | | + + + + + + + | Performing | Address | City/State/Zipcode | Phone Number | | Organization | | | | + + + + + | [facility] | [address] | [place] [address] | [phone] | + + + + + POC [...] | | | POC | performed at [facility] [place] [place];[address] | | LABORATORY | | | | [address];[place], [place] | | | | | | [address] | | | | + + + + + + + + | Specimen | + + | | + + + + + + + | Performing | Address | City/State/Zipcode | Phone Number | | Organization | | | | + + + + + | [facility] | [address] | [place] [address] | [phone] | + + + + + POC [...] | | | POC | performed at [facility] [place] [place];[address] | | LABORATORY | | | | [address];[place] | | | | | | [address] | | | | + + + + + + + + | Specimen | + + | | + + + + + + + | Performing | Address | City/State/Zipcode | Phone Number | | Organization | | | | + + + + + | [facility] | [address] | [place] [address] | [phone] | + + + + + Vancomycin, [...] | | | | | performed at [facility] [place] [place];[facility] | | | | | | [address] [facility];[place], [place] | | | | | | [address] | | | | + + + + + + + + | Specimen | + + | Blood | + + + + + + + | Performing | Address | City/State/Zipcode | Phone Number | | Organization | | | | + + + + + | [facility] | [address] | [place] [address] | [phone] | + + + + + POC Glucose (11/10/2019 5:14 PM PST) + + + + + + | Component | Value | Ref Range | Performed | Pathologist | | | | | At | Signature | + + + + + + | Glucose, | 238 (H)Comment: Testing | 65 - 99 mg/dL | [facility] | | | POC | performed at [facility] [place] [place];[address] | | LABORATORY | | | | [address];[place] | | | | | | [address] | | | | + + + + + + + + | Specimen | + + | | + + + + + + + | Performing | Address | City/State/Zipcode | Phone Number | | Organization | | | | + + + + + | [facility] | [address] | [place] [address] | [phone] | + + + + + POC Glucose (11/10/2019 8:10 AM PST) + + + + + + | Component | Value | Ref Range | Performed | Pathologist | | | | | At | Signature | + + + + + + | Glucose, | 179 (H)Comment: Testing | 65 - 99 mg/dL | [facility] | | | POC | performed at [facility] [place] [place];[address] | | LABORATORY | | | | [address];[place], [place] | | | | | | [address] | | | | + + + + + + + + | Specimen | + + | | + + + + + + + | Performing | Address | City/State/Zipcode | Phone Number | | Organization | | | | + + + + + | [facility] | [address] | [place] [address] | [phone] | + + + + + POC [...] | | | POC | performed at [facility] [place] [place];[address] | | LABORATORY | | | | [address];[place], [place] | | | | | | [address] | | | | + + + + + + + + | Specimen | + + | | + + + + + + + | Performing | Address | City/State/Zipcode | Phone Number | | Organization | | | | + + + + + | [facility] | [address] | [place] [address] | [phone] | + + + + + Renal [...] 58 (L)Comment: GFR <60: | >60 | [facility] | | | GFR | CHRONIC KIDNEY [...] | | | | performed at [facility], [address] | | | | | | [facility], | | | | | | [place] [address] | | | | + + + + + + + + | Specimen | + + | Blood | + + + + + + + | Performing | Address | City/State/Zipcode | Phone Number | | Organization | | | | + + + + + | [facility] | [address] | [place] [address] | [phone] | + + + + + POC Glucose (11/09/2019 8:49 PM PST) + + + + + + | Component | Value | Ref Range | Performed | Pathologist | | | | | At | Signature | + + + + + + | Glucose, | 197 (H)Comment: Testing | 65 - 99 mg/dL | [facility] | | | POC | performed at [facility] [place] [place];[address] | | LABORATORY | | | | [address];[place] | | | | | | [address] | | | | + + + + + + + + | Specimen | + + | | + + + + + + + | Performing | Address | City/State/Zipcode | Phone Number | | Organization | | | | + + + + + | [facility] | [address] | [place] [address] | [phone] | + + + + + POC [...] | | | POC | performed at [facility] [place] [place];[address] | | LABORATORY | | | | [address];[place] | | | | | | [address] | | | | + + + + + + + + | Specimen | + + | | + + + + + + + | Performing | Address | City/State/Zipcode | Phone Number | | Organization | | | | + + + + + | [facility] | [address] | [place] [address] | [phone] | + + + + + POC [...] | | | POC | performed at [facility] [place] [place];[address] | | LABORATORY | | | | [address];[place] | | | | | | [address] | | | | + + + + + + + + | Specimen | + + | | + + + + + + + | Performing | Address | City/State/Zipcode | Phone Number | | Organization | | | | + + + + + | [facility] | [address] | [place] [address] | [phone] | + + + + + POC Glucose (11/09/2019 7:39 AM PST) + + + + + + | Component | Value | Ref Range | Performed | Pathologist | | | | | At | Signature | + + + + + + | Glucose, | 160 (H)Comment: Testing | 65 - 99 mg/dL | [facility] | | | POC | performed at [facility] [place] [place];[address] | | LABORATORY | | | | [address];[place] | | | | | | [address] | | | | + + + + + + + + | Specimen | + + | | + + + + + + + | Performing | Address | City/State/Zipcode | Phone Number | | Organization | | | | + + + + + | [facility] | [address] | [place] [address] | [phone] | + + + + + Renal [...] | | | | performed at [facility], [address] | | | | | | [facility], | | | | | | [place] [address] | | | | + + + + + + + + | Specimen | + + | Blood | + + + + + + + | Performing | Address | City/State/Zipcode | Phone Number | | Organization | | | | + + + + + | [facility] | [address] | [place] [address] | [phone] | + + + + + POC [...] | | | POC | performed at [facility] [place] [place];[address] | | LABORATORY | | | | [address];[place], [place] | | | | | | [address] | | | | + + + + + + + + | Specimen | + + | | + + + + + + + | Performing | Address | City/State/Zipcode | Phone Number | | Organization | | | | + + + + + | [facility] | [address] | [place] [address] | [phone] | + + + + + POC [...] | | | POC | performed at [facility] [place] [place];[address] | | LABORATORY | | | | [address];[place], [place] | | | | | | [address] | | | | + + + + + + + + | Specimen | + + | | + + + + + + + | Performing | Address | City/State/Zipcode | Phone Number | | Organization | | | | + + + + + | [facility] | [address] | [place] [address] | [phone] | + + + + + POC Glucose (11/08/2019 11:32 AM PST) + + + + + + | Component | Value | Ref Range | Performed | Pathologist | | | | | At | Signature | + + + + + + | Glucose, | 257 (H)Comment: Testing | 65 - 99 mg/dL | [facility] | | | POC | performed at [facility] [place] [place];[address] | | LABORATORY | | | | [address];[place] | | | | | | [address] | | | | + + + + + + + + | Specimen | + + | | + + + + + + + | Performing | Address | City/State/Zipcode | Phone Number | | Organization | | | | + + + + + | [facility] | [address] | [place] [address] | [phone] | + + + + + POC [...] | | | POC | performed at [facility] [place] [place];[address] | | LABORATORY | | | | [address];[place], [place] | | | | | | [address] | | | | + + + + + + + + | Specimen | + + | | + + + + + + + | Performing | Address | City/State/Zipcode | Phone Number | | Organization | | | | + + + + + | [facility] | [address] | [place] [address] | [phone] | + + + + + CBC [...] + + + | Red Blood | 3.22 (L) | 4.20 - 5.70 | [facility] | | | Cells | | M/uL | LABORATORY | | [...] | | | | [place] [address] | | | | + + + + + + + + | Specimen | + + | Blood | + + + + + + + | Performing | Address | City/State/Zipcode | Phone Number | | Organization | | | | + + + + + | [facility] | [address] | [place] [address] | [phone] | + + + + + POC [...] | | | POC | performed at [facility] [place];[address] | | LABORATORY | | | | [address];[place] | | | | | | [address] | | | | + + + + + + + + | Specimen | + + | | + + + + + + + | Performing | Address | City/State/Zipcode | Phone Number | | Organization | | | | + + + + + | [facility] | [address] | [place] [address] | [phone] | + + + + + POC [...] | | | POC | performed at [facility] [place];[address] | | LABORATORY | | | | [address];[place] | | | | | | [address] | | | | + + + + + + + + | Specimen | + + | | + + + + + + + | Performing | Address | City/State/Zipcode | Phone Number | | Organization | | | | + + + + + | [facility] | [address] | [place] [address] | [phone] | + + + + + POC Glucose (11/07/2019 11:54 AM PST) + + + + + + | Component | Value | Ref Range | Performed | Pathologist | | | | | At | Signature | + + + + + + | Glucose, | 198 (H)Comment: Testing | 65 - 99 mg/dL | [facility] | | | POC | performed at [facility] [place];[address] | | LABORATORY | | | | [address];[place] | | | | | | [address] | | | | + + + + + + + + | Specimen | + + | | + + + + + + + | Performing | Address | City/State/Zipcode | Phone Number | | Organization | | | | + + + + + | [facility] | [address] | [place] [address] | [phone] | + + + + + POC Glucose (11/07/2019 7:47 AM PST) + + + + + + | Component | Value | Ref Range | Performed | Pathologist | | | | | At | Signature | + + + + + + | Glucose, | 181 (H)Comment: Testing | 65 - 99 mg/dL | [facility] | | | POC | performed at [facility] [place];[address] | | LABORATORY | | | | [address];[place] | | | | | | [address] | | | | + + + + + + + + | Specimen | + + | | + + + + + + + | Performing | Address | City/State/Zipcode | Phone Number | | Organization | | | | + + + + + | [facility] | [address] | [place] [address] | [phone] | + + + + + CBC [...] + + + | Red Blood | 3.02 (L) | 4.20 - 5.70 | [facility] | | | Cells | | M/uL | LABORATORY | | [...] 0.06Comment: Testing | 0.00 - 0.10 | [facility] | | | Absolute | performed at [facility], [address] | K/u[address] | LABORATORY | | | | [address], | | | | | | [place] [address] | | | | + + + + + + + + | Specimen | + + | Blood | + + + + + + + | Performing | Address | City/State/Zipcode | Phone Number | | Organization | | | | + + + + + | [facility] | [address] | [place] [address] | [phone] | + + + + + Potassium (11/07/2019 6:05 AM PST) + + + + + + | Component | Value | Ref Range | Performed | Pathologist | | | | | At | Signature | + + + + + + | K | 3.5Comment: Testing | 3.5 - 4.9 | [facility] | | | | performed at [facility] [place];888 | mmol/L | LABORATORY | | | | [address];[place], [place] | | | | | | [address] | | | | + + + + + + + + | Specimen | + + | Blood | + + + + + + + | Performing | Address | City/State/Zipcode | Phone Number | | Organization | | | | + + + + + | [facility] | [address] | [place] [address] | [phone] | + + + + + Vancomycin, Trough (11/07/2019 6:05 AM PST) + + + + + + | Component | Value | Ref Range | Performed | Pathologist | | | | | At | Signature | + + + + + + | Vancomycin, | 15.5Comment: 15 to 20 | 10 - 20 ug/mL | [facility] | | | Trough | ug/mL for [...] | | | | | performed at [facility] [place];[address] | | | | | | [address];[place], [place] | | | | | | [address] | | | | + + + + + + + + | Specimen | + + | Blood | + + + + + + + | Performing | Address | City/State/Zipcode | Phone Number | | Organization | | | | + + + + + | [facility] | [address] | [place] [address] | [phone] | + + + + + POC Glucose (11/06/2019 9:10 PM PST) + + + + + + | Component | Value | Ref Range | Performed | Pathologist | | | | | At | Signature | + + + + + + | Glucose, | 210 (H)Comment: Testing | 65 - 99 mg/dL | [facility] | | | POC | performed at [facility] [place];[address] | | LABORATORY | | | | [address];[place] | | | | | | [address] | | | | + + + + + + + + | Specimen | + + | | + + + + + + + | Performing | Address | City/State/Zipcode | Phone Number | | Organization | | | | + + + + + | [facility] | [address] | [place] [address] | [phone] | + + + + + POC Glucose (11/06/2019 2:54 PM PST) + + + + + + | Component | Value | Ref Range | Performed | Pathologist | | | | | At | Signature | + + + + + + | Glucose, | 249 (H)Comment: Testing | 65 - 99 mg/dL | [facility] | | | POC | performed at [facility] [place];[address] | | LABORATORY | | | | [address];[place], [place] | | | | | | [address] | | | | + + + + + + + + | Specimen | + + | | + + + + + + + | Performing | Address | City/State/Zipcode | Phone Number | | Organization | | | | + + + + + | [facility] | [address] | [place] [address] | [phone] | + + + + + Potassium (11/06/2019 1:08 PM PST) + + + + + + | Component | Value | Ref Range | Performed | Pathologist | | | | | At | Signature | + + + + + + | K | 3.4 (L)Comment: Testing | 3.5 - 4.9 | [facility] | | | | performed at [facility] [place];888 | mmol/L | LABORATORY | | | | [address];[place] | | | | | | [address] | | | | + + + + + + + + | Specimen | + + | Blood | + + + + + + + | Performing | Address | City/State/Zipcode | Phone Number | | Organization | | | | + + + + + | [facility] | [address] [facility] | [place] [address] | [phone] | + + + + + POC [...] | | | POC | performed at [facility] [place] [place];[address] | | LABORATORY | | | | [address];[place], [place] | | | | | | [address] | | | | + + + + + + + + | Specimen | + + | | + + + + + + + | Performing | Address | City/State/Zipcode | Phone Number | | Organization | | | | + + + + + | [facility] | [address] | [place] [address] | [phone] | + + + + + POC Glucose (11/06/2019 7:50 AM PST) + + + + + + | Component | Value | Ref Range | Performed | Pathologist | | | | | At | Signature | + + + + + + | Glucose, | 137 (H)Comment: Testing | 65 - 99 mg/dL | [facility] | | | POC | performed at [facility] [place];[address] | | LABORATORY | | | | [address];[place] | | | | | | [address] | | | | + + + + + + + + | Specimen | + + | | + + + + + + + | Performing | Address | City/State/Zipcode | Phone Number | | Organization | | | | + + + + + | [facility] | [address] | [place] [address] | [phone] | + + + + + Basic [...] 8.0 (L) | 8.5 - 10.5 | [facility] | | | | | mg/dL | LABORATORY | | + + + + + + | Estimated | >60Comment: GFR <60: | >60 | [facility] | | | GFR | CHRONIC KIDNEY [...] W | | | | | | [facility], | | | | | | [place] [address] | | | | + + + + + + + + | Specimen | + + | Blood | + + + + + + + | Performing | Address | City/State/Zipcode | Phone Number | | Organization | | | | + + + + + | [facility] | [address] | [place] [address] | [phone] | + + + + + CBC [...] + + + | Red Blood | 3.09 (L) | 4.20 - 5.70 | [facility] | | | Cells | | M/uL | LABORATORY | | [...] | | | Absolute | performed at [facility], [address] | K/uL | LABORATORY | | | | [address], | | | | | | [place] [address] | | | | + + + + + + + + | Specimen | + + | Blood | + + + + + + + | Performing | Address | City/State/Zipcode | Phone Number | | Organization | | | | + + + + + | [facility] | [address] | [place] [address] | [phone] | + + + + + POC [...] | | | POC | performed at [facility] [place] [place];[address] | | LABORATORY | | | | [address];[place] | | | | | | [address] | | | | + + + + + + + + | Specimen | + + | | + + + + + + + | Performing | Address | City/State/Zipcode | Phone Number | | Organization | | | | + + + + + | [facility] | [address] | [place] [address] | [phone] | + + + + + POC Glucose (11/05/2019 4:45 PM PST) + + + + + + | Component | Value | Ref Range | Performed | Pathologist | | | | | At | Signature | + + + + + + | Glucose, | 147 (H)Comment: Testing | 65 - 99 mg/dL | [facility] | | | POC | performed at [facility] [place] [place];[address] | | LABORATORY | | | | [address];[place] | | | | | | [address] | | | | + + + + + + + + | Specimen | + + | | + + + + + + + | Performing | Address | City/State/Zipcode | Phone Number | | Organization | | | | + + + + + | [facility] | [address] | [place] [address] | [phone] | + + + + + POC Glucose (11/05/2019 11:32 AM PST) + + + + + + | Component | Value | Ref Range | Performed | Pathologist | | | | | At | Signature | + + + + + + | Glucose, | 87Comment: Testing | 65 - 99 mg/dL | [facility] | | | POC | performed at [facility] [place];[address] | | LABORATORY | | | | [address];[place] | | | | | | [address] | | | | + + + + + + + + | Specimen | + + | | + + + + + + + | Performing | Address | City/State/Zipcode | Phone Number | | Organization | | | | + + + + + | [facility] | [address] | [place] [address] | [phone] | + + + + + POC Glucose (11/05/2019 8:45 AM PST) + + + + + + | Component | Value | Ref Range | Performed | Pathologist | | | | | At | Signature | + + + + + + | Glucose, | 93Comment: Testing | 65 - 99 mg/dL | [facility] | | | POC | performed at [facility] [place] [place];[address] | | LABORATORY | | | | [address];[place] | | | | | | [address] | | | | + + + + + + + + | Specimen | + + | | + + + + + + + | Performing | Address | City/State/Zipcode | Phone Number | | Organization | | | | + + + + + | [facility] | [address] | [place] [address] | [phone] | + + + + + CBC [...] + + + | Red Blood | 3.04 (L) | 4.20 - 5.70 | [facility] | | | Cells | | M/uL | LABORATORY | | [...] | | | Absolute | performed at [facility], [address] | K/uL | LABORATORY | | | | [facility] [place], | | | | | | [place] [address] | | | | + + + + + + + + | Specimen | + + | | + + + + + + + | Performing | Address | City/State/Zipcode | Phone Number | | Organization | | | | + + + + + | [facility] | [address] | [place] [address] | [phone] | + + + + + Basic [...] | >60Comment: GFR <60: | >60 | [facility] | [...] | | | | | performed at [facility] [place] [place];[address] | | | | | | [facility];[place], [place] | | | | | | [address] | | | | + + + + + + + + | Specimen | + + | | + + + + + + + | Performing | Address | City/State/Zipcode | Phone Number | | Organization | | | | + + + + + | [facility] | [address] | [place] [address] | [phone] | + + + + + Vancomycin, [...] | | | | | performed at [facility] [place] [place];[facility] | | | | | | [facility];[place], [place] | | | | | | [address] | | | | + + + + + + + + | Specimen | + + | Blood | + + + + + + + | Performing | Address | City/State/Zipcode | Phone Number | | Organization | | | | + + + + + | [facility] | [address] | [place] [address] | [phone] | + + + + + POC Glucose (11/04/2019 8:54 PM PST) + + + + + + | Component | Value | Ref Range | Performed | Pathologist | | | | | At | Signature | + + + + + + | Glucose, | 180 (H)Comment: Testing | 65 - 99 mg/dL | [facility] | | | POC | performed at [facility] [place] [place];[address] | | LABORATORY | | | | [address];[place] | | | | | | [address] | | | | + + + + + + + + | Specimen | + + | | + + + + + + + | Performing | Address | City/State/Zipcode | Phone Number | | Organization | | | | + + + + + | [facility] | [address] | [place] [address] | [phone] | + + + + + POC Glucose (11/04/2019 4:26 PM PST) + + + + + + | Component | Value | Ref Range | Performed | Pathologist | | | | | At | Signature | + + + + + + | Glucose, | 168 (H)Comment: Testing | 65 - 99 mg/dL | [facility] | | | POC | performed at [facility] [place] [place];[address] | | LABORATORY | | | | [address];[place] | | | | | | [address] | | | | + + + + + + + + | Specimen | + + | | + + + + + + + | Performing | Address | City/State/Zipcode | Phone Number | | Organization | | | | + + + + + | [facility] | [address] | [place] [address] | [phone] | + + + + + POC [...] | | | POC | performed at [facility] [place] [place];[address] | | LABORATORY | | | | [address];[place], [place] | | | | | | [address] | | | | + + + + + + + + | Specimen | + + | | + + + + + + + | Performing | Address | City/State/Zipcode | Phone Number | | Organization | | | | + + + + + | [facility] | [address] | [place] [address] | [phone] | + + + + + POC [...] | | | POC | performed at [facility] [place] [place];[address] | | LABORATORY | | | | [address];[place] | | | | | | [address] | | | | + + + + + + + + | Specimen | + + | | + + + + + + + | Performing | Address | City/State/Zipcode | Phone Number | | Organization | | | | + + + + + | [facility] | [address] | [place] [address] | [phone] | + + + + + CK Total (11/04/2019 6:10 AM PST) + + + + + + | Component | Value | Ref Range | Performed | Pathologist | | | | | At | Signature | + + + + + + | CK TOTAL | 94Comment: Testing | 55 - 400 U/L | [facility] | | | | performed at [facility] [place] [place];[address] | | LABORATORY | | | | [address];[place], [place] | | | | | | [address] | | | | + + + + + + + + | Specimen | + + | | + + + + + + + | Performing | Address | City/State/Zipcode | Phone Number | | Organization | | | | + + + + + | [facility] | [address] | [place] [address] | [phone] | + + + + + CBC [...] + + + | Red Blood | 3.17 (L) | 4.20 - 5.70 | [facility] | | | Cells | | M/uL | LABORATORY | | [...] 0.08Comment: Testing | 0.00 - 0.10 | [facility] | | | Absolute | performed at [facility] [place] [place];[address] | K/uL | LABORATORY | | | | [address];[place] | | | | | | [address] | | | | + + + + + + + + | Specimen | + + | Blood | + + + + + + + | Performing | Address | City/State/Zipcode | Phone Number | | Organization | | | | + + + + + | [facility] | [address] | [place] [address] | [phone] | + + + + + Potassium (11/04/2019 6:10 AM PST) + + + + + + | Component | Value | Ref Range | Performed | Pathologist | | | | | At | Signature | + + + + + + | K | 3.2 (L)Comment: Testing | 3.5 - 4.9 | [facility] | | | | performed at [facility] [place] [place];888 | mmol/L | LABORATORY | | | | [address];[place], [place] | | | | | | [address] | | | | + + + + + + + + | Specimen | + + | Blood | + + + + + + + | Performing | Address | City/State/Zipcode | Phone Number | | Organization | | | | + + + + + | [facility] | [address] | [place] [address] | [phone] | + + + + + Sedimentation Rate (11/04/2019 6:10 AM PST) + + + + + + | Component | Value | Ref Range | Performed | Pathologist | | | | | At | Signature | + + + + + + | ESR | 116 (H)Comment: Testing | 0 - 20 mm/Hr | [facility] | | | | performed at [facility] [place] [place];[address] | | LABORATORY | | | | [address];[place] | | | | | | [address] | | | | + + + + + + + + | Specimen | + + | Blood | + + + + + + + | Performing | Address | City/State/Zipcode | Phone Number | | Organization | | | | + + + + + | [facility] | [address] | [place] [address] | [phone] | + + + + + C-Reactive Protein (11/04/2019 6:10 AM PST) + + + + + + | Component | Value | Ref Range | Performed | Pathologist | | | | | At | Signature | + + + + + + | CRP | 12.9 (H)Comment: Testing | <0.5 mg/dL | [facility] | | | | performed at [facility] [place] [place];[address] | | LABORATORY | | | | [address];[place] | | | | | | [address] | | | | + + + + + + + + | Specimen | + + | Blood | + + + + + + + | Performing | Address | City/State/Zipcode | Phone Number | | Organization | | | | + + + + + | [facility] | [address] | [place] [address] | [phone] | + + + + + POC [...] | | | POC | performed at [facility] [place] [place];[address] | | LABORATORY | | | | [address];[place] | | | | | | [address] | | | | + + + + + + + + | Specimen | + + | | + + + + + + + | Performing | Address | City/State/Zipcode | Phone Number | | Organization | | | | + + + + + | [facility] | [address] | [place] [address] | [phone] | + + + + + Vancomycin, [...] | | | | | performed at [facility] [place] [place];[address] | | | | | | [address] [...] | + + + + + | [facility] | [address] | [place] [address] | [phone] | + + + + + Potassium (11/03/2019 3:11 PM PST) + + + + + + | Component | Value | Ref Range | Performed | Pathologist | | | | | At | Signature | + + + + + + | K | 3.6Comment: Testing | 3.5 - 4.9 | [facility] | | | | performed at [facility] [place] [place];[address] | mmol/L | LABORATORY | | | | [address];[place] | | | | | | [address] | | | | + + + + + + + + | Specimen | + + | Blood | + + + + + + + | Performing | Address | City/State/Zipcode | Phone Number | | Organization | | | | + + + + + | [facility] | [address] [facility] | [place] [address] | [phone] | + + + + + POC [...] | | | POC | performed at [facility] [place] [place];[address] | | LABORATORY | | | | [address];[place] | | | | | | [address] | | | | + + + + + + + + | Specimen | + + | | + + + + + + + | Performing | Address | City/State/Zipcode | Phone Number | | Organization | | | | + + + + + | [facility] | [address] | [place] [address] | [phone] | + + + + + ECHO [...] Testing | 65 - 99 mg/dL | [facility] | | | POC | performed at [facility] [place] [place];[address] | | LABORATORY | | | | [address];[place], [place] | | | | | | [address] | | | | + + + + + + + + | Specimen | + + | | + + + + + + + | Performing | Address | City/State/Zipcode | Phone Number | | Organization | | | | + + + + + | [facility] | [address] | [place] [address] | [phone] | + + + + + C-Reactive Protein (11/03/2019 4:19 AM PST) + + + + + + | Component | Value | Ref Range | Performed | Pathologist | | | | | At | Signature | + + + + + + | CRP | 14.3 (H)Comment: Testing | <0.5 mg/dL | [facility] | | | | performed at [facility] [place] [place];[address] | | LABORATORY | | | | [address];[place], [place] | | | | | | [address] | | | | + + + + + + + + | Specimen | + + | Blood | + + + + + + + | Performing | Address | City/State/Zipcode | Phone Number | | Organization | | | | + + + + + | [facility] | [address] | [place] [address] | [phone] | + + + + + Sedimentation Rate (11/03/2019 4:19 AM PST) + + + + + + | Component | Value | Ref Range | Performed | Pathologist | | | | | At | Signature | + + + + + + | ESR | 118 (H)Comment: Testing | 0 - 20 mm/Hr | [facility] | | | | performed at [facility] [place] [place];[address] | | LABORATORY | | | | [address];[place] | | | | | | [address] | | | | + + + + + + + + | Specimen | + + | Blood | + + + + + + + | Performing | Address | City/State/Zipcode | Phone Number | | Organization | | | | + + + + + | [facility] | [address] | [place] [address] | [phone] | + + + + + CBC [...] + + + | Red Blood | 3.20 (L) | 4.20 - 5.70 | [facility] | | | Cells | | M/uL | LABORATORY | | [...] | | | Absolute | performed at [facility] [place] [place];[address] | K/uL | LABORATORY | | | | [address];[place] | | | | | | [address] | | | | + + + + + + + + | Specimen | + + | Blood | + + + + + + + | Performing | Address | City/State/Zipcode | Phone Number | | Organization | | | | + + + + + | [facility] | [address] | [place] [address] | [phone] | + + + + + Comprehensive [...] | >60Comment: GFR <60: | >60 | [facility] | [...] | | | | | | [facility] traceable | | | | | | equation.Testing | | | | | | performed at [facility] [place] [place];[address] | | | | | | [facility];[place], [place] | | | | | | [address] | | | | + + + + + + + + | Specimen | + + | Blood | + + + + + + + | Performing | Address | City/State/Zipcode | Phone Number | | Organization | | | | + + + + + | [facility] | [address] | [place] [address] | [phone] | + + + + + POC Glucose (11/02/2019 8:41 PM PST) + + + + + + | Component | Value | Ref Range | Performed | Pathologist | | | | | At | Signature | + + + + + + | Glucose, | 208 (H)Comment: Testing | 65 - 99 mg/dL | [facility] | | | POC | performed at [facility] [place] [place];[address] | | LABORATORY | | | | [address];[place] | | | | | | [address] | | | | + + + + + + + + | Specimen | + + | | + + + + + + + | Performing | Address | City/State/Zipcode | Phone Number | | Organization | | | | + + + + + | [facility] | [address] | [place] [address] | [phone] | + + + + + POC Glucose (11/02/2019 5:10 PM PST) + + + + + + | Component | Value | Ref Range | Performed | Pathologist | | | | | At | Signature | + + + + + + | Glucose, | 254 (H)Comment: Testing | 65 - 99 mg/dL | [facility] | | | POC | performed at [facility] – [place];[address] | | LABORATORY | | | | [address];[place] | | | | | | [address] | | | | + + + + + + + + | Specimen | + + | | + + + + + + + | Performing | Address | City/State/Zipcode | Phone Number | | Organization | | | | + + + + + | [facility] | [address] | [place] [address] | [phone] | + + + + + Potassium (11/02/2019 4:43 PM PST) + + + + + + | Component | Value | Ref Range | Performed | Pathologist | | | | | At | Signature | + + + + + + | K | 3.5Comment: Testing | 3.5 - 4.9 | [facility] | | | | performed at [facility] – [place];888 | mmol/L | LABORATORY | | | | [facility];[place], [place] | | | | | | [address] | | | | + + + + + + + + | Specimen | + + | Blood | + + + + + + + | Performing | Address | City/State/Zipcode | Phone Number | | Organization | | | | + + + + + | [facility] | [address] | [place] [address] | [phone] | + + + + + POC [...] | | | POC | performed at [facility] – [place];[address] | | LABORATORY | | | | [address];[place], [place] | | | | | | [address] | | | | + + + + + + + + | Specimen | + + | | + + + + + + + | Performing | Address | City/State/Zipcode | Phone Number | | Organization | | | | + + + + + | [facility] | [address] | [place] [address] | [phone] | + + + + + POC Glucose (11/02/2019 7:39 AM PST) + + + + + + | Component | Value | Ref Range | Performed | Pathologist | | | | | At | Signature | + + + + + + | Glucose, | 180 (H)Comment: Testing | 65 - 99 mg/dL | [facility] | | | POC | performed at [facility] – [place];[address] | | LABORATORY | | | | [address];[place] | | | | | | [address] | | | | + + + + + + + + | Specimen | + + | | + + + + + + + | Performing | Address | City/State/Zipcode | Phone Number | | Organization | | | | + + + + + | [facility] | [address] | [place] [address] | [phone] | + + + + + HIV 1 and 2 Ab, Reflex (11/02/2019 4:38 AM PST) + + + + + + | Component | Value | Ref Range | Performed | Pathologist | | | | | At | Signature | + + + + + + | HIV 1 and 2 | NON REACTIVEComment: THE | NR | [facility] | | | Ab | NON REACTIVE HIV 1/2 | | LABORATORY | | | | RESULT INDICATES THAT | | | | | | NEITHER ANTIBODIES NOR | | | | | | [id number] TO HIV 1/2 | | | | | | HAVE BEEN DETECTED IN | | | | | | THIS SPECIMEN. THIS | | | | | | RESULT DOES NOTPRECLUDE | | | | | | PREVIOUS EXPOSURE OR | | | | | | INFECTION.Testing | | | | | | performed at [facility], [address] | | | | | | [facility], | | | | | | [place] [address] | | | | + + + + + + + + | Specimen | + + | | + + + + + + + | Performing | Address | City/State/Zipcode | Phone Number | | Organization | | | | + + + + + | [facility] | [address] | [place] [address] | [phone] | + + + + + CBC [...] + + + | Red Blood | 3.17 (L) | 4.20 - 5.70 | [facility] | | | Cells | | M/uL | LABORATORY | | [...] at | | | | | | [facility], [address] [facility] | | | | | | [place], [place] | | | | | | [address] | | | | + + + + + + + + | Specimen | + + | Blood | + + + + + + + | Performing | Address | City/State/Zipcode | Phone Number | | Organization | | | | + + + + + | [facility] | [address] | [place] [address] | [phone] | + + + + + Hepatitis C Ab (11/02/2019 4:38 AM PST) + + + + + + | Component | Value | Ref Range | Performed | Pathologist | | | | | At | Signature | + + + + + + | HCV Ab | NON REACTIVEComment: | NR | [facility] | | | | Absence of Hepatitis [...] | | | | performed at [facility], [address] | | | | | | [address] [facility], | | | | | | [place] [address] | | | | + + + + + + + + | Specimen | + + | Blood | + + + + + + + | Performing | Address | City/State/Zipcode | Phone Number | | Organization | | | | + + + + + | [facility] | [address] | [place] [address] | [phone] | + + + + + Hepatitis B Core Ab, Total (11/02/2019 4:38 AM PST) + + + + + + | Component | Value | Ref Range | Performed | Pathologist | | | | | At | Signature | + + + + + + | Hepatitis B | NON REACTIVEComment: | NR | [facility] | | | Core Ab | Testing performed at | | LABORATORY | | | Total | [facility], [address] | | | | [address], [place], [place] | | | | | | [address] | | | | + + + + + + + + | Specimen | + + | Blood | + + + + + + + | Performing | Address | City/State/Zipcode | Phone Number | | Organization | | | | + + + + + | [facility] | [address] | [place] [address] | [phone] | + + + + + Hepatitis B Surface Ag (11/02/2019 4:38 AM PST) + + + + + + | Component | Value | Ref Range | Performed | Pathologist | | | | | At | Signature | + + + + + + | Hepatitis B | NON REACTIVEComment: | NR | [facility] | | | Surface Ag | Testing performed at | | LABORATORY | | | | [facility], [address] | | | | | | [place] | | | | | | [address] | | | | + + + + + + + + | Specimen | + + | Blood | + + + + + + + | Performing | Address | City/State/Zipcode | Phone Number | | Organization | | | | + + + + + | [facility] | [address] | [place] [address] | [phone] | + + + + + Hepatitis [...] | | | | performed at [facility], [address] | | | | | | [facility], | | | | | | [place] [address] | | | | + + + + + + + + | Specimen | + + | Blood | + + + + + + + | Performing | Address | City/State/Zipcode | Phone Number | | Organization | | | | + + + + + | [facility] | [address] | [place] [address] | [phone] | + + + + + Magnesium (11/02/2019 4:38 AM PST) + + + + + + | Component | Value | Ref Range | Performed | Pathologist | | | | | At | Signature | + + + + + + | Magnesium | 1.9Comment: Testing | 1.7 - 2.4 mg/dL | [facility] | | | | performed at [facility], [address] | | LABORATORY | | | | [address], | | | | | | [place] [address] | | | | + + + + + + + + | Specimen | + + | Blood | + + + + + + + | Performing | Address | City/State/Zipcode | Phone Number | | Organization | | | | + + + + + | [facility] | [address] | [place] [address] | [phone] | + + + + + Vancomycin, [...] | | | | | performed at [facility] [place] [place];[facility] | | | | | | [facility];[place], [place] | | | | | | [address] | | | | + + + + + + + + | Specimen | + + | Blood | + + + + + + + | Performing | Address | City/State/Zipcode | Phone Number | | Organization | | | | + + + + + | [facility] | [address] | [place] [address] | [phone] | + + + + + Comprehensive [...] | >60Comment: GFR <60: | >60 | [facility] | [...] | | | | | performed at [facility] [place] [place];[address] | | | | | | [address];[place], [place] | | | | | | [address] | | | | + + + + + + + + | Specimen | + + | Blood | + + + + + + + | Performing | Address | City/State/Zipcode | Phone Number | | Organization | | | | + + + + + | [facility] | [address] [facility] | [place] [address] | [phone] | + + + + + LABS [...] Testing | 65 - 99 mg/dL | [facility] | | | POC | performed at [facility] [place] [place];[address] | | LABORATORY | | | | [address];[place] | | | | | | [address] | | | | + + + + + + + + | Specimen | + + | | + + + + + + + | Performing | Address | City/State/Zipcode | Phone Number | | Organization | | | | + + + + + | [facility] | [address] | [place] [address] | [phone] | + + + + + Potassium (11/01/2019 7:59 PM PST) + + + + + + | Component | Value | Ref Range | Performed | Pathologist | | | | | At | Signature | + + + + + + | K | 3.5Comment: Testing | 3.5 - 4.9 | [facility] | | | | performed at [facility] [place] [place];[address] | mmol/L | LABORATORY | | | | [address];[place], [place] | | | | | | [address] | | | | + + + + + + + + | Specimen | + + | Blood | + + + + + + + | Performing | Address | City/State/Zipcode | Phone Number | | Organization | | | | + + + + + | [facility] | [address] | [place] [address] | [phone] | + + + + + POC [...] | | | POC | performed at [facility] [place] [place];[address] | | LABORATORY | | | | [address];[place] | | | | | | [address] | | | | + + + + + + + + | Specimen | + + | | + + + + + + + | Performing | Address | City/State/Zipcode | Phone Number | | Organization | | | | + + + + + | [facility] | [address] | [place] [address] | [phone] | + + + + + POC Glucose (11/01/2019 11:54 AM PST) + + + + + + | Component | Value | Ref Range | Performed | Pathologist | | | | | At | Signature | + + + + + + | Glucose, | 147 (H)Comment: Testing | 65 - 99 mg/dL | [facility] | | | POC | performed at [facility] [place] [place];[address] | | LABORATORY | | | | [address];[place], [place] | | | | | | [address] | | | | + + + + + + + + | Specimen | + + | | + + + + + + + | Performing | Address | City/State/Zipcode | Phone Number | | Organization | | | | + + + + + | [facility] | [address] | [place] [address] | [phone] | + + + + + POC [...] | | | POC | performed at [facility] [place] [place];[address] | | LABORATORY | | | | [address];[place], [place] | | | | | | [address] | | | | + + + + + + + + | Specimen | + + | | + + + + + + + | Performing | Address | City/State/Zipcode | Phone Number | | Organization | | | | + + + + + | [facility] | [address] | [place] [address] | [phone] | + + + + + CK Total (11/01/2019 4:05 AM PST) + + + + + + | Component | Value | Ref Range | Performed | Pathologist | | | | | At | Signature | + + + + + + | CK TOTAL | 188Comment: Testing | 55 - 400 U/L | [facility] | | | | performed at [facility] [place] [place];[address] | | LABORATORY | | | | [address];[place] | | | | | | [address] | | | | + + + + + + + + | Specimen | + + | Blood | + + + + + + + | Performing | Address | City/State/Zipcode | Phone Number | | Organization | | | | + + + + + | [facility] | [address] | [place] [address] | [phone] | + + + + + Magnesium (11/01/2019 4:05 AM PST) + + + + + + | Component | Value | Ref Range | Performed | Pathologist | | | | | At | Signature | + + + + + + | Magnesium | 1.3 (L)Comment: Testing | 1.7 - 2.4 mg/dL | [facility] | | | | performed at [facility] [place] [place];[address] | | LABORATORY | | | | [address];[place], [place] | | | | | | [address] | | | | + + + + + + + + | Specimen | + + | Blood | + + + + + + + | Performing | Address | City/State/Zipcode | Phone Number | | Organization | | | | + + + + + | [facility] | [address] | [place] [address] | [phone] | + + + + + CBC [...] + + + | Red Blood | 3.07 (L) | 4.20 - 5.70 | [facility] | | | Cells | | M/uL | LABORATORY | | [...] at | | | | | | [facility] [place] [place];[address] [place] [address] | | | | | | Blvd;[place] [address] | | | | + + + + + + + + | Specimen | + + | Blood | + + + + + + + | Performing | Address | City/State/Zipcode | Phone Number | | Organization | | | | + + + + + | [facility] | [address] | [place] [address] | [phone] | + + + + + Comprehensive [...] 16 | 10 - 65 U/L | [facility] | | | | | | LABORATORY | | + + + + + + | Estimated | 57 (L)Comment: GFR <60: | >60 | [facility] | | | GFR | CHRONIC KIDNEY [...] | | | | | | [facility] traceable | | | | | | equation.Testing | | | | | | performed at [facility] [place] [place];[facility] | | | | | | [facility];[place], [place] | | | | | | [address] | | | | + + + + + + + + | Specimen | + + | Blood | + + + + + + + | Performing | Address | City/State/Zipcode | Phone Number | | Organization | | | | + + + + + | [facility] | [address] | [place] [address] | [phone] | + + + + + POC Glucose (11/01/2019 4:01 AM PST) + + + + + + | Component | Value | Ref Range | Performed | Pathologist | | | | | At | Signature | + + + + + + | Glucose, | 118 (H)Comment: Testing | 65 - 99 mg/dL | [facility] | | | POC | performed at [facility] [place] [place];[address] | | LABORATORY | | | | [address];[place] | | | | | | [address] | | | | + + + + + + + + | Specimen | + + | | + + + + + + + | Performing | Address | City/State/Zipcode | Phone Number | | Organization | | | | + + + + + | [facility] | [address] | [place] [address] | [phone] | + + + + + MRI [...] + + | Leonard, Rad Results In 10/31/2019 11:05 PM PST | | MRI [...] + + | Performing | Address | City/State/[facility] | Phone Number | | Organization | [...] | | | POC | performed at [facility] [place] [place];[address] | | LABORATORY | | | | [address];[place] | | | | | | [address] | | | | + + + + + + + + | Specimen | + + | | + + + + + + + | Performing | Address | City/State/Zipcode | Phone Number | | Organization | | | | + + + + + | [facility] | [address] | [place] [address] | [phone] | + + + + + Drugs Of Abuse Screen, Urine (H) (10/31/2019 5:46 PM PST) + + + + + + | Component | Value | Ref Range | Performed | Pathologist | | | | | At | Signature | + + + + + + | Amp/Methamp | POSITIVE (A)Comment: | NEG | [facility] | | | hetamine, | Positive cutoff [...] | | | | | performed at [facility] [place] [place];[facility] | | | | | | [facility];[place], [place] | | | | | | [address] | | | | + + + + + + + + | Specimen | + + | | + + + + + + + | Performing | Address | City/State/Zipcode | Phone Number | | Organization | | | | + + + + + | [facility] | [address] | [place] [address] | [phone] | + + + + + Sodium, Urine, Random (10/31/2019 5:46 PM PST) + + + + + + | Component | Value | Ref Range | Performed | Pathologist | | | | | At | Signature | + + + + + + | Sodium, | 24Comment: NO NORMAL | mmol/L | [facility] | | | Random | RANGE ESTABLISHEDTesting | | LABORATORY | | | urine | performed at [facility], [address] | | | [address] | [address], | | | | | | [place] [address] | | | | + + + [...] | + + + + + | [facility] | [address] | [place] [address] | [phone] | + + + + + MRSA NAAT (10/31/2019 5:46 PM PST) + + + + + + | Component | Value | Ref Range | Performed | Pathologist | | | | | At | Signature | + + + + + + | SOURCE: | NARES(NOSE) | | [facility] | | | | | | LABORATORY | | + + + + + + | Result | POSITIVE for MRSA by PCR | M[facility]NEG | [facility] | | | | (A)Comment: Testing | | LABORATORY | | | | performed at [facility] [place] [place];[address] | | | | | | [address];[place] | | | | | | [address] | | | | + + + + + + + + | Specimen | + + | Tissue - Both | | anterior nares (body | | structure) | + + + + + + + | Performing | Address | City/State/Zipcode | Phone Number | | Organization | | | | + + + + + | [facility] | [address] | [place] [address] | [phone] | + + + + + Respiratory [...] | | | | performed at [facility], [address] | | | | | | [facility], | | | | | | [place] [address] | | | | + + + + + + + + | Specimen | + + | Tissue - Entire | | nasopharynx (body | | structure) | + + + + + + + | Performing | Address | City/State/Zipcode | Phone Number | | Organization | | | | + + + + + | [facility] | [address] | [place] [address] | [phone] | + + + + + Culture, [...] Special | Testing performed at | | [facility] | | | Requests | [facility] | | LABORATORY | | | | [place] [address] | | | | + + + + + + | RESULT | NO GROWTH 6 DAYS | | [facility] | | | | | | [facility] | | + + + + + + | RESULT | Testing performed at | | [facility] | | | | [facility], [address] [facility] | | LABORATORY | | | | [place], [place] | | | | | | [address]Gncpjfw: Testing | | | | | | performed at [facility], [address] | | | | | | [address] [place], [place] | | | | | | [address] | | | | + + + + + + + + | Specimen | + + | Blood - Peripheral | | blood specimen | | (specimen) | + + + + + + + | Performing | Address | City/State/Zipcode | Phone Number | | Organization | | | | + + + + + | [facility] | [address] | [place] [address] | [phone] | + + + + + Culture, Blood (10/31/2019 5:36 PM PST) + + + + + + | Component | Value | Ref Range | Performed | Pathologist | | | | | At | Signature | + + + + + + | Special | LT AC | | [facility] | | | Requests | | | LABORATORY | | + + + + + + | Special | Testing performed at | | [facility] | | | Requests | [facility] | | LABORATORY | | | | [place] [address] | | | | + + + + + + | RESULT | NO GROWTH 6 DAYS | | [facility] | | | | | | [facility] | | + + + + + + | RESULT | Testing performed at | | [facility] | | | | [facility], [address] | | LABORATORY | | | | [place] | | | | | | [address]Vyareke: Testing | | | | | | performed at [facility], [address] | | | | | | [address], [place] | | | | | | [address] | | | | + + + + + + + + | Specimen | + + | Blood - Peripheral | | blood specimen | | (specimen) | + + + + + + + | Performing | Address | City/State/Zipcode | Phone Number | | Organization | | | | + + + + + | [facility] | [address] | [place] [address] | [phone] | + + + + + Lactic Acid (10/31/2019 5:36 PM PST) + + + + + + | Component | Value | Ref Range | Performed | Pathologist | | | | | At | Signature | + + + + + + | Lactate, | 1.5Comment: Testing | 0.4 - 2.0 | [facility] | | | Serum | performed at [facility] [place] [place];[address] | mmol/L | LABORATORY | | | | [address];[place], [place] | | | | | | [address] | | | | + + + + + + + + | Specimen | + + | Blood | + + + + + + + | Performing | Address | City/State/Zipcode | Phone Number | | Organization | | | | + + + + + | [facility] | [address] | [place] [address] | [phone] | + + + + + Vitamin [...] [facility] | | | | performed at [facility], [address] | | LABORATORY | | | | [address], | | | | | | [place] [address] | | | | + + + + + + + + | Specimen | + + | Blood | + + + + + + + | Performing | Address | City/State/Zipcode | Phone Number | | Organization | | | | + + + + + | [facility] | [address] | [place] [address] | [phone] | + + + + + Ferritin (10/31/2019 5:09 PM PST) + + + + + + | Component | Value | Ref Range | Performed | Pathologist | | | | | At | Signature | + + + + + + | Ferritin | 76Comment: Testing | 11 - 450 ng/mL | [facility] | | | | performed at [facility], [address] | | LABORATORY | | | | [address] [place], | | | | | | [place] [address] | | | | + + + + + + + + | Specimen | + + | Blood | + + + + + + + | Performing | Address | City/State/Zipcode | Phone Number | | Organization | | | | + + + + + | [facility] | [address] | [place] [address] | [phone] | + + + + + Iron, Total (10/31/2019 5:09 PM PST) + + + + + + | Component | Value | Ref Range | Performed | Pathologist | | | | | At | Signature | + + + + + + | Iron | 10 (L)Comment: Testing | 45 - 190 ug/dL | [facility] | | | | performed at [facility], [address] | | LABORATORY | | | | [address] [place], | | | | | | [place] [address] | | | | + + + + + + + + | Specimen | + + | Blood | + + + + + + + | Performing | Address | City/State/Zipcode | Phone Number | | Organization | | | | + + + + + | [facility] | [address] | [place] [address] | [phone] | + + + + + Vancomycin Level (10/31/2019 5:09 PM PST) + + + + + + | Component | Value | Ref Range | Performed | Pathologist | | | | | At | Signature | + + + + + + | Vancomycin | 12.2Comment: Testing | ug/mL | [facility] | | | Random, | performed at [facility] [place] [place];[address] | | LABORATORY | | | Serum | [address];[place], [place] | | | | | | [address] | | | | + + + + + + + + | Specimen | + + | | + + + + + + + | Performing | Address | City/State/Zipcode | Phone Number | | Organization | | | | + + + + + | [facility] | [address] | [place] [address] | [phone] | + + + + + Magnesium (10/31/2019 5:09 PM PST) + + + + + + | Component | Value | Ref Range | Performed | Pathologist | | | | | At | Signature | + + + + + + | Magnesium | 1.1 (L)Comment: Testing | 1.7 - 2.4 mg/dL | [facility] | | | | performed at [facility] [place] [place];[address] | | LABORATORY | | | | [address];[place], [place] | | | | | | [address] | | | | + + + + + + + + | Specimen | + + | | + + + + + + + | Performing | Address | City/State/Zipcode | Phone Number | | Organization | | | | + + + + + | [facility] | [address] | [place] [address] | [phone] | + + + + + Sedimentation Rate (10/31/2019 5:09 PM PST) + + + + + + | Component | Value | Ref Range | Performed | Pathologist | | | | | At | Signature | + + + + + + | ESR | 58 (H)Comment: Testing | 0 - 20 mm/Hr | [facility] | | | | performed at [facility] [place] [place];[address] | | LABORATORY | | | | [address] [facility];[place], [place] | | | | | | [address] | | | | + + + + + + + + | Specimen | + + | | + + + + + + + | Performing | Address | City/State/Zipcode | Phone Number | | Organization | | | | + + + + + | [facility] | [address] | [place] [address] | [phone] | + + + + + CBC [...] + + + | Red Blood | 3.24 (L) | 4.20 - 5.70 | [facility] | | | Cells | | M/uL | LABORATORY | | [...] [facility] | | | | performed at [facility] [place] [place];[address] | | LABORATORY | | | | [address];[place], [place] | | | | | | [address] | | | | + + + + + + + + | Specimen | + + | Blood | + + + + + + + | Performing | Address | City/State/Zipcode | Phone Number | | Organization | | | | + + + + + | [facility] | [address] [facility] [facility] [address] | [place] [address] | [phone] | + + + + + C-Reactive Protein (10/31/2019 5:09 PM PST) + + + + + + | Component | Value | Ref Range | Performed | Pathologist | | | | | At | Signature | + + + + + + | CRP | 21.4 (H)Comment: Testing | <0.5 mg/dL | [facility] | | | | performed at [facility] [place] [place];[address] | | LABORATORY | | | | [address];[place], [place] | | | | | | [address] | | | | + + + + + + + + | Specimen | + + | Blood | + + + + + + + | Performing | Address | City/State/Zipcode | Phone Number | | Organization | | | | + + + + + | [facility] | [address] | [place] [address] | [phone] | + + + + + documented [...] PST | | | | | on Emmie 10/31/19 at 1715 | | | [...] CONTINUOUS PRN, hypoglycemia, | | | Starting Emmie 10/31/19 at 1721, | | | Start [...] | | | | First dose on 11/11/19 at | | | | | | [...] | | | | | | | 9495-1775 Use NIGHT DOSE for | | | | | | | doses scheduled: HS, 3AM, | | | | | | | Nighttime [id number] If the BG is | | | [...] | | | | First dose on Mon11/04/19 at 1615 | | AM PST | [...] | | | over 2 Hours, ONCE, 11/06/19 at | | | | | | [...] | | | | | modification) on Tu11/12/19 at | | | | | | [...] | | | | | modification) on [facility] 11/14/19 at | | | | | [...]
--- OUTSIDE RECORDS SUMMARY | ~2020-06-16 | XMS | Encounter Summary ---
Demographics + + + | Address | [address] | | | [place] [address] | + + + | Home Phone [...] Team Providers + +------+ + | [employer] Name | Role | Phone | + +------+ + PCP | Unavailable | + +------+ + Encounter Details +--------+ + + + + | Date | Type | Department | Care Team | Description | +--------+ + + + + | 05/21/ | Hospital | [facility] | Unknown, | | | 1992 | Encounter | [facility] [address] | MD [place] . | | | | | [place] | | | | | | [place] [address] | (Fax) | | | | | [phone] | | | +--------+ + + + [...]
--- OUTSIDE RECORDS SUMMARY | ~2020-06-16 | XMS | Clinical Summary ---
Demographics + + + | Address | [address] | | | [place] [address] | + + + | Home Phone [...] Team Providers + +------+ + | Care Supervising Chef Name | Role | Phone | + [...] | mouth Daily. | tablet | | 7/ | | e | | 10 mg tablet | | | | 20 | | | + + + +---------+------+------+-------+ | insulin lispro | Inject 1-6 Units | 15 mL | 0 | 02/2 | | Activ | | (HUMALOG KWIKPEN) | under the skin 3 | | | /20 | | e | | 100 units/mL [...] Units | 1 pen | 3 | 02/ | | Activ | | (LANTUS SOLOSTAR) | under the skin every | | | / | | e | | 100 units/mL [...] + + + | Overview: Problem list mis director utility | + + + +---+ | [...] + + + | Medication | | | | | Management | 7 | | | + + + + + | Vaccine: | | | | | Pneumococcal 19-64 | 3 | | | | (1 of - PPSV23) | | | | + [...] | [employer] | MODA | [id number] | | [phone] | | Medica | | MEDICAID HMO | HEALTH | | 019-Pr | 1 | | id | | | MDCD | | esent | | | | | | HMO [place] | | | | | | + +--------+ +--------+ +---------+--------+ | HEALTH | IHS | [id number] | | | | Indemn | | SERVICE | YELLOW | | 020-Pr | | | ity | | | HAWK | | esent | | | | + +--------+ +--------+ +---------+--------+ | [employer] | MODA | [id number] | 10/02/19 | [phone] | | Medica [...] Kuldip Andrews | Person | Self | [address] | | [address] | | | al/Fam | | 1964 | [phone] | [place], [place] | | | vikas | | | 1 (Home) | [address] | + +--------+ +--------+ + + | Kuldip Andrews | Person | Self | [address] | | [address] | | | al/Fam | | 1964 | [phone] | [place], [place] | | | vikas | | | 1 (Home) | [address] | + +--------+ +--------+ + + | Kuldip Andrews | Person | Self | [address]/ | | [address] | | | al/Fam | | 1964 | [phone] | [place], [place] | | | vikas | | | 1 (Home) | [address] | + +--------+ +--------+ + + Advance Directives + + + + + | Type | Date Recorded | Patient | Explanation | | | | Consulting Services Manager | | + + + + + | Power of | | | | | Irrigation Laborer | | | | + + + [...]
--- OUTSIDE RECORDS SUMMARY | ~2020-06-16 | XMS | Encounter Summary ---
Demographics + + + | Address | [address] | | | [place] [address] | + + + | Home Phone | | + + + | Preferred Language | Unknown | + + + | Marital Status | Single | + + + | Orthodox Affiliation | 1077 | + + [...] Team Providers + +------+ + | Care Financial Operations Clerk Name | Role | Phone | [...] | | | | Acute | [place] [address] | [place] [address] | | | | | recurrent | Phone: | Phone: | | | | | frontal | [phone] | [phone] | | | | | sinusitis | Fax: | Fax: | | | | | | [phone] | [phone] | +--------+ + + + + + [...] + + | 10/13/ | Emergency | [facility] | Ricki Souza, | Epistaxis, recurrent | | 2019 | | [facility] | [place] [address] [facility] | (Primary Dx); | | | | SHERMAN [address] | [place] | Facial pain, acute; | | | | [place] | [address] | Acute recurrent | | | | [address] | | frontal sinusitis | | | | [phone] | | | +--------+ + + + [...] be sent through Care Everywhere.Sinusitis, Acyadi e (Albanian)documented in this encounter Medications at Time of [...] + documented as of this encounter ED Ricki Pedro MD - 10/13/2019 12:24 PM PSTFormatting of [...] not drink alcohol or use drugs. 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 He arrives [...] PM Medical Decision Making EMS notes and residential records if applicable/available. Pertinent labs and imaging stud ies were reviewed (see above). Medication and allergy lists reviewed in [facility]. Nursing notes and old records were reviewed if available within [facility]. ER course: 12:24 PM - Patient care [...] Medicine Why: If symptoms worsen Contact information: [address] [facility] [place] [address] [facility] [address] Schedule an appointment as soon as possible for a visit with Viral Alvarado MD. Specialty: Otolaryngology Contact information: [address], [place] [address] [facility] [address] Patient's Medications New Prescriptions HYDROCODONE-ACETAMINOPHEN (NORCO) 5-325 [...] by mouth daily Discharge References/Attachments Sinusitis, Acute (Albanian) Administrations This Visit HYDROmorphone (DILAUDID) injection 1 mg Admin Date 10/13/2019 Action Given Dose 1 mg Route Intravenous Administered By MAXX Martinez MD 10/13/19 1358 Rochelle Mendoza RN - 10/13/2019 11:56 AM PSTPt reports nosebleed for about a week and states he has been at [facility] ER 5 times for this. He arrives [...] R?MRN: | | | | | | [id number] | | | [id number] | | | riteri | | | [...] | | | St. | | | Declo | | | y | | | [...] | | | St. | | | Declo | | | y | | | [...] | | | St. | | | Declo | | | y | | | [...] | | | St. | | | Declo | | | y H. | | | [place]endl. | | | [place] | | | Emerge | | | ncy | | | Chief | | | Compla | | | int: | | | NOSEBL | | | EED | | | Nando 9, | | | 2020 | | | [facility] | | | [facility] | | | Declo | | | y H. | | [...] | | | St. | | | Declo | | | y H. | | [...] | | | St. | | | Declo | | | y H. | | [...] | | | St. | | | Declo | | | y H. | | [...] | | | St. | | | Declo | | | y H. | | [...] | | | St. | | | Declo | | | y H. | | [...] | | | St. | | | Declo | | | y H. | | [...] | | | St. | | | Declo | | | y H. | | [...] | | | [id number] | | | [id number] | | | | | | PLEASE [...] | | | report was sent by [facility] with no significant discrepancy on | | [...] | | preliminary report was sent by [place] [facility] with no significant discrepancyon | | 10/13/2019 [...] | |A preliminary report was sent by [facility] with no significant discrepancy | |on 10/13/2019 [...] 16 | 9 - 23 mg/dL | [place] | | | | | | [facility] | | [facility] | [facility] | | | | | | CENTER - | | | | | | LABORATORY | | + + + + + + | Creatinine | 1.21 | 0.70 - 1.30 | [place] | | | | | mg/dL | [facility] | | | | | | MEDICAL | | | | | | CENTER - | | | | | | LABORATORY | | + + + + + + | eGFR, | >60Comment: GLOMERULAR | >=60 | [place] | | | non- | FILTRATION | mL/min/1.73m2 | [facility] | | | Salvadorean | RATE,ESTIMATED | | MEDICAL | | | | mL/min/1.69m1Ciqa than | | CENTER - | | [...] [facility] | | | | | | [facility] | | | | | | [facility] | | | | | | CENTER - | | | | | | LABORATORY | | + + + + + + | Albumin/Loni | 1.2 | 0.8 - 1.9 | [facility] | | | bulin Ratio | | | [facility] | | [...] + + | [facility] ST. | [address] | [place] | [phone] | | [facility] | | [address] | | | - LABORATORY | | [...] 11.0 K/uL | [facility] | | | Cells | | | [facility] | | [...] | | | Count | | | [facility] | | | | | | MEDICAL | | | | | | CENTER - | | | | | | LABORATORY | | + + + + + + | MPV | 9.0 | 6.5 - 12.4 fL | [facility] | | | | | | [facility] | | | | [...] | | nRBC | | K/uL | [facility] | | | | [...] [address] | [place] | [phone] | | [facility] | | [address] | | | - LABORATORY | | [...]
--- OUTSIDE RECORDS SUMMARY | 2020-06-16 19:08 | XMS ---
PreManage Notification: JO ANN MC Security Toy Assembler Events 4 event(s) in the past 18 months Most recent security events: Elopement at [facility] 02/29/2020 14:47 - Other Details: PATIENT LEFT AMA. Elopement at [facility] 10/30/2019 18:49 - Other Details: PATIENT LWBS Elopement at [facility] 09/25/2019 03:51 - Other Details: PATIENT LEFT AMA. IRIS CREATED. POLICE CONTACTED. CRITERIA MET - Group Notification - History of Sepsis Dx CARE PROVIDERS KIRSTEN OCONNELL Physician Grinding Wheel Facer: Surgical 06/12/2018-Current PHONE: Unknown JUDY GUTIÉRREZ 04/01/2019-Current PHONE: Unknown Name [facility]/Adrian 10/11/2019-Current PHONE: [phone] Kika has no Care Guidelines for this patient. Care History Medical/Surgical 10/07/2019 [facility] - CHW CONTACTED ROUTE MANAGER PHILIP AT [facility]- REQUESTED RECENT ED RECORDS TO REQUEST AN ENT REFERRAL FOR PATIENT. - CHW SENT OVER REQUESTED RECORDS FOR ENT REFERRAL REQUEST. - PHILIP ROUTE MANAGER WILL CONTACT PATIENT FOR FURTHER FOLLOW UP. 06/12/2018 [facility] - Patient is currently working with Charlotte LILLYrisk modeler at [facility] contact if patient is seen in the ED. - Patient has a long history of diabetes but refuses to refill insulin. - Patient refuses to follow up with podiatry which has been requested several times by the PCP and Charlotte LILLYrisk modeler at [facility]. - Patient refuses to follow up [...] judgement. [facility] (12 MO.) [facility] TOTAL 15 NOTE: Visits indicate total known visits. ED/UCC VISIT TRACKING (12 MO.) 06/16/2020 19:06 [facility] TYPE: Emergency COMPLAINT: - BLOOD SUGAR ISSUES 05/14/2020 19:50 [facility] [place] TYPE: Emergency COMPLAINT: - CHEST PAIN DIAGNOSES: - Essential (primary) hypertension - Type 2 diabetes mellitus without complications - Chest pain, unspecified - Other chest pain - Other fci (current) drug therapy - Allergy status to penicillin 03/27/2020 14:31 [facility] [place] TYPE: Emergency COMPLAINT: - BLACK STOOL DIAGNOSES: - Anemia, unspecified - Melena - Essential (primary) hypertension - Type 2 diabetes mellitus without complications - Allergy status to penicillin 02/29/2020 14:47 [facility] [place] COMPLAINT: - DEHYDRATION DIAGNOSES: - Elevated white blood cell count, unspecified - Other termite exterminator (current) drug therapy - Allergy status to [...] Other infective spondylopathies, cervical region 10/30/2019 18:[address] [facility] TYPE: Emergency COMPLAINT: - HIP AND NECK PAIN,LEFT WITHOUT BEING SEEN DIAGNOSES: - Procedure and treatment not carried out due to patient leavin 10/13/2019 11:[address] [place] [address] [facility] TYPE: Emergency DIAGNOSES: - Headache - Headache (Adult - New Onset Or New Symptoms) - nose bleed/pressure - Acute recurrent frontal sinusitis - Epistaxis 10/12/2019 03:20 [facility]ilar TYPE: Emergency COMPLAINT: - NOSEBLEED DIAGNOSES: - Allergy status to penicillin - Essential (primary) hypertension - Epistaxis - Type 2 diabetes mellitus without complications 10/10/2019 16:21 [facility] TYPE: Emergency COMPLAINT: - NOSE PACKING REMOVAL DIAGNOSES: - Encounter for change or removal of nonsurgical wound dressing - Encounter for change or removal of nonsurgical wound dressing - Type 2 diabetes mellitus without complications - Allergy status to penicillin - Epistaxis - exterminator termite (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 of aspirin - Essential (primary) hypertension 10/09/2019 17:48 [facility] [place] TYPE: Emergency COMPLAINT: - NOSE BLEED DIAGNOSES: - Type 2 diabetes mellitus without complications - Essential (primary) hypertension - detention (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 of aspirin - Allergy status to penicillin - Epistaxis 10/08/2019 17:02 [facility] [place] TYPE: Emergency COMPLAINT: - NOSE BLEED DIAGNOSES: - Type 2 diabetes mellitus without complications - detention (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 of aspirin - Epistaxis - Allergy status to penicillin - Personal history of nicotine dependence - Essential (primary) hypertension 10/05/2019 20:49 [facility] [place] TYPE: Emergency COMPLAINT: - NOSE BLEED DIAGNOSES: - Epistaxis - Personal history of nicotine dependence - exterminator termite (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 of aspirin - Essential (primary) hypertension - Allergy status to penicillin - Type 2 diabetes mellitus without complications 09/25/2019 03:51 [facility] [place] TYPE: Emergency COMPLAINT: - CHEST PAIN DIAGNOSES: - Type 2 diabetes mellitus without complications - Personal history of nicotine dependence - detention (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 of aspirin - Other chest pain - Essential (primary) hypertension - Allergy status to penicillin 08/15/2019 01:02 [facility] [place] TYPE: Emergency COMPLAINT: - MEDICAL CLEARANCE DIAGNOSES: - exterminator termite (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 - Type 2 diabetes mellitus without complications - Personal history of nicotine dependence - Encounter for observation for other suspected diseases and co - Allergy status to penicillin - Encounter for general adult medical examination without abnor - Essential (primary) hypertension - Other fci (current) drug therapy 08/11/2019 16:16 [facility] [place] TYPE: Emergency COMPLAINT: - URINE PROBLEM DIAGNOSES: - Type 2 diabetes mellitus without complications - Hematuria, unspecified - Personal history of nicotine dependence - Other fci (current) drug therapy - Allergy status to penicillin - Essential (primary) hypertension - exterminator termite (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 INPATIENT VISIT TRACKING (12 MO.) 10/31/2019 16:33 [facility] TYPE: Internal Medicine DIAGNOSES: - Non-pressure chronic ulcer of unspecified part of left lower - Encephalopathy, unspecified - Allergy status to penicillin - Acquired absence of left leg below knee - Cervicalgia - Bacteremia - 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
[2020-06-16] MEDS ORDERED: NOVOLOG100 UNIT/2 SUB-Q (19:30)
== END 2020-06-16 20:33 | disposition home or self-care (01) ==
LOC: ED 19:05
DX: R53.81 Other malaise (principal); E87.6 Hypokalemia; Z91.19 Patient's noncompliance with other medical treatment and regimen; E11.9 Type 2 diabetes mellitus without complications; I10 Essential (primary) hypertension; Z88.0 Allergy status to penicillin; Z79.4 Long term (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
CPT/HCPCS: 80053; 85025; 99284

== ENCOUNTER 2020-08-08 13:25 | Emergency (ER) | payer OTHER ==
[~2020-08-08] VITALS: Ht 177.8 cm; Wt 59.0 kg
[~2020-08-08 13:25] MED LIST changes: +NOVOLOG100 UNIT/2 SUB-Q
--- OUTSIDE RECORDS SUMMARY | 2020-08-08 13:30 | XMS ---
PreManage Notification: JO ANN MC Security Fish Roe Technician Events 4 event(s) in the past 18 months Most recent security events: Elopement at [facility] 02/29/2020 14:47 - Other Details: PATIENT LEFT AMA. Elopement at [facility] 10/30/2019 18:49 - Other Details: PATIENT LWBS Elopement at [facility] 09/25/2019 03:51 - Other Details: PATIENT LEFT AMA. IRIS CREATED. POLICE CONTACTED. CRITERIA MET - Group Notification - 6 ED Visits in 6 Months - History of Sepsis Dx [facility] - 2 Visits in 30 Days CARE PROVIDERS KIRSTEN OCONNELL Physician Language Path: Surgical 06/12/2018-Current PHONE: Unknown JUDY GUTIÉRREZ Physician 04/01/2019-Current PHONE: Unknown Name [facility] 10/11/2019-Current PHONE: [phone] Kika has no Care Guidelines for this patient. Care History Medical/Surgical 06/17/2020 [facility] - PATIENT HAS NO SHOWED TO APTS AT [facility]-LAST APT WITH PCP WAS ON 10/10/2019. - SERVICES AT [facility] HAVE MADE ATTEMPTS TO CONTACT PATIENT BUT NUMBER PROVIDED IS NO LONGER IN SERVICE. - PHILIP CRIMINOLOGY TEACHER AT [facility] WILL CONTACT PCP AND SEE IF FURTHER FOLLOW UP CAN BE DONE WITH PATIENT. 10/07/2019 [facility] - CHW CONTACTED CRIMINOLOGY TEACHER PHILIP AT [facility]- REQUESTED RECENT ED RECORDS TO REQUEST AN ENT REFERRAL FOR PATIENT. - CHW SENT OVER REQUESTED RECORDS FOR ENT REFERRAL REQUEST. - PHILIP CRIMINOLOGY TEACHER WILL CONTACT PATIENT FOR FURTHER FOLLOW UP. 06/12/2018 [facility] - Patient is currently working with Charlotte LILLYpotash flaker at [facility] contact if patient is seen in the ED. - Patient has a long history of diabetes but refuses to refill insulin. - Patient refuses to follow up with podiatry which has been requested several times by the PCP and Charlotte LILLYpotash flaker at [facility]. - Patient refuses to follow [...] judgement. E.D. VISIT COUNT (12 MO.) 1 [facility] [address] [place] H. TOTAL 17 NOTE: Visits indicate total known visits. ED/UCC VISIT TRACKING (12 MO.) 08/08/2020 13:27 SHANTI Aguilar TYPE: Emergency COMPLAINT: - LEG ISSUE [facility]2020 [facility] COMPLAINT: - fall 06/16/2020 19:06 [facility] TYPE: Emergency COMPLAINT: - BLOOD SUGAR ISSUES DIAGNOSES: - Allergy status to penicillin - Weakness - Type 2 diabetes mellitus without complications - Hypokalemia - Essential (primary) hypertension - penitentiary (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 - Patient's noncompliance with other medical treatment and regimen - Other malaise 05/14/2020 19:50 [facility] TYPE: Emergency COMPLAINT: - CHEST PAIN DIAGNOSES: - Essential (primary) hypertension - Type 2 diabetes mellitus without complications - Chest pain, unspecified - Other chest pain - 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 - [...] white blood cell count, unspecified - Other chcf (current) drug therapy - Allergy status to [...] to being seen by health care provider 10/13/2019 11:55 [facility] Sindy BERNARD TYPE: Emergency DIAGNOSES: - Headache - Headache (Adult - New Onset Or New Symptoms) - nose bleed/pressure - Acute recurrent frontal sinusitis - Epistaxis 10/12/2019 03:20 SHANTI Dun[facility]ony Avni Alonso [place] TYPE: Emergency COMPLAINT: - NOSEBLEED DIAGNOSES: [...] Allergy status to penicillin - Epistaxis - penitentiary (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 of aspirin - Essential (primary) hypertension 10/09/2019 17:48 [facility] TYPE: Emergency COMPLAINT: - NOSE BLEED DIAGNOSES: - Type 2 diabetes mellitus without complications - Essential (primary) hypertension - penitentiary (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 of aspirin - Allergy status to penicillin - Epistaxis 10/08/2019 17:02 [facility] TYPE: Emergency COMPLAINT: - NOSE BLEED DIAGNOSES: - Type 2 diabetes mellitus without complications - penitentiary (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 of aspirin - Epistaxis - Allergy status to penicillin - Personal history of nicotine dependence - Essential (primary) hypertension 10/05/2019 20:49 [facility] TYPE: Emergency COMPLAINT: - NOSE BLEED DIAGNOSES: - Epistaxis - Personal history of nicotine dependence - penitentiary (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 of aspirin - Essential (primary) hypertension - Allergy status to penicillin - Type 2 diabetes mellitus without complications 09/25/2019 03:51 [facility] [place] TYPE: Emergency COMPLAINT: - CHEST PAIN DIAGNOSES: - Type 2 diabetes mellitus without complications - Personal history of nicotine dependence - penitentiary (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 of aspirin - Other chest pain - Essential (primary) hypertension - Allergy status to penicillin 08/15/2019 01:02 [facility] [place] TYPE: Emergency COMPLAINT: - MEDICAL CLEARANCE DIAGNOSES: - penitentiary (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 - Type 2 diabetes mellitus without complications - Personal history of nicotine dependence - Encounter for observation for other suspected diseases and conditions ruled out - Allergy status to penicillin - Encounter for general adult medical examination without abnormal findings - Essential (primary) hypertension - Other chcf (current) drug therapy 08/11/2019 16:16 [facility] [place] TYPE: Emergency COMPLAINT: - URINE PROBLEM DIAGNOSES: - Type 2 diabetes mellitus without complications - Hematuria, unspecified - Personal history of nicotine dependence - 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 - Allergy status to penicillin - Essential (primary) hypertension - penitentiary (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 INPATIENT VISIT TRACKING (12 MO.) [facility]31/2019 [facility] DIAGNOSES: - Non-pressure chronic ulcer of unspecified part of left lower leg with unspecified severity - Encephalopathy, unspecified - Allergy status to penicillin - Acquired absence of left leg below knee - Cervicalgia - Bacteremia - Carrier or suspected carrier of Methicillin resistant Staphylococcus aureus - Myositis, unspecified - Septic Arthritis - Sepsis, unspecified organism [email or web address]
[2020-08-08] MEDS ORDERED: KEFLEX500 MG PO (17:44)
== END 2020-08-08 18:10 | disposition home or self-care (01) ==
LOC: ED 13:25
DX: L03.116 Cellulitis of left lower limb (principal); L02.416 Cutaneous abscess of left lower limb; I10 Essential (primary) hypertension; E11.9 Type 2 diabetes mellitus without complications; Z88.0 Allergy status to penicillin; Z79.4 Long term (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
CPT/HCPCS: 73590; 80053; 80074; 83605; 83690; 85025; 96374; 99283-25; J0696

== ENCOUNTER 2020-09-17 11:59 | Emergency (ER) | payer OTHER ==
[~2020-09-17] VITALS: Ht 177.8 cm; Wt 59.0 kg
[~2020-09-17 11:59] MED LIST changes: +KEFLEX500 MG PO
--- OUTSIDE RECORDS SUMMARY | 2020-09-17 12:02 | XMS ---
PreManage Notification: JO ANN MC Security Field Sales Representative Events 4 event(s) in the past 18 months Most recent security events: Elopement at [facility] 02/29/2020 14:47 - Other Details: PATIENT LEFT AMA. Elopement at [facility] 10/30/2019 18:49 - Other Details: PATIENT LWBS Elopement at [facility] 09/25/2019 03:51 - Other Details: PATIENT LEFT AMA. IRIS CREATED. POLICE CONTACTED. CRITERIA MET - Group Notification - 6 ED Visits in 6 Months - History of Sepsis Dx CARE PROVIDERS KIRSTEN OCONNELL Physician Nurse Clinical: Surgical 06/12/2018-Current PHONE: Unknown JUDY GUTIÉRREZ Physician 04/01/2019-Current PHONE: Unknown Name [facility] 10/11/2019-Current PHONE: [phone] Kika has no Care Guidelines for this patient. Care History Medical/Surgical 06/17/2020 [facility] - PATIENT HAS NO SHOWED TO APTS AT [facility]-LAST APT WITH PCP WAS ON 10/10/2019. - SERVICES AT [facility] HAVE MADE ATTEMPTS TO CONTACT PATIENT BUT NUMBER PROVIDED IS NO LONGER IN SERVICE. - PHILIP GRAVITY FLOW IRRIGATOR AT [facility] WILL CONTACT PCP AND SEE IF FURTHER FOLLOW UP CAN BE DONE WITH PATIENT. 10/07/2019 [facility] - W CONTACTED GRAVITY FLOW IRRIGATOR PHILIP AT [facility]- REQUESTED RECENT ED RECORDS TO REQUEST AN ENT REFERRAL FOR PATIENT. - CHW SENT OVER REQUESTED RECORDS FOR ENT REFERRAL REQUEST. - PHILIP GRAVITY FLOW IRRIGATOR WILL CONTACT PATIENT FOR FURTHER FOLLOW UP. 06/12/2018 [facility] - Patient is currently working with Charlotte LILLYsupervisor border department at [facility] contact if patient is seen in the ED. - Patient has a long history of diabetes but refuses to refill insulin. - Patient refuses to follow up with podiatry which has been requested several times by the PCP and Charlotte LILLYsupervisor border department at [facility]. - Patient refuses to follow up [...] judgement. E.D. VISIT COUNT (12 MO.) 1 [facility] 1 [facility] 14 [facility] TOTAL 16 NOTE: Visits indicate total known visits. ED/UCC VISIT TRACKING (12 MO.) 09/17/2020 12:00 [facility] TYPE: Emergency COMPLAINT: - HEADACHE 08/08/2020 13:27 [facility] TYPE: Emergency COMPLAINT: - LEG ISSUE DIAGNOSES: - Type 2 diabetes mellitus without complications - Cutaneous abscess of left lower limb - Allergy status to penicillin - intermediate manager (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 - Essential (primary) hypertension - Cellulitis of left lower limb 08/06/2020 18:12 [facility] TYPE: Emergency COMPLAINT: - fall 06/16/2020 19:06 SHANTI Aguilar TYPE: Emergency COMPLAINT: - BLOOD SUGAR ISSUES DIAGNOSES: - Allergy status to penicillin - Weakness - Type 2 diabetes mellitus without complications - Hypokalemia - Essential (primary) hypertension - skilled nursing (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 - Patient's noncompliance with other medical treatment and regimen - Other malaise 05/14/2020 19:50 SHANTI Aguilar TYPE: Emergency COMPLAINT: - CHEST PAIN DIAGNOSES: - Essential (primary) hypertension - Type 2 diabetes mellitus without complications - Chest pain, unspecified - Other chest pain - Other correction (current) drug therapy - [...] white blood cell count, unspecified - Other correction (current) drug therapy - [...] seen by health care provider 10/13/2019 11:55 [facility]ERN[facility] TYPE: Emergency DIAGNOSES: - Headache - [...] Allergy status to penicillin - Epistaxis - intermediate manager (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 of aspirin - Essential (primary) hypertension 10/09/2019 17:48 [facility] [place] TYPE: Emergency COMPLAINT: - NOSE BLEED DIAGNOSES: - Type 2 diabetes mellitus without complications - Essential (primary) hypertension - intermediate manager (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 of aspirin - Allergy status to penicillin - Epistaxis 10/08/2019 17:02 [facility] [place] TYPE: Emergency COMPLAINT: - NOSE BLEED DIAGNOSES: - Type 2 diabetes mellitus without complications - intermediate manager (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 of aspirin - Epistaxis - Allergy status to penicillin - Personal history of nicotine dependence - Essential (primary) hypertension 10/05/2019 20:49 [facility] [place] TYPE: Emergency COMPLAINT: - NOSE BLEED DIAGNOSES: - Epistaxis - Personal history of nicotine dependence - skilled nursing (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 of aspirin - Essential (primary) hypertension - Allergy status to penicillin - Type 2 diabetes mellitus without complications 09/25/2019 03:51 [facility] [place] [facility] [place] TYPE: Emergency COMPLAINT: - CHEST PAIN DIAGNOSES: - Type 2 diabetes mellitus without complications - Personal history of nicotine dependence - intermediate manager (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 of aspirin - Other chest pain - Essential (primary) hypertension - Allergy status to penicillin INPATIENT VISIT TRACKING (12 MO.) 10/31/2019 16:33 [facility] DIAGNOSES: - Non-pressure chronic ulcer of unspecified part of left lower leg with unspecified severity - Encephalopathy, unspecified - Allergy status to penicillin - Acquired absence of left leg below knee - Cervicalgia - Bacteremia - Carrier or suspected carrier of Methicillin resistant Staphylococcus aureus - Myositis, unspecified - Septic Arthritis - Sepsis, unspecified organism [email or web address]
[2020-09-17] MEDS ORDERED: NEURONTIN300 MG PO (14:10)
[2020-09-17] MEDS ORDERED: LISINOPRIL10 MG PO (14:10)
== END 2020-09-17 14:41 | disposition home or self-care (01) ==
LOC: ED 11:59
DX: G44.89 Other headache syndrome (principal); I10 Essential (primary) hypertension; D64.9 Anemia, unspecified; E11.9 Type 2 diabetes mellitus without complications; Z88.0 Allergy status to penicillin
CPT/HCPCS: 70450; 80053; 85025; 85651; 99284-25

== ENCOUNTER 2020-11-16 14:00 | Emergency (ER) | payer OTHER ==
[~2020-11-16] VITALS: Ht 177.8 cm; Wt 59.0 kg
[~2020-11-16 14:00] MED LIST changes: +NEURONTIN300 MG PO
--- OUTSIDE RECORDS SUMMARY | 2020-11-16 14:04 | XMS ---
PreManage Notification: JO ANN MC Security Supervisor Solder Making Events 4 event(s) in the past 18 months Most recent security events: Elopement at [facility] 02/29/2020 14:47 - Other Details: PATIENT LEFT AMA. Elopement at [facility] 10/30/2019 18:49 - Other Details: PATIENT LWBS Elopement at [facility] 09/25/2019 03:51 - Other Details: PATIENT LEFT AMA. IRIS CREATED. POLICE CONTACTED. CRITERIA MET - Group Notification - History of Sepsis Dx CARE PROVIDERS KIRSTEN OCONNELL Physician Commercial Loan Closer: Surgical 06/12/2018-Current PHONE: Unknown JUDY GUTIÉRREZ 04/01/2019-[facility] PHONE: [phone] Kika has no Care Guidelines for this patient. Care History Medical/Surgical 06/17/2020 [facility] - PATIENT HAS NO SHOWED TO APTS AT [facility]-LAST APT WITH PCP WAS ON 10/10/2019. - SERVICES AT [facility] HAVE MADE ATTEMPTS TO CONTACT PATIENT BUT NUMBER PROVIDED IS NO LONGER IN SERVICE. - PHILIP UNDER TRIMMER AT [facility] WILL CONTACT PCP AND SEE IF FURTHER FOLLOW UP CAN BE DONE WITH PATIENT. 10/07/2019 [facility] - W CONTACTED UNDER TRIMMER PHILIP AT [facility]- REQUESTED RECENT ED RECORDS TO REQUEST AN ENT REFERRAL FOR PATIENT. - CHW SENT OVER REQUESTED RECORDS FOR ENT REFERRAL REQUEST. - PHILIP UNDER TRIMMER WILL CONTACT PATIENT FOR FURTHER FOLLOW UP. 06/12/2018 [facility] - Patient is currently working with Charlotte LILLYfront facer at [facility] contact if patient is seen in the ED. - Patient has a long history of diabetes but refuses to refill insulin. - Patient refuses to follow up with podiatry which has been requested several times by the PCP and Charlotte LILLYfront facer at [facility]. - Patient refuses to follow up [...] judgement. E.D. VISIT COUNT (12 MO.) 1 [facility]. 7 [facility] TOTAL 8 NOTE: Visits indicate total known visits. ED/UCC VISIT TRACKING (12 MO.) 11/16/2020 14:01 [facility] [place] TYPE: Emergency COMPLAINT: - LEFT SIDE PAIN 09/17/2020 12:00 [facility] TYPE: Emergency COMPLAINT: - HEADACHE DIAGNOSES: - Anemia, unspecified - Essential (primary) hypertension - Other headache syndrome - Allergy status to penicillin - Type 2 diabetes mellitus without complications - Headache, unspecified 08/08/2020 13:27 [facility] TYPE: Emergency COMPLAINT: - LEG ISSUE DIAGNOSES: - Type 2 diabetes mellitus without complications - Cutaneous abscess of left lower limb - Allergy status to penicillin - [facility] (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 - Essential (primary) hypertension - Cellulitis of left lower limb 08/06/2020 18:12 [facility] TYPE: Emergency COMPLAINT: - fall 06/16/2020 19:06 [facility]ANT[facility] [place] TYPE: Emergency COMPLAINT: - BLOOD SUGAR ISSUES DIAGNOSES: - Allergy status to penicillin - Weakness - Type 2 diabetes mellitus without complications - Hypokalemia - Essential (primary) hypertension - 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 - Patient's noncompliance with other medical treatment and regimen - Other malaise 05/14/2020 19:50 SHANTI Aguilar TYPE: Emergency COMPLAINT: - CHEST PAIN DIAGNOSES: - Essential (primary) hypertension - Type 2 diabetes mellitus without complications - Chest pain, unspecified - Other chest pain - 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 - Allergy status to penicillin 03/27/2020 14:31 [facility] TYPE: Emergency COMPLAINT: - BLACK STOOL DIAGNOSES: - Anemia, unspecified - Melena - Essential (primary) hypertension - Type 2 diabetes mellitus without complications - Allergy status to penicillin 02/29/2020 14:47 [facility] [place] TYPE: Emergency COMPLAINT: - DEHYDRATION DIAGNOSES: - Elevated white blood cell count, unspecified - Other long-term (current) drug therapy - Allergy status to penicillin - Dehydration - Type 2 diabetes mellitus without complications - Weakness - Acute kidney failure, unspecified - Essential (primary) hypertension INPATIENT VISIT TRACKING (12 MO.) No inpatient visits to display in this time frame [email or web address]
== END 2020-11-16 14:30 | disposition home or self-care (01) ==
LOC: ED 14:00
DX: S22.32XA Fracture of one rib, left side, initial encounter for closed fracture (principal); X58.XXXA Exposure to other specified factors, initial encounter; E11.9 Type 2 diabetes mellitus without complications; I10 Essential (primary) hypertension; Z88.0 Allergy status to penicillin; Z79.899 Other long term (current) drug therapy
CPT/HCPCS: 71101; 99283-25

== ENCOUNTER 2021-01-09 14:59 | Emergency (ER) | payer OTHER ==
[~2021-01-09] VITALS: Ht 177.8 cm; Wt 63.5 kg
--- OUTSIDE RECORDS SUMMARY | 2021-01-09 15:02 | XMS ---
PreManage Notification: JO ANN MC Security Osd Clerk Events 5 event(s) in the past 18 months Most recent security events: Elopement at [facility] 11/16/2020 14:01 - Other Details: PATIENT LEFT AMA. Elopement at [facility] 02/29/2020 14:47 - Other Details: PATIENT LEFT AMA. Elopement at [facility] 10/30/2019 18:49 - Other Details: PATIENT LWBS CRITERIA MET - Group Notification - History of Sepsis Dx CARE PROVIDERS KIRSTEN OCONNELL Physician Instructional Systems Specialist: Surgical 06/12/2018-Current PHONE: Unknown JUDY GUTIÉRREZ 04/01/2019-Current PHONE: Unknown [facility] 10/11/2019-[facility] PHONE: [phone] Kika has no Care Guidelines for this patient. Care History Medical/Surgical 06/17/2020 [facility] - PATIENT HAS NO SHOWED TO APTS AT [facility]-LAST APT WITH PCP WAS ON 10/10/2019. - SERVICES AT [facility] HAVE MADE ATTEMPTS TO CONTACT PATIENT BUT NUMBER PROVIDED IS NO LONGER IN SERVICE. - PHILIP EXPLOSIVE MAN AT [facility] WILL CONTACT PCP AND SEE IF FURTHER FOLLOW UP CAN BE DONE WITH PATIENT. 10/07/2019 [facility] - W CONTACTED EXPLOSIVE MAN PHILIP AT [facility]- REQUESTED RECENT ED RECORDS TO REQUEST AN ENT REFERRAL FOR PATIENT. - CHW SENT OVER REQUESTED RECORDS FOR ENT REFERRAL REQUEST. - PHILIP EXPLOSIVE MAN WILL CONTACT PATIENT FOR FURTHER FOLLOW UP. 06/12/2018 [facility] - Patient is currently working with Charlotte LILLYsenior publications specialist at [facility] contact if patient is seen in the ED. - Patient has a long history of diabetes but refuses to refill insulin. - Patient refuses to follow up with podiatry which has been requested several times by the PCP and Charlotte LILLYsenior publications specialist at [facility]. - Patient refuses to follow up with [...] judgement. E.D. VISIT COUNT (12 [address] [facility] H. 8 [facility]. TOTAL 9 NOTE: Visits indicate total known visits. ED/UCC VISIT TRACKING (12 MO.) 01/09/2021 15:00 [facility] TYPE: Emergency COMPLAINT: - LT LEG PAIN 11/16/2020 14:01 [facility] TYPE: Emergency COMPLAINT: - LEFT SIDE PAIN DIAGNOSES: - Pleurodynia - Type 2 diabetes mellitus without complications - Essential (primary) hypertension - Allergy status to penicillin - Exposure to other specified factors, initial encounter - Other replenisher (current) drug therapy - Fracture of one rib, left side, initial encounter for closed fracture 09/17/2020 12:00 [facility] TYPE: Emergency COMPLAINT: - HEADACHE DIAGNOSES: - Anemia, unspecified - Essential (primary) hypertension - Other headache syndrome - Allergy status to penicillin - Type 2 diabetes mellitus without complications - Headache, unspecified 08/08/2020 13:27 [facility] TYPE: Emergency COMPLAINT: - LEG ISSUE DIAGNOSES: - Type 2 diabetes mellitus without complications - Cutaneous abscess of left lower limb - Allergy status to penicillin - custodial (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 - Essential (primary) hypertension - Cellulitis of left lower limb 08/06/2020 18:12 [facility] TYPE: Emergency COMPLAINT: - fall 06/16/2020 19:06 [facility] TYPE: Emergency COMPLAINT: - BLOOD SUGAR ISSUES DIAGNOSES: - Allergy status to penicillin - Weakness - Type 2 diabetes mellitus without complications - Hypokalemia - Essential (primary) hypertension - custodial (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 - Patient's noncompliance with other medical treatment and regimen - Other malaise 05/14/2020 19:50 [facility] TYPE: Emergency COMPLAINT: - CHEST PAIN DIAGNOSES: - Essential (primary) hypertension - Type 2 diabetes mellitus without complications - Chest pain, unspecified - Other chest pain - Other intermediate (current) drug therapy - Allergy status to penicillin 03/27/2020 14:31 [facility] TYPE: Emergency COMPLAINT: - BLACK STOOL DIAGNOSES: - Anemia, unspecified - Melena - Essential (primary) hypertension - Type 2 diabetes mellitus without complications - Allergy status to penicillin 02/29/2020 14:47 [facility] TYPE: Emergency COMPLAINT: - DEHYDRATION DIAGNOSES: - Elevated white blood cell count, unspecified - Other replenisher (current) drug therapy - Allergy status to penicillin - Dehydration - Type 2 diabetes mellitus without complications - Weakness - Acute kidney failure, unspecified - Essential (primary) hypertension INPATIENT VISIT TRACKING (12 MO.) No inpatient visits to display in this time frame [id number]
== END 2021-01-09 16:04 | disposition home or self-care (01) ==
LOC: ED 14:59
DX: S80.11XA Contusion of right lower leg, initial encounter (principal); W01.10XA Fall on same level from slipping, tripping and stumbling with subsequent striking against unspecified object, initial encounter; E11.9 Type 2 diabetes mellitus without complications; I10 Essential (primary) hypertension; Z88.0 Allergy status to penicillin; Z79.899 Other long term (current) drug therapy
CPT/HCPCS: 73590; 99283-25

== ENCOUNTER 2021-01-11 07:43 | Emergency (ER) | payer OTHER ==
[~2021-01-11] VITALS: Ht 177.8 cm; Wt 63.5 kg
--- OUTSIDE RECORDS SUMMARY | 2021-01-11 07:48 | XMS ---
PreManage Notification: JO ANN MC Security General Farmer Events 5 event(s) in the past 18 months Most recent security events: Elopement at [facility] 11/16/2020 14:01 - Other Details: PATIENT LEFT AMA. Elopement at [facility] 02/29/2020 14:47 - Other Details: PATIENT LEFT AMA. Elopement at [facility] 10/30/2019 18:49 - Other Details: PATIENT LWBS CRITERIA MET - Group Notification - 6 ED Visits in 6 Months - History of Sepsis Dx [facility] - 2 Visits in 30 Days CARE PROVIDERS KIRSTEN OCONNELL Physician Club Room Attendant: Surgical 06/12/2018-Current PHONE: Unknown JUDY GUTIÉRREZ Physician 04/01/2019-Current PHONE: Unknown [facility] 10/11/2019-[facility] PHONE: [phone] Kika has no Care Guidelines for this patient. Care History Medical/Surgical 06/17/2020 [facility] - PATIENT HAS NO SHOWED TO APTS AT [facility]-LAST APT WITH PCP WAS ON 10/10/2019. - SERVICES AT [facility] HAVE MADE ATTEMPTS TO CONTACT PATIENT BUT NUMBER PROVIDED IS NO LONGER IN SERVICE. - PHILIP FIREFIGHTER TYPE ONE AT [facility] WILL CONTACT PCP AND SEE IF FURTHER FOLLOW UP CAN BE DONE WITH PATIENT. 10/07/2019 [facility] - W CONTACTED FIREFIGHTER TYPE ONE PHILIP AT [facility]- REQUESTED RECENT ED RECORDS TO REQUEST AN ENT REFERRAL FOR PATIENT. - CHW SENT OVER REQUESTED RECORDS FOR ENT REFERRAL REQUEST. - PHILIP FIREFIGHTER TYPE ONE WILL CONTACT PATIENT FOR FURTHER FOLLOW UP. 06/12/2018 [facility] - Patient is currently working with Charlotte LILLYnurse office at [facility] contact if patient is seen in the ED. - Patient has a long history of diabetes but refuses to refill insulin. - Patient refuses to follow up with podiatry which has been requested several times by the PCP and Charlotte LILLYnurse office at [facility]. - Patient refuses to follow up [...] judgement. E.D. VISIT COUNT (12 MO.) 1 [facility]. 9 [facility] TOTAL 10 NOTE: Visits indicate total known visits. ED/UCC VISIT TRACKING (12 MO.) 01/11/2021 07:43 [facility] TYPE: Emergency COMPLAINT: - LT LEG STUMB BLEEDING 01/09/2021 15:00 [facility] TYPE: Emergency COMPLAINT: - LT LEG PAIN 11/16/2020 14:01 [facility] TYPE: Emergency COMPLAINT: - LEFT SIDE PAIN DIAGNOSES: - Pleurodynia - Type 2 diabetes mellitus without complications - Essential (primary) hypertension - Allergy status to penicillin - Exposure to other specified factors, initial encounter - Other chcf (current) drug therapy - Fracture of one rib, left side, initial encounter for closed fracture 09/17/2020 12:00 [facility] TYPE: Emergency COMPLAINT: - HEADACHE DIAGNOSES: - Anemia, unspecified - Essential (primary) hypertension - Other headache syndrome - Allergy status to penicillin - Type 2 diabetes mellitus without complications - Headache, unspecified 08/08/2020 13:27 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 - Patient's noncompliance with other medical treatment and regimen - Other malaise 05/14/2020 19:50 [facility] TYPE: Emergency COMPLAINT: - CHEST PAIN DIAGNOSES: - Essential (primary) hypertension - Type 2 diabetes mellitus without complications - Chest pain, unspecified - Other chest pain - Other chcf (current) drug therapy - Allergy status to penicillin 03/27/2020 14:31 [facility] TYPE: Emergency COMPLAINT: - BLACK STOOL DIAGNOSES: - Anemia, unspecified - Melena - Essential (primary) hypertension - Type 2 diabetes mellitus without complications - Allergy status to penicillin 02/29/2020 14:[address] [facility] TYPE: Emergency COMPLAINT: - DEHYDRATION DIAGNOSES: - Elevated white blood cell count, unspecified - Other chcf (current) drug therapy - Allergy status to penicillin - Dehydration - Type 2 diabetes mellitus without complications - Weakness - Acute kidney failure, unspecified - Essential (primary) hypertension INPATIENT VISIT TRACKING (12 MO.) No inpatient visits to display in this time frame [id number]
[2021-01-11] MEDS ORDERED: BACTRIM DS TAB1 EACH PO (09:36)
== END 2021-01-11 12:45 | disposition home or self-care (01) ==
LOC: ED 07:43
DX: T87.43 Infection of amputation stump, right lower extremity (principal); L03.115 Cellulitis of right lower limb; L02.415 Cutaneous abscess of right lower limb; E11.9 Type 2 diabetes mellitus without complications; I10 Essential (primary) hypertension; Z88.0 Allergy status to penicillin
CPT/HCPCS: 73560; 73630; 80053; 85025; 96365; 96366; 99283-25; J3370; J7060

== ENCOUNTER 2021-01-15 19:10 | Inpatient (IN) | payer OTHER ==
[~2021-01-15] VITALS: Ht 177.8 cm; Wt 80.1 kg
--- OUTSIDE RECORDS SUMMARY | 2021-01-15 19:12 | XMS ---
PreManage Notification: JO ANN MC Security Nailhead Setter Events 5 event(s) in the past 18 [...] 6 Months - History of Sepsis Dx [facility] - 2 Visits in 30 Days CARE PROVIDERS KIRSTEN OCONNELL Physician Aviation Neuropsychologist: Surgical 06/12/2018-Current PHONE: Unknown JUDY GUTIÉRREZ Physician 04/01/2019-Current PHONE: Unknown [facility] 10/11/2019-[facility] PHONE: [phone] Kika has no Care Guidelines for this patient. Care History Medical/Surgical 01/13/2021 [facility] - W CONTACTED PHILIP LILLYSKIN DRIER AT [facility]- - PATIENT IS NOT FOLLOWING UP WITH PCP - PCP HAS REFERRED PATIENT TO DIABETIC EDUCATION AT [facility] 06/17/2020 [facility] - PATIENT HAS NO SHOWED TO APTS AT [facility]-LAST APT WITH PCP WAS ON 10/10/2019. - SERVICES AT [facility] HAVE MADE ATTEMPTS TO CONTACT PATIENT BUT NUMBER PROVIDED IS NO LONGER IN SERVICE. - PHILIP LILLYSKIN DRIER AT [facility] WILL CONTACT PCP AND SEE IF FURTHER FOLLOW UP CAN BE DONE WITH PATIENT. 10/07/2019 [facility] - CHW CONTACTED SKIN DRIER PHILIP AT [facility]- REQUESTED RECENT ED RECORDS TO REQUEST AN ENT REFERRAL FOR PATIENT. - CHW SENT OVER REQUESTED RECORDS FOR ENT REFERRAL REQUEST. - PHILIP LLILYSKIN DRIER WILL CONTACT PATIENT FOR FURTHER FOLLOW UP. E.D. VISIT COUNT (12 MO.) 1 [facility] H. 10 [facility]. TOTAL 11 NOTE: Visits indicate total known visits. ED/UCC VISIT TRACKING (12 MO.) 01/15/2021 19:11 [facility] TYPE: Emergency COMPLAINT: - R FOOT PAIN 01/11/2021 07:43 [facility] TYPE: Emergency COMPLAINT: - LT LEG STUMB BLEEDING DIAGNOSES: - Type 2 diabetes mellitus without complications - Essential (primary) hypertension - Allergy status to penicillin - Infection of amputation stump, right lower extremity - Cutaneous abscess of right lower limb - Cellulitis of right lower limb 01/09/2021 15:00 [facility] TYPE: Emergency COMPLAINT: - LT LEG PAIN DIAGNOSES: - Allergy status to penicillin - Type 2 diabetes mellitus without complications - Contusion of right lower leg, initial encounter - Other senior living (current) drug therapy - Fall on same level from slipping, tripping and stumbling with subsequent striking against unspecified object, initial encounter - Pain in left leg - Essential (primary) hypertension 11/16/2020 14:01 [facility] TYPE: Emergency COMPLAINT: - LEFT SIDE PAIN DIAGNOSES: - Pleurodynia - Type 2 diabetes mellitus without complications - Essential (primary) hypertension - Allergy status to penicillin - Exposure to other specified factors, initial encounter - Other senior living (current) drug therapy - Fracture of one [...] limb - Allergy status to penicillin - 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 - Essential (primary) hypertension - Cellulitis of left lower limb 08/06/2020 18:12 [facility] TYPE: Emergency COMPLAINT: - fall 06/16/2020 19:06 [facility] TYPE: Emergency COMPLAINT: - BLOOD SUGAR ISSUES DIAGNOSES: - Allergy status to penicillin - Weakness - Type 2 diabetes mellitus without complications - Hypokalemia - Essential (primary) hypertension - long-term (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 - Patient's noncompliance with other medical treatment and regimen - Other malaise 05/14/2020 19:50 [facility] TYPE: Emergency COMPLAINT: - CHEST PAIN DIAGNOSES: - Essential (primary) hypertension - Type 2 diabetes mellitus without complications - Chest pain, unspecified - Other chest pain - Other track leader (current) drug therapy - Allergy status to penicillin 03/27/2020 14:31 [facility] TYPE: Emergency COMPLAINT: - BLACK STOOL DIAGNOSES: - Anemia, unspecified - Melena - Essential (primary) hypertension - Type 2 diabetes mellitus without complications - Allergy status to penicillin 02/29/2020 14:47 [facility] TYPE: Emergency COMPLAINT: - DEHYDRATION DIAGNOSES: - Elevated white blood cell count, unspecified - Other senior living (current) drug therapy - Allergy status to penicillin - Dehydration - Type 2 diabetes mellitus without complications - Weakness - Acute kidney failure, unspecified - Essential (primary) hypertension INPATIENT VISIT TRACKING (12 MO.) No inpatient visits to display in this time frame [id number]
--- NOTE | 2021-01-15 23:00 | NUR ---
pt here from ER, self transfer to M/S bed, vitals done, randall provided, no further needs at this time, charge loader in to complete admission
--- NOTE | 2021-01-16 | NUR ---
ASSESSMENT COMPLETED. GCS 15, A&O X4. LUNGS CLEAR. HEART TONES REGULAR. PT DENIES PAIN. IV FLUIDS AND MEDS STARTED PER ORDER. IVs WNL, CDI, FLUSHED WELL. CMS INTACT IN UPPER EXTREMITIES. 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 RIGHT FOOT HAS NUMBNESS IN BIG TOE ONLY, LATERAL FOOT HAS ULCER WITH SMALL AMOUNTS OF PURULENT DRAINAGE. PT DENEIS PAIN. ABD SOFT, NONTENDER, BOWEL TONES ACTIVE. NO OTHER NEEDS AT THIS TIME. CALL LIGHT IN REACH.
--- NOTE | 2021-01-16 00:38 | NUR ---
pt up to the toliet, pt thought he soiled underpants, just needed to void, no further needs
--- NOTE | 2021-01-16 02:05 | NUR ---
ASSESSMENT COMPLETED. GCS 15, A&O X4. LUNGS CLEAR. HEART TONES REGULAR. PT DENIES PAIN. IVs WNL, CDI, IV FLUIDS INFUSING PER ORDER. CMS INTACT IN UPPER EXTREMITIES. 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 RIGHT FOOT HAS NUMBNESS IN BIG TOE, LATERAL FOOT HAS ULCER WITH SMALL AMOUNTS OF PURULENT DRAINAGE. PHOTOS TTAKEN AND PLACED IN FILE. ABD SOFT, NONTENDER, BOWEL TONES ACTIVE. VS AND I&O COMPLETED .NO OTHER NEEDS AT THIS TIME. CALL LIGHT IN REACH.
--- NOTE | 2021-01-16 02:06 | NUR ---
IN WIOTH RN TO GET VITALS, ASST RN WITH WOUND PICTURES, NO FURHTER NEEDS
--- NOTE | 2021-01-16 04:00 | NUR ---
PT RESTING IN BED, EYES CLOSED. RR EVEN, UNLABORED. CALL LIGHT IN REACH.
--- NOTE | 2021-01-16 06:23 | NUR ---
IN TO GET VITALS, EMPTIED URINAL, URINE SAMPLE COLLECTED AT SENT TO LAB, WARM BLANKET PROVIDED, NO FURTHER NEEDS
--- NOTE | 2021-01-16 06:25 | NUR ---
PT UP TO VOID, 500ML, ALSO HAD x1 MED BM, NO FURTHER NEEDS AT THIS TIME
--- NOTE | 2021-01-16 06:50 | EKG ---
[facility] [address] [place], [place] [address] Signed Sinus tachycardia Otherwise normal ECG When compared with ECG of 14-MAY-2020 19:56, No significant change was found Confirmed by BELA GARCIA MD ([id number]) on 01/16/2021 6:50:10 AM Electronically Signed By: BELA GARCIA MD 01/16/21 0650 PATIENT NAME: JO ANN MC NUNO Electrocardiogram DATE OF : 69 PHYSICIAN: BELA GARCIA MD REPORT #: [id number] REPORT IS CONFIDENTIAL AND NOT TO BE RELEASED WITHOUT AUTHORIZATION
--- NOTE | 2021-01-16 12:00 | NUR ---
Patient sitting up in bed eating lunch. Patient denies any needs at this time. No notable distress. Personal supplies and call light within reach.
--- NOTE | 2021-01-16 16:39 | NUR ---
Patient resting in bed, eyes closed, respirations even and non labored. Patient has no distress at this time. Personal supplies and call light within reach.
--- NOTE | 2021-01-16 18:31 | NUR ---
Patient in bed eating dinner, alert and oriented x3. Patient denies pain. Family member at bedside. Personal supplies and call light within reach.
--- NOTE | 2021-01-16 19:37 | NUR ---
SHIFT REPORT RECEIVED FROM FADUMO LILLY. PT RESTING IN BED WATCHING TV. NO NEEDS AT THIS TIME. CALL LIGHT IN REACH.
--- NOTE | 2021-01-16 21:05 | NUR ---
PT STATES THERE ARE PEOPLE AFTER HIM AND OTHER DILUSIONAL STATEMENTS. PT MOTHER CALLED. SHE CONFIRMS THIS HAS BEEN GOING ON FOR AWHILE. MD AND SECURITY NOTIFIED. ATIVAN PROVIDED. SCHEDULED MEDS PROVIDED. ASSESSMENT COMPLETED. GCS 15, A&O X4. PT MUCH MORE CALM AND STATES HE FEELS LESS ANXIOUS AFTER MED AND TALKING TO HIS MOTHER. VS AND I&O COMPLETED. LUNGS CLEAR, HEART TONES REGULAR. ABD SOFT, NONTENDER, PT STATES NORMAL, BOWEL TONES ACTIVE. CMS INTACT IN UPPER EXTREMITIES. PT DENIES PAIN. RLE HAS ALLEVYN OEVER WOUND, DRY. CMS INTACT EXCEPT BIG TO OF RIGHT FOOT HAS NUMBNESS. LBKA HAS COVERED WOUND ON DISTAL STUB, DRY. CMS INTACT ON STUB. IVsWNL, CDI, FLUSHED WELL. ICE WATER PROVIDED. NO OTHER NEEDS AT THIS TIME. CALL LIGHT IN REACH.
--- NOTE | 2021-01-16 23:18 | NUR ---
PT RESTING IN BED, EYES CLOSED. RR EVEN, UNLABORED. IV FLUIDS INFUSING PER ORDER. CALL LIGHT IN REACH.
--- NOTE | 2021-01-17 02:40 | NUR ---
ASSESSMENT AND I&O COMPLETED. NEW BAG IV FLUIDS PROVIDED. PT CALM, DROWSY. GCS 15, A&O X4. LUNGS CLEAR, HEART TONES REGULAR. ABD SOFT, NONTENDER, BOWEL TONES ACTIVE. LLE CMS INTACT AT KNEE, BANDAGING CDI. RLE CMS INTACT EXCEPT BIG TOE. ALLEVYN COVERING WOUND, PURULENT DRAINAGE. REDNESS NOTED FROM MID CALF TO TOES, UNCHANGED. NO OTHER NEEDS AT THIS TIME. CALL LIGHT IN REACH.
--- NOTE | 2021-01-17 05:00 | NUR ---
PT RESTING IN BED, EYES CLOSED. RR EVEN, UNLABORED. CALL LIGHT IN REACH.
--- NOTE | 2021-01-17 07:00 | NUR ---
VS AND I&O COMPLETED BY SYLVESTER HERNANDEZ.
--- NOTE | 2021-01-17 07:57 | NUR ---
Vancomycin trough level ordered for 01/18/21 @ 5273
--- NOTE | 2021-01-17 12:51 | NUR ---
In with Dr. Diamond for rounding. Wound dressings removed at this time. Packing to stump removed. Verbal order from Dr. Diamond to pack allow pt to shower then redress wounds. Left stump packed with iodiform then guaze and tape. Right lateral foot wound to have replaced Allevyn.
--- NOTE | 2021-01-17 15:34 | NUR ---
Allevyn placed to right lateral foot wound. Left stump packed with iodoform, guaze then tape placed. Patient tolerated well.
--- NOTE | 2021-01-17 19:10 | NUR ---
SHIFT REPORT FROM NURSE THORNE. SBA UP TO TOILET TO VOID. PT RETURNED TO BED, FRESH WATER PROVIDED. CALL LIGHT KOMAL SNYDER.
--- NOTE | 2021-01-17 21:45 | NUR ---
V/S AND I&O'S DONE. ICE WATER AND SODA (OWN) PROVIDED. PRIMARY RN WAS WITH PATIENT.
--- NOTE | 2021-01-17 21:50 | NUR ---
IN ROOM FOR ASSESSMENT, VITALS. PT IS ALERT AND AWAKE IN BED EATING SNACKS. PT REQUESTS PRN TYLENOL WHICH IS ADMINISTERED. CBG 167 REQUIRING 1UNIT SS INSULIN. DRESSING ON LT STUMP IS INTACT WITH SOME SHADOWING IN CENTER. ALLEVYN ON RT FOOT WOUND REINFORCED WITH EXTRA POROUS TAPE AT EDGES. MODERATE DRAINAGE VISABLE THROUGH ALLEVYN BUT OTHERWISE INTACT. VSS. LUNG SOUNDS CLEAR. BOWEL TONES ACTIVE. CMS INTACT. 2 URINALS PROVIDED AT BEDSIDE. BED ALARM ON FOR SAFETY, PT EDUCATED ON HOW TO USE CALL LIGHT APPROPRIATELY.
--- NOTE | 2021-01-17 22:16 | NUR ---
BED ALARM SOUNDING. pt ATTEMPTING TO GET OUT OF BED TO RESTROOM. CRUTCHES PROVIDED. IVF INFUSING WNL. pt INSTRUCTED TO USE CALL LIGHT IN RESTROOM WHEN FINISHED. VERBALIZES UNDERSTANDING. pt INITIALLY COMPLAINS OF PAIN WHEN RN ENTERS ROOM, AFTER GETTING TO RESTROOM, pt STATES "NO I DON'T HAVE ANY".
--- NOTE | 2021-01-17 22:22 | NUR ---
RN OUTSIDE OF ROOM FOR pt SAFETY, UP OFF TOILET WITHOUT PULLING CALL LIGHT CORD. pt STATES "I FORGOT". pt WITH NEAR FALL, RN HOLDING ONTO pt, pt STATES "LET GO, I'M OKAY". BACK IN BED. pt VERBALIZES UNDERSTANDING TO USE CALL LIGHT FOR SAFETY, ASSISTANCE WITH IV POLE. BED ALARM ON. NO ADDITIONAL REQUESTS.
--- NOTE | 2021-01-17 23:38 | NUR ---
BED ALARM SET OFF. PT HAD ROLLED OVER IN BED AND ALARM WAS ALARMING. NO NEEDS AT THIS TIME
--- NOTE | 2021-01-18 00:08 | NUR ---
1 PA TO THE BATHROOM. PATIENT USING CRUTCHES. PATIENT HAD EXTRA LARGE BLACK LIQUID BOWEL MOVEMENT. PATIENT IS BACK IN BED.
--- NOTE | 2021-01-18 01:45 | NUR ---
NOISE NOTED FROM PT'S ROOM. PT WAS SITTING AT BEDSIDE TRYING TO REACH CRUTCHES. SBA TO TOILET. PT HAD LIQUID DARK DIARRHEA. RETURNED TO BED, FRESH IVF HUNG. NO FURTHER NEEDS AT THIS TIME. CALL LIGHT WITHIN REACH
--- NOTE | 2021-01-18 03:59 | NUR ---
CHECKED ON PT. PT APPEARS TO BE SLEEPING; LAYING RIGHT LATERAL. NO APPARENT NEEDS AT THIS TIMEL. .
--- NOTE | 2021-01-18 05:44 | NUR ---
IN ROOM FOR MORNING ASSESSMENT AND VITALS. PT HAS PULLED IV OUT OF LEFT WRIST WHERE IV FLUIDS WERE INFUSING. THERE IS BLOOD ON PT'S WRIST AND SMALL AMOUNT ON BEDSHEET. URINE IS ALSO NOTED ON FLOOR. PT STATES THAT HE DOESN'T RECALL PULLING IV; STATES HE "WOKE UP ON THIS SIDE OF THE BED" WHICH IS THE SIDE OF BED FACING THE DOOR AND UNTIL NOW, PT HAS BEEN EXITING THE OPPOSITE SIDE OF THE BED. PT IS ORIENTED TO PERSON AND PLACE, UNSURE OF DATE. LUNGS HAVE SOME CRACKLES IN THE BASES, NOTIBLY THE LEFT BASE. VSS. BED ALARM ON FOR SAFETY. CALL LIGHT WITHIN REACH.
--- NOTE | 2021-01-18 06:28 | NUR ---
CRITICAL LAB VALUE RECVD. HCT 6.[address] GARCIA INFORMED. NO NEW ORDERS RECEIVED.
--- NOTE | 2021-01-18 07:10 | NUR ---
BEDSIDE HANDOFF REPORT RECEIVED FROM CHIEF VENDOR QUALITY RN. PT AGGITATED, WANTING TO LEAVE. IV SALINE LOCKED TO PROTECT LINE PT WAS TRYING TO GET DRESSED. ASKED PT IF HE WOULD WAIT UNTIL DR. GARCIA CAME DOWN TO DISCHARGE HIM AND HE STATED "NO, I AM OUT OF HERE." DR. GARCIA NOTIFIED, TELEPHONE ORDER TO GIVE 1MG ATIVAN IV.
--- NOTE | 2021-01-18 07:25 | NUR ---
PT DRESSED IN [place], AMBULATING WITH CRUCTES TOWARDS EXIT OF NURSING FLOOR. PT PERSISTENT ON LEAVING NOW, AMA PAPER SIGNED, IV REMOVED. PT ESCORTED TO LOBBY, STATES HE WILL GET A TAXI. SECURITY SITTING WITH PT IN LOBBY.
--- NOTE | 2021-01-18 07:30 | NUR ---
PT LEFT AMA. PT SIGNED AMA PAPERWORK AND HAD REMAINING IV REMOVED. REFUSED TO LISTEN TO ANY ADVICE. PT WAS AGITATED.
--- NOTE | 2021-01-18 07:30 | NUR ---
Pt seen walking on crutches to back door hallway. Pt unable to enter as this is a no admittance area. [place] loud conversation pt had with staff and then he returned past my office. Later I was notified, pt left AMA.
== END 2021-01-18 07:20 | disposition left against medical advice (07) | DRG 638 ==
LOC: ED 19:10 → MS 21:42
PROVIDERS: ADMIT Internal Medicine; ATTEND Internal Medicine
DX: E11.621 Type 2 diabetes mellitus with foot ulcer (principal); L03.115 Cellulitis of right lower limb; N17.9 Acute kidney failure, unspecified; Z20.822 Contact with and (suspected) exposure to COVID-19; T87.89 Other complications of amputation stump; L97.519 Non-pressure chronic ulcer of other part of right foot with unspecified severity; I10 Essential (primary) hypertension; E11.22 Type 2 diabetes mellitus with diabetic chronic kidney disease; N18.9 Chronic kidney disease, unspecified; D50.9 Iron deficiency anemia, unspecified; Z53.29 Procedure and treatment not carried out because of patient's decision for other reasons; Z91.19 Patient's noncompliance with other medical treatment and regimen; Z88.0 Allergy status to penicillin; Z88.2 Allergy status to sulfonamides; Z87.891 Personal history of nicotine dependence
CPT/HCPCS: 36415; 71045; 73630; 80048; 80053; 81001; 83036; 83540; 83605; 84466; 85025; 87088; 93005; 93010; C9803; J1815; J1956; J2060; J3370; J7030; J7060; J7121; U0003

== ENCOUNTER 2021-02-25 14:26 | Observation (INO) | payer OTHER ==
[~2021-02-25] VITALS: Ht 177.8 cm; Wt 79.9 kg
--- OUTSIDE RECORDS SUMMARY | 2021-02-25 14:28 | XMS ---
PreManage Notification: JO ANN MC Security Salon Shampoo Assistant Events 4 event(s) in the past 18 months Most recent security events: Elopement at [facility] 11/16/2020 14:01 - Other Details: PATIENT LEFT AMA. Elopement at [facility] 02/29/2020 14:47 - Other Details: PATIENT LEFT AMA. Elopement at [facility] 10/30/2019 18:49 - Other Details: PATIENT LWBS CRITERIA MET - Group Notification - 6 ED Visits in 6 Months CARE PROVIDERS KIRSTEN OCONNELL Physician Continuity Clerk: Surgical 06/12/2018-Current PHONE: Unknown JUDY GUTIÉRREZ 04/01/2019-[facility] PHONE: [phone] Kika has no Care Guidelines for this patient. Care History Medical/Surgical 01/13/2021 [facility] - CHW CONTACTED PHILIP LILLYFISHING GEAR MECHANIC AT [facility]- - PATIENT IS NOT FOLLOWING UP WITH PCP - PCP HAS REFERRED PATIENT TO DIABETIC EDUCATION AT [facility] 06/17/2020 [facility] - PATIENT HAS NO SHOWED TO APTS AT [facility]-LAST APT WITH PCP WAS ON 10/10/2019. - SERVICES AT [facility] HAVE MADE ATTEMPTS TO CONTACT PATIENT BUT NUMBER PROVIDED IS NO LONGER IN SERVICE. - PHILIP LILLYFISHING GEAR MECHANIC AT [facility] WILL CONTACT PCP AND SEE IF FURTHER FOLLOW UP CAN BE DONE WITH PATIENT. 10/07/2019 [facility] - CHW CONTACTED FISHING GEAR MECHANIC PHILIP AT [facility]- REQUESTED RECENT ED RECORDS TO REQUEST AN ENT REFERRAL FOR PATIENT. - CHW SENT OVER REQUESTED RECORDS FOR ENT REFERRAL REQUEST. - PHILIP LILLYFISHING GEAR MECHANIC WILL CONTACT PATIENT FOR FURTHER FOLLOW UP. E.D. VISIT COUNT (12 MO.) 1 [facility]. [address] [place] [address]. TOTAL 12 NOTE: Visits indicate total known visits. ED/UCC VISIT TRACKING (12 MO.) 02/25/2021 14:26 [facility] TYPE: Emergency COMPLAINT: - WOUND CARE 01/15/2021 19:11 [facility] TYPE: Emergency COMPLAINT: - R FOOT PAIN/NO INJ 01/11/2021 07:43 [facility] TYPE: Emergency [...] right lower leg, initial encounter - Other usp (current) drug therapy - Fall on same [...] other specified factors, initial encounter - Other usp (current) drug therapy - Fracture of one rib, left side, initial encounter for closed fracture 09/17/2020 12:00 [facility] TYPE: Emergency COMPLAINT: - HEADACHE DIAGNOSES: - Anemia, unspecified - Essential (primary) hypertension - Other headache syndrome - Allergy status to penicillin - Headache, unspecified - Type 2 diabetes mellitus without complications - Headache, unspecified 08/08/2020 13:27 [facility] TYPE: Emergency COMPLAINT: - LEG ISSUE DIAGNOSES: - Type 2 diabetes mellitus without complications - Cutaneous abscess of left lower limb - Allergy status to penicillin - intermission coordinator (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 - Essential (primary) hypertension - Cellulitis of left lower limb 08/06/2020 18:12 [facility] TYPE: Emergency COMPLAINT: - fall 06/16/2020 19:06 [facility] TYPE: Emergency COMPLAINT: - BLOOD SUGAR ISSUES DIAGNOSES: - Allergy status to penicillin - Weakness - Type 2 diabetes mellitus without complications - Hypokalemia - Essential (primary) hypertension - custodial (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 - Patient's noncompliance with other medical treatment and regimen - Other malaise 05/14/2020 19:50 [facility] TYPE: Emergency COMPLAINT: - CHEST PAIN DIAGNOSES: - Essential (primary) hypertension - Type 2 diabetes mellitus without complications - Chest pain, unspecified - Other chest pain - Other exterminator helper (current) drug therapy - Allergy status to penicillin 03/27/2020 14:31 [facility] TYPE: Emergency COMPLAINT: - BLACK STOOL DIAGNOSES: - Anemia, unspecified - Melena - Essential (primary) hypertension - Type 2 diabetes mellitus without complications - Allergy status to penicillin 02/29/2020 14:[address] [facility] TYPE: Emergency COMPLAINT: - DEHYDRATION DIAGNOSES: - Elevated white blood cell count, unspecified - Other exterminator helper (current) drug therapy - Allergy status to penicillin - Dehydration - Type 2 diabetes mellitus without complications - Weakness - Acute kidney failure, unspecified - Essential (primary) hypertension INPATIENT VISIT TRACKING (12 MO.) 01/15/2021 21:[address] [facility] TYPE: Medical Surgical COMPLAINT: - RT FOOT CELLULITIS DIAGNOSES: - Iron deficiency anemia, unspecified - Patient's noncompliance with other medical treatment and regimen - Patient's noncompliance with other medical treatment and regimen - Type 2 diabetes mellitus with diabetic chronic kidney disease - Cellulitis of right lower limb - Other complications of amputation stump - Essential (primary) hypertension - Type 2 diabetes mellitus with diabetic chronic kidney disease - Acute kidney failure, unspecified - Procedure and treatment not carried out because of patient's decision for other reasons - Chronic kidney disease, unspecified - Iron deficiency anemia, unspecified - Other complications of amputation stump - Allergy status to sulfonamides - Essential (primary) hypertension - Allergy status to penicillin - Allergy status to sulfonamides - Chronic kidney disease, unspecified - Non-pressure chronic ulcer of other part of right foot with unspecified severity - Personal history of nicotine dependence - Type 2 diabetes mellitus with foot ulcer - Type 2 diabetes mellitus with foot ulcer - Procedure and treatment not carried out because of patient's decision for other reasons - Non-pressure chronic ulcer of other part of right foot with unspecified severity - Allergy status to penicillin - Acute kidney failure, unspecified - Personal history of nicotine dependence [email or web address]
[2021-02-25] MEDS ORDERED: VITAMIN B-121000 MCG PO (14:52)
--- NOTE | 2021-02-25 20:55 | NUR ---
TELEPHONE REPORT RECEIVED FROM ED RN DEEPAK. QUESTIONS ANSWERED, AWAITING pt's ARRIVAL TO FLOOR.
--- NOTE | 2021-02-25 21:30 | NUR ---
PT ARRIVED TO [facility] AT 2109. HE IS ORIENTED TO ROOM AND CALL LIGHT. PT HAS CRUTCHES WITH HIM FROM HOME. VS TAKEN AND ENTERED. PT STATES HE IS TIRED AND WOULD LIKE TO REST. ASKED PT A FEW QUESTIONS ABOUT HX AND PT STATES NOTHING HAS CHANGED SINCE HIS LAST ADMISSION. WILL COMPLET HX WITH PT RECORD. HE STATES "I WISH THESE PEOPLE WOULD QUIT FOLLOWING ME" PT DID NOT ELABORATE ON THIS FURTHER. PT DENIES FURTHER NEEDS AT THIS TIME. CALL LIGHT IS CLOSE.
--- NOTE | 2021-02-25 21:45 | NUR ---
ASSESSMENT COMPLETE, PRN PAIN MEDICATION GIVEN FOR 5/10 PAIN (SEE EMAR). VSS, pt IN BED. IV ABX INFUSING PER MD ORDERS, SITE WNL. NO FURTHER NEEDS AT THIS TIME, CALL LIGHT IN REACH.
--- NOTE | 2021-02-25 21:53 | NUR ---
IN ROOM WHILE MADDI RN IS ASSESSING PT AND CHECKED PT'S BLOOD GLUCOSE WHICH WAS 169. PRIMARY RN REMAINS IN THE ROOM WITH THE PT AT THIS TIME.
--- NOTE | 2021-02-25 22:15 | NUR ---
pt HAS HX: DIABETES. WHEN ASKED IF HE TAKES INSULIN AT HOME, pt STATES, "IF I HAVE IT, I HAVEN'T HAD IT IN AWHILE". pt UNABLE TO VERBALIZE INSULIN TYPE OR AMOUNT HE TAKES AT HOME. CALLED DR STAPLES AND CLARIFIED ORDERS. pt IS A DIABETIC AND HAS ADA DIET, RECENT ACCUCHECK RESULT IN 160'S. TELEPHONE ORDERS READ BACK FOR INSULIN LISPRO SLIDING SCALE (MODERATE) WITH MEALS AND AT BEDTIME TO START TONIGHT. NO ORDERS FOR MAINTENANCE FLUIDS, DISCUSSED BUN AND CREATININE RESULTS WITH MD. NO NEW ORDERS AT THIS TIME.
--- NOTE | 2021-02-25 22:45 | NUR ---
pt FOUND SITTING ON EDGE OF BED, IV PULLED AND pt WET OF URINE. pt REPORTS HE HAD TO VOID AND SPILLED ON HIMSELF. pt AND FLOOR CLEANED UP, NEW GOWN PROVIDED. pt BACK IN BED, MAXX ROSA TO ATTEMPT TO PLACE NEW IV. pt EDUCATED ON USING CALL LIGHT BEFORE GETTING OOB, pt VERBALIZED UNDERSTANDING. WILL CONTINUE TO MONITOR, BED ALARM ON FOR SAFETY.
--- NOTE | 2021-02-25 23:00 | NUR ---
TOOK PT'S BS, IT WAS 167. PT REFUSED AT FIRST TO HAVE HIS BLOOD SUGAR CHECKED BUT THEN AGREED. HE IS TIRED AND DOES NOT WANT TO BE BOTHERED. CALL LIGHT IS CLOSE.
--- NOTE | 2021-02-25 23:05 | NUR ---
ACCUCHECK RESULT OF 167, 1 UNIT INSULIN LISPRO GIVEN (SEE EMAR). VERIFIED BY SECOND RN MARTIN. pt APOLOGIZED FOR GETTING OOB AND PULLING OUT IV, pt EDUCATED ON NEED TO USE CALL LIGHT AND SAFETY, pt VERBALIZED UNDERSTANDING. BED ALARM ON TO ENSURE SAFETY. CALL LIGHT IN REACH.
--- NOTE | 2021-02-25 23:15 | NUR ---
NEW IV STARTED IN L FA, PT TOLERATED POORLY. PT ACTED VERY PAINFUL. SCHEDULED IV MED PROVIDED. NO OTHER NEEDS. CALL LIGHT IN REACH.
--- NOTE | 2021-02-26 00:10 | NUR ---
pt RESTING IN BED WITH EYES CLOSED, RR EVEN AND UNLABORED. NO DISTRESS NOTED, BED ALARM ON FOR SAFETY AND CALL LIGHT IN REACH.
--- NOTE | 2021-02-26 01:05 | NUR ---
BED ALARM GOING OFF, THIS RN IN ROOM TO ASSESS. pt REPORTS NEED TO VOID, URINAL PROVIDED. DARK, CONCENTRATED URINE NOTED. VSS, pt DENIES FURTHER NEEDS OR CONCERNS. CALL LIGHT IN REACH. DRESSING TO LEFT STUMP AND RIGHT FOOT REMAIN UNCHANGED. CALL LIGHT IN REACH AND BED ALARM ON FOR SAFETY. pt AGAIN EDUCATED ON NEED TO CALL BEFORE GETTING OOB, pt VERBALIZED UNDERSTANDING. WILL CONTINUE TO MONITOR CLOSELY.
--- NOTE | 2021-02-26 02:32 | NUR ---
pt RESTING QUIETLY IN BED WITH EYES CLOSED, RR EVEN AND UNLABORED. NO DISTRESS OR SIGNS OF PAIN NOTED, CALL LIGHT IN REACH AND BED ALARM ON FOR SAFETY.
--- NOTE | 2021-02-26 04:18 | NUR ---
pt getting oob, voided in urinal, back in bed, bed alarm reset, no further needs, 500ml darm brynn urine
--- NOTE | 2021-02-26 04:57 | NUR ---
pt ARRIVED TO THE FLOOR THIS SHIFT, HERE FOR DIABETIC FOOT/STUMP ULCERS. ACCUCHECK 160'S THIS SHIFT, INSULIN LISPRO ADDED TO EMAR. ADA DIET, NO NAUSEA REPORTED. BOWEL TONES ACTIVE. PAIN CONTROLLED WITH PRN PAIN MEDICATIONS. pt IMPULSIVE, BED ALARM ON FOR SAFETY. CRUTCHES AT BEDSIDE. LBKA, ALLEVYN TO LEFT STUMP AND DRESSING TO RIGHT FOOT. PHOTOS OF WOUNDS IN CHART. BOTH DRESSINGS C/D/I. RECEIVING IV ABX, SALINE LOCKED OTHERWISE. VOIDING QS DARK CONCENTRATED URINE, URINAL AT BEDSIDE. NO BM THIS SHIFT. pt ON WAITLIST FOR HIGHER LEVEL CARE REGARDING WOUND CARE. pt OF DR STAPLES.
--- NOTE | 2021-02-26 05:15 | NUR ---
RECEIVED CALL FROM [facility] ASKING FOR A FACE SHEET TO PUT PT ON LIST. INFORMATION PASSED ON TO PRIMARY RN MADDI.
--- NOTE | 2021-02-26 05:24 | NUR ---
NOTIFIED BY MAXX ROSA, [facility] CALLED REQUESTING WE FAX pt FACESHEET SO pt CAN BE PLACED ON TRANSFER WAITLIST. FAX # [phone]. SENIOR ENERGY TRADERMAXX MAGDALENO. FACESHEET FAXED.
--- NOTE | 2021-02-26 05:46 | NUR ---
BED ALARMING, pt SITTING ON EDGE OF BED REPORTS NEED TO VOID. URINAL AT BEDSIDE, OUTPUT REMAINS CONCENTRATED. VS AND I&O'S ALSO DONE, BOTH STABLE. ASSESSMENT COMPLETE, NO NEW CHANGES OR CONCERNS, pt DENIES PAIN. CALL LIGHT IN REACH.
--- NOTE | 2021-02-26 08:06 | NUR ---
H&P sent to [facility] per Rn request.
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
--- NOTE | 2021-02-26 09:30 | NUR ---
IN GIVE PT MEDICATIONS AND START INFUSION OF CEFEPIME ABX. RFA IV REMAINS PATENT. PT REFUSING BREAKFAST CBG 154, SS HUMALOG HELD. PT IS ALERT, DISORIENTED TO DATE BY 2 DAYS, SOMEWHAT ORIENTED TO SITUATION. UNDERSTANDS HE HAS AN INFECTION IN HIS RIGHT FOOT THAT IS BEING TREATED W/ ABX. STATES "THOSE MEN ARE GONNA GET ME" AND "MY FAMILY DOESN'T CARE ABOUT ME." PT REASSURED AND CALMED DOWN. PT ON BED ALARM HE IS UNSTEADY ON HIS FEET W/ LEFT BKA AND RIGHT FOOT WOUND. PT AMBULATES W/ CRUTCHES BUT IS IMPULSIVE. PT STATES RIGHT FOOT PAIN IS 5/10, REFUSING ANY PAIN MEDICATION AT THIS TIME. RLE DRESSING TO FOOT REMAINS C,D,I, INSTRUCTED NOT TO CHANGE DRESSING TODAY. PT ENCOURAGED TO EAT, HE IS REFUSING. CALL LIGHT IN REACH.
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
--- NOTE | 2021-02-26 10:25 | NUR ---
PATIENT INDICATED TO PRIMARY NURSE, STEVEN, THAT HE WANTED TO LEAVE THE HOSPITAL. THIS NURSE IN TO DISCUSS WITH PATIENT, LEAVING AMA. PATIENT INDICATED THAT HE WANTED TO LEAVE THIS FACILITY. CALL TO PATIENT'S MOM, RENNY GIFFORD, THAT PATIENT WANTED TO LEAVE THIS FACILITY. MOM REQUESTED THAT PERHAPS DR. STAPLES COULD COME AND VISIT WITH THE PATIENT. I INDICATED THAT I WOULD GET A MESSAGE TO DR. STAPLES. CALL TO PACU NURSE, JANE, TO GIVE DR. STAPLES THE MESSAGE THAT PATIENT WANTED TO LEAVE AMA AND THAT MOM WAS REQUESTING HE COME AND SEE PATIENT.
--- NOTE | 2021-02-26 11:00 | NUR ---
MOTHER CALLED BY ISABELLE BURKS RN, PT IS INCREASINGLY AGITATED AND WANTING TO LEAVE. DR STAPLES AWARE OF PT REQUESTING TO LEAVE AMA, DR IS CURRENTLY IN A PROCEDURE. JASIEL MORENOCASE FILLER AND ISABELLE BURKS RN AND THIS RN HAVE ALL ADVISED PT AGAINST LEAVING D/T NEED FOR ABX TO TREAT OSTEOMYELITIS TO RIGHT FOOT. PT TOLD INFECTION WILL LIKELY WORSEN WITHOUT TREATMENT. CONTINUES TO REFUSE, ASKING FOR CLOTHES. AMA FORM SIGNED AND IV REMOVED. DR. STAPLES CALLED TO CHECK IN, AWARE OF SITUATION.
--- NOTE | 2021-02-26 11:10 | NUR ---
[facility] RN IN TO CHANGE DRESSING TO RIGHT FOOT AND ATTEMPTED TO CALM PT AND OFFER REASSURANCE. PT VERY EMOTIONAL AND ANXIOUS. PREMEDICATED W/ NORCO PRIOR TO DRESSING CHANGE.
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
--- NOTE | 2021-02-26 11:30 | NUR ---
MOTHER IN TO SEE PT. PT LEFT AMA WITH BELONGINGS. IV REMOVED. FORM SIGNED.
--- NOTE | 2021-02-26 11:59 | NUR ---
WAS TOLD GO DOWN TO MEDICAL/SURGICAL FLOOR TO HELP CALM AND TALK WITH JO ANN GONG BY CHARGE NURSE FROM [facility], WHO WAS TOLD PATIENT NEEDED SOMEONE WITH A GOOD REPORE TO APRROACH HIM. UPON ENTERING ROOM PATIENT WAS CRYING AND SITTING ON EDGE OF BED WITH CLOTHES PILED ON HIM. PATIENT STATED, "I AM NOT LOVED, THE PEOPLE ARE GOING TO GET ME, I MIGHT " APPEARED TO BE UPSET AND NOT MAKING SENCE WITH HIS SENTENCES. DISCUSSED WITH PATIENT SERIOUSNESS OF FOOT INFECTION AND IF UNTREATED MAY LOOSE THE RIGHT FOOT. PATIENT MADE EYE CONTACT WITH NURSE AND SOBBING BEGAN TO SLOW. VALORIE FROM SECURITY INTO ROOM, WHO STATED "HEY BRENT REMEMBER ME, WE GET ALONG GOO" AFTER AWHILE OF POSITIVE ENCOURAGEMENT THE PATIENT WAS ABLE TO LAY BACK IN THE BED. AT THIS TIME IT APPEARED THE PATIENT HAD ALREADY SIGNED THE AMA FORM. OFFERED PATIENT TO HAVE DRESSING CHANGE BEFORE LEAVING SECONDARY TO [facility], AND DRESSING APPEARING TO BE LOOSENING. PROVIDED DRESSING CHANGE PER ORDERS. PATIENT'S MOTHER INTO ROOM, STATED " I AM SO WORRIED ABOUT MY SON. I WAS JUST TOLD HE WOULDN'T BE GOING ANYWHERE TODAY" I VERIFIED THIS INFORMATION WITH THE DIRECTOR MBA JASIEL. BACK INTO ROOM THE PATIENT'S MOTHER STATED "I WANT TO GET HIM SOMEWHERE ELSE, BUT [place] IS TOO FAR FOR ME TO DRIVE". I TOLD PATIENT THAT THERE WERE MANY SURROUNDING HOSPITALS LIKE [facility] AND [facility] WHERE YOU COULD TAKE HIM". THE MOTHER REPLIED THAT SHE COULD GET HIM TO [facility] AND ASKED HOW SHE COULD GET HIM SEEN THERE. I VERBALIZED TO HER THAT BECAUSE THEY WERE LEAVING THIS HOSPITAL AMA THEY WOULD HAVE TO START THE PROCESS OVER, AND BE SEEN IN THE EMERGENCY ROOM FOR EVALUATION, AND THAT IT WOULD BE A TIMELY PROCESS. THE PATIENT'S MOTHER VERBALIZED UNDERSTANDING. I THEN NOTIFIED DR. STAPLES THAT I WOULD BE TAKING HIM OUT TO HIS MOTHER'S CAR WHO HAD A PLAN TO GET HIM SEEN SOMEWHERE ELSE. PATIENT TRANSFERRED INTO VEHICLE WELL, APPEARED TO BE SMILING. AND MOTHER DROVE AWAY FROM HOSPITAL WITH PATIENT.
--- NOTE | 2021-02-26 12:38 | NUR ---
DR. STAPLES CALLED. SEE RN NOTE
== END 2021-02-26 11:15 | disposition left against medical advice (07) ==
LOC: ED 14:26 → MS 14:27
PROVIDERS: ADMIT Specialist; ATTEND Specialist
DX: T87.44 Infection of amputation stump, left lower extremity (principal); E11.621 Type 2 diabetes mellitus with foot ulcer; L97.529 Non-pressure chronic ulcer of other part of left foot with unspecified severity; E11.628 Type 2 diabetes mellitus with other skin complications; L03.116 Cellulitis of left lower limb; I10 Essential (primary) hypertension; Z20.822 Contact with and (suspected) exposure to COVID-19; Y83.5 Amputation of limb(s) as the cause of abnormal reaction of the patient, or of later complication, without mention of misadventure at the time of the procedure; Z53.29 Procedure and treatment not carried out because of patient's decision for other reasons; Z87.891 Personal history of nicotine dependence; Z88.0 Allergy status to penicillin
CPT/HCPCS: 36415; 80048; 85025; 96374; 96375; 96376; 99284; A9270; C9803; G0378; J0692; J1815; J3370; J7040; J7060; U0003

== ENCOUNTER 2021-04-02 12:48 | Emergency (ER) | payer OTHER ==
[~2021-04-02] VITALS: Ht 177.8 cm; Wt 78.9 kg
[~2021-04-02 12:48] MED LIST changes: +VITAMIN B-121000 MCG PO
--- OUTSIDE RECORDS SUMMARY | 2021-04-02 12:58 | XMS ---
PreManage Notification: JO ANN MC Security Weekend Receptionist Events 3 event(s) in the past 18 months Most recent security events: Elopement at [facility] 11/16/2020 14:01 - Other Details: PATIENT LEFT AMA. Elopement at [facility] 02/29/2020 14:47 - Other Details: PATIENT LEFT AMA. Elopement at [facility] 10/30/2019 18:49 - Other Details: PATIENT LWBS CRITERIA MET - [facility] - 2 Visits in 30 Days - Group Notification - History of Sepsis Dx - 6 ED Visits in 6 Months CARE PROVIDERS KIRSTEN OCONNELL Physician Repeater Operator: Surgical 06/12/2018-Current PHONE: Unknown JUDY GUTIÉRREZ Physician 04/01/2019-Current PHONE: Unknown [facility] 10/11/2019-[facility] PHONE: [phone] Kika has no Care Guidelines for this patient. Care History Medical/Surgical 01/13/2021 [facility] - CHW CONTACTED PHILIP LILLYSTARS COORDINATOR AT [facility]- - PATIENT IS NOT FOLLOWING UP WITH PCP - PCP HAS REFERRED PATIENT TO DIABETIC EDUCATION AT [facility] 06/17/2020 [facility] - PATIENT HAS NO SHOWED TO APTS AT [facility]-LAST APT WITH PCP WAS ON 10/10/2019. - SERVICES AT [facility] HAVE MADE ATTEMPTS TO CONTACT PATIENT BUT NUMBER PROVIDED IS NO LONGER IN SERVICE. - PHILIP LILLYSTARS COORDINATOR AT [facility] WILL CONTACT PCP AND SEE IF FURTHER FOLLOW UP CAN BE DONE WITH PATIENT. 10/07/2019 [facility] - CHW CONTACTED STARS COORDINATOR PHILIP AT [facility]- REQUESTED RECENT ED RECORDS TO REQUEST AN ENT REFERRAL FOR PATIENT. - CHW SENT OVER REQUESTED RECORDS FOR ENT REFERRAL REQUEST. - PHILIP LILLYSTARS COORDINATOR WILL CONTACT PATIENT FOR FURTHER FOLLOW UP. E.D. VISIT COUNT (12 MO.) 1 [facility] 1 [facility] 11 [facility]. TOTAL 13 NOTE: Visits indicate total known visits. ED/UCC VISIT TRACKING (12 MO.) 04/02/2021 12:49 SHANTI Aguilar TYPE: Emergency COMPLAINT: - FLANK PAIN 03/09/2021 19:59 SHANTI Lugo [place] TYPE: Emergency COMPLAINT: - WOUND CHECK 02/26/2021 13:52 [facility]: Emergency DIAGNOSES: - Osteomyelitis, unspecified - Non-pressure chronic ulcer of other part of right foot with fat layer exposed - Acute kidney failure, unspecified - Type 2 diabetes mellitus with foot ulcer - Sepsis, unspecified organism - Wound Infection (Complicated) - Chronic kidney disease, stage 3b 02/25/2021 14:26 SHANTI BainDarcie Alonso [place] TYPE: Emergency COMPLAINT: - WOUND CARE 01/15/2021 19:11 SHANTI Clyman HDarcie Alonso [place] TYPE: Emergency COMPLAINT: - R FOOT PAIN/NO INJ 01/11/2021 07:43 SHANTI Clyman HDarcie Alonso [place] TYPE: Emergency COMPLAINT: - LT LEG STUMB BLEEDING DIAGNOSES: - Type 2 diabetes mellitus without complications - Essential (primary) hypertension - Allergy status to penicillin - Infection of amputation stump, right lower extremity - Cutaneous abscess of right lower limb - Cellulitis of right lower limb 01/09/2021 15:00 SHANTI Clyman Avni Alonso [place] TYPE: Emergency COMPLAINT: - LT LEG PAIN DIAGNOSES: - Allergy status to penicillin - Type 2 diabetes mellitus without complications - Contusion of right lower leg, initial encounter - Other watermaster (current) drug therapy - Fall on same [...] other specified factors, initial encounter - Other assisted (current) drug therapy - Fracture of one [...] limb - Allergy status to penicillin - 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 - Essential (primary) hypertension - Cellulitis of left lower limb 08/06/2020 18:12 [facility] TYPE: Emergency COMPLAINT: - fall 06/16/2020 19:06 SHANTI Aguilar TYPE: Emergency COMPLAINT: - BLOOD SUGAR ISSUES DIAGNOSES: - Allergy status to penicillin - Weakness - Type 2 diabetes mellitus without complications - Hypokalemia - Essential (primary) hypertension - alf (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 - Patient's noncompliance with other medical treatment and regimen - Other malaise 05/14/2020 19:50 SHANTI Aguilar TYPE: Emergency COMPLAINT: - CHEST PAIN DIAGNOSES: - Essential (primary) hypertension - Type 2 diabetes mellitus without complications - Chest pain, unspecified - Other chest pain - Other watermaster (current) drug therapy - Allergy status to penicillin INPATIENT VISIT TRACKING (12 MO.) 02/26/2021 13:52 [facility] TYPE: Internal Medicine DIAGNOSES: - Acute kidney failure, unspecified - Chronic kidney disease, stage 3b - Osteomyelitis, unspecified - Sepsis, unspecified organism - Type 2 diabetes mellitus with foot ulcer - Non-pressure chronic ulcer of other part of right foot with fat layer exposed 02/25/2021 14:27 SHANTI Lugo [place] TYPE: Observation COMPLAINT: - DIABETIC FOOT ULCERS DIAGNOSES: - Procedure and treatment not carried out because of patient's decision for other reasons - Allergy status to penicillin - Non-pressure chronic ulcer of other part of left foot with unspecified severity - Cellulitis of left lower limb - Amputation of limb(s) as the cause of abnormal reaction of the patient, or of later complication, without mention of misadventure at the time of the procedure - Essential (primary) hypertension - Infection of amputation stump, left lower extremity - Type 2 diabetes mellitus with other skin complications - Type 2 diabetes mellitus with foot ulcer - Personal history of nicotine dependence 01/15/2021 21:[address] [facility] Alonso [place] [...] unspecified - Personal history of nicotine dependence [email or web address]
[2021-04-02] MEDS ORDERED: LISINOPRIL10 MG PO (13:21)
[2021-04-02] MEDS ORDERED: FEROSUL325 MG (13:21)
[2021-04-02] MEDS ORDERED: SULFAMETHOXAZO1 EAC1 (13:21)
--- NOTE | 2021-04-08 12:53 | NUR ---
[facility] CALLED TO STATE THEY WERE UNABLE TO RUN PTS DEEP WOUND CULTURE CULTURE WAS PLACED IN THE WRONG MEDIUM. ER CALLED AND UPDATED, STATES PT IS NO LONGER AT THIS HOSPITAL BUT WAS TRANSPORTED TO [facility]. [facility] CALLED AND STATES PT WAS DISCHARGED YESTERDAY. DR. MOYA, [facility] ER, CONSULTED AND STATES TO UPDATE THE DOCTOR WHO WAS CARING FOR PT PRIOR TO [facility] NO ANSWER AT THIS TIME. AWAITING CALL BACK.
--- NOTE | 2021-04-08 13:02 | NUR ---
[facility] MANAGER BUSINESS INFORMATION CALLED AGAIN. REPORT ON LACK OF DEEP WOUND CULTURE GIVEN TO BILLY, MANAGER BUSINESS INFORMATION AT [facility], WHO STATES SHE WILL NOTIFTY THE PTS DOCTOR AND CARE TEAM AND ENSURE FOLLOW UP. BILLY STATES HER QUESTIONS HAVE BEEN ANSWERED.
== END 2021-04-02 17:38 | disposition short-term general hospital (02) ==
LOC: ED 12:48
DX: M86.9 Osteomyelitis, unspecified (principal); E11.22 Type 2 diabetes mellitus with diabetic chronic kidney disease; I12.9 Hypertensive chronic kidney disease with stage 1 through stage 4 chronic kidney disease, or unspecified chronic kidney disease; N18.9 Chronic kidney disease, unspecified; Z20.822 Contact with and (suspected) exposure to COVID-19
CPT/HCPCS: 73630; 80053; 80500; 81001; 83605; 85025; 96374; 96375; 99284-25; C9803; J3370; J7030; J7060; U0003

== ENCOUNTER 2021-05-14 14:04 | Emergency (ER) | payer OTHER ==
[~2021-05-14] VITALS: Ht 177.8 cm; Wt 78.9 kg
[~2021-05-14 14:04] MED LIST changes: +FEROSUL325 MG; +SULFAMETHOXAZO1 EAC1
--- OUTSIDE RECORDS SUMMARY | 2021-05-14 14:06 | XMS ---
PreManage Notification: JO ANN MC Security Brewery Pumper Events 2 event(s) in the past 18 months Most recent security events: Elopement at [facility] 11/16/2020 14:01 - Other Details: PATIENT LEFT AMA. Elopement at [facility] 02/29/2020 14:47 - Other Details: PATIENT LEFT AMA. CRITERIA MET - Group Notification - 6 ED Visits in 6 Months - History of Sepsis Dx CARE PROVIDERS KIRSTEN OCONNELL Physician Chemical Engineering Teacher: Surgical 06/12/2018-Current PHONE: Unknown JUDY GUTIÉRREZ 04/01/2019-Current PHONE: Unknown [facility] 10/11/2019-[facility] PHONE: [phone] Kika has no Care Guidelines for this patient. Care History Medical/Surgical 01/13/2021 [facility] - W CONTACTED PHILIP LILLYBIOLOGIST AIDE AT [facility]- - PATIENT IS NOT FOLLOWING UP WITH PCP - PCP HAS REFERRED PATIENT TO DIABETIC EDUCATION AT [facility] 06/17/2020 [facility] - PATIENT HAS NO SHOWED TO APTS AT [facility]-LAST APT WITH PCP WAS ON 10/10/2019. - SERVICES AT [facility] HAVE MADE ATTEMPTS TO CONTACT PATIENT BUT NUMBER PROVIDED IS NO LONGER IN SERVICE. - PHILIP LILLYBIOLOGIST AIDE AT [facility] WILL CONTACT PCP AND SEE IF FURTHER FOLLOW UP CAN BE DONE WITH PATIENT. 10/07/2019 [facility] - CHW CONTACTED BIOLOGIST AIDE PHILIP AT [facility]- REQUESTED RECENT ED RECORDS TO REQUEST AN ENT REFERRAL FOR PATIENT. - CHW SENT OVER REQUESTED RECORDS FOR ENT REFERRAL REQUEST. - PHILIP LILLYBIOLOGIST AIDE WILL CONTACT PATIENT FOR FURTHER FOLLOW UP. E.D. VISIT COUNT (12 MO.) 1 [facility] [address] TOTAL 14 NOTE: Visits indicate total known visits. ED/UCC VISIT TRACKING (12 MO.) 05/14/2021 14:04 [facility]ANTI Lugo [place] TYPE: Emergency COMPLAINT: - FEVER 04/02/2021 12:49 SHANTI Lugo [place] TYPE: Emergency COMPLAINT: - FOOT INFECTION DIAGNOSES: - Unspecified abdominal pain - Chronic kidney disease, unspecified - Osteomyelitis, unspecified - Hypertensive chronic kidney disease with stage 1 through stage 4 chronic kidney disease, or unspecified chronic kidney disease - Chronic kidney disease, unspecified - Type 2 diabetes mellitus with diabetic chronic kidney disease 03/09/2021 19:59 SHANTI Lugo [place] TYPE: Emergency COMPLAINT: - WOUND CHECK 02/26/2021 13:52 [facility] TYPE: Emergency DIAGNOSES: - Osteomyelitis, unspecified - Non-pressure chronic ulcer of other part of right foot with fat layer exposed - Acute kidney failure, unspecified - Type 2 diabetes mellitus with foot ulcer - Sepsis, unspecified organism - Wound Infection (Complicated) - Chronic kidney disease, stage 3b 02/25/2021 14:26 SHANTI Aguilar TYPE: Emergency COMPLAINT: - WOUND CARE 01/15/2021 19:11 SHANTI Aguilar TYPE: Emergency COMPLAINT: - R FOOT PAIN/NO [...] right lower leg, initial encounter - Other supervisor intermediates (current) drug therapy - Fall on same [...] other specified factors, initial encounter - Other supervisor intermediates (current) drug therapy - Fracture of one [...] limb - Allergy status to penicillin - 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 Pain in right foot 1. Other acute osteomyelitis, right ankle and foot 2. Acute kidney failure, unspecified 3. Chronic kidney disease, stage 4 (severe) 4. Unspecified hydronephrosis 5. Cutaneous abscess of right foot 6. Acidosis 7. Type 2 diabetes mellitus with diabetic chronic kidney disease 8. Type 2 diabetes mellitus with diabetic polyneuropathy 9. Hypertensive chronic kidney disease with stage 1 through stage 4 chronic kidney disease, or unspecified chronic kidney disease 10. Anemia in chronic kidney disease 11. Methicillin susceptible Staphylococcus aureus infection as the cause of diseases classified elsewhere 12. Other specified bacterial agents as the cause of diseases classified elsewhere 13. Bacteroides fragilis [B. fragilis] as the cause of diseases classified elsewhere 14. Hematuria, unspecified 15. Proteinuria, unspecified 16. Calculus of kidney 17. Hypokalemia 18. Acquired absence of other right toe(s) 19. Allergy status to penicillin 20. Acquired absence of left leg below knee 21. Personal history of nicotine dependence 22. Family history of ischemic heart disease and other diseases of the circulatory system 02/26/2021 13:52 [facility] TYPE: Internal Medicine DIAGNOSES: - Acute kidney [...] unspecified - Personal history of nicotine dependence [email or web address]
== END 2021-05-14 15:06 | disposition home or self-care (01) ==
LOC: ED 14:04
DX: R53.83 Other fatigue (principal); E11.9 Type 2 diabetes mellitus without complications; I10 Essential (primary) hypertension; Z88.0 Allergy status to penicillin; Z79.899 Other long term (current) drug therapy
CPT/HCPCS: 99283

== ENCOUNTER 2022-04-30 09:06 | Emergency (ER) | payer OTHER ==
[~2022-04-30] VITALS: Ht 177.8 cm; Wt 78.9 kg
--- OUTSIDE RECORDS SUMMARY | 2022-04-30 09:08 | XMS ---
PreManage Notification: JO ANN MC Security Stockkeeper Events 2 event(s) in the past 18 months Most recent security events: Elopement at [facility] 05/20/2021 18:25 - Other Details: PATIENT LWJAQUELIN Elopement at [facility] 11/16/2020 14:01 - Other Details: PATIENT LEFT AMA. CRITERIA MET - Group Notification CARE PROVIDERS KIRSTEN OCONNELL Physician Service And Repair Supervisor: Surgical 06/12/2018-Current PHONE: Unknown JUDY GUTIÉRREZ 04/01/2019-Current PH[facility] PHONE: [phone] Kika has no Care Guidelines for this patient. Care History Medical/Surgical 01/13/2021 [facility] - CHW CONTACTED PHILIP LILLYSUPERVISOR CONTACT AND SERVICE CLERKS AT [facility]- - PATIENT IS NOT FOLLOWING UP WITH PCP - PCP HAS REFERRED PATIENT TO DIABETIC EDUCATION AT [facility] 06/17/2020 [facility] - PATIENT HAS NO SHOWED TO APTS AT [facility]-LAST APT WITH PCP WAS ON 10/10/2019. - SERVICES AT [facility] HAVE MADE ATTEMPTS TO CONTACT PATIENT BUT NUMBER PROVIDED IS NO LONGER IN SERVICE. - PHILIP LILLYSUPERVISOR CONTACT AND SERVICE CLERKS AT [facility] WILL CONTACT PCP AND SEE IF FURTHER FOLLOW UP CAN BE DONE WITH PATIENT. 10/07/2019 [facility] - CHW CONTACTED SUPERVISOR CONTACT AND SERVICE CLERKS PHILIP AT [facility]- REQUESTED RECENT ED RECORDS TO REQUEST AN ENT REFERRAL FOR PATIENT. - CHW SENT OVER REQUESTED RECORDS FOR ENT REFERRAL REQUEST. - PHILIP LILLYSUPERVISOR CONTACT AND SERVICE CLERKS WILL CONTACT PATIENT FOR FURTHER FOLLOW UP. E.D. VISIT COUNT (12 MO.) [address] Sindy Suárez 3 [facility]. TOTAL 8 NOTE: Visits indicate total known visits. 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 - Local infection of the skin and subcutaneous tissue, unspecified - Foot Wound - Type 1 diabetes mellitus with other skin complications - Osteomyelitis, unspecified - rt ft poss infection - Unspecified fracture of left foot, subsequent encounter for fracture with delayed healing - Type 2 diabetes mellitus with other skin complications - Type 2 diabetes mellitus with diabetic neuropathy, unspecified 10/06/2021 11:38 [facility] Marilyn BERNARD TYPE: Emergency DIAGNOSES: - Displaced fracture of proximal phalanx of right lesser toe(s), initial encounter for closed fracture - Type 2 diabetes mellitus with other skin complications - Foot Wound - Right toe/Poss Infection - Local infection of the skin and subcutaneous tissue, unspecified 05/20/2021 20:01 [facility] Marilyn BERNARD TYPE: Emergency DIAGNOSES: - Weakness - foot pain, kidney issues - Other acute kidney failure - Back Pain 05/20/2021 18:25 SHANTI Lugo [place] TYPE: Emergency COMPLAINT: - WEAKNESS 05/14/2021 14:04 SHANTI Lugo [place] TYPE: Emergency COMPLAINT: - FEVER DIAGNOSES: - Essential (primary) hypertension - Type 2 diabetes mellitus without complications - Allergy status to penicillin - Other fatigue - Other group home (current) drug therapy - Fever, unspecified INPATIENT VISIT TRACKING (12 MO.) 01/20/2022 14:20 [facility] Kamini BERNARD TYPE: Surgical Services DIAGNOSES: - Local infection of the skin and subcutaneous tissue, unspecified - Chronic kidney disease, stage 3b - Type 2 diabetes mellitus without complications - Type 2 diabetes mellitus with other skin complications - Type 1 diabetes mellitus with other skin complications - Other chronic osteomyelitis, right ankle and foot - Type 2 diabetes mellitus with diabetic neuropathy, unspecified - Unspecified fracture of left foot, subsequent encounter for fracture with delayed healing - Osteomyelitis, unspecified - Acquired absence of right foot - retail presentation specialist (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 - Other symptoms and signs involving cognitive functions and awareness 05/20/2021 20:[address] Sindy BERNARD TYPE: Surgical Services DIAGNOSES: - Hypo-osmolality and hyponatremia - Metabolic encephalopathy - Acute kidney failure, unspecified - Other acute kidney failure - Retention of urine, unspecified - Encephalopathy, unspecified [email or web address]
[2022-04-30] MEDS ORDERED: CIPROFLOXACIN750 MG PO (10:44)
[2022-04-30] MEDS ORDERED: INSULIN GL100 UNIT/2 SQ (10:44)
[2022-04-30] MEDS ORDERED: SODIUM BICARBO650 MG PO (10:44)
== END 2022-04-30 11:11 | disposition home or self-care (01) ==
LOC: ED 09:06
DX: L97.519 Non-pressure chronic ulcer of other part of right foot with unspecified severity (principal); E11.9 Type 2 diabetes mellitus without complications; I10 Essential (primary) hypertension; Z88.0 Allergy status to penicillin; Z79.899 Other long term (current) drug therapy; Z79.4 Long term (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
CPT/HCPCS: 99282

== ENCOUNTER 2022-10-12 10:13 | Emergency (ER) | payer OTHER ==
[~2022-10-12] VITALS: Ht 177.8 cm; Wt 79.0 kg
[~2022-10-12 10:13] MED LIST changes: +CIPROFLOXACIN750 MG PO; +INSULIN GL100 UNIT/2 SQ; +SODIUM BICARBO650 MG PO
--- OUTSIDE RECORDS SUMMARY | 2022-10-12 10:16 | XMS ---
PreManage Notification: JO ANN MC Security Survey Crew Chief Events 1 event(s) in the past 18 months Most recent security events: Elopement at [facility] 05/20/2021 18:25 - Other Details: PATIENT LWBS CRITERIA MET - Group Notification CARE PROVIDERS KIRSTEN OCONNELL Physician Manager Water: Surgical 06/12/2018-Current PHONE: Unknown JUDY GUTIÉRREZ Physician 04/01/2019-Current PHONE: Unknown [facility] 10/11/2019-[facility] PHONE: [phone] Kika has no Care Guidelines for this patient. Care History Medical/Surgical 01/13/2021 [facility] - CHW CONTACTED PHILIP LILLYTELEPHONE TECHNICIAN AT [facility]- - PATIENT IS NOT FOLLOWING UP WITH PCP - PCP HAS REFERRED PATIENT TO DIABETIC EDUCATION AT [facility] 06/17/2020 [facility] - PATIENT HAS NO SHOWED TO APTS AT [facility]-LAST APT WITH PCP WAS ON 10/10/2019. - SERVICES AT [facility] HAVE MADE ATTEMPTS TO CONTACT PATIENT BUT NUMBER PROVIDED IS NO LONGER IN SERVICE. - PHILIP LILLYTELEPHONE TECHNICIAN AT [facility] WILL CONTACT PCP AND SEE IF FURTHER FOLLOW UP CAN BE DONE WITH PATIENT. 10/07/2019 [facility] - CHW CONTACTED TELEPHONE TECHNICIAN PHILIP AT [facility]- REQUESTED RECENT ED RECORDS TO REQUEST AN ENT REFERRAL FOR PATIENT. - CHW SENT OVER REQUESTED RECORDS FOR ENT REFERRAL REQUEST. - PHILIP LILLYTELEPHONE TECHNICIAN WILL CONTACT PATIENT FOR FURTHER FOLLOW UP. E.D. VISIT COUNT (12 MO.) [facility] TOTAL 5 NOTE: Visits indicate total known visits. ED/UCC VISIT TRACKING (12 MO.) 10/12/2022 10:14 SHANTI Aguilar TYPE: Emergency COMPLAINT: - R FOOT WOUND 04/30/2022 09:06 SHANTI Aguilar TYPE: Emergency COMPLAINT: - WOUND CARE DIAGNOSES: - Allergy status to penicillin - Type 2 diabetes mellitus without complications - Essential (primary) hypertension - Non-pressure chronic ulcer of other part of right foot with unspecified severity - Other halfway (current) drug therapy - search manager (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 03/28/2022 16:[address] [facility]: [facility] DIAGNOSES: - Osteomyelitis, unspecified - Foot Wound - foot infection 03/25/2022 14:58 [facility] DIAGNOSES: - MRI on foot per His Childers - Abnormal Lab - Osteomyelitis, unspecified 01/20/2022 14:20 [facility]: Emergency DIAGNOSES: - Type 1 diabetes mellitus with other skin complications - Local infection of the skin and subcutaneous tissue, unspecified - Type 2 diabetes mellitus with diabetic neuropathy, unspecified - Chronic kidney disease, stage 3b - Unspecified fracture of left foot, subsequent encounter for fracture with delayed healing - Osteomyelitis, unspecified - Foot Wound - search manager (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 - Type 2 diabetes mellitus with other skin complications - rt ft poss infection INPATIENT VISIT TRACKING (12 MO.) 01/20/2022 14:20 [facility]: Surgical Services DIAGNOSES: - Type 1 diabetes mellitus with other skin complications - Other symptoms and signs involving cognitive functions and awareness - Type 2 diabetes mellitus without complications - Acquired absence of right foot - Local infection of the skin and subcutaneous tissue, unspecified - Unspecified fracture of left foot, subsequent encounter for fracture with delayed healing - Other chronic osteomyelitis, right ankle and foot - Type 2 diabetes mellitus with other skin complications - senior living (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 - Chronic kidney disease, stage 3b - Osteomyelitis, unspecified - Type 2 diabetes mellitus with diabetic neuropathy, unspecified [email or web address]
== END 2022-10-12 15:23 | disposition left against medical advice (07) ==
LOC: ED 10:13
DX: M86.9 Osteomyelitis, unspecified (principal); I10 Essential (primary) hypertension; E11.9 Type 2 diabetes mellitus without complications; Z88.0 Allergy status to penicillin; Z79.4 Long term (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; Z89.512 Acquired absence of left leg below knee
CPT/HCPCS: 36415; 73721; 80053; 85025; 85651; 86140; 99284-25

== ENCOUNTER 2022-10-27 21:39 | Emergency (ER) | payer OTHER ==
[~2022-10-27] VITALS: Ht 177.8 cm; Wt 79.0 kg
--- OUTSIDE RECORDS SUMMARY | 2022-10-27 21:42 | XMS ---
PreManage Notification: JO ANN MC Security Glass Cutting Machine Feeder Events 1 event(s) in the past 18 months Most recent security events: Elopement at [facility] 05/20/2021 18:25 - Other Details: PATIENT LWBS CRITERIA MET - Group Notification - [facility] - 2 Visits in 30 Days CARE PROVIDERS KIRSTEN OCONNELL Physician Coin Rolling Machine Operator: Surgical 06/12/2018-Current PHONE: Unknown JUDY GUTIÉRREZ 04/01/2019-Current PHONE: [facility] [facility] PHONE: [phone] Kika has no Care Guidelines for this patient. Care History Medical/Surgical 01/13/2021 [facility] - CHW CONTACTED PHILIP LILLYASSEMBLER FITTER AT [facility]- - PATIENT IS NOT FOLLOWING UP WITH PCP - PCP HAS REFERRED PATIENT TO DIABETIC EDUCATION AT [facility] 06/17/2020 [facility] - PATIENT HAS NO SHOWED TO APTS AT [facility]-LAST APT WITH PCP WAS ON 10/10/2019. - SERVICES AT [facility] HAVE MADE ATTEMPTS TO CONTACT PATIENT BUT NUMBER PROVIDED IS NO LONGER IN SERVICE. - PHILIP LILLYASSEMBLER FITTER AT [facility] WILL CONTACT PCP AND SEE IF FURTHER FOLLOW UP CAN BE DONE WITH PATIENT. 10/07/2019 [facility] - CHW CONTACTED ASSEMBLER FITTER PHILIP AT [facility]- REQUESTED RECENT ED RECORDS TO REQUEST AN ENT REFERRAL FOR PATIENT. - CHW SENT OVER REQUESTED RECORDS FOR ENT REFERRAL REQUEST. - PHILIP LILLYASSEMBLER FITTER WILL CONTACT PATIENT FOR FURTHER FOLLOW UP. E.D. VISIT COUNT (12 MO.) 3 [facility] 3 [facility] TOTAL 6 NOTE: Visits indicate total known visits. ED/UCC VISIT TRACKING (12 MO.) 10/27/2022 21:40 [facility] [place] TYPE: Emergency COMPLAINT: - WOUND CHECK 10/12/2022 10:14 [facility] [place] TYPE: Emergency COMPLAINT: - R FOOT WOUND DIAGNOSES: - Allergy status to penicillin - Type 2 diabetes mellitus without complications - Osteomyelitis, unspecified - Acquired absence of left leg below knee - terminal carman (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 - Unspecified open wound, right foot, initial encounter - Essential (primary) hypertension 04/30/2022 09:06 [facility] [place] TYPE: Emergency COMPLAINT: - WOUND CARE DIAGNOSES: - Non-pressure chronic ulcer of other part of right foot with unspecified severity - Other detention (current) drug therapy - shelter (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 - Allergy status to penicillin - Type 2 diabetes mellitus without complications - Essential (primary) hypertension 03/28/2022 16:30 [facility] Marilyn BERNARD TYPE: Emergency DIAGNOSES: - foot infection - Osteomyelitis, unspecified - Foot Wound 03/25/2022 14:58 [facility] Marilyn BERNARD TYPE: Emergency DIAGNOSES: - Osteomyelitis, unspecified - MRI on foot per His Childers - Abnormal Lab 01/20/2022 14:20 [facility] Wheeler MARCO ANTONIO TYPE: Emergency DIAGNOSES: - Osteomyelitis, unspecified - Foot Wound - shelter (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 - Type 2 diabetes mellitus with other skin complications - rt ft poss infection - Type 1 diabetes mellitus with other skin complications - Local infection of the skin and subcutaneous tissue, unspecified - Type 2 diabetes mellitus with diabetic neuropathy, unspecified - Chronic kidney disease, stage 3b - Unspecified fracture of left foot, subsequent encounter for fracture with delayed healing INPATIENT VISIT TRACKING (12 MO.) 01/20/2022 14:20 [facility] Kamini BERNARD TYPE: Surgical Services DIAGNOSES: - Other chronic osteomyelitis, right ankle and foot - Type 2 diabetes mellitus with other skin complications - terminal carman (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 - Chronic kidney disease, stage 3b - Osteomyelitis, unspecified - Type 2 diabetes mellitus with diabetic neuropathy, unspecified - Type 1 diabetes mellitus with other skin complications - Other symptoms and signs involving cognitive functions and awareness - Type 2 diabetes mellitus without complications - Acquired absence of right foot - Local infection of the skin and subcutaneous tissue, unspecified - Unspecified fracture of left foot, subsequent encounter for fracture with delayed healing [email or web address]
== END 2022-10-28 00:04 | disposition home or self-care (01) ==
LOC: ED 21:39
DX: E11.69 Type 2 diabetes mellitus with other specified complication (principal); M86.9 Osteomyelitis, unspecified; L89.894 Pressure ulcer of other site, stage 4; I10 Essential (primary) hypertension; Z53.29 Procedure and treatment not carried out because of patient's decision for other reasons; Z88.0 Allergy status to penicillin; Z79.4 Long term (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
CPT/HCPCS: 36415; 80053; 85025; 99284

== ENCOUNTER 2022-11-04 15:44 | Emergency (ER) | payer OTHER ==
[~2022-11-04] VITALS: Ht 177.8 cm; Wt 79.0 kg
--- OUTSIDE RECORDS SUMMARY | 2022-11-04 15:46 | XMS ---
PreManage Notification: JO ANN MC Security Radio Sales Account Executive Events 1 event(s) in the past 18 months Most recent security events: Elopement at [facility] 05/20/2021 18:25 - Other Details: PATIENT LWBS CRITERIA MET - [facility] - 2 Visits in 30 Days - Group Notification CARE PROVIDERS KIRSTEN OCONNELL Physician Felt Cementer: Surgical 06/12/2018-Current PHONE: Unknown JUDY GUTIÉRREZ 04/01/2019-Current PHONE: [facility] [facility] PHONE: [phone] Kika has no Care Guidelines for this patient. Care History Medical/Surgical 01/13/2021 [facility] - CHW CONTACTED PHILIP LILLYAMUSEMENT RIDE INSPECTOR AT [facility]- - PATIENT IS NOT FOLLOWING UP WITH PCP - PCP HAS REFERRED PATIENT TO DIABETIC EDUCATION AT [facility] 06/17/2020 [facility] - PATIENT HAS NO SHOWED TO APTS AT [facility]-LAST APT WITH PCP WAS ON 10/10/2019. - SERVICES AT [facility] HAVE MADE ATTEMPTS TO CONTACT PATIENT BUT NUMBER PROVIDED IS NO LONGER IN SERVICE. - PHILIP LILLYAMUSEMENT RIDE INSPECTOR AT [facility] WILL CONTACT PCP AND SEE IF FURTHER FOLLOW UP CAN BE DONE WITH PATIENT. 10/07/2019 [facility] - CHW CONTACTED AMUSEMENT RIDE INSPECTOR PHILIP AT [facility]- REQUESTED RECENT ED RECORDS TO REQUEST AN ENT REFERRAL FOR PATIENT. - CHW SENT OVER REQUESTED RECORDS FOR ENT REFERRAL REQUEST. - PHILIP LILLYAMUSEMENT RIDE INSPECTOR WILL CONTACT PATIENT FOR FURTHER FOLLOW UP. E.D. VISIT COUNT (12 MO.) 3 [facility] 4 [facility] TOTAL 7 NOTE: Visits indicate total known visits. 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 - Osteomyelitis, unspecified - Pressure ulcer of other site, stage 4 - Allergy status to penicillin 10/12/2022 10:14 [facility] TYPE: Emergency COMPLAINT: - R FOOT WOUND DIAGNOSES: - Essential (primary) hypertension - Allergy status to penicillin - Type 2 diabetes mellitus without complications - Osteomyelitis, unspecified - Acquired absence of left leg below knee - watermelon harvesting supervisor (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 - Unspecified open wound, right foot, initial encounter 04/30/2022 09:06 [facility] [place] TYPE: Emergency COMPLAINT: - WOUND CARE DIAGNOSES: - Essential (primary) hypertension - Non-pressure chronic ulcer of other part of right foot with unspecified severity - Other termite renewal inspector (current) drug therapy - care home (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 - Allergy status to penicillin - Type 2 diabetes mellitus without complications 03/28/2022 16:30 [facility] Marilyn BERNARD TYPE: Emergency DIAGNOSES: - Foot Wound - foot infection - Osteomyelitis, unspecified 03/25/2022 14:58 [facility] DIAGNOSES: - Abnormal Lab - Osteomyelitis, unspecified - MRI on foot per His Childers 01/20/2022 14:20 [facility] DIAGNOSES: - Type 2 diabetes mellitus with diabetic neuropathy, unspecified - Chronic kidney disease, stage 3b - Unspecified fracture of left foot, subsequent encounter for fracture with delayed healing - Osteomyelitis, unspecified - Foot Wound - care home (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 - Type 2 diabetes mellitus with other skin complications - rt ft poss infection - Type 1 diabetes mellitus with other skin complications - Local infection of the skin and subcutaneous tissue, unspecified INPATIENT VISIT TRACKING (12 MO.) 01/20/2022 14:20 [facility] Services DIAGNOSES: - Acquired absence of right foot - Local infection of the skin and subcutaneous tissue, unspecified - Unspecified fracture of left foot, subsequent encounter for fracture with delayed healing - Other chronic osteomyelitis, right ankle and foot - Type 2 diabetes mellitus with other skin complications - 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
[2022-11-05] MEDS ORDERED: BACTRIM DS TAB1 EACH PO (00:55)
== END 2022-11-05 01:07 | disposition home or self-care (01) ==
LOC: ED 15:44
DX: E11.52 Type 2 diabetes mellitus with diabetic peripheral angiopathy with gangrene (principal); I96 Gangrene, not elsewhere classified; N39.0 Urinary tract infection, site not specified; I12.9 Hypertensive chronic kidney disease with stage 1 through stage 4 chronic kidney disease, or unspecified chronic kidney disease; E11.22 Type 2 diabetes mellitus with diabetic chronic kidney disease; N18.9 Chronic kidney disease, unspecified; D64.9 Anemia, unspecified; Z88.0 Allergy status to penicillin; Z79.4 Long term (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
CPT/HCPCS: 36415; 36430; 51701; 80048; 80053; 81001; 85025; 85610; 86850; 86900; 86901; 86922; 87040; 99284-25; J3370; J7121; P9016

== ENCOUNTER 2022-12-30 12:07 | Emergency (ER) | payer OTHER ==
[~2022-12-30] VITALS: Ht 177.8 cm; Wt 59.0 kg
--- OUTSIDE RECORDS SUMMARY | 2022-12-30 12:10 | XMS ---
PreManage Notification: JO ANN MC Security English And Reading Instructor Events 1 event(s) in the past 18 months Most recent security events: Elopement at [facility] 10/27/2022 21:40 - Patient eloped before treatment completed. - Patient with suicidal and/or homicidal ideations eloped. - Patient eloped with IV in place. Details: Patient left AMA CRITERIA MET - Group Notification CARE PROVIDERS -Gavni- Dentist: Olive Brine Tester [facility] PHONE: [phone] KIRSTEN OCONNELL Physician Derrick Man: Surgical 06/12/2018-Current PHONE: Unknown JUDY GUTIÉRREZ Physician 04/01/2019-Current PHONE: Unknown [facility]/[place] 10/11/2019-[facility] PHONE: [phone] Kika has no Care Guidelines for this patient. Care History Medical/Surgical 01/13/2021 [facility] - W CONTACTED PHILIP LILLYCOMMUNITY OUTREACH COORDINATOR AT [facility]- - PATIENT IS NOT FOLLOWING UP WITH PCP - PCP HAS REFERRED PATIENT TO DIABETIC EDUCATION AT [facility] 06/17/2020 [facility] - PATIENT HAS NO SHOWED TO APTS AT [facility]-LAST APT WITH PCP WAS ON 10/10/2019. - SERVICES AT [facility] HAVE MADE ATTEMPTS TO CONTACT PATIENT BUT NUMBER PROVIDED IS NO LONGER IN SERVICE. - PHILIP LILLYCOMMUNITY OUTREACH COORDINATOR AT [facility] WILL CONTACT PCP AND SEE IF FURTHER FOLLOW UP CAN BE DONE WITH PATIENT. 10/07/2019 [facility] - W CONTACTED COMMUNITY OUTREACH COORDINATOR PHILIP AT [facility]- REQUESTED RECENT ED RECORDS TO REQUEST AN ENT REFERRAL FOR PATIENT. - CHW SENT OVER REQUESTED RECORDS FOR ENT REFERRAL REQUEST. - PHILIP LILLYCOMMUNITY OUTREACH COORDINATOR WILL CONTACT PATIENT FOR FURTHER FOLLOW UP. E.D. VISIT COUNT (12 MO.) 3 [facility] T[facility] NOTE: Visits indicate total known visits. 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 - Urinary tract infection, site not specified - Hypertensive chronic kidney disease with stage 1 through stage 4 chronic kidney disease, or unspecified chronic kidney disease - Allergy status to penicillin - Gangrene, not elsewhere classified - Type 2 diabetes mellitus with diabetic chronic kidney disease 10/27/2022 21:40 [facility] TYPE: Emergency COMPLAINT: - WOUND CHECK DIAGNOSES: - Type 2 diabetes mellitus with other specified complication - Procedure and treatment not carried out because of patient's decision for other reasons - care home (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 - Osteomyelitis, unspecified - Pressure ulcer of other site, stage 4 - Allergy status to penicillin - Dizziness and giddiness - Essential (primary) hypertension 10/12/2022 10:14 SHANT[facility] Lugo [facility] TYPE: Emergency COMPLAINT: - R FOOT WOUND DIAGNOSES: - Allergy status to penicillin - Type 2 diabetes mellitus without complications - Osteomyelitis, unspecified - Acquired absence of left leg below knee - care home (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 - Unspecified open wound, right foot, initial encounter - Essential (primary) hypertension 04/30/2022 09:06 SHANT[facility] Lugo [facility] TYPE: Emergency COMPLAINT: - WOUND CARE DIAGNOSES: - Non-pressure chronic ulcer of other part of right foot with unspecified severity - Other detention (current) drug therapy - care home (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 - Allergy status to penicillin - Type 2 diabetes mellitus without complications - Essential (primary) hypertension 03/28/2022 16:30 [facility] Marilyn BERNARD TYPE: Emergency DIAGNOSES: - foot infection - Osteomyelitis, unspecified - Foot Wound 03/25/2022 14:58 [facility] Marilyn BERNARD TYPE: Emergency DIAGNOSES: - Osteomyelitis, unspecified - MRI on foot per His Childers - Abnormal Lab 01/20/2022 14:20 [facility] Marilyn BERNARD TYPE: Emergency DIAGNOSES: - Osteomyelitis, unspecified - Foot Wound - 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 (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 - Type [...] delayed healing INPATIENT VISIT TRACKING (12 MO.) 11/09/2022 10:22 [facility] DIAGNOSES: - Chronic kidney disease, stage 4 (severe) - 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 - Dementia in other diseases classified elsewhere, unspecified severity, without behavioral disturbance, psychotic disturbance, mood disturbance, and anxiety - Type 2 diabetes mellitus with other diabetic neurological complication - care home (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 - Sepsis, unspecified organism - Acquired absence of right foot - Acquired absence of right leg below knee - Subacute osteomyelitis, right ankle and foot - Metabolic encephalopathy - Hypoglycemia, unspecified - Osteomyelitis, unspecified - Encephalopathy, unspecified - Abnormal weight loss - 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, unspecified lower leg, initial encounter - Gangrene, not elsewhere classified - Type 2 diabetes mellitus without complications - Acute cystitis with hematuria - Acquired absence of left leg below knee 01/20/2022 14:20 [facility] DIAGNOSES: - Other chronic osteomyelitis, right ankle and foot - Type 2 diabetes mellitus with other skin complications - 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
[2022-12-30] MEDS ORDERED: FEROSUL325 MG PO (12:23)
[2022-12-30] MEDS ORDERED: ACETAMINOPHEN325 M1 PO (12:23)
[2022-12-30] MEDS ORDERED: INSULIN LI100 UNIT/2 SUB-Q (12:24)
[2022-12-30] MEDS ORDERED: MELATONIN3 MG PO (12:24)
[2022-12-30] MEDS ORDERED: LO-DOSE ASPIRIN81 MG PO (12:24)
[2022-12-30] MEDS ORDERED: TAMSULOSIN HCL0.4 MG PO (12:24)
[2022-12-30] MEDS ORDERED: TRAMADOL HCL50 MG PO (12:24)
[2022-12-30] MEDS ORDERED: SENNA LAXATIVE8.6 MG PO (12:24)
== END 2022-12-30 13:14 | disposition home or self-care (01) ==
LOC: ED 12:07
DX: S00.81XA Abrasion of other part of head, initial encounter (principal); E11.9 Type 2 diabetes mellitus without complications; I10 Essential (primary) hypertension; Z88.0 Allergy status to penicillin; Z79.899 Other long term (current) drug therapy; Z79.4 Long term (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; Z79.82 Long term (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 of aspirin; W05.0XXA Fall from non-moving wheelchair, initial encounter
CPT/HCPCS: 99283

== ENCOUNTER 2023-01-04 09:35 | Emergency (ER) | payer OTHER ==
[~2023-01-04] VITALS: Ht 177.8 cm; Wt 59.0 kg
[~2023-01-04 09:35] MED LIST changes: +ACETAMINOPHEN325 M1 PO; +FEROSUL325 MG PO; +INSULIN LI100 UNIT/2 SUB-Q; +MELATONIN3 MG PO; +SENNA LAXATIVE8.6 MG PO; +TAMSULOSIN HCL0.4 MG PO
--- OUTSIDE RECORDS SUMMARY | 2023-01-04 09:37 | XMS ---
PreManage Notification: JO ANN MC Security Director Apparel Events 1 event(s) in the past 18 months Most recent security events: Elopement at [facility] 10/27/2022 21:40 - Patient eloped before treatment completed. - Patient with suicidal and/or homicidal ideations eloped. - Patient eloped with IV in place. Details: Patient left AMA CRITERIA MET - [facility] - 2 Visits in 30 Days - Group Notification CARE PROVIDERS -Gavin- Dentist: Etl Consultant [facility] PHONE: [phone] KIRSTEN OCONNELL Physician Dolphin Researcher: Surgical 06/12/2018-Current PHONE: Unknown JUDY GUTIÉRREZ Physician Dolphin Researcher 04/01/2019-Current PHONE: Unknown [facility]/[place] 10/11/2019-[facility] PHONE: [phone] Kika has no Care Guidelines for this patient. Care History Medical/Surgical 01/13/2021 [facility] - W CONTACTED PHILIP LILLYRESEARCH SCHOLAR AT [facility]- - PATIENT IS NOT FOLLOWING UP WITH PCP - PCP HAS REFERRED PATIENT TO DIABETIC EDUCATION AT [facility] 06/17/2020 [facility] - PATIENT HAS NO SHOWED TO APTS AT [facility]-LAST APT WITH PCP WAS ON 10/10/2019. - SERVICES AT [facility] HAVE MADE ATTEMPTS TO CONTACT PATIENT BUT NUMBER PROVIDED IS NO LONGER IN SERVICE. - PHILIP LILLYRESEARCH SCHOLAR AT [facility] WILL CONTACT PCP AND SEE IF FURTHER FOLLOW UP CAN BE DONE WITH PATIENT. 10/07/2019 [facility] - W CONTACTED RESEARCH SCHOLAR PHILIP AT [facility]- REQUESTED RECENT ED RECORDS TO REQUEST AN ENT REFERRAL FOR PATIENT. - CHW SENT OVER REQUESTED RECORDS FOR ENT REFERRAL REQUEST. - PHILIP LILLYRESEARCH SCHOLAR WILL CONTACT PATIENT FOR FURTHER FOLLOW UP. E.D. VISIT COUNT (12 MO.) 3 [facility] 6 [facility] TOTAL 9 NOTE: Visits indicate total known visits. ED/UCC VISIT TRACKING (12 MO.) 01/04/2023 09:35 [facility]ANTI Lugo [place] TYPE: Emergency COMPLAINT: - ABD PAIN 12/30/2022 12:09 SHANT[facility]o [place] TYPE: Emergency COMPLAINT: - FALL DIAGNOSES: - Fall from non-moving wheelchair, initial encounter - Other half-way (current) drug therapy - Type 2 diabetes mellitus without complications - terminal make up operator (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 of aspirin - Allergy status to penicillin - Essential (primary) hypertension - Abrasion of other part of head, initial encounter - terminal make up operator (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 - Unspecified injury of head, initial encounter 11/04/2022 15:44 [facility] Lugo [facility] TYPE: Emergency COMPLAINT: - LEG PAIN DIAGNOSES: - Type 2 diabetes mellitus with diabetic chronic kidney disease - Type 2 diabetes mellitus with diabetic peripheral angiopathy with gangrene - Chronic kidney disease, unspecified - Anemia, unspecified - senior care (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 - Urinary tract infection, site not specified - Hypertensive chronic kidney disease with stage 1 through stage 4 chronic kidney disease, or unspecified chronic kidney disease - Allergy status to penicillin - Gangrene, not elsewhere classified 10/27/2022 21:40 [facility]ANT[facility] Lugo [facility] TYPE: Emergency COMPLAINT: - WOUND CHECK DIAGNOSES: - Essential (primary) hypertension - Type 2 diabetes mellitus with other specified complication - Procedure and treatment not carried out because of patient's decision for other reasons - terminal make up operator (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 - Osteomyelitis, unspecified - Pressure ulcer of other site, stage 4 - Allergy status to penicillin - Dizziness and giddiness 10/12/2022 10:14 [facility]o [facility] TYPE: Emergency COMPLAINT: - R FOOT WOUND DIAGNOSES: - Allergy status to penicillin - Type 2 diabetes mellitus without complications - Osteomyelitis, unspecified - Acquired absence of left leg below knee - senior care (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 - Unspecified open wound, right foot, initial encounter - Essential (primary) hypertension 04/30/2022 09:06 SHANTI Lugo [place] TYPE: Emergency COMPLAINT: - WOUND CARE DIAGNOSES: - Non-pressure chronic ulcer of other part of right foot with unspecified severity - Other half-way (current) drug therapy - senior care (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 - Allergy status to penicillin - Type 2 diabetes mellitus without complications - Essential (primary) hypertension 03/28/2022 16:30 [facility] DIAGNOSES: - foot infection - Osteomyelitis, unspecified - Foot Wound 03/25/2022 14:58 [facility] DIAGNOSES: - Osteomyelitis, unspecified - MRI on foot per His Childers - Abnormal Lab 01/20/2022 14:20 [facility] Marilyn BERNARD TYPE: Emergency DIAGNOSES: - Unspecified fracture of left foot, subsequent encounter for fracture with delayed healing - Osteomyelitis, unspecified - Foot Wound - senior care (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 - Type 2 diabetes mellitus with other skin complications - rt ft poss infection - Type 1 diabetes mellitus with other skin complications - Local infection of the skin and subcutaneous tissue, unspecified - Type 2 diabetes mellitus with diabetic neuropathy, unspecified - Chronic kidney disease, stage 3b INPATIENT VISIT TRACKING (12 MO.) 11/09/2022 10:22 [facility] Marilyn BERNARD TYPE: Surgical Services DIAGNOSES: - Acute cystitis with hematuria - Acquired absence of left leg below knee - Chronic kidney disease, stage 4 (severe) - 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 - Dementia in other diseases classified elsewhere, unspecified severity, without behavioral disturbance, psychotic disturbance, mood disturbance, and anxiety - Type 2 diabetes mellitus with other diabetic neurological complication - senior care (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 - Sepsis, unspecified organism - Acquired absence of right foot - Acquired absence of right leg below knee - Subacute osteomyelitis, right ankle and foot - Metabolic encephalopathy - Hypoglycemia, unspecified - Osteomyelitis, unspecified - Encephalopathy, unspecified - Abnormal weight loss - 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 Kamini BERNARD TYPE: Surgical Services DIAGNOSES: - Unspecified fracture of left foot, subsequent encounter for fracture with delayed healing - Other chronic osteomyelitis, right ankle and foot - Type 2 diabetes mellitus with other skin complications - senior care (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 - Chronic kidney [...] of the skin and subcutaneous tissue, unspecified [email or web address]
--- NOTE | 2023-01-04 20:14 | EKG ---
[facility] [address] [place] [address] Signed Sinus tachycardia with fusion complexes Septal infarct , age undetermined Abnormal ECG When compared with ECG of 15-JAN-2021 21:43, fusion complexes are now present Septal infarct is now present Confirmed by Adelina San MD () on 01/04/2023 8:14:35 PM Electronically Signed By: ADELINA SAN MD 01/04/232013 PATIENT NAME: JO ANN MC Electrocardiogram DATE OF : 69 PHYSICIAN: ADELINA SAN MD REPORT #: [id number] REPORT IS CONFIDENTIAL AND NOT TO BE RELEASED WITHOUT AUTHORIZATION
== END 2023-01-04 14:40 | disposition short-term general hospital (02) ==
LOC: ED 09:35
DX: N17.9 Acute kidney failure, unspecified (principal); E87.5 Hyperkalemia; E11.9 Type 2 diabetes mellitus without complications; I10 Essential (primary) hypertension; Z88.0 Allergy status to penicillin; Z79.899 Other long term (current) drug therapy; Z79.4 Long term (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; Z79.82 Long term (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 of aspirin; Z20.822 Contact with and (suspected) exposure to COVID-19
CPT/HCPCS: 36415; 51702; 70450; 71045; 80048; 80053; 81001; 83605; 83690; 83735; 85025; 87502; 93005; 93010; 99285-25; C9803; G0480; J0696; J1815; J7030; U0003